=== PATIENT | female | born 1935 | race Caucasian/White ===

== ENCOUNTER → 2017-01-15 | Outpatient (CLI) | payer BC ==
[~2017-01-15] MED LIST: ALBU1AER9 INH; ASPCH81X PO; ATOR10TA82 PO; CHOL2000 PO; FLUT0.15; GLIM1TAB PO; LEVO100T7 PO; LSN/10125 PO; METF-383 PO; VRPSR180 PO; ZINC PO
--- NOTE | 2017-01-15 16:09 | MAMMOGRAPHY REPORT ---
BILATERAL DIGITAL SCREENING MAMMOGRAM WITH CAD: 01/15/2017 CLINICAL HISTORY: Routine screening. Patient has no complaints. TECHNIQUE: Current study was also evaluated with a Computer Aided Detection (CAD) system. Bilatera l CC and MLO views were obtained. COMPARISON: Comparison is made to exams dated: 01/14/2016 mammogram, 01/11/2015 mammogram, 11/15/2013 mammogram, 11/11/2011 mammogram, 11/14/2012 mammogram, and 11/10/2010 mammogram - [facility]. BREAST COMPOSITION: There are scattered areas of fibroglandular density in both breasts. FINDINGS: No suspicious masses, calcifications, or areas of architectural distortion are noted in e ither breast. There has been no significant interval change compared to prior exams. There is a sta ble benign intramammary lymph node within the left superior breast. IMPRESSION: ACR BI-RADS CATEGORY 2: BENIGN There is no mammographic evidence of malignancy. A 1 year screening mammogram is recommended. The p atient will receive written notification of the results. Approximately 10% of breast cancers are not detected with mammography. A negative mammographic repor t should not delay biopsy if a clinically suggestive mass is present. Rachel Clements M.D. /:01/15/2017 15:53:53 Die Hardener: Nayana Car, [facility] letter sent: Normal 1/2 BI-RADS Code: ACR BI-RADS Category 2: Benign
== END | disposition home or self-care (01) ==
LOC: C.MAMM 13:11
PROVIDERS: ATTEND Family Medicine
DX: Z12.31 Encounter for screening mammogram for malignant neoplasm of breast (principal)

== ENCOUNTER → 2018-01-17 | Outpatient (CLI) | payer BC ==
--- NOTE | 2018-01-18 12:45 | MAMMOGRAPHY REPORT ---
BILATERAL DIGITAL SCREENING MAMMOGRAM TOMOSYNTHESIS WITH CAD: 01/17/2018 CLINICAL HISTORY: Routine screening. Patient has no complaints. TECHNIQUE: Breast tomosynthesis in addition to standard 2D mammography was performed. Current study was also evaluated with a Computer Aided Detection (CAD) system. COMPARISON: Comparison is made to exams dated: 01/15/2017 mammogram, 01/14/2016 mammogram, 01/11/2015 m ammogram, 11/15/2013 mammogram, 11/14/2012 mammogram, and 11/11/2011 mammogram - [facility]. BREAST COMPOSITION: There are scattered areas of fibroglandular density in both breasts. FINDINGS: There is a gently lobulated and circumscribed 15 mm mass in the 12:00 posterior left breas t. This most likely represents an intramammary lymph node but appears slightly increased in size on the current exam when comparing to all available prior exams dating back to at least 2008, at which t hailee it measured approximately 12 mm. Although the differences may be due to positioning and technica l parameters, further characterization with targeted ultrasound and possible additional mammographic views are recommended. There are benign coarse calcifications in the left breast and minimal vascular calcification bilatera lly. No other suspicious mass, architectural distortion or cluster of microcalcifications is seen. IMPRESSION: ACR BI-RADS CATEGORY 0: INCOMPLETE EVALUATION: NEED ADDITIONAL IMAGING EVALUATION The 15 mm lymph node in the 12:00 left breast, which is possibly increased comparing to prior mammogr ams, needs additional evaluation. The patient will be called to schedule an appointment. Approximately 10% of breast cancers are not detected with mammography. A negative mammographic report should not delay biopsy if a clinically suggestive mass is present. Jennifer Del Real M.D. ay/:01/17/2018 15:53:46 Immigration Lawyer: Nayana ELIAS(Greg)(Elisa), [facility] letter sent: Addl Imaging 0 BI-RADS Code: ACR BI-RADS Category 0: Incomplete Evaluation: Need Additional Imaging Evaluation
== END | disposition home or self-care (01) ==
LOC: C.MAMM 13:23
PROVIDERS: ATTEND Family Medicine
DX: Z12.31 Encounter for screening mammogram for malignant neoplasm of breast (principal); R59.0 Localized enlarged lymph nodes

== ENCOUNTER → 2018-01-26 | Outpatient (CLI) | payer BC ==
--- NOTE | 2018-01-28 07:50 | MAMMOGRAPHY REPORT ---
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 COMPARISON: Comparison is made to exams dated: 01/17/2018 mammogram, 01/15/2017 mammogram, 01/14/2016 m ammogram, 01/11/2015 mammogram, 11/15/2013 mammogram, and 11/14/2012 mammogram - [facility]. FINDINGS: Targeted ultrasound was performed in the superior left breast from the 11:00 through 2:00 a xes, with particular attention to the 12:00 left breast in the area of lobulated and circumscribed ma mmographic mass which was found to measure 16 x 6 x 7 mm on the current screening mammogram. There i s a morphologically normal lymph node in the left axilla measuring 10 mm, within the cortex of 1 mm. A serpiginous tubular vessel is identified in the 12:00 left breast approximately 6 cm from the nipp le but no obvious mass is identified. Overall there is no hypoechoic mass suggestive of malignancy. After the patient left the department review of prior electronic medical records revealed the patient had a prior hemangioma in the left breast which was surgically excised and this was reportedly ultra sound occult. When comparing back to prior available mammograms, this current lobulated and circumscribed mass was present dating back to at least 2007 but has minimally increased in size. It was found to measure 14 mm in AP dimension on a spot compression view performed 05/09/2008. IMPRESSION: ACR-BI-RADS CATEGORY 3: PROBABLY BENIGN - FOLLOW-UP RECOMMENDED There is a gently lobulated and circumscribed 16mm mass in the 12:00 posterior left breast mammograph ically that has minimally increased in size over the past 10 years based on prior mammograms. It is not identified on ultrasound but was previously reportedly ultrasound occult. This most likely repre sents recurrent and/or residual hemangioma which is a benign mass. Therefore, a short interval follo w-up left diagnostic tomosynthesis mammogram is recommended to ensure stability, given the possible s low interval increase over years. These results and recommendations were discussed with the patient and her daughter at the time of the exam. They tentatively scheduled a follow-up appointment prior to leaving the department. Jennifer Del Real M.D. ay/:01/26/2018 15:57:52 Detective Private Eye: Raegan SCHAFER)Enrique), [facility] letter sent: Follow Up Recommended 3 BI-RADS Code: ACR-BI-RADS Category 3: Probably Benign
== END | disposition home or self-care (01) ==
LOC: C.MAMM 12:52
PROVIDERS: ATTEND Family Medicine
DX: N63.20 Unspecified lump in the left breast, unspecified quadrant (principal)

== ENCOUNTER → 2018-04-20 | Outpatient (CLI) | payer BC ==
[~2018-04-20] MED LIST changes: -ALBU1AER9 INH; -ASPCH81X PO; +ASPI81TA28 PO; -ATOR10TA82 PO; -FLUT0.15; +FLUT0.15 NAE; -GLIM1TAB PO; +GLIM2TAB2 PO; -METF-383 PO; +ONDA4TAB10 SL; +VANC5CAP PO; -ZINC PO; +ZINC1TAB PO; +ZNF/4 PO
== END | disposition home or self-care (01) ==
LOC: C.LABSPEC 10:25
PROVIDERS: ATTEND Urology
DX: N39.0 Urinary tract infection, site not specified (principal)

== ENCOUNTER 2018-10-31 13:58 | Inpatient (IN) ==
[2018-10-31] MEDS ORDERED: ALUMINUM/MAGNESIUM SUSP 18 ML, LIDOCAINE HCL VISCOUS 2% 6 ML, BARCODE IDENTIFIER 1 EA PO ONE (15:15)
[2018-10-31] MEDS ORDERED: FAMOTIDINE 20 MG TAB PO ONE (15:15)
[2018-10-31] MEDS ORDERED: ONDANSETRON INJ 2 MG/ML 2 ML VIAL IV STA (15:15)
[2018-10-31 15:59] LABS: Hematocrit (blood only) 34.3 % (37-47); Mean Corpuscular Hgb Conc 32.1 g/dL (32-36); Mean Corpuscular Volume 80.1 fL (80-100); Mean Platelet Volume 10.2 fL (7.4-10.4); Platelet Count 263 K/uL (130-400); RDW Coefficient of Variation 15.3 % (11.5-14.5); RDW Standard Deviation 44.8 fL (36.4-46.3); Red Blood Count 4.28 M/uL (4.2-5.4); White Blood Count 23.91 K/uL (4.8-10.8)
[2018-10-31 16:11] LABS: Alanine Aminotransferase 15 U/L (12-78); Albumin Level 3.8 gm/dl (3.4-5.0); Aspartate Aminotransferase 19 U/L (15-37); BUN Creatinine Ratio 18.4 (10-20); Blood Urea Nitrogen 39 mg/dl (7-18); Calcium 8.9 mg/dl (8.5-10.1); Carbon Dioxide 26 mmol/L (21-32); Chloride 101 mmol/L (98-107); Creatinine Clr Calc Pharmacy 16.2 ml/min; Est GFR (African American) 23.9; Est GFR (Non-African American) 20.6; Glucose 246 mg/dl (70-99); Potassium 4.4 mmol/L (3.5-5.1); Sodium 133 mmol/L (136-145)
[2018-10-31 16:15] LABS: Albumin Globulin Ratio 1.1 (0.9-2); Alkaline Phosphatase 102 U/L (45-117); Bilirubin,Total 0.5 mg/dl (0.2-1); Globulin 3.4 gm/dl (2.5-4.0); Total Protein 7.2 gm/dl (6.4-8.2); Troponin I < 0.015 ng/ml (0-0.045)
[2018-10-31] MEDS ORDERED: SODIUM CHLORIDE 0.9% 1000ML 1,000 ML IV ONE (16:18)
[2018-10-31 16:30] LABS: Basophils # (auto) 0.04 K/uL (0-0.2); Basophils % (auto) 0.2 %; Eosinophils # (auto) 0.14 K/uL (0-0.5); Eosinophils % (auto) 0.6 %; Immature Granulocytes # (auto) 0.14 K/uL (0.00-0.02); Immature Granulocytes % (auto) 0.6 %; Lymphocytes # (auto) 1.52 K/uL (1.2-3.4); Lymphocytes % (auto) 6.4 %; Monocytes # (auto) 1.58 K/uL (0.11-0.59); Monocytes % (auto) 6.6 %; Neutrophils # (auto) 20.49 K/uL (1.4-6.5); Neutrophils % (auto) 85.6 %
[2018-10-31] MEDS ORDERED: LIDOCAINE HCL VISCOUS SOLN 2% 15 ML UDC ONE (16:31)
[2018-10-31] MEDS ORDERED: ALUMINUM/MAGNESIUM SUSP 30 ML UDC ONE (16:32)
--- NOTE | 2018-10-31 17:30 | CT Scan Report ---
CT SCAN OF THE ABDOMEN AND PELVIS WITHOUT IV CONTRAST CLINICAL HISTORY: Epigastric abdominal pain. Leukocytosis. COMPARISON STUDY: Abdominal CT dated 02/21/2018 TECHNIQUE: CT scan of the abdomen and pelvis is performed from the lung bases to the proximal femora. Images are reviewed in the axial, sagittal, and coronal planes. IV contrast was not administered for this examination as per the referring clinician. Note that the examination was performed in signific antly suboptimal fashion without oral and IV contrast. A dose lowering technique was utilized adherin g to the principles of ALARA. CT DOSE: 444.70 mGy.cm FINDINGS: Lung bases: The heart is normal in size and without pericardial effusion. The coronary arteries and m itral annulus are densely calcified. The lung bases are clear noting bibasilar scarring/atelectasis. Liver: The unenhanced liver is normal in size, contour, and attenuation. There is mild central intrah epatic biliary ductal dilatation. Gallbladder: Surgically absent. Spleen: Normal in size and attenuation. Pancreas: The unenhanced pancreas is atrophic and grossly unremarkable. Adrenal glands: Unremarkable. Kidneys: The unenhanced kidneys are atrophic and without hydronephrosis. There are no renal calculi i dentified. There is no evidence of contour deforming renal mass lesion. Abdominal vasculature: The abdominal aorta is normal in course and caliber noting advanced atheroscle rotic calcification. Bowel: There is moderate colonic diverticulosis without CT evidence of acute diverticulitis. No bowel obstruction is identified. Liquid stool is noted throughout the colon. The appendix is well-visuali zed and normal. Peritoneum: There is no intraperitoneal free air or abdominal ascites. Postoperative change is noted in the ventral abdominal wall. Lymphadenopathy: None. Pelvic viscera: The bladder wall is mildly thickened and there is faint pericystic stranding. The malia carlos is surgically absent. No adnexal lesion is seen. Skeletal structures: The skeletal structures are osteopenic. There is moderate lumbosacral spondylosi s and scoliosis. No lytic or blastic lesions are seen. IMPRESSION: 1. Significantly suboptimal examination without oral and IV contrast. 2. Liquid stool is noted throughout the colon. There is no colonic wall thickening or pericolonic inf lammation. Correlate clinically for evidence of a diarrheal illness. 3. Question cystitis. Correlation with clinical findings and urinalysis will be required. 4. Moderate colonic diverticulosis without CT evidence of acute diverticulitis. 5. Additional findings as above. Electronically signed by: Dion Brady M.D. 10/31/2018 5:28 PM
[2018-10-31] MEDS ORDERED: cefTRIAXone SODIUM 1,000 MG/50 ML BAG IV STA (17:44)
[2018-10-31 18:12] LABS: Appearance Urine Turbid (Clear); Bacteria Urine Automated 4+ (Negative); Bilirubin Urine Negative (Negative); Color Urine Yellow; Epithelial Cell Urine Auto >30 /lpf (0-5); Glucose Urine UA Negative (Negative); Ketones Urine Negative (Negative); Leukocyte Esterase Urine 3+ (Negative); Nitrite Urine Negative (Negative); Protein Urine 1+ (Negative); Specific Gravity Urine 1.015 (1.000-1.030); Urobilinogen Urine Negative (Negative); WBC Urine Automated >30 /hpf (0-5); pH Urine 5.5 (4.5-7.5)
--- NOTE | 2018-10-31 19:42 | History & Physical Report ---
Date of Service October 31, 2018 Assessment & Plan (1) UTI (urinary tract infection): This is a 83-year-old female who has a significant past medical history of T2 DM , HTN, HLD, CKD stage III, hypothyroidism who presents to [facility] secondary to nausea, emesis, loose stool times 1 day. In ED patient was noted to have leucocytosis with wbc 23.91k, A/C CKD stage 3 bun 39/Cr 2.14, glucose 236, NA 133. Her troponin, lipase and LFT were unremarkable. She did have mild epigastric discomfort in ED; therefore given Pepcid Urine dirty with leuks and +4 bacturia, microscopic hematuria CT Abd/Pelvis +cystitis, no evidence of colitis or diverticulitis Received 1g rocephin in ED along with 1L IVF -admit to med/surg telemetry -continue IVF NS at 80cc/hr -check stool for cdiff -await urine culture/blood culture -add probiotic -continue IVF 80cc/hr x 1 L -repeat cbc, bmp in a.m. (2) Acute worsening of stage 3 chronic kidney disease: -baseline Cr 1.2 -Bun/Cr today 39 and 2.14 -likely in setting of pre renal, GI loss -hold lisinopril/hctz -Received 1L IVF IN ED; will continue IVF NS 80cc/hr x 1 additonal liter -repeat bmp in a.m. (3) Generalized weakness: -consult PT/OT (4) T2DM (type 2 diabetes mellitus): -A1C 7.1 on 09/08/18 -Novolog sliding scale per protocol -Nursing did accucheck at 1940 bsg 134 (5) HTN (hypertension): -blood pressure on low side this evening -will hold lisinopril/hctz given CRISPIN, continue verapamil with parameters -monitor (6) Hypothyroidism: -continue levothyroxine (7) DVT prophylaxis: -Heparin SQ 5,000 units Q12hr Disposition: likely discharge to home when able but will consult case management Follow up: PCP Dr. Pina upon discharge Patient was seen in collaboration with Dr. Dennis, please see addendum Starting 10/31/18 patient will be followed by Dr. Farrar History of Present Illness Chief Complaint: Nausea, emesis, loose stool x 1 day. Primary Care Provider: Luis Whalen This is a 83-year-old female who has a significant past medical history of T2 DM , HTN, HLD, CKD stage III, hypothyroidism who presents to [facility] secondary to nausea, emesis, loose stool times 1 day. Patient was in her normal state of health until 11 AM today when she developed nausea, dry heaves, emesis x1 and loose stool x1. "It was coming out both ends." "Why does this always come on so sudden?" Pt has history of UTI in past and follows Dr. Harrington urology who recently started her on flomax. She hasn't had episode in 4- 5 months. Last time she had similar sx she was dx with cdiff after a UTI treatment. She states usually when she gets a UTI she is asymptomatic. She denies f/c/s, dizziness, lightheaded, chest pain, sob, palpitations, hemetemesis , hemoptysis, abdominal pain, dysuria, hematuria, flank pain, increased urg/ freq with urination, melena. Episode of loose stool was x 1. Daughter is at bedside. Allergies Allergy/AdvReac Type Severity Reaction Status Date / Time Bactrim Allergy Intermediate Rash Verified 02/21/18 20:57 sulfamethoxazole Allergy Intermediate Rash Verified 10/31/18 15:56 trimethoprim Allergy Intermediate Rash Verified 10/31/18 15:56 tetanus toxoid, adsorbed Allergy Unknown HIVES Verified 10/31/18 15:56 tetracycline Allergy Unknown hives Verified 10/31/18 15:56 rosuvastatin AdvReac Intermediate Muscle Verified 10/31/18 15:56 stiffness Home Medications Home Medications Medication Instructions Recorded Confirmed Type aspirin [Aspirin Low Dose] 81 mg PO 3XWK 10/31/18 10/31/18 History cholecalciferol (vitamin D3) 2,000 unit PO DAILY 10/31/18 10/31/18 History [Vitamin D3] escitalopram oxalate 10 mg PO DAILY 10/31/18 10/31/18 History fluticasone [Flonase Allergy 2 spray INTRANASAL HS 10/31/18 10/31/18 History Relief] glimepiride 2 mg PO BID 10/31/18 10/31/18 History levothyroxine 100 mcg PO DAILY 10/31/18 10/31/18 History lisinopril-hydrochlorothiazide 1 tab PO DAILY 10/31/18 10/31/18 History tamsulosin [Flomax] 0.4 mg PO HS 10/31/18 10/31/18 History tizanidine 4 mg PO HS 10/31/18 10/31/18 History verapamil 180 mg PO DAILY 10/31/18 10/31/18 History zinc gluconate 12.5 mg PO DAILY 10/31/18 10/31/18 History Past Med/Surg History Family History Mother Breast cancer HTN (hypertension) Father , at 92 No problems noted. Social History Current Living Situation: Alone Other Information That Helps Us Care for You: No other: ambulates with cane Feels Safe at Home: Yes Safety Concerns: Feels Safe At This Time Smoking Status: Never smoker Do You Dip or Chew Tobacco: No Hx Alcohol Use: No Hx Substance Use: No Beliefs That Will Affect Care: Confucianist Confucianist Beliefs: Druze Preferred Language: Citizen Of [place] Communication Ability: Effective Adjunct Phlebotomy Instructor Required: No Review of Systems All systems reviewed & are unremarkable except as noted in HPI & below Physical Exam 2 Vital Signs (Past 24 Hours): Last Vital Signs Temp 36.4 C L 10/31/18 14:07 Pulse 66 10/31/18 18:00 Resp 17 10/31/18 18:00 BP 108/72 10/31/18 18:00 Pulse Ox 90 10/31/18 16:30 Physical Exam: Gen: Petite, elderly F, WD/WN, NAD, sitting up in bed, pleasant , conversing easily Head: Normocephalic, Atraumatic Eyes: Sclera normal, no conjunctival injection, PERRLA, EOMI ENT: Gross hearing intact, normal pharynx, mucous membranes moist Neck: supple, no adenopathy, No JVD, no bruit, Resp: Clear to auscultation b/l, no wheeze, rales, rhonchi. Normal insp/exp effort, no accessory muscle use CV: Regular rate, regular rhythm, soft 1/6 MAXWELL noted LUSB with radiation to L axilla, no rub, gallop, or ectopy Abd: +BS x 4, soft, nontender, mildly distended, no cva tenderness Musculoskeletal: moves extremities active rom x 4, strength intact, good document control clerk strength Extremities: No edema bilaterally Skin: warm, moist, no rash, moderate turgor, cap refill < 2sec Neuro: Alert and oriented x 3, speech normal, good mood/affect, cran nerve 2-12 intact grossly : deferred Results & Data Laboratory Results Short CBC 10/31/18 10/31/18 Range/Units 15:40 15:40 WBC 23.91 H (4.8-10.8) K/uL Hgb 11.0 L (12.0-16.0) g/dL Hct 34.3 L (37-47) % Plt Count 263 (130-400) K/uL Creatinine 2.14 H (0.6-1.2) mg/dl Glucose 246 H (70-99) mg/dl BMP 10/31/18 15:40 Sodium 133 L Potassium 4.4 Chloride 101 Carbon Dioxide 26 BUN 39 H Creatinine 2.14 H Glucose 246 H Calcium 8.9 Cardiac Enzymes 10/31/18 Range/Units 15:40 Troponin I < 0.015 (0-0.045) ng/ml Liver Function 10/31/18 Range/Units 15:40 Total Bilirubin 0.5 (0.2-1) mg/dl AST 19 (15-37) U/L ALT 15 (12-78) U/L Alkaline Phosphatase 102 (45-117) U/L Albumin 3.8 (3.4-5.0) gm/dl Urine 10/31/18 Range/Units 17:50 Urine Color Yellow Urine Appearance Turbid H (Clear) Urine pH 5.5 (4.5-7.5) Ur Specific [place] 1.015 (1.000-1.030) Urine Protein 1+ H (Negative) Urine Glucose (UA) Negative (Negative) Diagnostic Findings CT Abd/pelvis: IMPRESSION: 1. Significantly suboptimal examination without oral and IV contrast. 2. Liquid stool is noted throughout the colon. There is no colonic wall thickening or pericolonic inflammation. Correlate clinically for evidence of a diarrheal illness. 3. Question cystitis. Correlation with clinical findings and urinalysis will be required. 4. Moderate colonic diverticulosis without CT evidence of acute diverticulitis. 5. Additional findings as above. ECG Rate (beats per minute): 74 Rhythm: sinus with SA Findings: + left axis deviation Code Status & VTE Plan Code Status Full Code VTE Prophylaxis Plan VTE Prophylaxis will be ordered: Yes Supervising Physician Co-Signing Physician Notes Agree with above H and P. Briefly 83F with hx of recurrent uti follows with urology and hx of c diff post uti treatment presnts with episode of nausea and one episode of vomiting nad diarrhea. No Badominal pain. Afebrile. No chest pain or sob.Found to have UTI in Er. p/e ge not in distress Cvs s1 and s2 heard no murmurs Rs cta b/l no added sounds Abd benign Compensation And Benefits Manager non focal Ext no erythema Labs: Reviewed. A/P Uti cystitis on ct scan Rocephin follow cx leukocytosis wbc 24 on abx as abobe for uti hx of c diff check for c diff _ (1) UTI (urinary tract infection) Hematuria presence: with hematuria Urinary tract infection type: acute cystitis Qualified Code(s): N30.01 - Acute cystitis with hematuria (2) T2DM (type 2 diabetes mellitus) Chronic kidney disease stage: stage 3 (moderate) Diabetes mellitus complication detail: with chronic kidney disease Diabetes mellitus complication status: with kidney complications Diabetes mellitus dedicated intermodal truck driver insulin use: without dedicated intermodal truck driver use Qualified Code(s): E11.22 - Type 2 diabetes mellitus with diabetic chronic kidney disease; N18.3 - Chronic kidney disease, stage 3 (moderate) (3) Hypothyroidism Hypothyroidism type: unspecified Qualified Code(s): E03.9 - Hypothyroidism, unspecified (4) HTN (hypertension) Hypertension type: essential hypertension Qualified Code(s): I10 - Essential (primary) hypertension
[2018-10-31] MEDS ORDERED: ACETAMINOPHEN 325 MG TAB PO PRN (21:39)
[2018-10-31] MEDS ORDERED: CARBOHYDRATES FOR HYPOGLYCEMIA PO PRN (21:39)
[2018-10-31] MEDS ORDERED: GLUCOSE 40% GEL 15 GM TUBE PO PRN (21:39)
[2018-10-31] MEDS ORDERED: ONDANSETRON INJ 2 MG/ML 2 ML VIAL IV PRN (21:39)
[2018-10-31] MEDS ORDERED: DEXTROSE 50% 50 ML SYRINGE IV PRN (21:39)
[2018-10-31] MEDS ORDERED: GLUCOSE 10 TABS/TUBE PO PRN (21:39)
[2018-10-31] MEDS ORDERED: GLUCAGON FOR INJ 1 MG VIAL SQ PRN (21:39)
[2018-10-31] MEDS ORDERED: SODIUM CHLORIDE 0.9% 1000ML 1,000 ML IV SCH (22:30)
--- NOTE | 2018-10-31 22:30 | Emergency Department Note ---
Entered by Darain Morris acting as a scribe for History of Present Illness General Chief complaint: Flu Like Symptoms Stated complaint: THROWING UP, DIARRHEA,SHAKEY Time Seen by Provider: 10/31/18 14:52 Source: patient and family (daughter) History of Present Illness Provider complaint: flu-like symptoms Onset (ago): day(s) (today around 1100) Location: head (general) Severity: similar to prior episodes Pain Consistency: + other (sudden) Maximum Pain Intensity: 0 Quality: + other (flu-like symptoms) Associated symptoms: + denies other symptoms (leg swelling, diarrhea), + nausea/ vomiting, + weakness and + other (chest discomfort, nasal congestion); no cough The patient is an 83 year old white female w/ PMHx of acute renal failure, diabetes, and C. diff who presents to the ED w/ CC of sudden flu-like symptoms beginning today around 1100. The patient states that she has had episodes of nausea, vomiting, dry heaving, and generalized weakness. She denies experiencing any diarrhea. The patient denies having a productive cough, or swelling in her legs, but admits to nasal congestion. She also reports that she has minimal chest discomfort from dry heaving. The patient's daughter reports that the patient often has has stomach episodes where the patient becomes extremely weak and states that the last time this happened the patient was diagnosed with C. diff. She reports that this is similar to the patient's prior episodes. The patient states that she has had her flu shot and denies being around people who have been sick with similar symptoms. The patient states that the last time she was in the ER her medications were switched and she was prescribed tamsulosin. She denies any recent antibiotic use. She denies any recent travelling and states she was a former smoke over 50 years ago. Home Medications Home Medications Medication Instructions Recorded Confirmed Type aspirin [Aspirin Low Dose] 81 mg PO 3XWK 10/31/18 10/31/18 History cholecalciferol (vitamin D3) 2,000 unit PO DAILY 10/31/18 10/31/18 History [Vitamin D3] escitalopram oxalate 10 mg PO DAILY 10/31/18 10/31/18 History fluticasone [Flonase Allergy 2 spray INTRANASAL HS 10/31/18 10/31/18 History Relief] glimepiride 2 mg PO BID 10/31/18 10/31/18 History levothyroxine 100 mcg PO DAILY 10/31/18 10/31/18 History lisinopril-hydrochlorothiazide 1 tab PO DAILY 10/31/18 10/31/18 History tamsulosin [Flomax] 0.4 mg PO HS 10/31/18 10/31/18 History tizanidine 4 mg PO HS 10/31/18 10/31/18 History verapamil 180 mg PO DAILY 10/31/18 10/31/18 History zinc gluconate 12.5 mg PO DAILY 10/31/18 10/31/18 History Allergies Allergy/AdvReac Type Severity Reaction Status Date / Time Bactrim Allergy Intermediate Rash Verified 02/21/18 20:57 sulfamethoxazole Allergy Intermediate Rash Verified 10/31/18 15:56 trimethoprim Allergy Intermediate Rash Verified 10/31/18 15:56 tetanus toxoid, adsorbed Allergy Unknown HIVES Verified 10/31/18 15:56 tetracycline Allergy Unknown hives Verified 10/31/18 15:56 rosuvastatin AdvReac Intermediate Muscle Verified 10/31/18 15:56 stiffness Past Med/Surg History Family History Mother Breast cancer HTN (hypertension) Father , at 92 No problems noted. Social History Current Living Situation: Alone Other Information That Helps Us Care for You: No other: ambulates with cane Feels Safe at Home: Yes Safety Concerns: Feels Safe At This Time Smoking Status: Never smoker Do You Dip or Chew Tobacco: No Hx Alcohol Use: No Hx Substance Use: No Beliefs That Will Affect Care: Sabianist Sabianist Beliefs: Doroteo Preferred Language: [place]ian Communication Ability: Effective Knot Picker Cloth Required: No Review of Systems See HPI for pertinent positives & negatives. and A total of 10 systems reviewed and were otherwise negative Physical Exam Vital Signs Vital Signs - 24 hr 10/31/18 14:07 10/31/18 14:59 10/31/18 15:01 Temperature 36.4 C L Temperature Source Oral Sepsis Recent Fever Within 48 Hours No Sepsis New/Unexplained Change in Mental Status No Sepsis Action Taken by Nursing No Action Required Pulse Rate 79 69 Pulse Rate [Finger] 71 Respiratory Rate 18 21 18 Respiratory Effort / Characteristics Non-Labored Spontaneous Respiratory Depth Normal Respiratory Pattern Regular Blood Pressure 120/49 L 122/45 L Blood Pressure [Left Arm] 122/45 L Blood Pressure Mean 72 70 Blood Pressure Mean [Left Arm] 70 Blood Pressure Position Sitting Pulse Oximetry 95 97 97 Oxygen Delivery Method Room Air Room Air 10/31/18 15:18 10/31/18 15:44 10/31/18 16:00 Temperature Temperature Source Sepsis Recent Fever Within 48 Hours Sepsis New/Unexplained Change in Mental Status Sepsis Action Taken by Nursing Pulse Rate 77 75 73 Pulse Rate [Finger] Respiratory Rate 17 19 23 Respiratory Effort / Characteristics Respiratory Depth Respiratory Pattern Blood Pressure Blood Pressure [Left Arm] Blood Pressure Mean Blood Pressure Mean [Left Arm] Blood Pressure Position Pulse Oximetry 96 98 Oxygen Delivery Method 10/31/18 16:24 10/31/18 16:30 10/31/18 16:40 Temperature Temperature Source Sepsis Recent Fever Within 48 Hours Sepsis New/Unexplained Change in Mental Status Sepsis Action Taken by Nursing Pulse Rate 78 73 Pulse Rate [Finger] Respiratory Rate 20 17 Respiratory Effort / Characteristics Respiratory Depth Respiratory Pattern Blood Pressure 101/43 L Blood Pressure [Left Arm] 101/43 L Blood Pressure Mean 62 Blood Pressure Mean [Left Arm] 62 Blood Pressure Position Pulse Oximetry 96 90 90 Oxygen Delivery Method Room Air 10/31/18 16:41 10/31/18 16:50 10/31/18 17:00 Temperature Temperature Source Sepsis Recent Fever Within 48 Hours Sepsis New/Unexplained Change in Mental Status Sepsis Action Taken by Nursing Pulse Rate 76 68 69 Pulse Rate [Finger] Respiratory Rate 19 16 18 Respiratory Effort / Characteristics Respiratory Depth Respiratory Pattern Blood Pressure Blood Pressure [Left Arm] Blood Pressure Mean Blood Pressure Mean [Left Arm] Blood Pressure Position Pulse Oximetry 86 L 93 89 L Oxygen Delivery Method 10/31/18 17:22 10/31/18 17:30 10/31/18 17:51 Temperature Temperature Source Sepsis Recent Fever Within 48 Hours Sepsis New/Unexplained Change in Mental Status Sepsis Action Taken by Nursing Pulse Rate 67 66 Pulse Rate [Finger] Respiratory Rate 23 18 13 Respiratory Effort / Characteristics Respiratory Depth Respiratory Pattern Blood Pressure Blood Pressure [Left Arm] Blood Pressure Mean Blood Pressure Mean [Left Arm] Blood Pressure Position Pulse Oximetry Oxygen Delivery Method 10/31/18 18:00 10/31/18 18:10 10/31/18 18:21 Temperature Temperature Source Sepsis Recent Fever Within 48 Hours Sepsis New/Unexplained Change in Mental Status Sepsis Action Taken by Nursing Pulse Rate 66 65 67 Pulse Rate [Finger] 66 Respiratory Rate 19 17 15 Respiratory Effort / Characteristics Respiratory Depth Respiratory Pattern Blood Pressure Blood Pressure [Left Arm] 108/72 Blood Pressure Mean Blood Pressure Mean [Left Arm] 84 Blood Pressure Position Pulse Oximetry Oxygen Delivery Method 10/31/18 18:30 10/31/18 18:40 10/31/18 18:51 Temperature Temperature Source Sepsis Recent Fever Within 48 Hours Sepsis New/Unexplained Change in Mental Status Sepsis Action Taken by Nursing Pulse Rate 66 67 67 Pulse Rate [Finger] Respiratory Rate 18 19 21 Respiratory Effort / Characteristics Respiratory Depth Respiratory Pattern Blood Pressure Blood Pressure [Left Arm] Blood Pressure Mean Blood Pressure Mean [Left Arm] Blood Pressure Position Pulse Oximetry Oxygen Delivery Method 10/31/18 19:00 10/31/18 19:10 10/31/18 19:21 Temperature Temperature Source Sepsis Recent Fever Within 48 Hours Sepsis New/Unexplained Change in Mental Status Sepsis Action Taken by Nursing Pulse Rate 64 68 67 Pulse Rate [Finger] Respiratory Rate 16 18 18 Respiratory Effort / Characteristics Respiratory Depth Respiratory Pattern Blood Pressure Blood Pressure [Left Arm] Blood Pressure Mean Blood Pressure Mean [Left Arm] Blood Pressure Position Pulse Oximetry Oxygen Delivery Method 10/31/18 19:30 10/31/18 19:39 10/31/18 19:40 Temperature Temperature Source Sepsis Recent Fever Within 48 Hours Sepsis New/Unexplained Change in Mental Status Sepsis Action Taken by Nursing Pulse Rate 70 65 65 Pulse Rate [Finger] Respiratory Rate 19 17 16 Respiratory Effort / Characteristics Respiratory Depth Respiratory Pattern Blood Pressure 93/44 L Blood Pressure [Left Arm] Blood Pressure Mean 60 Blood Pressure Mean [Left Arm] Blood Pressure Position Pulse Oximetry 90 97 Oxygen Delivery Method 10/31/18 19:51 10/31/18 20:00 10/31/18 20:10 Temperature Temperature Source Sepsis Recent Fever Within 48 Hours Sepsis New/Unexplained Change in Mental Status Sepsis Action Taken by Nursing Pulse Rate 67 64 64 Pulse Rate [Finger] Respiratory Rate 24 17 13 Respiratory Effort / Characteristics Respiratory Depth Respiratory Pattern Blood Pressure Blood Pressure [Left Arm] Blood Pressure Mean Blood Pressure Mean [Left Arm] Blood Pressure Position Pulse Oximetry 92 94 95 Oxygen Delivery Method 10/31/18 20:20 10/31/18 20:24 10/31/18 20:31 Temperature Temperature Source Sepsis Recent Fever Within 48 Hours Sepsis New/Unexplained Change in Mental Status Sepsis Action Taken by Nursing Pulse Rate 62 64 Pulse Rate [Finger] Respiratory Rate 16 19 Respiratory Effort / Characteristics Non-Labored Spontaneous Respiratory Depth Normal Respiratory Pattern Regular Blood Pressure Blood Pressure [Left Arm] Blood Pressure Mean Blood Pressure Mean [Left Arm] Blood Pressure Position Pulse Oximetry 96 95 Oxygen Delivery Method Room Air 10/31/18 20:40 10/31/18 20:48 10/31/18 20:49 Temperature Temperature Source Sepsis Recent Fever Within 48 Hours Sepsis New/Unexplained Change in Mental Status Sepsis Action Taken by Nursing Pulse Rate 62 64 66 Pulse Rate [Finger] Respiratory Rate 18 21 16 Respiratory Effort / Characteristics Respiratory Depth Respiratory Pattern Blood Pressure 99/45 L Blood Pressure [Left Arm] Blood Pressure Mean 63 Blood Pressure Mean [Left Arm] Blood Pressure Position Pulse Oximetry 97 96 97 Oxygen Delivery Method GENERAL: Well appearing, well nourished, NAD, non-toxic. EYE EXAM: Normal conjunctiva. PERRL, no anisocoria and EOM's grossly intact w/o pain. OROPHARYNX: Dry mucus membranes. NECK: Supple, no nuchal rigidity, no adenopathy, non-tender. No signs of meningismus. LUNGS: Clear to auscultation bilaterally. Normal chest wall mechanics. HEART: NSR, no MRG. ABDOMEN: Abdomen soft, epigastric discomfort, normo-active bowel sounds, no masses, no rebound or guarding. BACK: No CVA TTP. SKIN: No rashes and no bruising. UPPER EXTREMITIES: Upper extremities are grossly normal. LOWER EXTREMITIES: No pitting edema. No calf pain. NEURO EXAM: And O x3, normal speech, moves all 4 extremities on command w/o issue. Course 1506: Past medical records reviewed. The patient was evaluated in room A8, and a complete history and physical examination were performed. 1854: I reviewed the patient's case with Reese Nuñez PA-C. [facility] will evaluate the patient for further management. Consultations Consultation #1: Reese Nuñez PA-C [facility] Time: 18:54 Administered Medications Discontinued Medications Al Hydrox/Mg Hydrox/Simethicone (Maalox) Confirm Administered Dose 30 ml .ROUTE .STK-MED ONE Stop: 10/31/18 16:33 Last Admin: 10/31/18 16:33 Dose: Not Given Al Hydrox/Mg Hydrox/Simethicone 18 ml/ Lidocaine HCl 6 ml/ BARCODE IDENTIFIER 1 ea 0 ml PO ONE ONE Stop: 10/31/18 15:16 Last Admin: 10/31/18 16:33 Dose: 45 ml Famotidine (Pepcid) 20 mg PO NOW ONE Stop: 10/31/18 15:16 Last Admin: 10/31/18 16:30 Dose: 20 mg Sodium Chloride (Nss 1000ml) 1,000 mls @ 999 mls/hr IV .Q1H1M ONE Stop: 10/31/18 17:18 Last Infusion: 10/31/18 17:59 Dose: 0 mls/hr Admin: 10/31/18 16:30 Dose: 999 mls/hr Ceftriaxone Sodium (Rocephin) 1,000 mg in 50 mls @ 100 mls/hr IV NOW STA Stop: 10/31/18 18:13 Last Infusion: 10/31/18 18:27 Dose: 0 mls/hr Admin: 10/31/18 17:57 Dose: 100 mls/hr Lidocaine HCl (Viscous Lidocaine 2%) Confirm Administered Dose 15 ml .ROUTE .STK -MED ONE Stop: 10/31/18 16:32 Last Admin: 10/31/18 16:33 Dose: Not Given Ondansetron HCl (Zofran) 4 mg IV NOW STA Stop: 10/31/18 15:16 Last Admin: 10/31/18 16:30 Dose: 4 mg Medical Decision Making Medical Records Attestation: I reviewed the patient's medical records. Home Medications Current Medication List: was personally reviewed by me Laboratory Data Attestation: I reviewed the patient's lab results. Result diagrams: 10/31/18 15:40 10/31/18 15:40 Lab Results 10/31/18 10/31/18 10/31/18 Range/Units 15:40 15:40 17:50 WBC 23.91 H (4.8-10.8) K/uL RBC 4.28 (4.2-5.4) M/uL Hgb 11.0 L (12.0-16.0) g/dL Hct 34.3 L (37-47) % MCV 80.1 (80-100) fL MCH 25.7 (25-34) pg MCHC 32.1 (32-36) g/dL RDW Std Deviation 44.8 (36.4-46.3) fL RDW Coeff of Hope 15.3 H (11.5-14.5) % Plt Count 263 (130-400) K/uL MPV 10.2 (7.4-10.4) fL Immature Gran % (Auto) 0.6 % Neut % (Auto) 85.6 % Lymph % (Auto) 6.4 % [place] % (Auto) 6.6 % Eos % (Auto) 0.6 % Baso % (Auto) 0.2 % Immature Gran # (Auto) 0.14 H (0.00-0.02) K/uL Neut # (Auto) 20.49 H (1.4-6.5) K/uL Lymph # (Auto) 1.52 (1.2-3.4) K/uL [place] # (Auto) 1.58 H (0.11-0.59) K/uL Eos # (Auto) 0.14 (0-0.5) K/uL Baso # (Auto) 0.04 (0-0.2) K/uL Sodium 133 L (136-145) mmol/L Potassium 4.4 (3.5-5.1) mmol/L Chloride 101 (98-107) mmol/L Carbon Dioxide 26 (21-32) mmol/L Anion Gap 6.0 (3-11) BUN 39 H (7-18) mg/dl Creatinine 2.14 H (0.6-1.2) mg/dl Est Cr Clr Drug Dosing 16.2 ml/min Est GFR ( Amer) 23.9 Est GFR (Non-Af Amer) 20.6 BUN/Creatinine Ratio 18.4 (10-20) Glucose 246 H (70-99) mg/dl POC Glucose (70-99) Calcium 8.9 (8.5-10.1) mg/dl Total Bilirubin 0.5 (0.2-1) mg/dl AST 19 (15-37) U/L ALT 15 (12-78) U/L Alkaline Phosphatase 102 (45-117) U/L Troponin I < 0.015 (0-0.045) ng/ml Total Protein 7.2 (6.4-8.2) gm/dl Albumin 3.8 (3.4-5.0) gm/dl Globulin 3.4 (2.5-4.0) gm/dl Albumin/Globulin Ratio 1.1 (0.9-2) Lipase 148 (73-393) U/L Urine Color Urine Appearance (Clear) Urine pH (4.5-7.5) Ur Specific [place] (1.000-1.030) Urine Protein (Negative) Urine Glucose (UA) (Negative) Urine Ketones (Negative) Urine Blood (Negative) Urine Nitrite (Negative) Urine Bilirubin (Negative) Urine Urobilinogen (Negative) Ur Leukocyte Esterase (Negative) Urine WBC (Auto) (0-5) /hpf Urine RBC (Auto) (0-4) /hpf U Hyaline Cast (Auto) (0-5) /lpf U Epithel Cells (Auto) (0-5) /lpf Urine Bacteria (Auto) (Negative) Urine Yeast POC Ur Test NEG (NEG) 10/31/18 10/31/18 Range/Units 17:50 19:37 WBC (4.8-10.8) K/uL RBC (4.2-5.4) M/uL Hgb (12.0-16.0) g/dL Hct (37-47) % MCV (80-100) fL MCH (25-34) pg MCHC (32-36) g/dL RDW Std Deviation (36.4-46.3) fL RDW Coeff of Hope (11.5-14.5) % Plt Count (130-400) K/uL MPV (7.4-10.4) fL Immature Gran % (Auto) % Neut % (Auto) % Lymph % (Auto) % [place] % (Auto) % Eos % (Auto) % Baso % (Auto) % Immature Gran # (Auto) (0.00-0.02) K/uL Neut # (Auto) (1.4-6.5) K/uL Lymph # (Auto) (1.2-3.4) K/uL [place] # (Auto) (0.11-0.59) K/uL Eos # (Auto) (0-0.5) K/uL Baso # (Auto) (0-0.2) K/uL Sodium (136-145) mmol/L Potassium (3.5-5.1) mmol/L Chloride (98-107) mmol/L Carbon Dioxide (21-32) mmol/L Anion Gap (3-11) BUN (7-18) mg/dl Creatinine (0.6-1.2) mg/dl Est Cr Clr Drug Dosing ml/min Est GFR ( Amer) Est GFR (Non-Af Amer) BUN/Creatinine Ratio (10-20) Glucose (70-99) mg/dl POC Glucose 135 H (70-99) Calcium (8.5-10.1) mg/dl Total Bilirubin (0.2-1) mg/dl AST (15-37) U/L ALT (12-78) U/L Alkaline Phosphatase (45-117) U/L Troponin I (0-0.045) ng/ml Total Protein (6.4-8.2) gm/dl Albumin (3.4-5.0) gm/dl Globulin (2.5-4.0) gm/dl Albumin/Globulin Ratio (0.9-2) Lipase (73-393) U/L Urine Color Yellow Urine Appearance Turbid H (Clear) Urine pH 5.5 (4.5-7.5) Ur Specific [place] 1.015 (1.000-1.030) Urine Protein 1+ H (Negative) Urine Glucose (UA) Negative (Negative) Urine Ketones Negative (Negative) Urine Blood 2+ H (Negative) Urine Nitrite Negative (Negative) Urine Bilirubin Negative (Negative) Urine Urobilinogen Negative (Negative) Ur Leukocyte Esterase 3+ H (Negative) Urine WBC (Auto) >30 H (0-5) /hpf Urine RBC (Auto) 10-30 H (0-4) /hpf U Hyaline Cast (Auto) 1-5 (0-5) /lpf U Epithel Cells (Auto) >30 H (0-5) /lpf Urine Bacteria (Auto) 4+ H (Negative) Urine Yeast Not Reportable POC Ur Test (NEG) Imaging Data Radiologist's Impression: Radiology results as stated below per my review and the radiologist's interpretation: CT SCAN OF THE ABDOMEN AND PELVIS WITHOUT IV CONTRAST CLINICAL HISTORY: Epigastric abdominal pain. Leukocytosis. COMPARISON STUDY: Abdominal CT dated 02/21/2018 TECHNIQUE: CT scan of the abdomen and pelvis is performed from the lung bases to the proximal femora. Images are reviewed in the axial, sagittal, and coronal planes. IV contrast was not administered for this examination as per the referring clinician. Note that the examination was performed in significantly suboptimal fashion without oral and IV contrast. A dose lowering technique was utilized adhering to the principles of ALARA. CT DOSE: 444.70 mGy.cm FINDINGS: Lung bases: The heart is normal in size and without pericardial effusion. The coronary arteries and mitral annulus are densely calcified. The lung bases are clear noting bibasilar scarring/atelectasis. Liver: The unenhanced liver is normal in size, contour, and attenuation. There is mild central intrahepatic biliary ductal dilatation. Gallbladder: Surgically absent. Spleen: Normal in size and attenuation. Pancreas: The unenhanced pancreas is atrophic and grossly unremarkable. Adrenal glands: Unremarkable. Kidneys: The unenhanced kidneys are atrophic and without hydronephrosis. There are no renal calculi identified. There is no evidence of contour deforming renal mass lesion. Abdominal vasculature: The abdominal aorta is normal in course and caliber noting advanced atherosclerotic calcification. Bowel: There is moderate colonic diverticulosis without CT evidence of acute diverticulitis. No bowel obstruction is identified. Liquid stool is noted throughout the colon. The appendix is well-visualized and normal. Peritoneum: There is no intraperitoneal free air or abdominal ascites. Postoperative change is noted in the ventral abdominal wall. Lymphadenopathy: None. Pelvic viscera: The bladder wall is mildly thickened and there is faint pericystic stranding. The uterus is surgically absent. No adnexal lesion is seen. Skeletal structures: The skeletal structures are osteopenic. There is moderate lumbosacral spondylosis and scoliosis. No lytic or blastic lesions are seen. IMPRESSION: 1. Significantly suboptimal examination without oral and IV contrast. 2. Liquid stool is noted throughout the colon. There is no colonic wall thickening or pericolonic inflammation. Correlate clinically for evidence of a diarrheal illness. 3. Question cystitis. Correlation with clinical findings and urinalysis will be required. 4. Moderate colonic diverticulosis without CT evidence of acute diverticulitis. 5. Additional findings as above. Electronically signed by: Dion Brady M.D. 10/31/2018 5:28 PM ECG Data Attestation: I personally reviewed and interpreted this ECG as follows: Indication: other (flu-like symptoms) Rate (beats per minute): 72 Rhythm: normal sinus Findings: + other (normal intervals) and + left axis deviation; no acute ischemic change Blood Pressure Blood Pressure Findings: Low blood pressure Blood Pressure Disposition: further management by hospitalist CELIA Narrative The patient is an 83 year old white female w/ PMHx of acute renal failure, diabetes, and C. diff who presents to the ED w/ CC of flu-like symptoms beginning today around 1100. Differential diagnosis: Includes but is not limited to gastritis, peptic ulcer disease, GERD, gallbladder disease, pancreatitis, small bowel obstruction, acute coronary syndrome, pericarditis, ischemic bowel, irritable bowel disease, irritable bowel syndrome, appendicitis, diverticulitis, malignancy, hernia, urinary tract infection, perforation, trauma, infectious. Patient was seen and evaluated the bedside. The patient was relating that she was having increased loose stools and associated epigastric pain with dry heaves. The patient denies any chest pains or shortness of breath. On exam the patient does have epigastric discomfort. The patient did have blood work completed which showed an AK I. Patient's baseline creatinine has increased and is greater than 2. Patient also did have a white count of close to 24,000. Given this and her symptoms and Noncon CT of the abdomen pelvis was obtained. The patient was still pending urinalysis. Patient CT does show liquid stool throughout the colon but without colonic wall thickening. Given the patient's history he likely does have diarrheal illness. The patient does have questionable cystitis. Urinalysis was obtained which does show a likely infection. Patient was treated with antibiotics. Given the patient's AK I associated UTI and elevated white count I believe the patient would benefit further evaluation and treatment. I did speak with the on-call hospitalist and the patient was admitted to the medicine service. Impression & Plan Cystitis, CRISPIN (acute kidney injury) Discharge Plan Visit Data *Final* Discharge Date/Time: 10/31/18 20:51 Chief Complaint: Flu Like Symptoms Stated Complaint: THROWING UP, DIARRHEA,SHAKEY ED Provider: Eren Ferro Discharge Problem: Cystitis, CRISPIN (acute kidney injury) Patient Disposition: Admitted As Inpatient Discharge Instructions Interventions: ED Discharge Assessment Last Done: 10/31/18 20:51 The scribe's documentation has been prepared under my direction and personally reviewed by me in its entirety. I confirm that the note above accurately reflects all work, treatment, procedures, and medical decision making performed by me.
[2018-10-31] MEDS: INSULIN ASPART 100 UNITS/ML 3 ML PEN SC SCH (22:51)
[2018-10-31 22:58] LABS: INR 1.1 (0.9-1.1)
[2018-10-31] MEDS: FLUTICASONE PROPIONATE NA SPR 16 GM BTL NAE SCH (23:07)
[2018-10-31] MEDS: TIZANIDINE HCL 4 MG TABLET PO SCH (23:07)
[2018-10-31] MEDS: TAMSULOSIN HCL 0.4 MG CAP PO SCH (23:08)
[2018-11-01] MEDS ORDERED: SODIUM CHLORIDE 0.9% 500 ML IV SCH (04:30)
[2018-11-01] MEDS: LEVOTHYROXINE SODIUM 100 MCG TABLET PO SCH (05:37)
[2018-11-01 07:53] LABS: Hematocrit (blood only) 24.5 % (37-47); Hemoglobin 7.7 g/dL (12.0-16.0); Mean Corpuscular Hgb Conc 31.4 g/dL (32-36); Mean Corpuscular Volume 81.4 fL (80-100); Mean Platelet Volume 10.2 fL (7.4-10.4); Platelet Count 189 K/uL (130-400); RDW Coefficient of Variation 15.4 % (11.5-14.5); RDW Standard Deviation 45.7 fL (36.4-46.3); Red Blood Count 3.01 M/uL (4.2-5.4)
[2018-11-01] MEDS: cefTRIAXone SODIUM 1,000 MG/50 ML BAG IV SCH (08:33)
[2018-11-01] MEDS: HEPARIN SOD 5,000 UNIT/0.5 ML VIAL SQ SCH ×2 (08:34→21:24)
[2018-11-01] MEDS: CHOLECALCIFEROL 1,000 UNITS TAB PO SCH (08:34)
[2018-11-01] MEDS: ESCITALOPRAM OXALATE 10 MG TAB PO SCH (08:36)
[2018-11-01] MEDS: SACCHAROMYCES BOULARDII 250 MG CAP PO SCH (08:36)
[2018-11-01] MEDS: INSULIN ASPART 100 UNITS/ML 3 ML PEN SC SCH ×4 (08:39→21:19)
[2018-11-01] MEDS: VERAPAMIL HCL 180 MG TABCR PO SCH (08:45)
[2018-11-01] MEDS ORDERED: ZINC GLUCONATE PO SCH (09:00)
[2018-11-01 09:14] LABS: BUN Creatinine Ratio 20.6 (10-20); Calcium 7.6 mg/dl (8.5-10.1); Creatinine Clr Calc Pharmacy 19.8 ml/min; Est GFR (African American) 27.6; Est GFR (Non-African American) 23.8; Potassium 4.3 mmol/L (3.5-5.1)
[2018-11-01 14:03] LABS: Basophils # (auto) 0.01 K/uL (0-0.2); Basophils % (auto) 0.1 %; Hematocrit (blood only) 24.6 % (37-47); Hemoglobin 7.9 g/dL (12.0-16.0); Immature Granulocytes # (auto) 0.02 K/uL (0.00-0.02); Immature Granulocytes % (auto) 0.3 %; Lymphocytes # (auto) 1.42 K/uL (1.2-3.4); Lymphocytes % (auto) 19.1 %; Mean Corpuscular Hgb Conc 32.1 g/dL (32-36); Mean Corpuscular Volume 81.2 fL (80-100); Mean Platelet Volume 9.5 fL (7.4-10.4); Monocytes # (auto) 0.49 K/uL (0.11-0.59); Monocytes % (auto) 6.6 %; Neutrophils % (auto) 69.9 %; Platelet Count 162 K/uL (130-400); RDW Coefficient of Variation 15.3 % (11.5-14.5); RDW Standard Deviation 45.1 fL (36.4-46.3); Red Blood Count 3.03 M/uL (4.2-5.4); White Blood Count 7.44 K/uL (4.8-10.8)
[2018-11-01 14:27] LABS: RBC Morphology Unremarkable
--- NOTE | 2018-11-01 19:28 | Hospitalist Progress Note ---
Date of Service November 01, 2018 Assessment & Plan (1) UTI (urinary tract infection): This is a 83-year-old female who has a significant past medical history of T2 DM, HTN, HLD, CKD stage III, hypothyroidism who presents to [facility] secondary to nausea, emesis, loose stool times 1 day. UTI admission Leukocytosis with wbc 23.91 and UA positive -WBC have downtrended to 7.4 K with IV fluids and ceftriaxone, however the Hgb also downtrended so perhaps more suggestive of dehydration -Urine Culture returned as Escherichia coli , with [place] Count >100,000 CFU/ ml Sensitivities to Follow -will continue with ceftriaxone for now -will send blood culture to rule out a bacteremia although patient appears clinically improved and stable Positive C.difficile test in stool -no acute diarrhea currently and CT abdomen Moderate colonic diverticulosis without CT evidence of acute diverticulitis -so there is no evidence of C.difficile colitis but at least is a C.difficile carrier, possible C.difficile infection (2) Acute worsening of stage 3 chronic kidney disease: admission with acute kidney injury suggestive of dehydration -improving with IV fluids -continue to hold lisinopril/hctz Anemia admission CBC is 11 follow up Hgb after IV fluids as 7.7 and repeat as 7.9 FOBT negative will send iron studies, LDH, peripheral smear (3) Generalized weakness: -PT/OT evaluations (4) T2DM (type 2 diabetes mellitus): Type 2 diabetes mellitus without use of skilled nursing insulin -A1C 7.1 on 09/08/18 -check Hba1c -Novolog sliding scale per protocol (5) HTN (hypertension): continue verapamil with parameters -will hold lisinopril/hctz given CRISPIN (6) Hypothyroidism: -continue levothyroxine (7) DVT prophylaxis: -Heparin SQ 5,000 units Q12hr Subjective Patient denies acute distress. Denies chest pain or shortness of breath. denies vomiting. denies headache. denies currently of chills. Physical Exam 2 Vital Signs (Past 24 Hours): Last Vital Signs Temp 36.8 C 11/01/18 18:53 Pulse 70 11/01/18 18:53 Resp 16 11/01/18 18:53 BP 131/50 L 11/01/18 18:53 Pulse Ox 94 11/01/18 18:53 Constitutional: WD/WN, vitals as above Eyes: PERRL, conjunctivae normal, anicteric sclerae EOM intact bilaterally ENMT: external ear and nose normal, oropharynx normal Neck: trachea midline, no thyromegaly Respiratory: normal respiratory effort, lungs clear to auscultation Cardiovascular: RRR, no murmur, no edema Gastrointestinal (Abdomen): normal bowel sounds, soft, nontender, no hepatosplenomegaly Musculoskeletal: no cyanosis or clubbing, extremities motor strength 5/5 Head/Neck/Chest: normocephalic and head atraumatic Neurologic: PERRL, EOMI, accommodation nl, no face palsy, no dysarthria CN' s II-XI intact bilaterally Psychiatric: A+Ox3, euthymic affect _ (1) UTI (urinary tract infection) Urinary tract infection type: acute cystitis Hematuria presence: with hematuria Indwelling urinary catheter type: Encounter type: Qualified Code( s): N30.01 - Acute cystitis with hematuria (2) T2DM (type 2 diabetes mellitus) Diabetes mellitus skilled nursing insulin use: without skilled nursing use Diabetes mellitus complication status: with kidney complications Diabetes mellitus complication detail: with chronic kidney disease Diabetic retinopathy severity : Proliferative retinopathy type: Diabetes mellitus macular edema: Laterality: Chronic kidney disease stage: stage 3 (moderate) Qualified Code(s ): E11.22 - Type 2 diabetes mellitus with diabetic chronic kidney disease; N18.3 - Chronic kidney disease, stage 3 (moderate) (3) HTN (hypertension) Hypertension type: essential hypertension Qualified Code(s): I10 - Essential (primary) hypertension (4) Hypothyroidism Hypothyroidism type: unspecified Qualified Code(s): E03.9 - Hypothyroidism, unspecified
[2018-11-01 19:35] LABS: Cdiff Antigen Positive; Cdiff Toxin A+B Negative (Negative)
[2018-11-01 20:47] LABS: Reticulocyte % 1.7 % (0.5-2.0); Reticulocytes # 0.06 10^6/uL (0.02-0.10)
[2018-11-01 21:08] LABS: Ferritin 77.5 ng/ml (8-388)
[2018-11-01] MEDS: SODIUM CHLORIDE 0.9% 1000ML 1,000 ML IV SCH (21:17)
[2018-11-01] MEDS: VANCOMYCIN HCL 125 MG/2.5ML SOLN PO SCH (21:18)
[2018-11-01] MEDS: RASPBERRY SYRUP 5 ML UDP PO SCH (21:19)
[2018-11-01] MEDS: FLUTICASONE PROPIONATE NA SPR 16 GM BTL NAE SCH (21:20)
[2018-11-01] MEDS: TIZANIDINE HCL 4 MG TABLET PO SCH (21:22)
[2018-11-01] MEDS: TAMSULOSIN HCL 0.4 MG CAP PO SCH (21:22)
[2018-11-02] MEDS: RASPBERRY SYRUP 5 ML UDP PO SCH ×4 (04:53→23:55)
[2018-11-02] MEDS: VANCOMYCIN HCL 125 MG/2.5ML SOLN PO SCH ×4 (04:53→23:55)
[2018-11-02] MEDS: LEVOTHYROXINE SODIUM 100 MCG TABLET PO SCH (04:54)
[2018-11-02 06:24] LABS: Estimated Average Glucose 166 mg/dl
[2018-11-02 07:24] LABS: Hematocrit (blood only) 26.7 % (37-47); Hemoglobin 8.4 g/dL (12.0-16.0); Mean Corpuscular Hgb Conc 31.5 g/dL (32-36); Mean Corpuscular Volume 80.4 fL (80-100); Mean Platelet Volume 10.3 fL (7.4-10.4); Platelet Count 181 K/uL (130-400); RDW Coefficient of Variation 15.3 % (11.5-14.5); RDW Standard Deviation 45.2 fL (36.4-46.3); Red Blood Count 3.32 M/uL (4.2-5.4)
[2018-11-02 08:03] LABS: BUN Creatinine Ratio 20.2 (10-20); Creatinine Clr Calc Pharmacy 20.9 ml/min; Est GFR (Non-African American) 25.1; Potassium 4.4 mmol/L (3.5-5.1)
[2018-11-02] MEDS: CHOLECALCIFEROL 1,000 UNITS TAB PO SCH (08:28)
[2018-11-02] MEDS: ESCITALOPRAM OXALATE 10 MG TAB PO SCH (08:28)
[2018-11-02] MEDS: HEPARIN SOD 5,000 UNIT/0.5 ML VIAL SQ SCH ×2 (08:28→20:58)
[2018-11-02] MEDS: SACCHAROMYCES BOULARDII 250 MG CAP PO SCH (08:29)
[2018-11-02] MEDS: VERAPAMIL HCL 180 MG TABCR PO SCH (08:30)
[2018-11-02] MEDS: cefTRIAXone SODIUM 1,000 MG/50 ML BAG IV SCH (08:30)
[2018-11-02] MEDS: ASPIRIN 81 MG ECTAB PO SCH (08:30)
[2018-11-02] MEDS: INSULIN ASPART 100 UNITS/ML 3 ML PEN SC SCH ×4 (08:33→20:58)
[2018-11-02] MEDS: SODIUM CHLORIDE 0.9% 1000ML 1,000 ML IV SCH ×2 (11:17→20:58)
--- NOTE | 2018-11-02 13:03 | Hospitalist Progress Note ---
Date of Service November 02, 2018 Assessment & Plan (1) UTI (urinary tract infection): Patient is an 83 yr female with H/O DM Type II, HTN, HLD, CKD stage III, hypothyroidism who presents with nausea, emesis, loose stool times 1 day. UTI Urine Culture: E.Coli Continue ceftriaxone Blood Culture: Pending Positive C.difficile test in stool --CT ABD:Liquid stool is noted throughout the colon. There is no colonic wall thickening or pericolonic inflammation. Correlate clinically for evidence of a diarrheal illness. Question cystitis. Correlation with clinical findings and urinalysis will be required. Moderate colonic diverticulosis without CT evidence of acute diverticulitis. --Diarrhea resolved --Ideally Needs NAAT test to confirm but given H/O diarrhea, treat for possible C.diff --Continue Vancomycin (2) Acute worsening of stage 3 chronic kidney disease: Likely prerenal and also diuretic/LOPEZ use Cr:2.14>>1.82 Hold HCTZ/Lisinopril Continue IV fluids Anemia of chronic Kidney disease Monitor CBC FOBT negative Iron studies, LDH, peripheral smear done (3) Generalized weakness: PT/OT (4) T2DM (type 2 diabetes mellitus): TDM II without use of long-term insulin A1C: 7.4 Continue Novolog sliding scale per protocol (5) HTN (hypertension): continue verapamil hold lisinopril/hctz for now (6) Hypothyroidism: continue levothyroxine (7) DVT prophylaxis: Heparin SQ Subjective Patient is seen and examined at bedside Doing well today Diarrhea resolved Offers no complaints Denies chest pain, dyspnea, dysuria, abd pain Renal function improving Physical Exam 2 Vital Signs (Past 24 Hours): Last Vital Signs Temp 37.1 C 11/02/18 11:52 Pulse 67 11/02/18 11:52 Resp 18 11/02/18 11:52 BP 131/68 11/02/18 11:52 Pulse Ox 92 11/02/18 11:52 Physical Exam: Physical Exam: Vitals signs as noted above General Appearance:Moderately built and nourished, no apparent distress Head: normocephalic, Atraumatic Eyes: normal inspection, EOMI Neck: supple, Trachea midline Respiratory/Chest: Normal breath sounds, CTA Cardiovascular: S1, S2, No murmur Abdomen/GI:Soft, Non tender, Bowel sounds present Extremities/Musculoskelatal:normal inspection, no edema Neurologic/Psych:AAOX3, grossly no focal neurological deficits Skin: normal color, warm Results & Data Laboratory Results Short CBC 11/01/18 11/02/18 Range/Units 13:49 06:35 WBC 7.44 6.50 (4.8-10.8) K/uL Hgb 7.9 L 8.4 L (12.0-16.0) g/dL Hct 24.6 L 26.7 L (37-47) % Plt Count 162 181 (130-400) K/uL BMP 11/02/18 06:35 Sodium 138 Potassium 4.4 Chloride 107 Carbon Dioxide 25 BUN 37 H Creatinine 1.82 H Glucose 108 H Calcium 8.0 L _ (1) UTI (urinary tract infection) Urinary tract infection type: acute cystitis Hematuria presence: with hematuria Indwelling urinary catheter type: Encounter type: Qualified Code( s): N30.01 - Acute cystitis with hematuria (2) T2DM (type 2 diabetes mellitus) Diabetes mellitus oysterman insulin use: without oysterman use Diabetes mellitus complication status: with kidney complications Diabetes mellitus complication detail: with chronic kidney disease Diabetic retinopathy severity : Proliferative retinopathy type: Diabetes mellitus macular edema: Laterality: Chronic kidney disease stage: stage 3 (moderate) Qualified Code(s ): E11.22 - Type 2 diabetes mellitus with diabetic chronic kidney disease; N18.3 - Chronic kidney disease, stage 3 (moderate) (3) HTN (hypertension) Hypertension type: essential hypertension Qualified Code(s): I10 - Essential (primary) hypertension (4) Hypothyroidism Hypothyroidism type: unspecified Qualified Code(s): E03.9 - Hypothyroidism, unspecified
[2018-11-02] MEDS: FLUTICASONE PROPIONATE NA SPR 16 GM BTL NAE SCH (20:58)
[2018-11-02] MEDS: TAMSULOSIN HCL 0.4 MG CAP PO SCH (20:59)
[2018-11-02] MEDS: TIZANIDINE HCL 4 MG TABLET PO SCH (20:59)
[2018-11-03] MEDS: LEVOTHYROXINE SODIUM 100 MCG TABLET PO SCH (05:55)
[2018-11-03] MEDS: VANCOMYCIN HCL 125 MG/2.5ML SOLN PO SCH ×3 (05:55→18:23)
[2018-11-03] MEDS: RASPBERRY SYRUP 5 ML UDP PO SCH ×3 (05:55→18:23)
[2018-11-03 07:29] LABS: Hematocrit (blood only) 26.6 % (37-47); Hemoglobin 8.4 g/dL (12.0-16.0); Mean Corpuscular Hgb Conc 31.6 g/dL (32-36); Mean Corpuscular Volume 80.9 fL (80-100); Mean Platelet Volume 9.9 fL (7.4-10.4); Platelet Count 169 K/uL (130-400); RDW Coefficient of Variation 15.3 % (11.5-14.5); RDW Standard Deviation 45.3 fL (36.4-46.3); Red Blood Count 3.29 M/uL (4.2-5.4); White Blood Count 5.61 K/uL (4.8-10.8)
[2018-11-03 08:07] LABS: BUN Creatinine Ratio 17.2 (10-20); Calcium 7.9 mg/dl (8.5-10.1); Creatinine Clr Calc Pharmacy 26.1 ml/min; Est GFR (African American) 37.9; Est GFR (Non-African American) 32.7; Magnesium 1.9 mg/dl (1.8-2.4); Potassium 4.2 mmol/L (3.5-5.1)
[2018-11-03] MEDS: VERAPAMIL HCL 180 MG TABCR PO SCH (08:54)
[2018-11-03] MEDS: ESCITALOPRAM OXALATE 10 MG TAB PO SCH (08:54)
[2018-11-03] MEDS: CHOLECALCIFEROL 1,000 UNITS TAB PO SCH (08:54)
[2018-11-03] MEDS: SACCHAROMYCES BOULARDII 250 MG CAP PO SCH (08:55)
[2018-11-03] MEDS: cefTRIAXone SODIUM 1,000 MG/50 ML BAG IV SCH (08:55)
[2018-11-03] MEDS: HEPARIN SOD 5,000 UNIT/0.5 ML VIAL SQ SCH ×2 (08:56→21:09)
[2018-11-03] MEDS: INSULIN ASPART 100 UNITS/ML 3 ML PEN SC SCH ×4 (08:59→20:50)
[2018-11-03] MEDS: SODIUM CHLORIDE 0.9% 1000ML 1,000 ML IV SCH (09:08)
--- NOTE | 2018-11-03 18:57 | Hospitalist Progress Note ---
Date of Service November 03, 2018 Assessment & Plan (1) UTI (urinary tract infection): Patient is an 83 yr female with H/O DM Type II, HTN, HLD, CKD stage III, hypothyroidism who presents with nausea, emesis, loose stool times 1 day. UTI Urine Culture: E.Coli Completed ceftriaxone course Blood Culture: No growth to date Positive C.difficile test in stool --CT ABD:Liquid stool is noted throughout the colon. There is no colonic wall thickening or pericolonic inflammation. Correlate clinically for evidence of a diarrheal illness. Question cystitis. Correlation with clinical findings and urinalysis will be required. Moderate colonic diverticulosis without CT evidence of acute diverticulitis. --Diarrhea Improving --Continue Vancomycin (2) Acute worsening of stage 3 chronic kidney disease: Likely prerenal and also diuretic/LOPEZ use Cr:2.14>>1.82>>1.46 Hold HCTZ/Lisinopril for now Received IV fluids Anemia of chronic Kidney disease Monitor CBC FOBT negative Iron studies, LDH, peripheral smear done (3) Generalized weakness: PT/OT (4) T2DM (type 2 diabetes mellitus): TDM II without use of watermaster insulin A1C: 7.4 Continue Novolog sliding scale per protocol (5) HTN (hypertension): continue verapamil hold lisinopril/hctz for now (6) Hypothyroidism: continue levothyroxine (7) DVT prophylaxis: Heparin SQ Subjective Patient is seen and examined at bedside States having a large loose BM today and feels tired No other complaints Denies chest pain, dyspnea, dysuria, abd pain Renal function improved Physical Exam 2 Vital Signs (Past 24 Hours): Last Vital Signs Temp 36.7 C 11/03/18 15:43 Pulse 72 11/03/18 16:46 Resp 18 11/03/18 15:43 BP 136/81 11/03/18 15:43 Pulse Ox 92 11/03/18 15:43 Physical Exam: Physical Exam: Vitals signs as noted above General Appearance:Moderately built and nourished, no apparent distress Head: normocephalic, Atraumatic Eyes: normal inspection, EOMI Neck: supple, Trachea midline Respiratory/Chest: Normal breath sounds, CTA Cardiovascular: S1, S2, No murmur Abdomen/GI:Soft, Non tender, Bowel sounds present Extremities/Musculoskelatal:normal inspection, no edema Neurologic/Psych:AAOX3, grossly no focal neurological deficits Skin: normal color, warm Results & Data Laboratory Results Short CBC 11/03/18 Range/Units 07:15 WBC 5.61 (4.8-10.8) K/uL Hgb 8.4 L (12.0-16.0) g/dL Hct 26.6 L (37-47) % Plt Count 169 (130-400) K/uL BMP 11/03/18 07:15 Sodium 140 Potassium 4.2 Chloride 109 H Carbon Dioxide 26 BUN 25 H Creatinine 1.46 H D Glucose 114 H Calcium 7.9 L _ (1) UTI (urinary tract infection) Urinary tract infection type: acute cystitis Hematuria presence: with hematuria Indwelling urinary catheter type: Encounter type: Qualified Code( s): N30.01 - Acute cystitis with hematuria (2) T2DM (type 2 diabetes mellitus) Diabetes mellitus watermaster insulin use: without residential use Diabetes mellitus complication status: with kidney complications Diabetes mellitus complication detail: with chronic kidney disease Diabetic retinopathy severity : Proliferative retinopathy type: Diabetes mellitus macular edema: Laterality: Chronic kidney disease stage: stage 3 (moderate) Qualified Code(s ): E11.22 - Type 2 diabetes mellitus with diabetic chronic kidney disease; N18.3 - Chronic kidney disease, stage 3 (moderate) (3) HTN (hypertension) Hypertension type: essential hypertension Qualified Code(s): I10 - Essential (primary) hypertension (4) Hypothyroidism Hypothyroidism type: unspecified Qualified Code(s): E03.9 - Hypothyroidism, unspecified
[2018-11-03] MEDS: FLUTICASONE PROPIONATE NA SPR 16 GM BTL NAE SCH (21:08)
[2018-11-03] MEDS: TAMSULOSIN HCL 0.4 MG CAP PO SCH (21:08)
[2018-11-03] MEDS: TIZANIDINE HCL 4 MG TABLET PO SCH (22:30)
[2018-11-04] MEDS: RASPBERRY SYRUP 5 ML UDP PO SCH ×4 (00:06→17:50)
[2018-11-04] MEDS: VANCOMYCIN HCL 125 MG/2.5ML SOLN PO SCH ×4 (00:06→17:50)
[2018-11-04] MEDS: LEVOTHYROXINE SODIUM 100 MCG TABLET PO SCH (06:03)
[2018-11-04 07:46] LABS: BUN Creatinine Ratio 14.4 (10-20); Calcium 8.3 mg/dl (8.5-10.1); Creatinine Clr Calc Pharmacy 24.8 ml/min; Est GFR (African American) 35.8; Est GFR (Non-African American) 30.9; Potassium 4.1 mmol/L (3.5-5.1)
[2018-11-04] MEDS: INSULIN ASPART 100 UNITS/ML 3 ML PEN SC SCH ×4 (09:15→21:32)
[2018-11-04] MEDS: VERAPAMIL HCL 180 MG TABCR PO SCH (09:16)
[2018-11-04] MEDS: SACCHAROMYCES BOULARDII 250 MG CAP PO SCH (09:16)
[2018-11-04] MEDS: ASPIRIN 81 MG ECTAB PO SCH (09:17)
[2018-11-04] MEDS: ESCITALOPRAM OXALATE 10 MG TAB PO SCH (09:17)
[2018-11-04] MEDS: CHOLECALCIFEROL 1,000 UNITS TAB PO SCH (09:17)
[2018-11-04] MEDS: HEPARIN SOD 5,000 UNIT/0.5 ML VIAL SQ SCH ×2 (09:18→21:32)
--- NOTE | 2018-11-04 17:29 | Hospitalist Progress Note ---
Date of Service November 04, 2018 Assessment & Plan (1) UTI (urinary tract infection): Patient is an 83 yr female with H/O DM Type II, HTN, HLD, CKD stage III, hypothyroidism who presents with nausea, emesis, loose stool times 1 day. UTI Urine Culture: E.Coli Completed ceftriaxone course Blood Culture: No growth to date Positive C.difficile test in stool --CT ABD:Liquid stool is noted throughout the colon. There is no colonic wall thickening or pericolonic inflammation. Correlate clinically for evidence of a diarrheal illness. Question cystitis. Correlation with clinical findings and urinalysis will be required. Moderate colonic diverticulosis without CT evidence of acute diverticulitis. --Still has significant diarrhea --Continue Vancomycin --Monitor renal function, electrolytes (2) Acute worsening of stage 3 chronic kidney disease: Likely prerenal and also diuretic/LOPEZ use Cr:2.14>>1.82>>1.52 Hold HCTZ/Lisinopril for now Received IV fluids Anemia of chronic Kidney disease Monitor CBC FOBT negative Iron studies, LDH, peripheral smear done (3) Generalized weakness: PT/OT (4) T2DM (type 2 diabetes mellitus): TDM II without use of terminal carman insulin A1C: 7.4 Continue Novolog sliding scale per protocol (5) HTN (hypertension): continue verapamil hold lisinopril/hctz for now (6) Hypothyroidism: continue levothyroxine (7) DVT prophylaxis: Heparin SQ Subjective Patient is seen and examined at bedside Reports having significant diarrhea today Tearful during my encounter Feels very tired No other complaints Denies chest pain, dyspnea, dysuria, abd pain Renal function stable Physical Exam 2 Vital Signs (Past 24 Hours): Last Vital Signs Temp 36.7 C 11/04/18 15:32 Pulse 70 11/04/18 16:53 Resp 18 11/04/18 15:32 BP 151/64 H 11/04/18 15:32 Pulse Ox 91 11/04/18 15:32 Physical Exam: Physical Exam: Vitals signs as noted above General Appearance:Moderately built and nourished, no apparent distress Head: normocephalic, Atraumatic Eyes: normal inspection, EOMI Neck: supple, Trachea midline Respiratory/Chest: Normal breath sounds, CTA Cardiovascular: S1, S2, No murmur Abdomen/GI:Soft, Non tender, Bowel sounds present Extremities/Musculoskelatal:normal inspection, no edema Neurologic/Psych:AAOX3, grossly no focal neurological deficits Skin: normal color, warm Results & Data Laboratory Results [facility] 11/04/18 06:53 Sodium 137 Potassium 4.1 Chloride 106 Carbon Dioxide 26 BUN 22 H Creatinine 1.53 H Glucose 119 H Calcium 8.3 L _ (1) UTI (urinary tract infection) Urinary tract infection type: acute cystitis Hematuria presence: with hematuria Indwelling urinary catheter type: Encounter type: Qualified Code( s): N30.01 - Acute cystitis with hematuria (2) T2DM (type 2 diabetes mellitus) Diabetes mellitus terminal carman insulin use: without terminal carman use Diabetes mellitus complication status: with kidney complications Diabetes mellitus complication detail: with chronic kidney disease Diabetic retinopathy severity : Proliferative retinopathy type: Diabetes mellitus macular edema: Laterality: Chronic kidney disease stage: stage 3 (moderate) Qualified Code(s ): E11.22 - Type 2 diabetes mellitus with diabetic chronic kidney disease; N18.3 - Chronic kidney disease, stage 3 (moderate) (3) HTN (hypertension) Hypertension type: essential hypertension Qualified Code(s): I10 - Essential (primary) hypertension (4) Hypothyroidism Hypothyroidism type: unspecified Qualified Code(s): E03.9 - Hypothyroidism, unspecified
[2018-11-04] MEDS: FLUTICASONE PROPIONATE NA SPR 16 GM BTL NAE SCH (21:31)
[2018-11-04] MEDS: TAMSULOSIN HCL 0.4 MG CAP PO SCH (21:32)
[2018-11-04] MEDS: TIZANIDINE HCL 4 MG TABLET PO SCH (22:30)
[2018-11-04 23:14] LABS: BUN Creatinine Ratio 15.1 (10-20); Calcium 8.2 mg/dl (8.5-10.1); Creatinine Clr Calc Pharmacy 30.1 ml/min; Est GFR (African American) 45.3; Est GFR (Non-African American) 39.1; Magnesium 1.7 mg/dl (1.8-2.4); Partial Thromboplastin Ratio 1.1; Partial Thromboplastin Time 27.5 Seconds (21.0-31.0); Potassium 3.8 mmol/L (3.5-5.1)
[2018-11-04] MEDS ORDERED: MAGNESIUM SULFATE / D5W 1 GM/100 ML BAG IV ONE (23:15)
[2018-11-04] MEDS ORDERED: POTASSIUM CHLORIDE 20 MEQ TABCR PO STA (23:15)
[2018-11-05] MEDS: RASPBERRY SYRUP 5 ML UDP PO SCH ×5 (00:03→23:31)
[2018-11-05] MEDS: VANCOMYCIN HCL 125 MG/2.5ML SOLN PO SCH ×5 (00:03→23:31)
[2018-11-05] MEDS: LEVOTHYROXINE SODIUM 100 MCG TABLET PO SCH (06:02)
[2018-11-05 07:51] LABS: BUN Creatinine Ratio 13.9 (10-20); Calcium 8.5 mg/dl (8.5-10.1); Creatinine Clr Calc Pharmacy 30.9 ml/min; Est GFR (African American) 47.1; Est GFR (Non-African American) 40.6; Potassium 4.4 mmol/L (3.5-5.1)
[2018-11-05] MEDS ORDERED: METOPROLOL TARTRATE 1 MG/ML VIAL IV PRN (08:00)
[2018-11-05] MEDS ORDERED: MAGNESIUM SULFATE / D5W 1 GM/100 ML BAG IV ONE (08:30)
[2018-11-05] MEDS: HEPARIN SOD 5,000 UNIT/0.5 ML VIAL SQ SCH (08:48)
[2018-11-05] MEDS: INSULIN ASPART 100 UNITS/ML 3 ML PEN SC SCH ×4 (08:50→20:37)
[2018-11-05] MEDS: CHOLECALCIFEROL 1,000 UNITS TAB PO SCH (08:52)
[2018-11-05] MEDS: VERAPAMIL HCL 180 MG TABCR PO SCH (08:53)
[2018-11-05] MEDS: SACCHAROMYCES BOULARDII 250 MG CAP PO SCH (08:53)
[2018-11-05] MEDS: ESCITALOPRAM OXALATE 10 MG TAB PO SCH (08:53)
--- NOTE | 2018-11-05 10:49 | Cardiology Consultation ---
Date of Consultation November 05, 2018 Assessment & Plan (1) Paroxysmal A-fib: Patient converted spontaneously to sinus rhythm this morning. She is on verapamil as an outpatient at 180 mg daily. I would continue this medication. She is at risk for an embolic event. I would recommend that we discontinue the subcu heparin and start her on IV heparin without a bolus. I have also started her on warfarin with anticipation of long-term outpatient anticoagulation as she is at risk for recurrence of her atrial arrhythmias. (2) UTI (urinary tract infection): (3) Acute worsening of stage 3 chronic kidney disease: (4) CKD (chronic kidney disease) stage 3, GFR 30-59 ml/min: History of Present Illness Attending Physician: Walter Zhu MD History of Present Illness This is a 83-year-old female with no past cardiac history. She does have a history of diabetes, hypertension, treated hypothyroidism and stage III kidney disease. She was admitted with sepsis due to UTI. She has been treated with antibiotics with improvement however, she developed some diarrhea and is C. difficile positive. Last evening she developed atrial fibrillation. This morning she converted to normal sinus rhythm. During the arrhythmia she was asymptomatic. Currently she has no cardiac complaints. Allergies Allergy/AdvReac Type Severity Reaction Status Date / Time Bactrim Allergy Intermediate Rash Verified 02/21/18 20:57 sulfamethoxazole Allergy Intermediate Rash Verified 10/31/18 15:56 trimethoprim Allergy Intermediate Rash Verified 10/31/18 15:56 tetanus toxoid, adsorbed Allergy Unknown HIVES Verified 10/31/18 15:56 tetracycline Allergy Unknown hives Verified 10/31/18 15:56 rosuvastatin AdvReac Intermediate Muscle Verified 10/31/18 15:56 stiffness Home Medications Home Medications Medication Instructions Recorded Confirmed Type aspirin [Aspirin Low Dose] 81 mg PO 3XWK 10/31/18 10/31/18 History cholecalciferol (vitamin D3) 2,000 unit PO DAILY 10/31/18 10/31/18 History [Vitamin D3] escitalopram oxalate 10 mg PO DAILY 10/31/18 10/31/18 History fluticasone [Flonase Allergy 2 spray INTRANASAL HS 10/31/18 10/31/18 History Relief] glimepiride 2 mg PO BID 10/31/18 10/31/18 History levothyroxine 100 mcg PO DAILY 10/31/18 10/31/18 History lisinopril-hydrochlorothiazide 1 tab PO DAILY 10/31/18 10/31/18 History tamsulosin [Flomax] 0.4 mg PO HS 10/31/18 10/31/18 History tizanidine 4 mg PO HS 10/31/18 10/31/18 History verapamil 180 mg PO DAILY 10/31/18 10/31/18 History zinc gluconate 12.5 mg PO DAILY 10/31/18 10/31/18 History Patient History Medical History T2DM (type 2 diabetes mellitus) HTN (hypertension) HLD (hyperlipidemia) Hypothyroidism CKD (chronic kidney disease) stage 3, GFR 30-59 ml/min ARF (acute renal failure) Surgical History History of hysterectomy History of cholecystectomy History of breast biopsy Family History Mother Breast cancer HTN (hypertension) Father , at 92 No problems noted. Social History marital status: / Current Living Situation: Alone Other Information That Helps Us Care for You: No other: ambulates with cane Feels Safe at Home: Yes Safety Concerns: Feels Safe At This Time Smoking Status: Never smoker Do You Dip or Chew Tobacco: No Hx Alcohol Use: No Hx Substance Use: No Beliefs That Will Affect Care: Faith Faith Beliefs: [employer] Communication Ability: Effective Review of Systems Review of Systems: See HPI for pertinent positives. All other 10 point review of systems are negative. Physical Exam 2 Vital Signs (Past 24 Hours): Last Vital Signs Temp 36.8 C 11/05/18 07:00 Pulse 100 H 11/05/18 08:00 Resp 18 11/05/18 07:00 BP 119/72 11/05/18 07:00 Pulse Ox 92 11/05/18 07:00 Physical Exam: General: no acute distress and stated age Head: normocephalic, no masses, lesions, tenderness or abnormalities Eyes: conjunctiva are pink and non-injected, sclera clear Neck: supple, no adenopathy, no bruits, normal jugular venous pulse, no hepatojugular reflux Chest: normal shape and normal respiratory effort Lungs: clear to auscultation and percussion Cardiac Exam: - regular rate & rhythm, no murmurs gallops or rubs - normal S1, normal S2 Pulses: 2(+) throughout Abdomen: abdomen soft, non-tender, no abnormal masses and no hepatosplenomegaly Musculoskeletal: no gait disturbance, no joint inflammation, no deforming arthritis Extremities: no edema and no cyanosis Neuro: grossly normal exam Results & Data Laboratory Results Laboratory Results - last 24 hr 11/04/18 11/04/18 11/04/18 11:45 16:01 20:12 APTT PTT Ratio Sodium Potassium Chloride Carbon Dioxide Anion Gap BUN Creatinine Est Cr Clr Drug Dosing Est GFR ( Amer) Est GFR (Non-Af Amer) BUN/Creatinine Ratio Glucose POC Glucose 107 H 102 H 168 H Calcium Magnesium TSH 11/04/18 11/04/18 11/05/18 22:41 22:41 06:49 APTT 27.5 PTT Ratio 1.1 Sodium 136 137 Potassium 3.8 4.4 D Chloride 103 105 Carbon Dioxide 27 25 Anion Gap 6.0 7.0 BUN 19 H 17 Creatinine 1.26 H 1.22 H Est Cr Clr Drug Dosing 30.1 30.9 Est GFR ( Amer) 45.3 47.1 Est GFR (Non-Af Amer) 39.1 40.6 BUN/Creatinine Ratio 15.1 13.9 Glucose 138 H 108 H POC Glucose Calcium 8.2 L 8.5 Magnesium 1.7 L TSH 3.410 11/05/18 07:20 APTT PTT Ratio Sodium Potassium Chloride Carbon Dioxide Anion Gap BUN Creatinine Est Cr Clr Drug Dosing Est GFR ( Amer) Est GFR (Non-Af Amer) BUN/Creatinine Ratio Glucose POC Glucose 123 H Calcium Magnesium TSH Medications Administered Current Inpatient Medications Acetaminophen (Tylenol) 650 mg PO Q4H PRN PRN Reason: Pain or Fever Stop: 11/30/18 21:38 Last Admin: 11/04/18 11:30 Dose: 650 mg Aspirin (Ecotrin Ectab) 81 mg PO [id number] [facility] Stop: 12/02/18 08:59 Last Admin: 11/04/18 09:17 Dose: 81 mg Dextrose (Dextrose 50%) 25 - 50 ml IV UD PRN; Protocol PRN Reason: Hypoglycemia Protocol Stop: 11/30/18 21:38 Escitalopram Oxalate (Lexapro) 10 mg PO DAILY [facility] Stop: 12/01/18 08:59 Last Admin: 11/05/18 08:53 Dose: 10 mg Fluticasone Propionate (Flonase) 2 sprays KARELY HS [facility] Stop: 11/30/18 21:59 Last Admin: 11/04/18 21:31 Dose: 2 sprays Glucagon (Glucagen) 1 mg SQ UD PRN; Protocol PRN Reason: Hypoglycemia Protocol Stop: 11/30/18 21:38 Glucose (Glucose 40%) 15 - 30 gm PO UD PRN; Protocol PRN Reason: Hypoglycemia Protocol Stop: 11/30/18 21:38 Glucose (Dex4 Glucose) 4 - 8 tabs PO UD PRN; Protocol PRN Reason: Hypoglycemia Protocol Stop: 11/30/18 21:38 Heparin Sodium/Dextrose () 1 ea N/A ONE ONE; Protocol Stop: 11/05/18 10:40 Insulin Aspart (Novolog Flexpen) 0 units SC ACHS [facility] Stop: 11/30/18 22:29 Last Admin: 11/05/18 08:50 Dose: 3 units Levothyroxine Sodium (Synthroid) 100 mcg PO DAILYBB [facility] Stop: 12/01/18 06:29 Last Admin: 11/05/18 06:02 Dose: 100 mcg Metoprolol Tartrate (Lopressor) 5 mg IV Q6H PRN PRN Reason: Tachycardia Stop: 12/05/18 07:59 Miscellaneous (Carbohydrates For Hypoglycemia) 15 - 30 gm PO UD PRN PRN Reason: Hypoglycemia Treatment Stop: 11/30/18 21:38 Ondansetron HCl (Zofran) 4 mg IV Q6H PRN PRN Reason: Nausea Stop: 11/30/18 21:38 Raspberry (Raspberry) 5 ml PO Q6HWA [facility] Stop: 11/16/18 00:00 Last Admin: 11/05/18 06:02 Dose: 5 ml Saccharomyces Boulardii (Florastor) 250 mg PO DAILY [facility] Stop: 12/01/18 08:59 Last Admin: 11/05/18 08:53 Dose: 250 mg Tamsulosin HCl (Flomax) 0.4 mg PO [facility] Stop: 11/30/18 22:29 Last Admin: 11/04/18 21:32 Dose: 0.4 mg Tizanidine HCl (Zanaflex) 4 mg PO HS [facility] Stop: 11/30/18 21:59 Last Admin: 11/04/18 22:30 Dose: 4 mg Vancomycin HCl (Vancomycin Hcl) 125 mg PO Q6HWA [facility] Stop: 11/12/18 00:00 Last Admin: 11/05/18 06:02 Dose: 125 mg Verapamil HCl (Calan Sr) 180 mg PO DAILY [facility] Stop: 12/01/18 08:59 Last Admin: 11/05/18 08:53 Dose: 180 mg Vitamin D (Vitamin D3) 2,000 units PO DAILY [facility] Stop: 12/01/18 08:59 Last Admin: 11/05/18 08:52 Dose: 2,000 units Warfarin Sodium (Coumadin) 7.5 mg PO DAILY@1600 [facility] Stop: 12/05/18 15:59 _ (1) UTI (urinary tract infection) Encounter type: Hematuria presence: with hematuria Indwelling urinary catheter type: Urinary tract infection type: acute cystitis Qualified Code(s) : N30.01 - Acute cystitis with hematuria
[2018-11-05] MEDS: HEPARIN STANDARD DEXTROSE 25,000 UNITS/500 ML IV SCH ×2 (11:32→18:04)
[2018-11-05] MEDS: Heparin IV Standard *NO* Bolus IV SCH ×2 (11:33→11:40)
[2018-11-05 11:48] LABS: INR 1.1 (0.9-1.1); Prothrombin Time 10.9 Seconds (9.0-12.0)
[2018-11-05] MEDS ORDERED: WARFARIN SOD 7.5 MG TAB PO SCH (16:00)
--- NOTE | 2018-11-05 16:28 | Hospitalist Progress Note ---
Date of Service November 05, 2018 Assessment & Plan (1) UTI (urinary tract infection): Patient is an 83 yr female with H/O DM Type II, HTN, HLD, CKD stage III, hypothyroidism who presents with nausea, emesis, loose stool times 1 day. UTI Urine Culture: E.Coli Completed ceftriaxone course Blood Culture: No growth to date Positive C.difficile test in stool --CT ABD:Liquid stool is noted throughout the colon. There is no colonic wall thickening or pericolonic inflammation. Correlate clinically for evidence of a diarrheal illness. Question cystitis. Correlation with clinical findings and urinalysis will be required. Moderate colonic diverticulosis without CT evidence of acute diverticulitis. --Still has significant diarrhea --Continue Vancomycin --Monitor renal function, electrolytes Paroxysmal Atrial Fibrillation New diagnosis Continue Verapamil for rate control Started on Heparin/Coumadin Moitor INR Appreciate Cardiology Input (2) Acute worsening of stage 3 chronic kidney disease: Likely prerenal and also diuretic/LOPEZ use Cr:2.14>>1.82>>1.52>>1.22 Hold HCTZ/Lisinopril for now Received IV fluids Anemia of chronic Kidney disease Monitor CBC FOBT negative Iron studies, LDH, peripheral smear done (3) Generalized weakness: PT/OT (4) T2DM (type 2 diabetes mellitus): TDM II without use of care home insulin A1C: 7.4 Continue Novolog sliding scale per protocol (5) HTN (hypertension): continue verapamil hold lisinopril/hctz for now (6) Hypothyroidism: continue levothyroxine (7) DVT prophylaxis: Heparin SQ Subjective Patient is seen and examined at bedside Was noted to have afib overnight and spontaneously converted this morning Diarrhea better today No new complaints Denies chest pain, dyspnea, dysuria, abd pain, palpitations Renal function stable Physical Exam 2 Vital Signs (Past 24 Hours): Last Vital Signs Temp 36.8 C 11/05/18 15:17 Pulse 71 11/05/18 15:17 Resp 20 11/05/18 15:17 BP 111/54 L 11/05/18 15:17 Pulse Ox 93 11/05/18 15:17 Physical Exam: Physical Exam: Vitals signs as noted above General Appearance:Moderately built and nourished, no apparent distress Head: normocephalic, Atraumatic Eyes: normal inspection, EOMI Neck: supple, Trachea midline Respiratory/Chest: Normal breath sounds, CTA Cardiovascular: S1, S2, No murmur Abdomen/GI:Soft, Non tender, Bowel sounds present Extremities/Musculoskelatal:normal inspection, no edema Neurologic/Psych:AAOX3, grossly no focal neurological deficits Skin: normal color, warm Results & Data Laboratory Results [facility] 11/04/18 11/05/18 22:41 06:49 Sodium 136 137 Potassium 3.8 4.4 D Chloride 103 105 Carbon Dioxide 27 25 BUN 19 H 17 Creatinine 1.26 H 1.22 H Glucose 138 H 108 H Calcium 8.2 L 8.5 _ (1) UTI (urinary tract infection) Urinary tract infection type: acute cystitis Hematuria presence: with hematuria Indwelling urinary catheter type: Encounter type: Qualified Code( s): N30.01 - Acute cystitis with hematuria (2) T2DM (type 2 diabetes mellitus) Diabetes mellitus terminal manager insulin use: without care home use Diabetes mellitus complication status: with kidney complications Diabetes mellitus complication detail: with chronic kidney disease Diabetic retinopathy severity : Proliferative retinopathy type: Diabetes mellitus macular edema: Laterality: Chronic kidney disease stage: stage 3 (moderate) Qualified Code(s ): E11.22 - Type 2 diabetes mellitus with diabetic chronic kidney disease; N18.3 - Chronic kidney disease, stage 3 (moderate) (3) HTN (hypertension) Hypertension type: essential hypertension Qualified Code(s): I10 - Essential (primary) hypertension (4) Hypothyroidism Hypothyroidism type: unspecified Qualified Code(s): E03.9 - Hypothyroidism, unspecified
[2018-11-05 17:49] LABS: Partial Thromboplastin Ratio 1.7; Partial Thromboplastin Time 43.9 Seconds (21.0-31.0)
[2018-11-05] MEDS ORDERED: HEPARIN BOLUS IV STA (18:15)
[2018-11-05] MEDS: FLUTICASONE PROPIONATE NA SPR 16 GM BTL NAE SCH (22:01)
[2018-11-05] MEDS: TAMSULOSIN HCL 0.4 MG CAP PO SCH (22:01)
[2018-11-05] MEDS: TIZANIDINE HCL 4 MG TABLET PO SCH (22:50)
[2018-11-06 00:46] LABS: Partial Thromboplastin Ratio 2.4
[2018-11-06 00:51] LABS: Partial Thromboplastin Time 61.3 Seconds (21.0-31.0)
[2018-11-06] MEDS: VANCOMYCIN HCL 125 MG/2.5ML SOLN PO SCH ×4 (06:04→23:30)
[2018-11-06] MEDS: LEVOTHYROXINE SODIUM 100 MCG TABLET PO SCH (06:04)
[2018-11-06] MEDS: RASPBERRY SYRUP 5 ML UDP PO SCH ×4 (06:04→23:31)
[2018-11-06 06:59] LABS: Hematocrit (blood only) 30.1 % (37-47); Hemoglobin 9.6 g/dL (12.0-16.0); Mean Corpuscular Hgb Conc 31.9 g/dL (32-36); Mean Corpuscular Volume 81.4 fL (80-100); Mean Platelet Volume 9.9 fL (7.4-10.4); Platelet Count 209 K/uL (130-400); RDW Coefficient of Variation 15.7 % (11.5-14.5); RDW Standard Deviation 45.8 fL (36.4-46.3); White Blood Count 7.57 K/uL (4.8-10.8)
[2018-11-06 07:07] LABS: INR 1.2 (0.9-1.1); Prothrombin Time 11.7 Seconds (9.0-12.0)
[2018-11-06 07:30] LABS: BUN Creatinine Ratio 16.4 (10-20); Calcium 8.7 mg/dl (8.5-10.1); Est GFR (African American) 41.7; Magnesium 2.1 mg/dl (1.8-2.4); Potassium 4.1 mmol/L (3.5-5.1)
[2018-11-06 07:32] LABS: Partial Thromboplastin Ratio 2.2
[2018-11-06 07:51] LABS: Partial Thromboplastin Time 56.6 Seconds (21.0-31.0)
[2018-11-06] MEDS ORDERED: METOPROLOL TARTRATE 1 MG/ML VIAL IV PRN (08:03)
[2018-11-06] MEDS: VERAPAMIL HCL 180 MG TABCR PO SCH (09:22)
[2018-11-06] MEDS: ESCITALOPRAM OXALATE 10 MG TAB PO SCH (09:22)
[2018-11-06] MEDS: CHOLECALCIFEROL 1,000 UNITS TAB PO SCH (09:22)
[2018-11-06] MEDS: SACCHAROMYCES BOULARDII 250 MG CAP PO SCH (09:22)
[2018-11-06] MEDS: INSULIN ASPART 100 UNITS/ML 3 ML PEN SC SCH ×4 (09:24→21:16)
[2018-11-06] MEDS: HEPARIN STANDARD DEXTROSE 25,000 UNITS/500 ML IV SCH (09:24)
--- NOTE | 2018-11-06 11:25 | Cardiology Progress Note ---
Date of Service November 06, 2018 Assessment & Plan (1) Paroxysmal A-fib: I would continue the verapamil. Her INR today is 1.2. The heparin can be discontinued when the INR is therapeutic. She will get 5 mg of warfarin today. (2) UTI (urinary tract infection): (3) Acute worsening of stage 3 chronic kidney disease: (4) CKD (chronic kidney disease) stage 3, GFR 30-59 ml/min: Subjective The patient had an uneventful night and has no new cardiac complaints. Telemetry indicates she remains in a sinus rhythm. INR today is 1.2. Physical Exam 2 Vital Signs (Past 24 Hours): Last Vital Signs Temp 36.4 C L 11/06/18 06:59 Pulse 61 11/06/18 06:59 Resp 21 11/06/18 06:59 BP 100/49 L 11/06/18 06:59 Pulse Ox 93 11/06/18 06:59 Physical Exam: General: no acute distress and stated age Head: normocephalic, no masses, lesions, tenderness or abnormalities Eyes: conjunctiva are pink and non-injected, sclera clear Neck: supple, no adenopathy, no bruits, normal jugular venous pulse, no hepatojugular reflux Chest: normal shape and normal respiratory effort Lungs: clear to auscultation and percussion Cardiac Exam: - regular rate & rhythm, no murmurs gallops or rubs - normal S1, normal S2 Pulses: 2(+) throughout Abdomen: abdomen soft, non-tender, no abnormal masses and no hepatosplenomegaly Musculoskeletal: no gait disturbance, no joint inflammation, no deforming arthritis Extremities: no edema and no cyanosis Neuro: grossly normal exam Results & Data Laboratory Results Laboratory Results - last 24 hr 11/05/18 11/05/18 11/05/18 11:03 11:44 16:24 WBC RBC Hgb Hct MCV MCH MCHC RDW Std Deviation RDW Coeff of Hope Plt Count MPV PT 10.9 INR 1.1 APTT PTT Ratio Sodium Potassium Chloride Carbon Dioxide Anion Gap BUN Creatinine Est Cr Clr Drug Dosing Est GFR ( Amer) Est GFR (Non-Af Amer) BUN/Creatinine Ratio Glucose POC Glucose 112 H 120 H Calcium Magnesium 11/05/18 11/05/18 11/06/18 17:21 20:21 00:14 WBC RBC Hgb Hct MCV MCH MCHC RDW Std Deviation RDW Coeff of Hope Plt Count MPV PT INR APTT 43.9 H 61.3 H* PTT Ratio 1.7 2.4 Sodium Potassium Chloride Carbon Dioxide Anion Gap BUN Creatinine Est Cr Clr Drug Dosing Est GFR ( Amer) Est GFR (Non-Af Amer) BUN/Creatinine Ratio Glucose POC Glucose 160 H Calcium Magnesium 11/06/18 11/06/18 11/06/18 06:46 06:46 06:46 WBC 7.57 RBC 3.70 L Hgb 9.6 L Hct 30.1 L MCV 81.4 MCH 25.9 MCHC 31.9 L RDW Std Deviation 45.8 RDW Coeff of Hope 15.7 H Plt Count 209 MPV 9.9 PT 11.7 INR 1.2 H APTT PTT Ratio Sodium 138 Potassium 4.1 Chloride 103 Carbon Dioxide 28 Anion Gap 7.0 BUN 22 H Creatinine 1.35 H Est Cr Clr Drug Dosing 28.0 Est GFR ( Amer) 41.7 Est GFR (Non-Af Amer) 36.0 BUN/Creatinine Ratio 16.4 Glucose 136 H POC Glucose Calcium 8.7 Magnesium 2.1 11/06/18 11/06/18 06:46 07:32 WBC RBC Hgb Hct MCV MCH MCHC RDW Std Deviation RDW Coeff of Hope Plt Count MPV PT INR APTT 56.6 H* PTT Ratio 2.2 Sodium Potassium Chloride Carbon Dioxide Anion Gap BUN Creatinine Est Cr Clr Drug Dosing Est GFR ( Amer) Est GFR (Non-Af Amer) BUN/Creatinine Ratio Glucose POC Glucose 128 H Calcium Magnesium Medications Administered Current Inpatient Medications Acetaminophen (Tylenol) 650 mg PO Q4H PRN PRN Reason: Pain or Fever Stop: 11/30/18 21:38 Last Admin: 11/04/18 11:30 Dose: 650 mg Aspirin (Ecotrin Ectab) 81 mg PO MoWeFr@0900 [facility] Stop: 12/02/18 08:59 Last Admin: 11/04/18 09:17 Dose: 81 mg Dextrose (Dextrose 50%) 25 - 50 ml IV UD PRN; Protocol PRN Reason: Hypoglycemia Protocol Stop: 11/30/18 21:38 Escitalopram Oxalate (Lexapro) 10 mg PO DAILY [facility] Stop: 12/01/18 08:59 Last Admin: 11/06/18 09:22 Dose: 10 mg Fluticasone Propionate (Flonase) 2 sprays KARELY HS [facility] Stop: 11/30/18 21:59 Last Admin: 11/05/18 22:01 Dose: 2 sprays Glucagon (Glucagen) 1 mg SQ UD PRN; Protocol PRN Reason: Hypoglycemia Protocol Stop: 11/30/18 21:38 Glucose (Glucose 40%) 15 - 30 gm PO UD PRN; Protocol PRN Reason: Hypoglycemia Protocol Stop: 11/30/18 21:38 Glucose (Dex4 Glucose) 4 - 8 tabs PO UD PRN; Protocol PRN Reason: Hypoglycemia Protocol Stop: 11/30/18 21:38 Heparin Sodium/Dextrose (Heparin Sodium/Dextrose) 25,000 units in 500 mls @ 22 mls/hr IV .[id number] [facility]; Protocol Stop: 12/05/18 11:02 Last Admin: 11/06/18 09:24 Dose: 1,100 units/hr, 22 mls/hr Heparin Sodium (Porcine) 2,000 (units/ Syringe) 2,000 mls @ 1 mls/min IV ONE STA Stop: 11/07/18 03:34 Last Admin: 11/05/18 19:04 Dose: 1 mls/min Insulin Aspart (Novolog Flexpen) 0 units SC ACHS [facility] Stop: 11/30/18 22:29 Last Admin: 11/06/18 09:24 Dose: 3 units Levothyroxine Sodium (Synthroid) 100 mcg PO DAILYBB [facility] Stop: 12/01/18 06:29 Last Admin: 11/06/18 06:04 Dose: 100 mcg Metoprolol Tartrate (Lopressor) 2.5 mg IV Q6H PRN PRN Reason: Tachycardia Stop: 12/05/18 07:59 Miscellaneous (Carbohydrates For Hypoglycemia) 15 - 30 gm PO UD PRN PRN Reason: Hypoglycemia Treatment Stop: 11/30/18 21:38 Ondansetron HCl (Zofran) 4 mg IV Q6H PRN PRN Reason: Nausea Stop: 11/30/18 21:38 Raspberry (Raspberry) 5 ml PO Q6HWA [facility] Stop: 11/16/18 00:00 Last Admin: 11/06/18 06:04 Dose: 5 ml Saccharomyces Boulardii (Florastor) 250 mg PO DAILY [facility] Stop: 12/01/18 08:59 Last Admin: 11/06/18 09:22 Dose: 250 mg Tamsulosin HCl (Flomax) 0.4 mg PO HS [facility] Stop: 11/30/18 22:29 Last Admin: 11/05/18 22:01 Dose: 0.4 mg Tizanidine HCl (Zanaflex) 4 mg PO HS [facility] Stop: 11/30/18 21:59 Last Admin: 11/05/18 22:50 Dose: 4 mg Vancomycin HCl (Vancomycin Hcl) 125 mg PO Q6HWA [facility] Stop: 11/12/18 00:00 Last Admin: 11/06/18 06:04 Dose: 125 mg Verapamil HCl (Calan Sr) 180 mg PO DAILY [facility] Stop: 12/01/18 08:59 Last Admin: 11/06/18 09:22 Dose: 180 mg Vitamin D (Vitamin D3) 2,000 units PO DAILY [facility] Stop: 12/01/18 08:59 Last Admin: 11/06/18 09:22 Dose: 2,000 units Warfarin Sodium (Coumadin) 5 mg PO DAILY@1600 [facility] Stop: 12/06/18 15:59 _ (1) UTI (urinary tract infection) Urinary tract infection type: acute cystitis Hematuria presence: with hematuria Indwelling urinary catheter type: Encounter type: Qualified Code( s): N30.01 - Acute cystitis with hematuria
--- NOTE | 2018-11-06 14:44 | Hospitalist Progress Note ---
Date of Service November 06, 2018 Assessment & Plan (1) UTI (urinary tract infection): Patient is an 83 yr female with H/O DM Type II, HTN, HLD, CKD stage III, hypothyroidism who presents with nausea, emesis, loose stool times 1 day. UTI Urine Culture: E.Coli Completed ceftriaxone course Blood Culture: No growth to date Positive C.difficile test in stool --CT ABD:Liquid stool is noted throughout the colon. There is no colonic wall thickening or pericolonic inflammation. Correlate clinically for evidence of a diarrheal illness. Question cystitis. Correlation with clinical findings and urinalysis will be required. Moderate colonic diverticulosis without CT evidence of acute diverticulitis. --Still has significant diarrhea --Continue Vancomycin Day #5 --Monitor renal function, electrolytes Paroxysmal Atrial Fibrillation New diagnosis Continue Verapamil for rate control Continue Heparin/Coumadin Moitor INR:1.2 Appreciate Cardiology Input (2) Acute worsening of stage 3 chronic kidney disease: Likely prerenal and also diuretic/LOPEZ use Cr:2.14>>1.82>>1.52>>1.35 Hold HCTZ/Lisinopril for now Received IV fluids Anemia of chronic Kidney disease Monitor CBC FOBT negative Iron studies, LDH, peripheral smear done (3) Generalized weakness: PT/OT (4) T2DM (type 2 diabetes mellitus): TDM II without use of superintendent container terminal insulin A1C: 7.4 Continue Novolog sliding scale per protocol (5) HTN (hypertension): continue verapamil hold lisinopril/hctz for now (6) Hypothyroidism: continue levothyroxine (7) DVT prophylaxis: Heparin ggt Subjective Patient is seen and examined at bedside Doing well today, No complaints On Heparin ggt No bleeding issues Diarrhea improved No new complaints Denies chest pain, dyspnea, dysuria, abd pain, palpitations Physical Exam 2 Vital Signs (Past 24 Hours): Last Vital Signs Temp 36.8 C 11/06/18 11:00 Pulse 69 11/06/18 11:00 Resp 18 11/06/18 11:00 BP 123/58 L 11/06/18 11:00 Pulse Ox 91 11/06/18 11:00 Physical Exam: Physical Exam: Vitals signs as noted above General Appearance:Moderately built and nourished, no apparent distress Head: normocephalic, Atraumatic Eyes: normal inspection, EOMI Neck: supple, Trachea midline Respiratory/Chest: Normal breath sounds, CTA Cardiovascular: S1, S2, No murmur Abdomen/GI:Soft, Non tender, Bowel sounds present Extremities/Musculoskelatal:normal inspection, no edema Neurologic/Psych:AAOX3, grossly no focal neurological deficits Skin: normal color, warm Results & Data Laboratory Results Short CBC 11/06/18 Range/Units 06:46 WBC 7.57 (4.8-10.8) K/uL Hgb 9.6 L (12.0-16.0) g/dL Hct 30.1 L (37-47) % Plt Count 209 (130-400) K/uL BMP 11/06/18 06:46 Sodium 138 Potassium 4.1 Chloride 103 Carbon Dioxide 28 BUN 22 H Creatinine 1.35 H Glucose 136 H Calcium 8.7 _ (1) UTI (urinary tract infection) Urinary tract infection type: acute cystitis Hematuria presence: with hematuria Indwelling urinary catheter type: Encounter type: Qualified Code( s): N30.01 - Acute cystitis with hematuria (2) T2DM (type 2 diabetes mellitus) Diabetes mellitus superintendent container terminal insulin use: without superintendent container terminal use Diabetes mellitus complication status: with kidney complications Diabetes mellitus complication detail: with chronic kidney disease Diabetic retinopathy severity : Proliferative retinopathy type: Diabetes mellitus macular edema: Laterality: Chronic kidney disease stage: stage 3 (moderate) Qualified Code(s ): E11.22 - Type 2 diabetes mellitus with diabetic chronic kidney disease; N18.3 - Chronic kidney disease, stage 3 (moderate) (3) HTN (hypertension) Hypertension type: essential hypertension Qualified Code(s): I10 - Essential (primary) hypertension (4) Hypothyroidism Hypothyroidism type: unspecified Qualified Code(s): E03.9 - Hypothyroidism, unspecified
[2018-11-06] MEDS: WARFARIN SOD 5 MG TAB PO SCH (17:55)
[2018-11-06] MEDS: FLUTICASONE PROPIONATE NA SPR 16 GM BTL NAE SCH (21:27)
[2018-11-06] MEDS: TAMSULOSIN HCL 0.4 MG CAP PO SCH (21:28)
[2018-11-06] MEDS: TIZANIDINE HCL 4 MG TABLET PO SCH (23:30)
[2018-11-07] MEDS: LEVOTHYROXINE SODIUM 100 MCG TABLET PO SCH (06:18)
[2018-11-07] MEDS: RASPBERRY SYRUP 5 ML UDP PO SCH ×4 (06:18→23:15)
[2018-11-07] MEDS: VANCOMYCIN HCL 125 MG/2.5ML SOLN PO SCH ×4 (06:19→23:15)
[2018-11-07] MEDS: HEPARIN STANDARD DEXTROSE 25,000 UNITS/500 ML IV SCH (07:13)
[2018-11-07 07:35] LABS: Hematocrit (blood only) 28.3 % (37-47); Mean Corpuscular Hgb Conc 31.8 g/dL (32-36); Mean Corpuscular Volume 80.6 fL (80-100); Mean Platelet Volume 10.2 fL (7.4-10.4); Platelet Count 214 K/uL (130-400); RDW Coefficient of Variation 15.8 % (11.5-14.5); RDW Standard Deviation 45.8 fL (36.4-46.3); Red Blood Count 3.51 M/uL (4.2-5.4); White Blood Count 6.51 K/uL (4.8-10.8)
[2018-11-07 07:57] LABS: INR 1.4 (0.9-1.1); Partial Thromboplastin Ratio 1.9; Prothrombin Time 13.9 Seconds (9.0-12.0)
[2018-11-07 08:04] LABS: Partial Thromboplastin Time 48.3 Seconds (21.0-31.0)
[2018-11-07 08:07] LABS: Calcium 8.4 mg/dl (8.5-10.1); Est GFR (African American) 41.7; Magnesium 1.9 mg/dl (1.8-2.4); Potassium 4.1 mmol/L (3.5-5.1)
[2018-11-07] MEDS: INSULIN ASPART 100 UNITS/ML 3 ML PEN SC SCH ×4 (08:16→21:44)
[2018-11-07] MEDS: CHOLECALCIFEROL 1,000 UNITS TAB PO SCH (08:18)
[2018-11-07] MEDS: ASPIRIN 81 MG ECTAB PO SCH (08:18)
[2018-11-07] MEDS: ESCITALOPRAM OXALATE 10 MG TAB PO SCH (08:19)
[2018-11-07] MEDS: VERAPAMIL HCL 180 MG TABCR PO SCH (08:19)
[2018-11-07] MEDS: SACCHAROMYCES BOULARDII 250 MG CAP PO SCH (08:19)
--- NOTE | 2018-11-07 11:40 | Cardiology Progress Note ---
Date of Service November 07, 2018 Assessment & Plan (1) Paroxysmal A-fib: The patient's INR is 1.4 today and trending up. I believe we can discontinue her heparin as she has been in sinus rhythm for several days. I would continue with the verapamil. (2) UTI (urinary tract infection): (3) Acute worsening of stage 3 chronic kidney disease: (4) CKD (chronic kidney disease) stage 3, GFR 30-59 ml/min: Subjective The patient had an uneventful night and has no new cardiac complaints. Telemetry indicates she remains in a sinus rhythm. INR today is 1.4. Physical Exam Vital Signs (Past 24 Hours): Last Vital Signs Temp 36.7 C 11/07/18 11:26 Pulse 71 11/07/18 11:26 Resp 16 11/07/18 11:26 BP 162/60 H 11/07/18 11:26 Pulse Ox 94 11/07/18 11:26 Physical Exam: General: no acute distress and stated age Head: normocephalic, no masses, lesions, tenderness or abnormalities Eyes: conjunctiva are pink and non-injected, sclera clear Neck: supple, no adenopathy, no bruits, normal jugular venous pulse, no hepatojugular reflux Chest: normal shape and normal respiratory effort Lungs: clear to auscultation and percussion Cardiac Exam: - regular rate & rhythm, no murmurs gallops or rubs - normal S1, normal S2 Pulses: 2(+) throughout Abdomen: abdomen soft, non-tender, no abnormal masses and no hepatosplenomegaly Musculoskeletal: no gait disturbance, no joint inflammation, no deforming arthritis Extremities: no edema and no cyanosis Neuro: grossly normal exam Results & Data Laboratory Results Laboratory Results - last 24 hr 11/06/18 11/06/18 11/06/18 11:47 16:34 20:20 WBC RBC Hgb Hct MCV MCH MCHC RDW Std Deviation RDW Coeff of Hope Plt Count MPV PT INR APTT PTT Ratio Sodium Potassium Chloride Carbon Dioxide Anion Gap BUN Creatinine Est Cr Clr Drug Dosing Est GFR ( Amer) Est GFR (Non-Af Amer) BUN/Creatinine Ratio Glucose POC Glucose 95 116 H 134 H Calcium Magnesium 11/07/18 11/07/18 11/07/18 07:01 07:01 07:01 WBC 6.51 RBC 3.51 L Hgb 9.0 L Hct 28.3 L MCV 80.6 MCH 25.6 MCHC 31.8 L RDW Std Deviation 45.8 RDW Coeff of Hope 15.8 H Plt Count 214 MPV 10.2 PT 13.9 H INR 1.4 H APTT 48.3 H* PTT Ratio 1.9 Sodium 138 Potassium 4.1 Chloride 103 Carbon Dioxide 27 Anion Gap 8.0 BUN 23 H Creatinine 1.35 H Est Cr Clr Drug Dosing 28.0 Est GFR ( Amer) 41.7 Est GFR (Non-Af Amer) 36.0 BUN/Creatinine Ratio 17.0 Glucose 129 H POC Glucose Calcium 8.4 L Magnesium 1.9 11/07/18 07:28 WBC RBC Hgb Hct MCV MCH MCHC RDW Std Deviation RDW Coeff of Hope Plt Count MPV PT INR APTT PTT Ratio Sodium Potassium Chloride Carbon Dioxide Anion Gap BUN Creatinine Est Cr Clr Drug Dosing Est GFR ( Amer) Est GFR (Non-Af Amer) BUN/Creatinine Ratio Glucose POC Glucose 130 H Calcium Magnesium Medications Administered Current Inpatient Medications Acetaminophen (Tylenol) 650 mg PO Q4H PRN PRN Reason: Pain or Fever Stop: 11/30/18 21:38 Last Admin: 11/04/18 11:30 Dose: 650 mg Aspirin (Ecotrin Ectab) 81 mg PO MoWeFr@0900 [facility] Stop: 12/02/18 08:59 Last Admin: 11/07/18 08:18 Dose: 81 mg Dextrose (Dextrose 50%) 25 - 50 ml IV UD PRN; Protocol PRN Reason: Hypoglycemia Protocol Stop: 11/30/18 21:38 Escitalopram Oxalate (Lexapro) 10 mg PO DAILY [facility] Stop: 12/01/18 08:59 Last Admin: 11/07/18 08:19 Dose: 10 mg Fluticasone Propionate (Flonase) 2 sprays KARELY HS [facility] Stop: 11/30/18 21:59 Last Admin: 11/06/18 21:27 Dose: 2 sprays Glucagon (Glucagen) 1 mg SQ UD PRN; Protocol PRN Reason: Hypoglycemia Protocol Stop: 11/30/18 21:38 Glucose (Glucose 40%) 15 - 30 gm PO UD PRN; Protocol PRN Reason: Hypoglycemia Protocol Stop: 11/30/18 21:38 Glucose (Dex4 Glucose) 4 - 8 tabs PO UD PRN; Protocol PRN Reason: Hypoglycemia Protocol Stop: 11/30/18 21:38 Insulin Aspart (Novolog Flexpen) 0 units SC ACHS [facility] Stop: 11/30/18 22:29 Last Admin: 11/07/18 08:16 Dose: 3 units Levothyroxine Sodium (Synthroid) 100 mcg PO DAILYBB NO Stop: 12/01/18 06:29 Last Admin: 11/07/18 06:18 Dose: 100 mcg Metoprolol Tartrate (Lopressor) 2.5 mg IV Q6H PRN PRN Reason: Tachycardia Stop: 12/05/18 07:59 Miscellaneous (Carbohydrates For Hypoglycemia) 15 - 30 gm PO UD PRN PRN Reason: Hypoglycemia Treatment Stop: 11/30/18 21:38 Ondansetron HCl (Zofran) 4 mg IV Q6H PRN PRN Reason: Nausea Stop: 11/30/18 21:38 Raspberry (Raspberry) 5 ml PO Q6HWA [facility] Stop: 11/16/18 00:00 Last Admin: 11/07/18 06:18 Dose: 5 ml Saccharomyces Boulardii (Florastor) 250 mg PO DAILY [facility] Stop: 12/01/18 08:59 Last Admin: 11/07/18 08:19 Dose: 250 mg Tamsulosin HCl (Flomax) 0.4 mg PO HS [facility] Stop: 11/30/18 22:29 Last Admin: 11/06/18 21:28 Dose: 0.4 mg Tizanidine HCl (Zanaflex) 4 mg PO HS [facility] Stop: 11/30/18 21:59 Last Admin: 11/06/18 23:30 Dose: 4 mg Vancomycin HCl (Vancomycin Hcl) 125 mg PO Q6HWA [facility] Stop: 11/12/18 00:00 Last Admin: 11/07/18 06:19 Dose: 125 mg Verapamil HCl (Calan Sr) 180 mg PO DAILY [facility] Stop: 12/01/18 08:59 Last Admin: 11/07/18 08:19 Dose: 180 mg Vitamin D (Vitamin D3) 2,000 units PO DAILY NO Stop: 12/01/18 08:59 Last Admin: 11/07/18 08:18 Dose: 2,000 units Warfarin Sodium (Coumadin) 5 mg PO DAILY@1600 [facility] Stop: 12/06/18 15:59 Last Admin: 11/06/18 17:55 Dose: 5 mg (1) UTI (urinary tract infection) Urinary tract infection type: acute cystitis Hematuria presence: with hematuria Indwelling urinary catheter type: Encounter type: Qualified Code(s): N30.01 - Acute cystitis with hematuria
[2018-11-07] MEDS: WARFARIN SOD 5 MG TAB PO SCH (16:09)
--- NOTE | 2018-11-07 17:00 | Hospitalist Progress Note ---
Date of Service November 07, 2018 Assessment & Plan (1) UTI (urinary tract infection): Patient is an 83 yr female with H/O DM Type II, HTN, HLD, CKD stage III, hypothyroidism who presents with nausea, emesis, loose stool times 1 day. UTI Urine Culture: E.Coli Completed ceftriaxone course Blood Culture: No growth to date Positive C.difficile test in stool --CT ABD:Liquid stool is noted throughout the colon. There is no colonic wall thickening or pericolonic inflammation. Correlate clinically for evidence of a diarrheal illness. Question cystitis. Correlation with clinical findings and urinalysis will be required. Moderate colonic diverticulosis without CT evidence of acute diverticulitis. --Continue Vancomycin Day #6 --Monitor renal function, electrolytes --Diarrhea much improved Paroxysmal Atrial Fibrillation New diagnosis Continue Verapamil for rate control Heparin ggt discontinued as patient in sinus Continue Coumadin Moitor INR:1.2>>1.4 Appreciate Cardiology Input (2) Acute worsening of stage 3 chronic kidney disease: Likely prerenal and also diuretic/LOPEZ use Cr:2.14>>1.82>>1.52>>1.35 Hold HCTZ/Lisinopril for now Received IV fluids Anemia of chronic Kidney disease Monitor CBC FOBT negative Iron studies, LDH, peripheral smear done (3) Generalized weakness: PT/OT (4) T2DM (type 2 diabetes mellitus): TDM II without use of superintendent container terminal insulin A1C: 7.4 Continue Novolog sliding scale per protocol (5) HTN (hypertension): continue verapamil hold lisinopril/hctz for now (6) Hypothyroidism: continue levothyroxine (7) DVT prophylaxis: Coumadin Subjective Patient is seen and examined at bedside Heparin ggt discontinued today No new complaints Diarrhea continues to improve Denies chest pain, dyspnea, dysuria, abd pain, palpitations In Sinus Physical Exam 2 Vital Signs (Past 24 Hours): Last Vital Signs Temp 36.9 C 11/07/18 15:49 Pulse 71 11/07/18 15:49 Resp 17 11/07/18 15:49 BP 149/68 H 11/07/18 15:49 Pulse Ox 91 11/07/18 15:49 Physical Exam: Physical Exam: Vitals signs as noted above General Appearance:Moderately built and nourished, no apparent distress Head: normocephalic, Atraumatic Eyes: normal inspection, EOMI Neck: supple, Trachea midline Respiratory/Chest: Normal breath sounds, CTA Cardiovascular: S1, S2, No murmur Abdomen/GI:Soft, Non tender, Bowel sounds present Extremities/Musculoskelatal:normal inspection, no edema Neurologic/Psych:AAOX3, grossly no focal neurological deficits Skin: normal color, warm Results & Data Laboratory Results Short CBC 11/07/18 Range/Units 07:01 WBC 6.51 (4.8-10.8) K/uL Hgb 9.0 L (12.0-16.0) g/dL Hct 28.3 L (37-47) % Plt Count 214 (130-400) K/uL BMP 11/07/18 07:01 Sodium 138 Potassium 4.1 Chloride 103 Carbon Dioxide 27 BUN 23 H Creatinine 1.35 H Glucose 129 H Calcium 8.4 L _ (1) UTI (urinary tract infection) Urinary tract infection type: acute cystitis Hematuria presence: with hematuria Indwelling urinary catheter type: Encounter type: Qualified Code( s): N30.01 - Acute cystitis with hematuria (2) T2DM (type 2 diabetes mellitus) Diabetes mellitus senior living insulin use: without superintendent container terminal use Diabetes mellitus complication status: with kidney complications Diabetes mellitus complication detail: with chronic kidney disease Diabetic retinopathy severity : Proliferative retinopathy type: Diabetes mellitus macular edema: Laterality: Chronic kidney disease stage: stage 3 (moderate) Qualified Code(s ): E11.22 - Type 2 diabetes mellitus with diabetic chronic kidney disease; N18.3 - Chronic kidney disease, stage 3 (moderate) (3) HTN (hypertension) Hypertension type: essential hypertension Qualified Code(s): I10 - Essential (primary) hypertension (4) Hypothyroidism Hypothyroidism type: unspecified Qualified Code(s): E03.9 - Hypothyroidism, unspecified
[2018-11-07] MEDS: FLUTICASONE PROPIONATE NA SPR 16 GM BTL NAE SCH (21:46)
[2018-11-07] MEDS: TAMSULOSIN HCL 0.4 MG CAP PO SCH (21:46)
[2018-11-07] MEDS: TIZANIDINE HCL 4 MG TABLET PO SCH (23:14)
[2018-11-08] MEDS: RASPBERRY SYRUP 5 ML UDP PO SCH ×2 (05:12→12:03)
[2018-11-08] MEDS: LEVOTHYROXINE SODIUM 100 MCG TABLET PO SCH (05:12)
[2018-11-08] MEDS: VANCOMYCIN HCL 125 MG/2.5ML SOLN PO SCH ×2 (05:12→12:05)
[2018-11-08 06:36] LABS: BUN Creatinine Ratio 17.7 (10-20); Calcium 8.5 mg/dl (8.5-10.1); Creatinine Clr Calc Pharmacy 24.2 ml/min; Est GFR (African American) 38.9; Est GFR (Non-African American) 33.5; Potassium 4.3 mmol/L (3.5-5.1)
[2018-11-08 06:55] LABS: INR 1.9 (0.9-1.1); Prothrombin Time 18.7 Seconds (9.0-12.0)
[2018-11-08] MEDS: CHOLECALCIFEROL 1,000 UNITS TAB PO SCH (07:24)
[2018-11-08] MEDS: SACCHAROMYCES BOULARDII 250 MG CAP PO SCH (07:24)
[2018-11-08] MEDS: ESCITALOPRAM OXALATE 10 MG TAB PO SCH (07:24)
[2018-11-08] MEDS: VERAPAMIL HCL 180 MG TABCR PO SCH (07:24)
[2018-11-08] MEDS: INSULIN ASPART 100 UNITS/ML 3 ML PEN SC SCH ×2 (08:08→12:03)
--- NOTE | 2018-11-08 12:48 | Hospitalist Progress Note ---
Date of Service November 08, 2018 Assessment & Plan (1) UTI (urinary tract infection): Patient is an 83 yr female with H/O DM Type II, HTN, HLD, CKD stage III, hypothyroidism who presents with nausea, emesis, loose stool times 1 day. UTI Urine Culture: E.Coli Completed ceftriaxone course Blood Culture: No growth to date Positive C.difficile test in stool --CT ABD:Liquid stool is noted throughout the colon. There is no colonic wall thickening or pericolonic inflammation. Correlate clinically for evidence of a diarrheal illness. Question cystitis. Correlation with clinical findings and urinalysis will be required. Moderate colonic diverticulosis without CT evidence of acute diverticulitis. --Continue Vancomycin Day --Monitor renal function, electrolytes --Diarrhea much improved Paroxysmal Atrial Fibrillation New diagnosis Continue Verapamil for rate control Heparin ggt discontinued as patient in sinus Continue Coumadin Moitor INR:1.2>>1.4>>1.9 Appreciate Cardiology Input (2) Acute worsening of stage 3 chronic kidney disease: Likely prerenal and also diuretic/LOPEZ use Cr:2.14>>1.82>>1.52>>1.35 Hold HCTZ/Lisinopril for now Received IV fluids Anemia of chronic Kidney disease Monitor CBC FOBT negative Iron studies, LDH, peripheral smear done (3) Generalized weakness: PT/OT (4) T2DM (type 2 diabetes mellitus): TDM II without use of rail car unloader insulin A1C: 7.4 Continue Novolog sliding scale per protocol (5) HTN (hypertension): continue verapamil hold lisinopril/hctz for now (6) Hypothyroidism: continue levothyroxine (7) DVT prophylaxis: Coumadin Subjective Patient is seen and examined at bedside Doing well today Still has some diarrhea No new complaints Denies chest pain, dyspnea, dysuria, abd pain, palpitations Physical Exam 2 Vital Signs (Past 24 Hours): Last Vital Signs Temp 37.2 C 11/08/18 12:12 Pulse 65 11/08/18 12:12 Resp 18 11/08/18 12:12 BP 142/64 H 11/08/18 12:12 Pulse Ox 93 11/08/18 12:12 Physical Exam: Physical Exam: Vitals signs as noted above General Appearance:Moderately built and nourished, no apparent distress Head: normocephalic, Atraumatic Eyes: normal inspection, EOMI Neck: supple, Trachea midline Respiratory/Chest: Normal breath sounds, CTA Cardiovascular: S1, S2, No murmur Abdomen/GI:Soft, Non tender, Bowel sounds present Extremities/Musculoskelatal:normal inspection, no edema Neurologic/Psych:AAOX3, grossly no focal neurological deficits Skin: normal color, warm Results & Data Laboratory Results [facility] 11/08/18 05:29 Sodium 136 Potassium 4.3 Chloride 103 Carbon Dioxide 27 BUN 25 H Creatinine 1.43 H Glucose 120 H Calcium 8.5 Diagnostic Findings [facility] 11/08/18 05:29 Sodium 136 Potassium 4.3 Chloride 103 Carbon Dioxide 27 BUN 25 H Creatinine 1.43 H Glucose 120 H Calcium 8.5 _ (1) UTI (urinary tract infection) Urinary tract infection type: acute cystitis Hematuria presence: with hematuria Indwelling urinary catheter type: Encounter type: Qualified Code( s): N30.01 - Acute cystitis with hematuria (2) T2DM (type 2 diabetes mellitus) Diabetes mellitus rail car unloader insulin use: without rail car unloader use Diabetes mellitus complication status: with kidney complications Diabetes mellitus complication detail: with chronic kidney disease Diabetic retinopathy severity : Proliferative retinopathy type: Diabetes mellitus macular edema: Laterality: Chronic kidney disease stage: stage 3 (moderate) Qualified Code(s ): E11.22 - Type 2 diabetes mellitus with diabetic chronic kidney disease; N18.3 - Chronic kidney disease, stage 3 (moderate) (3) HTN (hypertension) Hypertension type: essential hypertension Qualified Code(s): I10 - Essential (primary) hypertension (4) Hypothyroidism Hypothyroidism type: unspecified Qualified Code(s): E03.9 - Hypothyroidism, unspecified
--- NOTE | 2018-11-08 13:02 | Discharge Summary ---
Date of Service November 08, 2018 Admission HPI Per Admitting Provider This is a 83-year-old female who has a significant past medical history of T2 DM , HTN, HLD, CKD stage III, hypothyroidism who presents to [facility] secondary to nausea, emesis, loose stool times 1 day. Patient was in her normal state of health until 11 AM today when she developed nausea, dry heaves, emesis x1 and loose stool x1. "It was coming out both ends." "Why does this always come on so sudden?" Pt has history of UTI in past and follows Dr. Harrington urology who recently started her on flomax. She hasn't had episode in 4- 5 months. Last time she had similar sx she was dx with cdiff after a UTI treatment. She states usually when she gets a UTI she is asymptomatic. She denies f/c/s, dizziness, lightheaded, chest pain, sob, palpitations, hemetemesis , hemoptysis, abdominal pain, dysuria, hematuria, flank pain, increased urg/ freq with urination, melena. Episode of loose stool was x 1. Daughter is at bedside. Admission Exam Per Admitting Provider Gen: Petite, elderly F, WD/WN, NAD, sitting up in bed, pleasant, conversing easily Head: Normocephalic, Atraumatic Eyes: Sclera normal, no conjunctival injection, PERRLA, EOMI ENT: Gross hearing intact, normal pharynx, mucous membranes moist Neck: supple, no adenopathy, No JVD, no bruit, Resp: Clear to auscultation b/l, no wheeze, rales, rhonchi. 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 Extremities: No edema bilaterally Skin: warm, moist, no rash, moderate turgor, cap refill < 2sec Neuro: Alert and oriented x 3, speech normal, good mood/affect, cran nerve 2-12 intact grossly : deferred Principal Diagnosis Discharge Information Discharge Diagnosis UTI C.diff colitis Atrial Fibrillation Discharge Goals Decrease discomfort,Improve disease control, Improve function Discharge Activity Limitations Resume your previous activity Discharge Data Allergies Allergy/AdvReac Type Severity Reaction Status Date / Time Bactrim Allergy Intermediate Rash Verified 02/21/18 20:57 sulfamethoxazole Allergy Intermediate Rash Verified 10/31/18 15:56 trimethoprim Allergy Intermediate Rash Verified 10/31/18 15:56 tetanus toxoid, adsorbed Allergy Unknown HIVES Verified 10/31/18 15:56 tetracycline Allergy Unknown hives Verified 10/31/18 15:56 rosuvastatin AdvReac Intermediate Muscle Verified 10/31/18 15:56 stiffness Consultations 10/31/18 18:56 ED Decision to Admit Stat 10/31/18 21:39 Consult Case Management - Discharge Planning Routine 11/04/18 23:29 Consult Cardiology Routine Procedures Performed CT ABD: 1. Significantly suboptimal examination without oral and IV contrast. 2. Liquid stool is noted throughout the colon. There is no colonic wall thickening or pericolonic inflammation. Correlate clinically for evidence of a diarrheal illness. 3. Question cystitis. Correlation with clinical findings and urinalysis will be required. 4. Moderate colonic diverticulosis without CT evidence of acute diverticulitis. 5. Additional findings as above. Ordered Studies 10/31/18 16:18 CT abd pelvis wo con Stat Hospital Course (1) UTI (urinary tract infection): Patient is an 83 yr female with H/O DM Type II, HTN, HLD, CKD stage III, hypothyroidism who presents with nausea, emesis, loose stool times 1 day. UTI Urine Culture: E.Coli Completed ceftriaxone course Blood Culture: No growth to date Positive C.difficile test in stool --CT ABD:Liquid stool is noted throughout the colon. There is no colonic wall thickening or pericolonic inflammation. Correlate clinically for evidence of a diarrheal illness. Question cystitis. Correlation with clinical findings and urinalysis will be required. Moderate colonic diverticulosis without CT evidence of acute diverticulitis. --Continue Vancomycin Day --Monitor renal function, electrolytes --Diarrhea much improved Paroxysmal Atrial Fibrillation New diagnosis Continue Verapamil for rate control Heparin ggt discontinued as patient in sinus Continue Coumadin Moitor INR:1.2>>1.4>>1.9 Appreciate Cardiology Input (2) Acute worsening of stage 3 chronic kidney disease: Likely prerenal and also diuretic/LOPEZ use Cr:2.14>>1.82>>1.52>>1.35 Hold HCTZ/Lisinopril for now Received IV fluids Anemia of chronic Kidney disease Monitor CBC FOBT negative Iron studies, LDH, peripheral smear done (3) Generalized weakness: PT/OT (4) T2DM (type 2 diabetes mellitus): TDM II 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 A1C: 7.4 Continue Novolog sliding scale per protocol (5) HTN (hypertension): continue verapamil hold lisinopril/hctz for now (6) Hypothyroidism: continue levothyroxine (7) DVT prophylaxis: Coumadin Total Time Total Time Spent Total Time Spent (In Minutes): 43 minutes Total Time Includes: Examination of the Patient, Discharge Planning, Medication Reconciliation, Communication With Other Providers and Other Discharge Plan Discharge Items Patient Disposition: Home - Home Health Services Reason For Visit: UTI,CRISPIN Discharge Diagnosis: UTI C.diff colitis Atrial Fibrillation Discharge Goals: Decrease discomfort, Improve disease control and Improve function Activity: Resume your previous activity Exercise/Sports: Gradually increase as tolerated Non-emergency contact: Primary Care Provider and [employer] Call non-emergency contact if: you have any medication questions, your symptoms worsen, your pain is not controlled, your pain is worsening, your pain is unusual for you, your pain is concerning for you and you have a fever Diet: Carb Consistent or DM2 Addtl Provider Instructions: Follow up with your PCP on 11/14/18 at 11:00AM Follow up with your [employer] Officer in 2 weeks Complete the antibiotic course as prescribed Get PT/INR check tomorrow (11/09/18) and follow up with [facility] for further Coumadin dosing Take Coumadin 4mg today (11/08/18). Your PT/INR is 1.9 today (11/08/18) Seek immediate medical attention if your symptoms reoccur or worsen Prescriptions: New vancomycin 125 mg capsule 125 mg PO Q6H 7 Days Qty: 28 RF: 0 warfarin 2 mg tablet 2 mg PO UD Qty: 60 RF: 0 warfarin 1 mg tablet 1 mg PO UD Qty: 90 RF: 0 Continue tizanidine 4 mg tablet 4 mg PO HS RF: 0 verapamil 180 mg tablet extended release 180 mg PO DAILY RF: 0 aspirin [Aspirin Low Dose] 81 mg Tablet,Delayed Release (Dr/Ec) 81 mg PO 3XWK RF: 0 glimepiride 2 mg tablet 2 mg PO BID RF: 0 zinc gluconate 50 mg Tablet 12.5 mg PO DAILY RF: 0 fluticasone [Flonase Allergy Relief] 50 mcg/actuation Brady,Suspension 2 spray INTRANASAL HS RF: 0 escitalopram oxalate 10 mg tablet 10 mg PO DAILY RF: 0 cholecalciferol (vitamin D3) [Vitamin D3] 2,000 unit Capsule 2,000 unit PO DAILY RF: 0 levothyroxine 100 mcg tablet 100 mcg PO DAILY RF: 0 lisinopril-hydrochlorothiazide 10-12.5 mg Tablet 1 tab PO DAILY RF: 0 tamsulosin [Flomax] 0.4 mg Capsule 0.4 mg PO HS RF: 0 Stand-Alone Forms: [facility] Discharge Orders: Discharge Order (Routine); Ordered 11/08/18 Ordered By: Walter Zhu Admission Data Admit Date/Time: 10/31/18 19:35 Attending Provider: Walter Zhu Admit Provider: Luis Brooks Primary Care Provider: Luis Whalen Other Providers: Rome Dhaliwal ; Jc Farrar ; Faheem Velasco Service: Telemetry Other Interventions: Discharge Summary Assessment (RN) Last Done: 11/08/18 13:30 Pending Studies at Discharge: No DC Date/Time DO NOT enter until pt leaves facility: 11/08/18 15:15
[2018-11-08] MEDS ORDERED: WARFARIN SOD 4 MG TAB PO SCH (16:00)
== END 2018-11-08 15:15 | disposition home health service (06) | DRG 372 ==
LOC: ED 13:58 → 2N 19:35 → SUATTDRO 19:35 → 2N 20:51
DX: K57.90 Diverticulosis of intestine, part unspecified, without perforation or abscess without bleeding; D63.1 Anemia in chronic kidney disease; Z80.3 Family history of malignant neoplasm of breast; E86.0 Dehydration; Z82.49 Family history of ischemic heart disease and other diseases of the circulatory system; Z88.1 Allergy status to other antibiotic agents; R53.1 Weakness; Z87.440 Personal history of urinary (tract) infections; E03.9 Hypothyroidism, unspecified; Z79.84 Long term (current) use of oral hypoglycemic drugs; Z88.8 Allergy status to other drugs, medicaments and biological substances; Z51.81 Encounter for therapeutic drug level monitoring; B96.20 Unspecified Escherichia coli [E. coli] as the cause of diseases classified elsewhere; Z79.899 Other long term (current) drug therapy; Z79.82 Long term (current) use of aspirin; I12.9 Hypertensive chronic kidney disease with stage 1 through stage 4 chronic kidney disease, or unspecified chronic kidney disease; N39.0 Urinary tract infection, site not specified; N18.3 Chronic kidney disease, stage 3 (moderate); Z88.7 Allergy status to serum and vaccine; A04.71 Enterocolitis due to Clostridium difficile, recurrent; E11.22 Type 2 diabetes mellitus with diabetic chronic kidney disease; Z88.2 Allergy status to sulfonamides; I48.0 Paroxysmal atrial fibrillation; Z86.19 Personal history of other infectious and parasitic diseases; Z87.891 Personal history of nicotine dependence; N17.9 Acute kidney failure, unspecified

== ENCOUNTER 2020-06-25 18:42 | Inpatient (IN) ==
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
[2020-06-25 19:59] LABS: Basophils # (auto) 0.02 K/uL (0-0.2); Basophils % (auto) 0.1 %; Eosinophils # (auto) 0.01 K/uL (0-0.5); Hemoglobin 10.3 g/dL (12.0-16.0); Immature Granulocytes # (auto) 0.08 K/uL (0.00-0.02); Immature Granulocytes % (auto) 0.4 %; Lymphocytes # (auto) 2.45 K/uL (1.2-3.4); Lymphocytes % (auto) 10.9 %; Mean Corpuscular Hemoglobin 24.8 pg (25-34); Mean Corpuscular Hgb Conc 30.3 g/dL (32-36); Mean Corpuscular Volume 81.9 fL (80-100); Mean Platelet Volume 10.1 fL (7.4-10.4); Monocytes # (auto) 1.13 K/uL (0.11-0.59); Neutrophils # (auto) 18.81 K/uL (1.4-6.5); Neutrophils % (auto) 83.6 %; Platelet Count 230 K/uL (130-400); RDW Standard Deviation 48.4 fL (36.4-46.3); Red Blood Count 4.15 M/uL (4.2-5.4)
[2020-06-25 20:01] LABS: Appearance Urine Turbid (Clear); Bacteria Urine Automated 4+ (Negative); Bilirubin Urine Negative (Negative); Blood Urine 3+ (Negative); Color Urine Yellow; Epithelial Cell Urine Auto >30 /lpf (0-5); Glucose Urine UA Negative (Negative); Ketones Urine Trace (Negative); Leukocyte Esterase Urine 3+ (Negative); Nitrite Urine Negative (Negative); Protein Urine 1+ (Negative); Specific Gravity Urine 1.015 (1.000-1.030); Urobilinogen Urine Negative (Negative); WBC Urine Automated >30 /hpf (0-5)
--- NOTE | 2020-06-25 20:14 | CT Scan Report ---
CT SCAN OF THE BRAIN WITHOUT IV CONTRAST CLINICAL HISTORY: Strokelike symptoms. COMPARISON STUDY: CT of the brain dated 12/25/2019. TECHNIQUE: Unenhanced axial CT scan of the brain is performed from the vertex to the skull base. A do se lowering technique was utilized adhering to the principles of ALARA. CT DOSE: 537.48 mGy.cm FINDINGS: Brain parenchyma: There are age-related involutional changes noting mild to moderate subcortical and periventricular microangiopathic change. There is no hemorrhage, mass effect, or evidence of acute t erritorial ischemia by CT criteria. Cheema-white matter differentiation is preserved. No extra-axial fl uid collection is seen. Ventricles, sulci, cisterns: Prominent secondary to involutional change. Intracranial vasculature: There is atherosclerotic calcification of the cavernous carotid and vertebr al arteries. Calvarium: The skeletal structures are osteopenic. No depressed calvarial fracture is identified. Soft tissues: There is left posterior parieto-occipital scalp contusion. Sinuses and mastoids: The visualized paranasal sinuses are clear. The mastoid air cells are well pneu matized. Orbits: The bony orbits are grossly intact. There are bilateral ocular lens implants IMPRESSION: 1. There is no hemorrhage, mass effect, or evidence of acute territorial ischemia by CT criteria. 2. Left posterior parieto-occipital scalp contusion. ACT 112: Negative or not required by law. Electronically signed by: Dion Brady M.D. 06/25/2020 8:13 PM
--- NOTE | 2020-06-25 20:24 | XRay Report ---
SINGLE VIEW CHEST CLINICAL HISTORY: Generalized weakness. FINDINGS: An AP, portable, upright chest radiograph is compared to study dated 04/03/2019 and correlat ed with chest CT dated 12/25/2019. The examination is degraded by portable technique and patient rotati on. The cardiomediastinal silhouette is unremarkable noting atherosclerotic calcification of the th oracic aorta. There is bibasilar scarring/atelectasis. No airspace consolidation or large pleural eff usion is identified. No pneumothorax is seen. The skeletal structures are osteopenic. The bony thorax is grossly intact. IMPRESSION: No active disease in the chest. ACT 112: Negative or not required by law. Electronically signed by: Dion Brady M.D. 06/25/2020 8:23 PM
[2020-06-25 20:27] LABS: Alanine Aminotransferase 36 U/L (12-78); Albumin Globulin Ratio 0.8 (0.9-2); Albumin Level 3.5 gm/dl (3.4-5.0); Alkaline Phosphatase 78 U/L (45-117); Aspartate Aminotransferase 84 U/L (15-37); Bilirubin,Total 0.6 mg/dl (0.2-1); Blood Urea Nitrogen 31 mg/dl (7-18); Carbon Dioxide 26 mmol/L (21-32); Chloride 101 mmol/L (98-107); Est GFR (African American) 26.5; Est GFR (Non-African American) 22.9; Globulin 4.2 gm/dl (2.5-4.0); Glucose 315 mg/dl (70-99); Potassium 4.7 mmol/L (3.5-5.1); Sodium 136 mmol/L (136-145); Thyroid Stimulating Hormone 0.999 uIu/ml (0.300-4.500); Total Protein 7.7 gm/dl (6.4-8.2)
[2020-06-25] MEDS ORDERED: PIPERACILLIN/TAZOBACTAM 4.5 GM/120 ML BAG IV ONE (20:32)
[2020-06-25] MEDS ORDERED: PIPERACILL/TAZOBAC CONSULT ACTIVE PRN (20:32)
--- NOTE | 2020-06-25 20:38 | XRay Report ---
LUMBAR SPINE 3 VIEWS CLINICAL HISTORY: Fall. Low back pain. FINDINGS: 3 views of the lumbar spine are correlated with abdominal CT dated 12/25/2019. The skeletal structures are osteopenic. There is no radiographic evidence of fracture or malalignment. Vertebral b aaron height and alignment are maintained. Moderate to severe lumbar levoscoliosis is centered at L3. L arge anterior and marginal osteophytes are seen throughout. The transverse and spinous processes are intact. Advanced facet arthropathy is seen in the lower lumbar region. Moderate to advanced disc spac e narrowing is seen throughout the lumbar spine at all lumbar levels with the exception of L5-S1. Pos terior disc osteophyte complexes are seen at all lumbar levels likely contribute to multilevel acquir ed compromise of the central canal. Degenerative endplate sclerosis is seen at L3-L4. The visualized bony pelvis appears intact. There is a nonobstructed abdominal bowel gas pattern. Numerous phlebolith s are observed in the pelvis. Suture material projects over the right upper quadrant. There is advanc ed atherosclerotic calcification of the abdominal aorta. IMPRESSION: 1. There is no radiographic evidence of acute fracture or malalignment involving the lumbosacral spin e. 2. Osteopenia with advanced lumbar sacral spondylosis and scoliosis as above. ACT 112: Negative or not required by law. Electronically signed by: Dion Brady M.D. 06/25/2020 8:37 PM
[2020-06-25 20:40] LABS: Beta-Hydroxybutyrate 6.34 mg/dl (0.2-2.81)
[2020-06-25 21:08] LABS: INR 1.7 (0.9-1.1); Prothrombin Time 17.4 Seconds (9.0-12.0)
[2020-06-25] MEDS ORDERED: NovoLIN-R INSULIN PER UNIT CHARGE IV STA (23:54)
[2020-06-25] MEDS ORDERED: INSULIN GLARGINE SOLOSTAR 100 UNITS/ML 3 ML PEN SC STA (23:55)
[2020-06-26] MEDS ORDERED: VANCOMYCIN HCL 1,000 MG in SODIUM CHLORIDE 0.9% 250 ML IV SCH (00:23)
[2020-06-26] MEDS ORDERED: VANCOMYCIN CONSULT ACTIVE PRN (00:23)
[2020-06-26] MEDS ORDERED: SODIUM CHLORIDE 0.9% 500 ML IV SCH (00:30)
[2020-06-26] MEDS ORDERED: FLUTICASONE PROPIONATE NA SPR 16 GM BTL PRN (01:03)
[2020-06-26] MEDS ORDERED: ONDANSETRON INJ 2 MG/ML 2 ML VIAL IV PRN (01:03)
[2020-06-26] MEDS ORDERED: tiZANidine HCL 4 MG TABLET PO PRN (01:03)
[2020-06-26] MEDS ORDERED: NITROGLYCERIN SL 0.4 MG/TAB TAB SL PRN (01:03)
[2020-06-26] MEDS ORDERED: GLUCOSE 10 TABS/TUBE PO PRN (02:45)
[2020-06-26] MEDS ORDERED: GLUCAGON FOR INJ 1 MG VIAL IM PRN (02:45)
[2020-06-26] MEDS ORDERED: CARBOHYDRATES FOR HYPOGLYCEMIA PO PRN (02:45)
[2020-06-26] MEDS ORDERED: DEXTROSE 50% 50 ML SYRINGE IV PRN (02:45)
[2020-06-26] MEDS ORDERED: VANCOMYCIN HCL 1,000 MG in SODIUM CHLORIDE 0.9% 250 ML IV ONE (02:45)
[2020-06-26] MEDS ORDERED: GLUCOSE 40% GEL 15 GM TUBE PO PRN (02:45)
[2020-06-26] MEDS: SODIUM CHLORIDE 0.9% 1000ML 1,000 ML IV SCH ×3 (02:47→19:20)
--- NOTE | 2020-06-26 03:01 | History and Physical Report ---
DATE OF ADMISSION: 06/25/2020 CHIEF COMPLAINT: Fall at home and found to be having UTI and sepsis and non-ST elevation myocardial infarction. HISTORY OF PRESENT ILLNESS: This is an 85-year-old female with past medical history significant for type 2 diabetes, hypothyroidism, chronic kidney disease stage IV, paroxysmal atrial fibrillation, hypertension, history of subarachnoid bleed, history of MRSA infection, history of depression, statin intolerance, who lives alone, ambulates with a walker, was brought in by daughter because she fell as she slid from the chair. The patient states she lives alone. Daughter lives close by. She gets help 3 times a week. Daughter was visiting her. She was sleeping on the chair when she slid and fell down. At that time, daughter thought she might be on weak on the left side and thought she may be having a stroke and she was brought in here. The patient except for urinary symptoms, she said she was fine and she wanted to go back home, [place] [id number] and her troponin was 1.1 and urine was positive and lactic acid was 3.5. She was slightly tachycardic when she came in, but blood pressure was okay and she was saturating okay on room air. Currently, the patient denies any other complaints. She thought she might have UTI, but she does not know how long she has symptoms. Denies any burning micturitions. Possibly increased urination. Denies any other problems, no chest pain, no shortness of breath, no cough. Appetite is okay. No headache, no blurred visions. Hard of hearing. She always has some runny nose and some slight clearing of throat from the postnasal drip. No difficulty swallowing. No nausea, no abdominal pain. No swelling in the legs. The patient says when she slipped from the chair, there was no loss of consciousness. ALLERGIES: BACTRIM, TETANUS, TETRACYCLINE, LOVASTATIN. PAST MEDICAL HISTORY: As mentioned above. PAST SURGICAL HISTORY: Biopsy of the breast, colonoscopy, dental surgery, injection of the lumbar spine, Pap screen. MEDICATIONS: The patient is on aspirin 81 mg p.o. daily, calcium 500 mg p.o. daily, vitamin D 2000 units p.o. daily, Colace 100 mg p.o. p.m., ferrous sulfate 325 mg p.o. a.m., Flonase 2 sprays intranasally p.r.n., glipizide 5 mg p.o. b.i.d., levothyroxine 100 mcg p.o. daily, lisinopril 10 mg p.o. daily, Crestor 10 mg at bedtime, Flomax 0.4 mg p.o. at bedtime, tizanidine 4 mg p.o. 8 hours p.r.n., verapamil 180 mg p.o. a.m., Coumadin as directed, zinc 50 mg p.o. daily. FAMILY HISTORY: Significant for mother had breast cancer, hypertension; brother has hypertension. SOCIAL HISTORY: Currently lives alone. Daughter lives close by. No smoking, no alcohol, no drug use. REVIEW OF SYSTEMS: As per HPI. Rest of review of systems negative. PHYSICAL EXAMINATION: GENERAL: The patient is old and frail, not in acute distress.hard of hearing. VITAL SIGNS: Temperature 36.6, pulse 100, respiratory rate 16, blood pressure 125/62, oxygen 96% on room air. HEENT: Pupils equal, round, and reactive to light. No pallor, no icterus. Oral mucosa moist. NECK: No JVD, no neck masses. CARDIOVASCULAR: S1, S2 heard. Tachycardia. No murmur, no gallop. RESPIRATORY SYSTEM: Normal AP diameter. No accessory muscle use. No wheezing, no crackles. ABDOMEN: Soft, bowel sounds present, nontender. No distention. CENTRAL NERVOUS SYSTEM: Cranial nerves II-XII grossly intact, no facial droop, speech clear. nonfocal. Power 4/5 to 5/5 in all extremities. EXTREMITIES: No edema, no erythema. LABORATORY DATA: WBC 22, hemoglobin 10.3, hematocrit 34, platelets 230. PT 17.4, INR 1.7. Sodium 136, potassium 4.7, chloride 101, bicarbonate 26, BUN 31, creatinine 1.94, serum glucose 315. Lactate 3.8, calcium 9, total bilirubin 0.6, AST 84, ALT 36, alkaline phosphatase 78. Troponin I of 1.15. TSH 0.99. Urinalysis positive for nitrite, positive for leukocyte esterase and urine bacteria +4. IMAGING DATA: Lumbar spine x-ray, no acute findings. CT of the head, left posterior parieto-occipital scalp contusion. Chest x-ray, no active disease in the chest. EKG: Accelerated junctional rhythm with rate of 99, left axis deviation. ASSESSMENT AND PLAN: This is an 85-year-old female who presents with fall at home, and found to be in sepsis, and non ST elevation myocardial infarction. 1. Sepsis. Meets criteria for sepsis with elevated leukocytosis, tachycardia, elevated lactic acid, and urinary tract infection. We will give IV fluids. Blood pressure is okay currently. Zosyn was given in the ER, which we will continue. We will also add vancomycin. Follow the cultures. Follow the repeat lactic acids. Closely monitor in the tele floor. 2. Non-ST elevation myocardial infarction, troponin I of 1.15. EKG has a junctional rhythm, Demand ischemia possibly secondary to sepsis. The patient does not have chest pain or shortness of breath. We will follow the serial enzymes, echocardiogram. The patient is on Coumadin. INR is 1.7. 3. Fall mostly from above. Ct head shows left parieto-occipital contusion.pt/ot when stable. 4. History of atrial fibrillation, continue verapamil withholding parameters, and continue Coumadin. We will follow the PT/INR. 5. History of hypertension. Continue verapamil, withholding parameters. Hold lisinopril for now. Monitor blood pressure. 6. History of diabetes. Hold glipizide. Blood sugars were running high. We will give 1 dose of IV insulin [address] on Lantus 5 units b.i.d. and insulin sliding scale and follow the blood sugars closely. 7. Hypothyroidism. Continue Synthroid. 8. Hyperlipidemia. Continue statin. 9. Acute kidney injury on chronic kidney disease stage IV. Baseline creatinine around 1.5 to 1.7, currently creatinine of 1.9. Getting fluids. We will follow the labs in the a.m. 10. History of subarachnoid bleed. 11. History of methicillin-resistant Staphylococcus aureus infection. 12. History of a mild episode of depression. 13. Deep venous thrombosis prophylaxis, on Coumadin. INR is 1.7. We will place her on heparin 5000 units b.i.d. until INR is therapeutic. DISPOSITION: Admit to tele floor. PT and OT prior to discharge. Social service to help with discharge planning. LOUANN
[2020-06-26] MEDS: INSULIN GLARGINE SOLOSTAR 100 UNITS/ML 3 ML PEN SC SCH ×2 (03:18→20:37)
[2020-06-26] MEDS: INSULIN ASPART 100 UNITS/ML 3 ML PEN SC SCH ×5 (03:21→20:38)
[2020-06-26] MEDS ORDERED: PIPERACILLIN/TAZOBACTAM 3.375 GM in DEXTROSE 5% 100 ML IV SCH (04:00)
[2020-06-26 05:47] LABS: Basophils # (auto) 0.02 K/uL (0-0.2); Basophils % (auto) 0.1 %; Eosinophils # (auto) 0.01 K/uL (0-0.5); Eosinophils % (auto) 0.1 %; Hematocrit (blood only) 26.8 % (37-47); Hemoglobin 8.8 g/dL (12.0-16.0); Immature Granulocytes # (auto) 0.05 K/uL (0.00-0.02); Immature Granulocytes % (auto) 0.4 %; Lymphocytes # (auto) 2.44 K/uL (1.2-3.4); Lymphocytes % (auto) 17.7 %; Mean Corpuscular Hemoglobin 26.3 pg (25-34); Mean Corpuscular Hgb Conc 32.8 g/dL (32-36); Mean Corpuscular Volume 80.2 fL (80-100); Mean Platelet Volume 9.6 fL (7.4-10.4); Monocytes # (auto) 1.16 K/uL (0.11-0.59); Monocytes % (auto) 8.4 %; Neutrophils % (auto) 73.3 %; Platelet Count 161 K/uL (130-400); RDW Coefficient of Variation 15.8 % (11.5-14.5); RDW Standard Deviation 46.7 fL (36.4-46.3); Red Blood Count 3.34 M/uL (4.2-5.4); White Blood Count 13.78 K/uL (4.8-10.8)
[2020-06-26 06:01] LABS: INR 1.8 (0.9-1.1); Prothrombin Time 18.7 Seconds (9.0-12.0)
[2020-06-26] MEDS: LEVOTHYROXINE SODIUM 100 MCG TABLET PO SCH (06:05)
[2020-06-26 06:23] LABS: BUN Creatinine Ratio 20.2 (10-20); Calcium 8.1 mg/dl (8.5-10.1); Creatinine Clr Calc Pharmacy 21.5 ml/min; Est GFR (African American) 35.9; Magnesium 1.8 mg/dl (1.8-2.4)
[2020-06-26 06:33] LABS: Troponin I 2.21 ng/ml (0-0.045)
[2020-06-26 06:39] LABS: Estimated Average Glucose 166 mg/dl; Hemoglobin A1C 7.4 % (4.5-5.6)
[2020-06-26] MEDS: CALCIUM CARBONATE 1250MG TAB PO SCH (08:02)
[2020-06-26] MEDS: CHOLECALCIFEROL 1,000 UNITS 25 MCG TAB PO SCH (08:02)
[2020-06-26] MEDS: ASPIRIN 81 MG ECTAB PO SCH (08:02)
[2020-06-26] MEDS: FERROUS SULFATE 325 MG TAB PO SCH (08:02)
[2020-06-26] MEDS: HEPARIN SOD 5,000 UNIT/0.5 ML VIAL SQ SCH ×2 (08:03→20:37)
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
[2020-06-26] MEDS ORDERED: lisinopril 10 MG TAB PO SCH (09:00)
--- NOTE | 2020-06-26 09:27 | Hospitalist Progress Note ---
Date of Service June 26, 2020 Assessment & Plan (1) Gram-negative bacteremia: (2) Sepsis: (3) Acute UTI: This is an 85-year-old female who presents with fall at home, and found to be in sepsis, and non ST elevation myocardial infarction. 1. Sepsis. Meets criteria for sepsis with elevated leukocytosis, tachycardia, elevated lactic acid, and urinary tract infection. Give IV fluids. Monitor BP. Zosyn was given in the ER, which we will continue. We will also add vancomycin. Follow the cultures. Follow the repeat lactic acids. Closely monitor in the tele floor. Repeat lactic acid down to 1.0 (initially 3.5 and 3.8) WBC 22K on admission, now down to 14K Blood cultx 10/6 positive for Gram negative bacili x2 Urine cltx positive for E. coli, sensitivities pending Fall mostly from above. CT head shows left parieto-occipital contusion.PT/OT when stable. (4) Elevated troponin: Likely type II event in setting of acute sepsis. She denies recent or recurrent anginal like symptoms. Currently symptom free. Mild nonspecific ST/ T wave abnormality noted on EKG, no acute changes. 2D echo ordered and results pending. Would continue current medications at this time from a cardiac perspective. Cardiology consulted, appreciate their input (5) Paroxysmal A-fib: Atrial fibrillation, continue verapamil withholding parameters, and continue Coumadin. We will follow the PT/INR. History of hypertension. Continue verapamil, withholding parameters. Hold lisinopril for now. Monitor blood pressure. History of diabetes. Hold glipizide. Blood sugars were running high. We will place on Lantus 5 units b.i.d. and insulin sliding scale and follow the blood sugars closely. 7. Hypothyroidism. Continue Synthroid. 8. Hyperlipidemia. Continue statin. 9. Acute kidney injury on chronic kidney disease stage IV. Baseline creatinine around 1.5 to 1.7, currently creatinine of 1.9. Getting fluids. We will follow the labs in the a.m. 10. History of subarachnoid bleed. 11. History of methicillin-resistant Staphylococcus aureus infection. 12. History of a mild episode of depression. 13. Deep venous thrombosis prophylaxis, on Coumadin. INR is 1.7. We will place her on heparin 5000 units b.i.d. until INR is therapeutic. Admission and Anticipated Discharge Date Admission Date: June 25, 2020 Subjective Pt is lying in bed in NAD. She denies any dyspnea or chest pain. She feels warm, she is alert and oriented and answering questions appropriately. Seen by cardiology earlier today. Review of Systems Review of Systems: All systems reviewed & are unremarkable except as noted in HPI & below Constitutional: + fever, + chills and + fatigue Respiratory: no dyspnea Cardiovascular: no chest pain, no palpitations and no edema Gastrointestinal: no abdominal pain, no nausea and no vomiting Physical Exam Physical Exam: GENERAL: The patient is old and frail, not in acute dis tress.hard of hearing. HEENT: Pupils equal, round, and reactive to light. No pallor, no icterus. Oral mucosa moist. NECK: No JVD, no neck masses. CARDIOVASCULAR: S1, S2 heard. Tachycardia. No murmur, no gallop. RESPIRATORY SYSTEM: Normal AP diameter. No accessory muscle use. No wheezing, no crackles. ABDOMEN: Soft, bowel sounds present, nontender. No distention. NEURO: Cranial nerves II-XII grossly intact, no facial droop, speech clear. Moves extremities spontaneously. Power 4/5 to 5/5 in all extremities. EXTREMITIES: No edema, no erythema. SKIN: no rashes or lesions noted. slightly diaphoretic. Results & Data Results & Data ([facility]) Vital Signs (Past 12 Hours) Vital Signs Temp Pulse Pulse Resp BP Pulse Ox 06/26/20 07:06 36.7 C 80 18 119/53 L 92 06/26/20 03:29 36.8 C 94 H 20 111/47 L 92 06/26/20 02:40 96 H 06/26/20 01:17 37.9 C H 101 H 121/60 94 06/26/20 00:32 98 H 20 129/56 L 98 06/25/20 23:09 100 H 16 125/62 96 06/25/20 21:40 128 H 24 150/74 H 93 Laboratory Results 06/26/20 06/26/20 06/26/20 Range/Units 07:26 06:48 05:36 WBC (4.8-10.8) K/uL RBC (4.2-5.4) M/uL Hgb (12.0-16.0) g/dL Hct (37-47) % MCV (80-100) fL MCH (25-34) pg MCHC (32-36) g/dL RDW Std Deviation (36.4-46.3) fL RDW Coeff of Hope (11.5-14.5) % Plt Count (130-400) K/uL MPV (7.4-10.4) fL Immature Gran % (Auto) % Neut % (Auto) % Lymph % (Auto) % [place] % (Auto) % Eos % (Auto) % Baso % (Auto) % Neut # (Auto) (1.4-6.5) K/uL Lymph # (Auto) (1.2-3.4) K/uL [place] # (Auto) (0.11-0.59) K/uL Eos # (Auto) (0-0.5) K/uL Baso # (Auto) (0-0.2) K/uL Immature Gran # (Auto) (0.00-0.02) K/uL PT (9.0-12.0) Seconds INR (0.9-1.1) APTT (21.0-31.0) Seconds PTT Ratio Sodium (136-145) mmol/L Potassium (3.5-5.1) mmol/L Chloride (98-107) mmol/L Carbon Dioxide (21-32) mmol/L Anion Gap (3-11) BUN (7-18) mg/dl Creatinine (0.6-1.2) mg/dl Est Cr Clr Drug Dosing Est GFR ( Amer) Est GFR (Non-Af Amer) BUN/Creatinine Ratio (10-20) Glucose (70-99) mg/dl POC Glucose 190 H (70-99) mg/dl Estimat Average Glucose 166 mg/dl Hemoglobin A1c 7.4 H (4.5-5.6) % Lactate 1.0 (0.4-2.0) mmol/L Calcium (8.5-10.1) mg/dl Magnesium (1.8-2.4) mg/dl Total Bilirubin (0.2-1) mg/dl AST (15-37) U/L ALT (12-78) U/L Alkaline Phosphatase (45-117) U/L Troponin I (0-0.045) ng/ml Total Protein (6.4-8.2) gm/dl Albumin (3.4-5.0) gm/dl Globulin (2.5-4.0) gm/dl Albumin/Globulin Ratio (0.9-2) Beta-Hydroxybutyric Acd (0.2-2.81) mg/dl TSH (0.300-4.500) uIu/ml Urine Color Urine Appearance (Clear) Urine pH (4.5-7.5) Ur Specific [place] (1.000-1.030) Urine Protein (Negative) Urine Glucose (UA) (Negative) Urine Ketones (Negative) Urine Blood (Negative) Urine Nitrite (Negative) Urine Bilirubin (Negative) Urine Urobilinogen (Negative) Ur Leukocyte Esterase (Negative) Urine WBC (Auto) (0-5) /hpf Urine RBC (Auto) (0-4) /hpf U Hyaline Cast (Auto) (0-5) /lpf U Epithel Cells (Auto) (0-5) /lpf Urine Bacteria (Auto) (Negative) 06/26/20 06/26/20 06/26/20 Range/Units 05:36 05:36 05:35 WBC 13.78 H (4.8-10.8) K/uL RBC 3.34 L (4.2-5.4) M/uL Hgb 8.8 L (12.0-16.0) g/dL Hct 26.8 L (37-47) % MCV 80.2 (80-100) fL MCH 26.3 (25-34) pg MCHC 32.8 (32-36) g/dL RDW Std Deviation 46.7 H (36.4-46.3) fL RDW Coeff of Hope 15.8 H (11.5-14.5) % Plt Count 161 (130-400) K/uL MPV 9.6 (7.4-10.4) fL Immature Gran % (Auto) 0.4 % Neut % (Auto) 73.3 % Lymph % (Auto) 17.7 % Arroyo % (Auto) 8.4 % Eos % (Auto) 0.1 % Baso % (Auto) 0.1 % Neut # (Auto) 10.10 H (1.4-6.5) K/uL Lymph # (Auto) 2.44 (1.2-3.4) K/uL [place] # (Auto) 1.16 H (0.11-0.59) K/uL Eos # (Auto) 0.01 (0-0.5) K/uL Baso # (Auto) 0.02 (0-0.2) K/uL Immature Gran # (Auto) 0.05 H (0.00-0.02) K/uL PT 18.7 H (9.0-12.0) Seconds INR 1.8 H (0.9-1.1) APTT (21.0-31.0) Seconds PTT Ratio Sodium 139 (136-145) mmol/L Potassium 4.0 (3.5-5.1) mmol/L Chloride 107 (98-107) mmol/L Carbon Dioxide 27 (21-32) mmol/L Anion Gap 5.0 (3-11) BUN 31 H (7-18) mg/dl Creatinine 1.51 H D (0.6-1.2) mg/dl Est Cr Clr Drug Dosing 21.5 Est GFR ( Amer) 35.9 Est GFR (Non-Af Amer) 31.0 BUN/Creatinine Ratio 20.2 H (10-20) Glucose 196 H (70-99) mg/dl POC Glucose (70-99) mg/dl Estimat Average Glucose mg/dl Hemoglobin A1c (4.5-5.6) % Lactate (0.4-2.0) mmol/L Calcium 8.1 L (8.5-10.1) mg/dl Magnesium 1.8 (1.8-2.4) mg/dl Total Bilirubin (0.2-1) mg/dl AST (15-37) U/L ALT (12-78) U/L Alkaline Phosphatase (45-117) U/L Troponin I 2.210 H* (0-0.045) ng/ml Total Protein (6.4-8.2) gm/dl Albumin (3.4-5.0) gm/dl Globulin (2.5-4.0) gm/dl Albumin/Globulin Ratio (0.9-2) Beta-Hydroxybutyric Acd (0.2-2.81) mg/dl TSH (0.300-4.500) uIu/ml Urine Color Urine Appearance (Clear) Urine pH (4.5-7.5) Ur Specific [place] (1.000-1.030) Urine Protein (Negative) Urine Glucose (UA) (Negative) Urine Ketones (Negative) Urine Blood (Negative) Urine Nitrite (Negative) Urine Bilirubin (Negative) Urine Urobilinogen (Negative) Ur Leukocyte Esterase (Negative) Urine WBC (Auto) (0-5) /hpf Urine RBC (Auto) (0-4) /hpf U Hyaline Cast (Auto) (0-5) /lpf U Epithel Cells (Auto) (0-5) /lpf Urine Bacteria (Auto) (Negative) 06/26/20 06/26/20 06/25/20 Range/Units 03:16 00:29 23:18 WBC (4.8-10.8) K/uL RBC (4.2-5.4) M/uL Hgb (12.0-16.0) g/dL Hct (37-47) % MCV (80-100) fL MCH (25-34) pg MCHC (32-36) g/dL RDW Std Deviation (36.4-46.3) fL RDW Coeff of Hope (11.5-14.5) % Plt Count (130-400) K/uL MPV (7.4-10.4) fL Immature Gran % (Auto) % Neut % (Auto) % Lymph % (Auto) % [place] % (Auto) % Eos % (Auto) % Baso % (Auto) % Neut # (Auto) (1.4-6.5) K/uL Lymph # (Auto) (1.2-3.4) K/uL [place] # (Auto) (0.11-0.59) K/uL Eos # (Auto) (0-0.5) K/uL Baso # (Auto) (0-0.2) K/uL Immature Gran # (Auto) (0.00-0.02) K/uL PT (9.0-12.0) Seconds INR (0.9-1.1) APTT (21.0-31.0) Seconds PTT Ratio Sodium (136-145) mmol/L Potassium (3.5-5.1) mmol/L Chloride (98-107) mmol/L Carbon Dioxide (21-32) mmol/L Anion Gap (3-11) BUN (7-18) mg/dl Creatinine (0.6-1.2) mg/dl Est Cr Clr Drug Dosing Est GFR ( Amer) Est GFR (Non-Af Amer) BUN/Creatinine Ratio (10-20) Glucose (70-99) mg/dl POC Glucose 230 H 316 H* (70-99) mg/dl Estimat Average Glucose mg/dl Hemoglobin A1c (4.5-5.6) % Lactate 3.8 H* (0.4-2.0) mmol/L Calcium (8.5-10.1) mg/dl Magnesium (1.8-2.4) mg/dl Total Bilirubin (0.2-1) mg/dl AST (15-37) U/L ALT (12-78) U/L Alkaline Phosphatase (45-117) U/L Troponin I (0-0.045) ng/ml Total Protein (6.4-8.2) gm/dl Albumin (3.4-5.0) gm/dl Globulin (2.5-4.0) gm/dl Albumin/Globulin Ratio (0.9-2) Beta-Hydroxybutyric Acd (0.2-2.81) mg/dl TSH (0.300-4.500) uIu/ml Urine Color Urine Appearance (Clear) Urine pH (4.5-7.5) Ur Specific [place] (1.000-1.030) Urine Protein (Negative) Urine Glucose (UA) (Negative) Urine Ketones (Negative) Urine Blood (Negative) Urine Nitrite (Negative) Urine Bilirubin (Negative) Urine Urobilinogen (Negative) Ur Leukocyte Esterase (Negative) Urine WBC (Auto) (0-5) /hpf Urine RBC (Auto) (0-4) /hpf U Hyaline Cast (Auto) (0-5) /lpf U Epithel Cells (Auto) (0-5) /lpf Urine Bacteria (Auto) (Negative) 06/25/20 06/25/20 06/25/20 Range/Units 20:48 20:39 19:41 WBC (4.8-10.8) K/uL RBC (4.2-5.4) M/uL Hgb (12.0-16.0) g/dL Hct (37-47) % MCV (80-100) fL MCH (25-34) pg MCHC (32-36) g/dL RDW Std Deviation (36.4-46.3) fL RDW Coeff of Hope (11.5-14.5) % Plt Count (130-400) K/uL MPV (7.4-10.4) fL Immature Gran % (Auto) % Neut % (Auto) % Lymph % (Auto) % [place] % (Auto) % Eos % (Auto) % Baso % (Auto) % Neut # (Auto) (1.4-6.5) K/uL Lymph # (Auto) (1.2-3.4) K/uL [place] # (Auto) (0.11-0.59) K/uL Eos # (Auto) (0-0.5) K/uL Baso # (Auto) (0-0.2) K/uL Immature Gran # (Auto) (0.00-0.02) K/uL PT 17.4 H (9.0-12.0) Seconds INR 1.7 H (0.9-1.1) APTT 27.0 (21.0-31.0) Seconds PTT Ratio 1.0 Sodium 136 (136-145) mmol/L Potassium 4.7 (3.5-5.1) mmol/L Chloride 101 (98-107) mmol/L Carbon Dioxide 26 (21-32) mmol/L Anion Gap 9.0 (3-11) BUN 31 H (7-18) mg/dl Creatinine 1.94 H (0.6-1.2) mg/dl Est Cr Clr Drug Dosing Not Reportable Est GFR ( Amer) 26.5 Est GFR (Non-Af Amer) 22.9 BUN/Creatinine Ratio 16.0 (10-20) Glucose 315 H* (70-99) mg/dl POC Glucose (70-99) mg/dl Estimat Average Glucose mg/dl Hemoglobin A1c (4.5-5.6) % Lactate 3.5 H* (0.4-2.0) mmol/L Calcium 9.0 (8.5-10.1) mg/dl Magnesium (1.8-2.4) mg/dl Total Bilirubin 0.6 (0.2-1) mg/dl AST 84 H (15-37) U/L ALT 36 (12-78) U/L Alkaline Phosphatase 78 (45-117) U/L Troponin I 1.150 H* (0-0.045) ng/ml Total Protein 7.7 (6.4-8.2) gm/dl Albumin 3.5 (3.4-5.0) gm/dl Globulin 4.2 H (2.5-4.0) gm/dl Albumin/Globulin Ratio 0.8 L (0.9-2) Beta-Hydroxybutyric Acd 6.34 H (0.2-2.81) mg/dl TSH 0.999 (0.300-4.500) uIu/ml Urine Color Urine Appearance (Clear) Urine pH (4.5-7.5) Ur Specific [place] (1.000-1.030) Urine Protein (Negative) Urine Glucose (UA) (Negative) Urine Ketones (Negative) Urine Blood (Negative) Urine Nitrite (Negative) Urine Bilirubin (Negative) Urine Urobilinogen (Negative) Ur Leukocyte Esterase (Negative) Urine WBC (Auto) (0-5) /hpf Urine RBC (Auto) (0-4) /hpf U Hyaline Cast (Auto) (0-5) /lpf U Epithel Cells (Auto) (0-5) /lpf Urine Bacteria (Auto) (Negative) 06/25/20 06/25/20 Range/Units 19:41 19:30 WBC 22.50 H (4.8-10.8) K/uL RBC 4.15 L (4.2-5.4) M/uL Hgb 10.3 L (12.0-16.0) g/dL Hct 34.0 L (37-47) % MCV 81.9 (80-100) fL MCH 24.8 L (25-34) pg MCHC 30.3 L (32-36) g/dL RDW Std Deviation 48.4 H (36.4-46.3) fL RDW Coeff of Hope 16.0 H (11.5-14.5) % Plt Count 230 (130-400) K/uL MPV 10.1 (7.4-10.4) fL Immature Gran % (Auto) 0.4 % Neut % (Auto) 83.6 % Lymph % (Auto) 10.9 % [place] % (Auto) 5.0 % Eos % (Auto) 0.0 % Baso % (Auto) 0.1 % Neut # (Auto) 18.81 H (1.4-6.5) K/uL Lymph # (Auto) 2.45 (1.2-3.4) K/uL [place] # (Auto) 1.13 H (0.11-0.59) K/uL Eos # (Auto) 0.01 (0-0.5) K/uL Baso # (Auto) 0.02 (0-0.2) K/uL Immature Gran # (Auto) 0.08 H (0.00-0.02) K/uL PT (9.0-12.0) Seconds INR (0.9-1.1) APTT (21.0-31.0) Seconds PTT Ratio Sodium (136-145) mmol/L Potassium (3.5-5.1) mmol/L Chloride (98-107) mmol/L Carbon Dioxide (21-32) mmol/L Anion Gap (3-11) BUN (7-18) mg/dl Creatinine (0.6-1.2) mg/dl Est Cr Clr Drug Dosing Est GFR ( Amer) Est GFR (Non-Af Amer) BUN/Creatinine Ratio (10-20) Glucose (70-99) mg/dl POC Glucose (70-99) mg/dl Estimat Average Glucose mg/dl Hemoglobin A1c (4.5-5.6) % Lactate (0.4-2.0) mmol/L Calcium (8.5-10.1) mg/dl Magnesium (1.8-2.4) mg/dl Total Bilirubin (0.2-1) mg/dl AST (15-37) U/L ALT (12-78) U/L Alkaline Phosphatase (45-117) U/L Troponin I (0-0.045) ng/ml Total Protein (6.4-8.2) gm/dl Albumin (3.4-5.0) gm/dl Globulin (2.5-4.0) gm/dl Albumin/Globulin Ratio (0.9-2) Beta-Hydroxybutyric Acd (0.2-2.81) mg/dl TSH (0.300-4.500) uIu/ml Urine Color Yellow Urine Appearance Turbid A (Clear) Urine pH 5.0 (4.5-7.5) Ur Specific [place] 1.015 (1.000-1.030) Urine Protein 1+ H (Negative) Urine Glucose (UA) Negative (Negative) Urine Ketones Trace H (Negative) Urine Blood 3+ H (Negative) Urine Nitrite Negative (Negative) Urine Bilirubin Negative (Negative) Urine Urobilinogen Negative (Negative) Ur Leukocyte Esterase 3+ H (Negative) Urine WBC (Auto) >30 H (0-5) /hpf Urine RBC (Auto) 5-10 H (0-4) /hpf U Hyaline Cast (Auto) 1-5 (0-5) /lpf U Epithel Cells (Auto) >30 H (0-5) /lpf Urine Bacteria (Auto) 4+ H (Negative) Medications Administered Current Inpatient Medications Acetaminophen (Acetaminophen 325 Mg Tab) 650 mg PO Q4H PRN PRN Reason: Pain or Fever Stop: 07/26/20 01:02 Aspirin (Aspirin 81 Mg Ectab) 81 mg PO MoWeFr@0900 [facility] Stop: 07/26/20 08:59 Last Admin: 06/26/20 08:02 Dose: 81 mg Documented by: Calcium Carbonate (Calcium Carbonate 1250mg Tab) 1,250 mg PO DAILY [facility] Stop: 07/26/20 08:59 Last Admin: 06/26/20 08:02 Dose: 1,250 mg Documented by: Dextrose (Dextrose 50% 50 Ml Syringe) 25 - 50 ml IV UD PRN; Protocol PRN Reason: Hypoglycemia Protocol Stop: 07/26/20 02:44 Docusate Sodium (Docusate Sodium 100 Mg Cap) 100 mg PO QPM [facility] Stop: 07/26/20 20:59 Ferrous Sulfate (Ferrous Sulfate 325 Mg Tab) 325 mg PO QAM [facility] Stop: 07/26/20 08:59 Last Admin: 06/26/20 08:02 Dose: 325 mg Documented by: Fluticasone Propionate (Fluticasone Propionate Na Spr 16 Gm Btl) 2 sprays NA HS PRN PRN Reason: Nasal Congestion Stop: 07/26/20 01:02 Glucagon (Glucagon For Inj 1 Mg Vial) 1 mg IM UD PRN; Protocol PRN Reason: Hypoglycemia Protocol Stop: 07/26/20 02:44 Glucose (Glucose 40% Gel 15 Gm Tube) 15 - 30 gm PO UD PRN; Protocol PRN Reason: Hypoglycemia Protocol Stop: 07/26/20 02:44 Glucose (Glucose 10 Tabs/Tube) 4 - 8 tabs PO UD PRN; Protocol PRN Reason: Hypoglycemia Protocol Stop: 07/26/20 02:44 Heparin Sodium (Porcine) (Heparin Sod 5,000 Unit/0.5 Ml Vial) 5,000 units SQ Q12 NO Stop: 07/26/20 08:59 Last Admin: 06/26/20 08:03 Dose: 5,000 units Documented by: Sodium Chloride (Nss 1000ml) 1,000 mls @ 125 mls/hr IV .Q8H [facility] Stop: 07/26/20 01:02 Last Admin: 06/26/20 02:47 Dose: 125 mls/hr Documented by: Piperacillin Sod/Tazobactam (Sod 3.375 gm/ Dextrose) 115 mls @ 28.75 mls/hr IV Q8H [facility]; Protocol Stop: 07/06/20 03:59 Insulin Aspart (Insulin Aspart 100 Units/Ml 3 Ml Pen) 0 units SC ACHS [facility] Stop: 07/26/20 02:44 Last Admin: 06/26/20 07:53 Dose: 3 units Documented by: Insulin Glargine (Insulin Glargine Solostar 100 Units/Ml 3 Ml Pen) 5 units SC BID [facility] Stop: 07/26/20 02:44 Last Admin: 06/26/20 03:18 Dose: 5 units Documented by: Levothyroxine Sodium (Levothyroxine Sodium 100 Mcg Tablet) 100 mcg PO DAILYBB [facility] Stop: 07/26/20 06:29 Last Admin: 06/26/20 06:05 Dose: 100 mcg Documented by: Lisinopril (Lisinopril 10 Mg Tab) 10 mg PO DAILY [facility] Stop: 07/26/20 08:59 Miscellaneous (Carbohydrates For Hypoglycemia ) 15 - 30 gm PO UD PRN PRN Reason: Hypoglycemia Treatment Stop: 07/26/20 02:44 Miscellaneous Information (Piperacill/Tazobac Consult Active) 1 ea N/A UD PRN PRN Reason: Consult Stop: 07/25/20 20:31 Last Admin: 06/25/20 21:01 Dose: 1 ea Documented by: Miscellaneous Information (Vancomycin Consult Active) 1 ea N/A UD PRN PRN Reason: Consult Stop: 07/26/20 00:22 Nitroglycerin (Nitroglycerin Sl 0.4 Mg/Tab Tab) 0.4 mg SL UD PRN PRN Reason: Chest Pain Stop: 07/26/20 01:02 Ondansetron HCl (Ondansetron Inj 2 Mg/Ml 2 Ml Vial) 4 mg IV Q6H PRN PRN Reason: Nausea Stop: 07/26/20 01:02 Rosuvastatin Calcium (Rosuvastatin Calcium 10 Mg Tab) 10 mg PO [facility] Stop: 07/26/20 20:59 Tamsulosin HCl (Tamsulosin Hcl 0.4 Mg Cap) 0.4 mg PO [facility] Stop: 07/26/20 20:59 Tizanidine HCl (Tizanidine Hcl 4 Mg Tablet) 4 mg PO Q8H PRN PRN Reason: Muscle Pain Stop: 07/26/20 01:02 Verapamil HCl (Verapamil Hcl 180 Mg Tabcr) 180 mg PO [facility] Stop: 07/26/20 08:59 Vitamin D (Cholecalciferol 1,000 Units 25 Mcg Tab) 2,[facility] [place] [facility] [place]: 07/26/20 08:59 Last Admin: 06/26/20 08:02 Dose: 2,000 units Documented by: Warfarin Sodium (Warfarin Sod 2 Mg Tab) 2 mg PO SuTuWeThFrSa@1600 [facility] Stop: 07/26/20 15:59 Warfarin Sodium (Warfarin Sod 4 Mg Tab) 4 mg PO Mo@1600 [facility] Stop: 07/31/20 15:59 Zinc Sulfate (Zinc Sulfate 220 Mg Capsule) 220 mg PO QDL [facility] Stop: 07/26/20 11:29
--- NOTE | 2020-06-26 10:19 | Pharmacy Report ---
Pharmacy Abx Initial Consult - Date of Service June 26, 2020 - Pharmacy Dosing Scope Date of Consult: 06/26/2020 Consultation requested by: Dr. Brooks Pharmacy is consulted to initiate Vancomycin and Zosyn IV dosing therapy, order appropriate labs and adjust drug dose/frequency. - Subjective The patient is a 85 year old F admitted on 06/25/20 23:51. - Objective Height: 5 ft Weight: 59 kg Vital Signs (Past 12hrs): Vital Signs Temp Pulse Pulse Resp BP Pulse Ox 06/26/20 07:06 36.7 C 80 18 119/53 L 92 06/26/20 03:29 36.8 C 94 H 20 111/47 L 92 06/26/20 02:40 96 H 06/26/20 01:17 37.9 C H 101 H 121/60 94 06/26/20 00:32 98 H 20 129/56 L 98 06/25/20 23:09 100 H 16 125/62 96 Lab Results (24hrs): Laboratory Tests (24 Hours) 06/26/20 06/26/20 06/25/20 05:36 05:36 19:41 WBC 13.78 H Neut # (Auto) 10.10 H Creatinine 1.51 H D 1.94 H Est Cr Clr Drug Dosing 21.5 Not Reportable 06/25/20 19:41 WBC 22.50 H Neut # (Auto) 18.81 H Creatinine Est Cr Clr Drug Dosing Micro Results: 06/26/20 09:33 Aerobic Blood Culture - Pending Blood Anaerobic Blood Culture - Pending 06/26/20 09:41 Aerobic Blood Culture - Pending Blood Anaerobic Blood Culture - Pending 06/25/20 20:39 Aerobic Blood Culture - Pending Blood 06/25/20 20:40 Aerobic Blood Culture - Pending Blood Anaerobic Blood Culture - Pending 06/25/20 19:30 Urine Culture - Pending Urine,Clean Catch - Risk Factors for Resistance * None - Assessment & Plan Assessment 85 year old F admitted secondary to fall and possible stroke * PMHx significant for T2DM, Afib, CKD-Stage IV, and hypothyroidism. * Upon admission, patient was afebrile but had a leukocytosis of 22k which has improved to 14k today. Her lactic acid was initially elevated at 3.8 but has trended down to 1.0 today. Her renal function has slightly improved. She did report increased urination. Urinalysis was nitrite negative, 3+ leukocyte esterase, > 30 WBCs and epithelial cells, and 4+ bacteria. * Urine culture is pending. / bottles from admission blood cultures is growing GNB. Repeat blood cultures ordered today. * Initially, she was started on Vancomycin and Zosyn in the ED and these have been continued. I have increased the Zosyn dose this morning secondary to improvement in renal function. Plan Vancomycin and Zosyn for treatment of UTI Vancomycin IV * Loading dose: 1000 mg (17 mg/kg) * Vancomycin will be dosed per level given current kidney function and history of CKD. * A random vancomycin has been ordered with AM labs on 06/27/2020 which will be approximately 24 hours following loading dose. Piperacillin/tazobactam * 4.5 g bolus administered over 30 minutes, then 3.375 g IV extended infusion every 8 hours for CrCl greater than 20 mL/min Pharmacy will continue to follow and will adjust dose/frequency as necessary. Thank you.
[2020-06-26] MEDS: VERAPAMIL HCL 180 MG TABCR PO SCH (11:06)
[2020-06-26] MEDS: lisinopril 10 MG TAB PO SCH (11:06)
[2020-06-26] MEDS: ACETAMINOPHEN 325 MG TAB PO PRN ×2 (11:06→23:22)
--- NOTE | 2020-06-26 11:51 | Electrocardiogram Report ---
Test Reason : Blood Pressure : / mmHG Vent. Rate : 081 BPM Atrial Rate : 000 BPM P-R Int : 000 ms QRS Dur : 082 ms QT Int : 290 ms P-R-T Axes : 000 -34 004 degrees QTc Int : 336 ms Sinus rhythm Left axis deviation Nonspecific T wave abnormality Abnormal ECG When compared with ECG of 25-JUN-2020 19:28, (unconfirmed) Nonspecific T wave abnormality, worse in Inferior leads Nonspecific T wave abnormality now evident in Anterolateral leads QT has shortened Confirmed by Jericho Hartley ([id number]) on 06/26/2020 11:50:44 AM Referred By: REFERRED SELF Confirmed By:Daniel Hartley
--- NOTE | 2020-06-26 11:57 | Electrocardiogram Report ---
Test Reason : Blood Pressure : / mmHG Vent. Rate : 099 BPM Atrial Rate : 102 BPM P-R Int : 000 ms QRS Dur : 082 ms QT Int : 344 ms P-R-T Axes : 000 -40 024 degrees QTc Int : 441 ms Poor data quality, interpretation may be adversely affected Sinus rhythm Left axis deviation Abnormal ECG Confirmed by Jericho Hartley ([id number]) on 06/26/2020 11:56:30 AM Referred By: REFERRED SELF Confirmed By:Daniel Hartley
[2020-06-26] MEDS: ZINC SULFATE 220 MG CAPSULE PO SCH (12:12)
[2020-06-26] MEDS: PIPERACILLIN/TAZOBACTAM 3.375 GM in DEXTROSE 5% 100 ML IV SCH ×2 (13:01→20:36)
[2020-06-26] MEDS: WARFARIN SOD 2 MG TAB PO SCH (16:42)
[2020-06-26] MEDS: TAMSULOSIN HCL 0.4 MG CAP PO SCH (20:36)
[2020-06-26] MEDS: DOCUSATE SODIUM 100 MG CAP PO SCH (20:36)
[2020-06-26] MEDS: ROSUVASTATIN CALCIUM 10 MG TAB PO SCH (20:36)
[2020-06-27] MEDS: PIPERACILLIN/TAZOBACTAM 3.375 GM in DEXTROSE 5% 100 ML IV SCH ×3 (03:42→20:08)
[2020-06-27] MEDS: SODIUM CHLORIDE 0.9% 1000ML 1,000 ML IV SCH ×4 (03:42→23:19)
[2020-06-27] MEDS: LEVOTHYROXINE SODIUM 100 MCG TABLET PO SCH (05:33)
[2020-06-27 07:49] LABS: Basophils # (auto) 0.02 K/uL (0-0.2); Basophils % (auto) 0.2 %; Eosinophils # (auto) 0.13 K/uL (0-0.5); Eosinophils % (auto) 1.3 %; Hematocrit (blood only) 26.8 % (37-47); Hemoglobin 8.5 g/dL (12.0-16.0); Immature Granulocytes # (auto) 0.03 K/uL (0.00-0.02); Immature Granulocytes % (auto) 0.3 %; Lymphocytes # (auto) 1.97 K/uL (1.2-3.4); Lymphocytes % (auto) 20.2 %; Mean Corpuscular Hemoglobin 25.8 pg (25-34); Mean Corpuscular Hgb Conc 31.7 g/dL (32-36); Mean Corpuscular Volume 81.5 fL (80-100); Mean Platelet Volume 10.3 fL (7.4-10.4); Monocytes # (auto) 0.72 K/uL (0.11-0.59); Monocytes % (auto) 7.4 %; Neutrophils # (auto) 6.86 K/uL (1.4-6.5); Neutrophils % (auto) 70.6 %; Platelet Count 147 K/uL (130-400); RDW Standard Deviation 48.6 fL (36.4-46.3); Red Blood Count 3.29 M/uL (4.2-5.4); White Blood Count 9.73 K/uL (4.8-10.8)
[2020-06-27 08:07] LABS: INR 1.5 (0.9-1.1); Prothrombin Time 15.3 Seconds (9.0-12.0)
[2020-06-27] MEDS: CALCIUM CARBONATE 1250MG TAB PO SCH (08:13)
[2020-06-27] MEDS: INSULIN GLARGINE SOLOSTAR 100 UNITS/ML 3 ML PEN SC SCH ×2 (08:13→20:49)
[2020-06-27] MEDS: INSULIN ASPART 100 UNITS/ML 3 ML PEN SC SCH ×4 (08:13→20:53)
[2020-06-27] MEDS: VERAPAMIL HCL 180 MG TABCR PO SCH (08:14)
[2020-06-27] MEDS: CHOLECALCIFEROL 1,000 UNITS 25 MCG TAB PO SCH (08:14)
[2020-06-27] MEDS: lisinopril 10 MG TAB PO SCH (08:14)
[2020-06-27] MEDS: HEPARIN SOD 5,000 UNIT/0.5 ML VIAL SQ SCH ×2 (08:14→20:49)
[2020-06-27] MEDS: FERROUS SULFATE 325 MG TAB PO SCH (08:14)
[2020-06-27] MEDS: ZINC SULFATE 220 MG CAPSULE PO SCH (08:14)
[2020-06-27 08:22] LABS: BUN Creatinine Ratio 20.6 (10-20); Calcium 8.3 mg/dl (8.5-10.1); Creatinine Clr Calc Pharmacy 20.6 ml/min; Est GFR (Non-African American) 28.4; Phosphorus 2.7 mg/dl (2.5-4.9); Potassium 3.6 mmol/L (3.5-5.1)
--- NOTE | 2020-06-27 08:31 | Hospitalist Progress Note ---
Date of Service June 27, 2020 Assessment & Plan (1) Gram-negative bacteremia: (2) Sepsis: (3) Acute UTI: This is an 85-year-old female who presents with fall at home, and found to be in sepsis, and non ST elevation myocardial infarction. Sepsis. Meets criteria for sepsis with leukocytosis, tachycardia, elevated lactic acid, and urinary tract infection. Give IV fluids. Monitor BP. Zosyn was given in the ER, which we will continue. Patient also received vancomycin. Vancomycin was discontinued after blood cultures positive for gram-negative bacteria. Follow the cultures. Follow the repeat lactic acids. Closely monitor in the tele floor. Repeat lactic acid down to 1.0 (initially 3.5 and 3.8) WBC 22K on admission, now down to 14K Blood cultx 10/6 positive for Gram negative bacili x2 Urine cltx positive for E. coli, sensitivities pending Fall mostly from above. CT head shows left parieto-occipital contusion.PT/OT when stable. (4) Elevated troponin: Likely type II event in setting of acute sepsis. She denies recent or recurrent anginal like symptoms. Currently symptom free. Mild nonspecific ST/ T wave abnormality noted on EKG, no acute changes. 2D echo ordered and results pending. Would continue current medications at this time from a cardiac perspective. Cardiology consulted, appreciate their input (5) Paroxysmal A-fib: Atrial fibrillation, continue verapamil withholding parameters, and continue Coumadin. We will follow the PT/INR. Patient developed A. fib with RVR this afternoon, June 27. At this time she was also retaining urine, bladder scan about 700 cc. She was catheterized, and received small dose of IV metoprolol, and converted back to normal sinus rhythm. INR subtherapeutic, increase warfarin dose, continue heparin subcu while INR subtherapeutic. History of hypertension. Continue verapamil, withholding parameters. Hold lisinopril for now. Monitor blood pressure. CRISPIN on CKD stage IV. Baseline creatinine around 1.5 to 1.7, currently creatinine of 1.9. Getting fluids. Cr normalized to 1.6 on 06/27 History of diabetes. Hold glipizide. Blood sugars were running high on admission. We will place on Lantus 5 units b.i.d. and insulin sliding scale and follow the blood sugars closely. 7. Hypothyroidism. Continue Synthroid. 8. Hyperlipidemia. Continue statin. 10. History of subarachnoid bleed. 11. History of methicillin-resistant Staphylococcus aureus infection. 12. History of a mild episode of depression. DVT prophylaxis, on Coumadin. INR subtherapeutic (1.7 on admission). We will place her on heparin 5000 units b.i.d. until INR is therapeutic. Admission and Anticipated Discharge Date Admission Date: June 25, 2020 Subjective Patient developed A. fib with RVR around 2 PM. Bladder scanned her and patient was retaining about 700 cc of urine, discussed with the nursing staff, and catheter was placed. Patient then converted to normal sinus. She also received 2.5 IV metoprolol. Patient is lying in bed, denies any palpitations, chest pain shortness of breath. Denies any abdominal pain or discomfort. Does not feel urge to urinate even though bladder scan shows about 700 cc of urine. Review of Systems Review of Systems: All systems reviewed & are unremarkable except as noted in HPI & below Constitutional: + fatigue Respiratory: no cough and no dyspnea Cardiovascular: no chest pain, no palpitations and no edema Genitourinary: Urinary retention Physical Exam Physical Exam: GENERAL: Elderly and frail female, not in acute distress HEENT: PERRL, EOMI, No pallor, no icterus. Oral mucosa moist. NECK: No JVD, no neck masses. CARDIOVASCULAR: S1, S2 heard. Tachycardia. irregular. No murmur, no gallop. RESPIRATORY SYSTEM: Normal AP diameter. No accessory muscle use. No wheezing, no crackles. ABDOMEN: Soft, bowel sounds present, nontender. No distention. NEURO: Alert oriented answering questions appropriately, cranial nerves II-XII g rossly intact, no facial droop, speech clear. Moves extremities spontaneously. Power 4/5 to 5/5 in all extremities. EXTREMITIES: No edema, no erythema. SKIN: no rashes or lesions noted Results & Data Results & Data ([facility]) Vital Signs (Past 12 Hours) Vital Signs Temp Pulse Pulse Resp BP Pulse Ox 06/27/20 07:04 37.0 C 93 H 18 117/62 92 06/27/20 04:40 36.6 C 68 20 92/40 L 95 06/27/20 00:46 37.5 C 06/27/20 00:13 106 H 06/27/20 00:05 38.3 C H 06/26/20 23:09 38.9 C H 103 H 24 98/42 L 91 Laboratory Results 06/27/20 06/27/20 06/27/20 Range/Units 07:36 07:36 07:36 WBC 9.73 (4.8-10.8) K/uL RBC 3.29 L (4.2-5.4) M/uL Hgb 8.5 L (12.0-16.0) g/dL Hct 26.8 L (37-47) % MCV 81.5 (80-100) fL MCH 25.8 (25-34) pg MCHC 31.7 L (32-36) g/dL RDW Std Deviation 48.6 H (36.4-46.3) fL RDW Coeff of Hope 16.0 H (11.5-14.5) % Plt Count 147 (130-400) K/uL MPV 10.3 (7.4-10.4) fL Immature Gran % (Auto) 0.3 % Neut % (Auto) 70.6 % Lymph % (Auto) 20.2 % [place] % (Auto) 7.4 % Eos % (Auto) 1.3 % Baso % (Auto) 0.2 % Neut # (Auto) 6.86 H (1.4-6.5) K/uL Lymph # (Auto) 1.97 (1.2-3.4) K/uL [place] # (Auto) 0.72 H (0.11-0.59) K/uL Eos # (Auto) 0.13 (0-0.5) K/uL Baso # (Auto) 0.02 (0-0.2) K/uL Immature Gran # (Auto) 0.03 H (0.00-0.02) K/uL PT 15.3 H (9.0-12.0) Seconds INR 1.5 H (0.9-1.1) Sodium 141 (136-145) mmol/L Potassium 3.6 (3.5-5.1) mmol/L Chloride 112 H (98-107) mmol/L Carbon Dioxide 21 (21-32) mmol/L Anion Gap 8.0 (3-11) BUN 33 H (7-18) mg/dl Creatinine 1.62 H (0.6-1.2) mg/dl Est Cr Clr Drug Dosing 20.6 ml/min Est GFR ( Amer) 33.0 Est GFR (Non-Af Amer) 28.4 BUN/Creatinine Ratio 20.6 H (10-20) Glucose 148 H (70-99) mg/dl POC Glucose (70-99) mg/dl Calcium 8.3 L (8.5-10.1) mg/dl Phosphorus 2.7 (2.5-4.9) mg/dl Magnesium 2.0 (1.8-2.4) mg/dl Troponin I (0-0.045) ng/ml 06/27/20 06/26/20 06/26/20 Range/Units 07:16 20:38 16:43 WBC (4.8-10.8) K/uL RBC (4.2-5.4) M/uL Hgb (12.0-16.0) g/dL Hct (37-47) % MCV (80-100) fL MCH (25-34) pg MCHC (32-36) g/dL RDW Std Deviation (36.4-46.3) fL RDW Coeff of Hope (11.5-14.5) % Plt Count (130-400) K/uL MPV (7.4-10.4) fL Immature Gran % (Auto) % Neut % (Auto) % Lymph % (Auto) % [place] % (Auto) % Eos % (Auto) % Baso % (Auto) % Neut # (Auto) (1.4-6.5) K/uL Lymph # (Auto) (1.2-3.4) K/uL [place] # (Auto) (0.11-0.59) K/uL Eos # (Auto) (0-0.5) K/uL Baso # (Auto) (0-0.2) K/uL Immature Gran # (Auto) (0.00-0.02) K/uL PT (9.0-12.0) Seconds INR (0.9-1.1) Sodium (136-145) mmol/L Potassium (3.5-5.1) mmol/L Chloride (98-107) mmol/L Carbon Dioxide (21-32) mmol/L Anion Gap (3-11) BUN (7-18) mg/dl Creatinine (0.6-1.2) mg/dl Est Cr Clr Drug Dosing ml/min Est GFR ( Amer) Est GFR (Non-Af Amer) BUN/Creatinine Ratio (10-20) Glucose (70-99) mg/dl POC Glucose 123 H 198 H 200 H (70-99) mg/dl Calcium (8.5-10.1) mg/dl Phosphorus (2.5-4.9) mg/dl Magnesium (1.8-2.4) mg/dl Troponin I (0-0.045) ng/ml 06/26/20 06/26/20 Range/Units 11:27 11:21 WBC (4.8-10.8) K/uL RBC (4.2-5.4) M/uL Hgb (12.0-16.0) g/dL Hct (37-47) % MCV (80-100) fL MCH (25-34) pg MCHC (32-36) g/dL RDW Std Deviation (36.4-46.3) fL RDW Coeff of Hope (11.5-14.5) % Plt Count (130-400) K/uL MPV (7.4-10.4) fL Immature Gran % (Auto) % Neut % (Auto) % Lymph % (Auto) % [place] % (Auto) % Eos % (Auto) % Baso % (Auto) % Neut # (Auto) (1.4-6.5) K/uL Lymph # (Auto) (1.2-3.4) K/uL [place] # (Auto) (0.11-0.59) K/uL Eos # (Auto) (0-0.5) K/uL Baso # (Auto) (0-0.2) K/uL Immature Gran # (Auto) (0.00-0.02) K/uL PT (9.0-12.0) Seconds INR (0.9-1.1) Sodium (136-145) mmol/L Potassium (3.5-5.1) mmol/L Chloride (98-107) mmol/L Carbon Dioxide (21-32) mmol/L Anion Gap (3-11) BUN (7-18) mg/dl Creatinine (0.6-1.2) mg/dl Est Cr Clr Drug Dosing ml/min Est GFR ( Amer) Est GFR (Non-Af Amer) BUN/Creatinine Ratio (10-20) Glucose (70-99) mg/dl POC Glucose 168 H (70-99) mg/dl Calcium (8.5-10.1) mg/dl Phosphorus (2.5-4.9) mg/dl Magnesium (1.8-2.4) mg/dl Troponin I 3.750 H* (0-0.045) ng/ml Medications Administered Current Inpatient Medications Acetaminophen (Acetaminophen 325 Mg Tab) 650 mg PO Q4H PRN PRN Reason: Pain or Fever Stop: 07/26/20 01:02 Last Admin: 06/26/20 23:22 Dose: 650 mg Documented by: Aspirin (Aspirin 81 Mg Ectab) 81 mg PO MoWeFr@0900 [facility] Stop: 07/26/20 08:59 Last Admin: 06/26/20 08:02 Dose: 81 mg Documented by: Calcium Carbonate (Calcium Carbonate 1250mg Tab) 1,250 mg PO DAILY [facility] Stop: 07/26/20 08:59 Last Admin: 06/27/20 08:13 Dose: 1,250 mg Documented by: Dextrose (Dextrose 50% 50 Ml Syringe) 25 - 50 ml IV UD PRN; Protocol PRN Reason: Hypoglycemia Protocol Stop: 07/26/20 02:44 Docusate Sodium (Docusate Sodium 100 Mg Cap) 100 mg PO QPM [facility] Stop: 07/26/20 20:59 Last Admin: 06/26/20 20:36 Dose: 100 mg Documented by: Ferrous Sulfate (Ferrous Sulfate 325 Mg Tab) 325 mg PO QAM [facility] Stop: 07/26/20 08:59 Last Admin: 06/27/20 08:14 Dose: 325 mg Documented by: Fluticasone Propionate (Fluticasone Propionate Na Spr 16 Gm Btl) 2 sprays NA HS PRN PRN Reason: Nasal Congestion Stop: 07/26/20 01:02 Glucagon (Glucagon For Inj 1 Mg Vial) 1 mg IM UD PRN; Protocol PRN Reason: Hypoglycemia Protocol Stop: 07/26/20 02:44 Glucose (Glucose 40% Gel 15 Gm Tube) 15 - 30 gm PO UD PRN; Protocol PRN Reason: Hypoglycemia Protocol Stop: 07/26/20 02:44 Glucose (Glucose 10 Tabs/Tube) 4 - 8 tabs PO UD PRN; Protocol PRN Reason: Hypoglycemia Protocol Stop: 07/26/20 02:44 Heparin Sodium (Porcine) (Heparin Sod 5,000 Unit/0.5 Ml Vial) 5,000 units SQ Q12 NO Stop: 07/26/20 08:59 Last Admin: 06/27/20 08:14 Dose: 5,000 units Documented by: Sodium Chloride (Nss 1000ml) 1,000 mls @ 125 mls/hr IV .Q8H [facility] Stop: 07/26/20 01:02 Last Admin: 06/27/20 03:42 Dose: 125 mls/hr Documented by: Piperacillin Sod/Tazobactam (Sod 3.375 gm/ Dextrose) 115 mls @ 28.75 mls/hr IV Q8H [facility]; Protocol Stop: 07/06/20 03:59 Last Infusion: 06/27/20 08:04 Dose: Infused Documented by: Insulin Aspart (Insulin Aspart 100 Units/Ml 3 Ml Pen) 0 units SC ACHS NO Stop: 07/26/20 02:44 Last Admin: 06/27/20 08:13 Dose: 2 units Documented by: Insulin Glargine (Insulin Glargine Solostar 100 Units/Ml 3 Ml Pen) 5 units SC BID NO Stop: 07/26/20 02:44 Last Admin: 06/27/20 08:13 Dose: 5 units Documented by: Levothyroxine Sodium (Levothyroxine Sodium 100 Mcg Tablet) 100 mcg PO DAILYBB [facility] Stop: 07/26/20 06:29 Last Admin: 06/27/20 05:33 Dose: 100 mcg Documented by: Lisinopril (Lisinopril 10 Mg Tab) 10 mg PO DAILY NO Stop: 07/26/20 08:59 Last Admin: 06/27/20 08:14 Dose: 10 mg Documented by: Miscellaneous (Carbohydrates For Hypoglycemia ) 15 - 30 gm PO UD PRN PRN Reason: Hypoglycemia Treatment Stop: 07/26/20 02:44 Miscellaneous Information (Piperacill/Tazobac Consult Active) 1 ea N/A UD PRN PRN Reason: Consult Stop: 07/25/20 20:31 Last Admin: 06/25/20 21:01 Dose: 1 ea Documented by: Nitroglycerin (Nitroglycerin Sl 0.4 Mg/Tab Tab) 0.4 mg SL UD PRN PRN Reason: Chest Pain Stop: 07/26/20 01:02 Ondansetron HCl (Ondansetron Inj 2 Mg/Ml 2 Ml Vial) 4 mg IV Q6H PRN PRN Reason: Nausea Stop: 07/26/20 01:02 Rosuvastatin Calcium (Rosuvastatin Calcium 10 Mg Tab) 10 mg PO [facility] Stop: 07/26/20 20:59 Last Admin: 06/26/20 20:36 Dose: 10 mg Documented by: Tamsulosin HCl (Tamsulosin Hcl 0.4 Mg Cap) 0.4 mg PO [facility] Stop: 07/26/20 20:59 Last Admin: 06/26/20 20:36 Dose: 0.4 mg Documented by: Tizanidine HCl (Tizanidine Hcl 4 Mg Tablet) 4 mg PO Q8H PRN PRN Reason: Muscle Pain Stop: 07/26/20 01:02 Verapamil HCl (Verapamil Hcl 180 Mg Tabcr) [facility] Stop: 07/26/20 08:59 Last Admin: 06/27/20 08:14 Dose: 180 mg Documented by: Vitamin D (Cholecalciferol 1,000 Units 25 Mcg Tab) 2,000 [facility] Stop: 07/26/20 08:59 Last Admin: 06/27/20 08:14 Dose: 2,000 units Documented by: Warfarin Sodium (Warfarin Sod 2 Mg Tab) 2 mg PO SuTuWeThFrSa@1600 [facility] Stop: 07/26/20 15:59 Last Admin: 06/26/20 16:42 Dose: 2 mg Documented by: Warfarin Sodium (Warfarin Sod 4 Mg Tab) 4 mg PO Mo@1600 [facility] Stop: 07/31/20 15:59 Zinc Sulfate (Zinc Sulfate 220 Mg Capsule) 220 mg PO QDL [facility] Stop: 07/26/20 11:29 Last Admin: 06/27/20 08:14 Dose: 220 mg Documented by:
--- NOTE | 2020-06-27 09:23 | Cardiology Progress Note ---
Date of Service June 27, 2020 Assessment & Plan (1) Sepsis: Patient admitted with likely urosepsis, resulting in weakness/confusion +Blood cultures Continue antibiotic therapy per hospitalist. (2) UTI (urinary tract infection): (3) Paroxysmal A-fib: Currently NSR. Continue verapamil and coumadin. (4) Elevated troponin: Likely type II event in setting of acute sepsis. No anginal symptoms. Non ischemic EKG Echo completed and without wall motion abnormalities, normal LVEF 55% Would continue current home medications at this time from a cardiac perspective. Case discussed with Dr. Velasco. Will follow. Admission and Anticipated Discharge Date Admission Date: June 25, 2020 Supervising Physician Co-Signing Physician Notes I discussed the case with Glen Ivan, reviewed the medical record and examined the patient. I agree that her elevated troponin is most likely type II. She has no EKG changes and no symptoms that would suggest ongoing cardiac ischemia. It is most likely the result of renal insufficiency and anemia. Subjective Patient resting in bed comfortably. Denies recent or recurrent chest pain. No SOB. No palpitations or tachypalpitations. No fevers or chills. No orthopnea, PND or edema. Primary concern is frequent BM's since admission, attributing this to antibiotic therapy. Review of Systems Review of Systems: All systems reviewed & are unremarkable except as noted in HPI & below Physical Exam Constitutional: WD/WN, vitals as above + thin; no acute distress Neck: normal visual inspection Respiratory: normal respiratory effort, lungs clear to auscultation Auscultation: no crackles, no rales and no rhonchi Cardiovascular: RRR, no murmur, no edema Vessels: no JVD Gastrointestinal (Abdomen): normal bowel sounds, soft, nontender, no hepatosplenomegaly Musculoskeletal: no cyanosis or clubbing, extremities motor strength 5/5 Neurologic: PERRL, EOMI, accommodation nl, no face palsy, no dysarthria Psychiatric: A+Ox3, euthymic affect Results & Data ([facility]) Vital Signs (Past 12 Hours) Vital Signs Temp Pulse Pulse Resp BP Pulse Ox 06/27/20 07:04 37.0 C 93 H 18 117/62 92 06/27/20 04:40 36.6 C 68 20 92/40 L 95 06/27/20 00:46 37.5 C 06/27/20 00:13 106 H 06/27/20 00:05 38.3 C H 06/26/20 23:09 38.9 C H 103 H 24 98/42 L 91 Laboratory Results 06/27/20 06/27/20 06/27/20 Range/Units 07:36 07:36 07:36 WBC 9.73 (4.8-10.8) K/uL RBC 3.29 L (4.2-5.4) M/uL Hgb 8.5 L (12.0-16.0) g/dL Hct 26.8 L (37-47) % MCV 81.5 (80-100) fL MCH 25.8 (25-34) pg MCHC 31.7 L (32-36) g/dL RDW Std Deviation 48.6 H (36.4-46.3) fL RDW Coeff of Hope 16.0 H (11.5-14.5) % Plt Count 147 (130-400) K/uL MPV 10.3 (7.4-10.4) fL Immature Gran % (Auto) 0.3 % Neut % (Auto) 70.6 % Lymph % (Auto) 20.2 % [place] % (Auto) 7.4 % Eos % (Auto) 1.3 % Baso % (Auto) 0.2 % Neut # (Auto) 6.86 H (1.4-6.5) K/uL Lymph # (Auto) 1.97 (1.2-3.4) K/uL [place] # (Auto) 0.72 H (0.11-0.59) K/uL Eos # (Auto) 0.13 (0-0.5) K/uL Baso # (Auto) 0.02 (0-0.2) K/uL Immature Gran # (Auto) 0.03 H (0.00-0.02) K/uL PT 15.3 H (9.0-12.0) Seconds INR 1.5 H (0.9-1.1) Sodium 141 (136-145) mmol/L Potassium 3.6 (3.5-5.1) mmol/L Chloride 112 H (98-107) mmol/L Carbon Dioxide 21 (21-32) mmol/L Anion Gap 8.0 (3-11) BUN 33 H (7-18) mg/dl Creatinine 1.62 H (0.6-1.2) mg/dl Est Cr Clr Drug Dosing 20.6 ml/min Est GFR ( Amer) 33.0 Est GFR (Non-Af Amer) 28.4 BUN/Creatinine Ratio 20.6 H (10-20) Glucose 148 H (70-99) mg/dl POC Glucose (70-99) mg/dl Calcium 8.3 L (8.5-10.1) mg/dl Phosphorus 2.7 (2.5-4.9) mg/dl Magnesium 2.0 (1.8-2.4) mg/dl Troponin I (0-0.045) ng/ml 06/27/20 06/26/20 06/26/20 Range/Units 07:16 20:38 16:43 WBC (4.8-10.8) K/uL RBC (4.2-5.4) M/uL Hgb (12.0-16.0) g/dL Hct (37-47) % MCV (80-100) fL MCH (25-34) pg MCHC (32-36) g/dL RDW Std Deviation (36.4-46.3) fL RDW Coeff of Hope (11.5-14.5) % Plt Count (130-400) K/uL MPV (7.4-10.4) fL Immature Gran % (Auto) % Neut % (Auto) % Lymph % (Auto) % [place] % (Auto) % Eos % (Auto) % Baso % (Auto) % Neut # (Auto) (1.4-6.5) K/uL Lymph # (Auto) (1.2-3.4) K/uL [place] # (Auto) (0.11-0.59) K/uL Eos # (Auto) (0-0.5) K/uL Baso # (Auto) (0-0.2) K/uL Immature Gran # (Auto) (0.00-0.02) K/uL PT (9.0-12.0) Seconds INR (0.9-1.1) Sodium (136-145) mmol/L Potassium (3.5-5.1) mmol/L Chloride (98-107) mmol/L Carbon Dioxide (21-32) mmol/L Anion Gap (3-11) BUN (7-18) mg/dl Creatinine (0.6-1.2) mg/dl Est Cr Clr Drug Dosing ml/min Est GFR ( Amer) Est GFR (Non-Af Amer) BUN/Creatinine Ratio (10-20) Glucose (70-99) mg/dl POC Glucose 123 H 198 H 200 H (70-99) mg/dl Calcium (8.5-10.1) mg/dl Phosphorus (2.5-4.9) mg/dl Magnesium (1.8-2.4) mg/dl Troponin I (0-0.045) ng/ml 06/26/20 06/26/20 Range/Units 11:27 11:21 WBC (4.8-10.8) K/uL RBC (4.2-5.4) M/uL Hgb (12.0-16.0) g/dL Hct (37-47) % MCV (80-100) fL MCH (25-34) pg MCHC (32-36) g/dL RDW Std Deviation (36.4-46.3) fL RDW Coeff of Hoep (11.5-14.5) % Plt Count (130-400) K/uL MPV (7.4-10.4) fL Immature Gran % (Auto) % Neut % (Auto) % Lymph % (Auto) % [place] % (Auto) % Eos % (Auto) % Baso % (Auto) % Neut # (Auto) (1.4-6.5) K/uL Lymph # (Auto) (1.2-3.4) K/uL [place] # (Auto) (0.11-0.59) K/uL Eos # (Auto) (0-0.5) K/uL Baso # (Auto) (0-0.2) K/uL Immature Gran # (Auto) (0.00-0.02) K/uL PT (9.0-12.0) Seconds INR (0.9-1.1) Sodium (136-145) mmol/L Potassium (3.5-5.1) mmol/L Chloride (98-107) mmol/L Carbon Dioxide (21-32) mmol/L Anion Gap (3-11) BUN (7-18) mg/dl Creatinine (0.6-1.2) mg/dl Est Cr Clr Drug Dosing ml/min Est GFR ( Amer) Est GFR (Non-Af Amer) BUN/Creatinine Ratio (10-20) Glucose (70-99) mg/dl POC Glucose 168 H (70-99) mg/dl Calcium (8.5-10.1) mg/dl Phosphorus (2.5-4.9) mg/dl Magnesium (1.8-2.4) mg/dl Troponin I 3.750 H* (0-0.045) ng/ml Diagnostic Findings Telemetry reviewed: NSR with PAC's. No significant arrhythmias EKG this morning: NSR with PAC's, Prior T wave inversion in inferior/anterior leads now resolved Echo completed this admission, reviewed: Normal LV systolic function. No wall motion abnormalities. LVEF 55 -60% RV is normal in function. Mild MR. Grade I diastolic dysfunction Medications Administered Current Inpatient Medications Acetaminophen (Acetaminophen 325 Mg Tab) 650 mg PO Q4H PRN PRN Reason: Pain or Fever Stop: 07/26/20 01:02 Last Admin: 06/26/20 23:22 Dose: 650 mg Documented by: Aspirin (Aspirin 81 Mg Ectab) 81 mg PO MoWeFr@0900 [facility] Stop: 07/26/20 08:59 Last Admin: 06/26/20 08:02 Dose: 81 mg Documented by: Calcium Carbonate (Calcium Carbonate 1250mg Tab) 1,250 mg PO DAILY [facility] Stop: 07/26/20 08:59 Last Admin: 06/27/20 08:13 Dose: 1,250 mg Documented by: Dextrose (Dextrose 50% 50 Ml Syringe) 25 - 50 ml IV UD PRN; Protocol PRN Reason: Hypoglycemia Protocol Stop: 07/26/20 02:44 Docusate Sodium (Docusate Sodium 100 Mg Cap) 100 mg PO QPM [facility] Stop: 07/26/20 20:59 Last Admin: 06/26/20 20:36 Dose: 100 mg Documented by: Ferrous Sulfate (Ferrous Sulfate 325 Mg Tab) 325 mg PO QAM NO Stop: 07/26/20 08:59 Last Admin: 06/27/20 08:14 Dose: 325 mg Documented by: Fluticasone Propionate (Fluticasone Propionate Na Spr 16 Gm Btl) 2 sprays NA HS PRN PRN Reason: Nasal Congestion Stop: 07/26/20 01:02 Glucagon (Glucagon For Inj 1 Mg Vial) 1 mg IM UD PRN; Protocol PRN Reason: Hypoglycemia Protocol Stop: 07/26/20 02:44 Glucose (Glucose 40% Gel 15 Gm Tube) 15 - 30 gm PO UD PRN; Protocol PRN Reason: Hypoglycemia Protocol Stop: 07/26/20 02:44 Glucose (Glucose 10 Tabs/Tube) 4 - 8 tabs PO UD PRN; Protocol PRN Reason: Hypoglycemia Protocol Stop: 07/26/20 02:44 Heparin Sodium (Porcine) (Heparin Sod 5,000 Unit/0.5 Ml Vial) 5,000 units SQ Q12 NO Stop: 07/26/20 08:59 Last Admin: 06/27/20 08:14 Dose: 5,000 units Documented by: Sodium Chloride (Nss 1000ml) 1,000 mls @ 125 mls/hr IV .Q8H NO Stop: 07/26/20 01:02 Last Admin: 06/27/20 03:42 Dose: 125 mls/hr Documented by: Piperacillin Sod/Tazobactam (Sod 3.375 gm/ Dextrose) 115 mls @ 28.75 mls/hr IV Q8H NO; Protocol Stop: 07/06/20 03:59 Last Infusion: 06/27/20 08:04 Dose: Infused Documented by: Insulin Aspart (Insulin Aspart 100 Units/Ml 3 Ml Pen) 0 units SC ACHS NO Stop: 07/26/20 02:44 Last Admin: 06/27/20 08:13 Dose: 2 units Documented by: Insulin Glargine (Insulin Glargine Solostar 100 Units/Ml 3 Ml Pen) 5 units SC BID NO Stop: 07/26/20 02:44 Last Admin: 06/27/20 08:13 Dose: 5 units Documented by: Levothyroxine Sodium (Levothyroxine Sodium 100 Mcg Tablet) 100 mcg PO DAILYBB NO Stop: 07/26/20 06:29 Last Admin: 06/27/20 05:33 Dose: 100 mcg Documented by: Lisinopril (Lisinopril 10 Mg Tab) 10 mg PO DAILY NO Stop: 07/26/20 08:59 Last Admin: 06/27/20 08:14 Dose: 10 mg Documented by: Miscellaneous (Carbohydrates For Hypoglycemia ) 15 - 30 gm PO UD PRN PRN Reason: Hypoglycemia Treatment Stop: 07/26/20 02:44 Miscellaneous Information (Piperacill/Tazobac Consult Active) 1 ea N/A UD PRN PRN Reason: Consult Stop: 07/25/20 20:31 Last Admin: 06/25/20 21:01 Dose: 1 ea Documented by: Nitroglycerin (Nitroglycerin Sl 0.4 Mg/Tab Tab) 0.4 mg SL UD PRN PRN Reason: Chest Pain Stop: 07/26/20 01:02 Ondansetron HCl (Ondansetron Inj 2 Mg/Ml 2 Ml Vial) 4 mg IV Q6H PRN PRN Reason: Nausea Stop: 07/26/20 01:02 Rosuvastatin Calcium (Rosuvastatin Calcium 10 Mg Tab) 10 mg PO [facility] Stop: 07/26/20 20:59 Last Admin: 06/26/20 20:36 Dose: 10 mg Documented by: Tamsulosin HCl (Tamsulosin Hcl 0.4 Mg Cap) 0.4 mg PO [facility] Stop: 07/26/20 20:59 Last Admin: 06/26/20 20:36 Dose: 0.4 mg Documented by: Tizanidine HCl (Tizanidine Hcl 4 Mg Tablet) 4 mg PO Q8H PRN PRN Reason: Muscle Pain Stop: 07/26/20 01:02 Verapamil HCl (Verapamil Hcl 180 Mg Tabcr) 180 mg PO [facility] Stop: 07/26/20 08:59 Last Admin: 06/27/20 08:14 Dose: 180 mg Documented by: Vitamin D (Cholecalciferol 1,000 Units 25 Mcg Tab) 2,000 units PO [facility] Stop: 07/26/20 08:59 Last Admin: 06/27/20 08:14 Dose: 2,000 units Documented by: Warfarin Sodium (Warfarin Sod 2 Mg Tab) 2 mg PO [id number]@1600 [facility] Stop: 07/26/20 15:59 Last Admin: 06/26/20 16:42 Dose: 2 mg Documented by: Warfarin Sodium (Warfarin Sod 4 Mg Tab) 4 mg PO Mo@1600 [facility] Stop: 07/31/20 15:59 Zinc Sulfate (Zinc Sulfate 220 Mg Capsule) 220 mg PO QDL [facility] Stop: 07/26/20 11:29 Last Admin: 06/27/20 08:14 Dose: 220 mg Documented by: (1) UTI (urinary tract infection) Hematuria presence: with hematuria Urinary tract infection type: acute cystitis Qualified Code(s): N30.01 - Acute cystitis with hematuria
[2020-06-27] MEDS ORDERED: METOPROLOL TARTRATE 1 MG/ML VIAL IV STA (14:12)
[2020-06-27] MEDS: ACETAMINOPHEN 325 MG TAB PO PRN ×2 (14:56→23:33)
[2020-06-27] MEDS ORDERED: WARFARIN SOD 4 MG TAB PO ONE (16:00)
[2020-06-27] MEDS ORDERED: Nursing to Pharmacy Communication SCH ×2 (16:15→20:30)
--- NOTE | 2020-06-27 17:46 | Electrocardiogram Report ---
Test Reason : Blood Pressure : / mmHG Vent. Rate : 076 BPM Atrial Rate : 076 BPM P-R Int : 162 ms QRS Dur : 084 ms QT Int : 418 ms P-R-T Axes : 081 -41 058 degrees QTc Int : 470 ms Sinus rhythm with Premature supraventricular complexes Left axis deviation Poor R wave progression, consider anterior NE vs. lead placement vs. LVH Abnormal ECG When compared with ECG of 26-JUN-2020 06:56, Nonspecific T wave abnormality no longer evident in Inferior leads Nonspecific T wave abnormality, improved in Anterolateral leads QT has lengthened Confirmed by Jericho Hartley ([id number]) on 06/27/2020 5:45:53 PM Referred By: REFERRED SELF Confirmed By:Daniel Hartley
[2020-06-27 19:17] LABS: Cdiff Antigen Positive; Cdiff Toxin A+B Negative Cdiff Toxin (Negative)
[2020-06-27] MEDS: TAMSULOSIN HCL 0.4 MG CAP PO SCH (20:48)
[2020-06-27] MEDS: ROSUVASTATIN CALCIUM 10 MG TAB PO SCH (20:48)
[2020-06-27] MEDS: SACCHAROMYCES BOULARDII 250 MG CAP PO SCH (20:48)
[2020-06-27] MEDS: DOCUSATE SODIUM 100 MG CAP PO SCH (20:49)
[2020-06-28] MEDS: PIPERACILLIN/TAZOBACTAM 3.375 GM in DEXTROSE 5% 100 ML IV SCH ×2 (03:26→11:49)
[2020-06-28] MEDS ORDERED: SODIUM CHLORIDE 0.9% 500 ML IV ONE (05:06)
[2020-06-28 05:54] LABS: Hematocrit (blood only) 22.7 % (37-47); Hemoglobin 6.9 g/dL (12.0-16.0); INR 1.6 (0.9-1.1); Mean Corpuscular Hgb Conc 30.4 g/dL (32-36); Mean Corpuscular Volume 82.2 fL (80-100); Mean Platelet Volume 10.3 fL (7.4-10.4); Platelet Count 138 K/uL (130-400); Prothrombin Time 16.7 Seconds (9.0-12.0); RDW Coefficient of Variation 16.2 % (11.5-14.5); RDW Standard Deviation 48.6 fL (36.4-46.3); Red Blood Count 2.76 M/uL (4.2-5.4); White Blood Count 8.95 K/uL (4.8-10.8)
[2020-06-28] MEDS ORDERED: SODIUM CHLORIDE 0.9% 250 ML IV PRN (05:57)
[2020-06-28 06:02] LABS: BUN Creatinine Ratio 18.9 (10-20); Calcium 7.4 mg/dl (8.5-10.1); Creatinine Clr Calc Pharmacy 22.7 ml/min; Est GFR (African American) 37.1; Magnesium 1.8 mg/dl (1.8-2.4); Potassium 3.4 mmol/L (3.5-5.1)
[2020-06-28] MEDS: LEVOTHYROXINE SODIUM 100 MCG TABLET PO SCH (06:34)
[2020-06-28 06:47] LABS: Basophils # (auto) 0.02 K/uL (0-0.2); Basophils % (auto) 0.2 %; Eosinophils % (auto) 2.2 %; Immature Granulocytes # (auto) 0.03 K/uL (0.00-0.02); Immature Granulocytes % (auto) 0.3 %; Lymphocytes # (auto) 2.32 K/uL (1.2-3.4); Lymphocytes % (auto) 25.9 %; Monocytes # (auto) 0.84 K/uL (0.11-0.59); Monocytes % (auto) 9.4 %; Neutrophils # (auto) 5.54 K/uL (1.4-6.5); RBC Morphology Unremarkable
--- NOTE | 2020-06-28 08:08 | Hospitalist Progress Note ---
Date of Service June 28, 2020 Assessment & Plan (1) Gram-negative bacteremia: (2) Sepsis: (3) Acute UTI: This is an 85-year-old female who presents with fall at home, and found to be in sepsis, and non ST elevation myocardial infarction. Sepsis. Meets criteria for sepsis with leukocytosis, tachycardia, elevated lactic acid, and urinary tract infection. Give IV fluids. Monitor BP. Zosyn was given in the ER, which we will continue. Patient also received vancomycin. Vancomycin was discontinued after blood cultures positive for gram-negative bacteria. Follow the cultures. Follow the repeat lactic acids. Closely monitor in the tele floor. Repeat lactic acid down to 1.0 (initially 3.5 and 3.8) WBC 22K on admission, now down to 9K (normalized) Blood cultx 06/25 positive for E. coli x2 Urine cltx positive for E. coli Abx switched to ceftriaxone on 06/28 Fall mostly from above. CT head shows left parieto-occipital contusion.PT/OT when stable. (4) Elevated troponin: Likely type II IN in setting of acute sepsis. She denies recent or recurrent anginal like symptoms. Currently symptom free. Mild nonspecific ST/ T wave abnormality noted on EKG, no acute changes. 2D echo ordered and results pending. Would continue current medications at this time from a cardiac perspective. Cardiology consulted, appreciate their input (5) Paroxysmal A-fib: Atrial fibrillation, continue verapamil withholding parameters, and continue Coumadin. We will follow the PT/INR. Patient developed A. fib with RVR on June 27 pm. At this time she was also retaining urine, bladder scan about 700 cc. She was catheterized, and received small dose of IV metoprolol, and converted back to normal sinus rhythm. INR subtherapeutic, increase warfarin dose, continue heparin subcu while INR subtherapeutic. Anemia Hgb 6.9 on 10 AM, likely dilutional from IVF no signs of acute bleed pt at this time denies any symptoms, such as chest pain, shortness of breath, dizziness/lightheadedness at this time pt declines blood transfusion and prefers to be monitored only History of hypertension. Continue verapamil, withholding parameters. Hold lisinopril for now. Monitor blood pressure. CRISPIN on CKD stage IV. Baseline creatinine around 1.5 to 1.7, on admission creatinine of 1.9. Received IV fluids. Cr normalized to 1.6 on 06/27 History of diabetes. Hold glipizide. Blood sugars were running high on admission. We will place on Lantus 5 units b.i.d. and insulin sliding scale and follow the blood sugars closely. 7. Hypothyroidism. Continue Synthroid. 8. Hyperlipidemia. Continue statin. 10. History of subarachnoid bleed. 11. History of methicillin-resistant Staphylococcus aureus infection. 12. History of a mild episode of depression. DVT prophylaxis, on Coumadin. INR subtherapeutic (1.7 on admission). We will place her on heparin 5000 units b.i.d. until INR is therapeutic. Admission and Anticipated Discharge Date Admission Date: June 25, 2020 Subjective Hgb 6.9 this AM, blood transfusion ordered by lelia. Consent to be obtained by pt's attending but pt later declined and wanted to be monitored instead. Pt is feeling well. Denies any fever, chills, CP or shortness of breath. No signs of GI bleeding per pt or nursing staff. Worsening anemia likely dilutional in nature. IVF stopped. Subq heparin stopped. Abx switched to ceftriaxone. No more episodes of Afib w/ RVR overnight. Pt currently afebrile. Velásquez catheter placed and urology follow- up discussed. Pt seen by Dr. Harrington in the past but now wishes to follow up with Dr. Del Real. Reese liaison aware, appointment to be scheduled. Review of Systems Review of Systems: All systems reviewed & are unremarkable except as noted in HPI & below Constitutional: + fatigue; no fever and no chills Respiratory: no cough and no dyspnea Cardiovascular: no chest pain, no palpitations and no edema Gastrointestinal: no abdominal pain, no nausea and no vomiting Genitourinary: Urinary retention Physical Exam Physical Exam: GENERAL: Elderly and frail female, not in acute distress HEENT: PERRL, EOMI, No pallor, no icterus. Oral mucosa moist. NECK: No JVD, no neck masses. CARDIOVASCULAR: S1, S2 heard. slightly tachycardic No murmur, no gallop. RESPIRATORY SYSTEM: Normal AP diameter. No accessory muscle use. No wheezing, no crackles. ABDOMEN: Soft, bowel sounds present, nontender. No distention. NEURO: Alert oriented answering questions appropriately, cranial nerves II-XII grossly intact, no facial droop, speech clear. Moves extremities spontaneously. Power 4/5 to 5/5 in all extremities. EXTREMITIES: No edema, no erythema. SKIN: no rashes or lesions noted Results & Data Results & Data ([facility]) Vital Signs (Past 12 Hours) Vital Signs Temp Pulse Pulse Resp BP Pulse Ox 06/28/20 04:12 36.5 C 79 18 95/47 L 94 06/28/20 02:59 90 06/27/20 23:24 38.4 C H 89 18 103/53 L 93 Laboratory Results 06/28/20 06/28/20 06/28/20 Range/Units 07:21 06:22 05:31 WBC (4.8-10.8) K/uL RBC (4.2-5.4) M/uL Hgb (12.0-16.0) g/dL Hct (37-47) % MCV (80-100) fL MCH (25-34) pg MCHC (32-36) g/dL RDW Std Deviation (36.4-46.3) fL RDW Coeff of Hope (11.5-14.5) % Plt Count (130-400) K/uL MPV (7.4-10.4) fL Immature Gran % (Auto) % Neut % (Auto) % Lymph % (Auto) % [place] % (Auto) % Eos % (Auto) % Baso % (Auto) % Neut # (Auto) (1.4-6.5) K/uL Lymph # (Auto) (1.2-3.4) K/uL [place] # (Auto) (0.11-0.59) K/uL Eos # (Auto) (0-0.5) K/uL Baso # (Auto) (0-0.2) K/uL Immature Gran # (Auto) (0.00-0.02) K/uL RBC Morphology PT (9.0-12.0) Seconds INR (0.9-1.1) Sodium (136-145) mmol/L Potassium (3.5-5.1) mmol/L Chloride (98-107) mmol/L Carbon Dioxide (21-32) mmol/L Anion Gap (3-11) BUN (7-18) mg/dl Creatinine (0.6-1.2) mg/dl Est Cr Clr Drug Dosing ml/min Est GFR ( Amer) Est GFR (Non-Af Amer) BUN/Creatinine Ratio (10-20) Glucose (70-99) mg/dl POC Glucose 166 H (70-99) mg/dl Lactate 0.9 (0.4-2.0) mmol/L Calcium (8.5-10.1) mg/dl Phosphorus (2.5-4.9) mg/dl Magnesium (1.8-2.4) mg/dl Stl C. diff Tox B Gene (Neg) Stl C.difficile Tox A&B (Negative) Blood Type A Positive Blood Type Recheck Antibody Screen NEGATIVE Crossmatch See Detail 06/28/20 06/28/20 06/28/20 Range/Units 05:26 05:26 05:26 WBC 8.95 (4.8-10.8) K/uL RBC 2.76 L (4.2-5.4) M/uL Hgb 6.9 L* (12.0-16.0) g/dL Hct 22.7 L (37-47) % MCV 82.2 (80-100) fL MCH 25.0 (25-34) pg MCHC 30.4 L (32-36) g/dL RDW Std Deviation 48.6 H (36.4-46.3) fL RDW Coeff of Hope 16.2 H (11.5-14.5) % Plt Count 138 (130-400) K/uL MPV 10.3 (7.4-10.4) fL Immature Gran % (Auto) 0.3 % Neut % (Auto) 62.0 % Lymph % (Auto) 25.9 % [place] % (Auto) 9.4 % Eos % (Auto) 2.2 % Baso % (Auto) 0.2 % Neut # (Auto) 5.54 (1.4-6.5) K/uL Lymph # (Auto) 2.32 (1.2-3.4) K/uL [place] # (Auto) 0.84 H (0.11-0.59) K/uL Eos # (Auto) 0.20 (0-0.5) K/uL Baso # (Auto) 0.02 (0-0.2) K/uL Immature Gran # (Auto) 0.03 H (0.00-0.02) K/uL RBC Morphology Unremarkable PT 16.7 H (9.0-12.0) Seconds INR 1.6 H (0.9-1.1) Sodium 143 (136-145) mmol/L Potassium 3.4 L (3.5-5.1) mmol/L Chloride 114 H (98-107) mmol/L Carbon Dioxide 24 (21-32) mmol/L Anion Gap 5.0 (3-11) BUN 28 H (7-18) mg/dl Creatinine 1.47 H (0.6-1.2) mg/dl Est Cr Clr Drug Dosing 22.7 ml/min Est GFR ( Amer) 37.1 Est GFR (Non-Af Amer) 32.0 BUN/Creatinine Ratio 18.9 (10-20) Glucose 160 H (70-99) mg/dl POC Glucose (70-99) mg/dl Lactate (0.4-2.0) mmol/L Calcium 7.4 L (8.5-10.1) mg/dl Phosphorus 2.0 L (2.5-4.9) mg/dl Magnesium 1.8 (1.8-2.4) mg/dl Stl C. diff Tox B Gene (Neg) Stl C.difficile Tox A&B (Negative) Blood Type Blood Type Recheck Antibody Screen Crossmatch 06/27/20 06/27/20 06/27/20 Range/Units 20:39 16:20 15:59 WBC (4.8-10.8) K/uL RBC (4.2-5.4) M/uL Hgb (12.0-16.0) g/dL Hct (37-47) % MCV (80-100) fL MCH (25-34) pg MCHC (32-36) g/dL RDW Std Deviation (36.4-46.3) fL RDW Coeff of Hope (11.5-14.5) % Plt Count (130-400) K/uL MPV (7.4-10.4) fL Immature Gran % (Auto) % Neut % (Auto) % Lymph % (Auto) % [place] % (Auto) % Eos % (Auto) % Baso % (Auto) % Neut # (Auto) (1.4-6.5) K/uL Lymph # (Auto) (1.2-3.4) K/uL [place] # (Auto) (0.11-0.59) K/uL Eos # (Auto) (0-0.5) K/uL Baso # (Auto) (0-0.2) K/uL Immature Gran # (Auto) (0.00-0.02) K/uL RBC Morphology PT (9.0-12.0) Seconds INR (0.9-1.1) Sodium (136-145) mmol/L Potassium (3.5-5.1) mmol/L Chloride (98-107) mmol/L Carbon Dioxide (21-32) mmol/L Anion Gap (3-11) BUN (7-18) mg/dl Creatinine (0.6-1.2) mg/dl Est Cr Clr Drug Dosing ml/min Est GFR ( Amer) Est GFR (Non-Af Amer) BUN/Creatinine Ratio (10-20) Glucose (70-99) mg/dl POC Glucose 188 H 248 H (70-99) mg/dl Lactate (0.4-2.0) mmol/L Calcium (8.5-10.1) mg/dl Phosphorus (2.5-4.9) mg/dl Magnesium (1.8-2.4) mg/dl Stl C. diff Tox B Gene Positive Cdiff Gene H (Neg) Stl C.difficile Tox A&B Negative Cdiff Toxin (Negative) Blood Type Blood Type Recheck Antibody Screen Crossmatch 06/27/20 06/27/20 06/27/20 Range/Units 11:40 07:36 07:36 WBC (4.8-10.8) K/uL RBC (4.2-5.4) M/uL Hgb (12.0-16.0) g/dL Hct (37-47) % MCV (80-100) fL MCH (25-34) pg MCHC (32-36) g/dL RDW Std Deviation (36.4-46.3) fL RDW Coeff of Hope (11.5-14.5) % Plt Count (130-400) K/uL MPV (7.4-10.4) fL Immature Gran % (Auto) % Neut % (Auto) % Lymph % (Auto) % [place] % (Auto) % Eos % (Auto) % Baso % (Auto) % Neut # (Auto) (1.4-6.5) K/uL Lymph # (Auto) (1.2-3.4) K/uL [place] # (Auto) (0.11-0.59) K/uL Eos # (Auto) (0-0.5) K/uL Baso # (Auto) (0-0.2) K/uL Immature Gran # (Auto) (0.00-0.02) K/uL RBC Morphology PT (9.0-12.0) Seconds INR (0.9-1.1) Sodium 141 (136-145) mmol/L Potassium 3.6 (3.5-5.1) mmol/L Chloride 112 H (98-107) mmol/L Carbon Dioxide 21 (21-32) mmol/L Anion Gap 8.0 (3-11) BUN 33 H (7-18) mg/dl Creatinine 1.62 H (0.6-1.2) mg/dl Est Cr Clr Drug Dosing 20.6 ml/min Est GFR ( Amer) 33.0 Est GFR (Non-Af Amer) 28.4 BUN/Creatinine Ratio 20.6 H (10-20) Glucose 148 H (70-99) mg/dl POC Glucose 245 H (70-99) mg/dl Lactate (0.4-2.0) mmol/L Calcium 8.3 L (8.5-10.1) mg/dl Phosphorus 2.7 (2.5-4.9) mg/dl Magnesium 2.0 (1.8-2.4) mg/dl Stl C. diff Tox B Gene (Neg) Stl C.difficile Tox A&B (Negative) Blood Type Blood Type Recheck Cancelled Antibody Screen Crossmatch 06/27/20 Range/Units 07:36 WBC (4.8-10.8) K/uL RBC (4.2-5.4) M/uL Hgb (12.0-16.0) g/dL Hct (37-47) % MCV (80-100) fL MCH (25-34) pg MCHC (32-36) g/dL RDW Std Deviation (36.4-46.3) fL RDW Coeff of Hope (11.5-14.5) % Plt Count (130-400) K/uL MPV (7.4-10.4) fL Immature Gran % (Auto) % Neut % (Auto) % Lymph % (Auto) % [place] % (Auto) % Eos % (Auto) % Baso % (Auto) % Neut # (Auto) (1.4-6.5) K/uL Lymph # (Auto) (1.2-3.4) K/uL [place] # (Auto) (0.11-0.59) K/uL Eos # (Auto) (0-0.5) K/uL Baso # (Auto) (0-0.2) K/uL Immature Gran # (Auto) (0.00-0.02) K/uL RBC Morphology PT 15.3 H (9.0-12.0) Seconds INR 1.5 H (0.9-1.1) Sodium (136-145) mmol/L Potassium (3.5-5.1) mmol/L Chloride (98-107) mmol/L Carbon Dioxide (21-32) mmol/L Anion Gap (3-11) BUN (7-18) mg/dl Creatinine (0.6-1.2) mg/dl Est Cr Clr Drug Dosing ml/min Est GFR ( Amer) Est GFR (Non-Af Amer) BUN/Creatinine Ratio (10-20) Glucose (70-99) mg/dl POC Glucose (70-99) mg/dl Lactate (0.4-2.0) mmol/L Calcium (8.5-10.1) mg/dl Phosphorus (2.5-4.9) mg/dl Magnesium (1.8-2.4) mg/dl Stl C. diff Tox B Gene (Neg) Stl C.difficile Tox A&B (Negative) Blood Type Blood Type Recheck Antibody Screen Crossmatch Medications Administered Current Inpatient Medications Acetaminophen (Acetaminophen 325 Mg Tab) 650 mg PO Q4H PRN PRN Reason: Pain or Fever Stop: 07/26/20 01:02 Last Admin: 06/27/20 23:33 Dose: 650 mg Documented by: Aspirin (Aspirin 81 Mg Ectab) 81 mg PO MoWeFr@0900 [facility] Stop: 07/26/20 08:59 Last Admin: 06/26/20 08:02 Dose: 81 mg Documented by: Calcium Carbonate (Calcium Carbonate 1250mg Tab) 1,250 mg PO DAILY NO Stop: 07/26/20 08:59 Last Admin: 06/27/20 08:13 Dose: 1,250 mg Documented by: Dextrose (Dextrose 50% 50 Ml Syringe) 25 - 50 ml IV UD PRN; Protocol PRN Reason: Hypoglycemia Protocol Stop: 07/26/20 02:44 Docusate Sodium (Docusate Sodium 100 Mg Cap) 100 mg PO QPM NO Stop: 07/26/20 20:59 Last Admin: 06/27/20 20:49 Dose: 100 mg Documented by: Ferrous Sulfate (Ferrous Sulfate 325 Mg Tab) 325 mg PO QAM NO Stop: 07/26/20 08:59 Last Admin: 06/27/20 08:14 Dose: 325 mg Documented by: Fluticasone Propionate (Fluticasone Propionate Na Spr 16 Gm Btl) 2 sprays NA HS PRN PRN Reason: Nasal Congestion Stop: 07/26/20 01:02 Glucagon (Glucagon For Inj 1 Mg Vial) 1 mg IM UD PRN; Protocol PRN Reason: Hypoglycemia Protocol Stop: 07/26/20 02:44 Glucose (Glucose 40% Gel 15 Gm Tube) 15 - 30 gm PO UD PRN; Protocol PRN Reason: Hypoglycemia Protocol Stop: 07/26/20 02:44 Glucose (Glucose 10 Tabs/Tube) 4 - 8 tabs PO UD PRN; Protocol PRN Reason: Hypoglycemia Protocol Stop: 07/26/20 02:44 Heparin Sodium (Porcine) (Heparin Sod 5,000 Unit/0.5 Ml Vial) 5,000 units SQ Q12 NO Stop: 07/26/20 08:59 Last Admin: 06/27/20 20:49 Dose: 5,000 units Documented by: Sodium Chloride (Nss 1000ml) 1,000 mls @ 80 mls/hr IV .[id number] [facility] Stop: 07/26/20 01:02 Last Admin: 06/27/20 23:19 Dose: 80 mls/hr Documented by: Piperacillin Sod/Tazobactam (Sod 3.375 gm/ Dextrose) 115 mls @ 28.75 mls/hr IV Q8H NO; Protocol Stop: 07/06/20 03:59 Last Infusion: 06/28/20 07:41 Dose: Infused Documented by: Sodium Chloride (Nss) 250 mls @ 15 mls/hr IV .[id number] PRN PRN Reason: For Transfusion Stop: 06/28/20 15:57 Insulin Aspart (Insulin Aspart 100 Units/Ml 3 Ml Pen) 0 units SC ACHS [facility] Stop: 07/26/20 02:44 Last Admin: 06/27/20 20:53 Dose: 1 units Documented by: Insulin Glargine (Insulin Glargine Solostar 100 Units/Ml 3 Ml Pen) 5 units SC BID NO Stop: 07/26/20 02:44 Last Admin: 06/27/20 20:49 Dose: 5 units Documented by: Levothyroxine Sodium (Levothyroxine Sodium 100 Mcg Tablet) 100 mcg PO DAILYBB [facility] Stop: 07/26/20 06:29 Last Admin: 06/28/20 06:34 Dose: 100 mcg Documented by: Lisinopril (Lisinopril 10 Mg Tab) 10 mg PO DAILY [facility] Stop: 07/26/20 08:59 Last Admin: 06/27/20 08:14 Dose: 10 mg Documented by: Miscellaneous (Carbohydrates For Hypoglycemia ) 15 - 30 gm PO UD PRN PRN Reason: Hypoglycemia Treatment Stop: 07/26/20 02:44 Miscellaneous Information (Piperacill/Tazobac Consult Active) 1 ea N/A UD PRN PRN Reason: Consult Stop: 07/25/20 20:31 Last Admin: 06/25/20 21:01 Dose: 1 ea Documented by: Nitroglycerin (Nitroglycerin Sl 0.4 Mg/Tab Tab) 0.4 mg SL UD PRN PRN Reason: Chest Pain Stop: 07/26/20 01:02 Ondansetron HCl (Ondansetron Inj 2 Mg/Ml 2 Ml Vial) 4 mg IV Q6H PRN PRN Reason: Nausea Stop: 07/26/20 01:02 Rosuvastatin Calcium (Rosuvastatin Calcium 10 Mg Tab) 10 mg PO HS [facility] Stop: 07/26/20 20:59 Last Admin: 06/27/20 20:48 Dose: 10 mg Documented by: Saccharomyces Boulardii (Saccharomyces Boulardii 250 Mg Cap) 250 mg PO DAILY [facility] Stop: 07/27/20 19:29 Last Admin: 06/27/20 20:48 Dose: 250 mg Documented by: Tamsulosin HCl (Tamsulosin Hcl 0.4 Mg Cap) 0.4 mg PO HS [facility] Stop: 07/26/20 20:59 Last Admin: 06/27/20 20:48 Dose: 0.4 mg Documented by: Tizanidine HCl (Tizanidine Hcl 4 Mg Tablet) 4 mg PO Q8H PRN PRN Reason: Muscle Pain Stop: 07/26/20 01:02 Verapamil HCl (Verapamil Hcl 180 Mg Tabcr) 180 mg PO [facility] Stop: 07/26/20 08:59 Last Admin: 06/27/20 08:14 Dose: 180 mg Documented by: Vitamin D (Cholecalciferol 1,000 Units 25 Mcg Tab) 2,000 units PO [facility] Stop: 07/26/20 08:59 Last Admin: 06/27/20 08:14 Dose: 2,000 units Documented by: Warfarin Sodium (Warfarin Sod 2 Mg Tab) 2 mg PO [id number]@1600 [facility] Stop: 07/26/20 15:59 Last Admin: 06/26/20 16:42 Dose: 2 mg Documented by: Warfarin Sodium (Warfarin Sod 4 Mg Tab) 4 mg PO Mo@1600 [facility] Stop: 07/31/20 15:59 Zinc Sulfate (Zinc Sulfate 220 Mg Capsule) 220 mg PO QDL [facility] Stop: 07/26/20 11:29 Last Admin: 06/27/20 08:14 Dose: 220 mg Documented by:
[2020-06-28] MEDS: SACCHAROMYCES BOULARDII 250 MG CAP PO SCH (08:22)
[2020-06-28] MEDS: FERROUS SULFATE 325 MG TAB PO SCH (08:23)
[2020-06-28] MEDS: VERAPAMIL HCL 180 MG TABCR PO SCH (08:23)
[2020-06-28] MEDS: ZINC SULFATE 220 MG CAPSULE PO SCH (08:23)
[2020-06-28] MEDS: CHOLECALCIFEROL 1,000 UNITS 25 MCG TAB PO SCH (08:23)
[2020-06-28] MEDS: CALCIUM CARBONATE 1250MG TAB PO SCH (08:24)
[2020-06-28] MEDS: lisinopril 10 MG TAB PO SCH (08:24)
[2020-06-28] MEDS: ASPIRIN 81 MG ECTAB PO SCH (08:24)
[2020-06-28] MEDS: INSULIN ASPART 100 UNITS/ML 3 ML PEN SC SCH ×4 (08:50→21:28)
[2020-06-28] MEDS: INSULIN GLARGINE SOLOSTAR 100 UNITS/ML 3 ML PEN SC SCH ×2 (08:51→21:27)
[2020-06-28] MEDS ORDERED: POTASSIUM CHLORIDE 20 MEQ TABCR PO STA (09:46)
--- NOTE | 2020-06-28 09:54 | Cardiology Progress Note ---
Date of Service June 28, 2020 Assessment & Plan (1) Sepsis: Patient admitted with likely urosepsis, resulting in weakness/confusion +Blood cultures Continue antibiotic therapy per hospitalist. Would reduce IV fluid administration given +5 L balance since admission and weight gain (2) UTI (urinary tract infection): (3) Paroxysmal A-fib: Currently NSR. Continue verapamil and coumadin. She had episode of PAF yesterday. Converted with IV metoprolol. (4) Elevated troponin: Likely type II event in setting of acute sepsis. No anginal symptoms. Non ischemic EKG Echo completed and without wall motion abnormalities, normal LVEF 55% Would continue current home medications at this time from a cardiac perspective. (5) Anemia: Patient with decline in hbg overnight. no signs of GI bleeding. she is +5 Liters since admission with IV fluids and medication administration. She is also up 5-6 Kg. Worsening anemia may be dilutional. Recommend monitoring I+O's. Low threshold to try low dose IV lasix. She was having issues with urination retention and required cath. Case discussed with Dr. Velasco. Admission and Anticipated Discharge Date Admission Date: June 25, 2020 Supervising Physician Co-Signing Physician Notes I have discussed the case with Ivan, reviewed the medical record and examined the patient. She is very comfortable and does not examine like she is in heart failure despite her anemia. The low hemoglobin could be delusional and I agree with rechecking blood counts later today. The patient will accept blood transfusions but obviously since she is feeling well is reluctant unless it is absolutely necessary. Subjective Patient feeling well this morning. Denies acute complaints CP or SOB. Her Hbg trended down this morning to 6.9. No signs of GI bleeding. Upon review of fluid/IV intake and output she is +5 liters since admission and up approx 6 kg. Worsening anemia may be dilutional in nature. Patient denies orthopnea, PND or edema. However, she has faint rales b/l noted on exam today. Review of Systems Review of Systems: All systems reviewed & are unremarkable except as noted in HPI & below Physical Exam Constitutional: WD/WN, vitals as above + thin; no acute distress Neck: normal visual inspection Respiratory: normal respiratory effort Auscultation: + crackles (faint bibasilar); no rales and no rhonchi Cardiovascular: RRR, no murmur, no edema Vessels: no JVD Gastrointestinal (Abdomen): normal bowel sounds, soft, nontender, no hepatosplenomegaly Musculoskeletal: no cyanosis or clubbing, extremities motor strength 5/5 Neurologic: PERRL, EOMI, accommodation nl, no face palsy, no dysarthria Psychiatric: A+Ox3, euthymic affect Results & Data ([facility]) Vital Signs (Past 12 Hours) Vital Signs Temp Pulse Pulse Resp BP Pulse Ox 06/28/20 08:24 113/53 L 06/28/20 04:12 36.5 C 79 18 95/47 L 94 06/28/20 02:59 90 06/27/20 23:24 38.4 C H 89 18 103/53 L 93 (1) UTI (urinary tract infection) Hematuria presence: with hematuria Urinary tract infection type: acute cystitis Qualified Code(s): N30.01 - Acute cystitis with hematuria
[2020-06-28 14:14] LABS: Hematocrit (blood only) 23.2 % (37-47); Hemoglobin 7.2 g/dL (12.0-16.0)
[2020-06-28] MEDS: cefTRIAXone SODIUM 2,000 MG in DEXTROSE 5% 50 ML IV SCH (15:24)
[2020-06-28] MEDS: WARFARIN SOD 2 MG TAB PO SCH (15:32)
[2020-06-28] MEDS: DOCUSATE SODIUM 100 MG CAP PO SCH (21:28)
[2020-06-28] MEDS: TAMSULOSIN HCL 0.4 MG CAP PO SCH (21:28)
[2020-06-28] MEDS: ROSUVASTATIN CALCIUM 10 MG TAB PO SCH (21:28)
[2020-06-29 00:03] LABS: Hematocrit (blood only) 22.9 % (37-47); Hemoglobin 7.2 g/dL (12.0-16.0)
[2020-06-29 06:06] LABS: Basophils # (auto) 0.01 K/uL (0-0.2); Basophils % (auto) 0.1 %; Eosinophils # (auto) 0.24 K/uL (0-0.5); Eosinophils % (auto) 2.7 %; Hematocrit (blood only) 22.4 % (37-47); Hemoglobin 7.1 g/dL (12.0-16.0); Immature Granulocytes # (auto) 0.03 K/uL (0.00-0.02); Immature Granulocytes % (auto) 0.3 %; Lymphocytes # (auto) 2.09 K/uL (1.2-3.4); Lymphocytes % (auto) 23.5 %; Mean Corpuscular Hemoglobin 25.4 pg (25-34); Mean Corpuscular Hgb Conc 31.7 g/dL (32-36); Mean Platelet Volume 10.1 fL (7.4-10.4); Monocytes # (auto) 0.88 K/uL (0.11-0.59); Monocytes % (auto) 9.9 %; Neutrophils # (auto) 5.65 K/uL (1.4-6.5); Neutrophils % (auto) 63.5 %; Platelet Count 160 K/uL (130-400); RDW Standard Deviation 47.3 fL (36.4-46.3)
[2020-06-29] MEDS: LEVOTHYROXINE SODIUM 100 MCG TABLET PO SCH (06:11)
[2020-06-29 06:19] LABS: INR 1.9 (0.9-1.1); Prothrombin Time 19.7 Seconds (9.0-12.0)
[2020-06-29 06:40] LABS: RBC Morphology Unremarkable
[2020-06-29 06:54] LABS: BUN Creatinine Ratio 16.5 (10-20); Calcium 7.8 mg/dl (8.5-10.1); Creatinine Clr Calc Pharmacy 30.8 ml/min; Est GFR (African American) 52.1; Est GFR (Non-African American) 44.9; Magnesium 1.8 mg/dl (1.8-2.4); Potassium 3.9 mmol/L (3.5-5.1)
[2020-06-29] MEDS: INSULIN GLARGINE SOLOSTAR 100 UNITS/ML 3 ML PEN SC SCH ×2 (08:07→21:14)
[2020-06-29] MEDS: INSULIN ASPART 100 UNITS/ML 3 ML PEN SC SCH ×4 (08:07→21:14)
[2020-06-29] MEDS: lisinopril 10 MG TAB PO SCH (08:16)
[2020-06-29] MEDS: SACCHAROMYCES BOULARDII 250 MG CAP PO SCH (08:16)
[2020-06-29] MEDS: FERROUS SULFATE 325 MG TAB PO SCH (08:17)
[2020-06-29] MEDS: CHOLECALCIFEROL 1,000 UNITS 25 MCG TAB PO SCH (08:17)
[2020-06-29] MEDS: VERAPAMIL HCL 180 MG TABCR PO SCH (08:18)
[2020-06-29] MEDS: CALCIUM CARBONATE 1250MG TAB PO SCH (08:18)
--- NOTE | 2020-06-29 11:37 | Cardiology Progress Note ---
Date of Service June 29, 2020 Assessment & Plan (1) Sepsis: E. coli yielded in blood and urine cultures. Continue antibiotic, Rocephin, for urosepsis. (2) Paroxysmal A-fib: Was in atrial fibrillation with rapid ventricular response earlier this hospital stay. Remains in sinus rhythm at present. On Coumadin, INR 1.9 today 06/29/2020. (3) Anemia: Hgb stable compared to yesterday at 7.1 Continue to monitor. DC sSQ heparing DVT prophylaxis , since INR near 2. (4) Elevated troponin: Type II event, due to demand ischemia. Cotinue ASA, , rosuvastatin. Admission and Anticipated Discharge Date Admission Date: June 25, 2020 Subjective Patient seen in cardiology follow-up. No complaints. Telemetry reveals sinus rhythm at 83 bpm. Physical Exam Physical Exam: Temp Pulse Resp BP Pulse Ox 37.0 C 79 18 120/61 93 06/29/20 08:24 06/29/20 08:24 06/29/20 08:24 06/29/20 08:24 06/29/20 08:24 Constitutional: WD/WN, vitals as above Respiratory: normal respiratory effort, lungs clear to auscultation Cardiovascular: RRR, no murmur, no edema Gastrointestinal (Abdomen): normal bowel sounds, soft, nontender, no hepatosplenomegaly Neurologic: PERRL, EOMI, accommodation nl, no face palsy, no dysarthria Results & Data ([facility]) Vital Signs (Past 12 Hours) Vital Signs Temp Pulse Pulse Resp BP BP Pulse Ox 06/29/20 08:24 37.0 C 79 18 120/61 93 06/29/20 08:00 89 06/29/20 03:21 36.7 C 82 18 122/60 92 Laboratory Results Coagulation 06/29/20 Range/Units 05:52 PT 19.7 H (9.0-12.0) Seconds CBC 06/28/20 06/28/20 06/29/20 Range/Units 13:52 23:53 05:52 WBC 8.90 (4.8-10.8) K/uL RBC 2.80 L (4.2-5.4) M/uL Hgb 7.2 L 7.2 L 7.1 L (12.0-16.0) g/dL Hct 23.2 L 22.9 L 22.4 L (37-47) % Plt Count 160 (130-400) K/uL Neut # (Auto) 5.65 (1.4-6.5) K/uL Lymph # (Auto) 2.09 (1.2-3.4) K/uL [place] # (Auto) 0.88 H (0.11-0.59) K/uL Eos # (Auto) 0.24 (0-0.5) K/uL Baso # (Auto) 0.01 (0-0.2) K/uL Comprehensive Metabolic Panel 06/29/20 Range/Units 05:52 Sodium 141 (136-145) mmol/L Potassium 3.9 (3.5-5.1) mmol/L Chloride 112 H (98-107) mmol/L Carbon Dioxide 22 (21-32) mmol/L BUN 18 (7-18) mg/dl Creatinine 1.11 D (0.6-1.2) mg/dl Glucose 125 H (70-99) mg/dl Calcium 7.8 L (8.5-10.1) mg/dl Intake and Output 06/28/20 06/29/20 06/29/20 22:59 06:59 14:59 Intake Total 70 / 1726.76 Output Total 1150 / 1150 Balance 70 / 576.76 -1150 / 576.76 Intake: IV 70 / 1726.76 Nss 1000ML 1,000 ml @ 80 mls/hr 0 / 952 IV .[id number] NO Rx#:[id number] Rocephin 2,000 mg In D5w 50 ml 70 / 70 @ 140 mls/hr IV Q24H NO Rx#: [id number] Output: Urine Amount (Catheter) 1150 / 1150 Velásquez/Indwelling 1150 / 1150 Other: Weight 65.8 kg Weight Measurement Method Built in [facility]
--- NOTE | 2020-06-29 11:42 | Hospitalist Progress Note ---
Date of Service June 29, 2020 Assessment & Plan (1) Gram-negative bacteremia: (2) Sepsis: (3) Acute UTI: This is an 85-year-old female who presents with fall at home, and found to be septic, with non-ST elevation myocardial infarction. Sepsis. Meets criteria for sepsis with leukocytosis, tachycardia, elevated lactic acid, and urinary tract infection. IV fluids. Zosyn was started in the ER, which was continued. Patient also received vancomycin. Vancomycin was discontinued after blood cultures positive for gram-negative bacteria. Follow the cultures. Follow the repeat lactic acids. Closely monitor in the tele floor. Repeat lactic acid down to 1.0 (initially 3.5 and 3.8) WBC 22K on admission, now down to 9K (normalized) Blood cultx 06/25 positive for E. coli x2 Urine cltx positive for E. coli Abx switched to ceftriaxone on 06/28 Pt afebrile since 06/28 Fall mostly from above. CT head shows left parieto-occipital contusion.PT/OT when stable. (4) Elevated troponin: Likely type II SD in setting of acute sepsis. She denies recent or recurrent anginal like symptoms. Currently symptom free. Mild nonspecific ST/ T wave abnormality noted on EKG, no acute changes. 2D echo obtained and cardiology consulted Continue current cardiac medications (5) Paroxysmal A-fib: Atrial fibrillation, continue verapamil withholding parameters, and continue Coumadin. We will follow the PT/INR. Patient developed A. fib with RVR on June 27 pm. At this time she was also retaining urine, bladder scan about 700 cc. She was catheterized, and received small dose of IV metoprolol, and converted back to normal sinus rhythm. INR subtherapeutic, increase warfarin dose, continue heparin subcu while INR subtherapeutic. Anemia Hgb 6.9 on 06/28 AM, likely dilutional from IVF no signs of acute bleed pt at this time denies any symptoms, such as chest pain, shortness of breath, dizziness/lightheadedness at this time pt declines blood transfusion and prefers to be monitored only History of hypertension. Continue verapamil, withholding parameters. Hold lisinopril for now. Monitor blood pressure. CRISPIN on CKD stage IV. Baseline creatinine around 1.5 to 1.7, on admission creatinine of 1.9. Received IV fluids. Cr normalized to 1.6 on 06/27 History of diabetes. Hold glipizide. Blood sugars were running high on admission. We will place on Lantus 5 units b.i.d. and insulin sliding scale and follow the blood sugars closely. Hypothyroidism. Continue Synthroid. Hyperlipidemia. Continue statin. History of subarachnoid bleed. History of methicillin-resistant Staphylococcus aureus infection. History of a mild episode of depression. DVT prophylaxis, on Coumadin. INR subtherapeutic (1.7 on admission). We will place her on heparin 5000 units b.i.d. until INR is therapeutic. Admission and Anticipated Discharge Date Admission Date: June 25, 2020 Subjective No acute events overnight. Pt is lying in bed, in NAD. Denies any fever, chills, chest pain, shortness of breath, abd. pain, nausea, vomiting. Diarrhea has improved. Last febrile on 06/27 PM. Telemetry reviewed- sinus rhythm hr in 80s. Review of Systems Review of Systems: All systems reviewed & are unremarkable except as noted in HPI & below Constitutional: + fatigue; no fever and no chills Respiratory: no cough and no dyspnea Cardiovascular: no chest pain and no palpitations Gastrointestinal: no abdominal pain, no nausea and no vomiting Physical Exam Physical Exam: GENERAL: Elderly and frail female, not in acute distress HEENT: PERRL, EOMI, No pallor, no icterus. Oral mucosa moist. NECK: No JVD, no neck masses. CARDIOVASCULAR: S1, S2 heard. RRR No murmur, no gallop. RESPIRATORY SYSTEM: Normal AP diameter. No accessory muscle use. No wheezing, no crackles. ABDOMEN: Soft, bowel sounds present, nontender. No distention. : Velásquez catheter placed, drains yellow urine NEURO: Alert oriented answering questions appropriately, cranial nerves II-XII grossly intact, no facial droop, speech clear. Moves extremities spontaneously. Power 4/5 to 5/5 in all extremities. EXTREMITIES: No edema, no erythema. SKIN: no rashes or lesions noted Results & Data Results & Data ([facility]) Vital Signs (Past 12 Hours) Vital Signs Temp Pulse Pulse Resp BP BP Pulse Ox 06/29/20 08:24 37.0 C 79 18 120/61 93 06/29/20 08:00 89 06/29/20 03:21 36.7 C 82 18 122/60 92 Laboratory Results 06/29/20 06/29/20 06/29/20 Range/Units 07:50 05:52 05:52 WBC 8.90 (4.8-10.8) K/uL RBC 2.80 L (4.2-5.4) M/uL Hgb 7.1 L (12.0-16.0) g/dL Hct 22.4 L (37-47) % MCV 80.0 (80-100) fL MCH 25.4 (25-34) pg MCHC 31.7 L (32-36) g/dL RDW Std Deviation 47.3 H (36.4-46.3) fL RDW Coeff of Hope 16.0 H (11.5-14.5) % Plt Count 160 (130-400) K/uL MPV 10.1 (7.4-10.4) fL Immature Gran % (Auto) 0.3 % Neut % (Auto) 63.5 % Lymph % (Auto) 23.5 % Bent % (Auto) 9.9 % Eos % (Auto) 2.7 % Baso % (Auto) 0.1 % Neut # (Auto) 5.65 (1.4-6.5) K/uL Lymph # (Auto) 2.09 (1.2-3.4) K/uL Bent # (Auto) 0.88 H (0.11-0.59) K/uL Eos # (Auto) 0.24 (0-0.5) K/uL Baso # (Auto) 0.01 (0-0.2) K/uL Immature Gran # (Auto) 0.03 H (0.00-0.02) K/uL RBC Morphology Unremarkable PT (9.0-12.0) Seconds INR (0.9-1.1) Sodium 141 (136-145) mmol/L Potassium 3.9 (3.5-5.1) mmol/L Chloride 112 H (98-107) mmol/L Carbon Dioxide 22 (21-32) mmol/L Anion Gap 7.0 (3-11) BUN 18 (7-18) mg/dl Creatinine 1.11 D (0.6-1.2) mg/dl Est Cr Clr Drug Dosing 30.8 ml/min Est GFR ( Amer) 52.1 Est GFR (Non-Af Amer) 44.9 BUN/Creatinine Ratio 16.5 (10-20) Glucose 125 H (70-99) mg/dl POC Glucose 133 H (70-99) mg/dl Calcium 7.8 L (8.5-10.1) mg/dl Magnesium 1.8 (1.8-2.4) mg/dl COVID-19 Eval Order COVID-19 PCR (Negative) 06/29/20 06/28/20 06/28/20 Range/Units 05:52 23:53 20:38 WBC (4.8-10.8) K/uL RBC (4.2-5.4) M/uL Hgb 7.2 L (12.0-16.0) g/dL Hct 22.9 L (37-47) % MCV (80-100) fL MCH (25-34) pg MCHC (32-36) g/dL RDW Std Deviation (36.4-46.3) fL RDW Coeff of Hope (11.5-14.5) % Plt Count (130-400) K/uL MPV (7.4-10.4) fL Immature Gran % (Auto) % Neut % (Auto) % Lymph % (Auto) % Bent % (Auto) % Eos % (Auto) % Baso % (Auto) % Neut # (Auto) (1.4-6.5) K/uL Lymph # (Auto) (1.2-3.4) K/uL Bent # (Auto) (0.11-0.59) K/uL Eos # (Auto) (0-0.5) K/uL Baso # (Auto) (0-0.2) K/uL Immature Gran # (Auto) (0.00-0.02) K/uL RBC Morphology PT 19.7 H (9.0-12.0) Seconds INR 1.9 H (0.9-1.1) Sodium (136-145) mmol/L Potassium (3.5-5.1) mmol/L Chloride (98-107) mmol/L Carbon Dioxide (21-32) mmol/L Anion Gap (3-11) BUN (7-18) mg/dl Creatinine (0.6-1.2) mg/dl Est Cr Clr Drug Dosing ml/min Est GFR ( Amer) Est GFR (Non-Af Amer) BUN/Creatinine Ratio (10-20) Glucose (70-99) mg/dl POC Glucose 181 H (70-99) mg/dl Calcium (8.5-10.1) mg/dl Magnesium (1.8-2.4) mg/dl COVID-19 Eval Order COVID-19 PCR (Negative) 06/28/20 06/28/20 06/28/20 Range/Units 16:24 13:55 13:55 WBC (4.8-10.8) K/uL RBC (4.2-5.4) M/uL Hgb (12.0-16.0) g/dL Hct (37-47) % MCV (80-100) fL MCH (25-34) pg MCHC (32-36) g/dL RDW Std Deviation (36.4-46.3) fL RDW Coeff of Hope (11.5-14.5) % Plt Count (130-400) K/uL MPV (7.4-10.4) fL Immature Gran % (Auto) % Neut % (Auto) % Lymph % (Auto) % Bent % (Auto) % Eos % (Auto) % Baso % (Auto) % Neut # (Auto) (1.4-6.5) K/uL Lymph # (Auto) (1.2-3.4) K/uL Bent # (Auto) (0.11-0.59) K/uL Eos # (Auto) (0-0.5) K/uL Baso # (Auto) (0-0.2) K/uL Immature Gran # (Auto) (0.00-0.02) K/uL RBC Morphology PT (9.0-12.0) Seconds INR (0.9-1.1) Sodium (136-145) mmol/L Potassium (3.5-5.1) mmol/L Chloride (98-107) mmol/L Carbon Dioxide (21-32) mmol/L Anion Gap (3-11) BUN (7-18) mg/dl Creatinine (0.6-1.2) mg/dl Est Cr Clr Drug Dosing ml/min Est GFR ( Amer) Est GFR (Non-Af Amer) BUN/Creatinine Ratio (-20) Glucose (70-99) mg/dl POC Glucose 209 H (70-99) mg/dl Calcium (8.5-10.1) mg/dl Magnesium (1.8-2.4) mg/dl COVID-19 Eval Order Covid19 Done at [facility] COVID-19 PCR NEGATIVE (Negative) 06/28/20 Range/Units 13:52 WBC (4.8-10.8) K/uL RBC (4.2-5.4) M/uL Hgb 7.2 L (12.0-16.0) g/dL Hct 23.2 L (37-47) % MCV (80-100) fL MCH (25-34) pg MCHC (32-36) g/dL RDW Std Deviation (36.4-46.3) fL RDW Coeff of Hope (11.5-14.5) % Plt Count (130-400) K/uL MPV (7.4-10.4) fL Immature Gran % (Auto) % Neut % (Auto) % Lymph % (Auto) % Bent % (Auto) % Eos % (Auto) % Baso % (Auto) % Neut # (Auto) (1.4-6.5) K/uL Lymph # (Auto) (1.2-3.4) K/uL Bent # (Auto) (0.11-0.59) K/uL Eos # (Auto) (0-0.5) K/uL Baso # (Auto) (0-0.2) K/uL Immature Gran # (Auto) (0.00-0.02) K/uL RBC Morphology PT (9.0-12.0) Seconds INR (0.9-1.1) Sodium (136-145) mmol/L Potassium (3.5-5.1) mmol/L Chloride (98-107) mmol/L Carbon Dioxide (21-32) mmol/L Anion Gap (3-11) BUN (7-18) mg/dl Creatinine (0.6-1.2) mg/dl Est Cr Clr Drug Dosing ml/min Est GFR ( Amer) Est GFR (Non-Af Amer) BUN/Creatinine Ratio (10-20) Glucose (70-99) mg/dl POC Glucose (70-99) mg/dl Calcium (8.5-10.1) mg/dl Magnesium (1.8-2.4) mg/dl COVID-19 Eval Order COVID-19 PCR (Negative) Medications Administered Current Inpatient Medications Acetaminophen (Acetaminophen 325 Mg Tab) 650 mg PO Q4H PRN PRN Reason: Pain or Fever Stop: 07/26/20 01:02 Last Admin: 06/27/20 23:33 Dose: 650 mg Documented by: Aspirin (Aspirin 81 Mg Ectab) 81 mg PO MoWeFr@0900 NO Stop: 07/26/20 08:59 Last Admin: 06/28/20 08:24 Dose: 81 mg Documented by: Calcium Carbonate (Calcium Carbonate 1250mg Tab) 1,250 mg PO DAILY NO Stop: 07/26/20 08:59 Last Admin: 06/29/20 08:18 Dose: 1,250 mg Documented by: Dextrose (Dextrose 50% 50 Ml Syringe) 25 - 50 ml IV UD PRN; Protocol PRN Reason: Hypoglycemia Protocol Stop: 07/26/20 02:44 Docusate Sodium (Docusate Sodium 100 Mg Cap) 100 mg PO QPM NO Stop: 07/26/20 20:59 Last Admin: 06/28/20 21:28 Dose: Not Given Documented by: Ferrous Sulfate (Ferrous Sulfate 325 Mg Tab) 325 mg PO QAM NO Stop: 07/26/20 08:59 Last Admin: 06/29/20 08:17 Dose: 325 mg Documented by: Fluticasone Propionate (Fluticasone Propionate Na Spr 16 Gm Btl) 2 sprays NA HS PRN PRN Reason: Nasal Congestion Stop: 07/26/20 01:02 Glucagon (Glucagon For Inj 1 Mg Vial) 1 mg IM UD PRN; Protocol PRN Reason: Hypoglycemia Protocol Stop: 07/26/20 02:44 Glucose (Glucose 40% Gel 15 Gm Tube) 15 - 30 gm PO UD PRN; Protocol PRN Reason: Hypoglycemia Protocol Stop: 07/26/20 02:44 Glucose (Glucose 10 Tabs/Tube) 4 - 8 tabs PO UD PRN; Protocol PRN Reason: Hypoglycemia Protocol Stop: 07/26/20 02:44 Ceftriaxone Sodium 2,000 mg/ (Dextrose) 70 mls @ 140 mls/hr IV Q24H NO Stop: 07/12/20 15:59 Last Infusion: 06/28/20 16:06 Dose: Infused Documented by: Insulin Aspart (Insulin Aspart 100 Units/Ml 3 Ml Pen) 0 units SC ACHS [facility] Stop: 07/26/20 02:44 Last Admin: 06/29/20 08:07 Dose: 5 units Documented by: Insulin Glargine (Insulin Glargine Solostar 100 Units/Ml 3 Ml Pen) 5 units SC BID [facility] Stop: 07/26/20 02:44 Last Admin: 06/29/20 08:07 Dose: 5 units Documented by: Levothyroxine Sodium (Levothyroxine Sodium 100 Mcg Tablet) 100 mcg PO DAILYBB [facility] Stop: 07/26/20 06:29 Last Admin: 06/29/20 06:11 Dose: 100 mcg Documented by: Lisinopril (Lisinopril 10 Mg Tab) 10 mg PO DAILY [facility] Stop: 07/26/20 08:59 Last Admin: 06/29/20 08:16 Dose: 10 mg Documented by: Miscellaneous (Carbohydrates For Hypoglycemia ) 15 - 30 gm PO UD PRN PRN Reason: Hypoglycemia Treatment Stop: 07/26/20 02:44 Nitroglycerin (Nitroglycerin Sl 0.4 Mg/Tab Tab) 0.4 mg SL UD PRN PRN Reason: Chest Pain Stop: 07/26/20 01:02 Ondansetron HCl (Ondansetron Inj 2 Mg/Ml 2 Ml Vial) 4 mg IV Q6H PRN PRN Reason: Nausea Stop: 07/26/20 01:02 Rosuvastatin Calcium (Rosuvastatin Calcium 10 Mg Tab) 10 mg PO HS [facility] Stop: 07/26/20 20:59 Last Admin: 06/28/20 21:28 Dose: 10 mg Documented by: Saccharomyces Boulardii (Saccharomyces Boulardii 250 Mg Cap) 250 mg PO DAILY [facility] Stop: 07/27/20 19:29 Last Admin: 06/29/20 08:16 Dose: 250 mg Documented by: Tamsulosin HCl (Tamsulosin Hcl 0.4 Mg Cap) 0.4 mg PO HS [facility] Stop: 07/26/20 20:59 Last Admin: 06/28/20 21:28 Dose: 0.4 mg Documented by: Tizanidine HCl (Tizanidine Hcl 4 Mg Tablet) 4 mg PO Q8H PRN PRN Reason: Muscle Pain Stop: 07/26/20 01:02 Verapamil HCl (Verapamil Hcl 180 Mg Tabcr) 180 mg PO QAM [facility] Stop: 07/26/20 08:59 Last Admin: 06/29/20 08:18 Dose: 180 mg Documented by: Vitamin D (Cholecalciferol 1,000 Units 25 Mcg Tab) 2,000 units PO QAM [facility] Stop: 07/26/20 08:59 Last Admin: 06/29/20 08:17 Dose: 2,000 units Documented by: Warfarin Sodium (Warfarin Sod 2 Mg Tab) 2 mg PO [id number]@1600 [facility] Stop: 07/26/20 15:59 Last Admin: 06/28/20 15:32 Dose: 2 mg Documented by: Warfarin Sodium (Warfarin Sod 4 Mg Tab) 4 mg PO Mo@1600 [facility] Stop: 07/31/20 15:59 Zinc Sulfate (Zinc Sulfate 220 Mg Capsule) 220 mg PO QDL [facility] Stop: 07/26/20 11:29 Last Admin: 06/28/20 08:23 Dose: 220 mg Documented by:
[2020-06-29] MEDS: ZINC SULFATE 220 MG CAPSULE PO SCH (12:19)
[2020-06-29] MEDS: WARFARIN SOD 2 MG TAB PO SCH (15:43)
[2020-06-29] MEDS: cefTRIAXone SODIUM 2,000 MG in DEXTROSE 5% 50 ML IV SCH (15:43)
[2020-06-29] MEDS: TAMSULOSIN HCL 0.4 MG CAP PO SCH (21:15)
[2020-06-29] MEDS: ROSUVASTATIN CALCIUM 10 MG TAB PO SCH (21:15)
[2020-06-29] MEDS: DOCUSATE SODIUM 100 MG CAP PO SCH (21:16)
[2020-06-30] MEDS: ACETAMINOPHEN 325 MG TAB PO PRN (02:44)
[2020-06-30] MEDS: LEVOTHYROXINE SODIUM 100 MCG TABLET PO SCH (06:29)
[2020-06-30 07:29] LABS: Basophils # (auto) 0.02 K/uL (0-0.2); Basophils % (auto) 0.2 %; Eosinophils # (auto) 0.29 K/uL (0-0.5); Eosinophils % (auto) 3.4 %; Hematocrit (blood only) 22.8 % (37-47); Hemoglobin 7.2 g/dL (12.0-16.0); Immature Granulocytes # (auto) 0.04 K/uL (0.00-0.02); Immature Granulocytes % (auto) 0.5 %; Lymphocytes # (auto) 2.14 K/uL (1.2-3.4); Lymphocytes % (auto) 25.4 %; Mean Corpuscular Hemoglobin 25.4 pg (25-34); Mean Corpuscular Hgb Conc 31.6 g/dL (32-36); Mean Corpuscular Volume 80.6 fL (80-100); Monocytes # (auto) 0.84 K/uL (0.11-0.59); Neutrophils # (auto) 5.11 K/uL (1.4-6.5); Neutrophils % (auto) 60.5 %; Platelet Count 193 K/uL (130-400); RDW Coefficient of Variation 15.9 % (11.5-14.5); RDW Standard Deviation 47.4 fL (36.4-46.3); Red Blood Count 2.83 M/uL (4.2-5.4); White Blood Count 8.44 K/uL (4.8-10.8)
[2020-06-30 07:51] LABS: INR 2.2 (0.9-1.1); Prothrombin Time 21.9 Seconds (9.0-12.0)
[2020-06-30 08:15] LABS: BUN Creatinine Ratio 15.8 (10-20); Calcium 8.6 mg/dl (8.5-10.1); Creatinine Clr Calc Pharmacy 31.7 ml/min; Est GFR (African American) 53.8; Est GFR (Non-African American) 46.4; Potassium 3.8 mmol/L (3.5-5.1)
[2020-06-30 08:17] LABS: RBC Morphology Unremarkable
[2020-06-30] MEDS: INSULIN ASPART 100 UNITS/ML 3 ML PEN SC SCH ×4 (08:22→20:37)
[2020-06-30] MEDS: VERAPAMIL HCL 180 MG TABCR PO SCH (08:24)
[2020-06-30] MEDS: SACCHAROMYCES BOULARDII 250 MG CAP PO SCH (08:24)
[2020-06-30] MEDS: FERROUS SULFATE 325 MG TAB PO SCH (08:24)
[2020-06-30] MEDS: INSULIN GLARGINE SOLOSTAR 100 UNITS/ML 3 ML PEN SC SCH ×2 (08:25→20:37)
[2020-06-30] MEDS: CALCIUM CARBONATE 1250MG TAB PO SCH (08:26)
[2020-06-30] MEDS: CHOLECALCIFEROL 1,000 UNITS 25 MCG TAB PO SCH (08:26)
[2020-06-30] MEDS: lisinopril 10 MG TAB PO SCH (08:27)
[2020-06-30] MEDS: ZINC SULFATE 220 MG CAPSULE PO SCH (11:50)
[2020-06-30] MEDS: cefTRIAXone SODIUM 2,000 MG in DEXTROSE 5% 50 ML IV SCH (15:39)
[2020-06-30] MEDS: WARFARIN SOD 2 MG TAB PO SCH (16:10)
[2020-06-30] MEDS: ROSUVASTATIN CALCIUM 10 MG TAB PO SCH (20:38)
[2020-06-30] MEDS: TAMSULOSIN HCL 0.4 MG CAP PO SCH (20:38)
[2020-06-30] MEDS: DOCUSATE SODIUM 100 MG CAP PO SCH (20:42)
--- NOTE | 2020-06-30 23:24 | Hospitalist Progress Note ---
Date of Service June 30, 2020 Assessment & Plan (1) Gram-negative bacteremia: (2) Sepsis: (3) Acute UTI: This is an 85-year-old female who presents with fall at home, and found to be septic, with non-ST elevation myocardial infarction. Sepsis. Meets criteria for sepsis with leukocytosis, tachycardia, elevated lactic acid, and urinary tract infection. IV fluids. Zosyn was started in the ER, which was continued. Patient also received vancomycin. Vancomycin was discontinued after blood cultures positive for gram-negative bacteria. Follow the cultures. Follow the repeat lactic acids. Closely monitor in the tele floor. Repeat lactic acid down to 1.0 (initially 3.5 and 3.8) WBC 22K on admission, now down to 8.5K (normalized) Blood cultx 06/25 positive for E. coli x2 Urine cltx positive for E. coli Abx switched to ceftriaxone on 06/28 Pt afebrile since 06/28 Fall mostly from above. CT head shows left parieto-occipital contusion.PT/OT when stable. (4) Elevated troponin: Likely type II IA in setting of acute sepsis. She denies recent or recurrent anginal like symptoms. Currently symptom free. Mild nonspecific ST/ T wave abnormality noted on EKG, no acute changes. 2D echo obtained and cardiology consulted Continue current cardiac medications (5) Paroxysmal A-fib: Atrial fibrillation, continue verapamil withholding parameters, and continue Coumadin. We will follow the PT/INR. Patient developed A. fib with RVR on June 27 pm. At this time she was also retaining urine, bladder scan about 700 cc. She was catheterized, and received small dose of IV metoprolol, and converted back to normal sinus rhythm. INR subtherapeutic, increase warfarin dose, continue heparin subcu while INR subtherapeutic. Anemia Hgb 6.9 on 10 AM, likely dilutional from IVF no signs of acute bleed pt at this time denies any symptoms, such as chest pain, shortness of breath, dizziness/lightheadedness at this time pt declines blood transfusion and prefers to be monitored only Current Hgb 7.2 History of hypertension. Continue verapamil, withholding parameters. Hold lisinopril for now. Monitor blood pressure. CRISPIN on CKD stage IV. Baseline creatinine around 1.5 to 1.7, on admission creatinine of 1.9. Received IV fluids. Cr normalized to 1.6 on 06/27 History of diabetes. Hold glipizide. Blood sugars were running high on admission. We will place on Lantus 5 units b.i.d. and insulin sliding scale and follow the blood sugars closely. Hypothyroidism. Continue Synthroid. Hyperlipidemia. Continue statin. History of subarachnoid bleed. History of methicillin-resistant Staphylococcus aureus infection. History of a mild episode of depression. DVT prophylaxis, on Coumadin. INR subtherapeutic (1.7 on admission). We will place her on heparin 5000 units b.i.d. until INR is therapeutic. Admission and Anticipated Discharge Date Admission Date: June 25, 2020 Subjective No acute events overnight. Pt is lying in bed, comfortable. Denies any fever, chills, chest pain, shortness of breath, abd. pain, nausea, vomiting. Diarrhea has improved. Last time febrile on 06/27 PM. Review of Systems Review of Systems: All systems reviewed & are unremarkable except as noted in HPI & below Constitutional: no fever and no chills Respiratory: no cough and no dyspnea Cardiovascular: no chest pain and no palpitations Gastrointestinal: no abdominal pain, no nausea and no vomiting Physical Exam Physical Exam: GENERAL: Elderly and frail female, not in acute distress HEENT: PERRL, EOMI, No pallor, no icterus. Oral mucosa moist. NECK: No JVD, no neck masses. CARDIOVASCULAR: S1, S2 heard. RRR No murmur, no gallop. RESPIRATORY SYSTEM: Normal AP diameter. No accessory muscle use. No wheezing, no crackles. ABDOMEN: Soft, bowel sounds present, nontender. No distention. : Velásquez catheter placed, drains yellow urine NEURO: Alert oriented answering questions appropriately, cranial nerves II-XII grossly intact, no facial droop, speech clear. Moves extremities spontaneously. Power 4/5 to 5/5 in all extremities. EXTREMITIES: No edema, no erythema. SKIN: no rashes or lesions noted Results & Data Results & Data ([facility]) Vital Signs (Past 12 Hours) Vital Signs Temp Pulse Resp BP Pulse Ox 06/30/20 20:33 37.0 C 85 19 120/63 91 06/30/20 15:07 36.8 C 82 21 133/66 92 06/30/20 12:24 36.6 C 81 18 125/62 95 Laboratory Results 06/30/20 06/30/20 06/30/20 Range/Units 20:27 16:08 11:48 WBC (4.8-10.8) K/uL RBC (4.2-5.4) M/uL Hgb (12.0-16.0) g/dL Hct (37-47) % MCV (80-100) fL MCH (25-34) pg MCHC (32-36) g/dL RDW Std Deviation (36.4-46.3) fL RDW Coeff of Hope (11.5-14.5) % Plt Count (130-400) K/uL MPV (7.4-10.4) fL Immature Gran % (Auto) % Neut % (Auto) % Lymph % (Auto) % Garza % (Auto) % Eos % (Auto) % Baso % (Auto) % Neut # (Auto) (1.4-6.5) K/uL Lymph # (Auto) (1.2-3.4) K/uL Garza # (Auto) (0.11-0.59) K/uL Eos # (Auto) (0-0.5) K/uL Baso # (Auto) (0-0.2) K/uL Immature Gran # (Auto) (0.00-0.02) K/uL RBC Morphology PT (9.0-12.0) Seconds INR (0.9-1.1) Sodium (136-145) mmol/L Potassium (3.5-5.1) mmol/L Chloride (98-107) mmol/L Carbon Dioxide (21-32) mmol/L Anion Gap (3-11) BUN (7-18) mg/dl Creatinine (0.6-1.2) mg/dl Est Cr Clr Drug Dosing ml/min Est GFR ( Amer) Est GFR (Non-Af Amer) BUN/Creatinine Ratio (10-20) Glucose (70-99) mg/dl POC Glucose 276 H 211 H 204 H (70-99) mg/dl Calcium (8.5-10.1) mg/dl Crossmatch 06/30/20 06/30/20 06/30/20 Range/Units 07:49 07:02 07:02 WBC 8.44 (4.8-10.8) K/uL RBC 2.83 L (4.2-5.4) M/uL Hgb 7.2 L (12.0-16.0) g/dL Hct 22.8 L (37-47) % MCV 80.6 (80-100) fL MCH 25.4 (25-34) pg MCHC 31.6 L (32-36) g/dL RDW Std Deviation 47.4 H (36.4-46.3) fL RDW Coeff of Hope 15.9 H (11.5-14.5) % Plt Count 193 (130-400) K/uL MPV 10.0 (7.4-10.4) fL Immature Gran % (Auto) 0.5 % Neut % (Auto) 60.5 % Lymph % (Auto) 25.4 % Garza % (Auto) 10.0 % Eos % (Auto) 3.4 % Baso % (Auto) 0.2 % Neut # (Auto) 5.11 (1.4-6.5) K/uL Lymph # (Auto) 2.14 (1.2-3.4) K/uL Garza # (Auto) 0.84 H (0.11-0.59) K/uL Eos # (Auto) 0.29 (0-0.5) K/uL Baso # (Auto) 0.02 (0-0.2) K/uL Immature Gran # (Auto) 0.04 H (0.00-0.02) K/uL RBC Morphology Unremarkable PT (9.0-12.0) Seconds INR (0.9-1.1) Sodium 139 (136-145) mmol/L Potassium 3.8 (3.5-5.1) mmol/L Chloride 108 H (98-107) mmol/L Carbon Dioxide 25 (21-32) mmol/L Anion Gap 6.0 (3-11) BUN 17 (7-18) mg/dl Creatinine 1.08 (0.6-1.2) mg/dl Est Cr Clr Drug Dosing 31.7 ml/min Est GFR ( Amer) 53.8 Est GFR (Non-Af Amer) 46.4 BUN/Creatinine Ratio 15.8 (10-20) Glucose 148 H (70-99) mg/dl POC Glucose 151 H (70-99) mg/dl Calcium 8.6 (8.5-10.1) mg/dl Crossmatch 06/30/20 06/28/20 Range/Units 07:02 06:22 WBC (4.8-10.8) K/uL RBC (4.2-5.4) M/uL Hgb (12.0-16.0) g/dL Hct (37-47) % MCV (80-100) fL MCH (25-34) pg MCHC (32-36) g/dL RDW Std Deviation (36.4-46.3) fL RDW Coeff of Hope (11.5-14.5) % Plt Count (130-400) K/uL MPV (7.4-10.4) fL Immature Gran % (Auto) % Neut % (Auto) % Lymph % (Auto) % Garza % (Auto) % Eos % (Auto) % Baso % (Auto) % Neut # (Auto) (1.4-6.5) K/uL Lymph # (Auto) (1.2-3.4) K/uL Garza # (Auto) (0.11-0.59) K/uL Eos # (Auto) (0-0.5) K/uL Baso # (Auto) (0-0.2) K/uL Immature Gran # (Auto) (0.00-0.02) K/uL RBC Morphology PT 21.9 H (9.0-12.0) Seconds INR 2.2 H (0.9-1.1) Sodium (136-145) mmol/L Potassium (3.5-5.1) mmol/L Chloride (98-107) mmol/L Carbon Dioxide (21-32) mmol/L Anion Gap (3-11) BUN (7-18) mg/dl Creatinine (0.6-1.2) mg/dl Est Cr Clr Drug Dosing ml/min Est GFR ( Amer) Est GFR (Non-Af Amer) BUN/Creatinine Ratio (10-20) Glucose (70-99) mg/dl POC Glucose (70-99) mg/dl Calcium (8.5-10.1) mg/dl Crossmatch See Detail Medications Administered Current Inpatient Medications Acetaminophen (Acetaminophen 325 Mg Tab) 650 mg PO Q4H PRN PRN Reason: Pain or Fever Stop: 07/26/20 01:02 Last Admin: 06/30/20 02:44 Dose: 650 mg Documented by: Aspirin (Aspirin 81 Mg Ectab) 81 mg PO MoWeFr@0900 [facility] Stop: 07/26/20 08:59 Last Admin: 06/28/20 08:24 Dose: 81 mg Documented by: Calcium Carbonate (Calcium Carbonate 1250mg Tab) 1,250 mg PO DAILY NO Stop: 07/26/20 08:59 Last Admin: 06/30/20 08:26 Dose: 1,250 mg Documented by: Dextrose (Dextrose 50% 50 Ml Syringe) 25 - 50 ml IV UD PRN; Protocol PRN Reason: Hypoglycemia Protocol Stop: 07/26/20 02:44 Docusate Sodium (Docusate Sodium 100 Mg Cap) 100 mg PO QPM NO Stop: 07/26/20 20:59 Last Admin: 06/30/20 20:42 Dose: 100 mg Documented by: Ferrous Sulfate (Ferrous Sulfate 325 Mg Tab) 325 mg PO QAM NO Stop: 07/26/20 08:59 Last Admin: 06/30/20 08:24 Dose: 325 mg Documented by: Fluticasone Propionate (Fluticasone Propionate Na Spr 16 Gm Btl) 2 sprays NA HS PRN PRN Reason: Nasal Congestion Stop: 07/26/20 01:02 Glucagon (Glucagon For Inj 1 Mg Vial) 1 mg IM UD PRN; Protocol PRN Reason: Hypoglycemia Protocol Stop: 07/26/20 02:44 Glucose (Glucose 40% Gel 15 Gm Tube) 15 - 30 gm PO UD PRN; Protocol PRN Reason: Hypoglycemia Protocol Stop: 07/26/20 02:44 Glucose (Glucose 10 Tabs/Tube) 4 - 8 tabs PO UD PRN; Protocol PRN Reason: Hypoglycemia Protocol Stop: 07/26/20 02:44 Ceftriaxone Sodium 2,000 mg/ (Dextrose) 70 mls @ 140 mls/hr IV Q24H [facility] Stop: 07/12/20 15:59 Last Infusion: 06/30/20 16:25 Dose: Infused Documented by: Insulin Aspart (Insulin Aspart 100 Units/Ml 3 Ml Pen) 0 units SC ACHS [facility] Stop: 07/26/20 02:44 Last Admin: 06/30/20 20:37 Dose: 4 units Documented by: Insulin Glargine (Insulin Glargine Solostar 100 Units/Ml 3 Ml Pen) 5 units SC BID [facility] Stop: 07/26/20 02:44 Last Admin: 06/30/20 20:37 Dose: 5 units Documented by: Levothyroxine Sodium (Levothyroxine Sodium 100 Mcg Tablet) 100 mcg PO DAILYBB [facility] Stop: 07/26/20 06:29 Last Admin: 06/30/20 06:29 Dose: 100 mcg Documented by: Lisinopril (Lisinopril 10 Mg Tab) 10 mg PO DAILY [facility] Stop: 07/26/20 08:59 Last Admin: 06/30/20 08:27 Dose: 10 mg Documented by: Miscellaneous (Carbohydrates For Hypoglycemia ) 15 - 30 gm PO UD PRN PRN Reason: Hypoglycemia Treatment Stop: 07/26/20 02:44 Nitroglycerin (Nitroglycerin Sl 0.4 Mg/Tab Tab) 0.4 mg SL UD PRN PRN Reason: Chest Pain Stop: 07/26/20 01:02 Ondansetron HCl (Ondansetron Inj 2 Mg/Ml 2 Ml Vial) 4 mg IV Q6H PRN PRN Reason: Nausea Stop: 07/26/20 01:02 Rosuvastatin Calcium (Rosuvastatin Calcium 10 Mg Tab) 10 mg PO [facility] Stop: 07/26/20 20:59 Last Admin: 06/30/20 20:38 Dose: 10 mg Documented by: Saccharomyces Boulardii (Saccharomyces Boulardii 250 Mg Cap) 250 mg PO DAILY [facility] Stop: 07/27/20 19:29 Last Admin: 06/30/20 08:24 Dose: 250 mg Documented by: Tamsulosin HCl (Tamsulosin Hcl 0.4 Mg Cap) 0.4 mg PO HS [facility] Stop: 07/26/20 20:59 Last Admin: 06/30/20 20:38 Dose: 0.4 mg Documented by: Tizanidine HCl (Tizanidine Hcl 4 Mg Tablet) 4 mg PO Q8H PRN PRN Reason: Muscle Pain Stop: 07/26/20 01:02 Verapamil HCl (Verapamil Hcl 180 Mg Tabcr) 180 mg PO QAM [facility] Stop: 07/26/20 08:59 Last Admin: 06/30/20 08:24 Dose: 180 mg Documented by: Vitamin D (Cholecalciferol 1,000 Units 25 Mcg Tab) 2,000 units PO QAM [facility] Stop: 07/26/20 08:59 Last Admin: 06/30/20 08:26 Dose: 2,000 units Documented by: Warfarin Sodium (Warfarin Sod 2 Mg Tab) 2 mg PO SuTuWeThFrSa@1600 [facility] Stop: 07/26/20 15:59 Last Admin: 06/30/20 16:10 Dose: 2 mg Documented by: Warfarin Sodium (Warfarin Sod 4 Mg Tab) 4 mg PO Mo@1600 [facility] Stop: 07/31/20 15:59 Zinc Sulfate (Zinc Sulfate 220 Mg Capsule) 220 mg PO QDL [facility] Stop: 07/26/20 11:29 Last Admin: 06/30/20 11:50 Dose: 220 mg Documented by:
[2020-07-01] MEDS: LEVOTHYROXINE SODIUM 100 MCG TABLET PO SCH (06:24)
[2020-07-01 08:09] LABS: INR 2.4 (0.9-1.1)
[2020-07-01] MEDS: lisinopril 10 MG TAB PO SCH (08:52)
[2020-07-01] MEDS: CHOLECALCIFEROL 1,000 UNITS 25 MCG TAB PO SCH (08:52)
[2020-07-01] MEDS: ASPIRIN 81 MG ECTAB PO SCH (08:53)
[2020-07-01] MEDS: INSULIN GLARGINE SOLOSTAR 100 UNITS/ML 3 ML PEN SC SCH ×2 (08:53→21:27)
[2020-07-01] MEDS: FERROUS SULFATE 325 MG TAB PO SCH (08:53)
[2020-07-01] MEDS: VERAPAMIL HCL 180 MG TABCR PO SCH (08:53)
[2020-07-01] MEDS: SACCHAROMYCES BOULARDII 250 MG CAP PO SCH (08:53)
[2020-07-01] MEDS: CIPROFLOXACIN 500 MG TAB PO SCH ×2 (08:53→21:25)
[2020-07-01] MEDS: CALCIUM CARBONATE 1250MG TAB PO SCH (08:53)
[2020-07-01] MEDS: INSULIN ASPART 100 UNITS/ML 3 ML PEN SC SCH ×4 (08:54→21:27)
[2020-07-01] MEDS: ACETAMINOPHEN 325 MG TAB PO PRN ×2 (11:50→23:24)
[2020-07-01] MEDS: ZINC SULFATE 220 MG CAPSULE PO SCH (12:22)
[2020-07-01] MEDS: WARFARIN SOD 4 MG TAB PO SCH (16:21)
[2020-07-01] MEDS: TAMSULOSIN HCL 0.4 MG CAP PO SCH (21:25)
[2020-07-01] MEDS: ROSUVASTATIN CALCIUM 10 MG TAB PO SCH (21:25)
[2020-07-01] MEDS: DOCUSATE SODIUM 100 MG CAP PO SCH (21:25)
--- NOTE | 2020-07-01 23:17 | Hospitalist Progress Note ---
Date of Service July 01, 2020 Assessment & Plan (1) Gram-negative bacteremia: (2) Sepsis: (3) Acute UTI: This is an 85-year-old female who presents with fall at home, and found to be septic, with non-ST elevation myocardial infarction. Sepsis. Meets criteria for sepsis with leukocytosis, tachycardia, elevated lactic acid, and urinary tract infection. IV fluids. Zosyn was started in the ER, which was continued. Patient also received vancomycin. Vancomycin was discontinued after blood cultures positive for gram-negative bacteria. Follow the cultures. Follow the repeat lactic acids. Closely monitor in the tele floor. Repeat lactic acid down to 1.0 (initially 3.5 and 3.8) WBC 22K on admission, now down to 8.5K (normalized) Blood cultx 06/25 positive for E. coli x2 Urine cltx positive for E. coli Abx switched to ceftriaxone on 06/28 Pt afebrile since 06/28 Switch to PO Ciprofloxacin 07/01 Fall mostly from above. CT head shows left parieto-occipital contusion.PT/OT when stable. (4) Elevated troponin: Likely type II CA in setting of acute sepsis. She denies recent or recurrent anginal like symptoms. Currently symptom free. Mild nonspecific ST/ T wave abnormality noted on EKG, no acute changes. 2D echo obtained and cardiology consulted Continue current cardiac medications (5) Paroxysmal A-fib: Atrial fibrillation, continue verapamil withholding parameters, and continue Coumadin. We will follow the PT/INR. Patient developed A. fib with RVR on June 27 pm. At this time she was also retaining urine, bladder scan about 700 cc. She was catheterized, and received small dose of IV metoprolol, and converted back to normal sinus rhythm. INR subtherapeutic on admission, now therapeutic Anemia Hgb 6.9 on 10 AM, likely dilutional from IVF no signs of acute bleed pt at this time denies any symptoms, such as chest pain, shortness of breath, dizziness/lightheadedness at this time pt declines blood transfusion and prefers to be monitored only Current Hgb 7.2 History of hypertension. Continue verapamil, withholding parameters. Hold lisinopril for now. Monitor blood pressure. CRISPIN on CKD stage IV. Baseline creatinine around 1.5 to 1.7, on admission creatinine of 1.9. Received IV fluids. Cr normalized to 1.6 on 06/27 History of diabetes. Hold glipizide. Blood sugars were running high on admission. We will place on Lantus 5 units b.i.d. and insulin sliding scale and follow the blood sugars closely. Hypothyroidism. Continue Synthroid. Hyperlipidemia. Continue statin. History of subarachnoid bleed. History of methicillin-resistant Staphylococcus aureus infection. History of a mild episode of depression. DVT prophylaxis, on Coumadin. INR therapeutic Admission and Anticipated Discharge Date Admission Date: June 25, 2020 Subjective No acute events overnight. Pt is lying in bed, comfortable. Denies any fever, chills, chest pain, shortness of breath, abd. pain, nausea, vomiting. Diarrhea has improved. Last time febrile on 06/27 PM. Review of Systems Review of Systems: All systems reviewed & are unremarkable except as noted in HPI & below Constitutional: no fever and no chills Respiratory: no cough and no dyspnea Cardiovascular: no chest pain and no palpitations Gastrointestinal: no abdominal pain, no nausea and no vomiting Physical Exam Physical Exam: GENERAL: Elderly and frail female, not in acute distress HEENT: PERRL, EOMI, No pallor, no icterus. Oral mucosa moist. NECK: No JVD, no neck masses. CARDIOVASCULAR: S1, S2 heard. RRR No murmur, no gallop. RESPIRATORY SYSTEM: Normal AP diameter. No accessory muscle use. No wheezing, no crackles. ABDOMEN: Soft, bowel sounds present, nontender. No distention. : Velásquez catheter placed, drains yellow urine NEURO: Alert oriented answering questions appropriately, cranial nerves II-XII grossly intact, no facial droop, speech clear. Moves extremities spontaneously. Power 4/5 to 5/5 in all extremities. EXTREMITIES: No edema, no erythema. SKIN: no rashes or lesions noted Results & Data Results & Data ([facility]) Vital Signs (Past 12 Hours) Vital Signs Temp Pulse Resp BP Pulse Ox 07/01/20 16:02 36.6 C 76 16 103/53 L 96 Medications Administered Current Inpatient Medications Acetaminophen (Acetaminophen 325 Mg Tab) 650 mg PO Q4H PRN PRN Reason: Pain or Fever Stop: 07/26/20 01:02 Last Admin: 07/01/20 11:50 Dose: 650 mg Documented by: Aspirin (Aspirin 81 Mg Ectab) 81 mg PO MoWeFr@0900 [facility] Stop: 07/26/20 08:59 Last Admin: 07/01/20 08:53 Dose: 81 mg Documented by: Calcium Carbonate (Calcium Carbonate 1250mg Tab) 1,250 mg PO DAILY NO Stop: 07/26/20 08:59 Last Admin: 07/01/20 08:53 Dose: 1,250 mg Documented by: Ciprofloxacin (Ciprofloxacin 500 Mg Tab) 500 mg PO BID NO Stop: 07/15/20 08:59 Last Admin: 07/01/20 21:25 Dose: 500 mg Documented by: Dextrose (Dextrose 50% 50 Ml Syringe) 25 - 50 ml IV UD PRN; Protocol PRN Reason: Hypoglycemia Protocol Stop: 07/26/20 02:44 Docusate Sodium (Docusate Sodium 100 Mg Cap) 100 mg PO QPM [facility] Stop: 07/26/20 20:59 Last Admin: 07/01/20 21:25 Dose: Not Given Documented by: Ferrous Sulfate (Ferrous Sulfate 325 Mg Tab) 325 mg PO QAM [facility] Stop: 07/26/20 08:59 Last Admin: 07/01/20 08:53 Dose: 325 mg Documented by: Fluticasone Propionate (Fluticasone Propionate Na Spr 16 Gm Btl) 2 sprays NA HS PRN PRN Reason: Nasal Congestion Stop: 07/26/20 01:02 Glucagon (Glucagon For Inj 1 Mg Vial) 1 mg IM UD PRN; Protocol PRN Reason: Hypoglycemia Protocol Stop: 07/26/20 02:44 Glucose (Glucose 40% Gel 15 Gm Tube) 15 - 30 gm PO UD PRN; Protocol PRN Reason: Hypoglycemia Protocol Stop: 07/26/20 02:44 Glucose (Glucose 10 Tabs/Tube) 4 - 8 tabs PO UD PRN; Protocol PRN Reason: Hypoglycemia Protocol Stop: 07/26/20 02:44 Insulin Aspart (Insulin Aspart 100 Units/Ml 3 Ml Pen) 0 units SC ACHS [facility] Stop: 07/26/20 02:44 Last Admin: 07/01/20 21:27 Dose: 3 units Documented by: Insulin Glargine (Insulin Glargine Solostar 100 Units/Ml 3 Ml Pen) 5 units SC BID [facility] Stop: 07/26/20 02:44 Last Admin: 07/01/20 21:27 Dose: 5 units Documented by: Levothyroxine Sodium (Levothyroxine Sodium 100 Mcg Tablet) 100 mcg PO DAILYBB [facility] Stop: 07/26/20 06:29 Last Admin: 07/01/20 06:24 Dose: 100 mcg Documented by: Lisinopril (Lisinopril 10 Mg Tab) 10 mg PO DAILY [facility] Stop: 07/26/20 08:59 Last Admin: 07/01/20 08:52 Dose: 10 mg Documented by: Miscellaneous (Carbohydrates For Hypoglycemia ) 15 - 30 gm PO UD PRN PRN Reason: Hypoglycemia Treatment Stop: 07/26/20 02:44 Nitroglycerin (Nitroglycerin Sl 0.4 Mg/Tab Tab) 0.4 mg SL UD PRN PRN Reason: Chest Pain Stop: 07/26/20 01:02 Ondansetron HCl (Ondansetron Inj 2 Mg/Ml 2 Ml Vial) 4 mg IV Q6H PRN PRN Reason: Nausea Stop: 07/26/20 01:02 Rosuvastatin Calcium (Rosuvastatin Calcium 10 Mg Tab) 10 mg PO [facility] Stop: 07/26/20 20:59 Last Admin: 07/01/20 21:25 Dose: 10 mg Documented by: Saccharomyces Boulardii (Saccharomyces Boulardii 250 Mg Cap) 250 mg PO DAILY [facility] Stop: 07/27/20 19:29 Last Admin: 07/01/20 08:53 Dose: 250 mg Documented by: Tamsulosin HCl (Tamsulosin Hcl 0.4 Mg Cap) 0.4 mg PO [facility] Stop: 07/26/20 20:59 Last Admin: 07/01/20 21:25 Dose: 0.4 mg Documented by: Tizanidine HCl (Tizanidine Hcl 4 Mg Tablet) 4 mg PO Q8H PRN PRN Reason: Muscle Pain Stop: 07/26/20 01:02 Verapamil HCl (Verapamil Hcl 180 Mg Tabcr) [facility] Stop: 07/26/20 08:59 Last Admin: 07/01/20 08:53 Dose: 180 mg Documented by: Vitamin D (Cholecalciferol 1,000 Units 25 Mcg Tab) 2,000 units PO QAM [facility] Stop: 07/26/20 08:59 Last Admin: 07/01/20 08:52 Dose: 2,000 units Documented by: Warfarin Sodium (Warfarin Sod 2 Mg Tab) 2 mg PO SuTuWeThFrSa@1600 [facility] Stop: 07/26/20 15:59 Last Admin: 06/30/20 16:10 Dose: 2 mg Documented by: Warfarin Sodium (Warfarin Sod 4 Mg Tab) 4 mg PO Mo@1599 [facility] Stop: 07/31/20 15:59 Last Admin: 07/01/20 16:21 Dose: 4 mg Documented by: Zinc Sulfate (Zinc Sulfate 220 Mg Capsule) 220 mg PO QDL [facility] Stop: 07/26/20 11:29 Last Admin: 07/01/20 12:22 Dose: 220 mg Documented by:
[2020-07-02] MEDS ORDERED: NORMOSOL-R 1,000 ML IV ONE (01:35)
[2020-07-02 06:16] LABS: Basophils # (auto) 0.01 K/uL (0-0.2); Basophils % (auto) 0.1 %; Eosinophils # (auto) 0.29 K/uL (0-0.5); Hemoglobin 7.3 g/dL (12.0-16.0); Immature Granulocytes # (auto) 0.13 K/uL (0.00-0.02); Immature Granulocytes % (auto) 1.3 %; Lymphocytes # (auto) 2.12 K/uL (1.2-3.4); Lymphocytes % (auto) 21.9 %; Mean Corpuscular Hgb Conc 31.7 g/dL (32-36); Mean Corpuscular Volume 78.8 fL (80-100); Mean Platelet Volume 9.6 fL (7.4-10.4); Monocytes # (auto) 0.98 K/uL (0.11-0.59); Monocytes % (auto) 10.1 %; Neutrophils # (auto) 6.17 K/uL (1.4-6.5); Neutrophils % (auto) 63.6 %; Platelet Count 249 K/uL (130-400); RDW Coefficient of Variation 15.7 % (11.5-14.5); RDW Standard Deviation 45.6 fL (36.4-46.3); Red Blood Count 2.92 M/uL (4.2-5.4)
[2020-07-02 06:26] LABS: INR 2.6 (0.9-1.1); Prothrombin Time 25.6 Seconds (9.0-12.0)
[2020-07-02] MEDS: LEVOTHYROXINE SODIUM 100 MCG TABLET PO SCH (06:41)
[2020-07-02 06:42] LABS: RBC Morphology Unremarkable; Toxic Granulation Occasional
[2020-07-02 06:43] LABS: BUN Creatinine Ratio 20.3 (10-20); Calcium 8.1 mg/dl (8.5-10.1); Creatinine Clr Calc Pharmacy 30.6 ml/min; Est GFR (African American) 52.1; Est GFR (Non-African American) 44.9; Potassium 4.1 mmol/L (3.5-5.1)
--- NOTE | 2020-07-02 07:46 | Ultrasound Report ---
LEFT LOWER EXTREMITY VENOUS DOPPLER HISTORY: Left leg swelling COMPARISON STUDY: None. FINDINGS: There is normal compressibility, flow, and augmentation within the left lower extremity celestino p venous system. Complex left popliteal cyst measuring 8.2 x 3.9 x 1.4 cm. IMPRESSION: No DVT within the left lower extremity. An 8.2 x 3.9 x 1.4 cm complex popliteal cyst. ACT 112: Negative or not required by law. Electronically signed by: Donato Duval M.D. 07/02/2020 7:44 AM
--- NOTE | 2020-07-02 08:11 | Hospitalist Progress Note ---
Date of Service July 02, 2020 Assessment & Plan (1) Gram-negative bacteremia: (2) Sepsis: (3) Acute UTI: This is an 85-year-old female who presents with fall at home, and found to be septic, with non-ST elevation myocardial infarction. Sepsis. Meets criteria for sepsis with leukocytosis, tachycardia, elevated lactic acid, and urinary tract infection. IV fluids. Zosyn was started in the ER, which was continued. Patient also received vancomycin. Vancomycin was discontinued after blood cultures positive for gram-negative bacteria. Follow the cultures. Follow the repeat lactic acids. Closely monitor in the tele floor. Repeat lactic acid down to 1.0 (initially 3.5 and 3.8) WBC 22K on admission, now down to 8.5K (normalized) Blood cultx 06/25 positive for E. coli x2 Urine cltx positive for E. coli Abx switched to ceftriaxone on 06/28 Pt afebrile since 06/28 Switched to PO Ciprofloxacin 07/01 Pt became febrile again at night after switching to PO Cipro, nursing staff concerned about LLE edema and so doppler was ordered by lelia, Doppler - negative. Pt is on coumadin and now with therapeutic INR however INR was subtherapeutic on admission (she was provided with subc heparin at that time) Velásquez catheter was removed overnight Temp elevated again in the afternoon (07/02) and also pt found to retain again about 700cc of urine, pt was straight cathed Urine cltx, blood cltx - ordered, Renal US ordered to eval for hydronephrosos/ poss. renal abscess, pt switched back to IV ceftriaxone. [employer] consult placed. Fall mostly from above. CT head shows left parieto-occipital contusion.PT/OT when stable. (4) Elevated troponin: Likely type II [place] in setting of acute sepsis. She denies recent or recurrent anginal like symptoms. Currently symptom free. Mild nonspecific ST/ T wave abnormality noted on EKG, no acute changes. 2D echo obtained and cardiology consulted Continue current cardiac medications (5) Paroxysmal A-fib: Atrial fibrillation, continue verapamil withholding parameters, and continue Coumadin. We will follow the PT/INR. Patient developed A. fib with RVR on June 27 pm. At this time she was also retaining urine, bladder scan about 700 cc. She was catheterized, and received small dose of IV metoprolol, and converted back to normal sinus rhythm. INR subtherapeutic on admission, now therapeutic Anemia Hgb 6.9 on 10 AM, likely dilutional from IVF no signs of acute bleed pt at this time denies any symptoms, such as chest pain, shortness of breath, dizziness/lightheadedness at this time pt declines blood transfusion and prefers to be monitored only Current Hgb 7.2 History of hypertension. Continue verapamil, withholding parameters. Hold lisinopril for now. Monitor blood pressure. CRISPIN on CKD stage IV. Baseline creatinine around 1.5 to 1.7, on admission creatinine of 1.9. Received IV fluids. Cr normalized to 1.6 on 06/27 History of diabetes. Hold glipizide. Blood sugars were running high on admission. We will place on Lantus 5 units b.i.d. and insulin sliding scale and follow the blood sugars closely. Hypothyroidism. Continue Synthroid. Hyperlipidemia. Continue statin. History of subarachnoid bleed. History of methicillin-resistant Staphylococcus aureus infection. History of a mild episode of depression. DVT prophylaxis, on Coumadin. INR therapeutic Admission and Anticipated Discharge Date Admission Date: June 25, 2020 Subjective Patient spiked fever again last night. She was otherwise afebrile since June 27June 28. There was left lower extremity edema noted by nursing staff, senior payroll administrator ordered Doppler, which is negative. Patient is on Coumadin currently with therapeutic INR, however history of subtherapeutic INR (pt was provided with subc hepatin at that time). Velásquez catheter was removed overnight. Patient was switched to PO ciprofloxacin yesterday. This PM temp. elevated again. Bladder scan - 700cc urine retention again, pt was straight cathed. Currently she is laying in bed in NAD. She says that temp. in her room was set up high and that's why she spiked fever. She currently denies any complaints, no fever, chills, abd. pain, flank pain, chest pain, shortness of breath. Review of Systems Review of Systems: All systems reviewed & are unremarkable except as noted in HPI & below Constitutional: no fever and no chills Respiratory: no cough and no dyspnea Cardiovascular: no chest pain and no palpitations Gastrointestinal: no abdominal pain, no nausea and no vomiting Genitourinary: no flank pain Urinary retention Physical Exam Physical Exam: GENERAL: Elderly and frail female, not in acute distress HEENT: PERRL, EOMI, No pallor, no icterus. Oral mucosa moist. NECK: No JVD, no neck masses. CARDIOVASCULAR: S1, S2 heard. RRR No murmur, no gallop. RESPIRATORY SYSTEM: Normal AP diameter. No accessory muscle use. No wheezing, no crackles. ABDOMEN: Soft, bowel sounds present, nontender. No distention. : Velásquez catheter placed, drains yellow urine NEURO: Alert oriented answering questions appropriately, cranial nerves II-XII grossly intact, no facial droop, speech clear. Moves extremities spontaneously. Power 4/5 to 5/5 in all extremities. EXTREMITIES: No edema, no erythema. SKIN: no rashes or lesions noted Results & Data Results & Data ([facility]) Vital Signs (Past 12 Hours) Vital Signs Temp Pulse Resp BP Pulse Ox 07/02/20 07:07 36.7 C 75 16 109/65 94 07/02/20 02:20 36.5 C 07/02/20 00:30 37.4 C 07/01/20 23:14 38.5 C H 07/01/20 23:11 38 C H 87 18 131/61 90
[2020-07-02] MEDS: FERROUS SULFATE 325 MG TAB PO SCH (09:48)
[2020-07-02] MEDS: lisinopril 10 MG TAB PO SCH (09:48)
[2020-07-02] MEDS: CALCIUM CARBONATE 1250MG TAB PO SCH (09:48)
[2020-07-02] MEDS: SACCHAROMYCES BOULARDII 250 MG CAP PO SCH (09:48)
[2020-07-02] MEDS: CHOLECALCIFEROL 1,000 UNITS 25 MCG TAB PO SCH (09:48)
[2020-07-02] MEDS: CIPROFLOXACIN 500 MG TAB PO SCH (09:49)
[2020-07-02] MEDS: VERAPAMIL HCL 180 MG TABCR PO SCH (09:52)
[2020-07-02] MEDS: INSULIN GLARGINE SOLOSTAR 100 UNITS/ML 3 ML PEN SC SCH ×2 (09:55→21:49)
[2020-07-02] MEDS: INSULIN ASPART 100 UNITS/ML 3 ML PEN SC SCH ×4 (09:56→21:48)
[2020-07-02] MEDS: ZINC SULFATE 220 MG CAPSULE PO SCH (13:18)
[2020-07-02] MEDS: ACETAMINOPHEN 325 MG TAB PO PRN (17:35)
[2020-07-02] MEDS: WARFARIN SOD 2 MG TAB PO SCH (17:35)
[2020-07-02] MEDS: cefTRIAXone SODIUM 2,000 MG in DEXTROSE 5% 50 ML IV SCH (18:19)
--- NOTE | 2020-07-02 20:17 | Ultrasound Report ---
RENAL ULTRASOUND CLINICAL HISTORY: r/o hydronephrosis, poss. renal abscess COMPARISON STUDY: CT of the abdomen and pelvis December 25, 2019. TECHNIQUE: Sonography of the kidneys and the urinary bladder was performed. FINDINGS: Right kidney measures 8.4 x 5.8 x 5 cm and the left kidney measures 8.4 x 5.7 x 5 cm. There is moderate bilateral renal cortical thinning. There is no hydronephrosis. No renal abscess is ident ified. A few left renal cysts measure up to 2.7 cm. There is a possible 6 mm left renal calculus. The re is trace right perinephric fluid. Mild bladder wall irregularity is noted. Neither ureteral jet wa s identified. IMPRESSION: 1. No hydronephrosis. No renal abscess identified. 2. Several left renal cysts. 3. Moderate bilateral renal cortical thinning. 4. Possible 6 mm left renal calculus. ACT 112: Negative or not required by law. Electronically signed by: Chad Mustafa M.D. 07/02/2020 8:16 PM
[2020-07-02] MEDS: DOCUSATE SODIUM 100 MG CAP PO SCH (21:41)
[2020-07-02] MEDS: TAMSULOSIN HCL 0.4 MG CAP PO SCH (21:43)
[2020-07-02] MEDS: ROSUVASTATIN CALCIUM 10 MG TAB PO SCH (21:43)
[2020-07-03] MEDS: ACETAMINOPHEN 325 MG TAB PO PRN ×2 (03:22→15:47)
[2020-07-03] MEDS: LEVOTHYROXINE SODIUM 100 MCG TABLET PO SCH (05:42)
[2020-07-03 07:44] LABS: INR 2.4 (0.9-1.1); Prothrombin Time 24.2 Seconds (9.0-12.0)
[2020-07-03] MEDS: cefTRIAXone SODIUM 2,000 MG in DEXTROSE 5% 50 ML IV SCH (08:59)
[2020-07-03] MEDS: SACCHAROMYCES BOULARDII 250 MG CAP PO SCH (09:00)
[2020-07-03] MEDS: FERROUS SULFATE 325 MG TAB PO SCH (09:00)
[2020-07-03] MEDS: CALCIUM CARBONATE 1250MG TAB PO SCH (09:00)
[2020-07-03] MEDS: ASPIRIN 81 MG ECTAB PO SCH (09:01)
[2020-07-03] MEDS: CHOLECALCIFEROL 1,000 UNITS 25 MCG TAB PO SCH (09:01)
[2020-07-03] MEDS: lisinopril 10 MG TAB PO SCH ×2 (09:01→09:33)
[2020-07-03] MEDS: VERAPAMIL HCL 180 MG TABCR PO SCH ×2 (09:02→09:33)
[2020-07-03] MEDS: INSULIN ASPART 100 UNITS/ML 3 ML PEN SC SCH ×4 (09:03→22:13)
[2020-07-03] MEDS: INSULIN GLARGINE SOLOSTAR 100 UNITS/ML 3 ML PEN SC SCH ×2 (09:03→22:23)
--- NOTE | 2020-07-03 11:21 | Hospitalist Progress Note ---
Date of Service July 03, 2020 Assessment & Plan (1) Gram-negative bacteremia: Secondary to UTI WBC 22K on admission, now down to 8.5K (normalized) Blood cultx 06/25 positive for E. coli x2 Urine cltx positive for E. coli Abx switched to ceftriaxone on 06/28 Pt afebrile since 06/28 Switched to PO Ciprofloxacin 07/01 And the patient is switched back to intravenous ceftriaxone as of 07/02/2020 Repeat blood cultures on of this month have been negative Repeat urine culture is pending [employer] ID has been consulted-awaiting input and recommendation (2) Sepsis: (3) Acute UTI: This is an 85-year-old female who presents with fall at home, and found to be septic, with non-ST elevation myocardial infarction. Sepsis. Meets criteria for sepsis with leukocytosis, tachycardia, elevated lactic acid, and urinary tract infection. IV fluids. Zosyn was started in the ER, which was continued. Patient also received vancomycin. Vancomycin was discontinued after blood cultures positive for gram-negative bacteria. Intravenous Zosyn was changed to intravenous ceftriaxone and subsequent antibiotic as above Temp elevated again in the afternoon (07/02) and also pt found to retain again about 700cc of urine, pt was straight cathed Urine cltx, blood cltx - ordered, Renal US ordered to eval for hydronephrosos/ poss. renal abscess, pt switched back to IV ceftriaxone. [facility] consult placed. Ultrasound did not show any hydronephrosis/abscess but he did show several left renal cyst and moderate bilateral renal cortical thinning 6 mm left renal calculus Fall mostly from above. CT head shows left parieto-occipital contusion.PT/OT when stable. (4) Elevated troponin: Likely type II [place] in setting of acute sepsis. She denies recent or recurrent anginal like symptoms. Currently symptom free. Mild nonspecific ST/ T wave abnormality noted on EKG, no acute changes. 2D echo obtained and cardiology consulted; mild concentric LV hypertrophy with EF of 55 to 60%, RV systolic function is normal, LA is mildly dilated, RA is normal, there is mild mitral regurgitation and grade 1 diastolic dysfunction Continue current cardiac medications (5) Paroxysmal A-fib: Atrial fibrillation, continue verapamil withholding parameters, and continue Coumadin. We will follow the PT/INR. Patient developed A. fib with RVR on October 8 pm. At this time she was also retaining urine, bladder scan about 700 cc. She was catheterized, and received small dose of IV metoprolol, and converted back to normal sinus rhythm. INR subtherapeutic on admission, INR is therapeutic now and is 2.4 as of07/03/2020 Anemia Hgb 6.9 on 10/9 AM, likely dilutional from IVF no signs of acute bleed pt at this time denies any symptoms, such as chest pain, shortness of breath, dizziness/lightheadedness at this time pt declines blood transfusion and prefers to be monitored only Current Hgb 7.2 Will check hemoglobin again today and if it is below 7 will give blood transfusion Hypertension Continue verapamil, withholding parameters. Hold lisinopril for now. Monitor blood pressure. CRISPIN on CKD stage IV. Baseline creatinine around 1.5 to 1.7, on admission creatinine of 1.9. Received IV fluids. Cr normalized to 1.6 on 06/27 History of diabetes. Hold glipizide. Blood sugars were running high on admission. We will place on Lantus 5 units b.i.d. and insulin sliding scale and follow the blood sugars closely. Hypothyroidism. Continue Synthroid. Hyperlipidemia. Continue statin. History of subarachnoid bleed. History of methicillin-resistant Staphylococcus aureus infection. History of a mild episode of depression. DVT prophylaxis, on Coumadin. INR therapeutic Admission and Anticipated Discharge Date Admission Date: June 25, 2020 Subjective 07/03/2020 The patient was seen and examined in medical floor She complains to have swelling of the left foot with some pain in the left ankle Denies any more fever and/or chills Still has urinary symptoms especially incontinence at times Review of Systems Review of Systems: All systems reviewed and are unremarkable except as noted below Genitourinary: + urinary hesitancy and + urinary incontinence; no dysuria Musculoskeletal: Minimal pain and swelling involving the left foot and left ankle Physical Exam Physical Exam: Lying in bed comfortably Constitutional: well developed and well nourished; no acute distress and not ill appearing Eyes: PERRL, conjunctivae normal, anicteric sclerae ENMT: external ear and nose normal, oropharynx normal Neck: trachea midline, no thyromegaly Respiratory: normal respiratory effort; no respiratory distress Auscultation: lungs clear to auscultation bilaterally Cardiovascular: Rate/Rhythm: regular rate and regular rhythm Heart Sounds: no murmur Gastrointestinal (Abdomen): Inspection/Auscultation: abdomen normal to inspection; + abnormal bowel sounds Percussion/Palpation: abdomen soft; abdomen nontender Musculoskeletal: Left ankle is swollen, foot is swollen, no acute arthritis suggestive of an infection/inflammation. Pain is secondary to osteoarthritis Neurologic: moves all extremities; no focal motor deficits Psychiatric: A+Ox3, euthymic affect Lymphatic: no cervical or axillary lymphadenopathy Results & Data Results & Data ([facility]) Vital Signs (Past 12 Hours) Vital Signs Temp Pulse Pulse Resp BP Pulse Ox 07/03/20 09:09 75 130/55 L 07/03/20 07:48 36.4 C L 73 16 100/49 L 95 07/03/20 04:12 36.9 C 07/03/20 03:23 37.3 C 07/02/20 23:19 36.4 C L 72 16 113/58 L 95 Medications Administered Current Inpatient Medications Acetaminophen (Acetaminophen 325 Mg Tab) 650 mg PO Q4H PRN PRN Reason: Pain or Fever Stop: 07/26/20 01:02 Last Admin: 07/03/20 03:22 Dose: 650 mg Documented by: Aspirin (Aspirin 81 Mg Ectab) 81 mg PO MoWeFr@0900 NO Stop: 07/26/20 08:59 Last Admin: 07/03/20 09:01 Dose: 81 mg Documented by: Calcium Carbonate (Calcium Carbonate 1250mg Tab) 1,250 mg PO DAILY NO Stop: 07/26/20 08:59 Last Admin: 07/03/20 09:00 Dose: 1,250 mg Documented by: Ciprofloxacin (Ciprofloxacin 500 Mg Tab) 500 mg PO BID NO Stop: 07/15/20 08:59 Last Admin: 07/02/20 09:49 Dose: 500 mg Documented by: Dextrose (Dextrose 50% 50 Ml Syringe) 25 - 50 ml IV UD PRN; Protocol PRN Reason: Hypoglycemia Protocol Stop: 07/26/20 02:44 Docusate Sodium (Docusate Sodium 100 Mg Cap) 100 mg PO QPM NO Stop: 07/26/20 20:59 Last Admin: 07/02/20 21:41 Dose: Not Given Documented by: Ferrous Sulfate (Ferrous Sulfate 325 Mg Tab) 325 mg PO QAM NO Stop: 07/26/20 08:59 Last Admin: 07/03/20 09:00 Dose: 325 mg Documented by: Fluticasone Propionate (Fluticasone Propionate Na Spr 16 Gm Btl) 2 sprays NA HS PRN PRN Reason: Nasal Congestion Stop: 07/26/20 01:02 Glucagon (Glucagon For Inj 1 Mg Vial) 1 mg IM UD PRN; Protocol PRN Reason: Hypoglycemia Protocol Stop: 07/26/20 02:44 Glucose (Glucose 40% Gel 15 Gm Tube) 15 - 30 gm PO UD PRN; Protocol PRN Reason: Hypoglycemia Protocol Stop: 07/26/20 02:44 Glucose (Glucose 10 Tabs/Tube) 4 - 8 tabs PO UD PRN; Protocol PRN Reason: Hypoglycemia Protocol Stop: 07/26/20 02:44 Ceftriaxone Sodium 2,000 mg/ (Dextrose) 70 mls @ 100 mls/hr IV DAILY [facility]; Protocol Stop: 07/16/20 17:59 Last Infusion: 07/03/20 09:44 Dose: Infused Documented by: Insulin Aspart (Insulin Aspart 100 Units/Ml 3 Ml Pen) 0 units SC ACHS NO Stop: 07/26/20 02:44 Last Admin: 07/03/20 09:03 Dose: 6 units Documented by: Insulin Glargine (Insulin Glargine Solostar 100 Units/Ml 3 Ml Pen) 5 units SC BID [facility] Stop: 07/26/20 02:44 Last Admin: 07/03/20 09:03 Dose: 5 units Documented by: Levothyroxine Sodium (Levothyroxine Sodium 100 Mcg Tablet) 100 mcg PO DAILYBB [facility] Stop: 07/26/20 06:29 Last Admin: 07/03/20 05:42 Dose: 100 mcg Documented by: Lisinopril (Lisinopril 10 Mg Tab) 10 mg PO DAILY [facility] Stop: 07/26/20 08:59 Last Admin: 07/03/20 09:33 Dose: 10 mg Documented by: Miscellaneous (Carbohydrates For Hypoglycemia ) 15 - 30 gm PO UD PRN PRN Reason: Hypoglycemia Treatment Stop: 07/26/20 02:44 Nitroglycerin (Nitroglycerin Sl 0.4 Mg/Tab Tab) 0.4 mg SL UD PRN PRN Reason: Chest Pain Stop: 07/26/20 01:02 Ondansetron HCl (Ondansetron Inj 2 Mg/Ml 2 Ml Vial) 4 mg IV Q6H PRN PRN Reason: Nausea Stop: 07/26/20 01:02 Rosuvastatin Calcium (Rosuvastatin Calcium 10 Mg Tab) 10 mg PO [facility] Stop: 07/26/20 20:59 Last Admin: 07/02/20 21:43 Dose: 10 mg Documented by: Saccharomyces Boulardii (Saccharomyces Boulardii 250 Mg Cap) 250 mg PO DAILY [facility] Stop: 07/27/20 19:29 Last Admin: 07/03/20 09:00 Dose: 250 mg Documented by: Tamsulosin HCl (Tamsulosin Hcl 0.4 Mg Cap) 0.4 mg PO [facility] Stop: 07/26/20 20:59 Last Admin: 07/02/20 21:43 Dose: 0.4 mg Documented by: Tizanidine HCl (Tizanidine Hcl 4 Mg Tablet) 4 mg PO Q8H PRN PRN Reason: Muscle Pain Stop: 07/26/20 01:02 Verapamil HCl (Verapamil Hcl 180 Mg Tabcr) 180 mg PO [facility] Stop: 07/26/20 08:59 Last Admin: 07/03/20 09:33 Dose: 180 mg Documented by: Vitamin D (Cholecalciferol 1,000 Units 25 Mcg Tab) 2,000 units PO QAM [facility] Stop: 07/26/20 08:59 Last Admin: 07/03/20 09:01 Dose: 2,000 units Documented by: Warfarin Sodium (Warfarin Sod 2 Mg Tab) 2 mg PO SuTuWeThFrSa@1600 [facility] Stop: 07/26/20 15:59 Last Admin: 07/02/20 17:35 Dose: 2 mg Documented by: Warfarin Sodium (Warfarin Sod 4 Mg Tab) 4 mg PO Mo@1600 [facility] Stop: 07/31/20 15:59 Last Admin: 07/01/20 16:21 Dose: 4 mg Documented by: Zinc Sulfate (Zinc Sulfate 220 Mg Capsule) 220 mg PO QDL [facility] Stop: 07/26/20 11:29 Last Admin: 07/02/20 13:18 Dose: 220 mg Documented by:
[2020-07-03 12:44] LABS: Hematocrit (blood only) 27.4 % (37-47); Hemoglobin 8.4 g/dL (12.0-16.0); Mean Corpuscular Hemoglobin 24.8 pg (25-34); Mean Corpuscular Hgb Conc 30.7 g/dL (32-36); Mean Corpuscular Volume 80.8 fL (80-100); Mean Platelet Volume 9.9 fL (7.4-10.4); Platelet Count 378 K/uL (130-400); RDW Coefficient of Variation 15.9 % (11.5-14.5); RDW Standard Deviation 47.2 fL (36.4-46.3); Red Blood Count 3.39 M/uL (4.2-5.4); White Blood Count 9.86 K/uL (4.8-10.8)
[2020-07-03] MEDS: ZINC SULFATE 220 MG CAPSULE PO SCH (13:04)
[2020-07-03 13:13] LABS: Basophils # (auto) 0.01 K/uL (0-0.2); Basophils % (auto) 0.1 %; Eosinophils # (auto) 0.45 K/uL (0-0.5); Eosinophils % (auto) 4.6 %; Immature Granulocytes # (auto) 0.14 K/uL (0.00-0.02); Immature Granulocytes % (auto) 1.4 %; Lymphocytes # (auto) 1.73 K/uL (1.2-3.4); Lymphocytes % (auto) 17.5 %; Monocytes # (auto) 0.66 K/uL (0.11-0.59); Monocytes % (auto) 6.7 %; Neutrophils # (auto) 6.87 K/uL (1.4-6.5); Neutrophils % (auto) 69.7 %
[2020-07-03] MEDS: WARFARIN SOD 2 MG TAB PO SCH (15:48)
[2020-07-03] MEDS: DOCUSATE SODIUM 100 MG CAP PO SCH (20:35)
[2020-07-03] MEDS: TAMSULOSIN HCL 0.4 MG CAP PO SCH (20:36)
[2020-07-03] MEDS: ROSUVASTATIN CALCIUM 10 MG TAB PO SCH (20:36)
[2020-07-03] MEDS ORDERED: INSULIN ASPART 100 UNITS/ML 3 ML PEN SC STA (22:08)
[2020-07-03] MEDS ORDERED: INSULIN GLARGINE SOLOSTAR 100 UNITS/ML 3 ML PEN SC STA (22:08)
[2020-07-03] MEDS: AMOXICILLIN 500 MG CAP PO SCH (22:12)
[2020-07-04] MEDS: LEVOTHYROXINE SODIUM 100 MCG TABLET PO SCH (05:39)
[2020-07-04 06:38] LABS: Creatinine Clr Calc Pharmacy 28.1 ml/min; Est GFR (African American) 46.9; Est GFR (Non-African American) 40.5
[2020-07-04] MEDS ORDERED: INSULIN GLARGINE SOLOSTAR 100 UNITS/ML 3 ML PEN SC SCH (09:00)
[2020-07-04] MEDS: AMOXICILLIN 500 MG CAP PO SCH ×3 (09:03→21:22)
[2020-07-04] MEDS: CALCIUM CARBONATE 1250MG TAB PO SCH (09:04)
[2020-07-04] MEDS: FERROUS SULFATE 325 MG TAB PO SCH (09:04)
[2020-07-04] MEDS: SACCHAROMYCES BOULARDII 250 MG CAP PO SCH (09:05)
[2020-07-04] MEDS: CHOLECALCIFEROL 1,000 UNITS 25 MCG TAB PO SCH (09:06)
[2020-07-04] MEDS: INSULIN ASPART 100 UNITS/ML 3 ML PEN SC SCH ×4 (09:07→21:23)
[2020-07-04] MEDS: INSULIN GLARGINE SOLOSTAR 100 UNITS/ML 3 ML PEN SC SCH ×2 (09:07→21:23)
[2020-07-04] MEDS ORDERED: LOPERAMIDE HCL 2 MG CAP PO PRN (12:00)
[2020-07-04] MEDS: ZINC SULFATE 220 MG CAPSULE PO SCH (13:01)
[2020-07-04] MEDS: ACETAMINOPHEN 325 MG TAB PO PRN ×3 (13:18→23:52)
[2020-07-04] MEDS: WARFARIN SOD 2 MG TAB PO SCH (15:37)
[2020-07-04] MEDS: TAMSULOSIN HCL 0.4 MG CAP PO SCH (21:22)
[2020-07-04] MEDS: ROSUVASTATIN CALCIUM 10 MG TAB PO SCH (21:22)
[2020-07-04] MEDS: DOCUSATE SODIUM 100 MG CAP PO SCH (21:23)
[2020-07-05 00:50] LABS: Basophils # (auto) 0.02 K/uL (0-0.2); Basophils % (auto) 0.2 %; Eosinophils # (auto) 0.18 K/uL (0-0.5); Eosinophils % (auto) 2.1 %; Hematocrit (blood only) 24.3 % (37-47); Hemoglobin 7.8 g/dL (12.0-16.0); Immature Granulocytes # (auto) 0.16 K/uL (0.00-0.02); Immature Granulocytes % (auto) 1.9 %; Lymphocytes # (auto) 0.86 K/uL (1.2-3.4); Lymphocytes % (auto) 10.3 %; Mean Corpuscular Hemoglobin 24.8 pg (25-34); Mean Corpuscular Hgb Conc 32.1 g/dL (32-36); Mean Corpuscular Volume 77.4 fL (80-100); Mean Platelet Volume 9.4 fL (7.4-10.4); Monocytes # (auto) 0.68 K/uL (0.11-0.59); Monocytes % (auto) 8.1 %; Neutrophils # (auto) 6.48 K/uL (1.4-6.5); Neutrophils % (auto) 77.4 %; Platelet Count 288 K/uL (130-400); RDW Coefficient of Variation 15.6 % (11.5-14.5); RDW Standard Deviation 44.4 fL (36.4-46.3); Red Blood Count 3.14 M/uL (4.2-5.4); White Blood Count 8.38 K/uL (4.8-10.8)
[2020-07-05 00:55] LABS: Base Excess ABG 2.1 mEq/L (-9-1.8); HCO3 ABG 25 mmol/L (19-24); Oxygen Saturation ABG 90.4 % (90-95); PCO2 ABG 31 mmHg (35-46); PO2 ABG 60 mmHg (80-95)
[2020-07-05 01:03] LABS: INR 2.5 (0.9-1.1); Prothrombin Time 25.2 Seconds (9.0-12.0)
[2020-07-05 01:05] LABS: Allen Test POS (Pos)
[2020-07-05 01:07] LABS: pH ABG 7.52 (7.35-7.45)
[2020-07-05 01:13] LABS: Albumin Level 2.2 gm/dl (3.4-5.0); BUN Creatinine Ratio 18.7 (10-20); Calcium 8.5 mg/dl (8.5-10.1); Creatinine Clr Calc Pharmacy 26.2 ml/min; Est GFR (Non-African American) 37.1; Potassium 4.5 mmol/L (3.5-5.1)
[2020-07-05 01:14] LABS: RBC Morphology Unremarkable
[2020-07-05 01:18] LABS: Albumin Globulin Ratio 0.6 (0.9-2); Bilirubin,Total 0.3 mg/dl (0.2-1); Globulin 3.5 gm/dl (2.5-4.0); Total Protein 5.7 gm/dl (6.4-8.2); Troponin I 0.03 ng/ml (0-0.045)
[2020-07-05] MEDS: SODIUM CHLORIDE 0.9% 1000ML 1,000 ML IV SCH ×3 (01:24→22:52)
[2020-07-05 06:27] LABS: Basophils # (auto) 0.03 K/uL (0-0.2); Basophils % (auto) 0.5 %; Eosinophils % (auto) 1.6 %; Hematocrit (blood only) 22.9 % (37-47); Hemoglobin 7.1 g/dL (12.0-16.0); Immature Granulocytes % (auto) 3.1 %; Lymphocytes # (auto) 0.84 K/uL (1.2-3.4); Lymphocytes % (auto) 13.1 %; Mean Corpuscular Hemoglobin 24.7 pg (25-34); Mean Corpuscular Volume 79.5 fL (80-100); Mean Platelet Volume 9.4 fL (7.4-10.4); Monocytes # (auto) 0.64 K/uL (0.11-0.59); Neutrophils # (auto) 4.61 K/uL (1.4-6.5); Neutrophils % (auto) 71.7 %; Platelet Count 283 K/uL (130-400); RDW Coefficient of Variation 15.8 % (11.5-14.5); RDW Standard Deviation 46.5 fL (36.4-46.3); Red Blood Count 2.88 M/uL (4.2-5.4); White Blood Count 6.42 K/uL (4.8-10.8)
[2020-07-05] MEDS: LEVOTHYROXINE SODIUM 100 MCG TABLET PO SCH (06:31)
[2020-07-05 06:53] LABS: Microcytosis Present
[2020-07-05 07:03] LABS: Creatinine Clr Calc Pharmacy 25.6 ml/min; Est GFR (African American) 41.8; Est GFR (Non-African American) 36.1
--- NOTE | 2020-07-05 07:26 | XRay Report ---
XR chest 1V portable HISTORY: 85 years-old Female hypoxia? Acute hypoxia COMPARISON: Chest radiograph 06/25/2020 TECHNIQUE: Portable AP view of the chest FINDINGS: Cardiomediastinal and hilar silhouettes are unchanged. Trace pleural effusions with mild linear subse gmental bibasilar densities. No pneumothorax, overt pulmonary edema or lobar airspace consolidation. Calcified plaque the thoracic aortic arch. Degenerative changes of the shoulders and spine. IMPRESSION: Trace pleural effusions with mild linear subsegmental bibasilar atelectasis. ACT 112: Negative or not required by law. The above report was generated using voice recognition software. It may contain grammatical, syntax o r spelling errors. Electronically signed by: Bill Hou M.D. 07/05/2020 7:24 AM
[2020-07-05] MEDS: VERAPAMIL HCL 180 MG TABCR PO SCH (08:49)
[2020-07-05] MEDS: lisinopril 10 MG TAB PO SCH (08:49)
[2020-07-05] MEDS: INSULIN ASPART 100 UNITS/ML 3 ML PEN SC SCH ×4 (08:50→21:14)
[2020-07-05] MEDS: INSULIN GLARGINE SOLOSTAR 100 UNITS/ML 3 ML PEN SC SCH ×2 (08:50→21:14)
[2020-07-05] MEDS: MICONAZOLE NITRATE POWDER 43 GM EXT PRN (08:52)
[2020-07-05] MEDS: SACCHAROMYCES BOULARDII 250 MG CAP PO SCH (08:56)
[2020-07-05] MEDS: FERROUS SULFATE 325 MG TAB PO SCH (08:56)
[2020-07-05] MEDS: CALCIUM CARBONATE 1250MG TAB PO SCH (08:57)
[2020-07-05] MEDS: ASPIRIN 81 MG ECTAB PO SCH (08:57)
[2020-07-05] MEDS: CHOLECALCIFEROL 1,000 UNITS 25 MCG TAB PO SCH (08:58)
[2020-07-05] MEDS: AMOXICILLIN 500 MG CAP PO SCH (08:58)
[2020-07-05] MEDS: CIPROFLOXACIN / D5W 200 MG/100 ML BAG IV SCH (13:35)
[2020-07-05] MEDS: ZINC SULFATE 220 MG CAPSULE PO SCH (13:35)
[2020-07-05] MEDS ORDERED: SODIUM CHLORIDE 0.9% 250 ML IV PRN (15:13)
[2020-07-05] MEDS ORDERED: FUROSEMIDE 40 MG in SYRINGE 0 ML IV ONE (15:30)
[2020-07-05] MEDS: WARFARIN SOD 2 MG TAB PO SCH (16:20)
--- NOTE | 2020-07-05 18:04 | Hospitalist Progress Note ---
Date of Service This is a late entry for 07/04/2020 July 05, 2020 Assessment & Plan (1) Gram-negative bacteremia: Secondary to UTI WBC 22K on admission, now down to 8.5K (normalized) Blood cultx 06/25 positive for E. coli x2 Urine cltx positive for E. coli Abx switched to ceftriaxone on 06/28 Pt afebrile since 06/28 Switched to PO Ciprofloxacin 07/01 And the patient is switched back to intravenous ceftriaxone as of 07/02/2020 Repeat blood cultures on of this month have been negative Repeat urine culture is pending [facility]-awaiting input and recommendation Has had fever last night Will not be transferred out of hospital today (2) Sepsis: (3) Acute UTI: This is an 85-year-old female who presents with fall at home, and found to be septic, with non-ST elevation myocardial infarction. Sepsis. Meets criteria for sepsis with leukocytosis, tachycardia, elevated lactic acid, and urinary tract infection. IV fluids. Zosyn was started in the ER, which was continued. Patient also received vancomycin. Vancomycin was discontinued after blood cultures positive for gram-negative bacteria. Intravenous Zosyn was changed to intravenous ceftriaxone and subsequent antibiotic as above Temp elevated again in the afternoon (07/02) and also pt found to retain again about 700cc of urine, pt was straight cathed Urine cltx, blood cltx - ordered, Renal US ordered to eval for hydronephrosos/ poss. renal abscess, pt switched back to IV ceftriaxone. [employer] consult placed. Ultrasound did not show any hydronephrosis/abscess but he did show several left renal cyst and moderate bilateral renal cortical thinning 6 mm left renal calculus Denies any significant symptoms Fall mostly from above. CT head shows left parieto-occipital contusion.PT/OT when stable. (4) Elevated troponin: Likely type II [place] in setting of acute sepsis. She denies recent or recurrent anginal like symptoms. Currently symptom free. Mild nonspecific ST/ T wave abnormality noted on EKG, no acute changes. 2D echo obtained and cardiology consulted; mild concentric LV hypertrophy with EF of 55 to 60%, RV systolic function is normal, LA is mildly dilated, RA is normal, there is mild mitral regurgitation and grade 1 diastolic dysfunction Continue current cardiac medications (5) Paroxysmal A-fib: Atrial fibrillation, continue verapamil withholding parameters, and continue Coumadin. We will follow the PT/INR. Patient developed A. fib with RVR on June 27 pm. At this time she was also retaining urine, bladder scan about 700 cc. She was catheterized, and received small dose of IV metoprolol, and converted back to normal sinus rhythm. INR subtherapeutic on admission, INR is therapeutic now and is 2.4 as of07/03/2020 Heart rate is controlled Anemia Hgb 6.9 on 10 AM, likely dilutional from IVF no signs of acute bleed pt at this time denies any symptoms, such as chest pain, shortness of breath, dizziness/lightheadedness at this time pt declines blood transfusion and prefers to be monitored only Current Hgb 7.2 Will check hemoglobin again today and if it is below 7 will give blood transfusion Hypertension Continue verapamil, withholding parameters. Hold lisinopril for now. Monitor blood pressure. CRISPIN on CKD stage IV. Baseline creatinine around 1.5 to 1.7, on admission creatinine of 1.9. Received IV fluids. Cr normalized to 1.6 on 06/27 History of diabetes. Hold glipizide. Blood sugars were running high on admission. We will place on Lantus 5 units b.i.d. and insulin sliding scale and follow the blood sugars closely. Hypothyroidism. Continue Synthroid. Hyperlipidemia. Continue statin. History of subarachnoid bleed. History of methicillin-resistant Staphylococcus aureus infection. History of a mild episode of depression. DVT prophylaxis, on Coumadin. INR therapeutic Discussed with daughter in detail Admission and Anticipated Discharge Date Admission Date: June 25, 2020 Subjective 07/03/2020 The patient was seen and examined in medical floor She complains to have swelling of the left foot with some pain in the left ankle Denies any more fever and/or chills Still has urinary symptoms especially incontinence at times 07/04/2020 The patient was seen and examined in medical floor She was noted to have fever last night of 38.2 C She will not be transferred to [facility] today Review of Systems Review of Systems: All systems reviewed and are unremarkable except as noted below Genitourinary: + urinary hesitancy and + urinary incontinence; no dysuria Musculoskeletal: Minimal pain and swelling involving the left foot and left ankle Physical Exam Physical Exam: Lying in bed comfortably Constitutional: well developed and well nourished; no acute distress and not ill appearing Eyes: PERRL, conjunctivae normal, anicteric sclerae ENMT: external ear and nose normal, oropharynx normal Neck: trachea midline, no thyromegaly Respiratory: normal respiratory effort; no respiratory distress Auscultation: lungs clear to auscultation bilaterally Cardiovascular: Rate/Rhythm: regular rate and regular rhythm Heart Sounds: no murmur Gastrointestinal (Abdomen): Inspection/Auscultation: abdomen normal to inspection; + abnormal bowel sounds Percussion/Palpation: abdomen soft; abdomen nontender Neurologic: moves all extremities; no focal motor deficits Psychiatric: A+Ox3, euthymic affect Lymphatic: no cervical or axillary lymphadenopathy Results & Data Results & Data ([facility]) Vital Signs (Past 12 Hours) Vital Signs Temp Pulse Pulse Resp BP BP Pulse Ox 07/05/20 17:32 37.4 C 90 18 106/53 L 90 07/05/20 17:13 37.3 C 86 18 114/54 L 91 07/05/20 15:02 36.8 C 104 H 18 120/57 L 91 07/05/20 07:50 37.3 C 84 18 116/67 98
--- NOTE | 2020-07-05 18:14 | Hospitalist Progress Note ---
Date of Service July 05, 2020 Assessment & Plan (1) Gram-negative bacteremia: Secondary to UTI WBC 22K on admission, now down to 8.5K (normalized) Blood cultx 06/25 positive for E. coli x2 Urine cltx positive for E. coli Abx switched to ceftriaxone on 06/28 Pt afebrile since 06/28 Switched to PO Ciprofloxacin 07/01 And the patient is switched back to intravenous ceftriaxone as of 07/02/2020 Repeat blood cultures on of this month have been negative [facility]awaiting input and recommendation Continues to have fever at night without any more urinary symptoms Refugio generally weak and lethargic Will restart intravenous ciprofloxacin and will get blood cultures if recurrent fever (2) Sepsis: (3) Acute UTI: This is an 85-year-old female who presents with fall at home, and found to be septic, with non-ST elevation myocardial infarction. Sepsis. Meets criteria for sepsis with leukocytosis, tachycardia, elevated lactic acid, and urinary tract infection. IV fluids. Zosyn was started in the ER, which was continued. Patient also received vancomycin. Vancomycin was discontinued after blood cultures positive for gram-negative bacteria. Intravenous Zosyn was changed to intravenous ceftriaxone and subsequent antibiotic as above Temp elevated again in the afternoon (07/02) and also pt found to retain again about 700cc of urine, pt was straight cathed Urine cltx, blood cltx - ordered, Renal US ordered to eval for hydronephrosos/ poss. renal abscess, pt switched back to IV ceftriaxone. X-IOdaleer MURPHY consult placed. Ultrasound did not show any hydronephrosis/abscess but he did show several left renal cyst and moderate bilateral renal cortical thinning 6 mm left renal calculus Denies any significant symptoms Velásquez has been discontinued Urine is growing fungi blood culture remains stable-will not start any antifungal as of yet Fall mostly from above. CT head shows left parieto-occipital contusion.PT/OT when stable. (4) Elevated troponin: Likely type II [place] in setting of acute sepsis. She denies recent or recurrent anginal like symptoms. Currently symptom free. Mild nonspecific ST/ T wave abnormality noted on EKG, no acute changes. 2D echo obtained and cardiology consulted; mild concentric LV hypertrophy with EF of 55 to 60%, RV systolic function is normal, LA is mildly dilated, RA is normal, there is mild mitral regurgitation and grade 1 diastolic dysfunction Continue current cardiac medications (5) Paroxysmal A-fib: Atrial fibrillation, continue verapamil withholding parameters, and continue Coumadin. We will follow the PT/INR. Patient developed A. fib with RVR on June 27 pm. At this time she was also retaining urine, bladder scan about 700 cc. She was catheterized, and received small dose of IV metoprolol, and converted back to normal sinus rhythm. INR subtherapeutic on admission, INR is therapeutic now and is 2.4 as of07/03/2020 Heart rate is controlled Anemia Hgb 6.9 on 06/28 AM, likely dilutional from IVF no signs of acute bleed pt at this time denies any symptoms, such as chest pain, shortness of breath, dizziness/lightheadedness at this time pt declines blood transfusion and prefers to be monitored only Current Hgb 7.2 Will check hemoglobin again today and if it is below 7 will give blood transfusion When remains around 6.9-7.4 We will give 2 units of blood transfusion Chest x-ray last night did not show any congestion Hypertension Continue verapamil, withholding parameters. Hold lisinopril for now. Monitor blood pressure. CRISPIN on CKD stage IV. Baseline creatinine around 1.5 to 1.7, on admission creatinine of 1.9. Received IV fluids. Cr normalized to 1.6 on 06/27 History of diabetes. Hold glipizide. Blood sugars were running high on admission. We will place on Lantus 5 units b.i.d. and insulin sliding scale and follow the blood sugars closely. Hypothyroidism. Continue Synthroid. Hyperlipidemia. Continue statin. History of subarachnoid bleed. History of methicillin-resistant Staphylococcus aureus infection. History of a mild episode of depression. DVT prophylaxis, on Coumadin. INR therapeutic Discussed with daughter in detail Admission and Anticipated Discharge Date Admission Date: June 25, 2020 Subjective 07/03/2020 The patient was seen and examined in medical floor She complains to have swelling of the left foot with some pain in the left ankle Denies any more fever and/or chills Still has urinary symptoms especially incontinence at times 07/04/2020 The patient was seen and examined in medical floor She was noted to have fever last night of 38.2 C She will not be transferred to [facility] today 07/05/2020 The patient was seen and examined in medical floor She has been feeling extremely weak and lethargic Denies any significant pain No fever and/or chills throughout this morning Review of Systems Review of Systems: All systems reviewed and are unremarkable except as noted below Genitourinary: + urinary hesitancy and + urinary incontinence; no dysuria Musculoskeletal: Minimal pain and swelling involving the left foot and left ankle Neurologic: + generalized weakness Physical Exam Physical Exam: Lying in bed comfortably but looks very ill and fatigue Constitutional: well developed, well nourished and + ill appearing; no acute distress Eyes: PERRL, conjunctivae normal, anicteric sclerae ENMT: external ear and nose normal, oropharynx normal Neck: trachea midline, no thyromegaly Respiratory: normal respiratory effort; no respiratory distress Aus cultation: lungs clear to auscultation bilaterally Cardiovascular: Rate/Rhythm: regular rate and regular rhythm Heart Sounds: no murmur Gastrointestinal (Abdomen): Inspection/Auscultation: abdomen normal to inspection; + abnormal bowel sounds Percussion/Palpation: abdomen soft; abdomen nontender Musculoskeletal: No acute arthritis in any joint Neurologic: moves all extremities; no focal motor deficits Generalized weakness without any focal sensory and motor deficit Psychiatric: A+Ox3, euthymic affect Lymphatic: no cervical or axillary lymphadenopathy Results & Data Results & Data ([facility]) Vital Signs (Past 12 Hours) Vital Signs Temp Pulse Pulse Resp BP BP Pulse Ox 07/05/20 17:32 37.4 C 90 18 106/53 L 90 07/05/20 17:13 37.3 C 86 18 114/54 L 91 07/05/20 15:02 36.8 C 104 H 18 120/57 L 91 07/05/20 07:50 37.3 C 84 18 116/67 98 Laboratory Results Short CBC 07/05/20 07/05/20 Range/Units 00:36 06:10 WBC 8.38 6.42 (4.8-10.8) K/uL Hgb 7.8 L 7.1 L (12.0-16.0) g/dL Hct 24.3 L 22.9 L (37-47) % Plt Count 288 283 (130-400) K/uL BMP 07/05/20 07/05/20 00:36 06:10 Sodium 132 L Potassium 4.5 Chloride 99 Carbon Dioxide 26 BUN 24 H Creatinine 1.30 H 1.33 H Glucose 159 H Calcium 8.5 Cardiac Enzymes 07/05/20 Range/Units 00:36 Troponin I 0.030 (0-0.045) ng/ml Liver Function 07/05/20 Range/Units 00:36 Total Bilirubin 0.3 (0.2-1) mg/dl AST 50 H (15-37) U/L ALT 72 (12-78) U/L Alkaline Phosphatase 98 (45-117) U/L Albumin 2.2 L (3.4-5.0) gm/dl Medications Administered Current Inpatient Medications Acetaminophen (Acetaminophen 325 Mg Tab) 650 mg PO Q4H PRN PRN Reason: Pain or Fever Stop: 07/26/20 01:02 Last Admin: 07/04/20 23:52 Dose: 650 mg Documented by: Aspirin (Aspirin 81 Mg Ectab) 81 mg PO MoWeFr@0900 NO Stop: 07/26/20 08:59 Last Admin: 07/05/20 08:57 Dose: 81 mg Documented by: Calcium Carbonate (Calcium Carbonate 1250mg Tab) 1,250 mg PO DAILY NO Stop: 07/26/20 08:59 Last Admin: 07/05/20 08:57 Dose: 1,250 mg Documented by: Ciprofloxacin (Ciprofloxacin 500 Mg Tab) 500 mg PO BID NO Stop: 07/15/20 08:59 Last Admin: 07/02/20 09:49 Dose: 500 mg Documented by: Dextrose (Dextrose 50% 50 Ml Syringe) 25 - 50 ml IV UD PRN; Protocol PRN Reason: Hypoglycemia Protocol Stop: 07/26/20 02:44 Docusate Sodium (Docusate Sodium 100 Mg Cap) 100 mg PO QPM NO Stop: 07/26/20 20:59 Last Admin: 07/04/20 21:23 Dose: 100 mg Documented by: Ferrous Sulfate (Ferrous Sulfate 325 Mg Tab) 325 mg PO QAM NO Stop: 07/26/20 08:59 Last Admin: 07/05/20 08:56 Dose: 325 mg Documented by: Fluticasone Propionate (Fluticasone Propionate Na Spr 16 Gm Btl) 2 sprays NA HS PRN PRN Reason: Nasal Congestion Stop: 07/26/20 01:02 Glucagon (Glucagon For Inj 1 Mg Vial) 1 mg IM UD PRN; Protocol PRN Reason: Hypoglycemia Protocol Stop: 07/26/20 02:44 Glucose (Glucose 40% Gel 15 Gm Tube) 15 - 30 gm PO UD PRN; Protocol PRN Reason: Hypoglycemia Protocol Stop: 07/26/20 02:44 Glucose (Glucose 10 Tabs/Tube) 4 - 8 tabs PO UD PRN; Protocol PRN Reason: Hypoglycemia Protocol Stop: 07/26/20 02:44 Sodium Chloride (Nss 1000ml) 1,000 mls @ 100 mls/hr IV .Q10H NO Stop: 08/04/20 00:29 Last Admin: 07/05/20 11:29 Dose: 100 mls/hr Documented by: Ciprofloxacin Lactate (Cipro / D5w) 200 mg in 100 mls @ 100 mls/hr IV Q12H NO; Protocol Stop: 07/15/20 12:59 Last Infusion: 07/05/20 14:50 Dose: Infused Documented by: Sodium Chloride (Nss) 250 mls @ 15 mls/hr IV .[id number] PRN PRN Reason: For Transfusion Stop: 07/06/20 01:14 Insulin Aspart (Insulin Aspart 100 Units/Ml 3 Ml Pen) 0 units SC ACHS NO Stop: 07/26/20 02:44 Last Admin: 07/05/20 13:35 Dose: 5 units Documented by: Insulin Glargine (Insulin Glargine Solostar 100 Units/Ml 3 Ml Pen) 8 units SC BID NO Stop: 08/03/20 08:59 Last Admin: 07/05/20 08:50 Dose: 8 units Documented by: Levothyroxine Sodium (Levothyroxine Sodium 100 Mcg Tablet) 100 mcg PO DAILYBB [facility] Stop: 07/26/20 06:29 Last Admin: 07/05/20 06:31 Dose: 100 mcg Documented by: Lisinopril (Lisinopril 10 Mg Tab) 10 mg PO DAILY NO Stop: 07/26/20 08:59 Last Admin: 07/05/20 08:49 Dose: 10 mg Documented by: Loperamide HCl (Loperamide Hcl 2 Mg Cap) 2 mg PO Q2H PRN PRN Reason: Loose stool Stop: 08/03/20 11:59 Miconazole Nitrate (Miconazole Nitrate Powder 43 Gm) 1 appln EXT PRN PRN PRN Reason: Affected Skin Folds Stop: 08/04/20 07:14 Last Admin: 07/05/20 08:52 Dose: 1 appln Documented by: Miscellaneous (Carbohydrates For Hypoglycemia ) 15 - 30 gm PO UD PRN PRN Reason: Hypoglycemia Treatment Stop: 07/26/20 02:44 Nitroglycerin (Nitroglycerin Sl 0.4 Mg/Tab Tab) 0.4 mg SL UD PRN PRN Reason: Chest Pain Stop: 07/26/20 01:02 Ondansetron HCl (Ondansetron Inj 2 Mg/Ml 2 Ml Vial) 4 mg IV Q6H PRN PRN Reason: Nausea Stop: 07/26/20 01:02 Rosuvastatin Calcium (Rosuvastatin Calcium 10 Mg Tab) 10 mg PO [facility] Stop: 07/26/20 20:59 Last Admin: 07/04/20 21:22 Dose: 10 mg Documented by: Saccharomyces Boulardii (Saccharomyces Boulardii 250 Mg Cap) 250 mg PO DAILY [facility] Stop: 07/27/20 19:29 Last Admin: 07/05/20 08:56 Dose: 250 mg Documented by: Tamsulosin HCl (Tamsulosin Hcl 0.4 Mg Cap) 0.4 mg PO [facility] Stop: 07/26/20 20:59 Last Admin: 07/04/20 21:22 Dose: 0.4 mg Documented by: Tizanidine HCl (Tizanidine Hcl 4 Mg Tablet) 4 mg PO Q8H PRN PRN Reason: Muscle Pain Stop: 07/26/20 01:02 Verapamil HCl (Verapamil Hcl 180 Mg Tabcr) 180 mg PO [facility] Stop: 07/26/20 08:59 Last Admin: 07/05/20 08:49 Dose: 180 mg Documented by: Vitamin D (Cholecalciferol 1,000 Units 25 Mcg Tab) [facility] Stop: 07/26/20 08:59 Last Admin: 07/05/20 08:58 Dose: 2,000 units Documented by: Warfarin Sodium (Warfarin Sod 2 Mg Tab) 2 mg PO SuTuWeThFrSa@1600 [facility] Stop: 07/26/20 15:59 Last Admin: 07/05/20 16:20 Dose: 2 mg Documented by: Warfarin Sodium (Warfarin Sod 4 Mg Tab) 4 mg PO Mo@1600 [facility] Stop: 07/31/20 15:59 Last Admin: 07/01/20 16:21 Dose: 4 mg Documented by: Zinc Sulfate (Zinc Sulfate 220 Mg Capsule) 220 mg PO QDL NO Stop: 07/26/20 11:29 Last Admin: 07/05/20 13:35 Dose: 220 mg Documented by:
[2020-07-05] MEDS: ACETAMINOPHEN 325 MG TAB PO PRN (19:56)
[2020-07-05] MEDS ORDERED: AMOXICILLIN 500 MG CAP PO SCH (21:00)
[2020-07-05] MEDS: TAMSULOSIN HCL 0.4 MG CAP PO SCH (21:08)
[2020-07-05] MEDS: DOCUSATE SODIUM 100 MG CAP PO SCH (21:08)
[2020-07-05] MEDS: ROSUVASTATIN CALCIUM 10 MG TAB PO SCH (21:08)
[2020-07-05] MEDS ORDERED: SODIUM CHLORIDE 0.9% 500 ML IV SCH (21:45)
[2020-07-05 23:27] LABS: Blood Urine Negative (Negative)
[2020-07-06] MEDS: CIPROFLOXACIN / D5W 200 MG/100 ML BAG IV SCH ×2 (01:21→12:55)
[2020-07-06] MEDS: LEVOTHYROXINE SODIUM 100 MCG TABLET PO SCH (05:22)
[2020-07-06] MEDS: MICONAZOLE NITRATE POWDER 43 GM EXT PRN (08:10)
[2020-07-06] MEDS: CALCIUM CARBONATE 1250MG TAB PO SCH (08:12)
[2020-07-06] MEDS: CHOLECALCIFEROL 1,000 UNITS 25 MCG TAB PO SCH (08:12)
[2020-07-06] MEDS: FERROUS SULFATE 325 MG TAB PO SCH (08:12)
[2020-07-06] MEDS: VERAPAMIL HCL 180 MG TABCR PO SCH (08:13)
[2020-07-06] MEDS: SACCHAROMYCES BOULARDII 250 MG CAP PO SCH (08:13)
[2020-07-06] MEDS: lisinopril 10 MG TAB PO SCH (08:13)
[2020-07-06 08:54] LABS: Basophils # (auto) 0.01 K/uL (0-0.2); Basophils % (auto) 0.1 %; Eosinophils # (auto) 0.11 K/uL (0-0.5); Eosinophils % (auto) 1.6 %; Hematocrit (blood only) 27.2 % (37-47); Hemoglobin 8.5 g/dL (12.0-16.0); Immature Granulocytes # (auto) 0.13 K/uL (0.00-0.02); Immature Granulocytes % (auto) 1.9 %; Lymphocytes # (auto) 1.65 K/uL (1.2-3.4); Lymphocytes % (auto) 24.6 %; Mean Corpuscular Hemoglobin 25.2 pg (25-34); Mean Corpuscular Hgb Conc 31.3 g/dL (32-36); Mean Corpuscular Volume 80.7 fL (80-100); Mean Platelet Volume 9.4 fL (7.4-10.4); Monocytes # (auto) 0.68 K/uL (0.11-0.59); Monocytes % (auto) 10.1 %; Neutrophils # (auto) 4.14 K/uL (1.4-6.5); Neutrophils % (auto) 61.7 %; Platelet Count 235 K/uL (130-400); RDW Coefficient of Variation 16.2 % (11.5-14.5); Red Blood Count 3.37 M/uL (4.2-5.4); White Blood Count 6.72 K/uL (4.8-10.8)
[2020-07-06] MEDS: INSULIN GLARGINE SOLOSTAR 100 UNITS/ML 3 ML PEN SC SCH ×2 (09:12→21:06)
[2020-07-06] MEDS: INSULIN ASPART 100 UNITS/ML 3 ML PEN SC SCH ×4 (09:13→21:07)
[2020-07-06 09:28] LABS: Calcium 8.5 mg/dl (8.5-10.1); Creatinine Clr Calc Pharmacy 28.8 ml/min; Est GFR (African American) 48.4; Est GFR (Non-African American) 41.7; Magnesium 1.9 mg/dl (1.8-2.4); Potassium 3.9 mmol/L (3.5-5.1)
[2020-07-06 09:29] LABS: Phosphorus 3.2 mg/dl (2.5-4.9)
[2020-07-06] MEDS: SODIUM CHLORIDE 0.9% 1000ML 1,000 ML IV SCH ×3 (11:31→21:05)
[2020-07-06] MEDS: ZINC SULFATE 220 MG CAPSULE PO SCH (12:57)
--- NOTE | 2020-07-06 15:50 | Hospitalist Progress Note ---
Date of Service July 06, 2020 Assessment & Plan (1) Gram-negative bacteremia: Secondary to UTI WBC 22K on admission, now down to 8.5K (normalized) Blood cultx 06/25 positive for E. coli x2 Urine cltx positive for E. coli Abx switched to ceftriaxone on 06/28 Pt afebrile since 06/28 Switched to PO Ciprofloxacin 07/01 And the patient is switched back to intravenous ceftriaxone as of 07/02/2020 Repeat blood cultures on of this month have been negative Repeat urine culture is pending Reese ARRINGTON has been consulted-awaiting input and recommendation Continues to have fever at night without any more urinary symptoms Refugio generally weak and lethargic Will restart intravenous ciprofloxacin and will get blood cultures if recurrent fever No more fever and the patient has been feeling a lot better We will continue intravenous antibiotic for now (2) Sepsis: (3) Acute UTI: This is an 85-year-old female who presents with fall at home, and found to be septic, with non-ST elevation myocardial infarction. Sepsis. Meets criteria for sepsis with leukocytosis, tachycardia, elevated lactic acid, and urinary tract infection. IV fluids. Zosyn was started in the ER, which was continued. Patient also received vancomycin. Vancomycin was discontinued after blood cultures positive for gram-negative bacteria. Intravenous Zosyn was changed to intravenous ceftriaxone and subsequent antibiotic as above Temp elevated again in the afternoon (07/02) and also pt found to retain again about 700cc of urine, pt was straight cathed Urine cltx, blood cltx - ordered, Renal US ordered to eval for hydronephrosos/ poss. renal abscess, pt switched back to IV ceftriaxone. Reese ARRINGTON consult placed. Ultrasound did not show any hydronephrosis/abscess but he did show several left renal cyst and moderate bilateral renal cortical thinning 6 mm left renal c alculus Denies any significant symptoms Velásquez has been discontinued Urine is growing fungi blood culture remains stable-will not start any antifungal as of yet She has been requiring catheter and will need outpatient urology appointment Fall mostly from above. CT head shows left parieto-occipital contusion.PT/OT when stable. (4) Elevated troponin: Likely type II [place] in setting of acute sepsis. She denies recent or recurrent anginal like symptoms. Currently symptom free. Mild nonspecific ST/ T wave abnormality noted on EKG, no acute changes. 2D echo obtained and cardiology consulted; mild concentric LV hypertrophy with EF of 55 to 60%, RV systolic function is normal, LA is mildly dilated, RA is normal, there is mild mitral regurgitation and grade 1 diastolic dysfunction Continue current cardiac medications (5) Paroxysmal A-fib: Atrial fibrillation, continue verapamil withholding parameters, and continue Coumadin. We will follow the PT/INR. Patient developed A. fib with RVR on June 27 pm. At this time she was also retaining urine, bladder scan about 700 cc. She was catheterized, and received small dose of IV metoprolol, and converted back to normal sinus rhythm. INR subtherapeutic on admission, INR is therapeutic now and is 2.4 as of07/03/2020 Heart rate is controlled Anemia Hgb 6.9 on 06/28 AM, likely dilutional from IVF no signs of acute bleed pt at this time denies any symptoms, such as chest pain, shortness of breath, dizziness/lightheadedness at this time pt declines blood transfusion and prefers to be monitored only Current Hgb 7.2 Will check hemoglobin again today and if it is below 7 will give blood transfusion When remains around 6.9-7.4 We will give 2 units of blood transfusion Chest x-ray last night did not show any congestion She received 2 units of PRBC and has been feeling a lot better since transfusion Hypertension Continue verapamil, withholding parameters. Hold lisinopril for now. Monitor blood pressure. CRISPIN on CKD stage IV. Baseline creatinine around 1.5 to 1.7, on admission creatinine of 1.9. Received IV fluids. Cr normalized to 1.6 on 06/27 History of diabetes. Hold glipizide. Blood sugars were running high on admiss ion. We will place on Lantus 5 units b.i.d. and insulin sliding scale and follow the blood sugars closely. Hypothyroidism. Continue Synthroid. Hyperlipidemia. Continue statin. History of subarachnoid bleed. History of methicillin-resistant Staphylococcus aureus infection. History of a mild episode of depression. DVT prophylaxis, on Coumadin. INR therapeutic Discussed with daughter in detail Admission and Anticipated Discharge Date Admission Date: June 25, 2020 Subjective 07/03/2020 The patient was seen and examined in medical floor She complains to have swelling of the left foot with some pain in the left ankle Denies any more fever and/or chills Still has urinary symptoms especially incontinence at times 07/04/2020 The patient was seen and examined in medical floor She was noted to have fever last night of 38.2 C She will not be transferred to [facility] today 07/05/2020 The patient was seen and examined in medical floor She has been feeling extremely weak and lethargic Denies any significant pain No fever and/or chills throughout this morning 07/06/2020 The patient was seen and examined in medical floor She has been much better today She is smiling and denies any symptoms Her weakness is much improved following blood transfusion Review of Systems Review of Systems: All systems reviewed and are unremarkable except as noted below Genitourinary: + urinary hesitancy and + urinary incontinence; no dysuria Musculoskeletal: Minimal pain and swelling involving the left foot and left ankle Neurologic: + generalized weakness (Much improved) Physical Exam Physical Exam: Lying in bed comfortably but looks very ill and fatigue Constitutional: well developed, well nourished and + ill appearing; no acute distress Eyes: PERRL, conjunctivae normal, anicteric sclerae ENMT: external ear and nose normal, oropharynx normal Neck: trachea midline, no thyromegaly Respiratory: normal respiratory effort; no respiratory distress Auscultation: lungs clear to auscultation bilaterally Cardiovascular: Rate/Rhythm: regular rate and regular rhythm Heart Sounds: no murmur Gastrointestinal (Abdomen): Inspection/Auscultation: abdomen normal to inspection; + abnormal bowel sounds Percussion/Palpation: abdomen soft; abdomen nontender Neurologic: moves all extremities; no focal motor deficits Psychiatric: A+Ox3, euthymic affect Lymphatic: no cervical or axillary lymphadenopathy Results & Data Results & Data ([facility]) Vital Signs (Past 12 Hours) Vital Signs Temp Pulse Resp BP Pulse Ox 07/06/20 15:11 37.0 C 81 18 106/55 L 94 07/06/20 07:00 36.9 C 74 20 103/64 95 Laboratory Results Short CBC 07/06/20 Range/Units 08:33 WBC 6.72 (4.8-10.8) K/uL Hgb 8.5 L (12.0-16.0) g/dL Hct 27.2 L (37-47) % Plt Count 235 (130-400) K/uL BMP 07/06/20 08:33 Sodium 136 Potassium 3.9 Chloride 102 Carbon Dioxide 28 BUN 26 H Creatinine 1.18 Glucose 136 H Calcium 8.5 Medications Administered Current Inpatient Medications Acetaminophen (Acetaminophen 325 Mg Tab) 650 mg PO Q4H PRN PRN Reason: Pain or Fever Stop: 07/26/20 01:02 Last Admin: 07/05/20 19:56 Dose: 650 mg Documented by: Aspirin (Aspirin 81 Mg Ectab) 81 mg PO MoWeFr@0900 NO Stop: 07/26/20 08:59 Last Admin: 07/05/20 08:57 Dose: 81 mg Documented by: Calcium Carbonate (Calcium Carbonate 1250mg Tab) 1,250 mg PO DAILY NO Stop: 07/26/20 08:59 Last Admin: 07/06/20 08:12 Dose: 1,250 mg Documented by: Ciprofloxacin (Ciprofloxacin 500 Mg Tab) 500 mg PO BID NO Stop: 07/15/20 08:59 Last Admin: 07/02/20 09:49 Dose: 500 mg Documented by: Dextrose (Dextrose 50% 50 Ml Syringe) 25 - 50 ml IV UD PRN; Protocol PRN Reason: Hypoglycemia Protocol Stop: 07/26/20 02:44 Docusate Sodium (Docusate Sodium 100 Mg Cap) 100 mg PO QPM NO Stop: 07/26/20 20:59 Last Admin: 07/05/20 21:08 Dose: 100 mg Documented by: Ferrous Sulfate (Ferrous Sulfate 325 Mg Tab) 325 mg PO QAM NO Stop: 07/26/20 08:59 Last Admin: 07/06/20 08:12 Dose: 325 mg Documented by: Fluticasone Propionate (Fluticasone Propionate Na Spr 16 Gm Btl) 2 sprays NA HS PRN PRN Reason: Nasal Congestion Stop: 07/26/20 01:02 Glucagon (Glucagon For Inj 1 Mg Vial) 1 mg IM UD PRN; Protocol PRN Reason: Hypoglycemia Protocol Stop: 07/26/20 02:44 Glucose (Glucose 40% Gel 15 Gm Tube) 15 - 30 gm PO UD PRN; Protocol PRN Reason: Hypoglycemia Protocol Stop: 07/26/20 02:44 Glucose (Glucose 10 Tabs/Tube) 4 - 8 tabs PO UD PRN; Protocol PRN Reason: Hypoglycemia Protocol Stop: 07/26/20 02:44 Sodium Chloride (Nss 1000ml) 1,000 mls @ 100 mls/hr IV .Q10H NO Stop: 08/04/20 00:29 Last Admin: 07/06/20 11:31 Dose: 100 mls/hr Documented by: Ciprofloxacin Lactate (Cipro / D5w) 200 mg in 100 mls @ 100 mls/hr IV Q12H [facility]; Protocol Stop: 07/15/20 12:59 Last Infusion: 07/06/20 13:55 Dose: Infused Documented by: Insulin Aspart (Insulin Aspart 100 Units/Ml 3 Ml Pen) 0 units SC ACHS [facility] Stop: 07/26/20 02:44 Last Admin: 07/06/20 12:58 Dose: 9 units Documented by: Insulin Glargine (Insulin Glargine Solostar 100 Units/Ml 3 Ml Pen) 8 units SC BID [facility] Stop: 08/03/20 08:59 Last Admin: 07/06/20 09:12 Dose: 8 units Documented by: Levothyroxine Sodium (Levothyroxine Sodium 100 Mcg Tablet) 100 mcg PO DAILYBB [facility] Stop: 07/26/20 06:29 Last Admin: 07/06/20 05:22 Dose: 100 mcg Documented by: Lisinopril (Lisinopril 10 Mg Tab) 10 mg PO DAILY [facility] Stop: 07/26/20 08:59 Last Admin: 07/06/20 08:13 Dose: 10 mg Documented by: Loperamide HCl (Loperamide Hcl 2 Mg Cap) 2 mg PO Q2H PRN PRN Reason: Loose stool Stop: 08/03/20 11:59 Miconazole Nitrate (Miconazole Nitrate Powder 43 Gm) 1 appln EXT PRN PRN PRN Reason: Affected Skin Folds Stop: 08/04/20 07:14 Last Admin: 07/06/20 08:10 Dose: 1 appln Documented by: Miscellaneous (Carbohydrates For Hypoglycemia ) 15 - 30 gm PO UD PRN PRN Reason: Hypoglycemia Treatment Stop: 07/26/20 02:44 Nitroglycerin (Nitroglycerin Sl 0.4 Mg/Tab Tab) 0.4 mg SL UD PRN PRN Reason: Chest Pain Stop: 07/26/20 01:02 Ondansetron HCl (Ondansetron Inj 2 Mg/Ml 2 Ml Vial) 4 mg IV Q6H PRN PRN Reason: Nausea Stop: 07/26/20 01:02 Rosuvastatin Calcium (Rosuvastatin Calcium 10 Mg Tab) 10 mg PO HS [facility] Stop: 07/26/20 20:59 Last Admin: 07/05/20 21:08 Dose: 10 mg Documented by: Saccharomyces Boulardii (Saccharomyces Boulardii 250 Mg Cap) 250 mg PO DAILY [facility] Stop: 07/27/20 19:29 Last Admin: 07/06/20 08:13 Dose: 250 mg Documented by: Tamsulosin HCl (Tamsulosin Hcl 0.4 Mg Cap) 0.4 mg PO [facility] Stop: 07/26/20 20:59 Last Admin: 07/05/20 21:08 Dose: 0.4 mg Documented by: Tizanidine HCl (Tizanidine Hcl 4 Mg Tablet) 4 mg PO Q8H PRN PRN Reason: Muscle Pain Stop: 07/26/20 01:02 Verapamil HCl (Verapamil Hcl 180 Mg Tabcr) 180 [facility] Stop: 07/26/20 08:59 Last Admin: 07/06/20 08:13 Dose: 180 mg Documented by: Vitamin D (Cholecalciferol 1,000 Units 25 Mcg Tab) 2,000 units PO [facility] Stop: 07/26/20 08:59 Last Admin: 07/06/20 08:12 Dose: 2,000 units Documented by: Warfarin Sodium (Warfarin Sod 2 Mg Tab) 2 mg PO SuTuWeThFrSa@1600 [facility] Stop: 07/26/20 15:59 Last Admin: 07/05/20 16:20 Dose: 2 mg Documented by: Warfarin Sodium (Warfarin Sod 4 Mg Tab) 4 mg PO Mo@1600 [facility] Stop: 07/31/20 15:59 Last Admin: 07/01/20 16:21 Dose: 4 mg Documented by: Zinc Sulfate (Zinc Sulfate 220 Mg Capsule) 220 mg PO QDL [facility] Stop: 07/26/20 11:29 Last Admin: 07/06/20 12:57 Dose: 220 mg Documented by:
[2020-07-06] MEDS: WARFARIN SOD 2 MG TAB PO SCH (16:24)
[2020-07-06] MEDS: DOCUSATE SODIUM 100 MG CAP PO SCH (21:03)
[2020-07-06] MEDS: TAMSULOSIN HCL 0.4 MG CAP PO SCH (21:03)
[2020-07-06] MEDS: ROSUVASTATIN CALCIUM 10 MG TAB PO SCH (21:03)
[2020-07-06] MEDS: ACETAMINOPHEN 325 MG TAB PO PRN (22:51)
[2020-07-07] MEDS: CIPROFLOXACIN / D5W 200 MG/100 ML BAG IV SCH ×3 (00:50→23:44)
[2020-07-07] MEDS: LEVOTHYROXINE SODIUM 100 MCG TABLET PO SCH (05:26)
[2020-07-07] MEDS: SODIUM CHLORIDE 0.9% 1000ML 1,000 ML IV SCH ×2 (08:49→19:11)
[2020-07-07] MEDS: CALCIUM CARBONATE 1250MG TAB PO SCH (08:50)
[2020-07-07] MEDS: VERAPAMIL HCL 180 MG TABCR PO SCH (08:50)
[2020-07-07] MEDS: SACCHAROMYCES BOULARDII 250 MG CAP PO SCH (08:50)
[2020-07-07] MEDS: lisinopril 10 MG TAB PO SCH (08:50)
[2020-07-07] MEDS: FERROUS SULFATE 325 MG TAB PO SCH (08:50)
[2020-07-07] MEDS: INSULIN ASPART 100 UNITS/ML 3 ML PEN SC SCH ×4 (08:52→20:59)
[2020-07-07] MEDS: INSULIN GLARGINE SOLOSTAR 100 UNITS/ML 3 ML PEN SC SCH ×2 (08:52→20:58)
[2020-07-07] MEDS: CHOLECALCIFEROL 1,000 UNITS 25 MCG TAB PO SCH (08:56)
[2020-07-07] MEDS: ZINC SULFATE 220 MG CAPSULE PO SCH (12:29)
--- NOTE | 2020-07-07 13:09 | Hospitalist Progress Note ---
Date of Service July 07, 2020 Assessment & Plan (1) Gram-negative bacteremia: Secondary to UTI WBC 22K on admission, now down to 8.5K (normalized) Blood cultx 06/25 positive for E. coli x2 Urine cltx positive for E. coli Abx switched to ceftriaxone on 06/28 Pt afebrile since 06/28 Switched to PO Ciprofloxacin 07/01 And the patient is switched back to intravenous ceftriaxone as of 07/02/2020 Repeat blood cultures on of this month have been negative Repeat urine culture is pending Reese ARRINGTON has been consulted-awaiting input and recommendation Continues to have fever at night without any more urinary symptoms Refugio generally weak and lethargic Will restart intravenous ciprofloxacin and will get blood cultures if recurrent fever No more fever and the patient has been feeling a lot better We will continue intravenous antibiotic for now (2) Sepsis: (3) Acute UTI: This is an 85-year-old female who presents with fall at home, and found to be septic, with non-ST elevation myocardial infarction. Sepsis. Meets criteria for sepsis with leukocytosis, tachycardia, elevated lactic acid, and urinary tract infection. IV fluids. Zosyn was started in the ER, which was continued. Patient also received vancomycin. Vancomycin was discontinued after blood cultures positive for gram-negative bacteria. Intravenous Zosyn was changed to intravenous ceftriaxone and subsequent antibiotic as above Temp elevated again in the afternoon (07/02) and also pt found to retain again about 700cc of urine, pt was straight cathed Urine cltx, blood cltx - ordered, Renal US ordered to eval for hydronephrosos/ poss. renal abscess, pt switched back to IV ceftriaxone. Reese ARRINGTON consult placed. Ultrasound did not show any hydronephrosis/abscess but he did show several left renal cyst and moderate bilateral renal cortical thinning 6 mm left renal c alculus Denies any significant symptoms Velásquez has been discontinued Urine is growing fungi blood culture remains stable-will not start any antifungal as of yet She has been requiring catheter and will need outpatient urology appointment Clinically a lot better with some diarrhea, C. difficile has been negative We will continue Imodium as needed Fall mostly from above. CT head shows left parieto-occipital contusion.PT/OT when stable. (4) Elevated troponin: Likely type II VT in setting of acute sepsis. She denies recent or recurrent anginal like symptoms. Currently symptom free. Mild nonspecific ST/ T wave abnormality noted on EKG, no acute changes. 2D echo obtained and cardiology consulted; mild concentric LV hypertrophy with EF of 55 to 60%, RV systolic function is normal, LA is mildly dilated, RA is normal, there is mild mitral regurgitation and grade 1 diastolic dysfunction Continue current cardiac medications (5) Paroxysmal A-fib: Atrial fibrillation, continue verapamil withholding parameters, and continue Coumadin. We will follow the PT/INR. Patient developed A. fib with RVR on June 27 pm. At this time she was also retaining urine, bladder scan about 700 cc. She was catheterized, and received small dose of IV metoprolol, and converted back to normal sinus rhythm. INR subtherapeutic on admission, INR is therapeutic now and is 2.4 as of07/03/2020 Heart rate is controlled Anemia Hgb 6.9 on 109 AM, likely dilutional from IVF no signs of acute bleed pt at this time denies any symptoms, such as chest pain, shortness of breath, dizziness/lightheadedness at this time pt declines blood transfusion and prefers to be monitored only Current Hgb 7.2 Will check hemoglobin again today and if it is below 7 will give blood transfusion When remains around 6.9-7.4 We will give 2 units of blood transfusion Chest x-ray last night did not show any congestion She received 2 units of PRBC and has been feeling a lot better since transfusion Has been feeling a lot better following blood transfusion Hypertension Continue verapamil, withholding parameters. Hold lisinopril for now. Monitor blood pressure. CRISPIN on CKD stage IV. Baseline creatinine around 1.5 to 1.7, on admission creatinine of 1.9. Received IV fluids. Cr normalized to 1.6 on 06/27 We will check PRP tomorrow History of diabetes. Hold glipizide. Blood sugars were running high on admission. We will place on Lantus 5 units b.i.d. and insulin sliding scale and follow the blood sugars closely. Hypothyroidism. Continue Synthroid. Hyperlipidemia. Continue statin. History of subarachnoid bleed. History of methicillin-resistant Staphylococcus aureus infection. History of a mild episode of depression. DVT prophylaxis, on Coumadin. INR therapeutic Discussed with daughter in detail Likely to be back to [facility] tomorrow Admission and Anticipated Discharge Date Admission Date: June 25, 2020 Subjective 07/03/2020 The patient was seen and examined in medical floor She complains to have swelling of the left foot with some pain in the left ankle Denies any more fever and/or chills Still has urinary symptoms especially incontinence at times 07/04/2020 The patient was seen and examined in medical floor She was noted to have fever last night of 38.2 C She will not be transferred to [facility] today 07/05/2020 The patient was seen and examined in medical floor She has been feeling extremely weak and lethargic Denies any significant pain No fever and/or chills throughout this morning 07/06/2020 The patient was seen and examined in medical floor She has been much better today She is smiling and denies any symptoms Her weakness is much improved following blood transfusion 07/07/2020 The patient was seen and examined in medical floor She is out of bed on a chair and denies any symptoms except incontinence of stool No more fever and chills for the last 48 hours Review of Systems Review of Systems: All systems reviewed and are unremarkable except as noted below Genitourinary: + urinary hesitancy and + urinary incontinence; no dysuria Musculoskeletal: Minimal pain and swelling involving the left foot and left ankle Neurologic: + generalized weakness (Much improved) Physical Exam Physical Exam: Lying in bed comfortably but looks very ill and fatigue Constitutional: well developed, well nourished and + ill appearing; no acute distress Eyes: PERRL, conjunctivae normal, anicteric sclerae ENMT: external ear and nose normal, oropharynx normal Neck: trachea midline, no thyromegaly Respiratory: normal respiratory effort; no respiratory distress Auscultation: lungs clear to auscultation bilaterally Cardiovascular: Rate/Rhythm: regular rate and regular rhythm Heart Sounds: no murmur Gastrointestinal (Abdomen): Inspection/Auscultation: abdomen normal to inspection; + abnormal bowel sounds Percussion/Palpation: abdomen soft; abdomen nontender Musculoskeletal: No acute arthritis in any joint Neurologic: moves all extremities; no focal motor deficits Psychiatric: A+Ox3, euthymic affect Lymphatic: no cervical or axillary lymphadenopathy Results & Data Results & Data ([facility]) Vital Signs (Past 12 Hours) Vital Signs Temp Pulse Resp BP Pulse Ox 07/07/20 08:03 36.5 C 73 16 115/63 91 Medications Administered Current Inpatient Medications Acetaminophen (Acetaminophen 325 Mg Tab) 650 mg PO Q4H PRN PRN Reason: Pain or Fever Stop: 07/26/20 01:02 Last Admin: 07/06/20 22:51 Dose: 650 mg Documented by: Aspirin (Aspirin 81 Mg Ectab) 81 mg PO MoWeFr@0900 NO Stop: 07/26/20 08:59 Last Admin: 07/05/20 08:57 Dose: 81 mg Documented by: Calcium Carbonate (Calcium Carbonate 1250mg Tab) 1,250 mg PO DAILY NO Stop: 07/26/20 08:59 Last Admin: 07/07/20 08:50 Dose: 1,250 mg Documented by: Ciprofloxacin (Ciprofloxacin 500 Mg Tab) 500 mg PO BID NO Stop: 07/15/20 08:59 Last Admin: 07/02/20 09:49 Dose: 500 mg Documented by: Dextrose (Dextrose 50% 50 Ml Syringe) 25 - 50 ml IV UD PRN; Protocol PRN Reason: Hypoglycemia Protocol Stop: 07/26/20 02:44 Docusate Sodium (Docusate Sodium 100 Mg Cap) 100 mg PO QPM [facility] Stop: 07/26/20 20:59 Last Admin: 07/06/20 21:03 Dose: 100 mg Documented by: Ferrous Sulfate (Ferrous Sulfate 325 Mg Tab) 325 mg PO QAM NO Stop: 07/26/20 08:59 Last Admin: 07/07/20 08:50 Dose: 325 mg Documented by: Fluticasone Propionate (Fluticasone Propionate Na Spr 16 Gm Btl) 2 sprays NA HS PRN PRN Reason: Nasal Congestion Stop: 07/26/20 01:02 Glucagon (Glucagon For Inj 1 Mg Vial) 1 mg IM UD PRN; Protocol PRN Reason: Hypoglycemia Protocol Stop: 07/26/20 02:44 Glucose (Glucose 40% Gel 15 Gm Tube) 15 - 30 gm PO UD PRN; Protocol PRN Reason: Hypoglycemia Protocol Stop: 07/26/20 02:44 Glucose (Glucose 10 Tabs/Tube) 4 - 8 tabs PO UD PRN; Protocol PRN Reason: Hypoglycemia Protocol Stop: 07/26/20 02:44 Sodium Chloride (Nss 1000ml) 1,000 mls @ 100 mls/hr IV .Q10H NO Stop: 08/04/20 00:29 Last Admin: 07/07/20 08:49 Dose: 100 mls/hr Documented by: Ciprofloxacin Lactate (Cipro / D5w) 200 mg in 100 mls @ 100 mls/hr IV Q12H [facility]; Protocol Stop: 07/15/20 12:59 Last Admin: 07/07/20 12:28 Dose: 100 mls/hr Documented by: Insulin Aspart (Insulin Aspart 100 Units/Ml 3 Ml Pen) 0 units SC ACHS [facility] Stop: 07/26/20 02:44 Last Admin: 07/07/20 12:29 Dose: 11 units Documented by: Insulin Glargine (Insulin Glargine Solostar 100 Units/Ml 3 Ml Pen) 8 units SC BID [facility] Stop: 08/03/20 08:59 Last Admin: 07/07/20 08:52 Dose: 8 units Documented by: Levothyroxine Sodium (Levothyroxine Sodium 100 Mcg Tablet) 100 mcg PO DAILYBB [facility] Stop: 07/26/20 06:29 Last Admin: 07/07/20 05:26 Dose: 100 mcg Documented by: Lisinopril (Lisinopril 10 Mg Tab) 10 mg PO DAILY [facility] Stop: 07/26/20 08:59 Last Admin: 07/07/20 08:50 Dose: 10 mg Documented by: Loperamide HCl (Loperamide Hcl 2 Mg Cap) 2 mg PO Q2H PRN PRN Reason: Loose stool Stop: 08/03/20 11:59 Miconazole Nitrate (Miconazole Nitrate Powder 43 Gm) 1 appln EXT PRN PRN PRN Reason: Affected Skin Folds Stop: 08/04/20 07:14 Last Admin: 07/06/20 08:10 Dose: 1 appln Documented by: Miscellaneous (Carbohydrates For Hypoglycemia ) 15 - 30 gm PO UD PRN PRN Reason: Hypoglycemia Treatment Stop: 07/26/20 02:44 Nitroglycerin (Nitroglycerin Sl 0.4 Mg/Tab Tab) 0.4 mg SL UD PRN PRN Reason: Chest Pain Stop: 07/26/20 01:02 Ondansetron HCl (Ondansetron Inj 2 Mg/Ml 2 Ml Vial) 4 mg IV Q6H PRN PRN Reason: Nausea Stop: 07/26/20 01:02 Rosuvastatin Calcium (Rosuvastatin Calcium 10 Mg Tab) 10 mg PO HS [facility] Stop: 07/26/20 20:59 Last Admin: 07/06/20 21:03 Dose: 10 mg Documented by: Saccharomyces Boulardii (Saccharomyces Boulardii 250 Mg Cap) 250 mg PO DAILY [facility] Stop: 07/27/20 19:29 Last Admin: 07/07/20 08:50 Dose: 250 mg Documented by: Tamsulosin HCl (Tamsulosin Hcl 0.4 Mg Cap) 0.4 mg PO HS [facility] Stop: 07/26/20 20:59 Last Admin: 07/06/20 21:03 Dose: 0.4 mg Documented by: Tizanidine HCl (Tizanidine Hcl 4 Mg Tablet) 4 mg PO Q8H PRN PRN Reason: Muscle Pain Stop: 07/26/20 01:02 Verapamil HCl (Verapamil Hcl 180 Mg Tabcr) 180 mg PO [facility] Stop: 07/26/20 08:59 Last Admin: 07/07/20 08:50 Dose: 180 mg Documented by: Vitamin D (Cholecalciferol 1,000 Units 25 Mcg Tab) 2,[facility] Stop: 07/26/20 08:59 Last Admin: 07/07/20 08:56 Dose: 2,000 units Documented by: Warfarin Sodium (Warfarin Sod 2 Mg Tab) 2 mg PO SuTuWeThFrSa@1600 [facility] Stop: 07/26/20 15:59 Last Admin: 07/06/20 16:24 Dose: 2 mg Documented by: Warfarin Sodium (Warfarin Sod 4 Mg Tab) 4 mg PO Mo@1600 [facility] Stop: 07/31/20 15:59 Last Admin: 07/01/20 16:21 Dose: 4 mg Documented by: Zinc Sulfate (Zinc Sulfate 220 Mg Capsule) 220 mg PO QDL [facility] Stop: 07/26/20 11:29 Last Admin: 07/07/20 12:29 Dose: 220 mg Documented by:
[2020-07-07] MEDS: WARFARIN SOD 2 MG TAB PO SCH (15:59)
[2020-07-07] MEDS: ROSUVASTATIN CALCIUM 10 MG TAB PO SCH (20:53)
[2020-07-07] MEDS: TAMSULOSIN HCL 0.4 MG CAP PO SCH (20:54)
[2020-07-07] MEDS: DOCUSATE SODIUM 100 MG CAP PO SCH (21:05)
[2020-07-08 05:24] LABS: Basophils # (auto) 0.01 K/uL (0-0.2); Basophils % (auto) 0.1 %; Eosinophils # (auto) 0.16 K/uL (0-0.5); Eosinophils % (auto) 2.2 %; Hematocrit (blood only) 24.6 % (37-47); Hemoglobin 7.7 g/dL (12.0-16.0); Immature Granulocytes # (auto) 0.08 K/uL (0.00-0.02); Immature Granulocytes % (auto) 1.1 %; Lymphocytes # (auto) 2.33 K/uL (1.2-3.4); Lymphocytes % (auto) 32.6 %; Mean Corpuscular Hemoglobin 25.2 pg (25-34); Mean Corpuscular Hgb Conc 31.3 g/dL (32-36); Mean Corpuscular Volume 80.7 fL (80-100); Mean Platelet Volume 9.5 fL (7.4-10.4); Monocytes # (auto) 0.64 K/uL (0.11-0.59); Neutrophils # (auto) 3.92 K/uL (1.4-6.5); Platelet Count 205 K/uL (130-400); RDW Coefficient of Variation 16.4 % (11.5-14.5); Red Blood Count 3.05 M/uL (4.2-5.4); White Blood Count 7.14 K/uL (4.8-10.8)
[2020-07-08 05:48] LABS: Polychromasia 1+
[2020-07-08 05:53] LABS: Calcium 8.1 mg/dl (8.5-10.1); Est GFR (African American) 65.3; Est GFR (Non-African American) 56.4
[2020-07-08] MEDS: SODIUM CHLORIDE 0.9% 1000ML 1,000 ML IV SCH (06:26)
[2020-07-08] MEDS: LEVOTHYROXINE SODIUM 100 MCG TABLET PO SCH (06:30)
[2020-07-08] MEDS: SACCHAROMYCES BOULARDII 250 MG CAP PO SCH (07:41)
[2020-07-08] MEDS: CALCIUM CARBONATE 1250MG TAB PO SCH (07:41)
[2020-07-08] MEDS: CHOLECALCIFEROL 1,000 UNITS 25 MCG TAB PO SCH (07:41)
[2020-07-08] MEDS: ASPIRIN 81 MG ECTAB PO SCH (07:42)
[2020-07-08] MEDS: lisinopril 10 MG TAB PO SCH (07:42)
[2020-07-08] MEDS: VERAPAMIL HCL 180 MG TABCR PO SCH (07:42)
[2020-07-08] MEDS: FERROUS SULFATE 325 MG TAB PO SCH (07:43)
[2020-07-08] MEDS: INSULIN ASPART 100 UNITS/ML 3 ML PEN SC SCH ×4 (09:00→21:13)
[2020-07-08] MEDS: INSULIN GLARGINE SOLOSTAR 100 UNITS/ML 3 ML PEN SC SCH ×2 (09:00→21:14)
[2020-07-08] MEDS: ZINC SULFATE 220 MG CAPSULE PO SCH (11:38)
[2020-07-08] MEDS: CIPROFLOXACIN / D5W 200 MG/100 ML BAG IV SCH (12:22)
--- NOTE | 2020-07-08 12:50 | Hospitalist Progress Note ---
Date of Service July 08, 2020 Assessment & Plan (1) Gram-negative bacteremia: Secondary to UTI WBC 22K on admission, now down to 8.5K (normalized) Blood cultx 06/25 positive for E. coli x2 Urine cltx positive for E. coli Abx switched to ceftriaxone on 06/28 Pt afebrile since 06/28 Switched to PO Ciprofloxacin 07/01 And the patient is switched back to intravenous ceftriaxone as of 07/02/2020 Repeat blood cultures on of this month have been negative Repeat urine culture is pending Reese ARRINGTON has been consulted-awaiting input and recommendation Continues to have fever at night without any more urinary symptoms Refugio generally weak and lethargic Will restart intravenous ciprofloxacin and will get blood cultures if recurrent fever No more fever and the patient has been feeling a lot better She has been feeling a lot better and no more fever for the last 72 hours Will continue the antibiotic for 3 more days (2) Sepsis: (3) Acute UTI: This is an 85-year-old female who presents with fall at home, and found to be septic, with non-ST elevation myocardial infarction. Sepsis. Meets criteria for sepsis with leukocytosis, tachycardia, elevated lactic acid, and urinary tract infection. IV fluids. Zosyn was started in the ER, which was continued. Patient also received vancomycin. Vancomycin was discontinued after blood cultures positive for gram-negative bacteria. Intravenous Zosyn was changed to intravenous ceftriaxone and subsequent antibiotic as above Temp elevated again in the afternoon (07/02) and also pt found to retain again about 700cc of urine, pt was straight cathed Urine cltx, blood cltx - ordered, Renal US ordered to eval for hydronephrosos/ poss. renal abscess, pt switched back to IV ceftriaxone. Reese ARRINGTON consult placed. Ultrasound did not show any hydronephrosis/abscess but he did show several left renal cyst and moderate bilateral renal cortical thinning 6 mm left renal calculus Denies any significant symptoms Velásquez has been discontinued Urine is growing fungi blood culture remains stable-will not start any antifungal as of yet She has been requiring catheter and will need outpatient urology appointment Clinically a lot better with some diarrhea, C. difficile has been negative We will continue Imodium as needed Failed trial to discontinue catheter Will have an urology appointment as an outpatient within 7 to 10 days to take care of the catheter Fall mostly from above. CT head shows left parieto-occipital contusion.PT/OT when stable. (4) Elevated troponin: Likely type II PR in setting of acute sepsis. She denies recent or recurrent anginal like symptoms. Currently symptom free. Mild nonspecific ST/ T wave abnormality noted on EKG, no acute changes. 2D echo obtained and cardiology consulted; mild concentric LV hypertrophy with EF of 55 to 60%, RV systolic function is normal, LA is mildly dilated, RA is normal, there is mild mitral regurgitation and grade 1 diastolic dysfunction Continue current cardiac medications (5) Paroxysmal A-fib: Atrial fibrillation, continue verapamil withholding parameters, and continue Coumadin. We will follow the PT/INR. Patient developed A. fib with RVR on June 27 pm. At this time she was also retaining urine, bladder scan about 700 cc. She was catheterized, and received small dose of IV metoprolol, and converted back to normal sinus rhythm. INR subtherapeutic on admission, INR is therapeutic now and is 2.4 as of07/03/2020 Heart rate is controlled Anemia Hgb 6.9 on 10 AM, likely dilutional from IVF no signs of acute bleed pt at this time denies any symptoms, such as chest pain, shortness of breath, dizziness/lightheadedness at this time pt declines blood transfusion and prefers to be monitored only Current Hgb 7.2 Will check hemoglobin again today and if it is below 7 will give blood transfusion When remains around 6.9-7.4 We will give 2 units of blood transfusion Chest x-ray last night did not show any congestion She received 2 units of PRBC and has been feeling a lot better since transfusion Has been feeling a lot better following blood transfusion Hemoglobin is a little down today at 7.7 likely due to receiving intravenous fluid for the last more than 24 hours No evidence of bleeding and the patient does not require to stay in the hospital to monitor hemoglobin Hypertension Continue verapamil, withholding parameters. Hold lisinopril for now. Monitor blood pressure. CRISPIN on CKD stage IV. Baseline creatinine around 1.5 to 1.7, on admission creatinine of 1.9. Received IV fluids. Cr normalized to 1.6 on 06/27 We will check PRP tomorrow-electrolytes and creatinine are normal History of diabetes. Hold glipizide. Blood sugars were running high on admission. We will place on Lantus 5 units b.i.d. and insulin sliding scale and follow the blood sugars closely. Hypothyroidism. Continue Synthroid. Hyperlipidemia. Continue statin. History of subarachnoid bleed. History of methicillin-resistant Staphylococcus aureus infection. History of a mild episode of depression. DVT prophylaxis, on Coumadin. INR therapeutic Discussed with daughter in detail Likely to be back to [facility] tomorrow-discussed with the daughter in detail The patient will be transferred to [facility] this afternoon Admission and Anticipated Discharge Date Admission Date: June 25, 2020 Subjective 07/03/2020 The patient was seen and examined in medical floor She complains to have swelling of the left foot with some pain in the left ankle Denies any more fever and/or chills Still has urinary symptoms especially incontinence at times 07/04/2020 The patient was seen and examined in medical floor She was noted to have fever last night of 38.2 C She will not be transferred to [facility] today 07/05/2020 The patient was seen and examined in medical floor She has been feeling extremely weak and lethargic Denies any significant pain No fever and/or chills throughout this morning 07/06/2020 The patient was seen and examined in medical floor She has been much better today She is smiling and denies any symptoms Her weakness is much improved following blood transfusion 07/07/2020 The patient was seen and examined in medical floor She is out of bed on a chair and denies any symptoms except incontinence of stool No more fever and chills for the last 48 hours 07/08/2020 The patient was seen and examined in medical floor She has been feeling a lot better today Denies any significant symptoms Review of Systems Review of Systems: All systems reviewed and are unremarkable except as noted below Genitourinary: no dysuria, no urinary hesitancy and no urinary incontinence Musculoskeletal: Minimal pain and swelling involving the left foot and left ankle-resolved Neurologic: + generalized weakness (Much improved) Physical Exam Physical Exam: Lying in bed comfortably but looks very ill and fatigue Constitutional: well developed, well nourished and + ill appearing; no acute distress Eyes: PERRL, conjunctivae normal, anicteric sclerae ENMT: external ear and nose normal, oropharynx normal Neck: trachea midline, no thyromegaly Respiratory: normal respiratory effort; no respiratory distress Auscultation: lungs clear to auscultation bilaterally Cardiovascular: Rate/Rhythm: regular rate and regular rhythm Heart Sounds: no murmur Gastrointestinal (Abdomen): Inspection/Auscultation: abdomen normal to inspection; + abnormal bowel sounds Percussion/Palpation: abdomen soft; abdomen nontender Musculoskeletal: No acute arthritis involving any joint Neurologic: moves all extremities; no focal motor deficits Psychiatric: A+Ox3, euthymic affect Lymphatic: no cervical or axillary lymphadenopathy Results & Data Results & Data ([facility]) Vital Signs (Past 12 Hours) Vital Signs Temp Pulse Resp BP Pulse Ox 07/08/20 07:21 36.6 C 73 16 123/58 L 93 Laboratory Results Short CBC 07/08/20 Range/Units 05:07 WBC 7.14 (4.8-10.8) K/uL Hgb 7.7 L (12.0-16.0) g/dL Hct 24.6 L (37-47) % Plt Count 205 (130-400) K/uL BMP 07/08/20 05:07 Sodium 138 Potassium 4.0 Chloride 108 H Carbon Dioxide 22 BUN 29 H Creatinine 0.92 Glucose 170 H Calcium 8.1 L Medications Administered Current Inpatient Medications Acetaminophen (Acetaminophen 325 Mg Tab) 650 mg PO Q4H PRN PRN Reason: Pain or Fever Stop: 07/26/20 01:02 Last Admin: 07/06/20 22:51 Dose: 650 mg Documented by: Aspirin (Aspirin 81 Mg Ectab) 81 mg PO MoWeFr@0900 NO Stop: 07/26/20 08:59 Last Admin: 07/08/20 07:42 Dose: 81 mg Documented by: Calcium Carbonate (Calcium Carbonate 1250mg Tab) 1,250 mg PO DAILY NO Stop: 07/26/20 08:59 Last Admin: 07/08/20 07:41 Dose: 1,250 mg Documented by: Ciprofloxacin (Ciprofloxacin 500 Mg Tab) 500 mg PO BID NO Stop: 07/15/20 08:59 Last Admin: 07/02/20 09:49 Dose: 500 mg Documented by: Dextrose (Dextrose 50% 50 Ml Syringe) 25 - 50 ml IV UD PRN; Protocol PRN Reason: Hypoglycemia Protocol Stop: 07/26/20 02:44 Docusate Sodium (Docusate Sodium 100 Mg Cap) 100 mg PO QPM [facility] Stop: 07/26/20 20:59 Last Admin: 07/07/20 21:05 Dose: 100 mg Documented by: Ferrous Sulfate (Ferrous Sulfate 325 Mg Tab) 325 mg PO QAM NO Stop: 07/26/20 08:59 Last Admin: 07/08/20 07:43 Dose: 325 mg Documented by: Fluticasone Propionate (Fluticasone Propionate Na Spr 16 Gm Btl) 2 sprays NA HS PRN PRN Reason: Nasal Congestion Stop: 07/26/20 01:02 Glucagon (Glucagon For Inj 1 Mg Vial) 1 mg IM UD PRN; Protocol PRN Reason: Hypoglycemia Protocol Stop: 07/26/20 02:44 Glucose (Glucose 40% Gel 15 Gm Tube) 15 - 30 gm PO UD PRN; Protocol PRN Reason: Hypoglycemia Protocol Stop: 07/26/20 02:44 Glucose (Glucose 10 Tabs/Tube) 4 - 8 tabs PO UD PRN; Protocol PRN Reason: Hypoglycemia Protocol Stop: 07/26/20 02:44 Ciprofloxacin Lactate (Cipro / D5w) 200 mg in 100 mls @ 100 mls/hr IV Q12H NO; Protocol Stop: 07/15/20 12:59 Last Admin: 07/08/20 12:22 Dose: 100 mls/hr Documented by: Insulin Aspart (Insulin Aspart 100 Units/Ml 3 Ml Pen) 0 units SC ACHS [facility] Stop: 07/26/20 02:44 Last Admin: 07/08/20 12:27 Dose: 6 units Documented by: Insulin Glargine (Insulin Glargine Solostar 100 Units/Ml 3 Ml Pen) 8 units SC BID [facility] Stop: 08/03/20 08:59 Last Admin: 07/08/20 09:00 Dose: 8 units Documented by: Levothyroxine Sodium (Levothyroxine Sodium 100 Mcg Tablet) 100 mcg PO DAILYBB [facility] Stop: 07/26/20 06:29 Last Admin: 07/08/20 06:30 Dose: 100 mcg Documented by: Lisinopril (Lisinopril 10 Mg Tab) 10 mg PO DAILY [facility] Stop: 07/26/20 08:59 Last Admin: 07/08/20 07:42 Dose: 10 mg Documented by: Loperamide HCl (Loperamide Hcl 2 Mg Cap) 2 mg PO Q2H PRN PRN Reason: Loose stool Stop: 08/03/20 11:59 Miconazole Nitrate (Miconazole Nitrate Powder 43 Gm) 1 appln EXT PRN PRN PRN Reason: Affected Skin Folds Stop: 08/04/20 07:14 Last Admin: 07/06/20 08:10 Dose: 1 appln Documented by: Miscellaneous (Carbohydrates For Hypoglycemia ) 15 - 30 gm PO UD PRN PRN Reason: Hypoglycemia Treatment Stop: 07/26/20 02:44 Nitroglycerin (Nitroglycerin Sl 0.4 Mg/Tab Tab) 0.4 mg SL UD PRN PRN Reason: Chest Pain Stop: 07/26/20 01:02 Ondansetron HCl (Ondansetron Inj 2 Mg/Ml 2 Ml Vial) 4 mg IV Q6H PRN PRN Reason: Nausea Stop: 07/26/20 01:02 Rosuvastatin Calcium (Rosuvastatin Calcium 10 Mg Tab) 10 mg PO [facility] Stop: 07/26/20 20:59 Last Admin: 07/07/20 20:53 Dose: 10 mg Documented by: Saccharomyces Boulardii (Saccharomyces Boulardii 250 Mg Cap) 250 mg PO DAILY [facility] Stop: 07/27/20 19:29 Last Admin: 07/08/20 07:41 Dose: 250 mg Documented by: Tamsulosin HCl (Tamsulosin Hcl 0.4 Mg Cap) 0.4 mg PO [facility] Stop: 07/26/20 20:59 Last Admin: 07/07/20 20:54 Dose: 0.4 mg Documented by: Tizanidine HCl (Tizanidine Hcl 4 Mg Tablet) 4 mg PO Q8H PRN PRN Reason: Muscle Pain Stop: 07/26/20 01:02 Verapamil HCl (Verapamil Hcl 180 Mg Tabcr) 180 mg PO [facility] Stop: 07/26/20 08:59 Last Admin: 07/08/20 07:42 Dose: 180 mg Documented by: Vitamin D (Cholecalciferol 1,000 Units 25 Mcg Tab) 2,000 units PO QAM [facility] Stop: 07/26/20 08:59 Last Admin: 07/08/20 07:41 Dose: 2,000 units Documented by: Warfarin Sodium (Warfarin Sod 2 Mg Tab) 2 mg PO SuTuWeThFrSa@1600 [facility] Stop: 07/26/20 15:59 Last Admin: 07/07/20 15:59 Dose: 2 mg Documented by: Warfarin Sodium (Warfarin Sod 4 Mg Tab) 4 mg PO Mo@1600 [facility] Stop: 07/31/20 15:59 Last Admin: 07/01/20 16:21 Dose: 4 mg Documented by: Zinc Sulfate (Zinc Sulfate 220 Mg Capsule) 220 mg PO QDL NO Stop: 07/26/20 11:29 Last Admin: 07/08/20 11:38 Dose: 220 mg Documented by:
[2020-07-08] MEDS: WARFARIN SOD 4 MG TAB PO SCH (16:17)
[2020-07-08] MEDS: ROSUVASTATIN CALCIUM 10 MG TAB PO SCH (21:09)
[2020-07-08] MEDS: DOCUSATE SODIUM 100 MG CAP PO SCH (21:09)
[2020-07-08] MEDS: TAMSULOSIN HCL 0.4 MG CAP PO SCH (21:09)
[2020-07-09] MEDS: CIPROFLOXACIN / D5W 200 MG/100 ML BAG IV SCH ×2 (01:19→12:11)
[2020-07-09] MEDS: LEVOTHYROXINE SODIUM 100 MCG TABLET PO SCH (05:35)
[2020-07-09] MEDS: FERROUS SULFATE 325 MG TAB PO SCH ×2 (07:47→07:50)
[2020-07-09] MEDS: VERAPAMIL HCL 180 MG TABCR PO SCH (07:47)
[2020-07-09] MEDS: lisinopril 10 MG TAB PO SCH (07:47)
[2020-07-09] MEDS: CALCIUM CARBONATE 1250MG TAB PO SCH (07:48)
[2020-07-09] MEDS: CHOLECALCIFEROL 1,000 UNITS 25 MCG TAB PO SCH (07:48)
[2020-07-09] MEDS: SACCHAROMYCES BOULARDII 250 MG CAP PO SCH (07:48)
[2020-07-09 08:38] LABS: Basophils # (auto) 0.02 K/uL (0-0.2); Basophils % (auto) 0.2 %; Eosinophils # (auto) 0.17 K/uL (0-0.5); Hematocrit (blood only) 30.4 % (37-47); Hemoglobin 9.5 g/dL (12.0-16.0); Immature Granulocytes # (auto) 0.12 K/uL (0.00-0.02); Immature Granulocytes % (auto) 1.4 %; Lymphocytes # (auto) 2.88 K/uL (1.2-3.4); Lymphocytes % (auto) 33.8 %; Mean Corpuscular Hemoglobin 25.6 pg (25-34); Mean Corpuscular Hgb Conc 31.3 g/dL (32-36); Mean Corpuscular Volume 81.9 fL (80-100); Mean Platelet Volume 9.4 fL (7.4-10.4); Monocytes # (auto) 0.64 K/uL (0.11-0.59); Monocytes % (auto) 7.5 %; Neutrophils # (auto) 4.68 K/uL (1.4-6.5); Neutrophils % (auto) 55.1 %; Platelet Count 288 K/uL (130-400); RDW Coefficient of Variation 16.6 % (11.5-14.5); RDW Standard Deviation 49.7 fL (36.4-46.3); Red Blood Count 3.71 M/uL (4.2-5.4); White Blood Count 8.51 K/uL (4.8-10.8)
[2020-07-09] MEDS: INSULIN ASPART 100 UNITS/ML 3 ML PEN SC SCH ×2 (09:00→13:24)
[2020-07-09] MEDS: INSULIN GLARGINE SOLOSTAR 100 UNITS/ML 3 ML PEN SC SCH (09:01)
[2020-07-09 09:04] LABS: Creatinine Clr Calc Pharmacy 32.4 ml/min; Est GFR (African American) 55.7; Est GFR (Non-African American) 48.1
[2020-07-09] MEDS: ZINC SULFATE 220 MG CAPSULE PO SCH (11:09)
--- NOTE | 2020-07-09 13:15 | Hospitalist Progress Note ---
Date of Service July 09, 2020 Assessment & Plan (1) Gram-negative bacteremia: Secondary to UTI WBC 22K on admission, now down to 8.5K (normalized) Blood cultx 06/25 positive for E. coli x2 Urine cltx positive for E. coli Abx switched to ceftriaxone on 06/28 Pt afebrile since 06/28 Switched to PO Ciprofloxacin 07/01 And the patient is switched back to intravenous ceftriaxone as of 07/02/2020 Repeat blood cultures on of this month have been negative Repeat urine culture is pending Reese ARRINGTON has been consulted-awaiting input and recommendation Continues to have fever at night without any more urinary symptoms Refugio generally weak and lethargic Will restart intravenous ciprofloxacin and will get blood cultures if recurrent fever No more fever and the patient has been feeling a lot better She has been feeling a lot better and no more fever for the last 72 hours Has had a total of 14 days of antibiotic and she has significant fever on of this month Continue 2 more days of oral Cipro. (2) Sepsis: (3) Acute UTI: This is an 85-year-old female who presents with fall at home, and found to be septic, with non-ST elevation myocardial infarction. Sepsis. Meets criteria for sepsis with leukocytosis, tachycardia, elevated lactic acid, and urinary tract infection. IV fluids. Zosyn was started in the ER, which was continued. Patient also received vancomycin. Vancomycin was discontinued after blood cultures positive for gram-negative bacteria. Intravenous Zosyn was changed to intravenous ceftriaxone and subsequent antibiotic as above Temp elevated again in the afternoon (07/02) and also pt found to retain again about 700cc of urine, pt was straight cathed Urine cltx, blood cltx - ordered, Renal US ordered to eval for hydronephrosos/ poss. renal abscess, pt switched back to IV ceftriaxone. Reese ARRINGTON consult placed. Ultrasound did not show any hydronephrosis/abscess but he did show several left renal cyst and moderate bilateral renal cortical thinning 6 mm left renal calculus Denies any significant symptoms Velásquez has been discontinued Urine is growing fungi blood culture remains stable-will not start any antifungal as of yet She has been requiring catheter and will need outpatient urology appointment Clinically a lot better with some diarrhea, C. difficile has been negative We will continue Imodium as needed Failed trial to discontinue catheter Will have an urology appointment as an outpatient within 7 to 10 days to take care of the catheter Fall mostly from above. CT head shows left parieto-occipital contusion.PT/OT when stable. (4) Elevated troponin: Likely type II MS in setting of acute sepsis. She denies recent or recurrent anginal like symptoms. Currently symptom free. Mild nonspecific ST/ T wave abnormality noted on EKG, no acute changes. 2D echo obtained and cardiology consulted; mild concentric LV hypertrophy with EF of 55 to 60%, RV systolic function is normal, LA is mildly dilated, RA is normal, there is mild mitral regurgitation and grade 1 diastolic dysfunction Continue current cardiac medications (5) Paroxysmal A-fib: Atrial fibrillation, continue verapamil withholding parameters, and continue Coumadin. We will follow the PT/INR. Patient developed A. fib with RVR on June 27 pm. At this time she was also retaining urine, bladder scan about 700 cc. She was catheterized, and received small dose of IV metoprolol, and converted back to normal sinus rhythm. INR subtherapeutic on admission, INR is therapeutic now and is 2.4 as of07/03/2020 Heart rate is controlled Anemia Hgb 6.9 on 10 AM, likely dilutional from IVF no signs of acute bleed pt at this time denies any symptoms, such as chest pain, shortness of breath, dizziness/lightheadedness at this time pt declines blood transfusion and prefers to be monitored only Current Hgb 7.2 Will check hemoglobin again today and if it is below 7 will give blood transfusion When remains around 6.9-7.4 We will give 2 units of blood transfusion Chest x-ray last night did not show any congestion She received 2 units of PRBC and has been feeling a lot better since transfusion Has been feeling a lot better following blood transfusion Hemoglobin is a little down today at 7.7 likely due to receiving intravenous fluid for the last more than 24 hours No evidence of bleeding and the patient does not require to stay in the hospital to monitor hemoglobin 0.5 as of today Hypertension Continue verapamil, withholding parameters. Hold lisinopril for now. Monitor bl ood pressure. CRISPIN on CKD stage IV. Baseline creatinine around 1.5 to 1.7, on admission creatinine of 1.9. Received IV fluids. Cr normalized to 1.6 on 06/27 We will check PRP tomorrow-electrolytes and creatinine are normal History of diabetes. Hold glipizide. Blood sugars were running high on admission. We will place on Lantus 5 units b.i.d. and insulin sliding scale and follow the blood sugars closely. Hypothyroidism. Continue Synthroid. Hyperlipidemia. Continue statin. History of subarachnoid bleed. History of methicillin-resistant Staphylococcus aureus infection. History of a mild episode of depression. DVT prophylaxis, on Coumadin. INR therapeutic Discussed with daughter in detail Likely to [facility]-discussed with the daughter in detail Discussed with the daughter and she will be transferred to [facility] this afternoon Admission and Anticipated Discharge Date Admission Date: June 25, 2020 Subjective 07/03/2020 The patient was seen and examined in medical floor She complains to have swelling of the left foot with some pain in the left ankle Denies any more fever and/or chills Still has urinary symptoms especially incontinence at times 07/04/2020 The patient was seen and examined in medical floor She was noted to have fever last night of 38.2 C She will not be transferred to [facility] today 07/05/2020 The patient was seen and examined in medical floor She has been feeling extremely weak and lethargic Denies any significant pain No fever and/or chills throughout this morning 07/06/2020 The patient was seen and examined in medical floor She has been much better today She is smiling and denies any symptoms Her weakness is much improved following blood transfusion 07/07/2020 The patient was seen and examined in medical floor She is out of bed on a chair and denies any symptoms except incontinence of stool No more fever and chills for the last 48 hours 07/08/2020 The patient was seen and examined in medical floor She has been feeling a lot better today Denies any significant symptoms 07/09/2020 The patient was seen and examined in medical floor She has been the best as of today and denies any significant symptoms She has had physical therapy and recommended that she can get back to [facility] today Her only issue was with Velásquez catheter Review of Systems Review of Systems: All systems reviewed and are unremarkable except as noted below Genitourinary: Urinary retention Musculoskeletal: Minimal pain and swelling involving the left foot and left ankle-resolved Neurologic: + generalized weakness (Much improved) Physical Exam Physical Exam: Lying in bed comfortably but looks very ill and fatigue Constitutional: well developed, well nourished and + ill appearing; no acute distress Eyes: PERRL, conjunctivae normal, anicteric sclerae ENMT: external ear and nose normal, oropharynx normal Neck: trachea midline, no thyromegaly Respiratory: normal respiratory effort; no respiratory distress Auscultation: lungs clear to auscultation bilaterally Cardiovascular: Rate/Rhythm: regular rate and regular rhythm Heart Sounds: no murmur Gastrointestinal (Abdomen): Inspection/Auscultation: abdomen normal to inspection; + abnormal bowel sounds Percussion/Palpation: abdomen soft; abdomen nontender Musculoskeletal: No acute arthritis involving any joint Neurologic: moves all extremities; no focal motor deficits Psychiatric: A+Ox3, euthymic affect Lymphatic: no cervical or axillary lymphadenopathy Results & Data Results & Data ([facility]) Vital Signs (Past 12 Hours) Vital Signs Temp Pulse Resp BP Pulse Ox 07/09/20 12:18 36.8 C 76 18 136/63 96 07/09/20 07:47 36.8 C 76 18 136/63 96 Laboratory Results Short CBC 07/09/20 Range/Units 08:21 WBC 8.51 (4.8-10.8) K/uL Hgb 9.5 L (12.0-16.0) g/dL Hct 30.4 L (37-47) % Plt Count 288 (130-400) K/uL BMP 07/09/20 08:21 Creatinine 1.05 Medications Administered Current Inpatient Medications Acetaminophen (Acetaminophen 325 Mg Tab) 650 mg PO Q4H PRN PRN Reason: Pain or Fever Stop: 07/26/20 01:02 Last Admin: 07/06/20 22:51 Dose: 650 mg Documented by: Aspirin (Aspirin 81 Mg Ectab) 81 mg PO MoWeFr@0900 [facility] Stop: 07/26/20 08:59 Last Admin: 07/08/20 07:42 Dose: 81 mg Documented by: Calcium Carbonate (Calcium Carbonate 1250mg Tab) 1,250 mg PO DAILY [facility] Stop: 07/26/20 08:59 Last Admin: 07/09/20 07:48 Dose: 1,250 mg Documented by: Ciprofloxacin (Ciprofloxacin 500 Mg Tab) 500 mg PO BID [facility] Stop: 07/15/20 08:59 Last Admin: 07/02/20 09:49 Dose: 500 mg Documented by: Dextrose (Dextrose 50% 50 Ml Syringe) 25 - 50 ml IV UD PRN; Protocol PRN Reason: Hypoglycemia Protocol Stop: 07/26/20 02:44 Docusate Sodium (Docusate Sodium 100 Mg Cap) 100 mg PO QPM [facility] Stop: 07/26/20 20:59 Last Admin: 07/08/20 21:09 Dose: Not Given Documented by: Ferrous Sulfate (Ferrous Sulfate 325 Mg Tab) 325 mg PO QAM [facility] Stop: 07/26/20 08:59 Last Admin: 07/09/20 07:50 Dose: 325 mg Documented by: Fluticasone Propionate (Fluticasone Propionate Na Spr 16 Gm Btl) 2 sprays NA HS PRN PRN Reason: Nasal Congestion Stop: 07/26/20 01:02 Glucagon (Glucagon For Inj 1 Mg Vial) 1 mg IM UD PRN; Protocol PRN Reason: Hypoglycemia Protocol Stop: 07/26/20 02:44 Glucose (Glucose 40% Gel 15 Gm Tube) 15 - 30 gm PO UD PRN; Protocol PRN Reason: Hypoglycemia Protocol Stop: 07/26/20 02:44 Glucose (Glucose 10 Tabs/Tube) 4 - 8 tabs PO UD PRN; Protocol PRN Reason: Hypoglycemia Protocol Stop: 07/26/20 02:44 Ciprofloxacin Lactate (Cipro / D5w) 200 mg in 100 mls @ 100 mls/hr IV Q12H [facility]; Protocol Stop: 07/15/20 12:59 Last Admin: 07/09/20 12:11 Dose: 100 mls/hr Documented by: Insulin Aspart (Insulin Aspart 100 Units/Ml 3 Ml Pen) 0 units SC ACHS [facility] Stop: 07/26/20 02:44 Last Admin: 07/09/20 09:00 Dose: 10 units Documented by: Insulin Glargine (Insulin Glargine Solostar 100 Units/Ml 3 Ml Pen) 8 units SC BID [facility] Stop: 08/03/20 08:59 Last Admin: 07/09/20 09:01 Dose: 8 units Documented by: Levothyroxine Sodium (Levothyroxine Sodium 100 Mcg Tablet) 100 mcg PO DAILYBB [facility] Stop: 07/26/20 06:29 Last Admin: 07/09/20 05:35 Dose: 100 mcg Documented by: Lisinopril (Lisinopril 10 Mg Tab) 10 mg PO DAILY [facility] Stop: 07/26/20 08:59 Last Admin: 07/09/20 07:47 Dose: 10 mg Documented by: Loperamide HCl (Loperamide Hcl 2 Mg Cap) 2 mg PO Q2H PRN PRN Reason: Loose stool Stop: 08/03/20 11:59 Miconazole Nitrate (Miconazole Nitrate Powder 43 Gm) 1 appln EXT PRN PRN PRN Reason: Affected Skin Folds Stop: 08/04/20 07:14 Last Admin: 07/06/20 08:10 Dose: 1 appln Documented by: Miscellaneous (Carbohydrates For Hypoglycemia ) 15 - 30 gm PO UD PRN PRN Reason: Hypoglycemia Treatment Stop: 07/26/20 02:44 Nitroglycerin (Nitroglycerin Sl 0.4 Mg/Tab Tab) 0.4 mg SL UD PRN PRN Reason: Chest Pain Stop: 07/26/20 01:02 Ondansetron HCl (Ondansetron Inj 2 Mg/Ml 2 Ml Vial) 4 mg IV Q6H PRN PRN Reason: Nausea Stop: 07/26/20 01:02 Rosuvastatin Calcium (Rosuvastatin Calcium 10 Mg Tab) [address] [facility] Stop: 07/26/20 20:59 Last Admin: 07/08/20 21:09 Dose: 10 mg Documented by: Saccharomyces Boulardii (Saccharomyces Boulardii 250 Mg Cap) 250 mg PO DAILY [facility] Stop: 07/27/20 19:29 Last Admin: 07/09/20 07:48 Dose: 250 mg Documented by: Tamsulosin HCl (Tamsulosin Hcl 0.4 Mg Cap) 0.4 mg PO HS [facility] Stop: 07/26/20 20:59 Last Admin: 07/08/20 21:09 Dose: 0.4 mg Documented by: Tizanidine HCl (Tizanidine Hcl 4 Mg Tablet) 4 mg PO Q8H PRN PRN Reason: Muscle Pain Stop: 07/26/20 01:02 Verapamil HCl (Verapamil Hcl 180 Mg Tabcr) [facility] [place] Stop: 07/26/20 08:59 Last Admin: 07/09/20 07:47 Dose: 180 mg Documented by: Vitamin D (Cholecalciferol 1,000 Units 25 Mcg Tab) 2,000 units PO QAM NO Stop: 07/26/20 08:59 Last Admin: 07/09/20 07:48 Dose: 2,000 units Documented by: Warfarin Sodium (Warfarin Sod 2 Mg Tab) 2 mg PO SuTuWeThFrSa@1600 [facility] Stop: 07/26/20 15:59 Last Admin: 07/07/20 15:59 Dose: 2 mg Documented by: Warfarin Sodium (Warfarin Sod 4 Mg Tab) 4 mg PO Mo@1600 [facility] Stop: 07/31/20 15:59 Last Admin: 07/08/20 16:17 Dose: 4 mg Documented by: Zinc Sulfate (Zinc Sulfate 220 Mg Capsule) 220 mg PO QDL [facility] Stop: 07/26/20 11:29 Last Admin: 07/09/20 11:09 Dose: 220 mg Documented by:
[2020-07-09] MEDS: WARFARIN SOD 2 MG TAB PO SCH (15:39)
--- NOTE | 2020-07-09 18:45 | Discharge Summary ---
Date of Service July 09, 2020 Admission HPI Per Admitting Provider DICTATED BY: Luis Brooks MD DATE OF ADMISSION: 06/25/2020 CHIEF COMPLAINT: Fall at home and found to be having UTI and sepsis and non-ST elevation myocardial infarction. HISTORY OF PRESENT ILLNESS: This is an 85-year-old female with past medical history significant for type 2 diabetes, hypothyroidism, chronic kidney disease stage IV, paroxysmal atrial fibrillation, hypertension, history of subarachnoid bleed, history of MRSA infection, history of depression, statin intolerance, who lives alone, ambulates with a walker, was brought in by daughter because she fell as she slid from the chair. The patient states she lives alone. Daughter lives close by. She gets help 3 times a week. Daughter was visiting her. She was sleeping on the chair when she slid and fell down. At that time, daughter thought she might be on weak on the left side and thought she may be having a stroke and she was brought in here. The patient except for urinary symptoms, she said she was fine and she wanted to go back home, but [place] [id number] and her troponin was 1.1 and urine was positive and lactic acid was 3.5. She was slightly tachycardic when she came in, but blood pressure was okay and she was saturating okay on room air. Currently, the patient denies any other complaints. She thought she might have UTI, but she does not know how long she has symptoms. Denies any burning micturitions. Possibly increased urination. Denies any other problems, no chest pain, no shortness of breath, no cough. Appetite is okay. No headache, no blurred visions. Hard of hearing. She always has some runny nose and some slight clearing of throat from the postnasal drip. No difficulty swallowing. No nausea, no abdominal pain. No swelling in the legs. The patient says when she slipped from the chair, there was no loss of consciousness. Admission Exam Per Admitting Provider GENERAL: The patient is old and frail, not in acute distress.hard of hearing. VITAL SIGNS: Temperature 36.6, pulse 100, respiratory rate 16, blood pressure 125/62, oxygen 96% on room air. HEENT: Pupils equal, round, and reactive to light. No pallor, no icterus. Oral mucosa moist. NECK: No JVD, no neck masses. CARDIOVASCULAR: S1, S2 heard. Tachycardia. No murmur, no gallop. RESPIRATORY SYSTEM: Normal AP diameter. No accessory muscle use. No wheezing, no crackles. ABDOMEN: Soft, bowel sounds present, nontender. No distention. CENTRAL NERVOUS SYSTEM: Cranial nerves II-XII grossly intact, no facial droop, speech clear. nonfocal. Power 4/5 to 5/5 in all extremities. EXTREMITIES: No edema, no erythema. Principal Diagnosis Gram-negative bacteremia secondary to UTI, paroxysmal atrial fibrillation, chronic anemia, hypertension, hypothyroidism Discharge Exam Constitutional well developed, well nourished and + ill appearing; no acute distress Eyes PERRL, conjunctivae normal, anicteric sclerae ENMT external ear and nose normal, oropharynx normal Neck trachea midline, no thyromegaly Respiratory normal respiratory effort; no respiratory distress Auscultation: lungs clear to auscultation bilaterally Cardiovascular Rate/Rhythm: regular rate and regular rhythm Heart Sounds: no murmur Gastrointestinal (Abdomen) Inspection/Auscultation: abdomen normal to inspection; + abnormal bowel sounds Percussion/Palpation: abdomen soft; abdomen nontender Neurologic moves all extremities; no focal motor deficits Psychiatric A+Ox3, euthymic affect Lymphatic no cervical or axillary lymphadenopathy Discharge Data Allergies Allergy/AdvReac Type Severity Reaction Status Date / Time Bactrim Allergy Intermediate Rash Verified 02/21/18 20:57 sulfamethoxazole Allergy Intermediate Rash Verified 12/25/19 19:47 trimethoprim Allergy Intermediate Rash Verified 12/25/19 19:47 tetanus toxoid, adsorbed Allergy Unknown HIVES Verified 12/25/19 19:47 tetracycline Allergy Unknown hives Verified 12/25/19 19:47 rosuvastatin AdvReac Intermediate Muscle Verified 12/25/19 19:47 stiffness Crestor TABS Allergy Unknown Uncoded 12/25/19 19:47 Consultations 06/25/20 20:38 ED Decision to Admit Stat 06/26/20 01:03 Consult Case Management - Discharge Planning Routine 06/26/20 08:00 Consult Cardiology Routine 07/02/20 17:50 Consult Infectious Diseases Routine Ordered Studies 06/25/20 19:10 CT head/brain wo con Stat 07/02/20 01:34 US venous doppler LE LT Urgent 07/02/20 17:49 US renal/blad retro comp Routine Hospital Course (1) Gram-negative bacteremia: Secondary to UTI WBC 22K on admission, now down to 8.5K (normalized) Blood cultx 06/25 positive for E. coli x2 Urine cltx positive for E. coli Abx switched to ceftriaxone on 06/28 Pt afebrile since 06/28 Switched to PO Ciprofloxacin 07/01 And the patient is switched back to intravenous ceftriaxone as of 07/02/2020 Repeat blood cultures on of this month have been negative Repeat urine culture is pending Reese ARRINGTON has been consulted-awaiting input and recommendation Continues to have fever at night without any more urinary symptoms Refugio generally weak and lethargic Will restart intravenous ciprofloxacin and will get blood cultures if recurrent fever No more fever and the patient has been feeling a lot better She has been feeling a lot better and no more fever for the last 72 hours Has had a total of 14 days of antibiotic and she has significant fever on of this month Continue 2 more days of oral Cipro. (2) Sepsis: (3) Acute UTI: This is an 85-year-old female who presents with fall at home, and found to be septic, with non-ST elevation myocardial infarction. Sepsis. Meets criteria for sepsis with leukocytosis, tachycardia, elevated lactic acid, and urinary tract infection. IV fluids. Zosyn was started in the ER, which was continued. Patient also received vancomycin. Vancomycin was discontinued after blood cultures positive for gram-negative bacteria. Intravenous Zosyn was changed to intravenous ceftriaxone and subsequent antibi otic as above Temp elevated again in the afternoon (07/02) and also pt found to retain again about 700cc of urine, pt was straight cathed Urine cltx, blood cltx - ordered, Renal US ordered to eval for hydronephrosos/ poss. renal abscess, pt switched back to IV ceftriaxone. Reese ARRINGTON consult placed. Ultrasound did not show any hydronephrosis/abscess but he did show several left renal cyst and moderate bilateral renal cortical thinning 6 mm left renal calculus Denies any significant symptoms Velásquez has been discontinued Urine is growing fungi blood culture remains stable-will not start any ant ifungal as of yet She has been requiring catheter and will need outpatient urology appointment Clinically a lot better with some diarrhea, C. difficile has been negative We will continue Imodium as needed Failed trial to discontinue catheter Will have an urology appointment as an outpatient within 7 to 10 days to take care of the catheter Fall mostly from above. CT head shows left parieto-occipital contusion.PT/OT when stable. (4) Elevated troponin: Likely type II NM in setting of acute sepsis. She denies recent or recurrent anginal like symptoms. Currently symptom free. Mild nonspecific ST/ T wave abnormality noted on EKG, no acute changes. 2D echo obtained and cardiology consulted; mild concentric LV hypertrophy with EF of 55 to 60%, RV systolic function is normal, LA is mildly dilated, RA is normal, there is mild mitral regurgitation and grade 1 diastolic dysfunction Continue current cardiac medications (5) Paroxysmal A-fib: Atrial fibrillation, continue verapamil withholding parameters, and continue Coumadin. We will follow the PT/INR. Patient developed A. fib with RVR on June 27 pm. At this time she was also retaining urine, bladder scan about 700 cc. She was catheterized, and received small dose of IV metoprolol, and converted back to normal sinus rhythm. INR subtherapeutic on admission, INR is therapeutic now and is 2.4 as of07/03/2020 Heart rate is controlled Anemia Hgb 6.9 on 06/28 AM, likely dilutional from IVF no signs of acute bleed pt at this time denies any symptoms, such as chest pain, shortness of breath, dizziness/lightheadedness at this time pt declines blood transfusion and prefers to be monitored only Current Hgb 7.2 Will check hemoglobin again today and if it is below 7 will give blood transfusion When remains around 6.9-7.4 We will give 2 units of blood transfusion Chest x-ray last night did not show any congestion She received 2 units of PRBC and has been feeling a lot better since transfusion Has been feeling a lot better following blood transfusion Hemoglobin is a little down today at 7.7 likely due to receiving intravenous fluid for the last more than 24 hours No evidence of bleeding and the patient does not require to stay in the hospital to monitor hemoglobin 0.5 as of today Hypertension Continue verapamil, withholding parameters. Hold lisinopril for now. Monitor blood pressure. CRISPIN on CKD stage IV. Baseline creatinine around 1.5 to 1.7, on admission creatinine of 1.9. Received IV fluids. Cr normalized to 1.6 on 06/27 We will check PRP tomorrow-electrolytes and creatinine are normal History of diabetes. Hold glipizide. Blood sugars were running high on admission. We will place on Lantus 5 units b.i.d. and insulin sliding scale and follow the blood sugars closely. Hypothyroidism. Continue Synthroid. Hyperlipidemia. Continue statin. History of subarachnoid bleed. History of methicillin-resistant Staphylococcus aureus infection. History of a mild episode of depression. DVT prophylaxis, on Coumadin. INR therapeutic Discussed with daughter in detail Likely to be back to [facility] tomorrow-discussed with the daughter in detail Discussed with the daughter and she will be transferred to [facility] this afternoon Total Time Total Time Spent Total Time Spent (In Minutes): 35 minutes Total Time Includes: Examination of the Patient, Discharge Planning, Medication Reconciliation and Communication With Other Providers Discharge Plan Discharge Items Patient Disposition: Transfer Residential Fac Reason For Visit: FALL Discharge Diagnosis: Gram-negative bacteremia secondary to UTI, paroxysmal atrial fibrillation, chronic anemia, hypertension, hypothyroidism Condition on Discharge: Good Activity: Resume your previous activity Non-emergency contact: Primary Care Provider Call non-emergency contact if: you have any medication questions and your symptoms worsen Follow-up/Referrals: Luis Whalen, DO [Primary Care Provider] - (Please make an appointment with your primary care physician within 7 days ) Diet: Carb Consistent or DM2 Addtl Attending Provider Instructions: Please take precaution to avoid falls Try to drink more fluid Dr. Del Real"s office will call with an appointment Pending Studies at Discharge: No Stand-Alone Forms: My [facility] Skilled Items Patient informed of condition?: Yes DNR: No Discharge Level of Care: Skilled Communicable Disease: No Discharge Prognosis: Stable Lines: None Urinary Catheter: Yes Medications and DC Order Prescriptions: New loperamide 2 mg Capsule 2 mg PO Q2H PRN (Reason: diarrhea) 7 Days Qty: 30 RF: 0 lisinopril 10 mg Tablet 10 mg PO DAILY 30 Days Qty: 30 RF: 0 Lactinex 1 million cell tablet,chewable 1 tab PO TID Qty: 30 RF: 0 ciprofloxacin HCl [Cipro] 250 mg tablet 250 mg PO BID Qty: 6 RF: 0 Continued tamsulosin [Flomax] 0.4 mg capsule 0.4 mg PO HS Qty: 90 RF: 3 tizanidine 4 mg tablet 4 mg PO Q8H PRN (Reason: Muscle Pain) RF: 0 verapamil 180 mg tablet extended release 180 mg PO QAM RF: 0 aspirin [Aspirin Low Dose] 81 mg Tablet,Delayed Release (Dr/Ec) 81 mg PO 3XWK RF: 0 zinc gluconate 50 mg Tablet 0 mg PO QAM RF: 0 fluticasone propionate [Flonase Allergy Relief] 50 mcg/actuation [place],Suspension 2 spray INTRANASAL HS PRN (Reason: Nasal Congestion) RF: 0 cholecalciferol (vitamin D3) [Vitamin D3] 2,000 unit Capsule 2,000 unit PO QAM RF: 0 levothyroxine 100 mcg tablet 100 mcg PO QAM RF: 0 ferrous sulfate 325 mg (65 mg iron) tablet 325 mg PO QAM RF: 0 docusate sodium [Col-Rite] 100 mg capsule 100 mg PO QPM RF: 0 glipizide 5 mg tablet 5 mg PO BID RF: 0 rosuvastatin 10 mg tablet 10 mg PO HS RF: 0 warfarin 2 mg tablet See Rx Instructions .ROUTE .COMPLEX RF: 0 calcium carbonate [Calcium 500] 500 mg calcium (1,250 mg) Tablet 500 mg PO DAILY RF: 0 Discharge Orders: Discharge Order (Routine); Ordered 07/09/20 Ordered By: Rubén Benavidez/Other Patient Handouts: Managing Type 2 Diabetes Admission Data Admit Date/Time: 06/25/20 23:51 Attending Provider: Rubén Nice Admit Provider: Luis Brooks Primary Care Provider: Luis Whalen Other Providers: Rubén Nice ; [facility] ; [facility] ; Luis Brooks ; Raul Slater ; Emre Clark ; Amol Watters ; James Kelley ; Faheem Velasco ; Herman Ellington ; Nighat Love ; Haven Murdock ; Naman Ramon ; Faisal Freire ; Racheal Lagunas ; Cameron Hall I. ; Jose Enrique De León II ; Vanessa Araujo ; Herman Bonilla ; Christiano Kasper Other Interventions: Discharge Summary Assessment (RN) Last Done: 07/09/20 12:18
== END 2020-07-09 16:05 | DRG 871 ==
LOC: ED 18:42 → SUATTDRO 23:51 → 2S 23:51 → 1E 06-28 10:51 → 2S 06-28 17:56 → 3W 07-01 10:38

== ENCOUNTER 2020-08-02 14:39 | Inpatient (IN) ==
[2020-08-02] MEDS ORDERED: ACETAMINOPHEN 1,000 MG/100 ML VIAL IV STA (15:06)
[2020-08-02] MEDS ORDERED: SODIUM CHLORIDE 0.9% 1000ML 1,000 ML IV SCH (15:15)
--- NOTE | 2020-08-02 15:23 | Emergency Department Note ---
History of Present Illness General Chief complaint: Confusion Time Seen by Provider: 08/02/20 15:07 Limitations: altered mental status History of Present Illness Provider complaint: Weakness Onset (ago): hour(s) 6 Associated symptoms: + confusion, + fever/chills and + weakness; no chest pain, no cough, no headaches, no nausea/vomiting, no rash, no shortness of breath and no syncope 85-year-old female presents emergency department with fever, weakness, and confusion. Patient was recently seen in the emergency department and discharged with diagnosis of UTI. Patient's family stated she was too weak to stay at home. Family is not at bedside to answer any questions at this time. Home Medications Home Medications Medication Instructions Recorded Confirmed Type aspirin [Aspirin Low Dose] 81 mg PO MOWEFR 10/31/18 08/02/20 History cholecalciferol (vitamin D3) 2,000 unit PO QAM 10/31/18 08/02/20 History [Vitamin D3] fluticasone propionate [Flonase 2 spray INTRANASAL HS PRN 10/31/18 08/02/20 History Allergy Relief] levothyroxine 100 mcg PO QAM 10/31/18 08/02/20 History verapamil 180 mg PO QAM 10/31/18 08/02/20 History warfarin 2 mg PO HS 04/03/19 08/02/20 History tamsulosin 0.4 mg capsule 0.4 mg PO HS #90 cap 07/11/19 08/02/20 Rx calcium carbonate [Calcium 500] 500 mg PO DAILY 12/25/19 08/02/20 History docusate sodium [Col-Rite] 100 mg PO HS 06/25/20 08/02/20 History ferrous sulfate 325 mg PO QAM 06/25/20 08/02/20 History glipizide 10 mg PO BID 06/25/20 08/02/20 History rosuvastatin 10 mg PO HS 06/25/20 08/02/20 History ciprofloxacin HCl [Cipro] 250 mg PO Q12H 08/02/20 08/02/20 History lisinopril 10 mg PO QAM 08/02/20 08/02/20 History Allergies Allergy/AdvReac Type Severity Reaction Status Date / Time Bactrim Allergy Intermediate Rash Verified 02/21/18 20:57 sulfamethoxazole Allergy Intermediate Rash Verified 08/02/20 07:57 trimethoprim Allergy Intermediate Rash Verified 08/02/20 07:57 tetanus toxoid, adsorbed Allergy Unknown HIVES Verified 08/02/20 07:57 tetracycline Allergy Unknown hives Verified 08/02/20 07:57 rosuvastatin AdvReac Intermediate Muscle Verified 08/02/20 07:57 stiffness Past Med/Surg History Medical History CKD (chronic kidney disease) stage 3, GFR 30-59 ml/min Gram-negative bacteremia HLD (hyperlipidemia) HTN (hypertension) Hypothyroidism Paroxysmal A-fib T2DM (type 2 diabetes mellitus) Surgical History History of breast biopsy History of cholecystectomy History of hysterectomy Family History Mother Breast cancer Hypertension Father , at 92 No problems noted. 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 How many Children do You have: 1 Other Information That Helps Us Care for You: No other: ambulates with cane Feels Safe at Home: Yes Safety Concerns: Feels Safe At This Time Assistive Devices: Glasses and Walker Assistive Devices Comment: GLASSES NOT PRESENT ON ADMISSION Review of Systems Unobtainable due to cognitive status Physical Exam Vital Signs Vital Signs - 24 hr 08/02/20 14:29 08/02/20 14:45 08/02/20 14:50 Temperature 37.9 C H Temperature Source Oral Pulse Rate 111 H 112 H 109 H Pulse Rate from SpO2 Sensor 111 H 113 H Respiratory Rate 20 24 25 H Respiratory Effort / Characteristics Spontaneous Blood Pressure 126/53 L 126/53 L Blood Pressure Mean 77 87 Pulse Oximetry 92 90 91 Oxygen Delivery Method Room Air Sepsis Recent Fever Within 48 Hours Yes Sepsis New/Unexplained Change in Mental Status Yes Sepsis Action Taken by Nursing No Action Required 08/02/20 15:00 08/02/20 15:30 08/02/20 16:00 Temperature Temperature Source Pulse Rate 112 H 113 H 110 H Pulse Rate from SpO2 Sensor 110 H 111 H Respiratory Rate 21 25 H 23 Respiratory Effort / Characteristics Blood Pressure Blood Pressure Mean Pulse Oximetry 92 93 Oxygen Delivery Method Sepsis Recent Fever Within 48 Hours Sepsis New/Unexplained Change in Mental Status Sepsis Action Taken by Nursing 08/02/20 16:26 08/02/20 16:30 08/02/20 17:00 Temperature Temperature Source Pulse Rate 104 H 106 H 107 H Pulse Rate from SpO2 Sensor Respiratory Rate 23 25 H 21 Respiratory Effort / Characteristics Blood Pressure 117/51 L 105/45 L Blood Pressure Mean 66 78 Pulse Oximetry Oxygen Delivery Method Sepsis Recent Fever Within 48 Hours Sepsis New/Unexplained Change in Mental Status Sepsis Action Taken by Nursing 08/02/20 17:01 Temperature Temperature Source Pulse Rate 109 H Pulse Rate from SpO2 Sensor Respiratory Rate 20 Respiratory Effort / Characteristics Blood Pressure 90/64 L Blood Pressure Mean 67 Pulse Oximetry Oxygen Delivery Method Sepsis Recent Fever Within 48 Hours Sepsis New/Unexplained Change in Mental Status Sepsis Action Taken by Nursing Physical Exam HENT: Exam performed. -Head: Normocephalic and atraumatic. -Right Ear: External ear normal. No mastoid tenderness. -Left Ear: External ear normal. No mastoid tenderness. -Mouth/Throat: The oropharynx is clear and moist. No trismus in the jaw. No dental abscesses or uvula swelling. No oropharyngeal exudate or tonsillar abscesses. EYES: Conjunctivae and EOM are normal. Pupils are equal, round, and reactive to light. Right eye exhibits no discharge. Left eye exhibits no discharge. No scleral icterus. NECK: Normal range of motion. Neck supple. No JVD present. No spinous process tenderness present. No carotid bruit present. No rigidity. No tracheal deviation and normal range of motion present. No Brudzinski's sign and no Kernig's sign noted. CV: Tachycardic rate, regular rhythm, normal heart sounds and intact distal pulses. There is no peripheral edema. Palpable radial pulses bue. PULM/CHEST: Effort normal and breath sounds normal. No respiratory distress. No stridor. She has no wheezes. She has no rales. -Chest Wall: She exhibits no tenderness. ABD: The abdomen is soft. Bowel sounds are normal. She has no distension. No mass is present. There is no tenderness. There is no rebound, no guarding, no Garcia's sign and no tenderness at McBurney's point. Rovsig negative MUSC/SKEL: Normal range of motion. There is no peripheral edema, tenderness or deformity. LYMPH: No cervical adenopathy. NEURO: Motor and sensation grossly intact. SKIN: Skin is warm and dry. She is not diaphoretic. Course Course 1507: The patient was evaluated in room C6. A complete history and physical exam was performed. Cardiac monitoring: An order was placed for continuous cardiac monitoring. The monitor shows a rate of 110 with sinus tachycardia rhythm EMR reviewed. Patient was seen in the emergency department earlier today and discharged approximately 6 hours ago. At that time the patient's vital signs were stable, she is not tachycardic or febrile. Patient did have a white count of 12.26 and creatinine of 1.75. Patient's creatinine at baseline appears to be between 0.9 and 1.1 according previous lab results. Urinalysis was consistent with UTI. Patient received IV Rocephin in the emergency department earlier today and then was discharged with instructions to keep taking Cipro. 1647: Vital signs stable. Lactic acid 2.2. IV fluid resuscitation began in the emergency department. CT of the head negative. Patient will be admitted to the [facility] service discussed with Chelle booker who stated to admit to Dr. Barron Administered Medications Discontinued Medications Acetaminophen (Acetaminophen 1000 Mg/100 Ml Iv) Confirm Administered Dose 1,000 mg IV .STK-MED ONE Stop: 08/02/20 18:19 Last Admin: 08/02/20 18:22 Dose: Not Given Documented by: [id number] Acetaminophen (Ofirmev) 1,000 mg in 100 mls @ 400 mls/hr IV NOW STA Stop: 08/02/20 15:20 Last Infusion: 08/02/20 18:41 Dose: 0 mls/hr Documented by: [id number] Admin: 08/02/20 18:16 Dose: 400 mls/hr Documented by: [id number] Sodium Chloride (Nss 1000ml) 1,000 mls @ 125 mls/hr IV .Q8H NO Stop: 09/01/20 15:14 Last Admin: 08/02/20 16:37 Dose: 125 mls/hr Documented by: [id number] Medical Decision Making Laboratory Data Result diagrams: 08/02/20 18:47 08/02/20 18:47 Lab Results 08/02/20 Range/Units 16:00 Lactate 2.2 H* (0.4-2.0) mmol/L Imaging Data Radiologist's Impression: [facility], [id number] CT Scan Report Patient: MARCO ANTONIO BRUNNER Date: 08/02/20#: [id number]: [address]Acct ID:[id number]: [facility] Zip: [place], [place] [address]Sas: 85Location: EDSex: FRoom/Bed:Att Phy:Diagnosis: CONFUSIONPri Phy: Luis Whalen, DOService Date: 08/02/20Fam Phy:Interpreting Phy: Tod HouAdmit Phy: Ordering Phy: Doug Lee MD cc: ~ CT head/brain wo con CLINICAL HISTORY: 85 years-old Female with weakness. Acute weakness TECHNIQUE: Multiple axial CT images of the head were obtained without contrast. A dose lowering technique was utilized adhering to the principles of ALARA. CT DOSE: 537.48 mGy.cm COMPARISON: Head CT 06/25/2020 FINDINGS: No acute intracranial hemorrhage, midline shift, intracranial mass, hydrocephalus, territorial ischemia or abnormal extra-axial collection. Age- related involutional changes. Mild patchy white matter hypodensities suggestive of chronic microvascular ischemic disease. Cerebral vascular calcifications. The calvarium is intact. The paranasal sinuses, mastoid air cells, and middle ear cavities are clear. IMPRESSION: No acute intracranial abnormality. ACT 112: Negative or not required by law. The above report was generated using voice recognition software. It may contain grammatical, syntax or spelling errors. Electronically signed by: Bill Hou M.D. 08/02/2020 4:20 PM Dictated: 08/02/201617Transcribed: 08/02/201617 [facility] Narrative 1507: The patient was evaluated in room C6. A complete history and physical exam was performed. Cardiac monitoring: An order was placed for continuous cardiac monitoring. The monitor shows a rate of 110 with sinus tachycardia rhythm EMR reviewed. Patient was seen in the emergency department earlier today and discharged approximately 6 hours ago. At that time the patient's vital signs were stable, she is not tachycardic or febrile. Patient did have a white count of 12.26 and creatinine of 1.75. Patient's creatinine at baseline appears to be between 0.9 and 1.1 according previous lab results. Urinalysis was consistent with UTI. Patient received IV Rocephin in the emergency department earlier today and then was discharged with instructions to keep taking Cipro. 1647: Vital signs stable. Lactic acid 2.2. IV fluid resuscitation began in the emergency department. CT of the head negative. Patient will be admitted to the [facility] service discussed with Chelle booker who stated to admit to Dr. Barron Impression & Plan Sepsis, Acute UTI Discharge Plan Visit Data Chief Complaint: Confusion ED Provider: Doug Lee Discharge Problem: Sepsis, Acute UTI Patient Disposition: Admitted As Inpatient Discharge Instructions Interventions: ED Discharge Assessment Last Done: 08/02/20 18:37 Discharge Problem: Sepsis Qualifiers: Sepsis type: sepsis due to unspecified organism Sepsis acute organ dysfunction status: without acute organ dysfunction Qualified Code(s): A41.9 - Sepsis, uns pecified organism
--- NOTE | 2020-08-02 16:21 | CT Scan Report ---
CT head/brain wo con CLINICAL HISTORY: 85 years-old Female with weakness. Acute weakness TECHNIQUE: Multiple axial CT images of the head were obtained without contrast. A dose lowering tech nique was utilized adhering to the principles of ALARA. CT DOSE: 537.48 mGy.cm COMPARISON: Head CT 06/25/2020 FINDINGS: No acute intracranial hemorrhage, midline shift, intracranial mass, hydrocephalus, territorial ischem ia or abnormal extra-axial collection. Age-related involutional changes. Mild patchy white matter hyp odensities suggestive of chronic microvascular ischemic disease. Cerebral vascular calcifications. The calvarium is intact. The paranasal sinuses, mastoid air cells, and middle ear cavities are clear . IMPRESSION: No acute intracranial abnormality. ACT 112: Negative or not required by law. The above report was generated using voice recognition software. It may contain grammatical, syntax o r spelling errors. Electronically signed by: Bill Hou M.D. 08/02/2020 4:20 PM
[2020-08-02 17:32] LABS: INR 2.4 (0.9-1.1); Partial Thromboplastin Time 29.1 Seconds (21.0-31.0); Prothrombin Time 24.5 Seconds (9.0-12.0)
[2020-08-02] MEDS ORDERED: ACETAMINOPHEN 1000 MG/100 ML IV IV ONE (18:18)
--- NOTE | 2020-08-02 18:37 | History & Physical Report ---
Date of Service August 02, 2020 Assessment & Plan (1) Sepsis: (2) Acute UTI: -Admit to [facility] with telemetry -Patient presenting from home with reports of urinary frequency, generalized weakness, chills and rigors -History of E. coli UTI and bacteremia about 1 month ago -Was seen in the ED earlier today however discharged home. Upon arriving home, developed generalized weakness, chills, rigors. -WBC 14 K, tachycardic, lactic acid 2.2; BP stable -HR improving after IVF -Continue to trend lactate -Received IV ceftriaxone at this morning in the ED, will continue with -Follow urine and blood cultures -CT ABD/pelvis to evaluate for pyelonephritis and/or stone (3) Acute kidney injury superimposed on chronic kidney disease: (4) CKD (chronic kidney disease) stage 3, GFR 30-59 ml/min: -Baseline creatinine 1.0, up to 1.8 today -Likely prerenal in nature secondary to sepsis -IVF, hold lisinopril (5) Paroxysmal A-fib: -Rate controlled on verapamil, will continue -Anticoagulated on Coumadin, INR 2.4 (6) T2DM (type 2 diabetes mellitus): -Hgb A1c 7.4 06/2020 -Hold oral agents and utilize NovoLog per protocol while hospitalized (7) HTN (hypertension): -BP controlled, holding lisinopril as above (8) DVT prophylaxis: -Anticoagulated on Coumadin, INR 2.4 History of Present Illness Chief Complaint: Weakness, urinary frequency Primary Care Provider: Luis Whalen DO 85-year-old female with PMH DM type II, CKD stage III, hypothyroidism, paroxysmal atrial fibrillation anticoagulated on Coumadin, HTN, and other problems listed below who presents the ED for evaluation of generalized weakness and urinary frequency. Patient recently admitted to [facility] 06/26 through 07/09 for E. coli UTI and bacteremia. Patient was discharged to rehab facility for therapy and returned home about 4 days ago. Last week, patient reports she developed urinary frequency. She was seen by PCP and prescribed Cipro which she started taking on 07/31. Patient was seen in the ED this morning for ongoing urinary frequency. Patient received a dose of IV ceftriaxone and was discharged home. Upon arriving home, patient reports she developed chills and rigors however no fever. She had ongoing urinary frequency and some bladder pressure. She was also very weak. Patient came back to the ED for reevaluation. Patient denies chest pain shortness of breath. No lightheadedness, dizziness, diaphoresis, syncopal events. She denies abdominal pain, nausea, vomiting, diarrhea. Upon arrival to the ED, patient had low-grade temp of 37.9 and mild tachycardia, lactic acid 2.2. Labs from ED visit this morning showed WBC 12 K, creatinine 1.7 (up from baseline of 1.0). Patient was given Tylenol and IVF. Allergies Allergy/AdvReac Type Severity Reaction Status Date / Time Bactrim Allergy Intermediate Rash Verified 02/21/18 20:57 sulfamethoxazole Allergy Intermediate Rash Verified 08/02/20 07:57 trimethoprim Allergy Intermediate Rash Verified 08/02/20 07:57 tetanus toxoid, adsorbed Allergy Unknown HIVES Verified 08/02/20 07:57 tetracycline Allergy Unknown hives Verified 08/02/20 07:57 rosuvastatin AdvReac Intermediate Muscle Verified 08/02/20 07:57 stiffness Home Medications Home Medications Medication Instructions Recorded Confirmed Type aspirin [Aspirin Low Dose] 81 mg PO MOWEFR 10/31/18 08/02/20 History cholecalciferol (vitamin D3) 2,000 unit PO QAM 10/31/18 08/02/20 History [Vitamin D3] fluticasone propionate [Flonase 2 spray INTRANASAL HS PRN 10/31/18 08/02/20 History Allergy Relief] levothyroxine 100 mcg PO QAM 10/31/18 08/02/20 History verapamil 180 mg PO QAM 10/31/18 08/02/20 History warfarin 2 mg PO HS 04/03/19 08/02/20 History tamsulosin 0.4 mg capsule 0.4 mg PO HS #90 cap 07/11/19 08/02/20 Rx calcium carbonate [Calcium 500] 500 mg PO DAILY 12/25/19 08/02/20 History docusate sodium [Col-Rite] 100 mg PO HS 06/25/20 08/02/20 History ferrous sulfate 325 mg PO QAM 06/25/20 08/02/20 History glipizide 10 mg PO BID 06/25/20 08/02/20 History rosuvastatin 10 mg PO HS 06/25/20 08/02/20 History ciprofloxacin HCl [Cipro] 250 mg PO Q12H 08/02/20 08/02/20 History lisinopril 10 mg PO QAM 08/02/20 08/02/20 History Past Med/Surg History Medical History CKD (chronic kidney disease) stage 3, GFR 30-59 ml/min Gram-negative bacteremia HLD (hyperlipidemia) HTN (hypertension) Hypothyroidism Paroxysmal A-fib T2DM (type 2 diabetes mellitus) Surgical History History of breast biopsy History of cholecystectomy History of hysterectomy Family History Mother Breast cancer Hypertension Father , at 92 No problems noted. 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 Beliefs That Will Affect Care: Spiritism Spiritism Beliefs: Doroteo marital status: / Current Living Situation: Alone Current Living Situation Comment: "HELPER" 3X/WEEK How many Children do You have: 1 Other Information That Helps Us Care for You: No other: ambulates with cane Feels Safe at Home: Yes Safety Concerns: Feels Safe At This Time Assistive Devices: Glasses and Walker Assistive Devices Comment: GLASSES NOT PRESENT ON ADMISSION Review of Systems Review of Systems: ROS per HPI, all other systems reviewed and negative Physical Exam Constitutional: WD/WN, vitals as above Eyes: PERRL, conjunctivae normal, anicteric sclerae ENMT: external ear and nose normal, oropharynx normal Respiratory: normal respiratory effort, lungs clear to auscultation Cardiovascular: Rate/Rhythm: regular rate and regular rhythm Vessels: normal peripheral pulses Extremities: no edema Gastrointestinal (Abdomen): normal bowel sounds, soft, nontender, no hepatosplenomegaly Musculoskeletal: no cyanosis or clubbing, extremities motor strength 5/5 Skin: no rashes, warm and dry Neurologic: PERRL, EOMI, accommodation nl, no face palsy, no dysarthria slow to respond at times Psychiatric: A+Ox3, euthymic affect Results & Data Results & Data ([facility]) Vital Signs (Past 12 Hours) Vital Signs Temp Pulse Resp BP Pulse Ox 08/02/20 18:00 98 H 18 104/41 L 08/02/20 17:30 102 H 25 H 105/45 L 08/02/20 17:01 109 H 20 90/64 L 08/02/20 17:00 107 H 21 08/02/20 16:30 106 H 25 H 105/45 L 08/02/20 16:26 104 H 23 117/51 L 08/02/20 16:00 110 H 23 08/02/20 15:30 113 H 25 H 93 08/02/20 15:00 112 H 21 92 08/02/20 14:50 109 H 25 H 91 08/02/20 14:45 112 H 24 126/53 L 90 08/02/20 14:29 37.9 C H 111 H 20 126/53 L [address] IMPRESSION: No acute intracranial abnormality. Code Status & VTE Plan Code Status Patient is a full code as per my discussion with her. VTE Prophylaxis Plan VTE Prophylaxis will be ordered: No Supervising Physician Co-Signing Physician Notes ATTENDING ADDENDUM : pt seen and examined at bedside , care -co ordinated with Chelle LÓPEZ 85 yo F admitted with fever /chill , elevated white count , hypotension -meets criteria for sepsis , source of infection -UTI UA grossly positive , prior hx of recurrent UTI physical exam focused : GEN : no sign of distress , very pleasant HEENT : NAD Lungs: CTA Heart : regular s1/s2 abdomen ; soft , non tender , no CVA tenderness Neuro; no focal deficit A/P : severe sepsis : met criteria ; fever /hypotension . elevated lactic acid level , IV fluid resuscitation broad spectrum ABx follow urine culture and blood culture ID consult -pt was evaluated by Reese ARRINGTON in last admission in [facility] for UTI FULL CODE please refer to further documentation by Chelle LÓPEZ for discussion of other chronic issues Franca Hitchcock MD (1) T2DM (type 2 diabetes mellitus) Chronic kidney disease stage: stage 3 (moderate) Diabetes mellitus complication detail: with chronic kidney disease Diabetes mellitus complication status: with kidney complications Diabetes mellitus care home insulin use: without care home use Qualified Code(s): E11.22 - Type 2 diabetes mellitus with diabetic chronic kidney disease; N18.3 - Chronic kidney disease, stage 3 (moderate) (2) HTN (hypertension) Hypertension type: essential hypertension Qualified Code(s): I10 - Essential (primary) hypertension
[2020-08-02 19:05] LABS: Basophils # (auto) 0.01 K/uL (0-0.2); Basophils % (auto) 0.1 %; Eosinophils # (auto) 0.11 K/uL (0-0.5); Eosinophils % (auto) 0.8 %; Hematocrit (blood only) 25.2 % (37-47); Immature Granulocytes # (auto) 0.04 K/uL (0.00-0.02); Immature Granulocytes % (auto) 0.3 %; Lymphocytes # (auto) 1.53 K/uL (1.2-3.4); Lymphocytes % (auto) 10.7 %; Mean Corpuscular Hemoglobin 25.2 pg (25-34); Mean Corpuscular Hgb Conc 31.7 g/dL (32-36); Mean Corpuscular Volume 79.2 fL (80-100); Mean Platelet Volume 9.6 fL (7.4-10.4); Monocytes # (auto) 0.79 K/uL (0.11-0.59); Monocytes % (auto) 5.5 %; Neutrophils # (auto) 11.84 K/uL (1.4-6.5); Neutrophils % (auto) 82.6 %; Platelet Count 223 K/uL (130-400); RDW Coefficient of Variation 16.4 % (11.5-14.5); RDW Standard Deviation 47.7 fL (36.4-46.3); Red Blood Count 3.18 M/uL (4.2-5.4); White Blood Count 14.32 K/uL (4.8-10.8)
[2020-08-02 19:23] LABS: Albumin Level 2.6 gm/dl (3.4-5.0); BUN Creatinine Ratio 20.3 (10-20); Calcium 8.2 mg/dl (8.5-10.1); Creatinine Clr Calc Pharmacy 18.1 ml/min; Est GFR (African American) 28.1; Est GFR (Non-African American) 24.2; Magnesium 1.7 mg/dl (1.8-2.4); Potassium 4.7 mmol/L (3.5-5.1)
[2020-08-02 19:30] LABS: Albumin Globulin Ratio 0.8 (0.9-2); Bilirubin,Total 0.3 mg/dl (0.2-1); Globulin 3.1 gm/dl (2.5-4.0); Total Protein 5.7 gm/dl (6.4-8.2)
[2020-08-02] MEDS ORDERED: MAGNESIUM SULFATE / D5W 1 GM/100 ML BAG IV STA (20:24)
--- NOTE | 2020-08-02 20:37 | CT Scan Report ---
CT OF THE ABDOMEN AND PELVIS WITHOUT CONTRAST CLINICAL HISTORY: ARF, sepsis, UTI COMPARISON STUDY: CT of the abdomen and pelvis December 25, 2019. Renal ultrasound July 02, 2020. TECHNIQUE: Axial images of the abdomen and pelvis were obtained without IV contrast. Images were revi ewed in the axial, sagittal, and coronal planes. Automated exposure control was utilized for the ghazal dy. A dose lowering technique was utilized adhering to the principles of ALARA. FINDINGS: Subpleural opacities within the lung bases reflect atelectasis. No pneumatosis, free air or portal venous gas is present. Unenhanced images of the liver, adrenal glands and pancreas are unrema rkable. Mild biliary ductal dilatation is unchanged and likely related to cholecystectomy. There is n o peripancreatic infiltration. Mild splenomegaly is unchanged. Punctate right renal calculus is noted . There are no ureteral calculi. There is no hydronephrosis or hydroureter. A few water attenuation l eft renal lesions are suboptimally assessed on this unenhanced exam but favor cysts. There are few co rtical calcifications. There is no evidence for a bowel obstruction. The appendix is normal. There is extensive sigmoid diverticulosis. There is mild adjacent infiltration however this is probably relat ed to the bladder. Bladder wall thickening is noted with moderate adjacent infiltration. Levoscoliosi s of the lumbar spine is noted. No acute fracture or suspicious lesion is identified within visualize d skeletal structures. There is no lymphadenopathy. IMPRESSION: 1. Moderate bladder wall thickening with adjacent infiltration consistent with cystitis. No hydroneph rosis. No ureteral calculi. Punctate right renal calculus. 2. Extensive sigmoid diverticulosis. Mild adjacent infiltration is likely related to cystitis however mild superimposed acute diverticulitis cannot be excluded. No free air. No abscess. 3. No bowel obstruction. 4. Stable mild splenomegaly. ACT 112: Negative or not required by law. Electronically signed by: Chad Mustafa M.D. 08/02/2020 8:36 PM
[2020-08-02] MEDS ORDERED: GLUCAGON FOR INJ 1 MG VIAL SQ PRN (21:13)
[2020-08-02] MEDS ORDERED: DEXTROSE 50% 50 ML SYRINGE IV PRN (21:13)
[2020-08-02] MEDS ORDERED: GLUCOSE 10 TABS/TUBE PO PRN (21:13)
[2020-08-02] MEDS ORDERED: GLUCOSE 40% GEL 15 GM TUBE PO PRN (21:13)
[2020-08-02] MEDS ORDERED: PIPERACILL/TAZOBAC CONSULT ACTIVE PRN (21:13)
[2020-08-02] MEDS ORDERED: ACETAMINOPHEN 325 MG TAB PO PRN (21:13)
[2020-08-02] MEDS ORDERED: CARBOHYDRATES FOR HYPOGLYCEMIA PO PRN (21:13)
[2020-08-02] MEDS ORDERED: TAMSULOSIN HCL 0.4 MG CAP PO SCH (22:00)
[2020-08-02] MEDS ORDERED: PIPERACILLIN/TAZOBACTAM 3.375 GM in DEXTROSE 5% 100 ML IV ONE (22:00)
--- NOTE | 2020-08-02 22:24 | Communication Note ---
Date of Service: August 02, 2020 Attending note : repeat Lactic acid level normalized pt remains hypotensive , no symptoms of dizzy spell or lightheadedness cont IV fluid Hold Flomax , diltiazem monitor in tele Franca Hitchcock MD
[2020-08-02] MEDS: SODIUM CHLORIDE 0.9% 1000ML 1,000 ML IV SCH (22:34)
[2020-08-02] MEDS: INSULIN ASPART 100 UNITS/ML 3 ML PEN SC SCH (22:37)
[2020-08-02] MEDS: ROSUVASTATIN CALCIUM 10 MG TAB PO SCH (22:38)
[2020-08-02] MEDS: WARFARIN SOD 2 MG TAB PO SCH (22:39)
[2020-08-02] MEDS: DOCUSATE SODIUM 100 MG CAP PO SCH (22:40)
[2020-08-02] MEDS ORDERED: MAGNESIUM SULFATE / D5W 1 GM/100 ML BAG IV ONE (22:56)
[2020-08-03] MEDS: PIPERACILLIN/TAZOBACTAM 3.375 GM in DEXTROSE 5% 100 ML IV SCH ×3 (04:05→19:44)
[2020-08-03] MEDS: SODIUM CHLORIDE 0.9% 1000ML 1,000 ML IV SCH ×3 (04:06→20:50)
[2020-08-03] MEDS: LEVOTHYROXINE SODIUM 100 MCG TABLET PO SCH (06:26)
[2020-08-03 07:58] LABS: Hemoglobin 8.2 g/dL (12.0-16.0); Mean Corpuscular Hemoglobin 25.1 pg (25-34); Mean Corpuscular Hgb Conc 31.5 g/dL (32-36); Mean Corpuscular Volume 79.5 fL (80-100); Mean Platelet Volume 10.1 fL (7.4-10.4); Platelet Count 210 K/uL (130-400); RDW Coefficient of Variation 16.5 % (11.5-14.5); RDW Standard Deviation 48.4 fL (36.4-46.3); Red Blood Count 3.27 M/uL (4.2-5.4); White Blood Count 13.44 K/uL (4.8-10.8)
[2020-08-03 08:11] LABS: INR 2.3 (0.9-1.1); Prothrombin Time 23.3 Seconds (9.0-12.0)
[2020-08-03] MEDS: FERROUS SULFATE 325 MG TAB PO SCH (08:18)
[2020-08-03] MEDS: INSULIN ASPART 100 UNITS/ML 3 ML PEN SC SCH ×4 (08:18→20:52)
[2020-08-03 08:25] LABS: BUN Creatinine Ratio 22.7 (10-20); Calcium 7.7 mg/dl (8.5-10.1); Creatinine Clr Calc Pharmacy 19.8 ml/min; Est GFR (African American) 32.7; Est GFR (Non-African American) 28.2; Magnesium 2.6 mg/dl (1.8-2.4); Potassium 4.3 mmol/L (3.5-5.1)
--- NOTE | 2020-08-03 11:00 | Hospitalist Progress Note ---
Date of Service August 03, 2020 Assessment & Plan (1) Sepsis: Met sepsis criteria on admission with the increase in white count, tachypnea, tachycardia and elevated lactic acid Secondary to UTI as below (2) Acute UTI: -Patient presenting from home with reports of urinary frequency, generalized weakness, chills and rigors -History of E. coli UTI and bacteremia about 1 month ago -Was seen in the ED earlier today however discharged home. Upon arriving home, developed generalized weakness, chills, rigors. -Received intravenous fluid and lactate monitored -Has been on IV Rocephin -Follow urine and blood cultures-pending -CT ABD/pelvis to evaluate for pyelonephritis and/or stone-negative for any stone and/or acute diverticulitis. Acute cystitis and is consistent with UTI -Clinically much improved (3) Acute kidney injury superimposed on chronic kidney disease: (4) CKD (chronic kidney disease) stage 3, GFR 30-59 ml/min: -Baseline creatinine 1.0, up to 1.8 today -Likely prerenal in nature secondary to sepsis -IVF, hold lisinopril -Creatinine has been improving, 1.63 on 08/03/2020 (5) Paroxysmal A-fib: -Rate controlled on verapamil, will continue -Anticoagulated on Coumadin, INR 2.4 (6) T2DM (type 2 diabetes mellitus): -Hgb A1c 7.4 06/2020 -Hold oral agents and utilize NovoLog per protocol while hospitalized (7) HTN (hypertension): -BP controlled, holding lisinopril as above (8) DVT prophylaxis: -Anticoagulated on Coumadin, INR 2.4 Admission and Anticipated Discharge Date Admission Date: August 02, 2020 Subjective 08/03/2020 The patient was seen and examined in medical telemetry unit She has been feeling a lot better since this morning Denies any hypogastric discomfort and no more symptoms on voiding No fever and/or chills Review of Systems Review of Systems: All systems reviewed and are unremarkable except as noted below Gastrointestinal: no abdominal pain, no bloating, no nausea and no vomiting Genitourinary: no dysuria Neurologic: + generalized weakness Physical Exam Physical Exam: Lying in bed comfortably Constitutional: + thin; no acute distress Eyes: PERRL, conjunctivae normal, anicteric sclerae ENMT: external ear and nose normal, oropharynx normal Neck: trachea midline, no thyromegaly Respiratory: no respiratory distress Auscultation: lungs clear to auscultation bilaterally Cardiovascular: Rate/Rhythm: regular rate and regular rhythm Heart Sounds: no murmur Extremities: no edema Gastrointestinal (Abdomen): Inspection/Auscultation: normal bowel sounds; abdomen not distended Percussion/Palpation: + abdomen tender (Minimal hypogastric tenderness) and abdomen soft Musculoskeletal: No acute arthritis in any joint Neurologic: Alert, awake and oriented x3. No focal sensory and motor deficit appreciated Psychiatric: A+Ox3, euthymic affect Lymphatic: no cervical or axillary lymphadenopathy Results & Data Results & Data ([facility]) Vital Signs (Past 12 Hours) Vital Signs Temp Pulse Pulse Resp BP Pulse Ox 08/03/20 07:47 88 08/03/20 07:20 36.9 C 89 16 92/53 L 94 08/03/20 04:00 37.1 C 88 18 142/73 H 96 08/02/20 23:28 36.4 C L 77 18 103/58 L 98 Laboratory Results Short CBC 08/02/20 08/03/20 Range/Units 18:47 07:00 WBC 14.32 H 13.44 H (4.8-10.8) K/uL Hgb 8.0 L 8.2 L (12.0-16.0) g/dL Hct 25.2 L 26.0 L (37-47) % Plt Count 223 210 (130-400) K/uL BMP 08/02/20 08/03/20 18:47 07:00 Sodium 136 135 L Potassium 4.7 4.3 Chloride 105 106 Carbon Dioxide 26 24 BUN 38 H 37 H Creatinine 1.85 H 1.63 H Glucose 202 H 169 H Calcium 8.2 L 7.7 L Liver Function 08/02/20 Range/Units 18:47 Total Bilirubin 0.3 (0.2-1) mg/dl AST 19 (15-37) U/L ALT 15 (12-78) U/L Alkaline Phosphatase 55 (45-117) U/L Albumin 2.6 L (3.4-5.0) gm/dl Medications Administered Current Inpatient Medications Acetaminophen (Acetaminophen 325 Mg Tab) 650 mg PO Q4H PRN PRN Reason: Pain or Fever Stop: 09/01/20 21:12 Aspirin (Aspirin 81 Mg Ectab) 81 mg PO MoWeFr@0900 [facility] Stop: 09/04/20 08:59 Dextrose (Dextrose 50% 50 Ml Syringe) 25 - 50 ml IV UD PRN; Protocol PRN Reason: Hypoglycemia Protocol Stop: 09/01/20 21:12 Docusate Sodium (Docusate Sodium 100 Mg Cap) 100 mg PO HS [facility] Stop: 09/01/20 21:59 Last Admin: 08/02/20 22:40 Dose: 100 mg Documented by: Ferrous Sulfate (Ferrous Sulfate 325 Mg Tab) 325 mg PO QAM NO Stop: 09/02/20 08:59 Last Admin: 08/03/20 08:18 Dose: 325 mg Documented by: Glucagon (Glucagon For Inj 1 Mg Vial) 1 mg SQ UD PRN; Protocol PRN Reason: Hypoglycemia Protocol Stop: 09/01/20 21:12 Glucose (Glucose 10 Tabs/Tube) 4 - 8 tabs PO UD PRN; Protocol PRN Reason: Hypoglycemia Protocol Stop: 09/01/20 21:12 Glucose (Glucose 40% Gel 15 Gm Tube) 15 - 30 gm PO UD PRN; Protocol PRN Reason: Hypoglycemia Protocol Stop: 09/01/20 21:12 Sodium Chloride (Nss 1000ml) 1,000 mls @ 125 mls/hr IV .Q8H [facility] Stop: 09/01/20 21:12 Last Admin: 08/03/20 04:06 Dose: 125 mls/hr Documented by: Piperacillin Sod/Tazobactam (Sod 3.375 gm/ Dextrose) 115 mls @ 28.75 mls/hr IV Q8H [facility]; Protocol Stop: 08/13/20 03:59 Last Infusion: 08/03/20 08:17 Dose: Infused Documented by: Insulin Aspart (Insulin Aspart 100 Units/Ml 3 Ml Pen) 0 units SC ACHS [facility] Stop: 09/01/20 21:59 Last Admin: 08/03/20 08:18 Dose: 3 units Documented by: Levothyroxine Sodium (Levothyroxine Sodium 100 Mcg Tablet) 100 mcg PO DAILYBB [facility] Stop: 09/02/20 06:29 Last Admin: 08/03/20 06:26 Dose: 100 mcg Documented by: Miscellaneous (Carbohydrates For Hypoglycemia ) 15 - 30 gm PO UD PRN PRN Reason: Hypoglycemia Protocol Stop: 09/01/20 21:12 Miscellaneous Information (Piperacill/Tazobac Consult Active) 1 ea N/A UD PRN PRN Reason: Consult Stop: 09/01/20 21:12 Rosuvastatin Calcium (Rosuvastatin Calcium 10 Mg Tab) 10 mg PO [facility] Stop: 09/01/20 21:59 Last Admin: 08/02/20 22:38 Dose: 10 mg Documented by: Tamsulosin HCl (Tamsulosin Hcl 0.4 Mg Cap) 0.4 mg PO HS [facility] Stop: 09/01/20 21:59 Verapamil HCl (Verapamil Hcl 180 Mg Tabcr) [facility] Stop: 09/02/20 08:59 Warfarin Sodium (Warfarin Sod 2 Mg Tab) 2 mg PO HS [facility] Stop: 09/01/20 21:59 Last Admin: 08/02/20 22:39 Dose: 2 mg Documented by: (1) T2DM (type 2 diabetes mellitus) Diabetes mellitus emt intermediate insulin use: without intermediate use Diabetes mellitus complication status: with kidney complications Diabetes mellitus complication detail: with chronic kidney disease Chronic kidney disease stage: stage 3 (moderate) Qualified Code(s): E11.22 - Type 2 diabetes mellitus with diabetic chronic kidney disease; N18.3 - Chronic kidney disease, stage 3 (moderate) (2) HTN (hypertension) Hypertension type: essential hypertension Qualified Code(s): I10 - Essential (primary) hypertension
[2020-08-03] MEDS: ROSUVASTATIN CALCIUM 10 MG TAB PO SCH (20:49)
[2020-08-03] MEDS: WARFARIN SOD 2 MG TAB PO SCH (20:50)
[2020-08-03] MEDS: DOCUSATE SODIUM 100 MG CAP PO SCH (20:50)
[2020-08-04] MEDS ORDERED: dilTIAZem HCl 5 MG/ML 5 ML VIAL IV STA ×2 (02:47→03:51)
[2020-08-04] MEDS ORDERED: METOPROLOL TARTRATE 1 MG/ML VIAL IV PRN (02:49)
[2020-08-04] MEDS: PIPERACILLIN/TAZOBACTAM 3.375 GM in DEXTROSE 5% 100 ML IV SCH ×2 (03:26→17:21)
[2020-08-04] MEDS ORDERED: dilTIAZem HCL 125 MG in DEXTROSE 5% 100 ML IV SCH (04:00)
[2020-08-04] MEDS ORDERED: STAT IV Infusion **Titration per Protocol STA (04:43)
[2020-08-04] MEDS: SODIUM CHLORIDE 0.9% 1000ML 1,000 ML IV SCH (04:58)
[2020-08-04] MEDS ORDERED: SODIUM CHLORIDE 0.9% 500 ML IV SCH (05:00)
[2020-08-04] MEDS ORDERED: DIGOXIN 125 MCG in SYRINGE 9.5 ML IV STA (05:31)
[2020-08-04] MEDS: LEVOTHYROXINE SODIUM 100 MCG TABLET PO SCH (06:08)
[2020-08-04 06:16] LABS: Basophils # (auto) 0.01 K/uL (0-0.2); Basophils % (auto) 0.1 %; Eosinophils # (auto) 0.13 K/uL (0-0.5); Eosinophils % (auto) 1.5 %; Hematocrit (blood only) 26.5 % (37-47); Hemoglobin 8.4 g/dL (12.0-16.0); Immature Granulocytes # (auto) 0.02 K/uL (0.00-0.02); Immature Granulocytes % (auto) 0.2 %; Lymphocytes # (auto) 1.62 K/uL (1.2-3.4); Lymphocytes % (auto) 18.9 %; Mean Corpuscular Hemoglobin 25.1 pg (25-34); Mean Corpuscular Hgb Conc 31.7 g/dL (32-36); Mean Corpuscular Volume 79.3 fL (80-100); Mean Platelet Volume 9.9 fL (7.4-10.4); Monocytes # (auto) 0.48 K/uL (0.11-0.59); Monocytes % (auto) 5.6 %; Neutrophils % (auto) 73.7 %; Platelet Count 174 K/uL (130-400); RDW Coefficient of Variation 16.7 % (11.5-14.5); RDW Standard Deviation 49.1 fL (36.4-46.3); Red Blood Count 3.34 M/uL (4.2-5.4); White Blood Count 8.56 K/uL (4.8-10.8)
--- NOTE | 2020-08-04 06:20 | Electrocardiogram Report ---
Test Reason : Blood Pressure : / mmHG Vent. Rate : 108 BPM Atrial Rate : 108 BPM P-R Int : 152 ms QRS Dur : 086 ms QT Int : 336 ms P-R-T Axes : 085 -59 043 degrees QTc Int : 450 ms Sinus tachycardia Pulmonary disease pattern Left anterior fascicular block Abnormal ECG When compared with ECG of 27-JUN-2020 13:58, Sinus rhythm has replaced Atrial fibrillation ST no longer depressed in Lateral leads T wave inversion no longer evident in Lateral leads Confirmed by Ramon Ibarra ([id number]) on 08/04/2020 6:19:58 AM Referred By: REFERRED SELF Confirmed By:Ramon Ibarra
[2020-08-04] MEDS ORDERED: dilTIAZem HCl 5 MG/ML 5 ML VIAL IV ONE (06:37)
[2020-08-04 06:42] LABS: BUN Creatinine Ratio 19.6 (10-20); Calcium 6.9 mg/dl (8.5-10.1); Creatinine Clr Calc Pharmacy 19.4 ml/min; Est GFR (African American) 30.5; Est GFR (Non-African American) 26.3; Potassium 3.8 mmol/L (3.5-5.1)
--- NOTE | 2020-08-04 06:50 | Electrocardiogram Report ---
Test Reason : Blood Pressure : / mmHG Vent. Rate : 140 BPM Atrial Rate : 141 BPM P-R Int : 000 ms QRS Dur : 090 ms QT Int : 300 ms P-R-T Axes : 000 -56 070 degrees QTc Int : 458 ms Atrial fibrillation with rapid ventricular response Left axis deviation Possible Anterior infarct , age undetermined Abnormal ECG When compared with ECG of 02-AUG-2020 16:29, (unconfirmed) Atrial fibrillation has replaced Sinus rhythm Confirmed by Ramon Ibarra ([id number]) on 08/04/2020 6:50:25 AM Referred By: REFERRED SELF Confirmed By:Ramon Ibarra
[2020-08-04] MEDS: FERROUS SULFATE 325 MG TAB PO SCH (08:16)
[2020-08-04] MEDS: INSULIN ASPART 100 UNITS/ML 3 ML PEN SC SCH ×4 (08:16→20:25)
--- NOTE | 2020-08-04 08:59 | XRay Report ---
XR chest 1V portable HISTORY: Shortness of breath. congestion COMPARISON: Chest 07/05/2020. FINDINGS: The heart is normal in size. Trace bilateral pleural effusions and bibasilar linear densiti es persist. The upper lung zones remain clear. No evidence for pulmonary edema. No pneumothorax. IMPRESSION: No significant change in the trace bilateral pleural effusions and bibasilar linear densities. This m ay represent atelectasis or pneumonia. ACT 112: Negative or not required by law. Electronically signed by: Donato Duval M.D. 08/04/2020 8:58 AM
[2020-08-04] MEDS: VERAPAMIL HCL 180 MG TABCR PO SCH (10:21)
--- NOTE | 2020-08-04 10:37 | Cardiology Consultation ---
Date of Consultation August 04, 2020 Assessment & Plan (1) Paroxysmal A-fib: (2) Sepsis: (3) CRISPIN (acute kidney injury): (4) Volume depletion: 85-year-old female developing paroxysmal atrial fibrillation rapid ventricular response overnight in the setting of volume depletion and sepsis. Recommend continued IV and oral hydration. Antibiotics per internal medicine. Restart verapamil 180 mg daily. Wean Cardizem infusion as needed. Her INR is therapeutic. Continue dose Coumadin daily. Consider course of IV amiodarone if patient remains in atrial fibrillation despite adequate volume resuscitation. Thank you for allow me to participate in the care of your patient. I will continue to follow during hospitalization. History of Present Illness Reason for Consultation: Paroxysmal atrial fibrillation with rapid ventricular response Requesting Physician: Dr. Nice Attending Physician: Rubén Nice MD History of Present Illness 85-year-old female presented to the emergency department complaining of weakness, and urinary frequency. CT confirms presence of cystitis and possible diverticulitis. History of paroxysmal atrial fibrillation, however, developed paroxysmal atrial fibrillation overnight. She denies any palpitations, lightheadedness, dizziness, shortness of breath, or chest discomfort at rest. Ventricular rates as high as 150 bpm recorded. Currently her rate has improved with intravenous Cardizem infusion to approximately 90-100 bpm. It appears verapamil has been on hold for the past 36 hours. INR is therapeutic. Patient currently resting comfortably. Denies urinary or abdominal symptoms. No orthopnea, PND, or lower extremity edema. No focal weakness, visual changes, slurred speech, or paresthesias. Denies fever, chills, hematuria, or dysuria. Offers no other concerns/complaints at this time. Allergies Allergy/AdvReac Type Severity Reaction Status Date / Time Bactrim Allergy Intermediate Rash Verified 02/21/18 20:57 sulfamethoxazole Allergy Intermediate Rash Verified 08/02/20 07:57 trimethoprim Allergy Intermediate Rash Verified 08/02/20 07:57 tetanus toxoid, adsorbed Allergy Unknown HIVES Verified 08/02/20 07:57 tetracycline Allergy Unknown hives Verified 08/02/20 07:57 rosuvastatin AdvReac Intermediate Muscle Verified 08/02/20 07:57 stiffness Home Medications Home Medications Medication Instructions Recorded Confirmed Type aspirin [Aspirin Low Dose] 81 mg PO MOWEFR 10/31/18 08/02/20 History cholecalciferol (vitamin D3) 2,000 unit PO QAM 10/31/18 08/02/20 History [Vitamin D3] fluticasone propionate [Flonase 2 spray INTRANASAL HS PRN 10/31/18 08/02/20 History Allergy Relief] levothyroxine 100 mcg PO QAM 10/31/18 08/02/20 History verapamil 180 mg PO QAM 10/31/18 08/02/20 History warfarin 2 mg PO HS 04/03/19 08/02/20 History tamsulosin 0.4 mg capsule 0.4 mg PO HS #90 cap 07/11/19 08/02/20 Rx calcium carbonate [Calcium 500] 500 mg PO DAILY 12/25/19 08/02/20 History docusate sodium [Col-Rite] 100 mg PO HS 06/25/20 08/02/20 History ferrous sulfate 325 mg PO QAM 06/25/20 08/02/20 History glipizide 10 mg PO BID 06/25/20 08/02/20 History rosuvastatin 10 mg PO HS 06/25/20 08/02/20 History ciprofloxacin HCl [Cipro] 250 mg PO Q12H 08/02/20 08/02/20 History lisinopril 10 mg PO QAM 08/02/20 08/02/20 History Patient History Medical History CKD (chronic kidney disease) stage 3, GFR 30-59 ml/min Gram-negative bacteremia HLD (hyperlipidemia) HTN (hypertension) Hypothyroidism Paroxysmal A-fib T2DM (type 2 diabetes mellitus) Surgical History History of breast biopsy History of cholecystectomy History of hysterectomy Family History Mother Breast cancer Hypertension Father , at 92 No problems noted. Social History Smoking Status: Former smoker Second Hand Exposure: No; Do You Dip or Chew Tobacco: No; Tobacco Cessation Education Requested by Patient: No Hx Alcohol Use: No Hx Substance Use: No Preferred Language: Paraguayan Communication Ability: Effective Financial Services Professional Required: No Beliefs That Will Affect Care: Pentecostalism Pentecostalism Beliefs: Jewish marital status: / Current Living Situation: Alone Current Living Situation Comment: "HELPER" 3X/WEEK How many Children do You have: 1 Other Information That Helps Us Care for You: No other: ambulates with cane Feels Safe at Home: Yes Safety Concerns: Feels Safe At This Time Assistive Devices: Walker Assistive Devices Comment: GLASSES NOT PRESENT ON ADMISSION Review of Systems Review of Systems: All systems reviewed & are unremarkable except as noted in HPI & below Physical Exam Constitutional: well nourished; no acute distress Respiratory: normal respiratory effort; no respiratory distress and no labored breathing Auscultation: no crackles, no rales, no rhonchi and no wheezes Cardiovascular: Rate/Rhythm: + tachycardic and + irregularly irregular Heart Sounds: normal S1 and normal S2 Vessels: radial pulses present; no JVD Extremities: no edema Gastrointestinal (Abdomen): Inspection/Auscultation: abdomen normal to inspection and normal bowel sounds; abdomen not distended Percu ssion/Palpation: abdomen soft; abdomen nontender, no guarding and abdomen not rigid Skin: no rashes, warm and dry Neurologic: CN's II-XI intact bilaterally and moves all extremities Motor/Sensory: no tremor Psychiatric: A+Ox3, euthymic affect Results & Data ([facility]) Vital Signs (Past 12 Hours) Vital Signs Temp Pulse Pulse Resp BP BP Pulse Ox 08/04/20 07:41 37.2 C 138 H 18 102/58 L 95 08/04/20 05:51 93/58 L 08/04/20 05:50 155 H 109/69 08/04/20 05:42 157 H 08/04/20 04:46 37.7 C H 157 H 18 95/60 L 90 08/04/20 04:22 37.7 C H 155 H 18 95/55 L 90 08/04/20 00:50 107 H 08/03/20 23:30 37 C 88 18 111/68 91 (1) Sepsis Sepsis acute organ dysfunction status: without acute organ dysfunction Sepsis type: sepsis due to unspecified organism Qualified Code(s): A41.9 - Sepsis, unspecified organism
--- NOTE | 2020-08-04 15:31 | Hospitalist Progress Note ---
Date of Service August 04, 2020 Assessment & Plan (1) Sepsis: Met sepsis criteria on admission with the increase in white count, tachypnea, tachycardia and elevated lactic acid Secondary to UTI as below (2) Acute UTI: -Patient presenting from home with reports of urinary frequency, generalized weakness, chills and rigors -History of E. coli UTI and bacteremia about 1 month ago -Was seen in the ED earlier today however discharged home. Upon arriving home, developed generalized weakness, chills, rigors. -Received intravenous fluid and lactate monitored -Has been on IV Rocephin -Follow urine and blood cultures-yeast -CT ABD/pelvis to evaluate for pyelonephritis and/or stone-negative for any stone and/or acute diverticulitis. Acute cystitis and is consistent with UTI -Clinically much improved Urine culture is growing yeast-we will see how she does and then may need to put her on Diflucan (3) Acute kidney injury superimposed on chronic kidney disease: (4) CKD (chronic kidney disease) stage 3, GFR 30-59 ml/min: -Baseline creatinine 1.0, up to 1.8 today -Likely prerenal in nature secondary to sepsis -IVF, hold lisinopril -Creatinine has been improving, 1.63 on 08/03/2020 (5) Paroxysmal A-fib: -Rate controlled on verapamil, will continue -Anticoagulated on Coumadin, INR 2.4 (6) T2DM (type 2 diabetes mellitus): -Hgb A1c 7.4 06/2020 -Hold oral agents and utilize NovoLog per protocol while hospitalized (7) HTN (hypertension): -BP controlled, holding lisinopril as above (8) DVT prophylaxis: -Anticoagulated on Coumadin, INR 2.4 (9) Atrial fibrillation with RVR: History of PAF and went into A. fib with RVR since yesterday Her Cardizem was on hold on admission due to sepsis Appreciate cardiology input and recommendation Will taper down IV Cardizem and start her verapamil Heart rate seems to be improving Admission and Anticipated Discharge Date Admission Date: August 02, 2020 Subjective 08/03/2020 The patient was seen and examined in medical telemetry unit She has been feeling a lot better since this morning Denies any hypogastric discomfort and no more symptoms on voiding No fever and/or chills 08/04/2020 The patient was seen and examined in telemetry unit She was transferred to telemetry unit as she was having A. fib with RVR and required intravenous Cardizem drip She has been feeling a lot better and complains some hypogastric tenderness Review of Systems Review of Systems: All systems reviewed and are unremarkable except as noted below Neurologic: + generalized weakness Physical Exam Physical Exam: Lying in bed comfortably Constitutional: + thin; no acute distress Eyes: PERRL, conjunctivae normal, anicteric sclerae ENMT: external ear and nose normal, oropharynx normal Neck: trachea midline, no thyromegaly Respiratory: no respiratory distress Auscultation: lungs clear to auscultation bilaterally Cardiovascular: Rate/Rhythm: regular rate and regular rhythm Heart Sounds: no murmur Extremities: no edema Gastrointestinal (Abdomen): Inspection/Auscultation: normal bowel sounds; abdomen not distended Percussion/Palpation: + abdomen tender (Minimal hypogastric tenderness) and abdomen soft Musculoskeletal: Denies any acute pain involving any joint Neurologic: Alert, awake and oriented x3. Very weak Psychiatric: A+Ox3, euthymic affect Lymphatic: no cervical or axillary lymphadenopathy Results & Data Results & Data ([facility]) Vital Signs (Past 12 Hours) Vital Signs Temp Pulse Pulse Resp BP BP Pulse Ox 08/04/20 15:12 36.9 C 94 H 16 98/57 L 95 08/04/20 11:33 36.9 C 88 18 102/64 95 08/04/20 07:41 37.2 C 138 H 18 102/58 L 95 08/04/20 05:51 93/58 L 08/04/20 05:50 155 H 109/69 08/04/20 05:42 157 H 08/04/20 04:46 37.7 C H 157 H 18 95/60 L 90 08/04/20 04:22 37.7 C H 155 H 18 95/55 L 90 Laboratory Results Short CBC 08/04/20 Range/Units 05:25 WBC 8.56 (4.8-10.8) K/uL Hgb 8.4 L (12.0-16.0) g/dL Hct 26.5 L (37-47) % Plt Count 174 (130-400) K/uL BMP 08/04/20 05:25 Sodium 136 Potassium 3.8 Chloride 109 H Carbon Dioxide 22 BUN 34 H Creatinine 1.73 H Glucose 153 H Calcium 6.9 L Medications Administered Current Inpatient Medications Acetaminophen (Acetaminophen 325 Mg Tab) 650 mg PO Q4H PRN PRN Reason: Pain or Fever Stop: 09/01/20 21:12 Last Admin: 08/03/20 13:21 Dose: 650 mg Documented by: Aspirin (Aspirin 81 Mg Ectab) 81 mg PO MoWeFr@0900 [facility] Stop: 09/04/20 08:59 Dextrose (Dextrose 50% 50 Ml Syringe) 25 - 50 ml IV UD PRN; Protocol PRN Reason: Hypoglycemia Protocol Stop: 09/01/20 21:12 Docusate Sodium (Docusate Sodium 100 Mg Cap) 100 mg PO HS [facility] Stop: 09/01/20 21:59 Last Admin: 08/03/20 20:50 Dose: Not Given Documented by: Ferrous Sulfate (Ferrous Sulfate 325 Mg Tab) 325 mg PO QAM [facility] Stop: 09/02/20 08:59 Last Admin: 08/04/20 08:16 Dose: 325 mg Documented by: Glucagon (Glucagon For Inj 1 Mg Vial) 1 mg SQ UD PRN; Protocol PRN Reason: Hypoglycemia Protocol Stop: 09/01/20 21:12 Glucose (Glucose 10 Tabs/Tube) 4 - 8 tabs PO UD PRN; Protocol PRN Reason: Hypoglycemia Protocol Stop: 09/01/20 21:12 Glucose (Glucose 40% Gel 15 Gm Tube) 15 - 30 gm PO UD PRN; Protocol PRN Reason: Hypoglycemia Protocol Stop: 09/01/20 21:12 Diltiazem HCl 125 mg/ Dextrose 125 mls @ 0 mls/hr IV .Q0M NO; Protocol Stop: 09/03/20 03:59 Last Titration: 08/04/20 12:40 Dose: 0 mg/hr, 0 mls/hr Documented by: Sodium Chloride (Nss 1000ml) 1,000 mls @ 50 mls/hr IV .Q20H [facility] Stop: 09/03/20 04:42 Last Admin: 08/04/20 04:58 Dose: 50 mls/hr Documented by: Piperacillin Sod/Tazobactam (Sod 3.375 gm/ Dextrose) 115 mls @ 28.75 mls/hr IV Q12H [facility]; Protocol Stop: 08/13/20 03:59 Insulin Aspart (Insulin Aspart 100 Units/Ml 3 Ml Pen) 0 units SC ACHS [facility] Stop: 09/01/20 21:59 Last Admin: 08/04/20 12:18 Dose: 4 units Documented by: Levothyroxine Sodium (Levothyroxine Sodium 100 Mcg Tablet) 100 mcg PO DAILYBB [facility] Stop: 09/02/20 06:29 Last Admin: 08/04/20 06:08 Dose: 100 mcg Documented by: Loperamide HCl (Loperamide Hcl 2 Mg Cap) 2 mg PO Q2H PRN PRN Reason: Diarrhea Stop: 09/03/20 10:28 Miscellaneous (Carbohydrates For Hypoglycemia ) 15 - 30 gm PO UD PRN PRN Reason: Hypoglycemia Protocol Stop: 09/01/20 21:12 Miscellaneous Information (Piperacill/Tazobac Consult Active) 1 ea N/A UD PRN PRN Reason: Consult Stop: 09/01/20 21:12 Rosuvastatin Calcium (Rosuvastatin Calcium 10 Mg Tab) 10 mg PO [facility] Stop: 09/01/20 21:59 Last Admin: 08/03/20 20:49 Dose: 10 mg Documented by: Tamsulosin HCl (Tamsulosin Hcl 0.4 Mg Cap) 0.4 mg PO [facility] Stop: 09/01/20 21:59 Verapamil HCl (Verapamil Hcl 180 Mg Tabcr) [facility] [place] Stop: 09/02/20 08:59 Last Admin: 08/04/20 10:21 Dose: 180 mg Documented by: Warfarin Sodium (Warfarin Sod 2 Mg Tab) 2 mg PO [facility] Stop: 09/01/20 21:59 Last Admin: 08/03/20 20:50 Dose: 2 mg Documented by: (1) T2DM (type 2 diabetes mellitus) Chronic kidney disease stage: stage 3 (moderate) Diabetes mellitus complication detail: with chronic kidney disease Diabetes mellitus complication status: with kidney complications Diabetes mellitus fpc insulin use: without fpc use Qualified Code(s): E11.22 - Type 2 diabetes mellitus with diabetic chronic kidney disease; N18.3 - Chronic kidney disease, stage 3 (moderate) (2) HTN (hypertension) Hypertension type: essential hypertension Qualified Code(s): I10 - Essential (primary) hypertension
[2020-08-04] MEDS: DOCUSATE SODIUM 100 MG CAP PO SCH (20:24)
[2020-08-04] MEDS: WARFARIN SOD 2 MG TAB PO SCH (20:24)
[2020-08-04] MEDS: ROSUVASTATIN CALCIUM 10 MG TAB PO SCH (20:25)
[2020-08-05] MEDS: SODIUM CHLORIDE 0.9% 1000ML 1,000 ML IV SCH ×2 (04:10→19:55)
[2020-08-05] MEDS: PIPERACILLIN/TAZOBACTAM 3.375 GM in DEXTROSE 5% 100 ML IV SCH ×3 (04:10→20:37)
[2020-08-05] MEDS: LEVOTHYROXINE SODIUM 100 MCG TABLET PO SCH (06:01)
[2020-08-05 06:55] LABS: Basophils # (auto) 0.01 K/uL (0-0.2); Basophils % (auto) 0.2 %; Eosinophils # (auto) 0.26 K/uL (0-0.5); Eosinophils % (auto) 4.2 %; Hemoglobin 7.7 g/dL (12.0-16.0); Immature Granulocytes # (auto) 0.02 K/uL (0.00-0.02); Immature Granulocytes % (auto) 0.3 %; Lymphocytes # (auto) 1.65 K/uL (1.2-3.4); Lymphocytes % (auto) 26.4 %; Mean Corpuscular Hemoglobin 25.5 pg (25-34); Mean Corpuscular Hgb Conc 32.1 g/dL (32-36); Mean Corpuscular Volume 79.5 fL (80-100); Mean Platelet Volume 9.7 fL (7.4-10.4); Monocytes # (auto) 0.45 K/uL (0.11-0.59); Monocytes % (auto) 7.2 %; Neutrophils # (auto) 3.86 K/uL (1.4-6.5); Neutrophils % (auto) 61.7 %; Platelet Count 162 K/uL (130-400); RDW Coefficient of Variation 16.8 % (11.5-14.5); RDW Standard Deviation 48.9 fL (36.4-46.3); Red Blood Count 3.02 M/uL (4.2-5.4); White Blood Count 6.25 K/uL (4.8-10.8)
[2020-08-05 07:25] LABS: BUN Creatinine Ratio 17.2 (10-20); Calcium 7.4 mg/dl (8.5-10.1); Est GFR (African American) 35.6; Est GFR (Non-African American) 30.7; Magnesium 2.1 mg/dl (1.8-2.4)
[2020-08-05 07:37] LABS: Anisocytosis Present
[2020-08-05] MEDS: LOPERAMIDE HCL 2 MG CAP PO PRN ×2 (07:54→09:37)
[2020-08-05] MEDS: FERROUS SULFATE 325 MG TAB PO SCH (07:54)
[2020-08-05] MEDS: ASPIRIN 81 MG ECTAB PO SCH (07:55)
[2020-08-05] MEDS: VERAPAMIL HCL 180 MG TABCR PO SCH (07:55)
[2020-08-05] MEDS: INSULIN ASPART 100 UNITS/ML 3 ML PEN SC SCH ×4 (07:56→20:45)
--- NOTE | 2020-08-05 11:45 | Hospitalist Progress Note ---
Date of Service August 05, 2020 Assessment & Plan (1) Sepsis: Met sepsis criteria on admission with the increase in white count, tachypnea, tachycardia and elevated lactic acid Secondary to UTI as below Urine culture grew yeast not Valeria albicans and blood cultures were negative (2) Acute UTI: -Patient presenting from home with reports of urinary frequency, generalized weakness, chills and rigors -History of E. coli UTI and bacteremia about 1 month ago -Was seen in the ED earlier today however discharged home. Upon arriving home, developed generalized weakness, chills, rigors. -Received intravenous fluid and lactate monitored -Has been on IV Rocephin -Follow urine and blood cultures-yeast -CT ABD/pelvis to evaluate for pyelonephritis and/or stone-negative for any stone and/or acute diverticulitis. Acute cystitis and is consistent with UTI Urine culture is growing yeast-we will see how she does and then may need to put her on Diflucan She denies any dysuria and/or frequency and does not have any hypogastric tenderness and/or pain She is not immunosuppressed and does not have a urinary catheter We will change antibiotic to oral Keflex and will not give any Diflucan to treat yeast (3) Acute kidney injury superimposed on chronic kidney disease: (4) CKD (chronic kidney disease) stage 3, GFR 30-59 ml/min: -Baseline creatinine 1.0, up to 1.8 today -Likely prerenal in nature secondary to sepsis -IVF, hold lisinopril -Creatinine has been improving, 1.63 on 08/03/2020 -Creatinine is even better today (5) Paroxysmal A-fib: -Rate controlled on verapamil, will continue -Anticoagulated on Coumadin, INR 2.4 (6) T2DM (type 2 diabetes mellitus): -Hgb A1c 7.4 06/2020 -Hold oral agents and utilize NovoLog per protocol while hospitalized (7) HTN (hypertension): -BP controlled, holding lisinopril as above (8) DVT prophylaxis: -Anticoagulated on Coumadin, INR 2.4 (9) Atrial fibrillation with RVR: History of PAF and went into A. fib with RVR since yesterday Her Cardizem was on hold on admission due to sepsis Appreciate cardiology input and recommendation Will taper down IV Cardizem and start her verapamil Heart rate seems to be improving Cardizem was weaned off and she will continue with her verapamil PT and OT evaluation We will discharge tomorrow Admission and Anticipated Discharge Date Admission Date: August 02, 2020 Subjective 08/03/2020 The patient was seen and examined in medical telemetry unit She has been feeling a lot better since this morning Denies any hypogastric discomfort and no more symptoms on voiding No fever and/or chills 08/04/2020 The patient was seen and examined in telemetry unit She was transferred to telemetry unit as she was having A. fib with RVR and required intravenous Cardizem drip She has been feeling a lot better and complains some hypogastric tenderness 08/05/2020 The patient was seen and examined in telemetry unit She has been complaining of diarrhea with some lower abdominal pain likely secondary to use of antibiotic Stool has been negative for C. difficile and her symptoms are much better as of today Denies any chest pain, palpitation or shortness of breath Review of Systems Review of Systems: All systems reviewed and are unremarkable except as noted below Gastrointestinal: + diarrhea/loose stools Neurologic: + generalized weakness Physical Exam Physical Exam: Lying in bed comfortably Constitutional: + thin; no acute distress Eyes: PERRL, conjunctivae normal, anicteric sclerae ENMT: external ear and nose normal, oropharynx normal Neck: trachea midline, no thyromegaly Respiratory: no respiratory distress Auscultation: lungs clear to auscultation bilaterally Cardiovascular: Rate/Rhythm: regular rate and regular rhythm Heart Sounds: no murmur Extremities: no edema Gastrointestinal (Abdomen): Inspection/Auscultation: normal bowel sounds; abdomen not distended Percussion/Palpation: abdomen soft; abdomen nontender (Minimal hypogastric tenderness) Musculoskeletal: No acute arthritis in any joint Neurologic: Generally weak but no acute focal neuro deficit Psychiatric: A+Ox3, euthymic affect Lymphatic: no cervical or axillary lymphadenopathy Results & Data Results & Data ([facility]) Vital Signs (Past 12 Hours) Vital Signs Temp Pulse Resp BP BP Pulse Ox 08/05/20 08:00 36.4 C L 86 16 124/51 L 97 08/05/20 03:25 36.8 C 79 18 119/50 L 96 Laboratory Results Short CBC 08/05/20 Range/Units 06:29 WBC 6.25 (4.8-10.8) K/uL Hgb 7.7 L (12.0-16.0) g/dL Hct 24.0 L (37-47) % Plt Count 162 (130-400) K/uL BMP 08/05/20 06:29 Sodium 139 Potassium 4.0 Chloride 111 H Carbon Dioxide 23 BUN 26 H Creatinine 1.52 H Glucose 118 H Calcium 7.4 L Medications Administered Current Inpatient Medications Acetaminophen (Acetaminophen 325 Mg Tab) 650 mg PO Q4H PRN PRN Reason: Pain or Fever Stop: 09/01/20 21:12 Last Admin: 08/03/20 13:21 Dose: 650 mg Documented by: Aspirin (Aspirin 81 Mg Ectab) 81 mg PO MoWeFr@0900 [facility] Stop: 09/04/20 08:59 Last Admin: 08/05/20 07:55 Dose: 81 mg Documented by: Dextrose (Dextrose 50% 50 Ml Syringe) 25 - 50 ml IV UD PRN; Protocol PRN Reason: Hypoglycemia Protocol Stop: 09/01/20 21:12 Docusate Sodium (Docusate Sodium 100 Mg Cap) 100 mg PO HS [facility] Stop: 09/01/20 21:59 Last Admin: 08/04/20 20:24 Dose: Not Given Documented by: Ferrous Sulfate (Ferrous Sulfate 325 Mg Tab) 325 mg PO QAM [facility] Stop: 09/02/20 08:59 Last Admin: 08/05/20 07:54 Dose: 325 mg Documented by: Glucagon (Glucagon For Inj 1 Mg Vial) 1 mg SQ UD PRN; Protocol PRN Reason: Hypoglycemia Protocol Stop: 09/01/20 21:12 Glucose (Glucose 10 Tabs/Tube) 4 - 8 tabs PO UD PRN; Protocol PRN Reason: Hypoglycemia Protocol Stop: 09/01/20 21:12 Glucose (Glucose 40% Gel 15 Gm Tube) 15 - 30 gm PO UD PRN; Protocol PRN Reason: Hypoglycemia Protocol Stop: 09/01/20 21:12 Diltiazem HCl 125 mg/ Dextrose 125 mls @ 0 mls/hr IV .Q0M NO; Protocol Stop: 09/03/20 03:59 Last Titration: 08/04/20 12:40 Dose: 0 mg/hr, 0 mls/hr Documented by: Sodium Chloride (Nss 1000ml) 1,000 mls @ 50 mls/hr IV .Q20H [facility] Stop: 09/03/20 04:42 Last Admin: 08/05/20 04:10 Dose: 50 mls/hr Documented by: Piperacillin Sod/Tazobactam (Sod 3.375 gm/ Dextrose) 115 mls @ 28.75 mls/hr IV Q8H [facility]; Protocol Stop: 08/14/20 15:59 Insulin Aspart (Insulin Aspart 100 Units/Ml 3 Ml Pen) 0 units SC ACHS [facility] Stop: 09/01/20 21:59 Last Admin: 08/05/20 07:56 Dose: 3 units Documented by: Levothyroxine Sodium (Levothyroxine Sodium 100 Mcg Tablet) 100 mcg PO DAILYBB [facility] Stop: 09/02/20 06:29 Last Admin: 08/05/20 06:01 Dose: 100 mcg Documented by: Loperamide HCl (Loperamide Hcl 2 Mg Cap) 2 mg PO Q2H PRN PRN Reason: Diarrhea Stop: 09/03/20 10:28 Last Admin: 08/05/20 09:37 Dose: 2 mg Documented by: Miscellaneous (Carbohydrates For Hypoglycemia ) 15 - 30 gm PO UD PRN PRN Reason: Hypoglycemia Protocol Stop: 09/01/20 21:12 Miscellaneous Information (Piperacill/Tazobac Consult Active) 1 ea N/A UD PRN PRN Reason: Consult Stop: 09/01/20 21:12 Rosuvastatin Calcium (Rosuvastatin Calcium 10 Mg Tab) 10 mg PO [facility] Stop: 09/01/20 21:59 Last Admin: 08/04/20 20:25 Dose: 10 mg Documented by: Tamsulosin HCl (Tamsulosin Hcl 0.4 Mg Cap) 0.4 mg PO [facility] Stop: 09/01/20 21:59 Verapamil HCl (Verapamil Hcl 180 Mg Tabcr) 180 mg PO QAM [facility] Stop: 09/02/20 08:59 Last Admin: 08/05/20 07:55 Dose: 180 mg Documented by: Warfarin Sodium (Warfarin Sod 2 Mg Tab) 2 mg PO [facility] Stop: 09/01/20 21:59 Last Admin: 08/04/20 20:24 Dose: 2 mg Documented by: (1) T2DM (type 2 diabetes mellitus) Diabetes mellitus fpc insulin use: without fpc use Diabetes mellitus complication status: with kidney complications Diabetes mellitus complication detail: with chronic kidney disease Chronic kidney disease stage: stage 3 (moderate) Qualified Code(s): E11.22 - Type 2 diabetes mellitus with diabetic chronic kidney disease; N18.3 - Chronic kidney disease, stage 3 (moderate) (2) HTN (hypertension) Hypertension type: essential hypertension Qualified Code(s): I10 - Essential (primary) hypertension
[2020-08-05] MEDS ORDERED: PIPERACILLIN/TAZOBACTAM 3.375 GM in DEXTROSE 5% 100 ML IV SCH (12:00)
[2020-08-05 12:18] LABS: INR 2.8 (0.9-1.1); Prothrombin Time 28.3 Seconds (9.0-12.0)
[2020-08-05] MEDS ORDERED: PIPERACILL/TAZOBAC CONSULT ACTIVE PRN (12:42)
[2020-08-05] MEDS ORDERED: cephALEXin 250 MG CAP PO SCH (14:00)
--- NOTE | 2020-08-05 14:48 | Cardiology Progress Note ---
Date of Service August 05, 2020 Assessment & Plan (1) Atrial fibrillation with RVR: EKG on 08/03/2020 reveals atrial fibrillation with rapid ventricular response of 140 bpm. Most recent telemetry findings reveal heart rates in the 80s, is difficult to distinguish if she remains in atrial fibrillation or perhaps sinus rhythm with frequent premature atrial contractions. Twelve-lead EKG has been requested for clarification. Diltiazem has been weaned. She is back on grams daily. Has longstanding anemia, hemoglobin typically in the 8 g/dL range, currently 7.7, relatively unchanged compared to previous hospital stay in June 2020. Continue current dose of Coumadin with caution. (2) Sepsis: Urine culture has yielded noncandidal albicans yeast. ID Consultation pending. (3) Acute kidney injury superimposed on chronic kidney disease: Creatinine 1.5 today down from 1.73. Stroke prophylaxis, the patient remains on Coumadin. Are 2.8 today. Admission and Anticipated Discharge Date Admission Date: August 02, 2020 Subjective Patient seen in cardiology follow-up. She states that she is feeling better in terms of dysuria. Denies any subjective palpitations. Review of Systems Review of Systems: All systems reviewed & are unremarkable except as noted in HPI & below Physical Exam Physical Exam: Temp Pulse Resp BP Pulse Ox 36.8 C 82 18 124/68 99 08/05/20 12:00 08/05/20 12:00 08/05/20 12:00 08/05/20 12:00 08/05/20 12:00 Constitutional: WD/WN, vitals as above Respiratory: normal respiratory effort, lungs clear to auscultation Cardiovascular: Rate/Rhythm: + irregularly irregular Heart Sounds: no murmur Extremities: no edema Gastrointestinal (Abdomen): normal bowel sounds, soft, nontender, no hepatosplenomegaly Neurologic: PERRL, EOMI, accommodation nl, no face palsy, no dysarthria Results & Data ([facility]) Vital Signs (Past 12 Hours) Vital Signs Temp Pulse Resp BP BP Pulse Ox 08/05/20 12:00 36.8 C 82 18 124/68 99 08/05/20 08:00 36.4 C L 86 16 124/51 L 97 08/05/20 03:25 36.8 C 79 18 119/50 L 96 (1) Sepsis Sepsis acute organ dysfunction status: without acute organ dysfunction Sepsis type: sepsis due to unspecified organism Qualified Code(s): A41.9 - Sepsis, unspecified organism
[2020-08-05] MEDS: WARFARIN SOD 2 MG TAB PO SCH (20:39)
[2020-08-05] MEDS: DOCUSATE SODIUM 100 MG CAP PO SCH (20:39)
[2020-08-05] MEDS: ROSUVASTATIN CALCIUM 10 MG TAB PO SCH (20:40)
[2020-08-06] MEDS: PIPERACILLIN/TAZOBACTAM 3.375 GM in DEXTROSE 5% 100 ML IV SCH ×2 (04:45→13:12)
[2020-08-06] MEDS: LEVOTHYROXINE SODIUM 100 MCG TABLET PO SCH (05:26)
[2020-08-06 07:56] LABS: Basophils # (auto) 0.01 K/uL (0-0.2); Basophils % (auto) 0.2 %; Eosinophils % (auto) 5.3 %; Hematocrit (blood only) 24.4 % (37-47); Hemoglobin 7.6 g/dL (12.0-16.0); Immature Granulocytes # (auto) 0.01 K/uL (0.00-0.02); Immature Granulocytes % (auto) 0.2 %; Lymphocytes # (auto) 1.26 K/uL (1.2-3.4); Lymphocytes % (auto) 22.2 %; Mean Corpuscular Hemoglobin 24.8 pg (25-34); Mean Corpuscular Hgb Conc 31.1 g/dL (32-36); Mean Corpuscular Volume 79.7 fL (80-100); Mean Platelet Volume 10.1 fL (7.4-10.4); Monocytes % (auto) 7.1 %; Neutrophils # (auto) 3.69 K/uL (1.4-6.5); Platelet Count 184 K/uL (130-400); RDW Coefficient of Variation 16.7 % (11.5-14.5); RDW Standard Deviation 48.9 fL (36.4-46.3); Red Blood Count 3.06 M/uL (4.2-5.4); White Blood Count 5.67 K/uL (4.8-10.8)
[2020-08-06 08:20] LABS: Polychromasia 1+; Spherocytes 1+
[2020-08-06 08:25] LABS: BUN Creatinine Ratio 17.9 (10-20); Creatinine Clr Calc Pharmacy 26.2 ml/min; Est GFR (African American) 44.7; Est GFR (Non-African American) 38.5; Magnesium 1.9 mg/dl (1.8-2.4)
[2020-08-06] MEDS: FERROUS SULFATE 325 MG TAB PO SCH (08:29)
[2020-08-06] MEDS: VERAPAMIL HCL 180 MG TABCR PO SCH (08:29)
[2020-08-06] MEDS: INSULIN ASPART 100 UNITS/ML 3 ML PEN SC SCH ×4 (08:30→20:34)
--- NOTE | 2020-08-06 15:59 | Cardiology Progress Note ---
Date of Service August 06, 2020 Assessment & Plan (1) Atrial fibrillation with RVR: Follow-up EKG performed yesterday 08/06/2020 reveals sinus rhythm with first- degree AV block. Telemetry at present, 08/06/2020 reveals sinus rhythm at 76 bpm. Continue verapamil 180 mg by mouth daily. Continue Coumadin. Infectious disease input noted and appreciated. No treatment necessary for yeast in the urine culture. Patient currently on Zosyn due to concerns of diverticulitis, plans to potentially transition to ciprofloxacin and Flagyl. We will need to consider Flagyl with caution, due to potential interaction with verapamil. Check CBC, CMP, INR in am. Admission and Anticipated Discharge Date Admission Date: August 02, 2020 Subjective Patient resting comfortably. Physical Exam Physical Exam: Temp Pulse Resp BP Pulse Ox 36.8 C 80 18 132/67 95 08/06/20 15:34 08/06/20 15:34 08/06/20 15:34 08/06/20 15:34 08/06/20 15:34 Resting comfortably, further examination not performed. Results & Data ([facility]) Vital Signs (Past 12 Hours) Vital Signs Temp Pulse Resp BP BP Pulse Ox 08/06/20 14:25 36.6 C 101 H 18 127/63 98 08/06/20 08:03 36.5 C 84 16 108/70 96 08/06/20 03:53 36.6 C 76 18 125/60 95
--- NOTE | 2020-08-06 16:42 | Electrocardiogram Report ---
Test Reason : Blood Pressure : / mmHG Vent. Rate : 079 BPM Atrial Rate : 085 BPM P-R Int : 000 ms QRS Dur : 088 ms QT Int : 382 ms P-R-T Axes : 000 -43 -11 degrees QTc Int : 438 ms Atrial fibrillation Left axis deviation Abnormal ECG When compared with ECG of 03-AUG-2020 11:29, Borderline criteria for Anterior infarct are no longer Present T wave inversion now evident in Inferior leads Confirmed by Mich Rico ([id number]) on 08/06/2020 4:42:16 PM Referred By: REFERRED SELF Confirmed By:Mich Rico
--- NOTE | 2020-08-06 16:57 | Hospitalist Progress Note ---
Date of Service August 06, 2020 Assessment & Plan (1) Sepsis: Met sepsis criteria on admission with the increase in white count, tachypnea, tachycardia and elevated lactic acid Secondary to UTI as below Urine culture grew yeast not Valeria albicans and blood cultures were negative Possible mild sigmoid diverticulitis Has been receiving Zosyn intravenously We will change to oral Cipro and Flagyl to continue for a total of 10 days We will use a smaller doses of Flagyl to avoid interaction with verapamil Oral antibiotic may be changed to Augmentin if there is any issue (2) Acute UTI: -Patient presenting from home with reports of urinary frequency, generalized weakness, chills and rigors -History of E. coli UTI and bacteremia about 1 month ago -Was seen in the ED earlier today however discharged home. Upon arriving home, developed generalized weakness, chills, rigors. -Received intravenous fluid and lactate monitored -Has been on IV Rocephin -Follow urine and blood cultures-yeast -CT ABD/pelvis to evaluate for pyelonephritis and/or stone-negative for any stone and/or acute diverticulitis. Acute cystitis and is consistent with UTI Urine culture is growing yeast-we will see how she does and then may need to put her on Diflucan She denies any dysuria and/or frequency and does not have any hypogastric tenderness and/or pain She is not immunosuppressed and does not have a urinary catheter We will change antibiotic to oral Keflex and will not give any Diflucan to treat yeast Appreciate ID input and recommendation (3) Acute kidney injury superimposed on chronic kidney disease: (4) CKD (chronic kidney disease) stage 3, GFR 30-59 ml/min: -Baseline creatinine 1.0, up to 1.8 today -Likely prerenal in nature secondary to sepsis -IVF, hold lisinopril -Creatinine has been improving, 1.63 on 08/03/2020 -Creatinine is even better today with creatinine 1.26 as of 08/06/2020 (5) Paroxysmal A-fib: -Rate controlled on verapamil, will continue -Anticoagulated on Coumadin, INR 2.4 -Rate is controlled with verapamil (6) T2DM (type 2 diabetes mellitus): -Hgb A1c 7.4 06/2020 -Hold oral agents and utilize NovoLog per protocol while hospitalized (7) HTN (hypertension): -BP controlled, holding lisinopril as above (8) DVT prophylaxis: -Anticoagulated on Coumadin, INR 2.4 (9) Atrial fibrillation with RVR: History of PAF and went into A. fib with RVR since yesterday Her Cardizem was on hold on admission due to sepsis Appreciate cardiology input and recommendation Will taper down IV Cardizem and start her verapamil Heart rate seems to be improving Cardizem was weaned off and she will continue with her verapamil PT and OT evaluation Likely discharge tomorrow Admission and Anticipated Discharge Date Admission Date: August 02, 2020 Subjective 08/03/2020 The patient was seen and examined in medical telemetry unit She has been feeling a lot better since this morning Denies any hypogastric discomfort and no more symptoms on voiding No fever and/or chills 08/04/2020 The patient was seen and examined in telemetry unit She was transferred to telemetry unit as she was having A. fib with RVR and required intravenous Cardizem drip She has been feeling a lot better and complains some hypogastric tenderness 08/05/2020 The patient was seen and examined in telemetry unit She has been complaining of diarrhea with some lower abdominal pain likely secondary to use of antibiotic Stool has been negative for C. difficile and her symptoms are much better as of today Denies any chest pain, palpitation or shortness of breath 08/06/2020 The patient was seen and examined in telemetry unit She has had urinary frequency without dysuria last night but none since this morning Her diarrhea seems to be improving No chest pain, palpitation or shortness of breath Review of Systems Review of Systems: All systems reviewed and are unremarkable except as noted below Gastrointestinal: + diarrhea/loose stools Neurologic: + generalized weakness Physical Exam Physical Exam: Lying in bed comfortably Constitutional: + thin; no acute distress Eyes: PERRL, conjunctivae normal, anicteric sclerae ENMT: external ear and nose normal, oropharynx normal Neck: trachea midline, no thyromegaly Respiratory: no respiratory distress Auscultation: lungs clear to auscultation bilaterally Cardiovascular: Rate/Rhythm: regular rate and regular rhythm Heart Sounds: no murmur Extremities: no edema Gastrointestinal (Abdomen): Inspection/Auscultation: normal bowel sounds; abdomen not distended Percussion/Palpation: abdomen soft; abdomen nontender (Minimal hypogastric tenderness) and no guarding Musculoskeletal: No acute arthritis in any joint Neurologic: Alert, awake and oriented x3. No focal sensory and motor deficit appreciated Psychiatric: A+Ox3, euthymic affect Lymphatic: no cervical or axillary lymphadenopathy Results & Data Results & Data ([facility]) Vital Signs (Past 12 Hours) Vital Signs Temp Pulse Resp BP Pulse Ox 08/06/20 15:34 36.8 C 80 18 132/67 95 08/06/20 14:25 36.6 C 101 H 18 127/63 98 08/06/20 08:03 36.5 C 84 16 108/70 96 Laboratory Results Short CBC 08/06/20 Range/Units 07:27 WBC 5.67 (4.8-10.8) K/uL Hgb 7.6 L (12.0-16.0) g/dL Hct 24.4 L (37-47) % Plt Count 184 (130-400) K/uL BMP 08/06/20 07:27 Sodium 138 Potassium 4.0 Chloride 109 H Carbon Dioxide 23 BUN 23 H Creatinine 1.26 H Glucose 119 H Calcium 8.0 L Medications Administered Current Inpatient Medications Acetaminophen (Acetaminophen 325 Mg Tab) 650 mg PO Q4H PRN PRN Reason: Pain or Fever Stop: 09/01/20 21:12 Last Admin: 08/03/20 13:21 Dose: 650 mg Documented by: Aspirin (Aspirin 81 Mg Ectab) 81 mg PO MoWeFr@0900 [facility] Stop: 09/04/20 08:59 Last Admin: 08/05/20 07:55 Dose: 81 mg Documented by: Dextrose (Dextrose 50% 50 Ml Syringe) 25 - 50 ml IV UD PRN; Protocol PRN Reason: Hypoglycemia Protocol Stop: 09/01/20 21:12 Docusate Sodium (Docusate Sodium 100 Mg Cap) 100 mg PO HS [facility] Stop: 09/01/20 21:59 Last Admin: 08/05/20 20:39 Dose: Not Given Documented by: Ferrous Sulfate (Ferrous Sulfate 325 Mg Tab) 325 mg PO QAM [facility] Stop: 09/02/20 08:59 Last Admin: 08/06/20 08:29 Dose: 325 mg Documented by: Glucagon (Glucagon For Inj 1 Mg Vial) 1 mg SQ UD PRN; Protocol PRN Reason: Hypoglycemia Protocol Stop: 09/01/20 21:12 Glucose (Glucose 10 Tabs/Tube) 4 - 8 tabs PO UD PRN; Protocol PRN Reason: Hypoglycemia Protocol Stop: 09/01/20 21:12 Glucose (Glucose 40% Gel 15 Gm Tube) 15 - 30 gm PO UD PRN; Protocol PRN Reason: Hypoglycemia Protocol Stop: 09/01/20 21:12 Piperacillin Sod/Tazobactam (Sod 3.375 gm/ Dextrose) 115 mls @ 28.75 mls/hr IV Q8H NO; Protocol Stop: 08/15/20 12:44 Last Admin: 08/06/20 13:12 Dose: 28.8 mls/hr Documented by: Insulin Aspart (Insulin Aspart 100 Units/Ml 3 Ml Pen) 0 units SC ACHS NO Stop: 09/01/20 21:59 Last Admin: 08/06/20 13:11 Dose: 2 units Documented by: Levothyroxine Sodium (Levothyroxine Sodium 100 Mcg Tablet) 100 mcg PO DAILYBB [facility] Stop: 09/02/20 06:29 Last Admin: 08/06/20 05:26 Dose: 100 mcg Documented by: Loperamide HCl (Loperamide Hcl 2 Mg Cap) 2 mg PO Q2H PRN PRN Reason: Diarrhea Stop: 09/03/20 10:28 Last Admin: 08/05/20 09:37 Dose: 2 mg Documented by: Miscellaneous (Carbohydrates For Hypoglycemia ) 15 - 30 gm PO UD PRN PRN Reason: Hypoglycemia Protocol Stop: 09/01/20 21:12 Miscellaneous Information (Piperacill/Tazobac Consult Active) 1 ea N/A UD PRN PRN Reason: Consult Stop: 09/04/20 12:41 Rosuvastatin Calcium (Rosuvastatin Calcium 10 Mg Tab) 10 mg PO HS [facility] Stop: 09/01/20 21:59 Last Admin: 08/05/20 20:40 Dose: 10 mg Documented by: Tamsulosin HCl (Tamsulosin Hcl 0.4 Mg Cap) 0.4 mg PO HS [facility] Stop: 09/01/20 21:59 Verapamil HCl (Verapamil Hcl 180 Mg Tabcr) 180 mg PO QAM [facility] Stop: 09/02/20 08:59 Last Admin: 08/06/20 08:29 Dose: 180 mg Documented by: Warfarin Sodium (Warfarin Sod 2 Mg Tab) 2 mg PO HS [facility] Stop: 09/01/20 21:59 Last Admin: 08/05/20 20:39 Dose: 2 mg Documented by: (1) T2DM (type 2 diabetes mellitus) Diabetes mellitus correction insulin use: without termite control representative use Diabetes mellitus complication status: with kidney complications Diabetes mellitus complication detail: with chronic kidney disease Chronic kidney disease stage: stage 3 (moderate) Qualified Code(s): E11.22 - Type 2 diabetes mellitus with diabetic chronic kidney disease; N18.3 - Chronic kidney disease, stage 3 (moderate) (2) HTN (hypertension) Hypertension type: essential hypertension Qualified Code(s): I10 - Essential (primary) hypertension
[2020-08-06] MEDS: AMOXICILLIN/CLAVULANATE 500 MG TAB PO SCH (18:30)
[2020-08-06] MEDS: WARFARIN SOD 2 MG TAB PO SCH (20:30)
[2020-08-06] MEDS: DOCUSATE SODIUM 100 MG CAP PO SCH (20:31)
[2020-08-06] MEDS: ROSUVASTATIN CALCIUM 10 MG TAB PO SCH (20:31)
[2020-08-06] MEDS ORDERED: METOPROLOL TARTRATE 1 MG/ML VIAL IV STA (23:48)
[2020-08-07] MEDS: LEVOTHYROXINE SODIUM 100 MCG TABLET PO SCH (06:30)
[2020-08-07] MEDS: ASPIRIN 81 MG ECTAB PO SCH (07:59)
[2020-08-07] MEDS: VERAPAMIL HCL 180 MG TABCR PO SCH (07:59)
[2020-08-07] MEDS: FERROUS SULFATE 325 MG TAB PO SCH (08:00)
[2020-08-07] MEDS: INSULIN ASPART 100 UNITS/ML 3 ML PEN SC SCH ×4 (08:00→20:55)
[2020-08-07] MEDS: AMOXICILLIN/CLAVULANATE 500 MG TAB PO SCH ×2 (08:00→17:23)
[2020-08-07 08:37] LABS: Hematocrit (blood only) 26.4 % (37-47); Hemoglobin 8.4 g/dL (12.0-16.0); Mean Corpuscular Hgb Conc 31.8 g/dL (32-36); Mean Corpuscular Volume 78.6 fL (80-100); Mean Platelet Volume 9.7 fL (7.4-10.4); Platelet Count 185 K/uL (130-400); RDW Coefficient of Variation 16.5 % (11.5-14.5); RDW Standard Deviation 47.3 fL (36.4-46.3); Red Blood Count 3.36 M/uL (4.2-5.4); White Blood Count 5.87 K/uL (4.8-10.8)
[2020-08-07 08:57] LABS: INR 4.5 (0.9-1.1); Prothrombin Time 43.5 Seconds (9.0-12.0)
[2020-08-07 09:02] LABS: Albumin Globulin Ratio 0.7 (0.9-2); Albumin Level 2.4 gm/dl (3.4-5.0); BUN Creatinine Ratio 12.9 (10-20); Bilirubin,Total 0.2 mg/dl (0.2-1); Calcium 8.2 mg/dl (8.5-10.1); Est GFR (African American) 41.8; Est GFR (Non-African American) 36.1; Globulin 3.3 gm/dl (2.5-4.0); Potassium 3.9 mmol/L (3.5-5.1); Total Protein 5.7 gm/dl (6.4-8.2)
--- NOTE | 2020-08-07 13:12 | Cardiology Progress Note ---
Date of Service August 07, 2020 Assessment & Plan (1) Atrial fibrillation with RVR: Continue current dose of verapamil. INR is 4.5, Coumadin held today. Patient is now on Augmentin, IV Zosyn has been discontinued. Continue antibiotics as per the primary team. I think discharge is still reasonable as long as her INR is followed up as an outpatient with anticoagulation clinic. Would consider holding her Coumadin for additional 2 days given antibiotic administration. (2) Sepsis: Admission and Anticipated Discharge Date Admission Date: August 02, 2020 Subjective Patient seen in follow-up of paroxysmal atrial fibrillation. No cardiac complaints. Last evening, she had recurrent atrial fibrillation/flutter observed on telemetry from 2317 until 12:09 AM with subsequent spontaneous conversion to sinus rhythm. She remains in sinus rhythm on telemetry today. Physical Exam Physical Exam: Temp Pulse Resp BP Pulse Ox 36.9 C 76 18 133/65 93 08/07/20 12:21 08/07/20 12:21 08/07/20 12:21 08/07/20 12:21 08/07/20 12:21 Respiratory: normal respiratory effort, lungs clear to auscultation Cardiovascular: RRR, no murmur, no edema Gastrointestinal (Abdomen): normal bowel sounds, soft, nontender, no hepatosplenomegaly Neurologic: PERRL, EOMI, accommodation nl, no face palsy, no dysarthria Results & Data ([facility]) Vital Signs (Past 12 Hours) Vital Signs Temp Pulse Pulse Resp BP BP Pulse Ox 08/07/20 12:21 36.9 C 76 18 133/65 93 08/07/20 07:24 36.4 C L 78 17 128/65 94 08/07/20 03:34 37.4 C 81 18 119/56 L 92 08/07/20 02:00 83 08/07/20 01:58 135 H 08/07/20 01:52 88 (1) Sepsis Sepsis acute organ dysfunction status: without acute organ dysfunction Sepsis type: sepsis due to unspecified organism Qualified Code(s): A41.9 - Sepsis, unspecified organism
--- NOTE | 2020-08-07 14:40 | Hospitalist Progress Note ---
Date of Service August 07, 2020 Assessment & Plan (1) Sepsis: Resuscitated, thought secondary to UTI which came out clear with a small amt of yeast. She denies any further dysuria, urinary urgency or incontinence or other UTI issues at this time (and has been on several days of abx at this point). She was found to have acute dvierticulitis on imaging despite not having any abdominal pain. She improved with IVF and Zosyn and blood cultures were negative. She continues on Augmentin today and reported some diarrhea this morning. Will cont Augmentin to complete a total 7 days of abx. She is on Day 01/24 currently. (2) Acute UTI: Although urine culture was negative, she reported symptoms. She completed 5 days of Zosyn which should cover any new infection. Appears to be resolved. Per ID recommendations, we are not treating the yeast in her urine culture. (3) Acute kidney injury superimposed on chronic kidney disease: Persistent with elevated creat from baseline. Today labs reflect creat inine 1.33 with a baseline of 0.9. Cont holding lisinopril. Cont to monitor in am. (4) Paroxysmal A-fib: -Rate controlled on verapamil, will continue -Anticoagulated on Coumadin, INR supratherapeutic at 4.5 today with no overt bleeding. This is likely 2/2 recent antibiotics. Coumadin on hold. With the recent abx change to Augmentin would like to ensure the INR doesn't trend any higher in am and she doesn't continue to have any GI side effects. INR check in am. (5) T2DM (type 2 diabetes mellitus): -Hgb A1c 7.4 06/2020 -Hold oral agents and utilize NovoLog per protocol while hospitalized She is at inpatient goal. (6) HTN (hypertension): -BP controlled, holding lisinopril as above (7) Anemia: around her baseline levels. No overt bleeding. Some improvement of H/H on check today. Cont workup and treatment as outpatient. (8) DVT prophylaxis: Anticoagulated on Coumadin, INR 4.5 Full Code Dispo-to home with Home Health likely tomorrow. Awaiting improvement on labwork in am and ensure continued clinical improvement overall. Myra Duvall DO [facility] Hospitalist Admission and Anticipated Discharge Date Admission Date: August 02, 2020 Subjective cc: UTI symptoms, admitted with sepsis, currently undergoing treatment for acute diverticulitis Pt feels well Was wondering if she could be dc home She denies CP, SOB, abdominal pain, UTI symptoms at this time. She is tolerating oral food INR supratherapeutic 4.5, no over bleeding Creat still elevated from baseline Patient states that she had UTI symptoms upon coming in but never had abdominal pain, denied flank pain Review of Systems Review of Systems: All systems reviewed & are unremarkable except as noted in Subjective Physical Exam Physical Exam: CONSTITUTIONAL: WNWD, vitals as above, generally well- appearing EYES: normal conjunctivae, no scleral icterus ENT: external ear and nose normal, MMM RESPIRATORY: clear to auscultation bilaterally, no crackles, rales or wheezes, normal respiratory effort CARDIOVASCULAR: S1 and 2 heard without murmurs, gallops or rubs, no JVD, no peripheral edema GASTROINTESTINAL: soft, nontender, nondistended, no guarding. MUSCULOSKELETAL: moves all extremities equally, head is normocephalic and atraumatic SKIN: warm and dry NEUROLOGIC: CN 2-12 grossly intact, normal cognition, normal speech, no gross focal deficits. PSYCHIATRIC: alert cooperative and oriented Results & Data Results & Data ([facility]) Vital Signs (Past 12 Hours) Vital Signs Temp Pulse Resp BP BP Pulse Ox 08/07/20 12:21 36.9 C 76 18 133/65 93 08/07/20 07:24 36.4 C L 78 17 128/65 94 08/07/20 03:34 37.4 C 81 18 119/56 L 92 Laboratory Results Short CBC 08/07/20 Range/Units 08:28 WBC 5.87 (4.8-10.8) K/uL Hgb 8.4 L (12.0-16.0) g/dL Hct 26.4 L (37-47) % Plt Count 185 (130-400) K/uL BMP 08/07/20 08:28 Sodium 136 Potassium 3.9 Chloride 106 Carbon Dioxide 23 BUN 17 Creatinine 1.33 H Glucose 158 H Calcium 8.2 L Liver Function 08/07/20 Range/Units 08:28 Total Bilirubin 0.2 (0.2-1) mg/dl AST 48 H (15-37) U/L ALT 57 (12-78) U/L Alkaline Phosphatase 56 (45-117) U/L Albumin 2.4 L (3.4-5.0) gm/dl Medications Administered Current Inpatient Medications Acetaminophen (Acetaminophen 325 Mg Tab) 650 mg PO Q4H PRN PRN Reason: Pain or Fever Stop: 09/01/20 21:12 Last Admin: 08/03/20 13:21 Dose: 650 mg Documented by: Amoxicillin/Clavulanate Potassium (Amoxicillin/Clavulanate 500 Mg Tab) 1 tab PO BIDM [facility] Stop: 08/16/20 16:59 Last Admin: 08/07/20 08:00 Dose: 1 tab Documented by: Aspirin (Aspirin 81 Mg Ectab) 81 mg PO MoWeFr@0900 [facility] Stop: 09/04/20 08:59 Last Admin: 08/07/20 07:59 Dose: 81 mg Documented by: Dextrose (Dextrose 50% 50 Ml Syringe) 25 - 50 ml IV UD PRN; Protocol PRN Reason: Hypoglycemia Protocol Stop: 09/01/20 21:12 Docusate Sodium (Docusate Sodium 100 Mg Cap) 100 mg PO HS [facility] Stop: 09/01/20 21:59 Last Admin: 08/06/20 20:31 Dose: Not Given Documented by: Ferrous Sulfate (Ferrous Sulfate 325 Mg Tab) 325 mg PO QAM [facility] Stop: 09/02/20 08:59 Last Admin: 08/07/20 08:00 Dose: 325 mg Documented by: Glucagon (Glucagon For Inj 1 Mg Vial) 1 mg SQ UD PRN; Protocol PRN Reason: Hypoglycemia Protocol Stop: 09/01/20 21:12 Glucose (Glucose 10 Tabs/Tube) 4 - 8 tabs PO UD PRN; Protocol PRN Reason: Hypoglycemia Protocol Stop: 09/01/20 21:12 Glucose (Glucose 40% Gel 15 Gm Tube) 15 - 30 gm PO UD PRN; Protocol PRN Reason: Hypoglycemia Protocol Stop: 09/01/20 21:12 Insulin Aspart (Insulin Aspart 100 Units/Ml 3 Ml Pen) 0 units SC ACHS [facility] Stop: 09/01/20 21:59 Last Admin: 08/07/20 12:13 Dose: 3 units Documented by: Levothyroxine Sodium (Levothyroxine Sodium 100 Mcg Tablet) 100 mcg PO DAILYBB [facility] Stop: 09/02/20 06:29 Last Admin: 08/07/20 06:30 Dose: 100 mcg Documented by: Loperamide HCl (Loperamide Hcl 2 Mg Cap) 2 mg PO Q2H PRN PRN Reason: Diarrhea Stop: 09/03/20 10:28 Last Admin: 08/05/20 09:37 Dose: 2 mg Documented by: Miscellaneous (Carbohydrates For Hypoglycemia ) 15 - 30 gm PO UD PRN PRN Reason: Hypoglycemia Protocol Stop: 09/01/20 21:12 Rosuvastatin Calcium (Rosuvastatin Calcium 10 Mg Tab) 10 mg PO [facility] Stop: 09/01/20 21:59 Last Admin: 08/06/20 20:31 Dose: 10 mg Documented by: Tamsulosin HCl (Tamsulosin Hcl 0.4 Mg Cap) 0.4 mg PO [facility] Stop: 09/01/20 21:59 Verapamil HCl (Verapamil Hcl 180 Mg Tabcr) 180 mg PO [facility] Stop: 09/02/20 08:59 Last Admin: 08/07/20 07:59 Dose: 180 mg Documented by: Warfarin Sodium (Warfarin Sod 2 Mg Tab) 2 mg PO [facility] Stop: 09/01/20 21:59 Last Admin: 08/06/20 20:30 Dose: 2 mg Documented by: (1) T2DM (type 2 diabetes mellitus) Diabetes mellitus care home insulin use: without care home use Diabetes mellitus complication status: with kidney complications Diabetes mellitus complication detail: with chronic kidney disease Chronic kidney disease stage: stage 3 (moderate) Qualified Code(s): E11.22 - Type 2 diabetes mellitus with diabetic chronic kidney disease; N18.3 - Chronic kidney disease, stage 3 (moderate) (2) HTN (hypertension) Hypertension type: essential hypertension Qualified Code(s): I10 - Essential (primary) hypertension
[2020-08-07] MEDS: ROSUVASTATIN CALCIUM 10 MG TAB PO SCH (20:47)
[2020-08-07] MEDS: DOCUSATE SODIUM 100 MG CAP PO SCH (20:48)
[2020-08-08] MEDS: LEVOTHYROXINE SODIUM 100 MCG TABLET PO SCH (05:33)
[2020-08-08] MEDS: VERAPAMIL HCL 180 MG TABCR PO SCH (07:38)
[2020-08-08] MEDS: AMOXICILLIN/CLAVULANATE 500 MG TAB PO SCH (07:38)
[2020-08-08] MEDS: FERROUS SULFATE 325 MG TAB PO SCH (07:38)
[2020-08-08] MEDS: INSULIN ASPART 100 UNITS/ML 3 ML PEN SC SCH ×2 (08:18→11:59)
[2020-08-08 08:53] LABS: INR 4.4 (0.9-1.1); Prothrombin Time 42.4 Seconds (9.0-12.0)
[2020-08-08 09:07] LABS: BUN Creatinine Ratio 13.9 (10-20); Calcium 8.7 mg/dl (8.5-10.1); Est GFR (African American) 48.4; Est GFR (Non-African American) 41.7; Potassium 4.2 mmol/L (3.5-5.1)
--- NOTE | 2020-08-08 12:04 | Discharge Summary ---
Date of Service August 08, 2020 Admission HPI Per Admitting Provider 85-year-old female with PMH DM type II, CKD stage III, hypothyroidism, paroxysmal atrial fibrillation anticoagulated on Coumadin, HTN, and other problems listed below who presents the ED for evaluation of generalized weakness and urinary frequency. Patient recently admitted to [facility] 06/26 through 07/09 for E. coli UTI and bacteremia. Patient was discharged to rehab facility for therapy and returned home about 4 days ago. Last week, patient reports she developed urinary frequency. She was seen by PCP and prescribed Cipro which she started taking on 07/31. Patient was seen in the ED this morning for ongoing u rinary frequency. Patient received a dose of IV ceftriaxone and was discharged home. Upon arriving home, patient reports she developed chills and rigors however no fever. She had ongoing urinary frequency and some bladder pressure. She was also very weak. Patient came back to the ED for reevaluation. Patient denies chest pain shortness of breath. No lightheadedness, dizziness, diaphoresis, syncopal events. She denies abdominal pain, nausea, vomiting, diarrhea. Upon arrival to the ED, patient had low-grade temp of 37.9 and mild tachycardia, lactic acid 2.2. Labs from ED visit this morning showed WBC 12 K, creatinine 1.7 (up from baseline of 1.0). Patient was given Tylenol and IVF. Admission Exam Per Admitting Provider Constitutional: WD/WN, vitals as above Eyes: PERRL, conjunctivae normal, anicteric sclerae ENMT: external ear and nose normal, oropharynx normal Respiratory: normal respiratory effort, lungs clear to auscultation Cardiovascular: Rate/Rhythm: regular rate and regular rhythm Vessels: normal peripheral pulses Extremities: no edema Gastrointestinal (Abdomen): normal bowel sounds, soft, nontender, no hepatosplenomegaly Musculoskeletal: no cyanosis or clubbing, extremities motor strength 5/5 Skin: no rashes, warm and dry Neurologic: PERRL, EOMI, accommodation nl, no face palsy, no dysarthria slow to respond at times Psychiatric: A+Ox3, euthymic affect Principal Diagnosis Sepsis Acute UTI Acute diverticulitis Acute kidney injury superimposed on chronic kidney disease Paroxysmal atrial fibrillation Chronic anemia Supratherapeutic INR Discharge Exam CONSTITUTIONAL: WNWD, generally well-appearing EYES: normal conjunctivae, no scleral icterus ENT: external ear and nose normal, MMM RESPIRATORY: clear to auscultation bilaterally, no crackles, rales or wheezes, normal respiratory effort CARDIOVASCULAR: S1 and 2 heard without murmurs, gallops or rubs, no JVD, no peripheral edema GASTROINTESTINAL: soft, nontender, nondistended, no guarding. MUSCULOSKELETAL: moves all extremities equally, head is normocephalic and atraumatic SKIN: warm and dry NEUROLOGIC: CN 2-12 grossly intact, normal cognition, normal speech, no gross focal deficits. PSYCHIATRIC: alert cooperative and oriented Discharge Data Allergies Allergy/AdvReac Type Severity Reaction Status Date / Time Bactrim Allergy Intermediate Rash Verified 02/21/18 20:57 sulfamethoxazole Allergy Intermediate Rash Verified 08/02/20 07:57 trimethoprim Allergy Intermediate Rash Verified 08/02/20 07:57 tetanus toxoid, adsorbed Allergy Unknown HIVES Verified 08/02/20 07:57 tetracycline Allergy Unknown hives Verified 08/02/20 07:57 rosuvastatin AdvReac Intermediate Muscle Verified 08/02/20 07:57 stiffness Consultations 08/02/20 16:47 ED Decision to Admit Stat 08/04/20 08:00 Consult Cardiology Routine 08/05/20 08:00 Consult Infectious Diseases Routine 08/06/20 09:41 Consult Infectious Diseases Routine Ordered Studies [facility], [phone] XRay Report Patient: MARCO ANTONIO BRUNNER Date: 08/02/20MR#: [id number]: [address]ct ID:[id number]: Date: [address] [place] [address] Zip: [place], [place] [address]Qny: 85Location: 2SSex: FRoom/Bed: [address] Phy: Rubén Nice MDDiagnosis: UTI SEPSISPri Phy: Luis Whalen, DOService Date: 08/04/20Fam Phy:Interpreting Phy: Donato Duval MDAdmit Phy: Marifer Hitchcock MD Ordering Phy: Luis Brooks MD cc: ~ XR chest 1V portable HISTORY: Shortness of breath. congestion COMPARISON: Chest 07/05/2020. FINDINGS: The heart is normal in size. Trace bilateral pleural effusions and bibasilar linear densities persist. The upper lung zones remain clear. No evidence for pulmonary edema. No pneumothorax. IMPRESSION: No significant change in the trace bilateral pleural effusions and bibasilar linear densities. This may represent atelectasis or pneumonia. ACT 112: Negative or not required by law. Electronically signed by: Donato Duval M.D. 08/04/2020 8:58 AM Dictated: 08/04/20 0857Transcribed: 08/04/20 0857 [facility], [phone] CT Scan Report Patient: MARCO ANTONIO BRUNNER Date: 08/02/20#: [id number]: [address] ID:[id number]: Date: [address] [place] [address] Zip: [place], [place] [address]Jil: 85Location: EDSex: FRoom/Bed:Att Phy:Diagnosis: CONFUSIONPri Phy: Luis Whalen, DOService Date: 08/02/20Fa Phy:Interpreting Phy: Chad Mustafa MDAdmit Phy: Ordering Phy: Chelle Chau cc: ~ CT OF THE ABDOMEN AND PELVIS WITHOUT CONTRAST CLINICAL HISTORY: ARF, sepsis, UTI COMPARISON STUDY: CT of the abdomen and pelvis December 25, 2019. Renal ultrasound July 02, 2020. TECHNIQUE: Axial images of the abdomen and pelvis were obtained without IV contrast. Images were reviewed in the axial, sagittal, and coronal planes. Automated exposure control was utilized for the study. A dose lowering technique was utilized adhering to the principles of ALARA. FINDINGS: Subpleural opacities within the lung bases reflect atelectasis. No pneumatosis, free air or portal venous gas is present. Unenhanced images of the liver, adrenal glands and pancreas are unremarkable. Mild biliary ductal dilatation is unchanged and likely related to cholecystectomy. There is no peripancreatic infiltration. Mild splenomegaly is unchanged. Punctate right renal calculus is noted. There are no ureteral calculi. There is no hydronephrosis or hydroureter. A few water attenuation left renal lesions are suboptimally assessed on this unenhanced exam but favor cysts. There are few cortical calcifications. There is no evidence for a bowel obstruction. The appendix is normal. There is extensive sigmoid diverticulosis. There is mild adjacent infiltration however this is probably related to the bladder. Bladder wall thickening is noted with moderate adjacent infiltration. Levoscoliosis of the lumbar spine is noted. No acute fracture or suspicious lesion is identified within visualized skeletal structures. There is no lymphadenopathy. IMPRESSION: 1. Moderate bladder wall thickening with adjacent infiltration consistent with cystitis. No hydronephrosis. No ureteral calculi. Punctate right renal calculus. 2. Extensive sigmoid diverticulosis. Mild adjacent infiltration is likely related to cystitis however mild superimposed acute diverticulitis cannot be excluded. No free air. No abscess. 3. No bowel obstruction. 4. Stable mild splenomegaly. ACT 112: Negative or not required by law. Electronically signed by: Chad Mustafa M.D. 08/02/2020 8:36 PM Dictated: 08/02/202026Transcribed: 08/02/202026 [facility], [phone] CT Scan Report Patient: MARCO ANTONIO BRUNNER Date: 08/02/20#: [id number]: [address]ct ID:[id number]: Date: 1935[facility] Zip: [place], [place] [address]Hbl: 85Location: EDSex: FRoom/Bed:Att Phy:Diagnosis: CONFUSIONPri Phy: Luis Whalen, DOService Date: 08/02/20Fa Phy:Interpreting Phy: Tod HouAdmit Phy: Ordering Phy: Doug Lee MD cc: ~ CT head/brain wo con CLINICAL HISTORY: 85 years-old Female with weakness. Acute weakness TECHNIQUE: Multiple axial CT images of the head were obtained without contrast. A dose lowering technique was utilized adhering to the principles of ALARA. CT DOSE: 537.48 mGy.cm COMPARISON: Head CT 06/25/2020 FINDINGS: No acute intracranial hemorrhage, midline shift, intracranial mass, hydrocephalus, territorial ischemia or abnormal extra-axial collection. Age- related involutional changes. Mild patchy white matter hypodensities suggestive of chronic microvascular ischemic disease. Cerebral vascular calcifications. The calvarium is intact. The paranasal sinuses, mastoid air cells, and middle ear cavities are clear. IMPRESSION: No acute intracranial abnormality. ACT 112: Negative or not required by law. The above report was generated using voice recognition software. It may contain grammatical, syntax or spelling errors. Electronically signed by: Bill Hou M.D. 08/02/2020 4:20 PM Dictated: 08/02/201617Transcribed: 08/02/201617 Hospital Course (1) Sepsis: (2) Acute UTI: (3) Acute kidney injury superimposed on chronic kidney disease: (4) Anemia: Patient is an 85-year-old female who presented with increased urinary frequency and urgency as well as chills. She had recently been hospitalized for sepsis secondary to UTI 1 month ago. A urinalysis was performed via straight catheterization revealing no evidence of bacteria but there was presence of yeast.. She was placed on broad-spectrum antibiotics and resuscitated from a sepsis standpoint overnight. Additional imaging included a CT of the abdomen and pelvis revealing extensive sigmoid diverticulosis with possible mild superimposed acute diverticulitis that cannot be excluded. No evidence of free air or abscess or bowel obstruction was seen. There was moderate bladder wall thickening seen with adjacent infiltration consistent with cystitis with no evidence of Hydronephrosis or ureteral calculi and there was evidence of a punctate right renal calculus. Lab work also revealed acute renal failure which improved with IV hydration. A couple of days into the hospitalization she developed paroxysmal atrial fibrillation with rapid ventricular response. Cont inued IV and oral hydration was recommended in the setting of volume depletion and sepsis. Antibiotics were continued and a diltiazem infusion was started. This was transitioned the following day to verapamil 180 mg p.o. daily. Her INR was therapeutic on Coumadin as paroxysmal atrial fibrillation is a chronic issue for her. Cardiology was consulted and made these recommendations and followed h er throughout the remainder of the hospitalization. Of note because of her antibiotic interaction with Coumadin she developed a supratherapeutic INR closer to discharge with the INR consistently 4.5-4.6 the last 2 days of hospitalization. It was recommended that she continue to hold her Coumadin additional 2 days and follow closely with the Coumadin clinic as outpatient. An additional alternative could be that her home health nurse could draw an INR and send it to her primary care doctor for further titration. At time of discharge she was hemodynamically stable and afebrile and tolerating p.o. All initial symptoms resolved and per infectious disease consultation recommendations no further treatment was given for the yeast in the urine. The patient will continue to take scheduled bathroom breaks and have her urine checked immediately upon noticing any urinary tract infection symptoms in the future. She was examined by physical and Occupational Therapy and deemed safe to return home with the support of her daughter. Home health was ordered for continued physical and occupational therapy support. She was discharged in stable condition with close primary care follow-up recommended. Retrospectively, it is more likely that she had acute cystitis and did not have acute diverticulitis as she never developed abdominal pain or other clinical symptoms consistent with diverticulitis. Continued work-up and treatment of chronic anemia as recommended by outpatient primary care doctor. Total Time Total Time Spent Total Time Spent (In Minutes): 60 Total Time Includes: Examination of the Patient, Discharge Planning, Medication Reconciliation, Communication With Other Providers and Other (discussed discharge instructions with daughter by phone, coordinated with CM nurse) Discharge Plan Discharge Items Patient Disposition: Home - Home Health Services Reason For Visit: UTI SEPSIS Discharge Diagnosis: Sepsis 2/2 acute cystitis vs acute diverticulitis Acute kidney injury superimposed on chronic kidney disease Paroxysmal atrial fibrillation Chronic anemia Supratherapeutic INR Condition on Discharge: Good Activity: Resume your previous activity Non-emergency contact: Primary Care Provider Call non-emergency contact if: you have any medication questions, your symptoms worsen, your pain is not controlled, your pain is unusual for you, your pain is concerning for you and you have a fever Follow-up/Referrals: Luis Whalen DO [Primary Care Provider] - (08/14/2020 11:00 AM Provider Luis Whalen DO Department [facility] ) Diet: Carb Consistent or DM2 Addtl Attending Provider Instructions: Please take all medications as instructed on discharge list below. It is recommended that you follow-up with your primary care doctor at the time of the above. At this visit it will be important to ensure your INR is within goal, your vital signs are within normal limits, your renal function has improved completely to baseline, you have no further symptoms of a urinary tract infection and you are overall feeling better since you were discharged back home. You will have home health nursing sent to your house for the next couple of weeks to work on physical and Occupational Therapy and optimizing your physical strength during this time. This may need to be extended and you and your doctor can decide this at the follow-up visit. As we discussed please continue to hold taking your Coumadin today, 08/08, and tomorrow, 08/09. You may resume taking your typical dose of Coumadin after that starting 08/10 with close follow-up with the Coumadin clinic for a INR check no later than Wednesday, 08/12. If you see any signs of bleeding please stop your Coumadin and contact your doctor right away or seek immediate medical attention as appropriate. It was a pleasure taking care of you! Please call if you have any questions or problems. You can reach a [facility] hospitalist on duty at [facility] 24 hours a day by calling [phone]. Take care of yourself. Myra Duvall DO [facility] Hospitalist Pending Studies at Discharge: No Stand-Alone Forms: My [facility] Medications and DC Order Prescriptions: Continued tamsulosin [Flomax] 0.4 mg capsule 0.4 mg PO HS Qty: 90 RF: 3 verapamil 180 mg tablet extended release 180 mg PO QAM RF: 0 aspirin [Aspirin Low Dose] 81 mg Tablet,Delayed Release (Dr/Ec) 81 mg PO MOWEFR RF: 0 fluticasone propionate [Flonase Allergy Relief] 50 mcg/actuation [place],Suspension 2 spray INTRANASAL HS PRN (Reason: Nasal Congestion) RF: 0 cholecalciferol (vitamin D3) [Vitamin D3] 2,000 unit Capsule 2,000 unit PO QAM RF: 0 levothyroxine 100 mcg tablet 100 mcg PO QAM RF: 0 ferrous sulfate 325 mg (65 mg iron) tablet 325 mg PO QAM RF: 0 docusate sodium [Col-Rite] 100 mg capsule 100 mg PO HS RF: 0 glipizide 5 mg tablet 10 mg PO BID RF: 0 rosuvastatin 10 mg tablet 10 mg PO HS RF: 0 warfarin 2 mg tablet 2 mg PO HS RF: 0 calcium carbonate [Calcium 500] 500 mg calcium (1,250 mg) Tablet 500 mg PO DAILY RF: 0 lisinopril 10 mg tablet 10 mg PO QAM RF: 0 Discontinued ciprofloxacin HCl [Cipro] 250 mg tablet 250 mg PO Q12H RF: 0 Discharge Orders: Discharge Order (Routine); Ordered 08/08/20 Ordered By: Myra Duvall Admission Data Admit Date/Time: 08/02/20 17:06 Attending Provider: Myra Duvall Admit Provider: Franca Hitchcock Primary Care Provider: Luis Whalen Other Providers: Faisal Freire ; Racheal Lagunas ; Cameron Hall I. ; Jose Enrique De León II ; Vanessa Araujo ; Herman Bonilla ; Franca Hitchcock ; Raul Slater ; Emre Clark ; Amol Watters ; James Kelley ; KristaFaheem nieves ; Herman Ellington ; Nighat Love ; Haven Murdock ; Naman Ramon ; [facility]
== END 2020-08-08 14:00 | disposition home health service (06) | DRG 872 ==
LOC: ED 14:39 → 2N 17:06 → SUATTDRO 17:06 → 2N 18:37 → 2S 08-04 04:41 → 2N 08-06 20:50

== ENCOUNTER 2020-08-28 19:43 | Inpatient (IN) ==
--- NOTE | 2020-08-28 19:47 | Emergency Department Note ---
Impression & Plan Fall, Closed hip fracture, Supratherapeutic INR ED Provider Note NAME: MARCO ANTONIO BRUNNER AGE: 85 SEX: F : 1935 ARRIVES VIA: Ambulance INFORMANT: Patient, ED PROVIDER(S): Eren Ferro MD Chief Complaint: Fall, hip pain HPI: Patient does present after fall approximate 1 hour ago. The patient was using a walker slipped and fell to her left side. Patient could not get up and mask called an ambulance. The patient did receive 50 fentanyl in route. Patient's pain is improved. The patient denies any headache, neck pain, nausea, vomiting, numbness, tingling, or weakness. Patient denies symptoms of Covid i.e. chest pain, shortness of breath, cough, fever, loss of taste or smell. The patient has seen Dr. Hall with orthopedics in the past for history of arthritis. The patient does take Coumadin and last took it this morning. The patient last ate some soup and bread around noon time and had some water about an hour ago. ROS: See HPI for pertinent positives and negatives. A total of 10 systems were reviewed and otherwise negative. Past medical history: See below Surgical history: See below Social history: See below Physical Exam: GENERAL: Wearing a mask. NAD, non-toxic. EYE EXAM: Normal conjunctiva. PERRL, no anisocoria and EOM's grossly intact w/o pain. NECK: Supple, no nuchal rigidity, no adenopathy, non-tender. No signs of meningismus. LUNGS: Clear to auscultation. Normal chest wall mechanics. HEART: NSR, no MRG. ABDOMEN: Abdomen soft, non-tender, normo-active bowel sounds, no masses, no rebound or guarding. BACK: No CVA TTP. SKIN: No rashes and no bruising. UPPER EXTREMITIES: Upper extremities are grossly normal. LOWER EXTREMITIES: Pain over the lateral aspect of the left hip, patient's leg is slightly flexed and externally rotated, neurovascular intact distally com partments are soft. No pain over the right hip, thigh, knee, high, ankle or foot. NEURO EXAM: A&O x3, cranial nerves II-XII grossly intact, normal speech, decreased range of motion bilateral lower extremity secondary to pain. Differential diagnoses: Fracture, dislocation, contusion, intra-abdominal, pneumothorax, intrathoracic, intracranial, neurologic, compartment syndrome, rhabdomyolysis, as well as other pathologies. Course: Patient was seen and evaluated the bedside. Full history physical exam was performed. EKG: None Imaging Studies: Radiology results as stated below per my review in the radiologist's interpretation: CT OF THE CERVICAL SPINE WITHOUT CONTRAST CLINICAL HISTORY: s/p fall, coumadin COMPARISON STUDY: Cervical spine CT December 25, 2019. TECHNIQUE: Helical axial images of the cervical spine were obtained without IV contrast. Sagittal and coronal reconstructions were viewed. Automated exposure control was utilized for the study. A dose lowering technique was utilized adhering to the principles of ALARA. FINDINGS: Alignment of the cervical spine is anatomic. Vertebral body heights are maintained. No acute cervical spine fracture or subluxation is present. Note is made of an incompletely healed fracture of C2 which was shown on CT of December 25, 2019. The mildly distracted fracture at the base of the odontoid has not healed. Alignment is unchanged. The portion of the fracture which extended through the lateral masses has nearly completely healed. There is no prevertebral edema. Facet joints are intact. Moderate to severe multilevel degenerative changes within the cervical spine are noted. IMPRESSION: 1. No acute cervical spine fracture or subluxation. 2. Incompletely healed minimally distracted fracture of the odontoid which was shown on CT of December 25, 2019. This suggest a nonunion. No change in alignment. ACT 112: Negative or not required by law. Electronically signed by: Chad Mustafa M.D. 08/28/2020 8:55 PM Dictated: 08/28/202047Transcribed: 08/28/202047 CT OF THE HEAD WITHOUT CONTRAST CLINICAL HISTORY: s/p fall, coumadin COMPARISON STUDY: Head CT August 02, 2020. TECHNIQUE: Helical axial images of the head were obtained without IV contrast. Automated exposure control was utilized for the study. A dose lowering technique was utilized adhering to the principles of ALARA. FINDINGS: No acute intracranial hemorrhage, midline shift or mass effect is present. The ventricular system is unremarkable. White matter hypodensities are unchanged and suggest small vessel disease. The basal cisterns are patent. No extra-axial collections are present. There are no findings to suggest acute dural sinus thrombosis or acute territorial infarct. No significant calvarial abnormalities are present. Visualized portions of the sinuses and mastoid air cells are clear. IMPRESSION: 1. No acute intracranial findings. 2. No calvarial fracture. ACT 112: Negative or not required by law. Electronically signed by: Chad Mustafa M.D. 08/28/2020 8:48 PM Dictated: 08/28/202045Transcribed: 08/28/202045 XR hip LT 2V w pelvis CLINICAL HISTORY: Pain following fall. COMPARISON: CT of the abdomen and pelvis August 02, 2020. FINDINGS: There is a probable acute nondisplaced intertrochanteric fracture of the left femur. Fracture is slightly distracted. No additional fractures are identified on this examination. The sacroiliac joints and symphysis pubis are intact. IMPRESSION: Probable acute nondisplaced intertrochanteric fracture of the left femur. A CT of the left hip is recommended for confirmation. ACT 112: Negative or not required by law. Electronically signed by: Chad Mustafa M.D. 08/28/2020 8:17 PM Dictated: 08/28/202012Transcribed: 08/28/202012 CT hip LT wo con CLINICAL HISTORY: possible fracture COMPARISON STUDY: Pelvis and left hip radiographs performed earlier today. TECHNIQUE: Images of the left hip were obtained without IV contrast. Sagittal and coronal reconstructions were viewed. Automated exposure control was utilized for the study. A dose lowering technique was utilized adhering to the principles of ALARA. FINDINGS: Incidental note is made of bladder wall thickening with possible adjacent infiltration. There is an acute comminuted mildly displaced i ntertrochanteric fracture of the left femur. A small amount of adjacent suspected hemorrhage is present. No additional fractures are noted. There are no suspicious osseous lesions. No left inguinal lymphadenopathy is present. There is no soft tissue gas. No fluid collection is identified. IMPRESSION: 1. Acute comminuted mildly displaced intertrochanteric fracture of the left femur. 2. Bladder wall thickening which can be correlated with urinalysis to exclude cystitis. ACT 112: Negative or not required by law. Electronically signed by: Chad Mustafa M.D. 08/28/2020 9:06 PM Dictated: 08/28/202102Transcribed: 08/28/202103 1 view chest x-ray Impression: No obvious pneumothorax, pleural effusion or consolidation. Cardiac monitoring: An order was placed for continuous cardiac monitoring. The monitor shows a rate of 91 with sinus rhythm. MDM: Patient did present status post fall. The patient was initially hypotensive so IV fluids were ordered along with blood work in the event of a possible pelvic fracture. Patient CT of the head and cervical spine are negative. The patient did have a screening chest x-ray completed as the patient did have some intermittent hypoxia. Rapid Covid was obtained which was negative. Patient CTs of the head and neck were negative. The patient's x-ray did show concern for intertrochanteric fracture. The patient did have a CT of the hip performed. Given the fracture I did speak with the on-call hospitalist Dr. Brooks and the p atge was admitted to [facility]. The patient was discussed with the on-call orthopedist Dr. Sherwood who is covering for [facility]. Patient was given IV vitamin K given the patient supratherapeutic INR and likely need for surgery. The patient's anemia is chronic and stable. Do not believe the patient requires transfusion at this time. The patient did have improvement of blood pressure with IV fluids. Patient's kidney function is more or less at baseline. Past Med/Surg History Medical History Acute UTI CKD (chronic kidney disease) stage 3, GFR 30-59 ml/min Gram-negative bacteremia HLD (hyperlipidemia) HTN (hypertension) Hypothyroidism Paroxysmal A-fib Sepsis T2DM (type 2 diabetes mellitus) UTI (urinary tract infection) Surgical History History of breast biopsy History of cholecystectomy History of hysterectomy Family History Mother Breast cancer Hypertension Father , at 92 No problems noted. Social History Smoking Status: Former smoker Second Hand Exposure: No; Hx Alcohol Use: No Hx Substance Use: No Preferred Language: Palauan Communication Ability: Effective Photograph Mounter Required: No Beliefs That Will Affect Care: Adventism Adventism Beliefs: Doroteo marital status: / Current Living Situation: Alone Current Living Situation Comment: "[facility]PER" 3X/WEEK How many Children do You have: 1 other: ambulates with cane Feels Safe at Home: Yes Assistive Devices: Walker Allergies Allergies Allergy/AdvReac Type Severity Reaction Status Date / Time sulfamethoxazole Allergy Intermediate Rash Verified 08/28/20 22:11 trimethoprim Allergy Intermediate Rash Verified 08/28/20 22:11 tetanus toxoid, adsorbed Allergy Unknown HIVES Verified 08/28/20 22:11 tetracycline Allergy Unknown hives Verified 08/28/20 22:11 rosuvastatin AdvReac Intermediate Muscle Verified 08/28/20 22:11 stiffness Home Meds Home Medications Medication Instructions Recorded Confirmed aspirin [Aspirin Low Dose] 81 mg PO MOWEFR 10/31/18 08/28/20 cholecalciferol (vitamin D3) 2,000 unit PO QAM 10/31/18 08/28/20 [Vitamin D3] fluticasone propionate [Flonase 2 spray INTRANASAL HS PRN 10/31/18 08/28/20 Allergy Relief] levothyroxine 100 mcg PO DAILYBB 10/31/18 08/28/20 verapamil 180 mg PO QAM 10/31/18 08/28/20 warfarin 2 mg PO HS 04/03/19 08/28/20 calcium carbonate [Calcium 500] 500 mg PO DAILY 12/25/19 08/28/20 docusate sodium [Col-Rite] 100 mg PO HS 06/25/20 08/28/20 ferrous sulfate 325 mg PO QAM 06/25/20 08/28/20 glipizide 10 mg PO BIDM 06/25/20 08/28/20 rosuvastatin 10 mg PO HS 06/25/20 08/28/20 lisinopril 10 mg PO QAM 08/02/20 08/28/20 Previous Rx's Medication Instructions Recorded tamsulosin 0.4 mg capsule 0.4 mg PO HS #90 cap 07/11/19 Results & Data (ED) Vital Signs Vital Signs - 24 hr 08/28/20 19:55 08/28/20 20:06 08/28/20 20:30 Temperature 37.0 C Temperature Source Oral Pulse Rate 83 82 Pulse Rate from SpO2 Sensor 82 Pulse Rhythm Regular Respiratory Rate 16 19 Respiratory Effort / Characteristics Non-Labored Spontaneous Respiratory Depth Normal Blood Pressure 87/30 L 95/41 L Blood Pressure [Right Arm] 99/36 L Blood Pressure Mean 49 63 Blood Pressure Mean [Right Arm] 57 Pulse Oximetry 89 L 94 86 L Oxygen Delivery Method Room Air Nasal Cannula Room Air Oxygen Flow Rate 2 Sepsis Recent Fever Within 48 Hours No Sepsis New/Unexplained Change in Mental Status No Sepsis Action Taken by Nursing No Action Required 08/28/20 20:55 08/28/20 20:58 08/28/20 21:00 Temperature Temperature Source Pulse Rate 81 79 Pulse Rate from SpO2 Sensor 81 84 Pulse Rhythm Respiratory Rate 21 16 Respiratory Effort / Characteristics Respiratory Depth Blood Pressure 106/48 L Blood Pressure [Right Arm] Blood Pressure Mean 74 Blood Pressure Mean [Right Arm] Pulse Oximetry 98 87 L 98 Oxygen Delivery Method Nasal Cannula Room Air Oxygen Flow Rate 3 Sepsis Recent Fever Within 48 Hours Sepsis New/Unexplained Change in Mental Status Sepsis Action Taken by Nursing 08/28/20 21:01 08/28/20 21:10 08/28/20 21:20 Temperature Temperature Source Pulse Rate 78 80 80 Pulse Rate from SpO2 Sensor 78 79 80 Pulse Rhythm Respiratory Rate 17 18 18 Respiratory Effort / Characteristics Respiratory Depth Blood Pressure Blood Pressure [Right Arm] Blood Pressure Mean Blood Pressure Mean [Right Arm] Pulse Oximetry 98 100 100 Oxygen Delivery Method Oxygen Flow Rate Sepsis Recent Fever Within 48 Hours Sepsis New/Unexplained Change in Mental Status Sepsis Action Taken by Nursing 08/28/20 21:30 08/28/20 21:31 08/28/20 21:40 Temperature Temperature Source Pulse Rate 80 87 80 Pulse Rate from SpO2 Sensor 81 87 81 Pulse Rhythm Respiratory Rate 16 23 17 Respiratory Effort / Characteristics Respiratory Depth Blood Pressure 129/55 L Blood Pressure [Right Arm] Blood Pressure Mean 87 Blood Pressure Mean [Right Arm] Pulse Oximetry 96 94 95 Oxygen Delivery Method Oxygen Flow Rate Sepsis Recent Fever Within 48 Hours Sepsis New/Unexplained Change in Mental Status Sepsis Action Taken by Nursing 08/28/20 21:50 08/28/20 22:00 08/28/20 22:01 Temperature Temperature Source Pulse Rate 86 85 88 Pulse Rate from SpO2 Sensor 85 87 87 Pulse Rhythm Respiratory Rate 17 21 22 Respiratory Effort / Characteristics Respiratory Depth Blood Pressure 133/44 L Blood Pressure [Right Arm] Blood Pressure Mean 76 Blood Pressure Mean [Right Arm] Pulse Oximetry 97 97 97 Oxygen Delivery Method Oxygen Flow Rate Sepsis Recent Fever Within 48 Hours Sepsis New/Unexplained Change in Mental Status Sepsis Action Taken by Nursing 08/28/20 22:02 08/28/20 22:10 Temperature Temperature Source Pulse Rate 88 86 Pulse Rate from SpO2 Sensor 89 85 Pulse Rhythm Respiratory Rate 23 18 Respiratory Effort / Characteristics Respiratory Depth Blood Pressure Blood Pressure [Right Arm] Blood Pressure Mean Blood Pressure Mean [Right Arm] Pulse Oximetry 97 92 Oxygen Delivery Method Room Air Oxygen Flow Rate Sepsis Recent Fever Within 48 Hours Sepsis New/Unexplained Change in Mental Status Sepsis Action Taken by [facility] Medications Current Medication List: was personally reviewed by me Laboratory Data Attestation: I reviewed the patient's lab results. Result diagrams: 08/28/20 20:00 08/28/20 20:00 Lab Results 08/28/20 08/28/20 08/28/20 Range/Units 20:00 20:00 20:00 WBC 8.84 (4.8-10.8) K/uL RBC 3.32 L (4.2-5.4) M/uL Hgb 8.3 L (12.0-16.0) g/dL Hct 26.3 L (37-47) % MCV 79.2 L (80-100) fL MCH 25.0 (25-34) pg MCHC 31.6 L (32-36) g/dL RDW Std Deviation 52.4 H (36.4-46.3) fL RDW Coeff of Hope 18.1 H (11.5-14.5) % Plt Count 183 (130-400) K/uL MPV 10.1 (7.4-10.4) fL Immature Gran % (Auto) 0.3 % Neut % (Auto) 68.4 % Lymph % (Auto) 20.5 % [place] % (Auto) 9.8 % Eos % (Auto) 0.9 % Baso % (Auto) 0.1 % Neut # (Auto) 6.04 (1.4-6.5) K/uL Lymph # (Auto) 1.81 (1.2-3.4) K/uL [place] # (Auto) 0.87 H (0.11-0.59) K/uL Eos # (Auto) 0.08 (0-0.5) K/uL Baso # (Auto) 0.01 (0-0.2) K/uL Immature Gran # (Auto) 0.03 H (0.00-0.02) K/uL PT 46.1 H (9.0-12.0) Seconds INR 4.8 H (0.9-1.1) APTT 34.8 H (21.0-31.0) Seconds PTT Ratio 1.2 Sodium 135 L (136-145) mmol/L Potassium 4.5 (3.5-5.1) mmol/L Chloride 104 (98-107) mmol/L Carbon Dioxide 23 (21-32) mmol/L Anion Gap 8.0 (3-11) BUN 33 H (7-18) mg/dl Creatinine 1.44 H (0.6-1.2) mg/dl Est Cr Clr Drug Dosing 22.9 ml/min Est GFR ( Amer) 38.0 Est GFR (Non-Af Amer) 32.8 BUN/Creatinine Ratio 22.6 H (10-20) Glucose 118 H (70-99) mg/dl Calcium 9.3 (8.5-10.1) mg/dl SARS-CoV-2 Ag (Rapid) (Negative) Blood Type Antibody Screen 08/28/20 08/28/20 Range/Units 20:13 21:41 WBC (4.8-10.8) K/uL RBC (4.2-5.4) M/uL Hgb (12.0-16.0) g/dL Hct (37-47) % MCV (80-100) fL MCH (25-34) pg MCHC (32-36) g/dL RDW Std Deviation (36.4-46.3) fL RDW Coeff of Hope (11.5-14.5) % Plt Count (130-400) K/uL MPV (7.4-10.4) fL Immature Gran % (Auto) % Neut % (Auto) % Lymph % (Auto) % [place] % (Auto) % Eos % (Auto) % Baso % (Auto) % Neut # (Auto) (1.4-6.5) K/uL Lymph # (Auto) (1.2-3.4) K/uL [place] # (Auto) (0.11-0.59) K/uL Eos # (Auto) (0-0.5) K/uL Baso # (Auto) (0-0.2) K/uL Immature Gran # (Auto) (0.00-0.02) K/uL PT (9.0-12.0) Seconds INR (0.9-1.1) APTT (21.0-31.0) Seconds PTT Ratio Sodium (136-145) mmol/L Potassium (3.5-5.1) mmol/L Chloride (98-107) mmol/L Carbon Dioxide (21-32) mmol/L Anion Gap (3-11) BUN (7-18) mg/dl Creatinine (0.6-1.2) mg/dl Est Cr Clr Drug Dosing ml/min Est GFR ( Amer) Est GFR (Non-Af Amer) BUN/Creatinine Ratio (10-20) Glucose (70-99) mg/dl Calcium (8.5-10.1) mg/dl SARS-CoV-2 Ag (Rapid) Negative (Negative) Blood Type A Positive Antibody Screen NEGATIVE Administered Medications Discontinued Medications Sodium Chloride (Nss 1000ml) 500 mls @ 999 mls/hr IV .Q31M ONE Stop: 08/28/20 21:44 Last Infusion: 08/28/20 22:17 Dose: 0 mls/hr Documented by: [id number] Admin: 08/28/20 21:15 Dose: 999 mls/hr Documented by: [id number] Phytonadione 10 mg/ Sodium (Chloride) 51 mls @ 102 mls/hr IV ONE ONE Stop: 08/28/20 21:45 Last Infusion: 08/28/20 22:50 Dose: 0 mls/hr Documented by: [id number] Admin: 08/28/20 22:17 Dose: 102 mls/hr Documented by: [id number] Discharge Plan Visit Data Chief Complaint: Fall Stated Complaint: FALL, HIP PAIN ED Provider: Eren Ferro Discharge Problem: Fall, Closed hip fracture, Supratherapeutic INR Discharge Instructions Interventions: ED Discharge Assessment Last Done: 08/28/20 22:55 Discharge Problem: Fall Qualifiers: Encounter type: initial encounter Qualified Code(s): W19.XXXA - Unspecified fall, initial encounter Closed hip fracture Qualifiers: Encounter type: initial encounter Laterality: left Qualified Code(s): S72.002A - Fracture of unspecified part of neck of left femur, initial encounter for closed fracture
[2020-08-28] MEDS ORDERED: MoRPHine SULFATE 2 MG/ML CARP IV PRN ×2 (20:08→23:25)
[2020-08-28 20:16] LABS: Basophils # (auto) 0.01 K/uL (0-0.2); Basophils % (auto) 0.1 %; Eosinophils # (auto) 0.08 K/uL (0-0.5); Eosinophils % (auto) 0.9 %; Hematocrit (blood only) 26.3 % (37-47); Hemoglobin 8.3 g/dL (12.0-16.0); Immature Granulocytes # (auto) 0.03 K/uL (0.00-0.02); Immature Granulocytes % (auto) 0.3 %; Lymphocytes # (auto) 1.81 K/uL (1.2-3.4); Lymphocytes % (auto) 20.5 %; Mean Corpuscular Hgb Conc 31.6 g/dL (32-36); Mean Corpuscular Volume 79.2 fL (80-100); Mean Platelet Volume 10.1 fL (7.4-10.4); Monocytes # (auto) 0.87 K/uL (0.11-0.59); Monocytes % (auto) 9.8 %; Neutrophils # (auto) 6.04 K/uL (1.4-6.5); Neutrophils % (auto) 68.4 %; Platelet Count 183 K/uL (130-400); RDW Coefficient of Variation 18.1 % (11.5-14.5); RDW Standard Deviation 52.4 fL (36.4-46.3); Red Blood Count 3.32 M/uL (4.2-5.4); White Blood Count 8.84 K/uL (4.8-10.8)
--- NOTE | 2020-08-28 20:18 | XRay Report ---
XR hip LT 2V w pelvis CLINICAL HISTORY: Pain following fall. COMPARISON: CT of the abdomen and pelvis August 02, 2020. FINDINGS: There is a probable acute nondisplaced intertrochanteric fracture of the left femur. Fract ure is slightly distracted. No additional fractures are identified on this examination. The sacroilia c joints and symphysis pubis are intact. IMPRESSION: Probable acute nondisplaced intertrochanteric fracture of the left femur. A CT of the lef t hip is recommended for confirmation. ACT 112: Negative or not required by law. Electronically signed by: Chad Mustafa M.D. 08/28/2020 8:17 PM
[2020-08-28 20:26] LABS: BUN Creatinine Ratio 22.6 (10-20); Calcium 9.3 mg/dl (8.5-10.1); Creatinine Clr Calc Pharmacy 22.9 ml/min; Est GFR (Non-African American) 32.8; Potassium 4.5 mmol/L (3.5-5.1)
--- NOTE | 2020-08-28 20:49 | CT Scan Report ---
CT OF THE HEAD WITHOUT CONTRAST CLINICAL HISTORY: s/p fall, coumadin COMPARISON STUDY: Head CT August 02, 2020. TECHNIQUE: Helical axial images of the head were obtained without IV contrast. Automated exposure con trol was utilized for the study. A dose lowering technique was utilized adhering to the principles o f ALARA. FINDINGS: No acute intracranial hemorrhage, midline shift or mass effect is present. The ventricular system is unremarkable. White matter hypodensities are unchanged and suggest small vessel disease. Th e basal cisterns are patent. No extra-axial collections are present. There are no findings to suggest acute dural sinus thrombosis or acute territorial infarct. No significant calvarial abnormalities ar e present. Visualized portions of the sinuses and mastoid air cells are clear. IMPRESSION: 1. No acute intracranial findings. 2. No calvarial fracture. ACT 112: Negative or not required by law. Electronically signed by: Chad Mustafa M.D. 08/28/2020 8:48 PM
[2020-08-28 20:51] LABS: INR 4.8 (0.9-1.1); Partial Thromboplastin Ratio 1.2; Partial Thromboplastin Time 34.8 Seconds (21.0-31.0); Prothrombin Time 46.1 Seconds (9.0-12.0)
--- NOTE | 2020-08-28 20:56 | CT Scan Report ---
CT OF THE CERVICAL SPINE WITHOUT CONTRAST CLINICAL HISTORY: s/p fall, coumadin COMPARISON STUDY: Cervical spine CT December 25, 2019. TECHNIQUE: Helical axial images of the cervical spine were obtained without IV contrast. Sagittal a nd coronal reconstructions were viewed. Automated exposure control was utilized for the study. A do se lowering technique was utilized adhering to the principles of ALARA. FINDINGS: Alignment of the cervical spine is anatomic. Vertebral body heights are maintained. No acut e cervical spine fracture or subluxation is present. Note is made of an incompletely healed fracture of C2 which was shown on CT of December 25, 2019. The mildly distracted fracture at the base of the odont oid has not healed. Alignment is unchanged. The portion of the fracture which extended through the la teral masses has nearly completely healed. There is no prevertebral edema. Facet joints are intact. Moderate to severe multilevel degenerative changes within the cervical spine are noted. IMPRESSION: 1. No acute cervical spine fracture or subluxation. 2. Incompletely healed minimally distracted fracture of the odontoid which was shown on CT of December. This suggest a nonunion. No change in alignment. ACT 112: Negative or not required by law. Electronically signed by: Chad Mustafa M.D. 08/28/2020 8:55 PM
--- NOTE | 2020-08-28 21:08 | CT Scan Report ---
CT hip LT wo con CLINICAL HISTORY: possible fracture COMPARISON STUDY: Pelvis and left hip radiographs performed earlier today. TECHNIQUE: Images of the left hip were obtained without IV contrast. Sagittal and coronal reconstruct ions were viewed. Automated exposure control was utilized for the study. A dose lowering technique w as utilized adhering to the principles of ALARA. FINDINGS: Incidental note is made of bladder wall thickening with possible adjacent infiltration. The re is an acute comminuted mildly displaced intertrochanteric fracture of the left femur. A small amou nt of adjacent suspected hemorrhage is present. No additional fractures are noted. There are no suspi cious osseous lesions. No left inguinal lymphadenopathy is present. There is no soft tissue gas. No f luid collection is identified. IMPRESSION: 1. Acute comminuted mildly displaced intertrochanteric fracture of the left femur. 2. Bladder wall thickening which can be correlated with urinalysis to exclude cystitis. ACT 112: Negative or not required by law. Electronically signed by: Chad Mustafa M.D. 08/28/2020 9:06 PM
[2020-08-28] MEDS ORDERED: SODIUM CHLORIDE 0.9% 1000ML 500 ML IV ONE (21:14)
[2020-08-28] MEDS ORDERED: PHYTONADIONE 10 MG in SODIUM CHLORIDE 0.9% 50 ML IV ONE (21:16)
[2020-08-28] MEDS ORDERED: ONDANSETRON INJ 2 MG/ML 2 ML VIAL IV PRN (23:25)
[2020-08-28] MEDS ORDERED: FLUTICASONE PROPIONATE NA SPR 16 GM BTL PRN (23:25)
[2020-08-28] MEDS ORDERED: NITROGLYCERIN SL 0.4 MG/TAB TAB SL PRN (23:25)
--- NOTE | 2020-08-28 23:43 | History and Physical Report ---
DATE OF ADMISSION: 08/28/2020 CHIEF COMPLAINT: Status post fall and left hip fracture. HISTORY OF PRESENT ILLNESS: This is an 85-year-old female with past medical history significant for type 2 diabetes, hypothyroidism, chronic kidney disease stage IV, paroxysmal atrial fibrillation, hypertension, history of traumatic subdural hematoma, history of MRSA infection, history of depression, statin intolerance, who lives alone at home and ambulates with a walker. Daughter lives close by. Today in the evening when she was trying to walk with her walker, she fell on the left side and she could not get up and had pain. Did not hit her head, no loss of consciousness. Daughter came to check on her and she was found on the floor and she was brought in here and found to have left hip fracture. En route, she received fentanyl and currently she was 88% on room air, requiring oxygen, currently stable and comfortable and hemodynamically stable. Denies any headache, no blurred visions, no sore throat. Has cough, but she attributes it to postnasal drip. No loss of sense of smell or taste. She did not eat today because her appetite was not that great today. No dysphagia, no chest pain, no shortness of breath, no nausea, no abdominal pain. She moved her normal bowel movement yesterday. Normal bladder movements.Hx of recurrent uti and urosepsis. ALLERGIES: TETANUS TOXOID, TETRACYCLINE, BACTRIM. PAST MEDICAL HISTORY: As mentioned above. PAST SURGICAL HISTORY: Biopsy of the breast, colonoscopy, dental surgery, lumbosacral spine injection. MEDICATIONS: The patient is on aspirin 81 mg p.o. on Wednesday, Wednesday and Wednesday; calcium carbonate 500 mg p.o. daily, vitamin D 2000 units p.o. a.m., Colace 100 mg at p.o. at bedtime, ferrous sulfate 325 mg p.o. a.m., Flonase 2 sprays intranasal bedtime p.r.n., glipizide 10 mg p.o. b.i.d., levothyroxine 100 mcg p.o. daily, lisinopril 10 mg p.o. a.m., lovastatin 10 mg at bedtime, Flomax 0.4 mg at bedtime, verapamil 180 mg p.o. a.m., warfarin 2 mg p.o. at bedtime. FAMILY HISTORY: Significant for mother had breast cancer, hypertension; brother has hypertension. SOCIAL HISTORY: , lives alone. No smoking, no alcohol, no drug use. REVIEW OF SYSTEMS: As per HPI. Rest of the review of systems negative. PHYSICAL EXAMINATION: GENERAL: The patient is old and frail, not in acute distress. VITAL SIGNS: Temperature 37, pulse 86, respiratory rate 18, blood pressure 133/44, oxygen 92% on room air. HEENT: Pupils equal, round, and reactive to light. Oral mucosa dry. NECK: No neck masses seen. CARDIOVASCULAR: S1, S2 heard. Regular rate and rhythm. No murmur, no gallop. RESPIRATORY SYSTEM: Normal AP diameter. No accessory muscle use. No wheezing, no crackles. ABDOMEN: Soft, bowel sounds present. Nontender. No distention. CENTRAL NERVOUS SYSTEM: Alert and oriented. Speech clear. No facial droop. Moves extremities. EXTREMITIES: Left lower extremity is shortened and externally rotated. No edema or erythema seen. LABORATORY DATA: WBC 8.8, hemoglobin 8.3, hematocrit 26.3, platelets 183. PT 46.1, INR 4.8, APTT 34.8. Sodium 135, potassium 4.5, chloride 104, bicarbonate 23, BUN 33, creatinine 1.44, serum glucose 118, calcium 9.3. IMAGING DATA: Chest x-ray, no acute findings seen. Hip CT on the left side, acute comminuted, mildly displaced intertrochanteric fracture of the left femur. Bladder wall thickening which can be correlated with urinalysis to exclude cystitis. Left hip x-ray, probable acute nondisplaced intertrochanteric fracture of the left femur. CT of the head, no acute intracranial findings. Cervical spine CT, no acute cervical spine fracture or subluxation. Incompletely healed minimally distracted fracture of the odontoid which was found on CT of 12/25/2019, it suggests nonunion, no change in alignment. ASSESSMENT AND PLAN: This 85-year-old female presents with a fall and left hip fracture. 1. Mechanical fall, acute comminuted left femur fracture. Pain controlled with IV morphine p.r.n., n.p.o., IV fluids. The patient's labs and chest x-ray are okay. We will follow the EKG. The patient ambulates with help of walker at home. If EKG ok the patient should be at acceptable risk to proceed with surgery. Consult orthopedics in the a.m. 2. History of urosepsis in the past. The daughter is worried that she had some fever yesterday, but it got resolved. Currently hemodynamically stable. We will follow the urinalysis. 3. History of atrial fibrillation. We will continue verapamil. Her INR is 4.8. Holding Coumadin. Received IV vitamin K in the ER for possible procedure in the a.m. We will the follow PT/INR. Restart Coumadin when able. 4. History of hypertension. Continue verapamil, withholding parameters. We are holding lisinopril for possible surgery in the a.m. We will monitor the blood pressure. 5. History of diabetes. Will Hold glipizide. We will place on insulin sliding scale. Follow the blood sugar and follow HbA1c levels. 6. History of hypothyroidism. Continue Synthroid. 7. History of hyperlipidemia. Continue statin. 8. History of chronic kidney disease stage IV. Baseline creatinine around 1.1-1.2, currently with creatinine of 1.4. on fluids. We will follow the labs in a.m. 9. Hypoxia. After fenatanyl. Oxygen. Will follow. 10. Hx of anemia. AOCD. hb stable at 8.3. Will follow labs. 11. History of traumatic subdural hematoma. CT head is okay. 12. History of methicillin-resistant Staphylococcus aureus. 13. History of mild episode of depression. 14. Deep venous thrombosis prophylaxis. INR is 4.8 today. Getting vitamin K. Cannot place on sequential compression devices because of the hip fracture. Restart anticoagulation as per ortho. 15. Disposition: Admit to [facility] as the patient was hypoxic in the ER PT and OT prior to discharge. Social service to help with discharge planning. LOUANN
[2020-08-28] MEDS ORDERED: DEXTROSE 50% 50 ML SYRINGE IV PRN (23:45)
[2020-08-28] MEDS ORDERED: CARBOHYDRATES FOR HYPOGLYCEMIA PO PRN (23:45)
[2020-08-28] MEDS ORDERED: GLUCOSE 10 TABS/TUBE PO PRN (23:45)
[2020-08-28] MEDS ORDERED: GLUCOSE 40% GEL 15 GM TUBE PO PRN (23:45)
[2020-08-28] MEDS ORDERED: GLUCAGON FOR INJ 1 MG VIAL SQ PRN (23:45)
[2020-08-29] MEDS: SODIUM CHLORIDE 0.9% 1000ML 1,000 ML IV SCH ×2 (00:06→17:49)
[2020-08-29 00:36] LABS: Appearance Urine Turbid (Clear); Bacteria Urine Automated 4+ (Negative); Bilirubin Urine Negative (Negative); Blood Urine 2+ (Negative); Cast Urine Automated 0 /lpf (0-5); Color Urine Yellow; Glucose Urine UA Negative (Negative); Ketones Urine Negative (Negative); Leukocyte Esterase Urine 3+ (Negative); Nitrite Urine Negative (Negative); Protein Urine 2+ (Negative); Specific Gravity Urine 1.016 (1.000-1.030); Urobilinogen Urine Negative (Negative); WBC Urine Automated >30 /hpf (0-5)
[2020-08-29 05:54] LABS: Basophils # (auto) 0.01 K/uL (0-0.2); Basophils % (auto) 0.1 %; Eosinophils # (auto) 0.15 K/uL (0-0.5); Eosinophils % (auto) 1.8 %; Hematocrit (blood only) 23.2 % (37-47); Hemoglobin 7.3 g/dL (12.0-16.0); Immature Granulocytes # (auto) 0.02 K/uL (0.00-0.02); Immature Granulocytes % (auto) 0.2 %; Lymphocytes # (auto) 2.16 K/uL (1.2-3.4); Lymphocytes % (auto) 26.1 %; Mean Corpuscular Hemoglobin 25.2 pg (25-34); Mean Corpuscular Hgb Conc 31.5 g/dL (32-36); Mean Platelet Volume 10.1 fL (7.4-10.4); Monocytes # (auto) 0.73 K/uL (0.11-0.59); Monocytes % (auto) 8.8 %; Platelet Count 153 K/uL (130-400); RDW Coefficient of Variation 18.1 % (11.5-14.5); White Blood Count 8.27 K/uL (4.8-10.8)
[2020-08-29] MEDS: LEVOTHYROXINE SODIUM 100 MCG TABLET PO SCH (06:02)
[2020-08-29 06:04] LABS: INR 1.7 (0.9-1.1); Prothrombin Time 17.4 Seconds (9.0-12.0)
[2020-08-29 06:19] LABS: BUN Creatinine Ratio 23.7 (10-20); Calcium 8.3 mg/dl (8.5-10.1); Creatinine Clr Calc Pharmacy 26.3 ml/min; Est GFR (Non-African American) 39.7; Potassium 4.3 mmol/L (3.5-5.1)
[2020-08-29] MEDS ORDERED: Nursing to Pharmacy Communication SCH (06:30)
[2020-08-29 06:33] LABS: Ovalocytes 1+
[2020-08-29] MEDS ORDERED: CEFEPIME CONSULT ACTIVE PRN (07:11)
[2020-08-29 07:16] LABS: Estimated Average Glucose 183 mg/dl
[2020-08-29] MEDS ORDERED: INSULIN ASPART 100 UNITS/ML 3 ML PEN SC SCH (07:30)
[2020-08-29] MEDS ORDERED: CEFEPIME 2,000 MG in SYRINGE 0 ML IV ONE (08:00)
--- NOTE | 2020-08-29 08:00 | XRay Report ---
XR chest 1V portable HISTORY: Preop. COMPARISON: Chest 08/04/2020. FINDINGS: No pneumothorax. No pleural effusions. Bibasilar linear densities persist and favor atelect asis are scarring. The upper lung zones remain clear. The heart is normal in size. There are low lung volumes. IMPRESSION: No significant change compared to the prior study. No acute process. Bibasilar linear densities persi st and favor atelectasis/scarring. ACT 112: Negative or not required by law. Electronically signed by: Donato Duval M.D. 08/29/2020 7:59 AM
[2020-08-29] MEDS ORDERED: SODIUM CHLORIDE 0.9% 250 ML IV PRN (08:17)
[2020-08-29] MEDS: VERAPAMIL HCL 180 MG TABCR PO SCH (10:47)
[2020-08-29] MEDS: CALCIUM CARBONATE 1250MG TAB PO SCH (10:47)
[2020-08-29] MEDS: FERROUS SULFATE 325 MG TAB PO SCH (10:47)
[2020-08-29] MEDS: CHOLECALCIFEROL 1,000 UNITS 25 MCG TAB PO SCH (10:48)
[2020-08-29] MEDS: INSULIN ASPART 100 UNITS/ML 3 ML PEN SC SCH ×3 (12:18→20:55)
[2020-08-29 12:32] LABS: INR 1.5 (0.9-1.1); Prothrombin Time 15.4 Seconds (9.0-12.0)
[2020-08-29] MEDS ORDERED: EPINEPHrine INJ 1 MG/ML AMP ONE (13:54)
[2020-08-29] MEDS ORDERED: BUPIVACAINE 0.5 % 5 MG/1 ML MPF 30ML VIAL ONE (13:54)
[2020-08-29] MEDS ORDERED: LIDOCAINE HCL 2% 2 ML VIAL/AMP(20MG/ML) INFIL ONE (14:06)
[2020-08-29] MEDS ORDERED: PROPOFOL IV EMULSION 10 MG/ML 20 ML VIAL IV ONE (14:06)
[2020-08-29] MEDS ORDERED: BUPIVACAINE/EPINEPHRINE 0.5% MPF 1:200,000 30 ML VIAL ONE (14:06)
[2020-08-29] MEDS ORDERED: GLYCOPYRROLATE 0.2 MG/ML VIAL ONE (14:06)
[2020-08-29] MEDS ORDERED: DEXAMETHASONE SOD INJ 4 MG/ML VIAL ONE (14:06)
[2020-08-29] MEDS ORDERED: ONDANSETRON INJ 2 MG/ML 2 ML VIAL ONE (14:06)
[2020-08-29] MEDS ORDERED: fentaNYL citrate 100 MCG/2 ML VIAL ONE (14:06)
[2020-08-29] MEDS ORDERED: NEOSTIGMINE METHYLSULFATE 5 MG/5 ML SYR ONE (14:06)
--- NOTE | 2020-08-29 14:32 | Orthopedic Consultation ---
Date of Consultation August 29, 2020 Assessment & Plan (1) Closed hip fracture: Patient is been admitted and medically optimized. Working to take her to the operating do an IM nailing of the left intertrochanteric hip fracture. She is currently getting some blood. Her INR has been reversed. All risks and benefits explained to the patient and informed consent obtained. Present on Admission?: Yes History of Present Illness Reason for Consultation: Left hip fracture Attending Physician: Rubén Nice MD History of Present Illness 85-year-old female with multiple medical comorbidities who sustained a fall yesterday. The left knee gave out and she fell and injured her left hip. She had acute onset of pain. She was brought to emergency room where x-rays revealed a left intertrochanteric hip fracture. She has been admitted by the medicine service and medically optimized. Allergies Allergy/AdvReac Type Severity Reaction Status Date / Time sulfamethoxazole Allergy Intermediate Rash Verified 08/28/20 22:11 trimethoprim Allergy Intermediate Rash Verified 08/28/20 22:11 tetanus toxoid, adsorbed Allergy Unknown HIVES Verified 08/28/20 22:11 tetracycline Allergy Unknown hives Verified 08/28/20 22:11 rosuvastatin AdvReac Intermediate Muscle Verified 08/28/20 22:11 stiffness Home Medications Medication Instructions Recorded Confirmed Type aspirin [Aspirin Low Dose] 81 mg PO MOWEFR 10/31/18 08/28/20 History cholecalciferol (vitamin D3) 2,000 unit PO QAM 10/31/18 08/28/20 History [Vitamin D3] fluticasone propionate [Flonase 2 spray INTRANASAL HS PRN 10/31/18 08/28/20 History Allergy Relief] levothyroxine 100 mcg PO DAILYBB 10/31/18 08/28/20 History verapamil 180 mg PO QAM 10/31/18 08/28/20 History warfarin 2 mg PO HS 04/03/19 08/28/20 History tamsulosin 0.4 mg capsule 0.4 mg PO HS #90 cap 07/11/19 08/28/20 Rx calcium carbonate [Calcium 500] 500 mg PO DAILY 12/25/19 08/28/20 History docusate sodium [Col-Rite] 100 mg PO HS 06/25/20 08/28/20 History ferrous sulfate 325 mg PO QAM 06/25/20 08/28/20 History glipizide 10 mg PO BIDM 06/25/20 08/28/20 History rosuvastatin 10 mg PO HS 06/25/20 08/28/20 History lisinopril 10 mg PO QAM 08/02/20 08/28/20 History Patient History Medical History Acute UTI CKD (chronic kidney disease) stage 3, GFR 30-59 ml/min Gram-negative bacteremia HLD (hyperlipidemia) HTN (hypertension) Hypothyroidism Paroxysmal A-fib Sepsis T2DM (type 2 diabetes mellitus) UTI (urinary tract infection) Surgical History History of breast biopsy History of cholecystectomy History of hysterectomy Family History Mother Breast cancer Hypertension Father , at 92 No problems noted. Social History Smoking Status: Former smoker Second Hand Exposure: No; Do You Dip or Chew Tobacco: No; Tobacco Cessation Education Requested by Patient: No Hx Alcohol Use: No Hx Substance Use: No Preferred Language: Belizean Communication Ability: Effective Change House Attendant Required: No Beliefs That Will Affect Care: None marital status: / Current Living Situation: Alone Current Living Situation Comment: "HELPER" 3X/WEEK How many Children do You have: 1 Other Information That Helps Us Care for You: No other: ambulates with cane Feels Safe at Home: Yes Safety Concerns: Feels Safe At This Time Assistive Devices: Glasses Review of Systems Review of Systems: All systems reviewed & are unremarkable except as noted in HPI & below Physical Exam Physical Exam: Physical examination reveals a pleasant elderly frail female. She is lying in bed looks reasonably comfortable. General musculoskeletal exam reveals no particular pain in her upper extremities or right lower extremity. Examination left lower extremity feels leg to be just slightly externally rotated. There is no significant bruising or swelling. Skin is intact. She has pain with any type of hip motion. She is neurologically intact. Results & Data ([facility]) Vital Signs (Past 12 Hours) Vital Signs Temp Pulse Pulse Resp BP BP BP 08/29/20 14:21 36.8 C 88 18 112/63 08/29/20 14:19 36.8 C 88 18 112/63 08/29/20 13:48 37.0 C 87 18 125/80 08/29/20 13:18 36.8 C 72 18 114/77 08/29/20 13:03 36.9 C 83 18 118/59 L 08/29/20 12:47 36.8 C 86 18 126/54 L 08/29/20 11:30 36.8 C 79 18 108/59 L 08/29/20 08:13 36.6 C 69 18 90/51 L 08/29/20 07:33 76 08/29/20 03:29 37.5 C 85 18 107/60 Pulse Ox 08/29/20 14:21 92 08/29/20 14:19 91 08/29/20 13:48 98 08/29/20 13:18 98 08/29/20 13:03 98 08/29/20 12:47 90 08/29/20 11:30 99 08/29/20 08:13 100 08/29/20 07:33 08/29/20 03:29 96 Diagnostic Findings X-rays reveal a slightly displaced intertrochanteric hip fracture. PG Care Time/CCT Total # of Minutes Spent Total Time Spent with Patient: Total time spent is greater than 50% in coordination of care (as documented) at patient's floor/unit and/or counseling patient: Coding Level of Care Code 77910 Initial Inpt Care Lvl 3 Diagnoses Closed hip fracture S72.002A Encounter type: initial encounter Laterality: left (1) Closed hip fracture Encounter type: initial encounter Laterality: left Qualified Code(s): S72.002A - Fracture of unspecified part of neck of left femur, initial encounter for closed fracture
--- NOTE | 2020-08-29 14:35 | Anesthesiology Consultation ---
Date of Service August 29, 2020 Assessment & Plan (1) Encounter for pre-operative examination: Chart Review Chart Review: Acceptable Risk for Surgery History Surgery Operation Date: 08/29/20 07:00 Proposed Procedures p Left Long Troch Nail - Erme Hall MD Height/Weight Height: 5 ft Weight: 58.6 kg Allergies Allergy/AdvReac Type Severity Reaction Status Date / Time sulfamethoxazole Allergy Intermediate Rash Verified 08/28/20 22:11 trimethoprim Allergy Intermediate Rash Verified 08/28/20 22:11 tetanus toxoid, adsorbed Allergy Unknown HIVES Verified 08/28/20 22:11 tetracycline Allergy Unknown hives Verified 08/28/20 22:11 rosuvastatin AdvReac Intermediate Muscle Verified 08/28/20 22:11 stiffness Medications Home Medications Medication Instructions Recorded Confirmed Last Taken aspirin [Aspirin Low Dose] 81 mg PO MOWEFR 10/31/18 08/28/20 08/28/20 cholecalciferol (vitamin D3) 2,000 unit PO QAM 10/31/18 08/28/20 08/28/20 [Vitamin D3] fluticasone propionate [Flonase 2 spray INTRANASAL HS PRN 10/31/18 08/28/20 08/28/20 Allergy Relief] levothyroxine 100 mcg PO DAILYBB 10/31/18 08/28/20 08/28/20 verapamil 180 mg PO QAM 10/31/18 08/28/20 08/28/20 warfarin 2 mg PO HS 04/03/19 08/28/20 08/27/20 tamsulosin 0.4 mg capsule 0.4 mg PO HS #90 cap 07/11/19 08/28/20 08/27/20 calcium carbonate [Calcium 500] 500 mg PO DAILY 12/25/19 08/28/20 08/28/20 docusate sodium [Col-Rite] 100 mg PO HS 06/25/20 08/28/20 08/27/20 ferrous sulfate 325 mg PO QAM 06/25/20 08/28/20 08/28/20 glipizide 10 mg PO BIDM 06/25/20 08/28/20 08/28/20 rosuvastatin 10 mg PO HS 06/25/20 08/28/20 08/27/20 lisinopril 10 mg PO QAM 08/02/20 08/28/20 08/28/20 Active Medications Generic Name Dose Route Start Last Admin Trade Name Eddie PRN Reason Stop Dose Admin Calcium Carbonate 1,250 mg 08/29/20 09:00 08/29/20 10:47 Calcium Carbonate 1250mg Tab PO 09/28/20 08:59 Not Given DAILY NO Ferrous Sulfate 325 mg 08/29/20 09:00 08/29/20 10:47 Ferrous Sulfate 325 Mg Tab PO 09/28/20 08:59 Not Given QAM NO Sodium Chloride 1,000 mls @ 75 mls/hr 08/28/20 23:25 08/29/20 12:48 Nss 1000ml IV 09/27/20 23:24 0 mls/hr .[id number] NO Infusion Insulin Aspart 0 units 08/29/20 12:00 08/29/20 12:18 Insulin Aspart 100 Units/Ml 3 Ml Pen SC 09/28/20 11:59 Not Given Q6 NO Levothyroxine Sodium 100 mcg 08/29/20 06:30 08/29/20 06:02 Levothyroxine Sodium 100 Mcg Tablet PO 09/28/20 06:29 100 mcg DAILYBB NO Administration Verapamil HCl 180 mg 08/29/20 09:00 08/29/20 10:47 Verapamil Hcl 180 Mg Tabcr PO 09/28/20 08:59 Not Given QAM NO Vitamin D 2,000 units 08/29/20 09:00 08/29/20 10:48 Cholecalciferol 1,000 Units 25 Mcg Tab PO 09/28/20 08:59 Not Given QAM NO NPO Date Last Intake of Fluids: 08/28/20 Time Last Intake of Fluids: 23:15 Date Last Intake of Solids: 08/28/20 Time Last Intake of Solids: 23:15 Past Medical History Medical History (Updated 08/29/20 @ 14:35 by Alex Corbett MD) Acute UTI Anemia CKD (chronic kidney disease) stage 3, GFR 30-59 ml/min Gram-negative bacteremia HLD (hyperlipidemia) HTN (hypertension) Hypothyroidism Paroxysmal A-fib Sepsis T2DM (type 2 diabetes mellitus) UTI (urinary tract infection) Past Family History Family History Mother Breast cancer Hypertension Father , at 92 No problems noted. Past Surgical History Surgical History History of breast biopsy History of cholecystectomy History of hysterectomy Social History Smoking Status: Former smoker Do You Dip or Chew Tobacco: No Hx Alcohol Use: No Hx Substance Use: No substance use type: does not use Physical Exam Vital Signs Last Vital Signs Temp 36.8 C 08/29/20 14:21 Pulse 88 08/29/20 14:21 Resp 18 08/29/20 14:21 BP 112/63 08/29/20 14:21 Pulse Ox 92 08/29/20 14:21 Testing Laboratory Results 08/29/20 05:24 08/29/20 05:24 PT 15.4 Seconds (9.0-12.0) H 08/29/20 11:54 INR 1.5 (0.9-1.1) H 08/29/20 11:54 APTT 34.8 Seconds (21.0-31.0) H 08/28/20 20:00 Hemoglobin A1c 8.0 % (4.5-5.6) H 08/29/20 05:24 Urine Color Yellow 08/28/20 22:11 Urine Appearance Turbid (Clear) A 08/28/20 22:11 Urine pH 5.0 (4.5-7.5) 08/28/20 22:11 Ur Specific Runge 1.016 (1.000-1.030) 08/28/20 22:11 Urine Protein 2+ (Negative) H 08/28/20 22:11 Urine Glucose (UA) Negative (Negative) 08/28/20 22:11 Urine Ketones Negative (Negative) 08/28/20 22:11 Urine Nitrite Negative (Negative) 08/28/20 22:11 Ur Leukocyte Esterase 3+ (Negative) H 08/28/20 22:11 Urine WBC (Auto) >30 /hpf (0-5) H 08/28/20 22:11 Urine RBC (Auto) 5-10 /hpf (0-4) H 08/28/20 22:11 U Hyaline Cast (Auto) 0 /lpf (0-5) 08/28/20 22:11 U Epithel Cells (Auto) 10-20 /lpf (0-5) H 08/28/20 22:11 Urine Bacteria (Auto) 4+ (Negative) H 08/28/20 22:11 Blood Type A Positive 08/28/20 20:13 Antibody Screen NEGATIVE 08/28/20 20:13 08/29/20 08/29/20 08/29/20 11:23 07:45 06:06 POC Glucose 87 95 122 H Electrocardiogram Date: 08/05/20 Findings: + AFIB @ (79) Echocardiogram Date: 06/26/20 LV Function: normal Valvular Disease: + no significant valvular disease
[2020-08-29] MEDS ORDERED: ATROPINE SULFATE 0.1 MG/ML 10ML SYR IV PRN (14:44)
[2020-08-29] MEDS ORDERED: ONDANSETRON INJ 2 MG/ML 2 ML VIAL IV PRN (14:44)
[2020-08-29] MEDS ORDERED: HYDROmorphone INJ 1 MG/ML SYRINGE IV PRN (14:44)
[2020-08-29] MEDS ORDERED: ceFAZolin 1000MG 1,000 MG/7.5 ML SYR IV ONE (15:32)
--- NOTE | 2020-08-29 15:49 | Fluoroscopy Report ---
FL hip LT 2-3V CLINICAL HISTORY: Left hip fracture. Internal fixation. COMPARISON STUDY: Left hip CT 08/28/2020. FLUOROSCOPY TIME: 50 seconds. FINDINGS: 4 fluoroscopic spot images of the left femur demonstrate an intramedullary lilian and interloc abdulaziz femoral neck pin traversing the intertrochanteric fracture. The hardware appears intact. Alignme nt appears near anatomic. IMPRESSION: Fluoroscopy provided for internal fixation of the left femoral intertrochanteric fracture . ACT 112: Negative or not required by law. Electronically signed by: Donato Duval M.D. 08/29/2020 3:47 PM
--- NOTE | 2020-08-29 15:51 | Post Operative Brief Note ---
PG Immediate Post Op with CF Date of Surgery August 29, 2020 Pre & Post Diagnosis Operation Date: 08/29/20 07:00 Pre-Op Diagnosis: Intertrochanteric fracture, left femur Post-Op Diagnosis: Intertrochanteric fracture, left femur I identified the patient and participated in the time-out.: Yes Procedure Operation Date: 08/29/20 07:00 Actual Procedures p Left Long Troch Nail(Left) - Emre Hall MD Surgeon Emre Hall MD [employer] Jim, PAC Estimated Blood Loss 50 Findings Consistent with Post-Op Diagnosis Fluids 400 cc Specimens Specimen Description: None per surgeon Anesthesia Type General Complications none Disposition Accompanied Patient To Recovery: No Disposition: Recovery Room
--- NOTE | 2020-08-29 16:01 | Hospitalist Progress Note ---
Date of Service August 29, 2020 Assessment & Plan (1) Closed left hip fracture: Intertrochanteric fracture of the left hip following mechanical fall Will have surgery this afternoon No contraindication for proposed surgery Appreciate orthopedic input (2) Status post fall: (3) Anemia: Acute blood loss anemia Has baseline hemoglobin around 8 which dropped to 7.3 Type and crossmatch 2 units We will give 1 unit of blood transfusion today and monitor CBC (4) Paroxysmal A-fib: Heart rate is controlled INR is little supratherapeutic Received vitamin K in the emergency INR this afternoon was 1.5 (5) T2DM (type 2 diabetes mellitus): Will hold any oral medications SSI (6) HTN (hypertension): Blood pressure is controlled (7) Hypothyroidism: Continue supplement (8) CKD (chronic kidney disease) stage 3, GFR 30-59 ml/min: Has been getting cautious amount of intravenous fluid Creatinine remains at baseline We will monitor DVT prophylaxis Other than Coumadin We will restart as soon as recommended by orthopedic surgeon CODE STATUS Full Admission and Anticipated Discharge Date Admission Date: August 28, 2020 Subjective 08/29/2020 The patient was seen and examined in medical telemetry unit She complains of some pain in left hip otherwise remains asymptomatic He admits to have mechanical fall Review of Systems Review of Systems: All systems reviewed and are unremarkable except as noted below Musculoskeletal: Pain in left hip with any movement of the right lower extremity and pelvis Physical Exam Physical Exam: Lying in bed comfortably Constitutional: average body habitus; not ill appearing Eyes: PERRL, conjunctivae normal, anicteric sclerae ENMT: external ear and nose normal, oropharynx normal Neck: trachea midline, no thyromegaly Respiratory: no respiratory distress Auscultation: lungs clear to auscultation bilaterally Cardiovascular: Rate/Rhythm: + irregularly irregular Heart Sounds: + murmur (2/6 ejection systolic murmur over aortic area) Gastrointestinal (Abdomen): Inspection/Auscultation: normal bowel sounds; abdomen not distended Percussion/Palpation: abdomen soft; abdomen nontender Musculoskeletal: Hip: + limited ROM of hip (Left hip with excruciating pain) Neurologic: Alert, awake and oriented x3 Psychiatric: A+Ox3, euthymic affect Results & Data Results & Data ([facility]) Vital Signs (Past 12 Hours) Vital Signs Temp Pulse Pulse Resp BP BP BP 08/29/20 14:21 36.8 C 88 18 112/63 08/29/20 14:19 36.8 C 88 18 112/63 08/29/20 13:48 37.0 C 87 18 125/80 08/29/20 13:18 36.8 C 72 18 114/77 08/29/20 13:03 36.9 C 83 18 118/59 L 08/29/20 12:47 36.8 C 86 18 126/54 L 08/29/20 11:30 36.8 C 79 18 108/59 L 08/29/20 08:13 36.6 C 69 18 90/51 L 08/29/20 07:33 76 Pulse Ox 08/29/20 14:21 92 08/29/20 14:19 91 08/29/20 13:48 98 08/29/20 13:18 98 08/29/20 13:03 98 08/29/20 12:47 90 08/29/20 11:30 99 08/29/20 08:13 100 08/29/20 07:33 Laboratory Results Short CBC 08/28/20 08/29/20 Range/Units 20:00 05:24 WBC 8.84 8.27 (4.8-10.8) K/uL Hgb 8.3 L 7.3 L (12.0-16.0) g/dL Hct 26.3 L 23.2 L (37-47) % Plt Count 183 153 (130-400) K/uL BMP 08/28/20 08/29/20 20:00 05:24 Sodium 135 L 139 Potassium 4.5 4.3 Chloride 104 109 H Carbon Dioxide 23 23 BUN 33 H 29 H Creatinine 1.44 H 1.23 H Glucose 118 H 122 H Calcium 9.3 8.3 L Urine 08/28/20 Range/Units 22:11 Urine Color Yellow Urine Appearance Turbid A (Clear) Urine pH 5.0 (4.5-7.5) Ur Specific [place] 1.016 (1.000-1.030) Urine Protein 2+ H (Negative) Urine Glucose (UA) Negative (Negative) Medications Administered Current Inpatient Medications Acetaminophen (Acetaminophen 325 Mg Tab) 650 mg PO Q4H PRN PRN Reason: pain/fever Stop: 09/27/20 23:24 Aspirin (Aspirin 81 Mg Ectab) 81 mg PO [id number] [facility] Stop: 09/29/20 08:59 Atropine Sulfate (Atropine Sulfate 0.1 Mg/Ml 10ml Syr) 0.5 mg IV Q1M PRN PRN Reason: PACU Use-HR<40 &/or Bradycardi Stop: 08/29/20 22:44 Calcium Carbonate (Calcium Carbonate 1250mg Tab) 1,250 mg PO DAILY [facility] Stop: 09/28/20 08:59 Last Admin: 08/29/20 10:47 Dose: Not Given Documented by: Dextrose (Dextrose 50% 50 Ml Syringe) 25 - 50 ml IV UD PRN; Protocol PRN Reason: Hypoglycemia Protocol Stop: 09/27/20 23:44 Docusate Sodium (Docusate Sodium 100 Mg Cap) 100 mg PO HS [facility] Stop: 09/28/20 20:59 Ferrous Sulfate (Ferrous Sulfate 325 Mg Tab) 325 mg PO QAM [facility] Stop: 09/28/20 08:59 Last Admin: 08/29/20 10:47 Dose: Not Given Documented by: Fluticasone Propionate (Fluticasone Propionate Na Spr 16 Gm Btl) 2 sprays NA HS PRN PRN Reason: Nasal Congestion Stop: 09/27/20 23:24 Glucagon (Glucagon For Inj 1 Mg Vial) 1 mg SQ UD PRN; Protocol PRN Reason: Hypoglycemia Protocol Stop: 09/27/20 23:44 Glucose (Glucose 40% Gel 15 Gm Tube) 15 - 30 gm PO UD PRN; Protocol PRN Reason: Hypoglycemia Protocol Stop: 09/27/20 23:44 Glucose (Glucose 10 Tabs/Tube) 4 - 8 tabs PO UD PRN; Protocol PRN Reason: Hypoglycemia Protocol Stop: 09/27/20 23:44 Hydromorphone HCl (Hydromorphone Inj 1 Mg/Ml Syringe) 0.25 mg IV Q5M PRN PRN Reason: PACU Use Only-Pain Stop: 08/29/20 22:44 Sodium Chloride (Nss 1000ml) 1,000 mls @ 75 mls/hr IV .[id number] [facility] Stop: 09/27/20 23:24 Last Infusion: 08/29/20 12:48 Dose: 0 mls/hr Documented by: Cefepime HCl 1,000 mg/ Syringe 11.3 mls @ 5.5 mls/min IV Q24H [facility] Stop: 09/09/20 07:59 Sodium Chloride (Nss) 250 mls @ 15 mls/hr IV .[id number] PRN PRN Reason: For Transfusion Stop: 08/29/20 18:18 Insulin Aspart (Insulin Aspart 100 Units/Ml 3 Ml Pen) 0 units SC Q6 [facility] Stop: 09/28/20 11:59 Last Admin: 08/29/20 12:18 Dose: Not Given Documented by: Levothyroxine Sodium (Levothyroxine Sodium 100 Mcg Tablet) 100 mcg PO DAILYBB [facility] Stop: 09/28/20 06:29 Last Admin: 08/29/20 06:02 Dose: 100 mcg Documented by: Miscellaneous (Carbohydrates For Hypoglycemia ) 15 - 30 gm PO UD PRN PRN Reason: Hypoglycemia Treatment Stop: 09/27/20 23:44 Miscellaneous Information (Cefepime Consult Active) 1 ea N/A UD PRN PRN Reason: Consult Stop: 09/28/20 07:10 Morphine Sulfate (Morphine Sulfate 2 Mg/Ml Carp) 2 mg IV Q3H PRN PRN Reason: Pain Stop: 09/11/20 23:24 Nitroglycerin (Nitroglycerin Sl 0.4 Mg/Tab Tab) 0.4 mg SL UD PRN PRN Reason: Chest Pain Stop: 09/27/20 23:24 Ondansetron HCl (Ondansetron Inj 2 Mg/Ml 2 Ml Vial) 4 mg IV Q6H PRN PRN Reason: Nausea Stop: 09/27/20 23:24 Ondansetron HCl (Ondansetron Inj 2 Mg/Ml 2 Ml Vial) 4 mg IV ONCE PRN PRN Reason: PACU Use Only-Nausea/Vomiting Stop: 08/29/20 22:45 Polyethylene Glycol (Polyethylene (Miralax) 17 Gm Pack) 17 gm PO DAILY PRN PRN Reason: Constipation Stop: 09/27/20 23:24 Rosuvastatin Calcium (Rosuvastatin Calcium 10 Mg Tab) 10 mg PO HS [facility] Stop: 09/28/20 20:59 Tamsulosin HCl (Tamsulosin Hcl 0.4 Mg Cap) 0.4 mg PO HS [facility] Stop: 09/28/20 20:59 Verapamil HCl (Verapamil Hcl 180 Mg Tabcr) 180 mg PO QAM [facility] Stop: 09/28/20 08:59 Last Admin: 08/29/20 10:47 Dose: Not Given Documented by: Vitamin D (Cholecalciferol 1,000 Units 25 Mcg Tab) 2,000 units PO [place] Stop: 09/28/20 08:59 Last Admin: 08/29/20 10:48 Dose: Not Given Documented by: (1) T2DM (type 2 diabetes mellitus) 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
--- NOTE | 2020-08-29 16:42 | Anesthesiology Progress Note ---
Date of Service August 29, 2020 Anesthesia Post Procedure Vital Signs Vital Signs: Temp Pulse Pulse Pulse Resp BP BP 08/29/20 16:35 37.1 C 87 14 123/58 L 08/29/20 16:25 91 H 13 111/48 L 08/29/20 16:15 87 18 122/51 L 08/29/20 16:05 92 H 20 136/57 L 08/29/20 15:56 38.1 C H 87 16 122/54 L 08/29/20 14:21 36.8 C 88 18 112/63 08/29/20 14:19 36.8 C 88 18 112/63 08/29/20 13:48 37.0 C 87 18 125/80 08/29/20 13:18 36.8 C 72 18 114/77 08/29/20 13:03 36.9 C 83 18 118/59 L 08/29/20 12:47 36.8 C 86 18 126/54 L 08/29/20 11:30 36.8 C 79 18 08/29/20 08:13 36.6 C 69 18 08/29/20 07:33 76 08/29/20 03:29 37.5 C 85 18 08/28/20 23:31 37.6 C H 87 16 08/28/20 23:28 87 08/28/20 22:58 119/60 08/28/20 22:50 91 H 20 08/28/20 22:40 88 19 08/28/20 22:31 84 19 08/28/20 22:30 86 19 123/45 L 08/28/20 22:29 08/28/20 22:20 86 20 08/28/20 22:10 86 18 08/28/20 22:02 88 23 08/28/20 22:01 88 22 133/44 L 08/28/20 22:00 85 21 08/28/20 21:50 86 17 08/28/20 21:40 80 17 08/28/20 21:31 87 23 08/28/20 21:30 80 16 129/55 L 08/28/20 21:20 80 18 08/28/20 21:10 80 18 08/28/20 21:01 78 17 08/28/20 21:00 79 16 106/48 L 08/28/20 20:58 08/28/20 20:55 81 21 08/28/20 20:30 82 19 95/41 L 08/28/20 20:06 08/28/20 19:55 37.0 C 83 16 87/30 L BP Pulse Ox 08/29/20 16:35 93 08/29/20 16:25 94 08/29/20 16:15 97 08/29/20 16:05 94 08/29/20 15:56 96 08/29/20 14:21 92 08/29/20 14:19 91 08/29/20 13:48 98 08/29/20 13:18 98 08/29/20 13:03 98 08/29/20 12:47 90 08/29/20 11:30 108/59 L 99 08/29/20 08:13 90/51 L 100 08/29/20 07:33 08/29/20 03:29 107/60 96 08/28/20 23:31 108/56 L 97 08/28/20 23:28 08/28/20 22:58 08/28/20 22:50 97 08/28/20 22:40 97 08/28/20 22:31 96 08/28/20 22:30 97 08/28/20 22:29 86 L 08/28/20 22:20 87 L 08/28/20 22:10 92 08/28/20 22:02 97 08/28/20 22:01 97 08/28/20 22:00 97 08/28/20 21:50 97 08/28/20 21:40 95 08/28/20 21:31 94 08/28/20 21:30 96 08/28/20 21:20 100 08/28/20 21:10 100 08/28/20 21:01 98 08/28/20 21:00 98 08/28/20 20:58 87 L 08/28/20 20:55 98 08/28/20 20:30 86 L 08/28/20 20:06 99/36 L 94 08/28/20 19:55 89 L Pain Intensity Left Leg: Pain Intensity: 4 Transfer of Care Handoff Completed per policy Notes Mental Status: alert / awake / arousable and participated in evaluation Patient Amnestic to Procedure: Yes Nausea / Vomiting: adequately controlled Pain: adequately controlled Airway Patency, RR, SpO2: stable & adequate BP & HR: stable & adequate Hydration State: stable & adequate Anesthetic Complications: no major complications apparent and Pt Satisfied with anesthetic care
[2020-08-29] MEDS ORDERED: NALOXONE HCL 0.4 MG/1 ML VIAL/CARP IV PRN (17:10)
[2020-08-29] MEDS ORDERED: WARFARIN SOD 5 MG TAB PO ONE (17:30)
[2020-08-29] MEDS: TAMSULOSIN HCL 0.4 MG CAP PO SCH (20:55)
[2020-08-29] MEDS: ROSUVASTATIN CALCIUM 10 MG TAB PO SCH (20:55)
[2020-08-29] MEDS: DOCUSATE SODIUM 100 MG CAP PO SCH (20:55)
[2020-08-30] MEDS: LEVOTHYROXINE SODIUM 100 MCG TABLET PO SCH (05:48)
[2020-08-30] MEDS: SODIUM CHLORIDE 0.9% 1000ML 1,000 ML IV SCH ×3 (05:48→21:50)
[2020-08-30] MEDS ORDERED: Nursing to Pharmacy Communication SCH (06:00)
[2020-08-30 06:22] LABS: Basophils # (auto) 0.01 K/uL (0-0.2); Basophils % (auto) 0.1 %; Hematocrit (blood only) 22.5 % (37-47); Hemoglobin 7.2 g/dL (12.0-16.0); Immature Granulocytes # (auto) 0.04 K/uL (0.00-0.02); Immature Granulocytes % (auto) 0.5 %; Lymphocytes # (auto) 1.23 K/uL (1.2-3.4); Lymphocytes % (auto) 16.2 %; Mean Corpuscular Hemoglobin 25.3 pg (25-34); Mean Corpuscular Volume 78.9 fL (80-100); Mean Platelet Volume 10.4 fL (7.4-10.4); Monocytes % (auto) 9.2 %; Neutrophils # (auto) 5.62 K/uL (1.4-6.5); Platelet Count 146 K/uL (130-400); RDW Coefficient of Variation 17.4 % (11.5-14.5); RDW Standard Deviation 50.7 fL (36.4-46.3); Red Blood Count 2.85 M/uL (4.2-5.4)
[2020-08-30 06:32] LABS: INR 1.5 (0.9-1.1); Prothrombin Time 15.2 Seconds (9.0-12.0)
[2020-08-30 07:02] LABS: Ovalocytes 1+; Polychromasia 1+
[2020-08-30 07:04] LABS: BUN Creatinine Ratio 25.1 (10-20); Calcium 7.9 mg/dl (8.5-10.1); Creatinine Clr Calc Pharmacy 29.6 ml/min; Est GFR (African American) 52.1; Est GFR (Non-African American) 44.9; Potassium 4.5 mmol/L (3.5-5.1)
--- NOTE | 2020-08-30 07:55 | Operative Report ---
Post Operative Report Pre & Post Diagnosis Operation Date: 08/29/20 07:00 Pre-Op Diagnosis: Intertrochanteric fracture, left femur Post-Op Diagnosis: Intertrochanteric fracture, left femur I identified the patient and participated in the time-out.: Yes Procedure Operation Date: 08/29/20 07:00 Actual Procedures p Left Long Troch Nail(Left) - Emre Hall MD Surgeon Emre Hall MD Marketing Project Specialist Jim, MIGUEL ANGEL Estimated Blood Loss 50 Findings Consistent with Post-Op Diagnosis Fluids 400 cc. Specimens None. Complications none Disposition Accompanied Patient To Recovery: No Disposition: Recovery Room Indications Patient is an 85-year-old frail female who sustained a fall 1 day per previously. She was using a walker and fell and injured her left hip. She had acute onset of hip pain. She felt like her knee just gave out on her. She is brought to emergency room where x-rays of the left intertrochanteric hip fracture. The patient was made by the medicine service, medically optimized, indicated for surgical treatment. Description of Procedure Operative implants consisted of: 1. Synthes left 10 mm x 360 mm long trochanteric nail. 2. 90 mm helical blade. 3. 5 mm x 44 mm distal interlocking screw. The patient was taken to the operating identified and placed on the operating table supine position but all contact areas were properly padded. IV antibiotics tried by anesthesia team. General anesthetic was implemented by the anesthesia team. The patient then placed on the fracture table. The left leg was placed in boot traction the right leg was placed in a well leg myrick. I then applied some longitudinal traction to the left leg and internally rotated the foot so the kneecap pointed to the ceiling. X-ray was brought in. The fracture is anatomically aligned. The left hip was then prepped with and scrubbed with a Hibiclens and then prepped with ChloraPrep and draped in usual sterile fashion. A curvilinear incision was made just proximal tip of the greater trochanter in the left hip. Sharp dissection Through subcutaneous tissue down the level gluteal fascia the gluteal fascia was incised longitudinally in line with skin incision. A guidewire was then placed just lateral to the tip of the trochanter and in line with the IM canal both the AP and lateral planes. This is a passed down the IM canal under fluoroscopic guidance. Position was verified. A 17 mm reamer was then reamed over the guidewire. The guidewire was removed and a ball-tipped guidewire was placed. I then measured for nail length of 360 mm nail was selected. I then reamed over the guidewire beginning with a size 9 and progressing up to 11-1/2. We did start to get chatter at 11 and half so we elected to place a 10 mm nail. A a left 360 mm x 10 mm long trochanteric nail was then placed over the guidewire and the guidewire was removed. We tapped this in position. A lateral aiming arm was attached and a stab incision was made. The lateral aiming arm was advanced the lateral aspect the femur. Guidewires placed in the central aspect of the femoral head and neck in both the AP and lateral planes. Measuring was performed for the helical blade and a 90 helical blade was selected. The guidewire was then overreamed with a cortical drill followed by the triple reamer. A 90 mm helical blade was placed. Was tapped in position. I then tightened the set screw. The lateral aiming arm was removed. Some final x-rays were obtained proximally. The hardware is appropriately positioned. Attention drawn toward distal interlocking. Using the perfect white earth technique a distal interlocking screw was placed in the dynamic hole. Perfect circles were obtained. Stab incision was made. I then advanced the drill through the distal aspect of the dynamic hole and a 5 mm x 44 mm interlocking screw was placed. Some final x-rays were obtained. Attention drawn toward closing. Wounds were irrigated with copious knots of normal saline. I did inject locally with 30 cc of half percent Marcaine with epinephrine. The gluteal fascia then closed with #1 Vicryl suture in a running fashion for subcutaneous tissues of all wounds were then closed with 2 Dexon suture in a buried interrupted fashion skin was closed skin maribel. Leg was then cleaned dried a sterile dressing composed Xeroform, 4 x 4's, ABD pad, foam tape was applied. Patient then taken off the fracture table in the placed on the transport bed. She is brought out of general incision transferred to the recovery room in stable condition. Patient tolerated procedure well and there were no complications. Arnoldo Fernandez, my physician energy assistant, was present for the entire procedure. His assistance was required and essential to proper patient positioning, prepping and draping, surgical exposure, perform the technical details the operation, placement of the implant, closure of the wound, and placement of the sterile bandage. I attest to the content of the Intraoperative Record and any orders documented therein. Any exceptions are noted below.
[2020-08-30] MEDS: CALCIUM CARBONATE 1250MG TAB PO SCH (08:10)
[2020-08-30] MEDS: FERROUS SULFATE 325 MG TAB PO SCH (08:10)
[2020-08-30] MEDS: CHOLECALCIFEROL 1,000 UNITS 25 MCG TAB PO SCH (08:11)
[2020-08-30] MEDS: VERAPAMIL HCL 180 MG TABCR PO SCH (08:11)
[2020-08-30] MEDS: CEFEPIME 1,000 MG in SYRINGE 0 ML IV SCH (08:13)
[2020-08-30] MEDS: INSULIN ASPART 100 UNITS/ML 3 ML PEN SC SCH ×4 (08:15→20:59)
[2020-08-30] MEDS: ASPIRIN 81 MG ECTAB PO SCH (08:16)
--- NOTE | 2020-08-30 08:19 | Progress Notes ---
DATE: 08/30/2020 SUBJECTIVE: An 85-year-old white female postop day 1 from IM nailing of a left intertrochanteric fracture. She is doing well this morning. Really reports minimal pain. She has not been out of bed yet. No chest pain or shortness of breath. Not feeling dizzy or lightheaded. OBJECTIVE: VITAL SIGNS: Temperature 36.4. Vital signs stable. GENERAL: Shows a pleasant elderly female. She is sitting up in bed and looks quite comfortable this morning. EXTREMITIES: Examination of the left hip and leg reveals the dressing to be clean, dry and intact. Thigh is soft and supple. Leg is well aligned. She can dorsiflex and plantarflex her foot appropriately. She is neurologically intact. LABORATORY DATA: Hemoglobin 7.2. Hematocrit 22.5. Electrolytes are stable. ASSESSMENT: An 85-year-old white female postoperative day 1 from IM nailing of left intertrochanteric fracture, doing pretty well. She is anemic, but has chronic anemia and currently asymptomatic. She did get some blood yesterday. Her pain is controlled. She is neurologically intact. PLAN: 1. DVT prophylaxis including thigh-high TEDs, SCDs, and can resume her Coumadin. We gave her 5 mg last night. Any heparin should be wait until at least 24 hours after surgery and prefer just a low-dose heparin if necessary medically. 2. PT/OT. She can weightbear as tolerated in left lower extremity. 3. Pain control, doing well with current pain regimen. 4. Medical management as per the medicine service. 5. Disposition: She will be okay for discharge any time medically stable. I need to see her back in 2-3 weeks out from surgery date. She can weightbear as tolerated. Any orthopedic questions can be directed to me at [phone].
[2020-08-30] MEDS ORDERED: SODIUM CHLORIDE 0.9% 250 ML IV PRN (08:39)
[2020-08-30] MEDS: ACETAMINOPHEN 325 MG TAB PO PRN ×2 (12:51→16:53)
--- NOTE | 2020-08-30 14:21 | Hospitalist Progress Note ---
Date of Service August 30, 2020 Assessment & Plan (1) Closed left hip fracture: Intertrochanteric fracture of the left hip following mechanical fall Will have surgery this afternoon No contraindication for proposed surgery Appreciate orthopedic input We will continue and OT and will need possible placement on discharge Orthopedics will see her in about 2 to 3 weeks (2) Status post fall: (3) Anemia: Acute blood loss anemia Has baseline hemoglobin around 8 which dropped to 7.3 Type and crossmatch 2 units We will give 1 unit of blood transfusion today and monitor CBC Hemoglobin dropped below 8 this morning She will be given second unit of blood transfusion (4) Paroxysmal A-fib: Heart rate is controlled INR is little supratherapeutic Received vitamin K in the emergency INR this afternoon was 1.5 Received 5 mg Coumadin last night We will continue with her usual dose of Coumadin from this afternoon Will start low-dose heparin without bolus from this afternoon (5) T2DM (type 2 diabetes mellitus): Will hold any oral medications SSI (6) HTN (hypertension): Blood pressure is controlled (7) Hypothyroidism: Continue supplement (8) CKD (chronic kidney disease) stage 3, GFR 30-59 ml/min: Has been getting cautious amount of intravenous fluid Creatinine remains at baseline We will monitor DVT prophylaxis Restart Coumadin We will start a small dose of heparin without bolus until INR is therapeutic CODE STATUS Full Admission and Anticipated Discharge Date Admission Date: August 28, 2020 Subjective 08/29/2020 The patient was seen and examined in medical telemetry unit She complains of some pain in left hip otherwise remains asymptomatic He admits to have mechanical fall 08/30/2020 The patient was seen and examined in medical telemetry unit She is a status post left hip surgery She complains of some pain in the left hip and the left foot Denies any other significant symptoms Review of Systems Review of Systems: All systems reviewed and are unremarkable except as noted below Musculoskeletal: Pain in left hip with any movement of the right lower extremity and pelvis Physical Exam Physical Exam: Lying in bed comfortably Constitutional: average body habitus; not ill appearing Eyes: PERRL, conjunctivae normal, anicteric sclerae ENMT: external ear and nose normal, oropharynx normal Neck: trachea midline, no thyromegaly Respiratory: no respiratory distress Auscultation: lungs clear to auscultation bilaterally Cardiovascular: Rate/Rhythm: + irregularly irregular Heart Sounds: + murmur (2/6 ejection systolic murmur over aortic area) Gastrointestinal (Abdomen): Inspection/Auscultation: normal bowel sounds; abdomen not distended Percussion/Palpation: abdomen soft; abdomen nontender Musculoskeletal: Hip: + limited ROM of hip (Left hip with excruciating pain) Minimal tenderness on dorsum of left foot but no obvious bruising. Ankle and foot movement was not painful Psychiatric: A+Ox3, euthymic affect Results & Data Results & Data ([facility]) Vital Signs (Past 12 Hours) Vital Signs Temp Pulse Pulse Pulse Resp BP BP 08/30/20 13:57 08/30/20 12:18 36.5 C 80 16 115/57 L 08/30/20 12:05 36.7 C 79 20 115/57 L 08/30/20 11:18 36.3 C L 82 16 118/56 L 08/30/20 11:12 36.4 C L 80 20 114/56 L 08/30/20 10:18 36.4 C L 80 114/56 L 08/30/20 09:50 36.4 C L 76 16 107/50 L 08/30/20 09:35 36.3 C L 76 16 115/56 L 08/30/20 09:33 36.3 C L 77 119/58 L 08/30/20 09:20 36.3 C L 76 16 115/57 L 08/30/20 09:17 36.3 C L 76 16 115/57 L 08/30/20 07:50 35.8 C L 79 20 95/48 L 08/30/20 07:20 72 08/30/20 03:26 36.4 C L 76 18 115/57 L Pulse Ox Pulse Ox 08/30/20 13:57 94 08/30/20 12:18 95 08/30/20 12:05 97 08/30/20 11:18 95 08/30/20 11:12 95 08/30/20 10:18 95 08/30/20 09:50 95 08/30/20 09:35 95 08/30/20 09:33 95 08/30/20 09:20 95 08/30/20 09:17 95 08/30/20 07:50 97 08/30/20 07:20 08/30/20 03:26 99 Laboratory Results Current Inpatient Medications Acetaminophen (Acetaminophen 325 Mg Tab) 650 mg PO Q4H PRN PRN Reason: pain/fever Stop: 09/27/20 23:24 Last Admin: 08/30/20 12:51 Dose: 650 mg Documented by: Aspirin (Aspirin 81 Mg Ectab) 81 mg PO MoWeFr@0900 [facility] Stop: 09/29/20 08:59 Last Admin: 08/30/20 08:16 Dose: 81 mg Documented by: Calcium Carbonate (Calcium Carbonate 1250mg Tab) 1,250 mg PO DAILY [facility] Stop: 09/28/20 08:59 Last Admin: 08/30/20 08:10 Dose: 1,250 mg Documented by: Dextrose (Dextrose 50% 50 Ml Syringe) 25 - 50 ml IV UD PRN; Protocol PRN Reason: Hypoglycemia Protocol Stop: 09/27/20 23:44 Docusate Sodium (Docusate Sodium 100 Mg Cap) 100 mg PO HS [facility] Stop: 09/28/20 20:59 Last Admin: 08/29/20 20:55 Dose: 100 mg Documented by: Ferrous Sulfate (Ferrous Sulfate 325 Mg Tab) 325 mg PO QAM [facility] Stop: 09/28/20 08:59 Last Admin: 08/30/20 08:10 Dose: 325 mg Documented by: Fluticasone Propionate (Fluticasone Propionate Na Spr 16 Gm Btl) 2 sprays NA HS PRN PRN Reason: Nasal Congestion Stop: 09/27/20 23:24 Glucagon (Glucagon For Inj 1 Mg Vial) 1 mg SQ UD PRN; Protocol PRN Reason: Hypoglycemia Protocol Stop: 09/27/20 23:44 Glucose (Glucose 40% Gel 15 Gm Tube) 15 - 30 gm PO UD PRN; Protocol PRN Reason: Hypoglycemia Protocol Stop: 09/27/20 23:44 Glucose (Glucose 10 Tabs/Tube) 4 - 8 tabs PO UD PRN; Protocol PRN Reason: Hypoglycemia Protocol Stop: 09/27/20 23:44 Sodium Chloride (Nss 1000ml) 1,000 mls @ 75 mls/hr IV .[id number] [facility] Stop: 09/27/20 23:24 Last Infusion: 08/30/20 14:05 Dose: 75 mls/hr Documented by: Cefepime HCl 1,000 mg/ Syringe 11.3 mls @ 5.5 mls/min IV Q24H [facility] Stop: 09/09/20 07:59 Last Admin: 08/30/20 08:13 Dose: 5.5 mls/min Documented by: Sodium Chloride (Nss) 250 mls @ 15 mls/hr IV .[id number] PRN PRN Reason: For Transfusion Stop: 08/30/20 18:39 Insulin Aspart (Insulin Aspart 100 Units/Ml 3 Ml Pen) 0 units SC ACHS [facility] Stop: 09/28/20 20:59 Last Admin: 08/30/20 12:37 Dose: 5 units Documented by: Levothyroxine Sodium (Levothyroxine Sodium 100 Mcg Tablet) 100 mcg PO DAILYBB [facility] Stop: 09/28/20 06:29 Last Admin: 08/30/20 05:48 Dose: 100 mcg Documented by: Miscellaneous (Carbohydrates For Hypoglycemia ) 15 - 30 gm PO UD PRN PRN Reason: Hypoglycemia Treatment Stop: 09/27/20 23:44 Miscellaneous Information (Cefepime Consult Active) 1 ea N/A UD PRN PRN Reason: Consult Stop: 09/28/20 07:10 Morphine Sulfate (Morphine Sulfate 2 Mg/Ml Carp) 2 mg IV Q3H PRN PRN Reason: Pain Stop: 09/11/20 23:24 Naloxone HCl (Naloxone Hcl 0.4 Mg/1 Ml Vial/Carp) 0.1 mg IV UD PRN PRN Reason: Opioid Overdose Stop: 09/28/20 17:09 Nitroglycerin (Nitroglycerin Sl 0.4 Mg/Tab Tab) 0.4 mg SL UD PRN PRN Reason: Chest Pain Stop: 09/27/20 23:24 Ondansetron HCl (Ondansetron Inj 2 Mg/Ml 2 Ml Vial) 4 mg IV Q6H PRN PRN Reason: Nausea Stop: 09/27/20 23:24 Polyethylene Glycol (Polyethylene (Miralax) 17 Gm Pack) 17 gm PO DAILY PRN PRN Reason: Constipation Stop: 09/27/20 23:24 Rosuvastatin Calcium (Rosuvastatin Calcium 10 Mg Tab) 10 mg PO HS [facility] Stop: 09/28/20 20:59 Last Admin: 08/29/20 20:55 Dose: 10 mg Documented by: Tamsulosin HCl (Tamsulosin Hcl 0.4 Mg Cap) 0.4 mg PO HS [facility] Stop: 09/28/20 20:59 Last Admin: 08/29/20 20:55 Dose: 0.4 mg Documented by: Verapamil HCl (Verapamil Hcl 180 Mg Tabcr) [facility] Stop: 09/28/20 08:59 Last Admin: 08/30/20 08:11 Dose: 180 mg Documented by: Vitamin D (Cholecalciferol 1,000 Units 25 Mcg Tab) 2,000 units PO QAM [facility] Stop: 09/28/20 08:59 Last Admin: 08/30/20 08:11 Dose: 2,000 units Documented by: Medications Administered Current Inpatient Medications Acetaminophen (Acetaminophen 325 Mg Tab) 650 mg PO Q4H PRN PRN Reason: pain/fever Stop: 09/27/20 23:24 Last Admin: 08/30/20 12:51 Dose: 650 mg Documented by: Aspirin (Aspirin 81 Mg Ectab) 81 mg PO MoWeFr@0900 [facility] Stop: 09/29/20 08:59 Last Admin: 08/30/20 08:16 Dose: 81 mg Documented by: Calcium Carbonate (Calcium Carbonate 1250mg Tab) 1,250 mg PO DAILY [facility] Stop: 09/28/20 08:59 Last Admin: 08/30/20 08:10 Dose: 1,250 mg Documented by: Dextrose (Dextrose 50% 50 Ml Syringe) 25 - 50 ml IV UD PRN; Protocol PRN Reason: Hypoglycemia Protocol Stop: 09/27/20 23:44 Docusate Sodium (Docusate Sodium 100 Mg Cap) 100 mg PO HS [facility] Stop: 09/28/20 20:59 Last Admin: 08/29/20 20:55 Dose: 100 mg Documented by: Ferrous Sulfate (Ferrous Sulfate 325 Mg Tab) [facility] Stop: 09/28/20 08:59 Last Admin: 08/30/20 08:10 Dose: 325 mg Documented by: Fluticasone Propionate (Fluticasone Propionate Na Spr 16 Gm Btl) 2 sprays NA HS PRN PRN Reason: Nasal Congestion Stop: 09/27/20 23:24 Glucagon (Glucagon For Inj 1 Mg Vial) 1 mg SQ UD PRN; Protocol PRN Reason: Hypoglycemia Protocol Stop: 09/27/20 23:44 Glucose (Glucose 40% Gel 15 Gm Tube) 15 - 30 gm PO UD PRN; Protocol PRN Reason: Hypoglycemia Protocol Stop: 09/27/20 23:44 Glucose (Glucose 10 Tabs/Tube) 4 - 8 tabs PO UD PRN; Protocol PRN Reason: Hypoglycemia Protocol Stop: 09/27/20 23:44 Sodium Chloride (Nss 1000ml) 1,000 mls @ 75 mls/hr IV .[id number] [facility] Stop: 09/27/20 23:24 Last Infusion: 08/30/20 14:05 Dose: 75 mls/hr Documented by: Cefepime HCl 1,000 mg/ Syringe 11.3 mls @ 5.5 mls/min IV Q24H [facility] Stop: 09/09/20 07:59 Last Admin: 08/30/20 08:13 Dose: 5.5 mls/min Documented by: Sodium Chloride (Nss) 250 mls @ 15 mls/hr IV .[id number] PRN PRN Reason: For Transfusion Stop: 08/30/20 18:39 Insulin Aspart (Insulin Aspart 100 Units/Ml 3 Ml Pen) 0 units SC ACHS [facility] Stop: 09/28/20 20:59 Last Admin: 08/30/20 12:37 Dose: 5 units Documented by: Levothyroxine Sodium (Levothyroxine Sodium 100 Mcg Tablet) 100 mcg PO DAILYBB [facility] Stop: 09/28/20 06:29 Last Admin: 08/30/20 05:48 Dose: 100 mcg Documented by: Miscellaneous (Carbohydrates For Hypoglycemia ) 15 - 30 gm PO UD PRN PRN Reason: Hypoglycemia Treatment Stop: 09/27/20 23:44 Miscellaneous Information (Cefepime Consult Active) 1 ea N/A UD PRN PRN Reason: Consult Stop: 09/28/20 07:10 Morphine Sulfate (Morphine Sulfate 2 Mg/Ml Carp) 2 mg IV Q3H PRN PRN Reason: Pain Stop: 09/11/20 23:24 Naloxone HCl (Naloxone Hcl 0.4 Mg/1 Ml Vial/Carp) 0.1 mg IV UD PRN PRN Reason: Opioid Overdose Stop: 09/28/20 17:09 Nitroglycerin (Nitroglycerin Sl 0.4 Mg/Tab Tab) 0.4 mg SL UD PRN PRN Reason: Chest Pain Stop: 09/27/20 23:24 Ondansetron HCl (Ondansetron Inj 2 Mg/Ml 2 Ml Vial) 4 mg IV Q6H PRN PRN Reason: Nausea Stop: 09/27/20 23:24 Polyethylene Glycol (Polyethylene (Miralax) 17 Gm Pack) 17 gm PO DAILY PRN PRN Reason: Constipation Stop: 09/27/20 23:24 Rosuvastatin Calcium (Rosuvastatin Calcium 10 Mg Tab) 10 mg PO [facility] Stop: 09/28/20 20:59 Last Admin: 08/29/20 20:55 Dose: 10 mg Documented by: Tamsulosin HCl (Tamsulosin Hcl 0.4 Mg Cap) 0.4 mg PO [facility] Stop: 09/28/20 20:59 Last Admin: 08/29/20 20:55 Dose: 0.4 mg Documented by: Verapamil HCl (Verapamil Hcl 180 Mg Tabcr) 180 mg PO [facility] Stop: 09/28/20 08:59 Last Admin: 08/30/20 08:11 Dose: 180 mg Documented by: Vitamin D (Cholecalciferol 1,000 Units 25 Mcg Tab) 2,000 units PO [facility] Stop: 09/28/20 08:59 Last Admin: 08/30/20 08:11 Dose: 2,000 units Documented by: (1) T2DM (type 2 diabetes mellitus) Diabetes mellitus correction insulin use: without correction use Diabetes mellitus complication status: with kidney complications Diabetes mellitus complication detail: with chronic kidney disease Chronic kidney disease stage: stage 3 (moderate) Qualified Code(s): E11.22 - Type 2 diabetes mellitus with diabetic chronic kidney disease; N18.3 - Chronic kidney disease, stage 3 (moderate) (2) HTN (hypertension) Hypertension type: essential hypertension Qualified Code(s): I10 - Essential (primary) hypertension (3) Hypothyroidism Hypothyroidism type: unspecified Qualified Code(s): E03.9 - Hypothyroidism, unspecified
[2020-08-30] MEDS ORDERED: HEPARIN SODIUM/DEXTROSE 25,000 UNITS/500 ML BAG IV SCH (14:30)
[2020-08-30] MEDS ORDERED: Heparin IV Adult Wt-Based Low-Dose *NO* Bolus Protocol IV SCH (14:45)
[2020-08-30] MEDS: WARFARIN SOD 2 MG TAB PO SCH (17:10)
[2020-08-30] MEDS: DICLOFENAC SOD 1% GEL 100 GM TUBE EXT PRN (20:17)
[2020-08-30] MEDS: ROSUVASTATIN CALCIUM 10 MG TAB PO SCH (20:17)
[2020-08-30] MEDS: DOCUSATE SODIUM 100 MG CAP PO SCH (20:18)
[2020-08-30] MEDS: TAMSULOSIN HCL 0.4 MG CAP PO SCH (20:18)
[2020-08-30] MEDS: INSULIN GLARGINE SOLOSTAR 100 UNITS/ML 3 ML PEN SC SCH (21:01)
[2020-08-30 21:11] LABS: Partial Thromboplastin Ratio 1.4; Partial Thromboplastin Time 38.6 Seconds (21.0-31.0)
[2020-08-31 04:07] LABS: Basophils # (auto) 0.02 K/uL (0-0.2); Basophils % (auto) 0.2 %; Eosinophils # (auto) 0.17 K/uL (0-0.5); Hemoglobin 8.6 g/dL (12.0-16.0); Immature Granulocytes # (auto) 0.05 K/uL (0.00-0.02); Immature Granulocytes % (auto) 0.6 %; Lymphocytes # (auto) 1.38 K/uL (1.2-3.4); Lymphocytes % (auto) 16.1 %; Mean Corpuscular Hemoglobin 26.1 pg (25-34); Mean Corpuscular Hgb Conc 33.1 g/dL (32-36); Mean Platelet Volume 10.9 fL (7.4-10.4); Monocytes # (auto) 0.74 K/uL (0.11-0.59); Monocytes % (auto) 8.6 %; Neutrophils # (auto) 6.22 K/uL (1.4-6.5); Neutrophils % (auto) 72.5 %; Platelet Count 159 K/uL (130-400); RDW Coefficient of Variation 17.2 % (11.5-14.5); RDW Standard Deviation 50.3 fL (36.4-46.3); Red Blood Count 3.29 M/uL (4.2-5.4); White Blood Count 8.58 K/uL (4.8-10.8)
[2020-08-31 04:16] LABS: INR 2.1 (0.9-1.1)
[2020-08-31 04:17] LABS: Partial Thromboplastin Ratio 1.4; Partial Thromboplastin Time 39.9 Seconds (21.0-31.0)
[2020-08-31 04:25] LABS: BUN Creatinine Ratio 30.5 (10-20); Calcium 7.6 mg/dl (8.5-10.1); Creatinine Clr Calc Pharmacy 27.9 ml/min; Est GFR (African American) 48.4; Est GFR (Non-African American) 41.7; Potassium 4.3 mmol/L (3.5-5.1)
[2020-08-31] MEDS: LEVOTHYROXINE SODIUM 100 MCG TABLET PO SCH (05:50)
[2020-08-31] MEDS: FERROUS SULFATE 325 MG TAB PO SCH (08:36)
[2020-08-31] MEDS: CEFEPIME 1,000 MG in SYRINGE 0 ML IV SCH (08:36)
[2020-08-31] MEDS: CHOLECALCIFEROL 1,000 UNITS 25 MCG TAB PO SCH (08:37)
[2020-08-31] MEDS: CALCIUM CARBONATE 1250MG TAB PO SCH (08:37)
[2020-08-31] MEDS: VERAPAMIL HCL 180 MG TABCR PO SCH (08:37)
[2020-08-31] MEDS: INSULIN GLARGINE SOLOSTAR 100 UNITS/ML 3 ML PEN SC SCH ×2 (08:38→20:38)
[2020-08-31] MEDS: INSULIN ASPART 100 UNITS/ML 3 ML PEN SC SCH ×4 (08:39→20:38)
[2020-08-31] MEDS: ACETAMINOPHEN 325 MG TAB PO PRN ×2 (08:43→15:49)
[2020-08-31] MEDS: predniSONE 10 MG TABLET PO SCH (08:43)
[2020-08-31] MEDS: SODIUM CHLORIDE 0.9% 1000ML 1,000 ML IV SCH ×2 (08:44→21:35)
[2020-08-31] MEDS: DICLOFENAC SOD 1% GEL 100 GM TUBE EXT PRN ×2 (08:44→23:52)
--- NOTE | 2020-08-31 08:56 | Progress Notes ---
DATE: 08/31/2020 SUBJECTIVE: An 85-year-old white female postop day 2 from IM nailing of the left intertrochanteric fracture. She is doing okay. Major complaint today is foot and ankle pain. No particular injury. She does have a history of gout. Hip pain is manageable. No fever, no other complaints. OBJECTIVE: VITAL SIGNS: Temperature 37.6. Vital signs stable. GENERAL: Shows a pleasant, frail elderly female, lying in bed. She looks reasonably comfortable. EXTREMITIES: Examination of the left lower extremity reveals the leg to be well aligned. Dressing is clean, dry and intact. Thigh is soft and supple. She does have some swelling of her left ankle. No visible deformity. She does have quite a bit of tenderness just to palpate and move her foot. LABORATORY DATA: Hemoglobin 8.6. Hematocrit 26.0. Electrolytes are stable. INR is up to 2.1. ASSESSMENT: An 85-year-old white female postoperative day 2 from intramedullary nailing of left intertrochanteric fracture. She is doing reasonably well. She may have developed some gout in her left foot and ankle. Her INR is therapeutic. We have to be careful not to overshoot this. PLAN: 1. DVT prophylaxis including thigh-high TEDs, SCDs, and Coumadin. She can be back on her regular dose of Coumadin. 2. PT/OT. She can weightbear as tolerated. 3. Left ankle pain. I am going to try her on a little bit of prednisone and see if that helps. 4. Medical management as per the medicine service. 5. Disposition: She is hoping to go to [facility] for rehab. Apparently, they do not have any beds over the weekend. Will likely stay here this weekend and hopefully a bed available early next week.
--- NOTE | 2020-08-31 13:59 | Hospitalist Progress Note ---
Date of Service August 31, 2020 Assessment & Plan (1) Closed left hip fracture: Intertrochanteric fracture of the left hip following mechanical fall Will have surgery this afternoon No contraindication for proposed surgery Appreciate orthopedic input We will continue and OT and will need possible placement on discharge Orthopedics will see her in about 2 to 3 weeks Complains some pain in the left hip-medications given and will continue PT and OT (2) Status post fall: (3) Anemia: Acute blood loss anemia Has baseline hemoglobin around 8 which dropped to 7.3 Type and crossmatch 2 units We will give 1 unit of blood transfusion today and monitor CBC Hemoglobin dropped below 8 this morning She will be given second unit of blood transfusion Hemoglobin went up to 8.6 as of 08/31/2020 (4) Paroxysmal A-fib: Heart rate is controlled INR is little supratherapeutic Received vitamin K in the emergency INR this afternoon was 1.5 Received 5 mg Coumadin last night We will continue with her usual dose of Coumadin from this afternoon Will start low-dose heparin without bolus from this afternoon Heart rate remains stable and INR is therapeutic (5) T2DM (type 2 diabetes mellitus): Will hold any oral medications SSI (6) HTN (hypertension): Blood pressure is controlled (7) Hypothyroidism: Continue supplement (8) CKD (chronic kidney disease) stage 3, GFR 30-59 ml/min: Has been getting cautious amount of intravenous fluid Creatinine remains at baseline We will monitor DVT prophylaxis Restart Coumadin We will start a small dose of heparin without bolus until INR is therapeutic CODE STATUS Full Likely to be discharged on Wednesday or Wednesday following approval to go to a skilled care facility Admission and Anticipated Discharge Date Admission Date: August 28, 2020 Subjective 08/29/2020 The patient was seen and examined in medical telemetry unit She complains of some pain in left hip otherwise remains asymptomatic He admits to have mechanical fall 08/30/2020 The patient was seen and examined in medical telemetry unit She is a status post left hip surgery She complains of some pain in the left hip and the left foot Denies any other significant symptoms 08/31/2020 The patient was seen and examined in medical telemetry unit She complains of pain in the left hip and left foot Denies any other symptoms Review of Systems Review of Systems: All systems reviewed and are unremarkable except as noted b elow Musculoskeletal: Pain in left hip with any movement of the right lower extremity and pelvis Physical Exam Physical Exam: Lying in bed comfortably Constitutional: average body habitus; not ill appearing Eyes: PERRL, conjunctivae normal, anicteric sclerae ENMT: external ear and nose normal, oropharynx normal Neck: trachea midline, no thyromegaly Respiratory: no respiratory distress Auscultation: lungs clear to auscultation bilaterally Cardiovascular: Rate/Rhythm: + irregularly irregular Heart Sounds: + murmur (2/6 ejection systolic murmur over aortic area) Gastrointestinal (Abdomen): Inspection/Auscultation: normal bowel sounds; abdomen not distended Percussion/Palpation: abdomen soft; abdomen nontender Musculoskeletal: Hip: + limited ROM of hip (Left hip with excruciating pain) Psychiatric: A+Ox3, euthymic affect Lymphatic: no cervical or axillary lymphadenopathy Results & Data Results & Data ([facility]) Vital Signs (Past 12 Hours) Vital Signs Temp Pulse Pulse Resp BP Pulse Ox 08/31/20 12:04 36.6 C 78 18 124/55 L 94 08/31/20 08:54 37.6 C H 08/31/20 07:30 89 08/31/20 06:50 37.6 C H 88 18 161/61 H 92 08/31/20 03:24 36.4 C L 76 18 129/64 94 Laboratory Results Short CBC 08/31/20 Range/Units 03:44 WBC 8.58 (4.8-10.8) K/uL Hgb 8.6 L (12.0-16.0) g/dL Hct 26.0 L (37-47) % Plt Count 159 (130-400) K/uL [facility] 08/31/20 03:44 Sodium 136 Potassium 4.3 Chloride 107 Carbon Dioxide 25 BUN 36 H Creatinine 1.18 Glucose 227 H Calcium 7.6 L Medications Administered Current Inpatient Medications Acetaminophen (Acetaminophen 325 Mg Tab) 650 mg PO Q4H PRN PRN Reason: pain/fever Stop: 09/27/20 23:24 Last Admin: 08/31/20 08:43 Dose: 650 mg Documented by: Aspirin (Aspirin 81 Mg Ectab) 81 mg PO MoWeFr@0900 [facility] Stop: 09/29/20 08:59 Last Admin: 08/30/20 08:16 Dose: 81 mg Documented by: Calcium Carbonate (Calcium Carbonate 1250mg Tab) 1,250 mg PO DAILY [facility] Stop: 09/28/20 08:59 Last Admin: 08/31/20 08:37 Dose: 1,250 mg Documented by: Dextrose (Dextrose 50% 50 Ml Syringe) 25 - 50 ml IV UD PRN; Protocol PRN Reason: Hypoglycemia Protocol Stop: 09/27/20 23:44 Diclofenac Sodium (Diclofenac Sod 1% Gel 100 Gm Tube) 4 gm EXT BID PRN PRN Reason: Pain Stop: 09/29/20 18:57 Last Admin: 08/31/20 08:44 Dose: 4 gm Documented by: Docusate Sodium (Docusate Sodium 100 Mg Cap) 100 mg PO HS [facility] Stop: 09/28/20 20:59 Last Admin: 08/30/20 20:18 Dose: 100 mg Documented by: Ferrous Sulfate (Ferrous Sulfate 325 Mg Tab) 325 mg PO QAM [facility] Stop: 09/28/20 08:59 Last Admin: 08/31/20 08:36 Dose: 325 mg Documented by: Fluticasone Propionate (Fluticasone Propionate Na Spr 16 Gm Btl) 2 sprays NA HS PRN PRN Reason: Nasal Congestion Stop: 09/27/20 23:24 Glucagon (Glucagon For Inj 1 Mg Vial) 1 mg SQ UD PRN; Protocol PRN Reason: Hypoglycemia Protocol Stop: 09/27/20 23:44 Glucose (Glucose 40% Gel 15 Gm Tube) 15 - 30 gm PO UD PRN; Protocol PRN Reason: Hypoglycemia Protocol Stop: 09/27/20 23:44 Glucose (Glucose 10 Tabs/Tube) 4 - 8 tabs PO UD PRN; Protocol PRN Reason: Hypoglycemia Protocol Stop: 09/27/20 23:44 Sodium Chloride (Nss 1000ml) 1,000 mls @ 75 mls/hr IV .[id number] [facility] Stop: 09/27/20 23:24 Last Admin: 08/31/20 08:44 Dose: 75 mls/hr Documented by: Ceftriaxone Sodium 1,000 mg/ (Dextrose) 50 mls @ 100 mls/hr IV Q24H [facility] Stop: 09/09/20 21:59 Insulin Aspart (Insulin Aspart 100 Units/Ml 3 Ml Pen) 0 units SC ACHS [facility] Stop: 09/28/20 20:59 Last Admin: 08/31/20 12:19 Dose: 4 units Documented by: Insulin Glargine (Insulin Glargine Solostar 100 Units/Ml 3 Ml Pen) 6 units SC BID [facility] Stop: 09/29/20 20:59 Last Admin: 08/31/20 08:38 Dose: 6 units Documented by: Levothyroxine Sodium (Levothyroxine Sodium 100 Mcg Tablet) 100 mcg PO DAILYBB [facility] Stop: 09/28/20 06:29 Last Admin: 08/31/20 05:50 Dose: 100 mcg Documented by: Miscellaneous (Carbohydrates For Hypoglycemia ) 15 - 30 gm PO UD PRN PRN Reason: Hypoglycemia Treatment Stop: 09/27/20 23:44 Morphine Sulfate (Morphine Sulfate 2 Mg/Ml Carp) 2 mg IV Q3H PRN PRN Reason: Pain Stop: 09/11/20 23:24 Naloxone HCl (Naloxone Hcl 0.4 Mg/1 Ml Vial/Carp) 0.1 mg IV UD PRN PRN Reason: Opioid Overdose Stop: 09/28/20 17:09 Nitroglycerin (Nitroglycerin Sl 0.4 Mg/Tab Tab) 0.4 mg SL UD PRN PRN Reason: Chest Pain Stop: 09/27/20 23:24 Ondansetron HCl (Ondansetron Inj 2 Mg/Ml 2 Ml Vial) 4 mg IV Q6H PRN PRN Reason: Nausea Stop: 09/27/20 23:24 Polyethylene Glycol (Polyethylene (Miralax) 17 Gm Pack) 17 gm PO DAILY PRN PRN Reason: Constipation Stop: 09/27/20 23:24 Prednisone (Prednisone 10 Mg Tablet) 10 mg PO DAILY@0800 [facility] Stop: 09/04/20 08:01 Last Admin: 08/31/20 08:43 Dose: 10 mg Documented by: Rosuvastatin Calcium (Rosuvastatin Calcium 10 Mg Tab) 10 mg PO [facility] Stop: 09/28/20 20:59 Last Admin: 08/30/20 20:17 Dose: 10 mg Documented by: Tamsulosin HCl (Tamsulosin Hcl 0.4 Mg Cap) 0.4 mg PO [facility] Stop: 09/28/20 20:59 Last Admin: 08/30/20 20:18 Dose: 0.4 mg Documented by: Verapamil HCl (Verapamil Hcl 180 Mg Tabcr) [facility] Stop: 09/28/20 08:59 Last Admin: 08/31/20 08:37 Dose: 180 mg Documented by: Vitamin D (Cholecalciferol 1,000 Units 25 Mcg Tab) 2,000 units PO QAM [facility] Stop: 09/28/20 08:59 Last Admin: 08/31/20 08:37 Dose: 2,000 units Documented by: Warfarin Sodium (Warfarin Sod 2 Mg Tab) 2 mg PO DAILY@1600 [facility] Stop: 09/29/20 15:59 Last Admin: 08/30/20 17:10 Dose: 2 mg Documented by: (1) T2DM (type 2 diabetes mellitus) Diabetes mellitus long term care phlebotomist insulin use: without long term care phlebotomist use Diabetes mellitus complication status: with kidney complications Diabetes mellitus complication detail: with chronic kidney disease Chronic kidney disease stage: stage 3 (moderate) Qualified Code(s): E11.22 - Type 2 diabetes mellitus with diabetic chronic kidney disease; N18.3 - Chronic kidney disease, stage 3 (moderate) (2) HTN (hypertension) Hypertension type: essential hypertension Qualified Code(s): I10 - Essential (primary) hypertension (3) Hypothyroidism Hypothyroidism type: unspecified Qualified Code(s): E03.9 - Hypothyroidism, unspecified
[2020-08-31] MEDS: WARFARIN SOD 2 MG TAB PO SCH (15:21)
[2020-08-31] MEDS: ROSUVASTATIN CALCIUM 10 MG TAB PO SCH (20:36)
[2020-08-31] MEDS: TAMSULOSIN HCL 0.4 MG CAP PO SCH (20:36)
[2020-08-31] MEDS: DOCUSATE SODIUM 100 MG CAP PO SCH (20:37)
[2020-08-31] MEDS: cefTRIAXone SODIUM 1,000 MG in DEXTROSE 5% 50 ML IV SCH (21:36)
[2020-09-01] MEDS: ACETAMINOPHEN 325 MG TAB PO PRN ×2 (01:06→08:19)
[2020-09-01 06:18] LABS: Basophils # (auto) 0.01 K/uL (0-0.2); Basophils % (auto) 0.1 %; Eosinophils # (auto) 0.28 K/uL (0-0.5); Eosinophils % (auto) 1.9 %; Hemoglobin 8.1 g/dL (12.0-16.0); Immature Granulocytes # (auto) 0.04 K/uL (0.00-0.02); Immature Granulocytes % (auto) 0.3 %; Lymphocytes # (auto) 1.12 K/uL (1.2-3.4); Lymphocytes % (auto) 7.4 %; Mean Corpuscular Hemoglobin 25.6 pg (25-34); Mean Corpuscular Hgb Conc 32.4 g/dL (32-36); Mean Corpuscular Volume 78.9 fL (80-100); Mean Platelet Volume 10.5 fL (7.4-10.4); Monocytes # (auto) 0.72 K/uL (0.11-0.59); Monocytes % (auto) 4.8 %; Neutrophils # (auto) 12.95 K/uL (1.4-6.5); Neutrophils % (auto) 85.5 %; Platelet Count 188 K/uL (130-400); RDW Coefficient of Variation 17.3 % (11.5-14.5); RDW Standard Deviation 50.5 fL (36.4-46.3); Red Blood Count 3.17 M/uL (4.2-5.4); White Blood Count 15.12 K/uL (4.8-10.8)
[2020-09-01 06:33] LABS: Prothrombin Time 30.3 Seconds (9.0-12.0)
[2020-09-01] MEDS: LEVOTHYROXINE SODIUM 100 MCG TABLET PO SCH (06:34)
[2020-09-01 06:52] LABS: Calcium 7.8 mg/dl (8.5-10.1); Creatinine Clr Calc Pharmacy 28.4 ml/min; Est GFR (African American) 49.9; Magnesium 1.7 mg/dl (1.8-2.4); Potassium 4.1 mmol/L (3.5-5.1)
[2020-09-01] MEDS: CHOLECALCIFEROL 1,000 UNITS 25 MCG TAB PO SCH (07:51)
[2020-09-01] MEDS: CALCIUM CARBONATE 1250MG TAB PO SCH (07:52)
[2020-09-01] MEDS: VERAPAMIL HCL 180 MG TABCR PO SCH (07:52)
[2020-09-01] MEDS: FERROUS SULFATE 325 MG TAB PO SCH (07:52)
[2020-09-01] MEDS: predniSONE 10 MG TABLET PO SCH (07:52)
[2020-09-01] MEDS: INSULIN GLARGINE SOLOSTAR 100 UNITS/ML 3 ML PEN SC SCH ×2 (07:54→20:29)
[2020-09-01] MEDS: INSULIN ASPART 100 UNITS/ML 3 ML PEN SC SCH ×4 (07:54→20:28)
--- NOTE | 2020-09-01 09:31 | Progress Notes ---
DATE: 09/01/2020 SUBJECTIVE: An 85-year-old white female postop day 3 from IM nailing of a left intertrochanteric fracture. She is having quite a bit of foot pain, which seems to be a little better this morning. She does seem slightly confused this morning. Having said that, she recognized me, but just seems a little bit off. No new complaints. Her pain seems to be improving. OBJECTIVE: VITAL SIGNS: Temperature 36.9. Vital signs stable. GENERAL: Shows a pleasant elderly female. She is eating breakfast. She seems slightly confused. EXTREMITIES: Examination of the left leg reveals the leg to be well aligned. Dressing is clean, dry and intact. No obvious drainage. Her foot still has some mild swelling, but seems to be somewhat improved. She can dorsiflex and plantarflex her foot. LABORATORY DATA: Hemoglobin 8.1. Hematocrit 25.0. White cell count elevated at 15.12. INR is 3.0. Electrolytes are stable. ASSESSMENT: An 85-year-old white female postoperative day 3 from intramedullary nailing of left intertrochanteric fracture. She is doing pretty well. A little bit confused this morning. White cell count is elevated, but likely related to the prednisone that we gave her yesterday. Her foot pain seems to be somewhat improved. PLAN: 1. DVT prophylaxis including thigh-high TEDs, SCDs, and she is back on her Coumadin. We need to be careful not to overdose this as she is quite thin and I do not want her to bleed into her leg. 2. PT/OT. She can weightbear as tolerated in the left lower extremity. 3. Pain control. I try and limit all pain meds to avoid confusion. Try to stick to Tylenol as much as possible and limit to that. Maybe some additional tramadol as needed. 4. Medical management as per the medicine service. 5. Disposition: She is okay orthopedically for discharge any time. I need to see her back in 2-3 weeks out from surgery date. Of note, her hemoglobin is low, but this is about where she lives now, so I would hold off any blood transfusions unless she becomes symptomatic.
--- NOTE | 2020-09-01 10:13 | Hospitalist Progress Note ---
Date of Service September 01, 2020 Assessment & Plan (1) Closed left hip fracture: Intertrochanteric fracture of the left hip following mechanical fall Will have surgery this afternoon No contraindication for proposed surgery Appreciate orthopedic input We will continue and OT and will need possible placement on discharge Orthopedics will see her in about 2 to 3 weeks Complains some pain in the left hip-medications given and will continue PT and OT (2) UTI (urinary tract infection): Noted to have UTI secondary to Enterobacter cloacae She was started on intravenous cefepime and that has been changed to IV ceftriaxone Her white count seems to be elevated this morning at 15,000 We will monitor CBC-we will need to add and/or change antibiotic if CBC continues to rise or the patient develops any fever and/or chills (3) Status post fall: (4) Anemia: Acute blood loss anemia Has baseline hemoglobin around 8 which dropped to 7.3 Type and crossmatch 2 units We will give 1 unit of blood transfusion today and monitor CBC Hemoglobin dropped below 8 this morning She will be given second unit of blood transfusion Hemoglobin went up to 8.6 as of 08/31/2020 (5) Paroxysmal A-fib: Heart rate is controlled INR is little supratherapeutic Received vitamin K in the emergency INR this afternoon was 1.5 Received 5 mg Coumadin last night We will continue with her usual dose of Coumadin from this afternoon Will start low-dose heparin without bolus from this afternoon Heart rate remains stable and INR is therapeutic (6) T2DM (type 2 diabetes mellitus): Will hold any oral medications SSI (7) HTN (hypertension): Blood pressure is controlled (8) Hypothyroidism: Continue supplement (9) CKD (chronic kidney disease) stage 3, GFR 30-59 ml/min: Has been getting cautious amount of intravenous fluid Creatinine remains at baseline We will monitor-creatinine has been normalized DVT prophylaxis Restart Coumadin We will start a small dose of heparin without bolus until INR is therapeutic CODE STATUS Full Likely to be discharged on Wednesday or Wednesday following approval to go to a skilled care facility Admission and Anticipated Discharge Date Admission Date: August 28, 2020 Subjective 08/29/2020 The patient was seen and examined in medical telemetry unit She complains of some pain in left hip otherwise remains asymptomatic He admits to have mechanical fall 08/30/2020 The patient was seen and examined in medical telemetry unit She is a status post left hip surgery She complains of some pain in the left hip and the left foot Denies any other significant symptoms 08/31/2020 The patient was seen and examined in medical telemetry unit She complains of pain in the left hip and left foot Denies any other symptoms 09/01/2020 The patient was seen and examined in medical telemetry unit She has had episode of confusion last evening with some chills but did not have any documented high temperature She has been feeling generally weak this morning but much better compared with yesterday Denies any fever and/or chills, any abdominal pain, nausea and or vomiting Review of Systems Review of Systems: All systems reviewed and are unremarkable except as noted below Musculoskeletal: Pain in left hip with any movement of the right lower extremity and pelvis Physical Exam Physical Exam: Lying in bed comfortably Constitutional: average body habitus; not ill appearing Eyes: PERRL, conjunctivae normal, anicteric sclerae ENMT: external ear and nose normal, oropharynx normal Neck: trachea midline, no thyromegaly Respiratory: no respiratory distress Auscultation: lungs clear to auscultation bilaterally Cardiovascular: Rate/Rhythm: + irregularly irregular Heart Sounds: + murmur (2/6 ejection systolic murmur over aortic area) Gastrointestinal (Abdomen): Inspection/Auscultation: normal bowel sounds; abdomen not distended Percussion/Palpation: abdomen soft; abdomen nontender No hypogastric and/or tenderness in renal angles Musculoskeletal: Hip: + limited ROM of hip (Left hip with excruciating pain) Psychiatric: A+Ox3, euthymic affect Lymphatic: no cervical or axillary lymphadenopathy Results & Data Results & Data ([facility]) Vital Signs (Past 12 Hours) Vital Signs Temp Pulse Pulse Resp BP Pulse Ox 09/01/20 08:17 36.6 C 94 H 18 100/53 L 89 L 09/01/20 04:18 36.9 C 70 16 108/50 L 97 09/01/20 02:02 116 H 09/01/20 01:09 37.5 C 167/74 H 09/01/20 00:39 75 08/31/20 22:55 36.5 C 73 18 108/54 L 92 Laboratory Results Short CBC 09/01/20 Range/Units 05:47 WBC 15.12 H (4.8-10.8) K/uL Hgb 8.1 L (12.0-16.0) g/dL Hct 25.0 L (37-47) % Plt Count 188 (130-400) K/uL [facility] 09/01/20 05:47 Sodium 137 Potassium 4.1 Chloride 110 H Carbon Dioxide 22 BUN 35 H Creatinine 1.15 Glucose 153 H Calcium 7.8 L Medications Administered Current Inpatient Medications Acetaminophen (Acetaminophen 325 Mg Tab) 650 mg PO Q4H PRN PRN Reason: pain/fever Stop: 09/27/20 23:24 Last Admin: 09/01/20 08:19 Dose: 650 mg Documented by: Aspirin (Aspirin 81 Mg Ectab) 81 mg PO MoWeFr@0900 [facility] Stop: 09/29/20 08:59 Last Admin: 08/30/20 08:16 Dose: 81 mg Documented by: Calcium Carbonate (Calcium Carbonate 1250mg Tab) 1,250 mg PO DAILY [facility] Stop: 09/28/20 08:59 Last Admin: 09/01/20 07:52 Dose: 1,250 mg Documented by: Dextrose (Dextrose 50% 50 Ml Syringe) 25 - 50 ml IV UD PRN; Protocol PRN Reason: Hypoglycemia Protocol Stop: 09/27/20 23:44 Diclofenac Sodium (Diclofenac Sod 1% Gel 100 Gm Tube) 4 gm EXT BID PRN PRN Reason: Pain Stop: 09/29/20 18:57 Last Admin: 08/31/20 23:52 Dose: 4 gm Documented by: Docusate Sodium (Docusate Sodium 100 Mg Cap) 100 mg PO HS [facility] Stop: 09/28/20 20:59 Last Admin: 08/31/20 20:37 Dose: 100 mg Documented by: Ferrous Sulfate (Ferrous Sulfate 325 Mg Tab) 325 mg PO QAM [facility] Stop: 09/28/20 08:59 Last Admin: 09/01/20 07:52 Dose: 325 mg Documented by: Fluticasone Propionate (Fluticasone Propionate Na Spr 16 Gm Btl) 2 sprays NA HS PRN PRN Reason: Nasal Congestion Stop: 09/27/20 23:24 Glucagon (Glucagon For Inj 1 Mg Vial) 1 mg SQ UD PRN; Protocol PRN Reason: Hypoglycemia Protocol Stop: 09/27/20 23:44 Glucose (Glucose 40% Gel 15 Gm Tube) 15 - 30 gm PO UD PRN; Protocol PRN Reason: Hypoglycemia Protocol Stop: 09/27/20 23:44 Glucose (Glucose 10 Tabs/Tube) 4 - 8 tabs PO UD PRN; Protocol PRN Reason: Hypoglycemia Protocol Stop: 09/27/20 23:44 Sodium Chloride (Nss 1000ml) 1,000 mls @ 75 mls/hr IV .[id number] [facility] Stop: 09/27/20 23:24 Last Admin: 08/31/20 21:35 Dose: 75 mls/hr Documented by: Ceftriaxone Sodium 1,000 mg/ (Dextrose) 50 mls @ 100 mls/hr IV Q24H [facility] Stop: 09/09/20 21:59 Last Infusion: 08/31/20 22:11 Dose: Infused Documented by: Insulin Aspart (Insulin Aspart 100 Units/Ml 3 Ml Pen) 0 units SC ACHS [facility] Stop: 09/28/20 20:59 Last Admin: 09/01/20 07:54 Dose: 6 units Documented by: Insulin Glargine (Insulin Glargine Solostar 100 Units/Ml 3 Ml Pen) 6 units SC BID [facility] Stop: 09/29/20 20:59 Last Admin: 09/01/20 07:54 Dose: 6 units Documented by: Levothyroxine Sodium (Levothyroxine Sodium 100 Mcg Tablet) 100 mcg PO DAILYBB [facility] Stop: 09/28/20 06:29 Last Admin: 09/01/20 06:34 Dose: 100 mcg Documented by: Miscellaneous (Carbohydrates For Hypoglycemia ) 15 - 30 gm PO UD PRN PRN Reason: Hypoglycemia Treatment Stop: 09/27/20 23:44 Morphine Sulfate (Morphine Sulfate 2 Mg/Ml Carp) 2 mg IV Q3H PRN PRN Reason: Pain Stop: 09/11/20 23:24 Naloxone HCl (Naloxone Hcl 0.4 Mg/1 Ml Vial/Carp) 0.1 mg IV UD PRN PRN Reason: Opioid Overdose Stop: 09/28/20 17:09 Nitroglycerin (Nitroglycerin Sl 0.4 Mg/Tab Tab) 0.4 mg SL UD PRN PRN Reason: Chest Pain Stop: 09/27/20 23:24 Ondansetron HCl (Ondansetron Inj 2 Mg/Ml 2 Ml Vial) 4 mg IV Q6H PRN PRN Reason: Nausea Stop: 09/27/20 23:24 Polyethylene Glycol (Polyethylene (Miralax) 17 Gm Pack) 17 gm PO DAILY PRN PRN Reason: Constipation Stop: 09/27/20 23:24 Prednisone (Prednisone 10 Mg Tablet) 10 mg PO DAILY@0800 [facility] Stop: 09/04/20 08:01 Last Admin: 09/01/20 07:52 Dose: 10 mg Documented by: Rosuvastatin Calcium (Rosuvastatin Calcium 10 Mg Tab) 10 mg PO [facility] Stop: 09/28/20 20:59 Last Admin: 08/31/20 20:36 Dose: 10 mg Documented by: Tamsulosin HCl (Tamsulosin Hcl 0.4 Mg Cap) 0.4 mg PO [facility] Stop: 09/28/20 20:59 Last Admin: 08/31/20 20:36 Dose: 0.4 mg Documented by: Verapamil HCl (Verapamil Hcl 180 Mg Tabcr) 180 mg PO [facility] Stop: 09/28/20 08:59 Last Admin: 09/01/20 07:52 Dose: 180 mg Documented by: Vitamin D (Cholecalciferol 1,000 Units 25 Mcg Tab) 2,000 units PO [facility] Stop: 09/28/20 08:59 Last Admin: 09/01/20 07:51 Dose: 2,000 units Documented by: Warfarin Sodium (Warfarin Sod 2 Mg Tab) 2 mg PO DAILY@1600 [facility] Stop: 09/29/20 15:59 Last Admin: 08/31/20 15:21 Dose: 2 mg Documented by: (1) T2DM (type 2 diabetes mellitus) 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
[2020-09-01] MEDS: SODIUM CHLORIDE 0.9% 1000ML 1,000 ML IV SCH (11:09)
[2020-09-01] MEDS: DICLOFENAC SOD 1% GEL 100 GM TUBE EXT PRN (12:08)
[2020-09-01] MEDS: WARFARIN SOD 2 MG TAB PO SCH (15:19)
[2020-09-01] MEDS: ROSUVASTATIN CALCIUM 10 MG TAB PO SCH (20:26)
[2020-09-01] MEDS: DOCUSATE SODIUM 100 MG CAP PO SCH (20:26)
[2020-09-01] MEDS: TAMSULOSIN HCL 0.4 MG CAP PO SCH (20:27)
[2020-09-01] MEDS ORDERED: METOPROLOL TARTRATE 1 MG/ML VIAL IV STA (20:39)
[2020-09-01] MEDS: cefTRIAXone SODIUM 1,000 MG in DEXTROSE 5% 50 ML IV SCH (21:02)
[2020-09-01] MEDS ORDERED: SODIUM CHLORIDE 0.9% 500 ML IV SCH (23:15)
[2020-09-02] MEDS: SODIUM CHLORIDE 0.9% 1000ML 1,000 ML IV SCH ×2 (00:32→17:32)
[2020-09-02] MEDS: POLYETHYLENE (MIRALAX) 17 GM PACK PO PRN (05:31)
[2020-09-02] MEDS: LEVOTHYROXINE SODIUM 100 MCG TABLET PO SCH (05:31)
[2020-09-02 06:50] LABS: Basophils # (auto) 0.02 K/uL (0-0.2); Basophils % (auto) 0.2 %; Eosinophils # (auto) 0.71 K/uL (0-0.5); Eosinophils % (auto) 6.4 %; Hematocrit (blood only) 23.7 % (37-47); Hemoglobin 7.5 g/dL (12.0-16.0); Immature Granulocytes # (auto) 0.05 K/uL (0.00-0.02); Immature Granulocytes % (auto) 0.4 %; Lymphocytes # (auto) 1.86 K/uL (1.2-3.4); Lymphocytes % (auto) 16.7 %; Mean Corpuscular Hemoglobin 25.1 pg (25-34); Mean Corpuscular Hgb Conc 31.6 g/dL (32-36); Mean Corpuscular Volume 79.3 fL (80-100); Monocytes # (auto) 0.48 K/uL (0.11-0.59); Monocytes % (auto) 4.3 %; Neutrophils # (auto) 8.04 K/uL (1.4-6.5); Platelet Count 198 K/uL (130-400); RDW Coefficient of Variation 18.1 % (11.5-14.5); RDW Standard Deviation 52.1 fL (36.4-46.3); Red Blood Count 2.99 M/uL (4.2-5.4); White Blood Count 11.16 K/uL (4.8-10.8)
[2020-09-02 07:10] LABS: INR 3.7 (0.9-1.1); Prothrombin Time 36.7 Seconds (9.0-12.0)
[2020-09-02 07:13] LABS: Anisocytosis Present
[2020-09-02 07:15] LABS: BUN Creatinine Ratio 28.4 (10-20); Calcium 7.8 mg/dl (8.5-10.1); Creatinine Clr Calc Pharmacy 32.6 ml/min; Est GFR (African American) 56.3; Est GFR (Non-African American) 48.6; Potassium 4.1 mmol/L (3.5-5.1)
[2020-09-02] MEDS ORDERED: SODIUM CHLORIDE 0.9% 250 ML IV PRN (08:02)
--- NOTE | 2020-09-02 08:08 | Progress Notes ---
DATE: 09/02/2020 SUBJECTIVE: An 85-year-old white female postop day 4 from IM nailing of left intertrochanteric fracture. She is doing a bit better this morning. Foot pain seems to be resolved. She is less confused. No new complaints. Just not real optimistic. OBJECTIVE: VITAL SIGNS: Temperature 37.0. Vital signs stable. GENERAL: Shows a pleasant elderly female. She is lying in bed, looks pretty comfortable. She is awake, alert and oriented. EXTREMITIES: Examination of the left leg reveals the leg to be well aligned. Dressings are clean, dry and intact. Thigh is soft and supple. She is neurologically intact. She can dorsiflex and plantarflex her foot appropriately. LABORATORY DATA: Hemoglobin 7.5. Hematocrit 23.7. White cell count 11.16. INR is 3.7. Electrolytes are stable. ASSESSMENT: An 85-year-old white female postop day 4 from IM nailing of the left intertrochanteric fracture. She seems to be doing better today. She is less confused. Foot pain is improved. Her INR is supratherapeutic and will need to be careful with that. PLAN: 1. DVT prophylaxis including thigh-high TEDs, SCDs, and Coumadin. She needs her Coumadin dose decreased. Excessive elevated INR. will increase her risk of bleeding. 2. PT/OT. She can weightbear as tolerated, left lower extremity. 3. Pain control, doing okay with current pain regimen. 4. Foot pain. Foot pain seems to be resolved. I think this is highly likely an episode of gout, which resolved with the prednisone. 5. Disposition: She is orthopedically okay for discharge any time. I need to see her back in 2-3 weeks from surgery date. Any orthopedic questions can be directed at [phone].
[2020-09-02] MEDS: CHOLECALCIFEROL 1,000 UNITS 25 MCG TAB PO SCH (08:20)
[2020-09-02] MEDS: FERROUS SULFATE 325 MG TAB PO SCH (08:21)
[2020-09-02] MEDS: CALCIUM CARBONATE 1250MG TAB PO SCH (08:21)
[2020-09-02] MEDS: INSULIN GLARGINE SOLOSTAR 100 UNITS/ML 3 ML PEN SC SCH ×2 (08:21→20:35)
[2020-09-02] MEDS: ASPIRIN 81 MG ECTAB PO SCH (08:22)
[2020-09-02] MEDS: VERAPAMIL HCL 180 MG TABCR PO SCH (08:22)
[2020-09-02] MEDS: INSULIN ASPART 100 UNITS/ML 3 ML PEN SC SCH ×4 (08:26→20:34)
--- NOTE | 2020-09-02 12:50 | Hospitalist Progress Note ---
Date of Service September 02, 2020 Assessment & Plan (1) Closed left hip fracture: Intertrochanteric fracture of the left hip following mechanical fall Will have surgery this afternoon No contraindication for proposed surgery Appreciate orthopedic input We will continue and OT and will need possible placement on discharge Orthopedics will see her in about 2 to 3 weeks Complains some pain in the left hip-medications given and will continue PT and OT Remains stable (2) UTI (urinary tract infection): Noted to have UTI secondary to Enterobacter cloacae She was started on intravenous cefepime and that has been changed to IV ceftriaxone Her white count seems to be elevated this morning at 15,000 We will monitor CBC-we will need to add and/or change antibiotic if CBC continues to rise or the patient develops any fever and/or chills (3) Status post fall: (4) Anemia: Acute blood loss anemia Has baseline hemoglobin around 8 which dropped to 7.3 Type and crossmatch 2 units We will give 1 unit of blood transfusion today and monitor CBC Hemoglobin dropped below 8 this morning She will be given second unit of blood transfusion Hemoglobin went up to 8.6 as of 08/31/2020 Hemoglobin dropped to 7.5 as of 09/02/2020 She will get another unit of blood transfusion today (5) Paroxysmal A-fib: Heart rate is controlled INR is little supratherapeutic Received vitamin K in the emergency INR this afternoon was 1.5 Received 5 mg Coumadin last night We will continue with her usual dose of Coumadin from this afternoon Will start low-dose heparin without bolus from this afternoon Heart rate remains stable and INR is therapeutic (6) T2DM (type 2 diabetes mellitus): Will hold any oral medications SSI (7) HTN (hypertension): Blood pressure is controlled (8) Hypothyroidism: Continue supplement (9) CKD (chronic kidney disease) stage 3, GFR 30-59 ml/min: Has been getting cautious amount of intravenous fluid Creatinine remains at baseline We will monitor-creatinine has been normalized DVT prophylaxis Restart Coumadin We will start a small dose of heparin without bolus until INR is therapeutic INR is elevated at 3.7 We will hold Coumadin for today and decrease the dose from tomorrow CODE STATUS Full Likely to be discharged on Wednesday or Wednesday following approval to go to a skilled care facility Admission and Anticipated Discharge Date Admission Date: August 28, 2020 Subjective 08/29/2020 The patient was seen and examined in medical telemetry unit She complains of some pain in left hip otherwise remains asymptomatic He admits to have mechanical fall 08/30/2020 The patient was seen and examined in medical telemetry unit She is a status post left hip surgery She complains of some pain in the left hip and the left foot Denies any other significant symptoms 08/31/2020 The patient was seen and examined in medical telemetry unit She complains of pain in the left hip and left foot Denies any other symptoms 09/01/2020 The patient was seen and examined in medical telemetry unit She has had episode of confusion last evening with some chills but did not have any documented high temperature She has been feeling generally weak this morning but much better compared with yesterday Denies any fever and/or chills, any abdominal pain, nausea and or vomiting 09/02/2020 The patient was seen and examined in medical telemetry unit She has been feeling much better but remains generally weak and lethargic Denies any significant pain Review of Systems Review of Systems: All systems reviewed and are unremarkable except as noted below Musculoskeletal: Pain in left hip with any movement of the right lower extremity and pelvis Physical Exam Physical Exam: Lying in bed comfortably Constitutional: average body habitus; not ill appearing Eyes: PERRL, conjunctivae normal, anicteric sclerae ENMT: external ear and nose normal, oropharynx normal Neck: trachea midline, no thyromegaly Respiratory: no respiratory distress Auscultation: lungs clear to auscultation bilaterally Cardiovascular: Rate/Rhythm: + irregularly irregular Heart Sounds: + murmur (2/6 ejection systolic murmur over aortic area) Gastrointestinal (Abdomen): Inspection/Auscultation: normal bowel sounds; abdomen not distended Percussion/Palpation: abdomen soft; abdomen nontender Musculoskeletal: Hip: + limited ROM of hip (Left hip with excruciating pain) Neurologic: Alert, awake and oriented x3 Psychiatric: A+Ox3, euthymic affect Lymphatic: no cervical or axillary lymphadenopathy Results & Data Results & Data ([facility]) Vital Signs (Past 12 Hours) Vital Signs Temp Pulse Pulse Pulse Resp BP BP 09/02/20 11:50 37.0 C 90 18 139/59 L 09/02/20 11:20 36.8 C 86 18 144/62 H 09/02/20 11:00 36.8 C 86 18 144/62 H 09/02/20 10:50 36.8 C 90 18 133/57 L 09/02/20 10:35 36.9 C 97 H 18 136/63 09/02/20 10:17 36.9 C 106 H 18 128/62 09/02/20 07:30 37.0 C 85 16 122/58 L 09/02/20 03:58 37.3 C 90 16 115/50 L Pulse Ox 09/02/20 11:50 95 09/02/20 11:20 95 09/02/20 11:00 95 09/02/20 10:50 95 09/02/20 10:35 95 09/02/20 10:17 09/02/20 07:30 91 09/02/20 03:58 92 Laboratory Results Short CBC 09/02/20 Range/Units 06:34 WBC 11.16 H (4.8-10.8) K/uL Hgb 7.5 L (12.0-16.0) g/dL Hct 23.7 L (37-47) % Plt Count 198 (130-400) K/uL BMP 09/02/20 06:34 Sodium 139 Potassium 4.1 Chloride 111 H Carbon Dioxide 21 BUN 30 H Creatinine 1.04 Glucose 137 H Calcium 7.8 L Medications Administered Current Inpatient Medications Acetaminophen (Acetaminophen 325 Mg Tab) 650 mg PO Q4H PRN PRN Reason: pain/fever Stop: 09/27/20 23:24 Last Admin: 09/01/20 08:19 Dose: 650 mg Documented by: Aspirin (Aspirin 81 Mg Ectab) 81 mg PO MoWeFr@0900 [facility] Stop: 09/29/20 08:59 Last Admin: 09/02/20 08:22 Dose: 81 mg Documented by: Calcium Carbonate (Calcium Carbonate 1250mg Tab) 1,250 mg PO DAILY [facility] Stop: 09/28/20 08:59 Last Admin: 09/02/20 08:21 Dose: 1,250 mg Documented by: Dextrose (Dextrose 50% 50 Ml Syringe) 25 - 50 ml IV UD PRN; Protocol PRN Reason: Hypoglycemia Protocol Stop: 09/27/20 23:44 Diclofenac Sodium (Diclofenac Sod 1% Gel 100 Gm Tube) 4 gm EXT BID PRN PRN Reason: Pain Stop: 09/29/20 18:57 Last Admin: 12/13/20 12:08 Dose: 4 gm Documented by: Docusate Sodium (Docusate Sodium 100 Mg Cap) 100 mg PO HS NO Stop: 09/28/20 20:59 Last Admin: 09/01/20 20:26 Dose: 100 mg Documented by: Ferrous Sulfate (Ferrous Sulfate 325 Mg Tab) 325 mg PO QAM ON Stop: 09/28/20 08:59 Last Admin: 09/02/20 08:21 Dose: 325 mg Documented by: Fluticasone Propionate (Fluticasone Propionate Na Spr 16 Gm Btl) 2 sprays NA HS PRN PRN Reason: Nasal Congestion Stop: 09/27/20 23:24 Glucagon (Glucagon For Inj 1 Mg Vial) 1 mg SQ UD PRN; Protocol PRN Reason: Hypoglycemia Protocol Stop: 09/27/20 23:44 Glucose (Glucose 40% Gel 15 Gm Tube) 15 - 30 gm PO UD PRN; Protocol PRN Reason: Hypoglycemia Protocol Stop: 09/27/20 23:44 Glucose (Glucose 10 Tabs/Tube) 4 - 8 tabs PO UD PRN; Protocol PRN Reason: Hypoglycemia Protocol Stop: 09/27/20 23:44 Sodium Chloride (Nss 1000ml) 1,000 mls @ 75 mls/hr IV .[id number] NO Stop: 09/27/20 23:24 Last Infusion: 09/02/20 10:21 Dose: 0 mls/hr Documented by: Ceftriaxone Sodium 1,000 mg/ (Dextrose) 50 mls @ 100 mls/hr IV Q24H NO Stop: 09/09/20 21:59 Last Infusion: 09/01/20 21:41 Dose: Infused Documented by: Sodium Chloride (Nss) 250 mls @ 15 mls/hr IV .[id number] PRN PRN Reason: For Transfusion Stop: 09/02/20 18:03 Insulin Aspart (Insulin Aspart 100 Units/Ml 3 Ml Pen) 0 units SC ACHS NO Stop: 09/28/20 20:59 Last Admin: 09/02/20 08:26 Dose: 5 units Documented by: Insulin Glargine (Insulin Glargine Solostar 100 Units/Ml 3 Ml Pen) 6 units SC BID NO Stop: 09/29/20 20:59 Last Admin: 09/02/20 08:21 Dose: 6 units Documented by: Levothyroxine Sodium (Levothyroxine Sodium 100 Mcg Tablet) 100 mcg PO DAILYBB [facility] Stop: 09/28/20 06:29 Last Admin: 09/02/20 05:31 Dose: 100 mcg Documented by: Miscellaneous (Carbohydrates For Hypoglycemia ) 15 - 30 gm PO UD PRN PRN Reason: Hypoglycemia Treatment Stop: 09/27/20 23:44 Morphine Sulfate (Morphine Sulfate 2 Mg/Ml Carp) 2 mg IV Q3H PRN PRN Reason: Pain Stop: 09/11/20 23:24 Naloxone HCl (Naloxone Hcl 0.4 Mg/1 Ml Vial/Carp) 0.1 mg IV UD PRN PRN Reason: Opioid Overdose Stop: 09/28/20 17:09 Nitroglycerin (Nitroglycerin Sl 0.4 Mg/Tab Tab) 0.4 mg SL UD PRN PRN Reason: Chest Pain Stop: 09/27/20 23:24 Ondansetron HCl (Ondansetron Inj 2 Mg/Ml 2 Ml Vial) 4 mg IV Q6H PRN PRN Reason: Nausea Stop: 09/27/20 23:24 Polyethylene Glycol (Polyethylene (Miralax) 17 Gm Pack) 17 gm PO DAILY PRN PRN Reason: Constipation Stop: 09/27/20 23:24 Last Admin: 09/02/20 05:31 Dose: 17 gm Documented by: Prednisone (Prednisone 10 Mg Tablet) 10 mg PO DAILY@0800 [facility] Stop: 09/04/20 08:01 Last Admin: 09/01/20 07:52 Dose: 10 mg Documented by: Rosuvastatin Calcium (Rosuvastatin Calcium 10 Mg Tab) 10 mg PO [facility] Stop: 09/28/20 20:59 Last Admin: 09/01/20 20:26 Dose: 10 mg Documented by: Tamsulosin HCl (Tamsulosin Hcl 0.4 Mg Cap) 0.4 mg PO [facility] Stop: 09/28/20 20:59 Last Admin: 09/01/20 20:27 Dose: 0.4 mg Documented by: Verapamil HCl (Verapamil Hcl 180 Mg Tabcr) 180 mg PO [facility] Stop: 09/28/20 08:59 Last Admin: 09/02/20 08:22 Dose: 180 mg Documented by: Vitamin D (Cholecalciferol 1,000 Units 25 Mcg Tab) [facility] Stop: 09/28/20 08:59 Last Admin: 09/02/20 08:20 Dose: 2,000 units Documented by: Warfarin Sodium (Warfarin Sod 2 Mg Tab) 2 mg PO DAILY@1600 NO Stop: 09/29/20 15:59 Last Admin: 09/01/20 15:19 Dose: 2 mg Documented by: (1) T2DM (type 2 diabetes mellitus) Chronic kidney disease stage: stage 3 (moderate) Diabetes mellitus complication detail: with chronic kidney disease Diabetes mellitus complication status: with kidney complications 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
[2020-09-02] MEDS: predniSONE 10 MG TABLET PO SCH ×2 (15:08→15:16)
[2020-09-02] MEDS: ACETAMINOPHEN 325 MG TAB PO PRN (18:59)
[2020-09-02] MEDS: TAMSULOSIN HCL 0.4 MG CAP PO SCH (20:33)
[2020-09-02] MEDS: ROSUVASTATIN CALCIUM 10 MG TAB PO SCH (20:33)
[2020-09-02] MEDS: DOCUSATE SODIUM 100 MG CAP PO SCH (20:33)
[2020-09-02] MEDS: cefTRIAXone SODIUM 1,000 MG in DEXTROSE 5% 50 ML IV SCH (21:23)
[2020-09-03] MEDS: ACETAMINOPHEN 325 MG TAB PO PRN (00:13)
[2020-09-03] MEDS: SODIUM CHLORIDE 0.9% 1000ML 1,000 ML IV SCH ×2 (05:05→18:17)
[2020-09-03] MEDS: LEVOTHYROXINE SODIUM 100 MCG TABLET PO SCH (05:05)
[2020-09-03 07:08] LABS: INR 3.8 (0.9-1.1); Prothrombin Time 37.3 Seconds (9.0-12.0)
[2020-09-03] MEDS: FERROUS SULFATE 325 MG TAB PO SCH (08:17)
[2020-09-03] MEDS: VERAPAMIL HCL 180 MG TABCR PO SCH (08:17)
--- NOTE | 2020-09-03 08:17 | Progress Notes ---
DATE: 09/03/2020 SUBJECTIVE: An 85-year-old white female now 5 days out from IM nailing of a left intertrochanteric fracture. She is doing better this morning. Seems to have a better attitude and improved demeanor. More optimistic. Pain is improved. Denies any chest pain or shortness of breath. OBJECTIVE: VITAL SIGNS: Temperature 36.4. Vital signs stable. GENERAL: Shows a pleasant elderly female. I had to awake her this morning. EXTREMITIES: Examination of the left leg reveals the dressing to be clean, dry and intact. Thigh is soft and supple. No significant drainage. She can dorsiflex and plantarflex her foot appropriately. LABORATORY DATA: No new labs today. ASSESSMENT: An 85-year-old white female postoperative day 5 from intramedullary nailing of a left intertrochanteric fracture, doing pretty well. Her pain seems to be improved today. Foot pain seems to be resolved. Her white count has been a little bit elevated, likely related to stress and maybe the steroids that we have given her. There are no focal signs of infection. PLAN: 1. DVT prophylaxis including thigh-high TEDs, SCDs, and she is back on her Coumadin. We need to be careful not to overdose this. 2. PT/OT. She can weightbear as tolerated in the left lower extremity. 3. Pain control, doing okay with current pain regimen. 4. Disposition: She is orthopedically okay for discharge any time. I need to see her back in 2-3 weeks out from her surgery date. Any orthopedic questions can be directed to me at [phone].
[2020-09-03] MEDS: CALCIUM CARBONATE 1250MG TAB PO SCH (08:18)
[2020-09-03] MEDS: predniSONE 10 MG TABLET PO SCH (08:18)
[2020-09-03] MEDS: CHOLECALCIFEROL 1,000 UNITS 25 MCG TAB PO SCH (08:18)
[2020-09-03] MEDS: INSULIN GLARGINE SOLOSTAR 100 UNITS/ML 3 ML PEN SC SCH ×2 (08:18→20:36)
[2020-09-03] MEDS: INSULIN ASPART 100 UNITS/ML 3 ML PEN SC SCH ×4 (08:21→20:36)
[2020-09-03 08:26] LABS: Basophils # (auto) 0.01 K/uL (0-0.2); Basophils % (auto) 0.1 %; Eosinophils # (auto) 0.23 K/uL (0-0.5); Eosinophils % (auto) 2.1 %; Hematocrit (blood only) 24.4 % (37-47); Hemoglobin 7.8 g/dL (12.0-16.0); Immature Granulocytes # (auto) 0.07 K/uL (0.00-0.02); Immature Granulocytes % (auto) 0.6 %; Lymphocytes # (auto) 1.84 K/uL (1.2-3.4); Lymphocytes % (auto) 16.9 %; Mean Corpuscular Hemoglobin 26.4 pg (25-34); Mean Corpuscular Volume 82.4 fL (80-100); Mean Platelet Volume 10.3 fL (7.4-10.4); Monocytes # (auto) 0.68 K/uL (0.11-0.59); Monocytes % (auto) 6.3 %; Neutrophils # (auto) 8.04 K/uL (1.4-6.5); Platelet Count 195 K/uL (130-400); RDW Standard Deviation 54.1 fL (36.4-46.3); Red Blood Count 2.96 M/uL (4.2-5.4); White Blood Count 10.87 K/uL (4.8-10.8)
[2020-09-03 08:42] LABS: BUN Creatinine Ratio 30.1 (10-20); Calcium 7.7 mg/dl (8.5-10.1); Creatinine Clr Calc Pharmacy 36.4 ml/min; Est GFR (African American) 63.7; Est GFR (Non-African American) 54.9; Potassium 4.3 mmol/L (3.5-5.1)
[2020-09-03 08:59] LABS: Polychromasia 1+
[2020-09-03] MEDS ORDERED: WARFARIN SOD 0.5 MG TAB PO SCH (16:00)
--- NOTE | 2020-09-03 16:42 | Hospitalist Progress Note ---
Date of Service September 03, 2020 Assessment & Plan (1) Closed left hip fracture: Intertrochanteric fracture of the left hip following mechanical fall Will have surgery this afternoon No contraindication for proposed surgery Appreciate orthopedic input We will continue and OT and will need possible placement on discharge Orthopedics will see her in about 2 to 3 weeks Complains some pain in the left hip-medications given and will continue PT and OT Remains stable-likely to be transferred to rehab tomorrow (2) UTI (urinary tract infection): Noted to have UTI secondary to Enterobacter cloacae She was started on intravenous cefepime and that has been changed to IV ceftriaxone Her white count seems to be elevated this morning at 15,000 We will monitor CBC-we will need to add and/or change antibiotic if CBC continues to rise or the patient develops any fever and/or chills White count is coming down and no fever and/or chills-we will continue current antibiotic (3) Status post fall: (4) Anemia: Acute blood loss anemia Has baseline hemoglobin around 8 which dropped to 7.3 Type and crossmatch 2 units We will give 1 unit of blood transfusion today and monitor CBC Hemoglobin dropped below 8 this morning She will be given second unit of blood transfusion Hemoglobin went up to 8.6 as of 08/31/2020 Hemoglobin dropped to 7.5 as of 09/02/2020 She will get another unit of blood transfusion today Hemoglobin went up to 7.8-will not give any more blood transfusion until it drops below this level (5) Paroxysmal A-fib: Heart rate is controlled INR is little supratherapeutic Received vitamin K in the emergency INR this afternoon was 1.5 Received 5 mg Coumadin last night We will continue with her usual dose of Coumadin from this afternoon Will start low-dose heparin without bolus from this afternoon Heart rate remains stable and INR is therapeutic (6) T2DM (type 2 diabetes mellitus): Will hold any oral medications SSI (7) HTN (hypertension): Blood pressure is controlled (8) Hypothyroidism: Continue supplement (9) CKD (chronic kidney disease) stage 3, GFR 30-59 ml/min: Has been getting cautious amount of intravenous fluid Creatinine remains at baseline We will monitor-creatinine has been normalized DVT prophylaxis Restart Coumadin We will start a small dose of heparin without bolus until INR is therapeutic INR is elevated at 3.7 We will hold Coumadin for today and decrease the dose from tomorrow Coumadin has been on hold CODE STATUS Full Likely to be discharged on Wednesday or Wednesday following approval to go to a skilled care facility Admission and Anticipated Discharge Date Admission Date: August 28, 2020 Subjective 08/29/2020 The patient was seen and examined in medical telemetry unit She complains of some pain in left hip otherwise remains asymptomatic He admits to have mechanical fall 08/30/2020 The patient was seen and examined in medical telemetry unit She is a status post left hip surgery She complains of some pain in the left hip and the left foot Denies any other significant symptoms 08/31/2020 The patient was seen and examined in medical telemetry unit She complains of pain in the left hip and left foot Denies any other symptoms 09/01/2020 The patient was seen and examined in medical telemetry unit She has had episode of confusion last evening with some chills but did not have any documented high temperature She has been feeling generally weak this morning but much better compared with yesterday Denies any fever and/or chills, any abdominal pain, nausea and or vomiting 09/02/2020 The patient was seen and examined in medical telemetry unit She has been feeling much better but remains generally weak and lethargic Denies any significant pain 09/03/2020 The patient was seen and examined in medical telemetry unit She has been feeling a lot better today following blood transfusion Complains of minimal pain in the left hip Review of Systems Review of Systems: All systems reviewed and are unremarkable except as noted below Musculoskeletal: Pain in left hip with any movement of the right lower extremity and pelvis Physical Exam Physical Exam: Lying in bed comfortably Constitutional: average body habitus; not ill appearing Eyes: PERRL, conjunctivae normal, anicteric sclerae ENMT: external ear and nose normal, oropharynx normal Neck: trachea midline, no thyromegaly Respiratory: no respiratory distress Auscultation: lungs clear to auscultation bilaterally Cardiovascular: Rate/Rhythm: + irregularly irregular Heart Sounds: + murmur (2/6 ejection systolic murmur over aortic area) Gastrointestinal (Abdomen): Inspection/Auscultation: normal bowel sounds; abdomen not distended Percussion/Palpation: abdomen soft; abdomen nontender Musculoskeletal: Hip: + limited ROM of hip (Left hip with excruciating pain) Neurologic: Alert, awake and oriented x3. Generally weak but no focal sensory and or motor deficit appreciated Psychiatric: A+Ox3, euthymic affect Lymphatic: no cervical or axillary lymphadenopathy Results & Data Results & [facility] ([facility]) Vital Signs (Past 12 Hours) Vital Signs Temp Pulse Pulse Resp BP Pulse Ox 09/03/20 15:33 36.9 C 86 18 146/64 H 96 09/03/20 15:21 80 09/03/20 12:00 36.4 C L 81 16 145/56 H 94 09/03/20 07:37 36.4 C L 71 18 120/58 L 93 09/03/20 07:25 70 Laboratory Results Short CBC 09/03/20 Range/Units 06:06 WBC 10.87 H (4.8-10.8) K/uL Hgb 7.8 L (12.0-16.0) g/dL Hct 24.4 L (37-47) % Plt Count 195 (130-400) K/uL BMP 09/03/20 06:06 Sodium 140 Potassium 4.3 Chloride 111 H Carbon Dioxide 23 BUN 28 H Creatinine 0.94 Glucose 167 H Calcium 7.7 L Medications Administered Current Inpatient Medications Acetaminophen (Acetaminophen 325 Mg Tab) 650 mg PO Q4H PRN PRN Reason: pain/fever Stop: 09/27/20 23:24 Last Admin: 09/03/20 00:13 Dose: 650 mg Documented by: Aspirin (Aspirin 81 Mg Ectab) 81 mg PO MoWeFr@0900 [facility] Stop: 09/29/20 08:59 Last Admin: 09/02/20 08:22 Dose: 81 mg Documented by: Calcium Carbonate (Calcium Carbonate 1250mg Tab) 1,250 mg PO DAILY [facility] Stop: 09/28/20 08:59 Last Admin: 09/03/20 08:18 Dose: 1,250 mg Documented by: Dextrose (Dextrose 50% 50 Ml Syringe) 25 - 50 ml IV UD PRN; Protocol PRN Reason: Hypoglycemia Protocol Stop: 09/27/20 23:44 Diclofenac Sodium (Diclofenac Sod 1% Gel 100 Gm Tube) 4 gm EXT BID PRN PRN Reason: Pain Stop: 09/29/20 18:57 Last Admin: 09/01/20 12:08 Dose: 4 gm Documented by: Docusate Sodium (Docusate Sodium 100 Mg Cap) 100 mg PO HS [facility] Stop: 09/28/20 20:59 Last Admin: 09/02/20 20:33 Dose: 100 mg Documented by: Ferrous Sulfate (Ferrous Sulfate 325 Mg Tab) 325 mg PO QAM [facility] Stop: 09/28/20 08:59 Last Admin: 09/03/20 08:17 Dose: 325 mg Documented by: Fluticasone Propionate (Fluticasone Propionate Na Spr 16 Gm Btl) 2 sprays NA HS PRN PRN Reason: Nasal Congestion Stop: 09/27/20 23:24 Glucagon (Glucagon For Inj 1 Mg Vial) 1 mg SQ UD PRN; Protocol PRN Reason: Hypoglycemia Protocol Stop: 09/27/20 23:44 Glucose (Glucose 40% Gel 15 Gm Tube) 15 - 30 gm PO UD PRN; Protocol PRN Reason: Hypoglycemia Protocol Stop: 09/27/20 23:44 Glucose (Glucose 10 Tabs/Tube) 4 - 8 tabs PO UD PRN; Protocol PRN Reason: Hypoglycemia Protocol Stop: 09/27/20 23:44 Sodium Chloride (Nss 1000ml) 1,000 mls @ 75 mls/hr IV .[id number] [facility] Stop: 09/27/20 23:24 Last Admin: 09/03/20 05:05 Dose: 75 mls/hr Documented by: Ceftriaxone Sodium 1,000 mg/ (Dextrose) 50 mls @ 100 mls/hr IV Q24H [facility] Stop: 09/09/20 21:59 Last Infusion: 09/02/20 21:51 Dose: Infused Documented by: Insulin Aspart (Insulin Aspart 100 Units/Ml 3 Ml Pen) 0 units SC ACHS [facility] Stop: 09/28/20 20:59 Last Admin: 09/03/20 13:31 Dose: 10 units Documented by: Insulin Glargine (Insulin Glargine Solostar 100 Units/Ml 3 Ml Pen) 6 units SC BID [facility] Stop: 09/29/20 20:59 Last Admin: 09/03/20 08:18 Dose: 6 units Documented by: Levothyroxine Sodium (Levothyroxine Sodium 100 Mcg Tablet) 100 mcg PO DAILYBB [facility] Stop: 09/28/20 06:29 Last Admin: 09/03/20 05:05 Dose: 100 mcg Documented by: Miscellaneous (Carbohydrates For Hypoglycemia ) 15 - 30 gm PO UD PRN PRN Reason: Hypoglycemia Treatment Stop: 09/27/20 23:44 Morphine Sulfate (Morphine Sulfate 2 Mg/Ml Carp) 2 mg IV Q3H PRN PRN Reason: Pain Stop: 09/11/20 23:24 Naloxone HCl (Naloxone Hcl 0.4 Mg/1 Ml Vial/Carp) 0.1 mg IV UD PRN PRN Reason: Opioid Overdose Stop: 09/28/20 17:09 Nitroglycerin (Nitroglycerin Sl 0.4 Mg/Tab Tab) 0.4 mg SL UD PRN PRN Reason: Chest Pain Stop: 09/27/20 23:24 Ondansetron HCl (Ondansetron Inj 2 Mg/Ml 2 Ml Vial) 4 mg IV Q6H PRN PRN Reason: Nausea Stop: 09/27/20 23:24 Polyethylene Glycol (Polyethylene (Miralax) 17 Gm Pack) 17 gm PO DAILY PRN PRN Reason: Constipation Stop: 09/27/20 23:24 Last Admin: 09/02/20 05:31 Dose: 17 gm Documented by: Prednisone (Prednisone 10 Mg Tablet) 10 mg PO DAILY@0800 [facility] Stop: 09/04/20 08:01 Last Admin: 09/03/20 08:18 Dose: 10 mg Documented by: Rosuvastatin Calcium (Rosuvastatin Calcium 10 Mg Tab) 10 mg PO [facility] Stop: 09/28/20 20:59 Last Admin: 09/02/20 20:33 Dose: 10 mg Documented by: Tamsulosin HCl (Tamsulosin Hcl 0.4 Mg Cap) 0.4 mg PO [facility] Stop: 09/28/20 20:59 Last Admin: 09/02/20 20:33 Dose: 0.4 mg Documented by: Verapamil HCl (Verapamil Hcl 180 Mg Tabcr) 180 mg PO [facility] Stop: 09/28/20 08:59 Last Admin: 09/03/20 08:17 Dose: 180 mg Documented by: Vitamin D (Cholecalciferol 1,000 Units 25 Mcg Tab) 2,000 units PO [facility] Stop: 09/28/20 08:59 Last Admin: 09/03/20 08:18 Dose: 2,000 units Documented by: Warfarin Sodium (Warfarin Sod 0.5 Mg Tab) 1.5 mg PO DAILY@1600 [facility] Stop: 10/03/20 15:59 (1) T2DM (type 2 diabetes mellitus) 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
[2020-09-03] MEDS: DOCUSATE SODIUM 100 MG CAP PO SCH (20:36)
[2020-09-03] MEDS: POLYETHYLENE (MIRALAX) 17 GM PACK PO PRN (20:36)
[2020-09-03] MEDS: ROSUVASTATIN CALCIUM 10 MG TAB PO SCH (20:36)
[2020-09-03] MEDS: TAMSULOSIN HCL 0.4 MG CAP PO SCH (20:36)
[2020-09-03] MEDS: cefTRIAXone SODIUM 1,000 MG in DEXTROSE 5% 50 ML IV SCH (20:37)
[2020-09-04] MEDS: ACETAMINOPHEN 325 MG TAB PO PRN ×2 (00:01→09:21)
[2020-09-04] MEDS: SODIUM CHLORIDE 0.9% 1000ML 1,000 ML IV SCH ×3 (05:36→20:08)
[2020-09-04] MEDS: LEVOTHYROXINE SODIUM 100 MCG TABLET PO SCH (05:39)
[2020-09-04 06:39] LABS: Basophils # (auto) 0.01 K/uL (0-0.2); Basophils % (auto) 0.1 %; Eosinophils # (auto) 0.43 K/uL (0-0.5); Eosinophils % (auto) 4.7 %; Hematocrit (blood only) 23.4 % (37-47); Hemoglobin 7.3 g/dL (12.0-16.0); Immature Granulocytes # (auto) 0.15 K/uL (0.00-0.02); Immature Granulocytes % (auto) 1.6 %; Lymphocytes # (auto) 2.22 K/uL (1.2-3.4); Lymphocytes % (auto) 24.1 %; Mean Corpuscular Hemoglobin 25.9 pg (25-34); Mean Corpuscular Hgb Conc 31.2 g/dL (32-36); Mean Platelet Volume 9.7 fL (7.4-10.4); Monocytes # (auto) 0.72 K/uL (0.11-0.59); Monocytes % (auto) 7.8 %; Neutrophils # (auto) 5.69 K/uL (1.4-6.5); Neutrophils % (auto) 61.7 %; Platelet Count 220 K/uL (130-400); RDW Coefficient of Variation 18.1 % (11.5-14.5); RDW Standard Deviation 54.2 fL (36.4-46.3); Red Blood Count 2.82 M/uL (4.2-5.4); White Blood Count 9.22 K/uL (4.8-10.8)
[2020-09-04 06:56] LABS: INR 3.6 (0.9-1.1); Prothrombin Time 35.1 Seconds (9.0-12.0)
[2020-09-04 07:03] LABS: Anisocytosis Present; Polychromasia 1+
[2020-09-04 07:17] LABS: Calcium 7.8 mg/dl (8.5-10.1); Creatinine Clr Calc Pharmacy 37.6 ml/min; Est GFR (African American) 65.3; Est GFR (Non-African American) 56.4; Potassium 4.1 mmol/L (3.5-5.1)
[2020-09-04] MEDS ORDERED: FUROSEMIDE 20 MG in SYRINGE 0 ML IV SCH (08:00)
[2020-09-04] MEDS ORDERED: SODIUM CHLORIDE 0.9% 250 ML IV PRN (08:03)
[2020-09-04] MEDS: ASPIRIN 81 MG ECTAB PO SCH (08:08)
[2020-09-04] MEDS: FERROUS SULFATE 325 MG TAB PO SCH (08:09)
[2020-09-04] MEDS: INSULIN GLARGINE SOLOSTAR 100 UNITS/ML 3 ML PEN SC SCH ×2 (08:09→20:34)
[2020-09-04] MEDS: CHOLECALCIFEROL 1,000 UNITS 25 MCG TAB PO SCH (08:09)
[2020-09-04] MEDS: predniSONE 10 MG TABLET PO SCH (08:09)
[2020-09-04] MEDS: CALCIUM CARBONATE 1250MG TAB PO SCH (08:10)
[2020-09-04] MEDS: VERAPAMIL HCL 180 MG TABCR PO SCH (08:11)
[2020-09-04] MEDS: INSULIN ASPART 100 UNITS/ML 3 ML PEN SC SCH ×4 (08:13→20:35)
--- NOTE | 2020-09-04 14:14 | Hospitalist Progress Note ---
Date of Service September 04, 2020 Assessment & Plan (1) Closed left hip fracture: Intertrochanteric fracture of the left hip following mechanical fall Will have surgery this afternoon No contraindication for proposed surgery Appreciate orthopedic input We will continue and OT and will need possible placement on discharge Orthopedics will see her in about 2 to 3 weeks Complains some pain in the left hip-medications given and will continue PT and OT Remains stable-likely to be transferred to rehab tomorrow (2) UTI (urinary tract infection): Noted to have UTI secondary to Enterobacter cloacae She was started on intravenous cefepime and that has been changed to IV ceftriaxone Her white count seems to be elevated this morning at 15,000 We will monitor CBC-we will need to add and/or change antibiotic if CBC continues to rise or the patient develops any fever and/or chills White count is coming down and no fever and/or chills-we will continue current antibiotic (3) Status post fall: (4) Anemia: Acute blood loss anemia Has baseline hemoglobin around 8 which dropped to 7.3 Type and crossmatch 2 units We will give 1 unit of blood transfusion today and monitor CBC Hemoglobin dropped below 8 this morning She will be given second unit of blood transfusion Hemoglobin went up to 8.6 as of 08/31/2020 Hemoglobin dropped to 7.5 as of 09/02/2020 She will get another unit of blood transfusion today Hemoglobin went up to 7.8-will not give any more blood transfusion until it drops below this level Hemoglobin dropped to 7.3 on 09/04/2020 She will be given another unit of packed red cell blood before discharge (5) Paroxysmal A-fib: Heart rate is controlled INR is little supratherapeutic Received vitamin K in the emergency INR this afternoon was 1.5 Received 5 mg Coumadin last night We will continue with her usual dose of Coumadin from this afternoon Will start low-dose heparin without bolus from this afternoon Heart rate remains stable and INR is minimally high Coumadin is on hold (6) T2DM (type 2 diabetes mellitus): Will hold any oral medications SSI (7) HTN (hypertension): Blood pressure is controlled (8) Hypothyroidism: Continue supplement (9) CKD (chronic kidney disease) stage 3, GFR 30-59 ml/min: Has been getting cautious amount of intravenous fluid Creatinine remains at baseline We will monitor-creatinine has been normalized DVT prophylaxis Restart Coumadin We will start a small dose of heparin without bolus until INR is therapeutic INR is elevated at 3.6 on 09/04/2020 Coumadin is on hold Will restart when INR is therapeutic CODE STATUS Full Likely to be discharged on Wednesday or Wednesday following approval to go to a skilled care facility Like to be transferred tomorrow Admission and Anticipated Discharge Date Admission Date: August 28, 2020 Subjective 08/29/2020 The patient was seen and examined in medical telemetry unit She complains of some pain in left hip otherwise remains asymptomatic He admits to have mechanical fall 08/30/2020 The patient was seen and examined in medical telemetry unit She is a status post left hip surgery She complains of some pain in the left hip and the left foot Denies any other significant symptoms 08/31/2020 The patient was seen and examined in medical telemetry unit She complains of pain in the left hip and left foot Denies any other symptoms 09/01/2020 The patient was seen and examined in medical telemetry unit She has had episode of confusion last evening with some chills but did not have any documented high temperature She has been feeling generally weak this morning but much better compared with yesterday Denies any fever and/or chills, any abdominal pain, nausea and or vomiting 09/02/2020 The patient was seen and examined in medical telemetry unit She has been feeling much better but remains generally weak and lethargic Denies any significant pain 09/03/2020 The patient was seen and examined in medical telemetry unit She has been feeling a lot better today following blood transfusion Complains of minimal pain in the left hip 09/04/2020 The patient was seen and examined in medical telemetry unit She denies any symptoms but hemoglobin noted to be 7.3 this morning She denies any pain and/or shortness of breath Review of Systems Review of Systems: All systems reviewed and are unremarkable except as noted below Musculoskeletal: Pain in left hip with any movement of the right lower extremity and pelvis Physical Exam Physical Exam: Lying in bed comfortably Constitutional: average body habitus; not ill appearing Eyes: PERRL, conjunctivae normal, anicteric sclerae ENMT: external ear and nose normal, oropharynx normal Neck: trachea midline, no thyromegaly Respiratory: no respiratory distress Auscultation: lungs clear to auscultation bilaterally Cardiovascular: Rate/Rhythm: + irregularly irregular Heart Sounds: + murmur (2/6 ejection systolic murmur over aortic area) Gastrointestinal (Abdomen): Inspection/Auscultation: normal bowel sounds; abdomen not distended Percussion/Palpation: abdomen soft; abdomen nontender Musculoskeletal: Hip: + limited ROM of hip (Left hip movement is slightly restricted and painful) Neurologic: Alert, awake and oriented x3. Generally weak Psychiatric: A+Ox3, euthymic affect Lymphatic: no cervical or axillary lymphadenopathy Results & Data Results & Data ([facility]) Vital Signs (Past 12 Hours) Vital Signs Temp Pulse Pulse Pulse Resp BP BP 09/04/20 14:02 36.8 C 79 18 123/75 09/04/20 13:42 36.4 C L 84 18 173/80 H 09/04/20 13:27 36.4 C L 79 18 145/64 H 09/04/20 13:07 36.7 C 81 18 143/70 H 09/04/20 11:53 36.8 C 84 18 09/04/20 07:49 36.5 C 76 20 09/04/20 07:18 73 09/04/20 04:02 87 09/04/20 03:00 36.4 C L 74 20 161/77 H BP Pulse Ox 09/04/20 14:02 92 09/04/20 13:42 95 09/04/20 13:27 09/04/20 13:07 09/04/20 11:53 177/74 H 92 09/04/20 07:49 173/71 H 94 09/04/20 07:18 09/04/20 04:02 09/04/20 03:00 92 Laboratory Results Short CBC 09/04/20 Range/Units 05:56 WBC 9.22 (4.8-10.8) K/uL Hgb 7.3 L (12.0-16.0) g/dL Hct 23.4 L (37-47) % Plt Count 220 (130-400) K/uL BMP 09/04/20 05:56 Sodium 140 Potassium 4.1 Chloride 110 H Carbon Dioxide 26 BUN 27 H Creatinine 0.92 Glucose 156 H Calcium 7.8 L Medications Administered Current Inpatient Medications Acetaminophen (Acetaminophen 325 Mg Tab) 650 mg PO Q4H PRN PRN Reason: pain/fever Stop: 09/27/20 23:24 Last Admin: 09/04/20 09:21 Dose: 650 mg Documented by: Aspirin (Aspirin 81 Mg Ectab) 81 mg PO MoWeFr@0900 [facility] Stop: 09/29/20 08:59 Last Admin: 09/04/20 08:08 Dose: 81 mg Documented by: Calcium Carbonate (Calcium Carbonate 1250mg Tab) 1,250 mg PO DAILY [facility] Stop: 09/28/20 08:59 Last Admin: 09/04/20 08:10 Dose: 1,250 mg Documented by: Dextrose (Dextrose 50% 50 Ml Syringe) 25 - 50 ml IV UD PRN; Protocol PRN Reason: Hypoglycemia Protocol Stop: 09/27/20 23:44 Diclofenac Sodium (Diclofenac Sod 1% Gel 100 Gm Tube) 4 gm EXT BID PRN PRN Reason: Pain Stop: 09/29/20 18:57 Last Admin: 09/01/20 12:08 Dose: 4 gm Documented by: Docusate Sodium (Docusate Sodium 100 Mg Cap) 100 mg PO HS [facility] Stop: 09/28/20 20:59 Last Admin: 09/03/20 20:36 Dose: 100 mg Documented by: Ferrous Sulfate (Ferrous Sulfate 325 Mg Tab) 325 mg PO QAM [facility] Stop: 09/28/20 08:59 Last Admin: 09/04/20 08:09 Dose: 325 mg Documented by: Fluticasone Propionate (Fluticasone Propionate Na Spr 16 Gm Btl) 2 sprays NA HS PRN PRN Reason: Nasal Congestion Stop: 09/27/20 23:24 Glucagon (Glucagon For Inj 1 Mg Vial) 1 mg SQ UD PRN; Protocol PRN Reason: Hypoglycemia Protocol Stop: 09/27/20 23:44 Glucose (Glucose 40% Gel 15 Gm Tube) 15 - 30 gm PO UD PRN; Protocol PRN Reason: Hypoglycemia Protocol Stop: 09/27/20 23:44 Glucose (Glucose 10 Tabs/Tube) 4 - 8 tabs PO UD PRN; Protocol PRN Reason: Hypoglycemia Protocol Stop: 09/27/20 23:44 Sodium Chloride (Nss 1000ml) 1,000 mls @ 75 mls/hr IV .[id number] [facility] Stop: 09/27/20 23:24 Last Infusion: 09/04/20 13:13 Dose: 0 mls/hr Documented by: Ceftriaxone Sodium 1,000 mg/ (Dextrose) 50 mls @ 100 mls/hr IV Q24H [facility] Stop: 09/09/20 21:59 Last Infusion: 09/03/20 21:10 Dose: Infused Documented by: Sodium Chloride (Nss) 250 mls @ 15 mls/hr IV .[id number] PRN PRN Reason: For Transfusion Stop: 09/04/20 18:04 Insulin Aspart (Insulin Aspart 100 Units/Ml 3 Ml Pen) 0 units SC ACHS [facility] Stop: 09/28/20 20:59 Last Admin: 09/04/20 13:20 Dose: 7 units Documented by: Insulin Glargine (Insulin Glargine Solostar 100 Units/Ml 3 Ml Pen) 6 units SC BID [facility] Stop: 09/29/20 20:59 Last Admin: 09/04/20 08:09 Dose: 6 units Documented by: Levothyroxine Sodium (Levothyroxine Sodium 100 Mcg Tablet) 100 mcg PO DAILYBB [facility] Stop: 09/28/20 06:29 Last Admin: 09/04/20 05:39 Dose: 100 mcg Documented by: Miscellaneous (Carbohydrates For Hypoglycemia ) 15 - 30 gm PO UD PRN PRN Reason: Hypoglycemia Treatment Stop: 09/27/20 23:44 Morphine Sulfate (Morphine Sulfate 2 Mg/Ml Carp) 2 mg IV Q3H PRN PRN Reason: Pain Stop: 09/11/20 23:24 Naloxone HCl (Naloxone Hcl 0.4 Mg/1 Ml Vial/Carp) 0.1 mg IV UD PRN PRN Reason: Opioid Overdose Stop: 09/28/20 17:09 Nitroglycerin (Nitroglycerin Sl 0.4 Mg/Tab Tab) 0.4 mg SL UD PRN PRN Reason: Chest Pain Stop: 09/27/20 23:24 Ondansetron HCl (Ondansetron Inj 2 Mg/Ml 2 Ml Vial) 4 mg IV Q6H PRN PRN Reason: Nausea Stop: 09/27/20 23:24 Polyethylene Glycol (Polyethylene (Miralax) 17 Gm Pack) 17 gm PO DAILY PRN PRN Reason: Constipation Stop: 09/27/20 23:24 Last Admin: 09/03/20 20:36 Dose: 17 gm Documented by: Rosuvastatin Calcium (Rosuvastatin Calcium 10 Mg Tab) 10 mg PO HS [facility] Stop: 09/28/20 20:59 Last Admin: 09/03/20 20:36 Dose: 10 mg Documented by: Tamsulosin HCl (Tamsulosin Hcl 0.4 Mg Cap) 0.4 mg PO HS [facility] Stop: 09/28/20 20:59 Last Admin: 09/03/20 20:36 Dose: 0.4 mg Documented by: Verapamil HCl ([facility]apamil Hcl 180 Mg Tabcr) [facility] Stop: 09/28/20 08:59 Last Admin: 09/04/20 08:11 Dose: 180 mg Documented by: Vitamin D (Cholecalciferol 1,000 Units 25 Mcg Tab) 2,000 [facility] Stop: 09/28/20 08:59 Last Admin: 09/04/20 08:09 Dose: 2,000 units Documented by: Warfarin Sodium (Warfarin Sod 0.5 Mg Tab) 1.5 mg PO DAILY@1600 [facility] Stop: 10/03/20 15:59 (1) T2DM (type 2 diabetes mellitus) Diabetes mellitus meterman insulin use: without meterman use Diabetes mellitus complication status: with kidney complications Diabetes mellitus complication detail: with chronic kidney disease Chronic kidney disease stage: stage 3 (moderate) Qualified Code(s): E11.22 - Type 2 diabetes mellitus with diabetic chronic kidney disease; N18.3 - Chronic kidney disease, stage 3 (moderate) (2) HTN (hypertension) Hypertension type: essential hypertension Qualified Code(s): I10 - Essential (primary) hypertension (3) Hypothyroidism Hypothyroidism type: unspecified Qualified Code(s): E03.9 - Hypothyroidism, unspecified
[2020-09-04] MEDS: TAMSULOSIN HCL 0.4 MG CAP PO SCH (20:34)
[2020-09-04] MEDS: ROSUVASTATIN CALCIUM 10 MG TAB PO SCH (20:34)
[2020-09-04] MEDS: DOCUSATE SODIUM 100 MG CAP PO SCH (20:34)
[2020-09-04] MEDS: cephALEXin 500 MG CAP PO SCH (20:34)
[2020-09-05] MEDS: ACETAMINOPHEN 325 MG TAB PO PRN ×2 (03:18→10:08)
[2020-09-05] MEDS: LEVOTHYROXINE SODIUM 100 MCG TABLET PO SCH (06:06)
[2020-09-05] MEDS: CALCIUM CARBONATE 1250MG TAB PO SCH (07:25)
[2020-09-05] MEDS: CHOLECALCIFEROL 1,000 UNITS 25 MCG TAB PO SCH (07:25)
[2020-09-05] MEDS: FERROUS SULFATE 325 MG TAB PO SCH (07:26)
[2020-09-05] MEDS: VERAPAMIL HCL 180 MG TABCR PO SCH (07:26)
[2020-09-05] MEDS: cephALEXin 500 MG CAP PO SCH (07:26)
[2020-09-05 08:31] LABS: Basophils # (auto) 0.01 K/uL (0-0.2); Basophils % (auto) 0.1 %; Eosinophils # (auto) 0.39 K/uL (0-0.5); Eosinophils % (auto) 4.2 %; Hemoglobin 9.3 g/dL (12.0-16.0); Immature Granulocytes # (auto) 0.16 K/uL (0.00-0.02); Immature Granulocytes % (auto) 1.7 %; Lymphocytes # (auto) 2.29 K/uL (1.2-3.4); Lymphocytes % (auto) 24.6 %; Mean Corpuscular Hgb Conc 32.1 g/dL (32-36); Mean Corpuscular Volume 84.1 fL (80-100); Mean Platelet Volume 9.7 fL (7.4-10.4); Monocytes # (auto) 0.73 K/uL (0.11-0.59); Monocytes % (auto) 7.8 %; Neutrophils # (auto) 5.74 K/uL (1.4-6.5); Neutrophils % (auto) 61.6 %; Platelet Count 240 K/uL (130-400); RDW Coefficient of Variation 17.9 % (11.5-14.5); RDW Standard Deviation 53.9 fL (36.4-46.3); Red Blood Count 3.45 M/uL (4.2-5.4); White Blood Count 9.32 K/uL (4.8-10.8)
[2020-09-05 08:43] LABS: INR 2.7 (0.9-1.1)
[2020-09-05] MEDS: INSULIN ASPART 100 UNITS/ML 3 ML PEN SC SCH ×2 (08:47→12:23)
[2020-09-05] MEDS: INSULIN GLARGINE SOLOSTAR 100 UNITS/ML 3 ML PEN SC SCH (08:48)
[2020-09-05 09:07] LABS: BUN Creatinine Ratio 28.5 (10-20); Calcium 8.2 mg/dl (8.5-10.1); Creatinine Clr Calc Pharmacy 35.2 ml/min; Est GFR (African American) 62.1; Est GFR (Non-African American) 53.6; Potassium 3.9 mmol/L (3.5-5.1)
[2020-09-05] MEDS: SODIUM CHLORIDE 0.9% 1000ML 1,000 ML IV SCH (10:11)
--- NOTE | 2020-09-05 12:56 | Hospitalist Progress Note ---
Date of Service September 05, 2020 Assessment & Plan (1) Closed left hip fracture: Intertrochanteric fracture of the left hip Secondary to mechanical fall S/P left long Troch Nail on 08/29/[address]James Hall Appreciate orthopedic input Continue PT/OT, Wound Care Falls precautions Needs follow up with Orthopedics in 2 to 3 weeks upon discharge Plan to discharge to Rehab facility today (2) UTI (urinary tract infection): Urine Cx:Enterobacter cloacae--Pansensitive Received IV cefepime>>IV ceftriaxone Transitioned to Keflex to complete the course (3) Status post fall: (4) Anemia: Acute blood loss anemia Baseline Hb ~ 8 S/P PRBCs Hb:9.3 today (5) Paroxysmal A-fib: Heart rate is controlled INR supratherapeutic>> now therapeutic S/P Vit K INR 2.7 Continue Coumadin Monitor INR (6) T2DM (type 2 diabetes mellitus): Hold oral medications Continue SSI (7) HTN (hypertension): Stable continue current medications (8) Hypothyroidism: Continue Levothyroxine (9) CKD (chronic kidney disease) stage 3, GFR 30-59 ml/min: Cr at baseline Monitor renal function DVT Px: On Coumadin CODE STATUS Full Disposition SNF Admission and Anticipated Discharge Date Admission Date: August 28, 2020 Subjective Patient is seen and examined at bedside States having leg pain at surgical site Eager to get discharged Updated patient's daughter over the phone Denies chest pain, shortness of breath, dizziness, nausea, abdominal pain Offers no other complaints Sitting in chair this morning Review of Systems Review of Systems: All systems reviewed & are unremarkable except as noted in HPI & below Physical Exam Physical Exam: Physical Exam: Vitals signs as noted above General Appearance:Moderately built and nourished, no apparent distress Head: normocephalic, Atraumatic Eyes: normal inspection, EOMI Neck: supple, Trachea midline Respiratory/Chest: Normal breath sounds, CTA Cardiovascular: Irregularly irregular, +murmur Abdomen/GI:Soft, Non tender, Bowel sounds present Extremities/Musculoskelatal:normal inspection, no edema, Left Hip surgical site in dressing Neurologic/Psych:AAOX3, grossly no focal neurological deficits Skin: normal color, warm Results & Data Results & Data ([facility]) Vital Signs (Past 12 Hours) Vital Signs Temp Pulse Pulse Resp BP Pulse Ox 09/05/20 11:43 36.5 C 76 18 135/66 94 09/05/20 07:48 36.5 C 70 16 152/64 H 92 09/05/20 03:50 36.3 C L 77 19 165/77 H 94 Laboratory Results Short CBC 09/05/20 Range/Units 07:43 WBC 9.32 (4.8-10.8) K/uL Hgb 9.3 L (12.0-16.0) g/dL Hct 29.0 L (37-47) % Plt Count 240 (130-400) K/uL BMP 09/05/20 07:43 Sodium 139 Potassium 3.9 Chloride 107 Carbon Dioxide 27 BUN 27 H Creatinine 0.96 Glucose 153 H Calcium 8.2 L (1) T2DM (type 2 diabetes mellitus) Diabetes mellitus fdc insulin use: without fdc use Diabetes mellitus complication status: with kidney complications Diabetes mellitus complication detail: with chronic kidney disease Chronic kidney disease stage: stage 3 (moderate) Qualified Code(s): E11.22 - Type 2 diabetes mellitus with diabetic chronic kidney disease; N18.3 - Chronic kidney disease, stage 3 (moderate) (2) HTN (hypertension) Hypertension type: essential hypertension Qualified Code(s): I10 - Essential (primary) hypertension (3) Hypothyroidism Hypothyroidism type: unspecified Qualified Code(s): E03.9 - Hypothyroidism, unspecified
--- NOTE | 2020-09-05 13:26 | Discharge Summary ---
Date of Service September 05, 2020 Admission HPI Per Admitting Provider CHIEF COMPLAINT: Status post fall and left hip fracture. HISTORY OF PRESENT ILLNESS: This is an 85-year-old female with past medical history significant for type 2 diabetes, hypothyroidism, chronic kidney disease stage IV, paroxysmal atrial fibrillation, hypertension, history of traumatic subdural hematoma, history of MRSA infection, history of depression, statin intolerance, who lives alone at home and ambulates with a walker. Daughter lives close by. Today in the evening when she was trying to walk with her walker, she fell on the left side and she could not get up and had pain. Did not hit her head, no loss of consciousness. Daughter came to check on her and she was found on the floor and she was brought in here and found to have left hip fracture. En route, she received fentanyl and currently she was 88% on room air, requiring oxygen, currently stable and comfortable and hemodynamically stable. Denies any headache, no blurred visions, no sore throat. Has cough, but she attributes it to postnasal drip. No loss of sense of smell or taste. She did not eat today because her appetite was not that great today. No dysphagia, no chest pain, no shortness of breath, no nausea, no abdominal pain. She moved her normal bowel movement yesterday. Normal bladder movements.Hx of recurrent uti and urosepsis. Admission Exam Per Admitting Provider PHYSICAL EXAMINATION: GENERAL: The patient is old and frail, not in acute distress. VITAL SIGNS: Temperature 37, pulse 86, respiratory rate 18, blood pressure 133/44, oxygen 92% on room air. HEENT: Pupils equal, round, and reactive to light. Oral mucosa dry. NECK: No neck masses seen. CARDIOVASCULAR: S1, S2 heard. Regular rate and rhythm. No murmur, no gallop. RESPIRATORY SYSTEM: Normal AP diameter. No accessory muscle use. No wheezing, no crackles. ABDOMEN: Soft, bowel sounds present. Nontender. No distention. CENTRAL NERVOUS SYSTEM: Alert and oriented. Speech clear. No facial droop. Moves extremities. EXTREMITIES: Left lower extremity is shortened and externally rotated. No edema or erythema seen. Principal Diagnosis IM Nailing of Left Hip Fracture Urinary tract infection Acute blood loss anemia Supratherapeutic INR Discharge Data Allergies Allergy/AdvReac Type Severity Reaction Status Date / Time sulfamethoxazole Allergy Intermediate Rash Verified 08/28/20 22:11 trimethoprim Allergy Intermediate Rash Verified 08/28/20 22:11 tetanus toxoid, adsorbed Allergy Unknown HIVES Verified 08/28/20 22:11 tetracycline Allergy Unknown hives Verified 08/28/20 22:11 rosuvastatin AdvReac Intermediate Muscle Verified 08/28/20 22:11 stiffness Consultations 08/28/20 21:16 ED Decision to Admit Stat 08/28/20 23:25 Consult Case Management - Discharge Planning Routine 08/29/20 17:10 Consult Case Management - Discharge Planning Routine Procedures Performed Operation Date: 08/29/20 07:00 Actual Procedures p Left Long Troch Nail(Left) - Emre Hall MD Hip CT: Acute comminuted mildly displaced intertrochanteric fracture of the left femur. Bladder wall thickening which can be correlated with urinalysis to exclude cystitis. Neck CT: 1. No acute cervical spine fracture or subluxation. 2. Incompletely healed minimally distracted fracture of the odontoid which was shown on CT of December 25, 2019. This suggest a nonunion. No change in alignment. Ordered Studies 08/28/20 19:57 CT cervical spine wo con Stat CT head/brain wo con Stat 08/28/20 20:41 CT hip LT wo con Stat 08/29/20 15:00 FL fluoroscopy <1hr Routine FL hip LT 2-3V Routine Hospital Course (1) Closed left hip fracture: Intertrochanteric fracture of the left hip Secondary to mechanical fall S/P left long Troch Nail on 08/29/[address]James Hall Appreciate orthopedic input Continue PT/OT, Wound Care Falls precautions Needs follow up with Orthopedics in 2 to 3 weeks upon discharge Plan to discharge to Rehab facility today (2) UTI (urinary tract infection): Urine Cx:Enterobacter cloacae--Pansensitive Received IV cefepime>>IV ceftriaxone Transitioned to Keflex to complete the course (3) Status post fall: (4) Anemia: Acute blood loss anemia Baseline Hb ~ 8 S/P PRBCs Hb:9.3 today (5) Paroxysmal A-fib: Heart rate is controlled INR supratherapeutic>> now therapeutic S/P Vit K INR 2.7 Continue Coumadin Monitor INR (6) T2DM (type 2 diabetes mellitus): Hold oral medications Continue SSI (7) HTN (hypertension): Stable continue current medications (8) Hypothyroidism: Continue Levothyroxine (9) CKD (chronic kidney disease) stage 3, GFR 30-59 ml/min: Cr at baseline Monitor renal function DVT Px: On Coumadin CODE STATUS Full Disposition SNF Total Time Total Time Spent Total Time Spent (In Minutes): 45 minutes Total Time Includes: Examination of the Patient, Discharge Planning, Medication Reconciliation, Communication With Other Providers and Other Discharge Plan Discharge Items Patient Disposition: Transfer [facility] Fac Reason For Visit: FALL Discharge Diagnosis: IM Nailing of Left Hip Fracture Urinary tract infection Acute blood loss anemia Supratherapeutic INR Condition on Discharge: Fair Activity: Per Instructions section Exercise/Sports: Gradually increase as tolerated Weightbearing: Full weightbearing Non-emergency contact: Primary Care Provider and Surgeon Call non-emergency contact if: you have any medication questions, your symptoms worsen, your pain is not controlled, your pain is worsening, your pain is unusual for you, your pain is concerning for you, you have a fever, your wound has increased redness, your wound has increased drainage and your wound pain has increased Follow-up/Referrals: Emre Hall MD [Physician] - (Orthopedic follow-up 2-3 weeks from surgery date.) Luis Whalen DO [Primary Care Provider] - Diet: Carb Consistent or DM2 Addtl Attending Provider Instructions: Follow-up with your primary care physician Dr. Whalen in 1 week on discharge from rehab facility Follow-up with your orthopedic surgeon Dr. Emre Hall in 2-3 weeks as advised (Please Call [phone]) for appointment Get Blood Test (PT/INR) on 09/06/20 and follow-up with your physician at rehab facility for Coumadin dosing and management of PT/INR Your PT/INR is 2.7 today. 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 Orthopedic follow-up 2-3 weeks from surgery date. Pending Studies at Discharge: No Stand-Alone Forms: My [employer] Skilled Items Patient informed of condition?: Yes DNR: No Discharge Level of Care: Skilled Communicable Disease: No Discharge Prognosis: Improving Lines: None Urinary Catheter: No Medications and DC Order Prescriptions: New polyethylene glycol 3350 [Miralax] 17 gram Powder In Packet 17 g PO DAILY PRN (Reason: constipation) Qty: 30 RF: 0 cephalexin 500 mg Capsule 500 mg PO BID Qty: 6 RF: 0 diclofenac sodium [Voltaren] 1 % Gel 4 g EXT BID PRN (Reason: pain) Qty: 1 RF: 0 Continued tamsulosin [Flomax] 0.4 mg capsule 0.4 mg PO HS Qty: 90 RF: 3 verapamil 180 mg tablet extended release 180 mg PO QAM RF: 0 aspirin [Aspirin Low Dose] 81 mg Tablet,Delayed Release (Dr/Ec) 81 mg PO MOWEFR RF: 0 fluticasone propionate [Flonase Allergy Relief] 50 mcg/actuation Eckley,Perez spension 2 spray INTRANASAL HS PRN (Reason: Nasal Congestion) RF: 0 cholecalciferol (vitamin D3) [Vitamin D3] 2,000 unit Capsule 2,000 unit PO QAM RF: 0 levothyroxine 100 mcg tablet 100 mcg PO DAILYBB RF: 0 ferrous sulfate 325 mg (65 mg iron) tablet 325 mg PO QAM RF: 0 docusate sodium [Col-Rite] 100 mg capsule 100 mg PO HS RF: 0 glipizide 5 mg tablet 10 mg PO BIDM RF: 0 rosuvastatin 10 mg tablet 10 mg PO HS RF: 0 warfarin 2 mg tablet 2 mg PO HS RF: 0 calcium carbonate [Calcium 500] 500 mg calcium (1,250 mg) Tablet 500 mg PO DAILY RF: 0 lisinopril 10 mg tablet 10 mg PO QAM RF: 0 Discharge Orders: Discharge Order (Routine); Ordered 09/05/20 Ordered By: Walter Zhu Admission Data Admit Date/Time: 08/28/20 22:18 Attending Provider: Walter Zhu Admit Provider: Luis Brooks Primary Care Provider: Luis Whalen Other Providers: Luis Brooks ; Kendall Smith [facility] Other Interventions: Discharge Summary Assessment (RN) Last Done: 09/05/20 13:38
== END 2020-09-05 13:45 | DRG 481 ==
LOC: ED 19:43 → SUATTDRO 22:18 → 2N 22:18

== ENCOUNTER 2022-04-06 14:17 | Inpatient (IN) ==
[2022-04-06] MEDS ORDERED: SODIUM CHLORIDE 0.9% 1000ML 1,000 ML IV STA (15:22)
[2022-04-06 15:51] LABS: Basophils # (auto) 0.02 K/uL (0-0.2); Basophils % (auto) 0.4 %; Eosinophils # (auto) 0.12 K/uL (0-0.50); Eosinophils % (auto) 2.1 %; Hematocrit (blood only) 23.9 % (34.1-44.9); Hemoglobin 7.3 g/dl (12.0-16.0); Immature Granulocytes # (auto) 0.04 K/uL (0.00-0.02); Immature Granulocytes % (auto) 0.7 %; Lymphocytes # (auto) 1.26 K/uL (1.2-3.4); Lymphocytes % (auto) 22.2 %; Mean Corpuscular Hemoglobin 26.4 pg (25.0-34.0); Mean Corpuscular Hgb Conc 30.5 g/dL (32.0-36.0); Mean Corpuscular Volume 86.6 fL (80.0-100.0); Mean Platelet Volume 9.8 fL (9.4-12.3); Monocytes # (auto) 0.57 K/uL (0.24-0.82); Monocytes % (auto) 10.1 %; Neutrophils # (auto) 3.66 K/uL (1.4-6.5); Neutrophils % (auto) 64.5 %; Platelet Count 193 K/uL (130-400); RDW Coefficient of Variation 19.1 % (11.5-14.5); RDW Standard Deviation 57.9 fL (36.4-46.3); Red Blood Count 2.76 M/uL (3.93-5.22); White Blood Count 5.67 K/ul (4.8-10.8)
[2022-04-06 16:09] LABS: Alanine Aminotransferase 20 U/L (7-52); Albumin Globulin Ratio 1.3 (0.9-2); Albumin Level 3.3 gm/dl (3.4-5.0); Alkaline Phosphatase 62 U/L (34-104); Anion Gap 6 (3-11); Aspartate Aminotransferase 27 U/L (13-39); BUN Creatinine Ratio 25.2 (10-20); Bilirubin,Total 0.8 mg/dl (0.2-1.0); Blood Urea Nitrogen 40 mg/dl (6-23); Calcium 8.2 mg/dl (8.5-10.1); Carbon Dioxide 25 mmol/L (21-32); Chloride 106 mmol/L (98-107); Est GFR (African American) 33.3 ml/min; Est GFR (Non-African American) 28.7 ml/min; Globulin 2.5 gm/dl (2.5-4.0); Glucose 174 mg/dl (70-99(Fasting)); INR 2.5 (0.9-1.1); Partial Thromboplastin Ratio 1.1; Partial Thromboplastin Time 30.2 Seconds (21.0-31.0); Potassium 4.6 mmol/L (3.5-5.1); Prothrombin Time 25.1 Seconds (9.0-12.0); Sodium 137 mmol/L (136-145); Total Protein 5.8 gm/dl (6.0-8.3)
[2022-04-06 16:16] LABS: Troponin I High Sensitivity 4.5 pg/ml (0-14)
[2022-04-06] MEDS ORDERED: SODIUM CHLORIDE 0.9% 250 ML IV PRN ×2 (16:21→20:36)
[2022-04-06 16:24] LABS: RBC Morphology Unremarkable
--- NOTE | 2022-04-06 18:50 | History & Physical Report ---
Date of Service April 06, 2022 Assessment & Plan (1) Acute on chronic anemia: Plan: Admit to [facility] Patient presenting from [facility] for evaluation of anemia History of chronic anemia on iron replacement and Procrit injections. Baseline hemoglobin ~ 9.0. Today, Hgb 7.3, down from 8.1 on 04/03 Was seen in ED on 04/03 for supratherapeutic INR and received vitamin K 2.5 mg PO No signs of bleeding at this time Patient follows closely with anemia clinic as an outpatient Transfuse 1 unit PRBC, hold additional transfusion pending a.m. labs (2) Paroxysmal A-fib: Plan: Rhythm controlled on amiodarone, rate controlled on metoprolol On Coumadin, INR 2.5 --recent management as above; likely resume Coumadin tomorrow (3) Recurrent UTI: Plan: On chronic Macrobid therapy Recently treated for yeast UTI with fluconazole (which likely contributed to supratherapeutic INR) (4) CKD (chronic kidney disease) stage 3, GFR 30-59 ml/min: Plan: Baseline creatinine mid 1s Creatinine 1.5 today Monitor renal functions (5) T2DM (type 2 diabetes mellitus): Plan: Hgb A1c 5.9 10/2021 Hold oral agents and utilize NovoLog per protocol while hospitalized (6) Hypothyroidism: Plan: Continue levothyroxine (7) DVT prophylaxis: Plan: SCDs when INR < 2.0 History of Present Illness Chief Complaint: Referred for low blood count Primary Care Provider: [facility] [place] 87-year-old female with PMH DM type II, CKD stage III, chronic anemia on iron replacement and Procrit injections, hypothyroidism, HLD, paroxysmal atrial fibrillation on amiodarone and Coumadin, HTN, and other problems listed below who presents to the ED from [facility] for evaluation of anemia. Patient seen in the ED on 04/03 after outpatient INR was found to be 7.9. Patient denies any signs of bleeding. Patient received p.o. vitamin K in the ED on 04/03 and was instructed to hold Coumadin. Repeat labs today showed Hgb 7.1, INR 2.5. Patient's baseline hemoglobin is ~ 9.0. Due to acute drop, patient was referred back to the ED for further evaluation. Patient continues to deny signs of bleeding. Denies bright red bleeding per rectum or dark tarry stools. Stools are somewhat dark at baseline due to iron supplementation. Patient denies abdominal pain, nausea, vomiting. No chest pain or shortness of breath. Denies lightheadedness, dizziness, diaphoresis, syncopal events. Has chronic fatigue and weakness which is unchanged from baseline. Was treated for a yeast UTI a couple of weeks ago with fluconazole. Denies any current urinary symptoms. No fevers or chills. In the ED, labs show Hgb 7.3. Patient is hemodynamically stable. She has been typed and crossed for blood transfusion. Allergies Allergy/AdvReac Type Severity Reaction Status Date / Time sulfamethoxazole Allergy Intermediate Rash Verified 04/06/22 17:17 tetanus toxoid, adsorbed Allergy Intermediate HIVES Verified 04/06/22 17:17 tetracycline Allergy Intermediate hives Verified 04/06/22 17:17 trimethoprim Allergy Intermediate Rash Verified 04/06/22 17:17 rosuvastatin AdvReac Intermediate Muscle Verified 04/06/22 17:17 stiffness Home Medications Medication Instructions Recorded Confirmed Type aspirin 81 mg tablet,delayed 81 mg PO 3XWK 10/31/18 04/06/22 History release (Orquidea Low Dose Aspirin) fluticasone propionate 50 2 spray intranasal HS PRN Nasal 10/31/18 04/06/22 History mcg/actuation nasal Congestion spray,suspension (Flonase Allergy Relief) levothyroxine 100 mcg tablet 100 mcg PO DAILYBB 10/31/18 04/06/22 History warfarin 2 mg tablet See Rx Instructions .Route .COMPLEX 04/03/19 04/06/22 History tamsulosin 0.4 mg capsule (Flomax) 0.4 mg PO HS #90 caps 07/11/19 04/06/22 Rx docusate sodium 100 mg capsule 100 mg PO HS 06/25/20 04/06/22 History (Col-Rite) glipizide 5 mg tablet 10 mg PO QAM 06/25/20 04/06/22 History rosuvastatin 10 mg tablet 10 mg PO HS 06/25/20 04/06/22 History polyethylene glycol 3350 17 gram 17 g PO DAILY PRN constipation #30 09/05/20 04/06/22 Rx oral powder packet (Miralax) ea cholecalciferol (vitamin D3) 25 50 mcg PO DAILY 11/09/20 04/06/22 History mcg (1,000 unit) tablet (Vitamin D3) sitagliptin 25 mg tablet (Januvia) 25 mg PO DAILY 11/09/20 04/06/22 History vit C 250 mg-vit E 90 mg-zinc 40 1 tab PO BID 11/09/20 04/06/22 History mg-copper 1 cd-dooyxu-auaiti capsule (PreserVision AREDS-2) warfarin 1 mg tablet See Rx Instructions .Route .COMPLEX 11/09/20 04/06/22 History metoprolol tartrate 25 mg tablet 12.5 mg PO BID #60 tabs 11/18/20 04/06/22 Rx estradiol 1 g vaginal QPM 12/13/20 04/06/22 History Saccharomyces boulardii 250 mg 250 mg PO DAILY 03/15/22 04/06/22 History capsule acetaminophen 500 mg tablet 500 mg PO Q8H PRN FEVER 03/15/22 04/06/22 History (Tylenol Extra Strength) >100.5/MODERATE PAIN amiodarone 200 mg tablet 200 mg PO QAM 03/15/22 04/06/22 History amoxicillin 500 mg capsule 2,000 mg PO DIRECTED PRN PRIOR 03/15/22 04/06/22 History TO DENTAL APPT. betamethasone valerate 0.12 % 1 applic topical HS 03/15/22 04/06/22 History topical foam diclofenac sodium 1 % topical gel 2 g topical Q12H PRN Pain 03/15/22 04/06/22 History docusate sodium 100 mg capsule 100 mg PO Q24H PRN DAY 2 IF NO BM. 03/15/22 04/06/22 History (Colace) ferrous sulfate 325 mg (65 mg 325 mg PO DAILY 03/15/22 04/06/22 History iron) tablet guaifenesin 600 mg tablet, 600 mg PO Q12H PRN Congestion 03/15/22 04/06/22 History extended release 12 hr hydroxyzine HCl 10 mg tablet 10 mg PO Q6H PRN Anxiety 03/15/22 04/06/22 History ketoconazole 2 % shampoo 1 ea topical 3XWK 03/15/22 04/06/22 History loperamide 2 mg capsule 2 mg PO Q8H PRN Diarrhea 03/15/22 04/06/22 History melatonin 3 mg tablet 3 mg PO HS 03/15/22 04/06/22 History nitrofurantoin 100 mg PO HS 03/15/22 04/06/22 History monohydrate/macrocrystals 100 mg capsule (Macrobid) Past Med/Surg History Medical History CKD (chronic kidney disease) stage 3, GFR 30-59 ml/min Closed left hip fracture s/p repair Gram-negative bacteremia HLD (hyperlipidemia) HTN (hypertension) Hypothyroidism Left knee DJD Paroxysmal A-fib Recurrent UTI Sepsis T2DM (type 2 diabetes mellitus) Surgical History History of breast biopsy History of cholecystectomy History of hysterectomy Family History Mother Breast cancer Hypertension Father , at 92 No problems noted. Social History Smoking Status: Never smoker Second Hand Exposure: No; Hx Alcohol Use: No Hx Substance Use: No Preferred Language: Slovak Communication Ability: Effective Terminal Manager Required: No Beliefs That Will Affect Care: None marital status: / Current Living Situation: Assisted Current Living Situation Comment: [facility] How many Children do You have: 1 other: ambulates with cane Feels Safe at Home: Yes Assistive Devices: None Review of Systems Review of Systems: ROS per HPI, all other systems reviewed and negative Physical Exam Constitutional: WD/WN, vitals as above Eyes: PERRL, conjunctivae normal, anicteric sclerae ENMT: external ear and nose normal, oropharynx normal Respiratory: normal respiratory effort, lungs clear to auscultation Cardiovascular: Rate/Rhythm: regular rate and regular rhythm Vessels: no rmal peripheral pulses Extremities: no edema Gastrointestinal (Abdomen): normal bowel sounds, soft, nontender, no hepatosplenomegaly Musculoskeletal: no cyanosis or clubbing, extremities motor strength 5/5 Skin: no rashes, warm and dry Neurologic: PERRL, EOMI, accommodation nl, no face palsy, no dysarthria Psychiatric: A+Ox3, euthymic affect Results & Data Results & Data ([facility]) Vital Signs (Past 12 Hours) Vital Signs Temp Pulse Pulse Resp BP BP Pulse Ox 04/06/22 16:00 04/06/22 16:00 70 18 102/47 L 95 04/06/22 15:00 04/06/22 14:26 36.6 C 68 18 99/46 L 97 O2 Del Method 04/06/22 16:00 Room Air 04/06/22 16:00 Room Air 04/06/22 15:00 Room Air 04/06/22 14:26 Room Air Laboratory Results Short CBC 04/06/22 Range/Units 15:41 WBC 5.67 (4.8-10.8) K/ul Hgb 7.3 L (12.0-16.0) g/dl Hct 23.9 L (34.1-44.9) % Plt Count 193 (130-400) K/uL BMP 04/06/22 15:41 Sodium 137 Potassium 4.6 Chloride 106 Carbon Dioxide 25 BUN 40 H Creatinine 1.59 H Glucose 174 H Calcium 8.2 L Liver Function 04/06/22 Range/Units 15:41 Total Bilirubin 0.8 (0.2-1.0) mg/dl AST 27 (13-39) U/L ALT 20 (7-52) U/L Alkaline Phosphatase 62 (34-104) U/L Albumin 3.3 L (3.4-5.0) gm/dl Code Status & VTE Plan Code Status Patient is a full code as per my discussion with her. VTE Prophylaxis Plan VTE Prophylaxis will be ordered: No Supervising Physician Co-Signing Physician Notes Patient was seen and examined independently at bedside. Chart reviewed. Case discussed with Chelle LÓPEZ and agree with the documentation above in regards to HPI, physical exam, assessment and plan. In summary, this is a 87 year old female with h/o PAF on coumadin, CKD 3/4 who was sent to the ED for low hemoglobin. Patient was recently in ED 04/03 for supratherapeutic INR 9.3 without bleeding, given vit K and discharged from ED. She had repeat labs today which showed drop in Hb and sent to ED. She denies any bleeding whatsoever. Denies any chest pain, or shortness of breath. Gets procrit [id number] for her CKD. Follows with anemia clinic and on oral iron. Recent iron panel reviewed. Labs show Hb 7.3 down from 8.1 on 7/15, INR 2.5.On exam, afebrile, hemodynamically stable, AAO, chest clear, heart sounds normal, abd benign, no edema. Agree with 1 U PRBC transfusion, recheck H&H in am and transfuse further as needed. Doubt ongoing bleeding but agree with FOBT- if positive consult GI. She would benefit from iv iron as her iron saturation <20% and on procrit but defer to her anemia clinic or sheet rock taper helper. Rest as per the note above. 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
[2022-04-06] MEDS ORDERED: GLUCAGON FOR INJ 1 MG VIAL SQ PRN (20:36)
[2022-04-06] MEDS ORDERED: POLYETHYLENE (MIRALAX) 17 GM PACK PO PRN (20:36)
[2022-04-06] MEDS ORDERED: GLUCOSE 40% GEL 15 GM TUBE PO PRN (20:36)
[2022-04-06] MEDS ORDERED: GLUCOSE 10 TAB/TUBE PO PRN (20:36)
[2022-04-06] MEDS ORDERED: ACETAMINOPHEN 325 MG TAB PO PRN (20:36)
[2022-04-06] MEDS ORDERED: DEXTROSE 50% 50 ML SYRINGE IV PRN (20:36)
[2022-04-06] MEDS ORDERED: CARBOHYDRATES FOR HYPOGLYCEMIA PO PRN (20:36)
[2022-04-06] MEDS ORDERED: NITROFURANTOIN MONOHYDRATE 100 MG CAP PO SCH (21:00)
--- NOTE | 2022-04-06 21:06 | Emergency Department Note ---
Impression & Plan Symptomatic anemia ED Provider Note INFORMANT: Patient ED PROVIDER(S): Rome Cain MD CHIEF COMPLAINT: Abnormal labs PLAN: Disposition: Admitted Condition: Good Outpatient prescription management: none Referral: None MEDICAL DECISION MAKING: Patient presented with complaints of abnormal lab, low hemoglobin. Blood work was obtained and she was found to have a significantly low hemoglobin. This has worsened since prior. She has dropped down from 8 now to 7. Patient's INR is still mildly elevated despite being on hold. It was 2.5. ECG not show any acute findings. I did consent her for packed red blood cell transfusion. Patient and family were in agreement. I did order 2 units of packed red blood cells. [facility] The case was discussed and diagnostics were reviewed. Patient was evaluated in the ER for further management. Triage Nursing notes reviewed and agree them. Vital Signs: reviewed and remarkable for no significant abnormalities Differential diagnosis: Infection, dehydration, metabolic abnormality, hypo/hyperglycemia, electrolyte disturbance, anemia, hypoxia, cardiac sources, intracerebral event, toxicologic, neurologic, as well as other pathologies. Diagnostics interpreted by me: ECG: Twelve-lead ECG reveals an atrial fibrillation at [address] elevation or depression. Left axis deviation and incomplete right bundle branch block present. Cardiac Monitoring: Cardiac monitoring ordered by me: The patient was placed on continuous cardiac monitoring and observed. It revealed fibrillation at 69 bpm. Imaging studies: Deferred HPI: The patient is a 87year old female who presents to the Emergency Room with complaints of abnormal labs. Patient was in the emergency department and found to have an elevated INR last week. Her Coumadin was on hold. She had repeat laboratory testing done today and was found to have a worsening hemoglobin. The patient has a history of anemia. She has had a transfusion about 1.5 years ago. She is seen by hematology. She also receives Procrit shots and iron supplementation. The patient also notes the following associated symptoms, generalized weakness and fatigue. Current pain is rated as 0/10. Patient was referred to the ER for further evaluation. Pt denies LOC, headache, fevers, chills, diaphoresis, visual changes, neck pain, chest pain, breathing difficulties, nausea, vomiting, abdominal pain, back pain, melena, hematochezia, urinary symptoms, numbness, lymphadenopathy, rash, or other complaints. ROS: See above HPI for pertinent positives & negatives. A total of 10 systems reviewed and were otherwise negative. PAST MEDICAL HISTORY:See Below , anemia, paroxysmal A. fib PAST SURGICAL HISTORY:See Below, FAMILY HISTORY:See Below SOCIAL HISTORY:See Below, retired HOME MEDICATIONS:See Below ALLERGIES:See Below VITALS:See Below PHYSICAL EXAMINATION: GENERAL: Awake, alert, tired-appearing, in no distress HENT: Normocephalic, atraumatic. Oropharynx unremarkable. EYES: Pale conjunctiva. Sclera non-icteric. NECK: Inspection normal. Non-tender. Supple. No nuchal rigidity. FROM. No juliette s. RESPIRATORY: Clear to auscultation. No wheezes. No rales. Normal respiratory effort. CARDIAC: Normal rate. Irregular rhythm. No murmurs. No rubs. Extremities warm and well perfused. Pulses equal. No JVD. GI: Soft, non-distended. No tenderness to palpation. No rebound or guarding. No masses. RECTAL: Deferred. MUSCULOSKELETAL: Atraumatic. Chest examination reveals no tenderness. The back is symmetrical on inspection without obvious abnormality. There is no CVA tenderness to palpation. No joint edema. LOWER EXTREMITIES: Calves are equal size bilaterally and non-tender. No edema. No discoloration. NEURO: Normal sensorium. No sensory or motor deficits noted. SKIN: No rash or jaundice noted. Rome Cain MD Past Med/Surg History Medical History CKD (chronic kidney disease) stage 3, GFR 30-59 ml/min Closed left hip fracture s/p repair Gram-negative bacteremia HLD (hyperlipidemia) HTN (hypertension) Hypothyroidism Left knee DJD Paroxysmal A-fib Recurrent UTI Sepsis T2DM (type 2 diabetes mellitus) Surgical History History of breast biopsy History of cholecystectomy History of hysterectomy Family History Mother Breast cancer Hypertension Father , at 92 No problems noted. Social History Smoking Status: Never smoker Second Hand Exposure: No; Hx Alcohol Use: No Hx Substance Use: No Preferred Language: Slovenian Communication Ability: Effective Box Office Clerk Required: No Beliefs That Will Affect Care: None marital status: / Current Living Situation: Personal Care Facility Current Living Situation Comment: Sarah How many Children do You have: 1 other: ambulates with cane Feels Safe at Home: Yes Safety Concerns: Feels Safe At This Time Assistive Devices: Wheelchair Allergies Allergies Allergy/AdvReac Type Severity Reaction Status Date / Time sulfamethoxazole Allergy Intermediate Rash Verified 04/06/22 17:17 tetanus toxoid, adsorbed Allergy Intermediate HIVES Verified 04/06/22 17:17 tetracycline Allergy Intermediate hives Verified 04/06/22 17:17 trimethoprim Allergy Intermediate Rash Verified 04/06/22 17:17 rosuvastatin AdvReac Intermediate Muscle Verified 04/06/22 17:17 stiffness Home Meds Home Medications Medication Instructions Recorded Confirmed aspirin 81 mg tablet,delayed 81 mg PO 3XWK 10/31/18 04/06/22 release (Orquidea Low Dose Aspirin) fluticasone propionate 50 2 spray intranasal HS PRN Nasal 10/31/18 04/06/22 mcg/actuation nasal Congestion spray,suspension (Flonase Allergy Relief) levothyroxine 100 mcg tablet 100 mcg PO DAILYBB 10/31/18 04/06/22 warfarin 2 mg tablet See Rx Instructions .Route .COMPLEX 04/03/19 04/06/22 docusate sodium 100 mg capsule 100 mg PO HS 06/25/20 04/06/22 (Col-Rite) glipizide 5 mg tablet 10 mg PO QAM 06/25/20 04/06/22 rosuvastatin 10 mg tablet 10 mg PO HS 06/25/20 04/06/22 cholecalciferol (vitamin D3) 25 50 mcg PO DAILY 11/09/20 04/06/22 mcg (1,000 unit) tablet (Vitamin D3) sitagliptin 25 mg tablet (Januvia) 25 mg PO DAILY 11/09/20 04/06/22 vit C 250 mg-vit E 90 mg-zinc 40 1 tab PO BID 11/09/20 04/06/22 mg-copper 1 [id number] capsule (PreserVision AREDS-2) warfarin 1 mg tablet See Rx Instructions .Route .COMPLEX 11/09/20 04/06/22 estradiol 1 g vaginal QPM 12/13/20 04/06/22 Saccharomyces boulardii 250 mg 250 mg PO DAILY 03/15/22 04/06/22 capsule acetaminophen 500 mg tablet 500 mg PO Q8H PRN FEVER 03/15/22 04/06/22 (Tylenol Extra Strength) >100.5/MODERATE PAIN amiodarone 200 mg tablet 200 mg PO QAM 03/15/22 04/06/22 amoxicillin 500 mg capsule 2,000 mg PO DIRECTED PRN PRIOR 03/15/22 04/06/22 TO DENTAL APPT. betamethasone valerate 0.12 % 1 applic topical HS 03/15/22 04/06/22 topical foam diclofenac sodium 1 % topical gel 2 g topical Q12H PRN Pain 03/15/22 04/06/22 docusate sodium 100 mg capsule 100 mg PO Q24H PRN DAY 2 IF NO BM. 03/15/22 04/06/22 (Colace) ferrous sulfate 325 mg (65 mg 325 mg PO DAILY 03/15/22 04/06/22 iron) tablet guaifenesin 600 mg tablet, 600 mg PO Q12H PRN Congestion 03/15/22 04/06/22 extended release 12 hr hydroxyzine HCl 10 mg tablet 10 mg PO Q6H PRN Anxiety 03/15/22 04/06/22 ketoconazole 2 % shampoo 1 ea topical 3XWK 03/15/22 04/06/22 loperamide 2 mg capsule 2 mg PO Q8H PRN Diarrhea 03/15/22 04/06/22 melatonin 3 mg tablet 3 mg PO HS 03/15/22 04/06/22 nitrofurantoin 100 mg PO HS 03/15/22 04/06/22 monohydrate/macrocrystals 100 mg capsule (Macrobid) Previous Rx's Medication Instructions Recorded tamsulosin 0.4 mg capsule (Flomax) 0.4 mg PO HS #90 caps 07/11/19 polyethylene glycol 3350 17 gram 17 g PO DAILY PRN constipation #30 09/05/20 oral powder packet (Miralax) ea metoprolol tartrate 25 mg tablet 12.5 mg PO BID #60 tabs 11/18/20 Results & Data (ED) Vital Signs Vital Signs - 24 hr 04/06/22 14:26 04/06/22 15:00 04/06/22 16:00 Temperature 36.6 C Temperature Source Temporal Artery Scan Pulse Rate 68 Pulse Rate [Right Finger] 70 Pulse Rhythm [Right Finger] Regular Pulse Strength [Right Finger] Normal Respiratory Rate 18 18 Respiratory Effort / Characteristics Non-Labored Spontaneous Non-Labored Respiratory Depth Normal Normal Respiratory Pattern Regular Regular Blood Pressure 99/46 L Blood Pressure [Right Arm] 102/47 L Blood Pressure Mean 63 Blood Pressure Mean [Right Arm] 65 Blood Pressure Position Sitting Blood Pressure Position [Right Arm] Lying Pulse Oximetry 97 95 Oxygen Delivery Method Room Air Room Air Room Air Sepsis Recent Fever Within 48 Hours No Sepsis New/Unexplained Change in Mental Status N/A Sepsis Action Taken by Nursing No Action Required 04/06/22 16:00 Temperature Temperature Source Pulse Rate Pulse Rate [Right Finger] Pulse Rhythm [Right Finger] Pulse Strength [Right Finger] Respiratory Rate Respiratory Effort / Characteristics Respiratory Depth Respiratory Pattern Blood Pressure Blood Pressure [Right Arm] Blood Pressure Mean Blood Pressure Mean [Right Arm] Blood Pressure Position Blood Pressure Position [Right Arm] Pulse Oximetry Oxygen Delivery Method Room Air Sepsis Recent Fever Within 48 Hours Sepsis New/Unexplained Change in Mental Status Sepsis Action Taken by Nursing Laboratory Data Result diagrams: 04/06/22 15:41 04/06/22 15:41 Lab Results 04/06/22 04/06/22 04/06/22 Range/Units 15:41 15:41 15:41 WBC 5.67 (4.8-10.8) K/ul RBC 2.76 L (3.93-5.22) M/uL Hgb 7.3 L (12.0-16.0) g/dl Hct 23.9 L (34.1-44.9) % MCV 86.6 (80.0-100.0) fL MCH 26.4 (25.0-34.0) pg MCHC 30.5 L (32.0-36.0) g/dL RDW Std Deviation 57.9 H (36.4-46.3) fL RDW Coeff of Hope 19.1 H (11.5-14.5) % Plt Count 193 (130-400) K/uL MPV 9.8 (9.4-12.3) fL Immature Gran % (Auto) 0.7 % Neut % (Auto) 64.5 % Lymph % (Auto) 22.2 % Hendricks % (Auto) 10.1 % Eos % (Auto) 2.1 % Baso % (Auto) 0.4 % Neut # (Auto) 3.66 (1.4-6.5) K/uL Lymph # (Auto) 1.26 (1.2-3.4) K/uL Hendricks # (Auto) 0.57 (0.24-0.82) K/uL Eos # (Auto) 0.12 (0-0.50) K/uL Baso # (Auto) 0.02 (0-0.2) K/uL Immature Gran # (Auto) 0.04 H (0.00-0.02) K/uL RBC Morphology Unremarkable PT 25.1 H (9.0-12.0) Seconds INR 2.5 H (0.9-1.1) APTT 30.2 (21.0-31.0) Seconds PTT Ratio 1.1 Sodium (136-145) mmol/L Potassium (3.5-5.1) mmol/L Chloride (98-107) mmol/L Carbon Dioxide (21-32) mmol/L Anion Gap (3-11) BUN (6-23) mg/dl Creatinine (0.6-1.2) mg/dl Est Cr Clr Drug Dosing Est GFR ( Amer) ml/min Est GFR (Non-Af Amer) ml/min BUN/Creatinine Ratio (10-20) Glucose (70-99(Fasting)) mg/dl Calcium (8.5-10.1) mg/dl Total Bilirubin (0.2-1.0) mg/dl AST (13-39) U/L ALT (7-52) U/L Alkaline Phosphatase (34-104) U/L Troponin I High Sens (0-14) pg/ml Total Protein (6.0-8.3) gm/dl Albumin (3.4-5.0) gm/dl Globulin (2.5-4.0) gm/dl Albumin/Globulin Ratio (0.9-2) SARS-CoV-2, RNA, NAAT (NEGATIVE) Blood Type A Positive Antibody Screen POSITIVE A Crossmatch See Detail 04/06/22 04/06/22 Range/Units 15:41 16:40 WBC (4.8-10.8) K/ul RBC (3.93-5.22) M/uL Hgb (12.0-16.0) g/dl Hct (34.1-44.9) % MCV (80.0-100.0) fL MCH (25.0-34.0) pg MCHC (32.0-36.0) g/dL RDW Std Deviation (36.4-46.3) fL RDW Coeff of Hope (11.5-14.5) % Plt Count (130-400) K/uL MPV (9.4-12.3) fL Immature Gran % (Auto) % Neut % (Auto) % Lymph % (Auto) % Hendricks % (Auto) % Eos % (Auto) % Baso % (Auto) % Neut # (Auto) (1.4-6.5) K/uL Lymph # (Auto) (1.2-3.4) K/uL Hendricks # (Auto) (0.24-0.82) K/uL Eos # (Auto) (0-0.50) K/uL Baso # (Auto) (0-0.2) K/uL Immature Gran # (Auto) (0.00-0.02) K/uL RBC Morphology PT (9.0-12.0) Seconds INR (0.9-1.1) APTT (21.0-31.0) Seconds PTT Ratio Sodium 137 (136-145) mmol/L Potassium 4.6 (3.5-5.1) mmol/L Chloride 106 (98-107) mmol/L Carbon Dioxide 25 (21-32) mmol/L Anion Gap 6 (3-11) BUN 40 H (6-23) mg/dl Creatinine 1.59 H (0.6-1.2) mg/dl Est Cr Clr Drug Dosing Not Reportable Est GFR ( Amer) 33.3 ml/min Est GFR (Non-Af Amer) 28.7 ml/min BUN/Creatinine Ratio 25.2 H (10-20) Glucose 174 H (70-99(Fasting)) mg/dl Calcium 8.2 L (8.5-10.1) mg/dl Total Bilirubin 0.8 (0.2-1.0) mg/dl AST 27 (13-39) U/L ALT 20 (7-52) U/L Alkaline Phosphatase 62 (34-104) U/L Troponin I High Sens 4.5 (0-14) pg/ml Total Protein 5.8 L (6.0-8.3) gm/dl Albumin 3.3 L (3.4-5.0) gm/dl Globulin 2.5 (2.5-4.0) gm/dl Albumin/Globulin Ratio 1.3 (0.9-2) SARS-CoV-2, RNA, NAAT NEGATIVE (NEGATIVE) Blood Type Antibody Screen Crossmatch Administered Medications Sodium Chloride (Nss 1000ml) 1,000 mls @ 75 mls/hr IV .[id number] STA Stop: 04/07/22 04:41 Last Admin: 04/06/22 16:12 Dose: 125 mls/hr Documented By: AP Discharge Plan Visit Data Chief Complaint: Abnormal Labs/Diagnostic Testing Stated Complaint: LOW HEMOGLOBEN READING ED Provider: Rome Cain Discharge Problem: Symptomatic anemia Patient Disposition: Admitted As Inpatient Discharge Instructions Interventions: ED Discharge Assessment Last Done: 04/06/22 20:09
[2022-04-06] MEDS: INSULIN ASPART PER UNIT SC SCH (21:23)
[2022-04-06] MEDS: METOPROLOL TARTRATE 25 MG TAB PO SCH (21:26)
[2022-04-06] MEDS: TAMSULOSIN HCL 0.4 MG CAP PO SCH (21:26)
[2022-04-06] MEDS: MELATONIN 3 MG TAB PO SCH (22:10)
[2022-04-06] MEDS: ROSUVASTATIN CALCIUM 10 MG TAB PO SCH (22:10)
[2022-04-07] MEDS: LEVOTHYROXINE SODIUM 100 MCG TABLET PO SCH (04:33)
[2022-04-07] MEDS: AMIODARONE 200 MG TAB PO SCH (07:40)
[2022-04-07] MEDS: FERROUS SULFATE 325 MG TAB PO SCH (07:41)
[2022-04-07] MEDS: METOPROLOL TARTRATE 25 MG TAB PO SCH ×2 (07:41→20:29)
[2022-04-07 08:56] LABS: Hemoglobin 7.3 g/dl (12.0-16.0); Mean Corpuscular Hemoglobin 26.5 pg (25.0-34.0); Mean Corpuscular Hgb Conc 30.4 g/dL (32.0-36.0); Mean Corpuscular Volume 87.3 fL (80.0-100.0); Mean Platelet Volume 9.7 fL (9.4-12.3); Platelet Count 222 K/uL (130-400); RDW Coefficient of Variation 19.3 % (11.5-14.5); RDW Standard Deviation 58.4 fL (36.4-46.3); Red Blood Count 2.75 M/uL (3.93-5.22); White Blood Count 6.77 K/ul (4.8-10.8)
[2022-04-07 09:06] LABS: INR 2.3 (0.9-1.1); Prothrombin Time 23.4 Seconds (9.0-12.0)
[2022-04-07 09:12] LABS: Estimated Average Glucose 126 mg/dl
[2022-04-07 09:21] LABS: BUN Creatinine Ratio 25.9 (10-20); Calcium 8.3 mg/dl (8.5-10.1); Creatinine Clr Calc Pharmacy 22.1 ml/min; Est GFR (African American) 39.1 ml/min; Est GFR (Non-African American) 33.8 ml/min; Potassium 4.5 mmol/L (3.5-5.1)
[2022-04-07] MEDS: INSULIN ASPART PER UNIT SC SCH ×4 (09:24→21:22)
--- NOTE | 2022-04-07 17:04 | Electrocardiogram Report ---
Test Reason : Blood Pressure : / mmHG Vent. Rate : 068 BPM Atrial Rate : 267 BPM P-R Int : 200 ms QRS Dur : 106 ms QT Int : 446 ms P-R-T Axes : 074 -45 040 degrees QTc Int : 474 ms Sinus rhythm Left axis deviation Incomplete right bundle branch block Abnormal ECG When compared with ECG of 15-MAR-2022 00:31, Current undetermined rhythm precludes rhythm comparison, needs review Confirmed by Mich Rico ([id number]) on 04/07/2022 5:03:34 PM Referred By: ED Confirmed By:Mich Rico
--- NOTE | 2022-04-07 20:02 | Hospitalist Progress Note ---
Date of Service April 07, 2022 Assessment & Plan (1) Acute on chronic anemia: Plan: Patient presenting from [facility] for evaluation of anemia History of chronic anemia on iron replacement and Procrit injections. Baseline hemoglobin ~ 9.0. Today, Hgb 7.3, down from 8.1 on 04/03 Was seen in ED on 04/03 for supratherapeutic INR and received vitamin K 2.5 mg PO No signs of bleeding at this time It is very possible that her supratherapeutic INR caused some oozing from somewhere and this is now stabilized. She is not reporting any symptoms of anemia but is bedbound. Patient follows closely with anemia clinic as an outpatient Transfuse 1 unit PRBC, hold additional transfusion pending a.m. labs Initial transfusion has to come from [facility] and should be delivered tonight (04/07) (2) Paroxysmal A-fib: Plan: Sinus rhythm on admission, cont holding warfarin for now until H/H stable. Cont amio and metoprolol--monitor for interaction with amio and antibiotics that the patient also takes chronically. (3) Recurrent UTI: Plan: On chronic Macrobid therapy, however, renal function is really too low for this. Hold Macrobid now and reassess with PCP on other options for this if renal function doesn't improve. Recently treated for yeast UTI with fluconazole (which likely contributed to supratherapeutic INR) (4) CKD (chronic kidney disease) stage 3, GFR 30-59 ml/min: Plan: Chronic, stable and around her baseline. Continue renally dosing medicines and avoiding nephrotoxic substances. (5) T2DM (type 2 diabetes mellitus): Plan: Hgb A1c 5.9 10/2021 Hold oral agents and utilize NovoLog for carb coverage and correction factor while hospitalized (6) Hypothyroidism: Plan: Continue levothyroxine (7) DVT prophylaxis: Plan: Therapeutic INR/SCDs Full Code [facility] once H/H has stabilized. DO Reese Garner Hospitalist Admission and Anticipated Discharge Date Admission Date: April 06, 2022 Results & Data Results & Data ([facility]) Vital Signs (Past 12 Hours) Vital Signs Temp Pulse Resp BP Pulse Ox O2 Del Method 04/07/22 16:06 37.0 C 63 16 103/52 L 94 Room Air 04/07/22 08:39 36.6 C 72 16 102/58 L 95 Room Air Laboratory Results Short CBC 04/07/22 Range/Units 08:35 WBC 6.77 (4.8-10.8) K/ul Hgb 7.3 L (12.0-16.0) g/dl Hct 24.0 L (34.1-44.9) % Plt Count 222 (130-400) K/uL BMP 04/07/22 08:35 Sodium 140 Potassium 4.5 Chloride 108 H Carbon Dioxide 26 BUN 36 H Creatinine 1.39 H Glucose 124 H Calcium 8.3 L Medications Administered Current Inpatient Medications Acetaminophen (Acetaminophen 325 Mg Tab) 650 mg PO Q4H PRN PRN Reason: pain/fever Stop: 05/06/22 20:35 Amiodarone HCl (Amiodarone 200 Mg Tab) 200 mg PO QAM [facility] Stop: 05/07/22 08:59 Last Admin: 04/07/22 07:40 Dose: 200 mg Aspirin (Aspirin 81 Mg Ectab) 81 mg PO MoWeFr@0900 [facility] Stop: 05/08/22 08:59 Dextrose (Dextrose 50% 50 Ml Syringe) 25 - 50 ml IV UD PRN; Protocol PRN Reason: Hypoglycemia Protocol Stop: 05/06/22 20:35 Ferrous Sulfate (Ferrous Sulfate 325 Mg Tab) 325 mg PO DAILY NO Stop: 05/07/22 08:59 Last Admin: 04/07/22 07:41 Dose: 325 mg Glucagon (Glucagon For Inj 1 Mg Vial) 1 mg SQ UD PRN; Protocol PRN Reason: Hypoglycemia Protocol Stop: 05/06/22 20:35 Glucose (Glucose 40% Gel 15 Gm Tube) 15 - 30 gm PO UD PRN; Protocol PRN Reason: Hypoglycemia Protocol Stop: 05/06/22 20:35 Glucose (Glucose 10 Tab/Tube) 4 - 8 tab PO UD PRN; Protocol PRN Reason: Hypoglycemia Treatment Stop: 05/06/22 20:35 Insulin Aspart (Insulin Aspart Per Unit) 0 units SC ACHS NO Stop: 05/06/22 20:59 Last Admin: 04/07/22 17:57 Dose: 1 units Levothyroxine Sodium (Levothyroxine Sodium 100 Mcg Tablet) 100 mcg PO DAILYBB [facility] Stop: 05/07/22 06:29 Last Admin: 04/07/22 04:33 Dose: 100 mcg Melatonin (Melatonin 3 Mg Tab) 3 mg PO HS [facility] Stop: 05/06/22 20:59 Last Admin: 04/06/22 22:10 Dose: 3 mg Metoprolol Tartrate (Metoprolol Tartrate 25 Mg Tab) 12.5 mg PO BID [facility] Stop: 05/06/22 20:59 Last Admin: 04/07/22 07:41 Dose: 12.5 mg Miscellaneous (Estradiol 0.01% Cream-Order Awaiting Action) 1 each N/A QS [facility] Stop: 05/07/22 00:00 Last Admin: 04/07/22 16:12 Dose: Not Given Miscellaneous (Carbohydrates For Hypoglycemia ) 15 - 30 gm PO UD PRN PRN Reason: Hypoglycemia Protocol Stop: 05/06/22 20:35 Nitrofurantoin Macrocrystals (Nitrofurantoin Monohydrate 100 Mg Cap) 100 mg PO HS [facility] Stop: 05/06/22 20:59 Last Admin: 04/06/22 23:44 Dose: 100 mg Polyethylene Glycol (Polyethylene (Miralax) 17 Gm Pack) 17 gm PO DAILY PRN PRN Reason: constipation Stop: 05/06/22 20:35 Rosuvastatin Calcium (Rosuvastatin Calcium 10 Mg Tab) 10 mg PO [facility] Stop: 05/06/22 21:29 Last Admin: 04/06/22 22:10 Dose: 10 mg Tamsulosin HCl (Tamsulosin Hcl 0.4 Mg Cap) 0.4 mg PO HS [facility] Stop: 05/06/22 20:59 Last Admin: 04/06/22 21:26 Dose: 0.4 mg (1) CKD (chronic kidney disease) stage 3, GFR 30-59 ml/min Chronic kidney disease stage 3 subtype: stage 3a (GFR 45-59) Qualified Code(s): N18.31 - Chronic kidney disease, stage 3a (2) T2DM (type 2 diabetes mellitus) Diabetes mellitus mcfp insulin use: without buttermaker use Diabetes mellitus complication status: with kidney complications Diabetes mellitus complication detail: with chronic kidney disease Chronic kidney disease stage: stage 3 (moderate) Qualified Code(s): E11.22 - Type 2 diabetes mellitus with diabetic chronic kidney disease; N18.3 - Chronic kidney disease, stage 3 (moderate) (3) Hypothyroidism Hypothyroidism type: unspecified Qualified Code(s): E03.9 - Hypothyroidism, unspecified
[2022-04-07] MEDS: ROSUVASTATIN CALCIUM 10 MG TAB PO SCH (20:26)
[2022-04-07] MEDS: TAMSULOSIN HCL 0.4 MG CAP PO SCH (20:26)
[2022-04-07] MEDS: MELATONIN 3 MG TAB PO SCH (22:17)
[2022-04-08] MEDS: LEVOTHYROXINE SODIUM 100 MCG TABLET PO SCH (06:41)
[2022-04-08 08:24] LABS: Hemoglobin 7.1 g/dl (12.0-16.0); Mean Corpuscular Hemoglobin 26.8 pg (25.0-34.0); Mean Corpuscular Hgb Conc 30.9 g/dL (32.0-36.0); Mean Corpuscular Volume 86.8 fL (80.0-100.0); Mean Platelet Volume 9.7 fL (9.4-12.3); Platelet Count 197 K/uL (130-400); RDW Coefficient of Variation 19.6 % (11.5-14.5); RDW Standard Deviation 58.5 fL (36.4-46.3); Red Blood Count 2.65 M/uL (3.93-5.22); White Blood Count 6.55 K/ul (4.8-10.8)
[2022-04-08 08:32] LABS: Prothrombin Time 20.3 Seconds (9.0-12.0)
[2022-04-08] MEDS: METOPROLOL TARTRATE 25 MG TAB PO SCH ×2 (08:44→20:41)
[2022-04-08] MEDS: AMIODARONE 200 MG TAB PO SCH (08:44)
[2022-04-08] MEDS: FERROUS SULFATE 325 MG TAB PO SCH (08:44)
[2022-04-08] MEDS: INSULIN ASPART PER UNIT SC SCH ×4 (08:49→20:40)
[2022-04-08] MEDS ORDERED: ASPIRIN 81 MG ECTAB PO SCH (09:00)
[2022-04-08 09:02] LABS: BUN Creatinine Ratio 24.6 (10-20); Calcium 8.2 mg/dl (8.5-10.1); Creatinine Clr Calc Pharmacy 21.7 ml/min; Est GFR (African American) 38.1 ml/min; Est GFR (Non-African American) 32.9 ml/min; Potassium 4.5 mmol/L (3.5-5.1)
--- NOTE | 2022-04-08 17:24 | Hospitalist Progress Note ---
Date of Service April 08, 2022 Assessment & Plan (1) Acute on chronic anemia: Plan: Patient presenting from [facility] for evaluation of anemia History of chronic anemia on iron replacement and Procrit injections. Baseline hemoglobin ~ 9.0. On admission, Hgb 7.3, down from 8.1 on 04/03 Was seen in ED on 04/03 for supratherapeutic INR and received vitamin K 2.5 mg PO No signs of bleeding at this time Likely in the setting of CKD - will need nephrology follow up and evaluation for IV iron vs EPO vs periodic transfusions She is not reporting any symptoms of anemia but is bedbound. Patient follows closely with anemia clinic as an outpatient - FOBT positive on admission - will repeat sample - will need GI and renal follow up as outpatient Transfuse 1 unit PRBC Initial transfusion has to come from [facility] and should be delivered tonight (04/08/2022 around 8pm) (2) Paroxysmal A-fib: Plan: Sinus rhythm on admission - will restart warfarin tonight - daily INR (3) Recurrent UTI: Plan: On chronic Macrobid therapy, however, renal function is really too low for this. Hold Macrobid now and reassess with PCP on other options for this if renal function doesn't improve. Recently treated for yeast UTI with fluconazole (which likely contributed to supratherapeutic INR) (4) CKD (chronic kidney disease) stage 3, GFR 30-59 ml/min: Plan: Chronic, stable and around her baseline. Continue renally dosing medicines and avoiding nephrotoxic substances. - will need nephrology follow up on discharge (5) T2DM (type 2 diabetes mellitus): Plan: Hgb A1c 5.9 10/2021 Hold oral agents and utilize NovoLog for carb coverage and correction factor while hospitalized (6) Hypothyroidism: Plan: Continue levothyroxine (7) DVT prophylaxis: Plan: Therapeutic INR/SCDs Full Code Dispo-back to [facility] once H/H has stabilized. Haroldo Monroe MD Hospital Medicine Admission and Anticipated Discharge Date Admission Date: April 06, 2022 Subjective 87-year-old female with PMH DM type II, CKD stage III, chronic anemia on iron replacement and Procrit injections, hypothyroidism, HLD, paroxysmal atrial fibrillation on amiodarone and Coumadin, HTN, and other problems listed below who presents to the ED from [facility] for evaluation of anemia. Patient was found to have hgb 7.3 on admission, which remained basically stable. Plan is to transfuse 1 unit PRBC, which is taking a long time due to increased antibodies and need for PRBCs to be acquired from elsewhere. She remained clinically stable without any hemodynamic instability, signs of active bleeding, or dramatic drop in hgb. She reports no symptoms this morning. She was sitting up in bed and eating. She denied chest pain, shortness of breath, light headedness, n/v, blurry vision, palpatations. Review of Systems Review of Systems: All systems reviewed & are unremarkable except as noted in Subjective Physical Exam Constitutional: WD/WN, vitals as above Eyes: PERRL, conjunctivae normal, anicteric sclerae ENMT: external ear and nose normal, oropharynx normal Respiratory: normal respiratory effort, lungs clear to auscultation Cardiovascular: Rate/Rhythm: regular rate and regular rhythm Vessels: normal peripheral pulses Extremities: no edema Gastrointestinal (Abdomen): normal bowel sounds, soft, nontender, no hepatosplenomegaly Musculoskeletal: no cyanosis or clubbing, extremities motor strength 5/5 Skin: no rashes, warm and dry Neurologic: PERRL, EOMI, accommodation nl, no face palsy, no dysarthria Psychiatric: A+Ox3, euthymic affect Results & Data Results & Data ([facility]) Vital Signs (Past 12 Hours) Vital Signs Temp Pulse Resp BP Pulse Ox O2 Del Method 04/08/22 15:42 36.6 C 72 16 117/62 97 Room Air 04/08/22 07:46 36.7 C 68 16 107/65 96 Room Air Laboratory Results Short CBC 04/08/22 Range/Units 08:07 WBC 6.55 (4.8-10.8) K/ul Hgb 7.1 L (12.0-16.0) g/dl Hct 23.0 L (34.1-44.9) % Plt Count 197 (130-400) K/uL BMP 04/08/22 08:07 Sodium 138 Potassium 4.5 Chloride 108 H Carbon Dioxide 25 BUN 35 H Creatinine 1.42 H Glucose 122 H Calcium 8.2 L Medications Administered Current Inpatient Medications Acetaminophen (Acetaminophen 325 Mg Tab) 650 mg PO Q4H PRN PRN Reason: pain/fever Stop: 05/06/22 20:35 Amiodarone HCl (Amiodarone 200 Mg Tab) 200 mg PO QAM [facility] Stop: 05/07/22 08:59 Last Admin: 04/08/22 08:44 Dose: 200 mg Aspirin (Aspirin 81 Mg Ectab) 81 mg PO MoWeFr@0900 NO Stop: 05/08/22 08:59 Last Admin: 04/08/22 08:44 Dose: 81 mg Dextrose (Dextrose 50% 50 Ml Syringe) 25 - 50 ml IV UD PRN; Protocol PRN Reason: Hypoglycemia Protocol Stop: 05/06/22 20:35 Ferrous Sulfate (Ferrous Sulfate 325 Mg Tab) 325 mg PO DAILY NO Stop: 05/07/22 08:59 Last Admin: 04/08/22 08:44 Dose: 325 mg Glucagon (Glucagon For Inj 1 Mg Vial) 1 mg SQ UD PRN; Protocol PRN Reason: Hypoglycemia Protocol Stop: 05/06/22 20:35 Glucose (Glucose 40% Gel 15 Gm Tube) 15 - 30 gm PO UD PRN; Protocol PRN Reason: Hypoglycemia Protocol Stop: 05/06/22 20:35 Glucose (Glucose 10 Tab/Tube) 4 - 8 tab PO UD PRN; Protocol PRN Reason: Hypoglycemia Treatment Stop: 05/06/22 20:35 Insulin Aspart (Insulin Aspart Per Unit) 0 units SC ACHS [facility] Stop: 05/06/22 20:59 Last Admin: 04/08/22 12:52 Dose: 1 units Levothyroxine Sodium (Levothyroxine Sodium 100 Mcg Tablet) 100 mcg PO DAILYBB NO Stop: 05/07/22 06:29 Last Admin: 04/08/22 06:41 Dose: 100 mcg Melatonin (Melatonin 3 Mg Tab) 3 mg PO HS NO Stop: 05/06/22 20:59 Last Admin: 04/07/22 22:17 Dose: 3 mg Metoprolol Tartrate (Metoprolol Tartrate 25 Mg Tab) 12.5 mg PO BID NO Stop: 05/06/22 20:59 Last Admin: 04/08/22 08:44 Dose: 12.5 mg Miscellaneous (Estradiol 0.01% Cream-Order Awaiting Action) 1 each N/A QS NO Stop: 05/07/22 00:00 Last Admin: 04/08/22 15:27 Dose: Not Given Miscellaneous (Carbohydrates For Hypoglycemia ) 15 - 30 gm PO UD PRN PRN Reason: Hypoglycemia Protocol Stop: 05/06/22 20:35 Nitrofurantoin Macrocrystals (Nitrofurantoin Monohydrate 100 Mg Cap) 100 mg PO HS [facility] Stop: 05/06/22 20:59 Last Admin: 04/06/22 23:44 Dose: 100 mg Polyethylene Glycol (Polyethylene (Miralax) 17 Gm Pack) 17 gm PO DAILY PRN PRN Reason: constipation Stop: 05/06/22 20:35 Rosuvastatin Calcium (Rosuvastatin Calcium 10 Mg Tab) 10 mg PO HS [facility] Stop: 05/06/22 21:29 Last Admin: 04/07/22 20:26 Dose: 10 mg Tamsulosin HCl (Tamsulosin Hcl 0.4 Mg Cap) 0.4 mg PO HS [facility] Stop: 05/06/22 20:59 Last Admin: 04/07/22 20:26 Dose: 0.4 mg (1) CKD (chronic kidney disease) stage 3, GFR 30-59 ml/min Chronic kidney disease stage 3 subtype: stage 3a (GFR 45-59) Qualified Code(s): N18.31 - Chronic kidney disease, stage 3a (2) T2DM (type 2 diabetes mellitus) Diabetes mellitus alf insulin use: without alf use Diabetes mellitus complication status: with kidney complications Diabetes mellitus complication detail: with chronic kidney disease Chronic kidney disease stage: stage 3 (moderate) Qualified Code(s): E11.22 - Type 2 diabetes mellitus with diabetic chronic kidney disease; N18.3 - Chronic kidney disease, stage 3 (moderate) (3) Hypothyroidism Hypothyroidism type: unspecified Qualified Code(s): E03.9 - Hypothyroidism, unspecified
[2022-04-08] MEDS: ROSUVASTATIN CALCIUM 10 MG TAB PO SCH (20:41)
[2022-04-08] MEDS: MELATONIN 3 MG TAB PO SCH (20:44)
[2022-04-08] MEDS: TAMSULOSIN HCL 0.4 MG CAP PO SCH (20:54)
[2022-04-09] MEDS: LEVOTHYROXINE SODIUM 100 MCG TABLET PO SCH (06:21)
[2022-04-09 09:44] LABS: Basophils # (auto) 0.03 K/uL (0-0.2); Basophils % (auto) 0.5 %; Eosinophils # (auto) 0.14 K/uL (0-0.50); Eosinophils % (auto) 2.1 %; Hematocrit (blood only) 27.8 % (34.1-44.9); Hemoglobin 8.8 g/dl (12.0-16.0); Immature Granulocytes # (auto) 0.05 K/uL (0.00-0.02); Immature Granulocytes % (auto) 0.8 %; Lymphocytes # (auto) 1.59 K/uL (1.2-3.4); Lymphocytes % (auto) 24.1 %; Mean Corpuscular Hemoglobin 27.2 pg (25.0-34.0); Mean Corpuscular Hgb Conc 31.7 g/dL (32.0-36.0); Mean Corpuscular Volume 85.8 fL (80.0-100.0); Mean Platelet Volume 9.8 fL (9.4-12.3); Monocytes # (auto) 0.53 K/uL (0.24-0.82); Neutrophils # (auto) 4.27 K/uL (1.4-6.5); Neutrophils % (auto) 64.5 %; Platelet Count 188 K/uL (130-400); RDW Coefficient of Variation 18.4 % (11.5-14.5); Red Blood Count 3.24 M/uL (3.93-5.22); White Blood Count 6.61 K/ul (4.8-10.8)
[2022-04-09 09:50] LABS: INR 1.8 (0.9-1.1); Prothrombin Time 18.2 Seconds (9.0-12.0)
[2022-04-09] MEDS: INSULIN ASPART PER UNIT SC SCH ×2 (10:13→12:42)
[2022-04-09] MEDS: METOPROLOL TARTRATE 25 MG TAB PO SCH (10:15)
[2022-04-09] MEDS: FERROUS SULFATE 325 MG TAB PO SCH (10:16)
[2022-04-09] MEDS: AMIODARONE 200 MG TAB PO SCH (10:16)
[2022-04-09 10:27] LABS: Albumin Globulin Ratio 1.4 (0.9-2); Albumin Level 3.2 gm/dl (3.4-5.0); BUN Creatinine Ratio 25.3 (10-20); Calcium 7.9 mg/dl (8.5-10.1); Creatinine Clr Calc Pharmacy 19.5 ml/min; Est GFR (African American) 33.5 ml/min; Est GFR (Non-African American) 28.9 ml/min; Globulin 2.3 gm/dl (2.5-4.0); Phosphorus 2.9 mg/dl (2.5-4.9); Potassium 4.5 mmol/L (3.5-5.1); Total Protein 5.5 gm/dl (6.0-8.3)
--- NOTE | 2022-04-09 11:58 | Hospitalist Progress Note ---
Date of Service April 09, 2022 Assessment & Plan (1) Acute on chronic anemia: Plan: Patient presenting from [facility] for evaluation of anemia History of chronic anemia on iron replacement and Procrit injections. Baseline hemoglobin ~ 9.0. On admission, Hgb 7.3, down from 8.1 on 04/03 Was seen in ED on 04/03 for supratherapeutic INR and received vitamin K 2.5 mg PO No signs of bleeding at this time Likely in the setting of CKD - will need nephrology follow up and evaluation for IV iron vs EPO vs periodic transfusions She is not reporting any symptoms of anemia but is bedbound. Patient follows closely with anemia clinic as an outpatient - FOBT positive on admission - will repeat sample - will need GI and renal follow up as outpatient s/p 1 unit PRBC - hgb improved 7.1-->8 without other signs or symptoms of bleeding - she is ok for discharge, to follow up with Renal, GI, PCP (2) Paroxysmal A-fib: Plan: Sinus rhythm on admission - continue warfarin - daily INR (3) Recurrent UTI: Plan: On chronic Macrobid therapy, however, renal function is really too low for this. Hold Macrobid now and reassess with PCP on other options for this if renal function doesn't improve. Recently treated for yeast UTI with fluconazole (which likely contributed to supratherapeutic INR) (4) CKD (chronic kidney disease) stage 3, GFR 30-59 ml/min: Plan: Chronic, stable and around her baseline. Continue renally dosing medicines and avoiding nephrotoxic substances. - will need nephrology follow up on discharge (5) T2DM (type 2 diabetes mellitus): Plan: Hgb A1c 5.9 10/2021 Hold oral agents and utilize NovoLog for carb coverage and correction factor while hospitalized (6) Hypothyroidism: Plan: Continue levothyroxine (7) DVT prophylaxis: Plan: Therapeutic INR/SCDs Full Code Dispo-back to [facility] SNF once H/H has stabilized. Haroldo Monroe MD Hospital Medicine Admission and Anticipated Discharge Date Admission Date: April 06, 2022 Subjective 87-year-old female with PMH DM type II, CKD stage III, chronic anemia on iron replacement and Procrit injections, hypothyroidism, HLD, paroxysmal atrial fibrillation on amiodarone and Coumadin, HTN, and other problems listed below who presents to the ED from [facility] for evaluation of anemia. Patient was found to have hgb 7.3 on admission, which remained basically stable. Plan is to transfuse 1 unit PRBC, which is taking a long time due to increased antibodies and need for PRBCs to be acquired from elsewhere. She remained clinically stable without any hemodynamic instability, signs of active bleeding, or dramatic drop in hgb. She reports no symptoms this morning. She was sitting up in bed and eating. She denied chest pain, shortness of breath, light headedness, n/v, blurry vision, palpatations. Review of Systems Review of Systems: All systems reviewed & are unremarkable except as noted in Subjective Physical Exam Constitutional: WD/WN, vitals as above Eyes: PERRL, conjunctivae normal, anicteric sclerae ENMT: external ear and nose normal, oropharynx normal Respiratory: normal respiratory effort, lungs clear to auscultation Cardiovascular: Rate/Rhythm: regular rate and regular rhythm Vessels: normal peripheral pulses Extremities: no edema Gastrointestinal (Abdomen): normal bowel sounds, soft, nontender, no hepatosplenomegaly Musculoskeletal: no cyanosis or clubbing, extremities motor strength 5/5 Skin: no rashes, warm and dry Neurologic: PERRL, EOMI, accommodation nl, no face palsy, no dysarthria Psychiatric: A+Ox3, euthymic affect Results & Data Results & Data ([facility]) Vital Signs (Past 12 Hours) Vital Signs Temp Pulse Pulse Resp BP BP Pulse Ox 04/09/22 10:14 68 105/58 L 04/09/22 08:49 61 111/61 04/09/22 06:57 36.6 C 71 16 114/58 L 95 04/09/22 02:26 37.1 C 69 18 118/67 96 04/09/22 02:25 37.1 C 69 18 118/67 95 04/09/22 01:25 37.1 C 65 18 119/58 L 93 04/09/22 00:25 36.9 C 68 18 114/64 93 O2 Del Method 04/09/22 10:14 04/09/22 08:49 04/09/22 06:57 Room Air 04/09/22 02:26 04/09/22 02:25 04/09/22 01:25 04/09/22 00:25 Laboratory Results Short CBC 04/09/22 Range/Units 09:21 WBC 6.61 (4.8-10.8) K/ul Hgb 8.8 L (12.0-16.0) g/dl Hct 27.8 L (34.1-44.9) % Plt Count 188 (130-400) K/uL BMP 04/09/22 09:21 Sodium 139 Potassium 4.5 Chloride 109 H Carbon Dioxide 26 BUN 40 H Creatinine 1.58 H Glucose 172 H Calcium 7.9 L Liver Function 04/09/22 Range/Units 09:21 Total Bilirubin 1.0 (0.2-1.0) mg/dl AST 32 (13-39) U/L ALT 22 (7-52) U/L Alkaline Phosphatase 55 (34-104) U/L Albumin 3.2 L (3.4-5.0) gm/dl Medications Administered Current Inpatient Medications Acetaminophen (Acetaminophen 325 Mg Tab) 650 mg PO Q4H PRN PRN Reason: pain/fever Stop: 05/06/22 20:35 Amiodarone HCl (Amiodarone 200 Mg Tab) 200 mg PO QAM NO Stop: 05/07/22 08:59 Last Admin: 04/09/22 10:16 Dose: Not Given Aspirin (Aspirin 81 Mg Ectab) 81 mg PO MoWeFr@0900 [facility] Stop: 05/08/22 08:59 Last Admin: 04/08/22 08:44 Dose: 81 mg Dextrose (Dextrose 50% 50 Ml Syringe) 25 - 50 ml IV UD PRN; Protocol PRN Reason: Hypoglycemia Protocol Stop: 05/06/22 20:35 Ferrous Sulfate (Ferrous Sulfate 325 Mg Tab) 325 mg PO DAILY [facility] Stop: 05/07/22 08:59 Last Admin: 04/09/22 10:16 Dose: 325 mg Glucagon (Glucagon For Inj 1 Mg Vial) 1 mg SQ UD PRN; Protocol PRN Reason: Hypoglycemia Protocol Stop: 05/06/22 20:35 Glucose (Glucose 40% Gel 15 Gm Tube) 15 - 30 gm PO UD PRN; Protocol PRN Reason: Hypoglycemia Protocol Stop: 05/06/22 20:35 Glucose (Glucose 10 Tab/Tube) 4 - 8 tab PO UD PRN; Protocol PRN Reason: Hypoglycemia Treatment Stop: 05/06/22 20:35 Insulin Aspart (Insulin Aspart Per Unit) 0 units SC ACHS [facility] Stop: 05/06/22 20:59 Last Admin: 04/09/22 10:13 Dose: Not Given Levothyroxine Sodium (Levothyroxine Sodium 100 Mcg Tablet) 100 mcg PO DAILYBB [facility] Stop: 05/07/22 06:29 Last Admin: 04/09/22 06:21 Dose: 100 mcg Melatonin (Melatonin 3 Mg Tab) 3 mg PO [facility] Stop: 05/06/22 20:59 Last Admin: 04/08/22 20:44 Dose: 3 mg Metoprolol Tartrate (Metoprolol Tartrate 25 Mg Tab) 12.5 mg PO BID [facility] Stop: 05/06/22 20:59 Last Admin: 04/09/22 10:15 Dose: Not Given Miscellaneous (Estradiol 0.01% Cream-Order Awaiting Action) 1 each N/A QS [facility] Stop: 05/07/22 00:00 Last Admin: 04/09/22 10:29 Dose: Not Given Miscellaneous (Carbohydrates For Hypoglycemia ) 15 - 30 gm PO UD PRN PRN Reason: Hypoglycemia Protocol Stop: 05/06/22 20:35 Nitrofurantoin Macrocrystals (Nitrofurantoin Monohydrate 100 Mg Cap) 100 mg PO [facility] Stop: 05/06/22 20:59 Last Admin: 04/06/22 23:44 Dose: 100 mg Polyethylene Glycol (Polyethylene (Miralax) 17 Gm Pack) 17 gm PO DAILY PRN PRN Reason: constipation Stop: 05/06/22 20:35 Rosuvastatin Calcium (Rosuvastatin Calcium 10 Mg Tab) 10 mg PO [facility] Stop: 05/06/22 21:29 Last Admin: 04/08/22 20:41 Dose: 10 mg Tamsulosin HCl (Tamsulosin Hcl 0.4 Mg Cap) 0.4 mg PO [facility] Stop: 05/06/22 20:59 Last Admin: 04/08/22 20:54 Dose: 0.4 mg (1) CKD (chronic kidney disease) stage 3, GFR 30-59 ml/min Chronic kidney disease stage 3 subtype: stage 3a (GFR 45-59) Qualified Code(s): N18.31 - Chronic kidney disease, stage 3a (2) T2DM (type 2 diabetes mellitus) Diabetes mellitus [facility] insulin use: 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
--- NOTE | 2022-04-09 17:33 | Discharge Summary ---
Date of Service April 09, 2022 Admission HPI Per Admitting Provider 87-year-old female with PMH DM type II, CKD stage III, chronic anemia on iron replacement and Procrit injections, hypothyroidism, HLD, paroxysmal atrial fibrillation on amiodarone and Coumadin, HTN, and other problems listed below who presents to the ED from [facility] for evaluation of anemia. Patient seen in the ED on 04/03 after outpatient INR was found to be 7.9. Patient denies any signs of bleeding. Patient received p.o. vitamin K in the ED on 04/03 and was instructed to hold Coumadin. Repeat labs today showed Hgb 7.1, INR 2.5. Patient's baseline hemoglobin is ~ 9.0. Due to acute drop, patient was referred back to the ED for further evaluation. Patient continues to deny signs of bleeding. Denies bright red bleeding per rectum or dark tarry stools. Stools are somewhat dark at baseline due to iron supplementation. Patient denies abdominal pain, nausea, vomiting. No chest pain or shortness of breath. Denies lightheadedness, dizziness, diaphoresis, syncopal events. Has chronic fatigue and weakness which is unchanged from baseline. Was treated for a yeast UTI a couple of weeks ago with fluconazole. Denies any current urinary symptoms. No fevers or chills. In the ED, labs show Hgb 7.3. Patient is hemodynamically stable. She has been typed and crossed for blood transfusion. Admission Exam Per Admitting Provider Constitutional: WD/WN, vitals as above Eyes: PERRL, conjunctivae normal, anicteric sclerae ENMT:L external ear and nose normal, oropharynx normal Respiratory: normal respiratory effort, lungs clear to auscultation Cardiovascular: Rate/Rhythm: regular rate and regular rhythm Vessels: normal peripheral pulses Extremities: no edema Gastrointestinal (Abdomen): normal bowel sounds, soft, nontender, no hepatosplenomegaly Musculoskeletal: no cyanosis or clubbing, extremities motor strength 5/5 Skin: no rashes, warm and dry Neurologic: PERRL, EOMI, accommodation nl, no face palsy, no dysarthria Psychiatric: A+Ox3, euthymic affect Principal Diagnosis acute on chronic anemia due to chronic kidney diease Discharge Exam Constitutional WD/WN, vitals as above Eyes PERRL, conjunctivae normal, anicteric sclerae ENMT external ear and nose normal, oropharynx normal Respiratory normal respiratory effort, lungs clear to auscultation Cardiovascular Rate/Rhythm: regular rate and regular rhythm Vessels: normal peripheral pulses Extremities: no edema Gastrointestinal (Abdomen) normal bowel sounds, soft, nontender, no hepatosplenomegaly Musculoskeletal no cyanosis or clubbing, extremities motor strength 5/5 Skin no rashes, warm and dry Neurologic PERRL, EOMI, accommodation nl, no face palsy, no dysarthria Psychiatric A+Ox3, euthymic affect Discharge Data Allergies Allergy/AdvReac Type Severity Reaction Status Date / Time sulfamethoxazole Allergy Intermediate Rash Verified 04/06/22 17:17 tetanus toxoid, adsorbed Allergy Intermediate HIVES Verified 04/06/22 17:17 tetracycline Allergy Intermediate hives Verified 04/06/22 17:17 trimethoprim Allergy Intermediate Rash Verified 04/06/22 17:17 rosuvastatin AdvReac Intermediate Muscle Verified 04/06/22 17:17 stiffness Consultations 04/06/22 17:16 ED Decision to Admit Stat Hospital Course (1) Acute on chronic anemia: Patient presenting from [facility] for evaluation of anemia History of chronic anemia on iron replacement and Procrit injections. Baseline hemoglobin ~ 9.0. On admission, Hgb 7.3, down from 8.1 on 04/03 Was seen in ED on 04/03 for supratherapeutic INR and received vitamin K 2.5 mg PO No signs of bleeding at this time Likely in the setting of CKD - will need nephrology follow up and evaluation for IV iron vs EPO vs periodic transfusions She is not reporting any symptoms of anemia but is bedbound. Patient follows closely with anemia clinic as an outpatient - FOBT positive on admission - will repeat sample - will need GI and renal follow up as outpatient s/p 1 unit PRBC - hgb improved 7.1-->8 without other signs or symptoms of bleeding - she is ok for discharge, to follow up with Renal, GI, PCP (2) Paroxysmal A-fib: Sinus rhythm on admission - continue warfarin - daily INRwhile inpatient (3) Recurrent UTI: On chronic Macrobid therapy, however, renal function is really too low for this. Hold Macrobid now and reassess with PCP on other options for this if renal function doesn't improve. Recently treated for yeast UTI with fluconazole (which likely contributed to supratherapeutic INR) (4) CKD (chronic kidney disease) stage 3, GFR 30-59 ml/min: Chronic, stable and around her baseline. Continue renally dosing medicines and avoiding nephrotoxic substances. - will need nephrology follow up on discharge (5) T2DM (type 2 diabetes mellitus): Hgb A1c 5.9 10/2021 Hold oral agents and utilize NovoLog for carb coverage and correction factor while hospitalized (6) Hypothyroidism: (7) DVT prophylaxis: Total Time Total Time Spent Total Time Spent (In Minutes): 25 minutes Total Time Includes: Examination of the Patient, Discharge Planning and Medication Reconciliation Discharge Plan Discharge Items Patient Disposition: Personal Long Term Reason For Visit: ANEMIA Discharge Diagnosis: Anemia Activity: Resume your previous activity Non-emergency contact: Primary Care Provider, Special Librarian and Nephro logist Call non-emergency contact if: you have any medication questions and your symptoms worsen Follow-up/Referrals: Kendall Smith [place] [Primary Care Provider] - Diet: Carb Consistent or DM2 and Heart Healthy Addtl Attending Provider Instructions: You were admitted for anemia with hgb to 7.3. This is likely in the setting of your chronic kidney disease. You received 1 unit of blood with improvement of your hemoglobin to 7.1-->8. You felt well while you were here. You should follow up with your primary care doctor for repeat blood work and follow up with a silver chaser for your chronic kidney disease and with a GI doctor to discuss options like colonoscopy. Pending Studies at Discharge: No Stand-Alone Forms: My [employer], Smoking Cessation Skilled Items Lines: None Urinary Catheter: No Medications and DC Order Prescriptions: Continued tamsulosin [Flomax] 0.4 mg capsule 0.4 mg PO HS Qty: 90 3RF aspirin [Orquidea Low Dose Aspirin] 81 mg Tablet,Delayed Release (Dr/Ec) 81 mg PO 3XWK Rx Instructions: TAKE THIS MEDICATION EVERY WEDNESDAY,WEDNESDAY AND WEDNESDAY fluticasone propionate [Flonase Allergy Relief] 50 mcg/actuation [place],Suspension 2 spray INTRANASAL HS PRN (Reason: Nasal Congestion) levothyroxine 100 mcg tablet 100 mcg PO DAILYBB Rx Instructions: TAKE THIS MEDICATION AT LEAST 30 MINUTES BEFORE BREAKFAST OR ANY OTHER MEDICATIONS docusate sodium [Col-Rite] 100 mg capsule 100 mg PO HS glipizide 5 mg tablet 10 mg PO QAM rosuvastatin 10 mg tablet 10 mg PO HS warfarin 2 mg tablet See Rx Instructions .ROUTE .COMPLEX Rx Instructions: ON HOLD UNTIL 04/06/22. 2 mg orally ; TAKES WED, WED, WED, & WED. @ HS polyethylene glycol 3350 [Miralax] 17 gram Powder In Packet 17 g PO DAILY PRN (Reason: constipation) Qty: 30 0RF warfarin 1 mg Tablet See Rx Instructions .ROUTE .COMPLEX Rx Instructions: ON HOLD UNTIL 04/06/22. 1 mg orally; TAKES WEDNESDAY, WEDNESDAY, & THURSDAYS @ HS cholecalciferol (vitamin D3) [Vitamin D3] 25 mcg (1,000 unit) Tablet 50 mcg PO DAILY Januvia 25 mg tablet 25 mg PO DAILY PreserVision AREDS-2 250-90-40-1 mg Capsule 1 tab PO BID metoprolol tartrate 25 mg Tablet 12.5 mg PO BID Qty: 60 0RF estradiol 0.01 % (0.1 mg/gram) cream 1 g VAGINAL QPM amoxicillin 500 mg Capsule 2,000 mg PO DIRECTED PRN (Reason: PRIOR TO DENTAL APPT.) ketoconazole 2 % Shampoo 1 ea TOPICAL 3XWK Rx Instructions: USES WED, WED, & WED. loperamide 2 mg Capsule 2 mg PO Q8H PRN (Reason: Diarrhea) melatonin 3 mg Tablet 3 mg PO HS acetaminophen [Tylenol Extra Strength] 500 mg Tablet 500 mg PO Q8H PRN (Reason: FEVER >100.5/MODERATE PAIN) ferrous sulfate 325 mg (65 mg iron) Tablet 325 mg PO DAILY docusate sodium [Colace] 100 mg Capsule 100 mg PO Q24H PRN (Reason: DAY 2 IF NO BM.) betamethasone valerate 0.12 % foam 1 applic TOPICAL HS Rx Instructions: APPLY TO SCALP hydroxyzine HCl 10 mg Tablet 10 mg PO Q6H PRN (Reason: Anxiety) Saccharomyces boulardii 250 mg Capsule 250 mg PO DAILY diclofenac sodium 1 % Gel 2 g TOPICAL Q12H PRN (Reason: Pain) guaifenesin 600 mg Tablet Extended Release 12hr 600 mg PO Q12H PRN (Reason: Congestion) amiodarone 200 mg tablet 200 mg PO QAM Discontinued nitrofurantoin monohyd/m-cryst [Macrobid] 100 mg Capsule 100 mg PO HS Discharge Orders: Discharge Order (Routine); Ordered 04/09/22 Ordered By: Haroldo Benavidez/Other Patient Handouts: Anemia Admission Data Admit Date/Time: 04/06/22 17:35 Attending Provider: Haroldo Monroe Admit Provider: Juliano Herrera Primary Care Provider: Kendall Smith [place] Other Providers: Juliano Herrera Other Interventions: Discharge Summary Assessment (RN) Last Done: 04/09/22 12:48
== END 2022-04-09 14:21 | disposition home or self-care (01) | DRG 684 ==
LOC: ED 14:17 → SUATTDRO 17:35 → 3W 17:35

== ENCOUNTER 2022-08-24 16:22 | Inpatient (IN) ==
[2022-08-24] MEDS ORDERED: SODIUM CHLORIDE 0.9% 1000ML 1,000 ML IV STA (16:55)
[2022-08-24 17:12] LABS: Hematocrit (blood only) 29.7 % (34.1-44.9); Hemoglobin 9.2 g/dl (12.0-16.0); Mean Corpuscular Hemoglobin 27.1 pg (25.0-34.0); Mean Corpuscular Volume 87.4 fL (80.0-100.0); Mean Platelet Volume 10.4 fL (9.4-12.3); Nucleated RBC # (auto) 0.02 K/uL (0-0); Nucleated RBC % (auto) 0.3 %; Platelet Count 162 K/uL (130-400); RDW Coefficient of Variation 15.9 % (11.5-14.5); White Blood Count 7.38 K/ul (4.8-10.8)
[2022-08-24 17:25] LABS: INR 2.2 (0.9-1.1); Partial Thromboplastin Time 27.8 Seconds (21.0-31.0); Prothrombin Time 22.7 Seconds (9.0-12.0)
--- NOTE | 2022-08-24 17:28 | XRay Report ---
XR chest 1V portable HISTORY: Fever. Weakness. COMPARISON: Chest 03/15/2022. FINDINGS: No pneumothorax. There are low lung volumes. Bibasilar linear densities persist. These favo r subsegmental atelectasis or scarring. The upper lung zones are clear. No evidence for pulmonary tiara ma. The heart remains enlarged. A transvenous an aortic knob calcifications persist. IMPRESSION: No significant change compared to the prior study. No acute process. ACT 112: Negative or not required by law. Electronically signed by: Donato Duval M.D. 08/24/2022 5:27 PM
[2022-08-24 17:29] LABS: Basophils # (auto) 0.02 K/uL (0-0.2); Basophils % (auto) 0.3 %; Eosinophils # (auto) 0.01 K/uL (0-0.50); Eosinophils % (auto) 0.1 %; Immature Granulocytes # (auto) 0.05 K/uL (0.00-0.02); Immature Granulocytes % (auto) 0.7 %; Lymphocytes % (auto) 4.1 %; Monocytes # (auto) 0.29 K/uL (0.24-0.82); Monocytes % (auto) 3.9 %; Neutrophils # (auto) 6.71 K/uL (1.4-6.5); Neutrophils % (auto) 90.9 %
--- NOTE | 2022-08-24 17:32 | Emergency Department Note ---
Impression & Plan Confusion, Sepsis, Diverticulitis, Acute UTI, Weakness ED Provider Note Provider: Lc Huerta MD DATE OF SERVICE: 08/24/2022 CHIEF COMPLAINT: Fever, vomiting, weakness HISTORY OF PRESENT ILLNESS: Patient is a 87-year-old female history of paroxysmal atrial fibrillation, type 2 diabetes, hypertension, hypothyroidism, CKD presenting here today via ambulance from [facility]. Patient evidently was okay and then went to the dentist today. And back to [facility] from there and then developed a high fever reportedly of 102 and had rigors and then vomited. They also report that she had some slurred speech and was confused and was bit slumped over on the toilet but did not fall. She was noted to have a low oxygen level and blood pressure according to the report from the facility. Patient here is more awake and alert. Daughter later arrives and states she is looking much better and is now making sense and not slurring her speech. Patient denies any significant pain. Patient states he is at the dentist but does not relate any significant dental pain. Denies any falls. Noted to have a little oxygen requirement here as well as having some slightly low blood pressu re. Patient's daughter reports this happened similarly about a month ago after a dentist visit but quickly improved and did not come to the hospital. Patient does take prophylactic antibiotics given a prior hip surgery and did this earlier today. History of recurrent UTIs reported. REVIEW OF SYSTEMS: A total of 10 review of systems was obtained and negative except as stated above in the HPI. PAST MEDICAL HISTORY: As noted above MEDICATIONS: Reviewed home medication list from the facility SOCIAL HISTORY: Lives at [facility] PHYSICAL EXAM: GENERAL: alert and oriented in no acute distress on stretcher Head: normocephalic and atraumatic EYES: No injection, discharge or icterus. PERRL NECK: Trachea midline. Supple. ENT: Mucous membranes pink and moist. No obvious significant dental swelling. LUNGS: Airway patent. No retractions. Breath sounds clear with good air entry bilaterally. HEART: Regular rate and rhythm. No chest wall tenderness ABDOMEN: Soft and non-tender, without guarding or rebound. SKIN: Acyanotic, warm, dry, without rashes EXTREMITIES: Without swelling, tenderness or deformity NEUROLOGICAL: No focal deficits. No aphasia. No facial droop or slurred speech. Normal strength and tone in the extremities. Sensation to gross touch normal. EK bpm normal sinus rhythm with incomplete right bundle branch block. Left axis. No acute ST segment elevation or depression with a QTC of 469. CONTINUOUS CARDIAC MONITORING: was ordered and showed a heart rate of 70s-80s bpm in normal sinus rhythm Patient's laboratory studies and imaging reviewed. Differential includes Infection, dehydration, metabolic abnormality, hypo/hyperglycemia, electrolyte disturbance, anemia, hypoxia, cardiac sources, intracerebral event, toxicologic, neurologic, as well as other pathologies. IMPRESSION/MEDICAL DECISION MAKING: Patient without significant focal deficit upon arrival here. History of anticoagulation. Patient blood pressure somewhat tenuous here initially. On a bit of oxygen which is new. X-ray obtained as well as blood work and cultures. COVID and flu test sent. CT head and swelling of the pelvis obtained given frequent urinary infections in the vomiting as well as the anticoagulation use although no trauma is reported. Blood without leukocytosis and stable to slightly improved anemia. INR therapeutic and lower suspicion for VTE. No significant electrolyte abnormality. No evidence of transaminitis or pancreatitis. Stable CKD. Procal citonin significantly elevated. Will empirically cover with Zosyn. Chest x-ray without acute process noted by radiology report. CT head without acute abnormality. CT abdomen pelvis per radiology report questions or colitis or diverticulitis as well as some nonspecific cystitis. Again difficulty with a straight cath to obtain urine we will continue to try. Urine does return with concerns for infection for bedpan collection. Believe some component of sepsis. Blood pressure improved with some IV fluids. Discussed with daughter and patient at bedside and will bring into the hospital. DIAGNOSIS: Diverticulitis, hypoxia, sepsis, Weakness, acute UTI DISPOSITION: Hospitalist will evaluate Patient was agreeable with this plan. Past Med/Surg History Medical History (Updated 08/25/22 @ 00:19 by Lc Huerta M.D.) Acute on chronic anemia CKD (chronic kidney disease) stage 4, GFR 15-29 ml/min Closed left hip fracture s/p repair Gram-negative bacteremia History of COVID-19 History of MRSA infection History of traumatic subdural hematoma HLD (hyperlipidemia) HTN (hypertension) Hypothyroidism Left knee DJD Paroxysmal A-fib Recurrent UTI Sepsis Symptomatic anemia T2DM (type 2 diabetes mellitus) Surgical History History of breast biopsy History of cholecystectomy History of hysterectomy Family History Mother Breast cancer Hypertension Father , at 92 No problems noted. Social History Smoking Status: Never smoker Second Hand Exposure: No; Hx Alcohol Use: No Hx Substance Use: No Preferred Language: Hebrew Communication Ability: Effective Rope Rider Required: No Beliefs That Will Affect Care: None marital status: / Current Living Situation: Personal Care Facility Current Living Situation Comment: [facility] How many Children do You have: 1 Other Information That Helps Us Care for You: No other: ambulates with cane Feels Safe at Home: Yes Safety Concerns: Feels Safe At This Time Assistive Devices: Wheelchair Allergies Allergies Allergy/AdvReac Type Severity Reaction Status Date / Time sulfamethoxazole Allergy Intermediate Rash Verified 04/06/22 17:17 tetanus toxoid, adsorbed Allergy Intermediate HIVES Verified 04/06/22 17:17 tetracycline Allergy Intermediate hives Verified 04/06/22 17:17 trimethoprim Allergy Intermediate Rash Verified 04/06/22 17:17 rosuvastatin AdvReac Intermediate Muscle Verified 04/06/22 17:17 stiffness Home Meds Home Medications Medication Instructions Recorded Confirmed aspirin 81 mg tablet,delayed 81 mg PO 3XWK 10/31/18 08/24/22 release (Orquidea Low Dose Aspirin) fluticasone propionate 50 2 spray intranasal HS PRN Nasal 10/31/18 08/24/22 mcg/actuation nasal Congestion spray,suspension (Flonase Allergy Relief) levothyroxine 100 mcg tablet 100 mcg PO DAILYBB 10/31/18 08/24/22 docusate sodium 100 mg capsule 100 mg PO HS PRN Constipation 06/25/20 08/24/22 (Col-Rite) glipizide 5 mg tablet 10 mg PO QAM 06/25/20 08/24/22 rosuvastatin 10 mg tablet 10 mg PO HS 06/25/20 08/24/22 cholecalciferol (vitamin D3) 25 50 mcg PO DAILY 11/09/20 08/24/22 mcg (1,000 unit) tablet (Vitamin D3) sitagliptin phosphate 25 mg tablet 25 mg PO DAILY 11/09/20 08/24/22 (Januvia) vit C 250 mg-vit E 90 mg-zinc 40 1 tab PO BID 11/09/20 08/24/22 mg-copper 1 [id number] capsule (PreserVision AREDS-2) warfarin 1 mg tablet 1 mg PO 4XWK 11/09/20 08/24/22 estradiol 0.01% (0.1 mg/gram) 1 g vaginal QPM 12/13/20 08/24/22 vaginal cream Saccharomyces boulardii 250 mg 250 mg PO DAILY 03/15/22 08/24/22 capsule acetaminophen 500 mg tablet 500 mg PO Q8H PRN FEVER 03/15/22 08/24/22 (Tylenol Extra Strength) >100.5/MODERATE PAIN amiodarone 200 mg tablet 200 mg PO QAM 03/15/22 08/24/22 amoxicillin 500 mg capsule 2,000 mg PO DIRECTED PRN PRIOR 03/15/22 08/24/22 TO DENTAL APPT. betamethasone valerate 0.12 % 1 applic topical HS 03/15/22 08/24/22 topical foam diclofenac sodium 1 % topical gel 2 g topical Q12H PRN Pain 03/15/22 08/24/22 ferrous sulfate 325 mg (65 mg 325 mg PO DAILY 03/15/22 08/24/22 iron) tablet guaifenesin 600 mg tablet, 600 mg PO Q12H PRN Congestion 03/15/22 08/24/22 extended release 12 hr hydroxyzine HCl 10 mg tablet 10 mg PO Q6H PRN Anxiety 03/15/22 08/24/22 ketoconazole 2 % shampoo 1 ea topical 3XWK 03/15/22 08/24/22 loperamide 2 mg capsule 2 mg PO Q8H PRN Diarrhea 03/15/22 08/24/22 melatonin 3 mg tablet 3 mg PO HS 03/15/22 08/24/22 nitrofurantoin 100 mg PO HS 08/24/22 08/24/22 monohydrate/macrocrystals 100 mg capsule warfarin 1 mg tablet 1.5 mg PO 3XWK 08/24/22 08/24/22 Previous Rx's Medication Instructions Recorded tamsulosin 0.4 mg capsule (Flomax) 0.4 mg PO HS #90 caps 07/11/19 polyethylene glycol 3350 17 gram 17 g PO DAILY PRN constipation #30 09/05/20 oral powder packet (Miralax) ea metoprolol tartrate 25 mg tablet 12.5 mg PO BID #60 tabs 11/18/20 Results & Data (ED) Vital Signs Vital Signs - 24 hr 08/24/22 16:56 08/24/22 16:34 08/24/22 16:40 Temperature 37.0 C Temperature Source Oral Pulse Rate 86 87 86 Pulse Rate [Apical] Pulse Rate from SpO2 Sensor 87 86 Pulse Rhythm Regular Pulse Strength Normal Respiratory Rate 20 23 22 Respiratory Effort / Characteristics Non-Labored Spontaneous Respiratory Depth Normal Blood Pressure 96/41 L Blood Pressure [Right Arm] Blood Pressure Mean 59 Blood Pressure Mean [Right Arm] Blood Pressure Position Lying Pulse Oximetry 93 90 88 L Oxygen Delivery Method Nasal Cannula Oxygen Flow Rate 2 Sepsis Recent Fever Within 48 Hours Yes Sepsis New/Unexplained Change in Mental Status N/A Sepsis Action Taken by Nursing No Action Required 08/24/22 16:50 08/24/22 16:53 08/24/22 16:53 Temperature Temperature Source Pulse Rate 82 85 Pulse Rate [Apical] Pulse Rate from SpO2 Sensor 82 85 Pulse Rhythm Pulse Strength Respiratory Rate 15 26 H Respiratory Effort / Characteristics Respiratory Depth Blood Pressure 73/40 L Blood Pressure [Right Arm] Blood Pressure Mean 51 Blood Pressure Mean [Right Arm] Blood Pressure Position Pulse Oximetry 95 96 Oxygen Delivery Method Oxygen Flow Rate Sepsis Recent Fever Within 48 Hours Sepsis New/Unexplained Change in Mental Status Sepsis Action Taken by Nursing 08/24/22 16:57 08/24/22 16:57 08/24/22 17:00 Temperature Temperature Source Pulse Rate 83 Pulse Rate [Apical] Pulse Rate from SpO2 Sensor 81 Pulse Rhythm Pulse Strength Respiratory Rate 19 Respiratory Effort / Characteristics Respiratory Depth Blood Pressure 85/39 L 80/37 L Blood Pressure [Right Arm] Blood Pressure Mean 54 51 Blood Pressure Mean [Right Arm] Blood Pressure Position Pulse Oximetry 91 Oxygen Delivery Method Oxygen Flow Rate Sepsis Recent Fever Within 48 Hours Sepsis New/Unexplained Change in Mental Status Sepsis Action Taken by Nursing 08/24/22 17:00 08/24/22 17:09 08/24/22 17:09 Temperature Temperature Source Pulse Rate 83 84 Pulse Rate [Apical] Pulse Rate from SpO2 Sensor 82 84 Pulse Rhythm Pulse Strength Respiratory Rate 23 19 Respiratory Effort / Characteristics Respiratory Depth Blood Pressure 88/40 L Blood Pressure [Right Arm] Blood Pressure Mean 56 Blood Pressure Mean [Right Arm] Blood Pressure Position Pulse Oximetry 93 92 Oxygen Delivery Method Oxygen Flow Rate Sepsis Recent Fever Within 48 Hours Sepsis New/Unexplained Change in Mental Status Sepsis Action Taken by Nursing 08/24/22 17:10 08/24/22 17:16 08/24/22 17:16 Temperature Temperature Source Pulse Rate 86 80 Pulse Rate [Apical] Pulse Rate from SpO2 Sensor 85 80 Pulse Rhythm Pulse Strength Respiratory Rate 17 18 Respiratory Effort / Characteristics Respiratory Depth Blood Pressure 87/39 L Blood Pressure [Right Arm] Blood Pressure Mean 55 Blood Pressure Mean [Right Arm] Blood Pressure Position Pulse Oximetry 93 96 Oxygen Delivery Method Oxygen Flow Rate Sepsis Recent Fever Within 48 Hours Sepsis New/Unexplained Change in Mental Status Sepsis Action Taken by Nursing 08/24/22 17:18 08/24/22 17:18 08/24/22 17:20 Temperature Temperature Source Pulse Rate 80 77 Pulse Rate [Apical] Pulse Rate from SpO2 Sensor 80 77 Pulse Rhythm Pulse Strength Respiratory Rate 15 19 Respiratory Effort / Characteristics Respiratory Depth Blood Pressure 83/40 L Blood Pressure [Right Arm] Blood Pressure Mean 54 Blood Pressure Mean [Right Arm] Blood Pressure Position Pulse Oximetry 96 95 Oxygen Delivery Method Oxygen Flow Rate Sepsis Recent Fever Within 48 Hours Sepsis New/Unexplained Change in Mental Status Sepsis Action Taken by Nursing 08/24/22 17:25 08/24/22 17:25 08/24/22 17:47 Temperature Temperature Source Pulse Rate 77 Pulse Rate [Apical] 81 Pulse Rate from SpO2 Sensor 76 Pulse Rhythm Pulse Strength Respiratory Rate 17 16 Respiratory Effort / Characteristics Non-Labored Respiratory Depth Normal Blood Pressure 87/36 L Blood Pressure [Right Arm] 109/44 L Blood Pressure Mean 53 Blood Pressure Mean [Right Arm] 65 Blood Pressure Position Pulse Oximetry 93 98 Oxygen Delivery Method Nasal Cannula Oxygen Flow Rate 2 Sepsis Recent Fever Within 48 Hours Sepsis New/Unexplained Change in Mental Status Sepsis Action Taken by Nursing 08/24/22 17:46 08/24/22 17:46 08/24/22 17:58 Temperature Temperature Source Pulse Rate Pulse Rate [Apical] Pulse Rate from SpO2 Sensor 80 Pulse Rhythm Pulse Strength Respiratory Rate Respiratory Effort / Characteristics Respiratory Depth Blood Pressure 109/44 L 112/45 L Blood Pressure [Right Arm] Blood Pressure Mean 65 67 Blood Pressure Mean [Right Arm] Blood Pressure Position Pulse Oximetry 98 Oxygen Delivery Method Oxygen Flow Rate Sepsis Recent Fever Within 48 Hours Sepsis New/Unexplained Change in Mental Status Sepsis Action Taken by Nursing 08/24/22 17:58 08/24/22 18:00 08/24/22 18:00 Temperature Temperature Source Pulse Rate 80 81 Pulse Rate [Apical] Pulse Rate from SpO2 Sensor 80 80 Pulse Rhythm Pulse Strength Respiratory Rate 15 15 Respiratory Effort / Characteristics Respiratory Depth Blood Pressure 111/45 L Blood Pressure [Right Arm] Blood Pressure Mean 67 Blood Pressure Mean [Right Arm] Blood Pressure Position Pulse Oximetry 94 93 Oxygen Delivery Method Nasal Cannula Nasal Cannula Oxygen Flow Rate 2 2 Sepsis Recent Fever Within 48 Hours Sepsis New/Unexplained Change in Mental Status Sepsis Action Taken by Nursing 08/24/22 18:15 08/24/22 18:15 08/24/22 18:30 Temperature Temperature Source Pulse Rate 81 Pulse Rate [Apical] Pulse Rate from SpO2 Sensor 84 Pulse Rhythm Pulse Strength Respiratory Rate 12 Respiratory Effort / Characteristics Respiratory Depth Blood Pressure 107/46 L 94/44 L Blood Pressure [Right Arm] Blood Pressure Mean 66 60 Blood Pressure Mean [Right Arm] Blood Pressure Position Pulse Oximetry 93 Oxygen Delivery Method Nasal Cannula Oxygen Flow Rate 2 Sepsis Recent Fever Within 48 Hours Sepsis New/Unexplained Change in Mental Status Sepsis Action Taken by Nursing 08/24/22 18:30 08/24/22 18:45 08/24/22 18:45 Temperature Temperature Source Pulse Rate 82 79 Pulse Rate [Apical] Pulse Rate from SpO2 Sensor 85 80 Pulse Rhythm Pulse Strength Respiratory Rate 23 15 Respiratory Effort / Characteristics Respiratory Depth Blood Pressure 95/40 L Blood Pressure [Right Arm] Blood Pressure Mean 58 Blood Pressure Mean [Right Arm] Blood Pressure Position Pulse Oximetry 89 L 93 Oxygen Delivery Method Oxygen Flow Rate Sepsis Recent Fever Within 48 Hours Sepsis New/Unexplained Change in Mental Status Sepsis Action Taken by Nursing 08/24/22 19:00 08/24/22 19:00 08/24/22 19:15 Temperature Temperature Source Pulse Rate 80 Pulse Rate [Apical] Pulse Rate from SpO2 Sensor 81 Pulse Rhythm Pulse Strength Respiratory Rate 20 Respiratory Effort / Characteristics Respiratory Depth Blood Pressure 96/41 L 102/45 L Blood Pressure [Right Arm] Blood Pressure Mean 59 64 Blood Pressure Mean [Right Arm] Blood Pressure Position Pulse Oximetry 96 Oxygen Delivery Method Nasal Cannula Oxygen Flow Rate 2 Sepsis Recent Fever Within 48 Hours Sepsis New/Unexplained Change in Mental Status Sepsis Action Taken by Nursing 08/24/22 19:15 08/24/22 19:30 08/24/22 19:30 Temperature Temperature Source Pulse Rate 81 Pulse Rate [Apical] Pulse Rate from SpO2 Sensor 81 73 Pulse Rhythm Pulse Strength Respiratory Rate 20 Respiratory Effort / Characteristics Respiratory Depth Blood Pressure 97/46 L Blood Pressure [Right Arm] Blood Pressure Mean 63 Blood Pressure Mean [Right Arm] Blood Pressure Position Pulse Oximetry 97 98 Oxygen Delivery Method Nasal Cannula Nasal Cannula Oxygen Flow Rate 2 2 Sepsis Recent Fever Within 48 Hours Sepsis New/Unexplained Change in Mental Status Sepsis Action Taken by Nursing Laboratory Data Result diagrams: 08/24/22 16:38 08/24/22 16:38 Lab Results 08/24/22 08/24/22 08/24/22 Range/Units 16:38 16:38 16:38 WBC 7.38 (4.8-10.8) K/ul RBC 3.40 L (3.93-5.22) M/uL Hgb 9.2 L (12.0-16.0) g/dl Hct 29.7 L (34.1-44.9) % MCV 87.4 (80.0-100.0) fL MCH 27.1 (25.0-34.0) pg MCHC 31.0 L (32.0-36.0) g/dL RDW Std Deviation 50.0 H (36.4-46.3) fL RDW Coeff of Hope 15.9 H (11.5-14.5) % Plt Count 162 (130-400) K/uL MPV 10.4 (9.4-12.3) fL Immature Gran % (Auto) 0.7 % Neut % (Auto) 90.9 % Lymph % (Auto) 4.1 % [place] % (Auto) 3.9 % Eos % (Auto) 0.1 % Baso % (Auto) 0.3 % Neut # (Auto) 6.71 H (1.4-6.5) K/uL Lymph # (Auto) 0.30 L (1.2-3.4) K/uL [place] # (Auto) 0.29 (0.24-0.82) K/uL Eos # (Auto) 0.01 (0-0.50) K/uL Baso # (Auto) 0.02 (0-0.2) K/uL Immature Gran # (Auto) 0.05 H (0.00-0.02) K/uL Absolute Nucleated RBC 0.02 H (0-0) K/uL Nucleated RBC % (auto) 0.3 % PT 22.7 H (9.0-12.0) Seconds INR 2.2 H (0.9-1.1) APTT 27.8 (21.0-31.0) Seconds PTT Ratio 1.0 Sodium 142 (136-145) mmol/L Potassium 4.1 (3.5-5.1) mmol/L Chloride 109 H (98-107) mmol/L Carbon Dioxide 24 (21-32) mmol/L Anion Gap 9 (3-11) BUN 22 (6-23) mg/dl Creatinine 1.37 H (0.6-1.2) mg/dl Est Cr Clr Drug Dosing 23.3 ml/min Est GFR ( Amer) 39.8 ml/min Est GFR (Non-Af Amer) 34.4 ml/min BUN/Creatinine Ratio 16.1 (10-20) Glucose 160 H (70-99(Fasting)) mg/dl Lactate (0.4-2.0) mmol/L Calcium 8.0 L (8.5-10.1) mg/dl Total Bilirubin 0.6 (0.2-1.0) mg/dl AST 20 (13-39) U/L ALT 13 (7-52) U/L Alkaline Phosphatase 58 (34-104) U/L Troponin I High Sens 12.0 (0-14) pg/ml Total Protein 5.1 L (6.0-8.3) gm/dl Albumin 3.0 L (3.4-5.0) gm/dl Globulin 2.1 L (2.5-4.0) gm/dl Albumin/Globulin Ratio 1.4 (0.9-2) Lipase 50 (11-82) U/L Procalcitonin (0-0.5) ng/ml Urine Color Urine Appearance (Clear) Urine pH (4.5-7.5) Ur Specific [place] (1.000-1.030) Urine Protein (Negative) Urine Glucose (UA) (Negative) Urine Ketones (Negative) Urine Blood (Negative) Urine Nitrite (Negative) Urine Bilirubin (Negative) Urine Urobilinogen (Negative) Ur Leukocyte Esterase (Negative) Urine WBC (Auto) (0-5) /hpf Urine RBC (Auto) (0-4) /hpf U Hyaline Cast (Auto) (0-5) /lpf U Epithel Cells (Auto) (0-5) /lpf Urine Bacteria (Auto) (Negative) Urine Yeast SARS-CoV-2 (PCR) (Negative) Influenza Type A (PCR) (Neg) Influenza Type B (PCR) (Neg) RSV (RT-PCR) (Neg) 08/24/22 08/24/22 08/24/22 Range/Units 16:38 17:02 18:20 WBC (4.8-10.8) K/ul RBC (3.93-5.22) M/uL Hgb (12.0-16.0) g/dl Hct (34.1-44.9) % MCV (80.0-100.0) fL MCH (25.0-34.0) pg MCHC (32.0-36.0) g/dL RDW Std Deviation (36.4-46.3) fL RDW Coeff of Hope (11.5-14.5) % Plt Count (130-400) K/uL MPV (9.4-12.3) fL Immature Gran % (Auto) % Neut % (Auto) % Lymph % (Auto) % [place] % (Auto) % Eos % (Auto) % Baso % (Auto) % Neut # (Auto) (1.4-6.5) K/uL Lymph # (Auto) (1.2-3.4) K/uL [place] # (Auto) (0.24-0.82) K/uL Eos # (Auto) (0-0.50) K/uL Baso # (Auto) (0-0.2) K/uL Immature Gran # (Auto) (0.00-0.02) K/uL Absolute Nucleated RBC (0-0) K/uL Nucleated RBC % (auto) % PT (9.0-12.0) Seconds INR (0.9-1.1) APTT (21.0-31.0) Seconds PTT Ratio Sodium (136-145) mmol/L Potassium (3.5-5.1) mmol/L Chloride (98-107) mmol/L Carbon Dioxide (21-32) mmol/L Anion Gap (3-11) BUN (6-23) mg/dl Creatinine (0.6-1.2) mg/dl Est Cr Clr Drug Dosing ml/min Est GFR ( Amer) ml/min Est GFR (Non-Af Amer) ml/min BUN/Creatinine Ratio (10-20) Glucose (70-99(Fasting)) mg/dl Lactate 1.6 (0.4-2.0) mmol/L Calcium (8.5-10.1) mg/dl Total Bilirubin (0.2-1.0) mg/dl AST (13-39) U/L ALT (7-52) U/L Alkaline Phosphatase (34-104) U/L Troponin I High Sens (0-14) pg/ml Total Protein (6.0-8.3) gm/dl Albumin (3.4-5.0) gm/dl Globulin (2.5-4.0) gm/dl Albumin/Globulin Ratio (0.9-2) Lipase (11-82) U/L Procalcitonin 5.74 H (0-0.5) ng/ml Urine Color Urine Appearance (Clear) Urine pH (4.5-7.5) Ur Specific [place] (1.000-1.030) Urine Protein (Negative) Urine Glucose (UA) (Negative) Urine Ketones (Negative) Urine Blood (Negative) Urine Nitrite (Negative) Urine Bilirubin (Negative) Urine Urobilinogen (Negative) Ur Leukocyte Esterase (Negative) Urine WBC (Auto) (0-5) /hpf Urine RBC (Auto) (0-4) /hpf U Hyaline Cast (Auto) (0-5) /lpf U Epithel Cells (Auto) (0-5) /lpf Urine Bacteria (Auto) (Negative) Urine Yeast SARS-CoV-2 (PCR) NEGATIVE (Negative) Influenza Type A (PCR) Negative (Neg) Influenza Type B (PCR) Negative (Neg) RSV (RT-PCR) Negative (Neg) 08/24/22 Range/Units 18:20 WBC (4.8-10.8) K/ul RBC (3.93-5.22) M/uL Hgb (12.0-16.0) g/dl Hct (34.1-44.9) % MCV (80.0-100.0) fL MCH (25.0-34.0) pg MCHC (32.0-36.0) g/dL RDW Std Deviation (36.4-46.3) fL RDW Coeff of Hope (11.5-14.5) % Plt Count (130-400) K/uL MPV (9.4-12.3) fL Immature Gran % (Auto) % Neut % (Auto) % Lymph % (Auto) % [place] % (Auto) % Eos % (Auto) % Baso % (Auto) % Neut # (Auto) (1.4-6.5) K/uL Lymph # (Auto) (1.2-3.4) K/uL [place] # (Auto) (0.24-0.82) K/uL Eos # (Auto) (0-0.50) K/uL Baso # (Auto) (0-0.2) K/uL Immature Gran # (Auto) (0.00-0.02) K/uL Absolute Nucleated RBC (0-0) K/uL Nucleated RBC % (auto) % PT (9.0-12.0) Seconds INR (0.9-1.1) APTT (21.0-31.0) Seconds PTT Ratio Sodium (136-145) mmol/L Potassium (3.5-5.1) mmol/L Chloride (98-107) mmol/L Carbon Dioxide (21-32) mmol/L Anion Gap (3-11) BUN (6-23) mg/dl Creatinine (0.6-1.2) mg/dl Est Cr Clr Drug Dosing ml/min Est GFR ( Amer) ml/min Est GFR (Non-Af Amer) ml/min BUN/Creatinine Ratio (10-20) Glucose (70-99(Fasting)) mg/dl Lactate (0.4-2.0) mmol/L Calcium (8.5-10.1) mg/dl Total Bilirubin (0.2-1.0) mg/dl AST (13-39) U/L ALT (7-52) U/L Alkaline Phosphatase (34-104) U/L Troponin I High Sens (0-14) pg/ml Total Protein (6.0-8.3) gm/dl Albumin (3.4-5.0) gm/dl Globulin (2.5-4.0) gm/dl Albumin/Globulin Ratio (0.9-2) Lipase (11-82) U/L Procalcitonin (0-0.5) ng/ml Urine Color Yellow Urine Appearance Turbid A (Clear) Urine pH 5.5 (4.5-7.5) Ur Specific [place] 1.015 (1.000-1.030) Urine Protein 2+ H (Negative) Urine Glucose (UA) Negative (Negative) Urine Ketones Negative (Negative) Urine Blood 2+ H (Negative) Urine Nitrite Positive A (Negative) Urine Bilirubin Negative (Negative) Urine Urobilinogen Negative (Negative) Ur Leukocyte Esterase 3+ H (Negative) Urine WBC (Auto) >30 H (0-5) /hpf Urine RBC (Auto) 10-30 H (0-4) /hpf U Hyaline Cast (Auto) 1-5 (0-5) /lpf U Epithel Cells (Auto) >30 H (0-5) /lpf Urine Bacteria (Auto) 4+ H (Negative) Urine Yeast Not Reportable SARS-CoV-2 (PCR) (Negative) Influenza Type A (PCR) (Neg) Influenza Type B (PCR) (Neg) RSV (RT-PCR) (Neg) Administered Medications Discontinued Medications Sodium Chloride (Nss 1000ml) 1,000 mls @ 999 mls/hr IV .Q1H1M STA Stop: 08/24/22 17:55 Last Infusion: 08/24/22 19:44 Dose: 0 mls/hr Documented By: [id number] Admin: 08/24/22 17:19 Dose: 999 mls/hr Documented By: [email or web address] Piperacillin Sod/Tazobactam Sod (Zosyn) 4.5 gm in 120 mls @ 240 mls/hr IV NOW ONE Stop: 08/24/22 18:26 Last Infusion: 08/24/22 18:59 Dose: 0 mls/hr Documented By: [id number] Admin: 08/24/22 18:31 Dose: 240 mls/hr Documented By: [id number] Lactated Ringer's (Lr) 500 mls @ 999 mls/hr IV .Q31M ONE Stop: 08/24/22 18:41 Last Infusion: 08/24/22 19:44 Dose: 0 mls/hr Documented By: [id number] Admin: 08/24/22 18:29 Dose: 999 mls/hr Documented By: [id number] Imaging Data Radiologist's Impression: Abdomen/Pelvis CT 08/24/22 16:[address] WITHOUT CONTRAST CT DOSE: 750.65 mGycm HISTORY: Weakness. Nausea. Vomiting. Fever. TECHNIQUE: Multiaxial CT images of the abdomen and pelvis were performed without contrast. A dose lowering technique was utilized adhering to the principles of ALARA. COMPARISON STUDY: Abdomen and pelvis CT 12/13/2020. FINDINGS: Stable 4 mm subpleural nodule within the right middle lobe on image 1. Stable 4 mm nodule within the left lower lobe on image 10. There are bibasilar densities which favor atelectasis. This is similar to the prior study. No pneumoperitoneum. No pneumatosis. Postoperative changes again noted within the proximal left femur. Levoscoliosis and degenerative changes again noted within the lumbar spine. No acute fractures identified. Mitral annulus and coronary artery calcifications. Cholecystectomy. The spleen remains mildly enlarged. No hepatic masses. The adrenal glands unremarkable. Stable scattered small hypodense cystic lesions within the pancreas. 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 No renal or ureteral stones. No hydronephrosis. Stable bilateral renal hypo and h yperdense lesions. These are incompletely characterized on this study but statistically represent cysts. Tiny fat-containing umbilical hernia again noted. Subcentimeter retroperitoneal lymph nodes remain stable. Calcified plaque within the normal caliber abdominal aorta. There is pelvic floor collapse. The uterus is surgically absent. Bladder wall thickening with adjacent fat stranding persists. Mild circumferential thickening within the sigmoid colon is again noted. There is mild pericolonic fat stranding also present. The descending colon thickening has improved. No evidence for bowel obstruction. Normal appendix. Multiple colonic diverticula. IMPRESSION: 1. Mild circumferential thickening within the majority of the sigmoid colon with mild pericolonic fat stranding. This is similar to the prior study and could represent a colitis versus an acute diverticulitis. Of note, the descending colon thickening on the prior study has resolved. 2. Persistent bladder wall thickening with adjacent fat stranding. This is consistent with a nonspecific cystitis. 4. No evidence for bowel obstruction. 5. Normal appendix. 6. Stable splenomegaly. ACT 112: Negative or not required by law. Electronically signed by: Donato Duval M.D. 08/24/2022 6:08 PM Chest X-Ray 08/24/22 16:55 XR chest 1V portable HISTORY: Fever. Weakness. COMPARISON: Chest 03/15/2022. FINDINGS: No pneumothorax. There are low lung volumes. Bibasilar linear densities persist. These favor subsegmental atelectasis or scarring. The upper lung zones are clear. No evidence for pulmonary edema. The heart remains enlarged. A transvenous an aortic knob calcifications persist. IMPRESSION: No significant change compared to the prior study. No acute process. ACT 112: Negative or not required by law. Electronically signed by: Donato Duval M.D. 08/24/2022 5:[address] 08/24/22 16:[address] DOSE: 638.56 mGycm HISTORY: Weakness. TECHNIQUE: Multiaxial CT images of the head were performed without the use of intravenous contrast. Automated exposure control was utilized for this study. A dose lowering technique was utilized adhering to the principles of ALARA. Comparison: Head CT 08/28/2020. Findings: The paranasal sinuses and mastoid air cells are clear. The calvarium and skull base are intact. There is no mass, hematoma, midline shift, acute infarct. White matter hypodensity is nonspecific but suggestive of microvascular ischemic change. The ventricles and sulci demonstrate mild age-related involutional changes. Impression: No acute intracranial abnormality. ACT 112: Negative or not required by law. Electronically signed by: Donato Duval M.D. 08/24/2022 5:50 PM Discharge Plan Visit Data Chief Complaint: Fever Stated Complaint: fever, low BP ED Provider: Lc Huerta Discharge Problem: Confusion, Sepsis, Diverticulitis, Acute UTI, Weakness Patient Disposition: Admitted As Inpatient Discharge Instructions Interventions: ED Discharge Assessment Last Done: 08/24/22 22:27
[2022-08-24 17:34] LABS: Albumin Globulin Ratio 1.4 (0.9-2); BUN Creatinine Ratio 16.1 (10-20); Bilirubin,Total 0.6 mg/dl (0.2-1.0); Creatinine Clr Calc Pharmacy 23.3 ml/min; Est GFR (African American) 39.8 ml/min; Est GFR (Non-African American) 34.4 ml/min; Globulin 2.1 gm/dl (2.5-4.0); Potassium 4.1 mmol/L (3.5-5.1); Total Protein 5.1 gm/dl (6.0-8.3)
--- NOTE | 2022-08-24 17:52 | CT Scan Report ---
HEAD CT NONCONTRAST CT DOSE: 638.56 mGycm HISTORY: Weakness. TECHNIQUE: Multiaxial CT images of the head were performed without the use of intravenous contrast. A utomated exposure control was utilized for this study. A dose lowering technique was utilized adheri ng to the principles of ALARA. Comparison: Head CT 08/28/2020. Findings: The paranasal sinuses and mastoid air cells are clear. The calvarium and skull base are int act. There is no mass, hematoma, midline shift, acute infarct. White matter hypodensity is nonspecifi c but suggestive of microvascular ischemic change. The ventricles and sulci demonstrate mild age-rela dylon involutional changes. Impression: No acute intracranial abnormality. ACT 112: Negative or not required by law. Electronically signed by: Donato Duval M.D. 08/24/2022 5:50 PM
[2022-08-24] MEDS ORDERED: PIPERACILLIN/TAZOBACTAM 4.5 GM/120 ML BAG IV ONE (17:57)
--- NOTE | 2022-08-24 18:09 | CT Scan Report ---
ABDOMEN AND PELVIS CT WITHOUT CONTRAST CT DOSE: 750.65 mGycm HISTORY: Weakness. Nausea. Vomiting. Fever. TECHNIQUE: Multiaxial CT images of the abdomen and pelvis were performed without contrast. A dose lo wering technique was utilized adhering to the principles of ALARA. COMPARISON STUDY: Abdomen and pelvis CT 12/13/2020. FINDINGS: Stable 4 mm subpleural nodule within the right middle lobe on image 1. Stable 4 mm nodule w ithin the left lower lobe on image 10. There are bibasilar densities which favor atelectasis. This is similar to the prior study. No pneumoperitoneum. No pneumatosis. Postoperative changes again noted w ithin the proximal left femur. Levoscoliosis and degenerative changes again noted within the lumbar s pine. No acute fractures identified. Mitral annulus and coronary artery calcifications. Cholecystecto my. The spleen remains mildly enlarged. No hepatic masses. The adrenal glands unremarkable. Stable sc attered small hypodense cystic lesions within the pancreas. 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 No renal or ureteral stones. No hy dronephrosis. Stable bilateral renal hypo and hyperdense lesions. These are incompletely characterize d on this study but statistically represent cysts. Tiny fat-containing umbilical hernia again noted. Subcentimeter retroperitoneal lymph nodes remain stable. Calcified plaque within the normal caliber a bdominal aorta. There is pelvic floor collapse. The uterus is surgically absent. Bladder wall thicken ing with adjacent fat stranding persists. Mild circumferential thickening within the sigmoid colon is again noted. There is mild pericolonic fat stranding also present. The descending colon thickening h as improved. No evidence for bowel obstruction. Normal appendix. Multiple colonic diverticula. IMPRESSION: 1. Mild circumferential thickening within the majority of the sigmoid colon with mild pericolonic fat stranding. This is similar to the prior study and could represent a colitis versus an acute divertic ulitis. Of note, the descending colon thickening on the prior study has resolved. 2. Persistent bladder wall thickening with adjacent fat stranding. This is consistent with a nonspeci fic cystitis. 4. No evidence for bowel obstruction. 5. Normal appendix. 6. Stable splenomegaly. ACT 112: Negative or not required by law. Electronically signed by: Donato Duval M.D. 08/24/2022 6:08 PM
[2022-08-24] MEDS ORDERED: LACTATED RINGER'S 500 ML IV ONE (18:11)
--- NOTE | 2022-08-24 18:50 | History & Physical Report ---
Date of Service August 24, 2022 Assessment & Plan (1) Confusion: Plan: Seems to be relatively transient as improving even on arrival in the ED and continues to improve though not quite at baseline. May be reaction to the anesthetic used by dentist vs. early urosepsis. - Admit to PCU - Broad-spectrum antibiotics while cultures pending - will continue Zosyn stated in the ED - UA concerning for possible UTI vs. contamination - await culture, continue daily nitrofurantoin - CT in ED with question of diverticulitis vs. colitis. Family reports similar findings on prior admission. Pt currently asymptomatic - no abd pain, no further vomiting or diarrhea. Will trial diet. If recurrent GI symptoms, may consider GI consult but family would like to hold off for now - Repeat procal in the AM - Fall and aspiration precautions - PT/OT evals (2) UTI (urinary tract infection): Plan: See plan for #1 (3) Adverse reaction to anesthetic agent during dental procedure: (4) Hypotension: Plan: Improved s/p IVF in the ED. Will hold additional IVF for now and encourage oral intake as tolerated (5) Paroxysmal A-fib: Plan: Contine beta-maegan, amiodarone (6) Chronic anticoagulation: Plan: Continue warfarin per outpatient clinic directions, monitor INR (7) T2DM (type 2 diabetes mellitus): Plan: Holding oral meds - A1c in AM - Insulin sliding scale - BSG ACHS - Diabetic diet (8) HTN (hypertension): Plan: Initial hypotension - cautiously resume beta-maegan tomorrow if BP adequate (9) HLD (hyperlipidemia): Plan: Hx Statin intolerance (10) Hypothyroidism: Plan: - Continue levothyroxine - TSH in April elevated at 11.3 but free T4 normal. Repeat in AM (11) CKD (chronic kidney disease) stage 4, GFR 15-29 ml/min: Plan Continue other home medications as appropriate. Pt seen and reviewed with collaborating physician, Dr. Duvall. Plan of care discussed and as outlined above. Code Status: Full code DVT Prophylaxis: on chronic warfarin, SCDs Benjamin Hills PA-C History of Present Illness Chief Complaint: Confusion, vomiting, fever Primary Care Provider: Sarah Argueta [facility] This is an 87 y/o female with a PMH of PAF on chronic AC, DM2, CKD4, anemia of chronic disease, hypercholesterolemia w/ hx statin intolerance, hypothyroidism, HTN, prior hip fracture, and hx traumatic SDH who presented to the ED from the dentist today after she became acutely confused during dental work. History from the patient is somewhat limited so additional history obtained from the family at bedside and from review of her chart. Pt was at the dentist to have two crowns done today, received a small amount of articaine, and after they removed the tooth decay, she apparently vomiting x1, developed acute confusion, had two episodes of diarrhea and was febrile so EMS was called. In the ED, her mental status has improved although not quite back to her baseline. She was hypotensive initially on presentation but this has improved with IVF. Yesterday, pt reportedly didn't feel well although she was unable to localize anything specific, appetite was decreased. Since being in the ED, she has had no further vomiting or diarrhea. In fact, she is hungry and asking to eat. She denies abdominal pain or bloating. She has a history of recurrent UTIs for which she is on suppressive daily nitrofurantoin and follows with urology. Per daughter, pt has a history of urosepsis for which she has been admitted previously. Of note, she had a similar reaction the last time she went to the dentist for similar work. She does take prophylactic amoxcillin before dental procedures due to prior hip surgery. She [facility] at [facility]. Allergies Allergy/AdvReac Type Severity Reaction Status Date / Time sulfamethoxazole Allergy Intermediate Rash Verified 04/06/22 17:17 tetanus toxoid, adsorbed Allergy Intermediate HIVES Verified 04/06/22 17:17 tetracycline Allergy Intermediate hives Verified 04/06/22 17:17 trimethoprim Allergy Intermediate Rash Verified 04/06/22 17:17 rosuvastatin AdvReac Intermediate Muscle Verified 04/06/22 17:17 stiffness Home Medications Medication Instructions Recorded Confirmed Type aspirin 81 mg tablet,delayed 81 mg PO 3XWK 10/31/18 08/24/22 History release (Orquidea Low Dose Aspirin) fluticasone propionate 50 2 spray intranasal HS PRN Nasal 10/31/18 08/24/22 History mcg/actuation nasal Congestion spray,suspension (Flonase Allergy Relief) levothyroxine 100 mcg tablet 100 mcg PO DAILYBB 10/31/18 08/24/22 History tamsulosin 0.4 mg capsule (Flomax) 0.4 mg PO HS #90 caps 07/11/19 08/24/22 Rx docusate sodium 100 mg capsule 100 mg PO HS PRN Constipation 06/25/20 08/24/22 History (Col-Rite) glipizide 5 mg tablet 10 mg PO QAM 06/25/20 08/24/22 History rosuvastatin 10 mg tablet 10 mg PO HS 06/25/20 08/24/22 History polyethylene glycol 3350 17 gram 17 g PO DAILY PRN constipation #30 09/05/20 08/24/22 Rx oral powder packet (Miralax) ea cholecalciferol (vitamin D3) 25 50 mcg PO DAILY 11/09/20 08/24/22 History mcg (1,000 unit) tablet (Vitamin D3) sitagliptin phosphate 25 mg tablet 25 mg PO DAILY 11/09/20 08/24/22 History (Januvia) vit C 250 mg-vit E 90 mg-zinc 40 1 tab PO BID 11/09/20 08/24/22 History mg-copper 1 [id number] capsule (PreserVision AREDS-2) warfarin 1 mg tablet 1 mg PO 4XWK 11/09/20 08/24/22 History metoprolol tartrate 25 mg tablet 12.5 mg PO BID #60 tabs 11/18/20 08/24/22 Rx estradiol 0.01% (0.1 mg/gram) 1 g vaginal QPM 12/13/20 08/24/22 History vaginal cream Saccharomyces boulardii 250 mg 250 mg PO DAILY 03/15/22 08/24/22 History capsule acetaminophen 500 mg tablet 500 mg PO Q8H PRN FEVER 03/15/22 08/24/22 History (Tylenol Extra Strength) >100.5/MODERATE PAIN amiodarone 200 mg tablet 200 mg PO QAM 03/15/22 08/24/22 History amoxicillin 500 mg capsule 2,000 mg PO DIRECTED PRN PRIOR 03/15/22 08/24/22 History TO DENTAL APPT. betamethasone valerate 0.12 % 1 applic topical HS 03/15/22 08/24/22 History topical foam diclofenac sodium 1 % topical gel 2 g topical Q12H PRN Pain 03/15/22 08/24/22 History ferrous sulfate 325 mg (65 mg 325 mg PO DAILY 03/15/22 08/24/22 History iron) tablet guaifenesin 600 mg tablet, 600 mg PO Q12H PRN Congestion 03/15/22 08/24/22 History extended release 12 hr hydroxyzine HCl 10 mg tablet 10 mg PO Q6H PRN Anxiety 03/15/22 08/24/22 History ketoconazole 2 % shampoo 1 ea topical 3XWK 03/15/22 08/24/22 History loperamide 2 mg capsule 2 mg PO Q8H PRN Diarrhea 03/15/22 08/24/22 History melatonin 3 mg tablet 3 mg PO HS 03/15/22 08/24/22 History nitrofurantoin 100 mg PO HS 08/24/22 08/24/22 History monohydrate/macrocrystals 100 mg capsule warfarin 1 mg tablet 1.5 mg PO 3XWK 08/24/22 08/24/22 History Past Med/Surg History Medical History (Updated 08/24/22 @ 21:55 by Myra Duvall, ) Acute on chronic anemia CKD (chronic kidney disease) stage 4, GFR 15-29 ml/min Closed left hip fracture s/p repair Gram-negative bacteremia History of COVID-19 History of MRSA infection History of traumatic subdural hematoma HLD (hyperlipidemia) HTN (hypertension) Hypothyroidism Left knee DJD Paroxysmal A-fib Recurrent UTI Sepsis Symptomatic anemia T2DM (type 2 diabetes mellitus) Surgical History History of breast biopsy History of cholecystectomy History of hysterectomy Family History Mother Breast cancer Hypertension Father , at 92 No problems noted. Social History Smoking Status: Never smoker Second Hand Exposure: No; Hx Alcohol Use: No Hx Substance Use: No Preferred Language: Iranian Communication Ability: Effective Modular Set Crew Member Required: No Beliefs That Will Affect Care: None marital status: / Current Living Situation: Personal Care Facility Current Living Situation Comment: Sarah How many Children do You have: 1 other: ambulates with cane Feels Safe at Home: Yes Assistive Devices: Wheelchair Review of Systems Review of Systems: All systems reviewed & are unremarkable except as noted in HPI & below Limited due to residual confusion, poor memory Physical Exam Constitutional: + frail appearing; no acute distress Eyes: + anicteric sclerae ENMT: Mouth: no mouth trauma (no bleeding or purulent drainage) Neck: trachea midline Respiratory: no respiratory distress and no labored breathing Auscultation: lungs clear to auscultation bilaterally; no rales, no rhonchi and no wheezes Cardiovascular: Rate/Rhythm: regular rate and regular rhythm Vessels: brachial pulses present and radial pulses present Extremities: no pedal edema Gastrointestinal (Abdomen): Inspection/Auscultation: normal bowel sounds; abdomen not distended Percussion/Palpation: abdomen soft; abdomen nontender Musculoskeletal: Head/Neck/Chest: normal palpation of chest wall Extremities: no cyanosis Skin: dressing on top of scalp C/D/I from recent Moh's surgery Neurologic: moves all extremities and + confused (mildly confused, able to carry on conversation relatively well); no focal motor deficits Psychiatric: Orientation: alert, oriented to person and oriented to place Results & Data Results & Data ([facility]) Vital Signs (Past 12 Hours) Vital Signs Temp Pulse Pulse Resp BP BP Pulse Ox 08/24/22 17:47 81 16 109/44 L 98 08/24/22 17:25 77 17 93 08/24/22 17:25 87/36 L 08/24/22 17:20 77 19 95 08/24/22 17:18 80 15 96 08/24/22 17:18 83/40 L 08/24/22 17:16 80 18 96 08/24/22 17:16 87/39 L 08/24/22 17:10 86 17 93 08/24/22 17:09 84 19 92 08/24/22 17:09 88/40 L 08/24/22 17:00 83 23 93 08/24/22 17:00 80/37 L 08/24/22 16:57 83 19 91 08/24/22 16:57 85/39 L 08/24/22 16:53 85 26 H 96 08/24/22 16:53 73/40 L 08/24/22 16:50 82 15 95 08/24/22 16:40 86 22 88 L 08/24/22 16:34 87 23 90 08/24/22 16:56 37.0 C 86 20 96/41 L 93 O2 Del Method O2 Flow Rate 08/24/22 17:47 Nasal Cannula 2 08/24/22 17:25 08/24/22 17:25 08/24/22 17:20 08/24/22 17:18 08/24/22 17:18 08/24/22 17:16 08/24/22 17:16 08/24/22 17:10 08/24/22 17:09 08/24/22 17:09 08/24/22 17:00 08/24/22 17:00 08/24/22 16:57 08/24/22 16:57 08/24/22 16:53 08/24/22 16:53 08/24/22 16:50 08/24/22 16:40 08/24/22 16:34 08/24/22 16:56 Nasal Cannula 2 Laboratory Results Laboratory Results - last 24 hr 08/24/22 08/24/22 08/24/22 16:38 16:38 16:38 WBC 7.38 RBC 3.40 L Hgb 9.2 L Hct 29.7 L MCV 87.4 MCH 27.1 MCHC 31.0 L RDW Std Deviation 50.0 H RDW Coeff of Hope 15.9 H Plt Count 162 MPV 10.4 Immature Gran % (Auto) 0.7 Neut % (Auto) 90.9 Lymph % (Auto) 4.1 [place] % (Auto) 3.9 Eos % (Auto) 0.1 Baso % (Auto) 0.3 Neut # (Auto) 6.71 H Lymph # (Auto) 0.30 L [place] # (Auto) 0.29 Eos # (Auto) 0.01 Baso # (Auto) 0.02 Immature Gran # (Auto) 0.05 H Absolute Nucleated RBC 0.02 H Nucleated RBC % (auto) 0.3 PT 22.7 H INR 2.2 H APTT 27.8 PTT Ratio 1.0 Sodium 142 Potassium 4.1 Chloride 109 H Carbon Dioxide 24 Anion Gap 9 BUN 22 Creatinine 1.37 H Est Cr Clr Drug Dosing 23.3 Est GFR ( Amer) 39.8 Est GFR (Non-Af Amer) 34.4 BUN/Creatinine Ratio 16.1 Glucose 160 H Lactate Calcium 8.0 L Total Bilirubin 0.6 AST 20 ALT 13 Alkaline Phosphatase 58 Troponin I High Sens 12.0 Total Protein 5.1 L Albumin 3.0 L Globulin 2.1 L Albumin/Globulin Ratio 1.4 Lipase 50 Procalcitonin Urine Color Urine Appearance Urine pH Ur Specific [place] Urine Protein Urine Glucose (UA) Urine Ketones Urine Blood Urine Nitrite Urine Bilirubin Urine Urobilinogen Ur Leukocyte Esterase SARS-CoV-2 (PCR) Influenza Type A (PCR) Influenza Type B (PCR) RSV (RT-PCR) 08/24/22 08/24/22 08/24/22 16:38 17:02 18:20 WBC RBC Hgb Hct MCV MCH MCHC RDW Std Deviation RDW Coeff of Hope Plt Count MPV Immature Gran % (Auto) Neut % (Auto) Lymph % (Auto) [place] % (Auto) Eos % (Auto) Baso % (Auto) Neut # (Auto) Lymph # (Auto) [place] # (Auto) Eos # (Auto) Baso # (Auto) Immature Gran # (Auto) Absolute Nucleated RBC Nucleated RBC % (auto) PT INR APTT PTT Ratio Sodium Potassium Chloride Carbon Dioxide Anion Gap BUN Creatinine Est Cr Clr Drug Dosing Est GFR ( Amer) Est GFR (Non-Af Amer) BUN/Creatinine Ratio Glucose Lactate 1.6 Calcium Total Bilirubin AST ALT Alkaline Phosphatase Troponin I High Sens Total Protein Albumin Globulin Albumin/Globulin Ratio Lipase Procalcitonin 5.74 H Urine Color Urine Appearance Urine pH Ur Specific [place] Urine Protein Urine Glucose (UA) Urine Ketones Urine Blood Urine Nitrite Urine Bilirubin Urine Urobilinogen Ur Leukocyte Esterase SARS-CoV-2 (PCR) Pending Influenza Type A (PCR) Pending Influenza Type B (PCR) Pending RSV (RT-PCR) Pending 08/24/22 18:20 WBC RBC Hgb Hct MCV MCH MCHC RDW Std Deviation RDW Coeff of Hope Plt Count MPV Immature Gran % (Auto) Neut % (Auto) Lymph % (Auto) [place] % (Auto) Eos % (Auto) Baso % (Auto) Neut # (Auto) Lymph # (Auto) [place] # (Auto) Eos # (Auto) Baso # (Auto) Immature Gran # (Auto) Absolute Nucleated RBC Nucleated RBC % (auto) PT INR APTT PTT Ratio Sodium Potassium Chloride Carbon Dioxide Anion Gap BUN Creatinine Est Cr Clr Drug Dosing Est GFR ( Amer) Est GFR (Non-Af Amer) BUN/Creatinine Ratio Glucose Lactate Calcium Total Bilirubin AST ALT Alkaline Phosphatase Troponin I High Sens Total Protein Albumin Globulin Albumin/Globulin Ratio Lipase Procalcitonin Urine Color Pending Urine Appearance Pending Urine pH Pending Ur Specific [place] Pending Urine Protein Pending Urine Glucose (UA) Pending Urine Ketones Pending Urine Blood Pending Urine Nitrite Pending Urine Bilirubin Pending Urine Urobilinogen Pending Ur Leukocyte Esterase Pending SARS-CoV-2 (PCR) Influenza Type A (PCR) Influenza Type B (PCR) RSV (RT-PCR) Diagnostic Findings CT Abd/Pel 08/24/22 - IMPRESSION: 1. Mild circumferential thickening within the majority of the sigmoid colon with mild pericolonic fat stranding. This is similar to the prior study and could represent a colitis versus an acute diverticulitis. Of note, the descending colon thickening on the prior study has resolved. 2. Persistent bladder wall thickening with adjacent fat stranding. This is consistent with a nonspecific cystitis. 4. No evidence for bowel obstruction. 5. Normal appendix. 6. Stable splenomegaly. Chest X-ray 08/24/22 - IMPRESSION: No significant change compared to the prior [facility]. No acute process. CT head 08/24/22 - Impression: No acute intracranial abnormality. Medications Administered Discontinued Medications Sodium Chloride (Nss 1000ml) 1,000 mls @ 999 mls/hr IV .Q1H1M STA Stop: 08/24/22 17:55 Last Admin: 08/24/22 17:19 Dose: 999 mls/hr Documented By: NMS Piperacillin Sod/Tazobactam Sod (Zosyn) 4.5 gm in 120 mls @ 240 mls/hr IV NOW ONE Stop: 08/24/22 18:26 Last Admin: 08/24/22 18:31 Dose: 240 mls/hr Documented By: [id number] Lactated Ringer's (Lr) 500 mls @ 999 mls/hr IV .Q31M ONE Stop: 08/24/22 18:41 Last Admin: 08/24/22 18:29 Dose: 999 mls/hr Documented By: [id number] Supervising Physician Co-Signing Physician Notes I have seen and examined the patient and have discussed the case with the provider above. I agree with the assessment and plan as stated with the following exceptions. 87 yo F presents with symptoms consistent with a posable allergic reaction to local anesthetic given at the dentist office, similar to a time before. She had a transient facial rash, hypotension requiring IVF in the ER, new oxygen requirement, and vomited once. She also appears to have a UTI which is a recurrent issue for her although the sample is contaminated. Evolving sepsis cannot be ruled out at this time but appears to be less likely. It may be more likely that she had a reaction to anesthesia in the setting of bacteriuria or a developing UTI. Confusion is consistent with acute metabolic encephalopathy. She is anticoagulated on Coumadin for PAF and head CT is clear. Workup revealed CT a/p with possible colitis, similar to last year. She was seen by GI at that time and colonoscopy was recommended. When patient stated that if colon cancer were present, she would not want surgery or chemo, colonoscopy was not recommended. Currently she has no abdominal discomfort and is hungry. Would not pursue additional workup of this given no clinical symptoms to suggest this recently. Cont Zosyn as above. Lungs are clear to auscultation throughout and she is not febrile and vitals are stable. She is speaking clearly with only slight confusion and remembers the day for the most part. No gross neurologic deficits are present. CV exam reveals reg rate and rhythm without murmur. Abdomen is soft, NTND. Moves all extremities equally. Overall agree with plan to continue empiric antibiotics. No further IVF resuscitation required at this time. Cont to eat and drink as tolerated. Consider seeing an substation electrician supervisor as outpatient to discuss these reactions and if possible allergy testing would be helpful. DO Jadiel (1) T2DM (type 2 diabetes mellitus) Chronic kidney disease stage: stage 3 (moderate) Diabetes mellitus complication detail: with chronic kidney disease Diabetes mellitus complication status: with kidney complications Diabetes mellitus termite helper insulin use: without termite helper use Qualified Code(s): E11.22 - Type 2 diabetes mellitus with diabetic chronic kidney disease; N18.3 - Chronic kidney disease, stage 3 (moderate) (2) HLD (hyperlipidemia) Hyperlipidemia type: unspecified Qualified Code(s): E78.5 - Hyperlipidemia, unspecified (3) Hypothyroidism Hypothyroidism type: unspecified Qualified Code(s): E03.9 - Hypothyroidism, unspecified (4) HTN (hypertension) Hypertension type: essential hypertension Qualified Code(s): I10 - Essential (primary) hypertension
[2022-08-24 19:13] LABS: Appearance Urine Turbid (Clear); Bacteria Urine Automated 4+ (Negative); Bilirubin Urine Negative (Negative); Blood Urine 2+ (Negative); Color Urine Yellow; Epithelial Cell Urine Auto >30 /lpf (0-5); Glucose Urine UA Negative (Negative); Ketones Urine Negative (Negative); Leukocyte Esterase Urine 3+ (Negative); Nitrite Urine Positive (Negative); Protein Urine 2+ (Negative); Specific Gravity Urine 1.015 (1.000-1.030); Urobilinogen Urine Negative (Negative); WBC Urine Automated >30 /hpf (0-5); pH Urine 5.5 (4.5-7.5)
[2022-08-24 19:42] LABS: Influenza A virus by PCR Negative (Neg); Influenza B virus by PCR Negative (Neg); RSV by PCR Negative (Neg); SARS CoV2 RNA(COVID-19) Ceph NEGATIVE (Negative)
[2022-08-24] MEDS ORDERED: ACETAMINOPHEN 325 MG TAB PO PRN (23:16)
[2022-08-24] MEDS ORDERED: GLUCOSE 40% GEL 15 GM TUBE PO PRN (23:16)
[2022-08-24] MEDS ORDERED: FLUTICASONE PROPIONATE NA SPR 16 GM BTL PRN (23:16)
[2022-08-24] MEDS ORDERED: GLUCOSE 10 TAB/TUBE PO PRN (23:16)
[2022-08-24] MEDS ORDERED: DEXTROSE 50% 50 ML SYRINGE IV PRN (23:16)
[2022-08-24] MEDS ORDERED: CARBOHYDRATES FOR HYPOGLYCEMIA PO PRN (23:16)
[2022-08-24] MEDS ORDERED: WARFARIN SOD 0.5 MG TAB PO SCH (23:16)
[2022-08-24] MEDS ORDERED: POLYETHYLENE (MIRALAX) 17 GM PACK PO PRN (23:16)
[2022-08-24] MEDS ORDERED: GLUCAGON FOR INJ 1 MG VIAL SQ PRN (23:16)
[2022-08-24] MEDS ORDERED: DOCUSATE SODIUM 100 MG CAP PO PRN (23:16)
[2022-08-25] MEDS: INSULIN ASPART PER UNIT SC SCH ×5 (00:16→20:52)
[2022-08-25] MEDS: METOPROLOL TARTRATE 25 MG TAB PO SCH ×4 (00:17→20:58)
[2022-08-25] MEDS: TAMSULOSIN HCL 0.4 MG CAP PO SCH ×2 (00:17→00:25)
[2022-08-25] MEDS: MELATONIN 3 MG TAB PO SCH ×2 (00:17→20:45)
[2022-08-25] MEDS: ROSUVASTATIN CALCIUM 10 MG TAB PO SCH ×2 (00:18→20:45)
[2022-08-25] MEDS: PIPERACILLIN/TAZOBACTAM 3.375 GM in DEXTROSE 5% 100 ML IV SCH ×3 (04:31→20:01)
[2022-08-25] MEDS: LEVOTHYROXINE SODIUM 100 MCG TABLET PO SCH (05:48)
[2022-08-25 08:28] LABS: Basophils # (auto) 0.02 K/uL (0-0.2); Basophils % (auto) 0.4 %; Eosinophils # (auto) 0.04 K/uL (0-0.50); Eosinophils % (auto) 0.8 %; Hematocrit (blood only) 29.1 % (34.1-44.9); Immature Granulocytes # (auto) 0.02 K/uL (0.00-0.02); Immature Granulocytes % (auto) 0.4 %; Lymphocytes # (auto) 0.62 K/uL (1.2-3.4); Lymphocytes % (auto) 11.9 %; Mean Corpuscular Hemoglobin 27.3 pg (25.0-34.0); Mean Corpuscular Hgb Conc 30.9 g/dL (32.0-36.0); Mean Corpuscular Volume 88.2 fL (80.0-100.0); Mean Platelet Volume 10.5 fL (9.4-12.3); Monocytes % (auto) 5.8 %; Neutrophils # (auto) 4.19 K/uL (1.4-6.5); Neutrophils % (auto) 80.7 %; Platelet Count 143 K/uL (130-400); RDW Coefficient of Variation 16.3 % (11.5-14.5); RDW Standard Deviation 51.6 fL (36.4-46.3); White Blood Count 5.19 K/ul (4.8-10.8)
[2022-08-25 08:39] LABS: INR 2.3 (0.9-1.1); Prothrombin Time 23.9 Seconds (9.0-12.0)
[2022-08-25] MEDS: CHOLECALCIFEROL 1,000 UNITS 25 MCG TAB PO SCH (08:47)
[2022-08-25] MEDS: FERROUS SULFATE 325 MG TAB PO SCH (08:48)
[2022-08-25] MEDS: AMIODARONE 200 MG TAB PO SCH (08:48)
[2022-08-25 08:59] LABS: BUN Creatinine Ratio 17.4 (10-20); Calcium 7.8 mg/dl (8.5-10.1); Creatinine Clr Calc Pharmacy 21.6 ml/min; Potassium 4.3 mmol/L (3.5-5.1)
[2022-08-25] MEDS: SODIUM CHLORIDE 0.9% 1000ML 1,000 ML IV SCH (09:08)
[2022-08-25 11:02] LABS: Estimated Average Glucose 166 mg/dl; Hemoglobin A1C 7.4 % (4.5-5.6)
--- NOTE | 2022-08-25 15:57 | Hospitalist Progress Note ---
Date of Service August 25, 2022 Assessment & Plan (1) Confusion: Plan: Acute Metabolic Encephalopathy Likely due to UTI, anesthetic during dental procedure --CT Head:No acute intracranial abnormality. Mental status back to baseline UTI CT suggestive of cystitis Urine culture growing gram-negative bacilli Blood culture pending Continue Zosyn for now Diarrhea CT suggestive of mild circumferential thickening within the majority of the s igmoid colon with mild pericolonic fat stranding suggestive of possible colitis versus acute diverticulitis Continue Zosyn for now Currently patient denies any abdominal pain Stool studies pending Consider surgical evaluation. Continue IV fluids (2) UTI (urinary tract infection): Plan: as above (3) Adverse reaction to anesthetic agent during dental procedure: (4) Hypotension: Plan: Continue IV fluids (5) Paroxysmal A-fib: Plan: Continue metoprolol, amiodarone INR therapeutic Continue Coumadin (6) Chronic anticoagulation: Plan: Monitor INR (7) T2DM (type 2 diabetes mellitus): Plan: Holding oral meds -Hb A1c 7.4 -Insulin sliding scale -BSG ACHS (8) HTN (hypertension): Plan: On Metoprolol with holding parameter (9) HLD (hyperlipidemia): Plan: Hx Statin intolerance (10) Hypothyroidism: Plan: Normal TSH - Continue levothyroxine (11) CKD (chronic kidney disease) stage 4, GFR 15-29 ml/min: Plan: Cr at baseline Monitor renal function Plan DVT Px: Coumadin Code Status: Full code Admission and Anticipated Discharge Date Admission Date: August 24, 2022 Subjective Patient is seen and examined bedside Patient is oriented and mental status is at baseline Complains of minimal dysuria Denies any chest pain, dyspnea, dizziness, nausea, abdominal pain Eager to get discharged Urine culture growing gram-negative bacilli Review of Systems Review of Systems: All systems reviewed & are unremarkable except as noted in Subjective Physical Exam Physical Exam: Physical Exam: Vitals signs as noted above General Appearance:Frail, Elderly, no apparent distress Head: normocephalic, Atraumatic Eyes: normal inspection, EOMI Neck: supple, Trachea midline Respiratory/Chest: Normal breath sounds, CTA Cardiovascular: S1, S2, +murmur Abdomen/GI:Soft, Non tender, Bowel sounds present Extremities/Musculoskeletal:normal inspection, no edema Neurologic/Psych:AAOX3, grossly no focal neurological deficits Skin: normal color, warm Results & Data Results & Data (MN) Vital Signs (Past 12 Hours) Vital Signs Temp Pulse Pulse Resp BP Pulse Ox Pulse Ox 08/25/22 15:16 36.6 C 70 16 98/42 L 96 08/25/22 13:10 96 08/25/22 11:50 36.9 C 73 15 95/59 L 96 08/25/22 08:51 99/41 L 08/25/22 07:39 70 08/25/22 07:39 08/25/22 07:25 36.7 C 71 17 94/40 L 97 Pulse Ox Pulse Ox O2 Del Method O2 Flow Rate O2 Flow Rate O2 Flow Rate O2 Flow Rate 08/25/22 15:16 Room Air 08/25/22 13:10 96 93 0 0 0 08/25/22 11:50 Room Air 08/25/22 08:51 08/25/22 07:39 08/25/22 07:39 Room Air 08/25/22 07:25 Nasal Cannula 1 Laboratory Results Short CBC 08/24/22 08/25/22 Range/Units 16:38 07:58 WBC 7.38 5.19 (4.8-10.8) K/ul Hgb 9.2 L 9.0 L (12.0-16.0) g/dl Hct 29.7 L 29.1 L (34.1-44.9) % Plt Count 162 143 (130-400) K/uL BMP 08/24/22 08/25/22 16:38 07:58 Sodium 142 141 Potassium 4.1 4.3 Chloride 109 H 108 H Carbon Dioxide 24 28 BUN 22 26 H Creatinine 1.37 H 1.49 H Glucose 160 H 148 H Calcium 8.0 L 7.8 L Liver Function 08/24/22 Range/Units 16:38 Total Bilirubin 0.6 (0.2-1.0) mg/dl AST 20 (13-39) U/L ALT 13 (7-52) U/L Alkaline Phosphatase 58 (34-104) U/L Albumin 3.0 L (3.4-5.0) gm/dl Urine 08/24/22 Range/Units 18:20 Urine Color Yellow Urine Appearance Turbid A (Clear) Urine pH 5.5 (4.5-7.5) Ur Specific [place] 1.015 (1.000-1.030) Urine Protein 2+ H (Negative) Urine Glucose (UA) Negative (Negative) (1) T2DM (type 2 diabetes mellitus) Diabetes mellitus terminal manager insulin use: without skilled nursing use Diabetes mellitus complication status: with kidney complications Diabetes mellitus complication detail: with chronic kidney disease Chronic kidney disease stage: stage 3 (moderate) Qualified Code(s): E11.22 - Type 2 diabetes mellitus with diabetic chronic kidney disease; N18.3 - Chronic kidney disease, stage 3 (moderate) (2) HTN (hypertension) Hypertension type: essential hypertension Qualified Code(s): I10 - Essential (primary) hypertension (3) HLD (hyperlipidemia) Hyperlipidemia type: unspecified Qualified Code(s): E78.5 - Hyperlipidemia, unspecified (4) Hypothyroidism Hypothyroidism type: unspecified Qualified Code(s): E03.9 - Hypothyroidism, unspecified
[2022-08-25] MEDS ORDERED: WARFARIN SOD 1 MG TAB PO SCH (16:00)
--- NOTE | 2022-08-25 16:32 | Electrocardiogram Report ---
Test Reason : Blood Pressure : / mmHG Vent. Rate : 086 BPM Atrial Rate : 086 BPM P-R Int : 172 ms QRS Dur : 098 ms QT Int : 392 ms P-R-T Axes : 071 -52 018 degrees QTc Int : 469 ms Normal sinus rhythm Left axis deviation Incomplete right bundle branch block Abnormal ECG When compared with ECG of 06-APR-2022 15:29, No significant change was found Confirmed by Mich Rico ([id number]) on 08/25/2022 4:31:56 PM Referred By: REFERRED SELF Confirmed By:Mich Rico
[2022-08-26] MEDS: SODIUM CHLORIDE 0.9% 1000ML 1,000 ML IV SCH (01:38)
[2022-08-26] MEDS: PIPERACILLIN/TAZOBACTAM 3.375 GM in DEXTROSE 5% 100 ML IV SCH (04:45)
[2022-08-26] MEDS: LEVOTHYROXINE SODIUM 100 MCG TABLET PO SCH (05:49)
[2022-08-26 07:06] LABS: Hematocrit (blood only) 28.4 % (34.1-44.9); Hemoglobin 8.8 g/dl (12.0-16.0); Mean Corpuscular Hemoglobin 26.7 pg (25.0-34.0); Mean Corpuscular Volume 86.3 fL (80.0-100.0); Mean Platelet Volume 10.7 fL (9.4-12.3); Platelet Count 146 K/uL (130-400); RDW Coefficient of Variation 16.3 % (11.5-14.5); Red Blood Count 3.29 M/uL (3.93-5.22); White Blood Count 4.81 K/ul (4.8-10.8)
[2022-08-26] MEDS: INSULIN ASPART PER UNIT SC SCH ×2 (07:38→12:38)
[2022-08-26 07:41] LABS: Calcium 7.9 mg/dl (8.5-10.1); Creatinine Clr Calc Pharmacy 24.3 ml/min; Est GFR (African American) 41.6 ml/min; Est GFR (Non-African American) 35.9 ml/min; Magnesium 1.7 mg/dl (1.7-2.4); Potassium 3.9 mmol/L (3.5-5.1)
[2022-08-26 07:51] LABS: INR 2.1 (0.9-1.1); Prothrombin Time 21.5 Seconds (9.0-12.0)
[2022-08-26] MEDS ORDERED: cefTRIAXone SODIUM 1,000 MG in DEXTROSE 5% AD-VAN 50 ML IV SCH (08:00)
[2022-08-26] MEDS: METOPROLOL TARTRATE 25 MG TAB PO SCH (08:01)
[2022-08-26] MEDS: FERROUS SULFATE 325 MG TAB PO SCH (08:01)
[2022-08-26] MEDS: AMIODARONE 200 MG TAB PO SCH (08:01)
[2022-08-26] MEDS: CHOLECALCIFEROL 1,000 UNITS 25 MCG TAB PO SCH (08:01)
[2022-08-26] MEDS ORDERED: ASPIRIN 81 MG ECTAB PO SCH (09:00)
--- NOTE | 2022-08-26 11:36 | Discharge Summary ---
Date of Service August 26, 2022 Admission HPI Per Admitting Provider This is an 87 y/o female with a PMH of PAF on chronic AC, DM2, CKD4, anemia of chronic disease, hypercholesterolemia w/ hx statin intolerance, hypothyroidism, HTN, prior hip fracture, and hx traumatic SDH who presented to the ED from the dentist today after she became acutely confused during dental work. History from the patient is somewhat limited so additional history obtained from the family at bedside and from review of her chart. Pt was at the dentist to have two crowns done today, received a small amount of articaine, and after they removed the tooth decay, she apparently vomiting x1, developed acute confusion, had two episodes of diarrhea and was febrile so EMS was called. In the ED, her mental status has improved although not quite back to her baseline. She was hypotensive initially on presentation but this has improved with IVF. Yesterday, pt reportedly didn't feel well although she was unable to localize anything specific, appetite was decreased. Since being in the ED, she has had no further vomiting or diarrhea. In fact, she is hungry and asking to eat. She denies abdominal pain or bloating. She has a history of recurrent UTIs for which she is on suppressive daily nitrofurantoin and follows with urology. Per daughter, pt has a history of urosepsis for which she has been admitted previously. Of note, she had a similar reaction the last time she went to the dentist for similar work. She does take prophylactic amoxcillin before dental procedures due to prior hip surgery. She lives at [facility]. Admission Exam Per Admitting Provider Constitutional: + frail appearing; no acute distress Eyes: + anicteric sclerae ENMT: Mouth: no mouth trauma (no bleeding or purulent drainage) Neck: trachea midline Respiratory: no respiratory distress and no labored breathing Auscultation: lungs clear to auscultation bilaterally; no rales, no rhonchi and no wheezes Cardiovascular: Rate/Rhythm: regular rate and regular rhythm Vessels: brachial pulses present and radial pulses present Extremities: no pedal edema Gastrointestinal (Abdomen): Inspection/Auscultation: normal bowel sounds; abdomen not distended Percussion/Palpation: abdomen soft; abdomen nontender Musculoskeletal: Head/Neck/Chest: normal palpation of chest wall Extremities: no cyanosis Skin: dressing on top of scalp C/D/I from recent Moh's surgery Neurologic: moves all extremities and + confused (mildly confused, able to carry on conversation relatively well); no focal motor deficits Psychiatric: Orientation: alert, oriented to person and oriented to place Principal Diagnosis urinary tract infection Discharge Exam Constitutional: + frail appearing; no acute distress Eyes: anicteric sclerae ENMT: Mouth: no mouth trauma (no bleeding or purulent drainage) Neck: trachea midline Respiratory: no respiratory distress and no labored breathing Auscultation: lungs clear to auscultation bilaterally; no rales, no rhonchi and no wheezes Cardiovascular: Rate/Rhythm: regular rate and regular rhythm Vessels: brachial pulses present and radial pulses present Extremities: no pedal edema Gastrointestinal (Abdomen): Inspection/Auscultation: normal bowel sounds; abdomen not distended Percussion/Palpation: abdomen soft; abdomen nontender Musculoskeletal: Head/Neck/Chest: normal palpation of chest wall Extremities: no cyanosis Skin: dressing on top of scalp C/D/I from recent [facility] surgery Neurologic: moves all extremities, awake and alert; no focal motor deficits Psychiatric: Orientation: alert, oriented to person and oriented to place. weepy about urinary incontinence but otherwise doing well Discharge Data Allergies Allergy/AdvReac Type Severity Reaction Status Date / Time sulfamethoxazole Allergy Intermediate Rash Verified 04/06/22 17:17 tetanus toxoid, adsorbed Allergy Intermediate HIVES Verified 04/06/22 17:17 tetracycline Allergy Intermediate hives Verified 04/06/22 17:17 trimethoprim Allergy Intermediate Rash Verified 04/06/22 17:17 rosuvastatin AdvReac Intermediate Muscle Verified 04/06/22 17:17 stiffness Consultations 08/24/22 18:37 ED Decision to Admit Stat Ordered Studies 08/24/22 16:55 CT abd pelvis wo con Stat CT head/brain wo con Stat Hospital Course (1) Confusion: Acute Metabolic Encephalopathy Likely due to UTI, anesthetic during dental procedure --CT Head:No acute intracranial abnormality. Mental status back to baseline UTI CT suggestive of cystitis Urine culture growing E coli - not pansensitive but sensitive to Ceftriaxone - discharge are cefdinir for 7 day course Blood culture NGTD after >[address] suggestive of mild circumferential thickening within the majority of the sigmoid colon with mild pericolonic fat stranding suggestive of possible colitis versus acute diverticulitis - seems chronic as she is prescribed loperamide as outpatient Currently patient denies any abdominal pain Stool studies pending (2) UTI (urinary tract infection): as above (3) Adverse reaction to anesthetic agent during dental procedure: (4) Hypotension: Continue IV fluids (5) Paroxysmal A-fib: Continue metoprolol, amiodarone INR therapeutic Continue Coumadin (6) Chronic anticoagulation: Monitor INR (7) T2DM (type 2 diabetes mellitus): Holding oral meds -Hb A1c 7.4 -Insulin sliding scale -BSG ACHS (8) HTN (hypertension): On Metoprolol with holding parameter (9) HLD (hyperlipidemia): Hx Statin intolerance (10) Hypothyroidism: Normal TSH - Continue levothyroxine (11) CKD (chronic kidney disease) stage 4, GFR 15-29 ml/min: Cr at baseline Monitor renal function Plan DVT Px: Coumadin Code Status: Full code Total Time Total Time Spent Total Time Spent (In Minutes): 25 Total Time Includes: Examination of the Patient, Discharge Planning and Medication Reconciliation Discharge Plan Discharge Items Patient Disposition: [facility] Reason For Visit: UTI, CONFUSION Discharge Diagnosis: UTI Activity: Resume your previous activity Non-emergency contact: Primary Care Provider and Urologist Call non-emergency contact if: you have any medication questions and your symptoms worsen Follow-up/Referrals: Luis Whalen DO [Physician] - Kendlal Smith [facility] [Primary Care Provider] - Diet: Carb Consistent or DM2 and Heart Healthy Addtl Attending Provider Instructions: You were admitted for an episode of confusion. Found to have a urinary tract infection and started on antibiotics with improvement. You were seen by physical therapy and found you were at your baseline physical status and can return to your personal fdc without any changes to activity levels. You will continue antibiotics with cefdinir until 08/31/2022. Please follow up with your primary care doctor within 1 week of discharge. Pending Studies at Discharge: Yes Studies:: final blood culture results Stand-Alone Forms: My Pocits, Smoking Cessation Skilled Items Patient informed of condition?: Yes DNR: No Discharge Level of Care: Other Communicable Disease: No Discharge Prognosis: Stable Lines: None Urinary Catheter: No Medications and DC Order Prescriptions: New cefdinir 300 mg capsule 300 mg PO BID Qty: 12 0RF Continued tamsulosin [Flomax] 0.4 mg capsule 0.4 mg PO HS Qty: 90 3RF aspirin [Orquidea Low Dose Aspirin] 81 mg Tablet,Delayed Release (Dr/Ec) 81 mg PO 3XWK Rx Instructions: TAKE THIS MEDICATION EVERY WEDNESDAY,WEDNESDAY AND WEDNESDAY fluticasone propionate [Flonase Allergy Relief] 50 mcg/actuation [place],Suspension 2 spray INTRANASAL HS PRN (Reason: Nasal Congestion) levothyroxine 100 mcg tablet 100 mcg PO DAILYBB Rx Instructions: TAKE THIS MEDICATION AT LEAST 30 MINUTES BEFORE BREAKFAST OR ANY OTHER MEDICATIONS docusate sodium [Col-Rite] 100 mg capsule 100 mg PO HS PRN (Reason: Constipation) glipizide 5 mg tablet 10 mg PO QAM rosuvastatin 10 mg tablet 10 mg PO HS polyethylene glycol 3350 [Miralax] 17 gram Powder In Packet 17 g PO DAILY PRN (Reason: constipation) Qty: 30 0RF warfarin 1 mg Tablet 1 mg PO 4XWK Rx Instructions: /// cholecalciferol (vitamin D3) [Vitamin D3] 25 mcg (1,000 unit) Tablet 50 mcg PO DAILY Januvia 25 mg tablet 25 mg PO DAILY PreserVision AREDS-2 250-90-40-1 mg Capsule 1 tab PO BID metoprolol tartrate 25 mg Tablet 12.5 mg PO BID Qty: 60 0RF estradiol 0.01 % (0.1 mg/gram) cream 1 g VAGINAL QPM amoxicillin 500 mg Capsule 2,000 mg PO DIRECTED PRN (Reason: PRIOR TO DENTAL APPT.) ketoconazole 2 % Shampoo 1 ea TOPICAL 3XWK Rx Instructions: USES WED, WED, & WED. loperamide 2 mg Capsule 2 mg PO Q8H PRN (Reason: Diarrhea) melatonin 3 mg Tablet 3 mg PO HS acetaminophen [Tylenol Extra Strength] 500 mg Tablet 500 mg PO Q8H PRN (Reason: FEVER >100.5/MODERATE PAIN) ferrous sulfate 325 mg (65 mg iron) Tablet 325 mg PO DAILY betamethasone valerate 0.12 % foam 1 applic TOPICAL HS Rx Instructions: APPLY TO SCALP hydroxyzine HCl 10 mg Tablet 10 mg PO Q6H PRN (Reason: Anxiety) Saccharomyces boulardii 250 mg Capsule 250 mg PO DAILY diclofenac sodium 1 % Gel 2 g TOPICAL Q12H PRN (Reason: Pain) guaifenesin 600 mg Tablet Extended Release 12hr 600 mg PO Q12H PRN (Reason: Congestion) amiodarone 200 mg tablet 200 mg PO QAM warfarin 1 mg tablet 1.5 mg PO 3XWK Rx Instructions: M/W/F nitrofurantoin monohyd/m-cryst 100 mg capsule 100 mg PO HS Discharge Orders: Discharge Order (Routine); Ordered 08/26/22 Ordered By: Haroldo Monroe Admission Data Admit Date/Time: 08/24/22 19:35 Attending Provider: Haroldo Monroe Admit Provider: Myra Duvall Primary Care Provider: Kendall Smith [place] Other Providers: Myra Duvall
[2022-08-26 11:38] LABS: Adenovirus F 40/41 PCR Not Detected (NotDetected); Astrovirus PCR Not Detected (NotDetected); Campylobacter PCR Not Detected (NotDetected); Cryptosporidium PCR Not Detected (NotDetected); Cyclospora cayetanensis PCR Not Detected (NotDetected); Entamoeba histolytica PCR Not Detected (NotDetected); Enteroaggregative E.coli(EAEC) Not Detected (NotDetected); Enteropathogenic E.coli (EPEC) Not Detected (NotDetected); Enterotoxigenic E.coli (ETEC) Not Detected (NotDetected); Giardia lamblia PCR Not Detected (NotDetected); Norovirus GI/GII PCR Not Detected (NotDetected); Plesiomonas shigelloides PCR Not Detected (NotDetected); Rotavirus A PCR Not Detected (NotDetected); Salmonella PCR Not Detected (NotDetected); Sapovirus PCR Not Detected (NotDetected); Shiga-like Toxin E.coli (STEC) Not Detected (NotDetected); Shigella/Enteroinvasive E.coli Not Detected (NotDetected); Vibrio cholerae PCR Not Detected (NotDetected); Vibrio species PCR Not Detected (NotDetected); Yersinia enterocolitica PCR Not Detected (NotDetected)
[2022-08-26] MEDS ORDERED: CEFEPIME 1,000 MG in SYRINGE 0 ML IV SCH (14:00)
[2022-08-26 14:36] LABS: Cdiff Antigen Positive; Cdiff Toxin A+B Negative Cdiff Toxin (Negative)
== END 2022-08-26 16:21 | disposition home or self-care (01) | DRG 689 ==
LOC: ED 16:22 → SUATTDRO 19:35 → 2E 19:35

== ENCOUNTER 2022-10-08 08:58 | Inpatient (IN) ==
--- NOTE | 2022-10-08 09:30 | Emergency Department Note ---
Impression & Plan Hematuria ADMIT ED Provider Note HPI: The patient is an 87-year-old female who presents to the emergency department with a chief complaint of vaginal bleeding. Patient states this developed overnight. She does have a history of paroxysmal atrial fibrillation and is c urrently on Coumadin. On arrival here to the ED the patient is very frail appearing but she is alert, she is hemodynamically stable, she denies any focal complaint of pain. ROS: - Per HPI *Outpatient medications and allergy history reviewed. *Pertinent external medical records reviewed. PE: General: Alert, frail appearing HEENT: Normocephalic, trachea midline Eyes: Extraocular eye movement is intact, no scleral erythema Pulmonary: Clear to auscultation bilaterally, no wheezing Cardio: Regular rate and rhythm GI: Abdomen is soft, nontender : No suprapubic tenderness MSK: No evidence of trauma or malformation of the extremities, no edema Skin: No evidence of rash Neuro: Alert, no focal deficits Psychiatric: Cooperative Pelvic exam: Verbal consent obtained from the patient and family at the bedside Exam performed with female RN present at the bedside External genitalia normal without lesions Internal exam is absent any lesions there is a moderate amount of pooled blood within the vaginal vault, nonvisualization of the cervix fish pitcher: - An order was placed for continuous cardiac monitoring - Patient was noted to be in sinus rhythm with a rate of 85 EKG: (As interpreted by myself): Rate: 106 Rhythm: Sinus tachycardia Intervals: Within normal limits ST changes: No ST elevation Time: 0907 Interventions provided in ED: -IV fluid bolus, vitamin K Medical Decision Making: Patient presented to the emergency department with "vaginal bleeding". On pelvic exam and is unclear if the patient is having active vaginal bleeding, she does have some blood pooling within the vaginal vault although she has a history of a hysterectomy. IV was established, lab work obtained, patient's hemoglobin is stable at 9.5 which is near baseline for anemia history. INR is therapeutic at 2.9. CT imaging of the abdomen pelvis without contrast was obtained that shows some heterogenous material within the bladder concerning for possible blood products/clots. Velásquez catheter was then placed and patient does have gross hematuria, multiple blood clots were irrigated and the patient has approximately 200 cc of gross hematuria within the Velásquez catheter bag. I discussed the above findings with on-call urology, Jennifer (midlevel provider with Dr. Schmidt), and they are in agreement for consultation for further management and possible cystoscopy if determined appropriate. Patient's urine shows blood and leukocyte Estrace but is nitrite negative. She will be covered with IV ceftriaxone over concern for possible hemorrhagic cystitis. She was also given a dose of vitamin K given active bleeding with therapeutic INR. I discussed all the above with the patient and her daughter and son-in-law at the bedside. They are in agreement for admission. Case was then discussed with the on-call midlevel provider for the [facility] service and the patient was placed for admission in stable condition. Disposition discussion held by myself with: Patient, patient's daughter, patient's son-in-law at the bedside Diagnosis: 1. Gross hematuria 2. Therapeutic INR 3. Anemia, chronic Disposition: Admission Herman Perez DO Emergency Medicine Past Med/Surg History Medical History Acute on chronic anemia CKD (chronic kidney disease) stage 4, GFR 15-29 ml/min Closed left hip fracture s/p repair Gram-negative bacteremia History of COVID-19 History of MRSA infection History of traumatic subdural hematoma HLD (hyperlipidemia) HTN (hypertension) Hypothyroidism Left knee DJD Paroxysmal A-fib Recurrent UTI Sepsis Symptomatic anemia T2DM (type 2 diabetes mellitus) Surgical History History of breast biopsy History of cholecystectomy History of hysterectomy Family History Mother Breast cancer Hypertension Father , at 92 No problems noted. 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 How many Children do You have: 1 other: ambulates with cane Feels Safe at Home: Yes Assistive Devices: Wheelchair Allergies Allergies Allergy/AdvReac Type Severity Reaction Status Date / Time sulfamethoxazole Allergy Intermediate Rash Verified 04/06/22 17:17 tetanus toxoid, adsorbed Allergy Intermediate HIVES Verified 04/06/22 17:17 tetracycline Allergy Intermediate hives Verified 04/06/22 17:17 trimethoprim Allergy Intermediate Rash Verified 04/06/22 17:17 rosuvastatin AdvReac Intermediate Muscle Verified 04/06/22 17:17 stiffness amoxicillin Allergy Intermediate Uncoded 10/08/22 09:12 Home Meds Home Medications Medication Instructions Recorded Confirmed aspirin 81 mg tablet,delayed 81 mg PO 3XWK 10/31/18 10/08/22 release (Orquidea Low Dose Aspirin) fluticasone propionate 50 2 spray intranasal HS PRN Nasal 10/31/18 10/08/22 mcg/actuation nasal Congestion spray,suspension (Flonase Allergy Relief) levothyroxine 100 mcg tablet 100 mcg PO DAILYBB 10/31/18 10/08/22 docusate sodium 100 mg capsule 100 mg PO HS PRN Constipation 06/25/20 10/08/22 (Col-Rite) glipizide 5 mg tablet 10 mg PO QAM 06/25/20 10/08/22 rosuvastatin 10 mg tablet 10 mg PO HS 06/25/20 10/08/22 cholecalciferol (vitamin D3) 25 50 mcg PO DAILY 11/09/20 10/08/22 mcg (1,000 unit) tablet (Vitamin D3) sitagliptin phosphate 25 mg tablet 25 mg PO DAILY 11/09/20 10/08/22 (Januvia) vit C 250 mg-vit E 90 mg-zinc 40 1 tab PO BID 11/09/20 10/08/22 mg-copper 1 [id number] capsule (PreserVision AREDS-2) warfarin 1 mg tablet 1 mg PO 4XWK 11/09/20 10/08/22 estradiol 0.01% (0.1 mg/gram) 1 g vaginal QPM 12/13/20 10/08/22 vaginal cream Saccharomyces boulardii 250 mg 250 mg PO DAILY 03/15/22 10/08/22 capsule acetaminophen 500 mg tablet 500 mg PO Q8H PRN FEVER 03/15/22 10/08/22 (Tylenol Extra Strength) >100.5/MODERATE PAIN amiodarone 200 mg tablet 200 mg PO QAM 03/15/22 10/08/22 amoxicillin 500 mg capsule 2,000 mg PO DIRECTED PRN PRIOR 03/15/22 10/08/22 TO DENTAL APPT. betamethasone valerate 0.12 % 1 applic topical HS 03/15/22 10/08/22 topical foam diclofenac sodium 1 % topical gel 2 g topical Q12H PRN Pain 03/15/22 10/08/22 ferrous sulfate 325 mg (65 mg 325 mg PO DAILY 03/15/22 10/08/22 iron) tablet guaifenesin 600 mg tablet, 600 mg PO Q12H PRN Congestion 03/15/22 10/08/22 extended release 12 hr hydroxyzine HCl 10 mg tablet 10 mg PO Q6H PRN Anxiety 03/15/22 10/08/22 ketoconazole 2 % shampoo 1 ea topical 3XWK 03/15/22 10/08/22 loperamide 2 mg capsule 2 mg PO Q8H PRN Diarrhea 03/15/22 10/08/22 melatonin 3 mg tablet 3 mg PO HS 03/15/22 10/08/22 nitrofurantoin 100 mg PO HS 08/24/22 10/08/22 monohydrate/macrocrystals 100 mg capsule warfarin 1 mg tablet 1.5 mg PO 3XWK 08/24/22 10/08/22 Previous Rx's Medication Instructions Recorded tamsulosin 0.4 mg capsule (Flomax) 0.4 mg PO HS #90 caps 07/11/19 polyethylene glycol 3350 17 gram 17 g PO DAILY PRN constipation #30 09/05/20 oral powder packet (Miralax) ea metoprolol tartrate 25 mg tablet 12.5 mg PO BID #60 tabs 11/18/20 Results & Data (ED) Vital Signs Vital Signs - 24 hr 10/08/22 09:14 10/08/22 09:14 10/08/22 09:20 Temperature 36.8 C Temperature Source Oral Pulse Rate 91 H 90 102 H Pulse Rate [Right Finger] Respiratory Rate 18 26 H 22 Respiratory Effort / Characteristics Non-Labored Spontaneous Respiratory Depth Normal Respiratory Pattern Regular Blood Pressure 113/50 L Blood Pressure [Right Arm] Blood Pressure Mean 71 Blood Pressure Mean [Right Arm] Blood Pressure Position Lying Pulse Oximetry 96 Oxygen Delivery Method Room Air Room Air Room Air Sepsis Recent Fever Within 48 Hours No Sepsis New/Unexplained Change in Mental Status No Sepsis Action Taken by Nursing No Action Required 10/08/22 09:30 10/08/22 09:40 10/08/22 09:50 Temperature Temperature Source Pulse Rate 91 H 102 H 103 H Pulse Rate [Right Finger] Respiratory Rate 24 21 21 Respiratory Effort / Characteristics Respiratory Depth Respiratory Pattern Blood Pressure Blood Pressure [Right Arm] Blood Pressure Mean Blood Pressure Mean [Right Arm] Blood Pressure Position Pulse Oximetry Oxygen Delivery Method Room Air Room Air Room Air Sepsis Recent Fever Within 48 Hours Sepsis New/Unexplained Change in Mental Status Sepsis Action Taken by Nursing 10/08/22 10:00 10/08/22 10:10 10/08/22 10:18 Temperature Temperature Source Pulse Rate 103 H 92 H Pulse Rate [Right Finger] Respiratory Rate 22 23 Respiratory Effort / Characteristics Respiratory Depth Respiratory Pattern Blood Pressure 105/53 L Blood Pressure [Right Arm] Blood Pressure Mean 70 Blood Pressure Mean [Right Arm] Blood Pressure Position Pulse Oximetry Oxygen Delivery Method Room Air Room Air Room Air Sepsis Recent Fever Within 48 Hours Sepsis New/Unexplained Change in Mental Status Sepsis Action Taken by Nursing 10/08/22 10:18 10/08/22 10:20 10/08/22 11:25 Temperature Temperature Source Pulse Rate 93 H 93 H Pulse Rate [Right Finger] 88 Respiratory Rate 19 16 24 Respiratory Effort / Characteristics Non-Labored Respiratory Depth Normal Respiratory Pattern Blood Pressure Blood Pressure [Right Arm] 98/41 L Blood Pressure Mean Blood Pressure Mean [Right Arm] 60 Blood Pressure Position Pulse Oximetry 92 Oxygen Delivery Method Room Air Room Air Room Air Sepsis Recent Fever Within 48 Hours Sepsis New/Unexplained Change in Mental Status Sepsis Action Taken by Nursing Laboratory Data 10/08/22 09:10 10/08/22 09:10 Lab Results 10/08/22 10/08/22 10/08/22 Range/Units 09:10 09:10 09:10 WBC 12.32 H (4.8-10.8) K/ul RBC 3.63 L (3.93-5.22) M/uL Hgb 9.5 L (12.0-16.0) g/dl Hct 30.9 L (34.1-44.9) % MCV 85.1 (80.0-100.0) fL MCH 26.2 (25.0-34.0) pg MCHC 30.7 L (32.0-36.0) g/dL RDW Std Deviation 48.7 H (36.4-46.3) fL RDW Coeff of Hope 15.9 H (11.5-14.5) % Plt Count 180 (130-400) K/uL MPV 11.0 (9.4-12.3) fL Immature Gran % (Auto) 0.5 % Neut % (Auto) 82.8 % Lymph % (Auto) 9.7 % [place] % (Auto) 6.2 % Eos % (Auto) 0.5 % Baso % (Auto) 0.3 % Neut # (Auto) 10.20 H (1.4-6.5) K/uL Lymph # (Auto) 1.20 (1.2-3.4) K/uL [place] # (Auto) 0.76 (0.24-0.82) K/uL Eos # (Auto) 0.06 (0-0.50) K/uL Baso # (Auto) 0.04 (0-0.2) K/uL Immature Gran # (Auto) 0.06 H (0.00-0.02) K/uL PT 29.3 H (9.0-12.0) Seconds INR 2.9 H (0.9-1.1) Sodium 136 (136-145) mmol/L Potassium 5.0 (3.5-5.1) mmol/L Chloride 104 (98-107) mmol/L Carbon Dioxide 25 (21-32) mmol/L Anion Gap 7 (3-11) BUN 31 H (6-23) mg/dl Creatinine 1.57 H (0.6-1.2) mg/dl Est Cr Clr Drug Dosing 18.7 ml/min Est GFR ( Amer) 33.8 ml/min Est GFR (Non-Af Amer) 29.1 ml/min BUN/Creatinine Ratio 19.7 (10-20) Glucose 236 H (70-99(Fasting)) mg/dl Calcium 8.4 L (8.5-10.1) mg/dl Total Bilirubin 0.6 (0.2-1.0) mg/dl AST 22 (13-39) U/L ALT 22 (7-52) U/L Alkaline Phosphatase 68 (34-104) U/L Total Protein 5.9 L (6.0-8.3) gm/dl Albumin 3.4 (3.4-5.0) gm/dl Globulin 2.5 (2.5-4.0) gm/dl Albumin/Globulin Ratio 1.4 (0.9-2) Lipase 60 (11-82) U/L Urine Color Urine Appearance (Clear) Urine pH (4.5-7.5) Ur Specific [place] (1.000-1.030) Urine Protein (Negative) Urine Glucose (UA) (Negative) Urine Ketones (Negative) Urine Blood (Negative) Urine Nitrite (Negative) Urine Bilirubin (Negative) Urine Urobilinogen (Negative) Ur Leukocyte Esterase (Negative) Urine RBC (0-4) /hpf Urine WBC (0-5) /hpf Ur Epithelial Cells (0-5) /lpf Urine Bacteria (Negative) SARS-CoV-2, RNA, NAAT (NEGATIVE) 10/08/22 10/08/22 Range/Units 11:40 13:40 WBC (4.8-10.8) K/ul RBC (3.93-5.22) M/uL Hgb (12.0-16.0) g/dl Hct (34.1-44.9) % MCV (80.0-100.0) fL MCH (25.0-34.0) pg MCHC (32.0-36.0) g/dL RDW Std Deviation (36.4-46.3) fL RDW Coeff of Hope (11.5-14.5) % Plt Count (130-400) K/uL MPV (9.4-12.3) fL Immature Gran % (Auto) % Neut % (Auto) % Lymph % (Auto) % [place] % (Auto) % Eos % (Auto) % Baso % (Auto) % Neut # (Auto) (1.4-6.5) K/uL Lymph # (Auto) (1.2-3.4) K/uL [place] # (Auto) (0.24-0.82) K/uL Eos # (Auto) (0-0.50) K/uL Baso # (Auto) (0-0.2) K/uL Immature Gran # (Auto) (0.00-0.02) K/uL PT (9.0-12.0) Seconds INR (0.9-1.1) Sodium (136-145) mmol/L Potassium (3.5-5.1) mmol/L Chloride (98-107) mmol/L Carbon Dioxide (21-32) mmol/L Anion Gap (3-11) BUN (6-23) mg/dl Creatinine (0.6-1.2) mg/dl Est Cr Clr Drug Dosing ml/min Est GFR ( Amer) ml/min Est GFR (Non-Af Amer) ml/min BUN/Creatinine Ratio (10-20) Glucose (70-99(Fasting)) mg/dl Calcium (8.5-10.1) mg/dl Total Bilirubin (0.2-1.0) mg/dl AST (13-39) U/L ALT (7-52) U/L Alkaline Phosphatase (34-104) U/L Total Protein (6.0-8.3) gm/dl Albumin (3.4-5.0) gm/dl Globulin (2.5-4.0) gm/dl Albumin/Globulin Ratio (0.9-2) Lipase (11-82) U/L Urine Color Red Urine Appearance Cloudy A (Clear) Urine pH 7.0 (4.5-7.5) Ur Specific [place] 1.025 (1.000-1.030) Urine Protein 3+ H (Negative) Urine Glucose (UA) Negative (Negative) Urine Ketones Negative (Negative) Urine Blood 3+ H (Negative) Urine Nitrite Negative (Negative) Urine Bilirubin Negative (Negative) Urine Urobilinogen Negative (Negative) Ur Leukocyte Esterase Trace H (Negative) Urine RBC >30 H (0-4) /hpf Urine WBC >30 H (0-5) /hpf Ur Epithelial Cells 0-5 (0-5) /lpf Urine Bacteria 1+ H (Negative) SARS-CoV-2, RNA, NAAT NEGATIVE (NEGATIVE) Administered Medications Discontinued Medications Sodium Chloride (Nss 1000ml) 500 mls @ 999 mls/hr IV .Q31M ONE Stop: 10/08/22 10:50 Last Infusion: 10/08/22 11:06 Dose: 0 mls/hr Documented By: Admin: 10/08/22 10:35 Dose: 999 mls/hr Documented By: SHRUTI Phytonadione 5 mg/ Dextrose 50.5 mls @ 101 mls/hr IV ONE ONE Stop: 10/08/22 13:23 Last Admin: 10/08/22 13:25 Dose: 101 mls/hr Documented By: ANTIONETTE Imaging Data Radiologist's Impression: Abdomen/Pelvis CT 10/08/22 10:[address] WITHOUT CONTRAST CT DOSE: 538.17 mGy.cm HISTORY: Vaginal bleeding, eval for any mass in the abdomen TECHNIQUE: Multiaxial CT images of the abdomen and pelvis were performed without contrast. A dose lowering technique was utilized adhering to the principles of ALARA. COMPARISON STUDY: Abdomen and pelvis CT 08/24/2022. FINDINGS: Stable 4 mm nodule within the right middle lobe and a stable 4 mm nodule within the left lower lobe. Bibasilar linear densities consistent with subsegmental atelectasis. No pneumoperitoneum. No pneumatosis. Postoperative changes again noted within the partial left femur. No acute fractures identified. The unenhanced liver is unremarkable. The spleen remains mildly enlarged. Prior cholecystectomy. Scattered small cystic foci within the pancreas remain unchanged. There are few punctate stones within the right kidney. No ureteral stones. Mild fullness within the bilateral renal collecting systems without dionicio hydronephrosis. No retroperitoneal lymphadenopathy or hematoma. Moderate bladder wall thickening with adjacent edema/fat stranding is again noted. This is similar to the prior study. However, there is been interval development of a moderate amount of hyperdense material layering within the bladder consistent with blood clots. Prior hysterectomy. Colonic diverticulosis. Interval improvement in the sigmoid colon thickening and pericolonic fat stranding. No dilated loops of bowel to suggest an obstruction. Normal appendix.. Bilateral renal hypo and hyperdense lesions remain stable. IMPRESSION: 1. Interval improvement in the bowel wall thickening of the sigmoid colon consistent with a resolving colitis/diverticulitis. 2. Persistent moderate bladder wall thickening with adjacent fat stranding/edema. However, there as been interval development of a moderate amount of blood clot within the bladder lumen raising the possibility of a hemorrhagic cystitis. Therefore, please correlate clinically for hematuria rather than vaginal bleeding. 3. Stable splenomegaly. 4. Additional findings as described above. ACT 112: Negative or not required by law. Electronically signed by: Donato Duval M.D. 10/08/2022 11:20 AM Discharge Plan Visit Data Chief Complaint: Vaginal Bleeding ED Provider: Herman Perez Discharge Problem: Hematuria Forms Stand Alone Forms: Astley Clarke Prescriptions Prescriptions: No Action tamsulosin [Flomax] 0.4 mg capsule 0.4 mg PO HS Qty: 90 3RF aspirin [Orquidea Low Dose Aspirin] 81 mg Tablet,Delayed Release (Dr/Ec) 81 mg PO 3XWK Rx Instructions: TAKE THIS MEDICATION EVERY WEDNESDAY,WEDNESDAY AND WEDNESDAY fluticasone propionate [Flonase Allergy Relief] 50 mcg/actuation [place],Suspension 2 spray INTRANASAL HS PRN (Reason: Nasal Congestion) levothyroxine 100 mcg tablet 100 mcg PO DAILYBB Rx Instructions: TAKE THIS MEDICATION AT LEAST 30 MINUTES BEFORE BREAKFAST OR ANY OTHER MEDICATIONS docusate sodium [Col-Rite] 100 mg capsule 100 mg PO HS PRN (Reason: Constipation) glipizide 5 mg tablet 10 mg PO QAM rosuvastatin 10 mg tablet 10 mg PO HS polyethylene glycol 3350 [Miralax] 17 gram Powder In Packet 17 g PO DAILY PRN (Reason: constipation) Qty: 30 0RF warfarin 1 mg Tablet 1 mg PO 4XWK Rx Instructions: /// cholecalciferol (vitamin D3) [Vitamin D3] 25 mcg (1,000 unit) Tablet 50 mcg PO DAILY Januvia 25 mg tablet 25 mg PO DAILY PreserVision AREDS-2 250-90-40-1 mg Capsule 1 tab PO BID metoprolol tartrate 25 mg Tablet 12.5 mg PO BID Qty: 60 0RF estradiol 0.01 % (0.1 mg/gram) cream 1 g VAGINAL QPM amoxicillin 500 mg Capsule 2,000 mg PO DIRECTED PRN (Reason: PRIOR TO DENTAL APPT.) ketoconazole 2 % Shampoo 1 ea TOPICAL 3XWK Rx Instructions: USES WED, WED, & WED. loperamide 2 mg Capsule 2 mg PO Q8H PRN (Reason: Diarrhea) melatonin 3 mg Tablet 3 mg PO HS acetaminophen [Tylenol Extra Strength] 500 mg Tablet 500 mg PO Q8H PRN (Reason: FEVER >100.5/MODERATE PAIN) ferrous sulfate 325 mg (65 mg iron) Tablet 325 mg PO DAILY betamethasone valerate 0.12 % foam 1 applic TOPICAL HS Rx Instructions: APPLY TO SCALP hydroxyzine HCl 10 mg Tablet 10 mg PO Q6H PRN (Reason: Anxiety) Saccharomyces boulardii 250 mg Capsule 250 mg PO DAILY diclofenac sodium 1 % Gel 2 g TOPICAL Q12H PRN (Reason: Pain) guaifenesin 600 mg Tablet Extended Release 12hr 600 mg PO Q12H PRN (Reason: Congestion) amiodarone 200 mg tablet 200 mg PO QAM warfarin 1 mg tablet 1.5 mg PO 3XWK Rx Instructions: M/W/F nitrofurantoin monohyd/m-cryst 100 mg capsule 100 mg PO HS Referrals Referrals: Kendall Smith [place] [Primary Care Provider] - : Hematuria Qualifiers: Hematuria type: gross Qualified Code(s): R31.0 - Gross hematuria
[2022-10-08 09:44] LABS: Basophils # (auto) 0.04 K/uL (0-0.2); Basophils % (auto) 0.3 %; Eosinophils # (auto) 0.06 K/uL (0-0.50); Eosinophils % (auto) 0.5 %; Hematocrit (blood only) 30.9 % (34.1-44.9); Hemoglobin 9.5 g/dl (12.0-16.0); Immature Granulocytes # (auto) 0.06 K/uL (0.00-0.02); Immature Granulocytes % (auto) 0.5 %; Lymphocytes % (auto) 9.7 %; Mean Corpuscular Hemoglobin 26.2 pg (25.0-34.0); Mean Corpuscular Hgb Conc 30.7 g/dL (32.0-36.0); Mean Corpuscular Volume 85.1 fL (80.0-100.0); Monocytes # (auto) 0.76 K/uL (0.24-0.82); Monocytes % (auto) 6.2 %; Neutrophils % (auto) 82.8 %; Platelet Count 180 K/uL (130-400); RDW Coefficient of Variation 15.9 % (11.5-14.5); RDW Standard Deviation 48.7 fL (36.4-46.3); Red Blood Count 3.63 M/uL (3.93-5.22); White Blood Count 12.32 K/ul (4.8-10.8)
[2022-10-08 09:53] LABS: Albumin Globulin Ratio 1.4 (0.9-2); Albumin Level 3.4 gm/dl (3.4-5.0); BUN Creatinine Ratio 19.7 (10-20); Bilirubin,Total 0.6 mg/dl (0.2-1.0); Calcium 8.4 mg/dl (8.5-10.1); Creatinine Clr Calc Pharmacy 18.7 ml/min; Est GFR (African American) 33.8 ml/min; Est GFR (Non-African American) 29.1 ml/min; Globulin 2.5 gm/dl (2.5-4.0); Total Protein 5.9 gm/dl (6.0-8.3)
[2022-10-08 10:12] LABS: INR 2.9 (0.9-1.1); Prothrombin Time 29.3 Seconds (9.0-12.0)
[2022-10-08] MEDS ORDERED: SODIUM CHLORIDE 0.9% 1000ML 500 ML IV ONE ×2 (10:20→14:46)
--- NOTE | 2022-10-08 11:22 | CT Scan Report ---
ABDOMEN AND PELVIS CT WITHOUT CONTRAST CT DOSE: 538.17 mGy.cm HISTORY: Vaginal bleeding, eval for any mass in the abdomen TECHNIQUE: Multiaxial CT images of the abdomen and pelvis were performed without contrast. A dose lo wering technique was utilized adhering to the principles of ALARA. COMPARISON STUDY: Abdomen and pelvis CT 08/24/2022. FINDINGS: Stable 4 mm nodule within the right middle lobe and a stable 4 mm nodule within the left lo wer lobe. Bibasilar linear densities consistent with subsegmental atelectasis. No pneumoperitoneum. N o pneumatosis. Postoperative changes again noted within the partial left femur. No acute fractures id entified. The unenhanced liver is unremarkable. The spleen remains mildly enlarged. Prior cholecystec fred. Scattered small cystic foci within the pancreas remain unchanged. There are few punctate stones within the right kidney. No ureteral stones. Mild fullness within the bilateral renal collecting sys tems without dionicio hydronephrosis. No retroperitoneal lymphadenopathy or hematoma. Moderate bladder w all thickening with adjacent edema/fat stranding is again noted. This is similar to the prior study. However, there is been interval development of a moderate amount of hyperdense material layering with in the bladder consistent with blood clots. Prior hysterectomy. Colonic diverticulosis. Interval impr ovement in the sigmoid colon thickening and pericolonic fat stranding. No dilated loops of bowel to s uggest an obstruction. Normal appendix.. Bilateral renal hypo and hyperdense lesions remain stable. IMPRESSION: 1. Interval improvement in the bowel wall thickening of the sigmoid colon consistent with a resolving colitis/diverticulitis. 2. Persistent moderate bladder wall thickening with adjacent fat stranding/edema. However, there as b een interval development of a moderate amount of blood clot within the bladder lumen raising the poss ibility of a hemorrhagic cystitis. Therefore, please correlate clinically for hematuria rather than v aginal bleeding. 3. Stable splenomegaly. 4. Additional findings as described above. ACT 112: Negative or not required by law. Electronically signed by: Donato Duval M.D. 10/08/2022 11:20 AM
[2022-10-08 12:28] LABS: Appearance Urine Cloudy (Clear); Bilirubin Urine Negative (Negative); Blood Urine 3+ (Negative); Color Urine Red; Glucose Urine UA Negative (Negative); Ketones Urine Negative (Negative); Leukocyte Esterase Urine Trace (Negative); Nitrite Urine Negative (Negative); Protein Urine 3+ (Negative); Specific Gravity Urine 1.025 (1.000-1.030); Urobilinogen Urine Negative (Negative)
[2022-10-08 12:39] LABS: RBC Urine >30 /hpf (0-4); WBC Urine >30 /hpf (0-5)
[2022-10-08 12:40] LABS: Bacteria Urine 1+ (Negative); Epithelial Cell Urine 0-5 /lpf (0-5)
[2022-10-08] MEDS ORDERED: PHYTONADIONE 5 MG in DEXTROSE 5% 50 ML IV ONE (12:54)
[2022-10-08] MEDS ORDERED: cefTRIAXone SODIUM 1,000 MG in DEXTROSE 5% AD-VAN 50 ML IV STA (12:56)
--- NOTE | 2022-10-08 13:43 | Urology Consultation ---
Date of Consultation October 08, 2022 Assessment & Plan (1) Gross hematuria: 87-year-old female with history of recurrent urinary tract infections presented to the emergency department today with complaint of vaginal bleeding. She is s/p hysterectomy. CT A/P notable for moderate bladder wall thickening with adjacent stranding and moderate amount of clot within the bladder. Patient has been admitted to the hospital medicine service. She is afebrile, hemodynamically stable. Labs reviewed - creatinine 1.57, WBC 12.32, hemoglobin 9.5. Continue to trend H&H. Urinalysis suspicious for UTI with leukocytes, >30 RBC, >30 WBC, 1+ bacteria. Urine culture is pending - continue broad-spectrum antibiotics and narrow per sensitivity data when available. Moderate amount of clot was irrigated by nursing staff in ED. Personally irrigated a small amount of clots during my exam. No acute intervention at this time. Maintain Velásquez catheter. May need to upsize catheter. Okay to hand irrigate prn suprapubic discomfort, clot retention. Keep NPO for now. Patient may need cystoscopy and clot evacuation depending on clinical course. Continue supportive care, antibiotics, and management per medicine service. will follow. Please contact our service with any questions or acute changes in status. History of Present Illness Reason for Consultation: Gross hematuria Requesting Physician: Dr. Perez History of Present Illness This is an 87-year-old female with past medical history of paroxysmal A. fib on chronic anticoagulation with Coumadin, type 2 diabetes, CKD stage IV, hypertension, hyperlipidemia, hypothyroidism, and anemia who presented to the emergency department on 10/08/21 with chief complaint of vaginal bleeding which started overnight. On presentation she was afebrile. Lab work independently reviewed. Creatinine 1.57, WBC 12.32, hemoglobin 9.5, hematocrit 30.9, INR 2.9. Urinalysis showed 3+ protein, 3+ blood, trace leukocyte esterase, >30 RBC, >30 WBC, 1+ bacteria. Urine culture is pending. CT of the abdomen and pelvis independently reviewed and notable for moderate bladder wall thickening with adjacent edema/fat stranding and moderate amount of clot within the bladder. Prior hysterectomy noted. A Velásquez catheter was placed and manual irrigation employed. Per nursing, moderate amount of clot irrigated from bladder. ED course included IV fluids, Ceftriaxone and Phytonadione. Urology consulted for evaluation of gross hematuria. She is known to our service for history of lower urinary tract symptoms, incomplete emptying, and recurrent urinary tract infections. Patient seen and examined in the emergency department. She was resting in litter upon my arrival, no acute distress. She arouses easily to her name. She denies flank, abdominal, or suprapubic pain. She reports bleeding began yesterday evening. She denies dysuria or bothersome urinary symptoms prior to onset of hematuria. No fever or chills. No nausea or vomiting. Never smoker. No family history of malignancy. Allergies Allergy/AdvReac Type Severity Reaction Status Date / Time sulfamethoxazole Allergy Intermediate Rash Verified 04/06/22 17:17 tetanus toxoid, adsorbed Allergy Intermediate HIVES Verified 04/06/22 17:17 tetracycline Allergy Intermediate hives Verified 04/06/22 17:17 trimethoprim Allergy Intermediate Rash Verified 04/06/22 17:17 rosuvastatin AdvReac Intermediate Muscle Verified 04/06/22 17:17 stiffness amoxicillin Allergy Intermediate Uncoded 10/08/22 09:12 Home Medications Medication Instructions Recorded Confirmed Type aspirin 81 mg tablet,delayed 81 mg PO 3XWK 10/31/18 10/08/22 History release (Orquidea Low Dose Aspirin) fluticasone propionate 50 2 spray intranasal HS PRN Nasal 10/31/18 10/08/22 History mcg/actuation nasal Congestion spray,suspension (Flonase Allergy Relief) levothyroxine 100 mcg tablet 100 mcg PO DAILYBB 10/31/18 10/08/22 History tamsulosin 0.4 mg capsule (Flomax) 0.4 mg PO HS #90 caps 07/11/19 10/08/22 Rx docusate sodium 100 mg capsule 100 mg PO HS PRN Constipation 06/25/20 10/08/22 History (Col-Rite) glipizide 5 mg tablet 10 mg PO QAM 06/25/20 10/08/22 History rosuvastatin 10 mg tablet 10 mg PO HS 06/25/20 10/08/22 History polyethylene glycol 3350 17 gram 17 g PO DAILY PRN constipation #30 09/05/20 10/08/22 Rx oral powder packet (Miralax) ea cholecalciferol (vitamin D3) 25 50 mcg PO DAILY 11/09/20 10/08/22 History mcg (1,000 unit) tablet (Vitamin D3) sitagliptin phosphate 25 mg tablet 25 mg PO DAILY 11/09/20 10/08/22 History (Januvia) vit C 250 mg-vit E 90 mg-zinc 40 1 tab PO BID 11/09/20 10/08/22 History mg-copper 1 [id number] capsule (PreserVision AREDS-2) warfarin 1 mg tablet 1 mg PO 4XWK 11/09/20 10/08/22 History metoprolol tartrate 25 mg tablet 12.5 mg PO BID #60 tabs 11/18/20 10/08/22 Rx estradiol 0.01% (0.1 mg/gram) 1 g vaginal QPM 12/13/20 10/08/22 History vaginal cream Saccharomyces boulardii 250 mg 250 mg PO DAILY 03/15/22 10/08/22 History capsule acetaminophen 500 mg tablet 500 mg PO Q8H PRN FEVER 03/15/22 10/08/22 History (Tylenol Extra Strength) >100.5/MODERATE PAIN amiodarone 200 mg tablet 200 mg PO QAM 03/15/22 10/08/22 History amoxicillin 500 mg capsule 2,000 mg PO DIRECTED PRN PRIOR 03/15/22 10/08/22 History TO DENTAL APPT. betamethasone valerate 0.12 % 1 applic topical HS 03/15/22 10/08/22 History topical foam diclofenac sodium 1 % topical gel 2 g topical Q12H PRN Pain 03/15/22 10/08/22 History ferrous sulfate 325 mg (65 mg 325 mg PO DAILY 03/15/22 10/08/22 History iron) tablet guaifenesin 600 mg tablet, 600 mg PO Q12H PRN Congestion 03/15/22 10/08/22 History extended release 12 hr hydroxyzine HCl 10 mg tablet 10 mg PO Q6H PRN Anxiety 03/15/22 10/08/22 History ketoconazole 2 % shampoo 1 ea topical 3XWK 03/15/22 10/08/22 History loperamide 2 mg capsule 2 mg PO Q8H PRN Diarrhea 03/15/22 10/08/22 History melatonin 3 mg tablet 3 mg PO HS 03/15/22 10/08/22 History nitrofurantoin 100 mg PO HS 08/24/22 10/08/22 History monohydrate/macrocrystals 100 mg capsule warfarin 1 mg tablet 1.5 mg PO 3XWK 08/24/22 10/08/22 History Patient History Medical History Acute on chronic anemia CKD (chronic kidney disease) stage 4, GFR 15-29 ml/min Closed left hip fracture s/p repair Gram-negative bacteremia History of COVID-19 History of MRSA infection History of traumatic subdural hematoma HLD (hyperlipidemia) HTN (hypertension) Hypothyroidism Left knee DJD Paroxysmal A-fib Recurrent UTI Sepsis Symptomatic anemia T2DM (type 2 diabetes mellitus) Surgical History History of breast biopsy History of cholecystectomy History of hysterectomy Family History Mother Breast cancer Hypertension Father , at 92 No problems noted. Social History Smoking Status: Never smoker Second Hand Exposure: No; Hx Alcohol Use: No Hx Substance Use: No Preferred Language: Setswana Communication Ability: Effective Gold Tooler Required: No Beliefs That Will Affect Care: None marital status: / Current Living Situation: Personal Care Facility Current Living Situation Comment: [facility] How many Children do You have: 1 other: ambulates with cane Feels Safe at Home: Yes Assistive Devices: Wheelchair Review of Systems Review of Systems: All systems reviewed & are unremarkable except as noted in HPI & below Physical Exam Constitutional: + frail appearing; no acute distress Eyes: no scleral abnormality Neck: trachea midline Respiratory: normal respiratory effort; no respiratory distress and no labored breathing Cardiovascular: Extremities: no pedal edema Gastrointestinal (Abdomen): Inspection/Auscultation: abdomen normal to inspection; abdomen not distended Percussion/Palpation: + abdomen tender (mildly tender to palpation at left lower quadrant) and abdomen soft Musculoskeletal: Head/Neck/Chest: normocephalic Neurologic: moves all extremities and awake Psychiatric: Orientation: alert and oriented x 3 Genitourinary: Velásquez intact and draining stevenson red urine. Manually irrigated bladder with about 90 mL, small amount of clot returned initially. Results & Data ([facility]) Vital Signs (Past 12 Hours) Vital Signs Temp Pulse Pulse Resp BP BP Pulse Ox 10/08/22 11:25 88 24 98/41 L 92 10/08/22 10:20 93 H 16 10/08/22 10:18 93 H 19 10/08/22 10:18 105/53 L 10/08/22 10:10 92 H 23 10/08/22 10:00 103 H 22 10/08/22 09:50 103 H 21 10/08/22 09:40 102 H 21 10/08/22 09:30 91 H 24 10/08/22 09:20 102 H 10/08/22 09:14 90 26 H 10/08/22 09:14 36.8 C 91 H 18 113/50 L 96 O2 Del Method 10/08/22 11:25 Room Air 10/08/22 10:20 Room Air 10/08/22 10:18 Room Air 10/08/22 10:18 Room Air 10/08/22 10:10 Room Air 10/08/22 10:00 Room Air 10/08/22 09:50 Room Air 10/08/22 09:40 Room Air 10/08/22 09:30 Room Air 10/08/22 09:20 Room Air 10/08/22 09:14 Room Air 10/08/22 09:14 Room Air PG Care Time/CCT Total # of Minutes Spent Total Time Spent with Patient: Total time spent is greater than 50% in coordination of care (as documented) at patient's floor/unit and/or counseling patient: Coding Level of Care Code INP/OBS CONSULT LVL 4, 60 MIN Diagnoses Gross hematuria R31.0 Time Spent (min) 60
--- NOTE | 2022-10-08 14:28 | History & Physical Report ---
Date of Service October 08, 2022 Assessment & Plan (1) Gross hematuria: (2) Paroxysmal A-fib: (3) Chronic anticoagulation: (4) T2DM (type 2 diabetes mellitus): (5) Anemia of renal disease: (6) CKD (chronic kidney disease) stage 4, GFR 15-29 ml/min: Plan This is an 87-year-old female Who has significant past medical history of PAF anticoagulated on warfarin, T2DM, CKD stage IV, hypothyroidism, anemia of renal disease, history of traumatic subdural hematoma who presents to ER secondary to what was thought to be vaginal bleeding since 3 this morning. Pt found to have gross hematuria. Galdamez cath placed. Hemodynamically stable, though SBP high 90s. CT a/p: Persistent moderate bladder wall thickening with adjacent fat stranding/edema. However, there as been interval development of a moderate amount of blood clot within the bladder lumen raising the possibility of a hemorrhagic cystitis. Gross Hematuria SIRS - wbc 12, HR > 90 Possible UTI admit to PCU continue galdamez catheter management with intermittent manual irrigation per urology treat with IV Rocephin until urine culture returns urine and blood culture pending consult urology - spoke to YARED Jennifer keep NPO, likely to need cystoscopy q2h vital signs repeat h/h now and H/H and PT/INR at 20:00 reverse INR repeat h/h 7.7, will tranfuse 1 unit PRBC now pt follows Dr. Harrington at [facility] fo recurrent UTIs, tx with flomax and estrogren for incomplete bladder emptying ( has failed Myrbetriq and vesicare) hold prophylactic macrobid per Daughter, Pt BP does tend to run on lower side (high 90s) Currently I do not feel pt is toxic appearing, although she does appear weak, feel tachycardia likely in setting of blood loss PAF on prison warfarin continue amiodarone and metoprolol hold warfarin for now, received 5mg Vit K in ED Anemia of renal disease receives epo as OP, occasional transfusion per OP notes hgb appears at baseline 8-9s was 11 at end of August will trend CKD-4 baseline cr 1.4-1.5 monitor closely avoid nephrotoxic agents T2DM controlled, a1c 7.4 in Aug 2022 hold Januvia and glipizide accuchecks q6h while NPO Lantus/novolog per protocol DVT ppx: SCDS Dispo: PCU, keep NPO in event procedure warranted, urology evaluated patient, will keep close eye on H/H and vital signs FULL CODE PCP: Paty Whalen Pt was seen and examined in collaboration with Dr. Duvall, please see addendum A total of 90 minutes were spent with greater than 50% of that time face to face with the patient, personally reviewing all current laboratories, imaging studies, past medication reconciliation, outpatient chart review, and discussion with specialists to collaborate care for the patient with attending. Please see attending documentation for corrections and/or additions. Blood consent was obtained from the patient as delegated by Dr. Duvall. Risks and benefits were explained. All questions were answered, and the patient was offered the opportunity to discuss with attending physician and declined. Spoke to daughter Janeth in detail regarding mothers current hospitalization. She agrees with above. Her and her were planning to go on a cruise tomorrow, but have decided to stay in town. History of Present Illness Chief Complaint: Bleeding from urinary tract since 3 AM Primary Care Provider: [facility] This is an 87-year-old female Who has significant past medical history of PAF anticoagulated on warfarin, T2DM, CKD stage IV, hypothyroidism, anemia of renal disease, history of traumatic subdural hematoma who presents to ER secondary to what was thought to be vaginal bleeding since 3 this morning. She currently resides at [facility]. She was recently hospitalized 08/24-08/26 secondary to a E. coli UTI was treated with antibiotics appropriately. Since that discharge she states she has been feeling well up until this morning when she noticed significant bleeding coming from her vagina. She denies any dionicio abdominal pain when this occurred. She further denied any recent lightheadedness, dizziness, fever, chills, sweats, nausea, vomiting, diarrhea, melena or hematochezia. She does admit to having history of hysterectomy. She does have history of frequent UTIs in the past and follows with urology. Her appetite has otherwise been normal. She has been taking her medications as prescribed. In ED patient's blood pressure was on the lower side 90s over 40s but otherwise was hemodynamically stable. She was found to have a significant amount of bleeding coming from what was felt to be her urinary tract. A Galdamez catheter was placed and gross hematuria was noted. CT abdomen pelvis was performed which showed persistent moderate bladder wall thickening with adjacent fat stranding and edema. There has been interval development of moderate amount of blood clot within the bladder lumen raising possibility of hemorrhagic cystitis. Also noted was interval improvement in Bowel thickening of the sigmoid colon consistent with a resolving colitis.Case was discussed with ER provider along with urology YARED. It is recommended patient be admitted to hospital due to concern for possible hemorrhagic cystitis, infection, incomplete emptying of bladder or possible underlying malignancy.Her hemoglobin was 9.5 which appears to be her baseline, INR elevated 2.9 and BUN and creatinine 31 and 1.57. She did have mild leukocytosis as well as a urinalysis consistent with possible underlying infection. Allergies Allergy/AdvReac Type Severity Reaction Status Date / Time sulfamethoxazole Allergy Intermediate Rash Verified 04/06/22 17:17 tetanus toxoid, adsorbed Allergy Intermediate HIVES Verified 04/06/22 17:17 tetracycline Allergy Intermediate hives Verified 04/06/22 17:17 trimethoprim Allergy Intermediate Rash Verified 04/06/22 17:17 rosuvastatin AdvReac Intermediate Muscle Verified 04/06/22 17:17 stiffness amoxicillin Allergy Intermediate Uncoded 10/08/22 09:12 Home Medications Medication Instructions Recorded Confirmed Type aspirin 81 mg tablet,delayed 81 mg PO 3XWK 10/31/18 10/08/22 History release (Orquidea Low Dose Aspirin) fluticasone propionate 50 2 spray intranasal HS PRN Nasal 10/31/18 10/08/22 History mcg/actuation nasal Congestion spray,suspension (Flonase Allergy Relief) levothyroxine 100 mcg tablet 100 mcg PO DAILYBB 10/31/18 10/08/22 History tamsulosin 0.4 mg capsule (Flomax) 0.4 mg PO HS #90 caps 07/11/19 10/08/22 Rx docusate sodium 100 mg capsule 100 mg PO HS PRN Constipation 06/25/20 10/08/22 History (Col-Rite) glipizide 5 mg tablet 10 mg PO QAM 06/25/20 10/08/22 History rosuvastatin 10 mg tablet 10 mg PO HS 06/25/20 10/08/22 History polyethylene glycol 3350 17 gram 17 g PO DAILY PRN constipation #30 09/05/20 10/08/22 Rx oral powder packet (Miralax) ea cholecalciferol (vitamin D3) 25 50 mcg PO DAILY 11/09/20 10/08/22 History mcg (1,000 unit) tablet (Vitamin D3) sitagliptin phosphate 25 mg tablet 25 mg PO DAILY 11/09/20 10/08/22 History (Januvia) vit C 250 mg-vit E 90 mg-zinc 40 1 tab PO BID 11/09/20 10/08/22 History mg-copper 1 [id number] capsule (PreserVision AREDS-2) warfarin 1 mg tablet 1 mg PO 4XWK 11/09/20 10/08/22 History metoprolol tartrate 25 mg tablet 12.5 mg PO BID #60 tabs 11/18/20 10/08/22 Rx estradiol 0.01% (0.1 mg/gram) 1 g vaginal QPM 12/13/20 10/08/22 History vaginal cream Saccharomyces boulardii 250 mg 250 mg PO DAILY 03/15/22 10/08/22 History capsule acetaminophen 500 mg tablet 500 mg PO Q8H PRN FEVER 03/15/22 10/08/22 History (Tylenol Extra Strength) >100.5/MODERATE PAIN amiodarone 200 mg tablet 200 mg PO QAM 03/15/22 10/08/22 History amoxicillin 500 mg capsule 2,000 mg PO DIRECTED PRN PRIOR 03/15/22 10/08/22 History TO DENTAL APPT. betamethasone valerate 0.12 % 1 applic topical HS 03/15/22 10/08/22 History topical foam diclofenac sodium 1 % topical gel 2 g topical Q12H PRN Pain 03/15/22 10/08/22 History ferrous sulfate 325 mg (65 mg 325 mg PO DAILY 03/15/22 10/08/22 History iron) tablet guaifenesin 600 mg tablet, 600 mg PO Q12H PRN Congestion 03/15/22 10/08/22 History extended release 12 hr hydroxyzine HCl 10 mg tablet 10 mg PO Q6H PRN Anxiety 03/15/22 10/08/22 History ketoconazole 2 % shampoo 1 ea topical 3XWK 03/15/22 10/08/22 History loperamide 2 mg capsule 2 mg PO Q8H PRN Diarrhea 03/15/22 10/08/22 History melatonin 3 mg tablet 3 mg PO HS 03/15/22 10/08/22 History nitrofurantoin 100 mg PO HS 08/24/22 10/08/22 History monohydrate/macrocrystals 100 mg capsule warfarin 1 mg tablet 1.5 mg PO 3XWK 08/24/22 10/08/22 History Past Med/Surg History Medical History Acute on chronic anemia CKD (chronic kidney disease) stage 4, GFR 15-29 ml/min Closed left hip fracture s/p repair Gram-negative bacteremia History of COVID-19 History of MRSA infection History of traumatic subdural hematoma HLD (hyperlipidemia) HTN (hypertension) Hypothyroidism Left knee DJD Paroxysmal A-fib Recurrent UTI Sepsis Symptomatic anemia T2DM (type 2 diabetes mellitus) Surgical History History of breast biopsy History of cholecystectomy History of hysterectomy Family History Mother Breast cancer Hypertension Father , at 92 No problems noted. Social History Smoking Status: Never smoker Second Hand Exposure: No; Hx Alcohol Use: No Hx Substance Use: No Preferred Language: Kuwaiti Communication Ability: Effective Outreach Representative Required: No Beliefs That Will Affect Care: None marital status: / Current Living Situation: Personal Care Facility Current Living Situation Comment: [facility] How many Children do You have: 1 other: ambulates with cane Feels Safe at Home: Yes Assistive Devices: Wheelchair Review of Systems Review of Systems: All systems reviewed & are unremarkable except as noted in HPI & below Physical Exam Physical Exam: Constitutional: Elderly, Fraile, F vitals as above, NAD, sitting up in bed, appears weak but is able to answer all questions Head: Normocephalic, Atraumatic, b/l temporal wasting Eyes: PERRL, conjunctivae normal, anicteric sclerae ENMT: external ear and nose normal, oropharynx normal , dry membranes Neck: trachea midline, no thyromegaly normal visual inspection Respiratory: normal respiratory effort, lungs clear to auscultation, no wheeze, rales, rhonchi. Normal insp/exp effort, no accessory muscle use Cardiovascular: RRR, no murmur, no edema Vessels: no JVD or carotid bruit Chest: normal inspection of chest Abdomen: normal bowel sounds, soft, mild tenderness to palp in suprapubic region, no rebound or guarding, no hepatosplenomegaly Musculoskeletal: no cyanosis or clubbing, arom x 4 Skin: no rashes, warm and dry mild turgor Neurologic: PERRL, EOMI, accommodation nl, no face palsy, no dysarthria CN's II-XI intact bilaterally and moves all extremities Psychiatric: A+Ox3, euthymic affect Lymphatic: no cervical or axillary lymphadenopathy : + galdamez with gross hematuria Results & Data Results & Data ([facility]) Vital Signs (Past 12 Hours) Vital Signs Temp Pulse Pulse Resp BP BP Pulse Ox 10/08/22 11:25 88 24 98/41 L 92 10/08/22 10:20 93 H 16 10/08/22 10:18 93 H 19 10/08/22 10:18 105/53 L 10/08/22 10:10 92 H 23 10/08/22 10:00 103 H 22 10/08/22 09:50 103 H 21 10/08/22 09:40 102 H 21 10/08/22 09:30 91 H 24 10/08/22 09:20 102 H 22 10/08/22 09:14 90 26 H 10/08/22 09:14 36.8 C 91 H 18 113/50 L 96 O2 Del Method 10/08/22 11:25 Room Air 10/08/22 10:20 Room Air 10/08/22 10:18 Room Air 10/08/22 10:18 Room Air 10/08/22 10:10 Room Air 10/08/22 10:00 Room Air 10/08/22 09:50 Room Air 10/08/22 09:40 Room Air 10/08/22 09:30 Room Air 10/08/22 09:20 Room Air 10/08/22 09:14 Room Air 10/08/22 09:14 Room Air Laboratory Results Short CBC 10/08/22 10/08/22 10/08/22 Range/Units 09:10 15:06 17:40 WBC 12.32 H (4.8-10.8) K/ul Hgb 9.5 L 7.7 L 8.3 L (12.0-16.0) g/dl Hct 30.9 L 24.1 L 26.3 L (34.1-44.9) % Plt Count 180 (130-400) K/uL BMP 10/08/22 09:10 Sodium 136 Potassium 5.0 Chloride 104 Carbon Dioxide 25 BUN 31 H Creatinine 1.57 H Glucose 236 H Calcium 8.4 L Liver Function 10/08/22 Range/Units 09:10 Total Bilirubin 0.6 (0.2-1.0) mg/dl AST 22 (13-39) U/L ALT 22 (7-52) U/L Alkaline Phosphatase 68 (34-104) U/L Albumin 3.4 (3.4-5.0) gm/dl Urine 10/08/22 Range/Units 11:40 Urine Color Red Urine Appearance Cloudy A (Clear) Urine pH 7.0 (4.5-7.5) Ur Specific [place] 1.025 (1.000-1.030) Urine Protein 3+ H (Negative) Urine Glucose (UA) Negative (Negative) Diagnostic Findings Abdomen/Pelvis CT 10/08/22 10:[address] WITHOUT CONTRAST CT DOSE: 538.17 mGy.cm HISTORY: Vaginal bleeding, eval for any mass in the abdomen TECHNIQUE: Multiaxial CT images of the abdomen and pelvis were performed without contrast. A dose lowering technique was utilized adhering to the principles of ALARA. COMPARISON STUDY: Abdomen and pelvis CT 08/24/2022. FINDINGS: Stable 4 mm nodule within the right middle lobe and a stable 4 mm nodule within the left lower lobe. Bibasilar linear densities consistent with subsegmental atelectasis. No pneumoperitoneum. No pneumatosis. Postoperative changes again noted within the partial left femur. No acute fractures identified. The unenhanced liver is unremarkable. The spleen remains mildly enlarged. Prior cholecystectomy. Scattered small cystic foci within the pancreas remain unchanged. There are few punctate stones within the right kidney. No ureteral stones. Mild fullness within the bilateral renal collecting systems without dionicio hydronephrosis. No retroperitoneal lymphadenopathy or hematoma. Moderate bladder wall thickening with adjacent edema/fat stranding is again noted. This is similar to the prior study. However, there is been interval development of a moderate amount of hyperdense material layering within the bladder consistent with blood clots. Prior hysterectomy. Colonic diverticulosis. Interval improvement in the sigmoid colon thickening and pericolonic fat stranding. No dilated loops of bowel to suggest an obstruction. Normal appendix.. Bilateral renal hypo and hyperdense lesions remain stable. IMPRESSION: 1. Interval improvement in the bowel wall thickening of the sigmoid colon consistent with a resolving colitis/diverticulitis. 2. Persistent moderate bladder wall thickening with adjacent fat stranding/edema. However, there as been interval development of a moderate amount of blood clot within the bladder lumen raising the possibility of a hemorrhagic cystitis. Therefore, please correlate clinically for hematuria rather than vaginal bleeding. 3. Stable splenomegaly. 4. Additional findings as described above. ACT 112: Negative or not required by law. Electronically signed by: Donato Duval M.D. 10/08/2022 11:20 AM Medications Administered Medication List Discontinued Medications Sodium Chloride (Nss 1000ml) 500 mls @ 999 mls/hr IV .Q31M ONE Stop: 10/08/22 10:50 Last Infusion: 10/08/22 11:06 Dose: 0 mls/hr Documented By: Admin: 10/08/22 10:35 Dose: 999 mls/hr Documented By: SHRUTI Phytonadione 5 mg/ Dextrose 50.5 mls @ 101 mls/hr IV ONE ONE Stop: 10/08/22 13:23 Last Admin: 10/08/22 13:25 Dose: 101 mls/hr Documented By: ANTIONETTE ECG Rate (beats per minute): 106 Rhythm: sinus tachycardia Findings: + RBBB Additional Comments: EKG personally reviewed by me, qtc 472ms COVID-19 Results Results COVID-19 Adm Lab Results: RBC 3.63 M/uL (3.93-5.22) L 10/08/22 WBC 12.32 K/ul (4.8-10.8) H 10/08/22 Hgb 8.3 g/dl (12.0-16.0) L 10/08/22 Hct 26.3 % (34.1-44.9) L 10/08/22 Plt Count 180 K/uL (130-400) 10/08/22 Neutrophils (%) (Auto) 82.8 % 10/08/22 Lymphocytes (%) (Auto) 9.7 % 10/08/22 Monocytes # (Auto) 0.76 K/uL (0.24-0.82) 10/08/22 Eosinophils # (Auto) 0.06 K/uL (0-0.50) 10/08/22 Immature Granulocyte % (Auto) 0.5 % 10/08/22 Neutrophils # (Auto) 10.20 K/uL (1.4-6.5) H 10/08/22 Lymphocytes # (Auto) 1.20 K/uL (1.2-3.4) 10/08/22 Monocytes # (Auto) 0.76 K/uL (0.24-0.82) 10/08/22 Eosinophils # (Auto) 0.06 K/uL (0-0.50) 10/08/22 Basophils # (Auto) 0.04 K/uL (0-0.2) 10/08/22 Immature Granulocyte # (Auto) 0.06 K/uL (0.00-0.02) H 10/08 Na 136 mmol/L (136-145) 10/08/22 K 5.0 mmol/L (3.5-5.1) 10/08/22 Cl 104 mmol/L (98-107) 10/08/22 CO2 25 mmol/L (21-32) 10/08/22 Anion Gap 7 (3-11) 10/08/22 BUN 31 mg/dl (6-23) H 10/08/22 Creatinine 1.57 mg/dl (0.6-1.2) H 10/08/22 BUN/Creatinine Ratio 19.7 (10-20) 10/08/22 Glucose Level 236 mg/dl (70-99(Fasting)) H 10/08/22 Ca 8.4 mg/dl (8.5-10.1) L 10/08/22 Total Bilirubin 0.6 mg/dl (0.2-1.0) 10/08/22 AST/SGOT 22 U/L (13-39) 10/08/22 ALT/SGPT 22 U/L (7-52) 10/08/22 Alkaline Phosphatase 68 U/L (34-104) 10/08/22 Total Protein 5.9 gm/dl (6.0-8.3) L 10/08/22 Albumin 3.4 gm/dl (3.4-5.0) 10/08/22 Globulin 2.5 gm/dl (2.5-4.0) 10/08/22 Albumin/Globulin Ratio 1.4 (0.9-2) 10/08/22 INR 1.8 (0.9-1.1) H 10/08/22 SARS-CoV-2, RNA, NAAT NEGATIVE (NEGATIVE) 10/08/22 Code Status & VTE Plan Code Status FULL CODE VTE Prophylaxis Plan VTE Prophylaxis will be ordered: Yes Supervising Physician Co-Signing Physician Notes Radha is an 87-year-old female with a history of recurrent UTIs in the past presenting today with gross hematuria. A Galdamez catheter was placed. CT abdomen pelvis was notable for moderate bladder wall thickening with adjacent stranding and a moderate amount of clot within the bladder. Urinalysis is suspicious for UTI with urine culture pending. Broad-spectrum antibiotics were started in the ER and urology was consulted. They irrigated a small amount of clots during their exam today. N.p.o. status recommended pending possible need for cystoscopy and clot evacuation depending on clinical course. The patient is otherwise feeling well and denies any prodromal symptoms including no chest pain, shortness of breath, fevers, chills. She does have a falling H&H but denies any significant lightheadedness. She does appear generally weak. She denies any bleeding or bruising other than that from her bladder. She is on warfarin for paroxysmal atrial fibrillation and has an INR of 1.8 down from 2.9 on admission after vitamin K was given. She is in sinus rhythm today. On physical exam she is thin and elderly in no acute distress. She is oriented. Abdomen is soft nontender nondistended. There is no flank pain. Cardiopulmonary exam is within normal limits. She examines as euvolemic. Skin is warm and dry. Work-up includes a CBC with a white count of 12, H&H down from her baseline and is currently 9.5/31. Chemistry is normal aside from evidence of CKD with her creatinine at baseline. And she is hyperglycemic with a glucose of 236. Overall this is a 87-year-old female with acute gross hematuria in setting of possible infection. Galdamez in place and irrigation as needed per urology's orders. Urology planning for cystoscopy at some point. INR reversed in setting of long-term warfarin use for paroxysmal atrial fibrillation. She is currently in sinus rhythm making stroke risk lower. It is unclear the cause of gross hematuria however UTI is considered. She continues on broad-spectrum antibiotics pending culture results and clinical improvement. Monitoring H&H for acute blood loss anemia that is ongoing. Notably blood has been ordered from [facility] but will be here tomorrow on a shuttle given her history of antibodies. She is continuing n.p.o. status at this time in case of the need for urgent cystoscopy overnight. Appreciate urology recommendations. 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
[2022-10-08 15:37] LABS: Hematocrit (blood only) 24.1 % (34.1-44.9); Hemoglobin 7.7 g/dl (12.0-16.0)
[2022-10-08] MEDS ORDERED: SODIUM CHLORIDE 0.9% 250 ML IV PRN ×2 (15:55→16:35)
[2022-10-08] MEDS ORDERED: ACETAMINOPHEN 1,000 MG/100 ML VIAL IV PRN (17:26)
[2022-10-08] MEDS ORDERED: GLUCOSE 10 TAB/TUBE PO PRN (17:26)
[2022-10-08] MEDS ORDERED: GLUCAGON FOR INJ 1 MG VIAL SQ PRN (17:26)
[2022-10-08] MEDS ORDERED: ONDANSETRON INJ 2 MG/ML 2 ML VIAL IV PRN (17:26)
[2022-10-08] MEDS ORDERED: CARBOHYDRATES FOR HYPOGLYCEMIA PO PRN (17:26)
[2022-10-08] MEDS ORDERED: DEXTROSE 50% 50 ML SYRINGE IV PRN (17:26)
[2022-10-08] MEDS ORDERED: LACTATED RINGER'S 1,000 ML IV SCH (17:26)
[2022-10-08] MEDS ORDERED: GLUCOSE 40% GEL 15 GM TUBE PO PRN (17:26)
[2022-10-08 18:03] LABS: Hematocrit (blood only) 26.3 % (34.1-44.9); Hemoglobin 8.3 g/dl (12.0-16.0)
[2022-10-08 18:13] LABS: INR 1.8 (0.9-1.1); Prothrombin Time 18.2 Seconds (9.0-12.0)
[2022-10-08] MEDS: INSULIN ASPART PER UNIT SC SCH ×2 (19:01→21:21)
[2022-10-08] MEDS: LACTATED RINGER'S 1,000 ML IV SCH (19:01)
[2022-10-08] MEDS: LANTUS PER UNIT CHARGE SQ SCH (21:22)
[2022-10-08] MEDS: ROSUVASTATIN CALCIUM 10 MG TAB PO SCH (21:37)
[2022-10-08] MEDS: METOPROLOL TARTRATE 25 MG TAB PO SCH (21:37)
[2022-10-08] MEDS: TAMSULOSIN HCL 0.4 MG CAP PO SCH (21:37)
[2022-10-08] MEDS: CEROVITE ADV FORMULA TAB PO SCH (21:37)
[2022-10-09] MEDS: LACTATED RINGER'S 1,000 ML IV SCH ×2 (03:45→15:19)
[2022-10-09] MEDS: LEVOTHYROXINE SODIUM 100 MCG TABLET PO SCH (06:05)
[2022-10-09 06:55] LABS: Basophils # (auto) 0.05 K/uL (0-0.2); Basophils % (auto) 0.5 %; Eosinophils # (auto) 0.29 K/uL (0-0.50); Eosinophils % (auto) 2.7 %; Hematocrit (blood only) 27.1 % (34.1-44.9); Hemoglobin 8.8 g/dl (12.0-16.0); Immature Granulocytes # (auto) 0.05 K/uL (0.00-0.02); Immature Granulocytes % (auto) 0.5 %; Lymphocytes # (auto) 1.77 K/uL (1.2-3.4); Lymphocytes % (auto) 16.5 %; Mean Corpuscular Hemoglobin 27.5 pg (25.0-34.0); Mean Corpuscular Hgb Conc 32.5 g/dL (32.0-36.0); Mean Corpuscular Volume 84.7 fL (80.0-100.0); Monocytes % (auto) 7.4 %; Neutrophils # (auto) 7.78 K/uL (1.4-6.5); Neutrophils % (auto) 72.4 %; Platelet Count 138 K/uL (130-400); RDW Coefficient of Variation 15.2 % (11.5-14.5); White Blood Count 10.74 K/ul (4.8-10.8)
[2022-10-09 07:18] LABS: INR 1.4 (0.9-1.1); Prothrombin Time 14.8 Seconds (9.0-12.0)
[2022-10-09 07:33] LABS: Calcium 7.6 mg/dl (8.5-10.1); Magnesium 1.8 mg/dl (1.7-2.4); Potassium 4.3 mmol/L (3.5-5.1)
[2022-10-09 07:39] LABS: BUN Creatinine Ratio 19.1 (10-20); Est GFR (Non-African American) 25.9 ml/min
--- NOTE | 2022-10-09 08:33 | Urology Progress Note ---
Date of Service October 09, 2022 Assessment & Plan (1) Gross hematuria: Plan: Follow-up of gross hematuria. Patient is afebrile, hemodynamically stable. Lab work reviewedcreatinine 1.73, WBC 10.78, hemoglobin 8.8 (received 1 unit PRBC). Urine and blood cultures are pending. On IV ceftriaxonefollow cultures. Continue broad-spectrum antibiotics and narrow per sensitivity data when available. Anticoagulation on hold. Velásquez was draining dark maroon urine on initial assessment. No manual irrigation done overnight. I irrigated catheter at bedside with moderate amount of small clots evacuated. She had a [address] Asked nursing to upsize the catheter to 22 F and I would return to irrigate again. Irrigated again with only small amount of clots returned. Urine cleared to a translucent stevenson red after irrigation. Will reassess later today. Patient reassessed this afternoon with Dr. Del Real. Velásquez draining appropriately with stevenson red urine. No acute intervention planned. Patient can have diet. Maintain Velásquez catheter. Okay for nursing to hand irrigate prn clot retention or suprapubic pain. Gu will continue to follow. Admission and Anticipated Discharge Date Admission Date: October 08, 2022 Supervising Physician Co-Signing Physician Notes Hemoglobin stable Urine draining appropriately now CT reviewedhas some clot in the dependent portion of the bladder, however I think the majority is likely been irrigated out After upgrading the catheter I think we should allow her to drain appropriately, I may repeat manual irrigation tomorrow morning but we will avoid any surgical intervention Okay to have a diet Subjective Patient seen and examined at bedside this morning. No acute issues overnight. Denies flank, abdominal, or suprapubic pain. No fever or chills. No nausea or vomiting. Velásquez is intact and draining dark maroon urine. Review of Systems Constitutional: as per Subjective / HPI Gastrointestinal: as per Subjective / HPI Genitourinary: as per Subjective / HPI Physical Exam Constitutional: + frail appearing; no acute distress Respiratory: normal respiratory effort; no respiratory distress and no labored breathing Cardiovascular: Extremities: no pedal edema Gastrointestinal (Abdomen): Inspection/Auscultation: abdomen normal to inspection; abdomen not distended Percussion/Palpation: + abdomen tender (mildly tender to palpation across lower abdomen) and abdomen soft Musculoskeletal: Head/Neck/Chest: normocephalic Neurologic: moves all extremities and awake Psychiatric: Orientation: alert and oriented x 3 Genitourinary: Velásquez intact and draining dark maroon urine. Results & Data ([facility]) Vital Signs (Past 12 Hours) Vital Signs Temp Pulse Pulse Resp BP BP Pulse Ox 10/09/22 07:51 36.7 C 76 16 130/60 96 10/09/22 03:38 37.1 C 72 20 94/47 L 96 10/09/22 02:59 37.0 C 74 18 95/46 L 96 10/09/22 01:59 36.9 C 74 21 101/50 L 93 10/09/22 00:59 37.1 C 72 17 81/41 L 95 10/09/22 00:29 37.1 C 74 21 94/43 L 10/09/22 00:14 36.7 C 77 21 91/44 L 10/08/22 23:57 36.4 C L 75 22 84/43 L 93 10/08/22 23:09 36.8 C 77 18 92/46 L 93 O2 Del Method 10/09/22 07:51 Room Air 10/09/22 03:38 10/09/22 02:59 10/09/22 01:59 10/09/22 00:59 10/09/22 00:29 10/09/22 00:14 10/08/22 23:57 10/08/22 23:09 Room Air PG Care Time/CCT Total # of Minutes Spent Total Time Spent with Patient: Total time spent is greater than 50% in coordination of care (as documented) at patient's floor/unit and/or counseling patient: Coding Level of Care Code 50872 SUB INP/OBS CARE 3/50MIN Diagnoses Gross hematuria R31.0
[2022-10-09] MEDS: INSULIN ASPART PER UNIT SC SCH ×4 (09:14→21:22)
[2022-10-09] MEDS: LANTUS PER UNIT CHARGE SQ SCH ×2 (09:22→22:16)
[2022-10-09] MEDS: METOPROLOL TARTRATE 25 MG TAB PO SCH ×2 (09:26→21:21)
[2022-10-09] MEDS: AMIODARONE 200 MG TAB PO SCH (09:26)
[2022-10-09] MEDS: CEROVITE ADV FORMULA TAB PO SCH ×2 (09:26→21:21)
--- NOTE | 2022-10-09 10:51 | Electrocardiogram Report ---
Test Reason : Blood Pressure : / mmHG Vent. Rate : 106 BPM Atrial Rate : 106 BPM P-R Int : 184 ms QRS Dur : 096 ms QT Int : 356 ms P-R-T Axes : 005 -60 027 degrees QTc Int : 472 ms Sinus tachycardia Left axis deviation Incomplete right bundle branch block Abnormal ECG When compared with ECG of 24-AUG-2022 16:47, No significant change was found Confirmed by Ramsey Mascorro ([id number]) on 10/09/2022 10:50:54 AM Referred By: REFERRED SELF Confirmed By:Ramsey Mascorro
--- NOTE | 2022-10-09 11:00 | Hospitalist Progress Note ---
Date of Service October 09, 2022 Assessment & Plan (1) Gross hematuria: (2) Paroxysmal A-fib: (3) Chronic anticoagulation: (4) T2DM (type 2 diabetes mellitus): (5) Anemia of renal disease: (6) CKD (chronic kidney disease) stage 4, GFR 15-29 ml/min: Plan 87-year-old female Who has significant past medical history of PAF anticoagulated on warfarin, T2DM, CKD stage IV, hypothyroidism, anemia of renal disease, history of traumatic subdural hematoma who presents to ER secondary to what was thought to be vaginal bleeding that started on day of presentation. Pt found to have gross hematuria. Hemodynamically stable, though SBP high 90s. CT a/p: Persistent moderate bladder wall thickening with adjacent fat stranding/edema. However, there as been interval development of a moderate amount of blood clot within the bladder lumen raising the possibility of a hemorrhagic cystitis. Gross Hematuria Possible UTI Met SIRS on presentation with Wbc 12, HR > 90 Hb was 9.5 on admission. Got 1 pRBC. Hb is 8.8 today INR was 2.9 on presentation. Got Vit K. INR is 1.4 today Continue galdamez with irrigation Urology on board. May need cystoscopy. Discussed with Jennifer with Urology. They plan to monitor for now. Will resume diet and monitor Continue to monitor Hb. Patient has chronic anemia Continue IV Rocephin until urine culture results Urine and blood culture in lab She follows Dr. Harrington at [place] fo recurrent UTIs, tx with flomax and estrogren for incomplete bladder emptying ( has failed Myrbetriq and vesicare) Continue to hold prophylactic macrobid According to admitting Provider, Daughter reported Pt's BP does tend to run on lower side (high 90s) PAF on nursing home warfarin Continue amiodarone and metoprolol Continue to hold warfarin for now in view of acute blood loss anemia from hematuria Anemia of renal disease Receives epo as OP, occasional transfusion per OP notes Monitor Hb in view of acute blood loss anemia on top of her chronic anemia CKD-4 baseline cr 1.4-1.5 monitor closely avoid nephrotoxic agents T2DM Controlled Hemoglobin a1c 7.4 in Aug 2022 Continue to hold Januvia and glipizide Accuchecks AC Lantus/novolog per protocol DVT ppx: SCDS Dispo: PCU FULL CODE PCP: Paty Whalen Admission and Anticipated Discharge Date Admission Date: October 08, 2022 Subjective Patient seen and examined Reports hematuria Denied abd pain, flank pain, nausea, vomiting Denied dysuria, freq, urgency prior to admission Denied cough, chest pain, shortness of breath Denied dizziness, palpitation Physical Exam Constitutional: + well hydrated; no acute distress Elderly woman Eyes: PERRL, conjunctivae normal, anicteric sclerae ENMT: external ear and nose normal, oropharynx normal Respiratory: normal respiratory effort, lungs clear to auscultation Cardiovascular: Rate/Rhythm: regular rate and regular rhythm S1 S2 Gastrointestinal (Abdomen): normal bowel sounds, soft, nontender, no hepatosplenomegaly Musculoskeletal: No pedal edema Skin: Dressing over right taoism area (patient reports site of recent MOHS) Neurologic: PERRL, EOMI, accommodation nl, no face palsy, no dysarthria Psychiatric: A+Ox3, euthymic affect Genitourinary: Galdamez in situ with bloody urine No CVA tenderness Results & Data Results & Data ([facility]) Vital Signs (Past 12 Hours) Vital Signs Temp Pulse Pulse Resp BP BP Pulse Ox 10/09/22 07:51 36.7 C 76 16 130/60 96 10/09/22 03:38 37.1 C 72 20 94/47 L 96 10/09/22 02:59 37.0 C 74 18 95/46 L 96 10/09/22 01:59 36.9 C 74 21 101/50 L 93 10/09/22 00:59 37.1 C 72 17 81/41 L 95 10/09/22 00:29 37.1 C 74 21 94/43 L 10/09/22 00:14 36.7 C 77 21 91/44 L 10/08/22 23:57 36.4 C L 75 22 84/43 L 93 10/08/22 23:09 36.8 C 77 18 92/46 L 93 O2 Del Method 10/09/22 07:51 Room Air 10/09/22 03:38 10/09/22 02:59 10/09/22 01:59 10/09/22 00:59 10/09/22 00:29 10/09/22 00:14 10/08/22 23:57 10/08/22 23:09 Room Air Laboratory Results Abnormal lab results 0110/08/22 10/08/22 Range/Units 15:06 17:40 17:40 RBC (3.93-5.22) M/uL Hgb 7.7 L 8.3 L (12.0-16.0) g/dl Hct 24.1 L 26.3 L (34.1-44.9) % RDW Std Deviation (36.4-46.3) fL RDW Coeff of Hope (11.5-14.5) % Neut # (Auto) (1.4-6.5) K/uL Immature Gran # (Auto) (0.00-0.02) K/uL PT (9.0-12.0) Seconds INR (0.9-1.1) Chloride (98-107) mmol/L BUN (6-23) mg/dl Creatinine (0.6-1.2) mg/dl POC Glucose (70-99) mg/dl Calcium (8.5-10.1) mg/dl Crossmatch See Detail 10/08/22 10/08/22 10/09/22 Range/Units 17:40 21:10 04:22 RBC (3.93-5.22) M/uL Hgb (12.0-16.0) g/dl Hct (34.1-44.9) % RDW Std Deviation (36.4-46.3) fL RDW Coeff of Hope (11.5-14.5) % Neut # (Auto) (1.4-6.5) K/uL Immature Gran # (Auto) (0.00-0.02) K/uL PT 18.2 H (9.0-12.0) Seconds INR 1.8 H (0.9-1.1) Chloride (98-107) mmol/L BUN (6-23) mg/dl Creatinine (0.6-1.2) mg/dl POC Glucose 193 H 112 H (70-99) mg/dl Calcium (8.5-10.1) mg/dl Crossmatch 10/09/22 10/09/22 10/09/22 Range/Units 06:44 06:44 06:44 RBC 3.20 L (3.93-5.22) M/uL Hgb 8.8 L (12.0-16.0) g/dl Hct 27.1 L (34.1-44.9) % RDW Std Deviation 47.0 H (36.4-46.3) fL RDW Coeff of Hope 15.2 H (11.5-14.5) % Neut # (Auto) 7.78 H (1.4-6.5) K/uL Immature Gran # (Auto) 0.05 H (0.00-0.02) K/uL PT 14.8 H (9.0-12.0) Seconds INR 1.4 H (0.9-1.1) Chloride 110 H (98-107) mmol/L BUN 33 H (6-23) mg/dl Creatinine 1.73 H (0.6-1.2) mg/dl POC Glucose (70-99) mg/dl Calcium 7.6 L (8.5-10.1) mg/dl Crossmatch (1) T2DM (type 2 diabetes mellitus) Chronic kidney disease stage: stage 3 (moderate) Diabetes mellitus complication detail: with chronic kidney disease Diabetes mellitus complication status: with kidney complications Diabetes mellitus salvage determiner insulin use: without nursing home use Qualified Code(s): E11.22 - Type 2 diabetes mellitus with diabetic chronic kidney disease; N18.3 - Chronic kidney disease, stage 3 (moderate)
[2022-10-09] MEDS: cefTRIAXone SODIUM 1,000 MG in DEXTROSE 5% AD-VAN 50 ML IV SCH (14:21)
[2022-10-09 16:16] LABS: Hematocrit (blood only) 25.6 % (34.1-44.9); Hemoglobin 8.2 g/dl (12.0-16.0)
[2022-10-09] MEDS: TAMSULOSIN HCL 0.4 MG CAP PO SCH (21:21)
[2022-10-09] MEDS: ROSUVASTATIN CALCIUM 10 MG TAB PO SCH (21:21)
[2022-10-10] MEDS: LEVOTHYROXINE SODIUM 100 MCG TABLET PO SCH (06:07)
[2022-10-10 06:38] LABS: Basophils # (auto) 0.04 K/uL (0-0.2); Basophils % (auto) 0.5 %; Eosinophils # (auto) 0.32 K/uL (0-0.50); Eosinophils % (auto) 4.2 %; Hematocrit (blood only) 25.6 % (34.1-44.9); Hemoglobin 8.2 g/dl (12.0-16.0); Immature Granulocytes # (auto) 0.03 K/uL (0.00-0.02); Immature Granulocytes % (auto) 0.4 %; Lymphocytes # (auto) 1.27 K/uL (1.2-3.4); Lymphocytes % (auto) 16.9 %; Mean Corpuscular Hemoglobin 26.9 pg (25.0-34.0); Mean Corpuscular Volume 83.9 fL (80.0-100.0); Mean Platelet Volume 10.2 fL (9.4-12.3); Monocytes # (auto) 0.49 K/uL (0.24-0.82); Monocytes % (auto) 6.5 %; Neutrophils # (auto) 5.38 K/uL (1.4-6.5); Neutrophils % (auto) 71.5 %; Platelet Count 134 K/uL (130-400); RDW Coefficient of Variation 15.7 % (11.5-14.5); RDW Standard Deviation 48.3 fL (36.4-46.3); Red Blood Count 3.05 M/uL (3.93-5.22); White Blood Count 7.53 K/ul (4.8-10.8)
[2022-10-10 07:00] LABS: INR 1.3 (0.9-1.1); Prothrombin Time 13.5 Seconds (9.0-12.0)
[2022-10-10 07:13] LABS: Calcium 7.8 mg/dl (8.5-10.1); Potassium 4.3 mmol/L (3.5-5.1)
[2022-10-10 07:18] LABS: BUN Creatinine Ratio 19.3 (10-20); Creatinine Clr Calc Pharmacy 17.7 ml/min; Est GFR (African American) 31.6 ml/min; Est GFR (Non-African American) 27.2 ml/min
[2022-10-10] MEDS: METOPROLOL TARTRATE 25 MG TAB PO SCH ×2 (09:03→20:46)
[2022-10-10] MEDS: CEROVITE ADV FORMULA TAB PO SCH ×2 (09:03→20:45)
[2022-10-10] MEDS: INSULIN ASPART PER UNIT SC SCH ×4 (09:04→20:54)
[2022-10-10] MEDS: AMIODARONE 200 MG TAB PO SCH (09:04)
[2022-10-10] MEDS: LANTUS PER UNIT CHARGE SQ SCH ×2 (09:06→20:53)
--- NOTE | 2022-10-10 09:48 | Urology Progress Note ---
Date of Service October 10, 2022 Assessment & Plan (1) Gross hematuria: (2) Acute UTI: Plan Responding well to antibiotics and time off of anticoagulation Anticipate her urine will continue to clear over the next 24 to 48 hours It is likely very reasonable to offer a voiding trial prior to discharge home Cultures do not seem to be appropriately identifying a single pathogen We will have to pick empiric antibiotics for home to continue coverage She will have to resume anticoagulation after her urine has remained clear for a few days From a standpoint I think she is probably within 24 to 48 hours of sufficient stability for discharge home Admission and Anticipated Discharge Date Admission Date: October 08, 2022 Subjective Progressed well overnight Did not require any manual irrigation of her catheter and her urine is clearing Still with blood but certainly better than it was yesterday Hemoglobin stable Good urine output Feeling well today, seems to be appropriately interactive Physical Exam Physical Exam: Urine relatively translucent but still red, cranberry juice like coloration Results & Data ([facility]) Vital Signs (Past 12 Hours) Vital Signs Temp Pulse Pulse Resp BP Pulse Ox O2 Del Method 10/10/22 07:41 71 10/10/22 07:23 36.6 C 72 16 118/60 95 Room Air 10/10/22 04:38 36.8 C 10/10/22 03:05 37.3 C 74 17 102/48 L 93 Room Air 10/09/22 22:04 94 H 10/09/22 22:42 37.1 C 72 17 102/50 L 94 Room Air PG Care Time/CCT Total # of Minutes Spent Total Time Spent with Patient: Total time spent is greater than 50% in coordination of care (as documented) at patient's floor/unit and/or counseling patient: Coding Level of Care Code 80478 SUB INP/OBS CARE 2/35MIN Diagnoses Gross hematuria R31.0 Acute UTI N39.0
--- NOTE | 2022-10-10 14:06 | Hospitalist Progress Note ---
Date of Service October 10, 2022 Assessment & Plan (1) Gross hematuria: (2) Paroxysmal A-fib: (3) Chronic anticoagulation: (4) T2DM (type 2 diabetes mellitus): (5) Anemia of renal disease: (6) CKD (chronic kidney disease) stage 4, GFR 15-29 ml/min: Plan 87-year-old female Who has significant past medical history of PAF anticoagulated on warfarin, T2DM, CKD stage IV, hypothyroidism, anemia of renal disease, history of traumatic subdural hematoma who presents to ER secondary to what was thought to be vaginal bleeding that started on day of presentation. Pt found to have gross hematuria. Hemodynamically stable, though SBP high 90s. CT a/p: Persistent moderate bladder wall thickening with adjacent fat stranding/edema. However, there as been interval development of a moderate amount of blood clot within the bladder lumen raising the possibility of a hemorrhagic cystitis. Gross Hematuria Possible UTI Met SIRS on presentation with Wbc 12, HR > 90 Hb was 9.5 on admission. Got 1 pRBC. Hb has been stable in 8s over the past day INR was 2.9 on presentation. Got Vit K. INR is 1.3 today Urologist recs noted Continue to monitor urine for clearance Plan to do voiding trial tomorrow Continue to monitor Hb. Patient has chronic anemia Continue IV Rocephin She follows Dr. Harrington at [place] fo recurrent UTIs, tx with flomax and estrogren for incomplete bladder emptying ( has failed Myrbetriq and vesicare) Continue to hold prophylactic macrobid According to admitting Provider, Daughter reported Pt's BP does tend to run on lower side (high 90s) PAF on retirement warfarin Continue amiodarone and metoprolol Continue to hold warfarin for now in view of acute blood loss anemia from hematuria Anemia of renal disease Receives epo as OP, occasional transfusion per OP notes Monitor Hb in view of acute blood loss anemia on top of her chronic anemia CKD-4 baseline cr 1.4-1.5 Cr is 1.66 today Monitor Avoid nephrotoxic agents T2DM Controlled Hemoglobin a1c 7.4 in Aug 2022 Continue to hold Januvia and glipizide Accuchecks AC Lantus/novolog per protocol DVT ppx: SCDS Dispo: PCU FULL CODE PCP: Paty Whalen Admission and Anticipated Discharge Date Admission Date: October 08, 2022 Subjective Patient seen and examined Denied any new complaints Still having hematuria Denied abd pain, flank pain, nausea, vomiting Denied cough, chest pain, shortness of breath Denied dizziness, palpitation Physical Exam Constitutional: + well hydrated; no acute distress Eyes: PERRL, conjunctivae normal, anicteric sclerae ENMT: external ear and nose normal, oropharynx normal Respiratory: normal respiratory effort, lungs clear to auscultation Cardiovascular: Rate/Rhythm: regular rate and regular rhythm S1 S2 Gastrointestinal (Abdomen): normal bowel sounds, soft, nontender, no hepatosplenomegaly Musculoskeletal: No pedal edema Neurologic: PERRL, EOMI, accommodation nl, no face palsy, no dysarthria Psychiatric: A+Ox3, euthymic affect Genitourinary: Velásquez in situ Results & Data Results & Data ([facility]) Vital Signs (Past 12 Hours) Vital Signs Temp Pulse Pulse Resp BP Pulse Ox O2 Del Method 10/10/22 11:18 36.8 C 70 18 101/53 L 94 Room Air 10/10/22 07:41 71 10/10/22 07:23 36.6 C 72 16 118/60 95 Room Air 10/10/22 04:38 36.8 C 10/10/22 03:05 37.3 C 74 17 102/48 L 93 Room Air Laboratory Results Abnormal lab results 10/09/22 10/09/22 10/10/22 Range/Units 15:57 16:20 06:17 RBC 3.05 L (3.93-5.22) M/uL Hgb 8.2 L 8.2 L (12.0-16.0) g/dl Hct 25.6 L 25.6 L (34.1-44.9) % RDW Std Deviation 48.3 H (36.4-46.3) fL RDW Coeff of Hope 15.7 H (11.5-14.5) % Immature Gran # (Auto) 0.03 H (0.00-0.02) K/uL PT (9.0-12.0) Seconds INR (0.9-1.1) Chloride (98-107) mmol/L BUN (6-23) mg/dl Creatinine (0.6-1.2) mg/dl POC Glucose 108 H (70-99) mg/dl Calcium (8.5-10.1) mg/dl 10/10/22 10/10/22 10/10/22 Range/Units 06:17 06:17 11:16 RBC (3.93-5.22) M/uL Hgb (12.0-16.0) g/dl Hct (34.1-44.9) % RDW Std Deviation (36.4-46.3) fL RDW Coeff of Hope (11.5-14.5) % Immature Gran # (Auto) (0.00-0.02) K/uL PT 13.5 H (9.0-12.0) Seconds INR 1.3 H (0.9-1.1) Chloride 109 H (98-107) mmol/L BUN 32 H (6-23) mg/dl Creatinine 1.66 H (0.6-1.2) mg/dl POC Glucose 114 H (70-99) mg/dl Calcium 7.8 L (8.5-10.1) mg/dl (1) T2DM (type 2 diabetes mellitus) Diabetes mellitus teacher's aide insulin use: without teacher's aide use Diabetes mellitus complication status: with kidney complications Diabetes mellitus complication detail: with chronic kidney disease Chronic kidney disease stage: stage 3 (moderate) Qualified Code(s): E11.22 - Type 2 diabetes mellitus with diabetic chronic kidney disease; N18.3 - Chronic kidney disease, stage 3 (moderate)
[2022-10-10] MEDS: cefTRIAXone SODIUM 1,000 MG in DEXTROSE 5% AD-VAN 50 ML IV SCH (14:19)
[2022-10-10] MEDS: ROSUVASTATIN CALCIUM 10 MG TAB PO SCH (20:45)
[2022-10-10] MEDS: TAMSULOSIN HCL 0.4 MG CAP PO SCH (20:46)
[2022-10-11] MEDS: LEVOTHYROXINE SODIUM 100 MCG TABLET PO SCH (05:54)
[2022-10-11 06:23] LABS: Hematocrit (blood only) 25.7 % (34.1-44.9); Hemoglobin 8.2 g/dl (12.0-16.0); Mean Corpuscular Hgb Conc 31.9 g/dL (32.0-36.0); Mean Corpuscular Volume 84.5 fL (80.0-100.0); Mean Platelet Volume 10.5 fL (9.4-12.3); Platelet Count 151 K/uL (130-400); RDW Coefficient of Variation 15.2 % (11.5-14.5); RDW Standard Deviation 46.5 fL (36.4-46.3); Red Blood Count 3.04 M/uL (3.93-5.22); White Blood Count 6.81 K/ul (4.8-10.8)
[2022-10-11 07:07] LABS: Calcium 7.9 mg/dl (8.5-10.1); Potassium 4.4 mmol/L (3.5-5.1)
[2022-10-11 07:13] LABS: BUN Creatinine Ratio 26.1 (10-20); Creatinine Clr Calc Pharmacy 26.4 ml/min; Est GFR (African American) 51.3 ml/min; Est GFR (Non-African American) 44.3 ml/min
--- NOTE | 2022-10-11 08:45 | Urology Progress Note ---
Date of Service October 11, 2022 Assessment & Plan (1) Acute UTI: (2) Gross hematuria: Plan UTI with hematuria in the setting of anticoagulation Continue Velásquez catheter for now Likely voiding trial tomorrow if she is clear I would like her to be clear for 48 hours before resuming anticoagulation, however, she certainly can go home before restarting any anticoagulation Admission and Anticipated Discharge Date Admission Date: October 08, 2022 Subjective Continues to improve No major issues overnight Hemodynamically stable Good urine output Urine continues to progressively clear Physical Exam Physical Exam: Relatively clear urine in the tubing with some blood clots in the bag Results & Data ([facility]) Vital Signs (Past 12 Hours) Vital Signs Pulse Pulse Resp BP Pulse Ox O2 Del Method 10/11/22 08:15 71 19 118/53 L 91 Room Air 10/11/22 02:56 72 16 124/53 L 93 Room Air 10/10/22 22:26 63 PG Care Time/CCT Total # of Minutes Spent Total Time Spent with Patient: Total time spent is greater than 50% in coordination of care (as documented) at patient's floor/unit and/or counseling patient: Coding Level of Care Code 28222 SUB INP/OBS CARE 2/35MIN Diagnoses Acute UTI N39.0 Gross hematuria R31.0
[2022-10-11] MEDS: INSULIN ASPART PER UNIT SC SCH ×4 (08:55→20:21)
[2022-10-11] MEDS: CEROVITE ADV FORMULA TAB PO SCH ×2 (08:56→20:08)
[2022-10-11] MEDS: AMIODARONE 200 MG TAB PO SCH (08:56)
[2022-10-11] MEDS: LANTUS PER UNIT CHARGE SQ SCH ×2 (08:56→20:22)
[2022-10-11] MEDS: METOPROLOL TARTRATE 25 MG TAB PO SCH ×2 (08:58→20:08)
--- NOTE | 2022-10-11 11:41 | Hospitalist Progress Note ---
Date of Service October 11, 2022 Assessment & Plan (1) Gross hematuria: (2) Paroxysmal A-fib: (3) Chronic anticoagulation: (4) T2DM (type 2 diabetes mellitus): (5) Anemia of renal disease: (6) CKD (chronic kidney disease) stage 4, GFR 15-29 ml/min: Plan 87-year-old female Who has significant past medical history of PAF anticoagulated on warfarin, T2DM, CKD stage IV, hypothyroidism, anemia of renal disease, history of traumatic subdural hematoma who presents to ER secondary to what was thought to be vaginal bleeding that started on day of presentation. Pt found to have gross hematuria. Hemodynamically stable, though SBP high 90s. CT a/p: Persistent moderate bladder wall thickening with adjacent fat stranding/edema. However, there as been interval development of a moderate amount of blood clot within the bladder lumen raising the possibility of a hemorrhagic cystitis. Gross Hematuria Possible UTI Met SIRS on presentation with Wbc 12, HR > 90 Hb was 9.5 on admission. Got 1 pRBC. Hb has been stable in 8s over the past day INR was 2.9 on presentation. Got Vit K for reversal Urologist recs noted Continue to monitor urine for clearance Continue galdamez for today per urologist Continue to monitor Hb. Patient has chronic anemia Continue IV Rocephin Urine culture noted 5000cfu/ml yeast. Likely contaminated sample She follows Dr. Harrington at [place] fo recurrent UTIs, tx with flomax and estrogen for incomplete bladder emptying ( has failed Myrbetriq and vesicare) Continue to hold prophylactic macrobid According to admitting Provider, Daughter reported Pt's BP does tend to run on lower side (high 90s) PAF on [facility] warfarin Continue amiodarone and metoprolol Continue to hold warfarin for now in view of acute blood loss anemia from hematuria Plan to resume anticoagulation 48h after hematuria completely clears Anemia of renal disease Receives epo as OP, occasional transfusion per OP notes Monitor Hb in view of acute blood loss anemia on top of her chronic anemia CKD-4 baseline cr 1.4-1.5 Cr is 1.11 today Monitor Avoid nephrotoxic agents T2DM Controlled Hemoglobin a1c 7.4 in Aug 2022 Continue to hold Januvia and glipizide Accuchecks AC Lantus/novolog per protocol DVT ppx: SCDS Dispo: PCU FULL CODE PCP: Paty Whalen Admission and Anticipated Discharge Date Admission Date: October 08, 2022 Subjective Patient seen and examined Denied any new complaints Hematuria clearing Denied abd pain, flank pain, nausea, vomiting Denied cough, chest pain, shortness of breath Denied dizziness, palpitation Physical Exam Constitutional: + well hydrated; no acute distress Eyes: PERRL, conjunctivae normal, anicteric sclerae ENMT: external ear and nose normal, oropharynx normal Respiratory: normal respiratory effort, lungs clear to auscultation Cardiovascular: Rate/Rhythm: regular rate and regular rhythm S1 S2 Gastrointestinal (Abdomen): normal bowel sounds, soft, nontender, no hepatosplenomegaly Musculoskeletal: No pedal edema Neurologic: PERRL, EOMI, accommodation nl, no face palsy, no dysarthria Psychiatric: A+Ox3, euthymic affect Results & Data Results & Data ([facility]) Vital Signs (Past 12 Hours) Vital Signs Pulse Pulse Resp BP Pulse Ox O2 Del Method 10/11/22 11:30 70 23 127/60 97 Room Air 10/11/22 08:18 67 10/11/22 08:15 71 19 118/53 L 91 Room Air 10/11/22 02:56 72 16 124/53 L 93 Room Air Laboratory Results Abnormal lab results 10/10/22 10/11/22 10/11/22 Range/Units 20:31 06:03 06:03 RBC 3.04 L (3.93-5.22) M/uL Hgb 8.2 L (12.0-16.0) g/dl Hct 25.7 L (34.1-44.9) % MCHC 31.9 L (32.0-36.0) g/dL RDW Std Deviation 46.5 H (36.4-46.3) fL RDW Coeff of Hope 15.2 H (11.5-14.5) % BUN 29 H (6-23) mg/dl BUN/Creatinine Ratio 26.1 H (10-20) Glucose 114 H (70-99(Fasting)) mg/dl POC Glucose 185 H (70-99) mg/dl Calcium 7.9 L (8.5-10.1) mg/dl 10/11/22 10/11/22 Range/Units 07:10 11:07 RBC (3.93-5.22) M/uL Hgb (12.0-16.0) g/dl Hct (34.1-44.9) % MCHC (32.0-36.0) g/dL RDW Std Deviation (36.4-46.3) fL RDW Coeff of Hope (11.5-14.5) % BUN (6-23) mg/dl BUN/Creatinine Ratio (10-20) Glucose (70-99(Fasting)) mg/dl POC Glucose 112 H 137 H (70-99) mg/dl Calcium (8.5-10.1) mg/dl (1) T2DM (type 2 diabetes mellitus) Diabetes mellitus [facility] insulin use: without [facility] use Diabetes mellitus complication status: with kidney complications Diabetes mellitus complication detail: with chronic kidney disease Chronic kidney disease stage: stage 3 (moderate) Qualified Code(s): E11.22 - Type 2 diabetes mellitus with diabetic chronic kidney disease; N18.3 - Chronic kidney disease, stage 3 (moderate)
[2022-10-11] MEDS: cefTRIAXone SODIUM 1,000 MG in DEXTROSE 5% AD-VAN 50 ML IV SCH (14:00)
[2022-10-11] MEDS: TAMSULOSIN HCL 0.4 MG CAP PO SCH (20:08)
[2022-10-11] MEDS: ROSUVASTATIN CALCIUM 10 MG TAB PO SCH (20:09)
[2022-10-11] MEDS ORDERED: MELATONIN 3 MG TAB PO SCH (21:00)
[2022-10-12] MEDS: LEVOTHYROXINE SODIUM 100 MCG TABLET PO SCH (06:32)
[2022-10-12 08:14] LABS: Hematocrit (blood only) 26.6 % (34.1-44.9); Hemoglobin 8.6 g/dl (12.0-16.0); Mean Corpuscular Hgb Conc 32.3 g/dL (32.0-36.0); Mean Corpuscular Volume 83.4 fL (80.0-100.0); Mean Platelet Volume 10.8 fL (9.4-12.3); Platelet Count 190 K/uL (130-400); RDW Coefficient of Variation 15.3 % (11.5-14.5); Red Blood Count 3.19 M/uL (3.93-5.22); White Blood Count 7.35 K/ul (4.8-10.8)
[2022-10-12 08:33] LABS: INR 1.2 (0.9-1.1); Prothrombin Time 13.1 Seconds (9.0-12.0)
[2022-10-12] MEDS: CEROVITE ADV FORMULA TAB PO SCH (09:00)
[2022-10-12] MEDS: METOPROLOL TARTRATE 25 MG TAB PO SCH (09:00)
[2022-10-12] MEDS: INSULIN ASPART PER UNIT SC SCH ×2 (09:11→12:04)
[2022-10-12 09:18] LABS: Calcium 8.2 mg/dl (8.5-10.1); Creatinine Clr Calc Pharmacy 22.2 ml/min; Est GFR (African American) 41.6 ml/min; Est GFR (Non-African American) 35.9 ml/min; Potassium 4.1 mmol/L (3.5-5.1)
[2022-10-12] MEDS: LANTUS PER UNIT CHARGE SQ SCH (09:30)
[2022-10-12] MEDS: AMIODARONE 200 MG TAB PO SCH (09:30)
--- NOTE | 2022-10-12 10:58 | Urology Progress Note ---
Date of Service October 12, 2022 Assessment & Plan (1) Acute UTI: (2) Gross hematuria: Plan UTI with hematuria in the setting of anticoagulation Afebrile and hemodynamically stable. Labs reviewed-WBC 7.35, hemoglobin 8.6, creatinine 1.32. Urine culture final with yeast, blood cultures preliminary no growth. Continues on IV ceftriaxone. Velásquez catheter currently draining cloudy yellow urine. Can likely have voiding trial today or tomorrow given urine remains clear. Ideally urine would remain clear for 48 hours before resuming anticoagulation. Patient follows with Dr. Harrington of [facility] urology. Urology to follow peripherally. Please contact us with any further questions, c oncerns, or changes in patient status. Admission and Anticipated Discharge Date Admission Date: October 08, 2022 Subjective Pt examined at bedside this AM. No acute distress. Denies any significant pain or discomfort. Velásquez catheter draining cloudy yellow urine with sediment noted in tubing. Review of Systems Constitutional: as per Subjective / HPI Genitourinary: as per Subjective / HPI Physical Exam Constitutional: no acute distress Respiratory: no respiratory distress and no labored breathing Neurologic: awake Psychiatric: Orientation: alert and oriented x 3 Genitourinary: Velásquez catheter intact Results & Data ([facility]) Vital Signs (Past 12 Hours) Vital Signs Temp Pulse Pulse Resp BP Pulse Ox O2 Del Method 10/12/22 07:30 65 10/12/22 07:47 36.8 C 71 17 112/56 L 97 Room Air 10/12/22 03:17 36.8 C 65 19 107/50 L 95 Room Air PG Care Time/CCT Total # of Minutes Spent Total Time Spent with Patient: Total time spent is greater than 50% in coordination of care (as documented) at patient's floor/unit and/or counseling patient: Coding Level of Care Code 91815 SUB INP/OBS CARE 2/35MIN Diagnoses Acute UTI N39.0 Gross hematuria R31.0
--- NOTE | 2022-10-12 11:26 | Discharge Summary ---
Discharge Summary Date of Service October 12, 2022 Notes For Next Care Provider Patient to follow up her urologist Medication Changes From Visit Discharged on cefdinir for another 3 days to complete treatment. Can resume home nitrofurantoin afterwards. Do not resume warfarin until 10/14/22 so far hematuria did not recur Admission HPI Per Admitting Provider This is an 87-year-old female Who has significant past medical history of PAF anticoagulated on warfarin, T2DM, CKD stage IV, hypothyroidism, anemia of renal disease, history of traumatic subdural hematoma who presents to ER secondary to what was thought to be vaginal bleeding since 3 this morning. She currently resides at [facility]. She was recently hospitalized 08/24-08/26 secondary to a E. coli UTI was treated with antibiotics appropriately. Since that discharge she states she has been feeling well up until this morning when she noticed significant bleeding coming from her vagina. She denies any dionicio abdominal pain when this occurred. She further denied any recent lightheadedness, dizziness, fever, chills, sweats, nausea, vomiting, diarrhea, melena or hematochezia. She does admit to having history of hysterectomy. She does have history of frequent UTIs in the past and follows with urology. Her appetite has otherwise been normal. She has been taking her medications as prescribed. In ED patient's blood pressure was on the lower side 90s over 40s but otherwise was hemodynamically stable. She was found to have a significant amount of bleeding coming from what was felt to be her urinary tract. A Galdamez catheter was placed and gross hematuria was noted. CT abdomen pelvis was performed which showed persistent moderate bladder wall thickening with adjacent fat stranding and edema. There has been interval development of moderate amount of blood clot within the bladder lumen raising possibility of hemorrhagic cystitis. Also noted was interval improvement in Bowel thickening of the sigmoid colon consistent with a resolving colitis.Case was discussed with ER provider along with urology [facility]. It is recommended patient be admitted to hospital due to concern for possible hemorrhagic cystitis, infection, incomplete emptying of bladder or possible underlying malignancy.Her hemoglobin was 9.5 which appears to be her baseline, INR elevated 2.9 and BUN and creatinine 31 and 1.57. She did have mild leukocytosis as well as a urinalysis consistent with possible underlying infection. Admission Exam Per Admitting Provider Constitutional: Elderly, Fraile, F vitals as above, NAD, sitting up in bed, appears weak but is able to answer all questions Head: Normocephalic, Atraumatic, b/l temporal wasting Eyes: PERRL, conjunctivae normal, anicteric sclerae ENMT: external ear and nose normal, oropharynx normal , dry membranes Neck: trachea midline, no thyromegaly normal visual inspection Respiratory: normal respiratory effort, lungs clear to auscultation, no wheeze, rales, rhonchi. Normal insp/exp effort, no accessory muscle use Cardiovascular: RRR, no murmur, no edema Vessels: no JVD or carotid bruit Chest: normal inspection of chest Abdomen: normal bowel sounds, soft, mild tenderness to palp in suprapubic region, no rebound or guarding, no hepatosplenomegaly Musculoskeletal: no cyanosis or clubbing, arom x 4 Skin: no rashes, warm and dry mild turgor Neurologic: PERRL, EOMI, accommodation nl, no face palsy, no dysarthria CN's II-XI intact bilaterally and moves all extremities Psychiatric: A+Ox3, euthymic affect Lymphatic: no cervical or axillary lymphadenopathy : + galdamez with gross hematuria Principal Dx & Hospital Course #1 = Principal Diagnosis (1) Gross hematuria: (2) Paroxysmal A-fib: (3) Chronic anticoagulation: (4) T2DM (type 2 diabetes mellitus): (5) Anemia of renal disease: (6) CKD (chronic kidney disease) stage 4, GFR 15-29 ml/min: Plan 87-year-old female Who has significant past medical history of PAF anticoagulated on warfarin, T2DM, CKD stage IV, hypothyroidism, anemia of renal disease, history of traumatic subdural hematoma who presents to ER secondary to what was thought to be vaginal bleeding that started on day of presentation. Pt found to have gross hematuria. Hemodynamically stable, though SBP high 90s. CT Abdomen and pelvis: Persistent moderate bladder wall thickening with adjacent fat stranding/edema. However, there as been interval development of a moderate amount of blood clot within the bladder lumen raising the possibility of a hemorrhagic cystitis. Gross Hematuria Possible UTI Met SIRS on presentation with Wbc 12, HR > 90 Hb was 9.5 on admission. INR was 2.9 on presentation. Got Vit K for reversal Urologist evaluated and recommended conservative management Urinalysis noted >30 WBC, trace leuk esterase, +1bacteria Urine culture noted 5000cfu/ml yeast. Likely contaminated sample Patient was treated with IV ceftriaxone inpatient Her warfarin was held Got 1 pRBC. Hb has been stable in 8s over the past day Hematuria resolved Antibiotics changed to cefdinir to complete treatment. Can resume her chronic prophylactic macrobid afterwards She follows Dr. Harrington at [facility] fo recurrent UTIs, tx with flomax and estrogen for incomplete bladder emptying ( has failed Myrbetriq and vesicare) PAF on supervisor intermediates warfarin Continue amiodarone and metoprolol warfarin still on hold Plan to resume anticoagulation 48h after hematuria completely clears. Can resume on 10/14/22 so far hematuria do no recur Anemia of renal disease Receives epo as OP, occasional transfusion per OP notes CKD-4 Baseline cr 1.4-1.5 Cr is 1.32 today T2DM Controlled Hemoglobin a1c 7.4 in Aug 2022 Continue home antidiabetic regimen Discharge Exam Constitutional + well hydrated; no acute distress Eyes PERRL, conjunctivae normal, anicteric sclerae ENMT external ear and nose normal, oropharynx normal Respiratory normal respiratory effort, lungs clear to auscultation Cardiovascular Rate/Rhythm: regular rate and regular rhythm S1 S2 Gastrointestinal (Abdomen) normal bowel sounds, soft, nontender, no hepatosplenomegaly Musculoskeletal No pedal edema Neurologic PERRL, EOMI, accommodation nl, no face palsy, no dysarthria Psychiatric A+Ox3, euthymic affect Updated Medication List Medication Instructions Recorded Confirmed Type aspirin 81 mg tablet,delayed 81 mg PO 3XWK 10/31/18 10/08/22 History release (Orquidea Low Dose Aspirin) fluticasone propionate 50 2 spray intranasal HS PRN Nasal 10/31/18 10/08/22 History mcg/actuation nasal Congestion spray,suspension (Flonase Allergy Relief) levothyroxine 100 mcg tablet 100 mcg PO DAILYBB 10/31/18 10/08/22 History tamsulosin 0.4 mg capsule (Flomax) 0.4 mg PO HS #90 caps 07/11/19 10/08/22 Rx docusate sodium 100 mg capsule 100 mg PO HS PRN Constipation 06/25/20 10/08/22 History (Col-Rite) glipizide 5 mg tablet 10 mg PO QAM 06/25/20 10/08/22 History rosuvastatin 10 mg tablet 10 mg PO HS 06/25/20 10/08/22 History polyethylene glycol 3350 17 gram 17 g PO DAILY PRN constipation #30 09/05/20 10/08/22 Rx oral powder packet (Miralax) ea cholecalciferol (vitamin D3) 25 50 mcg PO DAILY 11/09/20 10/08/22 History mcg (1,000 unit) tablet (Vitamin D3) sitagliptin phosphate 25 mg tablet 25 mg PO DAILY 11/09/20 10/08/22 History (Januvia) vit C 250 mg-vit E 90 mg-zinc 40 1 tab PO BID 11/09/20 10/08/22 History mg-copper 1 ov-vedbni-hcfudw capsule (PreserVision AREDS-2) warfarin 1 mg tablet 1 mg PO 4XWK 11/09/20 10/08/22 History metoprolol tartrate 25 mg tablet 12.5 mg PO BID #60 tabs 11/18/20 10/08/22 Rx estradiol 0.01% (0.1 mg/gram) 1 g vaginal QPM 12/13/20 10/08/22 History vaginal cream Saccharomyces boulardii 250 mg 250 mg PO DAILY 03/15/22 10/08/22 History capsule acetaminophen 500 mg tablet 500 mg PO Q8H PRN FEVER 03/15/22 10/08/22 History (Tylenol Extra Strength) >100.5/MODERATE PAIN amiodarone 200 mg tablet 200 mg PO QAM 03/15/22 10/08/22 History amoxicillin 500 mg capsule 2,000 mg PO DIRECTED PRN PRIOR 03/15/22 10/08/22 History TO DENTAL APPT. betamethasone valerate 0.12 % 1 applic topical HS 03/15/22 10/08/22 History topical foam diclofenac sodium 1 % topical gel 2 g topical Q12H PRN Pain 03/15/22 10/08/22 History ferrous sulfate 325 mg (65 mg 325 mg PO DAILY 03/15/22 10/08/22 History iron) tablet guaifenesin 600 mg tablet, 600 mg PO Q12H PRN Congestion 03/15/22 10/08/22 History extended release 12 hr hydroxyzine HCl 10 mg tablet 10 mg PO Q6H PRN Anxiety 03/15/22 10/08/22 History ketoconazole 2 % shampoo 1 ea topical 3XWK 03/15/22 10/08/22 History loperamide 2 mg capsule 2 mg PO Q8H PRN Diarrhea 03/15/22 10/08/22 History melatonin 3 mg tablet 3 mg PO HS 03/15/22 10/08/22 History nitrofurantoin 100 mg PO HS 08/24/22 10/08/22 History monohydrate/macrocrystals 100 mg capsule warfarin 1 mg tablet 1.5 mg PO 3XWK 08/24/22 10/08/22 History cefdinir 300 mg capsule 300 mg PO BID 3 days #6 caps 10/12/22 Rx Hospital Stay Data Consultations 10/08/22 12:52 Consult Urology Routine 10/08/22 13:14 ED Decision to Admit Stat Diagnostic Imagining Performed 10/08/22 10:30 CT abd pelvis wo con Stat Pending Results Patient Have Any Pending Studies at Discharge: No Discharge Instructions Given to Patient (Per Discharging Provider) Mrs Cardenas. You were brought to the hospital for bloody urine. You were treated for urinary tract infection and your warfarin was put on hold. You received one unit of blood Please take oral antibiotics (cefdinir) for next 3 days to complete treatment. You can resume your nitrofurantoin afterwards. DO NOT RESUME WARFARIN UNTIL Wednesday10/14/22 so far your urine remains clear. Please continue to follow up with your Urologist and Primary Doctor. It was a pleasure taking care of you Total Time Total Time Spent Total Time Spent (In Minutes): 50 Total Time Includes: Examination of the Patient, Discharge Planning and Medication Reconciliation
== END 2022-10-12 15:34 | disposition home or self-care (01) | DRG 690 ==
LOC: ED 08:58 → SUATTDRO 13:51 → 2E 13:51
DX: Z79.890 Hormone replacement therapy; I48.0 Paroxysmal atrial fibrillation; Z79.2 Long term (current) use of antibiotics; Z88.0 Allergy status to penicillin; Z79.899 Other long term (current) drug therapy; Z79.82 Long term (current) use of aspirin; E03.9 Hypothyroidism, unspecified; Z87.440 Personal history of urinary (tract) infections; D63.1 Anemia in chronic kidney disease; E11.22 Type 2 diabetes mellitus with diabetic chronic kidney disease; R65.10 Systemic inflammatory response syndrome (SIRS) of non-infectious origin without acute organ dysfunction; R33.9 Retention of urine, unspecified; Z88.7 Allergy status to serum and vaccine; N30.91 Cystitis, unspecified with hematuria; E78.5 Hyperlipidemia, unspecified; N18.4 Chronic kidney disease, stage 4 (severe); Z79.01 Long term (current) use of anticoagulants; Z79.84 Long term (current) use of oral hypoglycemic drugs; Z88.2 Allergy status to sulfonamides; Z87.820 Personal history of traumatic brain injury; I12.9 Hypertensive chronic kidney disease with stage 1 through stage 4 chronic kidney disease, or unspecified chronic kidney disease; Z88.1 Allergy status to other antibiotic agents; Z88.8 Allergy status to other drugs, medicaments and biological substances; E11.65 Type 2 diabetes mellitus with hyperglycemia

== ENCOUNTER 2022-10-27 22:58 | Inpatient (IN) ==
[2022-10-28 00:19] LABS: Alanine Aminotransferase 46 U/L (7-52); Albumin Globulin Ratio 1.2 (0.9-2); Albumin Level 3.5 gm/dl (3.4-5.0); Alkaline Phosphatase 71 U/L (34-104); Anion Gap 6 (3-11); Aspartate Aminotransferase 38 U/L (13-39); BUN Creatinine Ratio 22.1 (10-20); Bilirubin,Total 0.4 mg/dl (0.2-1.0); Blood Urea Nitrogen 33 mg/dl (6-23); Carbon Dioxide 27 mmol/L (21-32); Chloride 104 mmol/L (98-107); Globulin 2.9 gm/dl (2.5-4.0); Glucose 194 mg/dl (70-99(Fasting)); Lipase 89 U/L (11-82); Potassium 5.1 mmol/L (3.5-5.1); Sodium 137 mmol/L (136-145); Total Protein 6.4 gm/dl (6.0-8.3)
[2022-10-28 00:33] LABS: Basophils # (auto) 0.05 K/uL (0-0.2); Basophils % (auto) 0.6 %; Eosinophils # (auto) 0.18 K/uL (0-0.50); Hematocrit (blood only) 30.7 % (37.0-47.0); Hemoglobin 9.7 g/dl (12.0-16.0); Immature Granulocytes # (auto) 0.07 K/uL (0.01-0.20); Immature Granulocytes % (auto) 0.8 %; Lymphocytes # (auto) 1.97 K/uL (1.2-3.4); Lymphocytes % (auto) 21.7 %; Mean Corpuscular Hemoglobin 27.4 pg (25.0-34.0); Mean Corpuscular Hgb Conc 31.6 g/dL (32.0-36.0); Mean Corpuscular Volume 86.7 fL (80.0-100.0); Mean Platelet Volume 10.6 fL (9.4-12.4); Monocytes # (auto) 0.73 K/uL (0.11-0.59); Neutrophils # (auto) 6.08 K/uL (1.40-6.50); Neutrophils % (auto) 66.9 %; Platelet Count 220 K/uL (130-400); RDW Coefficient of Variation 16.3 % (11.5-14.5); RDW Standard Deviation 50.7 fL (36.4-46.3); Red Blood Count 3.54 M/uL (4.20-5.40); White Blood Count 9.08 K/ul (4.8-10.8)
--- NOTE | 2022-10-28 01:19 | Emergency Department Note ---
Impression & Plan Hematuria, Dysuria Admit to the [facility] ED Provider Note NAME: MARCO ANTONIO BRUNNER AGE: 87 SEX: F ARRIVES VIA: Walk-In INFORMANT: Patient and her family ED PROVIDER(S): Eladia Read DO CHIEF COMPLAINT: Dysuria and hematuria PLAN: Disposition: Admit to the [facility] Condition: Fair MEDICAL DECISION MAKING: This is an 87-year-old female patient brought to the emergency department by her family tonight with dysuria and hematuria. It took some time and effort from multiple nurses to get the Velásquez catheter placed. Urinalysis was positive for significant blood but no obvious signs of infection. Other laboratory studies revealed no evidence of leukocytosis. Hemoglobin was stable. Creatinine was at its baseline. INR was 2.6 Nursing staff performed continuous bladder irrigation for some time and were able to retrieve multiple blood clots but the bleeding persisted. The case was discussed with the [facility] and they will evaluate for further inpatient care. Triage Nursing notes reviewed and agree with them. Additional history obtained from the patient's daughter who is at the bedside External medical records reviewed including urological notes as well as previous admissions to the hospital Vital Signs: reviewed and unremarkable Differential diagnosis: UTI, CRISPIN, anemia, supratherapeutic INR Diagnostics interpreted by me: Laboratory studies: See below HPI: 87/F arrives for evaluation of dysuria and hematuria. Patient has a history of hematuria and UTI for which she was hospitalized recently. She was seen today in follow-up with urology for hematuria and taken off her Coumadin and aspirin. Tonight, the patient complained of significant dysuria and family was concerned for worsening symptoms and infection. PAST MEDICAL HISTORY:See Below PAST SURGICAL HISTORY:See Below FAMILY HISTORY:See Below SOCIAL HISTORY:See Below HOME MEDICATIONS:See list ALLERGIES:See list VITALS:See Below PHYSICAL EXAMINATION: HEENT: Head - normocephalic and atraumatic. Pupils are equal, round, and reactive to light. Extraocular eye muscles are intact, and sclera are anicteric. Nose - moist nasal mucosa without discharge. Mouth - moist buccal mucosa. Oropharynx is nonerythematous and there is no tonsillar exudate or edema noted. Neck: Supple; no cervical lymphadenopathy Heart: Regular rate and rhythm. There is a normal S1 and S2 with no murmurs, clicks, or gallops appreciated. Lungs: Clear to auscultation bilaterally with no wheezes, rales, or rhonchi. Abdomen: Soft, completely nontender, nondistended, with good bowel sounds. There are no palpable pulsatile masses or hepatosplenomegaly. There is no gu arding, rigidity, or rebound noted. Extremities: No evidence of cyanosis, clubbing, or edema. There are easily palpable peripheral pulses. Skin: warm and dry with good turgor and no rashes. ED COURSE: Times/Reassessments: 2315: Patient was evaluated in room A-12. A complete history and physical was performed. Previous electronic medical records were reviewed. External medical records were reviewed. An IV lock was initiated and labs were drawn as above. Nursing staff were able to finally place a Velásquez catheter for continuous bladder irrigation. There was significant hematuria with blood clots. I reviewed the results of the laboratory studies with the patient and her family. [facility] for [facility]. Eladia Read, Past Med/Surg History Medical History Acute on chronic anemia CKD (chronic kidney disease) stage 4, GFR 15-29 ml/min Closed left hip fracture s/p repair Gram-negative bacteremia History of COVID-19 History of MRSA infection History of traumatic subdural hematoma HLD (hyperlipidemia) HTN (hypertension) Hypothyroidism Left knee DJD Paroxysmal A-fib Recurrent UTI Sepsis Symptomatic anemia T2DM (type 2 diabetes mellitus) Surgical History History of breast biopsy History of cholecystectomy History of hysterectomy Family History Mother Breast cancer Hypertension Father , at 92 No problems noted. Social History Smoking Status: Former smoker Second Hand Exposure: No; Hx Alcohol Use: Yes Alcohol type: wine Hx Substance Use: No Preferred Language: Yemeni Communication Ability: Effective Driver Sales Required: No Beliefs That Will Affect Care: None marital status: / Current Living Situation: Personal Care Facility Current Living Situation Comment: [facility] How many Children do You have: 1 other: ambulates with cane Feels Safe at Home: Yes Assistive Devices: Wheelchair Allergies Allergies Allergy/AdvReac Type Severity Reaction Status Date / Time amoxicillin Allergy Intermediate Unknown Verified 10/28/22 06:13 sulfamethoxazole Allergy Intermediate Rash Verified 10/27/22 23:23 tetanus toxoid, adsorbed Allergy Intermediate HIVES Verified 10/27/22 23:23 tetracycline Allergy Intermediate hives Verified 10/27/22 23:23 trimethoprim Allergy Intermediate Rash Verified 10/27/22 23:23 rosuvastatin AdvReac Intermediate Muscle Verified 10/27/22 23:23 stiffness Home Meds Home Medications Medication Instructions Recorded Confirmed aspirin 81 mg tablet,delayed 81 mg PO 3XWK 10/31/18 10/27/22 release (Orquidea Low Dose Aspirin) fluticasone propionate 50 2 spray intranasal HS PRN Nasal 10/31/18 10/27/22 mcg/actuation nasal Congestion spray,suspension (Flonase Allergy Relief) levothyroxine 100 mcg tablet 100 mcg PO DAILYBB 10/31/18 10/27/22 docusate sodium 100 mg capsule 100 mg PO HS 06/25/20 10/27/22 (Col-Rite) glipizide 5 mg tablet 10 mg PO QAM 06/25/20 10/27/22 rosuvastatin 10 mg tablet 10 mg PO HS 06/25/20 10/27/22 cholecalciferol (vitamin D3) 25 50 mcg PO DAILY 11/09/20 10/27/22 mcg (1,000 unit) tablet (Vitamin D3) sitagliptin phosphate 25 mg tablet 25 mg PO DAILY 11/09/20 10/27/22 (Januvia) vit C 250 mg-vit E 90 mg-zinc 40 1 tab PO BID 11/09/20 10/27/22 mg-copper 1 ag-rfifwd-yruzsi capsule (PreserVision AREDS-2) warfarin 1 mg tablet 1 mg PO 4XWK 11/09/20 10/27/22 estradiol 0.01% (0.1 mg/gram) 1 g vaginal QPM 12/13/20 10/27/22 vaginal cream Saccharomyces boulardii 250 mg 250 mg PO DAILY 03/15/22 10/27/22 capsule acetaminophen 500 mg tablet 1,000 mg PO Q8H PRN FEVER 03/15/22 10/27/22 (Tylenol Extra Strength) >100.5/MODERATE PAIN amiodarone 200 mg tablet 200 mg PO QAM 03/15/22 10/27/22 betamethasone valerate 0.12 % 1 applic topical HS 03/15/22 10/27/22 topical foam diclofenac sodium 1 % topical gel 2 g topical Q12H PRN Pain 03/15/22 10/27/22 ferrous sulfate 325 mg (65 mg 325 mg PO DAILY 03/15/22 10/27/22 iron) tablet guaifenesin 600 mg tablet, 600 mg PO Q12H PRN Congestion 03/15/22 10/27/22 extended release 12 hr hydroxyzine HCl 10 mg tablet 10 mg PO Q6H PRN Anxiety 03/15/22 10/27/22 ketoconazole 2 % shampoo 1 ea topical 3XWK 03/15/22 10/27/22 loperamide 2 mg capsule 2 mg PO Q8H PRN Diarrhea 03/15/22 10/27/22 melatonin 3 mg tablet 3 mg PO HS 03/15/22 10/27/22 nitrofurantoin 100 mg PO HS 08/24/22 10/27/22 monohydrate/macrocrystals 100 mg capsule warfarin 1 mg tablet 1.5 mg PO 3XWK 08/24/22 10/27/22 azithromycin 500 mg tablet 500 mg PO DIRECTED PRN PRIOR TO 10/27/22 10/27/22 DENTAL APPT. cyanocobalamin (vitamin B-12) 1,000 mcg sublingual DAILY 10/27/22 10/27/22 1,000 mcg sublingual tablet docusate sodium 100 mg capsule 100 mg PO Q24H PRN NO BM FOR 2 10/27/22 10/27/22 (Colace) DAYS. menthol 0.44 %-zinc oxide 20.6 % 1 applic topical QPM PRN COCCYX 10/27/22 10/27/22 topical ointment (Calmoseptine) AREA SCAB mupirocin 2 % topical ointment 1 applic topical DAILY PRN Skin 10/27/22 10/27/22 Irritation Previous Rx's Medication Instructions Recorded tamsulosin 0.4 mg capsule (Flomax) 0.4 mg PO HS #90 caps 07/11/19 polyethylene glycol 3350 17 gram 17 g PO DAILY PRN constipation #30 09/05/20 oral powder packet (Miralax) ea metoprolol tartrate 25 mg tablet 12.5 mg PO BID #60 tabs 11/18/20 Results & Data (ED) Vital Signs Vital Signs - 24 hr 10/27/22 23:03 10/27/22 23:30 10/28/22 00:00 Temperature 37.3 C Temperature Source Temporal Artery Scan Pulse Rate 80 80 77 Pulse Rate [Apical] Pulse Rate from SpO2 Sensor 80 77 Respiratory Rate 18 22 20 Respiratory Effort / Characteristics Non-Labored Spontaneous Respiratory Depth Normal Blood Pressure 124/66 147/61 H 106/52 L Blood Pressure [Right Arm] Blood Pressure Mean 85 89 70 Blood Pressure Mean [Right Arm] Blood Pressure Position Sitting Pulse Oximetry 96 97 94 Oxygen Delivery Method Room Air Sepsis Recent Fever Within 48 Hours No Sepsis New/Unexplained Change in Mental Status N/A Sepsis Action Taken by Nursing No Action Required 10/28/22 00:30 10/28/22 01:00 10/28/22 01:30 Temperature Temperature Source Pulse Rate 78 76 77 Pulse Rate [Apical] Pulse Rate from SpO2 Sensor 78 76 77 Respiratory Rate 22 20 20 Respiratory Effort / Characteristics Respiratory Depth Blood Pressure 146/63 H 92/58 L 116/63 Blood Pressure [Right Arm] Blood Pressure Mean 90 69 80 Blood Pressure Mean [Right Arm] Blood Pressure Position Pulse Oximetry 96 94 95 Oxygen Delivery Method Sepsis Recent Fever Within 48 Hours Sepsis New/Unexplained Change in Mental Status Sepsis Action Taken by Nursing 10/28/22 02:14 10/28/22 02:30 10/28/22 03:00 Temperature Temperature Source Pulse Rate 78 72 74 Pulse Rate [Apical] Pulse Rate from SpO2 Sensor 78 Respiratory Rate 18 21 14 Respiratory Effort / Characteristics Respiratory Depth Blood Pressure 113/44 L 106/64 105/55 L Blood Pressure [Right Arm] Blood Pressure Mean 67 78 71 Blood Pressure Mean [Right Arm] Blood Pressure Position Pulse Oximetry 95 96 94 Oxygen Delivery Method Room Air Room Air Sepsis Recent Fever Within 48 Hours Sepsis New/Unexplained Change in Mental Status Sepsis Action Taken by Nursing 10/28/22 03:27 Temperature Temperature Source Pulse Rate Pulse Rate [Apical] 75 Pulse Rate from SpO2 Sensor Respiratory Rate 16 Respiratory Effort / Characteristics Respiratory Depth Blood Pressure Blood Pressure [Right Arm] 105/55 L Blood Pressure Mean Blood Pressure Mean [Right Arm] 71 Blood Pressure Position Pulse Oximetry 96 Oxygen Delivery Method Sepsis Recent Fever Within 48 Hours Sepsis New/Unexplained Change in Mental Status Sepsis Action Taken by Nursing Laboratory Data 10/27/22 23:25 10/27/22 23:25 Lab Results 10/27/22 10/27/22 10/27/22 Range/Units 23:25 23:25 23:25 WBC 9.08 (4.8-10.8) K/ul RBC 3.54 L (4.20-5.40) M/uL Hgb 9.7 L (12.0-16.0) g/dl Hct 30.7 L (37.0-47.0) % MCV 86.7 (80.0-100.0) fL MCH 27.4 (25.0-34.0) pg MCHC 31.6 L (32.0-36.0) g/dL RDW Std Deviation 50.7 H (36.4-46.3) fL RDW Coeff of Hope 16.3 H (11.5-14.5) % Plt Count 220 (130-400) K/uL MPV 10.6 (9.4-12.4) fL Immature Gran % (Auto) 0.8 % Neut % (Auto) 66.9 % Lymph % (Auto) 21.7 % Martin % (Auto) 8.0 % Eos % (Auto) 2.0 % Baso % (Auto) 0.6 % Neut # (Auto) 6.08 (1.40-6.50) K/uL Lymph # (Auto) 1.97 (1.2-3.4) K/uL Martin # (Auto) 0.73 H (0.11-0.59) K/uL Eos # (Auto) 0.18 (0-0.50) K/uL Baso # (Auto) 0.05 (0-0.2) K/uL Immature Gran # (Auto) 0.07 (0.01-0.20) K/uL PT 26.0 H (9.0-12.0) Seconds INR 2.6 H (0.9-1.1) Sodium 137 (136-145) mmol/L Potassium 5.1 (3.5-5.1) mmol/L Chloride 104 (98-107) mmol/L Carbon Dioxide 27 (21-32) mmol/L Anion Gap 6 (3-11) BUN 33 H (6-23) mg/dl Creatinine 1.49 H (0.6-1.2) mg/dl Est Cr Clr Drug Dosing Not Reportable Est GFR ( Amer) 36.0 ml/min Est GFR (Non-Af Amer) 31.0 ml/min BUN/Creatinine Ratio 22.1 H (10-20) Glucose 194 H (70-99(Fasting)) mg/dl Calcium 9.0 (8.5-10.1) mg/dl Total Bilirubin 0.4 (0.2-1.0) mg/dl AST 38 (13-39) U/L ALT 46 (7-52) U/L Alkaline Phosphatase 71 (34-104) U/L Total Protein 6.4 (6.0-8.3) gm/dl Albumin 3.5 (3.4-5.0) gm/dl Globulin 2.9 (2.5-4.0) gm/dl Albumin/Globulin Ratio 1.2 (0.9-2) Lipase 89 H (11-82) U/L Urine Color Urine Appearance (Clear) Urine pH (4.5-7.5) Ur Specific [place] (1.000-1.030) Urine Protein (Negative) Urine Glucose (UA) (Negative) Urine Ketones (Negative) Urine Blood (Negative) Urine Nitrite (Negative) Urine Bilirubin (Negative) Urine Urobilinogen (Negative) Ur Leukocyte Esterase (Negative) Urine RBC (0-4) /hpf Urine WBC (0-5) /hpf Ur Epithelial Cells (0-5) /lpf Urine Bacteria (Negative) SARS-CoV-2, RNA, NAAT (NEGATIVE) 10/28/22 10/28/22 Range/Units 01:20 03:18 WBC (4.8-10.8) K/ul RBC (4.20-5.40) M/uL Hgb (12.0-16.0) g/dl Hct (37.0-47.0) % MCV (80.0-100.0) fL MCH (25.0-34.0) pg MCHC (32.0-36.0) g/dL RDW Std Deviation (36.4-46.3) fL RDW Coeff of Hope (11.5-14.5) % Plt Count (130-400) K/uL MPV (9.4-12.4) fL Immature Gran % (Auto) % Neut % (Auto) % Lymph % (Auto) % Martin % (Auto) % Eos % (Auto) % Baso % (Auto) % Neut # (Auto) (1.40-6.50) K/uL Lymph # (Auto) (1.2-3.4) K/uL Martin # (Auto) (0.11-0.59) K/uL Eos # (Auto) (0-0.50) K/uL Baso # (Auto) (0-0.2) K/uL Immature Gran # (Auto) (0.01-0.20) K/uL PT (9.0-12.0) Seconds INR (0.9-1.1) Sodium (136-145) mmol/L Potassium (3.5-5.1) mmol/L Chloride (98-107) mmol/L Carbon Dioxide (21-32) mmol/L Anion Gap (3-11) BUN (6-23) mg/dl Creatinine (0.6-1.2) mg/dl Est Cr Clr Drug Dosing Est GFR ( Amer) ml/min Est GFR (Non-Af Amer) ml/min BUN/Creatinine Ratio (10-20) Glucose (70-99(Fasting)) mg/dl Calcium (8.5-10.1) mg/dl Total Bilirubin (0.2-1.0) mg/dl AST (13-39) U/L ALT (7-52) U/L Alkaline Phosphatase (34-104) U/L Total Protein (6.0-8.3) gm/dl Albumin (3.4-5.0) gm/dl Globulin (2.5-4.0) gm/dl Albumin/Globulin Ratio (0.9-2) Lipase (11-82) U/L Urine Color Red Urine Appearance Turbid A (Clear) Urine pH 7.0 (4.5-7.5) Ur Specific [place] >= 1.030 (1.000-1.030) Urine Protein 3+ H (Negative) Urine Glucose (UA) Negative (Negative) Urine Ketones Negative (Negative) Urine Blood 3+ H (Negative) Urine Nitrite Negative (Negative) Urine Bilirubin Negative (Negative) Urine Urobilinogen Negative (Negative) Ur Leukocyte Esterase Negative (Negative) Urine RBC >30 H (0-4) /hpf Urine WBC >30 H (0-5) /hpf Ur Epithelial Cells 10-20 H (0-5) /lpf Urine Bacteria Negative (Negative) SARS-CoV-2, RNA, NAAT NEGATIVE (NEGATIVE) Discharge Plan Visit Data Chief Complaint: Hematuria Stated Complaint: BLOOD IN URINE, PAINFUL URINATION ED Provider: Eladia Read Discharge Problem: Hematuria, Dysuria Patient Disposition: Admitted As Inpatient Discharge Instructions Interventions: ED Discharge Assessment Last Done: 10/28/22 06:00
[2022-10-28 01:36] LABS: Appearance Urine Turbid (Clear); Bilirubin Urine Negative (Negative); Blood Urine 3+ (Negative); Color Urine Red; Glucose Urine UA Negative (Negative); Ketones Urine Negative (Negative); Leukocyte Esterase Urine Negative (Negative); Nitrite Urine Negative (Negative); Protein Urine 3+ (Negative); Specific Gravity Urine >= 1.030 (1.000-1.030); Urobilinogen Urine Negative (Negative)
[2022-10-28 01:38] LABS: Bacteria Urine Negative (Negative); RBC Urine >30 /hpf (0-4); WBC Urine >30 /hpf (0-5)
[2022-10-28 03:25] LABS: INR 2.6 (0.9-1.1)
[2022-10-28] MEDS ORDERED: ACETAMINOPHEN 325 MG TAB PO PRN (05:59)
[2022-10-28] MEDS ORDERED: NITROGLYCERIN SL 0.4 MG/TAB TAB SL PRN (05:59)
[2022-10-28] MEDS ORDERED: hydrOXYzine HCl 10 MG TAB PO PRN (05:59)
[2022-10-28] MEDS ORDERED: GLUCOSE 40% GEL 15 GM TUBE PO PRN (05:59)
[2022-10-28] MEDS ORDERED: CARBOHYDRATES FOR HYPOGLYCEMIA PO PRN (05:59)
[2022-10-28] MEDS ORDERED: FLUTICASONE PROPIONATE NA SPR 16 GM BTL PRN (05:59)
[2022-10-28] MEDS ORDERED: DEXTROSE 50% 50 ML SYRINGE IV PRN (05:59)
[2022-10-28] MEDS ORDERED: GLUCAGON FOR INJ 1 MG VIAL SQ PRN (05:59)
[2022-10-28] MEDS ORDERED: guaiFENesin 600 MG TABCR PO PRN (05:59)
[2022-10-28] MEDS ORDERED: GLUCOSE 10 TAB/TUBE PO PRN (05:59)
[2022-10-28] MEDS ORDERED: DOCUSATE SODIUM 100 MG CAP PO PRN (05:59)
[2022-10-28] MEDS ORDERED: POLYETHYLENE (MIRALAX) 17 GM PACK PO PRN (05:59)
--- NOTE | 2022-10-28 06:20 | Urology Consultation ---
Date of Consultation October 28, 2022 Assessment & Plan (1) Gross hematuria: The patient has been admitted on the hospitalist service. Recommend proceeding as follows: Hold all anticoagulation and antiplatelet medications Continue continuous bladder irrigation. This will be monitored and can be slowed down/discontinued as patient's urine clears and remains patent. The patient has been maintained on antibiotics in form of Macrobid. Urine culture has been sent and results of this should be followed with antibiotics tailored appropriately Recommend keeping the patient n.p.o. for the present time until it is certain that her Velásquez catheter remains patent and she will not be in need of any cysto scopic intervention Additional recommendations be forthcoming based on her clinical course as it unfolds History of Present Illness Reason for Consultation: Hematuria Attending Physician: Edi Thomas MD History of Present Illness This is an 87-year-old female who presented to the emergency department secondary to gross hematuria. The patient notes that she has a history of hematuria and urinary tract infection and she was hospitalized for this recently. She said that she has been having gross hematuria for several days. She was hospitalized in September of this year. At that time her urine culture grew yeast. She was treated with antibiotics in the form of ceftriaxone. The patient does follow as an outpatient with [facility] urology (Dr. Harrington) and she was apparently taken off her anticoagulation earlier today due to hematuria. She does report some dysuria and suprapubic discomfort. She denies any fevers, shakes, or chills. Since arrival to the emergency department patient had labs and imaging which) reviewed. CBC revealed white blood cell count and platelet count were normal. Hemoglobin and hematocrit were 9.7 and 30.7. This did not represent a precipitous drop in her H&H. Her INR is noted to be 2.6. Chemistry profile showed sodium and potassium both normal. BUN and creatinine were 33 and 1.4. This level of creatinine was near the patient's baseline. Urinalysis showed 3+ blood. It was negative for nitrites and leukocyte Estrace but did have greater than 30 white blood cells per high-power field. It was negative for bacteria. A COVID test was negative. During patient's most recent admission it is noteworthy mention that she did have a CT scan of the abdomen pelvis that showed findings concerning for hemorrhagic cystitis. She also did not have any ureteral stones. There was some fullness noted in the renal collecting systems without dionicio hydronephrosis. I discussed with the nurses in the emergency department and the patient's Velásquez catheter is clotted off multiple times. At the time of my arrival the patient was having suprapubic discomfort and her Velásquez catheter had clotted again. With the assistance of the nurses we vigorously irrigated the patient's Velásquez catheter and evacuated several clots. Once these clots were evacuated the continuous bladder irrigation was hooked up and appeared to be running appropriately and the Velásquez catheter appeared patent. At the time of my interview the patient was resting comfortably in bed and she was in no distress. Allergies Allergy/AdvReac Type Severity Reaction Status Date / Time amoxicillin Allergy Intermediate Unknown Verified 10/28/22 06:13 sulfamethoxazole Allergy Intermediate Rash Verified 10/27/22 23:23 tetanus toxoid, adsorbed Allergy Intermediate HIVES Verified 10/27/22 23:23 tetracycline Allergy Intermediate hives Verified 10/27/22 23:23 trimethoprim Allergy Intermediate Rash Verified 10/27/22 23:23 rosuvastatin AdvReac Intermediate Muscle Verified 10/27/22 23:23 stiffness Home Medications Medication Instructions Recorded Confirmed Type aspirin 81 mg tablet,delayed 81 mg PO 3XWK 10/31/18 10/27/22 History release (Orquidea Low Dose Aspirin) fluticasone propionate 50 2 spray intranasal HS PRN Nasal 10/31/18 10/27/22 History mcg/actuation nasal Congestion spray,suspension (Flonase Allergy Relief) levothyroxine 100 mcg tablet 100 mcg PO DAILYBB 10/31/18 10/27/22 History tamsulosin 0.4 mg capsule (Flomax) 0.4 mg PO HS #90 caps 07/11/19 10/27/22 Rx docusate sodium 100 mg capsule 100 mg PO HS 06/25/20 10/27/22 History (Col-Rite) glipizide 5 mg tablet 10 mg PO QAM 06/25/20 10/27/22 History rosuvastatin 10 mg tablet 10 mg PO HS 06/25/20 10/27/22 History polyethylene glycol 3350 17 gram 17 g PO DAILY PRN constipation #30 09/05/20 10/27/22 Rx oral powder packet (Miralax) ea cholecalciferol (vitamin D3) 25 50 mcg PO DAILY 11/09/20 10/27/22 History mcg (1,000 unit) tablet (Vitamin D3) sitagliptin phosphate 25 mg tablet 25 mg PO DAILY 11/09/20 10/27/22 History (Januvia) vit C 250 mg-vit E 90 mg-zinc 40 1 tab PO BID 11/09/20 10/27/22 History mg-copper 1 [id number] capsule (PreserVision AREDS-2) warfarin 1 mg tablet 1 mg PO 4XWK 11/09/20 10/27/22 History metoprolol tartrate 25 mg tablet 12.5 mg PO BID #60 tabs 11/18/20 10/27/22 Rx estradiol 0.01% (0.1 mg/gram) 1 g vaginal QPM 12/13/20 10/27/22 History vaginal cream Saccharomyces boulardii 250 mg 250 mg PO DAILY 03/15/22 10/27/22 History capsule acetaminophen 500 mg tablet 1,000 mg PO Q8H PRN FEVER 03/15/22 10/27/22 History (Tylenol Extra Strength) >100.5/MODERATE PAIN amiodarone 200 mg tablet 200 mg PO QAM 03/15/22 10/27/22 History betamethasone valerate 0.12 % 1 applic topical HS 03/15/22 10/27/22 History topical foam diclofenac sodium 1 % topical gel 2 g topical Q12H PRN Pain 03/15/22 10/27/22 History ferrous sulfate 325 mg (65 mg 325 mg PO DAILY 03/15/22 10/27/22 History iron) tablet guaifenesin 600 mg tablet, 600 mg PO Q12H PRN Congestion 03/15/22 10/27/22 History extended release 12 hr hydroxyzine HCl 10 mg tablet 10 mg PO Q6H PRN Anxiety 03/15/22 10/27/22 History ketoconazole 2 % shampoo 1 ea topical 3XWK 03/15/22 10/27/22 History loperamide 2 mg capsule 2 mg PO Q8H PRN Diarrhea 03/15/22 10/27/22 History melatonin 3 mg tablet 3 mg PO HS 03/15/22 10/27/22 History nitrofurantoin 100 mg PO HS 08/24/22 10/27/22 History monohydrate/macrocrystals 100 mg capsule warfarin 1 mg tablet 1.5 mg PO 3XWK 08/24/22 10/27/22 History azithromycin 500 mg tablet 500 mg PO DIRECTED PRN PRIOR TO 10/27/22 10/27/22 History DENTAL APPT. cyanocobalamin (vitamin B-12) 1,000 mcg sublingual DAILY 10/27/22 10/27/22 History 1,000 mcg sublingual tablet docusate sodium 100 mg capsule 100 mg PO Q24H PRN NO BM FOR 2 10/27/22 10/27/22 History (Colace) DAYS. menthol 0.44 %-zinc oxide 20.6 % 1 applic topical QPM PRN COCCYX 10/27/22 10/27/22 History topical ointment (Calmoseptine) AREA SCAB mupirocin 2 % topical ointment 1 applic topical DAILY PRN Skin 10/27/22 10/27/22 History Irritation Patient History Medical History Acute on chronic anemia CKD (chronic kidney disease) stage 4, GFR 15-29 ml/min Closed left hip fracture s/p repair Gram-negative bacteremia History of COVID-19 History of MRSA infection History of traumatic subdural hematoma HLD (hyperlipidemia) HTN (hypertension) Hypothyroidism Left knee DJD Paroxysmal A-fib Recurrent UTI Sepsis Symptomatic anemia T2DM (type 2 diabetes mellitus) Surgical History History of breast biopsy History of cholecystectomy History of hysterectomy Family History Mother Breast cancer Hypertension Father , at 92 No problems noted. Social History Smoking Status: Former smoker Second Hand Exposure: No; Hx Alcohol Use: Yes Alcohol type: wine Hx Substance Use: No Preferred Language: Mauritanian Communication Ability: Effective [employer] Required: No Beliefs That Will Affect Care: None marital status: / Current Living Situation: Personal Care Facility Current Living Situation Comment: [facility] How many Children do You have: 1 other: ambulates with cane Feels Safe at Home: Yes Assistive Devices: Wheelchair Review of Systems Constitutional: no fever and no chills Eyes: no diplopia Ear, Nose, Mouth, Throat: no ear pain Respiratory: no cough and no dyspnea Cardiovascular: no chest pain Gastrointestinal: + abdominal pain (Suprapubic discomfort); no nausea and no vomiting Genitourinary: as per Subjective / HPI Musculoskeletal: no back pain Integumentary: no rash Neurologic: no localized weakness Physical Exam Constitutional: WD/WN, vitals as above Eyes: no conjunctival abnormality ENMT: Ears: no hearing impairment Mouth: no oropharynx abnormality Neck: trachea midline Respiratory: normal respiratory effort; no respiratory distress and no labored breathing Cardiovascular: Rate/Rhythm: regular rate Gastrointestinal (Abdomen): Soft and nondistended. Minor suprapubic discomfort with palpation Musculoskeletal: No calf tenderness Skin: no rashes Neurologic: moves all extremities Psychiatric: A+Ox3, euthymic affect Genitourinary: Velásquez catheter in place (is a three-way) continuous bladder irrigation is currently running draining bloody/Jamie-Aid colored urine Results & Data ([facility]) Vital Signs (Past 12 Hours) Vital Signs Temp Pulse Pulse Resp BP BP Pulse Ox 10/28/22 05:00 73 12 124/56 L 94 10/28/22 03:27 75 16 105/55 L 96 10/28/22 03:00 74 14 105/55 L 94 10/28/22 02:30 72 21 106/64 96 10/28/22 02:14 78 18 113/44 L 95 10/28/22 01:30 77 20 116/63 95 10/28/22 01:00 76 20 92/58 L 94 10/28/22 00:30 78 22 146/63 H 96 10/28/22 00:00 77 20 106/52 L 94 10/27/22 23:30 80 22 147/61 H 97 10/27/22 23:03 37.3 C 80 18 124/66 96 O2 Del Method 10/28/22 05:00 Room Air 10/28/22 03:27 10/28/22 03:00 Room Air 10/28/22 02:30 Room Air 10/28/22 02:14 10/28/22 01:30 10/28/22 01:00 10/28/22 00:30 10/28/22 00:00 10/27/22 23:30 10/27/22 23:03 Room Air PG Care Time/CCT Total # of Minutes Spent Total Time Spent with Patient: Total time spent is greater than 50% in coordination of care (as documented) at patient's floor/unit and/or counseling patient: Coding Level of Care Code INP/OBS CONSULT LVL 5, 80 MIN Diagnoses Gross hematuria R31.0
[2022-10-28 07:02] LABS: Basophils # (auto) 0.02 K/uL (0-0.2); Basophils % (auto) 0.3 %; Eosinophils # (auto) 0.15 K/uL (0-0.50); Eosinophils % (auto) 2.2 %; Hematocrit (blood only) 25.5 % (37.0-47.0); Hemoglobin 8.1 g/dl (12.0-16.0); Immature Granulocytes # (auto) 0.04 K/uL (0.01-0.20); Immature Granulocytes % (auto) 0.6 %; Lymphocytes # (auto) 1.85 K/uL (1.2-3.4); Lymphocytes % (auto) 27.7 %; Mean Corpuscular Hemoglobin 27.3 pg (25.0-34.0); Mean Corpuscular Hgb Conc 31.8 g/dL (32.0-36.0); Mean Corpuscular Volume 85.9 fL (80.0-100.0); Mean Platelet Volume 10.2 fL (9.4-12.4); Monocytes # (auto) 0.72 K/uL (0.11-0.59); Monocytes % (auto) 10.8 %; Neutrophils # (auto) 3.89 K/uL (1.40-6.50); Neutrophils % (auto) 58.4 %; Platelet Count 187 K/uL (130-400); RDW Coefficient of Variation 16.2 % (11.5-14.5); RDW Standard Deviation 50.1 fL (36.4-46.3); Red Blood Count 2.97 M/uL (4.20-5.40); White Blood Count 6.67 K/ul (4.8-10.8)
[2022-10-28 07:12] LABS: Anion Gap 4 (3-11); BUN Creatinine Ratio 22.7 (10-20); Blood Urea Nitrogen 32 mg/dl (6-23); Calcium 8.9 mg/dl (8.5-10.1); Carbon Dioxide 27 mmol/L (21-32); Chloride 107 mmol/L (98-107); Est GFR (African American) 38.5 ml/min; Est GFR (Non-African American) 33.2 ml/min; Glucose 174 mg/dl (70-99(Fasting)); Potassium 4.5 mmol/L (3.5-5.1); Sodium 138 mmol/L (136-145)
[2022-10-28] MEDS: INSULIN ASPART PER UNIT SC SCH ×4 (07:45→21:15)
[2022-10-28] MEDS: SODIUM CHLORIDE 0.9% 1000ML 1,000 ML IV SCH ×2 (07:51→15:00)
[2022-10-28] MEDS: CEROVITE ADV FORMULA TAB PO SCH ×2 (08:11→21:27)
[2022-10-28] MEDS: FERROUS SULFATE 325 MG TAB PO SCH (08:12)
[2022-10-28] MEDS: METOPROLOL TARTRATE 25 MG TAB PO SCH ×2 (08:12→21:26)
[2022-10-28] MEDS: CHOLECALCIFEROL 1,000 UNITS 25 MCG TAB PO SCH (08:12)
[2022-10-28] MEDS: CYANOCOBALAMIN (B-12) 500 MCG TABLET PO SCH (08:12)
[2022-10-28] MEDS: AMIODARONE 200 MG TAB PO SCH (08:13)
[2022-10-28] MEDS: SACCHAROMYCES BOULARDII 250 MG CAP PO SCH (08:13)
[2022-10-28] MEDS: LEVOTHYROXINE SODIUM 100 MCG TABLET PO SCH (08:13)
--- NOTE | 2022-10-28 08:18 | History and Physical Report ---
DATE OF ADMISSION: 10/28/2022. CHIEF COMPLAINT: Gross hematuria. HISTORY OF PRESENT ILLNESS: An 87-year-old female with past medical history significant for type 2 diabetes, hypothyroidism, hyperlipidemia, paroxysmal atrial fibrillation, hypertension, chronic kidney disease stage IV, anemia due to chronic kidney disease, history of MRSA infection, history of depression, history of traumatic subdural hematoma, history of COVID, history of ambulatory dysfunction, currently on wheelchair because of arthritis in the knee, but she says she can transfer herself to the wheelchair, beth comes from [facility]. The patient recently, end of September, was here with hematuria and UTI. At that time INR was 2.9 on presentation, she was given vitamin K and also she was treated with Rocephin and received 1 unit of PRBCs. Hematuria resolved and she was discharged and also she was placed on chronic prophylactic Macrobid. [facility] and advised her to hold Coumadin for 2 weeks and also to hold aspirin indefinitely and they plan to follow up in 3-4 months to consider cystoscopy at that time. Today patient was brought in because of dysuria and hematuria. It looks like she had clots and some difficulty to lace catheter in the ER, . Currently she is on continuous bladder irrigation and is still having hematuria. The patient was drowsy, but able to arouse her and sometimes is confused, but able to give her history. Denies any chest pain, no shortness of breath, no nausea, no abdominal pain, no fevers, no difficulty swallowing. Appetite is not that great and no headache, no earache, no runny nose, no sore throat, no cough, no abdominal pain. Resting comfortably and hemodynamically stable. ALLERGIES: SULFA ANTIBIOTICS, TETANUS TOXOID, TETRACYCLINE, ROSUVASTATIN AND AMOXICILLIN. PAST MEDICAL HISTORY: As mentioned above. PAST SURGICAL HISTORY: Cystoscopies, biopsy of breast, colonoscopy, dental surgery, injection of lumbosacral spine, laparoscopic hysterectomy, laparoscopic cholecystectomy. MEDICATIONS: The patient is on Tylenol 1000 mg p.o. q. 8 hours p.r.n., amiodarone 200 mg p.o. a.m., aspirin currently on hold, azithromycin p.r.n. dental appointment, vitamin D 50 mcg p.o. daily, vitamin B12 1000 mcg sublingual daily, diclofenac sodium 2 g topical b.i.d. p.r.n., Colace 100 mg p.o. at bedtime, estradiol 1 gram vaginal q.p.m., ferrous sulfate 325 mg p.o. daily, Flonase 2 sprays intranasal at bedtime p.r.n., glipizide 10 mg p.o. a.m., guaifenesin 600 mg p.o. b.i.d. p.r.n., hydroxyzine 10 mg p.o. q. 6 hours p.r.n., Januvia 25 mg p.o. daily, ketoconazole topical 3 times a week, levothyroxine 100 mcg p.o. daily, loperamide 2 mg p.o. q. 8 hours p.r.n., melatonin 3 mg p.o. at bedtime, metoprolol tartrate 12.5 mg p.o. b.i.d., nitrofurantoin 100 mg p.o. at bedtime, MiraLax 17 g p.o. daily p.r.n., PreserVision AREDS 1 tablet p.o. b.i.d., rosuvastatin 10 mg p.o. at bedtime, saccharomyces 250 mg p.o. daily, Flomax 0.2 mg p.o. at bedtime, Coumadin, warfarin 1 mg p.o. 4 times a week and 1.5 mg 3 times a week. REVIEW OF SYSTEMS: As per HPI. Rest of review of systems is negative. PHYSICAL EXAMINATION: GENERAL: The patient is old and frail, not in acute distress. VITAL SIGNS: Temperature 37.3, pulse 75, respiratory rate 16, blood pressure 105/55, oxygen 96% on room air. HEENT: Pupils equal, round and reactive to light. Oral mucosa moist. NECK: No JVD, no neck masses. CARDIOVASCULAR: S1 and S2 heard. Regular rate and rhythm. No murmur, no gallop. RESPIRATORY SYSTEM: Normal AP diameter. No accessory muscle use. No wheezing, no crackles. ABDOMEN: Soft, bowel sounds present, nontender, no distention. CENTRAL NERVOUS SYSTEM: Alert and awake with simple commands. Speech is clear. Moves extremities. EXTREMITIES: No edema, no erythema. LABORATORY DATA: WBC 9, hemoglobin 9.7, hematocrit 30.7, platelets 220, PT 26, INR 2.6. Sodium 137, potassium 5.1, chloride 104, bicarbonate 27, BUN 33, creatinine 1.4, serum glucose 194, calcium 9, total bilirubin 0.4, AST 38, ALT 46, alkaline phosphatase 71, lipase 89. Urinalysis, +3 blood, +2 protein. SARS-CoV-2 rapid test negative. ASSESSMENT AND PLAN: An 87-year-old female who presents with gross hematuria. 1. Gross hematuria, recurrent. She was here with similar issue at end of September. She is on Coumadin for atrial fibrillation. INR is 2.6. We will give IV vitamin K to reverse it. In the ER, she is on continuous bladder irrigation which we will continue. We will keep her n.p.o. Consult Urology. We will follow H and H. Hemoglobin is stable at 9.7. Patient is somewhat confused. The patient not agrreeing to blood consent at this time, can be readdressed in the morning and if the patient is still confused then we can talk to the family in the morning. The patient says she had 1 unit of PRBC 3 weeks ago and she does not need it now. Closely monitor in the [employer] tele. 2. History of atrial fibrillation, rate controlled with amiodarone and metoprolol. Holding Coumadin for above. Also saw urologist, Dr. Harrington in the [place] on 10/27/2022 and advised for holding Coumadin for 2 weeks and holding aspirin indefinitely. Restart Coumadin as per Urology. 3. Diabetes. Hold her p.o. medication, placed on insulin sliding scale. Follow the blood sugars. 4. Chronic kidney disease stage IV. Currently creatinine of 1.4, seems at baseline. 5. Anemia of chronic kidney disease. We will follow the labs. Currently the patient has hematuria. 6. Ambulatory dysfunction, wheelchair bound because of arthritis. 7. Hypothyroidism, on Synthroid. 8. Hyperlipidemia, on statin. 9. Deep venous thrombosis prophylaxis: Sequential compression devices for now. DISPOSITION: Closely monitor in the [employer] tele. PT/OT. Social service to help with discharge planning. Level 1 full code. Job ID: [id number] MTDD
--- NOTE | 2022-10-28 08:26 | Urology Progress Note ---
Date of Service October 28, 2022 Assessment & Plan (1) Gross hematuria: Plan 87yo/F on chronic anticoagulation admitted with gross hematuria. - Afebrile and hemodynamically stable - Labs reviewed -WBC 6.67, Hemoglobin 8.1, Creatinine 1.41. Continue to monitor. - Urine culture pending. Continues on Macrobid. - Follow culture and tailor as data becomes available. - 3-way Galdamez catheter intact, draining light pink urine with CBI on moderate rate. - Maintain Galdamez catheter, can titrate CBI as needed. - Will obtain renal ultrasound this morning. - Keep n.p.o. for now. Additional recommendations pending imaging. - Anticoagulation on hold. - Urology will follow. - Patient reassessed at 1200. - Renal ultrasound shows decompressed bladder with galdamez, moderate sized blood clot noted in bladder lumen, no hydronephrosis. - Three-way Galdamez catheter intact, draining pink-tinged urine with CBI on slowmoderate rate. - No acute intervention warranted at this time. - Maintain Galdamez catheter, can titrate CBI as needed. Okay to hand irrigate as needed for clots, retention, suprapubic pain. - Continue supportive care and antibiotic therapy. - Urology will follow. Admission and Anticipated Discharge Date Admission Date: October 28, 2022 Supervising Physician Co-Signing Physician Notes Discussed patient with YARED. Agree with plan. Manage conservatively, if unable to wean off CBI would recommend hand irrigation first, then OR if unable to remove remaining clot burden seen on RIGOBERTO. Subjective Pt examined at bedside in the ED. Awake, resting in bed on arrival. No acute distress. 3-way Galdamez catheter intact, draining light pink urine with CBI on moderate rate. Denies any pain or discomfort. No fevers. Has been NPO. Review of Systems Constitutional: as per Subjective / HPI Genitourinary: as per Subjective / HPI Physical Exam Constitutional: no acute distress Respiratory: no respiratory distress and no labored breathing Gastrointestinal (Abdomen): Percussion/Palpation: abdomen soft; abdomen nontender Psychiatric: Orientation: alert, oriented x 3 and cooperative Genitourinary: Galdamez catheter intact, draining light pink urine with CBI on moderate rate Results & Data ([facility]) Vital Signs (Past 12 Hours) Vital Signs Temp Pulse Pulse Resp BP BP Pulse Ox 10/28/22 07:03 10/28/22 07:00 74 18 150/63 H 94 10/28/22 06:00 70 14 150/63 H 95 10/28/22 05:00 73 12 124/56 L 94 10/28/22 03:27 75 16 105/55 L 96 10/28/22 03:00 74 14 105/55 L 94 10/28/22 02:30 72 21 106/64 96 10/28/22 02:14 78 18 113/44 L 95 10/28/22 01:30 77 20 116/63 95 10/28/22 01:00 76 20 92/58 L 94 10/28/22 00:30 78 22 146/63 H 96 10/28/22 00:00 77 20 106/52 L 94 10/27/22 23:30 80 22 147/61 H 97 10/27/22 23:03 37.3 C 80 18 124/66 96 O2 Del Method O2 Del Method 10/28/22 07:03 Room Air 10/28/22 07:00 Room Air 10/28/22 06:00 Room Air 10/28/22 05:00 Room Air 10/28/22 03:27 10/28/22 03:00 Room Air 10/28/22 02:30 Room Air 10/28/22 02:14 10/28/22 01:30 10/28/22 01:00 10/28/22 00:30 10/28/22 00:00 10/27/22 23:30 10/27/22 23:03 Room Air PG Care Time/CCT Total # of Minutes Spent Total Time Spent with Patient: Total time spent is greater than 50% in coordination of care (as documented) at patient's floor/unit and/or counseling patient: Coding Level of Care Code None Diagnoses Gross hematuria R31.0
[2022-10-28] MEDS ORDERED: PHYTONADIONE 10 MG in DEXTROSE 5% 50 ML IV ONE (10:00)
--- NOTE | 2022-10-28 11:18 | Ultrasound Report ---
RENAL ULTRASOUND HISTORY: Acute hematuria gross hematuria COMPARISON: CT 10/08/2022 FINDINGS: Right kidney: 9.2 x 4.9 x 4.7 No hydronephrosis. Diffuse cortical thinning with increased echogenicit y of the renal parenchyma. No shadowing renal calculi identified. Left kidney: 8.9 x 5.2 x 4.7 No hydronephrosis. Cysts of the left kidney measure up to 1.8 x 1.6 x 1. 7 cm. Diffuse cortical thinning with increased echogenicity of the renal parenchyma. No shadowing bina al calculi identified. Bladder: Decompressed urinary bladder with Velásquez catheter in place. Echogenic structure without color flow within the urinary bladder lumen measures 4.8 x 2.5 x 4.4 cm. IMPRESSION: 1. No shadowing renal calculi or hydronephrosis identified by ultrasound. 2. Evidence of chronic medical renal disease. 3. Decompressed urinary bladder with Velásquez catheter. Moderate sized blood clot noted within the urina ry bladder lumen. ACT 112: Negative or not required by law. Electronically signed by: Tod Hou M.D. 10/28/2022 11:16 AM
[2022-10-28 13:17] LABS: Hematocrit (blood only) 25.9 % (37.0-47.0); Hemoglobin 8.1 g/dl (12.0-16.0)
[2022-10-28] MEDS: ESTRACE~ORDER AWAITING ACTION SCH ×2 (14:22→23:34)
--- NOTE | 2022-10-28 18:08 | Communication Note ---
Date of Service: October 28, 2022 Pt was seen and examined for hematuria. Lying in bed with no acute distress. Her Velásquez cath continue to drain light pink color urine. She said that she feels ok but hungry. Denies any chest pain, palpitation, dizziness and SOB. Renal u/s showed no shadowing renal calculi or hydronephrosis. Decompressed urinary bladder with Velásquez catheter. Moderate sized blood clot noted within the urinary bladder lumen. Hgb on admission 9.7, then dropped to 8.1. INR 2.6. Received IV Vit K today. Continue monitor H/H and if Hgb drops below 7.5, will transfuse PRBC. Urology on board recommended to maintain Velásquez catheter, can titrate CBI as needed. Continue supportive care and antibiotic therapy. Continue to hold anticoagulation. Consent for blood transfusion signed. Case discussed with urology and agreed to resume diet. Will make NPO after midnight. Continue monitor closely. MD William
[2022-10-28] MEDS ORDERED: Nursing to Pharmacy Communication SCH (19:15)
[2022-10-28 21:05] LABS: Hematocrit (blood only) 24.7 % (37.0-47.0); Hemoglobin 7.6 g/dl (12.0-16.0)
[2022-10-28] MEDS: ROSUVASTATIN CALCIUM 10 MG TAB PO SCH (21:26)
[2022-10-28] MEDS: MELATONIN 3 MG TAB PO SCH (21:26)
[2022-10-28] MEDS: DOCUSATE SODIUM 100 MG CAP PO SCH (21:26)
[2022-10-28] MEDS: NITROFURANTOIN MONOHYDRATE 100 MG CAP PO SCH (21:27)
[2022-10-28] MEDS: BETAMETHASONE VAL 0.1% CR 15 GM EXT SCH (21:28)
[2022-10-28] MEDS: TAMSULOSIN HCL 0.4 MG CAP PO SCH (22:30)
[2022-10-28] MEDS ORDERED: SODIUM CHLORIDE 0.9% 250 ML IV PRN (23:14)
[2022-10-29 00:18] LABS: Hematocrit (blood only) 24.5 % (37.0-47.0); Hemoglobin 7.6 g/dl (12.0-16.0)
[2022-10-29] MEDS: PHENAZOPYRIDINE HCL 100 MG TAB PO PRN (00:53)
[2022-10-29] MEDS: SODIUM CHLORIDE 0.9% 1000ML 1,000 ML IV SCH ×2 (01:33→13:20)
[2022-10-29] MEDS: LEVOTHYROXINE SODIUM 100 MCG TABLET PO SCH (06:06)
[2022-10-29] MEDS: ESTRACE~ORDER AWAITING ACTION SCH ×2 (07:56→14:37)
[2022-10-29] MEDS: INSULIN ASPART PER UNIT SC SCH ×4 (08:03→21:50)
[2022-10-29 08:58] LABS: Hematocrit (blood only) 24.1 % (37.0-47.0); Hemoglobin 7.3 g/dl (12.0-16.0); Mean Corpuscular Hemoglobin 26.7 pg (25.0-34.0); Mean Corpuscular Hgb Conc 30.3 g/dL (32.0-36.0); Mean Corpuscular Volume 88.3 fL (80.0-100.0); Mean Platelet Volume 10.3 fL (9.4-12.4); Platelet Count 158 K/uL (130-400); RDW Coefficient of Variation 16.6 % (11.5-14.5); Red Blood Count 2.73 M/uL (4.20-5.40); White Blood Count 6.08 K/ul (4.8-10.8)
[2022-10-29] MEDS ORDERED: SODIUM CHLORIDE 0.9% 250 ML IV PRN (09:05)
[2022-10-29 09:20] LABS: INR 1.3 (0.9-1.1); Prothrombin Time 13.8 Seconds (9.0-12.0)
[2022-10-29 09:29] LABS: BUN Creatinine Ratio 20.9 (10-20); Creatinine Clr Calc Pharmacy 26.7 ml/min; Est GFR (African American) 49.2 ml/min; Est GFR (Non-African American) 42.4 ml/min
[2022-10-29] MEDS: METOPROLOL TARTRATE 25 MG TAB PO SCH ×3 (09:38→21:57)
--- NOTE | 2022-10-29 09:52 | Urology Progress Note ---
Date of Service October 29, 2022 Assessment & Plan (1) Gross hematuria: Plan 87yo/F on chronic anticoagulation admitted with gross hematuria. She remains afebrile and hemodynamically stable. Labs today show no leukocytosis and normal renal function. Hemoglobin 7.3 this morning. Continue to monitor. Urine culture final with more than 3 types of organisms. Continues on Nitrofurantoin. Velásquez catheter irrigated overnight by nursing with return of several clots. Catheter is currently intact and draining clear yellow urine with CBI on slow. No acute intervention warranted at this time. Maintain Velásquez catheter, can titrate CBI as needed. Ok to hand irrigate as needed for clots/retention/suprapubic pain. Continue supportive care and antibiotic therapy. Anticoagulation on hold. Urology will follow. Admission and Anticipated Discharge Date Admission Date: October 28, 2022 Supervising Physician Co-Signing Physician Notes I have discussed Ms. Cardenas's case with MARIBEL Oconnor and agree with the above documentation. Currently catheter is draining well. Okay to gradually wean CBI and as needed for clots. No plan for urologic intervention under anesthesia at this time. She will need outpatient office visit to discuss gross hematuria work-up. We will follow along for now. Subjective Patient examined at bedside this AM. Awake, resting in bed on arrival. No acute distress. Velásquez catheter was flushed overnight by nursing with removal of several clots. Catheter currently draining clear yellow urine with CBI on slow. She denies any pain or discomfort. No fevers or chills. No nausea or vomiting. Has been NPO. Review of Systems Constitutional: as per Subjective / HPI Gastrointestinal: as per Subjective / HPI Genitourinary: as per Subjective / HPI Physical Exam Constitutional: no acute distress Respiratory: no respiratory distress and no labored breathing Gastrointestinal (Abdomen): Percussion/Palpation: abdomen soft; abdomen nontender Psychiatric: Orientation: alert and oriented x 3 Genitourinary: Velásquez catheter intact draining clear yellow urine with CBI on slow Results & Data ([facility]) Vital Signs (Past 12 Hours) Vital Signs Temp Pulse Pulse Resp BP Pulse Ox O2 Del Method 10/29/22 09:01 Room Air 10/29/22 08:06 36.9 C 68 18 98/57 L 93 Room Air 10/29/22 02:39 36.6 C 69 18 117/57 L 94 Room Air 10/29/22 01:56 79 10/28/22 22:58 36.6 C 77 18 109/44 L 93 Room Air PG Care Time/CCT Total # of Minutes Spent Total Time Spent with Patient: Total time spent is greater than 50% in coordination of care (as documented) at patient's floor/unit and/or counseling patient: Coding Level of Care Code 90876 SUB INP/OBS CARE 2/35MIN Diagnoses Gross hematuria R31.0
[2022-10-29] MEDS: CYANOCOBALAMIN (B-12) 500 MCG TABLET PO SCH (09:53)
[2022-10-29] MEDS: AMIODARONE 200 MG TAB PO SCH (09:54)
[2022-10-29] MEDS: SACCHAROMYCES BOULARDII 250 MG CAP PO SCH (09:54)
[2022-10-29] MEDS: FERROUS SULFATE 325 MG TAB PO SCH (09:54)
[2022-10-29] MEDS: CHOLECALCIFEROL 1,000 UNITS 25 MCG TAB PO SCH (09:55)
[2022-10-29] MEDS: CEROVITE ADV FORMULA TAB PO SCH ×2 (09:55→21:53)
--- NOTE | 2022-10-29 12:35 | Hospitalist Progress Note ---
Date of Service October 29, 2022 Assessment & Plan (1) Gross hematuria: (2) Anemia due to acute blood loss: Plan: Anemia of chronic kidney disease Present on admission with hematuria in the setting of anticoagulant Hgb 9.7 and INR 2.6 on admission Received IV vitamin K yesterday Hgb 7.3 today Type and crossed done and consent signed. She is getting 1 unit PRBC currently Continue monitor H/H Urine cx grew multiple organisms- Continue Nitrofurantoin HS Urology on board Continue supportive care therapy. No acute intervention warranted at this time. Maintain Velásquez catheter, can titrate CBI as needed as per urology Continue to hold anticoagulation History of atrial fibrillation Rate controlled with amiodarone and metoprolol. Continue to hold coumadin due to hematuria Diabetes type 2 Most recent hab1c 7.4 on 08/25 Continue insulin sliding scale Continue monitor Chronic kidney disease stage IV. Creatinine 1.1 today Stable Ambulatory dysfunction wheelchair bound because of arthritis. PT/OT eval Hypothyroidism Continue Synthroid. Hyperlipidemia Continue statin DVT px on SCD Code status Full code Admission and Anticipated Discharge Date Admission Date: October 28, 2022 Subjective Pt was seen and examined for follow up of hematuria Lying in bed with no acute distress She is getting ready to get 1 unit prbc this morning She said that she feels ok Denies any chest pain, palpitation, dizziness and SOB Review of Systems Review of Systems: All systems reviewed & are unremarkable except as noted in Subjective Physical Exam Physical Exam: General- No acute distress Head- atraumatic Eyes- PERRL, EOMI, ENT- oropharynx clear Neck- supple, no JVD Lungs- clear to auscultation Heart- regular rhythm; no murmur Abdomen- normal bowel sounds, soft, nontender Extremities- no calf tenderness Neuro- alert, oriented x 3; PERRL, EOMI; no facial palsy; no dysarthria Skin- warm & dry Results & Data Results & Data ([facility]) Vital Signs (Past 12 Hours) Vital Signs Temp Pulse Pulse Pulse Resp BP BP 10/29/22 11:35 36.5 C 69 16 113/53 L 10/29/22 11:12 36.5 C 72 16 113/48 L 10/29/22 11:08 65 10/29/22 10:07 36.4 C L 72 122/53 L 10/29/22 10:26 36.5 C 72 16 10/29/22 10:04 36.4 C L 71 16 115/64 10/29/22 09:48 35.8 C L 72 16 122/55 L 10/29/22 09:01 10/29/22 08:06 36.9 C 68 18 10/29/22 02:39 36.6 C 69 18 10/29/22 01:56 79 BP Pulse Ox O2 Del Method 10/29/22 11:35 94 Room Air 10/29/22 11:12 94 Room Air 10/29/22 11:08 10/29/22 10:07 97 10/29/22 10:26 122/53 L 97 Room Air 10/29/22 10:04 95 10/29/22 09:48 95 10/29/22 09:01 Room Air 10/29/22 08:06 98/57 L 93 Room Air 10/29/22 02:39 117/57 L 94 Room Air 10/29/22 01:56
[2022-10-29 20:02] LABS: Hematocrit (blood only) 26.9 % (37.0-47.0); Hemoglobin 8.5 g/dl (12.0-16.0)
[2022-10-29] MEDS: BETAMETHASONE VAL 0.1% CR 15 GM EXT SCH (21:50)
[2022-10-29] MEDS: DOCUSATE SODIUM 100 MG CAP PO SCH (21:50)
[2022-10-29] MEDS: MELATONIN 3 MG TAB PO SCH (21:50)
[2022-10-29] MEDS: NITROFURANTOIN MONOHYDRATE 100 MG CAP PO SCH (21:53)
[2022-10-29] MEDS: TAMSULOSIN HCL 0.4 MG CAP PO SCH (21:54)
[2022-10-29] MEDS: ROSUVASTATIN CALCIUM 10 MG TAB PO SCH (21:54)
[2022-10-30] MEDS: ESTRACE~ORDER AWAITING ACTION SCH ×3 (00:11→16:29)
[2022-10-30] MEDS: SODIUM CHLORIDE 0.9% 1000ML 1,000 ML IV SCH ×2 (02:08→14:36)
[2022-10-30] MEDS: LEVOTHYROXINE SODIUM 100 MCG TABLET PO SCH (06:28)
[2022-10-30] MEDS: PHENAZOPYRIDINE HCL 100 MG TAB PO PRN ×2 (06:28→13:06)
[2022-10-30] MEDS: INSULIN ASPART PER UNIT SC SCH ×4 (08:33→21:00)
[2022-10-30] MEDS: METOPROLOL TARTRATE 25 MG TAB PO SCH ×2 (08:34→21:14)
[2022-10-30] MEDS: SACCHAROMYCES BOULARDII 250 MG CAP PO SCH (08:35)
[2022-10-30] MEDS: AMIODARONE 200 MG TAB PO SCH (08:35)
[2022-10-30] MEDS: CEROVITE ADV FORMULA TAB PO SCH ×2 (08:35→21:05)
[2022-10-30] MEDS: FERROUS SULFATE 325 MG TAB PO SCH (08:36)
[2022-10-30] MEDS: CHOLECALCIFEROL 1,000 UNITS 25 MCG TAB PO SCH (08:36)
[2022-10-30] MEDS: CYANOCOBALAMIN (B-12) 500 MCG TABLET PO SCH (08:36)
--- NOTE | 2022-10-30 08:43 | Urology Progress Note ---
Date of Service October 30, 2022 Assessment & Plan (1) Gross hematuria: Plan 87yo/F on chronic anticoagulation admitted with gross hematuria. She remains afebrile and hemodynamically stable. Labs today show no leukocytosis, normal renal function, hemoglobin 8.7. Received 1unit PRBC yesterday. Urine culture final with more than 3 types of organisms. Continues on Nitrofurantoin. Catheter is currently draining well with CBI on slow-moderate rate. Urine is clear yellow to light pink/red. No acute intervention planned for today. Maintain Velásquez catheter. Can titrate CBI as needed or hand irrigate prn clots/retention/suprapubic pain. Ideally would try to wean CBI if able. Continue supportive care and antibiotic therapy. Anticoagulation on hold. Will make NPO at midnight and reassess in the AM. If she continues to have bleeding, will consider OR for cystoscopy. Discussed with hospital team. Urology will follow. Admission and Anticipated Discharge Date Admission Date: October 28, 2022 Subjective Patient examined at bedside this AM. Awake, resting in bed on arrival. No acute distress. Per nursing, patient noted bladder pain and leakage around catheter earlier this morning. She was given pain medication which helped. Urine was noted to go from clear yellow to light pink/red. CBI increased to moderate rate per nursing. Velásquez catheter currently intact, draining clear yellow urine to light pink with CBI on moderate. Patient denies any pain or discomfort at present. No fevers. No nausea or vomiting. Received 1 unit PRBC yesterday. Review of Systems Constitutional: as per Subjective / HPI Gastrointestinal: as per Subjective / HPI Genitourinary: as per Subjective / HPI Physical Exam Constitutional: no acute distress Respiratory: no respiratory distress and no labored breathing Gastrointestinal (Abdomen): Percussion/Palpation: abdomen soft; abdomen nontender Psychiatric: Orientation: alert and oriented x 3 Genitourinary: Velásquez catheter intact with CBI Results & Data ([facility]) Vital Signs (Past 12 Hours) Vital Signs Temp Pulse Pulse Pulse Resp BP Pulse Ox 10/30/22 07:27 36.4 C L 70 12 114/53 L 94 10/30/22 02:57 36.6 C 65 16 156/65 H 98 10/29/22 22:02 72 10/29/22 22:43 02/09/23 22:42 36.8 C 67 16 116/55 L 94 10/29/22 21:56 72 123/57 L O2 Del Method O2 Del Method 10/30/22 07:27 Room Air 10/30/22 02:57 Room Air 10/29/22 22:02 10/29/22 22:43 Room Air 10/29/22 22:42 Room Air 10/29/22 21:56 PG Care Time/CCT Total # of Minutes Spent Total Time Spent with Patient: Total time spent is greater than 50% in coordination of care (as documented) at patient's floor/unit and/or counseling patient: Coding Level of Care Code 85773 SUB INP/OBS CARE 2/35MIN Diagnoses Gross hematuria R31.0
[2022-10-30 08:48] LABS: BUN Creatinine Ratio 21.3 (10-20); Calcium 7.9 mg/dl (8.5-10.1); Creatinine Clr Calc Pharmacy 28.5 ml/min; Est GFR (African American) 53.1 ml/min; Est GFR (Non-African American) 45.8 ml/min; Potassium 4.2 mmol/L (3.5-5.1)
[2022-10-30 08:53] LABS: Hematocrit (blood only) 27.4 % (37.0-47.0); Hemoglobin 8.7 g/dl (12.0-16.0); Mean Corpuscular Hemoglobin 27.6 pg (25.0-34.0); Mean Corpuscular Hgb Conc 31.8 g/dL (32.0-36.0); Mean Platelet Volume 10.6 fL (9.4-12.4); Platelet Count 142 K/uL (130-400); RDW Coefficient of Variation 16.1 % (11.5-14.5); RDW Standard Deviation 50.9 fL (36.4-46.3); Red Blood Count 3.15 M/uL (4.20-5.40); White Blood Count 6.28 K/ul (4.8-10.8)
--- NOTE | 2022-10-30 16:02 | Hospitalist Progress Note ---
Date of Service October 30, 2022 Assessment & Plan (1) Gross hematuria: (2) Anemia due to acute blood loss: Plan: Anemia of chronic kidney disease Present on admission with hematuria in the setting of anticoagulant Hgb 9.7 and INR 2.6 on admission Received IV vitamin K yesterday Hgb 8.7 today S/P 1 unit PRBC on 10/30 Type and crossed done and consent signed. She is getting 1 unit PRBC currently Continue monitor H/H Urine cx grew multiple organisms- Continue Nitrofurantoin HS Urology on board Continue supportive care therapy. No acute intervention warranted at this time. Maintain Velásquez catheter, can titrate CBI as needed as per urology Continue to hold anticoagulation If she continues to have bleeding/hematuria, will consider OR for cystoscopy. Will make NPO after midnight History of atrial fibrillation Rate controlled with amiodarone and metoprolol. Continue to hold coumadin due to hematuria Diabetes type 2 Most recent hab1c 7.4 on 08/25 Continue insulin sliding scale Continue monitor Chronic kidney disease stage IV. Creatinine 1.08 today Stable Ambulatory dysfunction Wheelchair bound because of arthritis. Continue PT/OT eval Hypothyroidism Continue Synthroid. Hyperlipidemia Continue statin DVT px on SCD Code status Full code Admission and Anticipated Discharge Date Admission Date: October 28, 2022 Subjective Pt was seen and examined for follow up of hematuria Lying in bed with no acute distress She said that she feels ok She received 1 unit PRBC yesterday Denies any chest pain, palpitation, dizziness and SOB Review of Systems Review of Systems: All systems reviewed & are unremarkable except as noted in Subjective Physical Exam Physical Exam: General- No acute distress Head- atraumatic Eyes- PERRL, EOMI, ENT- oropharynx clear Neck- supple, no JVD Lungs- clear to auscultation Heart- regular rhythm; no murmur Abdomen- normal bowel sounds, soft, nontender Extremities- no calf tenderness Neuro- alert, oriented x 3; PERRL, EOMI; no facial palsy; no dysarthria Skin- warm & dry Results & Data Results & Data ([facility]) Vital Signs (Past 12 Hours) Vital Signs Temp Pulse Pulse Resp BP Pulse Ox O2 Del Method 10/30/22 15:21 68 10/30/22 12:00 36.9 C 95 H 18 126/63 95 Room Air 10/30/22 07:30 66 10/30/22 07:30 Room Air 10/30/22 07:27 36.4 C L 70 12 114/53 L 94 Room Air
[2022-10-30] MEDS: BETAMETHASONE VAL 0.1% CR 15 GM EXT SCH (21:04)
[2022-10-30] MEDS: DOCUSATE SODIUM 100 MG CAP PO SCH (21:04)
[2022-10-30] MEDS: MELATONIN 3 MG TAB PO SCH (21:05)
[2022-10-30] MEDS: NITROFURANTOIN MONOHYDRATE 100 MG CAP PO SCH (21:06)
[2022-10-30] MEDS: TAMSULOSIN HCL 0.4 MG CAP PO SCH (21:06)
[2022-10-30] MEDS: ROSUVASTATIN CALCIUM 10 MG TAB PO SCH (21:06)
[2022-10-31] MEDS: ESTRACE~ORDER AWAITING ACTION SCH ×4 (00:21→23:47)
[2022-10-31] MEDS: SODIUM CHLORIDE 0.9% 1000ML 1,000 ML IV SCH (03:51)
[2022-10-31] MEDS: LEVOTHYROXINE SODIUM 100 MCG TABLET PO SCH (05:48)
[2022-10-31] MEDS: PHENAZOPYRIDINE HCL 100 MG TAB PO PRN (05:52)
[2022-10-31 06:17] LABS: Hematocrit (blood only) 26.1 % (37.0-47.0); Hemoglobin 8.3 g/dl (12.0-16.0); Mean Corpuscular Hemoglobin 27.8 pg (25.0-34.0); Mean Corpuscular Hgb Conc 31.8 g/dL (32.0-36.0); Mean Corpuscular Volume 87.3 fL (80.0-100.0); Mean Platelet Volume 10.6 fL (9.4-12.4); Platelet Count 136 K/uL (130-400); RDW Coefficient of Variation 15.9 % (11.5-14.5); RDW Standard Deviation 49.9 fL (36.4-46.3); Red Blood Count 2.99 M/uL (4.20-5.40); White Blood Count 6.29 K/ul (4.8-10.8)
--- NOTE | 2022-10-31 08:56 | Urology Progress Note ---
Date of Service October 31, 2022 Assessment & Plan (1) Hematuria: (2) Dysuria: Plan Hematuria Anticoagulation held On nitrofurantoin prophylaxis only Cultures not growing any acute bacteria Creatinine 1.0 Urine completely clear today I favor removal of the catheter and discharge home if she remains stable and is voiding adequately Outpatient follow-up for cystoscopy Pending findings of cystoscopy will we will have to determine risks, benefits of continuing anticoagulation Admission and Anticipated Discharge Date Admission Date: October 28, 2022 Subjective No issues overnight Feeling very well this morning Urine completely clear Physical Exam Physical Exam: Clear urine, CBI clamped Results & Data ([facility]) Vital Signs (Past 12 Hours) Vital Signs Temp Pulse Pulse Resp BP Pulse Ox O2 Del Method 10/31/22 07:02 36.6 C 69 18 134/61 91 Room Air 10/31/22 02:30 36.7 C 65 17 135/64 95 Room Air 10/30/22 22:53 73 10/31/22 00:31 Room Air 10/30/22 22:00 10/30/22 22:09 36.7 C 68 16 135/61 95 Room Air 10/30/22 21:10 37.2 C 73 16 134/61 91 Room Air O2 Del Method 10/31/22 07:02 10/31/22 02:30 10/30/22 22:53 10/31/22 00:31 10/30/22 22:00 Room Air 10/30/22 22:09 10/30/22 21:10 PG Care Time/CCT Total # of Minutes Spent Total Time Spent with Patient: Total time spent is greater than 50% in coordination of care (as documented) at patient's floor/unit and/or counseling patient: Coding Level of Care Code 09250 SUB INP/OBS CARE 2/35MIN Diagnoses Hematuria R31.0 Hematuria type: gross Dysuria R30.0 (1) Hematuria Hematuria type: gross Qualified Code(s): R31.0 - Gross hematuria
[2022-10-31] MEDS: INSULIN ASPART PER UNIT SC SCH ×4 (09:00→20:17)
[2022-10-31] MEDS: CEROVITE ADV FORMULA TAB PO SCH ×2 (09:35→20:09)
[2022-10-31] MEDS: METOPROLOL TARTRATE 25 MG TAB PO SCH ×2 (09:35→20:08)
[2022-10-31] MEDS: FERROUS SULFATE 325 MG TAB PO SCH (09:35)
[2022-10-31] MEDS: CYANOCOBALAMIN (B-12) 500 MCG TABLET PO SCH (09:35)
[2022-10-31] MEDS: AMIODARONE 200 MG TAB PO SCH (09:35)
[2022-10-31] MEDS: CHOLECALCIFEROL 1,000 UNITS 25 MCG TAB PO SCH (09:35)
[2022-10-31] MEDS: SACCHAROMYCES BOULARDII 250 MG CAP PO SCH (09:36)
--- NOTE | 2022-10-31 14:44 | Hospitalist Progress Note ---
Date of Service October 31, 2022 Assessment & Plan (1) Gross hematuria: (2) Anemia due to acute blood loss: Plan: Anemia of chronic kidney disease Present on admission with hematuria in the setting of anticoagulant Hgb 9.7 and INR 2.6 on admission Received IV vitamin K yesterday Hgb 8.3 today S/P 1 unit PRBC on 10/30 Type and crossed done and consent signed. She is getting 1 unit PRBC currently Continue monitor H/H Urine cx grew multiple organisms- Continue Nitrofurantoin HS Urology on board Continue supportive care therapy. No acute intervention warranted at this time. Maintain Galdamez catheter, can titrate CBI as needed as per urology Urine clear and galdamez catheter removed Continue to hold anticoagulation for now will decide to resume anticoagulant after outpatient cystoscopy to determine risks, benefits of continuing anticoagulation Continue monitor History of atrial fibrillation Rate controlled with amiodarone and metoprolol. Continue to hold coumadin due to hematuria Diabetes type 2 Most recent hab1c 7.4 on 08/25 Continue insulin sliding scale Continue monitor Chronic kidney disease stage IV. Creatinine 1.08 Stable Ambulatory dysfunction Wheelchair bound because of arthritis. Continue PT/OT eval Hypothyroidism Continue Synthroid. Hyperlipidemia Continue statin DVT px on SCD due to hematuria Code status Full code Disposition [facility] will be able to accept her on Wednesday as per case management Admission and Anticipated Discharge Date Admission Date: October 28, 2022 Subjective Pt was seen and examined for follow up of hematuria Lying in bed with no acute distress She said that she feels ok Her urine clear and Galdamez catheter removed During the encounter daughter came to visit. I provided update to daughter and answered all her questions Denies any chest pain, palpitation, dizziness and SOB Review of Systems Review of Systems: All systems reviewed & are unremarkable except as noted in Subjective Physical Exam Physical Exam: General- No acute distress Head- atraumatic Eyes- PERRL, EOMI, ENT- oropharynx clear Neck- supple, no JVD Lungs- clear to auscultation Heart- regular rhythm; no murmur Abdomen- normal bowel sounds, soft, nontender Extremities- no calf tenderness Neuro- alert, oriented x 3; PERRL, EOMI; no facial palsy; no dysarthria Skin- warm & dry Results & Data Results & Data ([facility]) Vital Signs (Past 12 Hours) Vital Signs Temp Pulse Pulse Pulse Resp BP Pulse Ox 10/31/22 11:16 36.4 C L 69 18 114/52 L 95 10/31/22 07:10 69 10/31/22 07:10 10/31/22 07:35 36.6 C 67 18 130/64 93 10/31/22 07:02 36.6 C 69 18 134/61 91 O2 Del Method 10/31/22 11:16 Room Air 10/31/22 07:10 10/31/22 07:10 Room Air 10/31/22 07:35 Room Air 10/31/22 07:02 Room Air
[2022-10-31] MEDS: DOCUSATE SODIUM 100 MG CAP PO SCH (20:08)
[2022-10-31] MEDS: MELATONIN 3 MG TAB PO SCH (20:08)
[2022-10-31] MEDS: ROSUVASTATIN CALCIUM 10 MG TAB PO SCH (20:09)
[2022-10-31] MEDS: NITROFURANTOIN MONOHYDRATE 100 MG CAP PO SCH (20:09)
[2022-10-31] MEDS: TAMSULOSIN HCL 0.4 MG CAP PO SCH (20:09)
[2022-10-31] MEDS: BETAMETHASONE VAL 0.1% CR 15 GM EXT SCH (20:11)
[2022-11-01 05:42] LABS: Hematocrit (blood only) 26.2 % (37.0-47.0); Hemoglobin 8.4 g/dl (12.0-16.0); Mean Corpuscular Hemoglobin 27.5 pg (25.0-34.0); Mean Corpuscular Hgb Conc 32.1 g/dL (32.0-36.0); Mean Corpuscular Volume 85.9 fL (80.0-100.0); Mean Platelet Volume 10.3 fL (9.4-12.4); Platelet Count 143 K/uL (130-400); RDW Coefficient of Variation 15.9 % (11.5-14.5); RDW Standard Deviation 49.2 fL (36.4-46.3); Red Blood Count 3.05 M/uL (4.20-5.40); White Blood Count 5.99 K/ul (4.8-10.8)
[2022-11-01] MEDS: LEVOTHYROXINE SODIUM 100 MCG TABLET PO SCH (06:27)
[2022-11-01] MEDS: SACCHAROMYCES BOULARDII 250 MG CAP PO SCH (08:17)
[2022-11-01] MEDS: METOPROLOL TARTRATE 25 MG TAB PO SCH ×2 (08:17→21:33)
[2022-11-01] MEDS: AMIODARONE 200 MG TAB PO SCH (08:17)
[2022-11-01] MEDS: CEROVITE ADV FORMULA TAB PO SCH ×2 (08:17→21:26)
[2022-11-01] MEDS: CYANOCOBALAMIN (B-12) 500 MCG TABLET PO SCH (08:17)
[2022-11-01] MEDS: FERROUS SULFATE 325 MG TAB PO SCH (08:17)
[2022-11-01] MEDS: CHOLECALCIFEROL 1,000 UNITS 25 MCG TAB PO SCH (08:17)
[2022-11-01] MEDS: INSULIN ASPART PER UNIT SC SCH ×4 (08:25→21:25)
--- NOTE | 2022-11-01 08:57 | Urology Progress Note ---
Date of Service November 01, 2022 Assessment & Plan (1) Hematuria: Plan Velásquez removed yesterday Voiding adequately [facility] on Admission and Anticipated Discharge Date Admission Date: October 28, 2022 Subjective Reports that she feels very well Reports her urine has been clear Her only complaint has been incontinencethis is mostly due to the limited mobility and difficult ambulation I have discussed with her that I would like to see her in the office on and try to perform a cystoscopy to better evaluate the cause of her bleeding She previously has been under the care of Dr. Harrington but is interested in scheduling this appointment with me Physical Exam Constitutional: well developed and well nourished Respiratory: no respiratory distress Cardiovascular: Extremities: no pedal edema Gastrointestinal (Abdomen): Inspection/Auscultation: abdomen normal to inspection Results & Data ([facility]) Vital Signs (Past 12 Hours) Vital Signs Temp Pulse Pulse Resp BP Pulse Ox O2 Del Method 11/01/22 07:23 36.6 C 69 16 116/49 L 93 Room Air 11/01/22 02:44 36.8 C 66 15 133/70 90 Room Air 10/31/22 22:08 72 10/31/22 22:15 36.7 C 67 16 148/65 H 93 Room Air PG Care Time/CCT Total # of Minutes Spent Total Time Spent with Patient: Total time spent is greater than 50% in coordination of care (as documented) at patient's floor/unit and/or counseling patient: Coding Level of Care Code 49144 SUB INP/OBS CARE 1/25MIN Diagnoses Hematuria R31.0 Hematuria type: gross (1) Hematuria Hematuria type: gross Qualified Code(s): R31.0 - Gross hematuria
[2022-11-01] MEDS: ESTRACE~ORDER AWAITING ACTION SCH ×3 (09:11→23:47)
--- NOTE | 2022-11-01 14:18 | Hospitalist Progress Note ---
Date of Service November 01, 2022 Assessment & Plan (1) Gross hematuria: (2) Anemia due to acute blood loss: Plan: Anemia of chronic kidney disease Present on admission with hematuria in the setting of anticoagulant Hgb 9.7 and INR 2.6 on admission Received IV vitamin K yesterday Hgb 8.4 today S/P 1 unit PRBC on 10/30 Type and crossed done and consent signed. She is getting 1 unit PRBC currently Continue monitor H/H Urine cx grew multiple organisms- Continue Nitrofurantoin HS Urology on board Continue supportive care therapy. No acute intervention warranted at this time. Maintain Galdamez catheter, can titrate CBI as needed as per urology Urine clear and galdamez catheter removed Continue to hold anticoagulation for now Follow up with urology office on and try to perform a cystoscopy to better evaluate the cause of her bleeding will decide to resume anticoagulant after outpatient cystoscopy to determine risks, benefits of continuing anticoagulation Continue monitor History of atrial fibrillation Rate controlled with amiodarone and metoprolol. Continue to hold coumadin due to hematuria Diabetes type 2 Most recent hab1c 7.4 on 08/25 Continue insulin sliding scale Continue monitor Chronic kidney disease stage IV. Creatinine 1.08 Stable Ambulatory dysfunction Wheelchair bound because of arthritis. Continue PT/OT eval Hypothyroidism Continue Synthroid. Hyperlipidemia Continue statin DVT px on SCD due to hematuria Code status Full code Disposition [facility] will be able to accept her on Wednesday as per case management Admission and Anticipated Discharge Date Admission Date: October 28, 2022 Subjective Pt was seen and examined for follow up of hematuria Lying in bed with no acute distress She said that she feels ok Denies any chest pain, palpitation, dizziness and SOB Review of Systems Review of Systems: All systems reviewed & are unremarkable except as noted in Subjective Physical Exam Physical Exam: General- No acute distress Head- atraumatic Eyes- PERRL, EOMI, ENT- oropharynx clear Neck- supple, no JVD Lungs- clear to auscultation Heart- regular rhythm; no murmur Abdomen- normal bowel sounds, soft, nontender Extremities- no calf tenderness Neuro- alert, oriented x 3; PERRL, EOMI; no facial palsy; no dysarthria Skin- warm & dry Results & Data Results & Data ([facility]) Vital Signs (Past 12 Hours) Vital Signs Temp Pulse Pulse Resp BP Pulse Ox O2 Del Method 11/01/22 11:39 36.8 C 64 16 135/70 94 Room Air 11/01/22 08:00 69 11/01/22 07:23 36.6 C 69 16 116/49 L 93 Room Air 11/01/22 02:44 36.8 C 66 15 133/70 90 Room Air
[2022-11-01] MEDS: DOCUSATE SODIUM 100 MG CAP PO SCH (21:24)
[2022-11-01] MEDS: BETAMETHASONE VAL 0.1% CR 15 GM EXT SCH (21:24)
[2022-11-01] MEDS: MELATONIN 3 MG TAB PO SCH (21:26)
[2022-11-01] MEDS: PHENAZOPYRIDINE HCL 100 MG TAB PO PRN (21:28)
[2022-11-01] MEDS: ROSUVASTATIN CALCIUM 10 MG TAB PO SCH (21:28)
[2022-11-01] MEDS: TAMSULOSIN HCL 0.4 MG CAP PO SCH (21:29)
[2022-11-01] MEDS: NITROFURANTOIN MONOHYDRATE 100 MG CAP PO SCH (21:29)
[2022-11-02] MEDS: LEVOTHYROXINE SODIUM 100 MCG TABLET PO SCH (06:17)
[2022-11-02] MEDS: ESTRACE~ORDER AWAITING ACTION SCH (08:20)
[2022-11-02] MEDS: CYANOCOBALAMIN (B-12) 500 MCG TABLET PO SCH (08:21)
[2022-11-02] MEDS: AMIODARONE 200 MG TAB PO SCH (08:21)
[2022-11-02] MEDS: CHOLECALCIFEROL 1,000 UNITS 25 MCG TAB PO SCH (08:21)
[2022-11-02] MEDS: FERROUS SULFATE 325 MG TAB PO SCH (08:22)
[2022-11-02] MEDS: CEROVITE ADV FORMULA TAB PO SCH (08:22)
[2022-11-02] MEDS: SACCHAROMYCES BOULARDII 250 MG CAP PO SCH (08:22)
[2022-11-02] MEDS: METOPROLOL TARTRATE 25 MG TAB PO SCH (08:22)
[2022-11-02] MEDS: INSULIN ASPART PER UNIT SC SCH ×3 (08:53→16:57)
[2022-11-02 09:47] LABS: Hematocrit (blood only) 26.1 % (37.0-47.0); Hemoglobin 8.3 g/dl (12.0-16.0); Mean Corpuscular Hemoglobin 27.2 pg (25.0-34.0); Mean Corpuscular Hgb Conc 31.8 g/dL (32.0-36.0); Mean Corpuscular Volume 85.6 fL (80.0-100.0); Mean Platelet Volume 10.8 fL (9.4-12.4); Platelet Count 159 K/uL (130-400); RDW Coefficient of Variation 15.6 % (11.5-14.5); RDW Standard Deviation 48.4 fL (36.4-46.3); Red Blood Count 3.05 M/uL (4.20-5.40); White Blood Count 7.38 K/ul (4.8-10.8)
--- NOTE | 2022-11-02 15:18 | Discharge Summary ---
Date of Service November 02, 2022 Admission HPI Per Admitting Provider CHIEF COMPLAINT: Gross hematuria. HISTORY OF PRESENT ILLNESS: An 87-year-old female with past medical history significant for type 2 diabetes, hypothyroidism, hyperlipidemia, paroxysmal atrial fibrillation, hypertension, chronic kidney disease stage IV, anemia due to chronic kidney disease, history of MRSA infection, history of depression, history of traumatic subdural hematoma, history of COVID, history of ambulatory dysfunction, currently on wheelchair because of arthritis in the knee, but she says she can transfer herself to the wheelchair, beth comes from [facility]. The patient recently, end september, was here with hematuria and UTI. At that time INR was 2.9 on presentation, she was given vitamin K and also she was treated with Rocephin and received 1 unit of PRBCs. Hematuria resolved and she was discharged and also she was placed on chronic prophylactic Macrobid. [facility] and advised her to hold Coumadin for 2 weeks and also to hold aspirin indefinitely and they plan to follow up in 3-4 months to consider cystoscopy at that time. Today patient was brought in because of dysuria and hematuria. It looks like she had clots and some difficulty to lace catheter in the ER, . Currently she is on continuous bladder irrigation and is still having hematuria. The patient was drowsy, but able to arouse her and sometimes is confused, but able to give her history. Denies any chest pain, no shortness of breath, no nausea, no abdominal pain, no fevers, no difficulty swallowing. Appetite is not that great and no headache, no earache, no runny nose, no sore throat, no cough, no abdominal pain. Resting comfortably and hemodynamically stable. Admission Exam Per Admitting Provider GENERAL: The patient is old and frail, not in acute distress. VITAL SIGNS: Temperature 37.3, pulse 75, respiratory rate 16, blood pressure 105/55, oxygen 96% on room air. HEENT: Pupils equal, round and reactive to light. Oral mucosa moist. NECK: No JVD, no neck masses. CARDIOVASCULAR: S1 and S2 heard. Regular rate and rhythm. No murmur, no ga llop. RESPIRATORY SYSTEM: Normal AP diameter. No accessory muscle use. No wheezing, no crackles. ABDOMEN: Soft, bowel sounds present, nontender, no distention. CENTRAL NERVOUS SYSTEM: Alert and awake with simple commands. Speech is clear. Moves extremities. EXTREMITIES: No edema, no erythema. Principal Diagnosis Gross hematuria Anemia due to acute blood loss Anemia of chronic kidney disease History of atrial fibrillation Diabetes type 2 Chronic kidney disease stage IV. Ambulatory dysfunction Hypothyroidism Hyperlipidemia Discharge Exam General- No acute distress Head- atraumatic Eyes- PERRL, EOMI, ENT- oropharynx clear Neck- supple, no JVD Lungs- clear to auscultation Heart- regular rhythm; no murmur Abdomen- normal bowel sounds, soft, nontender Extremities- no calf tenderness Neuro- alert, oriented x 3; PERRL, EOMI; no facial palsy; no dysarthria Skin- warm & dry Discharge Data Allergies Allergy/AdvReac Type Severity Reaction Status Date / Time amoxicillin Allergy Intermediate Unknown Verified 10/28/22 06:13 sulfamethoxazole Allergy Intermediate Rash Verified 10/27/22 23:23 tetanus toxoid, adsorbed Allergy Intermediate HIVES Verified 10/27/22 23:23 tetracycline Allergy Intermediate hives Verified 10/27/22 23:23 trimethoprim Allergy Intermediate Rash Verified 10/27/22 23:23 rosuvastatin AdvReac Intermediate Muscle Verified 10/27/22 23:23 stiffness Consultations 10/28/22 03:35 ED Decision to Admit Stat 10/28/22 08:00 Consult Urology Routine Ordered Studies 10/28/22 09:19 US renal/blad retro comp Urgent Laboratory Results WBC 7.38 K/ul (4.8-10.8) 11/02/22 09:14 RBC 3.05 M/uL (4.20-5.40) L 11/02/22 09:14 Hgb 8.3 g/dl (12.0-16.0) L 11/02/22 09:14 Hct 26.1 % (37.0-47.0) L 11/02/22 09:14 MCV 85.6 fL (80.0-100.0) 11/02/22 09:14 MCH 27.2 pg (25.0-34.0) 11/02/22 09:14 MCHC 31.8 g/dL (32.0-36.0) L 11/02/22 09:14 RDW Std Deviation 48.4 fL (36.4-46.3) H 02/13/23 09:14 RDW Coeff of Hope 15.6 % (11.5-14.5) H 11/02/22 09:14 Plt Count 159 K/uL (130-400) 11/02/22 09:14 MPV 10.8 fL (9.4-12.4) 11/02/22 09:14 Immature Gran % (Auto) 0.6 % 10/28/22 06:40 Neut % (Auto) 58.4 % 10/28/22 06:40 Lymph % (Auto) 27.7 % 10/28/22 06:40 Ashley % (Auto) 10.8 % 10/28/22 06:40 Eos % (Auto) 2.2 % 10/28/22 06:40 Baso % (Auto) 0.3 % 10/28/22 06:40 Neut # (Auto) 3.89 K/uL (1.40-6.50) 10/28/22 06:40 Lymph # (Auto) 1.85 K/uL (1.2-3.4) 10/28/22 06:40 Ashley # (Auto) 0.72 K/uL (0.11-0.59) H 10/28/22 06:40 Eos # (Auto) 0.15 K/uL (0-0.50) 10/28/22 06:40 Baso # (Auto) 0.02 K/uL (0-0.2) 10/28/22 06:40 Immature Gran # (Auto) 0.04 K/uL (0.01-0.20) 10/28/22 06:40 PT 13.8 Seconds (9.0-12.0) H 10/29/22 08:25 INR 1.3 (0.9-1.1) H 10/29/22 08:25 Sodium 139 mmol/L (136-145) 10/30/22 08:08 Potassium 4.2 mmol/L (3.5-5.1) 10/30/22 08:08 Chloride 111 mmol/L (98-107) H 10/30/22 08:08 Carbon Dioxide 23 mmol/L (21-32) 10/30/22 08:08 Anion Gap 5 (3-11) 10/30/22 08:08 BUN 23 mg/dl (6-23) 10/30/22 08:08 Creatinine 1.08 mg/dl (0.6-1.2) 10/30/22 08:08 Est Cr Clr Drug Dosing 28.5 ml/min 10/30/22 08:08 Est GFR ( Amer) 53.1 ml/min 10/30/22 08:08 Est GFR (Non-Af Amer) 45.8 ml/min 10/30/22 08:08 BUN/Creatinine Ratio 21.3 (10-20) H 10/30/22 08:08 Glucose 148 mg/dl (70-99(Fasting)) H 10/30/22 08:08 POC Glucose 206 mg/dl (70-99) H 11/02/22 11:15 Calcium 7.9 mg/dl (8.5-10.1) L 10/30/22 08:08 Magnesium 2.0 mg/dl (1.7-2.4) 10/28/22 06:40 Total Bilirubin 0.4 mg/dl (0.2-1.0) 10/27/22 23:25 AST 38 U/L (13-39) 10/27/22 23:25 ALT 46 U/L (7-52) 10/27/22 23:25 Alkaline Phosphatase 71 U/L (34-104) 10/27/22 23:25 Total Protein 6.4 gm/dl (6.0-8.3) 10/27/22 23:25 Albumin 3.5 gm/dl (3.4-5.0) 10/27/22 23:25 Globulin 2.9 gm/dl (2.5-4.0) 10/27/22 23:25 Albumin/Globulin Ratio 1.2 (0.9-2) 10/27/22 23:25 Lipase 89 U/L (11-82) H 10/27/22 23:25 Urine Color Red 10/28/22 01:20 Urine Appearance Turbid (Clear) A 10/28/22 01:20 Urine pH 7.0 (4.5-7.5) 10/28/22 01:20 Ur Specific Morrison >= 1.030 (1.000-1.030) 10/28/22 01:20 Urine Protein 3+ (Negative) H 10/28/22 01:20 Urine Glucose (UA) Negative (Negative) 10/28/22 01:20 Urine Ketones Negative (Negative) 10/28/22 01:20 Urine Blood 3+ (Negative) H 10/28/22 01:20 Urine Nitrite Negative (Negative) 10/28/22 01:20 Urine Bilirubin Negative (Negative) 10/28/22 01:20 Urine Urobilinogen Negative (Negative) 10/28/22 01:20 Ur Leukocyte Esterase Negative (Negative) 10/28/22 01:20 Urine RBC >30 /hpf (0-4) H 10/28/22 01:20 Urine WBC >30 /hpf (0-5) H 10/28/22 01:20 Ur Epithelial Cells 10-20 /lpf (0-5) H 10/28/22 01:20 Urine Bacteria Negative (Negative) 10/28/22 01:20 SARS-CoV-2, RNA, NAAT NEGATIVE (NEGATIVE) 10/28/22 03:18 Blood Type A Positive 10/28/22 23:52 Antibody Screen NEGATIVE 10/28/22 23:52 Crossmatch See Detail 10/28/22 23:52 Impressions Renal Ultrasound 10/28/22 09:19 RENAL ULTRASOUND HISTORY: Acute hematuria gross hematuria COMPARISON: CT 10/08/2022 FINDINGS: Right kidney: 9.2 x 4.9 x 4.7 No hydronephrosis. Diffuse cortical thinning with increased echogenicity of the renal parenchyma. No shadowing renal calculi identified. Left kidney: 8.9 x 5.2 x 4.7 No hydronephrosis. Cysts of the left kidney measure up to 1.8 x 1.6 x 1.7 cm. Diffuse cortical thinning with increased echogenicity of the renal parenchyma. No shadowing renal calculi identified. Bladder: Decompressed urinary bladder with Velásquez catheter in place. Echogenic structure without color flow within the urinary bladder lumen measures 4.8 x 2.5 x 4.4 cm. IMPRESSION: 1. No shadowing renal calculi or hydronephrosis identified by ultrasound. 2. Evidence of chronic medical renal disease. 3. Decompressed urinary bladder with Velásquez catheter. Moderate sized blood clot noted within the urinary bladder lumen. ACT 112: Negative or not required by law. Electronically signed by: Tod Hou M.D. 10/28/2022 11:16 AM Hospital Course (1) Gross hematuria: (2) Anemia due to acute blood loss: Anemia of chronic kidney disease Present on admission with hematuria in the setting of anticoagulant Hgb 9.7 and INR 2.6 on admission Received IV vitamin K yesterday Hgb 8.4 today S/P 1 unit PRBC on 10/30 Type and crossed done and consent signed. She is getting 1 unit PRBC currently Continue monitor H/H Urine cx grew multiple organisms- Continue Nitrofurantoin HS Urology on board Continue supportive care therapy. No acute intervention warranted at this time. Maintain Velásquez catheter, can titrate CBI as needed as per urology Urine clear and Velásquez catheter removed Continue to hold anticoagulation for now Follow up with urology office on and try to perform a cystoscopy to better evaluate the cause of her bleeding will decide to resume anticoagulant after outpatient cystoscopy to determine risks, benefits of continuing anticoagulation Check CBC within 1 week to monitor hemoglobin Continue monitor History of atrial fibrillation Rate controlled with amiodarone and metoprolol. Continue to hold coumadin due to hematuria will decide to resume anticoagulant after outpatient cystoscopy to determine risks, benefits of continuing anticoagulation Diabetes type 2 Most recent hab1c 7.4 on 08/25 Continue insulin sliding scale Continue monitor Chronic kidney disease stage IV. Creatinine 1.08 Stable Ambulatory dysfunction Wheelchair bound because of arthritis. Continue PT/OT eval Hypothyroidism Continue Synthroid. Hyperlipidemia Continue statin DVT px on SCD due to hematuria Code status Full code Disposition Will discharge to [facility] today Total Time Total Time Spent Total Time Spent (In Minutes): 35 minutes Discharge Plan Discharge Items Patient Disposition: Personal Long Term Reason For Visit: HEMATURIA Discharge Diagnosis: Gross hematuria Anemia due to acute blood loss Anemia of chronic kidney disease History of atrial fibrillation Diabetes type 2 Chronic kidney disease stage IV. Ambulatory dysfunction Hypothyroidism Hyperlipidemia Activity: Resume your previous activity Non-emergency contact: Primary Care Provider and Urologist Call non-emergency contact if: you have any medication questions Follow-up/Referrals: Kendall Smith at [facility] [Primary Care Provider] - Diet: Heart Healthy Addtl Attending Provider Instructions: Follow up with your primary care provider at [facility] Follow up with urology outpatient on Continue physical and occupational therapy Continue to hold Coumadin for now will decide to resume anticoagulant after outpatient cystoscopy to determine risks, benefits of continuing anticoagulation Check CBC within 1 week to monitor your hemoglobin Fall precaution Seek medical attention if your symptoms reoccurs Pending Studies at Discharge: No Stand-Alone Forms: My [facility] [employer], Smoking Cessation Skilled Items Patient informed of condition?: Yes DNR: No Discharge Level of Care: Other Communicable Disease: No Discharge Prognosis: Stable Lines: None Urinary Catheter: No Medications and DC Order Prescriptions: New acetaminophen 325 mg Tablet 650 mg PO Q8H PRN (Reason: pain or fever) Qty: 30 0RF Continued tamsulosin [Flomax] 0.4 mg capsule 0.4 mg PO HS Qty: 90 3RF fluticasone propionate [Flonase Allergy Relief] 50 mcg/actuation [place],Suspension 2 spray INTRANASAL HS PRN (Reason: Nasal Congestion) levothyroxine 100 mcg tablet 100 mcg PO DAILYBB Rx Instructions: TAKE THIS MEDICATION AT LEAST 30 MINUTES BEFORE BREAKFAST OR ANY OTHER MEDICATIONS docusate sodium [Col-Rite] 100 mg capsule 100 mg PO HS glipizide 5 mg tablet 10 mg PO QAM rosuvastatin 10 mg tablet 10 mg PO HS polyethylene glycol 3350 [Miralax] 17 gram Powder In Packet 17 g PO DAILY PRN (Reason: constipation) Qty: 30 0RF warfarin 1 mg Tablet 1 mg PO 4XWK Rx Instructions: /// cholecalciferol (vitamin D3) [Vitamin D3] 25 mcg (1,000 unit) Tablet 50 mcg PO DAILY Januvia 25 mg tablet 25 mg PO DAILY PreserVision AREDS-2 250-90-40-1 mg Capsule 1 tab PO BID metoprolol tartrate 25 mg Tablet 12.5 mg PO BID Qty: 60 0RF estradiol 0.01 % (0.1 mg/gram) cream 1 g VAGINAL QPM ketoconazole 2 % Shampoo 1 ea TOPICAL 3XWK Rx Instructions: USES MON, WED, & FRI. loperamide 2 mg Capsule 2 mg PO Q8H PRN (Reason: Diarrhea) melatonin 3 mg Tablet 3 mg PO HS acetaminophen [Tylenol Extra Strength] 500 mg Tablet 1,000 mg PO Q8H MDD 3-4 GRAMS/24 HOURS PRN (Reason: FEVER >100.5/MODERATE PAIN) ferrous sulfate 325 mg (65 mg iron) Tablet 325 mg PO DAILY betamethasone valerate 0.12 % foam 1 applic TOPICAL HS Rx Instructions: APPLY TO SCALP hydroxyzine HCl 10 mg Tablet 10 mg PO Q6H PRN (Reason: Anxiety) Saccharomyces boulardii 250 mg Capsule 250 mg PO DAILY guaifenesin 600 mg Tablet Extended Release 12hr 600 mg PO Q12H PRN (Reason: Congestion) amiodarone 200 mg tablet 200 mg PO QAM warfarin 1 mg tablet 1.5 mg PO 3XWK Rx Instructions: M/W/F nitrofurantoin monohyd/m-cryst 100 mg capsule 100 mg PO HS docusate sodium [Colace] 100 mg Capsule 100 mg PO Q24H PRN (Reason: NO BM FOR 2 DAYS.) cyanocobalamin (vitamin B-12) [Vitamin B-12] 1,000 mcg Tablet, Sublingual 1,000 mcg SUBLINGUAL DAILY mupirocin 2 % Ointment 1 applic TOPICAL DAILY PRN (Reason: Skin Irritation) Rx Instructions: APPLY TO AFFECTED AREA menthol-zinc oxide [Calmoseptine] 0.44-20.6 % Ointment 1 applic TOPICAL QPM PRN (Reason: COCCYX AREA SCAB) azithromycin 500 mg Tablet 500 mg PO DIRECTED PRN (Reason: PRIOR TO DENTAL APPT.) Discontinued aspirin [Orquidea Low Dose Aspirin] 81 mg Tablet,Delayed Release (Dr/Ec) 81 mg PO 3XWK Rx Instructions: TAKE THIS MEDICATION EVERY WEDNESDAY,WEDNESDAY AND WEDNESDAY diclofenac sodium 1 % Gel 2 g TOPICAL Q12H PRN (Reason: Pain) Admission Data Admit Date/Time: 10/28/22 04:03 Attending Provider: Edi Thomas Admit Provider: Luis Brooks Primary Care Provider: Kendall Smith [facility] Other Providers: Luis Brooks ; Ramon Giraldo ; Raul Jaramillo ; Jericho Del Real ; Chelle Hartman ; Jorge Schmidt ; Jennifer Rouse ; Liseth Parks ; Charlie Vallejo ; Tia Day ; Cynthia Guan ; James Robbins ; Reagan Pantoja ; Kendall Smith [facility]
== END 2022-11-02 17:54 | disposition home or self-care (01) | DRG 813 ==
LOC: ED 22:58 → EDINP 10-28 04:03 → 2E 10-28 06:00

== ENCOUNTER 2023-11-11 11:23 | Inpatient (IN) ==
--- NOTE | 2023-11-11 12:02 | Emergency Department Note ---
Impression & Plan Pulmonary edema, Hypoxia, Anemia ED Provider Note NAME: MARCO ANTONIO BRUNNER AGE: 88 SEX: F : 1935 ARRIVES VIA: Ambulance INFORMANT: Patient, EMS ED PROVIDER(S): Mich Luis DO CHIEF COMPLAINT: Difficulty breathing HPI: The patient is an 88-year-old female who has a history of breathing problems as well as underlying dementia who presented to the emergency department for an evaluation of difficulty breathing. The patient offers no complaints but states that she was sent to the emergency department by the [place] [facility] staff. The patient reportedly had an oxygen saturation of 70% prior to arrival. She was placed on 2 L nasal cannula and appears to be significantly improved. ROS: See above HPI for pertinent positives & negatives. A total of 10 systems reviewed and were otherwise negative. PAST MEDICAL HISTORY: See Below PAST SURGICAL HISTORY: See Below FAMILY HISTORY: See Below SOCIAL HISTORY: See Below HOME MEDICATIONS: See Below ALLERGIES: See Below VITALS: See Below PHYSICAL EXAMINATION: GENERAL: The patient is awake and alert. She does not appear to be uncomfortable. EYES: The conjunctivae are clear. The pupils are round and reactive. EARS, NOSE, MOUTH AND THROAT: The nose is without any evidence of any deformity. Mucous membranes are moist. Tongue is midline. NECK: The neck is nontender and supple. RESPIRATORY: Diminished breath sounds are noted throughout. There were rales in all lung gonzales. CARDIOVASCULAR: Regular rate and rhythm noted there no murmurs rubs or gallops normal S1 normal S2. GASTROINTESTINAL: The abdomen is soft. Abdomen is nontender. MUSCULOSKELETAL/EXTREMITIES: There is no evidence of gross deformity full range of motion is noted in the hips and shoulders. SKIN: There is no obvious evidence of any rash. There are no petechiae, pallor or cyanosis noted. NEUROLOGIC: Patient is awake and oriented to person place but not time or situation. Strength was symmetric but diminished MEDICAL DECISION MAKING: The patient is an 88-year-old female who presented to the emergency department for an evaluation of difficulty breathing. The patient was noticing difficulty breathing and was sent to the emergency department for oxygen saturation it was noted in the 70s. I discussed the patient's laboratory and radiographic studies with her. Given her findings she was treated with IV Lasix and I discussed her condition with the on-call [facility] hospitalist group. They have agreed to evaluate the patient in the emergency department for further management and disposition. Triage Nursing notes reviewed. Prior medical records reviewed Vital Signs: reviewed and remarkable for no significant abnormalities Differential diagnosis: Reactive airway disease, pneumonia, pneumothorax, COPD, CHF, infections, cardiac ischemia, pulmonary embolism, musculoskeletal, gastrointestinal, as well as other pathologies. ER treatment provided: See below Diagnostics interpreted by me: ECG: EKG was obtained in the emergency department. My interpretation is normal sinus rhythm at 86 bpm. There is no ectopy. There is no acute ST segment abnormalities noted. This was compared to a tracing from October 08, 2022. No changes were noted. Cardiac Monitoring: An order was placed for continuous cardiac monitoring. The monitor shows a rate of 78 bpm with sinus rhythm. Laboratory studies: As stated above and show below. Imaging studies: See below. Radiographic imaging was reviewed by myself Consultation(s): I discussed this case with Monica who is on-call for the [facility] hospitalist group. Past Med/Surg History Medical History Gross hematuria CKD (chronic kidney disease) stage 4, GFR 15-29 ml/min History of MRSA infection History of COVID-19 History of traumatic subdural hematoma Symptomatic anemia Recurrent UTI Acute on chronic anemia Candiduria Cystitis Admitted to intensive care unit Sepsis Left knee DJD Closed left hip fracture s/p repair UTI (urinary tract infection) Atrial fibrillation with RVR Volume depletion CRISPIN (acute kidney injury) Sepsis Gram-negative bacteremia Paroxysmal A-fib DVT prophylaxis T2DM (type 2 diabetes mellitus) HTN (hypertension) HLD (hyperlipidemia) Hypothyroidism Surgical History History of hysterectomy History of cholecystectomy History of breast biopsy Family History Mother Breast cancer Hypertension Father , at 92 No problems noted. Social History Smoking Status: Never smoker Second Hand Exposure: No; Do You Dip or Chew Tobacco: No; Hx Alcohol Use: Yes Alcohol type: wine Hx Substance Use: No Preferred Language: Belarusian Communication Ability: Effective Flat Machine Cutter Required: No Beliefs That Will Affect Care: Nondenominational Nondenominational Beliefs: Mu-Ism marital status: / Current Living Situation: [facility] Current Living Situation Comment: [facility] How many Children do You have: 1 other: ambulates with cane Feels Safe at Home: Yes Assistive Devices: Wheelchair Allergies Allergies Allergy/AdvReac Type Severity Reaction Status Date / Time amoxicillin Allergy Intermediate Unknown Verified 08/18/23 14:25 sulfamethoxazole Allergy Intermediate Rash Verified 08/18/23 14:25 tetanus toxoid, adsorbed Allergy Intermediate HIVES Verified 08/18/23 14:25 tetracycline Allergy Intermediate hives Verified 08/18/23 14:25 trimethoprim Allergy Intermediate Rash Verified 08/18/23 14:25 rosuvastatin AdvReac Intermediate Muscle Verified 08/18/23 14:25 stiffness Home Meds Home Medications Medication Instructions Recorded Confirmed docusate sodium 100 mg capsule 100 mg PO HS 06/25/20 11/11/23 (Col-Rite) glipizide 5 mg tablet 10 mg PO QAM 06/25/20 11/11/23 cholecalciferol (vitamin D3) 25 50 mcg PO QAM 11/09/20 11/11/23 mcg (1,000 unit) tablet (Vitamin D3) vit C 250 mg-vit E 90 mg-zinc 40 1 tab PO BID 11/09/20 11/11/23 mg-copper 1 pg-tnhzdf-sawzwn capsule (PreserVision AREDS-2) Saccharomyces boulardii 250 mg 250 mg PO DAILY 03/15/22 11/11/23 capsule acetaminophen 500 mg tablet 1,000 mg PO Q8H PRN FEVER 03/15/22 11/11/23 (Tylenol Extra Strength) >100.5/MODERATE PAIN amiodarone 200 mg tablet 200 mg PO QAM 03/15/22 11/11/23 ferrous sulfate 325 mg (65 mg 325 mg PO QAM 03/15/22 11/11/23 iron) tablet ketoconazole 2 % shampoo 1 ea topical 3XWK 03/15/22 11/11/23 cyanocobalamin (vitamin B-12) 1,000 mcg sublingual DAILY 10/27/22 11/11/23 1,000 mcg sublingual tablet mupirocin 2 % topical ointment 1 applic topical HS 10/27/22 11/11/23 diclofenac sodium 1 % topical gel 1 ea topical Q12 PRN joint pain 02/08/23 11/11/23 warfarin 1 mg tablet 1.5 mg PO .ON HOLD 02/08/23 11/11/23 warfarin 1 mg tablet 2 mg PO .ON HOLD 02/08/23 11/11/23 aspirin 81 mg chewable tablet 81 mg PO 3XWK 11/11/23 11/11/23 (Aspirin Childrens) levothyroxine 112 mcg tablet 112 mcg PO DAILYBB 11/11/23 11/11/23 loperamide 2 mg tablet 2 mg PO Q8 PRN Diarrhea 11/11/23 11/11/23 loratadine 10 mg tablet 10 mg PO Q OTHER DAY 11/11/23 11/11/23 melatonin 3 mg capsule 3 mg PO HS 11/11/23 11/11/23 menthol 0.44 %-zinc oxide 20.6 % 1 applic topical QS 11/11/23 11/11/23 topical ointment (Calmoseptine) metoprolol tartrate 25 mg tablet 12.5 mg PO BID 11/11/23 11/11/23 metronidazole 0.75 % topical cream 1 applic topical BID 11/11/23 11/11/23 omeprazole 20 mg capsule,delayed 20 mg PO QAM 11/11/23 11/11/23 release peg 400-propylene glycol (PF) 0.4 1 drp OPB .Q 2HRS WHILE AWAKE 11/11/23 11/11/23 %-0.3 % eye drops in a dropperette (Systane (PF)) psyllium 1 ea PO DAILY 11/11/23 11/11/23 rosuvastatin 10 mg tablet 10 mg PO HS 11/11/23 11/11/23 sertraline 25 mg tablet 25 mg PO QAM 11/11/23 11/11/23 tobramycin-dexamethasone 0.3 %-0.1 1 applic OPB HS 11/11/23 11/11/23 % eye ointment (TobraDex) Previous Rx's Medication Instructions Recorded vibegron 75 mg tablet (Gemtesa) 75 mg PO DAILY #90 tabs 09/28/23 Results & Data (ED) Vital Signs Vital Signs - 24 hr 11/11/23 11:32 11/11/23 11:32 11/11/23 11:35 Pulse Rate 77 Pulse Rate from SpO2 Sensor Respiratory Rate 22 Respiratory Effort / Characteristics Non-Labored Respiratory Pattern Regular Blood Pressure 124/86 Blood Pressure Mean 98 Pulse Oximetry 86 L 94 Oxygen Delivery Method Nasal Cannula Room Air Nasal Cannula Nasal Cannula Oxygen Flow Rate 2 2 Sepsis Recent Fever Within 48 Hours No Sepsis New/Unexplained Change in Mental Status No Sepsis Action Taken by Nursing No Action Required Oxygen Flow Rate - Titration 2 Pulse Oximetry Post Tiitration 94 11/11/23 11:38 11/11/23 11:40 11/11/23 11:40 Pulse Rate 83 59 L 79 Pulse Rate from SpO2 Sensor 83 79 Respiratory Rate 21 22 Respiratory Effort / Characteristics Respiratory Pattern Blood Pressure Blood Pressure Mean Pulse Oximetry 95 95 Oxygen Delivery Method Oxygen Flow Rate Sepsis Recent Fever Within 48 Hours Sepsis New/Unexplained Change in Mental Status Sepsis Action Taken by Nursing Oxygen Flow Rate - Titration Pulse Oximetry Post Tiitration 11/11/23 11:43 11/11/23 11:50 11/11/23 12:00 Pulse Rate 83 80 77 Pulse Rate from SpO2 Sensor 80 77 Respiratory Rate 19 22 Respiratory Effort / Characteristics Respiratory Pattern Blood Pressure Blood Pressure Mean Pulse Oximetry 95 94 Oxygen Delivery Method Oxygen Flow Rate Sepsis Recent Fever Within 48 Hours Sepsis New/Unexplained Change in Mental Status Sepsis Action Taken by Nursing Oxygen Flow Rate - Titration Pulse Oximetry Post Tiitration 11/11/23 12:10 11/11/23 12:20 11/11/23 12:30 Pulse Rate 81 75 79 Pulse Rate from SpO2 Sensor 79 76 80 Respiratory Rate 23 23 30 H Respiratory Effort / Characteristics Respiratory Pattern Blood Pressure Blood Pressure Mean Pulse Oximetry 91 92 93 Oxygen Delivery Method Oxygen Flow Rate Sepsis Recent Fever Within 48 Hours Sepsis New/Unexplained Change in Mental Status Sepsis Action Taken by Nursing Oxygen Flow Rate - Titration Pulse Oximetry Post Tiitration 11/11/23 12:40 11/11/23 12:50 11/11/23 13:00 Pulse Rate 77 77 74 Pulse Rate from SpO2 Sensor 75 75 73 Respiratory Rate 23 19 19 Respiratory Effort / Characteristics Respiratory Pattern Blood Pressure Blood Pressure Mean Pulse Oximetry 93 93 94 Oxygen Delivery Method Oxygen Flow Rate Sepsis Recent Fever Within 48 Hours Sepsis New/Unexplained Change in Mental Status Sepsis Action Taken by Nursing Oxygen Flow Rate - Titration Pulse Oximetry Post Tiitration 11/11/23 13:10 11/11/23 13:20 11/11/23 13:30 Pulse Rate 74 74 77 Pulse Rate from SpO2 Sensor 75 73 77 Respiratory Rate 25 H 19 22 Respiratory Effort / Characteristics Respiratory Pattern Blood Pressure Blood Pressure Mean Pulse Oximetry 94 95 94 Oxygen Delivery Method Oxygen Flow Rate Sepsis Recent Fever Within 48 Hours Sepsis New/Unexplained Change in Mental Status Sepsis Action Taken by Nursing Oxygen Flow Rate - Titration Pulse Oximetry Post Tiitration 11/11/23 13:36 11/11/23 13:36 11/11/23 13:40 Pulse Rate 77 79 Pulse Rate from SpO2 Sensor 76 78 Respiratory Rate 20 19 Respiratory Effort / Characteristics Respiratory Pattern Blood Pressure 130/68 Blood Pressure Mean 93 Pulse Oximetry 95 94 Oxygen Delivery Method Oxygen Flow Rate Sepsis Recent Fever Within 48 Hours Sepsis New/Unexplained Change in Mental Status Sepsis Action Taken by Nursing Oxygen Flow Rate - Titration Pulse Oximetry Post Tiitration 11/11/23 13:50 11/11/23 14:00 11/11/23 14:00 Pulse Rate 75 82 Pulse Rate from SpO2 Sensor 75 81 Respiratory Rate 19 20 Respiratory Effort / Characteristics Respiratory Pattern Blood Pressure 130/77 Blood Pressure Mean 100 Pulse Oximetry 94 94 Oxygen Delivery Method Oxygen Flow Rate Sepsis Recent Fever Within 48 Hours Sepsis New/Unexplained Change in Mental Status Sepsis Action Taken by Nursing Oxygen Flow Rate - Titration Pulse Oximetry Post Tiitration 11/11/23 14:10 11/11/23 14:20 11/11/23 14:30 Pulse Rate 75 79 79 Pulse Rate from SpO2 Sensor 77 79 78 Respiratory Rate 24 20 21 Respiratory Effort / Characteristics Respiratory Pattern Blood Pressure Blood Pressure Mean Pulse Oximetry 93 91 92 Oxygen Delivery Method Oxygen Flow Rate Sepsis Recent Fever Within 48 Hours Sepsis New/Unexplained Change in Mental Status Sepsis Action Taken by Nursing Oxygen Flow Rate - Titration Pulse Oximetry Post Tiitration 11/11/23 14:40 Pulse Rate 83 Pulse Rate from SpO2 Sensor 79 Respiratory Rate 22 Respiratory Effort / Characteristics Respiratory Pattern Blood Pressure Blood Pressure Mean Pulse Oximetry 93 Oxygen Delivery Method Oxygen Flow Rate Sepsis Recent Fever Within 48 Hours Sepsis New/Unexplained Change in Mental Status Sepsis Action Taken by Nursing Oxygen Flow Rate - Titration Pulse Oximetry Post Tiitration Home Medications Current Medication List: was personally reviewed by me Laboratory Data Attestation: I reviewed the patient's lab results. 11/11/23 12:10 11/11/23 12:10 Lab Results 11/11/23 11/11/23 Range/Units 12:10 12:15 WBC 6.35 (4.8-10.8) K/ul RBC 3.37 L (4.20-5.40) M/uL Hgb 8.5 L (12.0-16.0) g/dl Hct 29.0 L (37.0-47.0) % MCV 86.1 (80.0-100.0) fL MCH 25.2 (25.0-34.0) pg MCHC 29.3 L (32.0-36.0) g/dL RDW Std Deviation 58.4 H (36.4-46.3) fL RDW Coeff of Hope 19.0 H (11.5-14.5) % Plt Count 113 L (130-400) K/uL MPV 10.5 (9.4-12.4) fL Immature Gran % (Auto) 0.5 % Neut % (Auto) 68.1 % Lymph % (Auto) 22.2 % [place] % (Auto) 8.2 % Eos % (Auto) 0.5 % Baso % (Auto) 0.5 % Neut # (Auto) 4.33 (1.40-6.50) K/uL Lymph # (Auto) 1.41 (1.20-3.40) K/uL [place] # (Auto) 0.52 (0.11-0.59) K/uL Eos # (Auto) 0.03 (0.00-0.50) K/uL Baso # (Auto) 0.03 (0.00-0.20) K/uL Immature Gran # (Auto) 0.03 (0.01-0.20) K/uL Absolute Nucleated RBC 0.02 (0.00-0.12) K/uL Nucleated RBC % (auto) 0.3 % PT 57.0 H (9.0-12.0) Seconds INR 5.8 H* (0.9-1.1) APTT 44 H (21-31) Seconds PTT Ratio 1.6 VBG pH 7.39 (7.36-7.41) VBG pCO2 42 (38-50) mmHg VBG pO2 56 mmHg VBG HCO3 25 mmol/L VBG O2 Saturation 85.9 % VBG Base Excess 0.3 mEq/L Sodium 142 (136-145) mmol/L Potassium 4.0 (3.5-5.1) mmol/L Chloride 109 H (98-107) mmol/L Carbon Dioxide 26 (21-32) mmol/L Anion Gap 7 (3-11) BUN 29 H (6-23) mg/dl Creatinine 1.12 (0.6-1.2) mg/dl Est Cr Clr Drug Dosing 29.4 ml/min Est GFR ( Amer) 50.4 ml/min Est GFR (Non-Af Amer) 43.5 ml/min BUN/Creatinine Ratio 25.9 H (10-20) Glucose 120 H (70-99(Fasting)) mg/dl Calcium 8.3 L (8.6-10.3) mg/dl Magnesium 1.9 (1.7-2.4) mg/dl Total Bilirubin 1.2 H (0.2-1.0) mg/dl AST 39 (13-39) U/L ALT 19 (7-52) U/L Alkaline Phosphatase 92 (34-104) U/L Troponin I High Sens 11.1 (0-14) pg/ml B-Natriuretic Peptide 670 H (0-100) pg/ml Total Protein 5.3 L (6.0-8.3) gm/dl Albumin 3.1 L (3.4-5.0) gm/dl Globulin 2.2 L (2.5-4.0) gm/dl Albumin/Globulin Ratio 1.4 (0.9-2) Adenovirus (PCR) Not Detected (NotDetected) B. pertussis DNA (PCR) Not Detected (NotDetected) B.parapertussis DNA PCR Not Detected (NotDetected) C. pneumoniae DNA (PCR) Not Detected (NotDetected) Coronavirus OC43 (PCR) Not Detected (NotDetected) Coronavirus HKU1 (PCR) Not Detected (NotDetected) Coronavirus 229E (PCR) Not Detected (NotDetected) SARS-CoV-2 (PCR) Not Detected (NotDetected) Coronavirus NL63 (PCR) Not Detected (NotDetected) Human Metapneumovir PCR Not Detected (NotDetected) Influenza Type A (PCR) Not Detected (NotDetected) Influenza Type B (PCR) Not Detected (NotDetected) M. pneumoniae (PCR) Not Detected (NotDetected) Parainfluenza 1 (PCR) Not Detected (NotDetected) Parainfluenza 2 (PCR) Not Detected (NotDetected) Parainfluenza 3 (PCR) Not Detected (NotDetected) Parainfluenza 4 (PCR) Not Detected (NotDetected) RSV (PCR) Not Detected (NotDetected) Entero/Rhino (PCR) Not Detected (NotDetected) Administered Medications Discontinued Medications Furosemide (Furosemide 40 Mg/4 Ml Vial) 40 mg IV ONE ONE Stop: 11/11/23 14:13 Last Admin: 11/11/23 14:37 Dose: 40 mg Documented By: BARRETT Ceftriaxone Sodium 1,000 mg/ (Dextrose) 50 mls @ 100 mls/hr IV NOW ONE; Protocol Stop: 11/11/23 16:29 Last Admin: 11/11/23 17:06 Dose: 100 mls/hr Documented By: HENRRY Imaging Data Attestation: I personally reviewed and interpreted this imaging study as follows: My Impression: 1 view chest x-ray was obtained in the emergency department. My interpretation is pulmonary edema. Final report below. Radiologist's Impression: Chest X-Ray 11/11/23 11:51 XR chest 1V portable CLINICAL HISTORY: Dyspnea. COMPARISON STUDY: Chest radiograph August 24, 2022. Chest CT December 25, 2019. FINDINGS: Low lung volumes are unchanged. Pulmonary vascular congestion is noted with suspected mild interstitial pulmonary edema. There is no pneumothorax. No definite pleural effusion. There are suspected bibasilar opacities. Cardiomediastinal silhouette is stable. IMPRESSION: 1. Pulmonary vascular congestion with suspected mild pulmonary edema. 2. Bibasilar opacities which favor atelectasis although an infectious process could appear similar. ACT 112: Negative or not required by law. Electronically signed by: Chad Mustafa M.D. 11/11/2023 12:46 PM Discharge Plan Visit Data Chief Complaint: Shortness of Breath/Dyspnea Stated Complaint: HYPOXIA ED Provider: Mich Luis Discharge Problem: Pulmonary edema, Hypoxia, Anemia Patient Disposition: Admitted As Inpatient Discharge Instructions Interventions: ED Discharge Assessment Last Done: 11/11/23 16:01 Discharge Problem: Pulmonary edema Qualifiers: Chronicity: acute Qualified Code(s): J81.0 - Acute pulmonary edema Anemia Qualifiers: Anemia type: unspecified type Qualified Code(s): D64.9 - Anemia, unspecified
[2023-11-11 12:43] LABS: Basophils # (auto) 0.03 K/uL (0.00-0.20); Basophils % (auto) 0.5 %; Eosinophils # (auto) 0.03 K/uL (0.00-0.50); Eosinophils % (auto) 0.5 %; Hemoglobin 8.5 g/dl (12.0-16.0); Immature Granulocytes # (auto) 0.03 K/uL (0.01-0.20); Immature Granulocytes % (auto) 0.5 %; Lymphocytes # (auto) 1.41 K/uL (1.20-3.40); Lymphocytes % (auto) 22.2 %; Mean Corpuscular Hemoglobin 25.2 pg (25.0-34.0); Mean Corpuscular Hgb Conc 29.3 g/dL (32.0-36.0); Mean Corpuscular Volume 86.1 fL (80.0-100.0); Mean Platelet Volume 10.5 fL (9.4-12.4); Monocytes # (auto) 0.52 K/uL (0.11-0.59); Monocytes % (auto) 8.2 %; Neutrophils # (auto) 4.33 K/uL (1.40-6.50); Neutrophils % (auto) 68.1 %; Nucleated RBC # (auto) 0.02 K/uL (0.00-0.12); Nucleated RBC % (auto) 0.3 %; Platelet Count 113 K/uL (130-400); RDW Standard Deviation 58.4 fL (36.4-46.3); Red Blood Count 3.37 M/uL (4.20-5.40); White Blood Count 6.35 K/ul (4.8-10.8)
[2023-11-11 12:48] LABS: Base Excess VBG 0.3 mEq/L; HCO3 VBG 25 mmol/L; Oxygen Saturation VBG 85.9 %; PCO2 VBG 42 mmHg (38-50); PO2 VBG 56 mmHg; pH VBG 7.39 (7.36-7.41)
--- NOTE | 2023-11-11 12:48 | XRay Report ---
XR chest 1V portable CLINICAL HISTORY: Dyspnea. COMPARISON STUDY: Chest radiograph August 24, 2022. Chest CT December 25, 2019. FINDINGS: Low lung volumes are unchanged. Pulmonary vascular congestion is noted with suspected mild interstitial pulmonary edema. There is no pneumothorax. No definite pleural effusion. There are suspe cted bibasilar opacities. Cardiomediastinal silhouette is stable. IMPRESSION: 1. Pulmonary vascular congestion with suspected mild pulmonary edema. 2. Bibasilar opacities which favor atelectasis although an infectious process could appear similar. ACT 112: Negative or not required by law. Electronically signed by: Chad Mustafa M.D. 11/11/2023 12:46 PM
[2023-11-11 13:00] LABS: Albumin Globulin Ratio 1.4 (0.9-2); Albumin Level 3.1 gm/dl (3.4-5.0); BUN Creatinine Ratio 25.9 (10-20); Bilirubin,Total 1.2 mg/dl (0.2-1.0); Calcium 8.3 mg/dl (8.6-10.3); Creatinine Clr Calc Pharmacy 29.4 ml/min; Est GFR (African American) 50.4 ml/min; Est GFR (Non-African American) 43.5 ml/min; Globulin 2.2 gm/dl (2.5-4.0); Magnesium 1.9 mg/dl (1.7-2.4); Total Protein 5.3 gm/dl (6.0-8.3)
--- NOTE | 2023-11-11 13:03 | Electrocardiogram Report ---
Test Reason : Blood Pressure : / mmHG Vent. Rate : 086 BPM Atrial Rate : 086 BPM P-R Int : 150 ms QRS Dur : 098 ms QT Int : 364 ms P-R-T Axes : -03 -49 055 degrees QTc Int : 435 ms Normal sinus rhythm Left axis deviation Abnormal ECG When compared with ECG of 08-OCT-2022 09:07, Incomplete right bundle branch block is no longer Present Confirmed by Jericho Hartley ([id number]) on 11/11/2023 1:03:20 PM Referred By: Confirmed By:Daniel Hartley
[2023-11-11 13:05] LABS: Troponin I High Sensitivity 11.1 pg/ml (0-14)
[2023-11-11 13:08] LABS: Partial Thromboplastin Ratio 1.6; Partial Thromboplastin Time 44 Seconds (21-31)
[2023-11-11 13:41] LABS: Adenovirus PCR Not Detected (NotDetected); Bordetella parapertussis PCR Not Detected (NotDetected); Bordetella pertussis PCR Not Detected (NotDetected); Chlamydia pneumoniae PCR Not Detected (NotDetected); Coronavirus 229E PCR Not Detected (NotDetected); Coronavirus CoV-2 (COVID19)PCR Not Detected (NotDetected); Coronavirus HKU1 PCR Not Detected (NotDetected); Coronavirus NL63 PCR Not Detected (NotDetected); Coronavirus OC43PCR Not Detected (NotDetected); Human Metapneumovirus PCR Not Detected (NotDetected); Influenza A PCR Not Detected (NotDetected); Influenza B PCR Not Detected (NotDetected); Mycoplasma pneumoniae PCR Not Detected (NotDetected); Parainfluenza Virus 1 PCR Not Detected (NotDetected); Parainfluenza Virus 2 PCR Not Detected (NotDetected); Parainfluenza Virus 3 PCR Not Detected (NotDetected); Parainfluenza Virus 4 PCR Not Detected (NotDetected); Respiratory Syncytial VirusPCR Not Detected (NotDetected); Rhinovirus/Enterovirus PCR Not Detected (NotDetected)
[2023-11-11 14:14] LABS: INR 5.8 (0.9-1.1)
--- NOTE | 2023-11-11 14:26 | History & Physical Report ---
Date of Service November 11, 2023 Assessment & Plan (1) Acute on chronic heart failure with preserved ejection fraction (HFpEF): (2) Supratherapeutic INR: (3) Atrial fibrillation, controlled: (4) HTN (hypertension): (5) HLD (hyperlipidemia): (6) CKD (chronic kidney disease): (7) T2DM (type 2 diabetes mellitus): (8) Hypothyroidism: Plan: Acute on chronic HFpEF Atrial Fibrillation Supratherapeutic INR HTN HLD - Admit to tele - Last echo reviewed in outpatient showing EF of 60-65% from 2 years ago, repeat here - Trop negative - BNP of 670 on admission, was given lasix 40 mg IV in ER, she has crackles on bilateral lungs, but MM are clinically dry and she has no edema currently - daughter mentions that she had some earlier today. Pt is lying flat, no obvious shortness of breath. Lasix naive at baseline, hold further diuresis - CXR shows pulmonary vascular congestion, bibasilar opacities - Afebrile, no WBC - Continue antihypertensive medications - INR 5.8, hold Coumadin, trend daily - no obvious sources of bleeding currently, plt ok. - Consider cardiology consult -RVP is negative - Rate controlled on amiodarone, cont baby aspirin, metoprolol tartrate 12.5 mg BID, statin therapy Acute Encephalopathy -Daughter at bedside reports the patient has increased issues with word finding, mentation whenever she has infection such as UTI -Worse within the past 1 to 2 days - Obtain blood cultures x 2 -Will place on IV ceftriaxone prophylactically, can DC if UA is negative or titrate for PO antibiotics Hx of UTI - Will obtain UA and UCx with recurrent uti frequency, appears previously grew out e. coli - Start Ceftriaxone as above DM type II -Last A1c 6.6 on 09/06/2023 -ISS with Accu-Cheks ACHS - HH/DM diet allowed CKD -Stable, stg 3, creatinine is down 1.2, appears to be baseline 1.5-1.6 Hypothyroidism -Chronic, stable, cont levothyroxine DVT ppx: teds, scds Lines: 2 PIV CODE: DNR/DNI FEN/GI: HH/DM diet Dispo: From home, likely to remain in the hospital x 1-2 days A total of 80 minutes were spent with greater than 50% of that time face to face with the patient, personally reviewing all current laboratories, imaging studies, past medication reconciliation, outpatient chart review, and discussion with specialists to collaborate care for the patient with attending. Please see attending documentation for corrections and/or additions. History of Present Illness Chief Complaint: Shortness of breath Primary Care Provider: Sarah Argueta at [place] This is an 87 yo F with PMHx of type 2 diabetes, hypothyroidism, hyperlipidemia, paroxysmal atrial fibrillation, hypertension, chronic kidney disease stage IV, anemia due to chronic kidney disease, history of MRSA infection, history of depression, history of traumatic subdural hematoma, history of COVID, history of ambulatory dysfunction from [facility] who presents to the hospital with acute onset of shortness of breath where she was reportedly having O2 sats in the 70s. She has been placed on supplemental O2 here 2 L and sats at 94% now. Patient notes that she has had issues with coughing up sputum, states that she has had intermittent nausea, occurring more than once per day. She denies any previous issues with aspiration. Daughter at bedside supports the history due to her slightly altered mental status, daughter notes that they had speech therapy scheduled to see her at [facility] however has not occurred yet. Whenever she has previous UTIs she has some mental fog with difficulty word finding, slowed speech. She reports that her mouth is significantly dry, and is requesting a drink. She tolerates thin liquids without any difficulty at bedside. There is concern on CXR for pulmonary vascular congestion and elevated BNP suggestive of CHF exacerbation, she was administered Lasix in the ER. Also noted that patient's INR is 5.8 on admission. Velásquez catheter has been requested to be inserted, has history of difficult insertion in the past, nursing has not yet obtained UA or urine culture. Obtain blood culture and start prophylactic ceftriaxone IV. Allergies Allergy/AdvReac Type Severity Reaction Status Date / Time amoxicillin Allergy Intermediate Unknown Verified 08/18/23 14:25 sulfamethoxazole Allergy Intermediate Rash Verified 08/18/23 14:25 tetanus toxoid, adsorbed Allergy Intermediate HIVES Verified 08/18/23 14:25 tetracycline Allergy Intermediate hives Verified 08/18/23 14:25 trimethoprim Allergy Intermediate Rash Verified 08/18/23 14:25 rosuvastatin AdvReac Intermediate Muscle Verified 08/18/23 14:25 stiffness Home Medications Medication Instructions Recorded Confirmed Type docusate sodium 100 mg capsule 100 mg PO HS 06/25/20 11/11/23 History (Col-Rite) glipizide 5 mg tablet 10 mg PO QAM 06/25/20 11/11/23 History cholecalciferol (vitamin D3) 25 50 mcg PO QAM 11/09/20 11/11/23 History mcg (1,000 unit) tablet (Vitamin D3) vit C 250 mg-vit E 90 mg-zinc 40 1 tab PO BID 11/09/20 11/11/23 History mg-copper 1 [id number] capsule (PreserVision AREDS-2) Saccharomyces boulardii 250 mg 250 mg PO DAILY 03/15/22 11/11/23 History capsule acetaminophen 500 mg tablet 1,000 mg PO Q8H PRN FEVER 03/15/22 11/11/23 History (Tylenol Extra Strength) >100.5/MODERATE PAIN amiodarone 200 mg tablet 200 mg PO QAM 03/15/22 11/11/23 History ferrous sulfate 325 mg (65 mg 325 mg PO QAM 03/15/22 11/11/23 History iron) tablet ketoconazole 2 % shampoo 1 ea topical 3XWK 03/15/22 11/11/23 History cyanocobalamin (vitamin B-12) 1,000 mcg sublingual DAILY 10/27/22 11/11/23 History 1,000 mcg sublingual tablet mupirocin 2 % topical ointment 1 applic topical HS 10/27/22 11/11/23 History diclofenac sodium 1 % topical gel 1 ea topical Q12 PRN joint pain 02/08/23 11/11/23 History warfarin 1 mg tablet 1.5 mg PO .ON HOLD 02/08/23 11/11/23 History warfarin 1 mg tablet 2 mg PO .ON HOLD 02/08/23 11/11/23 History vibegron 75 mg tablet (Gemtesa) 75 mg PO DAILY #90 tabs 09/28/23 11/11/23 Rx aspirin 81 mg chewable tablet 81 mg PO 3XWK 11/11/23 11/11/23 History (Aspirin Childrens) levothyroxine 112 mcg tablet 112 mcg PO DAILYBB 11/11/23 11/11/23 History loperamide 2 mg tablet 2 mg PO Q8 PRN Diarrhea 11/11/23 11/11/23 History loratadine 10 mg tablet 10 mg PO Q OTHER DAY 11/11/23 11/11/23 History melatonin 3 mg capsule 3 mg PO HS 11/11/23 11/11/23 History menthol 0.44 %-zinc oxide 20.6 % 1 applic topical QS 11/11/23 11/11/23 History topical ointment (Calmoseptine) metoprolol tartrate 25 mg tablet 12.5 mg PO BID 11/11/23 11/11/23 History metronidazole 0.75 % topical cream 1 applic topical BID 11/11/23 11/11/23 History omeprazole 20 mg capsule,delayed 20 mg PO QAM 11/11/23 11/11/23 History release peg 400-propylene glycol (PF) 0.4 1 drp OPB .Q 2HRS WHILE AWAKE 11/11/23 11/11/23 History %-0.3 % eye drops in a dropperette (Systane (PF)) psyllium 1 ea PO DAILY 11/11/23 11/11/23 History rosuvastatin 10 mg tablet 10 mg PO HS 11/11/23 11/11/23 History sertraline 25 mg tablet 25 mg PO QAM 11/11/23 11/11/23 History tobramycin-dexamethasone 0.3 %-0.1 1 applic OPB HS 11/11/23 11/11/23 History % eye ointment (TobraDex) Past Med/Surg History Medical History Gross hematuria CKD (chronic kidney disease) stage 4, GFR 15-29 ml/min History of MRSA infection History of COVID-19 History of traumatic subdural hematoma Symptomatic anemia Recurrent UTI Acute on chronic anemia Candiduria Cystitis Admitted to intensive care unit Sepsis Left knee DJD Closed left hip fracture s/p repair UTI (urinary tract infection) Atrial fibrillation with RVR Volume depletion CRISPIN (acute kidney injury) Sepsis Gram-negative bacteremia Paroxysmal A-fib DVT prophylaxis T2DM (type 2 diabetes mellitus) HTN (hypertension) HLD (hyperlipidemia) Hypothyroidism Surgical History History of hysterectomy History of cholecystectomy History of breast biopsy Family History Mother Breast cancer Hypertension Father , at 92 No problems noted. Social History Smoking Status: Never smoker Second Hand Exposure: No; Do You Dip or Chew Tobacco: No; Hx Alcohol Use: Yes Alcohol type: wine Hx Substance Use: No Preferred Language: Nepalese Communication Ability: Effective Alley Worker Required: No Beliefs That Will Affect Care: Mandaen Mandaen Beliefs: Buddhist marital status: / Current Living Situation: Senior Care Current Living Situation Comment: [facility] How many Children do You have: 1 other: ambulates with cane Feels Safe at Home: Yes Assistive Devices: Wheelchair Review of Systems Review of Systems: Constitutional: No fever, sweats or chills Eyes: No diplopia, no worsening or blurred vision ENT: normal hearing, no trouble swallowing, + dry mouth Respiratory: No cough, sputum, dyspnea at rest or on exertion Cardiovascular: No chest pain, tightness or palpitations Abdomen: No pain, + nausea, + occasional phlegm vomiting, no diarrhea or constipation, no hematemesis Musculoskeletal: + Reports chronic knee joint pain, calf pain, swelling Neurologic: + Generalized weakness, numbness/tingling, or balance problems, primarily wheelchair-bound Psychiatric: No anxiety or depression Skin: No rash or itch Physical Exam Physical Exam: General: awake, alert, no apparent distress, thin elderly white female, BMI of 24.8 Head: Normocephalic, atraumatic ENT: PERRL, EOMI, no pharyngeal exudate, mucous membranes appear very dry Chest: + Crackles heard throughout, on 2L via NC with O2 sats 94%, no wheeze or Rales Cardiac: Regular rate and rhythm, + systolic murmur, no JVD, normal peripheral pulses, good capillary refill, no edema in peripheral extremities Abdominal: NABS x 4 quadrants, soft, nondistended, nontender to palpation, no rebound or guarding : Velásquez catheter inserted, not yet any urine in Velásquez bag Extremities: Normal inspection, no peripheral edema or erythema, calfs nontender to palpation Psych: Normal mood and affect Neuro: AAO x 3, strength intact bilaterally and rated 4/5, no motor deficits, speech is slow but clear, no peripheral sensory deficits Results & Data Results & Data Vital Signs (Past 12 Hours) Vital Signs Pulse Resp BP Pulse Ox O2 Del Method O2 Flow Rate 11/11/23 11:43 83 11/11/23 11:40 59 L 11/11/23 11:35 77 22 124/86 94 Nasal Cannula 2 11/11/23 11:32 86 L Room Air, Nasal Cannula 11/11/23 11:32 Nasal Cannula 2 Laboratory Results 11/11/23 11/11/23 12:15 12:10 WBC 6.35 RBC 3.37 L Hgb 8.5 L Hct 29.0 L MCV 86.1 MCH 25.2 MCHC 29.3 L RDW Std Deviation 58.4 H RDW Coeff of Hope 19.0 H Plt Count 113 L MPV 10.5 Immature Gran % (Auto) 0.5 Neut % (Auto) 68.1 Lymph % (Auto) 22.2 Churchill % (Auto) 8.2 Eos % (Auto) 0.5 Baso % (Auto) 0.5 Neut # (Auto) 4.33 Lymph # (Auto) 1.41 Churchill # (Auto) 0.52 Eos # (Auto) 0.03 Baso # (Auto) 0.03 Immature Gran # (Auto) 0.03 Absolute Nucleated RBC 0.02 Nucleated RBC % (auto) 0.3 PT 57.0 H INR 5.8 H* APTT 44 H PTT Ratio 1.6 VBG pH 7.39 VBG pCO2 42 VBG pO2 56 VBG HCO3 25 VBG O2 Saturation 85.9 VBG Base Excess 0.3 Sodium 142 Potassium 4.0 Chloride 109 H Carbon Dioxide 26 Anion Gap 7 BUN 29 H Creatinine 1.12 Est Cr Clr Drug Dosing 29.4 Est GFR ( Amer) 50.4 Est GFR (Non-Af Amer) 43.5 BUN/Creatinine Ratio 25.9 H Glucose 120 H Calcium 8.3 L Magnesium 1.9 Total Bilirubin 1.2 H AST 39 ALT 19 Alkaline Phosphatase 92 Troponin I High Sens 11.1 B-Natriuretic Peptide 670 H Total Protein 5.3 L Albumin 3.1 L Globulin 2.2 L Albumin/Globulin Ratio 1.4 Adenovirus (PCR) Not Detected B. pertussis DNA (PCR) Not Detected B.parapertussis DNA PCR Not Detected C. pneumoniae DNA (PCR) Not Detected Coronavirus OC43 (PCR) Not Detected Coronavirus HKU1 (PCR) Not Detected Coronavirus 229E (PCR) Not Detected SARS-CoV-2 (PCR) Not Detected Coronavirus NL63 (PCR) Not Detected Human Metapneumovir PCR Not Detected Influenza Type A (PCR) Not Detected Influenza Type B (PCR) Not Detected M. pneumoniae (PCR) Not Detected Parainfluenza 1 (PCR) Not Detected Parainfluenza 2 (PCR) Not Detected Parainfluenza 3 (PCR) Not Detected Parainfluenza 4 (PCR) Not Detected RSV (PCR) Not Detected Entero/Rhino (PCR) Not Detected Diagnostic Findings Chest X-Ray 11/11/23 11:51 XR chest 1V portable CLINICAL HISTORY: Dyspnea. COMPARISON STUDY: Chest radiograph August 24, 2022. Chest CT December 25, 2019. FINDINGS: Low lung volumes are unchanged. Pulmonary vascular congestion is noted with suspected mild interstitial pulmonary edema. There is no pneumothorax. No definite pleural effusion. There are suspected bibasilar opacities. Cardiomediastinal silhouette is stable. IMPRESSION: 1. Pulmonary vascular congestion with suspected mild pulmonary edema. 2. Bibasilar opacities which favor atelectasis although an infectious process could appear similar. ACT 112: Negative or not required by law. Electronically signed by: Chad Mustafa M.D. 11/11/2023 12:46 PM ECG Additional Comments: NSR, left axis deviation -No signs of ST wave inversions, changes or acute ischemia Code Status & VTE Plan Code Status DNR/DNI-discussed with the patient and her daughter at bedside Supervising Physician Co-Signing Physician Notes I have seen and discussed the case with the collaborating LUIS EDUARDO. I agree with the above H&P. I have reviewed and confirmed the patients medical history, the findings on physical examination, and the patients diagnosis and treatment plan with Priscilla HOFF and agree with the information documented. In short, Ms. Cardenas is an 88 year old woman with past history of a fib, HTN, HFpEF, recurrent uti on suppressive therapy admitted for concerns of encephalopathy and acute on chronic HFpEF and acute hypoxic respiratory failure. Patient reports BLE edema over course of last week, and daughter notes that confusion started in last 24 hours and c/w prior infections. Labs notable for normal WBC, stable anemia, plt 113, INR 5.8, BNP 670. s/p IV lasix 40. CXR with vascular congestion, edema. GENERAL APPEARANCE: AxOx3, generally well-appearing, however, frail woman, no acute distress. pleasant and conversation [near baseline on exam] HEENT: NC, AT. dry mucous membranes NECK: Supple without lymphadenopathy. No stiffness or restricted ROM. HEART: MAXWELL+ RRR, no edema LUNGS: +crackles ABDOMEN: Soft, nontender, nondistended with good bowel sounds heard. BACK: No CVAT, no obvious deformity. EXTREMITIES: Without cyanosis, clubbing or edema. NEUROLOGICAL: Grossly nonfocal. Alert and oriented, moving all 4 extremities. CN not formally tested but appear grossly intact. Skin: Warm and dry without any rash. #Acute hypoxic respiratory failure #Acute on chronic heart failure with preserved EF #Severe mitral calcification #PHTN -ECHO 2020 with G1DD, EF 60-65%, severe mitral calcification/regurg -NSR on EKG/exam, no changes in diet, infection as possible cause of exacerbation -s/p IV lasix 40 -Appeared dry on exam, will diuersis prn base upon clinical response -BMP in am -daily weights, I/Os -Infectious work up #Toxic metabolic encephalopathy #Recurrent UTI not septic -Hold fosfomycin, start CTX follow cultures Rest of plan as above I have reviewed the advanced practitioner's documentation, and I agree with, and take responsibility for the plan of care I spent a total of 45 minutes coordinating, documenting, and providing care for this patient excluding time spent in the performance of separately billed services. All of the aforementioned completed outside of collaborating with the assigned advanced practitioner for a full treatment plan. Please see their addendum for further details. (4) HTN (hypertension) Hypertension type: essential hypertension Qualified Code(s): I10 - Essential (primary) hypertension (5) HLD (hyperlipidemia) Hyperlipidemia type: unspecified Qualified Code(s): E78.5 - Hyperlipidemia, unspecified (7) T2DM (type 2 diabetes mellitus) Chronic kidney disease stage: stage 3 (moderate) Diabetes mellitus complication detail: with chronic kidney disease Diabetes mellitus complication status: with kidney complications Diabetes mellitus ferry terminal supervisor insulin use: without mcc use Qualified Code(s): E11.22 - Type 2 diabetes mellitus with diabetic chronic kidney disease; N18.3 - Chronic kidney disease, stage 3 (moderate) (8) Hypothyroidism Hypothyroidism type: unspecified Qualified Code(s): E03.9 - Hypothyroidism, unspecified
[2023-11-11] MEDS: FUROSEMIDE 40 MG/4 ML VIAL IV ONE (14:37)
[2023-11-11] MEDS ORDERED: ONDANSETRON INJ 2 MG/ML 2 ML VIAL IV PRN (17:03)
[2023-11-11] MEDS ORDERED: GLUCAGON FOR INJ 1 MG VIAL SQ PRN (17:03)
[2023-11-11] MEDS ORDERED: GLUCOSE 10 TAB/TUBE PO PRN (17:03)
[2023-11-11] MEDS ORDERED: GLUCOSE 40% GEL 15 GM TUBE PO PRN (17:03)
[2023-11-11] MEDS ORDERED: DEXTROSE 50% 50 ML SYRINGE IV PRN (17:03)
[2023-11-11] MEDS: cefTRIAXone SODIUM 1,000 MG in DEXTROSE 5 % MINI-B 50 ML IV ONE (17:06)
[2023-11-11] MEDS ORDERED: DICLOFENAC SOD 1% GEL 100 GM TUBE EXT PRN (17:21)
[2023-11-11] MEDS: INSULIN ASPART PER UNIT CHARGE SC SCH (17:42)
[2023-11-11] MEDS ORDERED: ARTIFICIAL TEARS OP PRN (17:57)
[2023-11-11] MEDS: MELATONIN 3 MG TAB PO SCH (20:12)
[2023-11-11] MEDS: METOPROLOL TARTRATE 25 MG TAB PO SCH (20:13)
[2023-11-11] MEDS: DOCUSATE SODIUM 100 MG CAP PO SCH (20:13)
[2023-11-11] MEDS: CEROVITE ADV FORMULA TAB PO SCH (20:14)
[2023-11-11] MEDS: ROSUVASTATIN CALCIUM 10 MG TAB PO SCH (20:14)
[2023-11-11] MEDS: TOBRAMYCIN/DEXAMETHASONE OPH OINT 3.5 GM TUBE OPB SCH (20:15)
[2023-11-11] MEDS: MUPIROCIN 2% OINT 22 GM TUBE TOP SCH (20:16)
[2023-11-11 21:20] LABS: Appearance Urine Cloudy (Clear); Bilirubin Urine Negative (Negative); Blood Urine 3+ (Negative); Color Urine Yellow; Glucose Urine UA Negative (Negative); Ketones Urine Negative (Negative); Leukocyte Esterase Urine Trace (Negative); Nitrite Urine Negative (Negative); Protein Urine 1+ (Negative); RBC Urine Automated 0-4 /hpf (0-4); Specific Gravity Urine 1.013 (1.000-1.030); Urobilinogen Urine Negative (Negative); pH Urine 5.5 (4.5-7.5)
[2023-11-11 21:44] LABS: Epithelial Cell Urine Auto 0-5 /lpf (0-5)
[2023-11-11 21:45] LABS: Bacteria Urine Automated 2+ (Negative)
[2023-11-12 06:24] LABS: Hematocrit (blood only) 28.5 % (37.0-47.0); Hemoglobin 8.4 g/dl (12.0-16.0); Mean Corpuscular Hemoglobin 25.5 pg (25.0-34.0); Mean Corpuscular Hgb Conc 29.5 g/dL (32.0-36.0); Mean Corpuscular Volume 86.6 fL (80.0-100.0); Mean Platelet Volume 11.2 fL (9.4-12.4); Platelet Count 109 K/uL (130-400); RDW Coefficient of Variation 19.1 % (11.5-14.5); RDW Standard Deviation 58.6 fL (36.4-46.3); Red Blood Count 3.29 M/uL (4.20-5.40); White Blood Count 6.55 K/ul (4.8-10.8)
[2023-11-12] MEDS: LEVOTHYROXINE SODIUM 112 MCG TABLET PO SCH (06:28)
[2023-11-12 06:42] LABS: Prothrombin Time 61.1 Seconds (9.0-12.0)
[2023-11-12 06:43] LABS: BUN Creatinine Ratio 22.2 (10-20); Calcium 8.1 mg/dl (8.6-10.3); Creatinine Clr Calc Pharmacy 24.4 ml/min; Est GFR (African American) 40.2 ml/min; Est GFR (Non-African American) 34.7 ml/min; Potassium 3.5 mmol/L (3.5-5.1)
[2023-11-12 06:45] LABS: INR 6.3 (0.9-1.1)
[2023-11-12 07:20] LABS: Estimated Average Glucose 128 mg/dl; Hemoglobin A1C 6.1 % (4.5-5.6)
[2023-11-12] MEDS: PHYTONADIONE 5 MG TAB PO STA (07:47)
--- NOTE | 2023-11-12 08:35 | Cardiology Consultation ---
Date of Consultation November 12, 2023 Assessment & Plan (1) Acute on chronic heart failure with preserved ejection fraction (HFpEF): (2) History of recurrent UTIs: (3) Paroxysmal A-fib: (4) Altered mental status: Plan Patient admitted for hypoxia with pulm edema on chest xray, and altered mental status which she has experienced frequently in the past with recurrent UTI's. Urinalysis with findings consistent with UTI. Started on antibiotics. Urine culture pending WBC normal. Blood cultures pending Pulm congestion/hypoxia on arrival consistent with acute on chronic HFpEF. Treated with one dose IV lasix in ER Mild rise in creatinine this morning. She appears hypovolemic on exam this morning. Will hold additional diuretic therapy for now. Echo in 2020 with preserved EF, mild MR. Repeat echo results pending to reassess LVEF, valvular disease Monitor I+O's. Supplement potassium to maintain 4.0-5.0 and magnesium > 2.0. Monitor renal function in AM History of PAF, currently in NSR. Continue amiodarone and metoprolol. Stable QT/QTc on EKG Normal LFT's. TSH in Aug 2023 within normal limits. INR supratherapeutic on admission at 5.8, increasing to 6.3 this morning. Received Vit K 2.5 mg this morning. Hold coumadin. DVT proph - INR elevated. Coumadin on hold. Case discussed with Dr. Clark I spent a total of 60 minutes on the date of service in preparation, delivery, and documentation of the care provided to this patient, excluding any time spent in the performance of separately billed services. Nighat Love PA-C Department of Cardiology, [facility] This chart was completed in part utilizing Speech Voice Recognition Software. Gr ammatical errors, random word insertions, pronoun errors, and incomplete sentences are an occasional consequence of this system due to software limitations, ambient noise, and hardware issues. Any formal questions or concerns about the content, text, or information contained within the body of this dictation should be directly addressed to the provider for clarification. Supervising Physician Co-Signing Physician Notes Attending attestation: Case reviewed with the advanced practitioner. I have personally performed a history and physical examination on the patient. I have reviewed the advanced practitioner's documentation on the date of service referenced in note, and I agree with, and take responsibility for the plan of care. Repeat echocardiogram repeated and will be reviewed. Emre Clark, History of Present Illness Reason for Consultation: Acute on chronic HFpEF Requesting Physician: Dr. Gilbert Attending Physician: Dr. Clark History of Present Illness Patient is a 88 year old female known to [facility], Dr. Velasco/Dr. Watters. History includes: 1. PAF controlled on amiodarone and on chronic anticoagulation with warfarin 2. Hypertension 3. DM 4. recurrent UTI/urosepsis 5. Dyslipidemia 6. chronic anemia Patient brought to [facility] yesterday due to concerns for worsening confusion, SOB/hypoxia at [facility]. On arrival, EKG demonstrated NSR without acute ST changes. Chest xray with mild pulm vascular congestion and elevated BNP consistent with mild CHF exacerbation. She was treated with one dose of IV Lasix in the ER. Hypoxia and SOB improved with Lasix and supplemental O2. INR was elevated at 5.8. She has a long history of UTI with sepsis. Urine culture pending. Blood cultures pending. Respiratory panel was negative. This morning, creatinine increased from 1.1 to 1.3. BUN at 30. Potassium slightly low and supplemented. INR increasing to 6.3 and received 2.5 mg of Vit K. At time of consult patient resting in bed. Appears weak, cachectic. She thinks she is going home today. Full Review of systems is not available/reliable. No family at bedside. She is slow to respond to questions. She reports feeling fine. No labored breathing. Still has supplemental O2 in place. No edema. No cough. No chest pain Allergies Allergy/AdvReac Type Severity Reaction Status Date / Time amoxicillin Allergy Intermediate Unknown Verified 08/18/23 14:25 sulfamethoxazole Allergy Intermediate Rash Verified 08/18/23 14:25 tetanus toxoid, adsorbed Allergy Intermediate HIVES Verified 08/18/23 14:25 tetracycline Allergy Intermediate hives Verified 08/18/23 14:25 trimethoprim Allergy Intermediate Rash Verified 08/18/23 14:25 rosuvastatin AdvReac Intermediate Muscle Verified 08/18/23 14:25 stiffness Home Medications Medication Instructions Recorded Confirmed Type docusate sodium 100 mg capsule 100 mg PO HS 06/25/20 11/11/23 History (Col-Rite) glipizide 5 mg tablet 10 mg PO QAM 06/25/20 11/11/23 History cholecalciferol (vitamin D3) 25 50 mcg PO QAM 11/09/20 11/11/23 History mcg (1,000 unit) tablet (Vitamin D3) vit C 250 mg-vit E 90 mg-zinc 40 1 tab PO BID 11/09/20 11/11/23 History mg-copper 1 or-[id number] capsule (PreserVision AREDS-2) Saccharomyces boulardii 250 mg 250 mg PO DAILY 03/15/22 11/11/23 History capsule acetaminophen 500 mg tablet 1,000 mg PO Q8H PRN FEVER 03/15/22 11/11/23 History (Tylenol Extra Strength) >100.5/MODERATE PAIN amiodarone 200 mg tablet 200 mg PO QAM 03/15/22 11/11/23 History ferrous sulfate 325 mg (65 mg 325 mg PO QAM 03/15/22 11/11/23 History iron) tablet ketoconazole 2 % shampoo 1 ea topical 3XWK 03/15/22 11/11/23 History cyanocobalamin (vitamin B-12) 1,000 mcg sublingual DAILY 10/27/22 11/11/23 History 1,000 mcg sublingual tablet mupirocin 2 % topical ointment 1 applic topical HS 10/27/22 11/11/23 History diclofenac sodium 1 % topical gel 1 ea topical Q12 PRN joint pain 02/08/23 11/11/23 History warfarin 1 mg tablet 1.5 mg PO .ON HOLD 02/08/23 11/11/23 History warfarin 1 mg tablet 2 mg PO .ON HOLD 02/08/23 11/11/23 History vibegron 75 mg tablet (Gemtesa) 75 mg PO DAILY #90 tabs 09/28/23 11/11/23 Rx aspirin 81 mg chewable tablet 81 mg PO 3XWK 11/11/23 11/11/23 History (Aspirin Childrens) levothyroxine 112 mcg tablet 112 mcg PO DAILYBB 11/11/23 11/11/23 History loperamide 2 mg tablet 2 mg PO Q8 PRN Diarrhea 11/11/23 11/11/23 History loratadine 10 mg tablet 10 mg PO Q OTHER DAY 11/11/23 11/11/23 History melatonin 3 mg capsule 3 mg PO HS 11/11/23 11/11/23 History menthol 0.44 %-zinc oxide 20.6 % 1 applic topical QS 11/11/23 11/11/23 History topical ointment (Calmoseptine) metoprolol tartrate 25 mg tablet 12.5 mg PO BID 11/11/23 11/11/23 History metronidazole 0.75 % topical cream 1 applic topical BID 11/11/23 11/11/23 History omeprazole 20 mg capsule,delayed 20 mg PO QAM 11/11/23 11/11/23 History release peg 400-propylene glycol (PF) 0.4 1 drp OPB .Q 2HRS WHILE AWAKE 11/11/23 11/11/23 History %-0.3 % eye drops in a dropperette (Systane (PF)) psyllium 1 ea PO DAILY 11/11/23 11/11/23 History rosuvastatin 10 mg tablet 10 mg PO HS 11/11/23 11/11/23 History sertraline 25 mg tablet 25 mg PO QAM 11/11/23 11/11/23 History tobramycin-dexamethasone 0.3 %-0.1 1 applic OPB HS 11/11/23 11/11/23 History % eye ointment (TobraDex) Patient History Medical History Gross hematuria CKD (chronic kidney disease) stage 4, GFR 15-29 ml/min History of MRSA infection History of COVID-19 History of traumatic subdural hematoma Symptomatic anemia Recurrent UTI Acute on chronic anemia Candiduria Cystitis Admitted to intensive care unit Sepsis Left knee DJD Closed left hip fracture s/p repair UTI (urinary tract infection) Atrial fibrillation with RVR Volume depletion CRISPIN (acute kidney injury) Sepsis Gram-negative bacteremia Paroxysmal A-fib DVT prophylaxis T2DM (type 2 diabetes mellitus) HTN (hypertension) HLD (hyperlipidemia) Hypothyroidism Surgical History History of hysterectomy History of cholecystectomy History of breast biopsy Family History Mother Breast cancer Hypertension Father , at 92 No problems noted. Social History Smoking Status: Never smoker Second Hand Exposure: No; Do You Dip or Chew Tobacco: No; Hx Alcohol Use: Yes Alcohol type: wine Hx Substance Use: No Preferred Language: Polish Communication Ability: Effective Safe Expert Required: No Beliefs That Will Affect Care: Hinduism Hinduism Beliefs: Doroteo marital status: / Current Living Situation: Halfway Current Living Situation Comment: [facility] How many Children do You have: 1 other: ambulates with cane Feels Safe at Home: Yes Safety Concerns: Feels Safe At This Time Assistive Devices: Wheelchair Review of Systems Review of Systems: All systems reviewed & are unremarkable except as noted in HPI & below Physical Exam Constitutional: WD/WN, vitals as above + cachectic; no acute distress Respiratory: no labored breathing Auscultation: + diminished lung sounds and + wheezes Cardiovascular: Rate/Rhythm: regular rate and regular rhythm Heart Sounds: normal S1, normal S2 and + murmur (II/) Vessels: + JVD Extremities: no edema Gastrointestinal (Abdomen): normal bowel sounds, soft, nontender, no hepatosplenomegaly Skin: no rashes, warm and dry Results & Data Vital Signs (Past 12 Hours) Vital Signs Temp Pulse Pulse Resp BP Pulse Ox O2 Del Method 11/12/23 08:28 36.6 C 77 20 130/63 95 Nasal Cannula 11/12/23 02:39 36.6 C 78 18 116/55 L 93 Nasal Cannula 11/12/23 02:07 83 11/11/23 23:24 36.7 C 78 18 130/58 L 94 Nasal Cannula O2 Flow Rate 11/12/23 08:28 2 11/12/23 02:39 11/12/23 02:07 11/11/23 23:24 Laboratory Results Cardiac Enzymes 11/11/23 Range/Units 12:10 AST 39 (13-39) U/L Troponin I High Sens 11.1 (0-14) pg/ml B-Natriuretic Peptide 670 H (0-100) pg/ml Coagulation 11/11/23 11/12/23 Range/Units 12:10 05:27 PT 57.0 H 61.1 H (9.0-12.0) Seconds APTT 44 H (21-31) Seconds B-Natriuretic Peptide 670 H (0-100) pg/ml CBC 11/11/23 11/12/23 Range/Units 12:10 05:27 WBC 6.35 6.55 (4.8-10.8) K/ul RBC 3.37 L 3.29 L (4.20-5.40) M/uL Hgb 8.5 L 8.4 L (12.0-16.0) g/dl Hct 29.0 L 28.5 L (37.0-47.0) % Plt Count 113 L 109 L (130-400) K/uL Neut # (Auto) 4.33 (1.40-6.50) K/uL Lymph # (Auto) 1.41 (1.20-3.40) K/uL Collin # (Auto) 0.52 (0.11-0.59) K/uL Eos # (Auto) 0.03 (0.00-0.50) K/uL Baso # (Auto) 0.03 (0.00-0.20) K/uL Comprehensive Metabolic Panel 11/11/23 11/12/23 Range/Units 12:10 05:27 Sodium 142 143 (136-145) mmol/L Potassium 4.0 3.5 (3.5-5.1) mmol/L Chloride 109 H 108 H (98-107) mmol/L Carbon Dioxide 26 26 (21-32) mmol/L BUN 29 H 30 H (6-23) mg/dl Creatinine 1.12 1.35 H (0.6-1.2) mg/dl Glucose 120 H 61 L (70-99(Fasting)) mg/dl Calcium 8.3 L 8.1 L (8.6-10.3) mg/dl AST 39 (13-39) U/L ALT 19 (7-52) U/L Alkaline Phosphatase 92 (34-104) U/L Total Protein 5.3 L (6.0-8.3) gm/dl Albumin 3.1 L (3.4-5.0) gm/dl Intake and Output 11/11/23 11/12/23 11/12/23 22:59 06:59 14:59 Intake Total 50 / 270 220 / 270 Output Total 250 / 250 Balance 50 / 20 -30 / Intake: IV 50 / 50 cefTRIAXone SODIUM 1,000 mg In 50 / 50 Dextrose 5 % Mini-B 50 ml @ 100 mls/hr IV NOW ONE Rx#:[id number] Oral 220 / 220 Output: Urine 100 / 100 Urine Amount (Catheter) 150 / 150 Velásquez/Indwelling 150 / 150 Other: # Unmeasured Voids 2 Weight 57.833 kg Weight Measurement Method Built in [facility] Diagnostic Findings Telemetry reviewed: NSR in the 70's. no arrhythmias EKG reviewed from 11/11/23: NSR at 86 bmp L[address] No acute ST/T wave abnormalities QT/QTc 364/435 ms Chest xray reviewed on admission: IMPRESSION: 1. Pulmonary vascular congestion with suspected mild pulmonary edema. 2. Bibasilar opacities which favor atelectasis although an infectious process could appear similar. Echocardiogram pending Echo in Oct 2020 at [facility] reviewed: Normal wall motion LVEF 60-65% Grade I diastolic dysfunction Severe MAC with mild MR Mild pulm hypertension Pulm artery systolic pressure estimated to be 43 mmHg Medications Administered Current Inpatient Medications Acetaminophen (Acetaminophen 325 Mg Tab) 650 mg PO Q4H PRN PRN Reason: Moderate Pain (Scale 4, 5, 6) Stop: 12/11/23 17:02 Amiodarone HCl (Amiodarone 200 Mg Tab) 200 mg PO QAM [facility] Stop: 12/12/23 08:59 Artificial Tears (Artificial Tears) 1 drops OP Q2HWA PRN PRN Reason: Dryness Stop: 12/11/23 17:56 Aspirin (Aspirin 81 Mg Ectab) 81 mg PO MoWeFr@0900 [facility] Stop: 12/12/23 08:59 Cyanocobalamin (Cyanocobalamin (B-12) 500 Mcg Tablet) 1,000 mcg PO DAILY [facility] Stop: 12/12/23 08:59 Dextrose (Dextrose 50% 50 Ml Syringe) 25 - 50 ml IV UD PRN; Protocol PRN Reason: Hypoglycemia Protocol Stop: 12/11/23 17:02 Diclofenac Sodium (Diclofenac Sod 1% Gel 100 Gm Tube) 4 gm EXT Q12H PRN; Pr otocol PRN Reason: joint pain Stop: 12/11/23 17:20 Docusate Sodium (Docusate Sodium 100 Mg Cap) 100 mg PO HS [facility] Stop: 12/11/23 20:59 Last Admin: 11/11/23 20:13 Dose: 100 mg Ferrous Sulfate (Ferrous Sulfate 325 Mg Tab) 325 mg PO QAM [facility] Stop: 12/12/23 08:59 Furosemide (Furosemide 40 Mg/4 Ml Vial) 40 mg IV QAM [facility] Stop: 12/12/23 08:59 Glucagon (Glucagon For Inj 1 Mg Vial) 1 mg SQ UD PRN; Protocol PRN Reason: Hypoglycemia Protocol Stop: 12/11/23 17:02 Glucose (Glucose 10 Tab/Tube) 4 - 8 tab PO UD PRN; Protocol PRN Reason: Hypoglycemia Treatment Stop: 12/11/23 17:02 Glucose (Glucose 40% Gel 15 Gm Tube) 15 - 30 gm PO UD PRN; Protocol PRN Reason: Hypoglycemia Protocol Stop: 12/11/23 17:02 Ceftriaxone Sodium 1,000 mg/ (Dextrose) 50 mls @ 100 mls/hr IV Q24H [facility]; Protocol Stop: 11/17/23 15:59 Insulin Aspart (Insulin Aspart Per Unit Charge) 0 units SC ACHS [facility] Stop: 12/11/23 17:02 Last Admin: 11/11/23 20:12 Dose: Not Given Levothyroxine Sodium (Levothyroxine Sodium 112 Mcg Tablet) 112 mcg PO DAILYBB [facility] Stop: 12/12/23 06:29 Last Admin: 11/12/23 06:28 Dose: 112 mcg Melatonin (Melatonin 3 Mg Tab) 3 mg PO [facility] Stop: 12/11/23 20:59 Last Admin: 11/11/23 20:12 Dose: 3 mg Metoprolol Tartrate (Metoprolol Tartrate 25 Mg Tab) 12.5 mg PO BID [facility] Stop: 12/11/23 20:59 Last Admin: 11/11/23 20:13 Dose: 12.5 mg Miscellaneous (Carbohydrates For Hypoglycemia ) 15 - 30 gm PO UD PRN PRN Reason: Hypoglycemia Protocol Stop: 12/11/23 17:02 Miscellaneous (*Metronidazole Cream*Order Awaiting Action) 1 each N/A QS [facility] Stop: 12/12/23 00:00 Last Admin: 11/12/23 07:48 Dose: Not Given Multivitamins/Minerals (Cerovite Adv Formula Tab) 1 tab PO BID [facility] Stop: 12/11/23 20:59 Last Admin: 11/11/23 20:14 Dose: 1 tab Mupirocin (Mupirocin 2% Oint 22 Gm Tube) 1 appln TOP HS [facility] Stop: 12/11/23 20:59 Last Admin: 11/11/23 20:16 Dose: 1 appln Ondansetron HCl (Ondansetron Inj 2 Mg/Ml 2 Ml Vial) 4 mg IV Q4H PRN PRN Reason: Nausea And Vomiting Stop: 12/11/23 17:02 Pantoprazole Sodium (Pantoprazole 40 Mg Tab) 40 mg PO QAM [facility] Stop: 12/12/23 08:59 Psyllium Hydrophilic Mucilloid (Psyllium Or Guar Gum Fiber Powder Packet) 1 pkt PO DAILY NO Stop: 12/12/23 08:59 Rosuvastatin Calcium (Rosuvastatin Calcium 10 Mg Tab) 10 mg PO HS NO Stop: 12/11/23 20:59 Last Admin: 11/11/23 20:14 Dose: 10 mg Saccharomyces Boulardii (Saccharomyces Boulardii 250 Mg Cap) 250 mg PO DAILY NO Stop: 12/12/23 08:59 Sertraline HCl (Sertraline Hcl 50 Mg Tablet) 25 mg PO QAM [facility] Stop: 12/12/23 08:59 Tobramycin/Dexamethasone (Tobramycin/Dexamethasone Oph Oint 3.5 Gm Tube) 1 appln OPB [facility] Stop: 12/11/23 20:59 Last Admin: 11/11/23 20:15 Dose: 1 appln Vibegron (Vibegron 75 Mg Tab) 75 mg PO DAILY [facility] Stop: 12/12/23 08:59 Vitamin D (Cholecalciferol 25 Mcg (1000 Units) Tab) 50 mcg PO QAM [facility] Stop: 12/12/23 08:59 Medications docusate sodium 100 mg capsule (Col-Rite) 100 mg PO HS 06/25/20 [History Confirmed 11/11/23] glipizide 5 mg tablet 10 mg PO QA 06/25/20 [History Confirmed 11/11/23] cholecalciferol (vitamin D3) 25 mcg (1,000 unit) tablet (Vitamin D3) 50 mcg PO QAM 11/09/20 [History Confirmed 11/11/23] vit C 250 mg-vit E 90 mg-zinc 40 mg-copper 1 [id number] capsule (PreserVision AREDS-2) 1 tab PO BID 11/09/20 [History Confirmed 11/11/23] Saccharomyces boulardii 250 mg capsule 250 mg PO DAILY 03/15/22 [History Confirmed 11/11/23] acetaminophen 500 mg tablet (Tylenol Extra Strength) 1,000 mg PO Q8H PRN FEVER >100.5/MODERATE PAIN 03/15/22 [History Confirmed 11/11/23] amiodarone 200 mg tablet 200 mg PO QAM 03/15/22 [History Confirmed 11/11/23] ferrous sulfate 325 mg (65 mg iron) tablet 325 mg PO QAM 03/15/22 [History Confirmed 11/11/23] ketoconazole 2 % shampoo 1 ea topical 3XWK 03/15/22 [History Confirmed 11/11/23] cyanocobalamin (vitamin B-12) 1,000 mcg sublingual tablet 1,000 mcg sublingual DAILY 10/27/22 [History Confirmed 11/11/23] mupirocin 2 % topical ointment 1 applic topical HS 10/27/22 [History Confirmed 11/11/23] diclofenac sodium 1 % topical gel 1 ea topical Q12 PRN joint pain 02/08/23 [History Confirmed 11/11/23] warfarin 1 mg tablet 1.5 mg PO .ON HOLD 02/08/23 [History Confirmed 11/11/23] warfarin 1 mg tablet 2 mg PO .ON HOLD 02/08/23 [History Confirmed 11/11/23] vibegron 75 mg tablet (Gemtesa) 75 mg PO DAILY #90 tabs 09/28/23 [Rx Confirmed 11/11/23] aspirin 81 mg chewable tablet (Aspirin Childrens) 81 mg PO 3XWK 11/11/23 [History Confirmed 11/11/23] levothyroxine 112 mcg tablet 112 mcg PO DAILYBB 11/11/23 [History Confirmed 11/11/23] loperamide 2 mg tablet 2 mg PO Q8 PRN Diarrhea 11/11/23 [History Confirmed 11/11/23] loratadine 10 mg tablet 10 mg PO Q OTHER DAY 11/11/23 [History Confirmed 11/11/23] melatonin 3 mg capsule 3 mg PO HS 11/11/23 [History Confirmed 11/11/23] menthol 0.44 %-zinc oxide 20.6 % topical ointment (Calmoseptine) 1 applic topical QS 11/11/23 [History Confirmed 11/11/23] metoprolol tartrate 25 mg tablet 12.5 mg PO BID 11/11/23 [History Confirmed 11/11/23] metronidazole 0.75 % topical cream 1 applic topical BID 11/11/23 [History Confirmed 11/11/23] omeprazole 20 mg capsule,delayed release 20 mg PO QAM 11/11/23 [History Confirmed 11/11/23] peg 400-propylene glycol (PF) 0.4 %-0.3 % eye drops in a dropperette (Systane (PF)) 1 drp OPB .Q 2HRS WHILE AWAKE 11/11/23 [History Confirmed 11/11/23] psyllium 1 ea PO DAILY 11/11/23 [History Confirmed 11/11/23] rosuvastatin 10 mg tablet 10 mg PO HS 11/11/23 [History Confirmed 11/11/23] sertraline 25 mg tablet 25 mg PO QAM 11/11/23 [History Confirmed 11/11/23] tobramycin-dexamethasone 0.3 %-0.1 % eye ointment (TobraDex) 1 applic OPB HS 11/11/23 [History Confirmed 11/11/23] (4) Altered mental status Altered mental status type: unspecified Qualified Code(s): R41.82 - Altered mental status, unspecified
[2023-11-12] MEDS: CARBOHYDRATES FOR HYPOGLYCEMIA PO PRN (08:49)
[2023-11-12] MEDS: CHOLECALCIFEROL 25 MCG (1000 UNITS) TAB PO SCH (09:17)
[2023-11-12] MEDS: SERTRALINE HCL 50 MG TABLET PO SCH (09:17)
[2023-11-12] MEDS: FERROUS SULFATE 325 MG TAB PO SCH (09:17)
[2023-11-12] MEDS: AMIODARONE 200 MG TAB PO SCH (09:17)
[2023-11-12] MEDS: POTASSIUM CHLORIDE CRTAB 20 MEQ TABCR PO STA (09:17)
[2023-11-12] MEDS: ASPIRIN 81 MG ECTAB PO SCH (09:17)
[2023-11-12] MEDS: PANTOprazole 40 MG TAB PO SCH (09:18)
[2023-11-12] MEDS: SACCHAROMYCES BOULARDII 250 MG CAP PO SCH (09:18)
[2023-11-12] MEDS: VIBEGRON 75 MG TAB PO SCH (09:18)
[2023-11-12] MEDS: PSYLLIUM or GUAR GUM FIBER POWDER PACKET PO SCH (09:18)
[2023-11-12] MEDS: FUROSEMIDE 40 MG/4 ML VIAL IV SCH (09:19)
[2023-11-12] MEDS: CYANOCOBALAMIN (B-12) 500 MCG TABLET PO SCH (09:19)
--- OUTSIDE RECORDS SUMMARY | 2023-11-12 10:35 | External Medical Summary | Summary of Care ---
Author Name Unknown Organization [facility] Address [address] [place] [address] Phone [phone] Care Team Providers Care Clarifier Operator Helper Name Role Phone Moy Hassan DO Primary Care Provider [phone] Reason for Visit * Reason Onset Date Comments Medication Refill 11/10/2023 Encounter Details Date Type Department Care Team (Late st Contact Info) Description 11/10/2023 Refill Family Practice [facility] [address] [place] [address] Moy Hassan DO [address] [facility] [place] [address] Recurrent UTI Allergies Active Allergy Reactions Criticality Noted Date Comments Amoxicillin 10/21/2022 Sulfamethoxazole-Trimethop rim Rash 10/24/2016 Sulfamethoxazole 11/28/2020 Tetanus Toxoid Other (Please comment) Medium 02/17/2001 Large local reaction SHANIQUE MCMAHON 02/17/2001 11:46 am pt has large reddened area , warm to touch on right Deltoid where she was given tetanus injection 1 week ago. Seen by Dr. Otero , felt it was areaction to tetanus, but gave a couple days of Tequin Tetracycline Rash Medium 06/28/2000 Trimethoprim 11/28/2020 documented as of this encounter (statuses as of 11/10/2023) Medications Medication Sig Dispensed Refills Start Date End Date Status GLUCOMETER DIABETES CARE KITIndications:DM type 2, goal A1c below 7 as directed 1 0 12/22/19 03 Active LANCETS MISCIndications:DM type 2, goal A1c below 7 as directed 50 5 12/22/19 03 Active ONE TOUCH ULTRA DEVIIndications:DM type 2, goal A1c below 7 tests tid 1 0 01/21/20 07 Active ONETOUCH ULTRA SYSTEM W/DEVICE KITIndications:DM type 2, goal A1c below 7 tid 1 0 10/31/19 09 Active ONETOUCH LANCETS MISC Use one lancet 3 times daily. DX:E11.9 300 Each 3 02/09/20 17 Active Glucose Blood (ONETOUCH ULTRA BLUE) STRP Use one strip 3 times daily. 300 Strip 3 12/12/19 20 Active Ferrous Sulfate 325 (65 Fe) MG Oral Tablet (FEOSOL)Indications:Ane ladan, unspecified type Take 1 Tab by mouth daily with breakfast. 30 Tab 0 07/31/20 20 Active Diclofenac Sodium 1 % External Gel (Voltaren) APPLY TO JOINT TOPICALLY EVERY 12 HOURS NEEDED FOR PAIN -- DOSE IN GRAMS MAY NEED CLARIFIED 100 g 4 12/18/19 22 Active Docusate Sodium 100 MG Oral Capsule (Colace) Take by mouth 1 Capsule before bedtime. 30 Capsule 5 12/27/19 22 Active Acetaminophen 500 MG Oral Tablet (Tylenol) Take by mouth 2 Tablets every 8 hours as needed for Fever >38C(100.5F) or Pain, Moderate. 100 Tablet 5 12/27/19 22 Active Fluticasone Propionate 50 MCG/ACT Nasal Suspension (Flonase)Indications:Ch ronic rhinitis 2 SPRAYS IN EACH NOSTRIL AT BEDTIME NEEDED FOR CONGESTION 48 g 1 03/14/20 22 Active Anti-Diarrheal 2 MG Oral Tablet (Loperamide) ONE TAB BY MOUTH DAILY BUT HOLD IF CONSTIPATION. 30 Tablet 4 03/27/20 22 Active Additional Information Patient taking differently: 2 mg Oral TID PRN, Diarrhea, Reported on 08/05/2023 Calmoseptine 0.44-20.6 % External Ointment (Menthol-Zinc Oxide) Apply topically to affected area every evening. Apply to scab 20 g 3 10/05/19 23 Active Vitamin D 50 MCG (1999 UT) Oral Capsule Take 2,000 Units by mouth in the morning. 90 Capsule 3 02/02/20 Active Sertraline HCl 25 MG Oral Tablet (Zoloft)Indications:CATA (generalized anxiety disorder) Take 1 Tablet by mouth in the morning. 30 Tablet 11 02/04/20 Active Warfarin Sodium 3 MG Oral Tablet (Coumadin) TAKE 1/2 TAB (1.5MG) BY MOUTH Daily 5 days per week. Current regimen; 2mg MF, 1.5mg all other days 60 Tablet 1 02/06/20 Active Levothyroxine Sodium 112 MCG Oral Tablet (Levoxyl) Take 1 Tablet by mouth in the morning. (at least 30 min prior to breakfast or other meds). 90 Tablet 3 02/06/20 Active Aspirin 81 MG Oral Tablet Chewable (Aspirin Low Dose) 1 TAB BY MOUTH EVERY MORNING THREE TIMES WEEKLY ON MON,WED,WED *HEART HEALTH* 12 Tablet 5 03/23/20 Active Metamucil Smooth Texture 58.6 % Oral Powder (Psyllium)Indications:L oose stools Take 1 Scoop by mouth in the morning and 1 Scoop at noon and 1 Scoop before bedtime. One scoop in 8 ounces of water, up to three times a day.. 660 g 3 05/17/20 Active Additional Information Patient taking differently:1 Scoop OralDaily(AM), (No instructions reported), Reported on 08/05/2023 B-12-SL 1000 MCG Sublingual Tablet Sublingual (Cyanocobalamin) Place 1,000 mcg under the tongue in the morning. 90 Tablet 3 06/07/20 Active Metoprolol Tartrate 25 MG Oral Tablet (Lopressor) TAKE 1/2 TAB (12.5MG) BY MOUTH TWICE DAILY 30 Tablet 10 07/18/20 Active Melatonin 3 MG Oral CapsuleIndications:Inso mnia, unspecified type Take 1 Capsule by mouth at bedtime. 30 Capsule 11 07/19/20 Active GenTeal Tears Night-Time Ophthalmic Ointment Instill into both eyes at bedtime. 0 Active Glucerna Oral Liquid Take by mouth daily. 0 Active Ketoconazole 2 % External Shampoo (Nizoral) Apply topically to affected area once a day on Wednesday, Wednesday, and Wednesday only. 0 Active metroNIDAZOLE 0.75 % External Cream (Metrocream) Apply topically to affected area 2 times a day. 0 Active Systane 0.4-0.3 % Ophthalmic Solution (Artificial Tears) Instill into both eyes 3 times a day as needed for Dry eyes. 0 Active Warfarin Sodium 1 MG Oral Tablet (Coumadin)Indications:P aroxysmal atrial fibrillation (HCC) Take up to one and one-half tablets by mouth daily as directed by anticoagulation clinic (THREE TIMES A WEEK ON WED, , ) 20 Tablet 1 08/24/20 23 Active Warfarin Sodium 2 MG Oral Tablet (Coumadin)Indications:P aroxysmal atrial fibrillation (HCC) Take as directed by anticoagulation clinic (1 TAB BY MOUTH FOUR TIMES A WEEK ON MON, WED, WED, SAT) 16 Tablet 4 08/24/20 23 Active PreserVision AREDS 2 Oral Capsule Take 1 Capsule by mouth in the morning and 1 Capsule before bedtime. 60 Capsule 3 09/06/20 23 Active Omeprazole 20 MG Oral Capsule Delayed Release (PriLOSEC)Indications:G astroesophageal reflux disease without esophagitis Take 1 Capsule by mouth in the morning. 1 hour before the first meal of the day. 30 Capsule 5 09/06/20 23 Active Amiodarone HCl 200 MG Oral Tablet (Cordarone) Take 1 Tablet by mouth in the morning. 30 Tablet 11 09/28/19 24 Active Rosuvastatin Calcium 10 MG Oral TabletIndications:Pure hypercholesterolemia 1 TAB BY MOUTH AT BEDTIME FOR HYPERLIPIDEMIA 90 Tablet 3 10/12/19 24 Active Azithromycin 500 MG Oral Tablet (Zithromax) Take 1 pill before dental appointments. 3 Tablet 0 10/20/19 24 Active glipiZIDE ER 5 MG Oral Tablet Extended Release 24 Hour TAKE 2 TABLETS BY MOUTH IN THE MORNING. - PER PREVIOUS ORDER: TAKE 30-MINUTES BEFORE MEAL 180 Tablet 1 10/28/19 24 Active Loratadine 10 MG Oral Tablet (Claritin)Indications:N on-seasonal allergic rhinitis, unspecified trigger Take 1 Tablet by mouth every other day. 15 Tablet 3 10/29/19 24 Active Probiotic 250 MG Oral CapsuleIndications:Recu rrent UTI Take 250 mg by mouth in the morning. 30 Capsule 11 11/10/19 24 Active Probiotic 250 MG Oral CapsuleIndications:Recu rrent UTI Take 250 mg by mouth daily. 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 09/30/2021 Squamous cell carcinoma in situ 08/04/2021 Overview: Left frontal scalp Abnormality of gait 09/26/2020 Warfarin anticoagulation 09/06/2020 Anemia 07/11/2020 H/O traumatic subdural hematoma 01/12/2020 Type 2 diabetes mellitus wit h stage 4 chronic kidney disease, without long-term current use of insulin 08/28/2019 Overview: Per CKD protocol Hypertensive kidney disease with chronic kidney disease stage IV 08/28/2019 Overview: Per CKD protocol 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 04/06/2019 Paroxysmal atrial fibrillation 11/08/2018 Statin intolerance 11/26/2017 Pure hypercholesterolemia 08/20/2017 Acquired hypothyroidism 03/11/2016 Essential hypertension with goal blood pressure less than 140/90 03/11/2016 Type 2 diabetes mellitus wit h hemoglobin A1c goal of less than 8.0% 05/22/2015 Overview: ICD-10 update of inactive term History of MRSA infection 10/05/2014 ADVANCE DIRECTIVE INFORMATION 04/16/2005 Overview: Yes, Patient instructed to provide copy of advance directive for provider to review and to be scanned into Electronic Medical Record Actinic keratosis 04/16/2005 documented as of this encounter (statuses as of 11/10/2023) Resolved Problems Problem Noted Date Diagnosed Date Resolved Date Type 2 diabetes mellitus wit h stage 3 chronic kidney disease, without long-term current use of insulin 10/15/2020 10/21/2022 Persistent atrial fibrillation 03/08/2020 07/11/2020 Subarachnoid bleed 01/12/2020 0 Hypertensive kidney disease with CKD stage III 06/03/2018 08/31/2019 Overview: Per CKD protocol Type 2 diabetes mellitus wit h stage 3 chronic kidney disease, without long-term current use of insulin 11/26/2017 08/31/2019 Overview: Per CKD protocol Kidney disease, chronic, sta ge III (GFR 30-59 ml/min) 09/30/2015 12/31/2017 Overview: Per CKD protocol #1 HTN, goal below 140/90 07/26/201503/11 Closed tibia fracture 01/23/20152017 Hypothyroidism 12/21/2012 03/11/2016 HTN, goal below 140/80 05/09/201207/26 Overview: Per HTN Protocol #27. Vitamin D deficiency 12/06/2009 011 HTN, GOAL BELOW 130/80 10/16/200905/12 Overview: Per HTN Taxonomy. Type 2 diabetes mellitus wit h hemoglobin A1c goal of less than 7.0% 07/18/2009 05/22/2015 Overview: Per Diabetes Taxonomy. ICD-10 update of inactive term Other osteoporosis without c urrent pathological fracture 06/25/2008 07/26/2015 Overview: ICD-10 update of inactive term Type 2 diabetes mellitus wit h hemoglobin A1c goal of less than 7.0% 11/01/2002 07/18/2009 Overview: Per Diabetes Taxonomy. ICD-10 update of inactive term HTN, goal below 140/90 10/16 Overview: Per HTN Taxonomy. documented as of this encounter (statuses as of 11/10/2023) Immunizations Name Administration Dates Next Due COVID-19 mRNA, LNP-s, No Pre serve, 2-Dose Series (Pfizer) 10/19/2020,09/28/2020 Pneumococcal Conjugate Vacc, 13 Valent (Prevnar) 07/26/2015 Pneumococcal Polysaccharide PPV23 (Pneumovax) 03/26/2017 RSV Vac., Bivalent, Perfusio n F, Pf,0.5 Ml (Abrysvo) 09/06/2023 Season Influenza, Quad, PF, Adjuvanted, 65+ Yrs, IM (FLUAD) 05/22/2020 Seasonal Influenza, PF, 6 M & above, IM , (FluLaval or Fluzone) 07/05/2017 Seasonal Influenza, Quadriva lent, No Preserve, IM 06/19/2016,07/26/2015 Seasonal Influenza, Split, I IV3, With Preserve, Inj 05/22/2014,06/22/2013,06/23/2012,05/22,07/15/2010,06/25/2009,06/26/20 08,06/20/2007,07/06/2006 06/18/2012 Seasonal Influenza, Trivalen t, Adjuvanted, 65+ yrs 07/04/2021,06/30/2019,06/03/2018 Seasonal Influenza, Trivalen t, High Dose, No Preserve, IM 06/18/2021 TD - Tetanus/Diptheria (ADULT) 02/10/2001 Varicella Zoster Vaccine (Adult) 07/30/2008 documented as of this encounter Social History Tobacco Use Types Packs/Day Years Used Date Smoking Tobacco: Never Smokeless Tobacco: Never Alcohol Use Standard Drinks/Week Comments Yes 0 (1 standard drink = 0.6 oz pur e alcohol) very rare PHQ-2 Answer Date Recorded PHQ Adult Total Score 1 10/21/2022 Hunger Vital Sign Answer Date Recorded Within the past 12 months, y ou worried that your food would run out before you got the money to buy more. Never true 10/21/19 23 Within the past 12 months, t he food you bought just didn't last and you didn't have money to get more. Never true 10/21/2022 Sex and Gender Information Value Date Recorded Sex Assigned at Female 01/18/2019 2:52 PM EDT Gender Identity Female 01/18/2019 2:52 PM EDT Sexual Orientation Straight 01/18/2019 2: 52 PM EDT Job Start Date Occupation Industry Not on file Not on file Not on file documented as of this encounter Miscellaneous Notes * Telephone Encounter - Moy Hassan DO - 11/10/2023 3:43 PM ESTSigned Prescriptions: Disp Refills Probiotic 250 MG Oral Capsule 30 Cap*11 Sig: Take 250 mg by mouth in the morning. Authorizing Provider: MOY HASSAN * Telephone Encounter - Lupe Guzmán, coding assistant - 11/10/2023 1:43 PM EST Did you pend patient's preferred pharmacy and medication before forwarding?yes Pharmacy: [facility] [address] Pending Prescriptions: Disp Refills Probiotic 250 MG Oral Capsule 30 Cap*11 Sig: Take 250 mg by mouth in the morning. Last Visit: 09/06/2023 (in office), 10/29/2020 (telemedicine) Next Visit: 01/05/2024 If no future appointments scheduled, and last appointment is greater than a year ago, please schedule patient for a follow-up appointment Last date the medication was ordered: 11/29/2020 Is this request for a controlled substance?No Urine Drug Screen:No results found. However, due to the size of the patient record, not all encounters were searched. Please check Results Review for a complete set of results. Patient Phone Numbers Labs: Lab Results Component Value Date/Time CREAT 1.1 (H) 09/10/2023 05:45 AM CREAT 1.56 (A) 04/03/2022 12:00 AM CREAT 1.3 (H) 07/26/2020 11:54 AM POTASSIUM 4.6 09/10/2023 05:45 AM POTASSIUM 4.4 04/03/2022 12:00 AM POTASSIUM 4.5 07/26/2020 11:54 AM POTASSIUM 4.1 11/09/1996 09:20 AM TSH 3.68 09/06/2023 01:48 PM TSH 0.86 07/26/2020 11:54 AM TSH 3.16 12/25/1996 09:53 AM LDLCALC 20 05/15/2022 02:26 PM LDLCALC 54 03/28/2020 11:41 AM LDLDIRECT 91 09/08/2018 04:31 PM LDLDIRECT 97 04/07/2010 08:49 AM ALT 35 09/10/2023 05:45 AM ALT 14 07/26/2020 11:54 AM HGBA1C 6.6 (H) 09/06/2023 01:48 PM HGBA1C 7.4 (A) 06/26/2020 12:00 AM HGBA1C 7.7 (H) 03/28/2020 11:41 AM HGBA1C 5.7 11/09/1996 09:20 AM documented in this encounter Plan of Treatment Upcoming Encounters Date Type Department Care Team (Latest Contact Info) Description 11/10/2023 4:45 PM EST Anticoagulation Pharmacy Call Center [phone] [place] [id number] [facility] [address] [place] [address] Paroxysmal atrial fibrillation (HCC)*; H/O traumatic subdural hematoma 11/17/2023 8:00 AM EST Laboratory Lab [facility] [address] [place] [address] [place], [facility] [address] [place] [address] 11/18/2023 2:00 PM EST Immunization/Injection Hematology/Oncolo gy Treatment, [place] [address] [place] [phone] Nurse, Med [address] [place] [address] 11/24/2023 4:45 PM EST Anticoagulation Pharmacy Call Center [address] [facility] [place] [address] [facility] [address] [facility] [place] [address] 12/01/2023 8:00 AM EDT Laboratory Lab [facility] [address] [place] [address] [facility], [facility] [address] [place] [address] 12/02/2023 1:45 PM EDT Immunization/Injection Hematology/Oncolo gy Treatment, [address] [phone] Nurse, Med 4 [address] [facility] [place] [address] 12/06/2023 1:00 PM EDT Office Visit Ophthalmology, [facility] [address] [place] [address] Wu Varma, DO [address] [place] [address] 12/15/2023 8:00 AM EDT Laboratory Lab [facility] [address] [place] [address] [facility], [address] [address] 12/16/2023 1:45 PM EDT Immunization/Injection Hematology/Oncolo gy Treatment, [address] [phone] Nurse, Med 4 [address] [facility] [place] [address] 12/29/2023 8:00 AM EDT Laboratory Lab [facility]bot[facility] [address] [place] [address] [facility], [facility] Mobile [place] [address] [place] [address] 12/30/2023 1:45 PM EDT Immunization/Injection Hematology/Oncolo gy Treatment, [address] [phone] Nurse, Med 4 [address] [facility] [place] [address] 01/05/2024 3:40 PM EDT Office Visit Family Practice [facility] [place] [address] [facility] [place] [address] Moy Hassan, [address] [facility] [place] [address] 03/16/2024 10:45 AM EDT Office Visit Hematology/Oncolo gy [facility] [place] [address] [facility] [place] [phone] Juventino Sarah MD [address] [facility] [place] [address] Health Maintenance Due Date Last Done Comments Zoster Vaccines (2 of 3) 09/24/2008 07/30/2008 Nephrology Referral 10/05/2014 10/05/2013 Albumin/Creatinine Ratio 04/06/2020 019, 06/08/2018, 07/01/2017, Additional history exists Diabetic Foot Exam 03/20/2021 03/20/2020, 0 03/20/2019, 02/28/2018, Additional history exists COVID-19 Vaccine ( season) 2023 10/19/2020, 09/28/2020 Influenza Vaccine (FLU shot) (#1) 2023 07/04/2021, 06/18/2021, 05/22/2020, Additional history exists Depression Screening 10/21/2023 10/21/2022 PTH 02/04/2024 02/03/2023, 07/0 05/2020, 06/03/2018, Additional history exists Phosphate 02/04/2024 02/03/2023, 070 05/2020, 08/11/2019, Additional history exists Diabetic Eye Exam 02/23/2024 02/22/2023, , 02/11/2021, Additional history exists HbA1c 03/07/2024 09/06/2023, 01/18, 10/21/2022, Additional history exists TSH 09/06/2024 09/06/2023, 01/18, 05/15/2022, Additional history exists Hgb 11/04/2024 11/04/2023, 09/22, 10/06/2023, Additional history exists Pneumococcal Vaccine: 65+ Years Completed 03/26/2017, 07/26/2015, 09/20/2000, Additional history exists GARDASIL-HPV IMMUNIZATION SERIES Aged Out No longer eligible based on patient's age to complete this topic Hepatitis B Aged Out No longer eligi ble based on patient's age to complete this topic MENINGOCOCCAL (MENACTRA/MENVEO) Aged Out No longer eligible based on patient's age to complete this topic documented as of this encounter Medical Devices Not on filedocumented as of this encounter Visit Diagnoses Diagnosis Paroxysmal atrial fibrillation (HCC)- Primary Atrial fibrillation H/O traumatic subdural hematoma Personal history of other diseases of circulatory system Recurrent UTI Urinary tract infection, site not specified documented in this encounter Advance Directives Documents on File Type Date Recorded Patient Party Host/Hostess Expl anation Power of Nca Certified Concierge 11/28/2003 Care Teams Clarifier Operator Helper Relationship Specialty Start Date End Date Moy Hassan DO [address] [place] [address] PCP - General Family Medicine 11/09/18 documented as of this encounter
--- OUTSIDE RECORDS SUMMARY | 2023-11-12 10:35 | External Medical Summary | Summary of Care ---
Author Name Unknown Organization [facility] Address [address] [place] [address] Phone [phone] Care Team Providers Care Fueler Name Role Phone Koby Luis Dionne PEDRO Primary Care Provider [phone] Reason for Visit * Reason Comments Dosage Adjustment Via Phone (anticoag Cl inic) Encounter Details Date Type Department Care Team (Latest Contact Info) Description 11/10/2023 4:45 PM EST Anticoagulation Pharmacy Call Center [address] [place] [address] Ccp, [facility] 58 60 [place] [address] Paroxysmal atrial fibrillation (HCC)*; H/O traumatic subdural hematoma Allergies Active Allergy Reactions Criticality Noted Date Comments Amoxicillin 10/21/2022 Sulfamethoxazole-Trimethop rim Rash 10/24/2016 Sulfamethoxazole 11/28/2020 Tetanus Toxoid Other (Please comment) Medium 02/17/2001 Large local reaction ISKRISTASHANIQUE H 02/17/2001 11:46 am pt has large reddened [...] Sulfate 325 (65 Fe) MG Oral Tablet (FEOSOL)Indications:Anem ia, unspecified type Take 1 Tab by mouth daily with breakfast. 30 Tab 0 07/31/20 20 Active Probiotic 250 MG Oral CapsuleIndications:Recur rent UTI Take 250 mg by mouth daily. 30 Cap 11 11/30/19 21 Active Diclofenac Sodium 1 % External Gel [...] Active Fluticasone Propionate 50 MCG/ACT Nasal Suspension (Flonase)Indications:Chr onic rhinitis 2 SPRAYS IN EACH NOSTRIL AT [...] Apply to scab 20 g 3 10/05/19 Active Vitamin D 50 MCG (2000 UT) Oral Capsule Take 2,000 Units by [...] MOUTH EVERY MORNING THREE TIMES WEEKLY ON MON,WED,FRI *HEART HEALTH* 12 Tablet 5 03/23/20 Active Metamucil Smooth Texture 58.6 % Oral Powder (Psyllium)Indications:Lo ose stools Take 1 Scoop by mouth in [...] 10 07/18/20 Active Melatonin 3 MG Oral CapsuleIndications:Insom vimal, unspecified type Take 1 Capsule by mouth [...] Active Warfarin Sodium 1 MG Oral Tablet (Coumadin)Indications:Pa roxysmal atrial fibrillation (HCC) Take up to one and one-half tablets by mouth daily as directed by anticoagulation clinic (THREE TIMES A WEEK ON WED, , ) 20 Tablet 1 08/24/20 23 Active Warfarin Sodium 2 MG Oral Tablet (Coumadin)Indications:Pa roxysmal atrial fibrillation (HCC) Take as directed by anticoagulation clinic (1 TAB BY MOUTH FOUR TIMES A WEEK ON WED, WED, WED, SAT) 16 Tablet 4 08/24/20 23 Active PreserVision AREDS 2 Oral Capsule Take 1 Capsule by mouth in the morning and 1 Capsule before bedtime. 60 Capsule 3 09/06/20 23 Active Omeprazole 20 MG Oral Capsule Delayed Release (PriLOSEC)Indications:Ga stroesophageal reflux disease without esophagitis Take 1 Capsule [...] 24 Active Loratadine 10 MG Oral Tablet (Claritin)Indications:No n-seasonal allergic rhinitis, unspecified trigger Take 1 Tablet by mouth every other day. 15 Tablet 3 10/29/19 24 Active documented as of this encounter (statuses as [...] on file documented as of this encounter Progress Notes * Alaina Rodriguez, [facility] - 11/10/2023 9:04 AM EST Images from the original note were not included. Medication Therapy Disease Management - Anticoagulation Patient: Radha Cardenas | : 1935 Fpc/SNF Patient Anticoagulation Encounter Patient is a resident at: [facility] -- Fax sent to number listed above detailing plan of care below. Please notify clinic with any unusual brusing or bleeding, N/V/D, medication or diet changes or anymissed or extra doses of Coumadin. Subjective Patient-Reported Symptoms: Objective Current Warfarin Dose As of 11/10/2023 Warfarin maintenance plan: 2 mg (1 mg x 2) every Wed, Wed; 1.5 mg (1 mg x 1.5) all other days INR Result As of 11/10/2023 INR goal: 2.0-3.0 INR used for dosin.3 (11/10/2023) Assessment & Plan Warfarin Plan As of 11/10/2023 Full warfarin instructions: 11/10: Hold; 11/11: Hold; Otherwise 2 mg every Wed, Wed; 1.5 mg all otherdays Next INR check: 11/24/2023 Repeat PT/INR in 2 week(s) Weekly dose: not changed Additional Dosing Information: Description Amiodarone decreased 12/10/2020 Alaina Rodriguez [facility] Clinical Pharmacist 11/10/2023, 9:05 AM documented in this encounter Plan of Treatment Upcoming Encounters Date Type Department Care Team (Late st Contact Info) Description 11/17/2023 8:00 AM EST Laboratory [facility] [place] [facility] [address] [address] 11/18/2023 2:00 PM EST Immunization/Injecti on Hematology/Oncology Treatment, [place] [address] [place] [address] [facility] [address] 12/01/2023 8:00 AM EDT Laboratory [facility] [place] [facility] [address] [place] [address] 12/02/2023 1:45 PM EDT Immunization/Injecti on Hematology/Oncology Treatment, [place] [address] [place] [phone] Nurse, Med 4 200 [facility] [place] [address] 12/06/2023 1:00 PM EDT Office Visit Ophthalmology, [facility] 132 [place] [address] Wu Varma, DO [address] [place] [address] 12/15/2023 8:00 AM EDT Laboratory Lab [place] [facility] [address] [place] [address] [place] [address] [place] [address] 12/16/2023 1:45 PM EDT Immunization/Injecti on Hematology/Oncology Treatment, [address] [phone] Nurse, Med 4 200 [facility] [place] [address] 12/29/2023 8:00 AM EDT Laboratory [facility] [place] [facility] [place] [address] [place] [address] [facility] [address] [place] [address] 12/30/2023 1:45 PM EDT Immunization/Injecti on Hematology/Oncology Treatment, [place] [address] [place] [phone] Nurse, Med 4 200 [facility] [place] [address] 01/05/2024 3:40 PM EDT Office Visit Family Practice [facility] 200 [facility] [place], [place] [address] Luis Whalen, 200 [facility] [place], [place] [address] 03/16/2024 10:45 AM EDT Office Visit Hematology/Oncology [facility] 200 [facility] [place] [phone] Juventino Sarah MD 200 [facility] [place], [place] [address] Health Maintenance Due Date Last Done Comments [...] 06/03/2018, Additional history exists Phosphate 02/04/2024 02/03/2023, 07/0 05/2020, 08/11/2019, Additional history exists Diabetic Eye [...] history of other diseases of circulatory system documented in this encounter Advance Directives Documents on File Type Date Recorded Patient Director Of Rotc Expl anation Power of Undergraduate Internship 11/28/2003 Care Teams Fueler Relationship Specialty Start Date End Date Luis Whalen DO [address] [place] [address] PCP - General Family Medicine 11/09/18 documented as of this encounter"
--- OUTSIDE RECORDS SUMMARY | 2023-11-12 10:35 | External Medical Summary | Summary of Care ---
Author Name Unknown Organization [facility] Address [address] [place] [address] Phone [phone] Care Team Providers Care Entry Level Financial Analyst Name Role Phone Luis Whalen DO Primary Care Provider [phone] Encounter Details Date Type Department Care Team (Late st Contact Info) Description 11/10/2023 Orders Only [facility] [place] [facility] [address] [place], [place] [id number] Luis Whalen DO [address] [place] [address] Atrial fibrillation, unspecified type (HCC)* Allergies Active Allergy Reactions Criticality Noted Date [...] IN GRAMS MAY NEED CLARIFIED 100 g 12/18/19 22 Active Docusate Sodium 100 MG Oral Capsule (Colace) Take by mouth 1 Capsule before bedtime. 30 Capsule 12/27/19 22 Active Acetaminophen 500 MG Oral [...] evening. Apply to scab 20 g 3 01/16/20 23 Active Vitamin D 50 MCG (2000 UT) [...] MOUTH EVERY MORNING THREE TIMES WEEKLY ON WED,WED,WED *HEART HEALTH* 12 Tablet 5 03/23/20 Active [...] TIMES A WEEK ON WED, WED, WED, WED) 16 Tablet 4 08/24/20 23 Active PreserVision [...] on file documented as of this encounter Plan of Treatment Upcoming Encounters Date Type Department Care Team (Late st Contact Info) Description 11/10/2023 4:45 PM EST Anticoagulation Pharmacy Call Center [address] [place] [address] [facility] 58 60 [facility] [place] [address] 11/17/2023 8:00 AM EST Laboratory [facility] [place] [facility] [address] [place] [address] [place] [facility] [address] [place] [address] 11/18/2023 2:00 PM EST Immunization/Injection Hematology/Oncology Treatment, [place] [address] [place] [phone] Nurse, Med 4 [address] [place] [address] 12/01/2023 8:00 AM EDT Laboratory Lab [place] [facility] [address] [place] [address] [place] [facility] [address] [place] [address] 12/02/2023 1:45 PM EDT Immunization/Injection Hematology/Oncology Treatment, [address] [phone] Nurse, Med 4 [address] [place] [address] 12/06/2023 1:00 PM EDT Office Visit Ophthalmology, [facility] 132 [place] [address] Wu Varma T, DO [address] [place] [address] 12/15/2023 8:00 AM EDT Laboratory Lab [place] [facility] [address] [place] [address] [place] [facility] [address] [place] [address] 12/16/2023 1:45 PM EDT Immunization/Injection Hematology/Oncology Treatment, [address] [phone] Nurse, Med 4 [address] [place] [address] 12/29/2023 8:00 AM EDT Laboratory Lab [place] [facility] [address] [place] [address] [place], [facility] [place] [address] [place] [address] 12/30/2023 1:45 PM EDT Immunization/Injection Hematology/Oncology Treatment, [place] [address] [place] [phone] Nurse, Med 4 200 [facility] [place] [address] 01/05/2024 3:40 PM EDT Office Visit Family Practice [facility] 200 [facility] [place] [address] Luis Whalen, DO 200 [facility] [place] [address] 03/16/2024 10:45 AM EDT Office Visit Hematology/Oncology [facility] 200 [facility] [place] [phone] Juventino Sarah MD 200 [place] [address] Scheduled Orders Name Type Priority Associated Diagnoses Orde r Schedule PT INR Lab Routine Atrial fibrillation, unspecified type (HCC) Expected: 11/10/2023, Expires: 11/10/2024 Health Maintenance Due Date Last Done Comments [...] as of this encounter Visit Diagnoses Diagnosis Atrial fibrillation, unspecified type (HCC)- Primary documented in this encounter Advance Directives Documents on File Type Date Recorded 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
--- OUTSIDE RECORDS SUMMARY | 2023-11-12 10:35 | External Medical Summary ---
Author Name Unknown Address Unknown Organization K0G:[facility] [place] [address] [place] [address] Laboratory Report Ordering Provider Test Date Status MOYMO 11/10/2023 06:25:00 Final Warfarin Therapy
INR: 2 .0-3.0 conventional anticoagulation
INR: 2.5- 3.5 high intensity anticoagulation Observation Date Value Abnormality Reference (Units ) Status PT 11/10/2023 06:25:00 41.7 Above high normal 11 .6-15.2 (seconds) Final INR 11/10/2023 06:25:00 4.3 Above high normal 0. 8-1.2 Final Performing Location [facility] [place] [address] [place] [address]
--- OUTSIDE RECORDS SUMMARY | 2023-11-12 10:35 | External Medical Summary | Summary of Care ---
Author Name Unknown Organization [facility] Address [address] [place] [facility] [place] [address] Phone [phone] Care Team Providers Care Building Construction Contractor Name Role Phone Luis Whalen DO Primary Care Provider [phone] Reason for Visit * Reason Onset Date Comments Precert Future 11/04/2023 Aranesp Encounter Details Date Type Department Care Team (Late st Contact Info) Description 11/04/2023 Telephone Hematology/Oncology [facility] [place] [address] [place] [phone] Juventino Sarah MD [address] [facility] [address] Precert Future (Aranes) Allergies Active Allergy Reactions Criticality Noted Date Comments Amoxicillin 10/21/2022 Sulfamethoxazole-Trimethop rim Rash 10/24/2016 Sulfamethoxazole 11/28/2020 Tetanus Toxoid Other (Please comment) Medium 02/17/2001 Large local reaction ISANTONIASHANIQUE Garza H 02/17/2001 11:46 am pt has large reddened area , warm to touch on right Deltoid where she was given tetanus injection 1 week ago[address] Seen by Dr. Otero , felt it was areaction to tetanus, but gave a couple days of Tequin Tetracycline Rash Medium 06/28/2000 Trimethoprim 11/28/2020 documented as of this encounter (statuses as of 11/09/2023) Medications Medication Sig Dispensed Refills Start Date [...] as of this encounter (statuses as of 11/09/2023) Active Problems Problem Noted Date Diagnosed Date [...] as of this encounter (statuses as of 11/09/2023) Resolved Problems Problem Noted Date Diagnosed Date [...] as of this encounter (statuses as of 11/09/2023) Immunizations Name Administration Dates Next Due COVID-19 mRNA, LNP-s, No Pre serve, 2-Dose Series (Pfizer) 10/19/2020,09/28/2020 Pneumococcal Conjugate Vacc, 13 Valent (Prevnar) 07/26/2015 Pneumococcal Conjugate Vacci ne, 7 Valent 02/10/2001 Pneumococcal Polysaccharide PPV23 (Pneumovax) 03/26/2017,08/23/1991 RSV Vac., Bivalent, Perfusio n F, Pf,0.5 Ml (Abrysvo) 09/06/2023 Season Influenza, Quad, PF, Adjuvanted, 65+ Yrs, IM (FLUAD) 05/22/2020 Seasonal Influenza, PF, 6 M & above, IM , (FluLaval or Fluzone) 07/05/2017 Seasonal Influenza, Quadriva lent, No Preserve, IM 06/19/2016,07/26/2015 Seasonal Influenza, Split, I IV3, With Preserve, Inj 05/22/2014,06/22/2013,06/23/2012,05/22,07/15/2010,06/25/2009,06/26/20 08,06/20/2007,07/06/2006,07/07/2005,1 ,07/12/2003,07/12/2002,08/1706/18/2012 Seasonal Influenza, Trivalen t, Adjuvanted, 65+ yrs [...] as of this encounter Miscellaneous Notes * Addendum Note - Robert Dyer, RN - 11/09/2023 1:27 PM ESTAddended by: ROBERT DYER on: 11/09/2023 01:27 PM Modules accepted: Orders * Telephone Encounter - Robert Dyer RN - 11/09/2023 1:25 PM EST Referral entered for aranesp. Procrit plan discontinued. Scheduling: please change all future injection appt notes to state "aranesp". Thanks! * Telephone Encounter - Donato High RN - 11/04/2023 3:11 PM EST Received Aranesp orders. [place] plan built and routed for signature. Will await auth. Pt to continue with Procrit until auth is obtained per Dr. Sarah. documented in this encounter Plan of Treatment Upcoming Encounters Date Type Department Care Team (Late st Contact Info) Description 11/10/2023 4:45 PM EST Anticoagulation Pharmacy Call Center [address] [place] [address] [facility] 58 [address] [place] [address] 11/17/2023 8:00 AM EST Laboratory Lab [place] [facility] [address] [place] [address] [facility] [address] [place] [address] 11/18/2023 2:00 PM EST Immunization/Injection Hematology/Oncology Treatment, [place] [address] [place] [phone] Nurse, Med 4 [address] [facility] [address] 12/01/2023 8:00 AM EDT Laboratory Lab [place] [facility] [address] [place] [address] [facility] [address] [place] [address] 12/02/2023 1:45 PM EDT Immunization/Injection Hematology/Oncology Treatment, [address] [phone] Nurse, Med 4 [address] [place] [address] 12/06/2023 1:00 PM EDT Office Visit Ophthalmology, [facility] 132 [facility] [place] [address] Wu Varma, DO 16 [place] [address] 12/15/2023 8:00 AM EDT Laboratory Lab [place] [facility] [place] [address] [place] [address] [facility] [place] [address] [address] 12/16/2023 1:45 PM EDT Immunization/Injection Hematology/Oncology Treatment, [address] [phone] Nurse, Med 4 [address] [place] [address] 12/29/2023 8:00 AM EDT Laboratory Lab [place] [facility] [place] [address] [place] [address] [facility] [place] [address] [address] 12/30/2023 1:45 PM EDT Immunization/Injection Hematology/Oncology Treatment, [address] [phone] Nurse, Med 4 [address] [place] [address] 01/05/2024 3:40 PM EDT Office Visit Family Practice [facility] [place] 200 [facility] [place], [place] [address] Luis Whalen DO 200 [facility] [address] 03/16/2024 10:45 AM EDT Office Visit Hematology/Oncology [facility] [place] 200 [facility] [place] [phone] Juventino Sarah MD 200 [facility] [address] [place], [place] [address] Health Maintenance Due Date Last Done Comments [...] Not on filedocumented as of this encounter Advance Directives Documents on File Type Date Recorded Patient Vending Service Technician Expl anation Power of Family Practice Medical Doctor 11/28/2003 Care Teams Building Construction Contractor Relationship Specialty Start Date End Date Luis Whalen DO [address] [place] [address] PCP - General Family Medicine 11/09/18 documented as of this encounter
--- OUTSIDE RECORDS SUMMARY | 2023-11-12 10:35 | External Medical Summary | Summary of Care ---
Author Name Unknown Organization [facility] Address [address] [facility] [place] [address] Phone [phone] Care Team Providers Care Hard Metals Engraver Hand Name Role Phone Luis Whalen DO Primary Care Provider [phone] Reason for Visit * Reason Onset Date Comments Precert Future 11/04/2023 Aranesp Encounter Details Date Type Department Care Team (Late st Contact Info) Description 11/04/2023 Telephone Hematology/Oncology [facility] [place] [address] [place] [phone] Juventino Sarah MD [address] [facility] [address] Precert Future (Aranes) Allergies Active Allergy Reactions [...] encounter Miscellaneous Notes * Telephone Encounter - Erica Negron LPN - 11/09/2023 1:42 PM EST All appointment notes changed from procrit to aranesp * Addendum Note - Denice Dyer RN - 11/09/2023 1:27 PM ESTAddended by: DENICE DYER on: 11/09/2023 01:27 PM Modules accepted: Orders * Telephone Encounter - Denice Dyer RN - 11/09/2023 1:25 PM EST Referral entered for aranesp. Procrit plan discontinued. Scheduling: please change all future injection appt notes to state "aranesp". Thanks! * Telephone Encounter - Donato High RN - 11/04/2023 3:11 PM EST Received Aranesp orders. [place] plan built and routed for signature. Will await auth. Pt to continue with Procrit until auth is obtained per Dr. Sarah. documented in this encounter Plan of Treatment Upcoming Encounters Date Type Department Care Team (Late st Contact Info) Description 11/10/2023 4:45 PM EST Anticoagulation Pharmacy Call Center [address] [place] [address] [facility] 58 [address] [place] [address] 11/17/2023 8:00 AM EST Laboratory Lab [place] [facility] [address] [place] [address] [place], [place] [address] [place] [address] 11/18/2023 2:00 PM EST Immunization/Injection Hematology/Oncology Treatment, [place] 200 [facility] [place] [facility] [place] [phone] Nurse, Med 4 [address] [place], [place] [address] 12/01/2023 8:00 AM EDT Laboratory Lab [place] [facility] [address] [place] [address] [facility] [place] [address] [place] [address] 12/02/2023 1:45 PM EDT Immunization/Injection Hematology/Oncology Treatment, [place] 200 [place] [phone] Nurse, Med 4 [address] [place] [address] 12/06/2023 1:00 PM EDT Office Visit Ophthalmology, [facility] 132 [facility] [place] [address] Wu Varma, DO 16 [place] [address] 12/15/2023 8:00 AM EDT Laboratory Lab [place] [address] [address] [facility] [place] [address] [address] 12/16/2023 1:45 PM EDT Immunization/Injection Hematology/Oncology Treatment, [address] [place] [phone] Nurse, Med 4 [address] [place], [place] [address] 12/29/2023 8:00 AM EDT Laboratory Lab [place] [facility] [address] [place] [address] [facility] [place] [facility] [address] [place] [address] 12/30/2023 1:45 PM EDT Immunization/Injection Hematology/Oncology Treatment, [place] [address] [facility] [place] [phone] Nurse, Med 4 200 [facility] [place], [place] [address] 01/05/2024 3:40 PM EDT Office Visit Family Practice [facility] [place] 200 [facility] [place], [place] [address] Luis Whalen, 200 [facility] [place] [address] 03/16/2024 10:45 AM EDT Office Visit Hematology/Oncology [facility] [place] 200 [facility] [place], [place] [phone] Juventino Sarah MD 200 [facility] [place], [place] [address] Health Maintenance Due Date Last Done Comments [...] Documents on File Type Date Recorded Patient Management Instructor Expl anation Power of Contract Programmer 11/28/2003 Care Teams Hard Metals Engraver Hand Relationship Specialty Start Date End Date Luis Whalen DO [address] [place] [address] PCP - General Family Medicine 11/09/18 documented as of this encounter
--- OUTSIDE RECORDS SUMMARY | 2023-11-12 10:36 | External Medical Summary | Summary of Care ---
Author Name Unknown Organization [facility] Address [address] [place] [address] Phone [phone] Care Team Providers Care Bearingizer Name Role Phone FernandoLuis bai Primary Care Provider [phone] Encounter Details Date Type Department Care Team (Late st Contact Info) Description 11/04/2023 Orders Only Hematology/Oncology [facility] Cl[place]ilde [place] [address] [place] [address] Juventino Sarah MD [address] [place] [address] Allergies Active Allergy Reactions Criticality Noted Date [...] as of this encounter (statuses as of 11/04/2023) Medications Medication Sig Dispensed Refills Start Date [...] 10/05/19 23 Active Vitamin D 50 MCG (2000 [...] TIMES A WEEK ON MON, WED, WED, WED) 16 Tablet 4 08/24/20 [...] as of this encounter (statuses as of 11/04/2023) Active Problems Problem Noted Date Diagnosed Date [...] as of this encounter (statuses as of 11/04/2023) Resolved Problems Problem Noted Date Diagnosed Date [...] as of this encounter (statuses as of 11/04/2023) Immunizations Name Administration Dates Next Due COVID-19 [...] EST Anticoagulation Pharmacy Call Center WB [phone] [facility] [place] [address] [facility] 58 60 [facility] [place] [address] 11/17/2023 8:00 AM EST Laboratory Lab Mobile Phlebotomy [facility] [address] [place] [address] [facility], [facility] [place] [address] [place] [address] 11/18/2023 2:00 PM EST Immunization/Injection Hematology/Oncology Treatment, [place] [address] [place] [address] Nurse, Med 4 [address] [place] [address] 12/01/2023 8:00 AM EDT Laboratory Lab Mobile Phlebotomy [facility] [address] [place] [address] [facility], [facility] [place] [address] [place] [address] 12/02/2023 1:45 PM EDT Immunization/Injection Hematology/Oncology Treatment, [address] [place] [address] Nurse, Med 4 [address] [place] [address] 12/06/2023 1:00 PM EDT Office Visit Ophthalmology, [facility] 132 [facility] [place] [address] Wu Varma T, DO [address] [place] [address] 12/15/2023 8:00 AM EDT Laboratory Lab Mobile Phlebotomy [facility] [address] [place] [address] [facility] Mobile [place] [address] [place] [address] 12/16/2023 1:45 PM EDT Immunization/Injection Hematology/Oncology Treatment, [address] [place] [address] Nurse, Med 4 [address] [place] [address] 12/29/2023 8:00 AM EDT Laboratory Lab Mobile Phlebotomy [facility] [address] [place] [address] Village, [facility] [place] [address] [place] [address] 12/30/2023 1:45 PM EDT Immunization/Injection Hematology/Oncology Treatment, [place] 200 [facility] [place] [address] Nurse, Med 4 200 [facility] [place] [address] 01/05/2024 3:40 PM EDT Office Visit Family Practice [facility] 200 [facility] [place] [address] Luis Whalen, DO 200 [facility] [place] [address] 03/16/2024 10:45 AM EDT Office Visit Hematology/Oncology [facility] 200 [facility] [place] [address] Juventino Sarah MD 200 [facility] [place] [address] Health Maintenance Due Date Last Done Comments Hepatitis B (1 of 3 - Risk 3-dose series) 1994 Zoster Vaccines (2 of 3) 09/24/2008 07/30/2008 Nephrology Referral 10/05/2014 10/05/2013 Albumin/Creatinine Ratio 04/06/202004/06/2 019, 06/08/2018, 07/01/2017, Additional history exists Diabetic Foot Exam 03/20/2021 03/20/2020, 0 03/20/2019, 02/28/2018, Additional history exists COVID-19 Vaccine ( season) 2023 10/19/2020, 09/28/2020 Influenza Vaccine (FLU shot) (#1) 2023 07/04/2021, 06/18/2021, 05/22/2020, Additional history exists Depression Screening 10/21/2023 10/21/2022 PTH 02/04/2024 02/03/2023, 0 05/2020, 06/03/2018, Additional history exists Phosphate 02/04/2024 02/03/2023, 0 05/2020, 08/11/2019, Additional history exists Diabetic Eye [...] Documents on File Type Date Recorded 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
--- OUTSIDE RECORDS SUMMARY | 2023-11-12 10:36 | External Medical Summary ---
Author Name Unknown Address Unknown Organization K0G:[facility] [address] [place] [address] Laboratory Report Ordering Provider Test Date Status MO WINTER 11/04/2023 06:15:00 Final Observation Date Value Abnormality Reference (Units ) Status WBC, Total 11/04/2023 06:15:00 5.10 4.00-10.8 0 (K/uL) Final RBC 11/04/2023 06:15:00 3.18 3.85-5.15 (M/uL) Final Hemoglobin 11/04/2023 06:15:00 8.2 Below low normal 12 .0-15.3 (g/dL) Final HCT 11/04/2023 06:15:00 27.9 Below low normal 36. 0-45.2 (%) Final MCV 11/04/2023 06:15:00 87.7 81.5-97.5 (fL) Final MCH 11/04/2023 06:15:00 25.8 27.0-34.0 (pg) Final MCHC 11/04/2023 06:15:00 29.4 32.0-36.0 (g/dL) Final RDW 11/04/2023 06:15:00 18.0 11.5-15.5 (%) Final Platelets 11/04/2023 06:15:00 119 Below low normal 140 -400 (K/uL) Final MPV 11/04/2023 06:15:00 10.5 6.6-11.1 ( fL) Final Performing Location [facility] [address] [place] [address]
--- OUTSIDE RECORDS SUMMARY | 2023-11-12 10:36 | External Medical Summary | Summary of Care ---
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) Procedures WA INJ RETACRIT NON-ESRD USE WA EPOETIN JJ, NON-ESRD Juventino Sarah MD [address] [place] [address] Anc Hem/Onc Lia M[place] DEPT CLOSED - 08/03/[address] [place] [address] [phone] Referral ID Status Reason Start Date Expiration Date V isits Requested Visits Authorized [id number] Authorized 09/30/2021 09/19/2099 99 99 Encounter Details Date Type Department Care Team (Latest Contact Info) Description 11/04/2023 1:45 PM EST Immunization/ Injection Hematology/Oncology Treatment, [place] [address] [place] [address] Nurse, Med [address] [place] [address] [address] 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 90 Capsule 3 02/02/20 23 Active Sertraline HCl 25 MG Oral Tablet (Zoloft)Indications:CATA (generalized anxiety disorder) Take 1 Tablet by mouth in the morning. 30 Tablet 11 02/04/20 23 Active Warfarin Sodium 3 MG Oral Tablet (Coumadin) TAKE 1/2 TAB (1.5MG) BY MOUTH Daily 5 days per week. Current regimen; 2mg MF, 1.5mg all other days 60 Tablet 1 02/06/20 23 Active Levothyroxine Sodium 112 MCG Oral Tablet (Levoxyl) Take 1 Tablet by mouth in the morning. (at least 30 min prior to breakfast or other meds). 90 Tablet 3 02/06/20 23 Active Aspirin 81 MG Oral Tablet Chewable (Aspirin Low Dose) 1 TAB BY MOUTH EVERY MORNING THREE TIMES WEEKLY ON MON,WED,FRI *HEART HEALTH* 12 Tablet 5 03/23/20 23 Active Metamucil Smooth Texture 58.6 % Oral Powder (Psyllium)Indications:Lo ose stools Take 1 Scoop by mouth in the morning and 1 Scoop at noon and 1 Scoop before bedtime. One scoop in 8 ounces of water, up to three times a day.. 660 g 3 05/17/20 23 Active Additional Information Patient taking differently:1 Scoop OralDaily(AM), (No instructions reported), Reported on 08/05/2023 B-12-SL 1000 MCG Sublingual Tablet Sublingual (Cyanocobalamin) Place 1,000 mcg under the tongue in the morning. 90 Tablet 3 06/07/20 23 Active Metoprolol Tartrate 25 MG Oral Tablet (Lopressor) TAKE 1/2 TAB (12.5MG) BY MOUTH TWICE DAILY 30 Tablet 10 07/18/20 23 Active Melatonin 3 MG Oral CapsuleIndications:Insom vimal, unspecified type Take 1 Capsule by mouth at bedtime. 30 Capsule 11 07/19/20 23 Active GenTeal Tears Night-Time Ophthalmic Ointment Instill [...] on file documented as of this encounter Nursing Notes * Ariana Long LPN - 11/04/2023 2:05 PM EST Pt arrived for procrit injection. Hgb 8.2. Administered in RAFAEL. Pt tolerated well. BP WNL. To return in 2 weeks. Pt saw MD-see notes. Discharged in stable condition. documented in this encounter Plan of Treatment Upcoming Encounters Date Type Department Care Team (Late st Contact Info) Description 11/10/2023 4:45 PM EST Anticoagulation Pharmacy Call Center 58[address] [place] [address] [facility], [facility] 58 [address] [place] [address] 11/17/2023 8:00 AM EST Laboratory Lab Mobile Phlebotomy [facility] [address] [place] [address] [facility] Mobile [facility] [place] [address] [place] [address] 11/18/2023 2:00 PM EST Immunization/Injection Hematology/Oncology Treatment, [place] [address] [place] [address] Nurse, Med [address] [place] [address] 12/01/2023 8:00 AM EDT Laboratory Lab Mobile Phlebotomy [facility] [address] [place] [address] [facility] Mobile [place] [address] [place] [address] 12/02/2023 1:45 PM EDT Immunization/Injection Hematology/Oncology Treatment, [place] 200 [facility] [place] [address] Nurse, Med 4 [address] [place] [address] 12/06/2023 1:00 PM EDT Office Visit Ophthalmology, [facility] 132 [facility] [place] [address] Wu Varma, DO 16 [place] [address] 12/15/2023 8:00 AM EDT Laboratory Lab Mobile Phlebotomy [facility] [address] [place] [address] [facility], [facility] [address] [place] [address] 12/16/2023 1:45 PM EDT Immunization/Injection [facility]ematology[facility]Oncology Treatment, [place] 200 [facility] [address] Nurse, Med 4 [address] [place] [address] 12/29/2023 8:00 AM EDT Laboratory Lab Mobile Phlebotomy [facility] [address] [place] [address] [facility], [facility] [address] [place] [address] 12/30/2023 1:45 PM EDT Immunization/Injection Hematology/Oncology Treatment, [place] 200 [facility] [place] [address] Nurse, Med [address] [place] [address] 01/05/2024 3:40 PM EDT Office Visit Family Practice [facility] [place] [address] [place] [address] Luis Whalen, DO [address] [place] [address] 03/16/2024 10:45 AM EDT Office Visit Hematology/Oncology [place]ia M[place] [address] [place] [address] Juventino Sarah MD [address] [place], [place] [address] Health Maintenance Due Date Last Done Comments [...] as of this encounter Visit Diagnoses Diagnosis 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)- Primary documented in this encounter Administered Medications Inactive Administered Medications - up to 3 most recent administrations Medication Order MAR Action [place] [address] UNIT/ML inj 20,000 Units 20,000 Units, Subcutaneous, ONCE, On Sarah 11/04/23 at 1400, For 1 dose, Total dose 60,000 units Given 11/04/2023 1:39 PM EST 20,000 [place] [address] UNIT/ML inj 40,000 Units 40,000 Units, Subcutaneous, ONCE, On Sarah 11/04/23 at 1400, For 1 dose, Total dose 60,000 units Given 11/04/2023 1:38 PM EST 40,000 Units Arm Left Upper documented in this encounter Advance Directives Documents on File Type Date Recorded 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
--- OUTSIDE RECORDS SUMMARY | 2023-11-12 10:36 | External Medical Summary ---
Author Name Unknown Address Unknown Organization [facility] [address] [place] [address] Laboratory Report Ordering Provider Test Date Status MO WINTER 11/04/2023 06:15:00 Final Observation Date Value Abnormality Reference (Units ) Status SYNC LEUKOCYTES IN BLOOD BY AUTOMATED COUNT 11/04/2023 06:15:00 5.10 4.00-10.80 (K/uL) Final Segs 11/04/2023 06:15:00 46.6 40.0-75.0 (%) Final Lymphs % 11/04/2023 06:15:00 42.0 18.0-42.0 (%) Final Monos 11/04/2023 06:15:00 8.4 1.0-11.0 (%) Final Eosinophils 11/04/2023 06:15:00 2.4 0.0-6.0 (%) Final Basos 11/04/2023 06:15:00 0.6 0.0-2.0 (%) Final Absolute Segs 11/04/2023 06:15:00 2.38 1.80-7.70 (K/uL) Final Lymphs, absolute 11/04/2023 06:15:00 2.14 1.00-4.80 (K/ul) Final Monos, Abs 11/04/2023 06:15:00 0.43 0.00-1.10 (K/uL) Final Eos, Abs 11/04/2023 06:15:00 0.12 0.00-0.70 (K/uL) Final Basos, Abs 11/04/2023 06:15:00 0.03 0.00-0.20 (K/uL) Final Performing Location [facility] [address] [place] [address]
--- OUTSIDE RECORDS SUMMARY | 2023-11-12 10:36 | External Medical Summary | Summary of Care ---
Author Name Unknown Organization [facility] Address [address] [place] [address] Phone [phone] Care Team Providers Care Direct Care Provider Name Role Phone Moy Hassan DO Primary Care Provider [phone] Reason for Visit * Reason Comments eRx-Medication Refill Encounter Details Date Type Department Care Team (Late st Contact Info) Description 10/28/2023 Refill Family Practice [facility] 200 [facility] [place] [address] Moy Hassan DO 200 [facility] [place] [address] Non-seasonal allergic rhinitis, unspecified trigger Allergies Active Allergy Reactions Criticality Noted Date [...] as of this encounter (statuses as of 10/29/2023) Medications Medication Sig Dispensed Refills Start Date End Date Status GLUCOMETER DIABETES CARE KITIndications:DM type 2, goal A1c below 7 as directed 1 0 003 Active LANCETS MISCIndications:DM type 2, goal A1c below 7 as directed 50 5 003 Active ONE TOUCH ULTRA DEVIIndications:DM type 2, goal A1c below 7 tests tid 1 0 007 Active ONETOUCH ULTRA SYSTEM W/DEVICE KITIndications:DM type 2, goal A1c below 7 tid 1 0 009 Active ONETOUCH LANCETS MISC Use one lancet 3 times daily. DX:E11.9 300 Each 3 017 Active Glucose Blood (ONETOUCH ULTRA BLUE) STRP Use one strip 3 times daily. 300 Strip 3 020 Active Ferrous Sulfate 325 (65 Fe) MG Oral Tablet (FEOSOL)Indications:Ane ladan, unspecified type Take 1 Tab by mouth daily with breakfast. 30 Tab 0 Active Probiotic 250 MG Oral CapsuleIndications:Recu rrent UTI Take 250 mg by mouth daily. 30 Cap 11 021 Active Diclofenac Sodium 1 % External Gel (Voltaren) APPLY TO JOINT TOPICALLY EVERY 12 HOURS NEEDED FOR PAIN -- DOSE IN GRAMS MAY NEED CLARIFIED 100 g 4 Active Docusate Sodium 100 MG Oral Capsule (Colace) Take by mouth 1 Capsule before bedtime. 30 Capsule 5 022 Active Acetaminophen 500 MG Oral Tablet (Tylenol) Take by mouth 2 Tablets every 8 hours as needed for Fever >38C(100.5F) or Pain, Moderate. 100 Tablet 5 022 Active Fluticasone Propionate 50 MCG/ACT Nasal Suspension (Flonase)Indications:Ch ronic rhinitis 2 SPRAYS IN EACH NOSTRIL AT BEDTIME NEEDED FOR CONGESTION 48 g 1 022 Active Anti-Diarrheal 2 MG Oral Tablet (Loperamide) ONE TAB BY MOUTH DAILY BUT HOLD IF CONSTIPATION. 30 Tablet 4 022 Active Additional Information Patient taking differently: 2 mg Oral TID PRN, Diarrhea, Reported on 08/05/2023 Calmoseptine 0.44-20.6 % External Ointment (Menthol-Zinc Oxide) Apply topically to affected area every evening. Apply to scab 20 g 3 023 Active Vitamin D 50 MCG (2000 UT) Oral Capsule Take 2,000 Units by mouth in the morning. 90 Capsule 3 023 Active Sertraline HCl 25 MG Oral Tablet (Zoloft)Indications:CATA (generalized anxiety disorder) Take 1 Tablet by mouth in the morning. 30 Tablet 11 023 Active Warfarin Sodium 3 MG Oral Tablet (Coumadin) TAKE 1/2 TAB (1.5MG) BY MOUTH Daily 5 days per week. Current regimen; 2mg MF, 1.5mg all other days 60 Tablet 1 023 Active Levothyroxine Sodium 112 MCG Oral Tablet (Levoxyl) Take 1 Tablet by mouth in the morning. (at least 30 min prior to breakfast or other meds). 90 Tablet 3 023 Active Aspirin 81 MG Oral Tablet Chewable (Aspirin Low Dose) 1 TAB BY MOUTH EVERY MORNING THREE TIMES WEEKLY ON MON,WED,FRI *HEART HEALTH* 12 Tablet 5 023 Active Metamucil Smooth Texture 58.6 % Oral Powder (Psyllium)Indications:L oose stools Take 1 Scoop by mouth in the morning and 1 Scoop at noon and 1 Scoop before bedtime. One scoop in 8 ounces of water, up to three times a day.. 660 g 3 023 Active Additional Information Patient taking differently:1 Scoop OralDaily(AM), (No instructions reported), Reported on 08/05/2023 B-12-SL 1000 MCG Sublingual Tablet Sublingual (Cyanocobalamin) Place 1,000 mcg under the tongue in the morning. 90 Tablet 3 023 Active Metoprolol Tartrate 25 MG Oral Tablet (Lopressor) TAKE 1/2 TAB (12.5MG) BY MOUTH TWICE DAILY 30 Tablet 10 023 Active Melatonin 3 MG Oral CapsuleIndications:Inso mnia, unspecified type Take 1 Capsule by mouth at bedtime. 30 Capsule 11 023 Active GenTeal Tears Night-Time Ophthalmic Ointment Instill [...] ON WED, , ) 20 Tablet 1 023 Active Warfarin Sodium 2 MG Oral Tablet (Coumadin)Indications:P aroxysmal atrial fibrillation (HCC) Take as directed by anticoagulation clinic (1 TAB BY MOUTH FOUR TIMES A WEEK ON WED, WED, WED, WED) 16 Tablet 4 023 Active PreserVision AREDS 2 Oral Capsule Take 1 Capsule by mouth in the morning and 1 Capsule before bedtime. 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 1 hour before the first meal of the day. 30 Capsule 5 023 Active Amiodarone HCl 200 MG Oral Tablet (Cordarone) Take 1 Tablet by mouth in the morning. 30 Tablet 11 024 Active Rosuvastatin Calcium 10 MG Oral TabletIndications:Pure hypercholesterolemia 1 TAB BY MOUTH AT BEDTIME FOR HYPERLIPIDEMIA 90 Tablet 3 024 Active Azithromycin 500 MG Oral Tablet (Zithromax) Take 1 pill before dental appointments. 3 Tablet 0 024 Active glipiZIDE ER 5 MG Oral Tablet Extended Release 24 Hour TAKE 2 TABLETS BY MOUTH IN THE MORNING. - PER PREVIOUS ORDER: TAKE 30-MINUTES BEFORE MEAL 180 Tablet 1 024 Active Loratadine 10 MG Oral Tablet (Claritin)Indications:N on-seasonal allergic rhinitis, unspecified trigger Take 1 Tablet by mouth every other day. 15 Tablet 3 024 Active Loratadine 10 MG Oral Tablet (Claritin)Indications:N on-seasonal allergic rhinitis, unspecified trigger Take 1 Tablet by mouth in the morning. 30 Tablet 5 023 2023 Discontinued documented as of this encounter (statuses as of 10/29/2023) Active Problems Problem Noted Date Diagnosed Date [...] as of this encounter (statuses as of 10/29/2023) Resolved Problems Problem Noted Date Diagnosed Date [...] as of this encounter (statuses as of 10/29/2023) Immunizations Name Administration Dates Next Due COVID-19 mRNA, LNP-s, No Pre serve, 2-Dose Series ([employer]) 10/19/2020,09/28/2020 Pneumococcal Conjugate Vacc, 13 Valent (Prevnar) [...] 2:52 PM EDT Sexual Orientation Straight 01/18/2019 2 :52 PM EDT Job Start Date Occupation Industry Not on file Not on file Not on file documented as of this encounter Miscellaneous Notes * Telephone Encounter - Keith Tang [facility] - 10/29/2023 2:53 PM EST Contacted [facility]. Informed nurse of Loratadine dose change to every other day. Nurse is agreeable and understanding. Thanks, Keith Tang, PharmD Clinical Pharmacist [facility] [phone] 10/29/2023, 2:55 PM * Telephone Encounter - Moy Hassan DO - 10/29/2023 12:26 PM ESTSigned Prescriptions: Disp Refills Loratadine 10 MG Oral Tablet (Claritin) 15 Tab*3 Sig: Take 1 Tablet by mouth every other day. Authorizing Provider: MOY HASSAN * Telephone Encounter - Keith Tang [facility] - 10/29/2023 10:12 AM EST Pending Prescriptions: Disp Refills Loratadine 10 MG Oral Tablet (Claritin) 15 Tab*3 Sig: Take 1 Tablet by mouth every other day. * Telephone Encounter - Keith Tang [facility] - 10/29/2023 10:09 AM EST Patient is requesting a refill on loratadine 10mg. Patient is currently taking 1 tablet daily. Serum creatinine: 1.1 mg/dL (H) 09/10/23 0545 Estimated creatinine clearance: 27.3 mL/min (A) Per clinical pharm, CrCL <30ml/min, recommended dose is 10mg every OTHER day. Pending Prescriptions: Disp Refills Loratadine 10 MG Oral Tablet (Claritin) [*15 Tab*3 Sig: Take 1 Tablet by mouth every other day. Please approve if appropriate and agreeable. Thanks, Keith Tang, PharmD Clinical Pharmacist [facility]pharmacy) [phone] 10/29/2023, 10:11 AM documented in this encounter Plan of Treatment Upcoming Encounters Date Type Department Care Team (Late st Contact Info) Description 11/04/2023 1:15 PM EST Office Visit Hematology/Oncology [facility] 200 [facility] [place] [address] Juventino Sarah MD 200 [facility] [place] [address] 11/04/2023 1:45 PM EST Immunization/Injection Hematology/Oncology Treatment, [place] [address] [facility] [place] [address] Nurse, Med [address] [facility] [place] [address] 11/10/2023 4:45 PM EST Anticoagulation Pharmacy Call Center WB [address]60 [facility] [place] [address] [facility] 58 60 [facility] [place] [address] 12/06/2023 1:00 PM EDT Office Visit Ophthalmology, [facility] 132 [facility] [place] [address] Wu Varma T, DO [address] [place], [place] [address] [address] 01/05/2024 3:40 PM EDT Office Visit Family Practice [place] [address] [place] [address] Moy Hassan DO [address] [facility] [place] [address] Health Maintenance Due Date Last Done Comments [...] 09/06/2023, 01/18, 05/15/2022, Additional history exists Hgb 10/20/2024 10/20/2023, 09/20, 09/29/2023, Additional history exists Pneumococcal Vaccine: 65+ Years Completed 03/26/2017, 07/26/2015, 09/20/2000, Additional history exists GARDASIL-HPV IMMUNIZATION SERIES Aged Out No longer eligible based on patient's age to complete this topic MENINGOCOCCAL (MENACTRA/MENVEO) Aged Out No longer eligible based on patient's age to complete this topic documented as of this encounter Medical Devices Not on filedocumented as of this encounter Visit Diagnoses Diagnosis Non-seasonal allergic rhinitis, unspecified trigger documented in this encounter Advance Directives Documents on File Type Date Recorded 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
--- OUTSIDE RECORDS SUMMARY | 2023-11-12 10:36 | External Medical Summary | Summary of Care ---
Author Name Unknown Organization [facility] Address [address] [place] [address] Phone [phone] Care Team Providers Care Fish Housekeeper Name Role Phone Moy Hassan DO Primary Care Provider [phone] Reason for Visit * Reason Comments eRx-Medication Refill Encounter Details Date Type Department Care Team (Late st Contact Info) Description 10/28/2023 Refill Family Practice [facility] [address] [facility] [place] [address] Moy Hassan DO [address] [facility] [place] [address] Non-seasonal allergic rhinitis, unspecified trigger Allergies Active [...] mRNA, LNP-s, No Pre serve, 2-Dose Series (Ewire[employer]) 10/19/2020,09/28/2020 Pneumococcal Conjugate Vacc, 13 Valent (Prevnar) [...] HASSAN * Telephone Encounter - Keith Tang [facility] - 10/29/2023 10:12 AM EST Pending Prescriptions: Disp Refills Loratadine 10 MG Oral Tablet (Claritin) 15 Tab*3 Sig: Take 1 Tablet by mouth every other day. * Telephone Encounter - Keith Tang [facility] - 10/29/2023 10:09 AM EST Patient is [...] PharmD Clinical Pharmacist [facility] [employer]) [phone] 10/29/2023, 10:11 AM documented in this encounter Plan of Treatment Upcoming Encounters Date Type Department Care Team (Late st Contact Info) Description 11/04/2023 1:15 PM EST Office Visit Hematology/Oncology [facility] [address] [place] [address] Juventino Sarah MD [address] [place] [address] 11/04/2023 1:45 PM EST Immunization/Injection Hematology/Oncology Treatment, [place] [address] [facility] [place] [address] Nurse, Med 4 [address] [place] [address] 11/10/2023 4:45 PM EST Anticoagulation Pharmacy Call Center [phone] [place] [address] Ccps, [facility] [address] [facility] [address] 12/06/2023 1:00 PM EDT Office Visit Ophthalmology, [facility] [address] [facility] [place] [address] Wu Varma, DO [address] [place] [address] 01/05/2024 3:40 PM EDT Office Visit Family Practice [facility] [address] [place] [address] Moy Hassan, DO [address] [facility] [place] [address] Health Maintenance Due Date Last Done Comments [...] Documents on File Type Date Recorded Patient Applications Administrator Expl anation Power of Air Valve Repairer 11/28/2003 Care Teams Fish Housekeeper Relationship Specialty Start Date End Date Moy Hassan DO [address] [place] [address] PCP - General Family Medicine 11/09/18 documented as of this encounter
--- OUTSIDE RECORDS SUMMARY | 2023-11-12 10:36 | External Medical Summary | Summary of Care ---
Author Name Unknown Organization [facility] Address [address] [place] [address] Phone [phone] Care Team Providers Care Foreign Exchange Position Clerk Name Role Phone Luis Whalen DO Primary Care Provider [phone] Reason for Visit * Reason Onset Date Comments Med Request 10/28/2023 Encounter Details Date Type Department Care Team (Late st Contact Info) Description 10/28/2023 Telephone Family Practice [facility] [place] [address] [facility] [place] [address] Luis Whalen DO [address] [facility] [place] [address] Med Request Allergies Active Allergy Reactions Criticality Noted Date [...] as of this encounter (statuses as of 10/28/2023) Medications Medication Sig Dispensed Refills Start Date [...] 07/31/20 20 Active Probiotic 250 MG Oral CapsuleIndications:Recu rrent [...] evening. Apply to scab 20 g 3 16/20 23 Active Vitamin D 50 MCG (2000 UT) Oral Capsule Take 2,000 Units by mouth in the morning. 90 Capsule 02/02/20 Active Sertraline HCl 25 MG Oral Tablet (Zoloft)Indications:CATA (generalized anxiety disorder) Take 1 Tablet by mouth in the morning. 30 Tablet 02/04/20 Active Warfarin Sodium 3 MG Oral Tablet (Coumadin) TAKE 1/2 TAB (1.5MG) BY MOUTH Daily 5 days per week. Current regimen; 2mg MF, 1.5mg all other days 60 Tablet 1 02/06/20 Active Levothyroxine Sodium 112 MCG Oral Tablet (Levoxyl) Take 1 Tablet by mouth in the morning. (at least 30 min prior to breakfast or other meds). 90 Tablet 02/06/20 Active Aspirin 81 MG Oral Tablet Chewable (Aspirin Low Dose) 1 TAB BY MOUTH EVERY MORNING THREE TIMES WEEKLY ON MON,WED,FRI *HEART HEALTH* 12 Tablet 03/23/20 Active Loratadine 10 MG Oral Tablet (Claritin)Indications:N on-seasonal allergic rhinitis, unspecified trigger Take 1 Tablet by mouth in the morning. 30 Tablet 5 05/17/20 Active Metamucil Smooth Texture 58.6 % Oral Powder (Psyllium)Indications:L oose stools Take 1 Scoop by mouth in the morning and 1 Scoop at noon and 1 Scoop before bedtime. One scoop in 8 ounces of water, up to three times a day.. 660 g 05/17/20 Active Additional Information Patient taking differently:1 Scoop OralDaily(AM), (No instructions reported), Reported on 08/05/2023 B-12-SL 1000 MCG Sublingual Tablet Sublingual (Cyanocobalamin) Place 1,000 mcg under the tongue in the morning. 90 Tablet 3 06/07/20 Active Metoprolol Tartrate 25 MG Oral Tablet (Lopressor) TAKE 1/2 TAB (12.5MG) BY MOUTH TWICE DAILY 30 Tablet 07/18/20 Active Melatonin 3 MG Oral CapsuleIndications:Inso [...] MEAL 180 Tablet 1 10/28/19 24 Active glipiZIDE ER 5 MG Oral Tablet Extended Release 24 Hour TAKE 2 TABLETS BY MOUTH IN THE MORNING. - PER PREVIOUS ORDER: TAKE 30-MINUTES BEFORE MEAL 180 Tablet 1 04/05/20 23 024 Discontin ued(Refil l) documented as of this encounter (statuses as of 10/28/2023) Active Problems Problem Noted Date Diagnosed Date [...] as of this encounter (statuses as of 10/28/2023) Resolved Problems Problem Noted Date Diagnosed Date [...] as of this encounter (statuses as of 10/28/2023) Immunizations Name Administration Dates Next Due COVID-19 mRNA, LNP-s, No Pre serve, 2-Dose Series (TitanFile) 10/19/2020,09/28/2020 Pneumococcal Conjugate Vacc, 13 Valent (Prevnar) [...] encounter Miscellaneous Notes * Telephone Encounter - Uzma Aceves LPN - 10/28/2023 1:37 PM EST Pending Prescriptions: Disp Refills glipiZIDE ER 5 MG Oral Tablet Extended Re*180 Ta*1 Sig: TAKE 2 TABLETS BY MOUTH IN THE MORNING. - PER PREVIOUS ORDER: TAKE 30-MINUTES BEFORE MEAL Last Visit: 09/06/2023 (in office), 10/29/2020 (telemedicine) Next Visit: 01/05/2024 Last date the medication was ordered: 04/05/2023 Patient Active Problem List Diagnosis Code ADVANCE DIRECTIVE INFORMATION Actinic keratosis L57.0 History of MRSA infection Z86.14 Type 2 diabetes mellitus with hemoglobin A1c goal of less than 8.0% ([facility]) E11.9 Acquired hypothyroidism E03.9 Essential hypertension with goal blood pressure less than 140/90 I10 Pure hypercholesterolemia E78.00 Statin intolerance Z78.9 Paroxysmal atrial fibrillation (HCC) I48.0 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, without long-term current use of insulin ([facility]) E11.22, N18.4 Hypertensive kidney disease with chronic kidney disease stage IV ([facility]) I12.9, N18.4 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 Anemia D64.9 Warfarin anticoagulation Z79.01 Abnormality of gait R26.9 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 ([facility]) N18.4, D63.1 History of 2019 novel coronavirus disease (COVID-19) Z86.16 Protein-calorie malnutrition (HCC) E46 Recurrent UTI N39.0 Labs: Lab Results Component Value Date/Time CREATININE - [facility] 1.1 (H) 09/10/2023 05:45 AM CREATININE - [facility] 1.3 (H) 07/26/2020 11:54 AM CREATININE, RANDOM URINE - [facility] 104 04/06/2019 02:20 PM CREATININE-OUTSIDE LAB 1.56 (A) 04/03/2022 12:00 AM Lab Results Component Value Date/Time POTASSIUM 4.1 11/09/1996 09:20 AM POTASSIUM - [facility] 4.6 09/10/2023 05:45 AM POTASSIUM - [facility] 4.5 07/26/2020 11:54 AM POTASSIUM-OUTSIDE LAB 4.4 04/03/2022 12:00 AM Lab Results Component Value Date/Time TSH - [facility] 3.68 09/06/2023 01:48 PM TSH - [facility] 0.86 07/26/2020 11:54 AM Lab Results Component Value Date/Time LDL (DIRECT MEASURE)-OUTSIDE LAB 101 03/21/2014 12:00 AM LDL CHOLESTEROL (CALCULATED) - [facility] 20 05/15/2022 02:26 PM LDL CHOLESTEROL (CALCULATED) - [facility] 54 03/28/2020 11:41 AM LDL CHOLESTEROL (CALCULATED) - [facility] UNINTERPRETABLE RESULT 09/08/2018 04:31 PM LDL CHOLESTEROL (DIRECT MEASURE) - [facility] 91 09/08/2018 04:31 PM LDL CHOLESTEROL (DIRECT MEASURE) - [facility] NOT APPLICABLE 08/19/2017 08:43 AM LDL CHOLESTEROL (DIRECT MEASURE) - [facility] 97 04/07/2010 08:49 AM LDL CHOLESTEROL (DIRECT MEASURE) - [facility] 91 03/20/2009 09:14 AM Lab Results Component Value Date/Time ALT - [facility] 35 09/10/2023 05:45 AM ALT - [facility] 14 07/26/2020 11:54 AM Hemoglobin AIC Results: Lab Results Component Value Date/Time HEMOGLOBIN A1C 5.7 11/09/1996 09:20 AM HEMOGLOBIN A1C - [facility] 6.6 (H) 09/06/2023 01:48 PM HEMOGLOBIN A1C - [facility] 7.6 (H) 02/03/2023 12:47 PM HEMOGLOBIN A1C - [facility] 6.9 (H) 10/21/2022 06:10 AM HEMOGLOBIN A1C - [facility] 7.7 (H) 03/28/2020 11:41 AM HEMOGLOBIN A1C - [facility] 6.8 (H) 08/11/2019 12:55 PM HEMOGLOBIN A1C - [facility] 6.8 (H) 04/06/2019 02:12 PM documented in this encounter Plan of Treatment Upcoming Encounters Date Type Department Care Team (Late st Contact Info) Description 11/04/2023 1:15 PM EST Office Visit Hematology/Oncology [facility] [place] [address] [place] [address] Juventino Sarah MD [address] [place] [address] 11/04/2023 1:45 PM EST Immunization/Injection Hematology/Oncology Treatment, [place] [address] [place] [address] Nurse, Med 4 [address] [place] [address] 11/10/2023 4:45 PM EST Anticoagulation Pharmacy Call Center [phone] [place] [address] [address], 

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
--- OUTSIDE RECORDS SUMMARY | 2023-11-12 10:36 | External Medical Summary | Summary of Care ---
Author Name Unknown Organization [facility] Address [address] [place] [address] Phone [phone] Care Team Providers Care Cartography Professor Name Role Phone Luis Whalen DO Primary Care Provider [phone] Encounter Details Date Type Department Care Team (Late st Contact Info) Description 11/04/2023 Orders Only Lab Mobile Phlebotomy [facility] [address] [place], [place] [id number] Luis Whalen DO [address] [place] [address] Kidney disease, chronic, stage IV (GFR 15-29 ml/min) ([facility])* Allergies Active Allergy Reactions Criticality Noted Date [...] every evening. Apply to scab 20 g 10/05/19 Active Vitamin D 50 MCG (2000 [...] the tongue in the morning. 90 Tablet 06/07/20 Active Metoprolol Tartrate 25 MG Oral [...] 11/04/2023 1:15 PM EST Office Visit Hematology/Oncology [place] [facility] [place] [address] [place] [address] Juventino Sarah MD [address] [place] [address] 11/04/2023 1:45 PM EST Immunization/Injection Hematology/Oncology Treatment, [place] [address] [place] [address] Nurse, Med 4 200 [facility] [place] [address] 11/10/2023 4:45 PM EST Anticoagulation Pharmacy Call Center [place] [address] [place] [address] Ccps, [facility] [place] [address] 60 [facility] [place] [address] 12/06/2023 1:00 PM EDT Office Visit Ophthalmology, [facility] 132 [facility] [place] [address] Wu Varma, DO 16 [place] [address] 01/05/2024 3:40 PM EDT Office Visit Family Practice [facility] [place] 200 [facility] [place] [address] Luis Whalen, DO 200 [facility] [place] [address] Scheduled Orders Name Type Priority Associated Diagnoses Orde r Schedule CBC WITH WBC DIFFERENTIAL Lab Routine Kidney disease, chronic, stage IV (GFR 15-29 ml/min) (HCC) Expected: 11/04/2023, Expires: 11/04/2024 Health Maintenance Due Date Last Done Comments [...] as of this encounter Visit Diagnoses Diagnosis Kidney disease, chronic, stage IV (GFR 15-29 ml/min) (HCC)- Primary Chronic kidney disease, Stage IV (severe) documented in this encounter Advance Directives Documents on File Type Date Recorded 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
--- OUTSIDE RECORDS SUMMARY | 2023-11-12 10:36 | External Medical Summary | Summary of Care ---
Author Name Unknown Organization [facility] Address [address] [place] [address] Phone [phone] Care Team Providers Care State Highway Police Officer Name Role Phone Lius Whalen DO Primary Care Provider [phone] Reason for Visit * Reason Onset Date Comments Precert Future 11/04/2023 Aranesp Encounter Details Date Type Department Care Team (Late st Contact Info) Description 11/04/2023 Telephone Hematology/Oncology [facility] [place] [address] [place] [address] Juventino Sarah MD [address] [place] [address] Precert Future (Aranesp) Allergies Active Allergy Reactions Criticality Noted Date Comments Amoxicillin 10/21/2022 Sulfamethoxazole-Trimethop rim Rash 10/24/2016 Sulfamethoxazole 11/28/2020 Tetanus Toxoid Other (Please comment) Medium 02/17/2001 Large local reaction ISKRISTA SHANIQUE H 02/17/2001 11:46 am pt has large [...] encounter Miscellaneous Notes * Telephone Encounter - Donato High RN - 11/04/2023 3:11 PM EST Received Aranesp orders. Hendrum plan built and routed for signature. Will await auth. Pt to continue with Procrit until auth is obtained per Dr. Sarah. documented in this encounter Plan of Treatment Upcoming Encounters Date Type Department Care Team (Late st Contact Info) Description 11/10/2023 4:45 PM EST Anticoagulation Pharmacy Call Center [address] [place] [address] Ccps, [facility] 58 60 [facility] [place] [address] 11/17/2023 8:00 AM EST Laboratory Lab Mobile Ph[facility]bot[facility] [address], [place] [id number] [facility] [address] [place], [place] [id number] 11/18/2023 2:00 PM EST Immunization/Injection Hematology/Oncology Treatment, [place] [address] [place] [address] Nurse, Med 4 [address] [place] [address] 12/01/2023 8:00 AM EDT Laboratory Lab Mobile Phlebotomy [facility] [address], [place] [phone] [facility] [address] [place] [address] 12/02/2023 1:45 PM EDT Immunization/Injection Hematology/Oncology Treatment, [place] [address] [place] [address] Nurse, Med 4 [address] [place] [address] 12/06/2023 1:00 PM EDT [facility] 132 [facility] [place] [address] Wu Varma T, DO [address] [place], [place] [phone] 12/15/2023 8:00 AM EDT Laboratory Lab Mobile Phlebotomy [facility] [address] [place] [address] [facility] [address] [place] [address] 12/16/2023 1:45 PM EDT Immunization/Injection Hematology/Oncology Treatment, [place] [address] [place] [address] Nurse, Med 4 [address] [place] [address] 12/29/2023 8:00 AM EDT Laboratory Lab Mobile Phlebotomy [facility] [address] [place] [address] [facility] [address] [place] [address] 12/30/2023 1:45 PM EDT Immunization/Injection Hematology/Oncology Treatment, [address] [place] [address] Nurse, Med 4 [address] [place] [address] 01/05/2024 3:40 PM EDT Office Visit Family Practice [facility] [place] [address] [place] [address] Luis Whalen DO 200 [facility] [place] [address] 03/16/2024 10:45 AM EDT Office Visit Hematology/Oncology [facility] [place] [address] [place] [address] Juventino Sarah MD 200 [facility] [place] [address] Health Maintenance Due Date Last Done Comments [...] Documents on File Type Date Recorded 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
--- OUTSIDE RECORDS SUMMARY | 2023-11-12 10:37 | External Medical Summary ---
Author Name Unknown Address Unknown Organization K0G:[facility] [address] [place] [address] Laboratory Report Ordering Provider Test Date Status VITA LI 10/20/2023 06:10:00 Final Observation Date Value Abnormality Reference (Units ) Status WBC, Total 10/20/2023 06:10:00 5.13 4.00-10.8 0 (K/uL) Final RBC 10/20/2023 06:10:00 3.07 3.85-5.15 (M/uL) Final Hemoglobin 10/20/2023 06:10:00 8.1 Below low normal 12 .0-15.3 (g/dL) Final HCT 10/20/2023 06:10:00 27.1 Below low normal 36. 0-45.2 (%) Final MCV 10/20/2023 06:10:00 88.3 81.5-97.5 (fL) Final MCH 10/20/2023 06:10:00 26.4 27.0-34.0 (pg) Final MCHC 10/20/2023 06:10:00 29.9 32.0-36.0 (g/dL) Final RDW 10/20/2023 06:10:00 18.3 11.5-15.5 (%) Final Platelets 10/20/2023 06:10:00 119 Below low normal 140 -400 (K/uL) Final MPV 10/20/2023 06:10:00 10.8 6.6-11.1 ( fL) Final Performing Location [facility] [place] [address] [place] [address]
--- OUTSIDE RECORDS SUMMARY | 2023-11-12 10:37 | External Medical Summary | Summary of Care ---
Author Name Unknown Organization [facility] Address [address] [place] [address] Phone [phone] Care Team Providers Care Underwriting Operations Manager Name Role Phone GayeLuis brody Dionne PEDRO Primary Care Provider [phone] Reason for Visit * Reason Comments Follow Up Encounter Details Date Type Department Care Team (Late st Contact Info) Description 10/18/2023 8:50 AM EST Office Visit Ophthalmology, [facility] [address] [place] [address] Wu Varma, 16 [place] [address] Senile ectropion of both lower eyelids* Allergies Active Allergy Reactions Criticality Noted Date Comments Amoxicillin 10/21/2022 Sulfamethoxazole-Trimethop rim Rash 10/24/2016 Sulfamethoxazole 11/28/2020 Tetanus Toxoid Other (Please comment) Medium 02/17/2001 Large local reaction ISSHANIQUE VELASCO H 02/17/2001 11:46 am pt has large reddened area , warm to touch on right Deltoid where she was given tetanus injection 1 week ago. Seen by Dr. Otero , felt it was areaction to tetanus, but gave a couple days of Tequin Tetracycline Rash Medium 06/28/2000 Trimethoprim 11/28/2020 documented as of this encounter (statuses as of 10/18/2023) Medications Medication Sig Dispensed Refills Start Date [...] MF, 1.5mg all other days 60 Tablet 02/06/20 Active Levothyroxine Sodium 112 MCG Oral Tablet (Levoxyl) Take 1 Tablet by mouth in the morning. (at least 30 min prior to breakfast or other meds). 90 Tablet 02/06/20 Active Aspirin 81 MG Oral Tablet Chewable (Aspirin Low Dose) 1 TAB BY MOUTH EVERY MORNING THREE TIMES WEEKLY ON MON,WED,FRI *HEART HEALTH* 12 Tablet 03/23/20 Active glipiZIDE ER 5 MG Oral Tablet Extended Release 24 Hour TAKE 2 TABLETS BY MOUTH IN THE MORNING. - PER PREVIOUS ORDER: TAKE 30-MINUTES BEFORE MEAL 180 Tablet 04/05/20 Active Loratadine 10 MG Oral Tablet (Claritin)Indications:No n-seasonal allergic rhinitis, unspecified trigger Take 1 Tablet by mouth in the morning. 30 Tablet 05/17/20 Active Metamucil Smooth Texture 58.6 % [...] the morning. 90 Tablet 3 06/07/20 Active Azithromycin 500 MG Oral Tablet (Zithromax) Take 1 pill before dental appointments. 3 Tablet 0 09/25/20 23 Active Metoprolol Tartrate 25 MG Oral [...] HYPERLIPIDEMIA 90 Tablet 3 10/12/19 24 Active Hospital, Clinic, or Other Facility Administered Medication Ordered Dose Route Frequency Start Date End Date Status Tobramycin-dexAMETHasone (Tobradex) ophthalmic ointmentIndications:Senile ectropion of both lower eyelids OU ONCE 10/18/2023 10/18/2023 Ended documented as of this encounter (statuses as of 10/18/2023) Active Problems Problem Noted Date Diagnosed Date [...] as of this encounter (statuses as of 10/18/2023) Resolved Problems Problem Noted Date Diagnosed Date [...] as of this encounter (statuses as of 10/18/2023) Immunizations Name Administration Dates Next Due COVID-19 [...] as of this encounter Progress Notes * Wu Varma DO - 10/18/2023 8:46 AM EST Radha Cardenas is a 88 year old female who returns for followup of ectropions right eye worse than left eye. Patient with a several month history of a red lower right eyelid treated with Maxitrol. A reported area of scabbing noted initial presentation that has taken a prolonged time to heal but it is slowly but surely healed. Recent left eye similar redness improved on its own. Not interested in surgical intervention. Steroid ointment used with resolution but recurrence off the ointment. Ophthalmology Past History: cataract extraction both eyes Ophthalmology Family History: none Ophthalmology ROS: Positive for red right eye recent left eye involved as well and no recent significant change in vision,no eye pain, redness, discharge,no diplopia Current Ophthalmic Medications: Tears drops and gel EXAM: Base Eye Exam Visual Acuity (Snellen - Linear) Right Left Dist sc 20/25 -1 20/25 -1 Tonometry (Tonopen, 8:59 AM) Right Left Pressure 8 7 Pupils Shape React Right Irregular Minimal Left Round Minimal Slit Lamp and Fundus Exam Slit Lamp Exam Right Left Lids/Lashes slight recurring ectropion Normal Conjunctiva/Sclera White and quiet White and quiet Cornea Clear Clear Anterior Chamber Deep and quiet Deep and quiet Iris Round and reactive Round and reactive Lens Posterior chamber intraocular lens Posterior chamber intraocular lens IMPRESSION: 1. Ectropion RLL > LLL resolved with steroid ointment IOP fine PLAN: 1. steroid ointment at bedtime for 2 weeks then QOD at bedtime 2.6 week return 3. Discussed possibility of doing the surgical procedure in the office of a lateral tarsal strip toimprove the eyelid position. Patient reluctant to undergo any type of surgical correction. 4. Sooner p.r.n. Wu Varma DO documented in this encounter Nursing Notes * Nisha Huang TECH - 10/18/2023 8:44 AM EST Radha Cardenas is a 88 year old female who presents for Follow up. Last Visit: Visit date not found (in office), Visit date not found (telemedicine) She currently states no change in vision. Are you diabetic? Yes. Do you check your sugar daily? YES. Did not measure this morning. Last Hemoglobin A1C: Lab Results Component Value Date/Time HGBA1C 6.6 (H) 09/06/2023 01:48 PM HGBA1C 7.6 (H) 02/03/2023 12:47 PM HGBA1C 6.9 (H) 10/21/2022 06:10 AM HGBA1C 7.4 (A) 06/26/2020 12:00 AM HGBA1C 7.7 (H) 03/28/2020 11:41 AM HGBA1C 6.8 (H) 08/11/2019 12:55 PM HGBA1C 6.8 (H) 04/06/2019 02:12 PM HGBA1C 5.7 11/09/1996 09:20 AM Current Ophthalmic Medications: None [facility], IOP, current eyeglass Rx, and pupil check and dilation if needed can be found in ophth exam. documented in this encounter Plan of Treatment Upcoming Encounters Date Type Department Care Team (Late st Contact Info) Description 10/20/2023 4:45 PM EST Anticoagulation Pharmacy Call Center WB [address]60 [facility] [place] [address] [facility] 58 60 [facility] [place] [address] 10/21/2023 3:30 PM EST Immunization/Injection Hematology/Oncology Treatment, [place] [address] [place] [address] Nurse, Med [address] [place] [address] 11/04/2023 1:15 PM EST Office Visit Hematology/Oncology [facility] [place] [address] [place] [address] [address] Juventino Sarah MD [address] [place] [address] 11/04/2023 1:45 PM EST Immunization/Injection Hematology/Oncology Treatment, [place] [address] [place] [address] Nurse, Med 4 [address] [place] [address] 12/06/2023 1:00 PM EDT Office Visit Ophthalmology, [facility] 132 [facility] [place] [address] Wu Varma, DO [address] [place] [address] 01/05/2024 3:40 PM EDT Office Visit Family Practice [facility] [address] [place] [address] Luis Whalen, DO [address] [place] [address] Health Maintenance Due Date Last Done Comments [...] 09/06/2023, 01/18, 05/15/2022, Additional history exists Hgb 10/06/2024 10/06/2023, 09/20, 09/22/2023, Additional history exists Pneumococcal Vaccine: 65+ Years Completed 03/26/2017, 07/26/2015, 09/20/2000, Additional history exists GARDASIL-HPV IMMUNIZATION SERIES Aged Out No longer eligible based on patient's age to complete this topic MENINGOCOCCAL (MENACTRA/MENVEO) Aged Out No longer eligible based on patient's age to complete this topic documented as of this encounter Medical Devices Not on filedocumented as of this encounter Visit Diagnoses Diagnosis Senile ectropion of both lower eyelids- Primary documented in this encounter Administered Medications Inactive Administered Medications - up to 3 most recent administrations Medication Order MAR Action Action Date Dose Rate Site Tobramycin-dexAMETHasone (Tobradex) ophthalmic ointment Both eyes, ONCE, On 10/18/23 at 0945, For 1 dose Given 10/18/2023 9:14 AM EST documented in this encounter Advance Directives Documents on File Type Date Recorded Patient Inspector Line Expl anation Power of Engineer Of System Development 11/28/2003 Care Teams Underwriting Operations Manager Relationship Specialty Start Date End Date Luis Whalen DO [address] [place] [address] PCP - General Family Medicine 11/09/18 documented as of this encounter
--- OUTSIDE RECORDS SUMMARY | 2023-11-12 10:37 | External Medical Summary | Summary of Care ---
Author Name Unknown Organization [facility] Address [address] [place] [address] Phone [phone] Care Team Providers Care Ssds Mk 2 Advanced Operator Name Role Phone Koby Luis Dionne PEDRO Primary Care Provider [phone] Reason for Visit * Reason Comments Dosage Adjustment Via Phone (anticoag Cl inic) Encounter Details Date Type Department Care Team (Latest Contact Info) Description 10/20/2023 4:45 PM EST Anticoagulation Pharmacy Call Center [address] [place] [address] Ccps, [facility] 58 60 [place] [address] Paroxysmal atrial fibrillation (HCC)*; H/O traumatic subdural hematoma Allergies Active Allergy Reactions Criticality Noted Date Comments Amoxicillin 10/21/2022 Sulfamethoxazole-Trimethop rim Rash 10/24/2016 Sulfamethoxazole 11/28/2020 Tetanus Toxoid Other (Please comment) Medium 02/17/2001 Large local reaction ISANTONIAR SHANIQUE H 02/17/2001 11:46 am pt has large reddened area , warm to touch on right Deltoid where she was given tetanus injection 1 week ago. Seen by Dr. Otero , felt it was areaction to tetanus, but gave a couple days of Tequin Tetracycline Rash Medium 06/28/2000 Trimethoprim 11/28/2020 documented as of this encounter (statuses as of 10/20/2023) Medications Medication Sig Dispensed Refills Start Date [...] HYPERLIPIDEMIA 90 Tablet 3 10/12/19 24 Active documented as of this encounter (statuses as of 10/20/2023) Active Problems Problem Noted Date Diagnosed Date [...] as of this encounter (statuses as of 10/20/2023) Resolved Problems Problem Noted Date Diagnosed Date [...] as of this encounter (statuses as of 10/20/2023) Immunizations Name Administration Dates Next Due COVID-19 [...] this encounter Progress Notes * Alaina Rodriguez, [facility] - 10/20/2023 9:09 AM EST Medication Therapy Disease Management - Anticoagulation Patient: Radha Cardenas | : 1935 Long Term/SNF Patient Anticoagulation Encounter Patient is a resident at: [facility] [place] -- Fax sent to number listed above detailing plan of care below. Please notify clinic with any unusual brusing or bleeding, N/V/D, medication or diet changes or anymissed or extra doses of Coumadin. Subjective Patient-Reported Symptoms: Objective Current Warfarin Dose As of 10/20/2023 Warfarin maintenance plan: 2 mg (1 mg x 2) every Wed, Fri; 1.5 mg (1 mg x 1.5) all other days INR Result As of 10/20/2023 INR goal: 2.0-3.0 INR used for dosin.5 (10/20/2023) Assessment & Plan Warfarin Plan As of 10/20/2023 Full warfarin instructions: 2 mg every Wed, Fri; 1.5 mg all other days No change documented: Alaina Rodriguez RPh Next INR check: 11/10/2023 Repeat PT/INR in 3 week(s) Weekly dose: not changed Additional Dosing Information: Description Amiodarone decreased 12/10/2020 Alaina Rodriguez RPh Clinical Pharmacist 10/20/2023, 9:09 AM documented in this encounter Plan of Treatment Upcoming Encounters Date Type Department Care Team (Late st Contact Info) Description 10/21/2023 3:30 PM EST Immunization/Inje ction Hematology/[address], [address] [address] Nurse, Med 4 [address] [place] [address] 11/04/2023 1:15 PM EST Office Visit Hematology/Oncology [facility] [address] [place] [address] Juventino Sarah MD [address] [place] [address] 11/04/2023 1:45 PM EST Immunization/Inje ction Hematology/Oncology Treatment, [address] [address] Nurse, Med [address] [place], [place] [address] 12/06/2023 1:00 PM EDT Office Visit Ophthalmology, [facility] [address] [place] [address] Wu Varma, DO 16 [facility] [place] [address] 01/05/2024 3:40 PM EDT Office Visit Family Practice [facility] [place] [address] [place] [address] Luis Whalen, DO [address] [place], [place] [address] Health Maintenance Due Date Last Done Comments [...] File Type Date Recorded Patient Director Of Vocational Training Expl anation Power of Gold Stamper 11/28/2003 Care Teams Ssds Mk 2 Advanced Operator Relationship Specialty Start Date End Date Luis Whalen DO 200 [facility] [place], [place] [address] PCP - General Family Medicine 11/09/18 documented as of this encounter"
--- OUTSIDE RECORDS SUMMARY | 2023-11-12 10:37 | External Medical Summary ---
Author Name Unknown Address Unknown Organization K0G:[facility] [place] [address] [place] [address] Laboratory Report Ordering Provider Test Date Status VITA LI 10/20/2023 06:10:00 Final Standing order for pt/inr. < br/>Please draw pt/inr every 1 to 4 weeks as requested
Results to [facility]

Warfarin Therapy
INR: 2.0-3.0 conventional anticoagulation
INR: 2.5-3.5 high intensity anticoagulation Observation Date Value Abnormality Reference (Units ) Status PT 10/20/2023 06:10:00 27.4 Above high normal 11 .6-15.2 (seconds) Final INR 10/20/2023 06:10:00 2.5 Above high normal 0. 8-1.2 Final Performing Location [facility] [place] [facility] [address] [place] [address]
--- OUTSIDE RECORDS SUMMARY | 2023-11-12 10:37 | External Medical Summary | Summary of Care ---
Author Name Unknown Organization [facility] Address [address] [place] [address] Phone [phone] Care Team Providers Care Tire Center Manager Name Role Phone GayeLuis brody Dionne PEDRO Primary Care Provider [phone] Reason for Visit * Reason Comments Follow Up Encounter Details Date Type Department Care Team (Late st Contact Info) Description 10/18/2023 8:50 AM EST Office Visit Op[facility], [facility] [address] [place] [address] Wu Varma, 16 [place] [address] Senile ectropion of both lower [...] EST Anticoagulation Pharmacy Call Center WB [address] [facility] [place] [address] [facility] 58 60 [facility] [place] [address] 10/21/2023 3:30 PM EST Immunization/Injection Hematology/Oncology Treatment, [place] [address] [place] [address] Nurse, Med [address] [place] [address] 11/04/2023 1:15 PM EST Office Visit Hematology/Oncology [facility] [place] [address] [place] [address] Juventino Sarah MD [address] [place] [address] 11/04/2023 1:45 PM EST Immunization/Injection Hematology/Oncology Treatment, [place] [address] [place] [address] Nurse, Med 4 200 [facility] [place] [address] 12/06/2023 1:00 PM EDT Office Visit Ophthalmology, [facility] 132 [facility] [place] [address] Wu Varma, DO 16 [place] [address] 01/05/2024 3:40 PM EDT Office Visit Family Practice [facility] [address] [place] [address] Luis Whalen, DO 200 [facility] [place] [address] Health Maintenance Due Date Last Done Comments [...] Documents on File Type Date Recorded Patient Lobby Concierge Expl anation Power of Auto Bumper Mechanic 11/28/2003 Care Teams Tire Center Manager Relationship Specialty Start Date End Date Luis Whalen DO [address] [place] [address] PCP - General Family Medicine 11/09/18 documented as of this encounter
--- OUTSIDE RECORDS SUMMARY | 2023-11-12 10:37 | External Medical Summary | Summary of Care ---
Author Name Unknown Organization [facility] Address [address] [place] [address] Phone [phone] Care Team Providers Care Director River Restoration Name Role Phone Moy Hassan DO Primary Care Provider [phone] Reason for Visit * Reason Onset Date Comments Medication Refill 10/19/2023 Encounter Details Date Type Department Care Team (Late st Contact Info) Description 10/19/2023 Refill Family Practice [facility] [place] [address] [place] [address] Moy Hassan DO 200 [facility] [place] [address] Allergies Active Allergy Reactions Criticality Noted Date [...] 04/05/20 Active Loratadine 10 MG Oral Tablet (Claritin)Indications:N [...] appointments. 3 Tablet 0 10/20/19 24 Active Azithromycin 500 MG Oral Tablet (Zithromax) Take 1 pill before dental appointments. 3 Tablet 0 06/14/20 23 024 Discontin ued(Refil l) documented as [...] Telephone Encounter - Moy Hassan DO - 10/20/2023 12:32 PM ESTSigned Prescriptions: Disp Refills Azithromycin 500 MG Oral Tablet (Zithromax)3 Tabl*0 Sig: Take 1 pill before dental appointments. Authorizing Provider: MOY HASSAN * Telephone Encounter - AlecJazmine CPhT - 10/19/2023 3:43 PM EST Did you pend patient's preferred pharmacy and medication before forwarding?yes Pharmacy: [facility] OF [address] Pending Prescriptions: Disp Refills Azithromycin 500 MG Oral Tablet (Zithroma*3 Tabl*0 Sig: Take 1 pill before dental appointments. Last Visit: 09/06/2023 (in office), 10/29/2020 (telemedicine) Next Visit: 01/05/2024 If no future appointments scheduled, and last appointment is greater than a year ago, please schedule patient for a follow-up appointment Last date the medication was ordered: 06/14/2023 Is this request for a controlled substance?No [...] PM EST Anticoagulation Pharmacy Call Center [address] [place] [address] [facility] [address] [place] [address] Paroxysmal atrial fibrillation (HCC)*; H/O traumatic subdural hematoma 10/21/2023 3:30 PM EST Immunization/Injection Hematology/Oncolo gy [address], [address] [address] Nurse, Med 4 200 [facility] [place] [address] 11/04/2023 1:15 PM EST Office Visit Hematology/Oncolo gy [facility] 200 [facility] [place] [address] Juventino Sarah MD 200 [facility] [place] [address] 11/04/2023 1:45 PM EST Immunization/Injection Hematology[facility], [place] [facility] [address] Nurse, Med 4 200 [facility] [place] [address] 11/10/2023 4:45 PM EST Anticoagulation Pharmacy Call Center WB [address] [place] [place] [address] Ccps, [facility] 58 60 [facility] [place] [address] 12/06/2023 1:00 PM EDT Office Visit Ophthalmology, [facility] 132 [facility] [place] [address] Wu Varma, DO [address] [place] [address] 01/05/2024 3:40 PM EDT Office Visit Family Practice [facility] [address] [place] [address] Moy Hassan, DO 200 [facility] [place], [place] [address] Health Maintenance Due Date Last Done Comments Hepatitis B (1 of 3 - Risk 3-dose series) 1994 Zoster Vaccines (2 of 3) 09/24/2008 07/30/2008 Nephrology Referral 10/05/2014 10/05/2013 Albumin/Creatinine Ratio 04/06/2020 019, 06/08/2018, 07/01/2017, Additional history exists Diabetic Foot Exam 03/20/2021 03/20/2020, 0 03/20/2019, 02/28/2018, Additional history exists COVID-19 Vaccine (3 season) 2023 10/19/2020, 09/28/2020 Influenza Vaccine (FLU [...] Documents on File Type Date Recorded Patient Passenger Service Agent Expl anation Power of Chemical Milling Processor 11/28/2003 Care Teams Director River Restoration Relationship Specialty Start Date End Date Moy Hassan DO 200 [facility] [place] [address] PCP - General Family Medicine 11/09/18 documented as of this encounter
--- OUTSIDE RECORDS SUMMARY | 2023-11-12 10:37 | External Medical Summary | Summary of Care ---
Author Name Unknown Organization [facility] Address [address] [place] [place] [address] Phone [phone] Care Team Providers Care Sheep And Wheat Farmer Name Role Phone FernandoLuis bai Primary Care Provider [phone] Reason for Visit * Reason Comments Medication Administration Procrit. 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) Procedures ME INJ RETACRIT NON-ESRD USE ME EPOETIN JJ, NON-ESRD Juventino Sarah MD [address] [facility] [address] [place] [address] Anc Hem/Onc Lia Mabry DEPT CLOSED - 08/03/[address] [place] [phone] Referral ID Status Reason Start Date Expiration Date V isits Requested Visits Authorized [id number] Authorized 09/30/2021 09/19/2099 99 99 Encounter Details Date Type Department Care Team (Latest Contact Info) Description 10/21/2023 3:30 PM EST Immunization/ Injection Hematology/Oncology Treatment, [place] [address] [place] [address] Nurse, Med [address] [place] [address] Anemia due to stage 4 chronic kidney [...] as of this encounter (statuses as of 10/21/2023) Medications Medication Sig Dispensed Refills Start Date [...] 1 Capsule before bedtime. 30 Capsule 5 04/08/20 22 Active Acetaminophen 500 MG Oral Tablet (Tylenol) Take by mouth 2 Tablets every 8 hours as needed for Fever >38C(100.5F) or Pain, Moderate. 100 Tablet 12/27/19 Active Fluticasone Propionate 50 MCG/ACT Nasal Suspension (Flonase)Indications:Chr onic rhinitis 2 SPRAYS IN EACH NOSTRIL AT BEDTIME NEEDED FOR CONGESTION 48 g 1 03/14/20 Active Anti-Diarrheal 2 MG Oral Tablet (Loperamide) ONE TAB BY MOUTH DAILY BUT HOLD IF CONSTIPATION. 30 Tablet 4 03/27/20 22 Active Additional Information Patient taking differently: 2 mg Oral TID PRN, Diarrhea, Reported on 08/05/2023 Calmoseptine 0.44-20.6 % External Ointment (Menthol-Zinc Oxide) Apply topically to affected area every evening. Apply to scab 20 g 10/05/19 23 Active Vitamin D 50 MCG (2000 UT) Oral Capsule Take 2,000 Units by mouth in the morning. 90 Capsule 02/02/20 23 Active Sertraline HCl 25 MG Oral Tablet (Zoloft)Indications:CATA (generalized anxiety disorder) Take 1 Tablet by mouth in the morning. 30 Tablet 02/04/20 23 Active Warfarin Sodium 3 MG Oral Tablet (Coumadin) TAKE 1/2 TAB (1.5MG) BY MOUTH Daily 5 days per week. Current regimen; 2mg MF, 1.5mg all other days 60 Tablet 02/06/20 23 Active Levothyroxine Sodium 112 MCG Oral Tablet (Levoxyl) Take 1 Tablet by mouth in the morning. (at least 30 min prior to breakfast or other meds). 90 Tablet 02/06/20 23 Active Aspirin 81 MG Oral Tablet Chewable (Aspirin Low Dose) 1 TAB BY MOUTH EVERY MORNING THREE TIMES WEEKLY ON MON,WED,FRI *HEART HEALTH* 12 Tablet 03/23/20 23 Active glipiZIDE ER 5 MG Oral Tablet Extended Release 24 Hour TAKE 2 TABLETS BY MOUTH IN THE MORNING. - PER PREVIOUS ORDER: TAKE 30-MINUTES BEFORE MEAL 180 Tablet 04/05/20 23 Active Loratadine 10 MG Oral Tablet (Claritin)Indications:No n-seasonal allergic rhinitis, unspecified trigger Take 1 Tablet by mouth in the morning. 30 Tablet 05/17/20 23 Active Metamucil Smooth Texture 58.6 % [...] appointments. 3 Tablet 0 10/20/19 24 Active documented as of this encounter (statuses as of 10/21/2023) Active Problems Problem Noted Date Diagnosed Date [...] as of this encounter (statuses as of 10/21/2023) Resolved Problems Problem Noted Date Diagnosed Date [...] as of this encounter (statuses as of 10/21/2023) Immunizations Name Administration Dates Next Due COVID-19 [...] Sign Reading Time Taken Comments Blood Pressure 119/61 10/21/2023 3:39 PM EST Pulse 69 10/21/2023 3:39 PM EST Temperature - - Respiratory Rate - - Oxygen Saturation - - Inhaled Oxygen Concentration - - Weight - - Height - - Body Mass Index - - documented in this encounter Nursing Notes * Aurelia El RN - 10/21/2023 3:51 PM EST Chair 7. Patient arrived for procrit. Patient tolerated procedure well. Discharged in stable condition. documented in this encounter Plan of Treatment Upcoming Encounters Date Type Department Care Team (Late st Contact Info) Description 11/04/2023 1:15 PM EST Office Visit Hematology/Oncology [facility] 200 [facility] [place] [address] Juventino Sarah MD 200 [facility] [place] [address] 11/04/2023 1:45 PM EST Immunization/Injection Hematology/[facility]cology Treatment, [place] [facility] [address] Nurse, Med 4 200 [facility] [place] [address] 11/10/2023 4:45 PM EST Anticoagulation Pharmacy Call Center WB [address] [place] [address] [facility] 58 60 [facility] [place] [address] 12/06/2023 1:00 PM EDT Office Visit Ophthalmology, [facility] [address] [facility] [place] [address] Wu Varma, DO 16 [facility] [place] [address] 01/05/2024 3:40 PM EDT Office Visit Family Practice [facility] 200 [facility] [place] [address] Luis Whalen, DO 200 [facility] [place] [address] Health Maintenance Due Date Last Done Comments [...] Action [place] [address] UNIT/ML inj 20,000 Units 20,000 Units, Subcutaneous, ONCE, On Sarah 10/21/23 at 1615, For 1 dose, Total dose 60,000 units Given 10/21/2023 3:46 PM EST 20,000 [place] [address] UNIT/ML inj 40,000 Units 40,000 Units, Subcutaneous, ONCE, On Sarah 10/21/23 at 1615, For 1 dose, Total dose 60,000 units Given 10/21/2023 3:46 PM EST 40,000 Units Arm Left Upper documented in this encounter Advance Directives Documents on File Type Date Recorded Patient Marketing Copywriter Expl anation Power of Centrifuge Separator Operator 11/28/2003 Care Teams Sheep And Wheat Farmer Relationship Specialty Start Date End Date Luis Whalen DO [facility] [place] [address] PCP - General Family Medicine 11/09/18 documented as of this encounter
--- OUTSIDE RECORDS SUMMARY | 2023-11-12 10:37 | External Medical Summary ---
Author Name Unknown Address Unknown Organization [facility] [address] [place] [address] Laboratory Report Ordering Provider Test Date Status VITA LI 10/20/2023 06:10:00 Final Observation Date Value Abnormality Reference (Units ) Status SYNC LEUKOCYTES IN BLOOD BY AUTOMATED COUNT 10/20/2023 06:10:00 5.13 4.00-10.80 (K/uL) Final Segs 10/20/2023 06:10:00 52.2 40.0-75.0 (%) Final Lymphs % 10/20/2023 06:10:00 35.3 18.0-42.0 (%) Final Monos 10/20/2023 06:10:00 10.3 1.0-11.0 (%) Final Eosinophils 10/20/2023 06:10:00 1.8 0.0-6.0 (%) Final Basos 10/20/2023 06:10:00 0.4 0.0-2.0 (%) Final Absolute Segs 10/20/2023 06:10:00 2.68 1.80-7.70 (K/uL) Final Lymphs, absolute 10/20/2023 06:10:00 1.81 1.00-4.80 (K/ul) Final Monos, Abs 10/20/2023 06:10:00 0.53 0.00-1.10 (K/uL) Final Eos, Abs 10/20/2023 06:10:00 0.09 0.00-0.70 (K/uL) Final Basos, Abs 10/20/2023 06:10:00 0.02 0.00-0.20 (K/uL) Final Performing Location [facility] [address] [place] [address]
--- OUTSIDE RECORDS SUMMARY | 2023-11-12 10:37 | External Medical Summary | Summary of Care ---
Author Name Unknown Organization [facility] Address [address] [place] [address] Phone [phone] Care Team Providers Care Tenon Machine Operator Name Role Phone Luis Whalen Primary Care Provider [phone] Reason for Visit * Reason Onset Date Comments Medication Refill 10/08/2023 Encounter Details Date Type Department Care Team (Late st Contact Info) Description 10/08/2023 Refill Cardiology, [facility] [address] [facility] [place] [address] Kirti Bang MD [facility] [place] [address] Pure hypercholesterolemia Allergies Active Allergy Reactions Criticality Noted Date [...] as of this encounter (statuses as of 10/12/2023) Medications Medication Sig Dispensed Refills Start Date [...] g 10/05/19 Active Vitamin D 50 MCG (1999 UT) [...] in the morning. 90 Tablet 06/07/20 Active Azithromycin 500 MG Oral Tablet (Zithromax) Take 1 pill before dental appointments. 3 Tablet 0 06/14/20 Active Metoprolol Tartrate 25 MG Oral Tablet (Lopressor) TAKE 1/2 TAB (12.5MG) BY MOUTH TWICE DAILY 30 Tablet 10 07/18/20 23 Active Melatonin 3 MG Oral CapsuleIndications:Inso mnia, [...] HYPERLIPIDEMIA 90 Tablet 3 10/12/19 24 Active Rosuvastatin Calcium 10 MG Oral TabletIndications:Pure hypercholesterolemia 1 TAB BY MOUTH AT BEDTIME FOR HYPERLIPIDEMIA 90 Tablet 3 09/24/19 23 024 Discontin ued(Refil l) documented as of this encounter (statuses as of 10/12/2023) Active Problems Problem Noted Date Diagnosed Date [...] as of this encounter (statuses as of 10/12/2023) Resolved Problems Problem Noted Date Diagnosed Date [...] as of this encounter (statuses as of 10/12/2023) Immunizations Name Administration Dates Next Due COVID-19 mRNA, LNP-s, No Pre serve, 2-Dose Series (OptiWi-fi) 10/19/2020,09/28/2020 Pneumococcal Conjugate Vacc, 13 Valent (Prevnar) [...] encounter Miscellaneous Notes * Telephone Encounter - Kirti Bang MD - 10/12/2023 4:20 PM ESTSigned Prescriptions: Disp Refills Rosuvastatin Calcium 10 MG Oral Tablet 90 Tab*3 Si TAB BY MOUTH AT BEDTIME FOR HYPERLIPIDEMIAAuthorizing Provider: KIRTI BANG * Telephone Encounter - Kirti Bang MD - 10/12/2023 4:05 PM ESTSigned Prescriptions: Disp Refills Rosuvastatin Calcium 10 MG Oral Tablet 90 Tab*3 Si TAB BY MOUTH AT BEDTIME FOR HYPERLIPIDEMIA Authorizing Provider: KIRTI BANG * Telephone Encounter - Comfort Costa [facility] - 10/11/2023 3:50 PM ESTPending Prescriptions: Disp Refills Rosuvastatin Calcium 10 MG Oral Tablet 90 Tab*3 Si TAB BY MOUTH AT BEDTIME FOR HYPERLIPIDEMIA * Telephone Encounter - Comfort Costa [facility] - 10/11/2023 3:50 PM EST [facility] is not delegated to approve refills for medications from this specialty. Please approve if appropriate. Thanks, Comfort Costa, LiliaD Clinical Pharmacist [facility] ([facility]) ([facility] [phone] 10/11/2023 3:50 PM * Telephone Encounter - Francoise Felder CPhT - 10/11/2023 3:42 PM EST Pt requesting HIGH PRIORITY due to out of med Did you pend patient's preferred pharmacy and medication before forwarding?yes Pharmacy: [facility] OF [address] Pending Prescriptions: Disp Refills Rosuvastatin Calcium 10 MG Oral Tablet 90 Tab*3 Si TAB BY MOUTH AT BEDTIME FOR HYPERLIPIDEMIA Last Visit: 08/05/2023 (in office), 09/30/2020 (telemedicine) Next Visit: Visit date not found If no future appointments scheduled, and last appointment is greater than a year ago, please schedule patient for a follow-up appointment Last date the medication was ordered: 09/24/22 Is this request for a controlled substance?No [...] 11:41 AM HGBA1C 5.7 11/09/1996 09:20 AM * Telephone Encounter - Liseth Lubin [facility] - 10/11/2023 9:06 AM ESTPending Prescriptions: Disp Refills Rosuvastatin Calcium 10 MG Oral Tablet 90 Tab*3 Si TAB BY MOUTH AT BEDTIME FOR HYPERLIPIDEMIA * Telephone Encounter - Lizette Chacon [facility] - 10/08/2023 3:52 PM EST Pending Prescriptions: Disp Refills Rosuvastatin Calcium 10 MG Oral Tablet 90 Tab*3 Si TAB BY MOUTH AT BEDTIME FOR HYPERLIPIDEMIA * Telephone Encounter - Lizette Chacon [facility] - 10/08/2023 3:50 PM EST Managed by cardio - routing to appropriate pool. Thank you, Lizette Chacon, PharmD Clinical Pharmacist [facility] ([facility]) (formerly [facility]) 01/19/24 3:50 PM [phone] * Telephone Encounter - Farhad Lamar, butter production supervisor - 10/08/2023 3:24 PM EST Pt has been out of medication since yesterday. Did you pend patient's preferred pharmacy and medication before forwarding?yes Pharmacy: [facility] OF [address] Pending Prescriptions: Disp Refills Rosuvastatin Calcium 10 MG Oral Tablet 90 Tab*3 Si TAB BY MOUTH AT BEDTIME FOR HYPERLIPIDEMIA Last Visit: 09/06/2023 (in office), 10/29/2020 (telemedicine) Next Visit: 01/05/2024 If no future appointments scheduled, and last appointment is greater than a year ago, please schedule patient for a follow-up appointment Last date the medication was ordered: 09/24/2022 Is this request for a controlled substance?No [...] 10/18/2023 8:50 AM EST Office Visit Ophthalmology, [facility] 132 [facility] [place] [address] Wu Varma, DO 16 [place] [address] 10/20/2023 4:45 PM EST Anticoagulation Pharmacy Call Center [address] [facility] [place] [address] [facility] 58 60 [place] [address] 10/21/2023 3:30 PM EST Immunization/Injection Hematology/Oncology Treatment, [place] [facility] [address] Nurse, Med 4 [address] [place] [address] 11/04/2023 1:15 PM EST Office Visit Hematology/Oncology [facility] [place] [address] [place] [address] Juventino Sarah MD 200 [facility] [place] [address] 11/04/2023 1:45 PM EST Immunization/Injection Hematology/Oncology Treatment, [place] [facility] [address] Nurse, Med 4 [address] [place] [address] 01/05/2024 3:40 PM EDT Office Visit Family Practice Lia [facility] [place] 200 [facility] [place] [address] Luis Whalen DO 200 [facility] [place] [address] Health Maintenance Due Date Last Done Comments [...] as of this encounter Visit Diagnoses Diagnosis Pure hypercholesterolemia documented in this encounter Advance Directives Documents on File Type Date Recorded Patient Fast Food Fry Cook Expl anation Power of Certified Court Interpreter 11/28/2003 Care Teams Tenon Machine Operator Relationship Specialty Start Date End Date Luis Whalen DO [address] [place] [address] PCP - General Family Medicine 11/09/18 documented as of this encounter
--- OUTSIDE RECORDS SUMMARY | 2023-11-12 10:38 | External Medical Summary | Summary of Care ---
Author Name Unknown Organization [facility] Address [address] [place] [address] Phone [phone] Care Team Providers Care Ply Splicer Name Role Phone Luis Whalen Primary Care Provider [phone] Reason for Visit * Reason Onset Date Comments Test Results Lab 10/07/2023 Hgb Encounter Details Date Type Department Care Team (Late st Contact Info) Description 10/07/2023 Telephone Hematology/Oncology Treatment, [place] [address] [place] [address] Juventino Sarah MD [address] [place] [address] Test Results Lab (Hgb) Allergies Active Allergy Reactions Criticality Noted Date [...] as of this encounter (statuses as of 10/08/2023) Medications Medication Sig Dispensed Refills Start Date [...] Oral TID PRN, Diarrhea, Reported on 08/05/2023 Rosuvastatin Calcium 10 MG Oral TabletIndications:Pure hypercholesterolemia 1 TAB BY MOUTH AT BEDTIME FOR HYPERLIPIDEMIA 90 Tablet 3 09/24/19 23 Active Calmoseptine 0.44-20.6 % External Ointment (Menthol-Zinc Oxide) [...] tongue in the morning. 90 Tablet 3 09/18/20 23 Active Azithromycin 500 MG Oral Tablet (Zithromax) Take 1 pill before dental appointments. 3 Tablet 0 06/14/20 23 Active Metoprolol Tartrate 25 MG Oral [...] morning. 30 Tablet 11 09/28/19 24 Active documented as of this encounter (statuses as of 10/08/2023) Active Problems Problem Noted Date Diagnosed Date [...] as of this encounter (statuses as of 10/08/2023) Resolved Problems Problem Noted Date Diagnosed Date [...] as of this encounter (statuses as of 10/08/2023) Immunizations Name Administration Dates Next Due COVID-19 [...] encounter Miscellaneous Notes * Telephone Encounter - Denice Dyer RN - 10/08/2023 1:51 PM EST [place] adjusted. * Telephone Encounter - Juventino Sarah MD - 10/08/2023 1:49 PM EST [place] [address] units every other week and see how she does. * Telephone Encounter - Donato High RN - 10/07/2023 3:[address] Sarah- Pt is receiving Procrit injections 40,000 units every other week. Hgb has slowly been declining since, largest drop from 10.0>8.8 in August. documented in this encounter Plan of Treatment Upcoming Encounters Date Type Department Care Team (Late st Contact Info) Description 10/18/2023 8:50 AM EST Office Visit Ophthalmology, [facility] 132 [facility] [place] [address] Wu Varma, DO [address] [place] [address] 10/20/2023 4:45 PM EST Anticoagulation Pharmacy Call Center WB [address] [place] [address] [facility] 58 60 [facility] [address] 10/21/2023 3:30 PM EST Immunization/Injection Hematology/Oncology Treatment, [place] [address] [place] [address] Nurse, Med 4 [address] [place] [address] 11/04/2023 1:15 PM EST Office Visit Hematology/Oncology [facility] Clotilde [place] [address] [place] [address] Juventino Sarah MD 200 [facility] [place] [address] 11/04/2023 1:45 PM EST Immunization/Injection Hematology/Oncology Treatment, [place] [address] [facility] [address] [place], [place] [address] Nurse, Med 4 200 [facility] [place] [address] 01/05/2024 3:40 PM EDT Office Visit Family Practice [facility] 200 [facility] [place] [address] Luis Whalen DO 200 [facility] [place] [address] Health Maintenance Due Date Last Done Comments [...] Documents on File Type Date Recorded Patient Quality Rn Expl anation Power of Foreign Broadcast Specialist 11/28/2003 Care Teams Ply Splicer Relationship Specialty Start Date End Date Luis Whalen DO [address] [place] [address] PCP - General Family Medicine 11/09/18 documented as of this encounter
--- OUTSIDE RECORDS SUMMARY | 2023-11-12 10:38 | External Medical Summary | Summary of Care ---
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) Procedures [place] INJ RETACRIT NON-ESRD USE [place] EPOETIN JJ, NON-ESRD Juventino Sarah MD [address] [place] [address] Anc Hem/Onc Lia Mab[place] DEPT CLOSED - 08/03/[address] [place] [phone] Referral ID Status Reason Start Date Expiration Date V isits Requested Visits Authorized [id number] Authorized 09/30/2021 09/19/2099 99 99 Encounter Details Date Type Department Care Team (Latest Contact Info) Description 10/07/2023 4:00 PM EST Immunization/ Injection Hematology/Oncology Treatment, [place] [address] [place] [address] Clotilde Chair 8 Hem Onc [place] [address] [place] [phone] Anemia due to stage 4 chronic kidney [...] as of this encounter (statuses as of 10/07/2023) Medications Medication Sig Dispensed Refills Start Date [...] Capsule before bedtime. 30 Capsule 5 12/27/19 Active Acetaminophen 500 MG Oral Tablet (Tylenol) Take by mouth 2 Tablets every 8 hours as needed for Fever >38C(100.5F) or Pain, Moderate. 100 Tablet 5 12/27/19 Active Fluticasone Propionate 50 MCG/ACT Nasal Suspension (Flonase)Indications:Chr onic rhinitis 2 SPRAYS IN EACH NOSTRIL AT BEDTIME NEEDED FOR CONGESTION 48 g 1 03/14/20 Active Anti-Diarrheal 2 MG Oral Tablet (Loperamide) ONE TAB BY MOUTH DAILY BUT HOLD IF CONSTIPATION. 30 Tablet 4 03/27/20 Active Additional Information Patient taking differently: 2 mg Oral TID PRN, Diarrhea, Reported on 08/05/2023 Rosuvastatin Calcium 10 MG Oral TabletIndications:Pure hypercholesterolemia 1 TAB BY MOUTH AT BEDTIME FOR HYPERLIPIDEMIA 90 Tablet 3 09/24/19 Active Calmoseptine 0.44-20.6 % External Ointment (Menthol-Zinc [...] BEFORE MEAL 180 Tablet 1 04/05/20 23 Active Loratadine 10 MG Oral [...] anticoagulation clinic (THREE TIMES A WEEK ON SUN, , TH) 20 Tablet 1 08/24/20 Active Warfarin Sodium 2 MG Oral Tablet (Coumadin)Indications:Pa roxysmal atrial fibrillation (HCC) Take as directed by anticoagulation clinic (1 TAB BY MOUTH FOUR TIMES A WEEK ON MON, WED, FRI, SAT) 16 Tablet 4 08/24/20 23 Active [...] as of this encounter (statuses as of 10/07/2023) Active Problems Problem Noted Date Diagnosed Date [...] as of this encounter (statuses as of 10/07/2023) Resolved Problems Problem Noted Date Diagnosed Date [...] as of this encounter (statuses as of 10/07/2023) Immunizations Name Administration Dates Next Due COVID-19 [...] Sign Reading Time Taken Comments Blood Pressure 114/55 10/07/2023 4:05 PM EST Pulse 74 10/07/2023 4:05 PM EST Temperature 36.4 C (97.5 F) 10/07/2023 4:05 PM ES T Respiratory Rate 18 10/07/2023 4:05 PM EST Oxygen Saturation 93% 10/07/2023 4:05 PM EST Inhaled Oxygen Concentration - - Weight - - Height - - Body Mass Index - - documented in this encounter Nursing Notes * Donato High, RN - 10/07/2023 4:06 PM EST Chair 5. Labs reviewed, Hgb goal >11, current Hgb 8.3. Procrit 40,000u given in RAFAEL per orders. BP 114/55. Pt transported from infusion center in stable condition. documented in this encounter Plan of Treatment Upcoming Encounters Date Type Department Care Team (Late st Contact Info) Description 10/18/2023 8:50 AM EST Office Visit Ophthalmology, [facility] [address] [facility] [place] [address] Wu Varma, DO [address] [place] [address] [place] [address] 10/20/2023 4:45 PM EST Anticoagulation Pharmacy Call Center [phone] [place] [address] [facility] 58 60 [facility] [place] [address] 10/21/2023 3:30 PM EST Immunization/Injection Hematology/Oncology Treatment, [place] 200 [facility], [place] [address] Nurse, Med 4 200 [facility] [place] [address] 11/04/2023 1:15 PM EST Office Visit Hematology/Oncology [facility] 200 [facility] [place] [address] Juventino Sarah MD 200 [facility] [place] [address] 11/04/2023 1:45 PM EST Immunization/Injection [facility]ematology[facility]cology Treatment, [place] [facility] [address] Nurse, Med 4 200 [facility] [place] [address] 01/05/2024 3:40 PM EDT Office Visit Family Practice [facility] 200 [facility] [place] [address] Luis Whalen DO 200 [facility] [place], [place] [address] Health Maintenance Due Date Last Done Comments [...] Action [place] [address] UNIT/ML inj 40,000 Units 40,000 Units, Subcutaneous, ONCE, On Sarah 10/07/23 at 1630, For 1 dose Given 10/07/2023 4:02 PM EST 40,000 Units Arm Left Upper documented in this encounter Advance Directives Documents on File Type Date Recorded Patient Certified Nutritionist Expl anation Power of Wellness Nurse 11/28/2003 Care Teams Forestry Hunter Relationship Specialty Start Date End Date Luis Whalen DO [address] [place] [address] PCP - General Family Medicine 11/09/18 documented as of this encounter
--- OUTSIDE RECORDS SUMMARY | 2023-11-12 10:38 | External Medical Summary | Summary of Care ---
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) Procedures [place] INJ RETACRIT NON-ESRD USE [place] EPOETIN JJ, NON-ESRD Juventino Sarah MD [address] [place] [address] Anc Hem/Onc Lia Mab[place] DEPT CLOSED - 08/03/[address] [place] [address] [phone] Referral ID Status Reason Start Date Expiration Date V isits Requested Visits Authorized [id number] Authorized 09/30/2021 09/19/2099 99 99 Encounter Details Date Type Department Care Team (Latest Contact Info) Description 10/07/2023 4:00 PM EST Immunization/ Injection Hematology/Oncology Treatment, [place] [address] [place] [address] Clotilde Chair 8 Hem Onc Jak[place] [address] [place] [address] Anemia due to stage 4 chronic kidney [...] 10/18/2023 8:50 AM EST Office Visit Ophthalmology, [facility] 132 [facility] [place] [address] Wu Varma, DO [address] [place] [address] [place] [address] 10/20/2023 4:45 PM EST Anticoagulation Pharmacy Call Center [phone] [place] [address] [facility] 58 60 [facility] [place] [address] 10/21/2023 3:30 PM EST Immunization/Injection Hematology/Oncology Treatment, [place] 200 [facility], [place] [address] Nurse, Med 4 200 [facility] [place] [address] 11/04/2023 1:15 PM EST Office Visit Hematology/Oncology [facility] 200 [facility] [place] [address] Juventino Sarah MD 200 [facility] [place] [address] 11/04/2023 1:45 PM EST Immunization/Injection Hematology/Oncology Treatment, [place] [facility] [address] Nurse, Med 4 200 [facility] [place] [address] 01/05/2024 3:40 PM EDT Office Visit Family Practice [facility] 200 [facility] [place] [address] Luis Whalen DO 200 [facility] [place], [place] [address] Health Maintenance Due Date Last Done Comments [...] Action [place] [address] UNIT/ML inj 40,000 Units 40,000 Units, Subcutaneous, ONCE, On Sarah 10/07/23 at 1630, For 1 dose Given 10/07/2023 4:02 PM EST 40,000 Units Arm Left Upper documented in this encounter Advance Directives Documents on File Type Date Recorded 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
--- OUTSIDE RECORDS SUMMARY | 2023-11-12 10:38 | External Medical Summary | Summary of Care ---
Author Name Unknown Organization [facility] Address [address] [place] [address] Phone [phone] Care Team Providers Care Pharmacy Sales Representative Name Role Phone Luis Whalen Primary Care Provider [phone] Reason for Visit * Reason Onset Date Comments Test Results Lab 10/07/2023 Hgb Encounter Details Date Type Department Care Team (Late st Contact Info) Description 10/07/2023 Telephone Hematology/Oncology Treatment, [place] [address] [place] [address] Juventino Sarah MD [address] [place] [address] Test Results Lab (Hgb) Allergies Active Allergy [...] Dyer RN - 10/08/2023 1:51 PM EST [place] adjusted. * Telephone Encounter - Juventino Sarah MD - 10/08/2023 1:49 PM EST [place] [address] units every other week and see how [...] 10/18/2023 8:50 AM EST Office Visit Ophthalmology, [facility] 132 [facility] [place] [address] Wu Varma, DO [address] [place] [address] 10/20/2023 4:45 PM EST Anticoagulation Pharmacy Call Center WB [phone] [place] [address] [facility] 58 60 [facility] [address] 10/21/2023 3:30 PM EST Immunization/Injection Hematology/Oncology Treatment, [place] [address] [place] [address] Nurse, Med 4 [address] [place] [address] 11/04/2023 1:15 PM EST Office Visit Hematology/Oncology [facility] Clotilde [place] [address] [place] [address] Juventino Sarah MD 200 [place] [address] 11/04/2023 1:45 PM EST Immunization/Injection Hematology/Oncology Treatment, [place] [address] [facility] [address] [place], [place] [address] Nurse, Med 4 200 [facility] [place] [address] 01/05/2024 3:40 PM EDT Office Visit Family Practice 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
--- OUTSIDE RECORDS SUMMARY | 2023-11-12 10:38 | External Medical Summary ---
Author Name Unknown Address Unknown Organization [id number] [address] [place] [address] Laboratory Report Ordering Provider Test Date Status JORGE WINTERACE 10/06/2023 06:12:00 Final Warfarin Therapy
INR: 2 .0-3.0 conventional anticoagulation
INR: 2.5- 3.5 high intensity anticoagulation Observation Date Value Abnormality Reference (Units ) Status PT 10/06/2023 06:12:00 28.5 Above high normal 11 .6-15.2 (seconds) Final INR 10/06/2023 06:12:00 2.6 Above high normal 0. 8-1.2 Final Performing Location [facility] [address] [place] [address]
--- OUTSIDE RECORDS SUMMARY | 2023-11-12 10:38 | External Medical Summary | Continuity of Care Document ---
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 Active sulfamethoxazole ? Active trimethoprim ? Active tetanus toxoid swollen and hives Active Assessment and Plan Extracted from: Title:Office Visit Note Author:MD Kamlesh, Emmanuel Kendrick Date:10/07/23 1.Erosive Pustular Dermato sis Removed gently with peroxide and saline today. Recommended continued mupirocin to the scalp nightly 2.History of squamous cell carcinoma of skin Warning signs of skin cancer were reviewed. Sun protection reviewed. Follow-up in4 months, sooner for any changing or growing lesions or acute concerns. I also recommended monthly self skin exams 3. Inflamed seborrheic keratoses x4. Lesions treated with liquid nitrogen. Patient aware of possibility of infection, hypo or hyperpigmentation or scarring and did elect to proceed. They should inform me of any problems or recurrences post treatment. Care sheet given. Medications amiodarone 200 mg oral tablet Start: 06/27/21 8:31:00 EDT Start Date: 06/27/21 Status: Ordered aspirin Start: 06/27/21 8:31:00 EDT Start Date: 06/27/21 Status: Ordered azithromycin 500 mg oral tablet Start: 10/07/23 14:20:00 EST, 1 tab, PO, As indicated, Disp# 3 tab, Refills: 3, one hour before dental and other procedures as directed Start Date: 10/07/23 Status: Ordered Calcium 500+D Start: 04/21/16 9:30:00, See Instructions, 1 tab po daily Start Date: 04/21/16 Status: Ordered cholecalciferol 25 mcg (1000 intl units) oral tablet Start: 03/10/22 9:22:00 EDT, 1 tab, PO, Daily Start Date: 03/10/22 Status: Ordered Colace Start: 06/27/21 8:31:00 EDT Start Date: 06/27/21 Status: Ordered Coumadin 1 mg oral tablet Start: 12/07/18 11:05:00 EDT, 2 tab, Daily, 1mg Wednesday, Wednesday, Wednesday. 2mg other days- Start Date: 12/07/18 Status: Ordered diclofenac 1% topical gel Start: 06/27/21 8:32:00 EDT Start Date: 06/27/21 Status: Ordered Estrace Vaginal 0.1 mg/g vaginal cream Start: 06/27/21 8:32:00 EDT Start Date: 06/27/21 Status: Ordered ferrous sulfate Start: 10/02/21 14:23:00 EST, 325 mg =, PO, Daily Start Date: 10/02/21 Status: Ordered Flonase 50 mcg/inh nasal spray Start: 04/21/16 9:30:00, 2 spray, each nostril, Daily Start Date: 04/21/16 Status: Ordered Gemtesa 75 mg oral tablet Start: 10/07/23 14:23:00 EST Start Date: 10/07/23 Status: Ordered glipiZIDE 5 mg oral tablet Start: 06/27/21 8:32:00 EDT Start Date: 06/27/21 Status: Ordered ICaps AREDS Start: 06/27/21 8:35:00 EDT Start Date: 06/27/21 Status: Ordered ketoconazole 2% topical shampoo Start: 01/07/22 15:21:00 EDT, 1 appl, topical, Daily, Disp# 120 mL, Refills: 3, please shampoo Mon Wed, Pharmacy: [facility] Start Date: 01/07/22 Status: Ordered levothyroxine 112 mcg (0.112 mg) oral tablet Start: 10/07/23 14:24:00 EST, 1 tab, PO, Daily Start Date: 10/07/23 Status: Ordered loperamide Start: 06/27/21 8:34:00 EDT Start Date: 06/27/21 Status: Ordered loratadine 10 mg oral capsule Start: 06/09/23 15:06:00 EDT Start Date: 06/09/23 Status: Ordered Melatonin Start: 10/02/21 14:23:00 EST, 3 mg =, PO, qhs Start Date: 10/02/21 Status: Ordered menthol-zinc oxide 0.44%-20.6% topical ointment Start: 06/09/23 14:45:00 EDT Start Date: 06/09/23 Status: Ordered Metoprolol Tartrate 25 mg oral tablet Start: 06/27/21 8:34:00 EDT Start Date: 06/27/21 Status: Ordered MetroCream 0.75% topical cream Start: 03/18/23 8:35:00 EDT, 1 appl, topical, bid, Disp# 45 g, Refills: 2, to face., Pharmacy: [facility] Start Date: 03/18/23 Status: Ordered MiraLax Start: 10/02/21 14:22:00 EST, PO, Daily Start Date: 10/02/21 Status: Ordered One Touch Finepoint (25G) Lancets Start: 04/21/16 9:35:00, See Instructions, Disp# 1 box Start Date: 04/21/16 Status: Ordered One Touch Ultra Blue Test Strips Start: 04/21/16 9:34:00, See Instructions, Disp# 1 box, tid Start Date: 04/21/16 Status: Ordered Probiotic Formula Start: 06/27/21 8:35:00 EDT Start Date: 06/27/21 Status: Ordered rosuvastatin 10 mg oral tablet Start: 03/10/22 9:27:00 EDT Start Date: 03/10/22 Status: Ordered sertraline 25 mg oral tablet Start: 03/18/23 8:37:00 EDT Start Date: 03/18/23 Status: Ordered Systane Balance ophthalmic solution Start: 10/07/23 14:25:00 EST Start Date: 10/07/23 Status: Ordered tamsulosin 0.4 mg oral capsule Start: 12/25/19 21:45:00 EDT, 1 cap, PO, Daily Start Date: 12/25/19 Status: Ordered Tobradex 0.3%-0.1% ophthalmic ointment Start: 10/07/23 14:21:00 EST Start Date: 10/07/23 Status: Ordered triamcinolone 0.1% topical lotion Start: 06/27/21 9:04:00 EDT, 1 appl, topical, bid, Disp# 60 mL, Refills: 3, apply to scalp, [facility]: [facility] Start Date: 06/27/21 Status: Ordered Tylenol 500 mg oral tablet Start: 12/29/19 11:04:00 EDT, 2 tab, PO, q8h Start Date: 12/29/19 Status: Ordered Ultram 50 mg oral tablet Start: 12/30/19 11:00:00 EDT, 0.5 tab, PO, q6h, PRN: pain - moderate Start Date: 12/30/19 Status: Ordered unknown medication Start: 03/10/22 9:25:00 EDT, guaifenesin er Start Date: 03/10/22 Status: Ordered Vitamin B12 Start: 03/18/23 8:38:00 EDT Start Date: 03/18/23 Status: Ordered Mental Status 10/07/23 Barriers to Learning one year None evide nt Mandatory Health Literacy Documentation Yes Health Literacy Communication Barriers N ever Primary Language Tanzanian Problem List Condition Confirmation Course Effective Dates Status Health St atus Informant Arthritis Confirmed Active Afib Confirmed Active Changing skin lesion Confirmed Active MRSA (methicillin resistant staph aureus) culture positive 1 Confirmed 06/03/22 Active Erosive Pustular Dermatosis Confirmed Active Dens fracture Confirmed Active History of squamous cell carcinoma of skin Confirmed Active Inflamed seborrheic keratosis Confirmed Active 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 03/30/16 Active Actinic keratoses Confirmed Active Neoplasm of uncertain behavior of skin Confirmed Active Rosacea Confirmed Active Seborrhea Confirmed Active Skin lesion Confirmed Active 14+ STAPHYLOCOCCUS AUREUS (RESISTANT TO OXACILLIN) (*MRSA*) from WOUND SCALP SWAB drawn 06/03/2022 13:12 16/08/16 Wound Culture [place] Swab 4+MRSA Diagnosis Diagnosis Type Effective Dates Health Status Clinical Service Informant Erosive Pustular Dermatosis Discharge Diagnosis 10/07/23 History of squamous cell carcinoma of skin Discharge Diagnosis 10/07/23 Procedures Procedure Date Related Diagnosis Body Site Status Shave biopsy and cauterization of skin 06/09/23 Completed Shave biopsy and cauterization of skin 06/09/23 Completed Shave biopsy and cauterizati on of skin 1 10/06/22 Completed Mohs micrographic surgery 07/01/22 Completed Shave biopsy and cauterization of skin 06/03/22 Completed Mohs' micrographic surgery 10/28/21 Completed Shave biopsy and cauterization of skin 10/02/21 Completed Shave biopsy and cauterizati on of skin 2 06/27/21 Completed Shave biopsy and cauterizati on of skin 3 08/15/18 Completed Shave biopsy and cauterizati on of skin 4 02/10/17 Completed Cholecystectomy 5 Complet ed Colonoscopy Completed Hip replacement Completed Hysterectomy 6 Completed Laser 7 Completed Surgery 8 Completed 1right lateral upper forehead 2left frontal scalp 3left ear 4right forehead superior, right forehead inferior 5not sure when 6not sure of date 7right eye 8surgery on rt leg not sure when. Social History Social History Type Response Smoking Status Never smoked cigaret linda Sex Female Dermatology Outpatient Note * MD Kamlesh, Jennifer Kendrick: PERFORM Event Display: Dermatology Outpt Note Authored Date: [id number] Chief Complaint pt would like face and head checked- no concerns History of Present Illness Patient follows up with her daughter today. She just wants face neck ears and scalp looked at. She most recently had Mohs surgery on her right nose in August 2023 SKin ca hx: keratoacanthoma features on the left frontal scalp from June 2021 and a squamous cell in situ on the right high from September 2021 she has had multiple actinic keratoses in the past as well as biopsies in the past consistent with erosive pustular dermatosis of the scalp from 2015. She has numerous crusts on her scalp. In fall 2021 she had a well differentiated squamous cell on the left scalp anterior and vertical with atypia on the right posterior scalp could be evolving into a squamous cell in situ-we are monitoring this 1. The left anterior scalp was treated with Mohs. She also had MRSA superinfection of her pustular dermatosis and completed a course of topical mupirocin as they felt it was just superficial under the crusts. She had a superficially invasive well differentiated squamous cell on the right lateral upper forehead September 2022. This was scheduled for Mohs but treated with ED and C at the time. [1] Physical Exam Patient accompanied by her daughter is in good moodconversantin her wheelchair. Exam of face scalp neckearshands completed today. She has some irritated seborrheic keratosis she wants me to remove on the bilateral neck x 4. No evidence of recurrent skin cancer. No neck supraclavicular posterior occipital lymphadenopathy. She does have some mild erosive pustular dermatosisbut this is much better than previous. Assessment/Plan 1.Erosive Pustular Dermatosis Removed gently with peroxide and saline today. Recommended continued mupirocin to the scalp nightly 2.History of squamous cell carcinoma of skin Warning signs of skin cancer were reviewed. Sun protection reviewed. Follow-up in4 months, sooner for any changing or growing lesions or acute concerns. I also recommended monthly self skin exams 3. Inflamed seborrheic keratoses x4. Lesions treated with liquid nitrogen. Patient aware ofpossibility of infection, hypo or hyperpigmentation or scarring and did elect to proceed. They should inform me of any problems or recurrences post treatment. Care sheet given. Problem List/Past Medical History Ongoing Actinic keratoses Afib Arthritis Changing skin lesion Dens fracture Erosive Pustular Dermatosis History of squamous cell carcinoma of skin Inflamed seborrheic keratosis MRSA (methicillin resistant staph aureus) culture positive MRSA carrier Neoplasm of uncertain behavior of skin Rosacea Seborrhea Skin lesion Procedure/Surgical History Shave biopsy and cauterization of skin (06/09/2023)Shave biopsy and cauterization of skin (06/09/2023)Shave biopsy and cauterization of skin (10/06/2022)Mohs micrographic surgery (07/01/2022)Shave biopsy and cauterization of skin (06/03/2022)Mohs' micrographic surgery (10/28/2021) Shave biopsy and cauterization of skin (10/02/2021)Shave biopsy and cauterization of skin (06/27/2021)Shave biopsy and cauterization of skin (08/15/2018)Shave biopsy and cauterization of skin (02/10/2017)LaserColonoscopySurgeryCholecystectomyHysterectomy Hip replacement Medications acetaminophen(Tylenol 500 mg oral tablet), 1000 mg= 2 tab, PO, q8h amiodarone(amiodarone 200 mg oral tablet) aspirin azithromycin(azithromycin 500 mg oral tablet), 500 mg= 1 tab, PO, As indicated bifidobacterium-lactobacillus(Probiotic Formula) calcium-vitamin D(Calcium 500+D), See Instructions cholecalciferol(cholecalciferol 25 mcg (1000 intl units) oral tablet), 25 mcg= 1 tab, PO, Daily cyanocobalamin(Vitamin B12) dexamethasone-tobramycin ophthalmic(Tobradex 0.3%-0.1% ophthalmic ointment) diabetic supplies(One Touch Ultra Blue Test Strips), See Instructions diabetic supplies(One Touch Finepoint (25G) Lancets), See Instructions diclofenac topical(diclofenac 1% topical gel) docusate(Colace) estradiol topical(Estrace Vaginal 0.1 mg/g vaginal cream) ferrous sulfate, 325 mg, PO, Daily fluticasone nasal(Flonase 50 mcg/inh nasal spray), 2 spray, each nostril, Daily glipiZIDE(glipiZIDE 5 mg oral tablet) ketoconazole topical(ketoconazole 2% topical shampoo), 1 appl, topical, Daily, 3 refills levothyroxine(levothyroxine 112 mcg (0.112 mg) oral tablet), 112 mcg= 1 tab, PO, Daily loperamide loratadine(loratadine 10 mg oral capsule) melatonin(Melatonin), 3 mg, PO, qhs menthol-zinc oxide topical(menthol-zinc oxide 0.44%-20.6% topical ointment) metoprolol(Metoprolol Tartrate 25 mg oral tablet) metroNIDAZOLE topical(MetroCream 0.75% topical cream), 1 appl, topical, bid, 2 refills multivitamin with minerals(ICaps AREDS) ocular lubricant(Systane Balance ophthalmic solution) polyethylene glycol 3350(MiraLax), PO, Daily rosuvastatin(rosuvastatin 10 mg oral tablet) sertraline(sertraline 25 mg oral tablet) tamSULOsin(tamsulosin 0.4 mg oral capsule), 0.4 mg= 1 cap, PO, Daily traMADol(Ultram 50 mg oral tablet), 25 mg= 0.5 tab, PO, q6h, PRN triamcinolone topical(triamcinolone 0.1% topical lotion), 1 appl, topical, bid, 3 refills unknown medication vibegron(Gemtesa 75 mg oral tablet) warfarin(Coumadin 1 mg oral tablet), 2 mg= 2 tab, Daily Allergies amoxicillin (Moderate)unknown Bactrim? sulfamethoxazole? tetanus toxoidswollen and hives tetracyclineswollen , hives trimethoprim? Social History Smoking Status Never smoked cigarettes Recommendations Health Maintenance Pending(in the next year) OverDue Adult Influenza Vaccine due03/19/23and every 1year Due Adult COVID-19 Vaccination due10/07/23Unknown Frequency Adult Social Determinants of Health Screening due10/07/23Unknown Frequency Body Mass Index due10/07/23Unknown Frequency Medicare Annual Wellness Visit due10/07/23and every 1year Pneumococcal Vaccine Older Adults due10/07/23One-time only Shingles Vaccine due10/07/23One-time only Satisfied(in the past 1 year) There are no satisfied recommendations within the defined date range [1]Office Visit Note; MD Kamlesh, Jennifer Kendrick 06/09/2023 15:10 EDT Electronic Signature on File Electronically Reviewed/Signed by: Jennifer Whitlock MD Author Signature Dt/Tm:10/07/2023 02:54 PM Department of Dermatology [facility] Patient Care team information Care Team Personnel Name: LUIS EDUARDO Quiroz Ashley Position: Physician Clerical Aide - Neurosurgery Member Role: Lifetime Relationship Address: Address: [address] [place] [address] [place] [address] [place] Name: DO Whalen Shane D Position: Referring DIRECT Member Role: Primary Care Provider Address: Address: [address] [place] [address] [place] Care Team Related Persons Name: JESSE HOFFMANN Name: JOSE JUAN HOFFMANN Name: JOSE JUAN HOFFMANN Address: home No Address Provided
--- OUTSIDE RECORDS SUMMARY | 2023-11-12 10:38 | External Medical Summary | Summary of Care ---
Author Name Unknown Organization [facility] Address [address] [place] [address] Phone [phone] Care Team Providers Care Extender Name Role Phone Koby Luis Dionne PEDRO Primary Care Provider [phone] Reason for Visit * Reason Comments Dosage Adjustment Via Phone (anticoag Cl inic) Encounter Details Date Type Department Care Team (Latest Contact Info) Description 10/06/2023 4:45 PM EST Anticoagulation Pharmacy Call Center [phone] [place] [address] [facility], [facility] [address] [place] [address] Paroxysmal atrial fibrillation (HCC)*; H/O traumatic subdural [...] as of this encounter (statuses as of 10/06/2023) Medications Medication Sig Dispensed Refills Start Date [...] MOUTH AT BEDTIME FOR HYPERLIPIDEMIA 90 Tablet 09/24/19 Active Calmoseptine 0.44-20.6 % External Ointment [...] morning. 90 Tablet 3 06/07/20 23 Active Azithromycin 500 MG Oral Tablet [...] as of this encounter (statuses as of 10/06/2023) Active Problems Problem Noted Date Diagnosed Date [...] as of this encounter (statuses as of 10/06/2023) Resolved Problems Problem Noted Date Diagnosed Date [...] as of this encounter (statuses as of 10/06/2023) Immunizations Name Administration Dates Next Due COVID-19 [...] this encounter Progress Notes * Alaina Rodriguez, [facility] - 10/06/2023 9:38 AM EST Medication Therapy Disease Management - Anticoagulation Patient: Radha Cardenas | : 1935 [facility] Patient Anticoagulation Encounter Patient is a resident at: [facility] -- Fax sent to number listed above detailing plan of care below. Please notify clinic with any unusual brusing or bleeding, N/V/D, medication or diet changes or anymissed or extra doses of Coumadin. Subjective Patient-Reported Symptoms: Objective Current Warfarin Dose As of 10/06/2023 Warfarin maintenance plan: 2 mg (1 mg x 2) every Wed, Fri; 1.5 mg (1 mg x 1.5) all other days INR Result As of 10/06/2023 INR goal: 2.0-3.0 INR used for dosin.6 (10/06/2023) Assessment & Plan Warfarin Plan As of 10/06/2023 Full warfarin instructions: 2 mg every Wed, Fri; 1.5 mg all other days No change documented: Alaina Rodriguez RPh Next INR check: 10/20/2023 Repeat PT/INR in 2 week(s) Weekly dose: not changed Additional Dosing Information: Description Amiodarone decreased 12/10/2020 Alaina Rodriguez RPh Clinical Pharmacist 10/06/2023, 9:39 AM documented in this encounter Plan of Treatment Upcoming Encounters Date Type Department Care Team (Late st Contact Info) Description 10/07/2023 4:00 PM EST Immunization/Inje ction Hematology/Oncology Treatment, [address] [address] Park, Chair [address] Hem Onc [address] [place] [address] 10/18/2023 8:50 AM EST Office Visit Ophthalmology, [facility] [address] [facility] [place] [address] Wu Varma, DO [address] [place], [place] [address] [address] 10/21/2023 3:30 PM EST Immunization/Inje ction Hematology/Oncology Treatment, [address] [address] Nurse, Med 4 [address] [place] [address] 11/04/2023 1:15 PM EST Office Visit Hematology/Oncology [facility] [address] [facility] [place], [place] [address] Juventino Sarah MD [address] [facility] [place], [place] [address] 11/04/2023 1:45 PM EST Immunization/Inje ction Hematology/Oncology Treatment, [place] [address] [facility], [place] [address] Nurse, Med 4 [address] [facility] [place], [place] [address] 01/05/2024 3:40 PM EDT Office Visit Family Practice [facility] [address] [facility] [place], [place] [address] Luis Whalen DO [address] [place] [address] Health Maintenance Due Date Last Done Comments Hepatitis B (1 of 3 - Risk 3-dose series) 1994 Zoster Vaccines (2 of 3) 09/24/2008 07/30/2008 Nephrology Referral 10/05/2014 10/05/2013 Albumin/Creatinine Ratio 04/06/2020 07/2 019, 06/08/2018, 07/01/2017, Additional history exists Diabetic [...] Documents on File Type Date Recorded Patient Train Engineer Expl anation Power of Ticket Dispatcher 11/28/2003 Care Teams Extender Relationship Specialty Start Date End Date Luis Whalen DO [address] [place] [address] PCP - General Family Medicine 11/09/18 documented as of this encounter"
--- OUTSIDE RECORDS SUMMARY | 2023-11-12 10:38 | External Medical Summary | Summary of Care ---
Author Name Unknown Organization [facility] Address [address] [place] [address] Phone [phone] Care Team Providers Care Heel Former Name Role Phone Luis Whalen DO Primary Care Provider [phone] Encounter Details Date Type Department Care Team (Late st Contact Info) Description 10/06/2023 Orders Only Lab Mobile Phlebotomy [facility] [address] [place], [place] [id number] Luis Whalen DO [address] [place] [address] Atrial fibrillation, unspecified type (HCC)* [...] Care Team (Late st Contact Info) Description 10/06/2023 4:45 PM EST Anticoagulation Pharmacy Call Center [phone] [place] [address] [facility] [address] [facility] [place] [address] 10/07/2023 4:00 PM EST Immunization/Injection Hematology/Oncology Treatment, [place] [address] [facility], [place] [address] Park, Chair 8 Hem Onc [place] [address] [place] [address] 10/18/2023 8:50 AM EST Office Visit Ophthalmology, [facility] [address] [facility] [place] [address] Wu Varma, DO [address] [place] [address] 10/21/2023 3:30 PM EST Immunization/Injection Hematology/Oncology Treatment, [place] [address] [facility], [place] [address] Nurse, Med [address] [place] [address] 11/04/2023 1:15 PM EST Office Visit Hematology/Oncology [facility] [place] [address] [place] [address] Juventino Sarah MD 200 [facility] [place] [address] 11/04/2023 1:45 PM EST Immunization/Injection [facility]ematology[facility]cology Treatment, [place] [facility] [address] Nurse, Med [address] [place] [address] 01/05/2024 3:40 PM EDT Office Visit Family Practice [facility] [place] [address] [place] [address] Luis Whalen, DO [address] [facility] [place] [address] Scheduled Orders Name Type Priority Associated Diagnoses Orde r Schedule PT INR Lab Routine Atrial fibrillation, unspecified type (HCC) Expected: 10/06/2023, Expires: 10/06/2024 Health Maintenance Due Date Last Done Comments [...] 09/06/2023, 01/18, 05/15/2022, Additional history exists Hgb 09/29/2024 09/29/2023, 01/0 11/2023, 09/09/2023, Additional history exists Pneumococcal Vaccine: 65+ Years [...] Documents on File Type Date Recorded Patient Corrections Counselor Expl anation Power of Welding Technician 11/28/2003 Care Teams Heel Former Relationship Specialty Start Date End Date Luis Whalen DO [address] [place] [address] PCP - General Family Medicine 11/09/18 documented as of this encounter
--- OUTSIDE RECORDS SUMMARY | 2023-11-12 10:38 | External Medical Summary | Summary of Care ---
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) Procedures MT INJ RETACRIT NON-ESRD USE MT EPOETIN JJ, NON-ESRD Juventino aSrah MD [address] [place] [address] Anc Hem/Onc Lia Mabry DEPT CLOSED - 08/03/[address] [place] [phone] Referral ID Status Reason Start Date Expiration Date V isits Requested Visits Authorized [id number] Authorized 09/30/2021 09/19/2099 99 99 Encounter Details Date Type Department Care Team (Latest Contact Info) Description 10/07/2023 4:00 PM EST Immunization/ Injection Hematology/Oncology Treatment, [place] [address] [place] [address] Clotilde Chair 8 Hem Onc [place] [address] [place] [address] [address] Anemia due to stage 4 chronic kidney [...] 10/18/2023 8:50 AM EST Office Visit Ophthalmology, [facility] 132 [facility] [place] [address] Wu Varma, DO [address] [place] [address] [place] [address] 10/20/2023 4:45 PM EST Anticoagulation Pharmacy Call Center WB 58-[address] Public [place] [address] [facility] [address] [facility] [place] [address] 10/21/2023 3:30 PM EST Immunization/Injection Hematology/Oncology Treatment, [place] 200 [facility], [place] [address] Nurse, Med 4 200 [facility] [place] [address] 11/04/2023 1:15 PM EST Office Visit Hematology/Oncology [facility] 200 [facility] [place] [address] Juventino Sarah MD 200 [facility] [place] [address] 11/04/2023 1:45 PM EST Immunization/Injection Hematology/Oncology Treatment, [place] 200 [facility] [address] Nurse, Med 4 200 [facility] [place] [address] 01/05/2024 3:40 PM EDT Office Visit Family Practice [facility] 200 [facility] [place] [address] Luis Whalen DO 200 [facility] [place], [place] [address] Health Maintenance Due Date Last Done Comments [...] Action [place] [address] UNIT/ML inj 40,000 Units 40,000 Units, Subcutaneous, ONCE, On Sarah 10/07/23 at 1630, For 1 dose Given 10/07/2023 4:02 PM EST 40,000 Units Arm Left Upper documented in this encounter Advance Directives Documents on File Type Date Recorded Patient Music Library Assistant Expl anation Power of Avionics Supervisor 11/28/2003 Care Teams Riding Teacher Relationship Specialty Start Date End Date Luis Whalen DO [address] [place] [address] PCP - General Family Medicine 11/09/18 documented as of this encounter
--- OUTSIDE RECORDS SUMMARY | 2023-11-12 10:38 | External Medical Summary ---
Author Name Unknown Address Unknown Organization [id number]:LABOR[facility]ORY [facility] ROSS [address] [place] [address] Laboratory Report Ordering Provider Test Date Status VITA LI 10/06/2023 06:12:00 Final Observation Date Value Abnormality Reference (Units ) Status WBC, Total 10/06/2023 06:12:00 5.35 4.00-10.8 0 (K/uL) Final RBC 10/06/2023 06:12:00 3.28 3.85-5.15 (M/uL) Final Hemoglobin 10/06/2023 06:12:00 8.3 Below low normal 12 .0-15.3 (g/dL) Final HCT 10/06/2023 06:12:00 28.4 Below low normal 36. 0-45.2 (%) Final MCV 10/06/2023 06:12:00 86.6 81.5-97.5 (fL) Final MCH 10/06/2023 06:12:00 25.3 27.0-34.0 (pg) Final MCHC 10/06/2023 06:12:00 29.2 32.0-36.0 (g/dL) Final RDW 10/06/2023 06:12:00 18.5 11.5-15.5 (%) Final Platelets 10/06/2023 06:12:00 121 Below low normal 140 -400 (K/uL) Final MPV 10/06/2023 06:12:00 10.5 6.6-11.1 ( fL) Final Performing Location [facility]ORY [facility] ROSS 57-[address] 0 - [address] [place] [address]
--- OUTSIDE RECORDS SUMMARY | 2023-11-12 10:38 | External Medical Summary ---
Author Name Unknown Address Unknown Organization [id number] [address] [place] [address] Laboratory Report Ordering Provider Test Date Status VITA LI 10/06/2023 06:12:00 Final Observation Date Value Abnormality Reference (Units ) Status Nucleated erythrocytes/100 leukocytes [Ratio] in Blood by Automated count 10/06/2023 06:12:00 Final Performing Location [facility] 57[facility] 0 - [address] [place] [address]
--- OUTSIDE RECORDS SUMMARY | 2023-11-12 10:39 | External Medical Summary | Summary of Care ---
Author Name Unknown Organization [facility] Address [address] [place] [address] Phone [phone] Care Team Providers Care Raw Mill Operator Name Role Phone GayeLuis brody Dionne PEDRO Primary Care Provider [phone] Encounter Details Date Type Department Care Team (Late st Contact Info) Description 09/30/2023 Telephone [facility] 16 [place], [place] [phone] Wu Varma DO 16 [place] [address] Allergies Active Allergy Reactions Criticality Noted Date [...] as of this encounter (statuses as of 09/30/2023) Medications Medication Sig Dispensed Refills Start Date [...] as of this encounter (statuses as of 09/30/2023) Active Problems Problem Noted Date Diagnosed Date [...] as of this encounter (statuses as of 09/30/2023) Resolved Problems Problem Noted Date Diagnosed Date [...] as of this encounter (statuses as of 09/30/2023) Immunizations Name Administration Dates Next Due COVID-19 [...] encounter Miscellaneous Notes * Telephone Encounter - Eve Velasquez OSA - 09/30/2023 12:31 PM EST Return in about 2 weeks (around 10/14/2023) for [place] . Patient can't do the 2 week but can do the week of 10/18 [place] documented in this encounter Plan of Treatment Upcoming Encounters Date Type Department Care Team (Late st Contact Info) Description 10/06/2023 4:45 PM EST Anticoagulation Pharmacy Call Center WB 58-60 [facility] [place] [address] Ccps, [facility] 58 60 [facility] [place] [address] 10/07/2023 4:00 PM EST Immunization/Injection Hematology/Oncology Treatment, [place] 200 [facility] [place] [address] Clotilde, Chair 8 Hem Onc [facility] [address] [place] [address] [address] 10/18/2023 8:50 AM EST Office Visit Ophthalmology, [facility] 132 [facility] [place] [address] Wu Varma, DO [address] [place] [address] 10/21/2023 3:30 PM EST Immunization/Injection Hematology/Oncology Treatment, [place] 200 [facility] [place] [address] Nurse, Med [address] [place] [address] 11/04/2023 1:15 PM EST Office Visit Hematology/Oncology [facility] [place] [address] [place] [address] [address] Juventino Sarah MD [facility] [place] [address] 11/04/2023 1:45 PM EST Immunization/Injection Hematology/Oncology Treatment, [place] 200 [facility] [place] [address] Nurse, Med [address] [place] [address] 01/05/2024 3:40 PM EDT Office Visit Family Practice [facility] [place] [address] [place] [address] [address] Luis Whalen, DO [address] [place] [address] Health Maintenance Due Date Last Done Comments [...] Documents on File Type Date Recorded Patient Tank Pumper Panelboard Expl anation Power of Mica Splitter 11/28/2003 Care Teams Raw Mill Operator Relationship Specialty Start Date End Date Luis Whalen DO 200 [facility] [place] [address] PCP - General Family Medicine 11/09/18 documented as of this encounter
--- OUTSIDE RECORDS SUMMARY | 2023-11-12 10:39 | External Medical Summary ---
Author Name Unknown Address Unknown Organization K0G:[facility]ATORY [facility] ROSS 57[address] - [address] [place] [address] Laboratory Report Ordering Provider Test Date Status VITA LI 09/29/2023 06:20:00 Final Observation Date Value Abnormality Reference (Units ) Status WBC, Total 09/29/2023 06:20:00 6.10 4.00-10.8 0 (K/uL) Final RBC 09/29/2023 06:20:00 3.25 3.85-5.15 (M/uL) Final Hemoglobin 09/29/2023 06:20:00 8.4 Below low normal 12 .0-15.3 (g/dL) Final HCT 09/29/2023 06:20:00 28.1 Below low normal 36. 0-45.2 (%) Final MCV 09/29/2023 06:20:00 86.5 81.5-97.5 (fL) Final MCH 09/29/2023 06:20:00 25.8 27.0-34.0 (pg) Final MCHC 09/29/2023 06:20:00 29.9 32.0-36.0 (g/dL) Final RDW 09/29/2023 06:20:00 18.6 11.5-15.5 (%) Final Platelets 09/29/2023 06:20:00 142 140-400 (K /uL) Final MPV 09/29/2023 06:20:00 10.9 6.6-11.1 ( fL) Final Performing Location [facility]ORY [facility] ROSS [address] - [address] [place] [address]
--- OUTSIDE RECORDS SUMMARY | 2023-11-12 10:39 | External Medical Summary | Summary of Care ---
Author Name Unknown Organization [facility] Address [address] [place] [address] Phone [phone] Care Team Providers Care Performance Instructor Name Role Phone GayeLuis brody Dionne PEDRO Primary Care Provider [phone] Reason for Visit * Reason Comments New Consultation Encounter Details Date Type Department Care Team (Late st Contact Info) Description 09/30/2023 12:30 PM EST Office Visit [facility] 16 [place] [address] Wu Varma DO 16 [place], [place] [phone] Senile ectropion of both lower eyelids* Allergies [...] morning. 30 Tablet 11 09/28/19 24 Active Hospital, Clinic, or Other Facility Administered Medication Ordered Dose Route Frequency Start Date End Date Status Tobramycin-dexAMETHasone (Tobradex) ophthalmic ointmentIndications:Senile ectropion of both lower eyelids RT EYE ONCE 09/30/2023 10/01/2023 Active documented as of this encounter (statuses [...] of this encounter Progress Notes * Wu Varma, - 09/30/2023 12:13 PM EST Radha Cardenas is a 88 year old female who presents for evaluation of ectropion right eye worse than left eye. Patient with a several month history of a red lower right eyelid treated with Maxitrol. A reported area of scabbing noted initial presentation that has taken a prolonged time to heal butit is slowly but surely healed. Recent left eye similar redness improved on its own. Ophthalmology Past History: cataract extraction both eyes Ophthalmology Family History: none Ophthalmology ROS: Positive for red right eye recent left eye involved as well and no recent significant change in vision,no eye pain, redness, discharge,no diplopia Current Ophthalmic Medications: Tears drops and gel EXAM: Base Eye Exam Visual Acuity (Snellen - Linear) Right Left Dist sc 20/30-2 20/30-2 Tonometry (Tonopen, 12:15 PM) Right Left Pressure 14 20 Pupils Shape React Right Irregular Brisk Left Brisk Visual Matson (Counting fingers) Right Left Full Full Extraocular Movement Right Left Full Full Slit Lamp and Fundus Exam Slit Lamp Exam Right Left Lids/Lashes Marked ectropion lower lid with keratinization several concretions noted Mild ectropionseveral concretions Conjunctiva/Sclera White and quiet White and quiet Cornea Clear Clear Anterior Chamber Deep and quiet Deep and quiet Iris Round and reactive Round and reactive Lens Posterior chamber intraocular lens Posterior chamber intraocular lens IMPRESSION: 1. 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 Aggressive steroid ointment to the right lower lid 4 times daily in an attempt to reverse the keratinization may actually decrease the ectropion may use the ointment in the left eye at bedtime as well 2. Two week returned Hector acevedo 3. Discussed possibility of doing the surgical procedure in the office of a lateral tarsal strip toimprove the eyelid position. Patient reluctant to undergo any type of surgical correction. 4. Sooner p.r.n. Wu Varma DO documented in this encounter Nursing Notes * Joy Vergara RN - 09/30/2023 12:06 PM EST Radha Cardenas is a 88 year old female who presents for ectropion OD > OS. Last Visit: Visit date not found (in office), Visit date not found (telemedicine) She currently c/o burning and itching OD. Are you diabetic? Yes. Do you check your sugar daily? YES. Fasting BS this mornin mg/dl. LastHemoglobin A1C: Lab Results Component Value Date/Time HGBA1C 6.6 (H) 09/06/2023 01:48 PM HGBA1C 7.6 (H) 02/03/2023 12:47 PM HGBA1C 6.9 (H) 10/21/2022 06:10 AM HGBA1C 7.4 (A) 06/26/2020 12:00 AM HGBA1C 7.7 (H) 03/28/2020 11:41 AM HGBA1C 6.8 (H) 08/11/2019 12:55 PM HGBA1C 6.8 (H) 04/06/2019 02:12 PM HGBA1C 5.7 11/09/1996 09:20 AM Current Ophthalmic Medications: Warm compresses daily Genteal ointment HS Systane TID OU VA, IOP, current eyeglass Rx, and pupil check and dilation if needed can be found in ophth exam. documented in this encounter Plan of Treatment Upcoming Encounters Date Type Department Care Team (Latest Contact Info) Description 10/06/2023 4:45 PM EST Anticoagulation Pharmacy Call Center 58-60 [facility] [place] [address] [facility] [address] [facility] [place] [address] 10/07/2023 4:00 PM EST Immunization/Injection Hematology/Oncology Treatment, [address] [place] [address] Clotilde, Chair 8 Hem Onc [place] [address] [place] [address] 10/21/2023 3:30 PM EST Immunization/Injection Hematology/Oncology Treatment, [address] [place] [address] Nurse, Med 4 [address] [place], [place] [address] 11/04/2023 1:15 PM EST Office Visit Hematology/Oncology [facility] [address] [place] [address] Juventino Sarah MD 200 [facility] [place] [address] 11/04/2023 1:45 PM EST Immunization/Injection [facility]ematology[facility]Oncology Treatment, [place] [facility] [address] Nurse, Med 4 [address] [place] [address] 01/05/2024 3:40 PM EDT Office Visit Family Practice [facility] 200 [place] [address] Luis Whalen, 200 [facility] [place] [address] Health Maintenance Due Date Last Done Comments [...] 06/03/2018, Additional history exists Phosphate 02/04/2024 02/03/2023, 05/2020, 08/11/2019, Additional history exists Diabetic Eye Exam 02/23/2024 02/22/2023, , 02/11/2021, Additional history exists HbA1c 03/07/2024 09/06/2023, 01/18, 10/21/2022, Additional history exists TSH 09/06/2024 09/06/2023, 01/18, 05/15/2022, Additional history exists Hgb 09/29/2024 09/29/2023, 11/2023, 09/09/2023, Additional history exists Pneumococcal Vaccine: [...] lower eyelids- Primary documented in this encounter Advance Directives Documents on File Type Date Recorded Patient Peanut Separator Expl anation Power of Mill Attendant 11/28/2003 Care Teams Performance Instructor Relationship Specialty Start Date End Date Luis Whalen DO [address] [place] [address] PCP - General Family Medicine 11/09/18 documented as of this encounter
--- OUTSIDE RECORDS SUMMARY | 2023-11-12 10:39 | External Medical Summary ---
Author Name Unknown Address Unknown Organization K0G:LABOR[facility]ORY [facility] ROSS [address] [place] [address] Laboratory Report Ordering Provider Test Date Status MOYMO 09/29/2023 06:20:00 Final Warfarin Therapy
INR: 2 .0-3.0 conventional anticoagulation
INR: 2.5- 3.5 high intensity anticoagulation Observation Date Value Abnormality Reference (Units ) Status PT 09/29/2023 06:20:00 27.9 Above high normal 11 .6-15.2 (seconds) Final INR 09/29/2023 06:20:00 2.6 Above high normal 0. 8-1.2 Final Performing Location [facility] ROSS 57-1 0 - [address] [place] [address]
--- OUTSIDE RECORDS SUMMARY | 2023-11-12 10:39 | External Medical Summary | Summary of Care ---
Author Name Unknown Organization [facility] Address [address] [place] [address] Phone [phone] Care Team Providers Care Kennel Assistant Name Role Phone GayeLuis brody Dionne PEDRO Primary Care Provider [phone] Reason for Visit * Reason Comments New Consultation Encounter Details Date Type Department Care Team (Late st Contact Info) Description 09/30/2023 12:30 PM EST Office Visit [facility] 16 [place] [address] Wu Varma DO 16 [place], [place] [phone] Senile ectropion of both lower eyelids* Allergies [...] both lower eyelids RT EYE ONCE 09/30/2023 09/30/2023 Ended documented as of this encounter (statuses [...] Progress Notes * Wu Varma DO - 09/30/2023 12:13 PM EST Radha Cardenas [...] EST Anticoagulation Pharmacy Call Center WB 58-60 [facility] [place] [address] Ccps, [facility] 58 60 [facility] [place] [address] 10/07/2023 4:00 PM EST Immunization/Injection Hematology/Oncology Treatment, [place] [address] [place] [address] Clotilde, Chair 8 Hem Onc [place] [address] [place] [address] 10/21/2023 3:30 PM EST Immunization/Injection Hematology/Oncology Treatment, [place] 200 [place] [address] Nurse, Med 4 200 [facility] [place] [address] 11/04/2023 1:15 PM EST Office Visit Hematology/Oncology [facility] 200 [facility] [place], [place] [address] Juventino Sarah MD 200 [facility] [place], [place] [address] 11/04/2023 1:45 PM EST Immunization/Injection Hematology/Oncology Treatment, [place] 200 [place] [address] Nurse, Med 4 200 [facility] [place] [place] [address] 01/05/2024 3:40 PM EDT Office Visit Family Practice [facility] 200 [facility] [place], [place] [address] Luis Whalen, 200 [facility], [place] [address] Health Maintenance Due Date Last Done Comments [...] Dose Rate Site Tobramycin-dexAMETHasone (Tobradex) ophthalmic ointment Right eye, ONCE, On Sarah 09/30/23 at 1315, For 1 dose Given 09/30/2023 12:59 PM EST Eye Right documented in this encounter Advance Directives Documents on File Type Date Recorded Patient Cell Lead Expl anation Power of Union Steward 11/28/2003 Care Teams Kennel Assistant Relationship Specialty Start Date End Date Luis Whalen DO [address] [place] [address] PCP - General Family Medicine 11/09/18 documented as of this encounter
--- OUTSIDE RECORDS SUMMARY | 2023-11-12 10:39 | External Medical Summary | Summary of Care ---
Author Name Unknown Organization [facility] Address [address] [place] [address] Phone [phone] Care Team Providers Care Barrel Centerer Name Role Phone Koby Luis Dionne PEDRO Primary Care Provider [phone] Reason for Visit * Reason Comments Dosage Adjustment Via Phone (anticoag Cl inic) Encounter Details Date Type Department Care Team (Latest Contact Info) Description 09/29/2023 4:45 PM EST Anticoagulation Pharmacy Call Center 58-[address] [place] [address] Ccps, [facility] 58 60 [place] [address] Paroxysmal atrial fibrillation (HCC)*; H/O traumatic subdural [...] as of this encounter (statuses as of 09/29/2023) Medications Medication Sig Dispensed Refills Start Date [...] as of this encounter (statuses as of 09/29/2023) Active Problems Problem Noted Date Diagnosed Date [...] as of this encounter (statuses as of 09/29/2023) Resolved Problems Problem Noted Date Diagnosed Date [...] as of this encounter (statuses as of 09/29/2023) Immunizations Name Administration Dates Next Due COVID-19 [...] this encounter Progress Notes * Alaina Rodriguez, [facility] - 09/29/2023 9:38 AM EST Medication Therapy Disease Management - Anticoagulation Patient: Radha Cardenas | : 1935 Care Home/SNF Patient Anticoagulation Encounter Patient is a resident at: [facility] [place] -- Fax sent to number listed above detailing plan of care below. Please notify clinic with any unusual brusing or bleeding, N/V/D, medication or diet changes or anymissed or extra doses of Coumadin. Subjective Patient-Reported Symptoms: Objective Current Warfarin Dose As of 09/29/2023 Warfarin maintenance plan: 2 mg (1 mg x 2) every Wed, Fri; 1.5 mg (1 mg x 1.5) all other days INR Result As of 09/29/2023 INR goal: 2.0-3.0 INR used for dosin.6 (09/29/2023) Assessment & Plan Warfarin Plan As of 09/29/2023 Full warfarin instructions: 2 mg every Wed, Fri; 1.5 mg all other days No change documented: Alaina Rodriguez RPh Next INR check: 10/06/2023 Repeat PT/INR in 1 week(s) Weekly dose: not changed Additional Dosing Information: Description Amiodarone decreased 12/10/2020 Alaina Rodriguez RPh Clinical Pharmacist 09/29/2023, 9:38 AM documented in this encounter Plan of Treatment Upcoming Encounters Date Type Department Care Team (Late st Contact Info) Description 09/30/2023 12:30 PM EST Office Visit [address] [address] Wu Varma, [address] [place] [address] 10/07/2023 4:00 PM EST Immunization/Inje ction Hematology/Oncology Treatment, [address] [address] Clotilde, Chair 8 Hem Onc [address] [place] [address] 10/21/2023 3:30 PM EST Immunization/Inje ction Hematology/Oncology Treatment, [address] [address] Nurse, Med [address] [place] [address] [place] [address] 11/04/2023 1:15 PM EST Office Visit Hematology/Oncology [facility] 200 [facility] [place], [place] [address] Juventino Sarah MD 200 [facility] [place], [place] [address] 11/04/2023 1:45 PM EST Immunization/Inje ction Hematology/Oncology Treatment, [place] 200 [facility], [place] [address] Nurse, Med 4 200 [facility] [place] [address] 01/05/2024 3:40 PM EDT Office Visit Family Practice [facility] 200 [facility] [place], [place] [address] Luis Whalen, 200 [facility] [place], [place] [address] Health Maintenance Due Date Last Done Comments Hepatitis B (1 of 3 - Risk 3-dose series) 1994 Zoster Vaccines (2 of 3) 09/24/2008 07/30/2008 Nephrology Referral 10/05/2014 10/05/2013 Albumin/Creatinine Ratio 04/06/202004/06/ 019, 06/08/2018, 07/01/2017, Additional history exists Diabetic [...] Documents on File Type Date Recorded Patient Ceramic Sprayer Expl anation Power of Platform Material Handler Manager 11/28/2003 Care Teams Barrel Centerer Relationship Specialty Start Date End Date Luis Whalen DO 200 [place] [address] PCP - General Family Medicine 11/09/18 documented as of this encounter"
--- OUTSIDE RECORDS SUMMARY | 2023-11-12 10:39 | External Medical Summary | Summary of Care ---
Author Name Unknown Organization [facility] Address [address] [place] [address] Phone [phone] Care Team Providers Care Bisque Placer Name Role Phone Koby Lius Dionne PEDRO Primary Care Provider [phone] Reason for Visit * Reason Comments Dosage Adjustment Via Phone (anticoag Cl inic) Encounter Details Date Type Department Care Team (Latest Contact Info) Description 09/29/2023 4:45 PM EST Anticoagulation Pharmacy Call Center [address] [place] [address] Ccps, [facility] 58 60 [facility] [place] [address] Paroxysmal atrial fibrillation (HCC)*; H/O traumatic subdural [...] this encounter Progress Notes * Alaina Rodriguez, formerly [facility] - 09/29/2023 9:38 AM EST Medication Therapy Disease Management - Anticoagulation Patient: Radha Cardenas | : 1935 Fdc/SNF Patient Anticoagulation Encounter Patient is a resident at: [facility] -- [place] -- Fax sent to [...] Description 09/30/2023 12:30 PM EST Office Visit [address] [address] Wu Varma, 16 [place] [address] 10/06/2023 4:45 PM EST Anticoagulation Pharmacy Call Center WB [address] [facility] [place] [address] Ccps, [facility] 58 60 [facility] [place] [address] 10/07/2023 4:00 PM EST Immunization/Injection [facility]ematology[facility], [place] [facility] [address] Clotilde, Chair 8 Hem Onc Scene 200 [place] [address] 10/21/2023 3:30 PM EST Immunization/Injection Hematology/Oncology Treatment, [place] 200 [place] [address] Nurse, Med 4 200 [facility] [place], [place] [address] 11/04/2023 1:15 PM EST Office Visit Hematology/Oncology [facility] 200 [facility] [place] [address] Juventino Sarah MD 200 [place] [address] 11/04/2023 1:45 PM EST Immunization/Injection Hematology/Oncology Treatment, [place] 200 [facility], [place] [address] Nurse, Med 4 200 [facility] [place], [place] [address] 01/05/2024 3:40 PM EDT Office Visit Family Practice [facility] 200 [facility] [place], [place] [address] Luis Whalen, 200 [place] [address] Health Maintenance Due Date Last Done Comments [...] Documents on File Type Date Recorded Patient General Office Associate Expl anation Power of Applied Researcher 11/28/2003 Care Teams Bisque Placer Relationship Specialty Start Date End Date Luis Whalen DO [address] [place] [address] PCP - General Family Medicine 11/09/18 documented as of this encounter"
--- OUTSIDE RECORDS SUMMARY | 2023-11-12 10:39 | External Medical Summary ---
Author Name Unknown Address Unknown Organization [facility] [address] [place] [address] Laboratory Report Ordering Provider Test Date Status VITA LI 09/29/2023 06:20:00 Final Observation Date Value Abnormality Reference (Units ) Status SYNC LEUKOCYTES IN BLOOD BY AUTOMATED COUNT 09/29/2023 06:20:00 6.10 4.00-10.80 (K/uL) Final Segs 09/29/2023 06:20:00 52.3 40.0-75.0 (%) Final Lymphs % 09/29/2023 06:20:00 36.1 18.0-42.0 (%) Final Monos 09/29/2023 06:20:00 9.5 1.0-11.0 (%) Final Eosinophils 09/29/2023 06:20:00 1.8 0.0-6.0 (%) Final Basos 09/29/2023 06:20:00 0.3 0.0-2.0 (%) Final Absolute Segs 09/29/2023 06:20:00 3.19 1.80-7.70 (K/uL) Final Lymphs, absolute 09/29/2023 06:20:00 2.20 1.00-4.80 (K/ul) Final Monos, Abs 09/29/2023 06:20:00 0.58 0.00-1.10 (K/uL) Final Eos, Abs 09/29/2023 06:20:00 0.11 0.00-0.70 (K/uL) Final Basos, Abs 09/29/2023 06:20:00 0.02 0.00-0.20 (K/uL) Final Performing Location [facility] [address] [place] [address]
--- OUTSIDE RECORDS SUMMARY | 2023-11-12 10:39 | External Medical Summary | Summary of Care ---
Author Name Unknown Organization [facility] Address [address] [place] [address] Phone [phone] Care Team Providers Care Accounts Administrator Name Role Phone Moy Hassan DO Primary Care Provider [phone] Reason for Visit * Reason Onset Date Comments Medication Refill 09/28/2023 Encounter Details Date Type Department Care Team (Late st Contact Info) Description 09/28/2023 Refill Family Practice [facility] [place] [address] [place] [address] Moy Hassan DO 200 [facility] [place] [address] Allergies Active Allergy Reactions Criticality Noted Date [...] as of this encounter (statuses as of 09/28/2023) Medications Medication Sig Dispensed Refills Start Date [...] morning. 30 Tablet 11 09/28/19 24 Active Amiodarone HCl 200 MG Oral Tablet (Cordarone) Take 1 Tablet by mouth in the morning. 30 Tablet 4 05/04/20 23 024 Discontin ued(Refil l) documented as of this encounter (statuses as of 09/28/2023) Active Problems Problem Noted Date Diagnosed Date [...] as of this encounter (statuses as of 09/28/2023) Resolved Problems Problem Noted Date Diagnosed Date [...] as of this encounter (statuses as of 09/28/2023) Immunizations Name Administration Dates Next Due COVID-19 [...] Telephone Encounter - Moy Hassan DO - 09/28/2023 3:54 PM ESTSigned Prescriptions: Disp Refills Amiodarone HCl 200 MG Oral Tablet (Cordaro*30 Tab*11 Sig: Take 1 Tablet by mouth in the morning. Authorizing Provider: MOY HASSAN * Telephone Encounter - Maricel Palacio chief operating engineer - 09/28/2023 2:20 PM EST [facility] asking high priority stating they are completely out of medication. Did you pend patient's preferred pharmacy and medication before forwarding?yes Pharmacy: [facility] [address] Pending Prescriptions: Disp Refills Amiodarone HCl 200 MG Oral Tablet (Cordar*30 Tab*4 Sig: Take 1 Tablet by mouth in the morning. Last Visit: 09/06/2023 (in office), 10/29/2020 (telemedicine) Next Visit: 01/05/2024 If no future appointments scheduled, and last appointment is greater than a year ago, please schedule patient for a follow-up appointment Last date the medication was ordered: 05/04/2023 Is this request for a controlled substance?No [...] Care Team (Late st Contact Info) Description 09/29/2023 4:45 PM EST Anticoagulation Pharmacy Call Center [address] [place] [address] [facility], [facility] 58 60 [place] [address] 09/30/2023 12:30 PM EST Office Visit [address] [address] Wu Varma, 16 [place] [address] 10/07/2023 4:00 PM EST Immunization/Injection Hematology/Oncology Treatment, [address] [address] Clotilde, Chair 8 Hem Onc [place] [address] [place] [address] 10/21/2023 3:30 PM EST Immunization/Injection Hematology/Oncology Treatment, [address] [address] Nurse, Med [address] [place] [address] [place] [address] 11/04/2023 1:15 PM EST Office Visit Hematology/Oncology [facility] [address] [place] [address] Juventino Sarah MD 200 [facility] [place] [address] 11/04/2023 1:45 PM EST Immunization/Injection [facility]ematology[facility]cology Treatment, [place] [facility] [address] Nurse, Med 4 [address] [place] [address] 01/05/2024 3:40 PM EDT Office Visit Family Practice [facility] 200 [facility] [place] [address] Moy Hassan, 200 [facility] [place] [address] Health Maintenance Due Date Last Done Comments [...] 06/03/2018, Additional history exists Phosphate 02/04/2024 02/03/2023, 0705/2020, 08/11/2019, Additional history exists Diabetic Eye Exam 02/23/2024 02/22/2023, , 02/11/2021, Additional history exists HbA1c 03/07/2024 09/06/2023, 01/18, 10/21/2022, Additional history exists TSH 09/06/2024 09/06/2023, 01/18, 05/15/2022, Additional history exists Hgb 09/22/2024 09/22/2023, 08/21, 09/08/2023, Additional history exists Pneumococcal Vaccine: 65+ Years [...] Documents on File Type Date Recorded Patient Painter Chassis Expl anation Power of Industrial Engineering 11/28/2003 Care Teams Accounts Administrator Relationship Specialty Start Date End Date Moy Hassan DO [address] [place] [address] PCP - General Family Medicine 11/09/18 documented as of this encounter
--- OUTSIDE RECORDS SUMMARY | 2023-11-12 10:39 | External Medical Summary | Summary of Care ---
Author Name Unknown Organization [facility] Address [address] [place] [address] Phone [phone] Care Team Providers Care Arcade Attendant Name Role Phone Luis Whalen DO Primary Care Provider [phone] Encounter Details Date Type Department Care Team (Late st Contact Info) Description 09/29/2023 Orders Only Lab Mobile Phlebotomy [facility] [address] [place], [place] [id number] Luis Whalen DO [address] [place] [address] Atrial fibrillation, unspecified type (HCC)* [...] Call Center WB [address] [place] [address] [facility] 58 60 [facility] [place] [address] 09/30/2023 12:30 PM EST Office Visit [address] [place] [address] Wu Varma, 16 [place] [address] 10/07/2023 4:00 PM EST Immunization/Injection Hematology/Oncology Treatment, [place] 200 [facility] [place] [address] Park, Chair 8 Hem Onc [place] [address] [place] [address] 10/21/2023 3:30 PM EST Immunization/Injection Hematology/Oncology Treatment, [place] 200 [facility] [place] [address] Nurse, Med 4 200 [place] [address] 11/04/2023 1:15 PM EST Office Visit Hematology/Oncology [facility] [place] [address] [facility] [address] [place] [address] Juventino Sarah MD 200 [facility] [place], [place] [address] 11/04/2023 1:45 PM EST Immunization/Injection Hematology/Oncology Treatment, [address], [place] [address] Nurse, Med 4 200 [facility] [place], [place] [address] 01/05/2024 3:40 PM EDT Office Visit Family Practice [facility] [place] [address] [facility] [address] [place], [place] [address] Luis Whalen DO 200 [facility] [place], [place] [address] Scheduled Orders Name Type Priority Associated Diagnoses Orde r Schedule PT INR Lab Routine Atrial fibrillation, unspecified type (HCC) Expected: 09/29/2023, Expires: 09/29/2024 Health Maintenance Due Date Last Done Comments [...] Documents on File Type Date Recorded Patient Carpentry Supervisor Expl anation Power of Gamma Operator 11/28/2003 Care Teams Arcade Attendant Relationship Specialty Start Date End Date Luis Whalen DO [address] [place] [address] PCP - General Family Medicine 11/09/18 documented as of this encounter
--- OUTSIDE RECORDS SUMMARY | 2023-11-12 10:40 | External Medical Summary ---
Author Name Unknown Address Unknown Organization [facility] [address] [place] [address] Laboratory Report Ordering Provider Test Date Status VITA LI 09/22/2023 06:10:00 Final Warfarin Therapy
INR: 2 .0-3.0 conventional anticoagulation
INR: 2.5- 3.5 high intensity anticoagulation Observation Date Value Abnormality Reference (Units ) Status PT 09/22/2023 06:10:00 33.5 Above high normal 11 .6-15.2 (seconds) Final INR 09/22/2023 06:10:00 3.3 Above high normal 0. 8-1.2 Final Performing Location [facility]ORY [facility] [address] [place] [address]
--- OUTSIDE RECORDS SUMMARY | 2023-11-12 10:40 | External Medical Summary ---
Author Name Unknown Address Unknown Organization [facility] [address] [place] [address] Laboratory Report Ordering Provider Test Date Status VITA LI 09/22/2023 06:10:00 Final Observation Date Value Abnormality Reference (Units ) Status WBC, Total 09/22/2023 06:10:00 6.24 4.00-10.8 0 (K/uL) Final RBC 09/22/2023 06:10:00 3.29 3.85-5.15 (M/uL) Final Hemoglobin 09/22/2023 06:10:00 8.5 Below low normal 12 .0-15.3 (g/dL) Final HCT 09/22/2023 06:10:00 28.3 Below low normal 36. 0-45.2 (%) Final MCV 09/22/2023 06:10:00 86.0 81.5-97.5 (fL) Final MCH 09/22/2023 06:10:00 25.8 27.0-34.0 (pg) Final MCHC 09/22/2023 06:10:00 30.0 32.0-36.0 (g/dL) Final RDW 09/22/2023 06:10:00 17.8 11.5-15.5 (%) Final Platelets 09/22/2023 06:10:00 104 Below low normal 140 -400 (K/uL) Final MPV 09/22/2023 06:10:00 10.4 6.6-11.1 ( fL) Final Performing Location LABORATORY [facility] [address] [place] [address]
--- OUTSIDE RECORDS SUMMARY | 2023-11-12 10:40 | External Medical Summary | Summary of Care ---
Author Name Unknown Organization [facility] Address [address] [place] [address] Phone [phone] Care Team Providers Care Railroad Car Letterer Name Role Phone Koby Luis Dionne PEDRO Primary Care Provider [phone] Reason for Visit * Reason Comments Dosage Adjustment Via Phone (anticoag Cl inic) Encounter Details Date Type Department Care Team (Latest Contact Info) Description 09/22/2023 4:45 PM EST Anticoagulation Pharmacy Call Center [address] [place] [address] Ccp, [facility] 58 60 [place] [address] Paroxysmal atrial fibrillation (HCC)*; H/O traumatic subdural [...] as of this encounter (statuses as of 09/22/2023) Medications Medication Sig Dispensed Refills Start Date [...] *HEART HEALTH* 12 Tablet 5 03/23/20 Active glipiZIDE ER 5 MG Oral Tablet Extended Release 24 Hour TAKE 2 TABLETS BY MOUTH IN THE MORNING. - PER PREVIOUS ORDER: TAKE 30-MINUTES BEFORE MEAL 180 Tablet 1 04/05/20 Active Amiodarone HCl 200 MG Oral Tablet (Cordarone) Take 1 Tablet by mouth in the morning. 30 Tablet 4 05/04/20 Active Loratadine 10 MG Oral Tablet (Claritin)Indications:No [...] WED, , ) 20 Tablet 1 08/24/20 Active Warfarin Sodium 2 MG Oral Tablet (Coumadin)Indications:Pa roxysmal atrial fibrillation (HCC) Take as directed by anticoagulation clinic (1 TAB BY MOUTH FOUR TIMES A WEEK ON WED, WED, WED, SAT) 16 Tablet 4 08/24/20 Active PreserVision AREDS 2 Oral Capsule Take 1 Capsule by mouth in the morning and 1 Capsule before bedtime. 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 1 hour before the first meal of the day. 30 Capsule 5 09/06/20 Active documented as of this encounter (statuses as of 09/22/2023) Active Problems Problem Noted Date Diagnosed Date [...] as of this encounter (statuses as of 09/22/2023) Resolved Problems Problem Noted Date Diagnosed Date [...] as of this encounter (statuses as of 09/22/2023) Immunizations Name Administration Dates Next Due COVID-19 [...] this encounter Progress Notes * Alaina Rodriguez, [facility] - 09/22/2023 10:40 AM EST Images from the original note were not included. Medication Therapy Disease Management - Anticoagulation Patient: Radha Cardenas | : 1935 Senior Living/SNF Patient Anticoagulation Encounter Patient is a resident at: [facility] [place] -- Fax sent to number listed above detailing plan of care below. Please notify clinic with any unusual brusing or bleeding, N/V/D, medication or diet changes or anymissed or extra doses of Coumadin. Subjective Patient-Reported Symptoms: Objective Current Warfarin Dose As of 09/22/2023 Warfarin maintenance plan: 2 mg (1 mg x 2) every Mon, Wed, Fri; 1.5 mg (1 mg x 1.5) all other days INR Result As of 09/22/2023 INR goal: 2.0-3.0 INR used for dosin.3 (09/22/2023) Assessment & Plan Warfarin Plan As of 09/22/2023 Full warfarin instructions: 09/22: Hold; Otherwise 2 mg every Wed, Fri; 1.5 mg all other days Next INR check: 09/29/2023 Repeat PT/INR in 1 week(s) Weekly dose: decreased Additional Dosing Information: Description Amiodarone decreased 12/10/2020 Alaina Rodriguez [facility] Clinical Pharmacist 09/22/2023, 10:41 AM documented in this encounter Plan of Treatment Upcoming Encounters Date Type Department Care Team (Late st Contact Info) Description 09/23/2023 3:30 PM EST Immunization/Inje ction Hematology/Oncology Treatment, [address] [address] Nurse, Med 4 [address] [place] [address] 09/30/2023 12:30 PM EST Office Visit [facility] 16 [place] [address] Wu Varma DO 16 [place] [address] 10/07/2023 3:30 PM EST Immunization/Inje ction Hematology/Oncology Treatment, [address] [address] Nurse, Med 4 [address] [place] [address] 10/21/2023 3:30 PM EST Immunization/Inje ction Hematology/Oncology Treatment, [place] 200 [facility], [place] [address] Nurse, Med 4 200 [address] [place], [place] [address] 11/04/2023 1:15 PM EST Office Visit Hematology/Oncology [facility] 200 [facility] [place], [place] [address] Juventino Sarah MD 200 [facility] [place], [place] [address] 11/04/2023 1:45 PM EST Immunization/Inje ction Hematology/Oncology Treatment, [place] 200 [facility], [place] [address] Nurse, Med 4 [address] [place], [place] [address] 01/05/2024 3:40 PM EDT Office Visit Family Practice [facility] 200 [facility] [place], [place] [address] Luis Whalen DO 200 [facility] [place] [address] Health Maintenance Due Date Last Done Comments Hepatitis B (1 of 3 - Risk 3-dose series) 1994 Zoster Vaccines (2 of 3) 09/24/2008 07/30/2008 Nephrology Referral 10/05/2014 10/05/2013 Albumin/Creatinine Ratio 04/06/2020 07/ 019, 06/08/2018, 07/01/2017, Additional history exists Diabetic [...] Documents on File Type Date Recorded Patient Decision Support Manager Expl anation Power of Steel Division Supervisor 11/28/2003 Care Teams Railroad Car Letterer Relationship Specialty Start Date End Date Luis Whalen DO 200 [facility] [place] [address] PCP - General Family Medicine 11/09/18 documented as of this encounter"
--- OUTSIDE RECORDS SUMMARY | 2023-11-12 10:40 | External Medical Summary | Summary of Care ---
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 Procedures NV INJ RETACRIT NON-ESRD USE NV EPOETIN JJ, NON-ESRD Juventino Sarah MD [address] [place] [address] Anc Hem/Onc Lia Mabry DEPT CLOSED - 08/03/[address] [place] [address] Referral ID Status Reason Start Date Expiration Date V isits Requested Visits Authorized [id number] Authorized 09/30/2021 09/19/2099 99 99 Encounter Details Date Type Department Care Team (Latest Contact Info) Description 09/23/2023 3:30 PM EST Immunization/ Injection Hematology/Oncology Treatment, [place] [address] [place] [address] Nurse, Med [address] [place] [address] 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 - PER PREVIOUS ORDER: TAKE 30-MINUTES BEFORE MEAL 180 Tablet 1 04/05/20 23 Active Amiodarone HCl 200 MG Oral [...] WED, FRI, SAT) 16 Tablet 4 08/24/20 Active PreserVision [...] as of this encounter (statuses as of 09/23/2023) Active Problems Problem Noted Date Diagnosed Date [...] as of this encounter (statuses as of 09/23/2023) Resolved Problems Problem Noted Date Diagnosed Date [...] as of this encounter (statuses as of 09/23/2023) Immunizations Name Administration Dates Next Due COVID-19 [...] Sign Reading Time Taken Comments Blood Pressure 123/59 09/23/2023 3:44 PM EST Pulse 80 09/23/2023 3:44 PM EST Temperature - - Respiratory Rate - - Oxygen Saturation - - Inhaled Oxygen Concentration - - Weight - - Height - - Body Mass Index - - documented in this encounter Nursing Notes * Ariana Long LPN - 09/23/2023 3:54 PM EST Pt arrived for Procrit injection. Hgb 8.5. BP WNL. Administered in RAFAEL. Pt tolerated well. To return in 2 weeks. Discharged in stable condition. documented in this encounter Plan of Treatment Upcoming Encounters Date Type Department Care Team (Late st Contact Info) Description 09/29/2023 4:45 PM EST Anticoagulation Pharmacy Call Center [address] [place] [address] [facility] 58 60 [place] [address] 09/30/2023 12:30 PM EST Office Visit [facility] [address] [address] Wu Varma, 16 [place] [address] 10/07/2023 4:00 PM EST Immunization/Injection Hematology/Oncology Treatment, [place] [address] [place] [address] Clotilde Chair 8 Hem Onc [place] [address] [place] [address] 10/21/2023 3:30 PM EST Immunization/Injection Hematology/Oncology Treatment, [place] 200 [place] [address] Nurse, Med 4 200 [facility] [place] [place] [address] 11/04/2023 1:15 PM EST Office Visit Hematology/Oncology [facility] 200 [facility] [place] [address] Juventino Sarah MD 200 [facility] [place] [address] 11/04/2023 1:45 PM EST Immunization/Injection Hematology/Oncology Treatment, [place] 200 [place] [address] Nurse, Med 4 200 [facility] [place] [address] 01/05/2024 3:40 PM EDT Office Visit Family Practice [facility] 200 [facility] [place], [place] [address] Luis Whalen, 200 [place] [address] Health Maintenance Due Date Last Done Comments [...] stage 4 chronic kidney disease treated with erythropoietin- Primary documented in this encounter Administered Medications Inactive Administered Medications - up to 3 most recent administrations Medication Order MAR Action Action [place] [address] UNIT/ML inj 40,000 Units 40,000 Units, Subcutaneous, ONCE, On Sarah 09/23/23 at 1615, For 1 dose Given 09/23/2023 3:49 PM EST 40,000 Units Arm Left Upper documented in this encounter Advance Directives Documents on File Type Date Recorded 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
--- OUTSIDE RECORDS SUMMARY | 2023-11-12 10:40 | External Medical Summary ---
Author Name Unknown Address Unknown Organization [facility] [place] [address] [place] [address] Laboratory Report Ordering Provider Test Date Status VITA LI 09/22/2023 06:10:00 Final Observation Date Value Abnormality Reference (Units ) Status SYNC LEUKOCYTES IN BLOOD BY AUTOMATED COUNT 09/22/2023 06:10:00 6.24 4.00-10.80 (K/uL) Final Segs 09/22/2023 06:10:00 53.9 40.0-75.0 (%) Final Lymphs % 09/22/2023 06:10:00 35.7 18.0-42.0 (%) Final Monos 09/22/2023 06:10:00 8.8 1.0-11.0 (%) Final Eosinophils 09/22/2023 06:10:00 1.3 0.0-6.0 (%) Final Basos 09/22/2023 06:10:00 0.3 0.0-2.0 (%) Final Absolute Segs 09/22/2023 06:10:00 3.36 1.80-7.70 (K/uL) Final Lymphs, absolute 09/22/2023 06:10:00 2.23 1.00-4.80 (K/ul) Final Monos, Abs 09/22/2023 06:10:00 0.55 0.00-1.10 (K/uL) Final Eos, Abs 09/22/2023 06:10:00 0.08 0.00-0.70 (K/uL) Final Basos, Abs 09/22/2023 06:10:00 0.02 0.00-0.20 (K/uL) Final Performing Location LABORATORY [facility] ROSS [address] [place] [address]
--- OUTSIDE RECORDS SUMMARY | 2023-11-12 10:40 | External Medical Summary | Summary of Care ---
Author Name Unknown Organization [facility] Address [address] [place] [address] Phone [phone] Care Team Providers Care Form Setter Steel Pan Forms Name Role Phone Luis Whalen Primary Care Provider [phone] [phone] Encounter Details Date Type Department Care Team (Late st Contact Info) Description 09/22/2023 Orders Only Lab Mobile [place]bot[place] [facility] [address], [place] [id number] Alaina Rodriguez, [facility] [address] [place] [address] Atrial fibrillation (HCC)* Allergies Active Allergy Reactions Criticality Noted [...] >38C(100.5F) or Pain, Moderate. 100 Tablet 12/27/19 22 Active Fluticasone Propionate 50 MCG/ACT Nasal Suspension (Flonase)Indications:Chr onic rhinitis 2 SPRAYS IN EACH NOSTRIL AT BEDTIME NEEDED FOR CONGESTION 48 g 1 03/14/20 22 Active Anti-Diarrheal 2 MG Oral Tablet (Loperamide) ONE TAB BY MOUTH DAILY BUT HOLD IF CONSTIPATION. 30 Tablet 03/27/20 22 Active Additional Information Patient taking [...] WED, WED, WED) 16 Tablet 4 08/24/20 Active PreserVision AREDS [...] mRNA, LNP-s, No Pre serve, 2-Dose Series ([employer]) 10/19/2020,09/28/2020 Pneumococcal Conjugate Vacc, 13 Valent (Prevnar) [...] Care Team (Late st Contact Info) Description 09/22/2023 4:45 PM EST Anticoagulation Pharmacy Call Center WB [phone] [place] [address] [facility] 58 60 [facility] [place] [address] 09/23/2023 3:30 PM EST Immunization/Injection Hematology/Oncology Treatment, [place] 200 [facility], [place] [address] Nurse, Med 4 [address] [place] [address] 09/30/2023 12:30 PM EST Office Visit [facility] [address] [place] [address] Wu Varma, [address] [place] [address] 10/07/2023 3:30 PM EST Immunization/Injection [facility] [place] [facility] [address] Nurse, Med 4 [address] [place] [address] 10/21/2023 3:30 PM EST Immunization/Injection Hematology/Oncology Treatment, [place] 200 Jake Marcus [place] [address] Nurse, Med 4 [address] [place] [address] 11/04/2023 1:15 PM EST Office Visit Hematology/Oncology [facility] [place] [address] [place], [place] [address] Juventino Sarah MD [address] [place], [place] [address] 11/04/2023 1:45 PM EST Immunization/Injection Hematology/Oncology Treatment, [place] 200 [facility] [place] [address] Nurse, Med 4 [address] [place], [place] [address] 01/05/2024 3:40 PM EDT Office Visit Family Practice [facility] [place] [address] [place], [place] [address] Luis Whalen, DO [address] [place] [address] Scheduled Orders Name Type Priority Associated Diagnoses Orde r Schedule PT INR Lab Routine Atrial fibrillation (HCC) Expected: 09/22/2023, Expires: 09/22/2024 Health Maintenance Due Date Last Done Comments [...] 09/06/2023, 01/18, 05/15/2022, Additional history exists Hgb 09/09/2024 09/09/2023, 08/21, 09/06/2023, Additional history exists Pneumococcal Vaccine: 65+ Years Completed 03/26/2017, 07/26/2015, 09/20/2000, Additional history exists GARDASIL-HPV IMMUNIZATION SERIES Aged Out No longer eligible based on patient's age to complete this topic MENINGOCOCCAL (MENACTRA/MENVEO) Aged Out No longer eligible based on patient's age to complete this topic documented as of this encounter Medical Devices Not on filedocumented as of this encounter Visit Diagnoses Diagnosis Atrial fibrillation (HCC)- Primary Atrial fibrillation documented in this encounter Advance Directives Documents on File Type Date Recorded Patient Manager Nursing Expl anation Power of Cloth Covered Helmet Puller 11/28/2003 Care Teams Form Setter Steel Pan Forms Relationship Specialty Start Date End Date Luis Whalen DO 200 [facility] [place] [address] PCP - General Family Medicine 11/09/18 documented as of this encounter
--- OUTSIDE RECORDS SUMMARY | 2023-11-12 10:41 | External Medical Summary ---
Author Name Unknown Address Unknown Organization [id number]:[facility] [place] [address] [place] [address] Laboratory Report Ordering Provider Test Date Status MO WINTER 09/10/2023 05:45:00 Final Observation Date Value Abnormality Reference (Units ) Status Vitamin B12 09/10/2023 05:45:00 1387 Above high normal 232-1245 (pg/mL) Final Performing Location [facility] - [address] [place] [address]
--- OUTSIDE RECORDS SUMMARY | 2023-11-12 10:41 | External Medical Summary | Summary of Care ---
Author Name Unknown Organization [facility] Address [address] [place] [address] Phone [phone] Care Team Providers Care Police Lieutenant Precinct Name Role Phone Luis Whalen DO Primary Care Provider [phone] Reason for Visit * Reason Comments Re-Check Encounter Details Date Type Department Care Team (Latest Contact Info) Description 09/06/2023 12:40 PM EST Office Visit Family Practice [facility] 200 [facility] [place] [address] Luis Whalen DO 200 [facility] [place] [address] Type 2 diabetes mellitus with hemoglobin A1c goal of less than 8.0% ([facility])*; Acquired hypothyroidism; Gastroesophageal reflux disease without esophagitis; Need for vaccination; 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 1 hour before the first meal of the day. 30 Capsule 5 09/06/20 23 Active PreserVision AREDS 2 Oral Capsule Take by mouth 1 Capsule in the morning AND 1 Capsule before bedtime. 60 Capsule 3 12/26/19 22 023 Discontin ued(Refil l) Abrysvo 120 MCG/0.5ML Intramuscular Solution Reconstituted (RSV Pre-Fusion F A&B Vac Rcmb) Inject 0.5 mL into a large muscle once for 1 dose. 1 Each 0 09/06/20 23 023 documented as of this encounter (statuses as of 09/15/2023) Active Problems Problem Noted Date Diagnosed Date [...] as of this encounter (statuses as of 09/15/2023) Resolved Problems Problem Noted Date Diagnosed Date [...] as of this encounter (statuses as of 09/15/2023) Immunizations Name Administration Dates Next Due COVID-19 [...] Sign Reading Time Taken Comments Blood Pressure 116/60 09/06/2023 12:50 PM EST Pulse 69 09/06/2023 12:50 PM EST Temperature 35.2 C (95.3 F) 09/06/2023 12:[address] Respiratory Rate 16 09/06/2023 12:50 PM EST Oxygen Saturation 94% 09/06/2023 12:50 PM EST Inhaled Oxygen Concentration - - Weight 56.3 kg (124 lb 3.2 oz) 09/06/2023 12:50 PM EST Height 152.4 cm (5') 09/06/2023 12:50 PM EST Body Mass Index 24.26 09/06/2023 12:50 PM EST documented in this encounter Progress Notes * Luis Whalen, DO - 09/06/2023 12:58 PM EST Subjective: Radha Cardenas is a 88 year old female. Chief Complaint Patient presents with Re-Check HPI: Threw up twice after breakfast. [place] phlegmy more regularly. Always after breakfast. Wakes up and has some gunk in the night too. We discussed possible GERD. Can fall asleep on the drop of a hat after breakfast. Not doing a lot. Sleeping better and not getting up as much. Will check thyroid today. Weight up by a pound from last visit. BG still goes up at times. Sometimes up to the 200s. RSV shot discussed. Will get today. Flu shot done. COVID shot done in the Fall. BP good today. Working on more salt. 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, without long-term current use of insulin (HCC) E11.22, N18.4 Hypertensive kidney disease with chronic kidney disease stage IV (HCC) I12.9, N18.4 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 Anemia D64.9 Warfarin anticoagulation Z79.01 Abnormality of gait R26.9 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 DX:E11.9 300 Each 3 Glucose Blood (AirtimeUCH ULTRA BLUE) STRP Use one strip 3 [...] as needed for Diarrhea.) 30 Tablet 4 Rosuvastatin Calcium 10 MG Oral Tablet 1 TAB BY MOUTH AT BEDTIME FOR HYPERLIPIDEMIA 90 Tablet 3 Calmoseptine 0.44-20.6 % External Ointment (Menthol-Zinc Oxide) Apply topically to affected area every evening. Apply to scab 20 g 3 Vitamin D 50 MCG (1999 UT) Oral [...] ON WED,WED,WED *HEART HEALTH* 12 Tablet 5 glipiZIDE ER 5 MG Oral Tablet Extended Release 24 Hour TAKE 2 TABLETS BY MOUTH IN THE MORNING. - PER PREVIOUS ORDER: TAKE 30-MINUTES BEFORE MEAL 180 Tablet 1 Amiodarone HCl 200 MG Oral Tablet (Cordarone) Take 1 Tablet by mouth in the morning. 30 Tablet 4 Loratadine 10 MG Oral Tablet (Claritin) Take 1 Tablet by mouth in the morning. 30 Tablet 5 Metamucil Smooth Texture 58.6 % [...] tongue in the morning. 90 Tablet 3 Azithromycin 500 MG Oral Tablet (Zithromax) Take 1 pill before dental appointments. 3 Tablet 0 Metoprolol Tartrate 25 MG Oral Tablet (Lopressor) [...] clinic (THREE TIMES A WEEK ON SUN, TU, TH) 20 Tablet 1 Warfarin Sodium 2 MG Oral Tablet (Coumadin) Take as directed by anticoagulation clinic (1 TAB BY MOUTH FOUR TIMES A WEEK ON MON, WED, WED, SAT) 16 Tablet 4 PreserVision AREDS 2 Oral Capsule Take 1 Capsule by mouth in the morning and 1 Capsule before bedtime. 60 Capsule 3 No current facility-administered medications for this visit. Review of patient's allergies indicates: Allergen Reactions [...] Rash Amoxicillin Bactrim [Sulfamethoxazole-Trimethoprim] Rash Sulfamethoxazole Trimethoprim OBJECTIVE: BP 116/60 | Pulse 69 | Temp 35.2 C (95.3 F) (Tympanic) | Resp 16 | Ht 1.524 m (5') | Wt 56.3 kg(124 lb 3.2 oz) | SpO2 94% | BMI 24.26 kg/m | BSA 1.54 m Estimated body mass index is 24.26 kg/m as calculated from the following: Height as of this encounter: 1.524 m (5'). Weight as of this encounter: 56.3 kg (124 lb 3.2 oz). BP Readings from Last 3 Encounters: 09/06/23 116/60 08/26/23 120/66 08/13/23 108/63 Wt Readings from Last 3 Encounters: 09/06/23 56.3 kg (124 lb 3.2 oz) 07/01/23 57.8 kg (127 lb 6.4 oz) 05/17/23 55.8 kg (123 lb) ROS: Negative except for above PHYSICAL EXAM: General: alert, healthy, and no distress Head: Normocephalic, No masses, lesions, tenderness or abnormalities Heart: regular rate & rhythm, no murmur, and no gallops Lungs: chest symmetric with normal AP diameter, no chest deformities noted, no chest wall tenderness, lungs clear to auscultation Abdomen: abdomen soft, non-tender, normal bowel sounds, and no masses or organomegaly ASSESSMENT/Plan Type 2 diabetes mellitus with hemoglobin A1c goal of less than 8.0% ([facility]) (Primary) - HEMOGLOBIN A1C; Future; Expected date: 09/06/2023 - ALBUMIN / CREATININE RATIO, URINE; Future; Expected date: 09/06/2023 - HEMOGLOBIN A1C Acquired hypothyroidism - TSH WITH FREE T4 IF INDICATED; Future; Expected date: 09/06/2023 - TSH WITH FREE T4 IF INDICATED Gastroesophageal reflux disease without esophagitis - Omeprazole 20 MG Oral Capsule Delayed Release (PriLOSEC); Take 1 Capsule by mouth in the morning.1 hour before the first meal of the day. 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 I spent a total of 30 minutes on the date of service in preparation, delivery, and documentation ofthe care provided to this patient, excluding any time spent on the performance of any procedure or separately billable services. Will add in PPI to help with what sounds like GERD. The above was discussed and understanding was expressed. Luis Whalen DO documented in this encounter Nursing Notes * Denice Gutierrez LPN - 09/06/2023 12:45 PM EST Radha Hopkinsmmerer presents for 6 month recheck. Medications & HM reviewed. Some questions about her blood sugars Wondering about RSV vaccine. Having nausea in the mornings. documented in this encounter Plan of Treatment Upcoming Encounters Date Type Department Care Team (Late st Contact Info) Description 09/15/2023 4:45 PM EST Anticoagulation Pharmacy Call Center WB [address] [facility] [place] [address] Ccps, [facility] 58 60 [facility] [place] [address] 09/23/2023 3:30 PM EST Immunization/Injection Hematology/Oncology Treatment, [place] 200 [facility] [place] [address] Nurse, Med 4 [address] [place] [address] 09/30/2023 12:30 PM EST Office Visit [facility] [address] [address] Wu Varma, 16 [place] [address] 10/07/2023 3:30 PM EST Immunization/Injection Hematology/[address], [address] [address] Nurse, Med 4 [address] [place] [address] 10/21/2023 3:30 PM EST Immunization/Injection Hematology/Oncology Treatment, [place] [address] [place] [address] Nurse, Med 4 [address] [place] [address] 11/04/2023 1:15 PM EST Office Visit Hematology/Oncology [facility] [place] [address] [place] [address] Juventino Sarah MD [address] [place] [address] 11/04/2023 1:45 PM EST Immunization/Injection Hematology/Oncology Treatment, [place] 200 [facility] [place] [address] Nurse, Med 4 [address] [place] [address] 01/05/2024 3:40 PM EDT Office Visit Family Practice Lia Mabry [place] 200 [facility] [place] [address] Luis Whalen DO 200 [facility] [place] [address] Scheduled Orders Name Type Priority Associated Diagnoses Orde r Schedule ALBUMIN / CREATININE RATIO, URINE Lab Routine Type 2 diabetes mellitus with hemoglobin A1c goal of less than 8.0% (HCC) Expected: 09/06/2023 (Approximate), Expires: 09/05/2024 Health Maintenance Due Date Last Done Comments [...] Not on filedocumented as of this encounter Procedures Procedure Name Priority Date/Time Associated Diagnosis Comments DIFFERENTIAL, AUTOMATED STAT 09/06/2023 1:48 PM EST 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 TSH WITH FREE T4 IF INDICATED Routine 09/06/2023 1:48 PM EST Acquired hypothyroidism HEMOGLOBIN A1C Routine 09/06/2023 1:48 PM EST Type 2 diabetes mellitus with hemoglobin A1c goal of less than 8.0% (HCC) CBC STAT 09/06/2023 1:48 PM EST 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 CBC STAT 09/06/2023 1:48 PM EST 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 documented in this encounter Results * DIFFERENTIAL, AUTOMATED (09/06/2023 1:48 PM EST) WBC 4.73 4.00 - 10.80 K/uL 09/06/2023 1:55 PM EST [facility] 56-02 Neutrophils % 61.5 40.0 - 75.0 % 09/06/2023 1:55 PM EST [facility] 56-02 Lymphocytes % 28.8 18.0 - 42.0 % 09/06/2023 1:55 PM EST [facility] 56-02 Monocytes % 7.2 1.0 - 11.0 % 09/06/2023 1:55 PM EST [facility] 56-02 Eosinophils % 1.9 0.0 - 6.0 % 09/06/2023 1:55 PM EST [facility] 56- Basophils % 0.6 0.0 - 2.0 % 09/06/2023 1:55 PM EST [facility] 56- Absolute Neutrophils 2.91 1.80 - 7.70 K/uL 09/06/2023 1:55 PM EST [facility] 56- Absolute Lymphocytes 1.36 1.00 - 4.80 K/ul 09/06/2023 1:55 PM EST [facility] 56- Absolute Monocytes 0.34 0.00 - 1.10 K/uL 09/06/2023 1:55 PM EST [facility] 56- Absolute Eosinophils 0.09 0.00 - 0.70 K/uL 09/06/2023 1:55 PM [facility] 56- Absolute Basophils 0.03 0.00 - 0.20 K/uL 09/06/2023 1:55 PM [facility] 56 Blood Venous blood specimen / Unknown Venipuncture / Unknown 09/06/2023 1:48 PM EST 09/06/2023 1:48 PM EST Alaina Rodriguez [facility] LAB BLOOD ORDERABLES [facility] [address] [place] [address] * (ABNORMAL) CBC (09/06/2023 1:48 PM EST) WBC 4.73 4.00 - 10.80 K/uL 09/06/2023 1:55 PM EST [facility] 56- RBC 3.90 3.85 - 5.15 M/uL 09/06/2023 1:55 PM [facility] 56- HGB 10.0(L) 12.0 - 15.3 g/dL 09/06/2023 1:55 PM [facility] 56- HCT 33.9(L) 36.0 - 45.2 % 09/06/2023 1:55 PM [facility] 56- MCV 86.9 81.5 - 97.5 fL 09/06/2023 1:55 PM [facility] 56- MCH 25.6 27.0 - 34.0 pg 09/06/2023 1:55 PM EST [facility] [place] 56- MCHC 29.5 32.0 - 36.0 g/dL 09/06/2023 1:55 PM EST [facility] 56- RDW 17.6 11.5 - 15.5 % 09/06/2023 1:55 PM EST [facility] 56- PLT 136(L) 140 - 400 K/uL 09/06/2023 1:55 PM EST [facility] 56- MPV 10.5 6.6 - 11.1 fL 09/06/2023 1:55 PM EST [facility] [place] 56- Blood Venous blood specimen / Unknown Venipuncture / Unknown 09/06/2023 1:48 PM EST 09/06/2023 1:48 PM EST Alaina Rodriguez [facility] LAB BLOOD ORDERABLES [facility] 56- [address] [place] [address] * TSH WITH FREE T4 IF INDICATED (09/06/2023 1:48 PM EST) TSH 3.68 0.27 - 4.20 uIU/mL 09/07/2023 12:37 AM EST [facility] [place] Venous blood specimen / Unknown Venipuncture / Unknown 09/06/2023 1:48 PM EST 09/06/2023 1:48 PM EST Luis Whalen DO LAB BLOOD ORDERABLE S [facility] [address] [place] [address] * (ABNORMAL) HEMOGLOBIN A1C (09/06/2023 1:48 PM EST) Hemoglobin A1C 6.6(H) 4.0 - 5.6 % 09/07/2023 12:36 AM EST [facility] Comment:The use of HbA1c to monitor glycemic status is based on normal hemoglobin and HbA composition. This test should not be used in patients with abnormal hemoglobin that affects the half life of the red blood cell or the in vivo glycation rates. Estimated Average Glucose 143(H) <126 mg/dL 09/07/2023 12:36 AM EST [facility] Blood Venous blood specimen / Unknown Venipuncture / Unknown 09/06/2023 1:48 PM EST 09/06/2023 1:48 PM EST Luis Whalen DO LAB BLOOD ORDERABLE S [facility] [address] [place] [address] documented in this encounter Visit Diagnoses Diagnosis Type 2 diabetes mellitus with hemoglobin A1c goal of less than 8.0% ([facility])- Primary Acquired hypothyroidism Unspecified hypothyroidism Gastroesophageal reflux disease without esophagitis Esophageal reflux Need for vaccination Need for prophylactic vaccination and inoculation against unspecified single disease 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
--- OUTSIDE RECORDS SUMMARY | 2023-11-12 10:41 | External Medical Summary ---
Author Name Unknown Address Unknown Organization [id number]:LABORATORY [facility] [address] [place] [address] Laboratory Report Ordering Provider Test Date Status MO WINTER 09/10/2023 05:45:00 Final Observation Date Value Abnormality Reference (Units ) Status BUN 09/10/2023 05:45:00 22 Above high normal 6-20 (mg/dL) Final Creatinine 09/10/2023 05:45:00 1.1 Above high normal 0.5-1.0 (mg/dL) Final Glomerular filtration rate/1.73 sq M.predicted [Volume Rate/Area] in Serum, Plasma or Blood by Creatinine-based formula (CKD-EPI) 09/10/2023 05:45:00 47 Below low normal >=60 (mL/min) Final eGFR is calculated based on the CKD-EPI 2020 equation SODIUM 09/10/2023 05:45:00 141 135-146 (m mol/L) Final Potassium 09/10/2023 05:45:00 4.6 3.5-5.1 (m mol/L) Final Cl 09/10/2023 05:45:00 107 98-107 (mm ol/L) Final CO2 09/10/2023 05:45:00 26 22-32 (mmo l/L) Final Anion gap 09/10/2023 05:45:00 8 7-15 (mmol /L) Final Glucose 09/10/2023 05:45:00 120 70-120 (mg /dL) Final Albumin 09/10/2023 05:45:00 3.5 Below low normal 3.8 -5.0 (g/dL) Final AST (Aspartate aminotransferase) 09/10/2023 05:45:00 61 Above high normal 10-35 (U/L) Final Result may be falsely elevat ed due to hemolysis. Alk Phos 09/10/2023 05:45:00 96 35-130 (U/ L) Final Bilirubin, Total 09/10/2023 05:45:00 0.7 <=1 .2 (mg/dL) Final Calcium 09/10/2023 05:45:00 8.9 8.4-10.2 ( mg/dL) Final Protein 09/10/2023 05:45:00 5.4 Below low normal 6.0 -8.3 (g/dL) Final ALT (Alanine aminotransferase) 09/10/2023 05:45:00 35 10-35 (U/L) Ruben alvarado Performing Location LABORATORY [place] [address] [facility] [address]
--- OUTSIDE RECORDS SUMMARY | 2023-11-12 10:41 | External Medical Summary | Summary of Care ---
Author Name Unknown Organization [facility] Address [address] [place] [address] Phone [phone] Care Team Providers Care Facility Operations Manager Name Role Phone Koby Luis Dionne PEDRO Primary Care Provider [phone] Reason for Visit * Reason Comments Dosage Adjustment Via Phone (anticoag Cl inic) Encounter Details Date Type Department Care Team (Latest Contact Info) Description 09/15/2023 4:45 PM EST Anticoagulation Pharmacy Call Center [phone] [place] [address] Ccp, [facility] 58 [address] [place] [address] Paroxysmal atrial fibrillation (HCC)*; H/O traumatic subdural [...] encounter Progress Notes * Alaina Rodriguez, [facility]ly [facility] - 09/15/2023 10:50 AM EST Images from the original note were not included. Medication Therapy Disease Management - Anticoagulation Patient: Radha Cardenas | : 1935 [facility] Patient Anticoagulation Encounter Patient is a resident at: [facility] -- Fax sent to number listed above detailing plan of care below. Please notify clinic with any unusual brusing or bleeding, N/V/D, medication or diet changes or anymissed or extra doses of Coumadin. Subjective Patient-Reported Symptoms: Objective Current Warfarin Dose As of 09/15/2023 Warfarin maintenance plan: 2 mg (1 mg x 2) every Mon, Wed, Fri; 1.5 mg (1 mg x 1.5) all other days INR Result As of 09/15/2023 INR goal: 2.0-3.0 INR used for dosin.5 (09/15/2023) Assessment & Plan Warfarin Plan As of 09/15/2023 Full warfarin instructions: 09/15: Hold; Otherwise 2 mg every Mon, Wed, Fri; 1.5 mg all other days Next INR check: 09/22/2023 Repeat PT/INR in 1 week(s) Weekly dose: decreased Additional Dosing Information: Description Amiodarone decreased 12/10/2020 Alaina Rodriguez [facility] Clinical Pharmacist 09/15/2023, 10:50 AM documented in this encounter Plan of Treatment Upcoming Encounters Date Type Department Care Team (Late st Contact Info) Description 09/23/2023 3:30 PM EST Immunization/Inje ction Hematology/Oncology Treatment, [address] [address] Nurse, Med 4 [address] [place] [address] 09/30/2023 12:30 PM EST Office Visit [facility] [address] [place] [address] Wu Varma DO 16 [place] [address] 10/07/2023 3:30 PM EST Immunization/Inje ction Hematology/Oncology Treatment, [address] [address] Nurse, Med 4 [address] [place] [address] 10/21/2023 3:30 PM EST Immunization/Inje ction Hematology/Oncology Treatment, [place] 200 [facility], [place] [address] Nurse, Med 4 200 [facility] [place] [address] 11/04/2023 1:15 PM EST Office Visit Hematology/Oncology [facility] 200 [facility] [place], [place] [address] Juventino Sarah MD 200 [facility] [place], [place] [address] 11/04/2023 1:45 PM EST Immunization/Inje ction Hematology/Oncology Treatment, [place] 200 [facility], [place] [address] Nurse, Med 4 200 [facility] [place], [place] [address] 01/05/2024 3:40 PM EDT Office Visit Family Practice [facility] 200 [facility] [place], [place] [address] Luis Whalen, 200 [facility] [place], [place] [address] Health Maintenance Due Date Last Done Comments [...] Documents on File Type Date Recorded 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
--- OUTSIDE RECORDS SUMMARY | 2023-11-12 10:41 | External Medical Summary ---
Author Name Unknown Address Unknown Organization [id number]:LABORATORY [facility] - [address] [place] [address] Laboratory Report Ordering Provider Test Date Status MO WINTER 09/10/2023 05:45:00 Final Observation Date Value Abnormality Reference (Units ) Status Folic Acid 09/10/2023 05:45:00 9.3 >4.5 (ng/ mL) Final Performing Location LABORATORY [facility] - [address] [place] [address]
--- OUTSIDE RECORDS SUMMARY | 2023-11-12 10:41 | External Medical Summary ---
Author Name Unknown Address Unknown Organization [id number]:LABORATORY [facility] 57[address] - [address] [place] [address] Laboratory Report Ordering Provider Test Date Status VITA LI 09/08/2023 06:00:00 Final Warfarin Therapy
INR: 2 .0-3.0 conventional anticoagulation
INR: 2.5- 3.5 high intensity anticoagulation Observation Date Value Abnormality Reference (Units ) Status PT 09/08/2023 06:00:00 43.1 Above high normal 11 .6-15.2 (seconds) Final INR 09/08/2023 06:00:00 4.5 Above high normal 0. 8-1.2 Final Performing Location LABORATORY [facility] [address] 0 - [address] [place] [address]
--- OUTSIDE RECORDS SUMMARY | 2023-11-12 10:41 | External Medical Summary ---
Author Name Unknown Address Unknown Organization [id number] - [address] [place] [address] Laboratory Report Ordering Provider Test Date Status MO WINTER 09/09/2023 05:57:00 Final Observation Date Value Abnormality Reference (Units ) Status WBC, Total 09/09/2023 05:57:00 6.12 4.00-10.8 0 (K/uL) Final RBC 09/09/2023 05:57:00 3.37 3.85-5.15 (M/uL) Final Hemoglobin 09/09/2023 05:57:00 8.6 Below low normal 12 .0-15.3 (g/dL) Final HCT 09/09/2023 05:57:00 29.4 Below low normal 36. 0-45.2 (%) Final MCV 09/09/2023 05:57:00 87.2 81.5-97.5 (fL) Final MCH 09/09/2023 05:57:00 25.5 27.0-34.0 (pg) Final MCHC 09/09/2023 05:57:00 29.3 32.0-36.0 (g/dL) Final RDW 09/09/2023 05:57:00 17.1 11.5-15.5 (%) Final Platelets 09/09/2023 05:57:00 136 Below low normal 140 -400 (K/uL) Final MPV 09/09/2023 05:57:00 10.5 6.6-11.1 ( fL) Final Performing Location LABORATORY [facility] [address] 0 - [address] [place] [address]
--- OUTSIDE RECORDS SUMMARY | 2023-11-12 10:41 | External Medical Summary ---
Author Name Unknown Address Unknown Organization [id number]:LABORATORY [place] [address] - [address] [place] [address] Laboratory Report Ordering Provider Test Date Status VITA LI 09/08/2023 06:00:00 Final Observation Date Value Abnormality Reference (Units ) Status SYNC LEUKOCYTES IN BLOOD BY AUTOMATED COUNT 09/08/2023 06:00:00 5.56 4.00-10.80 (K/uL) Final Segs 09/08/2023 06:00:00 41.8 40.0-75.0 (%) Final Lymphs % 09/08/2023 06:00:00 45.0 Above high normal 18.0-42.0 (%) Final Monos 09/08/2023 06:00:00 10.1 1.0-11.0 (%) Final Eosinophils 09/08/2023 06:00:00 2.7 0.0-6.0 (%) Final Basos 09/08/2023 06:00:00 0.4 0.0-2.0 (%) Final Absolute Segs 09/08/2023 06:00:00 2.33 1.80-7.70 (K/uL) Final Lymphs, absolute 09/08/2023 06:00:00 2.50 1.00-4.80 (K/ul) Final Monos, Abs 09/08/2023 06:00:00 0.56 0.00-1.10 (K/uL) Final Eos, Abs 09/08/2023 06:00:00 0.15 0.00-0.70 (K/uL) Final Basos, Abs 09/08/2023 06:00:00 0.02 0.00-0.20 (K/uL) Final Performing Location [facility] [address] 0 - [address] [place] [address]
--- OUTSIDE RECORDS SUMMARY | 2023-11-12 10:41 | External Medical Summary ---
Author Name Unknown Address Unknown Organization [id number]:LABORATORY [place] [address] - [address] [place] [address] Laboratory Report Ordering Provider Test Date Status MO WINTER 09/09/2023 05:57:00 Final Observation Date Value Abnormality Reference (Units ) Status SYNC LEUKOCYTES IN BLOOD BY AUTOMATED COUNT 09/09/2023 05:57:00 6.12 4.00-10.80 (K/uL) Final Segs 09/09/2023 05:57:00 51.3 40.0-75.0 (%) Final Lymphs % 09/09/2023 05:57:00 38.4 18.0-42.0 (%) Final Monos 09/09/2023 05:57:00 7.8 1.0-11.0 (%) Final Eosinophils 09/09/2023 05:57:00 2.0 0.0-6.0 (%) Final Basos 09/09/2023 05:57:00 0.5 0.0-2.0 (%) Final Absolute Segs 09/09/2023 05:57:00 3.14 1.80-7.70 (K/uL) Final Lymphs, absolute 09/09/2023 05:57:00 2.35 1.00-4.80 (K/ul) Final Monos, Abs 09/09/2023 05:57:00 0.48 0.00-1.10 (K/uL) Final Eos, Abs 09/09/2023 05:57:00 0.12 0.00-0.70 (K/uL) Final Basos, Abs 09/09/2023 05:57:00 0.03 0.00-0.20 (K/uL) Final Performing Location LABORATORY [facility] [address] - [address] [place] [address]
--- OUTSIDE RECORDS SUMMARY | 2023-11-12 10:41 | External Medical Summary ---
Author Name Unknown Address Unknown Organization [id number]:[facility]ORY [facility] [place] [address] [place] [address] Laboratory Report Ordering Provider Test Date Status MOYMO 09/10/2023 05:45:00 Final Observation Date Value Abnormality Reference (Units ) Status Ferritin 09/10/2023 05:45:00 223 Above high normal 13 -150 (ng/mL) Final Postmenopausal women have hi gher ferritin levels than pre-menopausal women. The above reference interval is based on pre-menopausal women. Performing Location LABORATORY [facility] [place] [address] [place] [address]
--- OUTSIDE RECORDS SUMMARY | 2023-11-12 10:41 | External Medical Summary | Summary of Care ---
Author Name Unknown Organization [facility] Address [address] [place] [address] Phone [phone] Care Team Providers Care Pot Press Operator Name Role Phone Luis Whalen Primary Care Provider [phone] Encounter Details Date Type Department Care Team (Late st Contact Info) Description 09/08/2023 Orders Only Lab Mobile Phlebot[facility] [address] [place], [place] [id number] Alaina Rodriguez, [facility] [address] [place] [address] Atrial fibrillation, unspecified type (HCC)*; Anticoagulation management encounter Allergies Active Allergy Reactions Criticality Noted Date [...] as of this encounter (statuses as of 09/08/2023) Medications Medication Sig Dispensed Refills Start Date [...] as of this encounter (statuses as of 09/08/2023) Active Problems Problem Noted Date Diagnosed Date [...] as of this encounter (statuses as of 09/08/2023) Resolved Problems Problem Noted Date Diagnosed Date [...] as of this encounter (statuses as of 09/08/2023) Immunizations Name Administration Dates Next Due COVID-19 [...] Department Care Team (Latest Contact Info) Description 09/08/2023 8:00 AM EST Laboratory Lab Mobile Phlebotomy [facility] [address] [place] [address] [facility] Mobile [place] [address] [place] [address] 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 [facility] [address] 09/09/2023 3:30 PM EST Immunization/Injection Hematology/Oncolo gy [facility] [place] [address] [facility] [place] [address] Nurse, Med [address] [place] [address] [place] [address] 09/30/2023 12:30 PM EST Office Visit [facility] 16 [place] [address] Wu Varma, DO 16 [place] [address] 11/04/2023 1:15 PM EST Office Visit Hematology/Oncolo gy [facility] 200 [facility] [place] [address] Juventino Sarah MD 200 [place] [address] 01/05/2024 3:40 PM EDT Office Visit Family Practice [facility] [place] 200 [facility] [place] [address] Luis Whalen, DO 200 [facility] [place] [address] Scheduled Orders Name Type Priority Associated Diagnoses Orde r Schedule PT INR Lab Routine Atrial fibrillation, unspecified type (HCC) Anticoagulation management encounter Expected: 09/08/2023, Expires: 09/08/2024 Health Maintenance Due Date Last Done Comments [...] 03/07/2024 09/06/2023, 01/18, 10/21/2022, Additional history exists Hgb 09/06/2024 09/06/2023, 12/0 03/2023, 08/25/2023, Additional history exists TSH 09/06/2024 09/06/2023, 01/18, 05/15/2022, Additional history exists Pneumococcal Vaccine: 65+ Years [...] 4 chronic kidney disease treated with erythropoietin Atrial fibrillation, unspecified type (HCC) Anticoagulation management encounter Encounter for therapeutic drug monitoring Atrial fibrillation, unspecified type (HCC)- Primary Anticoagulation management encounter Encounter for therapeutic drug monitoring documented in this encounter Advance Directives Documents on File Type Date Recorded Patient Frame Stylist Expl anation Power of Director Of Religious Activities 11/28/2003 Care Teams Pot Press Operator Relationship Specialty Start Date End Date Luis Whalen DO [address] [place] [address] PCP - General Family Medicine 11/09/18 documented as of this encounter
--- OUTSIDE RECORDS SUMMARY | 2023-11-12 10:41 | External Medical Summary ---
Author Name Unknown Address Unknown Organization K0G:LABORATORY [facility] [address] - [address] [place] [address] Laboratory Report Ordering Provider Test Date Status VITA LI 09/15/2023 06:00:00 Final Warfarin Therapy
INR: 2 .0-3.0 conventional anticoagulation
INR: 2.5- 3.5 high intensity anticoagulation Observation Date Value Abnormality Reference (Units ) Status PT 09/15/2023 06:00:00 35.7 Above high normal 11 .6-15.2 (seconds) Final INR 09/15/2023 06:00:00 3.5 Above high normal 0. 8-1.2 Final Performing Location LABORATORY [facility] [address] 0 - [address] [place] [address]
--- OUTSIDE RECORDS SUMMARY | 2023-11-12 10:41 | External Medical Summary ---
Author Name Unknown Address Unknown Organization K0G:LABORATORY [facility] [address] - [address] [place] [address] Laboratory Report Ordering Provider Test Date Status VITA LI 09/08/2023 06:00:00 Final Observation Date Value Abnormality Reference (Units ) Status WBC, Total 09/08/2023 06:00:00 5.56 4.00-10.8 0 (K/uL) Final RBC 09/08/2023 06:00:00 3.42 3.85-5.15 (M/uL) Final Hemoglobin 09/08/2023 06:00:00 8.8 Below low normal 12 .0-15.3 (g/dL) Final HCT 09/08/2023 06:00:00 29.5 Below low normal 36. 0-45.2 (%) Final MCV 09/08/2023 06:00:00 86.3 81.5-97.5 (fL) Final MCH 09/08/2023 06:00:00 25.7 27.0-34.0 (pg) Final MCHC 09/08/2023 06:00:00 29.8 32.0-36.0 (g/dL) Final RDW 09/08/2023 06:00:00 17.0 11.5-15.5 (%) Final Platelets 09/08/2023 06:00:00 129 Below low normal 140 -400 (K/uL) Final MPV 09/08/2023 06:00:00 10.7 6.6-11.1 ( fL) Final Performing Location LAB[facility]ATORY [facility] [address] 0 - [address] [place] [address]
--- OUTSIDE RECORDS SUMMARY | 2023-11-12 10:41 | External Medical Summary | Summary of Care ---
Author Name Unknown Organization [facility] Address [address] [place] [address] Phone [phone] Care Team Providers Care Radiology Transporter Name Role Phone Luis Whalen Primary Care Provider [phone] Encounter Details Date Type Department Care Team (Late st Contact Info) Description 09/15/2023 Orders Only Lab Mobile Phlebotomy [facility] [address] [place], [place] [id number] Alaina Rodriguez, [facility] [address] [place] [address] Atrial fibrillation (HCC)* Allergies Active Allergy Reactions [...] mRNA, LNP-s, No Pre serve, 2-Dose Series (amBX) 10/19/2020,09/28/2020 Pneumococcal Conjugate Vacc, 13 Valent (Prevnar) [...] Team (Late st Contact Info) Description 09/15/2023 8:00 AM EST Laboratory Lab Mobile Phlebotomy [facility] [address] [place] [facility] [place] [address] [facility], [facility] Mobile [place] [address] [place] [address] 09/15/2023 4:45 PM EST Anticoagulation Pharmacy Call Center [address] [place] [address] [facility] 58 60 [facility] [place] [address] 09/23/2023 3:30 PM EST Immunization/Injection Hematology/Oncology Treatment, [place] [address] [place] [address] Nurse, Med 4 [address] [place] [address] 09/30/2023 12:30 PM EST Office Visit [facility] 16 [place] [address] Wu Varma, 16 [place] [address] 10/07/2023 3:30 PM EST Immunization/Injection Hematology/Oncology Treatment, [place] 200 [facility] [address] Nurse, Med 4 [address] [place] [address] 10/21/2023 3:30 PM EST Immunization/Injection Hematology/Oncology Treatment, [place] 200 [facility] [address] Nurse, Med 4 [address] [place] [address] 11/04/2023 1:15 PM EST Office Visit Hematology/Oncology [facility] [place] [address] [place] [address] Juventino Sarah MD [address] [place], [place] [address] 11/04/2023 1:45 PM EST Immunization/Injection Hematology/Oncology Treatment, [place] 200 [facility], [place] [address] Nurse, Med 4 [address] [place] [address] 01/05/2024 3:40 PM EDT Office Visit Family Practice Lia M[facility] [place] 200 [facility] [place], [place] [address] Luis Whalen DO 200 [facility] [place], [place] [address] Scheduled Orders Name Type Priority Associated Diagnoses Orde r Schedule PT INR Lab Routine Atrial fibrillation (HCC) Expected: 09/15/2023, Expires: 09/15/2024 Health Maintenance Due Date Last Done Comments [...] this encounter Visit Diagnoses Diagnosis Atrial fibrillation (HCC) Atrial fibrillation Atrial fibrillation (HCC)- Primary Atrial fibrillation documented in this encounter Advance Directives Documents on File Type Date Recorded Patient Hammer Shop Supervisor Expl anation Power of Type Copy Examiner 11/28/2003 Care Teams Radiology Transporter Relationship Specialty Start Date End Date Luis Whalen DO [facility] [place] [address] PCP - General Family Medicine 11/09/18 documented as of this encounter
--- OUTSIDE RECORDS SUMMARY | 2023-11-12 10:41 | External Medical Summary | Summary of Care ---
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 Procedures AL INJ RETACRIT NON-ESRD USE AL EPOETIN JJ, NON-ESRD Juventino Sarah MD [address] [place] [address] Anc Hem/Onc Lia M[facility]ry DEPT CLOSED - 08/03/[address] [place] [phone] Referral ID Status Reason Start Date Expiration Date V isits Requested Visits Authorized [id number] Authorized 09/30/2021 09/19/2099 99 99 Encounter Details Date Type Department Care Team (Latest Contact Info) Description 09/09/2023 3:30 PM EST Immunization/ Injection Hematology/Oncology Treatment, [place] [address] [place] [address] Nurse, Med [address] [place] [address] Anemia due to stage 4 chronic kidney [...] as of this encounter (statuses as of 09/09/2023) Medications Medication Sig Dispensed Refills Start Date [...] as of this encounter (statuses as of 09/09/2023) Active Problems Problem Noted Date Diagnosed Date [...] as of this encounter (statuses as of 09/09/2023) Resolved Problems Problem Noted Date Diagnosed Date [...] as of this encounter (statuses as of 09/09/2023) Immunizations Name Administration Dates Next Due COVID-19 [...] Sign Reading Time Taken Comments Blood Pressure 107/70 09/09/2023 3:45 PM EST Pulse 58 09/09/2023 3:45 PM EST Temperature - - Respiratory Rate - - Oxygen Saturation - - Inhaled Oxygen Concentration - - Weight - - Height - - Body Mass Index - - documented in this encounter Nursing Notes * Ariana Long LPN - 09/09/2023 4:01 PM EST Pt arrived for Procrit injection. Hgb 8.6. Administered in MIGUEL ANGEL. Pt tolerated well. To return in 2 weeks. Discharged in stable condition. documented in this encounter Plan of Treatment Upcoming Encounters Date Type Department Care Team (Late st Contact Info) Description 09/15/2023 4:45 PM EST Anticoagulation Pharmacy Call Center [address] [place] [address] [facility] 58 [address] [place] [address] 09/23/2023 3:30 PM EST Immunization/Injection Hematology/Oncology Treatment, [place] [address] [place] [address] Nurse, Med [address] [place] [address] 09/30/2023 12:30 PM EST Office Visit [facility] 16 [place] [address] Wu Varma, 16 [place] [address] 10/07/2023 3:30 PM EST Immunization/Injection Hematology/Oncology Treatment, [place] 200 [facility], [place] [address] Nurse, Med 4 [address] [place] [address] 10/21/2023 3:30 PM EST Immunization/Injection Hematology/Oncology Treatment, [place] 200 [facility] [address] Nurse, Med 4 200 [facility] [place] [address] 11/04/2023 1:15 PM EST Office Visit Hematology/Oncology [facility] 200 [facility] [place] [address] Juventino Sarah MD 200 [facility] [place] [address] 11/04/2023 1:45 PM EST Immunization/Injection Hematology/Oncology Treatment, [place] 200 [facility], [place] [address] Nurse, Med 4 200 [facility] [place], [place] [address] 01/05/2024 3:40 PM EDT Office Visit Family Practice [facility] 200 [facility] [place], [place] [address] Luis Whalen, DO 200 [facility] [place], [place] [address] Health Maintenance Due Date Last Done Comments [...] Action [place] [address] UNIT/ML inj 40,000 Units 40,000 Units, Subcutaneous, ONCE, On Sarah 09/09/23 at 1630, For 1 dose Given 09/09/2023 3:48 PM EST 40,000 Units Arm Left Upper documented in this encounter Advance Directives Documents on File Type Date Recorded Patient Waiter/Waitress Take Out Expl anation Power of Executive Community Planning 11/28/2003 Care Teams Attendance Clerk Relationship Specialty Start Date End Date Luis Whalen DO [address] [place] [address] PCP - General Family Medicine 11/09/18 documented as of this encounter
--- OUTSIDE RECORDS SUMMARY | 2023-11-12 10:41 | External Medical Summary | Continuity of Care Document ---
Author Name Unknown Organization [facility] [address] [facility] [address] [id number] Care Team Providers Care Dairy Nutritionist Name Role Phone Luis Whalen Primary Care Physician [phone] [id number] Date(s): 09/06/23 - 09/06/23 [facility] [address] [facility] [address] [id number] Discharge Disposition: Home or Self Care Attending Physician: MD Patti, Judy Allergies, Adverse Reactions, Alerts Substance Reaction Severity Status tetracycline swollen , hives Active amoxicillin unknown Moderate Active trimethoprim ? Active tetanus toxoid swollen and hives Active Bactrim ? Active sulfamethoxazole ? Active Medications amiodarone 200 mg oral tablet Start: 06/27/21 8:31:00 EDT Start Date: 06/27/21 Status: Ordered amoxicillin 500 mg oral capsule Start: 03/10/22 9:20:00 EDT, 4 cap, PO, As indicated, Disp# 12 cap, Refills: 3, one hour before dental and other procedures as directed Start Date: 03/10/22 Status: Ordered aspirin Start: 06/27/21 8:31:00 EDT Start Date: 06/27/21 Status: Ordered Bactroban 2% topical ointment Start: 06/05/22 15:42:00 EDT, 1 appl, topical, tid, Disp# 22 g, Refills: 1, BID to open areas of scalp for 10 days. Wash area gently daily. Hold steroid for those 10 days., Pharmacy: [facility] Start Date: 06/05/22 Status: Ordered Calcium 500+D Start: 04/21/16 9:30:00, See Instructions, 1 tab po daily Start Date: 04/21/16 Status: Ordered cephalexin 500 mg oral capsule Start: 03/18/23 8:34:00 EDT, 1 cap, PO, tid, Disp# 40 cap, Refills: 0, with food., Pharmacy: [facility] Start Date: 03/18/23 Status: Ordered cholecalciferol 25 mcg (1000 intl [...] nostril, Daily Start Date: 04/21/16 Status: Ordered glipiZIDE 5 mg oral tablet Start: 06/27/21 8:32:00 EDT Start Date: 06/27/21 Status: Ordered hydrOXYzine hydrochloride 10 mg oral tablet Start: 03/10/22 9:26:00 EDT Start Date: 03/10/22 Status: Ordered ICaps AREDS Start: 06/27/21 8:35:00 EDT Start Date: 06/27/21 Status: Ordered ketoconazole 2% topical shampoo Start: 01/07/22 15:21:00 EDT, 1 appl, topical, Daily, Disp# 120 mL, Refills: 3, please shampoo Wed, Pharmacy: [facility] Start Date: 01/07/22 Status: Ordered Levoxyl 100 mcg (0.1 mg) oral tablet Start: 04/21/16 9:30:00, 1 tab, PO, Daily Start Date: 04/21/16 Status: Ordered loperamide Start: 06/27/21 8:34:00 EDT [...] 45 g, Refills: 2, to face., Pharmacy: [facility] Start Date: 03/18/23 Status: Ordered MiraLax Start: 10/02/21 14:22:00 EST, PO, Daily Start Date: 10/02/21 Status: Ordered mupirocin 2% topical ointment Start: 08/30/23 11:57:00 EST, 1 appl, topical, bid, Disp# 22 g, Refills: 1, To central scalp BID, Pharmacy: [facility] Start Date: 08/30/23 Status: Ordered One Touch Finepoint (25G) Lancets [...] 8:37:00 EDT Start Date: 03/18/23 Status: Ordered tamsulosin 0.4 mg oral capsule Start: 12/25/19 21:45:00 EDT, 1 cap, PO, Daily Start Date: 12/25/19 Status: Ordered triamcinolone 0.1% topical lotion Start: 06/27/21 9:04:00 EDT, 1 appl, topical, bid, Disp# 60 mL, Refills: 3, apply to scalp, Pharmacy: [facility] Start Date: 06/27/21 Status: Ordered Tylenol 500 [...] 8:38:00 EDT Start Date: 03/18/23 Status: Ordered Problem List Condition Confirmation Course Effective Dates [...] SWAB drawn 06/03/2022 13:12 16/08/16 Wound Culture [place] Swab 4+MRSA Procedures Procedure Date Related Diagnosis Body Site [...] Status Never smoked cigaret linda Sex Female Patient Care team information Care Team Personnel Name: LUIS EDUARDO Quiroz Ashley Position: Physician Cloth Washer Operator - Neurosurgery Member Role: Lifetime Relationship Address: Address: [address] [place] [address] [address] [place] [address] Name: DO Whalen Shane D Position: Referring DIRECT Member Role: Primary Care Provider Address: Address: [address] [place] [address] Care Team Related Persons Name: JESSE HOFFMANN Name: JOSE JUAN HOFFMANN Address: home No Address Provided Name: JOSE JUAN HOFFMANN
--- OUTSIDE RECORDS SUMMARY | 2023-11-12 10:41 | External Medical Summary | Summary of Care ---
Author Name Unknown Organization [facility] Address [address] [place] [address] Phone [phone] Care Team Providers Care Casing Tester Name Role Phone Koby Luis Dionne PEDRO Primary Care Provider [phone] Reason for Visit * Reason Comments Dosage Adjustment Via Phone (anticoag Cl inic) Encounter Details Date Type Department Care Team (Latest Contact Info) Description 09/08/2023 4:45 PM EST Anticoagulation Pharmacy Call Center [phone] [place] [address] Ccps, [facility] [address] [place] [address] Paroxysmal atrial fibrillation (HCC)*; H/O traumatic subdural [...] this encounter Progress Notes * Alaina Rodriguez, [facility] - 09/08/2023 10:24 AM EST Images from the original note were not included. Medication Therapy Disease Management - Anticoagulation Patient: Radha Cardenas | : 1935 [facility] Patient Anticoagulation Encounter Patient is a resident at: [facility] -- [facility] -- Fax sent to number listed above detailing plan of care below. Please notify clinic with any unusual brusing or bleeding, N/V/D, medication or diet changes or anymissed or extra doses of Coumadin. Subjective Patient-Reported Symptoms: Noticed drop in Hgb, continue to monitor. Hold Coumadin if less than 8.0 Patient Findings Comments: Hemoglobin Results: Lab Results Component Value Date/Time HGB - [facility] 8.8 (L) 09/08/2023 06:00 AM HGB - [facility] 10.0 (L) 09/06/2023 01:48 PM HGB - [facility] 9.9 (L) 08/26/2023 08:19 AM HGB - [facility] 10.0 (L) 07/26/2020 11:54 AM HGB - [facility] 9.4 (L) 07/15/2020 12:40 PM HGB - [facility] 8.8 (L) 07/12/2020 07:45 AM Objective Current Warfarin Dose As of 09/08/2023 Warfarin maintenance plan: 1.5 mg (1 mg x 1.5) every Sun, Tue, Sarah; 2 mg (1 mg x 2) all other days INR Result As of 09/08/2023 INR goal: 2.0-3.0 INR used for dosin.5 (09/08/2023) Assessment & Plan Warfarin Plan As of 09/08/2023 Full warfarin instructions: 09/08: Hold; 09/09: Hold; Otherwise 1.5 mg every Sun, Tue, Sarah; 2 mg all other days Next INR check: 09/15/2023 Repeat PT/INR in 1 week(s) Weekly dose: not changed Additional Dosing Information: Description Amiodarone decreased 12/10/2020 Alaina Rodriguez RPh Clinical Pharmacist 09/08/2023, 10:25 AM documented in this encounter Plan of Treatment Upcoming Encounters Date Type Department Care Team (Late st Contact Info) Description 09/09/2023 3:30 PM EST Immunization/Inje ction Hematology/Oncology Treatment, [place] [address] [place] [address] Nurse, Med 4 200 [facility] [place] [address] 09/30/2023 12:30 PM EST Office Visit [facility] [address] [place] [address] Wu Varma, DO [address] [place] [address] 11/04/2023 1:15 PM EST Office Visit Hematology/Oncology [facility] [place] [address] [facility] [place] [address] Juventino Sarah MD [address] [facility] [place] [address] 01/05/2024 3:40 PM EDT Office Visit Family Practice [facility] [place] [address] [facility] [place] [address] Luis Whalen, DO [address] [facility] [place] [address] Health Maintenance Due Date Last Done Comments [...] Depression Screening 10/21/2023 10/21/2022 PTH 02/04/2024 02/03/2023, 05/2020, 06/03/2018, Additional history exists Phosphate 02/04/2024 02/03/2023, 05/2020, 08/11/2019, Additional history exists Diabetic Eye Exam 02/23/2024 02/22/2023, , 02/11/2021, Additional history exists HbA1c 03/07/2024 09/06/2023, 01/18, 10/21/2022, Additional history exists TSH 09/06/2024 09/06/2023, 01/18, 05/15/2022, Additional history exists Hgb 09/08/2024 09/08/2023, 08/20, 08/26/2023, Additional history exists Pneumococcal Vaccine: 65+ Years [...] Documents on File Type Date Recorded Patient Harness Brusher Expl anation Power of Warehouse Team Member 11/28/2003 Care Teams Casing Tester Relationship Specialty Start Date End Date Luis Whalen DO [address] [place] [address] [place] [address] PCP - General Family Medicine 11/09/18 documented as of this encounter"
--- OUTSIDE RECORDS SUMMARY | 2023-11-12 10:42 | External Medical Summary ---
Author Name Unknown Address Unknown Organization [id number]:[facility] [address] [facility] [address] Laboratory Report Ordering Provider Test Date Status MO WINTER 09/06/2023 13:48:09 Final Observation Date Value Abnormality Reference (Units ) Status HbA1C 09/06/2023 13:48:09 6.6 Above high normal 4. 0-5.6 (%) Final The use of HbA1c to monitor glycemic status is based on normal hemoglobin and HbA composition. This test should not be used in patients with abnormal hemoglobin that affects the half life of the red blood cell or the in vivo glycation rates. Glucose, estimated average 09/06/2023 13:48:09 143 Above high normal <126 (mg/dL) Ruben alvarado Performing Location [facility] [address] [facility] [address] [facility] [address]
--- OUTSIDE RECORDS SUMMARY | 2023-11-12 10:42 | External Medical Summary ---
Author Name Unknown Address Unknown Organization [id number]:[facility] [address] [place] [address] Laboratory Report Ordering Provider Test Date Status MO WINTER 09/06/2023 13:48:09 Final Observation Date Value Abnormality Reference (Units ) Status TSH 09/06/2023 13:48:09 3.68 0.27-4.20 (uIU/mL) Final Performing Location LABORATORY C - [address] [place] [address]
--- OUTSIDE RECORDS SUMMARY | 2023-11-12 10:42 | External Medical Summary | Summary of Care ---
Author Name Unknown Organization [facility] Address [address] [place] [address] Phone [phone] Care Team Providers Care Solar Sales Advisor Name Role Phone Moy Hassan DO Primary Care Provider [phone] Reason for Visit * Reason Onset Date Comments Medication Problem 08/26/2023 Encounter Details Date Type Department Care Team (Late st Contact Info) Description 08/26/2023 Telephone Family Practice [facility] [place] [address] [facility] [place] [address] Moy Hassan DO 200 [facility] [place] [address] Medication Problem Allergies Active Allergy Reactions Criticality Noted Date [...] as of this encounter (statuses as of 08/30/2023) Medications Medication Sig Dispensed Refills Start Date [...] MAY NEED CLARIFIED 100 g 4 Active PreserVision AREDS 2 Oral Capsule Take by mouth 1 Capsule in the morning AND 1 Capsule before bedtime. 60 Capsule 3 Active Docusate Sodium 100 MG Oral Capsule [...] AT BEDTIME FOR HYPERLIPIDEMIA 90 Tablet 3 023 Active Calmoseptine 0.44-20.6 % External Ointment (Menthol-Zinc Oxide) Apply topically to affected area every evening. Apply to scab 20 g Active Vitamin D 50 MCG (2000 UT) Oral Capsule Take 2,000 Units by mouth in the morning. 90 Capsule 023 Active Sertraline HCl 25 MG Oral Tablet (Zoloft)Indications:CATA (generalized anxiety disorder) Take 1 Tablet by mouth in the morning. 30 Tablet 023 Active Warfarin Sodium 3 MG Oral Tablet (Coumadin) TAKE 1/2 TAB (1.5MG) BY MOUTH Daily 5 days per week. Current regimen; 2mg MF, 1.5mg all other days 60 Tablet 1 023 Active Additional Information Patient not taking.Reported on 08/05/2023 Levothyroxine Sodium 112 MCG Oral Tablet (Levoxyl) Take 1 Tablet by mouth in the morning. (at least 30 min prior to breakfast or other meds). 90 Tablet 023 Active Aspirin 81 MG Oral Tablet Chewable (Aspirin Low Dose) 1 TAB BY MOUTH EVERY MORNING THREE TIMES WEEKLY ON MON,WED,FRI *HEART HEALTH* 12 Tablet 023 Active glipiZIDE ER 5 MG Oral Tablet Extended Release 24 Hour TAKE 2 TABLETS BY MOUTH IN THE MORNING. - PER PREVIOUS ORDER: TAKE 30-MINUTES BEFORE MEAL 180 Tablet 1 023 Active Amiodarone HCl 200 MG Oral Tablet (Cordarone) Take 1 Tablet by mouth in the morning. 30 Tablet 4 023 Active Loratadine 10 MG Oral Tablet (Claritin)Indications:N on-seasonal allergic rhinitis, unspecified trigger Take 1 Tablet by mouth in the morning. 30 Tablet 5 023 Active Metamucil Smooth Texture 58.6 % Oral Powder (Psyllium)Indications:L oose stools Take 1 Scoop by mouth in the morning and 1 Scoop at noon and 1 Scoop before bedtime. One scoop in 8 ounces of water, up to three times a day.. 660 g 023 Active Additional Information Patient taking differently:1 Scoop OralDaily(AM), (No instructions reported), Reported on 08/05/2023 B-12-SL 1000 MCG Sublingual Tablet Sublingual (Cyanocobalamin) Place 1,000 mcg under the tongue in the morning. 90 Tablet 3 023 Active Azithromycin 500 MG Oral Tablet (Zithromax) Take 1 pill before dental appointments. 3 Tablet 0 023 Active Metoprolol Tartrate 25 MG Oral [...] WED, WED, WED, SAT) 16 Tablet 4 023 Active Mupirocin 2 % External Ointment (Bactroban) Apply topically to affected area daily. Apply to scalp everyday for wound care protocol 22 g 3 023 2022 Discontinued documented as of this encounter (statuses as of 08/30/2023) Active Problems Problem Noted Date Diagnosed Date [...] as of this encounter (statuses as of 08/30/2023) Resolved Problems Problem Noted Date Diagnosed Date [...] as of this encounter (statuses as of 08/30/2023) Immunizations Name Administration Dates Next Due COVID-19 mRNA, LNP-s, No Pre serve, 2-Dose Series (Pfizer) 10/19/2020,09/28/2020 Pneumococcal Conjugate Vacc, 13 Valent (Prevnar) 07/26/2015 Pneumococcal Conjugate Vacci ne, 7 Valent 02/10/2001 Pneumococcal Polysaccharide PPV23 (Pneumovax) 03/26/2017,08/23/1991 SEASONAL INFLUENZA, PF, 6 M & Above, IM , (FLULAVAL or FLUZONE) 07/05/2017 Season Influenza, Quad, PF, Adjuvanted, 65+ Yrs, IM (FLUAD) 05/22/2020 Seasonal Influenza, Quadriva lent, No Preserve, IM [...] encounter Miscellaneous Notes * Addendum Note - Moy Hassan DO - 08/30/2023 1:18 PM ESTAddended by: MOY HASSAN on: 08/30/2023 01:18 PM Modules accepted: Orders * Telephone Encounter - Moy Hassan DO - 08/30/2023 1:17 PM EST I'll bring D/C order to you to fax * Telephone Encounter - Sonja Felton LPN - 08/26/2023 1:28 PM EST Okay to d/c? * Telephone Encounter - Francoise Felder CPhT - 08/26/2023 12:13 PM EST Shania calling stating she will like med for Mupirocin 2 % External Ointment (Bactroban) D/C for Pt. Shania stated if any question please give her a call back at [phone]. Denise also stated she needs D/C order to be fax at [phone]. Thank you, Francoise Felder CPhT Geotechnical Engineer II [facility] Pharm[facility] Services ([facility]PS) (Formerly Telepharmacy) 08/26/2023,12:15 PM documented in this encounter Plan of Treatment Upcoming Encounters Date Type Department Care Team (Late st Contact Info) Description 09/06/2023 12:40 PM EST Office Visit Family Practice [facility] [place] [address] [place] [address] Moy Hassan DO [address] [facility] [place] [address] 09/08/2023 8:00 AM EST Laboratory Lab [facility] [address] [place] [address] [facility], [facility] [address] [place] [address] 09/08/2023 4:45 PM EST Anticoagulation Pharmacy Call Center [phone] [facility] [place] [address] Ccps, [facility] [address] [facility] [place] [address] 09/09/2023 3:30 PM EST Immunization/Injection Hematology/Oncology Treatment, [place] [address] [facility] [address] [place] [address] Nurse, Med 4 [address] [place] [address] 09/21/2023 4:00 PM EST Office Visit Family Practice [facility] [place] [address] [facility] [place] [address] Moy Hassan, DO [address] [facility] [place] [address] 09/30/2023 12:30 PM EST Office Visit [facility] [address] [place] [address] Wu Varma, 16 [place] [address] 11/04/2023 1:15 PM EST Office Visit Hematology/Oncology [facility] [address] [facility] [place] [address] Juventino Sarah MD [address] [facility] [place] [address] Health Maintenance Due Date Last Done Comments [...] 2023 07/04/2021, 06/18/2021, 05/22/2020, Additional history exists HbA1c 08/06/2023 02/03/2023, 02/0 09/2022, 05/15/2022, Additional history exists Depression Screening 10/21/2023 10/21/2022 PTH 02/04/2024 02/03/2023, 07/0 05/2020, 06/03/2018, Additional history exists Phosphate 02/04/2024 02/03/2023, 07/0 05/2020, 08/11/2019, Additional history exists TSH 02/04/2024 02/03/2023, 08/2 02/2022, 12/11/2020, Additional history exists Diabetic Eye Exam 02/23/2024 02/22/2023, , 02/11/2021, Additional history exists Hgb 08/26/2024 08/26/2023, 12/0 02/2023, 08/11/2023, Additional history exists Pneumococcal Vaccine: 65+ Years [...] Documents on File Type Date Recorded 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
--- OUTSIDE RECORDS SUMMARY | 2023-11-12 10:42 | External Medical Summary | Summary of Care ---
Author Name Unknown Organization [facility] Address [address] [place] [address] Phone [phone] Care Team Providers Care Bacteriologist Pharmaceutical Name Role Phone Moy Hassan DO Primary Care Provider [phone] Reason for Visit * Reason Onset Date Comments Medication Problem 08/26/2023 Encounter Details Date Type Department Care Team (Late st Contact Info) Description 08/26/2023 Telephone Family Practice [facility] [place] [address] [facility] [place] [address] Moy Hassan DO 200 [facility] [place] [address] Medication Problem Allergies Active Allergy Reactions Criticality [...] Miscellaneous Notes * Telephone Encounter - Denice Gutierrez LPN - 08/30/2023 1:23 PM EST Order faxed, confirmation received. * Addendum Note - Moy Hassan DO [...] please give her a call back at [phone]. Denise also stated she needs D/C order to be fax at [phone]. Thank you, Francoise Felder CPhT Janitorial Cleaner II [facility] Pharmacy Services ([facility]PS) (Formerly Telepharmacy) 08/26/2023,12:15 PM documented in this encounter Plan of Treatment Upcoming Encounters Date Type Department Care Team (Late st Contact Info) Description 09/06/2023 12:40 PM EST Office Visit Family Practice [facility] [place] [address] [place] [address] Moy Hassan DO [address] [facility] [place] [address] 09/08/2023 8:00 AM EST Laboratory Lab [facility] Phlebotomy [facility] [address] [place] [address] Village, [facility] [address] [place], [place] [address] 09/08/2023 4:45 PM EST Anticoagulation Pharmacy Call Center [address] [facility] [place] [address] C[facility]ps, [facility] [address] [facility] [address] 09/09/2023 3:30 PM EST Immunization/Injection [facility]ematology[facility] [place] [facility] [address] [facility], Med 4 200 [facility] [place] [address] 09/21/2023 4:00 PM EST Office Visit Family Practice [facility] 200 [facility] [place] [address] Moy Hassan, DO [address] [facility] [place] [address] 09/30/2023 12:30 PM EST Office Visit [address] [address] Wu Varma, DO [address] [place] [address] 11/04/2023 1:15 PM EST Office Visit Hematology/Oncology [facility] 200 [facility] [place] [address] Juventino Sarah MD 200 [facility] [place] [address] Health Maintenance Due Date Last Done Comments [...] Documents on File Type Date Recorded 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
--- OUTSIDE RECORDS SUMMARY | 2023-11-12 10:42 | External Medical Summary ---
Author Name Unknown Address Unknown Organization K09:[facility] [place] [address] Laboratory Report Ordering Provider Test Date Status VITA LI 09/06/2023 13:48:09 Final Observation Date Value Abnormality Reference (Units ) Status WBC, Total 09/06/2023 13:48:09 4.73 4.00-10.8 0 (K/uL) Final RBC 09/06/2023 13:48:09 3.90 3.85-5.15 (M/uL) Final Hemoglobin 09/06/2023 13:48:09 10.0 Below low normal 12 .0-15.3 (g/dL) Final HCT 09/06/2023 13:48:09 33.9 Below low normal 36. 0-45.2 (%) Final MCV 09/06/2023 13:48:09 86.9 81.5-97.5 (fL) Final MCH 09/06/2023 13:48:09 25.6 27.0-34.0 (pg) Final MCHC 09/06/2023 13:48:09 29.5 32.0-36.0 (g/dL) Final RDW 09/06/2023 13:48:09 17.6 11.5-15.5 (%) Final Platelets 09/06/2023 13:48:09 136 Below low normal 140 -400 (K/uL) Final MPV 09/06/2023 13:48:09 10.5 6.6-11.1 ( fL) Final Performing Location [facility] [place] [address]
--- OUTSIDE RECORDS SUMMARY | 2023-11-12 10:42 | External Medical Summary | Summary of Care ---
Author Name Unknown Organization [facility] Address [address] [place] [address] Phone [phone] Care Team Providers Care Project Lead Name Role Phone Luis Whalen DO Primary Care Provider [phone] Encounter Details Date Type Department Care Team (Late st Contact Info) Description 08/25/2023 Telephone Family Practice [facility] [place] [address] [place] [address] Luis Whalen DO [address] [place] [address] Allergies Active Allergy Reactions Criticality Noted Date [...] as of this encounter (statuses as of 09/07/2023) Medications Medication Sig Dispensed Refills Start Date End Date Status GLUCOMETER DIABETES CARE KITIndications:DM type 2, goal A1c below 7 as directed 1 0 04/03/20 03 Active LANCETS MISCIndications:DM type 2, goal [...] SAT) 16 Tablet 4 08/24/20 23 Active documented as of this encounter (statuses as of 09/07/2023) Active Problems Problem Noted Date Diagnosed Date [...] as of this encounter (statuses as of 09/07/2023) Resolved Problems Problem Noted Date Diagnosed Date [...] as of this encounter (statuses as of 09/07/2023) Immunizations Name Administration Dates Next Due COVID-19 mRNA, LNP-s, No Pre serve, 2-Dose Series (Pfizer) 10/19/2020,09/28/2020 Pneumococcal Conjugate Vacc, 13 Valent (Prevnar) 07/26/2015 Pneumococcal Polysaccharide PPV23 (Pneumovax) 03/26/2017 Season Influenza, Quad, PF, Adjuvanted, 65+ Yrs, [...] encounter Miscellaneous Notes * Telephone Encounter - Luis Whalen DO - 09/07/2023 6:29 PM EST Yestan, can leave be * Telephone Encounter - Anneliese Figueroa LPN - 09/07/2023 3:04 PM EST Was this addressed during yesterday's office visit? * Telephone Encounter - Harmony Yu RN - 08/25/2023 2:05 PM EST Left message for [facility] staff to call back. Please address below message. * Telephone Encounter - Luis Whalen DO - 08/25/2023 12:42 PM EST Please call: I heard that her BG yesterday was over 400. Could you ask them to please give us her last ten days of blood sugars? documented in this encounter Plan of Treatment Upcoming Encounters Date Type Department Care Team (Late st Contact Info) Description 09/08/2023 8:00 AM EST Laboratory Lab [facility] [address] [place] [address] Village, [facility] [address] [place] [address] 09/08/2023 4:45 PM EST Anticoagulation Pharmacy Call Center [address] [place] [address] Ccps, [facility] [address] [place] [address] 09/09/2023 3:30 PM EST Immunization/Injection Hematology/Oncology Treatment, [place] [address] [facility] [place] [address] Nurse, Med [address] [place] [address] 09/30/2023 12:30 PM EST Office Visit [address] [address] Wu Varma DO [address] [place] [address] 11/04/2023 1:15 PM EST [facility] [place] [facility] [place] [address] [address] Juventino Sarah MD [address] [place] [address] 01/05/2024 3:40 PM EDT Office Visit Family Practice [facility] [place] [address] [place] [address] Luis Whalen, DO [address] [place], [place] [address] Health Maintenance Due Date Last Done Comments [...] 10/21/2022, Additional history exists Hgb 09/06/2024 09/06/2023, 120 03/2023, 08/25/2023, Additional history exists TSH 09/06/2024 [...] Documents on File Type Date Recorded Patient Chute Puller Expl anation Power of Cupola Repairer 11/28/2003 Care Teams Project Lead Relationship Specialty Start Date End Date Luis Whalen DO [address] [facility] [place] [address] PCP - General Family Medicine 11/09/18 documented as of this encounter
--- OUTSIDE RECORDS SUMMARY | 2023-11-12 10:42 | External Medical Summary | Summary of Care ---
Author Name Unknown Organization [facility] Address [address] [place] [address] Phone [phone] Care Team Providers Care Commercial Installer Name Role Phone Luis Whalen DO Primary Care Provider [phone] Encounter Details Date Type Department Care Team (Late st Contact Info) Description 09/06/2023 Orders Only Hematology/Oncology, [facility] [address] [place], [place] [phone] Simona Velez MD [address] [place], [place] [phone] Allergies Active Allergy Reactions Criticality Noted Date [...] as of this encounter (statuses as of 09/06/2023) Medications Medication Sig Dispensed Refills Start Date [...] CLARIFIED 100 g 4 12/18/19 22 Active PreserVision AREDS 2 Oral Capsule Take by mouth 1 Capsule in the morning AND 1 Capsule before bedtime. 60 Capsule 3 12/26/19 22 Active Docusate Sodium 100 MG Oral [...] other days 60 Tablet 1 02/06/20 Active Additional Information Patient not taking.Reported on [...] WED, SAT) 16 Tablet 4 08/24/20 Active documented as of this encounter (statuses as of 09/06/2023) Active Problems Problem Noted Date Diagnosed Date [...] as of this encounter (statuses as of 09/06/2023) Resolved Problems Problem Noted Date Diagnosed Date [...] as of this encounter (statuses as of 09/06/2023) Immunizations Name Administration Dates Next Due COVID-19 [...] EST Office Visit Family Practice [place] [place] [address] [facility] [place] [address] Luis Whalen, [address] [place] [address] 09/08/2023 8:00 AM EST Laboratory Lab [facility] [address] [place] [address] [facility] [address] [place] [address] 09/08/2023 4:45 PM EST Anticoagulation Pharmacy Call Center [place] [address] [place] [address] Ccps, [facility] [address] [facility] [place] [address] 09/09/2023 3:30 PM EST Immunization/Injection Hematology/Oncology Treatment, [place] [address] [place] [address] Nurse, Med 4 [address] [facility] [place] [address] 09/21/2023 4:00 PM EST Office Visit Family Practice [facility] [place] [address] [facility] [place] [address] Luis Whalen, DO [address] [facility] [place] [address] 09/30/2023 12:30 PM EST Office Visit [facility] [address] [place] [address] Wu Varma, [address] [place] [address] 11/04/2023 1:15 PM EST Office Visit Hematology/Oncology [facility] [place] [address] [facility] [place] [address] Juventino Sarah MD [address] [facility] [place] [address] Health Maintenance Due Date Last Done Comments [...] 08/11/2019, Additional history exists TSH 02/04/2024 02/03/2023, 2 02/2022, 12/11/2020, Additional history exists Diabetic Eye Exam 02/23/2024 02/22/2023, , 02/11/2021, Additional history exists Hgb 08/26/2024 08/26/2023, 120 02/2023, 08/11/2023, Additional history exists Pneumococcal Vaccine: [...] Documents on File Type Date Recorded 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
--- OUTSIDE RECORDS SUMMARY | 2023-11-12 10:42 | External Medical Summary | Continuity of Care Document ---
Author Name Unknown Organization [facility] [address] 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 Active sulfamethoxazole ? Active trimethoprim ? Active tetanus toxoid swollen and hives Active Medications amiodarone 200 mg oral tablet [...] Hold steroid for those 10 days., Pharmacy: [facility] Start Date: 06/05/22 Status: Ordered Calcium 500+D Start: 04/21/16 9:30:00, See Instructions, 1 tab po daily Start Date: 04/21/16 Status: Ordered cephalexin 500 mg oral capsule Start: 03/18/23 8:34:00 EDT, 1 cap, PO, tid, Disp# 40 cap, Refills: 0, with food., Pharmacy: [facility] Start Date: 03/18/23 Status: Ordered cholecalciferol 25 [...] Refills: 3, please shampoo Mon Wed, Pharmacy: [facility] Start Date: 01/07/22 Status: Ordered Levoxyl 100 [...] 45 g, Refills: 2, to face., Pharmacy: [facility] Start Date: 03/18/23 Status: Ordered MiraLax Start: 10/02/21 14:22:00 EST, PO, Daily Start Date: 10/02/21 Status: Ordered mupirocin 2% topical ointment Start: 08/30/23 11:57:00 EST, 1 appl, topical, bid, Disp# 22 g, Refills: 1, To central scalp BID, Pharmacy: [facility] Start Date: 08/30/23 Status: Ordered One [...] Refills: 3, apply to scalp, Pharmacy: [facility] Start Date: 06/27/21 Status: Ordered Tylenol [...] Start Date: 03/18/23 Status: Ordered Mental Status 08/30/23 Barriers to Learning one year None evide nt Mandatory Health Literacy Documentation Yes Health Literacy Communication Barriers N ever Primary Language [place] Problem List Condition Confirmation Course Effective Dates [...] SWAB drawn 06/03/2022 13:12 16/08/16 Wound Culture [place] Swab 4+MRSA Diagnosis Diagnosis Type Effective Dates Health Status Clinical Service Informant Erosive pustular dermatosis of scalp Discharge Diagnosis 08/30/23 Non-Specified 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 Dr. Whitlock's plan wasto evaluate scalp at this visit. Clinically, patient had significant thick adherent scale present on the crown of the scalp. This was soaked off revealing eroded patches and macules consistent with erosive pustular dermatosis of the scalp. No focal lesions concerning for SCC. Patient and daughter instructed to apply mupirocin 2% ointment to all eroded areas on scalp BID. Plan for follow-up as scheduled with Dr. Whitlock 09/2022. Electronic Signature on File Electronically Reviewed/Signed by: Judy Armstrong MD Author Signature Dt/Tm:08/30/2023 05:15 PM Department of Dermatology CS * MD Whitlock Sara B: REVIEW MD Whitlock Sara B: REVIEW, SIGN, VERIFY Event Display: Dermatology Outpt Proc Authored Date: [id number] Patient: MARCO ANTONIO BRUNNER Age: 88 years Sex: Female : 1935 Associated Diagnoses: None Author: MD Armstrong Cassandra Visit Information Nurse/MA: Visit Information [facility] number: [id number] [facility] location of surgery: [facility] Pathology accession number: [id number] [facility] Supervisor Riveting: MYRTLE Cason Lauren A [facility] Surgeon: MD Armstrong Cassandra [facility] Referring Physician: MD Whitlock Sara B [facility] Family Physician: DO Whalen Shane D . Referral information: Referring Physician: MD Whitlock Sara B. Family physician information: Primary Care Physician: DO Whalen Shane D . Location: [place]. Health Status Allergies: Allergic Reactions (Selected) Moderate Amoxicillin- Unknown. Severity Not Documented Bactrim- ?. Sulfamethoxazole- ?. Tetanus toxoid- Swollen and hives. Tetracycline- Swollen , hives. Trimethoprim- ?.. Current medication: (Selected) Prescriptions Prescribed Bactroban 2% topical ointment: 1 appl, topical, tid, BID to open areas of scalp for 10 days. Wash area gently daily. Hold steroid for those 10 days., 22 g, 1 Refill(s) MetroCream 0.75% topical cream: 1 appl, topical, bid, to face., 45 g, 2 Refill(s) cephalexin 500 mg oral capsule: 1 cap, PO, tid, with food., 40 cap, 0 Refill(s) ketoconazole 2% topical shampoo: 1 appl, topical, Daily, please shampoo Wed, 120 mL, 3 Refill(s) mupirocin 2% topical ointment: 1 appl, topical, bid, To central scalp BID, 22 g, 1 Refill(s) triamcinolone 0.1% topical lotion: 1 appl, topical, bid, apply to scalp, 60 mL, 3 Refill(s) Documented Medications Documented Calcium 500+D: See Instructions, 1 tab po daily Colace: Coumadin 1 mg oral tablet: 2 tab, Daily, 1mg Wednesday, Wednesday, Wednesday. 2mg other days- Estrace Vaginal 0.1 mg/g vaginal cream: Flonase 50 mcg/inh nasal spray: 2 spray, each nostril, Daily ICaps AREDS: Levoxyl 100 mcg (0.1 mg) oral tablet: 1 tab, PO, Daily Melatonin: 3 mg, PO, qhs Metoprolol Tartrate 25 mg oral tablet: MiraLax: PO, Daily One Touch Finepoint (25G) Lancets: See Instructions, 1 box One Touch Ultra Blue Test Strips: See Instructions, tid, 1 box Probiotic Formula: Tylenol 500 mg oral tablet: 2 tab, PO, q8h Ultram 50 mg oral tablet: 0.5 tab, PO, q6h, PRN: pain - moderate Vitamin B12: amiodarone 200 mg oral tablet: amoxicillin 500 mg oral capsule: 4 cap, PO, As indicated, one hour before dental and other procedures as directed, 12 cap, 3 Refill(s) aspirin: cholecalciferol 25 mcg (1000 intl units) oral tablet: 1 tab, PO, Daily diclofenac 1% topical gel: ferrous sulfate: 325 mg, PO, Daily glipiZIDE 5 mg oral tablet: hydrOXYzine hydrochloride 10 mg oral tablet: loperamide: loratadine 10 mg oral capsule: menthol-zinc oxide 0.44%-20.6% topical ointment: rosuvastatin 10 mg oral tablet: sertraline 25 mg oral tablet: tamsulosin 0.4 mg oral capsule: 1 cap, PO, Daily unknown medication: guaifenesin er. Problem list: Medical Skin lesion / SNOMED CT 523752107 / Confirmed History of squamous cell carcinoma of skin / SNOMED CT 6368990511 / Confirmed Actinic keratoses / SNOMED CT 3658830326 / Confirmed Erosive Pustular Dermatosis / SNOMED CT 8241796081 / Confirmed Rosacea / SNOMED CT 9824858953 / Confirmed Neoplasm of uncertain behavior of skin / SNOMED CT 270886164 / Confirmed Arthritis / SNOMED CT 5804635 / Confirmed Afib / SNOMED CT 52178151 / Confirmed Inflamed seborrheic keratosis / SNOMED CT 8525417342 / Confirmed Dens fracture / SNOMED CT 0851763798 / Confirmed Changing skin lesion / SNOMED CT 1661240957 / Confirmed Seborrhea / SNOMED CT 9704086881 / Confirmed 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 / Confirmed MRSA (methicillin resistant staph aureus) culture positive / SNOMED CT 8495825494 / Confirmed All Problems Skin lesion / SNOMED CT 177773046 / Confirmed History of squamous cell carcinoma of skin / SNOMED CT 0125263769 / Confirmed Actinic keratoses / SNOMED CT 9125233019 / Confirmed Erosive Pustular Dermatosis / SNOMED CT 0585544779 / Confirmed Rosacea / SNOMED CT 2097618809 / Confirmed Neoplasm of uncertain behavior of skin / SNOMED CT 050367384 / Confirmed Arthritis / SNOMED CT 0028146 / Confirmed Afib / SNOMED CT 77386713 / Confirmed Inflamed seborrheic keratosis / SNOMED CT 7307446095 / Confirmed Dens fracture / SNOMED CT 1715114089 / Confirmed Changing skin lesion / SNOMED CT 5391067501 / Confirmed Seborrhea / SNOMED CT 3532992046 / Confirmed MRSA carrier / SNOMED CT 9768242977 / Confirmed MRSA (methicillin resistant staph aureus) culture positive / SNOMED CT 1679590503 / Confirmed. Mohs Surgical Information Operation: Surgical excision of cutaneous malignancy using continuous microscopic control (Mohs Micrographic Surgery). 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 Nurse/MA: Surgical Information Mohs Surgical Diagnosis: In situ Mohs Surgical Location: Right, Nose Mohs Previous Treatment: None Mohs Anesthetic: 0.5% lidocaine with epinephrine and bicarbonate Mohs Preop Size of Tumor Length: 0.5 cm Mohs Preop Size of Tumor Width: 0.4 cm Mohs Stage 1 Specimen: 1 Mohs Final defect size Length: 0.8 cm Mohs Final defect size Width: 0.8 cm Mohs Size of repair: East West Advancement Flap 1.6cm2 Mohs Type of Suture: Monocryl 5-0, Prolene 6-0 . Indications for Mohs surgery: High risk location, Ill-defined margins. Appropriate Use Criteria (AUC): 7 . Anesthetic: 0.5% lidocaine with epinephrine and bicarbonate. Total volume of anesthetic administered: 6 ml. Clinical description: 0.5 cm pink atrophic papule . Procedure: Informed consent was obtained which included explanation of the Mohs surgery procedure, reasons why Mohs surgery was preferable to alternatives such as standard excision, and wound management, associated risks, scarring, and potential need for further surgery. The patient verbalized understanding and all questions were answered. The biopsy site/lesion was outlined, and the location was re-confirmed by the patient using a hand held mirror. The operative site was then prepped with antiseptic solution, draped, and anesthetized with a infiltration of local anesthetic. Following this, the clinically apparent portion of the tumor was surgically removed. A thin layer of tissue was then surgically excised around the tumor. Hemostasis was obtained with electrocautery, or aluminum chloride, and a pressure dressing was placed on the wound. Bipolar forceps were used in patients with an implanted electrical device. A reference map was drawn and the excised tissue was cut into an appropriate number of sections for examination in the Mohs micrographic laboratory. Edges of each tissue section were dyed with tissue marking ink inorder to achieve precise orientation. These tissue sections were then processed and stained to produce slides for evaluation of the entire peripheral and deep margins of the excised tissue. The prepared microscopic sections were then examined by the Mohs surgeon. Procedural Time Out: Patient identified with name and date of , Procedure verified, Correct site, if applicable. Stages: Stage 1 included multiple microscopic sections of 1 tissue specimens, At this point, no further tumor cells were identified. Tumor eradication was complete after a total of 1 stage(s) of surgery. Wound management: A discussion was held with the patient about reconstruction options and wound healing, addressing functional and cosmetic concerns along with benefits and potential risks of each approach., This wound was reconstructed with an East-West advancement flap. This form of reconstruction was required to restore function, eliminate space, relieve tension, prevent deformity, and approximate the edges of the defect, which extended to the deep subcutaneous tissues. The surgical defect and the donor site were prepped and draped with sterile towels to ensure a sterile field. Supplemental anesthesia was administered. An advancement flap was designed along relaxed skin tension lines and to take advantage of tissue reservoirs. The flap was incised to the subcutaneous fat. The beveled edges of the wound were excised to 90 degrees. Undermining was performed widely in all directions in the subcutaneous plane, and hemostasis was obtained with electrocoagulation. The flap was then advanced into the surgical defect sutured into place with absorbable buried sutures in the subcutaneous layer. Redundant tissue was trimmed as standing cones or Streator triangles the cutaneous portion of the repair was completed with superficial cutaneous sutures. The reconstructed area was then cleansed and sterile pressure dressings were placed. The patient was instructed in postoperative care. . Procedure Tolerated: Well, Without complications, Estimated blood loss 10 ml. Postoperative follow up: 1 week, Suture removal. Photo: . 2023-08-30 09:42:11 2023-08-30 11:08:44 2023-08-30 12:00:56 Mohs Surgical Information Second Site Nurse/MA: Surgical Information 2nd Site . Electronic Signature on File CC: Jennifer Whitlock MD [address] [facility] [address] [place] [address] CC: Luis Whalen DO [address] [place] [address] * Electronically Reviewed/Signed by: Judy Armstrong MD Author Signature Dt/Tm:08/30/2023 05:02 PM Department of Dermatology CS * MYRTLE Cason, Chelle Caicedo: PERFORM Event Display: Dermatology Outpt Proc Authored Date: [id number] DERMATOLOGY MOHS MAPPING IMAGES Name: MARCO ANTONIO BRUNNER Patient Number: [id number] : 1935 Date of Service: 08/30/2023 _ Electronic Signature on File Electronically Reviewed/Signed by: Chelle Cason Author Signature Dt/Tm:08/30/2023 02:12 PM Electronically Reviewed/Signed by: Judy Armstrong MD Cosigner Signature Dt/Tm: 08/30/2023 03:03 PM Department of Dermatology LAC Patient Care team information Care Team Personnel Name: LUIS EDUARDO Quiroz Ashley Position: Physician Supervisor Riveting - Neurosurgery Member Role: Lifetime Relationship Address: Address: [address] [facility] [place] [address] Name: DO Whalen Shane D Position: Referring DIRECT Member Role: Primary Care Provider Address: Address: [address] [facility], [place] [address] Care Team Related Persons Name: JESSE HOFFMANN Name: JOSE JUAN HOFFMANN Address: home No Address Provided Name: JOSE JUAN HOFFMANN
--- OUTSIDE RECORDS SUMMARY | 2023-11-12 10:42 | External Medical Summary ---
Author Name Unknown Address Unknown Organization K09[facility] [place] [address] Laboratory Report Ordering Provider Test Date Status VITA LI 09/06/2023 13:48:09 Final Observation Date Value Abnormality Reference (Units ) Status SYNC LEUKOCYTES IN BLOOD BY AUTOMATED COUNT 09/06/2023 13:48:09 4.73 4.00-10.80 (K/uL) Final Segs 09/06/2023 13:48:09 61.5 40.0-75.0 (%) Final Lymphs % 09/06/2023 13:48:09 28.8 18.0-42.0 (%) Final Monos 09/06/2023 13:48:09 7.2 1.0-11.0 (%) Final Eosinophils 09/06/2023 13:48:09 1.9 0.0-6.0 (%) Final Basos 09/06/2023 13:48:09 0.6 0.0-2.0 (%) Final Absolute Segs 09/06/2023 13:48:09 2.91 1.80-7.70 (K/uL) Final Lymphs, absolute 09/06/2023 13:48:09 1.36 1.00-4.80 (K/ul) Final Monos, Abs 09/06/2023 13:48:09 0.34 0.00-1.10 (K/uL) Final Eos, Abs 09/06/2023 13:48:09 0.09 0.00-0.70 (K/uL) Final Basos, Abs 09/06/2023 13:48:09 0.03 0.00-0.20 (K/uL) Final Performing Location [facility] [place] [address]
--- OUTSIDE RECORDS SUMMARY | 2023-11-12 10:42 | External Medical Summary | Summary of Care ---
Author Name Unknown Organization [facility] Address [address] [place] [address] Phone [phone] Care Team Providers Care Change Coordinator Name Role Phone Moy Hassan DO Primary Care Provider [phone] Reason for Visit * Reason Onset Date Comments Medication Refill 09/06/2023 Encounter Details Date Type Department Care Team (Late st Contact Info) Description 09/06/2023 Refill Family Practice [facility] [place] [address] [place] [address] Moy Hassan DO [address] [facility] [place] [address] Allergies Active Allergy Reactions Criticality Noted Date [...] bedtime. 60 Capsule 3 09/06/20 23 Active PreserVision AREDS 2 Oral Capsule Take by mouth 1 Capsule in the morning AND 1 Capsule before bedtime. 60 Capsule 3 12/26/19 22 023 Discontin ued(Refil l) documented as of this [...] Telephone Encounter - Moy Hassan DO - 09/06/2023 12:50 PM ESTSigned Prescriptions: Disp Refills PreserVision AREDS 2 Oral Capsule 60 Cap*3 Sig: Take 1 Capsule by mouth in the morning and 1 Capsule before bedtime. Authorizing Provider: MOY HASSAN * Telephone Encounter - Alec JazmineBarrington - 09/06/2023 11:56 AM EST Did you pend patient's preferred pharmacy and medication before forwarding?yes Pharmacy: [facility] Pending Prescriptions: Disp Refills PreserVision AREDS 2 Oral Capsule 60 Cap*3 Sig: Take 1 Capsule by mouth in the morning and 1 Capsule before bedtime. Last Visit: 05/17/2023 (in office), 10/29/2020 (telemedicine) Next Visit: 09/06/2023 If no future appointments scheduled, and last appointment is greater than a year ago, please schedule patient for a follow-up appointment Last date the medication was ordered: 12/25/2021 Is this request for a controlled substance?No Urine Drug Screen:No results found. However, due to the size of the patient record, not all encounters were searched. Please check Results Review for a complete set of results. Patient Phone Numbers Labs: Lab Results Component Value Date/Time CREAT 1.1 (H) 07/29/2023 07:30 AM CREAT 1.56 (A) 04/03/2022 12:00 AM CREAT 1.3 (H) 07/26/2020 11:54 AM POTASSIUM 4.6 07/29/2023 07:30 AM POTASSIUM 4.4 04/03/2022 12:00 AM POTASSIUM 4.5 07/26/2020 11:54 AM POTASSIUM 4.1 11/09/1996 09:20 AM TSH 8.22 (H) 02/03/2023 12:47 PM TSH 0.86 07/26/2020 11:54 AM TSH 3.16 12/25/1996 09:53 AM LDLCALC 20 05/15/2022 02:26 PM LDLCALC 54 03/28/2020 11:41 AM LDLDIRECT 91 09/08/2018 04:31 PM LDLDIRECT 97 04/07/2010 08:49 AM ALT 30 07/29/2023 07:30 AM ALT 14 07/26/2020 11:54 AM HGBA1C 7.6 (H) 02/03/2023 12:47 PM HGBA1C 7.4 (A) 06/26/2020 12:00 AM HGBA1C 7.7 (H) 03/28/2020 11:41 AM HGBA1C 5.7 11/09/1996 09:20 AM documented in this encounter Plan of Treatment Upcoming Encounters Date Type Department Care Team (Late st Contact Info) Description 09/08/2023 8:00 AM EST Laboratory Lab [facility] [address] [place] [address] [place], [facility] [place] [address] [place] [address] 09/08/2023 4:45 PM EST Anticoagulation Pharmacy Call Center [address] [place] [address] [facility], [facility] [address] [place] [address] 09/09/2023 3:30 PM EST Immunization/Injection Hematology/Oncology Treatment, [place] [address] [facility] [place] [address] Nurse, Med 4 [address] [facility] [place] [address] 09/21/2023 4:00 PM EST Office Visit Family Practice [facility] [address] [facility] [place] [address] Moy Hassan DO [address] [facility] [place] [address] 09/30/2023 12:30 PM EST Office Visit [facility] [address] [place], [place] [id number] Wu Varma, [address] [place] [address] 11/04/2023 1:15 PM EST Office Visit Hematology/Oncology [facility] [address] [place] [address] Juventino Sarah MD [address] [place] [address] Health Maintenance Due Date Last Done Comments [...] Documents on File Type Date Recorded Patient [employer] Expl anation Power of Inside Wireman 11/28/2003 Care Teams Change Coordinator Relationship Specialty Start Date End Date Moy Hassan DO [address] [place] [address] PCP - General Family Medicine 11/09/18 documented as of this encounter
--- OUTSIDE RECORDS SUMMARY | 2023-11-12 10:43 | External Medical Summary | Summary of Care ---
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 30 Tab 0 020 Active Probiotic 250 MG Oral CapsuleIndications:Rec urrent UTI Take 250 mg by mouth daily. 30 Cap 11 021 Active Diclofenac Sodium 1 % External Gel (Voltaren) APPLY TO JOINT TOPICALLY EVERY 12 HOURS NEEDED FOR PAIN -- DOSE IN GRAMS MAY NEED CLARIFIED 100 g 4 Active PreserVision AREDS 2 Oral Capsule Take by mouth 1 Capsule in the morning AND 1 Capsule before bedtime. 60 Capsule 3 022 Active Docusate Sodium 100 MG Oral Capsule (Colace) Take by mouth 1 Capsule before bedtime. 30 Capsule 5 022 Active Acetaminophen 500 MG Oral Tablet (Tylenol) Take by mouth 2 Tablets every 8 hours as needed for Fever >38C(100.5F) or Pain, Moderate. 100 Tablet 5 Active Fluticasone Propionate 50 MCG/ACT Nasal Suspension (Flonase)Indications:C hronic rhinitis 2 SPRAYS IN EACH NOSTRIL AT [...] MOUTH AT BEDTIME FOR HYPERLIPIDEMIA 90 Tablet 023 Active Calmoseptine 0.44-20.6 % External Ointment (Menthol-Zinc Oxide) Apply topically to affected area every evening. Apply to scab 20 g 023 Active Vitamin D 50 MCG (2000 UT) Oral Capsule Take 2,000 Units by mouth in the morning. 90 Capsule 023 Active Sertraline HCl 25 MG Oral Tablet (Zoloft)Indications:GA D (generalized anxiety disorder) Take 1 Tablet by mouth in the morning. 30 Tablet 023 Active Warfarin Sodium 3 MG Oral Tablet (Coumadin) TAKE 1/2 TAB (1.5MG) BY MOUTH Daily 5 days per week. Current regimen; 2mg MF, 1.5mg all other days 60 Tablet 023 Active Additional Information Patient not taking.Reported on 08/05/2023 Levothyroxine Sodium 112 MCG Oral Tablet (Levoxyl) Take 1 Tablet by mouth in the morning. (at least 30 min prior to breakfast or other meds). 90 Tablet 023 Active Mupirocin 2 % External Ointment (Bactroban) Apply topically to affected area daily. Apply to scalp everyday for wound care protocol 22 g 023 Active Aspirin 81 MG Oral Tablet Chewable (Aspirin Low Dose) 1 TAB BY MOUTH EVERY MORNING THREE TIMES WEEKLY ON MON,WED,FRI *HEART HEALTH* 12 Tablet 5 023 Active glipiZIDE ER 5 MG Oral Tablet Extended Release 24 Hour TAKE 2 TABLETS BY MOUTH IN THE MORNING. - PER PREVIOUS ORDER: TAKE 30-MINUTES BEFORE MEAL 180 Tablet 1 023 Active Amiodarone HCl 200 MG Oral Tablet (Cordarone) Take 1 Tablet by mouth in the morning. 30 Tablet 4 023 Active Loratadine 10 MG Oral Tablet (Claritin)Indications: Non-seasonal allergic rhinitis, unspecified trigger Take 1 Tablet by mouth in the morning. 30 Tablet 5 023 Active Metamucil Smooth Texture 58.6 % Oral Powder (Psyllium)Indications: Loose stools Take 1 Scoop by mouth in [...] dental appointments. 3 Tablet 0 023 Active Melatonin 3 MG Oral CapsuleIndications:Ins omnia, unspecified type Take 1 Capsule by mouth at bedtime. 30 Capsule 11 021 2022 Discontinued(R efill) hydrOXYzine HCl 10 MG Oral Tablet (Atarax)Indications:GA D (generalized anxiety disorder) Take by mouth 1 Tablet every 6 hours as needed for Anxiety. 40 Tablet 5 022 2022 Discontinued(P atient preference/dis continuation) guaiFENesin ER 600 MG Oral Tablet Extended Release 12 Hour (Mucinex) Take by mouth 1 Tablet 2 times a day as needed for Congestion. Take with plenty of water. Do not cut, crush or chew 60 Tablet 5 022 2022 Discontinued(P atient preference/dis continuation) Polyethylene Glycol 3350 17 GM/SCOOP Oral Powder (MiraLax) Take by mouth 17 g as needed for Constipation. Dissolve one heaping tablespoon in 8 ounces of water or juice as needed. 17 g 1 022 2022 Discontinued(P atient preference/dis continuation) Warfarin Sodium 2 MG Oral Tablet (Coumadin)Indications: Paroxysmal atrial fibrillation (HCC) 1 TAB BY MOUTH FOUR TIMES A WEEK ON MON, WED, FRI, SAT 12 Tablet 4 022 2022 Discontinued(R efill) Betamethasone Valerate 0.12 % External Foam 0 022 2022 Discontinued(P atient preference/dis continuation) Optifoam Gentle AG Dressing 4"X4" External Pad Apply to back side daily for 10 days 10 Each 0 023 2022 Discontinued(E nd of Procedure) Fosfomycin Tromethamine 3 GM Oral Packet (Monurol) 0 023 2022 Discontinued(P atient preference/dis continuation) Menthol-Zinc Oxide 0.4-20.5 % External Paste DAILY IN THE EVENING 0 023 2022 Discontinued(P atient preference/dis continuation) Metoprolol Tartrate 25 MG Oral Tablet (Lopressor) TAKE 1/2 TAB (12.5MG) BY MOUTH TWICE DAILY 30 Tablet 5 023 2022 Discontinued Estradiol 0.1 MG/GM Vaginal Cream (Estrace)Indications:R ecurrent UTI ADMINISTER 1GM INTO THE VAGINA EVERY DAY 42.5 g 4 023 2022 Discontinued(P atient preference/dis continuation) Warfarin Sodium 1 MG Oral Tablet (Coumadin)Indications: Paroxysmal atrial fibrillation (HCC) Take up to one and one-half tablets by mouth daily as directed by anticoagulation clinic 45 Tablet 1 023 2022 Discontinued(R efill) documented as of this encounter (statuses as [...] mRNA, LNP-s, No Pre serve, 2-Dose Series ([employer]) 10/19/2020,09/28/2020 Pneumococcal Conjugate Vacc, 13 Valent (Prevnar) [...] Date Smoking Tobacco: Never Smokeless Tobacco: Never Tobacco Cessation:Counseling Given: Not Answered Alcohol Use Standard Drinks/Week Comments Yes 0 [...] Sign Reading Time Taken Comments Blood Pressure 100/61 07/01/2023 2:00 PM EDT Pulse 68 07/01/2023 2:00 PM EDT Temperature - - Respiratory Rate 16 07/01/2023 2:00 PM EDT Oxygen Saturation 93% 07/01/2023 2:00 PM EDT Inhaled Oxygen Concentration - - Weight 57.8 kg (127 lb 6.4 oz) 07/01/2023 2:00 P M EDT Height - - Body Mass Index 24.88 03/04/2022 4:56 PM EDT documented in this encounter Progress Notes * Juventino Sarah MD - 07/01/2023 2:15 PM EDT Hematology/Oncology Outpatient Clinic note [facility] M[facility] [address] [place] [address] Name: Radha Cardenas Date: 11/04/2022 CHIEF COMPLAINT: [...] antibody in the blood. CURRENT TREATMENT: Erythropoietin 35032 units every other week on 10/21/2021[place] [address] units every other week on 11/19/2022. Ferrous sulfate 1 tablet daily DIAGNOSTIC WORKUP: -Hemoglobin level was around 11.4 g/dL earlier in July 2011. -in March 2020 --> normal WBC normal Platelet count, Hemoglobin was around 9.1, MCV 81. About 1 and half year back she was admitted at [facility] for brain bleed, treated conservatively, on Coumadin [...] (10/2018, 06/2020, 10/2020. She was admitted at [facility] in 10/2020 for sepsis, I reviewed those [...] History: Patient was hospitalized in September at [facility] with UTI and gross hematuria. Experienced an acute blood loss anemia requiring one unit of PRBC. Coumadin was held. Received IV antibiotics and was discharged on Cefdinir. Follows with Dr. Peter at [facility]. Was hospitalized this last week for the same reasons. Received another unit of PRBC. HISTORY OF PRESENT ILLNESS: She has come the clinic for the follow-up, accompanied by her son in the office. Currently she is at [facility], no recent hospitalization, no recent blood transfusion, currently checking blood workup every 2 weekly [place] [address] units if the hemoglobin level is less than 11, lately she has missed some treatment because of hemoglobin level was over 11 g/dL, overall response noted with Retacrit therapy. No bleeding from the sites. Came to clinic in the wheelchair. Past Medical History: Diagnosis Date Anemia Anemia [...] BREAST, OPEN 11/19/2003 benign BREAST BIOPSY-STEREOTACTIC 11/14/2003 [facility] COLONOSCOPY, GI REFERRAL OP 08/03/2005 [facility] DENTAL SURGERY PROCEDURE NEC Dental Surgery Procedure DESTRUCTION PREMALIGNANT LESION 2-14 EA DEXA SCAN/BONE MINERAL AXIAL 04/14/2006 nl repeat in 2008 DIABETIC EYE EXAM 04/25/2004 Jaron Estrada MD LOWERATOR OPERATOR PAP SCREEN 05/22/2010 neg/stevenson INFORMATION 11/30/2001 PAP test WNL INJECT DX/THER SUBSTANCE INTERLAMINAR LUMBAR/SACRAL W IMAGE GUIDE 12/20/2017 INJECTION SPINE LUMBAR OR SACRAL performed by Jamar Sahu, DO at [facility] INJECT DX/THER SUBSTANCE INTERLAMINAR LUMBAR/SACRAL W IMAGE GUIDE 01/06/2018 INJECTION SPINE LUMBAR OR SACRAL performed by Jamar Sahu, DO at OR [facility];W/HYSTERECTOMY MAMMOGRAM - [...] OUTSIDE PROCEDURE 11/10/2010 normal repeat one year [facility] MAMMOGRAM OUTSIDE PROCEDURE 11/11/2011 normal repeat one year [facility] MAMMOGRAM OUTSIDE PROCEDURE 11/15/2013 normal repeat one year [facility] OTHER ct of abd and pelvis on 11/09/2020 PAP SCREEN 10/14/1999 PAP SCREEN 03/28/2003 WNL PAP SCREEN 05/19/2004 WNL PAP SCREEN 07/16/2005 WNL PAP SCREEN 05/04/[address] Stevenson PAP SMEAR, OUTSIDE PROCEDURE 05/14/2009 neg/elva AL LAPAROSCOPY, SURGICAL: CHOLECYSTECTOMY Social History Tobacco Use [...] TOUCH ULTRA VANCE tests tid 1 0 ONETOUCH ULTRA SYSTEM W/DEVICE KIT tid 1 0 ONETOUCH LANCETS MIS Use one lancet 3 times daily. DX:E11.9 300 Each 3 Glucose Blood (ONETOUCH ULTRA BLUE) STRP Use one strip 3 times daily. 300 Strip 3 Ferrous Sulfate 325 (65 Fe) MG Oral Tablet (FEOSOL) Take 1 Tab by mouth daily with breakfast. 30 Tab 0 Probiotic 250 MG Oral Capsule Take 250 mg by mouth daily. 30 Cap 11 Melatonin 3 MG Oral Capsule Take 1 Capsule by mouth at bedtime. 30 Capsule 11 hydrOXYzine HCl 10 MG Oral Tablet (Atarax) Take by mouth 1 Tablet every 6 hours as needed for Anxiety. 40 Tablet 5 Diclofenac Sodium 1 % External Gel (Voltaren) APPLY TO JOINT TOPICALLY EVERY 12 HOURS NEEDED FORPAIN -- DOSE IN GRAMS MAY NEED CLARIFIED 100 g 4 guaiFENesin ER 600 MG Oral Tablet Extended Release 12 Hour (Mucinex) Take by mouth 1 Tablet 2 timesa day as needed for Congestion. Take with plenty of water. Do not cut, crush or chew 60 Tablet 5 Polyethylene Glycol 3350 17 GM/SCOOP Oral Powder (MiraLax) Take by mouth 17 g as needed for Constipation. Dissolve one heaping tablespoon in 8 ounces of water or juice as needed. 17 g 1 PreserVision AREDS 2 Oral Capsule Take by mouth 1 Capsule in the morning AND 1 Capsule before bedtime. 60 Capsule 3 Docusate Sodium 100 MG Oral Capsule (Colace) Take by mouth 1 Capsule before bedtime. (Patient taking differently: Take 1 Capsule by mouth at bedtime as needed for Constipation.) 30 Capsule 5 Acetaminophen 500 MG Oral Tablet (Tylenol) Take by mouth 2 Tablets every 8 hours as needed for Fever >38C(100.5F) or Pain, Moderate. 100 Tablet 5 Warfarin Sodium 2 MG Oral Tablet (Coumadin) 1 TAB BY MOUTH FOUR TIMES A WEEK ON MON, WED, FRI, SAT 12 Tablet 4 Fluticasone Propionate 50 MCG/ACT Nasal Suspension (Flonase) 2 SPRAYS IN EACH NOSTRIL AT BEDTIME ASNEEDED FOR CONGESTION 48 g 1 Anti-Diarrheal 2 MG Oral Tablet (Loperamide) ONE TAB BY MOUTH DAILY BUT HOLD IF CONSTIPATION. 30 Tablet 4 Betamethasone Valerate 0.12 % External Foam Rosuvastatin Calcium 10 MG Oral Tablet 1 TAB BY MOUTH AT BEDTIME FOR HYPERLIPIDEMIA 90 Tablet 3 Calmoseptine 0.44-20.6 % External Ointment (Menthol-Zinc Oxide) Apply topically to affected area every evening. Apply to scab 20 g 3 Optifoam Gentle AG Dressing 4"X4" External Pad Apply to back side daily for 10 days 10 Each 0 Fosfomycin Tromethamine 3 GM Oral Packet (Monurol) Menthol-Zinc Oxide 0.4-20.5 % External Paste DAILY IN THE EVENING Metoprolol Tartrate 25 MG Oral Tablet (Lopressor) TAKE 1/2 TAB (12.5MG) BY MOUTH TWICE DAILY 30 Tablet 5 Vitamin D 50 MCG (2000 UT) Oral [...] breakfast or other meds). 90 Tablet 3 Estradiol 0.1 MG/GM Vaginal Cream (Estrace) ADMINISTER 1GM INTO THE VAGINA EVERY DAY 42.5 g 4 Mupirocin 2 % External Ointment (Bactroban) Apply topically to affected area daily. Apply to scalp everyday for wound care protocol 22 g 3 Aspirin 81 MG Oral Tablet Chewable (Aspirin Low Dose) 1 TAB BY MOUTH EVERY MORNING THREE TIMES WEEKLY ON MON,WED,FRI *HEART HEALTH* 12 Tablet 5 glipiZIDE ER [...] three times a day.. 660 g 3 B-12-SL 1000 MCG Sublingual Tablet Sublingual (Cyanocobalamin) Place 1,000 mcg under the tongue in the morning. 90 Tablet 3 Azithromycin 500 MG Oral Tablet (Zithromax) Take 1 pill before dental appointments. 3 Tablet 0 Warfarin Sodium 1 MG Oral Tablet (Coumadin) Take up to one and one-half tablets by mouth daily as directed by anticoagulation clinic 45 Tablet 1 No current facility-administered medications for this visit. OBJECTIVE: BP 100/61 (BP Site: Left Arm, BP Position: Sitting, BP Cuff Size: Regular) | Pulse 68 | Resp 16 | Wt 57.8 kg (127 lb 6.4 oz) | SpO2 93% | BMI 24.88 kg/m | BSA 1.56 m PHYSICAL EXAM: ECOG: Performance Status 2-3 General Appearance: No acute distress Lymph Nodes: Normal - No palpable lymph nodes in the neck or supraclavicular areas Lungs/Thorax: Normal - Clear to auscultation Heart: Normal - Regular rate and rhythm, normal S1, S2, no appreciable murmurs Pulses/Extremities: Normal - 2+ throughout and symmetrical, no edema Neurologic: alert and oriented x 4, [place], in wheelchair today LABS: Blood workup done on 07/01/2023: -WBC 6800, H&H of 10.8/34.8, Platelet count 979616, MCV 84. Anemia workup done on 04/28/2023: -Ferritin level --> 240, Serum iron: 34, TIBC 235, iron saturation 14% -folic acid --> 11.4, Vitamin B12 --> 1860. IMPRESSION/PLAN: Anemia of chronic kidney disease ( Stage IV disease) Acute blood loss anemia d/t hematuria Since November 2022, she is on higher dose of erythropoietin 91163 units every [place]. [place] [address] units every other week . Lately hemoglobin level has remained 10 -11 g/dL, sometimes It has gone above 11 and she has not received erythropoietin therapy during that time. I reviewed her blood workup done today, now hemoglobin around 10.8 g/dL, she will receive erythropoietin 50976 units today. Will continue to check CBCD every 2 weekly and she will receive erythropoietin 42305 units if the hemoglobin level is less than 11 g/dL she will continue oral iron replacement therapy I am planning to see her back in the clinic in about [address] Juventino Sarah Hem/Onc [...] documented in this encounter Nursing Notes * Erica Negron CMA - 07/01/2023 2:03 PM EDT Patient identifed by name and birthdate Do you have any concerns about pain management for today's visit? No Living Will or Advance Directive for Health Care as noted on the problem list. [facility] is a way you can talk to your provider on line through e-mail. Would you like to sign up? I can activate it for you? NO Filed Vitals: 07/01/23 1400 BP: 100/61 Pulse: 68 Resp: 16 SpO2: 93% Weight: 57.8 kg (127 lb 6.4 oz) Patient was instructed to not get up [...] 12:40 PM EST [facility] [employer] [address] [facility] [place] [address] Luis Whalen, [address] [facility] [place] [address] 09/08/2023 8:00 AM EST Laboratory Lab [facility] Ph[facility] [address] [place] [address] [facility] [address] [place] [address] 09/08/2023 4:45 PM EST Anticoagulation Pharmacy Call Center [facility] [address] [facility] [place] [address] [facility], [facility] [address] [facility] [place] [address] 09/09/2023 3:30 PM EST Immunization/Injection Hematology/Oncology Treatment, [place] [address] [facility] [place] [address] Nurse, Med 4 [address] [facility] [place] [address] 09/21/2023 4:00 PM EST Office Visit Family Practice [facility] [address] [facility] [place] [address] Luis Whalen DO [address] [facility] [place] [address] 09/30/2023 12:30 PM EST Office Visit [address] [address] Wu Varma, [address] [place] [address] 11/04/2023 1:15 PM EST Office Visit Hematology/Oncology [facility] [address] [facility] [place] [address] Juventino Sarah MD [address] [facility] [place] [address] Health Maintenance Due Date Last Done Comments [...] 02/03/2023, 070 05/2020, 08/11/2019, Additional history exists TSH 02/04/2024 02/03/2023, 04/21, 12/11/2020, Additional history exists Diabetic Eye Exam 02/23/2024 02/22/2023, , 02/11/2021, Additional history exists Hgb 08/26/2024 08/26/2023, 1202/2023, 08/11/2023, Additional history exists Pneumococcal Vaccine: 65+ [...] with erythropoietin- Primary documented in this encounter Advance Directives Documents on File Type Date Recorded Patient Health Care Recruiter Expl anation Power of Community Artist 11/28/2003 Care Teams Material Checker Relationship Specialty Start Date End Date Luis Whalen DO [address] [place] [address] PCP - General Family Medicine 11/09/18 documented as of this encounter
--- OUTSIDE RECORDS SUMMARY | 2023-11-12 10:43 | External Medical Summary | Summary of Care ---
Author Name Unknown Organization [facility] Address [address] [place] [address] Phone [phone] Care Team Providers Care Web Services Architect Name Role Phone Luis Whalen DO Primary Care Provider [phone] Reason for Visit * Reason Onset Date Comments Medication Problem 08/26/2023 Encounter Details Date Type Department Care Team (Late st Contact Info) Description 08/26/2023 Telephone Family Practice [facility] [place] 200 [facility] [place] [address] Luis Whalen DO 200 [facility] [place] [address] Medication Problem Allergies Active Allergy Reactions Criticality [...] as of this encounter (statuses as of 08/27/2023) Medications Medication Sig Dispensed Refills Start Date [...] other meds). 90 Tablet 3 02/06/20 Active Mupirocin 2 % External Ointment (Bactroban) Apply topically to affected area daily. Apply to scalp everyday for wound care protocol 22 g 03/03/20 Active Aspirin 81 MG Oral Tablet Chewable [...] the morning. 30 Tablet 4 05/04/20 23 Active Loratadine 10 MG Oral Tablet (Claritin)Indications:No n-seasonal allergic rhinitis, unspecified trigger Take 1 Tablet by mouth in the morning. 30 Tablet 5 05/17/20 23 Active Metamucil Smooth Texture 58.6 [...] as of this encounter (statuses as of 08/27/2023) Active Problems Problem Noted Date Diagnosed Date [...] as of this encounter (statuses as of 08/27/2023) Resolved Problems Problem Noted Date Diagnosed Date [...] as of this encounter (statuses as of 08/27/2023) Immunizations Name Administration Dates Next Due COVID-19 mRNA, LNP-s, No Pre serve, 2-Dose Series (Pfizer) 10/19/2020,09/28/2020 Pneumococcal Conjugate Vacc, 13 Valent (Prevnar) 07/26/2015 Pneumococcal Polysaccharide PPV23 (Pneumovax) 03/26/2017 SEASONAL INFLUENZA, PF, 6 M & Above, [...] encounter Miscellaneous Notes * Telephone Encounter - Sonja Felton LPN - 08/26/2023 1:28 PM EST Okay to d/c? * Telephone Encounter - Francoise Felder CPhT - 08/26/2023 12:13 PM EST Shania calling stating she will like med for Mupirocin 2 % External Ointment (Bactroban) D/C for Pt. Shania stated if any question please give her a call back at [phone]. Denise also stated she needs D/C order to be fax at [phone]. Thank you, Francoise Felder CPhT Pyrometer Mechanic II [facility] ([facility]PS) (Formerly Telepharmacy) 08/26/2023,12:15 PM documented in this encounter Plan of Treatment Upcoming Encounters Date Type Department Care Team (Late st Contact Info) Description 09/06/2023 12:40 PM EST Office Visit [facility] [address] [place] [address] [address] Luis Whalen, DO [address] [place] [address] 09/08/2023 8:00 AM EST Laboratory Lab Mobile Phlebotomy [facility] [address] [place] [address] [facility] [address] [place] [address] 09/08/2023 4:45 PM EST Anticoagulation Pharmacy Call Center [address] [place] [address] [facility] 58 [address] [place] [address] 09/09/2023 3:30 PM EST Immunization/Injection Hematology/Oncology Treatment, [place] [address] [place] [address] Nurse, Med [address] [place] [address] [address] 09/21/2023 4:00 PM EST Office Visit [facility] [place] [address] [place] [address] [address] Luis Whalen, DO [address] [place] [address] 09/30/2023 12:30 PM EST Office Visit [facility] [address] [place] [address] Wu Varma, [address] [place] [address] 11/04/2023 1:15 PM EST Office Visit Hematology/Oncology [facility] [place] 200 [facility] [place] [address] Juventino Sarah MD 200 [facility] [place] [address] Health Maintenance Due Date Last Done Comments [...] 08/11/2019, Additional history exists TSH 02/04/2024 02/03/2023, 08/02/2022, 12/11/2020, Additional history exists Diabetic Eye Exam [...] Documents on File Type Date Recorded Patient Roller Helper Expl anation Power of Webfed Offset Press Operator 11/28/2003 Care Teams Web Services Architect Relationship Specialty Start Date End Date Luis Whalen DO [address] [place] [address] PCP - General Family Medicine 11/09/18 documented as of this encounter
--- OUTSIDE RECORDS SUMMARY | 2023-11-12 10:43 | External Medical Summary | Summary of Care ---
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 Procedures NC INJ RETACRIT NON-ESRD USE NC EPOETIN JJ, NON-ESRD Juventino Sarah MD [address] [place] [address] [address] Anc Hem/Onc [facility] DEPT CLOSED - 08/03/[address] [place] [address] [address] Referral ID Status Reason Start Date Expiration Date V isits Requested Visits Authorized [id number] Authorized 09/30/2021 09/19/2099 99 99 Encounter Details Date Type Department Care Team (Latest Contact Info) Description 08/26/2023 3:30 PM EST Immunization/ Injection Hematology/Oncology Treatment, [place] [address] [place] [address] Nurse, Med [address] [place] [address] Anemia due to stage 4 chronic kidney [...] as of this encounter (statuses as of 08/26/2023) Medications Medication Sig Dispensed Refills Start Date [...] days 60 Tablet 1 02/06/20 23 Active Additional Information Patient not taking.Reported on 08/05/2023 Levothyroxine Sodium 112 MCG Oral Tablet (Levoxyl) Take 1 Tablet by mouth in the morning. (at least 30 min prior to breakfast or other meds). 90 Tablet 3 02/06/20 23 Active Mupirocin 2 % External Ointment (Bactroban) Apply topically to affected area daily. Apply to scalp everyday for wound care protocol 22 g 3 03/03/20 23 Active Aspirin 81 MG Oral Tablet Chewable (Aspirin Low Dose) 1 TAB BY MOUTH EVERY MORNING THREE TIMES WEEKLY ON WED,WED,FRI *HEART HEALTH* 12 Tablet 5 03/23/20 Active [...] clinic (THREE TIMES A WEEK ON SUN, TUES, THUR) 20 Tablet 1 08/24/20 23 Active Warfarin Sodium 2 MG Oral Tablet (Coumadin)Indications:Pa roxysmal atrial fibrillation (HCC) Take as directed by anticoagulation clinic (1 TAB BY MOUTH FOUR TIMES A WEEK ON MON, WED, FRI, SAT) 16 Tablet 4 08/24/20 23 Active documented as of this encounter (statuses as of 08/26/2023) Active Problems Problem Noted Date Diagnosed Date [...] as of this encounter (statuses as of 08/26/2023) Resolved Problems Problem Noted Date Diagnosed Date [...] as of this encounter (statuses as of 08/26/2023) Immunizations Name Administration Dates Next Due COVID-19 mRNA, LNP-s, No Pre serve, 2-Dose Series ([employer]) 10/19/2020,09/28/2020 Pneumococcal Conjugate Vacc, 13 Valent (Prevnar) [...] Sign Reading Time Taken Comments Blood Pressure 120/66 08/26/2023 3:34 PM EST Pulse 84 08/26/2023 3:34 PM EST Temperature - - Respiratory Rate - - Oxygen Saturation - - Inhaled Oxygen Concentration - - Weight - - Height - - Body Mass Index - - documented in this encounter Nursing Notes * Ariana Long LPN - 08/26/2023 3:49 PM EST Pt arrived for Procrit injection. Hgb 9.9. Administered in RAFAEL. Pt tolerated well. BP WNL. Pt to return in 2 weeks. Discharged in stable condition. documented in this encounter Plan of Treatment Upcoming Encounters Date Type Department Care Team (Late st Contact Info) Description 09/06/2023 12:40 PM EST Office Visit Family Practice [facility] 200 [facility] [place] [address] Luis Whalen, DO 200 [facility] [place] [address] 09/08/2023 8:00 AM EST Laboratory Lab Mobile Phlebotomy [facility] [address] [place] [address] Village, [facility] Mobile [place] [address] [place] [address] 09/08/2023 4:45 PM EST Anticoagulation Pharmacy Call Center WB [address] [place] [address] [facility] 58 60 [facility] [place] [address] 09/09/2023 3:30 PM EST Immunization/Injection Hematology/Oncology Treatment, [place] [facility] [address] Nurse, Med 4 200 [facility] [place], [place] [address] 09/21/2023 4:00 PM EST Office Visit Family Practice [facility] [address] [place] [address] Luis Whalen, 200 [facility] [place] [address] 09/30/2023 12:30 PM EST Office Visit [facility] 16 [place] [address] Wu Varma, 16 [place] [address] 11/04/2023 1:15 PM EST Office Visit Hematology/Oncology [facility] [address] [place], [place] [address] Juventino Sarah MD 200 [facility] [place], [place] [address] Health Maintenance Due Date Last Done Comments [...] Depression Screening 10/21/2023 10/21/2022 PTH 02/04/2024 02/03/2023, 070 05/2020, 06/03/2018, Additional history exists Phosphate 02/04/2024 02/03/2023, 070 05/2020, 08/11/2019, Additional history exists TSH 02/04/2024 02/03/2023, 08/2 02/2022, 12/11/2020, Additional history exists Diabetic Eye Exam 02/23/2024 02/22/2023, , 02/11/2021, Additional history exists Hgb 08/26/2024 08/26/2023, 02/2023, 08/11/2023, Additional history exists Pneumococcal Vaccine: [...] Action [place] [address] UNIT/ML inj 40,000 Units 40,000 Units, Subcutaneous, ONCE, On Sarah 08/26/23 at 1615, For 1 dose Given 08/26/2023 3:39 PM EST 40,000 Units Arm Left Upper documented in this encounter Advance Directives Documents on File Type Date Recorded Patient Cancer Program Coordinator Expl anation Power of Utilities Manager 11/28/2003 Care Teams Biblical Languages Professor Relationship Specialty Start Date End Date Luis Whalen DO [address] [facility] [address] PCP - General Family Medicine 11/09/18 documented as of this encounter
--- OUTSIDE RECORDS SUMMARY | 2023-11-12 10:43 | External Medical Summary | Summary of Care ---
Author Name Unknown Organization [facility] Address [address] [place] [address] Phone [phone] Care Team Providers Care Thermal Technician Name Role Phone FernandoLuis bai Primary Care Provider [phone] Reason for Visit * Reason Onset Date Comments Other 08/27/2023 Encounter Details Date Type Department Care Team (Late st Contact Info) Description 08/27/2023 Telephone Pharmacy Call Center [address] [place] [address] [facility] 58 [address] [place] [address] Other Allergies Active Allergy Reactions Criticality Noted Date [...] wound care protocol 22 g 3 03/03/20 Active Aspirin 81 MG Oral Tablet [...] encounter Miscellaneous Notes * Telephone Encounter - Alaina Rodriguez RPh - 08/27/2023 3:10 PM EST Refaxed 08/25 orders to [phone] as requested Alaina Rodriguez Rph, Pharm.D. Clinical Pharmacist [facility] ([facility]) (formerly Telepharmacy) [phone] 08/27/2023,3:11 PM * Telephone Encounter - Rupinder Saeed collar fuser - 08/27/2023 2:52 PM EST Caller's name: gulshan Preferred call back number(OFFICE NUMBER FOR ): [phone] Reason for call: gulshan from calling please fax inr for 12.6 to [phone] ofelia Thank you, Rupinder Saeed Gear Setter [facility] ([facility]PS) (Formerly Telepharmacy) 08/27/2023,2:52 PM * Telephone Encounter - Maren Warren OSA - 08/27/2023 1:36 PM EST Caller's name: Gulshan Preferred call back number(OFFICE NUMBER FOR ): [phone] Reason for call: Gulshan calling to ask [facility] to please fax orders for INR to [phone] as she saidthey havent received them from 08/25/23. Thank you, Maren Warren Gear Setter [facility] 08/27/2023,1:36 PM documented in this encounter Plan of Treatment Upcoming Encounters Date Type Department Care Team (Late st Contact Info) Description 09/06/2023 12:40 PM EST Office Visit Family [facility] 200 [facility] [place] [address] Luis Whalen, DO [address] [place] [address] 09/08/2023 8:00 AM EST Laboratory Lab Mobile Phlebotomy [facility] [address] [place] [address] Village, [facility] [place] [address] [place] [address] 09/08/2023 4:45 PM EST Anticoagulation Pharmacy Call Center WB [address] [facility] [place] [address] Ccps, [facility] 58 60 [facility] [place] [address] 09/09/2023 3:30 PM EST Immunization/Injection Hematology/Oncology Treatment, [place] [address] [place] [address] Nurse, Med 4 200 [facility] [place] [address] 09/21/2023 4:00 PM EST Office Visit Family Practice [facility] [place] 200 [facility] [place] [address] Luis Whalen, 200 [facility] [place] [address] 09/30/2023 12:30 PM EST Office Visit [facility] 16 [place] [address] Wu Varma, 16 [place] [address] 11/04/2023 1:15 PM EST Office Visit Hematology/Oncology [facility] [address] [place] [address] Juventino Sarah MD 200 [facility] [place] [address] Health Maintenance Due Date Last Done Comments [...] on File Type Date Recorded Patient Roller Skate Assembler Expl anation Power of Select Banker 11/28/2003 Care Teams Thermal Technician Relationship Specialty Start Date End Date Luis Whalen DO [address] [place] [address] PCP - General Family Medicine 11/09/18 documented as of this encounter
--- OUTSIDE RECORDS SUMMARY | 2023-11-12 10:44 | External Medical Summary | Summary of Care ---
Author Name Unknown Organization [facility] Address [address] [place] [address] Phone [phone] Care Team Providers Care Middle School Math Teacher Name Role Phone Luis Whalen DO Primary Care Provider [phone] Encounter Details Date Type Department Care Team (Late st Contact Info) Description 08/26/2023 Orders Only Lab Mobile Phlebotomy [facility] [address] [place], [place] [address] Luis Whalen DO [address] [place] [address] Kidney disease, chronic, stage IV (GFR 15-29 ml/min) ([facility])* Allergies Active Allergy Reactions Criticality Noted Date Comments Amoxicillin 10/21/2022 Sulfamethoxazole-Trimethop rim Rash 10/24/2016 Sulfamethoxazole 11/28/2020 Tetanus Toxoid Other (Please comment) Medium 02/17/2001 Large local reaction SHANIQUE MCMAHNO 02/17/2001 11:46 am pt has large reddened [...] Team (Late st Contact Info) Description 08/26/2023 3:30 PM EST Immunization/Injection Hematology/Oncology Treatment, [place] [address] [place] [address] Nurse, Med [address] [place] [address] 09/06/2023 12:40 PM EST Office Visit Family Practice [facility] [address] [place] [address] [address] Luis Whalen, DO [address] [place] [address] 09/08/2023 8:00 AM EST Laboratory Lab Mobile Phlebotomy [facility] [address] [place] [address] Village, [facility] [address] [place], [place] [address] 09/08/2023 4:45 PM EST Anticoagulation Pharmacy Call Center WB [address] [facility] [facility] [address] [facility], [facility] 58 60 [facility] [address] 09/09/2023 3:30 PM EST Immunization/Injection Hematology/Oncology Treatment, [place] [address] [place] [address] Nurse, Med [address] [place] [address] 09/21/2023 4:00 PM EST Office Visit Family Practice [facility] [place] [address] [place] [address] [address] Luis Whalen, DO 200 [facility] [place] [address] 09/30/2023 12:30 PM EST Office Visit [facility] 16 [place] [address] Wu Varma, DO 16 [place] [address] 11/04/2023 1:15 PM EST Office Visit Hematology/Oncology [facility] [place] [address] [place] [address] [address] Juventino Sarah MD [address] [place] [address] Pending Results Name Type Priority Associated Diagnoses Date /Time CBC WITH WBC DIFFERENTIAL Lab Routine Kidney disease, chronic, stage IV (GFR 15-29 ml/min) ([facility]) 08/26/2023 8:19 AM EST Scheduled Orders Name Type Priority Associated Diagnoses Orde r Schedule CBC WITH WBC DIFFERENTIAL Lab Routine Kidney disease, chronic, stage IV (GFR 15-29 ml/min) ([facility]) Expected: 08/26/2023, Expires: 08/26/2024 Health Maintenance Due Date Last Done Comments [...] 02/22/2023, , 02/11/2021, Additional history exists Hgb 08/25/2024 08/25/2023, 07/22, 07/29/2023, Additional history exists Pneumococcal Vaccine: 65+ Years [...] Documents on File Type Date Recorded Patient Heavy Duty Mechanic Expl anation Power of Shoe Repairer Helper 11/28/2003 Care Teams Middle School Math Teacher Relationship Specialty Start Date End Date Luis Whalen DO [address] [place] [address] PCP - General Family Medicine 11/09/18 documented as of this encounter
--- OUTSIDE RECORDS SUMMARY | 2023-11-12 10:44 | External Medical Summary ---
Author Name Unknown Address Unknown Organization [id number]:LABORATORY [facility] [address] [place] [address] Laboratory Report Ordering Provider Test Date Status MO WINTER 08/26/2023 08:19:41 Final Observation Date Value Abnormality Reference (Units ) Status WBC, Total 08/26/2023 08:19:41 5.65 4.00-10.8 0 (K/uL) Final RBC 08/26/2023 08:19:41 3.80 3.85-5.15 (M/uL) Final Hemoglobin 08/26/2023 08:19:41 9.9 Below low normal 12 .0-15.3 (g/dL) Final HCT 08/26/2023 08:19:41 32.8 Below low normal 36. 0-45.2 (%) Final MCV 08/26/2023 08:19:41 86.3 81.5-97.5 (fL) Final MCH 08/26/2023 08:19:41 26.1 27.0-34.0 (pg) Final MCHC 08/26/2023 08:19:41 30.2 32.0-36.0 (g/dL) Final RDW 08/26/2023 08:19:41 17.2 11.5-15.5 (%) Final Platelets 08/26/2023 08:19:41 137 Below low normal 140 -400 (K/uL) Final MPV 08/26/2023 08:19:41 11.1 6.6-11.1 ( fL) Final Performing Location [facility] [address] [place] [address]
--- OUTSIDE RECORDS SUMMARY | 2023-11-12 10:44 | External Medical Summary ---
Author Name Unknown Address Unknown Organization [facility] [address] [place] [address] Laboratory Report Ordering Provider Test Date Status MO WINTER 08/26/2023 08:19:41 Final Observation Date Value Abnormality Reference (Units ) Status SYNC LEUKOCYTES IN BLOOD BY AUTOMATED COUNT 08/26/2023 08:19:41 5.65 4.00-10.80 (K/uL) Final Segs 08/26/2023 08:19:41 56.3 40.0-75.0 (%) Final Lymphs % 08/26/2023 08:19:41 33.5 18.0-42.0 (%) Final Monos 08/26/2023 08:19:41 7.3 1.0-11.0 (%) Final Eosinophils 08/26/2023 08:19:41 2.5 0.0-6.0 (%) Final Basos 08/26/2023 08:19:41 0.4 0.0-2.0 (%) Final Absolute Segs 08/26/2023 08:19:41 3.19 1.80-7.70 (K/uL) Final Lymphs, absolute 08/26/2023 08:19:41 1.89 1.00-4.80 (K/ul) Final Monos, Abs 08/26/2023 08:19:41 0.41 0.00-1.10 (K/uL) Final Eos, Abs 08/26/2023 08:19:41 0.14 0.00-0.70 (K/uL) Final Basos, Abs 08/26/2023 08:19:41 0.02 0.00-0.20 (K/uL) Final Performing Location LABORATORY [facility] [address] [place] [address]
--- OUTSIDE RECORDS SUMMARY | 2023-11-12 10:44 | External Medical Summary | Summary of Care ---
Author Name Unknown Organization [facility] Address [address] [place] [address] Phone [phone] Care Team Providers Care Propeller Inspector Name Role Phone Koby Luis Dionne PEDRO Primary Care Provider [phone] Reason for Visit * Reason Comments Dosage Adjustment Via Phone (anticoag Cl inic) Encounter Details Date Type Department Care Team (Latest Contact Info) Description 08/25/2023 4:45 PM EST Anticoagulation Pharmacy Call Center [address] [place] [address] Ccps, [facility] 58 60 [place] [id number] Paroxysmal atrial fibrillation (HCC)*; H/O traumatic subdural [...] as of this encounter (statuses as of 08/25/2023) Medications Medication Sig Dispensed Refills Start Date [...] NEED CLARIFIED 100 g 12/18/19 22 Active PreserVision AREDS 2 Oral [...] or other meds). 90 Tablet 02/06/20 Active Mupirocin 2 % External Ointment [...] ON WED, , TH) 20 Tablet 1 08/24/20 Active Warfarin Sodium 2 MG Oral Tablet (Coumadin)Indications:Pa roxysmal atrial fibrillation (HCC) Take as directed by anticoagulation clinic (1 TAB BY MOUTH FOUR TIMES A WEEK ON WED, WED, WED, SAT) 16 Tablet 4 08/24/20 Active documented as of this encounter (statuses as of 08/25/2023) Active Problems Problem Noted Date Diagnosed Date [...] as of this encounter (statuses as of 08/25/2023) Resolved Problems Problem Noted Date Diagnosed Date [...] as of this encounter (statuses as of 08/25/2023) Immunizations Name Administration Dates Next Due COVID-19 [...] Alaina Rodriguez, [facility] - 08/25/2023 10:34 AM EST Medication Therapy Disease Management - Anticoagulation Patient: Radha Cardenas | : 1935 Intermediate/SNF Patient Anticoagulation Encounter Patient is a resident at: [facility] -- Fax sent to number listed above detailing plan of care below. Please notify clinic with any unusual brusing or bleeding, N/V/D, medication or diet changes or anymissed or extra doses of Coumadin. Subjective Patient-Reported Symptoms: Objective Current Warfarin Dose As of 08/25/2023 Warfarin maintenance plan: 1.5 mg (1 mg x 1.5) every Sun, Tue, Sarah; 2 mg (1 mg x 2) all other days INR Result As of 08/25/2023 INR goal: 2.0-3.0 INR used for dosin.6 (08/25/2023) Assessment & Plan Warfarin Plan As of 08/25/2023 Full warfarin instructions: 1.5 mg every Sun, Tue, Sarah; 2 mg all other days No change documented: Alaina Rodriguez RPh Next INR check: 09/08/2023 Repeat PT/INR in 2 week(s) Weekly dose: not changed Additional Dosing Information: Description Amiodarone decreased 12/10/2020 Alaina Rodriguez RPh Clinical Pharmacist 08/25/2023, 10:35 AM documented in this encounter Plan of Treatment Upcoming Encounters Date Type Department Care Team (Late st Contact Info) Description 08/26/2023 3:30 PM EST Immunization/Injecti on Hematology/Oncology Treatment, [place] [address] [facility] [place] [address] Nurse, Med 4 [address] [facility] [place] [address] 09/06/2023 12:40 PM EST Office Visit Family Practice [facility] [address] [facility] [place] [address] Luis Whalen, DO [address] [facility] [place] [address] 09/08/2023 8:00 AM EST Laboratory Lab Mobile Phlebotomy [facility] [address] [place] [address] [facility] Mobile [place] [address] [place] [address] 09/09/2023 3:30 PM EST Immunization/Injecti on Hematology/Oncology Treatment, [place] 200 [facility], [place] [address] Nurse, Med 4 200 [facility] [place], [place] [address] 09/21/2023 4:00 PM EST Office Visit Family Practice [facility] [address] [facility] [place] [address] Luis Whalen, DO [address] [facility] [place], [place] [address] 09/30/2023 12:30 PM EST Office Visit [facility] [address] [address] Wu Varma, DO 16 [place] [address] 11/04/2023 1:15 PM EST Office Visit Hematology/Oncology [facility] [address] [facility] [place], [place] [address] Juventino Sarah MD [address] [facility] [place], [place] [address] Health Maintenance Due Date Last Done Comments [...] 05/22/2020, Additional history exists HbA1c 08/06/2023 02/03/2023, 020 09/2022, 05/15/2022, Additional history exists Depression Screening [...] Documents on File Type Date Recorded Patient Pediatric Allergist Expl anation Power of Food And Beverage Coordinator 11/28/2003 Care Teams Propeller Inspector Relationship Specialty Start Date End Date Luis Whalen DO [address] [place] [address] PCP - General Family Medicine 11/09/18 documented as of this encounter"
--- OUTSIDE RECORDS SUMMARY | 2023-11-12 10:44 | External Medical Summary ---
Author Name Unknown Address Unknown Organization K0G:LABORATORY [facility] [address] [place] [address] Laboratory Report Ordering Provider Test Date Status FLACO ROMAN 08/25/2023 06:45:00 Final Observation Date Value Abnormality Reference (Units ) Status WBC, Total 08/25/2023 06:45:00 5.70 4.00-10.8 0 (K/uL) Final RBC 08/25/2023 06:45:00 3.57 3.85-5.15 (M/uL) Final Hemoglobin 08/25/2023 06:45:00 9.3 Below low normal 12 .0-15.3 (g/dL) Final HCT 08/25/2023 06:45:00 31.2 Below low normal 36. 0-45.2 (%) Final MCV 08/25/2023 06:45:00 87.4 81.5-97.5 (fL) Final MCH 08/25/2023 06:45:00 26.1 27.0-34.0 (pg) Final MCHC 08/25/2023 06:45:00 29.8 32.0-36.0 (g/dL) Final RDW 08/25/2023 06:45:00 17.2 11.5-15.5 (%) Final Platelets 08/25/2023 06:45:00 138 Below low normal 140 -400 (K/uL) Final MPV 08/25/2023 06:45:00 10.9 6.6-11.1 ( fL) Final Performing Location LABORATORY [facility] [address] [place] [address]
--- OUTSIDE RECORDS SUMMARY | 2023-11-12 10:44 | External Medical Summary ---
Author Name Unknown Address Unknown Organization K0G:[facility]ORY [place] [facility] [address] [place] [address] Laboratory Report Ordering Provider Test Date Status JENVITA 08/25/2023 06:45:00 Final Standing order for pt/inr. < br/>Please draw pt/inr every 1 to 4 weeks as requested
Results to [facility]

Warfarin Therapy
INR: 2.0-3.0 conventional anticoagulation
INR: 2.5-3.5 high intensity anticoagulation Observation Date Value Abnormality Reference (Units ) Status PT 08/25/2023 06:45:00 28.3 Above high normal 11 .6-15.2 (seconds) Final INR 08/25/2023 06:45:00 2.6 Above high normal 0. 8-1.2 Final Performing Location LAB[facility]ATORY [place] [facility] [address] [place] [address]
--- OUTSIDE RECORDS SUMMARY | 2023-11-12 10:44 | External Medical Summary | Summary of Care ---
Author Name Unknown Organization [facility] Address [address] [place] [address] Phone [phone] Care Team Providers Care Carousel Attendant Name Role Phone FernandoMoy bai Primary Care Provider [phone] Reason for Visit * Reason Onset Date Comments Medication Refill 08/23/2023 Encounter Details Date Type Department Care Team (Late st Contact Info) Description 08/23/2023 Refill Pharmacy Call Center [phone] [facility] [place] [address] [facility] [address] [place] [address] Paroxysmal atrial fibrillation (HCC) Allergies Active Allergy Reactions Criticality Noted Date Comments Amoxicillin 10/21/2022 Sulfamethoxazole-Trimethop rim Rash 10/24/2016 Sulfamethoxazole 11/28/2020 Tetanus Toxoid Other (Please comment) Medium 02/17/2001 Large local reaction TOMMY MCMAHONA Anne 02/17/2001 11:46 am pt has large reddened area , warm to touch on right Deltoid where she was given tetanus injection 1 week ago. Seen by Dr. Otero , felt it was areaction to tetanus, but gave a couple days of Tequin Tetracycline Rash Medium 06/28/2000 Trimethoprim 11/28/2020 documented as of this encounter (statuses as of 08/24/2023) Medications Medication Sig Dispensed Refills Start Date [...] 23 Active Loratadine 10 MG Oral Tablet (Claritin)Indications:N [...] SAT) 16 Tablet 4 08/24/20 23 Active Warfarin Sodium 2 MG Oral Tablet (Coumadin)Indications:P aroxysmal atrial fibrillation (HCC) 1 TAB BY MOUTH FOUR TIMES A WEEK ON MON, WED, FRI, SAT 12 Tablet 4 06/10/20 22 023 Discontin ued(Refil l) Warfarin Sodium 1 MG Oral Tablet (Coumadin)Indications:P aroxysmal atrial fibrillation (HCC) Take up to one and one-half tablets by mouth daily as directed by anticoagulation clinic 45 Tablet 1 06/30/20 23 023 Discontin ued(Refil l) documented as of this encounter (statuses as of 08/24/2023) Active Problems Problem Noted Date Diagnosed Date [...] as of this encounter (statuses as of 08/24/2023) Resolved Problems Problem Noted Date Diagnosed Date [...] as of this encounter (statuses as of 08/24/2023) Immunizations Name Administration Dates Next Due COVID-19 [...] encounter Miscellaneous Notes * Telephone Encounter - Gayle Denton [facility] - 08/24/2023 12:20 PM ESTSigned Prescriptions: Disp Refills Warfarin Sodium 1 MG Oral Tablet (Coumadin)20 Tab*1 Sig: Take upto one and one-half tablets by mouth daily as directed by anticoagulation clinic (THREE TIMES A WEEK ON SUN, TUES, THUR)Authorizing Provider: MOY HASSAN User: GAYLE DENTON Warfarin Sodium 2 MG Oral Tablet (Coumadin)16 Tab*4 Sig: Take as directed by anticoagulation clinic (1 TAB BY MOUTH FOUR TIMES A WEEK ON MON, WED, FRI, SAT)Authorizing Provider: MOY HASSAN User: GAYLE DENTON * Telephone Encounter - Gayle Denton RP - 08/24/2023 12:11 PM EST Current directions: 1.5 mg every Sun, Tue, Sarah; 2 mg all other days. Refills sent. Thanks, Gayle Denton, JourdanPh. Clinical Pharmacist [facility] [phone] ext [phone] 08/24/2023,12:20 PM * Telephone Encounter - Felicia Amezcua PHARM Tech - 08/23/2023 3:41 PM EST Did you pend patient's preferred pharmacy and medication before forwarding?yes Pharmacy: Pending Prescriptions: Disp Refills Warfarin Sodium 1 MG Oral Tablet (Coumadi*45 Tab*1 Sig: Take up to one and one-half tablets by mouth daily as directed by anticoagulation clinic Warfarin Sodium 2 MG Oral Tablet (Coumadi*12 Tab*4 Si TAB BY MOUTH FOUR TIMES A WEEK ON MON, WED, WED, SAT Last Visit: 05/17/2023 (in office), 10/29/2020 (telemedicine) Next Visit: 09/06/2023 If no future appointments scheduled, and last appointment is greater than a year ago, please schedule patient for a follow-up appointment Last date the medication was ordered: 08/15/2023 Is this request for a controlled substance?No [...] Team (Late st Contact Info) Description 08/25/2023 8:00 AM EST Laboratory Lab Mobile Phlebotomy [facility] [address] [place] [address] [facility] [address] [place] [address] 08/25/2023 4:45 PM EST Anticoagulation Pharmacy Call Center [phone] [facility] [place] [address] [facility], [facility] [address] [facility] [place] [address] 08/26/2023 3:30 PM EST Immunization/Injection Hematology/Oncology Treatment, [place] [address] [facility] [address] Nurse, Med [address] [place] [address] 09/06/2023 12:40 PM EST Office Visit [facility] [address] [place] [address] Moy Hassan, DO [address] [place] [address] 09/08/2023 8:00 AM EST Laboratory Lab Mobile Phlebotomy [facility] [address] [facility] [place] [address] [facility] [address] [place] [address] 09/09/2023 3:30 PM EST Immunization/Injection Hematology[facility]Oncology Treatment, [place] [address] [facility] [address] Nurse, Med [address] [place] [address] 09/21/2023 4:00 PM EST Office Visit [facility] [address] [place] [address] Moy Hassan, DO [address] [place] [address] 09/30/2023 12:30 PM EST Office Visit [facility] [address] [place] [address] Wu Varma DO [address] [place] [address] 11/04/2023 1:15 PM EST Office Visit Hematology/Oncology Lia Mabry [place] 200 [facility] [place] [address] Juventino Sarah MD 200 [facility] [place] [address] Health Maintenance Due Date Last Done Comments [...] 02/22/2023, , 02/11/2021, Additional history exists Hgb 08/11/2024 08/11/2023, 1105/2023, 07/15/2023, Additional history exists Pneumococcal Vaccine: 65+ Years [...] encounter Visit Diagnoses Diagnosis Paroxysmal atrial fibrillation (HCC) Atrial fibrillation documented in this encounter Advance Directives Documents on File Type Date Recorded Patient Well Service Floorperson Expl anation Power of Remote Computer Terminal Operator 11/28/2003 Care Teams Carousel Attendant Relationship Specialty Start Date End Date Moy Hassan DO [address] [place] [address] PCP - General Family Medicine 11/09/18 documented as of this encounter
--- OUTSIDE RECORDS SUMMARY | 2023-11-12 10:44 | External Medical Summary ---
Author Name Unknown Address Unknown Organization [facility] [address] [place] [address] Laboratory Report Ordering Provider Test Date Status FLACO ROMAN 08/25/2023 06:45:00 Final Observation Date Value Abnormality Reference (Units ) Status SYNC LEUKOCYTES IN BLOOD BY AUTOMATED COUNT 08/25/2023 06:45:00 5.70 4.00-10.80 (K/uL) Final Segs 08/25/2023 06:45:00 49.1 40.0-75.0 (%) Final Lymphs % 08/25/2023 06:45:00 39.1 18.0-42.0 (%) Final Monos 08/25/2023 06:45:00 8.6 1.0-11.0 (%) Final Eosinophils 08/25/2023 06:45:00 2.8 0.0-6.0 (%) Final Basos 08/25/2023 06:45:00 0.4 0.0-2.0 (%) Final Absolute Segs 08/25/2023 06:45:00 2.80 1.80-7.70 (K/uL) Final Lymphs, absolute 08/25/2023 06:45:00 2.23 1.00-4.80 (K/ul) Final Monos, Abs 08/25/2023 06:45:00 0.49 0.00-1.10 (K/uL) Final Eos, Abs 08/25/2023 06:45:00 0.16 0.00-0.70 (K/uL) Final Basos, Abs 08/25/2023 06:45:00 0.02 0.00-0.20 (K/uL) Final Performing Location LABORATORY [facility] [address] [place] [address]
--- NOTE | 2023-11-12 11:54 | Hospitalist Progress Note ---
Date of Service November 12, 2023 Assessment & Plan (1) Acute on chronic heart failure with preserved ejection fraction (HFpEF): (2) Supratherapeutic INR: (3) Atrial fibrillation, controlled: (4) HTN (hypertension): (5) HLD (hyperlipidemia): (6) CKD (chronic kidney disease): (7) T2DM (type 2 diabetes mellitus): (8) Hypothyroidism: Plan: 87-year-old female with PMH of T2DM, hypothyroidism, HLD, paroxysmal A-fib, HTN, chronic kidney disease stage IV, anemia due to chronic kidney disease, MRSA infection, depression, traumatic subdural hematoma, COVID, ambulatory dysfunction presented from the [facility] 11/11 with acute onset of shortness of breath where she was reportedly having O2 sats in the 70s. She is being managed for the following: Acute on chronic HFpEF h/o paroxysmal Atrial Fibrillation Supratherapeutic INR HTN HLD Came in with acute shortness of breath. Admitting troponin negative, admitting EKG with no acute ST or T changes. Last echo reviewed in outpatient showing EF of 60-65% from 2 years ago, repeat here Admitting CXR with pulmonary edema and vascular congestion. Admitting BNP 670, received IV Lasix in the ED, repeat echo pending. At presentation, patient afebrile, respiratory viral panel negative, MRSA negative, WBC WNL. Continue with diuresis as able, monitor I's and O's, monitor replete electrolytes. Cardiology on board, appreciate recommendation. Plan to hold further diuresis for now. Continue home cardiac medications including amiodarone, aspirin, metoprolol, rosuvastatin Admitting INR of 5.8, up trended, received vitamin K p.o. on 11/09 3 AM, repeat PT/INR in the evening today. Follow-up PT/INR in AM. Concern for UTI/history of recurrent UTI: Patient started on Rocephin 11/11, continue, await urine culture. Patient noted to be confused whenever she had UTI in the past. Acute metabolic encephalopathy: Daughter at presentation reports the patient has increased issues with word finding, mentation whenever she has infection such as UTI Worse within the past 1 to 2 days prior to arrival Obtain blood cultures x 2 Placed on IV ceftriaxone prophylactically, can DC if UA is negative or titrate for PO antibiotics DM type II: Last A1c 6.6 on 09/06/2023. ISS with Accu-Cheks ACHS. HH/DM diet allowed CKD: Stable, stg 3, creatinine is down 1.2, appears to be baseline 1.5-1.6 Hypothyroidism: Chronic, stable, cont levothyroxine DVT ppx: teds, scds Lines: 2 PIV CODE: DNR/DNI FEN/GI: HH/DM diet Dispo: PT/OT, CM to assist with DC plan. Admission and Anticipated Discharge Date Admission Date: November 11, 2023 Subjective Patient was seen and examined at bedside. Patient was lying in bed, on 2 L oxygen via nasal cannula, not in any acute distress, resting comfortably. Though oriented x 2, patient seems confused, denies cough or chest pain or abdominal pain. Patient states She is at [facility] now and would like to be discharged today. Physical Exam Physical Exam: General: awake, alert, no apparent distress, thin elderly white female Head: Normocephalic, atraumatic ENT: PERRL, EOMI, no pharyngeal exudate, mucous membranes moist Chest: + bb Crackles , on 2L, no wheeze or Rales Cardiac: Regular rate and rhythm, + systolic murmur, normal peripheral pulses, good capillary refill, no edema in peripheral extremities Abdominal: NABS x 4 quadrants, soft, nondistended, nontender to palpation, no rebound or guarding : Velásquez catheter inserted, not yet any urine in Velásquez bag Extremities: Normal inspection, no peripheral edema or erythema, calfs nontender to palpation Psych: Normal mood and affect Neuro: AAO x 3, strength intact bilaterally and rated 4/5, no motor deficits, speech is slow but clear, no peripheral sensory deficits Results & Data Results & Data Vital Signs (Past 12 Hours) Vital Signs Temp Pulse Pulse Resp BP Pulse Ox O2 Del Method 11/12/23 08:28 36.6 C 77 20 130/63 95 Nasal Cannula 11/12/23 07:00 74 11/12/23 02:39 36.6 C 78 18 116/55 L 93 Nasal Cannula 11/12/23 02:07 83 O2 Flow Rate 11/12/23 08:28 2 11/12/23 07:00 11/12/23 02:39 11/12/23 02:07 (4) HTN (hypertension) Hypertension type: essential hypertension Qualified Code(s): I10 - Essential (primary) hypertension (5) HLD (hyperlipidemia) Hyperlipidemia type: unspecified Qualified Code(s): E78.5 - Hyperlipidemia, unspecified (7) T2DM (type 2 diabetes mellitus) Diabetes mellitus skilled nursing insulin use: without adjunct faculty for medical terminology use Diabetes mellitus complication status: with kidney complications Diabetes mellitus compl ication detail: with chronic kidney disease Chronic kidney disease stage: stage 3 (moderate) Qualified Code(s): E11.22 - Type 2 diabetes mellitus with diabetic chronic kidney disease; N18.3 - Chronic kidney disease, stage 3 (moderate) (8) Hypothyroidism Hypothyroidism type: unspecified Qualified Code(s): E03.9 - Hypothyroidism, unspecified
[2023-11-12 15:11] LABS: Prothrombin Time 57.9 Seconds (9.0-12.0)
[2023-11-12 15:21] LABS: INR 5.9 (0.9-1.1)
[2023-11-12] MEDS: cefTRIAXone SODIUM 1,000 MG in DEXTROSE 5 % MINI-B 50 ML IV SCH (16:53)
[2023-11-12] MEDS: metroNIDAZOLE 0.75% TOPICAL GEL 45 GM TUBE TOP SCH (20:35)
[2023-11-13 06:33] LABS: BUN Creatinine Ratio 24.4 (10-20); Calcium 8.4 mg/dl (8.6-10.3); Creatinine Clr Calc Pharmacy 25.9 ml/min; Est GFR (African American) 43.3 ml/min; Est GFR (Non-African American) 37.4 ml/min; Magnesium 1.9 mg/dl (1.7-2.4); Phosphorus 3.5 mg/dl (2.5-4.9)
[2023-11-13 06:57] LABS: INR 4.2 (0.9-1.1); Prothrombin Time 41.8 Seconds (9.0-12.0)
[2023-11-13 07:05] LABS: Hematocrit (blood only) 27.6 % (37.0-47.0); Mean Corpuscular Hemoglobin 25.2 pg (25.0-34.0); Mean Corpuscular Volume 87.1 fL (80.0-100.0); Mean Platelet Volume 11.4 fL (9.4-12.4); Platelet Count 87 K/uL (130-400); RDW Coefficient of Variation 18.7 % (11.5-14.5); RDW Standard Deviation 58.6 fL (36.4-46.3); Red Blood Count 3.17 M/uL (4.20-5.40); White Blood Count 6.45 K/ul (4.8-10.8)
--- NOTE | 2023-11-13 12:22 | Cardiology Progress Note ---
Date of Service November 13, 2023 Assessment & Plan (1) Acute on chronic heart failure with preserved ejection fraction (HFpEF): (2) History of recurrent UTIs: (3) Paroxysmal A-fib: (4) Altered mental status: Plan Patient admitted for hypoxia with pulm edema on chest xray, and altered mental status which she has experienced frequently in the past with recurrent UTI's. Urine and blood cultures negative, however, mental status improved with administration of antibiotics. Pulm congestion/hypoxia on arrival consistent with acute on chronic HFpEF. Treated with one dose IV lasix in ER with clinical improvement. Appears euvolemic to mildly hypovolemic today. Renal function improved. Echocardiogram this admission demonstrating preserved LV systolic function with mild aortic valve sclerosis. Small left pleural effusion. Will hold additional diuretic therapy for now with repeat basic metabolic panel in a.m. Consider addition of gentle diuresis 11/14/2023 pending review of a.m. labs. Patient is not chronically treated with diuretics in the outpatient setting. Monitor fluid balance, daily weight, GFR, and electrolytes. Supplement potassium to maintain 4.0-5.0 and magnesium > 2.0. Remains in sinus rhythm on telemetry with history of paroxysmal atrial fibrillation. Continue amiodarone and metoprolol. Warfarin remains on hold due to supratherapeutic INR. Received 2.5 mg of vitamin K 11/12/2023. Repeat PT/INR in AM. DVT proph - INR elevated. Coumadin on hold. I spent a total of 45 minutes on the date of service in preparation, delivery, and documentation of the care provided to this patient, excluding any time spent in the performance of separately billed services. Admission and Anticipated Discharge Date Admission Date: November 11, 2023 Subjective Patient seen and examined at the bedside. Feeling well from a cardiovascular perspective. INR trending down to 4.2 today. Creatinine trending down from 1.35-1.27. Patient states "I do not have a heart problem". Lasix on hold due to evidence of hypovolemia per examination 11/12/2023. Telemetry reveals sinus rhythm in the 70s and 80s. Isolated, short salvos of PSVT at 124 bpm recorded overnight. Patient denies palpitations, lightheadedness, or dizziness. No orthopnea, PND, or lower extremity edema. Review of Systems Review of Systems: All systems reviewed & are unremarkable except as noted in Subjective Physical Exam Constitutional: + ill appearing; no acute distress Respiratory: no respiratory distress, no labored breathing and no retractions Auscultation: + diminished lung sounds (Left base); no crackles, no rales, no rhonchi and no wheezes Cardiovascular: Rate/Rhythm: regular rate and regular rhythm Heart Sounds: normal S1, normal S2 and + murmur (1/6 systolic ejection murmur heard best at the right second intercostal spa) Vessels: radial pulses present; no JVD and no carotid bruit Extremities: no edema Gastrointestinal (Abdomen): Inspection/Auscultation: normal bowel sounds; abdomen not distended Percussion/Palpation: abdomen soft; abdomen nontender, no guarding and abdomen not rigid Neurologic: CN's II-XI intact bilaterally and moves all extremities; no focal motor deficits Psychiatric: A+Ox3, euthymic affect Results & Data Vital Signs (Past 12 Hours) Vital Signs Temp Pulse Pulse Resp BP Pulse Ox O2 Del Method 11/13/23 11:19 36.7 C 79 19 117/54 L 95 Nasal Cannula 11/13/23 07:25 36.9 C 84 20 135/57 L 94 Nasal Cannula 11/13/23 07:00 79 11/13/23 03:04 37.1 C 84 18 127/71 92 Nasal Cannula 11/13/23 01:00 79 O2 Flow Rate 11/13/23 11:19 2 11/13/23 07:25 2 11/13/23 07:00 11/13/23 03:04 2 11/13/23 01:00 Laboratory Results Coagulation 11/12/23 11/13/23 Range/Units 13:48 05:32 PT 57.9 H 41.8 H (9.0-12.0) Seconds CBC 11/13/23 Range/Units 05:32 WBC 6.45 (4.8-10.8) K/ul RBC 3.17 L (4.20-5.40) M/uL Hgb 8.0 L (12.0-16.0) g/dl Hct 27.6 L (37.0-47.0) % Plt Count 87 L (130-400) K/uL Comprehensive Metabolic Panel 11/13/23 Range/Units 05:32 Sodium 143 (136-145) mmol/L Potassium 4.0 (3.5-5.1) mmol/L Chloride 108 H (98-107) mmol/L Carbon Dioxide 28 (21-32) mmol/L BUN 31 H (6-23) mg/dl Creatinine 1.27 H (0.6-1.2) mg/dl Glucose 71 (70-99(Fasting)) mg/dl Calcium 8.4 L (8.6-10.3) mg/dl Intake and Output 11/12/23 11/13/23 11/13/23 22:59 06:59 14:59 Intake Total 150 / 475 75 / 475 Output Total 75 / 550 75 / 550 Balance 75 / -75 0 / -75 Intake: IV 50 / 50 cefTRIAXone SODIUM 1,000 mg In 50 / 50 Dextrose 5 % Mini-B 50 ml @ 100 mls/hr IV Q24H [facility] Rx#: [id number] Oral 100 / 425 75 / 425 Output: Urine 75 / 475 Other 75 / 75 Other: # Unmeasured Voids 1 (4) Altered mental status Altered mental status type: unspecified Qualified Code(s): R41.82 - Altered mental status, unspecified
--- NOTE | 2023-11-13 16:12 | Hospitalist Progress Note ---
Date of Service November 13, 2023 Assessment & Plan (1) Acute on chronic heart failure with preserved ejection fraction (HFpEF): (2) Supratherapeutic INR: (3) Atrial fibrillation, controlled: (4) HTN (hypertension): (5) HLD (hyperlipidemia): (6) CKD (chronic kidney disease): (7) T2DM (type 2 diabetes mellitus): (8) Hypothyroidism: Plan: 87-year-old female with PMH of T2DM, hypothyroidism, HLD, paroxysmal A-fib, HTN, chronic kidney disease stage IV, anemia due to chronic kidney disease, MRSA infection, depression, traumatic subdural hematoma, COVID, ambulatory dysfunction presented from the [facility] 11/11 with acute onset of shortness of breath where she was reportedly having O2 sats in the 70s. She is being managed for the following: Acute on chronic HFpEF h/o paroxysmal Atrial Fibrillation Supratherapeutic INR HTN HLD Came in with acute shortness of breath. Admitting troponin negative, admitting EKG with no acute ST or T changes. Last echo reviewed in outpatient showing EF of 60-65% from 2 years ago, repeat here Admitting CXR with pulmonary edema and vascular congestion. Admitting BNP 670, received IV Lasix in the ED, repeat echo pending. At presentation, patient afebrile, respiratory viral panel negative, MRSA negative, WBC WNL. Continue with diuresis as able, monitor I's and O's, monitor replete electrolytes. Cardiology on board, appreciate recommendation. Plan to hold further diuresis for now. Continue home cardiac medications including amiodarone, aspirin, metoprolol, rosuvastatin Admitting INR of 5.8, up trended, received vitamin K p.o. on 11/09 3 AM, repeat PT/INR in the evening today. Follow-up PT/INR in AM. Concern for UTI/history of recurrent UTI: Patient started on Rocephin 11/11, continue, await urine culture. Patient noted to be confused whenever she had UTI in the past. Acute metabolic encephalopathy: Daughter at presentation reports the patient has increased issues with word finding, mentation whenever she has infection such as UTI Worse within the past 1 to 2 days prior to arrival Obtain blood cultures x 2 Placed on IV ceftriaxone prophylactically, can DC if UA is negative or titrate for PO antibiotics DM type II: Last A1c 6.6 on 09/06/2023. ISS with Accu-Cheks ACHS. HH/DM diet allowed CKD: Stable, stg 3, creatinine is down 1.2, appears to be baseline 1.5-1.6 Hypothyroidism: Chronic, stable, cont levothyroxine DVT ppx: teds, scds Lines: 2 PIV CODE: DNR/DNI FEN/GI: HH/DM diet Dispo: PT/OT, CM to assist with DC plan. Admission and Anticipated Discharge Date Admission Date: November 11, 2023 Subjective Patient was seen and examined at bedside. Patient was lying in bed, on 2 L oxygen via nasal cannula, not in any acute distress, resting comfortably. Patient denies cough or chest pain or abdominal pain. Per RN, pt eating ok, moving bowels ok,no issues overnight. Physical Exam Physical Exam: General: awake, alert, no apparent distress, thin elderly white female Head: Normocephalic, atraumatic ENT: PERRL, EOMI, no pharyngeal exudate, mucous membranes moist Chest: + bb Crackles , on 2L, no wheeze or Rales Cardiac: Regular rate and rhythm, + systolic murmur, normal peripheral pulses, good capillary refill, no edema in peripheral extremities Abdominal: NABS x 4 quadrants, soft, nondistended, nontender to palpation, no rebound or guarding : Velásquez catheter inserted, not yet any urine in Velásquez bag Extremities: Normal inspection, no peripheral edema or erythema, calfs nontender to palpation Psych: Normal mood and affect Neuro: AAO x 3, strength intact bilaterally and rated 4/5, no motor deficits, speech is slow but clear, no peripheral sensory deficits Results & Data Results & Data Vital Signs (Past 12 Hours) Vital Signs Temp Pulse Pulse Resp BP Pulse Ox O2 Del Method 11/13/23 15:00 36.7 C 86 17 119/59 L 93 Nasal Cannula 11/13/23 11:19 36.7 C 79 19 117/54 L 95 Nasal Cannula 11/13/23 07:25 36.9 C 84 20 135/57 L 94 Nasal Cannula 11/13/23 07:00 79 O2 Flow Rate 11/13/23 15:00 2 11/13/23 11:19 2 11/13/23 07:25 2 11/13/23 07:00 (4) HTN (hypertension) Hypertension type: essential hypertension Qualified Code(s): I10 - Essential (primary) hypertension (5) HLD (hyperlipidemia) Hyperlipidemia type: unspecified Qualified Code(s): E78.5 - Hyperlipidemia, unspecified (7) T2DM (type 2 diabetes mellitus) Diabetes mellitus rn long term care insulin use: without skilled nursing use Diabetes mellitus complication status: with kidney complications Diabetes mellitus complication detail: with chronic kidney disease Chronic kidney disease stage: stage 3 (moderate) Qualified Code(s): E11.22 - Type 2 diabetes mellitus with diabetic chronic kidney disease; N18.3 - Chronic kidney disease, stage 3 (moderate) (8) Hypothyroidism Hypothyroidism type: unspecified Qualified Code(s): E03.9 - Hypothyroidism, unspecified
[2023-11-14 06:00] LABS: Hematocrit (blood only) 26.5 % (37.0-47.0); Hemoglobin 7.6 g/dl (12.0-16.0); Mean Corpuscular Hemoglobin 24.9 pg (25.0-34.0); Mean Corpuscular Hgb Conc 28.7 g/dL (32.0-36.0); Mean Corpuscular Volume 86.9 fL (80.0-100.0); Mean Platelet Volume 11.2 fL (9.4-12.4); Platelet Count 89 K/uL (130-400); RDW Coefficient of Variation 18.6 % (11.5-14.5); RDW Standard Deviation 58.4 fL (36.4-46.3); Red Blood Count 3.05 M/uL (4.20-5.40); White Blood Count 6.97 K/ul (4.8-10.8)
[2023-11-14 06:17] LABS: BUN Creatinine Ratio 31.3 (10-20); Calcium 8.5 mg/dl (8.6-10.3); Creatinine Clr Calc Pharmacy 29.4 ml/min; Est GFR (African American) 50.4 ml/min; Est GFR (Non-African American) 43.5 ml/min
[2023-11-14 06:22] LABS: Prothrombin Time 21.2 Seconds (9.0-12.0)
--- NOTE | 2023-11-14 09:24 | XRay Report ---
XR chest 1V portable HISTORY: Shortness of breath. Follow up pulmonary edema. COMPARISON: Chest 11/11/2023. FINDINGS: There are low lung volumes. No pneumothorax. Bilateral pleural effusions and bibasilar dens ities persist. The heart remains enlarged. Mild interstitial pulmonary edema again noted patchy right lung airspace opacities are also similar to the prior study. There is also a 1.8 cm nodular opacity within the right upper lobe. IMPRESSION: 1. Cardiomegaly with mild pulmonary edema and small bilateral pleural effusions. This is similar to t he prior study. 2. Patchy bibasilar densities persist. 3. A 1.8 cm nodular density within the right upper lobe likely representing the pulmonary edema or pn eumonia. ACT 112: Negative or not required by law. Electronically signed by: Donato Duval M.D. 11/14/2023 9:23 AM
--- NOTE | 2023-11-14 11:58 | CT Scan Report ---
CT chest diagnostic wo con CT DOSE: 334.5 mGy.cm HISTORY: Abnormal chest x-ray. rul nodule characterization/?insterstitial dz TECHNIQUE: Multiaxial CT images of the chest were performed without contrast. A dose lowering techni que was utilized adhering to the principles of ALARA. COMPARISON: Chest 12/13/2023. FINDINGS: The central airways are patent. No pneumothorax. There are small bilateral pleural effusion s most pronounced on the left. Multifocal irregular and patchy groundglass airspace opacities with in terstitial thickening. This favors an atypical pneumonia. Pulmonary edema could also have a similar a ppearance. Consolidation within the base of the bilateral lower lobes favors compressive atelectasis from the pleural effusions. No acute fractures. The heart is borderline enlarged. There are dense gwendolyn ral annulus calcifications and moderate coronary artery calcifications. Moderate calcified plaque wit hin the normal caliber thoracic aorta. Normal esophagus. Mild mediastinal lymphadenopathy. This may b e reactive. There are low lung volumes. Small amount of ascites within the upper abdomen. Splenomegal y has progressed. IMPRESSION: 1. Multifocal irregular and patchy groundglass airspace opacities with interstitial thickening. This favors an atypical pneumonia. Pulmonary edema could also have a similar appearance. 2. Small bilateral pleural effusions, left greater than right. 3. Mild mediastinal lymphadenopathy. This may be reactive. 4. Small amount of ascites within the upper abdomen with splenomegaly again noted. ACT 112: Negative or not required by law. Electronically signed by: Donato Duval M.D. 11/14/2023 11:56 AM
--- NOTE | 2023-11-14 13:08 | Cardiology Progress Note ---
Date of Service November 14, 2023 Assessment & Plan (1) Atypical pneumonia: (2) Acute on chronic heart failure with preserved ejection fraction (HFpEF): (3) History of recurrent UTIs: (4) Paroxysmal A-fib: (5) Altered mental status: Plan Patient admitted for hypoxia with pulm edema on chest xray, and altered mental status which she has experienced frequently in the past with recurrent UTI's. Urine and blood cultures negative, however, mental status improved with adminis tration of antibiotics. Physical exam suggest intravascular volume depletion. CT with evidence of atypical pneumonia. Continue antibiotics per direction of internal medicine. Hold diuretic therapy. Echocardiogram this admission demonstrating preserved LV systolic function with mild aortic valve sclerosis. Monitor fluid balance, daily weight, GFR, and electrolytes. Supplement potassium to maintain 4.0-5.0 and magnesium > 2.0. Remains in sinus rhythm on telemetry with history of paroxysmal atrial fibrillation. Continue amiodarone and metoprolol. Restart warfarin today. Repeat PT/INR in AM. DVT proph -chronic anticoagulation with warfarin. I spent a total of 45 minutes on the date of service in preparation, delivery, and documentation of the care provided to this patient, excluding any time spent in the performance of separately billed services. Admission and Anticipated Discharge Date Admission Date: November 11, 2023 Subjective Patient seen examined the bedside. Remains hypoxic. Requiring 3 L supplemental oxygen. Mucous membranes dry. CT chest demonstrating multifocal irregular and patchy groundglass airspace opacities with interstitial thickening. Findings favor atypical pneumonia. INR trending down to 2.0 today. Review of Systems Review of Systems: All systems reviewed & are unremarkable except as noted in Subjective Physical Exam Constitutional: + ill appearing; no acute distress Respiratory: no respiratory distress, no labored breathing and no retractions Auscultation: + diminished lung sounds (Left base); no crackles, no rales, no rhonchi and no wheezes Cardiovascular: Rate/Rhythm: regular rate and regular rhythm Heart Sounds: normal S1, normal S2 and + murmur (1/6 systolic ejection murmur heard best at the right second intercostal spa) Vessels: radial pulses present; no JVD and no carotid bruit Extremities: no edema Gastrointestinal (Abdomen): Inspection/Auscultation: normal bowel sounds; abdomen not distended Percussion/Palpation: abdomen soft; abdomen nontender, no guarding and abdomen not rigid Neurologic: CN's II-XI intact bilaterally and moves all extremities; no focal motor deficits Psychiatric: A+Ox3, euthymic affect Results & Data Vital Signs (Past 12 Hours) Vital Signs Temp Pulse Pulse Resp BP Pulse Ox O2 Del Method 11/14/23 12:12 36.6 C 78 17 128/88 92 Nasal Cannula 11/14/23 08:13 36.6 C 81 22 130/52 L 92 Nasal Cannula 11/14/23 07:00 75 11/14/23 03:37 36.6 C 77 22 124/57 L 95 Nasal Cannula 11/14/23 02:54 82 O2 Flow Rate 11/14/23 12:12 3.0 11/14/23 08:13 3 11/14/23 07:00 11/14/23 03:37 3 11/14/23 02:54 Laboratory Results Coagulation 11/14/23 Range/Units 05:16 PT 21.2 H (9.0-12.0) Seconds CBC 11/14/23 Range/Units 05:16 WBC 6.97 (4.8-10.8) K/ul RBC 3.05 L (4.20-5.40) M/uL Hgb 7.6 L (12.0-16.0) g/dl Hct 26.5 L (37.0-47.0) % Plt Count 89 L (130-400) K/uL Comprehensive Metabolic Panel 11/14/23 Range/Units 05:16 Sodium 142 (136-145) mmol/L Potassium 4.0 (3.5-5.1) mmol/L Chloride 108 H (98-107) mmol/L Carbon Dioxide 28 (21-32) mmol/L BUN 35 H (6-23) mg/dl Creatinine 1.12 (0.6-1.2) mg/dl Glucose 119 H (70-99(Fasting)) mg/dl Calcium 8.5 L (8.6-10.3) mg/dl Intake and Output 11/13/23 11/14/23 11/14/23 22:59 06:59 14:59 Intake Total 525 / 525 Output Total 450 / 751 301 / 751 Balance 75 / -226 -301 / -226 Intake: IV 50 / 50 cefTRIAXone SODIUM 1,000 mg In 50 / 50 Dextrose 5 % Mini-B 50 ml @ 100 mls/hr IV Q24H NO Rx#: [id number] Oral 475 / 475 Output: Urine 300 / 300 Urine Amount (Catheter) 150 / 450 300 / 450 Velásquez/Indwelling 150 / 450 300 / 450 # Bowel Movements Other: Other Intake Source sips Weight 56.6 kg Weight Measurement Method Built in [facility] (5) Altered mental status Altered mental status type: unspecified Qualified Code(s): R41.82 - Altered mental status, unspecified
[2023-11-14] MEDS: AZITHROMYCIN 250 MG TAB PO ONE (14:14)
--- NOTE | 2023-11-14 14:34 | Hospitalist Progress Note ---
Date of Service November 14, 2023 Assessment & Plan (1) Acute on chronic heart failure with preserved ejection fraction (HFpEF): (2) Supratherapeutic INR: (3) Atrial fibrillation, controlled: (4) HTN (hypertension): (5) HLD (hyperlipidemia): (6) CKD (chronic kidney disease): (7) T2DM (type 2 diabetes mellitus): (8) Hypothyroidism: Plan: 87-year-old female with PMH of T2DM, hypothyroidism, HLD, paroxysmal A-fib, HTN, chronic kidney disease stage IV, anemia due to chronic kidney disease, MRSA infection, depression, traumatic subdural hematoma, COVID, ambulatory dysfunction presented from the [facility] 11/11 with acute onset of shortness of breath where she was reportedly having O2 sats in the 70s. She is being managed for the following: Acute on chronic HFpEF h/o paroxysmal Atrial Fibrillation Supratherapeutic INR HTN HLD Came in with acute shortness of breath. Admitting troponin negative, admitting EKG with no acute ST or T changes. Last echo reviewed in outpatient showing EF of 60-65% from 2 years ago ECHO this admission w/ EF of 60-65%, No regional wall motion abnormality. Admitting CXR with pulmonary edema and vascular congestion. Admitting BNP 670, received IV Lasix in the ED. At presentation, patient afebrile, respiratory viral panel negative, MRSA negative, WBC WNL. Continue with diuresis as able, monitor I's and O's, monitor replete electrolytes. Cardiology on board, appreciate recommendation. Holding diuresis now. Continue home cardiac medications including amiodarone, aspirin, metoprolol, rosuvastatin Admitting INR of 5.8, up trended, received vitamin K p.o. on 11/09 3 AM, now INR therapeutic -- resume coumadin 11/14. Follow-up PT/INR in AM. Concern for UTI/history of recurrent UTI: Patient started on Rocephin 11/11, continue, Urince Cx contaminated. Patient noted to be confused whenever she had UTI in the past. Atypical Pneumonia: pt w/ continued slow increase in O2 requirement despite being clinically euvolemic and hence Chest imaging repeated 11/14 which showed multifocal pneumonia/atypical pneumonia. Will continue rocephin 11/11 and will add azithromycin 11/14. If w/ no improvement consider Pulm. Repeat imaging in 6 weeks to document resolution of pneumonia. Acute metabolic encephalopathy: Daughter at presentation reports the patient has increased issues with word finding, mentation whenever she has infection such as UTI Worse within the past 1 to 2 days prior to arrival Expect to improve w/ resolution of acute issues. Delirium precaution. DM type II: Last A1c 6.6 on 09/06/2023. ISS with Accu-Cheks ACHS. HH/DM diet allowed CKD: Stable, stg 3, creatinine is down 1.2, appears to be baseline 1.5-1.6 Hypothyroidism: Chronic, stable, cont levothyroxine DVT ppx: teds, scds Lines: 2 PIV CODE: DNR/DNI FEN/GI: HH/DM diet Dispo: PT/OT, CM to assist with DC plan. Called Janeth (pt's dtr) for update, left voicemail to call us back and ask for dr reynolds. Admission and Anticipated Discharge Date Admission Date: November 11, 2023 Subjective Patient was seen and examined at bedside. Patient was lying in bed, on 3 L oxygen via nasal cannula, not in any acute distress, resting comfortably. Patient denies cough or chest pain or abdominal pain. Per RN, pt eating ok, moving bowels ok, no issues overnight. Pt is weak and one person assist. Patient with increased oxygen need today, CXR done which noted nodular density in the right upper lobe. Then CT scan done which noted multifocal opacities suggestive of atypical pneumonia. Physical Exam Physical Exam: General: awake, alert, no apparent distress, thin elderly white female Head: Normocephalic, atraumatic ENT: PERRL, EOMI, no pharyngeal exudate, mucous membranes moist Chest: + bb Crackles , on 2L, no wheeze or Rales Cardiac: Regular rate and rhythm, + systolic murmur, normal peripheral pulses, good capillary refill, no edema in peripheral extremities Abdominal: NABS x 4 quadrants, soft, nondistended, nontender to palpation, no rebound or guarding : Velásquez catheter inserted, not yet any urine in Velásquez bag Extremities: Normal inspection, no peripheral edema or erythema, calfs nontender to palpation Psych: Normal mood and affect Neuro: AAO x 3, strength intact bilaterally and rated 4/5, no motor deficits, speech is slow but clear, no peripheral sensory deficits Results & Data Results & Data Vital Signs (Past 12 Hours) Vital Signs Temp Pulse Pulse Resp BP Pulse Ox O2 Del Method 11/14/23 12:12 36.6 C 78 17 128/88 92 Nasal Cannula 11/14/23 08:13 36.6 C 81 22 130/52 L 92 Nasal Cannula 11/14/23 07:00 75 11/14/23 03:37 36.6 C 77 22 124/57 L 95 Nasal Cannula 11/14/23 02:54 82 O2 Flow Rate 11/14/23 12:12 3.0 11/14/23 08:13 3 11/14/23 07:00 11/14/23 03:37 3 11/14/23 02:54 (4) HTN (hypertension) Hypertension type: essential hypertension Qualified Code(s): I10 - Essential (primary) hypertension (5) HLD (hyperlipidemia) Hyperlipidemia type: unspecified Qualified Code(s): E78.5 - Hyperlipidemia, unspecified (7) T2DM (type 2 diabetes mellitus) Diabetes mellitus skilled nursing insulin use: without buttermaker use Diabetes mellitus complication status: with kidney complications Diabetes mellitus complication detail: with chronic kidney disease Chronic kidney disease stage: stage 3 (moderate) Qualified Code(s): E11.22 - Type 2 diabetes mellitus with diabetic chronic kidney disease; N18.3 - Chronic kidney disease, stage 3 (moderate) (8) Hypothyroidism Hypothyroidism type: unspecified Qualified Code(s): E03.9 - Hypothyroidism, unspecified
[2023-11-14] MEDS: WARFARIN SOD 0.5 MG TAB PO SCH (16:59)
[2023-11-15 07:09] LABS: Hematocrit (blood only) 27.4 % (37.0-47.0); Hemoglobin 7.9 g/dl (12.0-16.0); Mean Corpuscular Hemoglobin 25.2 pg (25.0-34.0); Mean Corpuscular Hgb Conc 28.8 g/dL (32.0-36.0); Mean Corpuscular Volume 87.5 fL (80.0-100.0); Mean Platelet Volume 11.6 fL (9.4-12.4); Platelet Count 91 K/uL (130-400); RDW Coefficient of Variation 18.3 % (11.5-14.5); RDW Standard Deviation 57.2 fL (36.4-46.3); Red Blood Count 3.13 M/uL (4.20-5.40); White Blood Count 5.94 K/ul (4.8-10.8)
[2023-11-15 07:28] LABS: BUN Creatinine Ratio 32.1 (10-20); Calcium 8.6 mg/dl (8.6-10.3); Creatinine Clr Calc Pharmacy 25.1 ml/min; Est GFR (African American) 41.7 ml/min; Phosphorus 3.6 mg/dl (2.5-4.9); Potassium 4.4 mmol/L (3.5-5.1)
[2023-11-15 07:34] LABS: INR 1.9 (0.9-1.1); Prothrombin Time 19.6 Seconds (9.0-12.0)
[2023-11-15] MEDS: AZITHROMYCIN 250 MG TAB PO SCH (08:54)
[2023-11-15] MEDS ORDERED: MICONAZOLE NITRATE POWDER 85 GM EXT PRN (08:56)
--- NOTE | 2023-11-15 13:42 | Electrocardiogram Report ---
Test Reason : Blood Pressure : / mmHG Vent. Rate : 074 BPM Atrial Rate : 074 BPM P-R Int : 160 ms QRS Dur : 102 ms QT Int : 408 ms P-R-T Axes : 051 -53 066 degrees QTc Int : 452 ms Normal sinus rhythm Left anterior fascicular block Abnormal ECG When compared with ECG of 11-NOV-2023 11:28, No significant change was found Confirmed by Mich iRco ([id number]) on 11/15/2023 1:42:19 PM Referred By: REFERRED SELF Confirmed By:Mich Rico
--- NOTE | 2023-11-15 14:38 | Cardiology Progress Note ---
Date of Service November 15, 2023 Assessment & Plan (1) Atypical pneumonia: (2) Acute on chronic heart failure with preserved ejection fraction (HFpEF): (3) History of recurrent UTIs: (4) Paroxysmal A-fib: (5) Altered mental status: Plan Patient admitted for hypoxia with pulm edema on chest xray, and altered mental status which she has experienced frequently in the past with recurrent UTI's. Urine and blood cultures negative, however, mental status improved with adminis tration of antibiotics. Physical exam suggest intravascular volume depletion. CT with evidence of atypical pneumonia. Continue antibiotics per direction of internal medicine. Additional Diuretics on hold due to intravascular volume. Echocardiogram this admission demonstrating preserved LV systolic function with mild aortic valve sclerosis. Monitor fluid balance, daily weight, GFR, and electrolytes. Supplement potassium to maintain 4.0-5.0 and magnesium > 2.0. Remains in sinus rhythm on telemetry with history of paroxysmal atrial fibrillation. Continue amiodarone and metoprolol. PT/INR 1.9. Warfarin resumed DVT proph -chronic anticoagulation with warfarin. Stable cardiac status. Will sign off. 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 Case discussed with Dr. Kelley I spent a total of 30 minutes on the date of service in preparation, delivery, and documentation of the care provided to this patient, excluding any time spent in the performance of separately billed services. Nighat Love PA-C Department of Cardiology, [facility] This chart was completed in part utilizing Speech Voice Recognition Software. Grammatical errors, random word insertions, pronoun errors, and incomplete sentences are an occasional consequence of this system due to software limitations, ambient noise, and hardware issues. Any formal questions or concerns about the content, text, or information contained within the body of this dictation should be directly addressed to the provider for clarification. Admission and Anticipated Discharge Date Admission Date: November 11, 2023 Supervising Physician Co-Signing Physician Notes I have reviewed the advance practitioner's documentation, and I agree with, and take responsibility for the plan of care. Patient seen and examined at the bedside. Respiratory status improved, however, continues to require 3 L supplemental oxygen. Denies chest pain, orthopnea, or PND. Telemetry reveals sinus rhythm in the 70s. Requesting discharge when possible. PE: VSS. Gen: NAD, AAO x3. Heart: Regular rhythm: Normal S1-S2. No murmur. Lungs: Scant crackles at the bases, no rhonchi or wheeze. Extremities: No edema. A/P: 88-year-old female appears compensated to hypovolemic from a heart failure perspective. No need for additional diuretic therapy at this time. Antibiotics per internal medicine. Continue metoprolol, warfarin, and rosuvastatin as ordered. No further inpatient cardiac testing or intervention recommended at this time. Cardiology will sign off. Please call with additional concerns/questions. I spent a total of 20 minutes on the date of service in preparation, delivery, and documentation of the care provided to this patient, excluding any time spent in the performance of separately billed services. Subjective Patient resting in bed comfortably. Reports she is feeling better. SOB improving. Still on supplemental O2. No chest pain. cough improving. Denies acute complaints today. Review of Systems Review of Systems: All systems reviewed & are unremarkable except as noted in HPI & below Physical Exam Constitutional: WD/WN, vitals as above + cachectic; no acute distress Respiratory: no labored breathing Auscultation: + diminished lung sounds Cardiovascular: Rate/Rhythm: regular rate and regular rhythm Heart Sounds: normal S1, normal S2 and + murmur (II/) Vessels: + JVD Extremities: no edema Gastrointestinal (Abdomen): normal bowel sounds, soft, nontender, no hepatosplenomegaly Skin: no rashes, warm and dry Results & Data Vital Signs (Past 12 Hours) Vital Signs Temp Pulse Pulse Resp BP Pulse Ox O2 Del Method 11/15/23 11:04 36.7 C 78 19 124/69 95 Nasal Cannula 11/15/23 08:45 78 123/58 L 11/15/23 08:00 72 11/15/23 08:00 Nasal Cannula 11/15/23 07:07 36.7 C 74 17 121/63 97 Nasal Cannula 11/15/23 04:35 75 11/15/23 03:00 36.6 C 74 31 H 103/67 96 Nasal Cannula O2 Flow Rate 11/15/23 11:04 3 11/15/23 08:45 11/15/23 08:00 11/15/23 08:00 3 11/15/23 07:07 2 11/15/23 04:35 11/15/23 03:00 Laboratory Results Coagulation 11/15/23 Range/Units 06:15 PT 19.6 H (9.0-12.0) Seconds CBC 11/15/23 Range/Units 06:15 WBC 5.94 (4.8-10.8) K/ul RBC 3.13 L (4.20-5.40) M/uL Hgb 7.9 L (12.0-16.0) g/dl Hct 27.4 L (37.0-47.0) % Plt Count 91 L (130-400) K/uL Comprehensive Metabolic Panel 11/15/23 Range/Units 06:15 Sodium 142 (136-145) mmol/L Potassium 4.4 (3.5-5.1) mmol/L Chloride 107 (98-107) mmol/L Carbon Dioxide 30 (21-32) mmol/L BUN 42 H (6-23) mg/dl Creatinine 1.31 H (0.6-1.2) mg/dl Glucose 142 H (70-99(Fasting)) mg/dl Calcium 8.6 (8.6-10.3) mg/dl Intake and Output 11/14/23 11/15/23 11/15/23 22:59 06:59 14:59 Intake Total 50 / 50 Output Total 50 / 51 1 / 51 100 / 100 Balance 0 / -1 -1 / -1 -100 / -100 Intake: IV 50 / 50 cefTRIAXone SODIUM 1,000 mg In 50 / 50 Dextrose 5 % Mini-B 50 ml @ 100 mls/hr IV Q24H [facility] Rx#: [id number] Output: Urine Amount (Catheter) 50 / 50 100 / 100 External 100 / 100 Velásquez/Indwelling 50 / 50 # Bowel Movements Other: # Unmeasured Voids 1 Weight 57.21 kg Weight Measurement Method Built in [facility] Diagnostic Findings telemetry reviewed: NSR in the 70-80's. No arrhythmias. Chest CT report reviewed dated Nov 14, 2023: IMPRESSION: 1. Multifocal irregular and patchy groundglass airspace opacities with interstitial thickening. This favors an atypical pneumonia. Pulmonary edema could also have a similar appearance. 2. Small bilateral pleural effusions, left greater than right. 3. Mild mediastinal lymphadenopathy. This may be reactive. 4. Small amount of ascites within the upper abdomen with splenomegaly again noted. Medications Administered Current Inpatient Medications Acetaminophen (Acetaminophen 325 Mg Tab) 650 mg PO Q4H PRN PRN Reason: Moderate Pain (Scale 4, 5, 6) Stop: 12/11/23 17:02 Amiodarone HCl (Amiodarone 200 Mg Tab) 200 mg PO QAM [facility] Stop: 12/12/23 08:59 Last Admin: 11/15/23 08:55 Dose: 200 mg Artificial Tears (Artificial Tears) 1 drops OP Q2HWA PRN PRN Reason: Dryness Stop: 12/11/23 17:56 Aspirin (Aspirin 81 Mg Ectab) 81 mg PO [id number]@0900 [facility] Stop: 12/12/23 08:59 Last Admin: 11/15/23 08:54 Dose: 81 mg Azithromycin (Azithromycin 250 Mg Tab) [facility] [place] Stop: 11/22/23 08:59 Last Admin: 11/15/23 08:54 Dose: 500 mg Cyanocobalamin (Cyanocobalamin (B-12) 500 Mcg Tablet) 1,000 mcg PO DAILY [facility] Stop: 12/12/23 08:59 Last Admin: 11/15/23 08:53 Dose: 1,000 mcg Dextrose (Dextrose 50% 50 Ml Syringe) 25 - 50 ml IV UD PRN; Protocol PRN Reason: Hypoglycemia Protocol Stop: 12/11/23 17:02 Diclofenac Sodium (Diclofenac Sod 1% Gel 100 Gm Tube) 4 gm EXT Q12H PRN; Protocol PRN Reason: joint pain Stop: 12/11/23 17:20 Docusate Sodium (Docusate Sodium 100 Mg Cap) 100 mg PO HS [facility] Stop: 12/11/23 20:59 Last Admin: 11/14/23 20:20 Dose: 100 mg Ferrous Sulfate (Ferrous Sulfate 325 Mg Tab) 325 mg PO QAM [facility] Stop: 12/12/23 08:59 Last Admin: 11/15/23 08:54 Dose: 325 mg Furosemide (Furosemide 40 Mg/4 Ml Vial) 40 mg IV QAM [facility] Stop: 12/12/23 08:59 Last Admin: 11/12/23 09:19 Dose: Not Given Glucagon (Glucagon For Inj 1 Mg Vial) 1 mg SQ UD PRN; Protocol PRN Reason: Hypoglycemia Protocol Stop: 12/11/23 17:02 Glucose (Glucose 10 Tab/Tube) 4 - 8 tab PO UD PRN; Protocol PRN Reason: Hypoglycemia Treatment Stop: 12/11/23 17:02 Glucose (Glucose 40% Gel 15 Gm Tube) 15 - 30 gm PO UD PRN; Protocol PRN Reason: Hypoglycemia Protocol Stop: 12/11/23 17:02 Ceftriaxone Sodium 1,000 mg/ (Dextrose) 50 mls @ 100 mls/hr IV Q24H [facility]; Protocol Stop: 11/17/23 15:59 Last Infusion: 11/14/23 17:31 Dose: Infused Insulin Aspart (Insulin Aspart Per Unit Charge) 0 units SC ACHS [facility] Stop: 12/11/23 17:02 Last Admin: 11/15/23 12:21 Dose: 3 units Levothyroxine Sodium (Levothyroxine Sodium 112 Mcg Tablet) 112 mcg PO DAILYBB [facility] Stop: 12/12/23 06:29 Last Admin: 11/15/23 06:22 Dose: 112 mcg Melatonin (Melatonin 3 Mg Tab) 3 mg PO HS [facility] Stop: 12/11/23 20:59 Last Admin: 11/14/23 20:20 Dose: 3 mg Metoprolol Tartrate (Metoprolol Tartrate 25 Mg Tab) 12.5 mg PO BID [facility] Stop: 12/11/23 20:59 Last Admin: 11/15/23 08:53 Dose: 12.5 mg Metronidazole (Metronidazole 0.75% Topical Gel 45 Gm Tube) 1 appln TOP BID [facility] Stop: 11/22/23 20:59 Last Admin: 11/15/23 08:55 Dose: 1 appln Miconazole Nitrate (Miconazole Nitrate Powder 85 Gm) 1 appln EXT PRN PRN PRN Reason: Affected Skin Folds Stop: 12/15/23 08:55 Miscellaneous (Carbohydrates For Hypoglycemia ) 15 - 30 gm PO UD PRN PRN Reason: Hypoglycemia Protocol Stop: 12/11/23 17:02 Last Admin: 11/13/23 16:55 Dose: 15 gm Multivitamins/Minerals (Cerovite Adv Formula Tab) 1 tab PO BID [facility] Stop: 12/11/23 20:59 Last Admin: 11/15/23 08:55 Dose: 1 tab Mupirocin (Mupirocin 2% Oint 22 Gm Tube) 1 appln TOP HS [facility] Stop: 12/11/23 20:59 Last Admin: 11/14/23 20:21 Dose: 1 appln Ondansetron HCl (Ondansetron Inj 2 Mg/Ml 2 Ml Vial) 4 mg IV Q4H PRN PRN Reason: Nausea And Vomiting Stop: 12/11/23 17:02 Pantoprazole Sodium (Pantoprazole 40 Mg Tab) 40 mg PO [facility] Stop: 12/12/23 08:59 Last Admin: 11/15/23 08:55 Dose: 40 mg Psyllium Hydrophilic Mucilloid (Psyllium Or Guar Gum Fiber Powder Packet) 1 pkt PO DAILY [facility] Stop: 12/12/23 08:59 Last Admin: 11/15/23 08:53 Dose: 1 pkt Rosuvastatin Calcium (Rosuvastatin Calcium 10 Mg Tab) 10 mg PO [facility] Stop: 12/11/23 20:59 Last Admin: 11/14/23 20:20 Dose: 10 mg Saccharomyces Boulardii (Saccharomyces Boulardii 250 Mg Cap) 250 mg PO DAILY [facility] Stop: 12/12/23 08:59 Last Admin: 11/15/23 08:55 Dose: 250 mg Sertraline HCl (Sertraline Hcl 50 Mg Tablet) 25 mg PO [facility] Stop: 12/12/23 08:59 Last Admin: 11/15/23 08:54 Dose: 25 mg Tobramycin/Dexamethasone (Tobramycin/Dexamethasone Oph Oint 3.5 Gm Tube) 1 appln OPB [facility] Stop: 12/11/23 20:59 Last Admin: 11/14/23 20:20 Dose: 1 appln Vibegron (Vibegron 75 Mg Tab) 75 mg PO DAILY [facility] Stop: 12/12/23 08:59 Last Admin: 11/15/23 08:55 Dose: 75 mg Vitamin D (Cholecalciferol 25 Mcg (1000 Units) Tab) 50 mcg PO [facility] Stop: 12/12/23 08:59 Last Admin: 11/15/23 08:59 Dose: 50 mcg Warfarin Sodium (Warfarin Sod 0.5 Mg Tab) 1.5 mg PO [email or web address]@1600 [facility] Stop: 12/14/23 15:59 Last Admin: 11/14/23 16:59 Dose: 1.5 mg Warfarin Sodium (Warfarin Sod 2 Mg Tab) 2 mg PO WeFr@1600 [facility] Stop: 12/17/23 15:59 (5) Altered mental status Altered mental status type: unspecified Qualified Code(s): R41.82 - Altered mental status, unspecified
--- NOTE | 2023-11-15 14:55 | Hospitalist Progress Note ---
Date of Service November 15, 2023 Assessment & Plan (1) Acute on chronic heart failure with preserved ejection fraction (HFpEF): (2) Supratherapeutic INR: (3) Atrial fibrillation, controlled: (4) HTN (hypertension): (5) HLD (hyperlipidemia): (6) CKD (chronic kidney disease): (7) T2DM (type 2 diabetes mellitus): (8) Hypothyroidism: Plan: 87-year-old female with PMH of T2DM, hypothyroidism, HLD, paroxysmal A-fib, HTN, chronic kidney disease stage IV, anemia due to chronic kidney disease, MRSA infection, depression, traumatic subdural hematoma, COVID, ambulatory dysfunction presented from the [facility] 11/11 with acute onset of shortness of breath where she was reportedly having O2 sats in the 70s. She is being managed for the following: Acute on chronic HFpEF - ruled out. h/o paroxysmal Atrial Fibrillation Supratherapeutic INR HTN HLD Came in with acute shortness of breath. Admitting troponin negative, admitting EKG with no acute ST or T changes. Last echo reviewed in outpatient showing EF of 60-65% from 2 years ago ECHO this admission w/ EF of 60-65%, No regional wall motion abnormality. Admitting CXR with pulmonary edema and vascular congestion. Admitting BNP 670, received IV Lasix in the ED. At presentation, patient afebrile, respiratory viral panel negative, MRSA negative, WBC WNL. Cards evaled, no concern for HF at this time, no diuresis. Continue home cardiac medications including amiodarone, aspirin, metoprolol, rosuvastatin Admitting INR of 5.8, up trended, received vitamin K p.o. on 11/09 3 AM, now INR therapeutic -- resumed coumadin 11/14. Follow-up PT/INR in AM. Concern for UTI/history of recurrent UTI: Patient started on Rocephin 11/11, continue, Urince Cx contaminated. Patient noted to be confused whenever she had UTI in the past. Atypical Pneumonia: Chest imaging repeated 11/14 which showed multifocal pneumonia/atypical pneumonia. Will continue rocephin 11/11 and added azithromycin 11/14. If w/ no improvement consider Pulm. Repeat imaging in 6 weeks to document resolution of pneumonia. Acute metabolic encephalopathy: Daughter at presentation reports the patient has increased issues with word finding, mentation whenever she has infection such as UTI Worse within the past 1 to 2 days prior to arrival Expect to improve w/ resolution of acute issues. Delirium precaution. DM type II: Last A1c 6.6 on 09/06/2023. ISS with Accu-Cheks ACHS. HH/DM diet allowed CKD: Stable, stg 3, stable, appears to be baseline 1.5-1.6 Hypothyroidism: Chronic, stable, cont levothyroxine DVT ppx: teds, scds Lines: 2 PIV CODE: DNR/DNI FEN/GI: HH/DM diet Dispo: PT/OT, CM to assist with DC plan. can dc to snf. Updated Janeth (pt's dtr) 11/14, answered all her questions. updated regarding pneumonia diagnosis. She voiced understanding and was agreeable to plan of care. Admission and Anticipated Discharge Date Admission Date: November 11, 2023 Subjective Patient was seen and examined at bedside. Patient was lying in bed, on 3 L oxygen via nasal cannula, not in any acute distress, resting comfortably. Patient denies cough or chest pain or abdominal pain. Per RN, pt eating ok, moving bowels ok, no issues overnight. Pt is weak and one person assist. Physical Exam Physical Exam: General: awake, alert, no apparent distress, thin elderly white female Head: Normocephalic, atraumatic ENT: PERRL, EOMI, no pharyngeal exudate, mucous membranes moist Chest: + bb Crackles , on 3L, no wheeze or Rales Cardiac: Regular rate and rhythm, + systolic murmur, normal peripheral pulses, good capillary refill, no edema in peripheral extremities Abdominal: NABS x 4 quadrants, soft, nondistended, nontender to palpation, no rebound or guarding : Velásquez catheter inserted, not yet any urine in Velásquez bag Extremities: Normal inspection, no peripheral edema or erythema, calfs nontender to palpation Psych: Normal mood and affect Neuro: AAO x 3, strength intact bilaterally and rated 4/5, no motor deficits, speech is slow but clear, no peripheral sensory deficits Results & Data Results & Data Vital Signs (Past 12 Hours) Vital Signs Temp Pulse Pulse Resp BP Pulse Ox O2 Del Method 11/15/23 11:04 36.7 C 78 19 124/69 95 Nasal Cannula 11/15/23 08:45 78 123/58 L 11/15/23 08:00 72 11/15/23 08:00 Nasal Cannula 11/15/23 07:07 36.7 C 74 17 121/63 97 Nasal Cannula 11/15/23 04:35 75 11/15/23 03:00 36.6 C 74 31 H 103/67 96 Nasal Cannula O2 Flow Rate 11/15/23 11:04 3 11/15/23 08:45 11/15/23 08:00 11/15/23 08:00 3 11/15/23 07:07 2 11/15/23 04:35 11/15/23 03:00 (4) HTN (hypertension) Hypertension type: essential hypertension Qualified Code(s): I10 - Essential (primary) hypertension (5) HLD (hyperlipidemia) Hyperlipidemia type: unspecified Qualified Code(s): E78.5 - Hyperlipidemia, unspecified (7) T2DM (type 2 diabetes mellitus) 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
[2023-11-16] MEDS: ACETAMINOPHEN 325 MG TAB PO PRN (03:53)
[2023-11-16 06:37] LABS: BUN Creatinine Ratio 38.2 (10-20); Calcium 8.6 mg/dl (8.6-10.3); Creatinine Clr Calc Pharmacy 29.9 ml/min; Est GFR (African American) 51.5 ml/min; Est GFR (Non-African American) 44.5 ml/min; Potassium 4.2 mmol/L (3.5-5.1)
[2023-11-16 06:54] LABS: INR 1.9 (0.9-1.1); Prothrombin Time 20.2 Seconds (9.0-12.0)
--- NOTE | 2023-11-16 10:40 | Electrocardiogram Report ---
Test Reason : Blood Pressure : / mmHG Vent. Rate : 074 BPM Atrial Rate : 074 BPM P-R Int : 144 ms QRS Dur : 104 ms QT Int : 410 ms P-R-T Axes : 011 -57 055 degrees QTc Int : 455 ms Normal sinus rhythm Left axis deviation Incomplete right bundle branch block Abnormal ECG When compared with ECG of 15-NOV-2023 05:22, No significant change was found Confirmed by Mich Rico ([id number]) on 11/16/2023 10:40:40 AM Referred By: REFERRED SELF Confirmed By:Mich Rico
--- NOTE | 2023-11-16 13:48 | Hospitalist Progress Note ---
Date of Service November 16, 2023 Assessment & Plan (1) Acute on chronic heart failure with preserved ejection fraction (HFpEF): (2) Supratherapeutic INR: (3) Atrial fibrillation, controlled: (4) HTN (hypertension): (5) HLD (hyperlipidemia): (6) CKD (chronic kidney disease): (7) T2DM (type 2 diabetes mellitus): (8) Hypothyroidism: Plan: 87-year-old female with PMH of T2DM, hypothyroidism, HLD, paroxysmal A-fib, HTN, chronic kidney disease stage IV, anemia due to chronic kidney disease, MRSA infection, depression, traumatic subdural hematoma, COVID, ambulatory dysfunction presented from the [facility] 11/11 with acute onset of shortness of breath where she was reportedly having O2 sats in the 70s. She is being managed for the following: Acute on chronic HFpEF - ruled out. h/o paroxysmal Atrial Fibrillation Supratherapeutic INR HTN HLD Came in with acute shortness of breath. Admitting troponin negative, admitting EKG with no acute ST or T changes. Last echo reviewed in outpatient showing EF of 60-65% from 2 years ago ECHO this admission w/ EF of 60-65%, No regional wall motion abnormality. Admitting CXR with pulmonary edema and vascular congestion. Admitting BNP 670, received IV Lasix in the ED. At presentation, patient afebrile, respiratory viral panel negative, MRSA negative, WBC WNL. Cards evaled, no concern for HF at this time, no diuresis. Continue home cardiac medications including amiodarone, aspirin, metoprolol, rosuvastatin Admitting INR of 5.8, up trended, received vitamin K p.o. on 11/09 3 AM, now INR therapeutic -- resumed coumadin 11/14. Follow-up PT/INR in AM. Concern for UTI/history of recurrent UTI: Patient started on Rocephin 11/11, continue, Urince Cx contaminated. Patient noted to be confused whenever she had UTI in the past. Atypical Pneumonia: Chest imaging repeated 11/14 which showed multifocal pneumonia/atypical pneumonia. Will continue rocephin 11/11 and added azithromycin 11/14. If w/ no improvement consider Pulm. Repeat imaging in 6 weeks to document resolution of pneumonia. Acute metabolic encephalopathy: Daughter at presentation reports the patient has increased issues with word finding, mentation whenever she has infection such as UTI Worse within the past 1 to 2 days prior to arrival Expect to improve w/ resolution of acute issues. Delirium precaution. Improving. DM type II: Last A1c 6.6 on 09/06/2023. ISS with Accu-Cheks ACHS. HH/DM diet allowed CKD: Stable, stg 3, stable, appears to be baseline 1.5-1.6 Hypothyroidism: Chronic, stable, cont levothyroxine DVT ppx: teds, scds Lines: 2 PIV CODE: DNR/DNI FEN/GI: HH/DM diet Dispo: PT/OT, CM to assist with DC plan. can dc to snf. Updated Janeth (pt's dtr) 11/14, answered all her questions. updated regarding pneumonia diagnosis. She voiced understanding and was agreeable to plan of care. Admission and Anticipated Discharge Date Admission Date: November 11, 2023 Subjective Patient was seen and examined at bedside. Patient was lying in bed, on 2 L oxygen via nasal cannula, not in any acute distress, resting comfortably. Patient denies cough or chest pain or abdominal pain. Per RN, pt eating ok, moving bowels ok, no issues overnight. Physical Exam Physical Exam: General: awake, alert, no apparent distress, thin elderly white female Head: Normocephalic, atraumatic ENT: PERRL, EOMI, no pharyngeal exudate, mucous membranes moist Chest: + bb Crackles , on 2L, no wheeze or Rales Cardiac: Regular rate and rhythm, + systolic murmur, normal peripheral pulses, good capillary refill, no edema in peripheral extremities Abdominal: NABS x 4 quadrants, soft, nondistended, nontender to palpation, no rebound or guarding : Velásquez catheter inserted, not yet any urine in Velásquez bag Extremities: Normal inspection, no peripheral edema or erythema, calfs nontender to palpation Psych: Normal mood and affect Neuro: AAO x 3, strength intact bilaterally and rated 4/5, no motor deficits, speech is slow but clear, no peripheral sensory deficits Results & Data Results & Data Vital Signs (Past 12 Hours) Vital Signs Temp Pulse Pulse Resp BP Pulse Ox O2 Del Method 11/16/23 10:50 36.7 C 70 20 99/45 L 91 Nasal Cannula 11/16/23 08:00 Nasal Cannula 11/16/23 07:28 36.7 C 75 17 130/60 94 Oxymask 11/16/23 02:26 78 11/16/23 02:22 36.6 C 79 22 123/63 90 Nasal Cannula O2 Flow Rate 11/16/23 10:50 2 11/16/23 08:00 2 11/16/23 07:28 2 11/16/23 02:26 11/16/23 02:22 2 (4) HTN (hypertension) Hypertension type: essential hypertension Qualified Code(s): I10 - Essential (primary) hypertension (5) HLD (hyperlipidemia) Hyperlipidemia type: unspecified Qualified Code(s): E78.5 - Hyperlipidemia, unspecified (7) T2DM (type 2 diabetes mellitus) 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
[2023-11-17 08:45] LABS: INR 2.3 (0.9-1.1)
[2023-11-17 10:52] LABS: Calcium 8.3 mg/dl (8.6-10.3); Potassium 4.3 mmol/L (3.5-5.1)
[2023-11-17 10:58] LABS: BUN Creatinine Ratio 38.2 (10-20); Creatinine Clr Calc Pharmacy 29.9 ml/min; Est GFR (African American) 51.5 ml/min; Est GFR (Non-African American) 44.5 ml/min
--- NOTE | 2023-11-17 11:43 | Discharge Summary ---
Date of Service November 17, 2023 Admission HPI Per Admitting Provider This is an 87 yo F with PMHx of type 2 diabetes, hypothyroidism, hyperlipidemia, paroxysmal atrial fibrillation, hypertension, chronic kidney disease stage IV, anemia due to chronic kidney disease, history of MRSA i nfection, history of depression, history of traumatic subdural hematoma, history of COVID, history of ambulatory dysfunction from [facility] who presents to the hospital with acute onset of shortness of breath where she was reportedly having O2 sats in the 70s. She has been placed on supplemental O2 here 2 L and sats at 94% now. Patient notes that she has had issues with coughing up sputum, states that she has had intermittent nausea, occurring more than once per day. She denies any previous issues with aspiration. Daughter at bedside supports the history due to her slightly altered mental status, daughter notes that they had speech therapy scheduled to see her at [facility] however has not occurred yet. Whenever she has previous UTIs she has some mental fog with difficulty word finding, slowed speech. She reports that her mouth is significantly dry, and is requesting a drink. She tolerates thin liquids without any difficulty at bedside. There is concern on CXR for pulmonary vascular congestion and elevated BNP suggestive of CHF exacerbation, she was administered Lasix in the ER. Also noted that patient's INR is 5.8 on admission. Velásquez catheter has been requested to be inserted, has history of difficult insertion in the past, nursing has not yet obtained UA or urine culture. Obtain blood culture and start prophylactic ceftriaxone IV. Admission Exam Per Admitting Provider General: awake, alert, no apparent distress, thin elderly white female, BMI of 24.8 Head: Normocephalic, atraumatic ENT: PERRL, EOMI, no pharyngeal exudate, mucous membranes appear very dry Chest: + Crackles heard throughout, on 2L via NC with O2 sats 94%, no wheeze or Rales Cardiac: Regular rate and rhythm, + systolic murmur, no JVD, normal peripheral pulses, good capillary refill, no edema in peripheral extremities Abdominal: NABS x 4 quadrants, soft, nondistended, nontender to palpation, no rebound or guarding : Velásquez catheter inserted, not yet any urine in Velásquez bag Extremities: Normal inspection, no peripheral edema or erythema, calfs nontender to palpation Psych: Normal mood and affect Neuro: AAO x 3, strength intact bilaterally and rated 4/5, no motor deficits, speech is slow but clear, no peripheral sensory deficits Principal Diagnosis Acute on chronic HFpEF, ruled out Supratherapeutic INR Atypical pneumonia Acute metabolic encephalopathy Discharge Exam General: awake, alert, no apparent distress, thin elderly white female Head: Normocephalic, atraumatic ENT: PERRL, EOMI, no pharyngeal exudate, mucous membranes moist Chest: + bb Crackles improving, on 2L, no wheeze or Rales Cardiac: Regular rate and rhythm, + systolic murmur, normal peripheral pulses, good capillary refill, no edema in peripheral extremities Abdominal: NABS x 4 quadrants, soft, nondistended, nontender to palpation, no rebound or guarding Extremities: Normal inspection, no peripheral edema or erythema, calfs nontender to palpation Psych: Normal mood and affect Neuro: AAO x 3, strength intact bilaterally and rated 4/5, no motor deficits, speech is slow but clear, no peripheral sensory deficits Discharge Data Allergies Allergy/AdvReac Type Severity Reaction Status Date / Time amoxicillin Allergy Intermediate Unknown Verified 08/18/23 14:25 sulfamethoxazole Allergy Intermediate Rash Verified 08/18/23 14:25 tetanus toxoid, adsorbed Allergy Intermediate HIVES Verified 08/18/23 14:25 tetracycline Allergy Intermediate hives Verified 08/18/23 14:25 trimethoprim Allergy Intermediate Rash Verified 08/18/23 14:25 rosuvastatin AdvReac Intermediate Muscle Verified 08/18/23 14:25 stiffness Consultations 11/11/23 14:29 ED Decision to Admit Stat 11/12/23 07:45 Consult Cardiology Routine Ordered Studies 11/14/23 10:54 CT chest diagnostic wo con Routine Hospital Course (1) Acute on chronic heart failure with preserved ejection fraction (HFpEF): (2) Supratherapeutic INR: (3) Atrial fibrillation, controlled: (4) HTN (hypertension): (5) HLD (hyperlipidemia): (6) CKD (chronic kidney disease): (7) T2DM (type 2 diabetes mellitus): (8) Hypothyroidism: 87-year-old female with PMH of T2DM, hypothyroidism, HLD, paroxysmal A-fib, HTN, chronic kidney disease stage IV, anemia due to chronic kidney disease, MRSA infection, depression, traumatic subdural hematoma, COVID, ambulatory dysfunction presented from the [facility] 11/11 with acute onset of shortness of breath where she was reportedly having O2 sats in the 70s. She was managed for the following: Acute on chronic HFpEF - ruled out. h/o paroxysmal Atrial Fibrillation Supratherapeutic INR HTN HLD Came in with acute shortness of breath. Admitting troponin negative, admitting EKG with no acute ST or T changes. Last echo reviewed in outpatient showing EF of 60-65% from 2 years ago ECHO this admission w/ EF of 60-65%, No regional wall motion abnormality. Admitting CXR with pulmonary edema and vascular congestion. Admitting BNP 670, received IV Lasix in the ED. At presentation, patient afebrile, respiratory viral panel negative, MRSA negative, WBC WNL. Cards evaled, no concern for HF at this time, no diuresis. Continue home cardiac medications including amiodarone, aspirin, metoprolol, rosuvastatin Admitting INR of 5.8, up trended, received vitamin K p.o. on 11/09 3 AM, now INR therapeutic -- resumed coumadin 11/14. c/w 1.5 mg coumadin daily, f/u w/ comading clinic in 2-3 days upon discharge. Concern for UTI/history of recurrent UTI: Patient started on Rocephin 11/11, continue, Urince Cx contaminated. Patient noted to be confused whenever she had UTI in the past. Atypical Pneumonia: Chest imaging repeated 11/14 which showed multifocal pneumonia/atypical pneumonia. Will continue rocephin 11/11 and added azithromycin 11/14. To po antibiotic on dc. Repeat imaging in 6 weeks to document resolution of pneumonia. Acute metabolic encephalopathy: Daughter at presentation reports the patient has increased issues with word finding, mentation whenever she has infection such as UTI Worse within the past 1 to 2 days prior to arrival Expect to improve w/ resolution of acute issues. Delirium precaution. resolved. DM type II: Last A1c 6.6 on 09/06/2023. ISS with Accu-Cheks ACHS. HH/DM diet allowed CKD: Stable, stg 3, stable, appears to be baseline 1.5-1.6 Hypothyroidism: Chronic, stable, cont levothyroxine DVT ppx: teds, scds Lines: 2 PIV CODE: DNR/DNI FEN/GI: HH/DM diet Dispo: PT/OT, CM to assist with DC plan. can dc to snf. Updated Janeth (pt's dtr) 11/14, answered all her questions. updated regarding pneumonia diagnosis. She voiced understanding and was agreeable to plan of care. Patient is being discharged to SNF with following instruction at the point of discharge: Follow-up with your primary care physician within a week time and likely you will need labs CBC/CMP/magnesium/phosphorus. Your Coumadin level was elevated at presentation, you will be discharged on 1.5 mg Coumadin daily. Follow-up with Coumadin clinic in 2 days time upon discharge and further recommendation from your Coumadin clinic. You were noted to have atypical pneumonia, you will be discharged on antibiotic to complete the course. You will need repeat imaging of the chest in 6 weeks to document resolution of pneumonia. Coordinate with your PCP office to set up the test. Take your medications as prescribed. Please make sure that you are able to get your medications today by calling your pharmacy before you leave the hospital so that your treatment continuity is not broken. Home Health Attestation I certify that this patient is under my care and that I, or a physicians library media assistant working with me, had a face to-face encounter that meets the home health [id number] encounter requirements with this patient. The encounter with the patient was in whole, or in part, for the following medical condition, which is the primary reason for home health care (list medical condition): I certify that, based on my findings, the following services are medically necessary home health services: My clinical findings support the need for the above services because: Further, I certify that my clinical findings support that this patient is homebound (i.e. absences from home require considerable and taxing effort and are for medical reasons or caodaism services or infrequently or of short duration when for other reasons) because: Certification for Home Health Services: Based on the above findings, I certify that this patient is confined to the home and needs intermittent fci care, physical therapy and/or speech therapy or continues to need occupational therapy. The patient is under my care, and I have initiated the establishment of the plan of care. This patient will be followed by a physician who will periodically review the plan of care. Total Time Total Time Spent Total Time Spent (In Minutes): 45 Discharge Plan Discharge Items Patient Disposition: Transfer [facility] Reason For Visit: CHF EXACERBATION Discharge Diagnosis: Acute on chronic HFpEF, ruled out Supratherapeutic INR Atypical pneumonia Acute metabolic encephalopathy Activity: Resume your previous activity Non-emergency contact: Primary Care Provider Call non-emergency contact if: you have any medication questions, your symptoms worsen and your temperature is above 101.5 Follow-up/Referrals: Kendall Smith at [facility] [Primary Care Provider] - Diet: Carb Consistent or DM2 and Heart Healthy Addtl Attending Provider Instructions: Follow-up with your primary care physician within a week time and likely you will need labs CBC/CMP/magnesium/phosphorus. Your Coumadin level was elevated at presentation, you will be discharged on 1.5 mg Coumadin daily. Follow-up with Coumadin clinic in 2 days time upon discharge and further recommendation from your Coumadin clinic. You were noted to have atypical pneumonia, you will be discharged on antibiotic to complete the course. You will need repeat imaging of the chest in 6 weeks to document resolution of pneumonia. Coordinate with your PCP office to set up the test. Take your medications as prescribed. Please make sure that you are able to get your medications today by calling your pharmacy before you leave the hospital so that your treatment continuity is not broken. Pending Studies at Discharge: No Stand-Alone Forms: My [facility] Skilled Items Patient informed of condition?: Yes DNR: Yes Discharge Level of Care: Skilled Communicable Disease: No Discharge Prognosis: Stable Lines: None Urinary Catheter: No Medications and DC Order Prescriptions: New azithromycin 250 mg Tablet 500 mg PO QAM 2 Days Qty: 4 0RF cefdinir 300 mg capsule 300 mg PO DAILY 2 Days Qty: 2 0RF Probiotic 3 billion cell capsule 3,000 mmu cells PO DAILY 7 Days Qty: 7 0RF Rx Instructions: administer with a meal Continued Gemtesa 75 mg tablet 75 mg PO DAILY Qty: 90 3RF diclofenac sodium 1 % gel 1 ea topical Q12 PRN (Reason: joint pain) docusate sodium [Col-Rite] 100 mg capsule 100 mg PO HS glipizide 5 mg tablet 10 mg PO QAM cholecalciferol (vitamin D3) [Vitamin D3] 25 mcg (1,000 unit) Tablet 50 mcg PO QAM PreserVision AREDS-2 250-90-40-1 mg Capsule 1 tab PO BID ketoconazole 2 % Shampoo 1 ea TOPICAL 3XWK Rx Instructions: use in mornings MON, WED, & FRI. apply to scalp lesions acetaminophen [Tylenol Extra Strength] 500 mg Tablet 1,000 mg PO Q8H MDD 3-4 GRAMS/24 HOURS PRN (Reason: FEVER >100.5/MODERATE PAIN) ferrous sulfate 325 mg (65 mg iron) Tablet 325 mg PO QAM Saccharomyces boulardii 250 mg Capsule 250 mg PO DAILY amiodarone 200 mg tablet 200 mg PO QAM cyanocobalamin (vitamin B-12) 1,000 mcg Tablet, Sublingual 1,000 mcg SUBLINGUAL DAILY mupirocin 2 % Ointment 1 applic TOPICAL HS Rx Instructions: apply to scalp aspirin [Aspirin Childrens] 81 mg Tablet,Chewable 81 mg PO 3XWK Rx Instructions: give 1 tablet in the morning of WED/WED/WED menthol-zinc oxide [Calmoseptine] 0.44-20.6 % Ointment 1 applic TOPICAL QS Rx Instructions: APPLY TO COCCYX for scab sertraline 25 mg tablet 25 mg PO QAM rosuvastatin 10 mg tablet 10 mg PO HS TobraDex 0.3-0.1 % Ointment 1 applic OPB HS Systane (PF) 0.4-0.3 % Dropperette 1 drp OPB .Q 2HRS WHILE AWAKE omeprazole 20 mg capsule,delayed release(DR/EC) 20 mg PO QAM loratadine 10 mg Tablet 10 mg PO Q OTHER DAY levothyroxine 112 mcg tablet 112 mcg PO DAILYBB metoprolol tartrate 25 mg tablet 12.5 mg PO BID melatonin 3 mg Capsule 3 mg PO HS loperamide 2 mg Tablet 2 mg PO Q8 PRN (Reason: Diarrhea) Rx Instructions: hold if constipation occurs metronidazole 0.75 % cream 1 applic TOPICAL BID Rx Instructions: apply to face every day and evening shift psyllium Powder 1 ea PO DAILY Rx Instructions: 1 scoop daily..mix into at least 4 oz water or juice before administering Changed warfarin 1 mg tablet 1.5 mg PO DAILY Qty: 45 0RF Patient Comments: Wednesday, Wednesday, , Wednesday, Wednesday Rx Instructions: //// Discontinued warfarin 1 mg tablet 2 mg PO .ON HOLD Rx Instructions: w/f Discharge Orders: Discharge Order (Routine); Ordered 11/17/23 Ordered By: Shameka Gilbert Admission Data Admit Date/Time: 11/11/23 14:47 Attending Provider: Shameka Gilbert Admit Provider: Argelia Loera Primary Care Provider: Kendall Smith [facility] Other Providers: Kendall Smith [facility]; Argelia Loera; Denise Corcoran; Emre Clark; Amol Watters; James Kelley; Faheem Velasco; Herman Ellington; Nighat Love; Haven Murdock; Denise Harvey; Raul Kenny; Naman Ramon; Jazmine Swanson; Mallika Benjamin; Siomara Lyn; Haroldo Castle
[2023-11-17] MEDS ORDERED: WARFARIN SOD 2 MG TAB PO SCH (16:00)
--- NOTE | 2023-11-18 09:03 | Coding Query ---
To promote full compliance with coding requirements relating to patient care, provider participation is requested in all cases of label coder uncertainty. Please assist us with the question(s) below: Coding Question(s): The diagnosis below was documented in the H&P, then subsequently fell off all further documentation. Please indicate if it is still a possible diagnosis or ruled out. Physician's Response(s): ACUTE HYPOXIC RESPIRATORY FAILURE (regarding the Acute Respiratory Failure documented on the H&P by the Supervising Physician) ( ) Diagnosed and POA ( ) Diagnosed and not POA ( ) Ruled out (x ) Other (please specify) - was hypoxia to begin with; didn't qualify for resp failure. MTDD
--- NOTE | 2023-11-18 09:06 | Coding Query ---
CODING QUERY To promote full compliance with coding requirements relating to patient care, provider participation is requested in all cases of motor equipment lieutenant uncertainty. Please assist us with the question(s) below: Coding Question(s): Please specify below, the most likely cause(s) of Acute Metabolic Encephalopathy: ( x ) Atypical Pneumonia ( ) Possible UTI ( ) Other: Please Specify ( ) Unknown likely cause(s) Physician's Response(s): Thank you Dina Hernández Principal Diagnosis: "that condition established after study, to be chiefly responsible for occasioning the admission of the patient to the hospital for care." Co-Existing Principal Diagnosis: "when two or more diagnoses equally meet the criteria for principal diagnosis as determined by the circumstances of admission, diagnostic work up, and/or therapy provided, and the Alphabetic Index, Tabular List, or another coding guideline does not provide sequencing direction, any one of the diagnoses may be sequenced first." "When the physician has documented what appears to be a current diagnosis in the body of the record, but has not included the diagnosis in the final diagnostic statement, the physician should be asked whether the diagnosis should be added." ([facility] 2 QTR90. p3-4) LOUANN
--- NOTE | 2023-11-18 09:11 | Coding Query ---
PRESENT ON ADMISSION QUERY To promote full compliance with coding requirements relating to pateint care, physician participation is requested in all cases of fisheries director uncertainty. Please assist us with the question(s) below: Please place an X within the parenthesis (x). The following diagnosis listed in this patient's medical record require physician assistance to determine if they were present on admission (POA) or not. Please advise for each diagnosis whether it was present on admission, not present on admission, or if it was clinically undetermined. 1. ATYPICAL PNEUMONIA (documentation of Atypical Pneumonia begins on 11/14. The ER documents,pneumonia in the list of Differential Diagnosis) ( ) Present On Admission ( ) Not Present On Admission ( x) Clinically Undetermined Thank you Dina Hernández *Definition of the present on admission (POA)-Present on admission is defined as present at the time the order for inpatient admission occurs. Conditions that develop during an outpatient encounter prior to a written order for inpatient admission (including emergency department, observation, or outpatient surgery) are considered present on admission. MARCUSD
== END 2023-11-17 15:55 | DRG 189 ==
LOC: ED 11:23 → 2E 14:47 → SUATTDRO 14:47 → 2E 16:01 → 3W 11-16 17:53

== ENCOUNTER 2023-11-19 08:08 | Inpatient (IN) ==
[2023-11-19 09:25] LABS: Hematocrit (blood only) 29.8 % (37.0-47.0); Hemoglobin 8.6 g/dl (12.0-16.0); Mean Corpuscular Hemoglobin 25.5 pg (25.0-34.0); Mean Corpuscular Hgb Conc 28.9 g/dL (32.0-36.0); Mean Corpuscular Volume 88.4 fL (80.0-100.0); Mean Platelet Volume 11.3 fL (9.4-12.4); Nucleated RBC # (auto) 0.02 K/uL (0.00-0.12); Nucleated RBC % (auto) 0.3 %; Platelet Count 157 K/uL (130-400); RDW Coefficient of Variation 18.4 % (11.5-14.5); RDW Standard Deviation 57.2 fL (36.4-46.3); Red Blood Count 3.37 M/uL (4.20-5.40); White Blood Count 7.15 K/ul (4.8-10.8)
[2023-11-19 09:39] LABS: Albumin Globulin Ratio 1.2 (0.9-2); BUN Creatinine Ratio 34.4 (10-20); Bilirubin,Total 0.9 mg/dl (0.2-1.0); Calcium 8.7 mg/dl (8.6-10.3); Creatinine Clr Calc Pharmacy 26.3 ml/min; Est GFR (African American) 44.2 ml/min; Est GFR (Non-African American) 38.1 ml/min; Globulin 2.5 gm/dl (2.5-4.0); Magnesium 2.1 mg/dl (1.7-2.4); Potassium 4.6 mmol/L (3.5-5.1); Total Protein 5.5 gm/dl (6.0-8.3)
[2023-11-19 09:43] LABS: Basophils # (auto) 0.02 K/uL (0.00-0.20); Basophils % (auto) 0.3 %; Eosinophils # (auto) 0.04 K/uL (0.00-0.50); Eosinophils % (auto) 0.6 %; Immature Granulocytes # (auto) 0.05 K/uL (0.01-0.20); Immature Granulocytes % (auto) 0.7 %; Lymphocytes # (auto) 1.65 K/uL (1.20-3.40); Lymphocytes % (auto) 23.1 %; Neutrophils # (auto) 4.89 K/uL (1.40-6.50); Neutrophils % (auto) 68.3 %; Polychromasia 1+; Tear Drop Cells 1+
[2023-11-19 09:48] LABS: INR 2.5 (0.9-1.1); Partial Thromboplastin Time 28 Seconds (21-31); Prothrombin Time 26.2 Seconds (9.0-12.0)
[2023-11-19] MEDS: ALBUT/IPRATROP 3MG/0.5MG NEB 3 ML VIAL INH STA (09:51)
--- NOTE | 2023-11-19 10:23 | XRay Report ---
XR chest 1V portable HISTORY: Dyspnea COMPARISON: Chest 11/14/2023. FINDINGS: There are low lung volumes. No pneumothorax. Small bilateral pleural effusions again noted. The heart remains enlarged. Mitral annulus calcifications are present. No acute fractures. Multifoca l patchy bilateral airspace opacities have slightly progressed. IMPRESSION: 1. Multifocal patchy bilateral airspace opacities have slightly progressed. 2. Small bilateral pleural effusions again noted. ACT 112: Negative or not required by law. Electronically signed by: Donato uDval M.D. 11/19/2023 10:22 AM
[2023-11-19 10:33] LABS: Allen Test Pos (Pos); Base Excess ABG 2.5 mEq/L (-9-1.8); HCO3 ABG 28 mmol/L (19-24); Oxygen Saturation ABG 93.3 % (90-95); PCO2 ABG 46 mmHg (35-46); PO2 ABG 69 mmHg (80-95); pH ABG 7.39 (7.35-7.45)
[2023-11-19] MEDS: FUROSEMIDE 40 MG/4 ML VIAL IV ONE (10:39)
[2023-11-19 10:41] LABS: Influenza A virus by PCR Negative (Neg); Influenza B virus by PCR Negative (Neg); RSV by PCR Negative (Neg); SARS CoV2 RNA(COVID-19) Ceph NEGATIVE (Negative)
[2023-11-19] MEDS: CEFEPIME 2,000 MG/20 ML VIAL IV STA (11:17)
[2023-11-19] MEDS: VANCOMYCIN HCL 1,250 MG in SODIUM CHLORIDE 0.9% 250 ML IV STA (11:23)
--- NOTE | 2023-11-19 11:23 | History & Physical Report ---
Date of Service November 19, 2023 Assessment & Plan (1) Acute respiratory failure with hypoxia and hypercapnia: (2) Atypical pneumonia: (3) Altered mental status: (4) HTN (hypertension): (5) HLD (hyperlipidemia): (6) (HFpEF) heart failure with preserved ejection fraction: (7) CKD (chronic kidney disease) stage 4, GFR 15-29 ml/min: (8) T2DM (type 2 diabetes mellitus): (9) Hypothyroidism: Plan: Acute on Chronic Respiratory Failure Pneumonia - Admit to PCU - Blood cultures, x 2,Check procal, lactate, BNP for r/o cause of worsening resp status - Pt was on bipap in the ER, RR of 22, appears to be in No acute distress - CXR reviewed and appears to have progressed pna compared to previously - ABG showing pH of 7.39, CO2 46, pO2 69, bicarb of 28. - No WBC, 7.15, Chest x-ray appears significantly progressed with infiltrate compared to previous imaging study last week. She has been placed on Vanco and cefepime IV. - Consult pulm with progressive pna on imaging and worsening symptoms Chronic HFpEF Atrial Fibrillation Supratherapeutic INR HTN HLD - Trop 42-->44, trend 1 more set - INR is therapeutic at 2.5 - BNP was not obtained, will check to r/o. Pt does not appear overloaded at this point at all. - CXR as above - Afebrile, no WBC - Continue antihypertensive medications - INR 2.5, continue Coumadin, trend daily - no obvious sources of bleeding currently, plt ok. - RVP is negative - Rate controlled on amiodarone, cont baby aspirin, metoprolol tartrate 12.5 mg BID, statin therapy Acute Encephalopathy -Daughter at bedside reports the patient has increased issues with word finding, mentation whenever she has infection such as UTI or other infection, today was very difficult to understand due to the above - Infectious workup as above Hx of UTI - Check UA and UCx - was recently treated for such and completed abx during last stay DM type II -Last A1c 6.6 on 09/06/2023 -ISS with Accu-Cheks ACHS -HH/DM diet allowed CKD -Stable, stg 3, creatinine is down 1.25, appears to have baseline 1.5-1.6 Hypothyroidism -Chronic, stable, cont levothyroxine DVT ppx: teds, scds Lines: 2 PIV CODE: DNR/DNI FEN/GI: HH/DM diet Dispo: From home, likely to remain in the hospital x 1-2 days A total of 85 minutes were spent with greater than 50% of that time face to face with the patient, personally reviewing all current laboratories, imaging studies, past medication reconciliation, outpatient chart review, and discussion with specialists to collaborate care for the patient with attending. Please see attending documentation for corrections and/or additions. History of Present Illness Chief Complaint: Shortness of breath Primary Care Provider: Sarah Argueta at [place] This is a 88-year-old female with PMHx of type 2 diabetes, hypothyroidism, hyperlipidemia, paroxysmal atrial fibrillation, hypertension, chronic kidney disease stage IV, anemia due to chronic kidney disease, history of MRSA infectio n, history of depression, history of traumatic subdural hematoma, history of COVID, history of ambulatory dysfunction from [facility] who presents to the hospital with acute onset of shortness of breath where she was reportedly having O2 sats in the 70s. She was just recently admitted on 11/11 to 11/17 for very similar presentation however throughout that hospital stay she was treated for UTI and then atypical pneumonia starting azithromycin on 11/14 where had improved and then was discharged back to [facility]. She represents today as nursing staff at facility reported that she was found to have O2 sats again down in the 70s, and her oxygen had come off some time while she was sleeping. Once NC was placed on, her sats came back up into the mid 80s, EMS was called and pt was brought to the hospital. Here, pt was placed on 15L nonrebreather which she improved with, however due to RR of 25, was placed on BiPAP while here. ABG showing pH of 7.39, CO2 46, pO2 69, bicarb of 28. No WBC, 7.15, INR is therapeutic at 2.5, troponin is noted to be slightly elevated at 42. Chest x- ray appears significantly progressed with infiltrate compared to previous imaging study last week. She has been placed on Vanco and cefepime IV. Patient's daughter and her are present at bedside and supports the history. Patient is unable to speak very clearly with the BiPAP mask in place, she answers yes to having pain but cannot pinpoint any location. Daughter notes that she saw patient yesterday at [facility], she was eating very minimally, seemed weak, lethargic, and not herself. She feels that she worsened throughout her past hospital stay compared to improving. She denies noticing any cough, issues with oxygen yesterday, fever, chills. At this time daughter is wanting to treat any infection, she is agreeable that mother would not want intubation or CPR. We discussed giving breaks with wearing BiPAP and she is agreeable to such. She denies any issues with speech/swallowing in the past but cannot this did not happen in the last few days as her weakness has progressed. Allergies Allergy/AdvReac Type Severity Reaction Status Date / Time amoxicillin Allergy Intermediate Unknown Verified 08/18/23 14:25 sulfamethoxazole Allergy Intermediate Rash Verified 08/18/23 14:25 tetanus toxoid, adsorbed Allergy Intermediate HIVES Verified 08/18/23 14:25 tetracycline Allergy Intermediate hives Verified 08/18/23 14:25 trimethoprim Allergy Intermediate Rash Verified 08/18/23 14:25 rosuvastatin AdvReac Intermediate Muscle Verified 08/18/23 14:25 stiffness Home Medications Medication Instructions Recorded Confirmed Type docusate sodium 100 mg capsule 100 mg PO HS 06/25/20 11/19/23 History (Col-Rite) glipizide 5 mg tablet 10 mg PO QAM 06/25/20 11/19/23 History cholecalciferol (vitamin D3) 25 50 mcg PO QAM 11/09/20 11/19/23 History mcg (1,000 unit) tablet (Vitamin D3) vit C 250 mg-vit E 90 mg-zinc 40 1 tab PO BID 11/09/20 11/19/23 History mg-copper 1 qs-vactpx-vrigwc capsule (PreserVision AREDS-2) Saccharomyces boulardii 250 mg 250 mg PO DAILY 03/15/22 11/19/23 History capsule acetaminophen 500 mg tablet 1,000 mg PO Q8H PRN FEVER 03/15/22 11/19/23 History (Tylenol Extra Strength) >100.5/MODERATE PAIN amiodarone 200 mg tablet 200 mg PO QAM 03/15/22 11/19/23 History ferrous sulfate 325 mg (65 mg 325 mg PO QAM 03/15/22 11/19/23 History iron) tablet ketoconazole 2 % shampoo 1 ea topical 3XWK 03/15/22 11/19/23 History cyanocobalamin (vitamin B-12) 1,000 mcg sublingual DAILY 10/27/22 11/19/23 History 1,000 mcg sublingual tablet mupirocin 2 % topical ointment 1 applic topical HS 10/27/22 11/19/23 History diclofenac sodium 1 % topical gel 1 ea topical Q12 PRN joint pain 02/08/23 11/19/23 History vibegron 75 mg tablet (Gemtesa) 75 mg PO DAILY #90 tabs 09/28/23 11/19/23 Rx aspirin 81 mg chewable tablet 81 mg PO 3XWK 11/11/23 11/19/23 History (Aspirin Childrens) levothyroxine 112 mcg tablet 112 mcg PO DAILYBB 11/11/23 11/19/23 History loperamide 2 mg tablet 2 mg PO Q8 PRN Diarrhea 11/11/23 11/19/23 History loratadine 10 mg tablet 10 mg PO Q OTHER DAY 11/11/23 11/19/23 History melatonin 3 mg capsule 3 mg PO HS 11/11/23 11/19/23 History menthol 0.44 %-zinc oxide 20.6 % 1 applic topical QS 11/11/23 11/19/23 History topical ointment (Calmoseptine) metoprolol tartrate 25 mg tablet 12.5 mg PO BID 11/11/23 11/19/23 History metronidazole 0.75 % topical cream 1 applic topical BID 11/11/23 11/19/23 History omeprazole 20 mg capsule,delayed 20 mg PO QAM 11/11/23 11/19/23 History release peg 400-propylene glycol (PF) 0.4 1 drp OPB .Q 2HRS WHILE AWAKE 11/11/23 11/19/23 History %-0.3 % eye drops in a dropperette (Systane (PF)) psyllium 1 ea PO DAILY 11/11/23 11/19/23 History rosuvastatin 10 mg tablet 10 mg PO HS 11/11/23 11/19/23 History sertraline 25 mg tablet 25 mg PO QAM 11/11/23 11/19/23 History tobramycin-dexamethasone 0.3 %-0.1 1 applic OPB HS 11/11/23 11/19/23 History % eye ointment (TobraDex) lactobacillus combination no.4 3 3,000 mmu cells PO DAILY 1 week #7 11/17/23 11/19/23 Rx billion cell capsule (Probiotic) caps warfarin 1 mg tablet 1.5 mg (1.5 x 1 mg) PO DAILY #45 11/17/23 11/19/23 Rx tabs Past Med/Surg History Medical History Gross hematuria CKD (chronic kidney disease) stage 4, GFR 15-29 ml/min History of MRSA infection History of COVID-19 History of traumatic subdural hematoma Symptomatic anemia Recurrent UTI Acute on chronic anemia Candiduria Cystitis Admitted to intensive care unit Sepsis Left knee DJD Closed left hip fracture s/p repair UTI (urinary tract infection) Atrial fibrillation with RVR Volume depletion CRISPIN (acute kidney injury) Sepsis Gram-negative bacteremia Paroxysmal A-fib DVT prophylaxis T2DM (type 2 diabetes mellitus) HTN (hypertension) HLD (hyperlipidemia) Hypothyroidism Surgical History History of hysterectomy History of cholecystectomy History of breast biopsy Family History Mother Breast cancer Hypertension Father , at 92 No problems noted. Social History Smoking Status: Never smoker Second Hand Exposure: No; Do You Dip or Chew Tobacco: No; Hx Alcohol Use: Yes Alcohol type: wine Hx Substance Use: No Preferred Language: Marshallese Communication Ability: Effective Bilingual Sales Assistant Required: No Beliefs That Will Affect Care: Baptism Baptism Beliefs: Mandaeism marital status: / Current Living Situation: Senior Care Current Living Situation Comment: [facility] How many Children do You have: 1 other: ambulates with cane Feels Safe at Home: Yes Assistive Devices: Wheelchair Review of Systems Review of Systems: Unobtainable due to cognitive status Physical Exam Physical Exam: General: awake, alert, no apparent distress, elderly white female, wearing BiPAP, opens eyes to verbal stimuli but has difficulty responding/answering my questions clearly Head: Normocephalic, atraumatic ENT: PERRL, EOMI, mucous membranes dry Chest: Coarse breath sounds throughout with wearing BiPAP, no wheeze or rales, + crackles, diminished at bases bilaterally. Cardiac: Regular rate and rhythm, heart rate in 80s, + systolic murmur, no JVD, normal peripheral pulses, good capillary refill Abdominal: NABS x 4 quadrants, soft, nondistended, nontender to palpation, no rebound or guarding Extremities: Normal inspection, no peripheral edema or erythema, Wearing pressure offloading boots, calfs nontender to palpation Psych: Normal mood and affect Neuro: AAO x 3, strength intact bilaterally and rated 4/5, no motor deficits, speech is slow, difficult to understand today, no peripheral sensory deficits Results & Data Results & Data Vital Signs (Past 12 Hours) Vital Signs Temp Pulse Pulse Resp BP BP Pulse Ox 11/19/23 10:04 80 26 H 124/73 93 11/19/23 10:01 82 25 H 94 11/19/23 09:57 81 24 92 11/19/23 08:46 11/19/23 08:30 11/19/23 08:30 36.7 C 82 23 109/44 L 96 11/19/23 08:27 81 O2 Del Method O2 Flow Rate FiO2 11/19/23 10:04 BiPAP 11/19/23 10:01 60 11/19/23 09:57 Non-rebreather 15 11/19/23 08:46 Non-rebreather 15 11/19/23 08:30 Non-rebreather 15 11/19/23 08:30 Non-rebreather 15 11/19/23 08:27 Laboratory Results 11/19/23 10:11 Aerobic Blood Culture - Pending Blood Anaerobic Blood Culture - Pending 11/19/23 08:44 Aerobic Blood Culture - Pending Blood Anaerobic Blood Culture - Pending 11/19/23 11/19/23 11/19/23 10:27 10:19 09:53 WBC RBC Hgb Hct MCV MCH MCHC RDW Std Deviation RDW Coeff of Hope Plt Count MPV Immature Gran % (Auto) Neut % (Auto) Lymph % (Auto) [place] % (Auto) Eos % (Auto) Baso % (Auto) Neut # (Auto) Lymph # (Auto) [place] # (Auto) Eos # (Auto) Baso # (Auto) Immature Gran # (Auto) Absolute Nucleated RBC Nucleated RBC % (auto) Polychromasia Tear Drop Cells PT INR APTT PTT Ratio ABG pH 7.39 ABG pCO2 46 ABG pO2 69 L ABG HCO3 28 H ABG O2 Saturation 93.3 ABG Base Excess 2.5 H Adrian Test Pos Oxygen Given 15L Sodium Potassium Chloride Carbon Dioxide Anion Gap BUN Creatinine Est Cr Clr Drug Dosing Est GFR ( Amer) Est GFR (Non-Af Amer) BUN/Creatinine Ratio Glucose Lactate 1.7 Calcium Magnesium Total Bilirubin AST ALT Alkaline Phosphatase Troponin I High Sens Total Protein Albumin Globulin Albumin/Globulin Ratio SARS-CoV-2 (PCR) NEGATIVE Influenza Type A (PCR) Negative Influenza Type B (PCR) Negative RSV (RT-PCR) Negative 11/19/23 08:44 WBC 7.15 RBC 3.37 L Hgb 8.6 L Hct 29.8 L MCV 88.4 MCH 25.5 MCHC 28.9 L RDW Std Deviation 57.2 H RDW Coeff of Hope 18.4 H Plt Count 157 MPV 11.3 Immature Gran % (Auto) 0.7 Neut % (Auto) 68.3 Lymph % (Auto) 23.1 [place] % (Auto) 7.0 Eos % (Auto) 0.6 Baso % (Auto) 0.3 Neut # (Auto) 4.89 Lymph # (Auto) 1.65 [place] # (Auto) 0.50 Eos # (Auto) 0.04 Baso # (Auto) 0.02 Immature Gran # (Auto) 0.05 Absolute Nucleated RBC 0.02 Nucleated RBC % (auto) 0.3 Polychromasia 1+ Tear Drop Cells 1+ PT 26.2 H INR 2.5 H APTT 28 PTT Ratio 1.0 ABG pH ABG pCO2 ABG pO2 ABG HCO3 ABG O2 Saturation ABG Base Excess Adrian Test Oxygen Given Sodium 144 Potassium 4.6 Chloride 107 Carbon Dioxide 29 Anion Gap 8 BUN 43 H Creatinine 1.25 H Est Cr Clr Drug Dosing 26.3 Est GFR ( Amer) 44.2 Est GFR (Non-Af Amer) 38.1 BUN/Creatinine Ratio 34.4 H Glucose 183 H Lactate Calcium 8.7 Magnesium 2.1 Total Bilirubin 0.9 AST 43 H ALT 29 Alkaline Phosphatase 98 Troponin I High Sens 42.0 H Total Protein 5.5 L Albumin 3.0 L Globulin 2.5 Albumin/Globulin Ratio 1.2 SARS-CoV-2 (PCR) Influenza Type A (PCR) Influenza Type B (PCR) RSV (RT-PCR) Diagnostic Findings Chest X-Ray 11/19/23 09:06 XR chest 1V portable HISTORY: Dyspnea COMPARISON: Chest 11/14/2023. FINDINGS: There are low lung volumes. No pneumothorax. Small bilateral pleural effusions again noted. The heart remains enlarged. Mitral annulus calcifications are present. No acute fractures. Multifocal patchy bilateral airspace opacities have slightly progressed. IMPRESSION: 1. Multifocal patchy bilateral airspace opacities have slightly progressed. 2. Small bilateral pleural effusions again noted. ACT 112: Negative or not required by law. Electronically signed by: Donato Duval M.D. 11/19/2023 10:22 AM Code Status & VTE Plan Code Status DNR/DNI- discussed with pt family at bedside Supervising Physician Co-Signing Physician Notes Agreed with Opal HOFF exam, assessment and plan. 88-year-old female with PMHx of type 2 diabetes, hypothyroidism, hyperlipidemia, paroxysmal atrial fibrillation, hypertension, chronic kidney disease stage IV, anemia due to chronic kidney disease, history of MRSA infection, history of depression, history of traumatic subdural hematoma, history of COVID, history of ambulatory dysfunction from [facility] who presents to the hospital acute respiratory distress. Pt recently discharged on 11/17/23 for similar presentation where she was having SOB with Oxygen sat in the 70's. She was treated for PNA and UTI. She was discharged on oxygen supplement. Today she was found to be hypoxia with sat in the 70% due to her oxygen came off when she was sleeping. she was placed on nonrebreather, then Bipap due to tachypnea. Lab on admission with ABG with pH of 7.39, CO2 46, pO2 69, bicarb of 28. No leukocytosis, INR is therapeutic at 2.5, troponin is noted to be slightly elevated at 42. CXR revealed multifocal patchy bilateral airspace opacities have slightly progressed. Small bilateral pleural effusions again noted. received IV Vanco, Cefepime IV and Lasix 40mg IV. Will continue IV abx for now. Currently on Bipap, will continue bipap prn. Will add incentive spirometry. Mild elevated troponin is mostly related to hypoxia. Will check procalcitonin, BNP and follow up culture. Will consult pulm due to recurrent admission for respiratory failure. Continue monitor closely. MD William (3) Altered mental status Altered mental status type: unspecified Qualified Code(s): R41.82 - Altered mental status, unspecified (4) HTN (hypertension) Hypertension type: essential hypertension Qualified Code(s): I10 - Essential (primary) hypertension (5) HLD (hyperlipidemia) Hyperlipidemia type: unspecified Qualified Code(s): E78.5 - Hyperlipidemia, unspecified (8) T2DM (type 2 diabetes mellitus) Chronic kidney disease stage: stage 3 (moderate) Diabetes mellitus complication detail: with chronic kidney disease Diabetes mellitus complication status: with kidney complications Diabetes mellitus [facility] insulin use: without [facility] use Qualified Code(s): E11.22 - Type 2 diabetes mellitus with diabetic chronic kidney disease; N18.3 - Chronic kidney disease, stage 3 (moderate) (9) Hypothyroidism Hypothyroidism type: unspecified Qualified Code(s): E03.9 - Hypothyroidism, unspecified
[2023-11-19 12:51] LABS: Appearance Urine Clear (Clear); Bacteria Urine Automated Negative (Negative); Bilirubin Urine Negative (Negative); Blood Urine Negative (Negative); Color Urine Dark Yellow; Epithelial Cell Urine Auto >30 /lpf (0-5); Glucose Urine UA Negative (Negative); Ketones Urine Negative (Negative); Leukocyte Esterase Urine Trace (Negative); Nitrite Urine Negative (Negative); Protein Urine Trace (Negative); RBC Urine Automated 0-4 /hpf (0-4); Specific Gravity Urine 1.014 (1.000-1.030); Urobilinogen Urine Negative (Negative); pH Urine 5.5 (4.5-7.5)
[2023-11-19] MEDS ORDERED: VANCOMYCIN CONSULT ACTIVE PRN (13:38)
[2023-11-19] MEDS ORDERED: CEFEPIME 2,000 MG in SYRINGE 0 ML IV SCH (13:38)
[2023-11-19] MEDS ORDERED: ONDANSETRON INJ 2 MG/ML 2 ML VIAL IV PRN (13:38)
[2023-11-19] MEDS ORDERED: ACETAMINOPHEN 325 MG TAB PO PRN (13:38)
[2023-11-19] MEDS ORDERED: NON-FORMULARY MEDICATION (Peg 400-Propylene Glycol (Pf) [Systane (Pf)] 0.4-0.3 % Dropperet OPB SCH (14:30)
[2023-11-19] MEDS ORDERED: DICLOFENAC SOD 1% GEL 100 GM TUBE EXT PRN (14:30)
--- NOTE | 2023-11-19 14:30 | Pharmacy Report ---
Pharmacy PK ABX Note - Date of Service November 19, 2023 - Assessment and Plan Assessment 88 year old F receiving Vancomycin and Cefepime for treatment of pneumonia. * Day #1 of antimicrobial therapy. * PMHx significant for T2DM and CKD. * Afebrile and without leukocytosis. SCr 1.25 mg/dL (CrCl 26 mL/min). * Blood cultures pending. Plan Vancomycin * Loading dose: 1250 mg IV x 1 * Maintenance dose: 750 mg IV every 24 hours * Regimen is predicted to achieve target AUC/DALE of 400-600 mg/L.hr * Random level ordered for: 11/22/23 Cefepime * 2000 mg IV x 1 followed by 1000 mg IV every 12 hours - appropriate per renal function Pharmacy will continue to follow and will adjust dose/frequency as necessary. Thank you. Pharmacy has transitioned to AUC monitoring for vancomycin. AUC/DALE is the preferred PK/PD target and is associated with decreased risk of nephrotoxicity compared to traditional trough targets.
--- NOTE | 2023-11-19 14:37 | Pulmonary Consultation ---
Date of Consultation November 19, 2023 Assessment & Plan (1) Acute hypoxemic respiratory failure: (2) Acute on chronic heart failure with preserved ejection fraction (HFpEF): (3) Idiopathic interstitial pneumonia: Plan 88-year-old female with history of moderate aortic stenosis, diastolic heart failure, CKD stage IV and paroxysmal atrial fibrillation who presents with hypoxic respiratory failure. BNP elevated to 592. Procalcitonin minimally elevated. Chest x-ray demonstrates bilateral infiltrates. She was on BiPAP therapy in the ER and received 40 mg of IV Lasix. Her oxygenation has improved somewhat. I think she has a mixed picture of acute lung injury due to inflammatory state potentially from amiodarone/aspiration pneumonitis and likely volume overload given her moderate aortic stenosis. Agree with diuretics to maintain euvolemia. Diffuse alveolar hemorrhage also on the differential, but less likely given the lack of hemoptysis and fairly stable hemoglobin. Patient is not stable to undergo bronchoscopy. Recommend initiating IV methylprednisone 40 mg, 3 times daily. Respiratory viral panel was negative. Will obtain Legionella urine antigen. Agree with empiric antibiotics. Recommend cardiology consultation. Discussed with bedside nursing, hospitalist service and family at bedside. Pulmonary will continue to follow. Thank you for the consult History of Present Illness Reason for Consultation: Hypoxic respiratory failure Attending Physician: Edi Thomas MD History of Present Illness 88-year-old female with a history of paroxysmal atrial fibrillation, hypertension, CKD stage IV, anemia and type 2 diabetes mellitus who presented to the ER from a group home due to shortness of breath and altered mental status. During her last hospital stay she was treated for UTI and "atypical pneumonia". She was discharged 11/17/2023. Currently she is denying any shortness of breath or chest pain. We were able to take her off BiPAP and put her on an oxime mask at a flow rate of 11 L/min. She is saturating in the low 90s. Allergies Allergy/AdvReac Type Severity Reaction Status Date / Time amoxicillin Allergy Intermediate Unknown Verified 08/18/23 14:25 sulfamethoxazole Allergy Intermediate Rash Verified 08/18/23 14:25 tetanus toxoid, adsorbed Allergy Intermediate HIVES Verified 08/18/23 14:25 tetracycline Allergy Intermediate hives Verified 08/18/23 14:25 trimethoprim Allergy Intermediate Rash Verified 08/18/23 14:25 rosuvastatin AdvReac Intermediate Muscle Verified 08/18/23 14:25 stiffness Home Medications Medication Instructions Recorded Confirmed Type docusate sodium 100 mg capsule 100 mg PO HS 06/25/20 11/19/23 History (Col-Rite) glipizide 5 mg tablet 10 mg PO QAM 06/25/20 11/19/23 History cholecalciferol (vitamin D3) 25 50 mcg PO QAM 11/09/20 11/19/23 History mcg (1,000 unit) tablet (Vitamin D3) vit C 250 mg-vit E 90 mg-zinc 40 1 tab PO BID 11/09/20 11/19/23 History mg-copper 1 [id number] capsule (PreserVision AREDS-2) Saccharomyces boulardii 250 mg 250 mg PO DAILY 03/15/22 11/19/23 History capsule acetaminophen 500 mg tablet 1,000 mg PO Q8H PRN FEVER 03/15/22 11/19/23 History (Tylenol Extra Strength) >100.5/MODERATE PAIN amiodarone 200 mg tablet 200 mg PO QAM 03/15/22 11/19/23 History ferrous sulfate 325 mg (65 mg 325 mg PO QAM 03/15/22 11/19/23 History iron) tablet ketoconazole 2 % shampoo 1 ea topical 3XWK 03/15/22 11/19/23 History cyanocobalamin (vitamin B-12) 1,000 mcg sublingual DAILY 10/27/22 11/19/23 History 1,000 mcg sublingual tablet mupirocin 2 % topical ointment 1 applic topical HS 10/27/22 11/19/23 History diclofenac sodium 1 % topical gel 1 ea topical Q12 PRN joint pain 02/08/23 11/19/23 History vibegron 75 mg tablet (Gemtesa) 75 mg PO DAILY #90 tabs 09/28/23 11/19/23 Rx aspirin 81 mg chewable tablet 81 mg PO 3XWK 11/11/23 11/19/23 History (Aspirin Childrens) levothyroxine 112 mcg tablet 112 mcg PO DAILYBB 11/11/23 11/19/23 History loperamide 2 mg tablet 2 mg PO Q8 PRN Diarrhea 11/11/23 11/19/23 History loratadine 10 mg tablet 10 mg PO Q OTHER DAY 11/11/23 11/19/23 History melatonin 3 mg capsule 3 mg PO HS 11/11/23 11/19/23 History menthol 0.44 %-zinc oxide 20.6 % 1 applic topical QS 11/11/23 11/19/23 History topical ointment (Calmoseptine) metoprolol tartrate 25 mg tablet 12.5 mg PO BID 11/11/23 11/19/23 History metronidazole 0.75 % topical cream 1 applic topical BID 11/11/23 11/19/23 History omeprazole 20 mg capsule,delayed 20 mg PO QAM 11/11/23 11/19/23 History release peg 400-propylene glycol (PF) 0.4 1 drp OPB .Q 2HRS WHILE AWAKE 11/11/23 11/19/23 History %-0.3 % eye drops in a dropperette (Systane (PF)) psyllium 1 ea PO DAILY 11/11/23 11/19/23 History rosuvastatin 10 mg tablet 10 mg PO HS 11/11/23 11/19/23 History sertraline 25 mg tablet 25 mg PO QAM 11/11/23 11/19/23 History tobramycin-dexamethasone 0.3 %-0.1 1 applic OPB HS 11/11/23 11/19/23 History % eye ointment (TobraDex) lactobacillus combination no.4 3 3,000 mmu cells PO DAILY 1 week #7 11/17/23 11/19/23 Rx billion cell capsule (Probiotic) caps warfarin 1 mg tablet 1.5 mg (1.5 x 1 mg) PO DAILY #45 11/17/23 11/19/23 Rx tabs Patient History Medical History (Updated 11/19/23 @ 15:39 by Trent Hoffman MD) Idiopathic interstitial pneumonia Acute hypoxemic respiratory failure Gross hematuria CKD (chronic kidney disease) stage 4, GFR 15-29 ml/min History of MRSA infection History of COVID-19 History of traumatic subdural hematoma Symptomatic anemia Recurrent UTI Acute on chronic anemia Candiduria Cystitis Admitted to intensive care unit Sepsis Left knee DJD Closed left hip fracture s/p repair UTI (urinary tract infection) Atrial fibrillation with RVR Volume depletion CRISPIN (acute kidney injury) Sepsis Gram-negative bacteremia Paroxysmal A-fib DVT prophylaxis T2DM (type 2 diabetes mellitus) HTN (hypertension) HLD (hyperlipidemia) Hypothyroidism Surgical History History of hysterectomy History of cholecystectomy History of breast biopsy Family History Mother Breast cancer Hypertension Father , at 92 No problems noted. Social History Smoking Status: Never smoker Second Hand Exposure: No; Do You Dip or Chew Tobacco: No; Tobacco Cessation Education Requested by Patient: No Hx Alcohol Use: No Hx Substance Use: No Preferred Language: French Communication Ability: Effective Control Center Operator Required: No Beliefs That Will Affect Care: None marital status: / Current Living Situation: [facility] Current Living Situation Comment: [facility] How many Children do You have: 1 Other Information That Helps Us Care for You: Yes other: ambulates with cane Feels Safe at Home: Yes Assistive Devices: Oxygen - Continuous Assistive Devices Comment: 02 for 1 week, after patient was discharged from the hospital Review of Systems Review of Systems: All systems reviewed & are unremarkable except as noted in HPI & below Physical Exam Physical Exam: Constitutional: Patient appears to be of their stated age. Patient is in no apparent distress. Patient is well-developed. Eyes: Pupils are equal round and reactive to light. Conjunctivae are normal. Anicteric sclera. Ears nose, mouth and throat: Mallampati class 2. Normal posterior oropharynx. Uvula is midline. Neck: Trachea is midline. Visual inspection is normal. Respiratory: Bilateral crackles with mildly increased work of breathing. Cardiovascular: Regular rate and rhythm. No murmurs. No edema. Gastrointestinal: Normal bowel sounds, soft, nontender and nondistended. No hepatosplenomegaly noted. Musculoskeletal: No cyanosis. Patient is able to move all extremities. Strength is 5 out of 5 in the upper and lower extremities. Skin: No rashes, warm dry and intact. Neurologic: No obvious focal neurological deficits seen. Psychiatric: Alert and oriented x3 with a euthymic affect. Results & Data Results & Data Vital Signs (Past 12 Hours) Vital Signs Temp Pulse Pulse Resp BP BP Pulse Ox 11/19/23 13:30 36.6 C 80 17 112/66 91 11/19/23 11:30 86 22 136/65 94 11/19/23 11:15 84 25 H 128/60 96 11/19/23 11:00 81 22 114/51 L 96 11/19/23 10:45 79 21 111/51 L 95 11/19/23 10:30 81 24 128/69 92 11/19/23 10:04 80 26 H 124/73 93 11/19/23 10:01 82 25 H 94 11/19/23 09:57 81 24 92 11/19/23 08:46 11/19/23 08:30 11/19/23 08:30 36.7 C 82 23 109/44 L 96 11/19/23 08:27 81 O2 Del Method O2 Flow Rate FiO2 11/19/23 13:30 BiPAP 45 11/19/23 11:30 BiPAP 11/19/23 11:15 BiPAP 11/19/23 11:00 BiPAP 11/19/23 10:45 BiPAP 11/19/23 10:30 BiPAP 11/19/23 10:04 BiPAP 11/19/23 10:01 60 11/19/23 09:57 Non-rebreather 15 11/19/23 08:46 Non-rebreather 15 11/19/23 08:30 Non-rebreather 15 11/19/23 08:30 Non-rebreather 15 11/19/23 08:27 PG Care Time/CCT Total # of Minutes Spent Total Time Spent with Patient: Total time spent is greater than 50% in coordination of care (as documented) at patient's floor/unit and/or counseling patient: Coding Level of Care Code 70273 INT INP/OBS CARE 3/75MIN Diagnoses Acute hypoxemic respiratory failure J96.01 Acute on chronic heart failure with preserved ejection fraction (HFpEF) I50.33 Idiopathic interstitial pneumonia J84.111
[2023-11-19] MEDS: ACETAMINOPHEN 1,000 MG/100 ML VIAL IV STA ×2 (15:04→15:40)
[2023-11-19] MEDS: ALBUT/IPRATROP 3MG/0.5MG NEB 3 ML VIAL NEB SCH (15:19)
[2023-11-19] MEDS: BENZONATATE 100 MG CAPSULE PO SCH (15:38)
[2023-11-19] MEDS: ASPIRIN 81 MG CHEW PO SCH (15:38)
[2023-11-19] MEDS: methylPREDNISolone 40 MG in SYRINGE 0 ML IV SCH (15:38)
[2023-11-19] MEDS: ACETAMINOPHEN 500 MG TAB PO SCH (15:39)
--- NOTE | 2023-11-19 16:16 | Emergency Department Note ---
Impression & Plan Acute hypoxic respiratory failure, Atypical pneumonia, Pulmonary vascular congestion ED Provider Note CHIEF COMPLAINT: Respiratory difficulty HISTORY OF PRESENT ILLNESS: This 88-year-old female patient past medical history of interstitial pneumonia, respiratory failure, congestive heart failure, altered mental status, pulmonary edema, UTI, chronic kidney disease, hypertension, hyperlipidemia presents to the emergency department presents emergency department with complaints of respiratory difficulty. The patient lives at [facility]. She was noted to be hypoxic to 70s on room air. Patient did have a recent hospitalization due to congestive heart failure and pneumonia. She was since discharged on 3 L nasal cannula oxygen all the time. She did not have her oxygen on at the time that she was found by staff this morning. They were not able to get her oxygen saturations back up with nasal cannula oxygen and put her on nonrebreather. The ambulance was called. The patient has had some decreased mentation intermittently since her hospitalization. She was on antibiotics in the hospital and discharged on azithromycin. She has not had any fevers. REVIEW OF SYSTEMS: A review of systems was performed with positives and pertinent negatives listed in the history of present illness. 10 systems were reviewed and are otherwise negative. ALLERGIES: see below MEDICATIONS: see below PMH: see below SOCIAL HISTORY: see below DDx: Electrolyte abnormality, congestive heart failure, ACS, multifocal pneumonia, PE, medication effect, among others PHYSICAL EXAM: Vital signs reviewed. General: Chronically ill-appearing 88-year-old female, in no significant distress. Thin and frail HEENT: No scleral icterus, PERRLA, neck supple. Moist mucous membranes Cardiovascular: Regular rate and rhythm, no extra sounds. Pulmonary: Coarse breath sounds bilaterally with increased work of breathing. Abdomen: Soft, nontender, nondistended, positive bowel sounds. Musculoskeletal: Atraumatic, no peripheral edema. Neurologic: Patient awake but speech is unintelligible. Patient does seem to respond to questioning and some simple commands Skin: Warm, dry, no rash EMERGENCY DEPARTMENT COURSE/MDM: This patient was evaluated and appeared to be in some respiratory distress. Patient was placed on the playground monitor and noted to be in a sinus rhythm. Chest x-ray was performed and reveals evidence of congestive change and diffuse pulmonary infiltrates. Patient did receive 40 mg of IV Lasix. Blood cultures and lactate were performed. The patient was medicated with IV vancomycin and IV cefepime after review of previous records and consultation with the clinical pharmacist. Patient was given a DuoNeb treatment. Laboratory work reveals a normal WBC, slightly elevated troponin. Lactate is normal. Blood cultures are pending. The patient is maintaining her saturations on BiPAP. Patient is negative for COVID, RSV and influenza. I did discuss her case with the hospitalist service who will evaluate the patient for admission and further management. MONITORING: An order for cardiac monitoring was placed and the patient is noted to be in a normal sinus rhythm at 84 beats per minute. RADIOLOGY: Chest x-ray to my interpretation reveals patchy pulmonary infiltrates concerning for pneumonia and/or congestive heart failure. EKG: To my interpretation reveals a sinus rhythm with premature supraventricular complexes at 79 bpm. Left anterior fascicular block. Nonspecific T wave abnormality. QTc of 405. When compared to previous dated November 16, 2023, premature supraventricular complexes are new. DISPOSITION: Admission I have personally spent greater than 35 minutes of critical care time in the direct management of this patient. This includes bedside care, interpretation of diagnostic studies, and testing, discussion with consultants, patient, and family members, and other required patient management activities. This 35 minutes is in excess of all separately billable procedures. Past Med/Surg History Medical History (Updated 11/19/23 @ 16:30 by Maia Natarajan MD) Idiopathic interstitial pneumonia Acute hypoxemic respiratory failure Gross hematuria CKD (chronic kidney disease) stage 4, GFR 15-29 ml/min History of MRSA infection History of COVID-19 History of traumatic subdural hematoma Symptomatic anemia Recurrent UTI Acute on chronic anemia Candiduria Cystitis Admitted to intensive care unit Sepsis Left knee DJD Closed left hip fracture s/p repair UTI (urinary tract infection) Atrial fibrillation with RVR Volume depletion CRISPIN (acute kidney injury) Sepsis Gram-negative bacteremia Paroxysmal A-fib DVT prophylaxis T2DM (type 2 diabetes mellitus) HTN (hypertension) HLD (hyperlipidemia) Hypothyroidism Surgical History History of hysterectomy History of cholecystectomy History of breast biopsy Family History Mother Breast cancer Hypertension Father , at 92 No problems noted. Social History Smoking Status: Never smoker Second Hand Exposure: No; Do You Dip or Chew Tobacco: No; Tobacco Cessation Education Requested by Patient: No Hx Alcohol Use: No Hx Substance Use: No Preferred Language: Wolof Communication Ability: Effective Ammonia Nitrate Operator Required: No Beliefs That Will Affect Care: None marital status: / Current Living Situation: Long-Term [facility] How many Children do You have: 1 Other Information That Helps Us Care for You: Yes other: ambulates with cane Feels Safe at Home: Yes Assistive Devices: Oxygen - Continuous Assistive Devices Comment: 02 for 1 week, after patient was discharged from the hospital Allergies Allergies Allergy/AdvReac Type Severity Reaction Status Date / Time amoxicillin Allergy Intermediate Unknown Verified 08/18/23 14:25 sulfamethoxazole Allergy Intermediate Rash Verified 08/18/23 14:25 tetanus toxoid, adsorbed Allergy Intermediate HIVES Verified 08/18/23 14:25 tetracycline Allergy Intermediate hives Verified 08/18/23 14:25 trimethoprim Allergy Intermediate Rash Verified 08/18/23 14:25 rosuvastatin AdvReac Intermediate Muscle Verified 08/18/23 14:25 stiffness Home Meds Home Medications Medication Instructions Recorded Confirmed docusate sodium 100 mg capsule 100 mg PO HS 06/25/20 11/19/23 (Col-Rite) glipizide 5 mg tablet 10 mg PO QAM 06/25/20 11/19/23 cholecalciferol (vitamin D3) 25 50 mcg PO QAM 11/09/20 11/19/23 mcg (1,000 unit) tablet (Vitamin D3) vit C 250 mg-vit E 90 mg-zinc 40 1 tab PO BID 11/09/20 11/19/23 mg-copper 1 [id number] capsule (PreserVision AREDS-2) Saccharomyces boulardii 250 mg 250 mg PO DAILY 03/15/22 11/19/23 capsule acetaminophen 500 mg tablet 1,000 mg PO Q8H PRN FEVER 03/15/22 11/19/23 (Tylenol Extra Strength) >100.5/MODERATE PAIN amiodarone 200 mg tablet 200 mg PO QAM 03/15/22 11/19/23 ferrous sulfate 325 mg (65 mg 325 mg PO QAM 03/15/22 11/19/23 iron) tablet ketoconazole 2 % shampoo 1 ea topical 3XWK 03/15/22 11/19/23 cyanocobalamin (vitamin B-12) 1,000 mcg sublingual DAILY 10/27/22 11/19/23 1,000 mcg sublingual tablet mupirocin 2 % topical ointment 1 applic topical HS 10/27/22 11/19/23 diclofenac sodium 1 % topical gel 1 ea topical Q12 PRN joint pain 02/08/23 11/19/23 aspirin 81 mg chewable tablet 81 mg PO 3XWK 11/11/23 11/19/23 (Aspirin Childrens) levothyroxine 112 mcg tablet 112 mcg PO DAILYBB 11/11/23 11/19/23 loperamide 2 mg tablet 2 mg PO Q8 PRN Diarrhea 11/11/23 11/19/23 loratadine 10 mg tablet 10 mg PO Q OTHER DAY 11/11/23 11/19/23 melatonin 3 mg capsule 3 mg PO HS 11/11/23 11/19/23 menthol 0.44 %-zinc oxide 20.6 % 1 applic topical QS 11/11/23 11/19/23 topical ointment (Calmoseptine) metoprolol tartrate 25 mg tablet 12.5 mg PO BID 11/11/23 11/19/23 metronidazole 0.75 % topical cream 1 applic topical BID 11/11/23 11/19/23 omeprazole 20 mg capsule,delayed 20 mg PO QAM 11/11/23 11/19/23 release peg 400-propylene glycol (PF) 0.4 1 drp OPB .Q 2HRS WHILE AWAKE 11/11/23 11/19/23 %-0.3 % eye drops in a dropperette (Systane (PF)) psyllium 1 ea PO DAILY 11/11/23 11/19/23 rosuvastatin 10 mg tablet 10 mg PO HS 11/11/23 11/19/23 sertraline 25 mg tablet 25 mg PO QAM 11/11/23 11/19/23 tobramycin-dexamethasone 0.3 %-0.1 1 applic OPB HS 11/11/23 11/19/23 % eye ointment (TobraDex) Previous Rx's Medication Instructions Recorded vibegron 75 mg tablet (Gemtesa) 75 mg PO DAILY #90 tabs 09/28/23 lactobacillus combination no.4 3 3,000 mmu cells PO DAILY 1 week #7 11/17/23 billion cell capsule (Probiotic) caps warfarin 1 mg tablet 1.5 mg (1.5 x 1 mg) PO DAILY #45 11/17/23 tabs Results & Data (ED) Vital Signs Vital Signs - 24 hr 11/19/23 08:27 11/19/23 08:30 11/19/23 08:30 Temperature 36.7 C Temperature Source Oral Pulse Rate 81 82 Pulse Rate [Apical] Respiratory Rate 23 Respiratory Effort / Characteristics Non-Labored Spontaneous Non-Labored Spontaneous Respiratory Depth Normal Normal Respiratory Pattern Regular Blood Pressure 109/44 L Blood Pressure [Left Arm] Blood Pressure Mean 65 Blood Pressure Mean [Left Arm] Blood Pressure Position Lying Blood Pressure Position [Left Arm] Pulse Oximetry 96 Oxygen Delivery Method Non-rebreather Non-rebreather Oxygen Flow Rate 15 15 Fraction of Inspired Oxygen Sepsis Recent Fever Within 48 Hours No Sepsis New/Unexplained Change in Mental Status No Sepsis Action Taken by Nursing No Action Required 11/19/23 08:46 11/19/23 09:57 11/19/23 10:01 Temperature Temperature Source Pulse Rate 81 82 Pulse Rate [Apical] Respiratory Rate 24 25 H Respiratory Effort / Characteristics Non-Labored Spontaneous Respiratory Depth Normal Respiratory Pattern Regular Blood Pressure Blood Pressure [Left Arm] Blood Pressure Mean Blood Pressure Mean [Left Arm] Blood Pressure Position Blood Pressure Position [Left Arm] Pulse Oximetry 92 94 Oxygen Delivery Method Non-rebreather Non-rebreather Oxygen Flow Rate 15 15 Fraction of Inspired Oxygen 60 Sepsis Recent Fever Within 48 Hours Sepsis New/Unexplained Change in Mental Status Sepsis Action Taken by Nursing 11/19/23 10:04 11/19/23 10:30 11/19/23 10:45 Temperature Temperature Source Pulse Rate Pulse Rate [Apical] 80 81 79 Respiratory Rate 26 H 24 21 Respiratory Effort / Characteristics Non-Labored Spontaneous Non-Labored Spontaneous Non-Labored Spontaneous Respiratory Depth Normal Normal Normal Respiratory Pattern Blood Pressure Blood Pressure [Left Arm] 124/73 128/69 111/51 L Blood Pressure Mean Blood Pressure Mean [Left Arm] 90 88 71 Blood Pressure Position Blood Pressure Position [Left Arm] Sitting Sitting Sitting Pulse Oximetry 93 92 95 Oxygen Delivery Method BiPAP BiPAP BiPAP Oxygen Flow Rate Fraction of Inspired Oxygen Sepsis Recent Fever Within 48 Hours Sepsis New/Unexplained Change in Mental Status Sepsis Action Taken by Nursing 11/19/23 11:00 11/19/23 11:15 Temperature Temperature Source Pulse Rate Pulse Rate [Apical] 81 84 Respiratory Rate 22 25 H Respiratory Effort / Characteristics Non-Labored Spontaneous Non-Labored Spontaneous Respiratory Depth Normal Normal Respiratory Pattern Blood Pressure Blood Pressure [Left Arm] 114/51 L 128/60 Blood Pressure Mean Blood Pressure Mean [Left Arm] 72 82 Blood Pressure Position Blood Pressure Position [Left Arm] Sitting Sitting Pulse Oximetry 96 96 Oxygen Delivery Method BiPAP BiPAP Oxygen Flow Rate Fraction of Inspired Oxygen Sepsis Recent Fever Within 48 Hours Sepsis New/Unexplained Change in Mental Status Sepsis Action Taken by Long-Term Medications Current Medication List: was personally reviewed by me Laboratory Data Attestation: I reviewed the patient's lab results. 11/19/23 08:44 11/19/23 08:44 Lab Results 11/19/23 11/19/23 11/19/23 Range/Units 08:44 09:53 10:19 WBC 7.15 (4.8-10.8) K/ul RBC 3.37 L (4.20-5.40) M/uL Hgb 8.6 L (12.0-16.0) g/dl Hct 29.8 L (37.0-47.0) % MCV 88.4 (80.0-100.0) fL MCH 25.5 (25.0-34.0) pg MCHC 28.9 L (32.0-36.0) g/dL RDW Std Deviation 57.2 H (36.4-46.3) fL RDW Coeff of Hope 18.4 H (11.5-14.5) % Plt Count 157 (130-400) K/uL MPV 11.3 (9.4-12.4) fL Immature Gran % (Auto) 0.7 % Neut % (Auto) 68.3 % Lymph % (Auto) 23.1 % [place] % (Auto) 7.0 % Eos % (Auto) 0.6 % Baso % (Auto) 0.3 % Neut # (Auto) 4.89 (1.40-6.50) K/uL Lymph # (Auto) 1.65 (1.20-3.40) K/uL [place] # (Auto) 0.50 (0.11-0.59) K/uL Eos # (Auto) 0.04 (0.00-0.50) K/uL Baso # (Auto) 0.02 (0.00-0.20) K/uL Immature Gran # (Auto) 0.05 (0.01-0.20) K/uL Absolute Nucleated RBC 0.02 (0.00-0.12) K/uL Nucleated RBC % (auto) 0.3 % Polychromasia 1+ Tear Drop Cells 1+ PT 26.2 H (9.0-12.0) Seconds INR 2.5 H (0.9-1.1) APTT 28 (21-31) Seconds PTT Ratio 1.0 ABG pH (7.35-7.45) ABG pCO2 (35-46) mmHg ABG pO2 (80-95) mmHg ABG HCO3 (19-24) mmol/L ABG O2 Saturation (90-95) % ABG Base Excess (-9-1.8) mEq/L Adrian Test (Pos) Oxygen Given Sodium 144 (136-145) mmol/L Potassium 4.6 (3.5-5.1) mmol/L Chloride 107 (98-107) mmol/L Carbon Dioxide 29 (21-32) mmol/L Anion Gap 8 (3-11) BUN 43 H (6-23) mg/dl Creatinine 1.25 H (0.6-1.2) mg/dl Est Cr Clr Drug Dosing 26.3 ml/min Est GFR ( Amer) 44.2 ml/min Est GFR (Non-Af Amer) 38.1 ml/min BUN/Creatinine Ratio 34.4 H (10-20) Glucose 183 H (70-99(Fasting)) mg/dl Lactate 1.7 (0.4-2.0) mmol/L Calcium 8.7 (8.6-10.3) mg/dl Magnesium 2.1 (1.7-2.4) mg/dl Total Bilirubin 0.9 (0.2-1.0) mg/dl AST 43 H (13-39) U/L ALT 29 (7-52) U/L Alkaline Phosphatase 98 (34-104) U/L Troponin I High Sens 42.0 H (0-14) pg/ml B-Natriuretic Peptide 592 H (0-100) pg/ml Total Protein 5.5 L (6.0-8.3) gm/dl Albumin 3.0 L (3.4-5.0) gm/dl Globulin 2.5 (2.5-4.0) gm/dl Albumin/Globulin Ratio 1.2 (0.9-2) Procalcitonin 0.58 H (0-0.5) ng/ml SARS-CoV-2 (PCR) NEGATIVE (Negative) Influenza Type A (PCR) Negative (Neg) Influenza Type B (PCR) Negative (Neg) RSV (RT-PCR) Negative (Neg) 11/19/23 11/19/23 Range/Units 10:27 11:12 WBC (4.8-10.8) K/ul RBC (4.20-5.40) M/uL Hgb (12.0-16.0) g/dl Hct (37.0-47.0) % MCV (80.0-100.0) fL MCH (25.0-34.0) pg MCHC (32.0-36.0) g/dL RDW Std Deviation (36.4-46.3) fL RDW Coeff of Hope (11.5-14.5) % Plt Count (130-400) K/uL MPV (9.4-12.4) fL Immature Gran % (Auto) % Neut % (Auto) % Lymph % (Auto) % [place] % (Auto) % Eos % (Auto) % Baso % (Auto) % Neut # (Auto) (1.40-6.50) K/uL Lymph # (Auto) (1.20-3.40) K/uL [place] # (Auto) (0.11-0.59) K/uL Eos # (Auto) (0.00-0.50) K/uL Baso # (Auto) (0.00-0.20) K/uL Immature Gran # (Auto) (0.01-0.20) K/uL Absolute Nucleated RBC (0.00-0.12) K/uL Nucleated RBC % (auto) % Polychromasia Tear Drop Cells PT (9.0-12.0) Seconds INR (0.9-1.1) APTT (21-31) Seconds PTT Ratio ABG pH 7.39 (7.35-7.45) ABG pCO2 46 (35-46) mmHg ABG pO2 69 L (80-95) mmHg ABG HCO3 28 H (19-24) mmol/L ABG O2 Saturation 93.3 (90-95) % ABG Base Excess 2.5 H (-9-1.8) mEq/L Adrian Test Pos (Pos) Oxygen Given 15L Sodium (136-145) mmol/L Potassium (3.5-5.1) mmol/L Chloride (98-107) mmol/L Carbon Dioxide (21-32) mmol/L Anion Gap (3-11) BUN (6-23) mg/dl Creatinine (0.6-1.2) mg/dl Est Cr Clr Drug Dosing ml/min Est GFR ( Amer) ml/min Est GFR (Non-Af Amer) ml/min BUN/Creatinine Ratio (10-20) Glucose (70-99(Fasting)) mg/dl Lactate (0.4-2.0) mmol/L Calcium (8.6-10.3) mg/dl Magnesium (1.7-2.4) mg/dl Total Bilirubin (0.2-1.0) mg/dl AST (13-39) U/L ALT (7-52) U/L Alkaline Phosphatase (34-104) U/L Troponin I High Sens 44.3 H (0-14) pg/ml B-Natriuretic Peptide (0-100) pg/ml Total Protein (6.0-8.3) gm/dl Albumin (3.4-5.0) gm/dl Globulin (2.5-4.0) gm/dl Albumin/Globulin Ratio (0.9-2) Procalcitonin (0-0.5) ng/ml SARS-CoV-2 (PCR) (Negative) Influenza Type A (PCR) (Neg) Influenza Type B (PCR) (Neg) RSV (RT-PCR) (Neg) Administered Medications Albuterol (Albut/Ipratrop 3mg/0.5mg Neb 3 Ml Vial) 3 ml NEB Q4R [facility]; Protocol Stop: 12/19/23 14:59 Last Admin: 11/19/23 15:19 Dose: 3 ml Documented By: REGIS Aspirin (Aspirin 81 Mg Chew) 81 mg PO [id number] [facility] Stop: 12/19/23 14:29 Last Admin: 11/19/23 15:38 Dose: 81 mg Documented By: PAUL Benzonatate (Benzonatate 100 Mg Capsule) 100 mg PO TID [facility] Stop: 12/19/23 13:59 Last Admin: 11/19/23 15:38 Dose: 100 mg Documented By: MTP Methylprednisolone 40 mg/ (Syringe) 0.64 mls @ 1.5 mls/min IV Q8H NO Stop: 12/19/23 13:59 Last Admin: 11/19/23 15:38 Dose: 1.5 mls/min Documented By: MTP Discontinued Medications Acetaminophen (Acetaminophen 500 Mg Tab) 1,000 mg PO Q8H NO Stop: 12/19/23 14:54 Last Admin: 11/19/23 15:39 Dose: 1,000 mg Documented By: MTP Albuterol (Albut/Ipratrop 3mg/0.5mg Neb 3 Ml Vial) 3 ml INH NOW STA Stop: 11/19/23 09:07 Last Admin: 11/19/23 09:51 Dose: 3 ml Documented By: CC Furosemide (Furosemide 40 Mg/4 Ml Vial) 40 mg IV ONE ONE Stop: 11/19/23 09:43 Last Admin: 11/19/23 10:39 Dose: 40 mg Documented By: CC Cefepime HCl (Maxipime) 2,000 mg in 20 mls @ 5 mls/min IV NOW STA; Protocol Stop: 11/19/23 11:03 Last Admin: 11/19/23 11:17 Dose: 5 mls/min Documented By: CC Vancomycin HCl 1,250 mg/ (Sodium Chloride) 275 mls @ 200 mls/hr IV NOW STA Stop: 11/19/23 12:26 Last Admin: 11/19/23 11:23 Dose: 200 mls/hr Documented By: CC Acetaminophen (Ofirmev) 1,000 mg in 100 mls @ 400 mls/hr IV NOW STA Stop: 11/19/23 12:19 Last Admin: 11/19/23 15:04 Dose: Not Given Documented By: MTP Acetaminophen (Ofirmev) 1,000 mg in 100 mls @ 400 mls/hr IV NOW STA Stop: 11/19/23 15:36 Last Admin: 11/19/23 15:40 Dose: Not Given Documented By: MTP Imaging Data Radiologist's Impression: Chest X-Ray 11/19/23 09:06 XR chest 1V portable HISTORY: Dyspnea COMPARISON: Chest 11/14/2023. FINDINGS: There are low lung volumes. No pneumothorax. Small bilateral pleural effusions again noted. The heart remains enlarged. Mitral annulus calcifications are present. No acute fractures. Multifocal patchy bilateral airspace opacities have slightly progressed. IMPRESSION: 1. Multifocal patchy bilateral airspace opacities have slightly progressed. 2. Small bilateral pleural effusions again noted. ACT 112: Negative or not required by law. Electronically signed by: Donato Duval M.D. 11/19/2023 10:22 AM Discharge Plan Visit Data Chief Complaint: Shortness of Breath/Dyspnea Stated Complaint: DECRESSED MENTAL STATUS ED Provider: Maia Natarajan Discharge Problem: Acute hypoxic respiratory failure, Atypical pneumonia, Pulmonary vascular congestion Patient Disposition: Admitted As Inpatient Discharge Instructions Interventions: ED Discharge Assessment Last Done: 11/19/23 12:44
[2023-11-19] MEDS ORDERED: GLUCOSE 10 TAB/TUBE PO PRN (20:13)
[2023-11-19] MEDS ORDERED: CARBOHYDRATES FOR HYPOGLYCEMIA PO PRN (20:13)
[2023-11-19] MEDS ORDERED: GLUCAGON FOR INJ 1 MG VIAL SQ PRN (20:13)
[2023-11-19] MEDS ORDERED: ACETAMINOPHEN 500 MG TAB PO SCH (21:00)
[2023-11-19] MEDS: metroNIDAZOLE 0.75% TOPICAL GEL 45 GM TUBE TOP SCH (22:00)
[2023-11-19] MEDS: MUPIROCIN 2% OINT 22 GM TUBE TOP SCH (22:00)
[2023-11-19] MEDS: METOPROLOL TARTRATE 25 MG TAB PO SCH (23:28)
[2023-11-20] MEDS: CEFEPIME 1,000 MG in SYRINGE 0 ML IV SCH (00:06)
[2023-11-20] MEDS: guaiFENesin 600 MG TABCR PO SCH (00:18)
[2023-11-20] MEDS: DOCUSATE SODIUM 100 MG CAP PO SCH (00:18)
[2023-11-20] MEDS: ROSUVASTATIN CALCIUM 10 MG TAB PO SCH (00:20)
[2023-11-20] MEDS: ACETAMINOPHEN 500 MG TAB PO SCH (00:20)
[2023-11-20] MEDS: TOBRAMYCIN/DEXAMETHASONE OPH OINT PER APPLN CHARGE OPB SCH (00:20)
[2023-11-20] MEDS: CEROVITE ADV FORMULA TAB PO SCH (00:20)
[2023-11-20] MEDS: INSULIN ASPART PER UNIT CHARGE SC SCH (06:46)
--- OUTSIDE RECORDS SUMMARY | 2023-11-20 07:08 | External Medical Summary | Summary of Care ---
Author Name Unknown Organization [facility] Address [address] [place] [place] [address] Phone [phone] Care Team Providers Care Intelligence Agent Name Role Phone Luis Whalen DO Primary Care Provider [phone] Reason for Visit * Reason Onset Date Comments Appointment Canceled 11/17/2023 Encounter Details Date Type Department Care Team (Late st Contact Info) Description 11/17/2023 Telephone Hematology/Oncology [facility] [place] [address] [place] [phone] Juventino Sarah MD [address] [place] [address] Appointment Canceled Allergies Active Allergy Reactions Criticality Noted Date Comments Amoxicillin 10/21/2022 Sulfamethoxazole-Trimethop rim Rash 10/24/2016 Sulfamethoxazole 11/28/2020 Tetanus Toxoid Other (Please comment) Medium 02/17/2001 Large local reaction ISTOMMY VELASCOA Anne 02/17/2001 11:46 am pt has large reddened area , warm to touch on right Deltoid where she was given tetanus injection 1 week ago. Seen by Dr. Otero , felt it was areaction to tetanus, but gave a couple days of Tequin Tetracycline Rash Medium 06/28/2000 Trimethoprim 11/28/2020 documented as of this encounter (statuses as of 11/18/2023) Medications Medication Sig Dispensed Refills Start Date [...] 10/29/19 24 Active Probiotic 250 MG Oral CapsuleIndications:Recur rent UTI Take 250 mg by mouth in the morning. 30 Capsule 11 11/10/19 24 Active documented as of this encounter (statuses as of 11/18/2023) Active Problems Problem Noted Date Diagnosed Date [...] as of this encounter (statuses as of 11/18/2023) Resolved Problems Problem Noted Date Diagnosed Date [...] as of this encounter (statuses as of 11/18/2023) Immunizations Name Administration Dates Next Due COVID-19 [...] encounter Miscellaneous Notes * Telephone Encounter - Robert Dyer RN - 11/18/2023 10:46 AM EST Hgb 8.0 today. Would recommend patients appt be moved up from 12/02/23 if possible, otherwise hgb may continue to decrease. Left message for Janeth to return call to discuss. * Addendum Note - Robert Dyer RN - 11/18/2023 8:41 AM ESTAddended by: ROBERT DYER on: 11/18/2023 08:41 AM Modules accepted: Orders * Telephone Encounter - Alaina Russell OSA - 11/17/2023 2:43 PM EST Patients daughter in law Janeth called in stating that she needs to cancel patients appt for her injection due to patient recently got discharged from the hospital with CHF and she is getting over pneumonia and going to a skilled facility to get stronger. Janeth knows right now that patient is too weak and transportation is going to be an issue for them. Janeth is asking if its ok to wait till 12/02/23 to get next injection or should something be done sooner for patient? Please advise? Thank you. GARCIAI-/Nursing documented in this encounter Plan of Treatment Upcoming Encounters Date Type Department Care Team (Late st Contact Info) Description 11/18/2023 11:00 AM EST Retirement Visit [facility], [address] [place] [address] Angélica Hackett MD [address] [place] [address] [place] [address] 11/24/2023 4:45 PM EST Anticoagulation Pharmacy Call Center WB [address] [facility] [place] [address] [facility] 58 60 [facility] [place] [address] 12/01/2023 8:00 AM EDT Laboratory Lab [facility] [address] [place] [address] [facility] Mobile [facility] [address] [place] [address] 12/02/2023 1:45 PM EDT Immunization/Injection Hematology/Oncology Treatment, [place] [address] [place] [phone] Nurse, Med 4 [address] [place] [address] 12/06/2023 1:00 PM EDT Office Visit Ophthalmology, [facility] [address] [facility] [place] [address] Wu Varma, DO [address] [place] [address] 12/15/2023 8:00 AM EDT Laboratory Lab [facility] [address] [place] [address] [facility], [facility] Mobile [facility] [address] [place] [address] 12/16/2023 1:45 PM EDT Immunization/Injection Hematology/Oncology Treatment, [address] [phone] Nurse, Med 4 [address] [place], [place] [address] 12/29/2023 8:00 AM EDT Laboratory Lab [facility] [address] [place] [address] [facility] Mobile [facility] [address] [place] [address] 12/30/2023 1:45 PM EDT Immunization/Injection Hematology/Oncology Treatment, [place] [address] [place] [phone] Nurse, Med 4 [address] [place] [address] 01/05/2024 3:40 PM EDT Office Visit Family Practice [facility] [place] [address] [facility] [place] [address] Luis Whalen DO [address] [facility] [place] [address] 03/16/2024 10:45 AM EDT Office Visit Hematology/Oncology [facility] [place] [address] [facility] [place] [phone] Juventino Sarah MD 200 [facility] [place] [address] Scheduled Orders Name Type Priority Associated Diagnoses Orde r Schedule CBC WITH WBC DIFFERENTIAL Lab STAT 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) Every 2 Weeks for 26 Occurrences starting 11/18/2023 until 11/17/2024, 1 completed Health Maintenance Due Date Last Done Comments Zoster Vaccines (2 of 3) 09/24/2008 07/30/2008 Nephrology Referral 10/05/2014 10/05/2013 Albumin/Creatinine Ratio 04/06/2020 019, 06/08/2018, 07/01/2017, Additional history exists Diabetic Foot Exam 03/20/2021 03/20/2020, 0 03/20/2019, 02/28/2018, Additional history exists COVID-19 Vaccine ( season) 2023 03/17/2023, 08/04/2022, 10/19/2020, Additional history exists Influenza Vaccine (FLU shot) (#1) 2023 07/04/2021, 06/18/2021, 05/22/2020, Additional history exists Depression Screening 10/21/2023 10/21/2022 PTH 02/04/2024 02/03/2023, 07/0 05/2020, 06/03/2018, Additional history exists Phosphate 02/04/2024 02/03/2023, 07/0 05/2020, 08/11/2019, Additional history exists Diabetic Eye Exam 02/23/2024 02/22/2023, , 02/11/2021, Additional history exists HbA1c 03/07/2024 09/06/2023, 01/18, 10/21/2022, Additional history exists TSH 09/06/2024 09/06/2023, 01/18, 05/15/2022, Additional history exists Hgb 11/17/2024 11/18/2023, 10/21, 10/20/2023, Additional history exists Pneumococcal Vaccine: 65+ Years [...] Documents on File Type Date Recorded Patient Tenter Frame Back Tender Expl anation Power of Fermentologist 11/28/2003 Care Teams Intelligence Agent Relationship Specialty Start Date End Date Luis Whalen DO [address] [place] [address] PCP - General Family Medicine 11/09/18 documented as of this encounter
--- OUTSIDE RECORDS SUMMARY | 2023-11-20 07:08 | External Medical Summary | Summary of Care ---
Author Name Unknown Organization [facility] Address [address] [facility] [address] Phone [phone] Care Team Providers Care Photographic Editor Name Role Phone FernandoLuis bai Primary Care Provider [phone] Reason for Visit * Reason Onset Date Comments Custodial Visit - Admission 11/18/2023 Encounter Details Date Type Department Care Team (Latest Contact Info) Description 11/18/2023 11:00 AM EST Custodial Visit [facility] [place] [address] [place] [address] Angélica Hackett MD [address] [place] [address] [place] [phone] Atypical pneumonia*; Type 2 diabetes mellitus with stage 4 chronic kidney disease, without long-term current use of insulin (HCC); 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 ([facility]); Paroxysmal atrial fibrillation ([facility]); Mild episode of recurrent major depressive disorder ([facility]); Hypertensive kidney disease with chronic kidney disease stage IV ([facility]); Warfarin anticoagulation; Acquired hypothyroidism; H/O traumatic subdural hematoma Allergies Active Allergy Reactions Criticality Noted Date Comments Amoxicillin 10/21/2022 Sulfamethoxazole-Trimethop rim Rash 10/24/2016 Sulfamethoxazole 11/28/2020 Tetanus Toxoid Other (Please comment) Medium 02/17/2001 Large local reaction ISSHANIQUE VELASCO 02/17/2001 11:46 am pt has large reddened [...] morning. 30 Capsule 11 11/10/19 24 Active Gemtesa 75 MG Oral Tablet (Vibegron) Take 1 Tablet by mouth in the morning. 0 11/18/19 24 Active documented as of this encounter [...] Problem Noted Date Diagnosed Date Resolved Date Chronic diastolic congestive heart failure 11/18/2023 11/18/2023 Type 2 diabetes mellitus wit h stage [...] as of this encounter Progress Notes * Angélica Hackett MD - 11/18/2023 12:28 PM EST ADMISSION HISTORY and PHYSICAL TRANSITION EVENT: Type: SNF admission Date: November 17 Code Status: No Code Name: Radha Cardenas Date of : 1935 This note pertains to care provided at [facility]. Please see facility medical record for original note. This note is not to be edited or addended in [employer]. Editing or addending needs to occur in the facilities medical record. S: Radha Cardenas had been admitted to [facility] from [facility] on for PT and OT. Recently admitted to [facility] on 11/11/23 because of atypical pneumonia and acute exacerbation of diastolic CHF and wastransferred here and admitted on 11/17/2023. Patient of Dr. Luis Whalen with PMH of type 2 diabetes mellitus with stage IV CKD, hypertension, PAF on Coumadin, hypothyroidism, dyslipidemia, anemia of CKD on Aranesp, h/o SDH who presented to the ED with increased shortness of breath. Patient livesat [facility] and her oxygen saturation was noted to be in the 70s. She was placed on oxygen in the ED and it improved to 94%. In the ED, CXR was suggestive of pulmonary vascular congestion. BNP was 670 and her INR was 5.8. There was concern for acute exacerbation of diastolic CHF and she was given IV Lasix as well as ceftriaxone for concern of UTI. She was given oral vitamin K in the ED. Her A1C was noted to be 6.6. Patient was seen by cardiology. Echocardiogram showed EF of 60-65% without wall motion abnormalities. Cardiology did not feel she had CHF and did not recommend further diuresis. Chest CT was done 11/14/23, which showed multifocal irregular and patchy ground- glass airspace opacities with interstitial thickening favoring atypical pneumonia. It also showed small bilateral pleural effusions, left greater than right, mild mediastinal lymphadenopathy which may be reactive, and small amount of ascites within the upper abdomen with splenomegaly. She was treated for atypical pneumonia with ceftriaxone and azithromycin was added on 11/14/23. She was charged to complete 2 more daysof azithromycin and cefdinir orally. Blood and urine cultures were negative. Patient did improve. She was noted to be confused during hospital stay, which has happened in the past with infections. She was restarted on Coumadin and INR was therapeutic on discharge. Patient seen in her room this morning. She states she is feeling nauseated, which appears she also reported while admitted. Started after she took her morning medications. She states she did eat breakfast. She has not had any vomiting. She denies any chest pain, shortness of breath, or abdominal pain. She denies fever or chills. Past Medical History: Patient Active Problem List Diagnosis Code ADVANCE DIRECTIVE INFORMATION Actinic keratosis L57.0 History of MRSA infection Z86.14 Type 2 diabetes mellitus with hemoglobin A1c goal of less than 8.0% ([facility]) E11.9 Acquired hypothyroidism E03.9 Essential hypertension with goal blood pressure less than 140/90 I10 Pure hypercholesterolemia E78.00 Statin intolerance Z78.9 Paroxysmal atrial fibrillation (HCC) I48.0 Mild episode of recurrent major depressive disorder ([facility]) F33.0 Type 2 diabetes mellitus with stage [...] chronic kidney disease treated with erythropoietin (HCC) N18.4, D63.1 History of 2019 novel coronavirus disease (COVID-19) Z86.16 Protein-calorie malnutrition (HCC) E46 Recurrent UTI N39.0 Current Outpatient Medications Medication Sig Dispense Refill Gemtesa 75 MG Oral Tablet (Vibegron) Take 1 Tablet by mouth in the morning. GLUCOMETER DIABETES CARE KIT as directed 1 [...] mouth daily with breakfast. 30 Tab 0 Diclofenac Sodium 1 % External Gel (Voltaren) [...] ON MON,WED,FRI *HEART HEALTH* 12 Tablet 5 Metamucil Smooth [...] ON WED, , ) 20 Tablet 1 Warfarin Sodium 2 MG Oral Tablet (Coumadin) Take as directed by anticoagulation clinic (1 TAB BY MOUTH FOUR TIMES A WEEK ON WED, WED, WED, WED) 16 Tablet 4 PreserVision AREDS 2 Oral [...] mouth every other day. 15 Tablet 3 Probiotic 250 MG Oral Capsule Take 250 mg by mouth in the morning. 30 Capsule 11 No current facility-administered medications for this visit. [...] Rash Amoxicillin Bactrim [Sulfamethoxazole-Trimethoprim] Rash Sulfamethoxazole Trimethoprim Social History Tobacco Use Smoking status: Never Smokeless tobacco: Never Substance Use Topics Alcohol use: Yes Comment: very rare Vaping/E-Cigarette Use Vaping/E-Cigarette Use Never User Passive Exposure No Counseling Given? No Vaping/E-Cigarette Substances Nicotine No Other No Flavoring No THC No Cannabidiol (CBD) No Vaping/E-Cigarette Devices Disposable No Pre-filled or Refillable Cartridge No Refillable Tank No Pre-filled Pod No Past Surgical History: Procedure Laterality Date BIOPSY OF BREAST, OPEN 11/19/2003 benign BREAST BIOPSY-STEREOTACTIC 11/14/2003 [facility] COLONOSCOPY, GI REFERRAL OP 08/03/2005 [facility] DENTAL SURGERY PROCEDURE NEC Dental Surgery Procedure DESTRUCTION PREMALIGNANT LESION 2-14 EA DEXA SCAN/BONE MINERAL AXIAL 04/14/2006 nl repeat in 2008 DIABETIC EYE EXAM 04/25/2004 Jaron Estrada MD HAND WOVEN [employer]PET AND RUG MENDER PAP SCREEN 05/22/2010 neg/stevenson INFORMATION 11/30/2001 PAP test WNL INJECT DX/THER SUBSTANCE INTERLAMINAR LUMBAR/SACRAL W IMAGE GUIDE 12/20/2017 INJECTION SPINE LUMBAR OR SACRAL performed by Jamar Sahu, DO at OR [facility] INJECT DX/THER SUBSTANCE INTERLAMINAR LUMBAR/SACRAL W IMAGE [...] OUTSIDE PROCEDURE 11/10/2010 normal repeat one year [facility] MAMMOGRAM OUTSIDE PROCEDURE 11/11/2011 normal repeat one year [facility] MAMMOGRAM OUTSIDE PROCEDURE 11/15/2013 normal repeat one year [facility] OTHER ct of abd and pelvis on 11/09/2020 PAP SCREEN 10/14/1999 PAP SCREEN 03/28/2003 WNL PAP SCREEN 05/19/2004 WNL PAP SCREEN 07/16/2005 WNL PAP SCREEN 05/04/[address] Stevenson PAP SMEAR, OUTSIDE PROCEDURE 05/14/2009 neg/elva MA LAPAROSCOPY, SURGICAL: CHOLECYSTECTOMY Family History Problem Relation Age of Onset Hypertension Mother age 88 Cancer Mother breast No Past Hx Father age 92 No Past Hx Sister Hypertension Brother Family Status Relation Status Mo at age 88 Fa at age 90 Sis Alive Bro Alive obese, diabetes Kwan Alive Sis (Not Specified) Bro (Not Specified) Review of Systems: Constitutional ROS: No change in weight, No fevers, sweats, or chills, and +generalized weakness Eye ROS: No recent significant change in vision and No eye pain, redness, discharge Ear ROS: No ear pain, No drainage, No tinnitus or vertigo, and No recent change in hearing Nose ROS: No history of frequent colds or sinusitis, No nasal stuffiness, No history of Hay Fever, and No significant epistaxis Mouth/Throat ROS: No bleeding gums, No thrush, or No sore throat Pulmonary ROS: No cough, sputum, or hemoptysis, No wheezing, and +recent admission with SOB/hypoxia/pneumonia Cardiovascular ROS: No chest pain, No orthopnea, No paroxysmal nocturnal dyspnea, No edema, No palpitations, No syncope, and +PAF Gastrointestinal ROS: No abdominal pain, No change in bowel habits, No significant heartburn, No hematemesis, No blood in stools or black tarry stools, No abdominal bloating or early satiety, No dysphagia, and +nausea Genito-Urinary Female ROS: No dysuria and No frequency Musculoskeletal/Extremities ROS: +OA Hematologic/Lymphatic ROS: No coagulation disorder, No abnormal bleeding, No chills, and +anemia ofCKD on Aranesp Skin/Integumentary ROS: No rash Neurologic ROS: No headaches, No seizures, and +delirium Endocrine ROS: +type 2 diabetes and hypothyroidism Psychiatric ROS: +depression/anxiety ADL skills: dependent Ambulates with walker OBJECTIVE: PHYSICAL EXAM: I reviewed the most recent facilities vitals. Refer to vital signs flowsheet in halfway chart.General: alert, no distress, and elderly female resting in bed Head: Normocephalic, No masses, lesions, tenderness or abnormalities Eye Exam: PERRLA, extraocular movements intact, conjunctiva are pink and non- injected, sclera clear Ears: External ears normal Nose: no mucosal erythema, no mucosal edema, no purulent discharge Oropharynx: no exudate, no erythema, lips, buccal mucosa, and tongue normal, and mucous membranes are moist Neck: supple, no adenopathy, no bruits Heart: no gallops and irregularly irregular Lungs: chest symmetric with normal AP diameter, no chest deformities noted, no chest wall tenderness, lungs clear to auscultation, decreased breath sounds Abdomen: abdomen soft, non-tender, normal bowel sounds, and no masses or organomegaly Extremities: no edema, no clubbing, no cyanosis Neuro Exam: alert and somewhat confused, no focal motor/sensory deficits ASSESSMENT: Atypical pneumonia (Primary)--improved. Complete azithromycin and cefdinir as directed. Type 2 diabetes mellitus with stage 4 chronic kidney disease, without long-term current use of insulin ([facility])--continue glipizide 10 mg daily. 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 Continue ferrous sulfate. Paroxysmal atrial fibrillation (HCC)--continue Coumadin. Rate controlled with metoprolol tartrate 12.5 mg twice daily and amiodarone 200 mg daily. Mild episode of recurrent major depressive disorder (HCC)--continue sertraline 25 mg daily Hypertensive kidney disease with chronic kidney disease stage IV ([facility])--blood pressure controlled with metoprolol tartrate 12.5 mg twice daily Warfarin anticoagulation Acquired hypothyroidism--continue levothyroxine 112 mcg daily. H/O traumatic subdural hematoma PLAN: 1. Continue present medication(s): Begin medication(s): Zofran 4 mg PO Q6H PRN nausea/vomiting for 7 days Schedule labs: CBC w/diff, CMP 2. Admission orders, medications, labs, hospital records and care plan reviewed. 3. Pot Sander consult, Physical Therapy, Occupational Therapy, and Speech Therapy ordered. 4. Care plan reviewed. 5. Advance Directives were discussed: The patient is a DNR 6. [facility] Home Treatment Given: Antibiotic Oral Azithromycin and cefdinir Electronically signed by: Angélica Hackett MD I spent a total of 52 minutes coordinating, documenting, and providing care for this patient excluding time spent in the performance of separately billed services or time spent by another provider/QHP. documented in this encounter Plan of Treatment Upcoming Encounters Date Type Department Care Team (Latest Contact Info) Description 11/18/2023 4:45 PM EST Anticoagulation Pharmacy Call Center 58[address] [place] [address] [facility] 58 [address] [place] [address] Paroxysmal atrial fibrillation (HCC)*; H/O traumatic subdural hematoma 12/01/2023 8:00 AM EDT Laboratory Lab Mobile Phlebotomy [facility] [address] [place], [place] [phone] [facility] Mobile [place] [address] [place], [place] [address] 12/02/2023 1:45 PM EDT Immunization/Injection Hematology/[facility] Treatment, [place] [address] [place] [phone] Nurse, Med [address] [facility] [place] [address] 12/02/2023 4:45 PM EDT Anticoagulation Pharmacy Call Center [address] [facility] [address] [place] [address] [address] [place] [address] 12/06/2023 1:00 PM EDT Office Visit Ophthalmology, [facility] [address] [facility] [place] [address] Wu Varma T, DO [address] [place] [address] 12/15/2023 8:00 AM EDT Laboratory Lab Mobile Phlebotomy [place] [address] [place] [address] [place] [address] [place] [address] 12/16/2023 1:45 PM EDT Immunization/Injection Hematology/[facility] Treatment, [place] [address] [place] [phone] Nurse, Med [address] [place] [address] 12/29/2023 8:00 AM EDT Laboratory Lab Mobile Phlebotomy [facility] [address] [place] [address] [address] 12/30/2023 1:45 PM EDT Immunization/Injection Hematology/[facility] Treatment, [place] 200 [facility] [place] [phone] Nurse, Med [address] [place] [address] 01/05/2024 3:40 PM EDT Office Visit Family Practice [facility] [place] [address] [place] [address] Luis Whalen, DO [address] [facility] [place] [address] 03/16/2024 10:45 AM EDT Office Visit Hematology/Oncolo gy [facility] [place] [address] [place] [phone] Juventino Sarah MD [address] [place] [address] Health Maintenance Due Date Last Done Comments [...] as of this encounter Visit Diagnoses Diagnosis Atypical pneumonia- Primary Pneumonia, organism unspecified Type 2 diabetes mellitus with stage 4 chronic kidney disease, without long-term current use of insulin (HCC) 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) Paroxysmal atrial fibrillation (HCC) Atrial fibrillation Mild episode of recurrent major depressive disorder (HCC) Hypertensive kidney disease with chronic kidney disease stage IV (HCC) Unspecified hypertensive kidney disease with chronic kidney disease stage I through stage IV, or unspecified Warfarin anticoagulation Long-term (current) use of anticoagulants Acquired hypothyroidism Unspecified hypothyroidism H/O traumatic subdural hematoma Personal history of other diseases of circulatory system Paroxysmal atrial fibrillation (HCC)- Primary Atrial fibrillation H/O traumatic subdural hematoma Personal history of other diseases of circulatory system documented in this encounter Advance Directives Documents on File Type Date Recorded Patient Csm Consultant Expl anation Power of Finished Goods Planner 11/28/2003 Care Teams Photographic Editor Relationship Specialty Start Date End Date Luis Whalen DO [address] [place] [address] [place] [address] PCP - General Family Medicine 11/09/18 documented as of this encounter
--- OUTSIDE RECORDS SUMMARY | 2023-11-20 07:08 | External Medical Summary | Summary of Care ---
Author Name Unknown Organization [facility] Address [address] [place] [address] Phone [phone] Care Team Providers Care Floor Broker Name Role Phone Koby Luis Dionne PEDRO Primary Care Provider [phone] Reason for Visit * Reason Comments Dosage Adjustment Via Phone (anticoag Cl inic) Encounter Details Date Type Department Care Team (Latest Contact Info) Description 11/18/2023 4:45 PM EST Anticoagulation Pharmacy Call Center [address] [place] [address] Ccp, [facility] 58 [address] [place] [address] Paroxysmal atrial fibrillation (HCC)*; H/O traumatic subdural [...] this encounter Progress Notes * Alaina Rodriguez, [facility] - 11/18/2023 12:19 PM EST Medication Therapy Disease Management - Anticoagulation Patient: Radha Iraheta [place] | : 1935 Shelter/SNF Patient Anticoagulation Encounter [facility] Fax sent to number listed above detailing plan of care below. Please notify clinic with any unusual brusing or bleeding, N/V/D, medication or diet changes or anymissed or extra doses of Coumadin. Subjective Patient-Reported Symptoms: Objective Current Warfarin Dose As of 11/18/2023 Warfarin maintenance plan: 2 mg (1 mg x 2) every Wed, Fri; 1.5 mg (1 mg x 1.5) all other days INR Result As of 11/18/2023 INR goal: 2.0-3.0 INR used for dosin.0 (11/18/2023) Assessment & Plan Warfarin Plan As of 11/18/2023 Full warfarin instructions: 2 mg every Wed, Fri; 1.5 mg all other days No change documented: Alaina Rodriguez RPh Next INR check: 12/02/2023 Repeat PT/INR in 2 week(s) Weekly dose: not changed Additional Dosing Information: Description Amiodarone decreased 12/10/2020 Alaina Rodriguez RPh Clinical Pharmacist 11/18/2023, 12:19 PM documented in this encounter Plan of Treatment Upcoming Encounters Date Type Department Care Team (Late st Contact Info) Description 12/01/2023 8:00 AM EDT Laboratory Lab Mobile Phlebotomy [facility] [address] [place] [address] [facility] [address] [place] [address] 12/02/2023 1:45 PM EDT Immunization/Injecti on Hematology/Oncology Treatment, [place] [address] [facility] [place] [address] Nurse, Med 200 [facility] [address] 12/06/2023 1:00 PM EDT Office Visit Ophthalmology, [facility] [place] 132 [facility] [place] [address] Wu Varma, DO 16 [place] [address] 12/15/2023 8:00 AM EDT Laboratory Lab Mobile Phlebotomy [facility] [address] [place] [address] [facility] [address] [place] [address] 12/16/2023 1:45 PM EDT Immunization/Injecti on Hematology/Oncology Treatment, [address] [place] [phone] Nurse, Med 4 [address] [place] [address] 12/29/2023 8:00 AM EDT Laboratory Lab Mobile Phlebotomy [facility] [address] [place] [address] [address] 12/30/2023 1:45 PM EDT Immunization/Injecti on Hematology/Oncology Treatment, [place] 200 [facility], [place] [phone] Nurse, Med 4 [address] [place] [address] 01/05/2024 3:40 PM EDT Office Visit Family Practice [facility] [place] [address] [place], [place] [address] Luis Whalen, DO [address] [place] [address] 03/16/2024 10:45 AM EDT Office Visit Hematology/Oncology [facility] [place] [address] [place] [phone] Juventino Sarah MD [address] [place] [address] Health Maintenance Due Date Last Done Comments [...] on File Type Date Recorded Patient Inspector Of Weights And Measures Expl anation Power of Accounting Bookkeeper 11/28/2003 Care Teams Floor Broker Relationship Specialty Start Date End Date Luis Whalen DO 200 [facility] [place] [address] PCP - General Family Medicine 11/09/18 documented as of this encounter"
--- OUTSIDE RECORDS SUMMARY | 2023-11-20 07:09 | External Medical Summary | Summary of Care ---
Author Name Unknown Organization [facility] Address [address] [facility] [place] [address] Phone [phone] Care Team Providers Care Flag Signalman Name Role Phone Luis Whalen DO Primary Care Provider [phone] Reason for Visit * Reason Onset Date Comments Appointment Canceled 11/17/2023 Encounter Details Date Type Department Care Team (Late st Contact Info) Description 11/17/2023 Telephone Hematology/Oncology [facility] [place] [address] [place] [phone] Juventino Sarah MD [address] [place] [address] Appointment Canceled Allergies Active Allergy Reactions Criticality [...] Addendum Note - Robert Dyer, RN - 11/18/2023 8:41 AM ESTAddended by: [...] sooner for patient? Please advise? Thank you. FYI-/Nursing documented in this encounter Plan of Treatment Upcoming Encounters Date Type Department Care Team (Late st Contact Info) Description 11/24/2023 4:45 PM EST Anticoagulation Pharmacy Call Center [address] [place] [address] Ccps, [facility] 58 [address] [place] [address] 12/01/2023 8:00 AM EDT Laboratory Lab Mobile [place] [facility] [address] [place] [address] [facility] Mobile [place] [address] [place] [address] 12/02/2023 1:45 PM EDT Immunization/Injection Hematology/Oncology Treatment, [place] [address] [place] [phone] Nurse, Med [address] [place] [address] 12/06/2023 1:00 PM EDT Office Visit Ophthalmology, [facility] [place] 132 [facility] [place] [address] Wu Varma, DO 16 [place] [address] 12/15/2023 8:00 AM EDT Laboratory Lab Mobile [place] [facility] [address] [place] [address] [facility] Mobile [facility] [address] [place] [address] 12/16/2023 1:45 PM EDT Immunization/Injection Hematology/Oncology Treatment, [place] 200 [place] [phone] Nurse, Med 4 [address] [place] [address] 12/29/2023 8:00 AM EDT Laboratory Lab Mobile Phlebotomy [place] [address] [place] [address] [facility] Mobile [facility] [address] [place] [address] 12/30/2023 1:45 PM EDT Immunization/Injection Hematology/Oncology Treatment, [place] 200 [facility], [place] [phone] Nurse, Med 4 [address] [place] [address] 01/05/2024 3:40 PM EDT Office Visit Family Practice [facility] [place] [address] [place], [place] [address] Luis Whalen, DO [address] [facility] [place], [place] [address] 03/16/2024 10:45 AM EDT Office Visit Hematology/Oncology [facility] [place] [address] [place] [phone] Juventino Sarah MD [address] [place] [address] Scheduled Orders Name Type Priority Associated Diagnoses Orde r Schedule CBC WITH WBC DIFFERENTIAL Lab STAT 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
--- OUTSIDE RECORDS SUMMARY | 2023-11-20 07:09 | External Medical Summary | Summary of Care ---
Author Name Unknown Organization [facility] Address [address] [place] [address] Phone [phone] Care Team Providers Care Firesetter Name Role Phone Luis Whalen DO Primary Care Provider [phone] Reason for Visit * Reason Onset Date Comments Advice 11/10/2023 Encounter Details Date Type Department Care Team (Late st Contact Info) Description 11/10/2023 Telephone Family Practice [facility] [place] 200 [facility] [place] [address] Luis Whalen DO 200 [facility] [place] [address] Advice Allergies Active Allergy Reactions Criticality Noted Date Comments Amoxicillin 10/21/2022 Sulfamethoxazole-Trimethop rim Rash 10/24/2016 Sulfamethoxazole 11/28/2020 Tetanus Toxoid Other (Please comment) Medium 02/17/2001 Large local reaction SHANIQUE MCMAHON H 02/17/2001 11:46 am pt has large reddened area , warm to touch on right Deltoid where she was given tetanus injection 1 week ago. Seen by Dr. Otero , felt it was areaction to tetanus, but gave a couple days of Tequin Tetracycline Rash Medium 06/28/2000 Trimethoprim 11/28/2020 documented as of this encounter (statuses as of 11/12/2023) Medications Medication Sig Dispensed Refills Start Date [...] as of this encounter (statuses as of 11/12/2023) Active Problems Problem Noted Date Diagnosed Date [...] as of this encounter (statuses as of 11/12/2023) Resolved Problems Problem Noted Date Diagnosed Date [...] as of this encounter (statuses as of 11/12/2023) Immunizations Name Administration Dates Next Due COVID-19 [...] encounter Miscellaneous Notes * Telephone Encounter - Kimmie Foy OSA - 11/12/2023 2:00 PM EST Sent to Wrong Pool. - Forwarding to Nurse / PCP * Telephone Encounter - Nury Wooten OSA - 11/10/2023 2:46 PM EST Rupinder called to say that starting from last night Radha was able to unable to transfer from bed tobathroom by herself. She needed assistance and she's having issues with her legs. She has a hard time standing. Also she has recently started dry heaving and having nausea, but she doesn't vomit food. It's mostly mucus and saliva. She'd also like to request a referral for speech evaluation. Please follow up and call Rupinder back if needed. Thank you. documented in this encounter Plan of Treatment Upcoming Encounters Date Type Department Care Team (Late st Contact Info) Description 11/17/2023 8:00 AM EST Laboratory Lab Mobile Phlebotomy [facility] [address] [place] [address] [facility] Mobile [facility] [address] [place] [address] 11/18/2023 2:00 PM EST Immunization/Injection Hematology/Oncology Treatment, [address] [place] [phone] Nurse, Med 4 [address] [place] [address] 11/24/2023 4:45 PM EST Anticoagulation Pharmacy Call Center [address] [place] [address] [facility] 58 [address] [place] [address] 12/01/2023 8:00 AM EDT Laboratory Lab Mobile Phlebotomy [facility] [address] [place] [address] [facility] Mobile [facility] [address] [place] [address] 12/02/2023 1:45 PM EDT Immunization/Injection Hematology/Oncology Treatment, [address] [place] [phone] Nurse, Med 4 [address] [place] [address] 12/06/2023 1:00 PM EDT Office Visit Ophthalmology, [facility] [address] [facility] [place] [address] Wu Varma, DO 16 [place] [address] 12/15/2023 8:00 AM EDT Laboratory Lab Mobile Phlebotomy [facility] [address] [place] [address] [facility] [address] [place] [address] 12/16/2023 1:45 PM EDT Immunization/Injection Hematology/Oncology Treatment, [place] 200 [facility] [place] [phone] Nurse, Med 4 [address] [place] [address] 12/29/2023 8:00 AM EDT Laboratory Lab Mobile Phlebotomy [facility] [address] [place] [address] [facility] Mobile [place] [address] [place] [address] 12/30/2023 1:45 PM EDT Immunization/Injection Hematology/Oncology Treatment, [place] 200 [facility] [place] [phone] Nurse, Med 4 [address] [place] [address] 01/05/2024 3:40 PM EDT Office Visit Family Practice [facility] [place] [address] [place] [address] Luis Whalen, DO [address] [facility] [place] [address] 03/16/2024 10:45 AM EDT Office Visit Hematology/Oncology [facility] [place] [address] [place] [phone] Juventino Sarah MD 200 [facility] [place] [address] Health Maintenance Due Date Last Done Comments [...] Documents on File Type Date Recorded Patient Welt Beater Expl anation Power of Parachute Harness Rigger 11/28/2003 Care Teams Firesetter Relationship Specialty Start Date End Date Luis Whalen DO [address] [place] [address] PCP - General Family Medicine 11/09/18 documented as of this encounter
--- OUTSIDE RECORDS SUMMARY | 2023-11-20 07:09 | External Medical Summary ---
Author Name Unknown Address Unknown Organization K0G:LABORATORY [facility] [address] [place] [address] Laboratory Report Ordering Provider Test Date Status SRINATH ADRIAN 11/18/2023 06:00:00 Final Warfarin Therapy
INR: 2 .0-3.0 conventional anticoagulation
INR: 2.5- 3.5 high intensity anticoagulation Observation Date Value Abnormality Reference (Units ) Status PT 11/18/2023 06:00:00 22.4 Above high normal 11 .6-15.2 (seconds) Final INR 11/18/2023 06:00:00 2.0 Above high normal 0. 8-1.2 Final Performing Location LABORATORY [facility] [address] [place] [address]
--- OUTSIDE RECORDS SUMMARY | 2023-11-20 07:09 | External Medical Summary | Summary of Care ---
Author Name Unknown Organization [facility] Address [address] [place] [address] Phone [phone] Care Team Providers Care Community Music Therapist Name Role Phone Luis Whalen DO Primary Care Provider [phone] Reason for Visit * Reason Onset Date Comments Appointment Canceled 11/17/2023 Encounter Details Date Type Department Care Team (Late st Contact Info) Description 11/17/2023 Telephone Hematology/Oncology [facility] [place] [address] [place] [phone] Juventino Sarah MD [address] [place] [address] Appointment Canceled Allergies Active Allergy Reactions Criticality [...] as of this encounter (statuses as of 11/17/2023) Medications Medication Sig Dispensed Refills Start Date [...] as of this encounter (statuses as of 11/17/2023) Active Problems Problem Noted Date Diagnosed Date [...] as of this encounter (statuses as of 11/17/2023) Resolved Problems Problem Noted Date Diagnosed Date [...] as of this encounter (statuses as of 11/17/2023) Immunizations Name Administration Dates Next Due COVID-19 [...] Miscellaneous Notes * Telephone Encounter - Alaina Russell OSA [...] sooner for patient? Please advise? Thank you. Anthony/Nursing documented in this encounter Plan of Treatment Upcoming Encounters Date Type Department Care Team (Late st Contact Info) Description 11/24/2023 4:45 PM EST Anticoagulation Pharmacy Call Center [address] [place] [address] Ccps, [facility] 58 60 [place] [address] 12/01/2023 8:00 AM EDT Laboratory Lab Mobile Phlebotomy [facility] [address] [place] [address] [facility] [place] [address] [place] [address] 12/02/2023 1:45 PM EDT Immunization/Injection Hematology/Oncology Treatment, [place] [address] [place] [phone] Nurse, Med [address] [place] [address] 12/06/2023 1:00 PM EDT Office Visit Ophthalmology, [facility] 132 [facility] [place] [address] Wu Varma, DO 16 [place], [place] [phone] 12/15/2023 8:00 AM EDT Laboratory Lab Mobile Phlebotomy [facility] [address] [place] [address] [facility] [place] [address] [place] [address] 12/16/2023 1:45 PM EDT Immunization/Injection Hematology/Oncology Treatment, [place] 200 [facility] [phone] Nurse, Med [address] [place] [address] 12/29/2023 8:00 AM EDT Laboratory Lab Mobile Phlebotomy [facility] [address] [place] [address] [facility] Mobile [place] [address] [place] [address] 12/30/2023 1:45 PM EDT Immunization/Injection Hematology/Oncology Treatment, [place] [facility] [phone] Nurse, Med 4 [address] [place] [address] 01/05/2024 3:40 PM EDT Office Visit Family Practice [facility] [address] [place] [address] Luis Whalen, DO 200 [facility] [place] [address] 03/16/2024 10:45 AM EDT Office Visit Hematology/Oncology [facility] 200 [facility] [place] [phone] Juventino Sarah MD 200 [facility] [place] [address] Health Maintenance Due Date Last Done Comments Zoster Vaccines (2 of 3) 09/24/2008 07/30/2008 Nephrology Referral 10/05/2014 10/05/2013 Albumin/Creatinine Ratio 04/06/2020 019, 06/08/2018, 07/01/2017, Additional history exists Diabetic Foot Exam 03/20/2021 03/20/2020, 0 03/20/2019, 02/28/2018, Additional history exists COVID-19 Vaccine (2022- season) 2023 03/17/2023, 08/04/2022, 10/19/2020, Additional history [...] Documents on File Type Date Recorded Patient Automobile Service Station Manager Expl anation Power of Mannequin Molder 11/28/2003 Care Teams Community Music Therapist Relationship Specialty Start Date End Date Luis Whalen DO [address] [place] [address] PCP - General Family Medicine 11/09/18 documented as of this encounter
--- OUTSIDE RECORDS SUMMARY | 2023-11-20 07:09 | External Medical Summary ---
Author Name Unknown Address Unknown Organization [facility] [address] [place] [address] Laboratory Report Ordering Provider Test Date Status FLACO ROMAN 11/18/2023 06:00:00 Final Observation Date Value Abnormality Reference (Units ) Status SYNC LEUKOCYTES IN BLOOD BY AUTOMATED COUNT 11/18/2023 06:00:00 6.50 4.00-10.80 (K/uL) Final Segs 11/18/2023 06:00:00 60.1 40.0-75.0 (%) Final Lymphs % 11/18/2023 06:00:00 29.4 18.0-42.0 (%) Final Monos 11/18/2023 06:00:00 9.4 1.0-11.0 (%) Final Eosinophils 11/18/2023 06:00:00 0.6 0.0-6.0 (%) Final Basos 11/18/2023 06:00:00 0.5 0.0-2.0 (%) Final Absolute Segs 11/18/2023 06:00:00 3.91 1.80-7.70 (K/uL) Final Lymphs, absolute 11/18/2023 06:00:00 1.91 1.00-4.80 (K/ul) Final Monos, Abs 11/18/2023 06:00:00 0.61 0.00-1.10 (K/uL) Final Eos, Abs 11/18/2023 06:00:00 0.04 0.00-0.70 (K/uL) Final Basos, Abs 11/18/2023 06:00:00 0.03 0.00-0.20 (K/uL) Final Performing Location LABORATORY [facility] [address] [place] [address]
--- OUTSIDE RECORDS SUMMARY | 2023-11-20 07:09 | External Medical Summary | Summary of Care ---
Author Name Unknown Organization [facility] Address [address] [place] [address] Phone [phone] Care Team Providers Care Hand Shoes Sewer Name Role Phone FernandoLuis bai Primary Care Provider [phone] Encounter Details Date Type Department Care Team (Late st Contact Info) Description 11/18/2023 Orders Only Lab Mobile Phlebotomy [facility] [address] [place], [place] [phone] Regina Gabriel PA-C [address] [place] [address] Atrial fibrillation, unspecified type (HCC)* Allergies Active [...] WED, , TH) 20 Tablet 1 08/24/20 23 Active Warfarin [...] Call Center WB [address] [place] [address] [facility] 58 60 [facility] [place] [address] 12/01/2023 8:00 AM EDT Laboratory Lab Mobile Phlebotomy [facility] [address] [place] [address] [facility], [facility] Mobile [place] [address] [place] [address] 12/02/2023 1:45 PM EDT Immunization/Injection Hematology/Oncology Treatment, [address] [phone] Nurse, Med 4 [address] [place] [address] 12/06/2023 1:00 PM EDT Office Visit Ophthalmology, [facility] 132 [place] [address] Wu Varma, DO 16 [place] [address] 12/15/2023 8:00 AM EDT Laboratory Lab Mobile Phlebotomy [facility] [address] [place] [address] [facility], [facility] Mobile [facility] [address] [place] [address] 12/16/2023 1:45 PM EDT Immunization/Injection Hematology/Oncology Treatment, [address] [place] [phone] Nurse, Med 4 [address] [place] [address] 12/29/2023 8:00 AM EDT Laboratory Lab Mobile Phlebotomy [facility] [address] [place] [address] [facility], [facility] Mobile [facility] [address] [place] [address] 12/30/2023 1:45 PM EDT Immunization/Injection Hematology/Oncology Treatment, [place] 200 [place] [phone] Nurse, Med 4 [address] [place] [address] 01/05/2024 3:40 PM EDT Office Visit Family Practice [facility] 200 [facility] [place], [place] [address] Luis Whalen DO 200 [facility] [place], [place] [address] 03/16/2024 10:45 AM EDT Office Visit Hematology/Oncology [facility] [place] 200 [facility] [place], [place] [phone] Juventino Sarah MD 200 [facility] [place], [place] [address] Scheduled Orders Name Type Priority Associated Diagnoses Orde r Schedule PT INR Lab Routine Atrial fibrillation, unspecified type (HCC) Expected: 11/18/2023, Expires: 11/17/2024 Health Maintenance Due Date Last Done [...] Documents on File Type Date Recorded Patient Procedure Rn Expl anation Power of Automation/Controls Manager 11/28/2003 Care Teams Hand Shoes Sewer Relationship Specialty Start Date End Date Luis Whalen DO [address] [place] [address] PCP - General Family Medicine 11/09/18 documented as of this encounter
--- OUTSIDE RECORDS SUMMARY | 2023-11-20 07:09 | External Medical Summary | Summary of Care ---
Author Name Unknown Organization [facility] Address [address] [place] [address] Phone [phone] Care Team Providers Care Director Of Land Name Role Phone Luis Whalen DO Primary Care Provider [phone] Reason for Visit * Reason Onset Date Comments FYI 11/11/2023 Encounter Details Date Type Department Care Team (Late st Contact Info) Description 11/11/2023 Telephone Family Practice [facility] [place] [address] [facility] [place] [address] Luis Whalen DO [address] [facility] [place] [address] FYI Allergies Active Allergy Reactions Criticality Noted Date [...] as of this encounter (statuses as of 11/15/2023) Medications Medication Sig Dispensed Refills Start Date [...] as of this encounter (statuses as of 11/15/2023) Active Problems Problem Noted Date Diagnosed Date [...] as of this encounter (statuses as of 11/15/2023) Resolved Problems Problem Noted Date Diagnosed Date [...] as of this encounter (statuses as of 11/15/2023) Immunizations Name Administration Dates Next Due COVID-19 [...] encounter Miscellaneous Notes * Telephone Encounter - Yuliana Parry PA-C - 11/15/2023 7:35 PM EST noted * Telephone Encounter - Ariana Godwin OSA - 11/11/2023 1:22 PM EST Patient was taken to 1045 am to hospital via ambulance decline in mobility , oxygen level 77 ,any questions [phone] documented in this encounter Plan of Treatment Upcoming Encounters Date Type Department Care Team (Late st Contact Info) Description 11/17/2023 8:00 AM EST Laboratory Lab Mobile Phlebotomy [facility] [address] [place] [address] [facility] [address] [place] [address] 11/18/2023 2:00 PM EST Immunization/Injection Hematology/Oncology Treatment, [place] [address] [place] [phone] Nurse, Med 4 200 [facility] [place] [address] 11/24/2023 4:45 PM EST Anticoagulation Pharmacy Call Center [address] [place] [address] Cc[facility], [facility] 58 [address] [place] [address] 12/01/2023 8:00 AM EDT Laboratory Lab Mobile Phlebotomy [place] [address] [place] [address] [address] 12/02/2023 1:45 PM EDT Immunization/Injection Hematology/Oncology Treatment, [place] 200 [place] [phone] Nurse, Med 4 [address] [place] [address] 12/06/2023 1:00 PM EDT Office Visit Ophthalmology, [facility] [address] [facility] [place] [address] Wu Varma, DO [address] [place] [address] 12/15/2023 8:00 AM EDT Laboratory Lab Mobile Phlebotomy [facility] [address] [place] [address] [facility], [facility] [address] [place] [address] 12/16/2023 1:45 PM EDT Immunization/Injection Hematology/Oncology Treatment, [place] 200 [facility] [place] [phone] Nurse, Med 4 [address] [place] [address] 12/29/2023 8:00 AM EDT Laboratory Lab Mobile Phlebotomy [facility] [address] [place] [address] [place] [address] [place] [address] 12/30/2023 1:45 PM EDT Immunization/Injection Hematology/Oncology Treatment, [place] 200 [facility] [place] [phone] Nurse, Med 4 [address] [place] [address] 01/05/2024 3:40 PM EDT Office [facility] [place] [address] [place] [address] Luis Whalen DO [address] [facility] [place] [address] 03/16/2024 10:45 AM EDT Office Visit Hematology/Oncology [facility] [place] [address] [place] [phone] Juventino Sarah MD [address] [place] [address] Health Maintenance Due Date Last Done Comments [...] Documents on File Type Date Recorded Patient Slotter Operator Helper Expl anation Power of Care Program Resident 11/28/2003 Care Teams Director Of Land Relationship Specialty Start Date End Date Luis Whalen DO [address] [place] [address] PCP - General Family Medicine 11/09/18 documented as of this encounter
--- OUTSIDE RECORDS SUMMARY | 2023-11-20 07:09 | External Medical Summary | Summary of Care ---
Author Name Unknown Organization [facility] Address [address] [place] [address] Phone [phone] Care Team Providers Care Substation Operator Transforming Name Role Phone Luis Whalen DO Primary Care Provider [phone] Reason for Visit * Reason Onset Date Comments Advice 11/10/2023 Encounter Details Date Type Department Care Team (Late st Contact Info) Description 11/10/2023 Telephone Family Practice [facility] [place] 200 [facility] [place] [address] Luis Whalen DO 200 [facility] [place] [address] Advice Allergies Active Allergy Reactions Criticality Noted [...] mRNA, LNP-s, No Pre serve, 2-Dose Series (Grid Net) 10/19/2020,09/28/2020 Pneumococcal Conjugate Vacc, 13 Valent (Prevnar) [...] money to buy more. Never true 10/21/19 Within the past 12 months, t he [...] Telephone Encounter - Luis Whalen DO - 11/12/2023 3:04 PM EST Please call to schedule acute weekend clinic visit. * Telephone Encounter - Kimmie Foy OSA [...] 8:00 AM EST Laboratory Lab Mobile Phlebotomy [facility] [address] [place] [address] [facility] [address] [place] [address] 11/18/2023 2:00 PM EST Immunization/Injection Hematology/Oncology Treatment, [place] [address] [place] [phone] Nurse, Med 4 200 [place] [address] 11/24/2023 4:45 PM EST Anticoagulation Pharmacy Call Center [address] [place] [address] [facility] 58 [address] [place] [address] 12/01/2023 8:00 AM EDT Laboratory Lab Mobile Phlebotomy [facility] [address] [place] [address] [facility] [place] [address] [place] [address] 12/02/2023 1:45 PM EDT Immunization/Injection Hematology/Oncology Treatment, [address] [phone] Nurse, Med 4 [address] [place] [address] 12/06/2023 1:00 PM EDT Office Visit Ophthalmology, [facility] 132 [facility] [address] Wu Varma, DO 16 [place] [address] 12/15/2023 8:00 AM EDT Laboratory Lab Mobile Phlebotomy [facility] [address] [place] [address] [facility] Mobile [facility] [address] [place] [address] 12/16/2023 1:45 PM EDT Immunization/Injection Hematology/Oncology Treatment, [address] [phone] Nurse, Med 4 [address] [place] [address] 12/29/2023 8:00 AM EDT Laboratory Lab Mobile Phlebotomy [facility] [address] [place] [address] [facility] [address] [place] [address] 12/30/2023 1:45 PM EDT Immunization/Injection Hematology/Oncology Treatment, [address] [phone] Nurse, Med 4 200 [place] [address] 01/05/2024 3:40 PM EDT Office Visit Family Practice [facility] [place] 200 [facility] [place], [place] [address] Luis Whalen DO 200 [facility] [place] [address] 03/16/2024 10:45 AM EDT Office Visit Hematology/Oncology [facility] [place] 200 [facility] [place], [place] [phone] Juventino Sarah MD 200 [facility] [place], [place] [address] Health Maintenance Due Date Last Done Comments [...] Documents on File Type Date Recorded Patient Parts Room Associate Expl anation Power of Lieutenant Firefighter 11/28/2003 Care Teams Substation Operator Transforming Relationship Specialty Start Date End Date Luis Whalen DO [address] [place] [address] PCP - General Family Medicine 11/09/18 documented as of this encounter
--- OUTSIDE RECORDS SUMMARY | 2023-11-20 07:09 | External Medical Summary | Summary of Care ---
Author Name Unknown Organization [facility] Address [address] [place] [address] Phone [phone] Care Team Providers Care Pouncing Lathe Operator Name Role Phone Luis Whalen DO Primary Care Provider [phone] Reason for Visit * Reason Onset Date Comments Appointment Canceled 11/17/2023 Encounter Details Date Type Department Care Team (Late st Contact Info) Description 11/17/2023 Telephone Hematology/Oncology [facility] [place] [address] [place] [phone] Juventino Sarah MD [address] [place] [address] Appointment Canceled Allergies Active Allergy Reactions Criticality [...] EST Anticoagulation Pharmacy Call Center [address] [place] [address] Ccps, [facility] 58 60 [place] [address] 12/01/2023 8:00 AM EDT Laboratory Lab Mobile Phlebotomy [facility] [address] [place] [address] [facility] Mobile [place] [address] [place] [address] 12/02/2023 1:45 PM EDT Immunization/Injection Hematology/Oncology Treatment, [place] [address] [place] [phone] Nurse, Med [address] [place] [address] 12/06/2023 1:00 PM EDT Office Visit Ophthalmology, [facility] 132 [facility] [place] [address] Wu Varma, DO 16 [place], [place] [address] 12/15/2023 8:00 AM EDT Laboratory Lab Mobile Ph[facility]botomy [facility] [address] [place] [address] [facility] [place] [address] [place] [address] 12/16/2023 1:45 PM EDT Immunization/Injection Hematology/Oncology Treatment, [place] [facility] [phone] Nurse, Med [address] [place] [address] 12/29/2023 8:00 AM EDT Laboratory Lab Mobile Phlebotomy [facility] [address] [place] [address] [facility], [facility] [place] [address] [place] [address] 12/30/2023 1:45 PM EDT Immunization/Injection Hematology/Oncology Treatment, [place] [facility] [phone] Nurse, Med 4 [address] [place] [address] 01/05/2024 3:40 PM EDT Office Visit Family Practice [facility] [address] [place] [address] Luis Whalen, DO 200 [facility] [place] [address] 03/16/2024 10:45 AM EDT Office Visit Hematology/Oncology [facility] 200 [facility] [place] [phone] Juventino Sarah MD 200 [facility] [place] [address] Health Maintenance Due Date Last Done Comments [...] Documents on File Type Date Recorded Patient Title Coordinator Expl anation Power of Relations Liaison 11/28/2003 Care Teams Pouncing Lathe Operator Relationship Specialty Start Date End Date Luis Whalen DO [address] [place] [address] PCP - General Family Medicine 11/09/18 documented as of this encounter
[2023-11-20 07:30] LABS: BUN Creatinine Ratio 32.3 (10-20); Calcium 7.9 mg/dl (8.6-10.3); Creatinine Clr Calc Pharmacy 20.5 ml/min; Est GFR (African American) 32.5 ml/min; Est GFR (Non-African American) 28.1 ml/min; Potassium 4.8 mmol/L (3.5-5.1)
[2023-11-20 07:34] LABS: Hematocrit (blood only) 23.9 % (37.0-47.0); Hemoglobin 6.7 g/dl (12.0-16.0); Mean Corpuscular Hemoglobin 25.3 pg (25.0-34.0); Mean Corpuscular Volume 90.2 fL (80.0-100.0); Mean Platelet Volume 11.4 fL (9.4-12.4); Platelet Count 117 K/uL (130-400); RDW Coefficient of Variation 18.2 % (11.5-14.5); RDW Standard Deviation 58.3 fL (36.4-46.3); Red Blood Count 2.65 M/uL (4.20-5.40); White Blood Count 4.77 K/ul (4.8-10.8)
[2023-11-20] MEDS ORDERED: SODIUM CHLORIDE 0.9% 250 ML IV PRN (07:47)
[2023-11-20] MEDS: VANCOMYCIN HCL 750 MG in SODIUM CHLORIDE 0.9% 250 ML IV SCH (07:48)
[2023-11-20] MEDS: SERTRALINE HCL 50 MG TABLET PO SCH (07:48)
[2023-11-20] MEDS: CHOLECALCIFEROL 25 MCG (1000 UNITS) TAB PO SCH (07:49)
[2023-11-20] MEDS: FERROUS SULFATE 325 MG TAB PO SCH (07:50)
[2023-11-20] MEDS: VIBEGRON 75 MG TAB PO SCH (07:50)
[2023-11-20] MEDS: LEVOTHYROXINE SODIUM 112 MCG TABLET PO SCH (07:51)
[2023-11-20 07:53] LABS: INR 3.3 (0.9-1.1); Prothrombin Time 33.7 Seconds (9.0-12.0)
[2023-11-20] MEDS: PANTOprazole 40 MG TAB PO SCH (07:53)
[2023-11-20] MEDS: SACCHAROMYCES BOULARDII 250 MG CAP PO SCH (07:54)
[2023-11-20] MEDS: PHYTONADIONE 2.5 MG in DEXTROSE 5% 50 ML IV ONE (08:32)
[2023-11-20] MEDS: DEXTROSE 5% 1,000 ML IV SCH (08:33)
[2023-11-20] MEDS: PANTOprazole 40 MG in SYRINGE 0 ML IV SCH (09:52)
--- NOTE | 2023-11-20 10:12 | Electrocardiogram Report ---
Test Reason : Blood Pressure : / mmHG Vent. Rate : 079 BPM Atrial Rate : 079 BPM P-R Int : 160 ms QRS Dur : 100 ms QT Int : 354 ms P-R-T Axes : 000 -52 061 degrees QTc Int : 405 ms Sinus rhythm with Premature supraventricular complexes Left anterior fascicular block Nonspecific T wave abnormality Anterior leads Abnormal ECG When compared with ECG of 16-NOV-2023 07:07, Premature supraventricular complexes are now Present Nonspecific T wave abnormality now present Confirmed by Keith Owens ([id number]) on 11/20/2023 10:12:22 AM Referred By: Kendall Smith Confirmed By:Keith Owens
--- NOTE | 2023-11-20 10:51 | Pharmacy Report ---
Pharmacy PK ABX Note - Date of Service November 20, 2023 - Assessment and Plan Assessment 11/19 * Patient had increase in SCr 1.25-->1.61 this morning * Received AM 750 mg dose this morning, will obtain random level in AM and hold further dosing to reasess 11/18 88 year old F receiving Vancomycin and Cefepime for treatment of pneumonia. * Day #1 of antimicrobial therapy. * PMHx significant for T2DM and CKD. * Afebrile and without leukocytosis. SCr 1.25 mg/dL (CrCl 26 mL/min). * Blood cultures pending. Plan Vancomycin * Loading dose: 1250 mg IV x 1 * Maintenance dose: 750 mg IV every 24 hours- HOLD * Random level ordered for: 11/21/23 Cefepime * 2000 mg IV x 1 followed by 1000 mg IV every 12 hours - appropriate per renal function Pharmacy will continue to follow and will adjust dose/frequency as necessary. Thank you. Pharmacy has transitioned to AUC monitoring for vancomycin. AUC/DALE is the preferred PK/PD target and is associated with decreased risk of nephrotoxicity compared to traditional trough targets.
--- NOTE | 2023-11-20 11:48 | Pulmonology Progress Note ---
Date of Service November 20, 2023 Assessment & Plan (1) Acute hypoxemic respiratory failure: (2) Acute on chronic heart failure with preserved ejection fraction (HFpEF): (3) Idiopathic interstitial pneumonia: Plan 88-year-old female with history of moderate aortic stenosis, diastolic heart failure, CKD stage IV and paroxysmal atrial fibrillation who presents with hypoxic respiratory failure. BNP elevated to 592. Procalcitonin minimally elevated. Overall oxygenation appears improved. The patient appears to have more energy today. She is off BiPAP and currently on low-flow oxygen. Continue to wean oxygen to maintain sats of 88 to 92%. I suspect her hypoxemia is due to multifactorial causes including interstitial pneumonia from possible amiodarone versus aspiration pneumonitis or perhaps both and diastolic heart failure related to aortic stenosis and LVH. Continue with as needed diuresis. MRSA screen was negative and thus vancomycin can be discontinued. Continue coverage with cefepime and Flagyl for possible aspiration. Continue IV methylprednisone 40 mg for pneumonitis. Can decrease methylprednisone to 40 twice daily today. Recommend goals of care discussion given the patient's advanced age and comorbidities. Palliative care consultation may be prudent. Patient's daughter, grandson and son-in-law updated at bedside. Discussed with bedside RN. Pulmonary will continue to follow. Thank you for the consult. Admission and Anticipated Discharge Date Admission Date: November 19, 2023 Subjective Patient feeling much better today much more alert. Down to 6 L of oxygen but still saturating about 87 to 88%. Denies any chest pain or shortness of breath at rest. He has not been out of bed due to fall risk and hypoxia. Appetite remains poor. Family at bedside. Review of Systems Review of Systems: All systems reviewed & are unremarkable except as noted in HPI & below Physical Exam Physical Exam: Constitutional: Patient appears to be of their stated age. Patient is in no apparent distress. Patient is well-developed. Eyes: Pupils are equal round and reactive to light. Conjunctivae are normal. Anicteric sclera. Ears nose, mouth and throat: Mallampati class 2. Normal posterior oropharynx. Uvula is midline. Neck: Trachea is midline. Visual inspection is normal. Respiratory: Bilateral crackles. Otherwise, no increased work of breathing at this time. Cardiovascular: Regular rate and rhythm. No murmurs. No edema. Gastrointestinal: Normal bowel sounds, soft, nontender and nondistended. No hepatosplenomegaly noted. Musculoskeletal: No cyanosis. Patient is able to move all extremities. Strength is 5 out of 5 in the upper and lower extremities. Skin: No rashes, warm dry and intact. Neurologic: No obvious focal neurological deficits seen. Psychiatric: Alert and oriented x3 with a euthymic affect. Results & Data Results & Data Vital Signs (Past 12 Hours) Vital Signs Temp Pulse Pulse Resp BP BP Pulse Ox 11/20/23 10:45 36.5 C 78 24 103/48 L 87 L 11/20/23 10:38 81 18 89 L 11/20/23 10:13 36.4 C L 83 16 95/52 L 11/20/23 10:00 36.4 C L 85 16 101/45 L 94 11/20/23 07:38 36.3 C L 72 16 95/57 L 93 11/20/23 07:35 76 18 90 11/20/23 03:47 78 18 94 11/20/23 02:41 36.5 C 78 18 96/41 L 94 O2 Del Method O2 Flow Rate FiO2 11/20/23 10:45 Nasal Cannula 6 11/20/23 10:38 Nasal Cannula 6 11/20/23 10:13 11/20/23 10:00 4 11/20/23 07:38 Oxymask 5 11/20/23 07:35 Oxymask 5 11/20/23 03:47 40 11/20/23 02:41 BiPAP PG Care Time/CCT Total # of Minutes Spent Total Time Spent with Patient: Total time spent is greater than 50% in coordination of care (as documented) at patient's floor/unit and/or counseling patient: Coding Level of Care Code 63209 SUB INP/OBS CARE 3/50MIN Diagnoses Acute hypoxemic respiratory failure J96.01 Acute on chronic heart failure with preserved ejection fraction (HFpEF) I50.33 Idiopathic interstitial pneumonia J84.111
--- NOTE | 2023-11-20 14:38 | Hospitalist Progress Note ---
Date of Service November 20, 2023 Assessment & Plan (1) Acute respiratory failure with hypoxia and hypercapnia: (2) Atypical pneumonia: (3) Altered mental status: (4) HTN (hypertension): (5) HLD (hyperlipidemia): (6) (HFpEF) heart failure with preserved ejection fraction: (7) CKD (chronic kidney disease) stage 4, GFR 15-29 ml/min: (8) T2DM (type 2 diabetes mellitus): (9) Hypothyroidism: Plan: is a 88-year-old female with PMHx of type 2 diabetes, hypothyroidism, hyperlipidemia, paroxysmal atrial fibrillation, hypertension, chronic kidney disease stage IV, anemia due to chronic kidney disease, history of MRSA infection, history of depression, history of traumatic subdural hematoma, history of COVID, history of ambulatory dysfunction from [facility] presents to the hospital with acute onset of shortness of breath. She was recently hospitalized from November 11 to November 17 and was treated for atypical pneumonia. Acute on Chronic Respiratory Failure Pneumonia Possible amiodarone toxicity Acute on chronic HFpEF -Patient presents with acute onset of shortness of breath. Recent hospitalization for similar complaints. -No leukocytosis -Chest x-ray on admission personally reviewed multifocal patchy bilateral opacities. Small bilateral pleural effusions Blood cultureno growth in 24 hours. ABG reviewed; mild respiratory acidosis Patient is started on cefepime and vancomycin. Vancomycin discontinued as MRSA is negative [id number]-[id number] DuoNeb, IV methylprednisolone As needed Lasix Atrial Fibrillation Supratherapeutic INR Demand ischemia Acute blood loss anemia EKG on admission personally reviewed; sinus rhythm with PACs INR reviewed; supratherapeutic Her hemoglobin dropped down to 6.7 today Unclear about source of bleeding. Given vitamin K 2.5 mg Protonix twice daily Obtain a stool occult Hold Coumadin. Amiodarone on hold; discussed with cardiology. Continue on metoprolol 12.5 twice daily, statin Acute kidney injury on CKD Likely due to sepsis Creatinine elevated to 1.61; elevated from 1.1 Monitor urine output Avoid nephrotoxic agent DM type II -Last A1c 6.6 on 09/06/2023 -ISS with Accu-Cheks ACHS -HH/DM diet allowed Glycemic pharmacy on consult. Hypothyroidism -Chronic, stable, cont levothyroxine DVT ppx: Coumadin on hold due to possible bleeding. Lines: 2 PIV CODE: DNR/DNI FEN/GI: HH/DM diet Discussed with patient's daughter over the phone regarding patient's overall condition. Her prognosis is overall guarded due to multiple medical issues, [id number] hospitalization and advance age. Plan to continue medical intervention for the time being; CODE STATUS is DNR/DNI. If patient decompensates; plan to transition over to comfort care. Time spent evaluating patient, direct bedside care, chart review, placing orders, interpretation of diagnostic studies, discussion with consultants, patient, and family members, as well as other required patient management activities is 60-minute Please note the above document was generated using voice recognition software. It may contain grammatical, syntax or spelling errors. Any formal questions or concerns about the content, text or information contained within the body of this dictation should be directly addressed to the provider for clarification Admission and Anticipated Discharge Date Admission Date: November 19, 2023 Subjective Patient seen and examined at bedside. She is sleepy but awake able by voice. She denies any pain or discomfort. Oxygen requirement has been down trended. Review of Systems Review of Systems: All systems reviewed & are unremarkable except as noted in Subjective Physical Exam Physical Exam: Constitutional: Sleepy but awakens with voice. Not in pain or discomfort. Respiratory: Bilateral crackles present. Decreased breath sound entry. Cardiovascular: RRR, no murmur, no edema Vessels: no JVD or carotid bruit Chest: normal inspection of chest Abdomen: Soft, nontender Musculoskeletal: no cyanosis or clubbing, extremities motor strength 5/5 Skin: no rashes, warm and dry normal turgor Neurologic: Grossly intact Results & Data Results & Data Vital Signs (Past 12 Hours) Vital Signs Temp Pulse Pulse Resp BP BP Pulse Ox 11/20/23 13:25 11/20/23 10:45 36.5 C 78 24 103/48 L 87 L 11/20/23 10:38 81 18 89 L 11/20/23 10:13 36.4 C L 83 16 95/52 L 11/20/23 10:00 36.4 C L 85 16 101/45 L 94 11/20/23 07:38 36.3 C L 72 16 95/57 L 93 11/20/23 07:35 76 18 90 11/20/23 03:47 78 18 94 11/20/23 02:41 36.5 C 78 18 96/41 L 94 O2 Del Method O2 Flow Rate FiO2 11/20/23 13:25 Room Air 11/20/23 10:45 Nasal Cannula 6 11/20/23 10:38 Nasal Cannula 6 11/20/23 10:13 11/20/23 10:00 4 11/20/23 07:38 Oxymask 5 11/20/23 07:35 Oxymask 5 11/20/23 03:47 40 11/20/23 02:41 BiPAP (3) Altered mental status Altered mental status type: unspecified Qualified Code(s): R41.82 - Altered mental status, unspecified (4) HTN (hypertension) Hypertension type: essential hypertension Qualified Code(s): I10 - Essential (primary) hypertension (5) HLD (hyperlipidemia) Hyperlipidemia type: unspecified Qualified Code(s): E78.5 - Hyperlipidemia, unspecified (8) T2DM (type 2 diabetes mellitus) Chronic kidney disease stage: stage 3 (moderate) Diabetes mellitus complication detail: with chronic kidney disease Diabetes mellitus complication status: with kidney complications Diabetes mellitus die cutting machine operator insulin use: without die cutting machine operator use Qualified Code(s): E11.22 - Type 2 diabetes mellitus with diabetic chronic kidney disease; N18.3 - Chronic kidney disease, stage 3 (moderate) (9) Hypothyroidism Hypothyroidism type: unspecified Qualified Code(s): E03.9 - Hypothyroidism, unspecified
[2023-11-20] MEDS ORDERED: PHARMACY GLYCEMIC MGMT CONSULT PRN (14:54)
[2023-11-20] MEDS ORDERED: LANTUS PER UNIT CHARGE SC ONE (15:15)
--- OUTSIDE RECORDS SUMMARY | 2023-11-20 15:18 | External Medical Summary ---
Author Name Unknown Address Unknown Organization [facility] [address] [place] [address] Laboratory Report Ordering Provider Test Date Status SRINATH ADRIAN 11/19/2023 05:30:00 Final Observation Date Value Abnormality Reference (Units ) Status Nucleated erythrocytes/100 leukocytes [Ratio] in Blood by Automated count 11/19/2023 05:30:00 Final Performing Location LAB[facility]ORY [place] [address] [place] [address]
--- OUTSIDE RECORDS SUMMARY | 2023-11-20 15:18 | External Medical Summary ---
Author Name Unknown Address Unknown Organization [facility] [address] [place] [address] Laboratory Report Ordering Provider Test Date Status SRINATH ADRIAN 11/19/2023 05:30:00 Final Observation Date Value Abnormality Reference (Units ) Status SYNC LEUKOCYTES IN BLOOD BY AUTOMATED COUNT 11/19/2023 05:30:00 6.62 4.00-10.80 (K/uL) Final Segs 11/19/2023 05:30:00 69.8 40.0-75.0 (%) Final Lymphs % 11/19/2023 05:30:00 21.5 18.0-42.0 (%) Final Monos 11/19/2023 05:30:00 7.4 1.0-11.0 (%) Final Eosinophils 11/19/2023 05:30:00 0.8 0.0-6.0 (%) Final Basos 11/19/2023 05:30:00 0.5 0.0-2.0 (%) Final Absolute Segs 11/19/2023 05:30:00 4.63 1.80-7.70 (K/uL) Final Lymphs, absolute 11/19/2023 05:30:00 1.42 1.00-4.80 (K/ul) Final Monos, Abs 11/19/2023 05:30:00 0.49 0.00-1.10 (K/uL) Final Eos, Abs 11/19/2023 05:30:00 0.05 0.00-0.70 (K/uL) Final Basos, Abs 11/19/2023 05:30:00 0.03 0.00-0.20 (K/uL) Final Performing Location [facility] [address] [place] [address]
--- OUTSIDE RECORDS SUMMARY | 2023-11-20 15:18 | External Medical Summary ---
Author Name Unknown Address Unknown Organization [id number]:LAB[facility]ATORY [facility] [address] [place] [id number] Laboratory Report Ordering Provider Test Date Status SRINATH ADRIAN 11/19/2023 05:30:00 Final Observation Date Value Abnormality Reference (Units ) Status BUN 11/19/2023 05:30:00 41 Above high normal 6-20 (mg/dL) Final Creatinine 11/19/2023 05:30:00 1.3 Above high normal 0.5-1.0 (mg/dL) Final Glomerular filtration rate/1.73 sq M.predicted [Volume Rate/Area] in Serum, Plasma or Blood by Creatinine-based formula (CKD-EPI) 11/19/2023 05:30:00 39 Below low normal >=60 (mL/min) Final eGFR is calculated based on the CKD-EPI 2020 equation SODIUM 11/19/2023 05:30:00 145 135-146 (m mol/L) Final Potassium 11/19/2023 05:30:00 4.8 3.5-5.1 (m mol/L) Final Cl 11/19/2023 05:30:00 106 98-107 (mm ol/L) Final CO2 11/19/2023 05:30:00 27 22-32 (mmo l/L) Final Anion gap 11/19/2023 05:30:00 12 7-15 (mmol /L) Final Glucose 11/19/2023 05:30:00 179 Above high normal 70 -120 (mg/dL) Final Albumin 11/19/2023 05:30:00 2.9 Below low normal 3.8 -5.0 (g/dL) Final AST (Aspartate aminotransferase) 11/19/2023 05:30:00 51 Above high normal 10-35 (U/L) Final Alk Phos 11/19/2023 05:30:00 118 35-130 (U/ L) Final Bilirubin, Total 11/19/2023 05:30:00 0.8 <=1 .2 (mg/dL) Final Calcium 11/19/2023 05:30:00 8.5 8.4-10.2 ( mg/dL) Final Protein 11/19/2023 05:30:00 5.1 Below low normal 6.0 -8.3 (g/dL) Final ALT (Alanine aminotransferase) 11/19/2023 05:30:00 37 Above high normal 10-35 (U/L) Final Performing Location LAB[facility]ATORY [place] [address] [facility] [address]
--- OUTSIDE RECORDS SUMMARY | 2023-11-20 15:18 | External Medical Summary ---
Author Name Unknown Address Unknown Organization K0G:LABORATORY [facility] [address] [place] [id number] Laboratory Report Ordering Provider Test Date Status SRINATH ADRIAN 11/19/2023 05:30:00 Final Observation Date Value Abnormality Reference (Units ) Status WBC, Total 11/19/2023 05:30:00 6.62 4.00-10.8 0 (K/uL) Final RBC 11/19/2023 05:30:00 3.08 3.85-5.15 (M/uL) Final Hemoglobin 11/19/2023 05:30:00 8.1 Below low normal 12 .0-15.3 (g/dL) Final HCT 11/19/2023 05:30:00 27.7 Below low normal 36. 0-45.2 (%) Final MCV 11/19/2023 05:30:00 89.9 81.5-97.5 (fL) Final MCH 11/19/2023 05:30:00 26.3 27.0-34.0 (pg) Final MCHC 11/19/2023 05:30:00 29.2 32.0-36.0 (g/dL) Final RDW 11/19/2023 05:30:00 18.4 11.5-15.5 (%) Final Platelets 11/19/2023 05:30:00 177 140-400 (K /uL) Final MPV 11/19/2023 05:30:00 11.5 6.6-11.1 ( fL) Final Performing Location LAB[facility]ATORY [facility] [address] [place] [id number]
[2023-11-20] MEDS ORDERED: WARFARIN SOD 0.5 MG TAB PO SCH (16:00)
[2023-11-20] MEDS: LANTUS PER UNIT CHARGE SC ONE (17:36)
--- NOTE | 2023-11-20 17:42 | Cardiology Consultation ---
Date of Consultation November 20, 2023 Assessment & Plan (1) Pulmonary vascular congestion: got a dose of IV lasix will continue to give PRN; try to keep pt euvolemic (2) Atypical pneumonia: abx and steroids per pulmonary and primary team (3) Idiopathic interstitial pneumonia: ?etiology? recurrent aspiration PNA/PNA with possibly amiodarone contributing (4) Acute hypoxemic respiratory failure: doing better since getting BiPap and medications (5) Acute on chronic heart failure with preserved ejection fraction (HFpEF): got IV lasix on 11/18 will assess daily (6) Paroxysmal A-fib: stop amiodarone continue coumadin and metoprolol Plan 88y/o female re-admitted for recurrent acute respiratory failure with hypoxia suspected to be secondary to worsening multi-focal pneumonitis (?aspiration PNA? ?amio related?), as well as some acute on chronic heart failure with persevered EF. Of note patient does not have she has calcification of the MV and AV but based on most recent echo there is no stenosis effecting flow. Continue abx and steroids per primary team and pulmonary I think given the worsening Chest imaging it is reasonable to stop amiodarone but it will remain in her system for weeks; hopefully she will not have recurrent AF As far as IV diuretics she got a dose yesterday and seems to be doing better; i recommend reassessing on a daily basis and give as needed Pt has a lot of co-morbidities and this acute pulmonary recurrent issues are not helping on top of her pancytopenia-i would consider palliative care-her primary production operations manager is covering on wednesday so will discuss further with him I discussed the case and my assessment with the hospitalist and he agrees with my plan History of Present Illness Reason for Consultation: CHF Requesting Physician: hospitalist Attending Physician: Houston Isabel MD History of Present Illness Pt is not the best historian but family was at the bedside. Pt was brought in from long term due to hypoxia as per family she was more lethargic and generalized weakness leading up to admission She was admitted for acute respiratory status and was placed on bipap as well as given IV diuresis and steroids for possible acute CHF on top of pneumonitis possibly from aspiration PNA but can also not exclude amio contribution Pt continues to tell me she got a good sleep last night Family tells me she is more alert today and her volume status is much better she has been off bipap and on nasal canula for today Allergies Allergy/AdvReac Type Severity Reaction Status Date / Time amoxicillin Allergy Intermediate Unknown Verified 08/18/23 14:25 sulfamethoxazole Allergy Intermediate Rash Verified 08/18/23 14:25 tetanus toxoid, adsorbed Allergy Intermediate HIVES Verified 08/18/23 14:25 tetracycline Allergy Intermediate hives Verified 08/18/23 14:25 trimethoprim Allergy Intermediate Rash Verified 08/18/23 14:25 rosuvastatin AdvReac Intermediate Muscle Verified 08/18/23 14:25 stiffness Home Medications Medication Instructions Recorded Confirmed Type docusate sodium 100 mg capsule 100 mg PO HS 06/25/20 11/19/23 History (Col-Rite) glipizide 5 mg tablet 10 mg PO QAM 06/25/20 11/19/23 History cholecalciferol (vitamin D3) 25 50 mcg PO QAM 11/09/20 11/19/23 History mcg (1,000 unit) tablet (Vitamin D3) vit C 250 mg-vit E 90 mg-zinc 40 1 tab PO BID 11/09/20 11/19/23 History mg-copper 1 [id number] capsule (PreserVision AREDS-2) Saccharomyces boulardii 250 mg 250 mg PO DAILY 03/15/22 11/19/23 History capsule acetaminophen 500 mg tablet 1,000 mg PO Q8H PRN FEVER 03/15/22 11/19/23 History (Tylenol Extra Strength) >100.5/MODERATE PAIN amiodarone 200 mg tablet 200 mg PO QAM 03/15/22 11/19/23 History ferrous sulfate 325 mg (65 mg 325 mg PO QAM 03/15/22 11/19/23 History iron) tablet ketoconazole 2 % shampoo 1 ea topical 3XWK 03/15/22 11/19/23 History cyanocobalamin (vitamin B-12) 1,000 mcg sublingual DAILY 10/27/22 11/19/23 History 1,000 mcg sublingual tablet mupirocin 2 % topical ointment 1 applic topical HS 10/27/22 11/19/23 History diclofenac sodium 1 % topical gel 1 ea topical Q12 PRN joint pain 02/08/23 11/19/23 History vibegron 75 mg tablet (Gemtesa) 75 mg PO DAILY #90 tabs 09/28/23 11/19/23 Rx aspirin 81 mg chewable tablet 81 mg PO 3XWK 11/11/23 11/19/23 History (Aspirin Childrens) levothyroxine 112 mcg tablet 112 mcg PO DAILYBB 11/11/23 11/19/23 History loperamide 2 mg tablet 2 mg PO Q8 PRN Diarrhea 11/11/23 11/19/23 History loratadine 10 mg tablet 10 mg PO Q OTHER DAY 11/11/23 11/19/23 History melatonin 3 mg capsule 3 mg PO HS 11/11/23 11/19/23 History menthol 0.44 %-zinc oxide 20.6 % 1 applic topical QS 11/11/23 11/19/23 History topical ointment (Calmoseptine) metoprolol tartrate 25 mg tablet 12.5 mg PO BID 11/11/23 11/19/23 History metronidazole 0.75 % topical cream 1 applic topical BID 11/11/23 11/19/23 History omeprazole 20 mg capsule,delayed 20 mg PO QAM 11/11/23 11/19/23 History release peg 400-propylene glycol (PF) 0.4 1 drp OPB .Q 2HRS WHILE AWAKE 11/11/23 11/19/23 History %-0.3 % eye drops in a dropperette (Systane (PF)) psyllium 1 ea PO DAILY 11/11/23 11/19/23 History rosuvastatin 10 mg tablet 10 mg PO HS 11/11/23 11/19/23 History sertraline 25 mg tablet 25 mg PO QAM 11/11/23 11/19/23 History tobramycin-dexamethasone 0.3 %-0.1 1 applic OPB HS 11/11/23 11/19/23 History % eye ointment (TobraDex) lactobacillus combination no.4 3 3,000 mmu cells PO DAILY 1 week #7 11/17/23 11/19/23 Rx billion cell capsule (Probiotic) caps warfarin 1 mg tablet 1.5 mg (1.5 x 1 mg) PO DAILY #45 11/17/23 11/19/23 Rx tabs Patient History Medical History Idiopathic interstitial pneumonia Acute hypoxemic respiratory failure Gross hematuria CKD (chronic kidney disease) stage 4, GFR 15-29 ml/min History of MRSA infection History of COVID-19 History of traumatic subdural hematoma Symptomatic anemia Recurrent UTI Acute on chronic anemia Candiduria Cystitis Admitted to intensive care unit Sepsis Left knee DJD Closed left hip fracture s/p repair UTI (urinary tract infection) Atrial fibrillation with RVR Volume depletion CRISPIN (acute kidney injury) Sepsis Gram-negative bacteremia Paroxysmal A-fib DVT prophylaxis T2DM (type 2 diabetes mellitus) HTN (hypertension) HLD (hyperlipidemia) Hypothyroidism Surgical History History of hysterectomy History of cholecystectomy History of breast biopsy Family History Mother Breast cancer Hypertension Father , at 92 No problems noted. Social History Smoking Status: Never smoker Second Hand Exposure: No; Do You Dip or Chew Tobacco: No; Tobacco Cessation Education Requested by Patient: No Hx Alcohol Use: No Hx Substance Use: No Preferred Language: Sudanese Communication Ability: Effective Computer Support Technician Required: No Beliefs That Will Affect Care: None marital status: / Current Living Situation: Group Home Current Living Situation Comment: [facility] How many Children do You have: 1 Other Information That Helps Us Care for You: Yes other: ambulates with cane Feels Safe at Home: Yes Assistive Devices: Walker and Wheelchair Assistive Devices Comment: 02 for 1 week, after patient was discharged from the hospital Review of Systems Review of Systems: All systems reviewed & are unremarkable except as noted in HPI & below Physical Exam Physical Exam: awake and alert, NAD, thin NC/AT, EOMI Supple No JVD Nrl S1/S2, + murmur decrease BS b/l bases soft nt/nd no LE edema b/l skin intact no focal deficits Results & Data Vital Signs (Past 12 Hours) Vital Signs Temp Pulse Pulse Resp BP BP Pulse Ox 11/20/23 16:26 36.0 C L 74 19 92/52 L 95 11/20/23 15:33 76 23 90 11/20/23 15:00 78 11/20/23 14:40 78 20 91 11/20/23 14:29 11/20/23 13:25 11/20/23 10:45 36.5 C 78 24 103/48 L 87 L 11/20/23 10:38 81 18 89 L 11/20/23 10:13 36.4 C L 83 16 95/52 L 11/20/23 10:00 36.4 C L 85 16 101/45 L 94 11/20/23 08:00 74 11/20/23 07:38 36.3 C L 72 16 95/57 L 93 11/20/23 07:35 76 18 90 Pulse Ox O2 Del Method O2 Flow Rate O2 Flow Rate FiO2 11/20/23 16:26 Nasal Cannula 6 11/20/23 15:33 BiPAP 40 11/20/23 15:00 11/20/23 14:40 40 11/20/23 14:29 82 L 6 11/20/23 13:25 Room Air 11/20/23 10:45 Nasal Cannula 6 11/20/23 10:38 Nasal Cannula 6 11/20/23 10:13 11/20/23 10:00 4 11/20/23 08:00 11/20/23 07:38 Oxymask 5 11/20/23 07:35 Oxymask 5 Laboratory Results Laboratory Results - last 24 hr 11/19/23 11/19/23 11/20/23 19:31 20:00 06:32 WBC 4.77 L RBC 2.65 L Hgb 6.7 L* Hct 23.9 L MCV 90.2 MCH 25.3 MCHC 28.0 L RDW Std Deviation 58.3 H RDW Coeff of Hope 18.2 H Plt Count 117 L MPV 11.4 PT 33.7 H INR 3.3 H Sodium 146 H Potassium 4.8 Chloride 110 H Carbon Dioxide 28 Anion Gap 8 BUN 52 H Creatinine 1.61 H D Est Cr Clr Drug Dosing 20.5 Est GFR ( Amer) 32.5 Est GFR (Non-Af Amer) 28.1 BUN/Creatinine Ratio 32.3 H Glucose 230 H POC Glucose 192 H Calcium 7.9 L Troponin I High Sens 33.5 H D Nasal Screen MRSA (PCR) Blood Type Antibody Screen Crossmatch 11/20/23 11/20/23 11/20/23 07:24 07:55 08:25 WBC RBC Hgb Hct MCV MCH MCHC RDW Std Deviation RDW Coeff of Hope Plt Count MPV PT INR Sodium Potassium Chloride Carbon Dioxide Anion Gap BUN Creatinine Est Cr Clr Drug Dosing Est GFR ( Amer) Est GFR (Non-Af Amer) BUN/Creatinine Ratio Glucose POC Glucose 286 H Calcium Troponin I High Sens Nasal Screen MRSA (PCR) Negative Blood Type A Positive Antibody Screen NEGATIVE Crossmatch See Detail 11/20/23 11/20/23 10:51 16:24 WBC RBC Hgb Hct MCV MCH MCHC RDW Std Deviation RDW Coeff of Hope Plt Count MPV PT INR Sodium Potassium Chloride Carbon Dioxide Anion Gap BUN Creatinine Est Cr Clr Drug Dosing Est GFR ( Amer) Est GFR (Non-Af Amer) BUN/Creatinine Ratio Glucose POC Glucose 354 H* 337 H* Calcium Troponin I High Sens Nasal Screen MRSA (PCR) Blood Type Antibody Screen Crossmatch Diagnostic Findings CXR: progression of the patchy b/l opacities Medications Administered Current Inpatient Medications Acetaminophen (Acetaminophen 500 Mg Tab) 1,000 mg PO Q8H [facility] Stop: 12/19/23 21:59 Last Admin: 11/20/23 12:59 Dose: Not Given Albuterol (Albut/Ipratrop 3mg/0.5mg Neb 3 Ml Vial) 3 ml NEB Q4R [facility]; Protocol Stop: 12/19/23 14:59 Last Admin: 11/20/23 15:32 Dose: 3 ml Aspirin (Aspirin 81 Mg Chew) 81 mg PO MoWeFr@0900 [facility] Stop: 12/19/23 14:29 Last Admin: 11/19/23 15:38 Dose: 81 mg Benzonatate (Benzonatate 100 Mg Capsule) 100 mg PO TID [facility] Stop: 12/19/23 13:59 Last Admin: 11/20/23 12:48 Dose: Not Given Dextrose (Dextrose 50% 50 Ml Syringe) 25 - 50 ml IV UD PRN; Protocol PRN Reason: Hypoglycemia Protocol Stop: 12/19/23 20:12 Diclofenac Sodium (Diclofenac Sod 1% Gel 100 Gm Tube) 2 gm EXT Q12 PRN; Protocol PRN Reason: joint pain Stop: 12/19/23 14:29 Docusate Sodium (Docusate Sodium 100 Mg Cap) 100 mg PO HS [facility] Stop: 12/19/23 20:59 Last Admin: 11/20/23 00:18 Dose: Not Given Ferrous Sulfate (Ferrous Sulfate 325 Mg Tab) 325 mg PO QAM [facility] Stop: 12/20/23 08:59 Last Admin: 11/20/23 07:50 Dose: 325 mg Glucagon (Glucagon For Inj 1 Mg Vial) 1 mg SQ UD PRN; Protocol PRN Reason: Hypoglycemia Protocol Stop: 12/19/23 20:12 Glucose (Glucose 10 Tab/Tube) 4 - 8 tab PO UD PRN; Protocol PRN Reason: Hypoglycemia Treatment Stop: 12/19/23 20:12 Glucose (Glucose 40% Gel 15 Gm Tube) 15 - 30 gm PO UD PRN; Protocol PRN Reason: Hypoglycemia Protocol Stop: 12/19/23 20:12 Guaifenesin (Guaifenesin 600 Mg Tabcr) 1,200 mg PO Q12 NO Stop: 12/19/23 20:59 Last Admin: 11/20/23 07:52 Dose: 1,200 mg Cefepime HCl 1,000 mg/ Syringe 10 mls @ 5 mls/min IV Q12H NO Stop: 11/26/23 22:59 Last Admin: 11/20/23 11:02 Dose: 5 mls/min Pantoprazole Sodium 40 mg/ (Syringe) 10 mls @ 5 mls/min IV BID NO Stop: 12/20/23 08:59 Last Admin: 11/20/23 09:52 Dose: 5 mls/min Methylprednisolone 40 mg/ (Syringe) 0.64 mls @ 1.5 mls/min IV BID NO Stop: 12/20/23 20:59 Insulin Aspart (Insulin Aspart Per Unit Charge) 0 units SC ACHS NO Stop: 12/19/23 20:59 Last Admin: 11/20/23 17:35 Dose: 10 units Levothyroxine Sodium (Levothyroxine Sodium 112 Mcg Tablet) 112 mcg PO DAILYBB NO Stop: 12/20/23 06:29 Last Admin: 11/20/23 07:51 Dose: 112 mcg Metoprolol Tartrate (Metoprolol Tartrate 25 Mg Tab) 12.5 mg PO BID NO Stop: 12/19/23 20:59 Last Admin: 11/20/23 07:53 Dose: Not Given Metronidazole (Metronidazole 0.75% Topical Gel 45 Gm Tube) 1 appln TOP BID NO Stop: 11/29/23 20:59 Last Admin: 11/20/23 07:55 Dose: 1 appln Miscellaneous (Carbohydrates For Hypoglycemia ) 15 - 30 gm PO UD PRN PRN Reason: Hypoglycemia Protocol Stop: 12/19/23 20:12 Miscellaneous Information (Pharmacy Glycemic Mgmt Consult) 1 each N/A UD PRN; Protocol PRN Reason: Consult Stop: 12/20/23 14:53 Multivitamins/Minerals (Cerovite Adv Formula Tab) 1 tab PO BID [facility] Stop: 12/19/23 20:59 Last Admin: 11/20/23 07:53 Dose: 1 tab Mupirocin (Mupirocin 2% Oint 22 Gm Tube) 1 appln TOP HS [facility] Stop: 12/19/23 20:59 Last Admin: 11/19/23 22:00 Dose: 1 appln Ondansetron HCl (Ondansetron Inj 2 Mg/Ml 2 Ml Vial) 4 mg IV Q4H PRN PRN Reason: Nausea And Vomiting Stop: 12/19/23 13:37 Pantoprazole Sodium (Pantoprazole 40 Mg Tab) 40 mg PO QAM [facility]; Protocol Stop: 12/20/23 08:59 Last Admin: 11/20/23 07:53 Dose: 40 mg Rosuvastatin Calcium (Rosuvastatin Calcium 10 Mg Tab) 10 mg [address] [facility] Stop: 12/19/23 20:59 Last Admin: 11/20/23 00:20 Dose: Not Given Saccharomyces Boulardii (Saccharomyces Boulardii 250 Mg Cap) 250 mg PO DAILY [facility] Stop: 12/20/23 08:59 Last Admin: 11/20/23 07:54 Dose: 250 mg Sertraline HCl (Sertraline Hcl 50 Mg Tablet) 25 mg PO QAM [facility] Stop: 12/20/23 08:59 Last Admin: 11/20/23 07:48 Dose: 25 mg Tobramycin/Dexamethasone (Tobramycin/Dexamethasone Oph Oint Per Appln Charge) 1 appln OPB [facility] Stop: 12/19/23 20:59 Last Admin: 11/20/23 00:20 Dose: Not Given Vibegron (Vibegron 75 Mg Tab) 75 mg PO DAILY [facility] Stop: 12/20/23 08:59 Last Admin: 11/20/23 07:50 Dose: 75 mg Vitamin D (Cholecalciferol 25 Mcg (1000 Units) Tab) 50 mcg PO QAM [facility] Stop: 12/20/23 08:59 Last Admin: 11/20/23 07:49 Dose: 50 mcg Warfarin Sodium (Warfarin Sod 0.5 Mg Tab) 1.5 mg PO [email or web address] [facility] Stop: 12/20/23 15:59 ECG Additional Comments: SR DEAL
--- NOTE | 2023-11-20 18:25 | Pharmacy Report ---
Pharmacy Glycemic Short Note 2 - Date of Service November 20, 2023 - Glycemic Short BSG Results (Last 24 hours): 11/19/23 11/20/23 11/20/23 20:00 06:32 07:24 Glucose 230 H POC Glucose 192 H 286 H 11/20/23 11/20/23 10:51 16:24 Glucose POC Glucose 354 H* 337 H* OUTPATIENT ANTIDIABETIC REGIMEN: * glipizide 10mg QAM * HbA1c 6.1% (11/12/23) ASSESSMENT: * Radha is an 88 YOF admitted for hypoxia and has a history of T2DM. Pharmacy has been consulted to assist with glycemic management while inpatient. * She is receiving IV methylprednisolone 40mg BID for pneumonitits as well as cefepime and vancomycin to cover possible aspiration pneumonia. * She was started on loose Novolog coverage and BSGs trended up with IV steroids, carbohydrate coverage tightened * Lantus 0.4units/kg given with dinner to cover steroids, will reassess basal in AM PLAN FOR INPATIENT GLYCEMIC CONTROL: * Hold outpatient oral diabetes medications * Basal insulin * Lantus 20 units SQ x1, reassess basal in AM * Bolus insulin * NovoLog per scale ACHS or Q6hrs while NPO * Goal Range: Low 110 mg/dL - High 140 mg/dL * Correction Factor: 30 mg/dL/unit * Nutritional / Prandial insulin per carb ratio of 1 unit per 8 grams CHO consumed
[2023-11-20] MEDS: methylPREDNISolone 40 MG in SYRINGE 0 ML IV SCH (21:24)
[2023-11-20] MEDS: INSULIN HUMAN REGULAR PER UNIT 5 UNITS in SYRINGE 4.95 ML IV ONE (21:51)
[2023-11-21] MEDS: INSULIN ASPART PER UNIT CHARGE SC SCH (00:20)
[2023-11-21] MEDS: TOBRAMYCIN/DEXAMETHASONE OPH OINT 3.5 GM TUBE OPB SCH (05:44)
[2023-11-21] MEDS: VANCOMYCIN LEVEL ONE (05:45)
[2023-11-21 06:02] LABS: Creatinine Clr Calc Pharmacy 16.9 ml/min; Est GFR (African American) 25.8 ml/min; Est GFR (Non-African American) 22.3 ml/min
[2023-11-21 06:20] LABS: Prothrombin Time 20.5 Seconds (9.0-12.0)
[2023-11-21 08:36] LABS: Basophils # (auto) 0.01 K/uL (0.00-0.20); Basophils % (auto) 0.1 %; Hematocrit (blood only) 25.9 % (37.0-47.0); Hemoglobin 7.9 g/dl (12.0-16.0); Immature Granulocytes # (auto) 0.03 K/uL (0.01-0.20); Immature Granulocytes % (auto) 0.4 %; Lymphocytes # (auto) 1.24 K/uL (1.20-3.40); Lymphocytes % (auto) 17.3 %; Mean Corpuscular Hemoglobin 26.3 pg (25.0-34.0); Mean Corpuscular Hgb Conc 30.5 g/dL (32.0-36.0); Mean Corpuscular Volume 86.3 fL (80.0-100.0); Mean Platelet Volume 11.7 fL (9.4-12.4); Monocytes # (auto) 0.23 K/uL (0.11-0.59); Monocytes % (auto) 3.2 %; Neutrophils # (auto) 5.65 K/uL (1.40-6.50); Platelet Count 128 K/uL (130-400); RDW Standard Deviation 55.2 fL (36.4-46.3); White Blood Count 7.16 K/ul (4.8-10.8)
[2023-11-21 09:01] LABS: Ovalocytes 1+; Polychromasia 1+; Tear Drop Cells 1+
[2023-11-21] MEDS: LANTUS PER UNIT CHARGE SC SCH ×2 (09:35→21:17)
--- NOTE | 2023-11-21 10:39 | Pharmacy Report ---
Pharmacy Glycemic Short Note 2 - Date of Service November 21, 2023 - Glycemic Short BSG Results (Last 24 hours): 11/20/23 11/20/23 11/20/23 10:51 16:24 20:24 POC Glucose 354 H* 337 H* 339 H* 11/20/23 11/20/23 11/20/23 20:24 22:28 23:58 POC Glucose 350 H* 256 H 194 H 11/21/23 11/21/23 04:18 07:21 POC Glucose 258 H 238 H OUTPATIENT ANTIDIABETIC REGIMEN: * glipizide 10mg QAM * HbA1c 6.1% (11/12/23) ASSESSMENT: 11/20 * Patient received 52 nits of insulin yesterday, 20 basal, blood sugar still elevated d/t IV steroids. Remains on Solu-Medrol 40mg IV Q12H. * Tighten CF/CR and increase basal at this time. 11/19 * Radha is an 88 YOF admitted for hypoxia and has a history of T2DM. Pharmacy has been consulted to assist with glycemic management while inpatient. * She is receiving IV methylprednisolone 40mg BID for pneumonitis as well as cefepime and vancomycin to cover possible aspiration pneumonia. * She was started on loose NovoLog coverage and BSGs trended up with IV steroids, carbohydrate coverage tightened * Lantus 0.4units/kg given with dinner to cover steroids, will reassess basal in AM PLAN FOR INPATIENT GLYCEMIC CONTROL: * Hold outpatient oral diabetes medications * Basal insulin * Lantus 30 units SQ Daily * Lantus 15 units SQ HS for BSG > 180mg/dl * Bolus insulin * NovoLog per scale ACHS or Q6hrs while NPO * Goal Range: Low 110 mg/dL - High 140 mg/dL * Correction Factor: 15 mg/dL/unit * Nutritional / Prandial insulin per carb ratio of 1 unit per 5 grams CHO consumed
--- NOTE | 2023-11-21 11:39 | Pulmonology Progress Note ---
Date of Service November 21, 2023 Assessment & Plan (1) Acute hypoxemic respiratory failure: (2) Acute on chronic heart failure with preserved ejection fraction (HFpEF): (3) Idiopathic interstitial pneumonia: Plan 88-year-old female with history of moderate aortic stenosis, diastolic heart failure, CKD stage IV and paroxysmal atrial fibrillation who presents with hypoxic respiratory failure. This is a frail elderly female who has been had declining health over several months. She has evidence of diastolic heart failure secondary to aortic stenosis and possible idiopathic interstitial pneumonia related to amiodarone induced lung injury. Aspiration pneumonitis is certainly a possibility as well. We are continuing broad-spectrum antibiotics, methylprednisolone and diuresis as tolerated. Would strongly recommend goals of care discussion with palliative care medicine given her advanced comorbidities and malnutrition. Family seems on board with discussion with palliative care medicine Otherwise, I have no further recommendations at this time other than weaning oxy gen as able to maintain saturations of 88 to 92%. She is not a candidate for bronchoscopy given her severe frailty. Additionally, I do not think bronchoscopy would be a very high yield study at this time nor would it change her outcome. Pulmonary will sign off. Please call with questions for any questions or concerns. Thank you for the consult. Admission and Anticipated Discharge Date Admission Date: November 19, 2023 Subjective Patient seen and examined. She remains on 6 to 7 L of oxygen to maintain saturations of 89%. She is not dyspneic at rest. She has not been out of bed. She is profoundly weak. Appetite has been somewhat poor. Family at bedside. No fevers or chills. Review of Systems Review of Systems: All systems reviewed & are unremarkable except as noted in HPI & below Physical Exam Physical Exam: Constitutional: Patient appears to be of their stated age. Patient is in no ap parent distress. Patient is well-developed. Eyes: Pupils are equal round and reactive to light. Conjunctivae are normal. Anicteric sclera. Ears nose, mouth and throat: Mallampati class 2. Normal posterior oropharynx. Uvula is midline. Neck: Trachea is midline. Visual inspection is normal. Respiratory: Bilateral crackles. Otherwise, no increased work of breathing at this time. Cardiovascular: Regular rate and rhythm. No murmurs. No edema. Gastrointestinal: Normal bowel sounds, soft, nontender and nondistended. No hepatosplenomegaly noted. Musculoskeletal: No cyanosis. Patient is able to move all extremities. Strength is 5 out of 5 in the upper and lower extremities. Skin: No rashes, warm dry and intact. Neurologic: No obvious focal neurological deficits seen. Psychiatric: Alert and oriented x3 with a euthymic affect. Results & Data Results & Data Vital Signs (Past 12 Hours) Vital Signs Temp Pulse Pulse Resp BP Pulse Ox O2 Del Method 11/21/23 11:31 86 20 89 L Nasal Cannula 11/21/23 11:26 36.1 C L 66 18 100/42 L 90 Nasal Cannula 11/21/23 08:00 74 11/21/23 07:56 Nasal Cannula 11/21/23 07:27 76 20 92 Oxymask 11/21/23 07:22 36.2 C L 75 20 103/51 L 91 Oxymask 11/21/23 04:00 73 18 92 Oxymask 11/20/23 23:59 74 18 91 11/20/23 23:59 74 18 91 BiPAP O2 Flow Rate FiO2 11/21/23 11:31 6 11/21/23 11:26 6 11/21/23 08:00 11/21/23 07:56 6 11/21/23 07:27 12 11/21/23 07:22 11/21/23 04:00 14 11/20/23 23:59 60 11/20/23 23:59 60 PG Care Time/CCT Total # of Minutes Spent Total Time Spent with Patient: Total time spent is greater than 50% in coordination of care (as documented) at patient's floor/unit and/or counseling patient: Coding Level of Care Code 45471 SUB INP/OBS CARE 2/35MIN Diagnoses Acute hypoxemic respiratory failure J96.01 Acute on chronic heart failure with preserved ejection fraction (HFpEF) I50.33 Idiopathic interstitial pneumonia J84.111
--- NOTE | 2023-11-21 12:31 | Hospitalist Progress Note ---
Date of Service November 21, 2023 Assessment & Plan (1) Acute respiratory failure with hypoxia and hypercapnia: (2) Atypical pneumonia: (3) Altered mental status: (4) HTN (hypertension): (5) HLD (hyperlipidemia): (6) (HFpEF) heart failure with preserved ejection fraction: (7) CKD (chronic kidney disease) stage 4, GFR 15-29 ml/min: (8) T2DM (type 2 diabetes mellitus): (9) Hypothyroidism: Plan: Patient is a 88-year-old female with PMHx of type 2 diabetes, hypothyroidism, hyperlipidemia, paroxysmal atrial fibrillation, hypertension, chronic kidney disease stage IV, anemia due to chronic kidney disease, history of MRSA infection, history of depression, history of traumatic subdural hematoma, history of COVID, history of ambulatory dysfunction from [facility] presents to the hospital with acute onset of shortness of breath. She was recently hospitalized from November 11 to November 17 and was treated for atypical pneumonia. Acute on Chronic Respiratory Failure Pneumonia Possible amiodarone toxicity Acute on chronic HFpEF -Patient presents with acute onset of shortness of breath. Recent hospitalization for similar complaints. -No leukocytosis -Chest x-ray on admission personally reviewed multifocal patchy bilateral opacities. Small bilateral pleural effusions Blood cultureno growth till date ABG reviewed; mild respiratory acidosis Patient is started on cefepime and vancomycin. Vancomycin discontinued as MRSA is negative. Plan to treat for 7 days of antibiotics IV methylprednisolone as per pulmonology; plan to treat for 5-day As needed Lasix Amiodarone is stopped as it was thought that it might have contributed to toxicity. Palliative care consulted for goals of care discussion; patient had multiple hospitalization recently; her prognosis is poor due to her advanced age, multiple comorbidities and her respiratory status. Pulmonology and cardiology both recommend palliative care consultation. Atrial Fibrillation Supratherapeutic INR Demand ischemia Acute blood loss anemia status post 1 unit of transfusion in November 19 EKG on admission personally reviewed; sinus rhythm with PACs INR reviewed; supratherapeutic status post vitamin K 2.5 mg on November 19 Hemoglobin down trended to 6.5; improved with transfusion Unclear about source of bleeding. Continue Protonix twice daily Awaiting stool occult. Monitor for GI bleed Hold Coumadin. Amiodarone on hold; discussed with cardiology. Continue on metoprolol 12.5 twice daily, statin Acute kidney injury on CKD Likely due to sepsis Creatinine continues to uptrend Monitor urine output Avoid nephrotoxic agent Obtain urinalysis, renal ultrasound DM type II -Last A1c 6.6 on 09/06/2023 -ISS with Accu-Cheks ACHS -HH/DM diet allowed Glycemic pharmacy on consult. Hypothyroidism -Chronic, stable, cont levothyroxine DVT ppx: Coumadin on hold due to possible bleeding. Lines: 2 PIV CODE: DNR/DNI FEN/GI: HH/DM diet Discussed with patient's daughter over the phone regarding patient's overall condition on NovemberNovember 20,. Her prognosis is overall guarded due to multiple medical issues, [id number] hospitalization and advance age. Plan to continue medical intervention for the time being; CODE STATUS is DNR/DNI. If patient decompensates; plan to transition over to comfort care. Palliative care consulted as well. Time spent evaluating patient, direct bedside care, chart review, placing orders, interpretation of diagnostic studies, discussion with consultants, patient, and family members, as well as other required patient management activities is 60-minute Please note the above document was generated using voice recognition software. It may contain grammatical, syntax or spelling errors. Any formal questions or concerns about the content, text or information contained within the body of this dictation should be directly addressed to the provider for clarification Admission and Anticipated Discharge Date Admission Date: November 19, 2023 Subjective Patient seen and examined at bedside. She is requiring 6 to 7 L of oxygen by nasal cannula. She reports that she wants to have a normal diet; Denies any pain or discomfort. Review of Systems Review of Systems: All systems reviewed & are unremarkable except as noted in Subjective Physical Exam Physical Exam: Constitutional: Awake, oriented to self and person. Respiratory: Bilateral crackles present. Decreased breath sound entry. Cardiovascular: RRR, no murmur, no edema Vessels: no JVD or carotid bruit Chest: normal inspection of chest Abdomen: Soft, nontender Musculoskeletal: no cyanosis or clubbing, extremities motor strength 5/5 Skin: no rashes, warm and dry normal turgor Neurologic: Grossly intact Results & Data Results & Data Vital Signs (Past 12 Hours) Vital Signs Temp Pulse Pulse Resp BP Pulse Ox O2 Del Method 11/21/23 11:31 86 20 89 L Nasal Cannula 11/21/23 11:26 36.1 C L 66 18 100/42 L 90 Nasal Cannula 11/21/23 08:00 74 11/21/23 07:56 Nasal Cannula 11/21/23 07:27 76 20 92 Oxymask 11/21/23 07:22 36.2 C L 75 20 103/51 L 91 Oxymask 11/21/23 04:00 73 18 92 Oxymask O2 Flow Rate 11/21/23 11:31 6 11/21/23 11:26 6 11/21/23 08:00 11/21/23 07:56 6 11/21/23 07:27 12 11/21/23 07:22 11/21/23 04:00 14 (3) Altered mental status Altered mental status type: unspecified Qualified Code(s): R41.82 - Altered mental status, unspecified (4) HTN (hypertension) Hypertension type: essential hypertension Qualified Code(s): I10 - Essential (primary) hypertension (5) HLD (hyperlipidemia) Hyperlipidemia type: unspecified Qualified Code(s): E78.5 - Hyperlipidemia, unspecified (8) T2DM (type 2 diabetes mellitus) Diabetes mellitus meterman insulin use: without custodial use Diabetes mellitus complication status: with kidney complications Diabetes mellitus complication detail: with chronic kidney disease Chronic kidney disease stage: stage 3 (moderate) Qualified Code(s): E11.22 - Type 2 diabetes mellitus with diabetic chronic kidney disease; N18.3 - Chronic kidney disease, stage 3 (moderate) (9) Hypothyroidism Hypothyroidism type: unspecified Qualified Code(s): E03.9 - Hypothyroidism, unspecified
--- NOTE | 2023-11-21 14:37 | Ultrasound Report ---
RENAL ULTRASOUND HISTORY: Acute bilateral flank pain Rule out hydronephrosis COMPARISON: 10/28/2022 FINDINGS: Right kidney: 9.1 x 5.7 x 5.7 cm. No hydronephrosis. Mild diffuse cortical thinning redemonstrated. C ysts within the right kidney measure up to 1.1 cm. 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 Left kidney: 7.7 x 4.2 x 4.8 cm. No hydronephrosis. Mild diffuse cortical thinning redemonstrated. Cy sts measure up to 1.7 cm. Bladder: Decompressed with Velásquez catheter. Trace free pelvic fluid. IMPRESSION: 1. No hydronephrosis identified. 2. Evidence of chronic medical renal disease. 3. Decompressed urinary bladder with Velásquez catheter. ACT 112: Negative or not required by law. Electronically signed by: Tod Hou M.D. 11/21/2023 2:34 PM
[2023-11-22 05:30] LABS: Appearance Urine Slightly Cloudy (Clear); Bilirubin Urine Negative (Negative); Blood Urine Negative (Negative); Color Urine Yellow; Glucose Urine UA Negative (Negative); Ketones Urine Trace (Negative); Leukocyte Esterase Urine Trace (Negative); Nitrite Urine Negative (Negative); Protein Urine 1+ (Negative); Urobilinogen Urine Negative (Negative)
[2023-11-22] MEDS ORDERED: VANCOMYCIN LEVEL ONE (05:30)
[2023-11-22 05:37] LABS: Bacteria Urine Negative (Negative); Epithelial Cell Urine >30 /lpf (0-5); RBC Urine 0-4 /hpf (0-4); WBC Urine 0-5 /hpf (0-5)
[2023-11-22 05:39] LABS: Uric Acid Crystals Urine Present (None Prsent)
[2023-11-22 07:48] LABS: Basophils # (auto) 0.01 K/uL (0.00-0.20); Basophils % (auto) 0.1 %; Hematocrit (blood only) 27.8 % (37.0-47.0); Hemoglobin 8.2 g/dl (12.0-16.0); Immature Granulocytes # (auto) 0.06 K/uL (0.01-0.20); Immature Granulocytes % (auto) 0.7 %; Lymphocytes # (auto) 1.48 K/uL (1.20-3.40); Lymphocytes % (auto) 17.3 %; Mean Corpuscular Hemoglobin 25.7 pg (25.0-34.0); Mean Corpuscular Hgb Conc 29.5 g/dL (32.0-36.0); Mean Corpuscular Volume 87.1 fL (80.0-100.0); Mean Platelet Volume 11.7 fL (9.4-12.4); Monocytes # (auto) 0.34 K/uL (0.11-0.59); Neutrophils # (auto) 6.68 K/uL (1.40-6.50); Neutrophils % (auto) 77.9 %; Platelet Count 132 K/uL (130-400); RDW Coefficient of Variation 18.4 % (11.5-14.5); Red Blood Count 3.19 M/uL (4.20-5.40); White Blood Count 8.57 K/ul (4.8-10.8)
[2023-11-22 08:02] LABS: BUN Creatinine Ratio 41.5 (10-20); Calcium 7.7 mg/dl (8.6-10.3); Est GFR (African American) 27.9 ml/min; Potassium 4.8 mmol/L (3.5-5.1)
[2023-11-22 08:10] LABS: INR 2.3 (0.9-1.1); Prothrombin Time 23.7 Seconds (9.0-12.0)
--- NOTE | 2023-11-22 10:06 | Palliative Care Consultation ---
Date of Consultation November 22, 2023 Assessment & Plan (1) Dyspnea and respiratory abnormalities: (2) Weakness generalized: (3) Failure to thrive in adult: (4) Advanced care planning/counseling discussion: See separate ACP note (5) Palliative care by specialist: Met with pt/family. Provided overview of Palliative Medicine, a subspecialty that provides specialized medical care for people living with a serious illness by offering a focus on quality of life. Palliative Medicine is often conflated with hospice: I advised patient/family that Palliative and hospice can be partners but we are not the same. It is important to understand the difference so that we may be informed, and not afraid. Palliative Medicine works to improve QOL through reduction of symptom burden/more control over their illness, for both the patient and family. Palliative medicine clinicians are board certified, specially-trained and another member of the patient's medical care team. We often provide an extra layer of support because our care is based on the needs of the patient, not the prognosis; as such, it's appropriate at any age/advancing stage of a serious illness and can be provided along with curative treatment. Palliative Medicine clinicians are also trained in advanced communication methodologies, to facilitate complex discussions about advanced illness planning, which are needed to help assure that the treatment choices match the patient's goals, aka delivering Goal Concordant care. Finally, we discussed that hospice is a visiting nurse service that focuses on care delivered at the very end of life for patients with terminal illness, with life expectancy less than 6 month. (6) Acute hypoxic respiratory failure: (7) (HFpEF) heart failure with preserved ejection fraction: (8) CKD (chronic kidney disease) stage 4, GFR 15-29 ml/min: (9) Paroxysmal A-fib: Plan * Patient and family hopeful that her overall condition will improve. Several questions were asked about the nature of her lung issues and their etiology. Reviewed the potential respiratory related complications that can arise with progressive heart failure, COVID-related lung changes, arrhythmias, anemia, and worsening kidney disease. Family then inquired about how she came to have kidney disease and we reviewed that this can be a side effect of long-term heart failure related therapies, as they do have an effect on kidney function over time. Discussed with them in many ways, the endorgan effects with life- saving therapies can be mariano to the side effect of survival. * Discussed that her respiratory changes may be more chronic than reversible. Reviewed the overall nature of her chronic, progressive, advanced illnesses. Reviewed that heart failure as an entity is not reversible or curable but will continue to progress and worsen over time. This in turn will create issues with her respiratory function, lung function, as well as other organ function including kidneys and liver. * Family would like to see how patient does over the next few days before making any other decisions with regards to serious illness planning. Thank you for allowing us to participate in the ongoing care of this patient. Please don't hesitate to call or page with any additional concerns. Dr. Natalie Connor DNP Director, Palliative Care History of Present Illness Reason for Consultation: goals of care discussion. ?Comfort care Attending Physician: Houston Isabel MD History of Present Illness Radha is an 88-year-old female with PMHx of type 2 diabetes, hypothyroidism, hyperlipidemia, paroxysmal atrial fibrillation, hypertension, chronic kidney disease stage IV, anemia due to chronic kidney disease, history of MRSA infection, history of depression, history of traumatic subdural hematoma, history of COVID, history of ambulatory dysfunction from [facility] to the hospital with acute onset of shortness of breath. She was recently hospitalized from November 11 to November 17 and was treated for atypical pneumonia. She is now being managed for Acute on Chronic Respiratory Failure, Pneumonia, ?Possible amiodarone toxicity and Acute on chronic HFpEF Per primary team, "Palliative care consulted for goals of care discussion; patient had multiple hospitalization recently; her prognosis is poor due to her advanced age, multiple comorbidities and her respiratory status. Pulmonology and cardiology both recommend palliative care consultation." And, "Discussed with patient's daughter over the phone regarding patient's overall condition on Novembernd November 20,. Her prognosis is overall guarded due to multiple medical issues, [id number] hospitalization and advance age. Plan to continue medical intervention for the time being; CODE STATUS is DNR/DNI. If patient decompensates; plan to transition over to comfort care. Palliative care consulted as well." Radha is seen bedside together with her daughter, son-in-law and another [id number]. Her family report "she looks better in person than she does on paper." And daughter adds a perception that providers have been coming in here emphasizing "how bad she is." Son-in-law states they do not have a clear understanding of what is the cause of her respiratory issues. They also feel that these are issues that she may be able to recover from she did not require oxygen prior to this admission. Patient is sitting in recliner chair at the side of her bed. She is awake and alert and oriented to person and place but easily confused with any difficult or prolonged discussion. She is not able to follow a lot of details. Allergies Allergy/AdvReac Type Severity Reaction Status Date / Time amoxicillin Allergy Intermediate Unknown Verified 08/18/23 14:25 sulfamethoxazole Allergy Intermediate Rash Verified 08/18/23 14:25 tetanus toxoid, adsorbed Allergy Intermediate HIVES Verified 08/18/23 14:25 tetracycline Allergy Intermediate hives Verified 08/18/23 14:25 trimethoprim Allergy Intermediate Rash Verified 08/18/23 14:25 rosuvastatin AdvReac Intermediate Muscle Verified 08/18/23 14:25 stiffness Home Medications Medication Instructions Recorded Confirmed Type docusate sodium 100 mg capsule 100 mg PO HS 06/25/20 11/19/23 History (Col-Rite) glipizide 5 mg tablet 10 mg PO QAM 06/25/20 11/19/23 History cholecalciferol (vitamin D3) 25 50 mcg PO QAM 11/09/20 11/19/23 History mcg (1,000 unit) tablet (Vitamin D3) vit C 250 mg-vit E 90 mg-zinc 40 1 tab PO BID 11/09/20 11/19/23 History mg-copper 1 [id number] capsule (PreserVision AREDS-2) Saccharomyces boulardii 250 mg 250 mg PO DAILY 03/15/22 11/19/23 History capsule acetaminophen 500 mg tablet 1,000 mg PO Q8H PRN FEVER 03/15/22 11/19/23 History (Tylenol Extra Strength) >100.5/MODERATE PAIN amiodarone 200 mg tablet 200 mg PO QAM 03/15/22 11/19/23 History ferrous sulfate 325 mg (65 mg 325 mg PO QAM 03/15/22 11/19/23 History iron) tablet ketoconazole 2 % shampoo 1 ea topical 3XWK 03/15/22 11/19/23 History cyanocobalamin (vitamin B-12) 1,000 mcg sublingual DAILY 10/27/22 11/19/23 History 1,000 mcg sublingual tablet mupirocin 2 % topical ointment 1 applic topical HS 10/27/22 11/19/23 History diclofenac sodium 1 % topical gel 1 ea topical Q12 PRN joint pain 02/08/23 11/19/23 History vibegron 75 mg tablet (Gemtesa) 75 mg PO DAILY #90 tabs 09/28/23 11/19/23 Rx aspirin 81 mg chewable tablet 81 mg PO 3XWK 11/11/23 11/19/23 History (Aspirin Childrens) levothyroxine 112 mcg tablet 112 mcg PO DAILYBB 11/11/23 11/19/23 History loperamide 2 mg tablet 2 mg PO Q8 PRN Diarrhea 11/11/23 11/19/23 History loratadine 10 mg tablet 10 mg PO Q OTHER DAY 11/11/23 11/19/23 History melatonin 3 mg capsule 3 mg PO HS 11/11/23 11/19/23 History menthol 0.44 %-zinc oxide 20.6 % 1 applic topical QS 11/11/23 11/19/23 History topical ointment (Calmoseptine) metoprolol tartrate 25 mg tablet 12.5 mg PO BID 11/11/23 11/19/23 History metronidazole 0.75 % topical cream 1 applic topical BID 11/11/23 11/19/23 History omeprazole 20 mg capsule,delayed 20 mg PO QAM 11/11/23 11/19/23 History release peg 400-propylene glycol (PF) 0.4 1 drp OPB .Q 2HRS WHILE AWAKE 11/11/23 11/19/23 History %-0.3 % eye drops in a dropperette (Systane (PF)) psyllium 1 ea PO DAILY 11/11/23 11/19/23 History rosuvastatin 10 mg tablet 10 mg PO HS 11/11/23 11/19/23 History sertraline 25 mg tablet 25 mg PO QAM 11/11/23 11/19/23 History tobramycin-dexamethasone 0.3 %-0.1 1 applic OPB HS 11/11/23 11/19/23 History % eye ointment (TobraDex) lactobacillus combination no.4 3 3,000 mmu cells PO DAILY 1 week #7 11/17/23 11/19/23 Rx billion cell capsule (Probiotic) caps warfarin 1 mg tablet 1.5 mg (1.5 x 1 mg) PO DAILY #45 11/17/23 11/19/23 Rx tabs Patient History Medical History (Updated 11/22/23 @ 10:10 by Natalie Connor DNP) Palliative care by specialist Advanced care planning/counseling discussion Failure to thrive in adult Weakness generalized Dyspnea and respiratory abnormalities Idiopathic interstitial pneumonia Acute hypoxemic respiratory failure Gross hematuria CKD (chronic kidney disease) stage 4, GFR 15-29 ml/min History of MRSA infection History of COVID-19 History of traumatic subdural hematoma Symptomatic anemia Recurrent UTI Acute on chronic anemia Candiduria Cystitis Admitted to intensive care unit Sepsis Left knee DJD Closed left hip fracture s/p repair UTI (urinary tract infection) Atrial fibrillation with RVR Volume depletion CRISPIN (acute kidney injury) Sepsis Gram-negative bacteremia Paroxysmal A-fib DVT prophylaxis T2DM (type 2 diabetes mellitus) HTN (hypertension) HLD (hyperlipidemia) Hypothyroidism Surgical History History of hysterectomy History of cholecystectomy History of breast biopsy Family History Mother Breast cancer Hypertension Father , at 92 No problems noted. Social History Smoking Status: Never smoker Second Hand Exposure: No; Do You Dip or Chew Tobacco: No; Tobacco Cessation Education Requested by Patient: No Hx Alcohol Use: No Hx Substance Use: No Preferred Language: Georgian Communication Ability: Effective Butcher All Round Required: No Beliefs That Will Affect Care: None marital status: / Current Living Situation: Detention Current Living Situation Comment: [facility] How many Children do You have: 1 Other Information That Helps Us Care for You: Yes other: ambulates with cane Feels Safe at Home: Yes Assistive Devices: Walker and Wheelchair Assistive Devices Comment: 02 for 1 week, after patient was discharged from the hospital Review of Systems Review of Systems: All systems reviewed & are unremarkable except as noted in Subjective Physical Exam Physical Exam: Chronically chronically ill female, cachectic, sitting out of bed in recliner chair, semi-reclined. Alopecia and skin changes at the top of her skull, some of the skin changes include second brown plaque-like lesions. There is no erythema or discharge noted. There is bitemporal wasting. Pupils are equal, round and reactive to light. Extraocular movements are intact. Neck is supple. She is wearing a facemask for oxygen support. She is very hard of hearing. Respiratory distress noted. There is use of accessory muscles. There is conversational dyspnea. She speaks in 4 word sentences. She will often stop and wander off topic or not recall what she was answering. Lungs with bilateral coarse rhonchi, some crackles, no overt wheezing. Tachycardic S1-S2. Abdomen soft but mildly distended. Generalized weakness. There is mild edema to the lower extremities. Skin is otherwise pale and cool to touch. + Scattered ecchymoses on skin. Nailbeds are pale, slightly dusky. Results & Data Vital Signs (Past 12 Hours) Vital Signs Temp Pulse Pulse Resp BP Pulse Ox O2 Del Method 11/22/23 08:01 36.4 C L 63 18 103/51 L 90 Nasal Cannula 11/22/23 07:20 63 22 94 Nasal Cannula 11/22/23 05:20 65 24 95 11/22/23 03:00 36.5 C 65 18 96/62 L 90 Oxymask 11/22/23 03:00 36.4 C L 68 23 108/44 L 92 Nasal Cannula 11/21/23 23:01 78 23 91 BiPAP 11/21/23 23:00 Nasal Cannula 11/21/23 22:58 78 23 91 O2 Flow Rate FiO2 11/22/23 08:01 6 11/22/23 07:20 8 11/22/23 05:20 60 11/22/23 03:00 15 11/22/23 03:00 11/21/23 23:01 60 11/21/23 23:00 6 11/21/23 22:58 60 Laboratory Results data reviewed Diagnostic Findings data reviewed PG Care Time/CCT Total # of Minutes Spent Total Time Spent with Patient: Total time spent is greater than 50% in coordination of care (as documented) at patient's floor/unit and/or counseling patient: I spent 70 minutes overall addressing this case: 20min in medical data review/discussion with referring provider(s) and/or preparation for the visit 20 min in direct interaction with the patient/exam 00 min in Advance Care Planning/Goals of Care discussions as detailed above in note (must be >16min) 15 min in subsequent review and synthesis of assessment and plan 15 min communicating with other providers regarding the patient's case: [place] [address] IN/OBS CONSULT LVL 4,60M Patient Type New History Comprehensive Exam Comprehensive Medical Decision Making High Complexity Diagnoses Dyspnea and respiratory abnormalities R06.00; R06.89 Weakness generalized R53.1 Failure to thrive in adult R62.7 Advanced care planning/counseling discussion Z71.89 Palliative care by specialist Z51.5 Acute hypoxic respiratory failure J96.01 (HFpEF) heart failure with preserved ejection fraction I50.30 CKD (chronic kidney disease) stage 4, GFR 15-29 ml/min N18.4 Paroxysmal A-fib I48.0
--- NOTE | 2023-11-22 12:05 | Pharmacy Report ---
Pharmacy Glycemic Short Note 2 - Date of Service November 22, 2023 - Glycemic Short BSG Results (Last 24 hours): 11/21/23 11/21/23 11/22/23 16:13 20:39 06:59 Glucose 132 H POC Glucose 113 H 75 11/22/23 11/22/23 07:09 11:15 Glucose POC Glucose 143 H 231 H OUTPATIENT ANTIDIABETIC REGIMEN: * glipizide 10mg QAM * HbA1c 6.1% (11/12/23) ASSESSMENT: 11/21 * Radha received 72 units of insulin yesterday (30 were basal) * Fasting BSG acceptable this AM, will continue current basal regimen * BSGs trended down significantly yesterday, loosened Novolog parameters some * Lunchtime BSG elevated today likely due to late administration of morning insulin 11/20 * Patient received 52 nits of insulin yesterday, 20 basal, blood sugar still elevated d/t IV steroids. Remains on Solu-Medrol 40mg IV Q12H. * Tighten CF/CR and increase basal at this time. 11/19 * Radha is an 88 YOF admitted for hypoxia and has a history of T2DM. Pharmacy has been consulted to assist with glycemic management while inpatient. * She is receiving IV methylprednisolone 40mg BID for pneumonitis as well as cefepime and vancomycin to cover possible aspiration pneumonia. * She was started on loose NovoLog coverage and BSGs trended up with IV steroids, carbohydrate coverage tightened * Lantus 0.4units/kg given with dinner to cover steroids, will reassess basal in AM PLAN FOR INPATIENT GLYCEMIC CONTROL: * Hold outpatient oral diabetes medications * Basal insulin * Lantus 30 units SQ Daily * Bolus insulin * NovoLog per scale ACHS or Q6hrs while NPO * Goal Range: Low 110 mg/dL - High 140 mg/dL * Correction Factor: 20 mg/dL/unit * Nutritional / Prandial insulin per carb ratio of 1 unit per 6 grams CHO consumed
--- NOTE | 2023-11-22 12:23 | Hospitalist Progress Note ---
Date of Service November 22, 2023 Assessment & Plan (1) Acute respiratory failure with hypoxia and hypercapnia: (2) Atypical pneumonia: (3) Altered mental status: (4) HTN (hypertension): (5) HLD (hyperlipidemia): (6) (HFpEF) heart failure with preserved ejection fraction: (7) CKD (chronic kidney disease) stage 4, GFR 15-29 ml/min: (8) T2DM (type 2 diabetes mellitus): (9) Hypothyroidism: Plan: Patient is a 88-year-old female with PMHx of type 2 diabetes, hypothyroidism, hyperlipidemia, paroxysmal atrial fibrillation, hypertension, chronic kidney disease stage IV, anemia due to chronic kidney disease, history of MRSA infection, history of depression, history of traumatic subdural hematoma, history of COVID, history of ambulatory dysfunction from [facility] presents to the hospital with acute onset of shortness of breath. She was recently hospitalized from November 11 to November 17 and was treated for atypical pneumonia. Acute on Chronic Respiratory Failure Pneumonia Possible amiodarone toxicity Acute on chronic HFpEF -Patient presents with acute onset of shortness of breath. Recent hospitalization for similar complaints. -No leukocytosis -Chest x-ray on admission personally reviewed multifocal patchy bilateral opacities. Small bilateral pleural effusions Blood cultureno growth till date ABG reviewed; mild respiratory acidosis Patient is started on cefepime and vancomycin. Vancomycin discontinued as MRSA is negative. Plan to treat for 7 days of antibiotics IV methylprednisolone as per pulmonology; plan to treat for 5-day As needed Lasix Amiodarone is stopped as it was thought that it might have contributed to pulmonary toxicity. Palliative care consulted for goals of care discussion; patient had multiple hospitalization recently; her prognosis is poor due to her advanced age, multiple comorbidities and her respiratory status. Pulmonology and cardiology both recommend palliative care consultation. Atrial Fibrillation Supratherapeutic INR Demand ischemia Acute blood loss anemia status post 1 unit of transfusion in November 19 EKG on admission personally reviewed; sinus rhythm with PACs INR reviewed; supratherapeutic status post vitamin K 2.5 mg on November 19 Hemoglobin down trended to 6.5; improved with transfusion Unclear about source of bleeding. Continue Protonix twice daily Awaiting stool occult. Monitor for GI bleed Hold Coumadin. Amiodarone on hold; discussed with cardiology. Continue on metoprolol 12.5 twice daily, statin Acute kidney injury on CKD Likely due to sepsis Creatinine continues to uptrend Monitor urine output Avoid nephrotoxic agent Renal ultrasound nurse for any acute finding Creatinine is around 1.8. DM type II -Last A1c 6.6 on 09/06/2023 -ISS with Accu-Cheks ACHS -HH/DM diet allowed Glycemic pharmacy on consult. Hypothyroidism -Chronic, stable, cont levothyroxine DVT ppx: Coumadin on hold due to possible bleeding. Lines: 2 PIV CODE: DNR/DNI FEN/GI: HH/DM diet Discussed with patient's daughter over the phone regarding patient's overall condition on NovemberNovember 20,. Her prognosis is overall guarded due to multiple medical issues, [id number] hospitalization and advance age. Plan to continue medical intervention for the time being; CODE STATUS is DNR/DNI. If patient decompensates; plan to transition over to comfort care. Palliative care consulted as well. Time spent evaluating patient, direct bedside care, chart review, placing orders, interpretation of diagnostic studies, discussion with consultants, patient, and family members, as well as other required patient management activities is 50-minute Please note the above document was generated using voice recognition software. It may contain grammatical, syntax or spelling errors. Any formal questions or concerns about the content, text or information contained within the body of this dictation should be directly addressed to the provider for clarification Admission and Anticipated Discharge Date Admission Date: November 19, 2023 Subjective Patient reports she feels uncomfortable. She denies any pain. No significant overnight events. Review of Systems Review of Systems: All systems reviewed & are unremarkable except as noted in Subjective Physical Exam Physical Exam: Constitutional: Awake, oriented to self and person. Respiratory: Bilateral crackles present. Decreased breath sound entry bilaterally. Cardiovascular: RRR, no murmur, no edema Vessels: no JVD or carotid bruit Chest: normal inspection of chest Abdomen: Soft, nontender Musculoskeletal: no cyanosis or clubbing, extremities motor strength 5/5 Skin: no rashes, warm and dry normal turgor Neurologic: Grossly intact Results & Data Results & Data Vital Signs (Past 12 Hours) Vital Signs Temp Pulse Pulse Resp BP Pulse Ox O2 Del Method 11/22/23 11:28 36.4 C L 84 19 115/69 82 L Nasal Cannula 11/22/23 10:55 90 22 88 L Nasal Cannula 11/22/23 08:01 36.4 C L 63 18 103/51 L 90 Nasal Cannula 11/22/23 07:20 63 22 94 Nasal Cannula 11/22/23 05:20 65 24 95 11/22/23 03:00 36.5 C 65 18 96/62 L 90 Oxymask 11/22/23 03:00 36.4 C L 68 23 108/44 L 92 Nasal Cannula O2 Flow Rate FiO2 11/22/23 11:28 8 11/22/23 10:55 15 11/22/23 08:01 6 11/22/23 07:20 8 11/22/23 05:20 60 11/22/23 03:00 15 11/22/23 03:00 (3) Altered mental status Altered mental status type: unspecified Qualified Code(s): R41.82 - Altered mental status, unspecified (4) HTN (hypertension) Hypertension type: essential hypertension Qualified Code(s): I10 - Essential (primary) hypertension (5) HLD (hyperlipidemia) Hyperlipidemia type: unspecified Qualified Code(s): E78.5 - Hyperlipidemia, unspecified (8) T2DM (type 2 diabetes mellitus) Diabetes mellitus manager intermediate insulin use: without halfway use Diabetes mellitus complication status: with kidney complications Diabetes mellitus complication detail: with chronic kidney disease Chronic kidney disease stage: stage 3 (moderate) Qualified Code(s): E11.22 - Type 2 diabetes mellitus with diabetic chronic kidney disease; N18.3 - Chronic kidney disease, stage 3 (moderate) (9) Hypothyroidism Hypothyroidism type: unspecified Qualified Code(s): E03.9 - Hypothyroidism, unspecified
--- NOTE | 2023-11-22 16:01 | Cardiology Progress Note ---
Date of Service November 22, 2023 Assessment & Plan (1) Pulmonary vascular congestion: (2) Atypical pneumonia: Plan: abx and steroids per pulmonary and primary team (3) Idiopathic interstitial pneumonia: Plan: ?etiology? recurrent aspiration PNA/PNA with possibly amiodarone contributing (4) Acute hypoxemic respiratory failure: Plan: doing better since getting BiPap and medications (5) Acute on chronic heart failure with preserved ejection fraction (HFpEF): Plan: got IV lasix on 11/18 will assess daily (6) Paroxysmal A-fib: Plan: stop amiodarone continue coumadin and metoprolol Plan 88y/o female re-admitted for recurrent acute respiratory failure with hypoxia suspected to be secondary to worsening multi-focal pneumonitis (?aspiration PNA? ?amio related?), as well as some acute on chronic heart failure with persevered EF. Of note patient does not have she has calcification of the MV and AV but based on most recent echo there is no stenosis effecting flow. Continue abx and steroids per primary team and pulmonary I think given the worsening Chest imaging it is reasonable to stop amiodarone but it will remain in her system for weeks; hopefully she will not have recurrent AF As far as IV diuretics she got a dose yesterday and seems to be doing better; i recommend reassessing on a daily basis and give as needed Pt has a lot of co-morbidities and this acute pulmonary recurrent issues are not helping on top of her pancytopenia-i would consider palliative care-her primary asphalt dauber is covering on wednesday so will discuss further with him I discussed the case and my assessment with the hospitalist and he agrees with my plan 11/22/2023 Assessment plan as previously has been recommending IV diuretics as needed. Reportedly has received this admission though none document Despite declining renal function would consider additional dose Limited opportunities for improvement Continue to hold amiodarone Admission and Anticipated Discharge Date Admission Date: November 19, 2023 Subjective Patient seen and examined, chart, medications, telemetry reviewed. Persistently dyspneic no acute complaints of chest pain or discomfort I's and O's negative but no diuretics administered this admission No further atrial rhythm currently off amiodarone Physical Exam Constitutional: + ill appearing and + cachectic Eyes: PERRL, conjunctivae normal, anicteric sclerae Respiratory: Auscultation: + diminished lung sounds and + crackles Cardiovascular: Rate/Rhythm: regular rate and regular rhythm Vessels: no JVD Extremities: no edema Results & Data Vital Signs (Past 12 Hours) Vital Signs Temp Pulse Pulse Resp BP Pulse Ox O2 Del Method 11/22/23 15:49 90 20 90 Oxymask 11/22/23 11:28 36.4 C L 84 19 115/69 82 L Nasal Cannula 11/22/23 10:55 90 22 88 L Nasal Cannula 11/22/23 08:01 36.4 C L 63 18 103/51 L 90 Nasal Cannula 11/22/23 07:20 63 22 94 Nasal Cannula 11/22/23 05:20 65 24 95 O2 Flow Rate FiO2 11/22/23 15:49 15 11/22/23 11:28 8 11/22/23 10:55 15 11/22/23 08:01 6 11/22/23 07:20 8 11/22/23 05:20 60 Laboratory Results Laboratory Results - last 24 hr 11/21/23 11/21/23 11/22/23 16:13 20:39 03:20 WBC RBC Hgb Hct MCV MCH MCHC RDW Std Deviation RDW Coeff of Hope Plt Count MPV Immature Gran % (Auto) Neut % (Auto) Lymph % (Auto) [place] % (Auto) Eos % (Auto) Baso % (Auto) Neut # (Auto) Lymph # (Auto) [place] # (Auto) Eos # (Auto) Baso # (Auto) Immature Gran # (Auto) PT INR Sodium Potassium Chloride Carbon Dioxide Anion Gap BUN Creatinine Est Cr Clr Drug Dosing Est GFR ( Amer) Est GFR (Non-Af Amer) BUN/Creatinine Ratio Glucose POC Glucose 113 H 75 Calcium Urine Color Yellow Urine Appearance Slightly Cloudy Urine pH 5.0 Ur Specific [place] 1.020 Urine Protein 1+ H Urine Glucose (UA) Negative Urine Ketones Trace H Urine Blood Negative Urine Nitrite Negative Urine Bilirubin Negative Urine Urobilinogen Negative Ur Leukocyte Esterase Trace H Urine RBC 0-4 Urine WBC 0-5 Ur Epithelial Cells >30 H Uric Acid Crystals Present A Urine Bacteria Negative 11/22/23 11/22/23 11/22/23 06:59 07:09 11:15 WBC 8.57 RBC 3.19 L Hgb 8.2 L Hct 27.8 L MCV 87.1 MCH 25.7 MCHC 29.5 L RDW Std Deviation 55.0 H RDW Coeff of Hope 18.4 H Plt Count 132 MPV 11.7 Immature Gran % (Auto) 0.7 Neut % (Auto) 77.9 Lymph % (Auto) 17.3 [place] % (Auto) 4.0 Eos % (Auto) 0.0 Baso % (Auto) 0.1 Neut # (Auto) 6.68 H Lymph # (Auto) 1.48 [place] # (Auto) 0.34 Eos # (Auto) 0.00 Baso # (Auto) 0.01 Immature Gran # (Auto) 0.06 PT 23.7 H INR 2.3 H Sodium 144 Potassium 4.8 Chloride 109 H Carbon Dioxide 27 Anion Gap 8 BUN 76 H Creatinine 1.83 H Est Cr Clr Drug Dosing 18.0 Est GFR ( Amer) 27.9 Est GFR (Non-Af Amer) 24.0 BUN/Creatinine Ratio 41.5 H Glucose 132 H POC Glucose 143 H 231 H Calcium 7.7 L Urine Color Urine Appearance Urine pH Ur Specific [place] Urine Protein Urine Glucose (UA) Urine Ketones Urine Blood Urine Nitrite Urine Bilirubin Urine Urobilinogen Ur Leukocyte Esterase Urine RBC Urine WBC Ur Epithelial Cells Uric Acid Crystals Urine Bacteria
--- NOTE | 2023-11-22 19:44 | Palliative Family Discussion ---
Date of Service November 22, 2023 Patient Directed Conference Time of Meetinam Participants: Natalie Connor DNP Patient participation:yes Patient Support System: Daughter, son-in-law, [id number] Other Healthcare Provider Participation: None Meeting Location: Patient bedside Advanced Directive available: No advance directives available to me, however patient reaffirms no CODE STATUS, DNR/DNI A family meeting was held for MARCO ANTONIO BRUNNER. This meeting was necessary for determining the appropriate course of treatment. Topics of Discussion Topics of Discussion: 1. Progressive nature of heart failure, CKD, and respiratory complications which can result this discussed in great detail. Also reviewed potential respiratory related sequela from COVID infection and the frailty that comes with advanced age. Patient CKD is now stage IV. She is more than likely not a safe candidate for hemodialysis. Respiratory failure now requiring oxygen by facemask and she has not tolerated weaning to nasal cannula. Her mentation has changed somewhat and she is more forgetful. 2. Family is slowly coming to terms with the advanced nature of her illness but have not been able to openly discuss the potential "what if" scenarios if she does not get "better." We spoke about the importance of advanced illness planning especially planning for the "what if" scenarios so that we had a plan of action to pursue no matter what situation arose. Also discussed that it is important to know from patient what her wishes are under different circumstances so that the care she gets is delivered in a manner that is aligned with her p ersonal preferences, desires and choices. Other Content of Meetin. Opportunity given for participants to speak and ask questions. 2. Participants were assured of attention to patient comfort. 3. Reassurance provided. 4. Support was provided for informed, good-brennen decisions. 5. Emotions expressed by family were acknowledged and addressed. 6. Follow-up Outpatient: Patient and family advised of my outpatient palliative medicine clinic and contact information was provided 7. Plan of Care: At this time, family would like to see how she does over the next few days. They continue to hold that she will "get better" and oxygen needs will diminish to where she returns to room air and does not require supplemental oxygen support. They also hope that she can return to her prior level of functionality. TS 20 min face to face family meeting in addition to consult completed earlier.
[2023-11-23 10:24] LABS: Basophils # (auto) 0.01 K/uL (0.00-0.20); Basophils % (auto) 0.1 %; Hematocrit (blood only) 30.5 % (37.0-47.0); Hemoglobin 8.9 g/dl (12.0-16.0); Immature Granulocytes # (auto) 0.04 K/uL (0.01-0.20); Immature Granulocytes % (auto) 0.5 %; Lymphocytes # (auto) 1.29 K/uL (1.20-3.40); Lymphocytes % (auto) 16.9 %; Mean Corpuscular Hemoglobin 25.9 pg (25.0-34.0); Mean Corpuscular Hgb Conc 29.2 g/dL (32.0-36.0); Mean Corpuscular Volume 88.7 fL (80.0-100.0); Mean Platelet Volume 11.5 fL (9.4-12.4); Monocytes # (auto) 0.19 K/uL (0.11-0.59); Monocytes % (auto) 2.5 %; Neutrophils # (auto) 6.09 K/uL (1.40-6.50); Platelet Count 127 K/uL (130-400); RDW Coefficient of Variation 18.6 % (11.5-14.5); RDW Standard Deviation 55.5 fL (36.4-46.3); Red Blood Count 3.44 M/uL (4.20-5.40); White Blood Count 7.62 K/ul (4.8-10.8)
[2023-11-23 10:41] LABS: Albumin Globulin Ratio 1.2 (0.9-2); Albumin Level 2.8 gm/dl (3.4-5.0); BUN Creatinine Ratio 49.1 (10-20); Bilirubin,Total 0.8 mg/dl (0.2-1.0); Calcium 7.8 mg/dl (8.6-10.3); Creatinine Clr Calc Pharmacy 20.2 ml/min; Est GFR (Non-African American) 27.6 ml/min; Globulin 2.3 gm/dl (2.5-4.0); Potassium 5.1 mmol/L (3.5-5.1); Total Protein 5.1 gm/dl (6.0-8.3)
[2023-11-23 10:47] LABS: INR 2.3 (0.9-1.1); Prothrombin Time 23.5 Seconds (9.0-12.0)
--- NOTE | 2023-11-23 13:09 | Nephrology Consultation ---
Date of Consultation November 23, 2023 Assessment & Plan (1) CRISPIN (acute kidney injury): She has CRISPIN on top of background CKD 3 in the setting Of hypoxia and Pneumonia/CHF. Some rise in creat in the setting of Hypoxia was expected. Now creat is trending down towards baseline. She is still hypoxic and on high o2 need. better to keep her on dry side. I have no problem with some lasix as determined by primary team and cardiology. lasix 40 iv x 1 is fine for today Did explain the patient and her Daughter that the kidney issue is just a minor side issue. jose problem is her recurrent Admissions , failure to thrive and cardio-pulmonary issues. reviewed cardiology and palliative med note. Overall Seems like she is going downhill with Failure to thrive and recurrent pneumonia issues. (2) Acute respiratory failure with hypoxia and hypercapnia: Can give some lasix 40 mg iv x 1. Daughter also feels that when she gets lasix, patients Breathing is better !. Plan Plan discussed with primary team. History of Present Illness Reason for Consultation: CRISPIN and CHF Attending Physician: Houston Isabel MD History of Present Illness 88/F who is a resident of [facility] sent over because of Hypoxia. Admitted 11/19/2023. She has type 2 diabetes, hypothyroidism, hyperlipidemia, paroxysmal atrial fibrillation, hypertension, chronic kidney disease stage 3, anemia due to chronic kidney disease, history of MRSA infection, history of depression, history of traumatic subdural hematoma, history of COVID, history of ambulatory dysfunction from [facility] who presents to the hospital with acute onset of shortness of breath where she was reportedly having O2 sats in the 70s. She was just recently admitted on 11/11 to 11/17 for very similar presentation - she was treated for UTI and then atypical pneumonia starting azithromycin on 11/14 where had improved and then was discharged back to [facility]. her baseline creat is all over the place but on Admission was near normal at 1.25 ( recent baseline 1.1---1.3). Since admission got Intermittent lasix. Creat peaked at 1.95 and now trending down to 1.6. She still has severe Hypoxia needing 15liter/min o2. cards has been seeing the patient. Currently no lasix and no lasix at home also. Daughter very involved and is at bedside. ROS--hard to obtain accurately from patient. updated by Daughter. Gradual declining and failure to thrive and SOB. 12 Systems reviewed and negative o therwise Physical Exam Physical Exam: Constitutional: Awake but not fully oriented. very frail. on high flow o2. Some resp distress. Respiratory: Bilateral crackles present. Decreased breath sound entry bilaterally. Cardiovascular: RRR, no murmur, no edema +ve JVD Abdomen: Soft, nontender Musculoskeletal: no cyanosis or clubbing, extremities motor strength 5/5 Skin: no rashes, warm and dry normal turgor Neurologic: Grossly intact Allergies Allergy/AdvReac Type Severity Reaction Status Date / Time amoxicillin Allergy Intermediate Unknown Verified 08/18/23 14:25 sulfamethoxazole Allergy Intermediate Rash Verified 08/18/23 14:25 tetanus toxoid, adsorbed Allergy Intermediate HIVES Verified 08/18/23 14:25 tetracycline Allergy Intermediate hives Verified 08/18/23 14:25 trimethoprim Allergy Intermediate Rash Verified 08/18/23 14:25 rosuvastatin AdvReac Intermediate Muscle Verified 08/18/23 14:25 stiffness Home Medications Medication Instructions Recorded Confirmed Type docusate sodium 100 mg capsule 100 mg PO HS 06/25/20 11/19/23 History (Col-Rite) glipizide 5 mg tablet 10 mg PO QAM 06/25/20 11/19/23 History cholecalciferol (vitamin D3) 25 50 mcg PO QAM 11/09/20 11/19/23 History mcg (1,000 unit) tablet (Vitamin D3) vit C 250 mg-vit E 90 mg-zinc 40 1 tab PO BID 11/09/20 11/19/23 History mg-copper 1 [id number] capsule (PreserVision AREDS-2) Saccharomyces boulardii 250 mg 250 mg PO DAILY 03/15/22 11/19/23 History capsule acetaminophen 500 mg tablet 1,000 mg PO Q8H PRN FEVER 03/15/22 11/19/23 History (Tylenol Extra Strength) >100.5/MODERATE PAIN amiodarone 200 mg tablet 200 mg PO QAM 03/15/22 11/19/23 History ferrous sulfate 325 mg (65 mg 325 mg PO QAM 03/15/22 11/19/23 History iron) tablet ketoconazole 2 % shampoo 1 ea topical 3XWK 03/15/22 11/19/23 History cyanocobalamin (vitamin B-12) 1,000 mcg sublingual DAILY 10/27/22 11/19/23 History 1,000 mcg sublingual tablet mupirocin 2 % topical ointment 1 applic topical HS 10/27/22 11/19/23 History diclofenac sodium 1 % topical gel 1 ea topical Q12 PRN joint pain 02/08/23 11/19/23 History vibegron 75 mg tablet (Gemtesa) 75 mg PO DAILY #90 tabs 09/28/23 11/19/23 Rx aspirin 81 mg chewable tablet 81 mg PO 3XWK 11/11/23 11/19/23 History (Aspirin Childrens) levothyroxine 112 mcg tablet 112 mcg PO DAILYBB 11/11/23 11/19/23 History loperamide 2 mg tablet 2 mg PO Q8 PRN Diarrhea 11/11/23 11/19/23 History loratadine 10 mg tablet 10 mg PO Q OTHER DAY 11/11/23 11/19/23 History melatonin 3 mg capsule 3 mg PO HS 11/11/23 11/19/23 History menthol 0.44 %-zinc oxide 20.6 % 1 applic topical QS 11/11/23 11/19/23 History topical ointment (Calmoseptine) metoprolol tartrate 25 mg tablet 12.5 mg PO BID 11/11/23 11/19/23 History metronidazole 0.75 % topical cream 1 applic topical BID 11/11/23 11/19/23 History omeprazole 20 mg capsule,delayed 20 mg PO QAM 11/11/23 11/19/23 History release peg 400-propylene glycol (PF) 0.4 1 drp OPB .Q 2HRS WHILE AWAKE 11/11/23 11/19/23 History %-0.3 % eye drops in a dropperette (Systane (PF)) psyllium 1 ea PO DAILY 11/11/23 11/19/23 History rosuvastatin 10 mg tablet 10 mg PO HS 11/11/23 11/19/23 History sertraline 25 mg tablet 25 mg PO QAM 11/11/23 11/19/23 History tobramycin-dexamethasone 0.3 %-0.1 1 applic OPB HS 11/11/23 11/19/23 History % eye ointment (TobraDex) lactobacillus combination no.4 3 3,000 mmu cells PO DAILY 1 week #7 11/17/23 11/19/23 Rx billion cell capsule (Probiotic) caps warfarin 1 mg tablet 1.5 mg (1.5 x 1 mg) PO DAILY #45 11/17/23 11/19/23 Rx tabs Patient History Medical History (Updated 11/23/23 @ 13:18 by Gold Davidson MD) Palliative care by specialist Advanced care planning/counseling discussion Failure to thrive in adult Weakness generalized Dyspnea and respiratory abnormalities Idiopathic interstitial pneumonia Acute hypoxemic respiratory failure Gross hematuria CKD (chronic kidney disease) stage 4, GFR 15-29 ml/min History of MRSA infection History of COVID-19 History of traumatic subdural hematoma Symptomatic anemia Recurrent UTI Acute on chronic anemia Candiduria Cystitis Admitted to intensive care unit Sepsis Left knee DJD Closed left hip fracture s/p repair UTI (urinary tract infection) Atrial fibrillation with RVR Volume depletion CRISPIN (acute kidney injury) Sepsis Gram-negative bacteremia Paroxysmal A-fib DVT prophylaxis T2DM (type 2 diabetes mellitus) HTN (hypertension) HLD (hyperlipidemia) Hypothyroidism Surgical History History of hysterectomy History of cholecystectomy History of breast biopsy Family History Mother Breast cancer Hypertension Father , at 92 No problems noted. Social History Smoking Status: Never smoker Second Hand Exposure: No; Do You Dip or Chew Tobacco: No; Tobacco Cessation Education Requested by Patient: No Hx Alcohol Use: No Hx Substance Use: No Preferred Language: Austrian Communication Ability: Effective Public Health Informatician Required: No Beliefs That Will Affect Care: None marital status: / Current Living Situation: Correction Current Living Situation Comment: [facility] How many Children do You have: 1 Other Information That Helps Us Care for You: Yes other: ambulates with cane Feels Safe at Home: Yes Assistive Devices: Walker and Wheelchair Assistive Devices Comment: 02 for 1 week, after patient was discharged from the hospital Results & Data Vital Signs (Past 12 Hours) Vital Signs Temp Pulse Resp BP Pulse Ox O2 Del Method O2 Flow Rate 11/23/23 11:39 36.5 C 67 20 141/54 H 92 Oxymask 15 11/23/23 11:07 70 22 94 Oxymask 12 11/23/23 08:11 64 20 86 L Nasal Cannula 14 11/23/23 07:47 36.5 C 62 20 138/68 94 Oxymask 14 11/23/23 03:19 60 18 91 Oxymask 15 11/23/23 03:08 37.0 C 69 22 122/67 94 Oxymask 15 Laboratory Results reviewed Diagnostic Findings reviewed CXr and CT chest----IMPRESSION: 1. Multifocal patchy bilateral airspace opacities have slightly progressed. 2. Small bilateral pleural effusions again noted. Renal US --unremarkable.
[2023-11-23] MEDS: INSULIN ASPART PER UNIT CHARGE SC SCH (13:12)
[2023-11-23] MEDS: FUROSEMIDE 40 MG/4 ML VIAL IV ONE (14:54)
--- NOTE | 2023-11-23 16:05 | Hospitalist Progress Note ---
Date of Service November 23, 2023 Assessment & Plan (1) Acute respiratory failure with hypoxia and hypercapnia: (2) Atypical pneumonia: (3) Altered mental status: (4) HTN (hypertension): (5) HLD (hyperlipidemia): (6) (HFpEF) heart failure with preserved ejection fraction: (7) CKD (chronic kidney disease) stage 4, GFR 15-29 ml/min: (8) T2DM (type 2 diabetes mellitus): (9) Hypothyroidism: Plan: Patient is a 88-year-old female with PMHx of type 2 diabetes, hypothyroidism, hyperlipidemia, paroxysmal atrial fibrillation, hypertension, chronic kidney disease stage IV, anemia due to chronic kidney disease, history of MRSA infection, history of depression, history of traumatic subdural hematoma, history of COVID, history of ambulatory dysfunction from [facility] presents to the hospital with acute onset of shortness of breath. She was recently hospitalized from November 11 to November 17 and was treated for atypical pneumonia. Acute on Chronic Respiratory Failure Pneumonia Possible amiodarone toxicity Acute on chronic HFpEF -Patient presents with acute onset of shortness of breath. Recent hospitalization for similar complaints. -No leukocytosis -Chest x-ray on admission personally reviewed multifocal patchy bilateral opacities. Small bilateral pleural effusions Blood cultureno growth till date ABG reviewed; mild respiratory acidosis Patient is started on cefepime and vancomycin. Vancomycin discontinued as MRSA is negative. Plan to treat for 7 days of antibiotics IV methylprednisolone as per pulmonology; plan to treat for 5-day As needed Lasix; patient received 1 dose of Lasix today. Amiodarone is stopped as it was thought that it might have contributed to pulmonary toxicity. Palliative care consulted for goals of care discussion; patient had multiple hospitalization recently; her prognosis is poor due to her advanced age, multiple comorbidities and her respiratory status. Pulmonology and cardiology both recommend palliative care consultation. Plan is to continue medical interv ention for the time being; if patient decompensatetransition to comfort care Atrial Fibrillation Supratherapeutic INR Demand ischemia Acute blood loss anemia status post 1 unit of transfusion in November 19 EKG on admission personally reviewed; sinus rhythm with PACs INR reviewed; supratherapeutic status post vitamin K 2.5 mg on November 19 Hemoglobin down trended to 6.5; improved with transfusion Hemoglobin has stabilized around 8.9. Continue Protonix twice daily; plan to treat for 12-week Monitor for any signs or symptoms of GI bleed. Hold Coumadin. Amiodarone on hold; discussed with cardiology. Continue on metoprolol 12.5 twice daily, statin Acute kidney injury on CKD Likely due to sepsis Creatinine continues to uptrend; stabilized around 1.6-1.8 Monitor urine output Avoid nephrotoxic agent Renal ultrasoundnegative for any acute finding Nephrology on board; Lasix as needed DM type II -Last A1c 6.6 on 09/06/2023 -ISS with Accu-Cheks ACHS -HH/DM diet allowed Glycemic pharmacy on consult. Hypothyroidism -Chronic, stable, cont levothyroxine DVT ppx: Coumadin on hold due to possible bleeding. Lines: 2 PIV CODE: DNR/DNI FEN/GI: HH/DM diet Discussed with patient's daughter over the phone regarding patient's overall condition multiple times. Her prognosis is overall guarded due to multiple medical issues, [id number] hospitalization and advance age. Plan to continue medical intervention for the time being; CODE STATUS is DNR/DNI. If patient decompensates; plan to transition over to comfort care. Palliative care on board as well Time spent evaluating patient, direct bedside care, chart review, placing orders, interpretation of diagnostic studies, discussion with consultants, patient, and family members, as well as other required patient management activities is 50-minute Please note the above document was generated using voice recognition software. It may contain grammatical, syntax or spelling errors. Any formal questions or concerns about the content, text or information contained within the body of this dictation should be directly addressed to the provider for clarification Admission and Anticipated Discharge Date Admission Date: November 19, 2023 Subjective Patient seen and examined at bedside. She is sitting up on the chair at the side of the bed; denies any pain or discomfort No significant events overnight. Review of Systems Review of Systems: All systems reviewed & are unremarkable except as noted in Subjective Physical Exam Physical Exam: Constitutional: Awake, oriented to self and person. Respiratory: Bilateral crackles present. Decreased breath sound entry bilaterally. Cardiovascular: RRR, no murmur, no edema Vessels: no JVD or carotid bruit Chest: normal inspection of chest Abdomen: Soft, nontender Musculoskeletal: no cyanosis or clubbing, extremities motor strength 5/5 Skin: no rashes, warm and dry normal turgor Neurologic: Grossly intact Results & Data Results & Data Vital Signs (Past 12 Hours) Vital Signs Temp Pulse Resp BP Pulse Ox O2 Del Method O2 Flow Rate 11/23/23 14:30 65 22 95 Oxymask 12 11/23/23 11:39 36.5 C 67 20 141/54 H 92 Oxymask 15 11/23/23 11:07 70 22 94 Oxymask 12 11/23/23 08:11 64 20 86 L Nasal Cannula 14 11/23/23 07:47 36.5 C 62 20 138/68 94 Oxymask 14 (3) Altered mental status Altered mental status type: unspecified Qualified Code(s): R41.82 - Altered mental status, unspecified (4) HTN (hypertension) Hypertension type: essential hypertension Qualified Code(s): I10 - Essential (primary) hypertension (5) HLD (hyperlipidemia) Hyperlipidemia type: unspecified Qualified Code(s): E78.5 - Hyperlipidemia, unspecified (8) T2DM (type 2 diabetes mellitus) 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
--- NOTE | 2023-11-23 16:22 | Cardiology Progress Note ---
Date of Service November 23, 2023 Assessment & Plan (1) Pulmonary vascular congestion: (2) Atypical pneumonia: Plan: abx and steroids per pulmonary and primary team (3) Idiopathic interstitial pneumonia: (4) Acute hypoxemic respiratory failure: (5) Acute on chronic heart failure with preserved ejection fraction (HFpEF): (6) Paroxysmal A-fib: Plan: stop amiodarone continue coumadin and metoprolol Plan 88y/o female re-admitted for recurrent acute respiratory failure with hypoxia suspected to be secondary to worsening multi-focal pneumonitis (?aspiration PNA? ?amio related?), as well as some acute on chronic heart failure with persevered EF. Of note patient does not have she has calcification of the MV and AV but based on most recent echo there is no stenosis effecting flow. Continue abx and steroids per primary team and pulmonary I think given the worsening Chest imaging it is reasonable to stop amiodarone but it will remain in her system for weeks; hopefully she will not have recurrent AF As far as IV diuretics she got a dose yesterday and seems to be doing better; i recommend reassessing on a daily basis and give as needed Pt has a lot of co-morbidities and this acute pulmonary recurrent issues are not helping on top of her pancytopenia-i would consider palliative care-her primary [employer] clerk is covering on wednesday so will discuss further with him I discussed the case and my assessment with the hospitalist and he agrees with my plan 11/22/2023 Assessment plan as previously has been recommending IV diuretics as needed. Reportedly has received this admission though none document Despite declining renal function would consider additional dose Limited opportunities for improvement Continue to hold amiodarone 11/23/2023 Appreciate nephrology assistance. Agree with additional dose of IV furosemide at this time Consider transition from metoprolol to tartrate to metoprolol succinate 12.5 mg twice per day tomorrow No further amiodarone No arrhythmias on telemetry Admission and Anticipated Discharge Date Admission Date: November 19, 2023 Subjective Patient seen and examined. Care discussed with family Appreciate nephrology input Review of Systems Review of Systems: All systems reviewed & are unremarkable except as noted in Subjective Physical Exam Constitutional: + ill appearing and + cachectic Eyes: PERRL, conjunctivae normal, anicteric sclerae Respiratory: Auscultation: + diminished lung sounds and + crackles Cardiovascular: Rate/Rhythm: regular rate and regular rhythm Vessels: no JVD Extremities: no edema Results & Data Vital Signs (Past 12 Hours) Vital Signs Temp Pulse Resp BP Pulse Ox O2 Del Method O2 Flow Rate 11/23/23 14:30 65 22 95 Oxymask 12 11/23/23 11:39 36.5 C 67 20 141/54 H 92 Oxymask 15 11/23/23 11:07 70 22 94 Oxymask 12 11/23/23 08:11 64 20 86 L Nasal Cannula 14 11/23/23 07:47 36.5 C 62 20 138/68 94 Oxymask 14 Laboratory Results Laboratory Results - last 24 hr 11/22/23 11/22/23 11/23/23 16:27 20:11 07:40 WBC RBC Hgb Hct MCV MCH MCHC RDW Std Deviation RDW Coeff of Hope Plt Count MPV Immature Gran % (Auto) Neut % (Auto) Lymph % (Auto) Floyd % (Auto) Eos % (Auto) Baso % (Auto) Neut # (Auto) Lymph # (Auto) Floyd # (Auto) Eos # (Auto) Baso # (Auto) Immature Gran # (Auto) PT INR Sodium Potassium Chloride Carbon Dioxide Anion Gap BUN Creatinine Est Cr Clr Drug Dosing Est GFR ( Amer) Est GFR (Non-Af Amer) BUN/Creatinine Ratio Glucose POC Glucose 126 H 143 H 140 H Calcium Total Bilirubin AST ALT Alkaline Phosphatase Total Protein Albumin Globulin Albumin/Globulin Ratio Stool Occult Bld Scrn 11/23/23 11/23/23 11/23/23 10:07 11:24 Unknown WBC 7.62 RBC 3.44 L Hgb 8.9 L Hct 30.5 L MCV 88.7 MCH 25.9 MCHC 29.2 L RDW Std Deviation 55.5 H RDW Coeff of Hope 18.6 H Plt Count 127 L MPV 11.5 Immature Gran % (Auto) 0.5 Neut % (Auto) 80.0 Lymph % (Auto) 16.9 Floyd % (Auto) 2.5 Eos % (Auto) 0.0 Baso % (Auto) 0.1 Neut # (Auto) 6.09 Lymph # (Auto) 1.29 Floyd # (Auto) 0.19 Eos # (Auto) 0.00 Baso # (Auto) 0.01 Immature Gran # (Auto) 0.04 PT 23.5 H INR 2.3 H Sodium 143 Potassium 5.1 Chloride 109 H Carbon Dioxide 25 Anion Gap 9 BUN 80 H Creatinine 1.63 H Est Cr Clr Drug Dosing 20.2 Est GFR ( Amer) 32.0 Est GFR (Non-Af Amer) 27.6 BUN/Creatinine Ratio 49.1 H Glucose 271 H POC Glucose 267 H Calcium 7.8 L Total Bilirubin 0.8 AST 72 H ALT 45 Alkaline Phosphatase 91 Total Protein 5.1 L Albumin 2.8 L Globulin 2.3 L Albumin/Globulin Ratio 1.2 Stool Occult Bld Scrn Negative
[2023-11-24 06:46] LABS: Hematocrit (blood only) 29.4 % (37.0-47.0); Hemoglobin 8.9 g/dl (12.0-16.0); Mean Corpuscular Hemoglobin 26.2 pg (25.0-34.0); Mean Corpuscular Hgb Conc 30.3 g/dL (32.0-36.0); Mean Corpuscular Volume 86.5 fL (80.0-100.0); Platelet Count 105 K/uL (130-400); RDW Coefficient of Variation 18.6 % (11.5-14.5); RDW Standard Deviation 55.7 fL (36.4-46.3); White Blood Count 7.41 K/ul (4.8-10.8)
[2023-11-24 07:09] LABS: Basophils # (auto) 0.01 K/uL (0.00-0.20); Basophils % (auto) 0.1 %; Eosinophils # (auto) 0.01 K/uL (0.00-0.50); Eosinophils % (auto) 0.1 %; Immature Granulocytes # (auto) 0.05 K/uL (0.01-0.20); Immature Granulocytes % (auto) 0.7 %; Lymphocytes # (auto) 2.05 K/uL (1.20-3.40); Lymphocytes % (auto) 27.7 %; Monocytes # (auto) 0.29 K/uL (0.11-0.59); Monocytes % (auto) 3.9 %; Neutrophils % (auto) 67.5 %; Ovalocytes 1+; Polychromasia 1+; Tear Drop Cells 2+
[2023-11-24 07:12] LABS: BUN Creatinine Ratio 50.9 (10-20); Calcium 7.8 mg/dl (8.6-10.3); Creatinine Clr Calc Pharmacy 20.5 ml/min; Est GFR (African American) 32.5 ml/min; Est GFR (Non-African American) 28.1 ml/min; Potassium 4.9 mmol/L (3.5-5.1)
[2023-11-24] MEDS: INSULIN ASPART PER UNIT CHARGE SC SCH (08:28)
--- NOTE | 2023-11-24 14:18 | Pharmacy Report ---
Pharmacy Glycemic Short Note 2 - Date of Service November 24, 2023 - Glycemic Short BSG Results (Last 24 hours): 11/23/23 11/23/23 11/24/23 16:16 20:13 06:10 Glucose 91 POC Glucose 126 H 61 L* 11/24/23 11/24/23 07:37 10:54 Glucose POC Glucose 133 H 111 H OUTPATIENT ANTIDIABETIC REGIMEN: * glipizide 10mg QAM * HbA1c 6.1% (11/12/23) ASSESSMENT: 11/21 * Radha received 54 units of insulin yesterday (30 were basal) * Fastomg BSG within goal range, continue current basal regimen * She continues on cefepime and IV methylprednisolone 40mg BID * Lunchtime BSGs tend to be high and had hypoglycemia at bedtime yesterday evening, will tighten breakfast Novolog to prevent lunchtime highs and evening lows 11/21 * Radha received 72 units of insulin yesterday (30 were basal) * Fasting BSG acceptable this AM, will continue current basal regimen * BSGs trended down significantly yesterday, loosened Novolog parameters some * Lunchtime BSG elevated today likely due to late administration of morning insulin 11/20 * Patient received 52 nits of insulin yesterday, 20 basal, blood sugar still elevated d/t IV steroids. Remains on Solu-Medrol 40mg IV Q12H. * Tighten CF/CR and increase basal at this time. 11/19 * Radha is an 88 YOF admitted for hypoxia and has a history of T2DM. Pharmacy has been consulted to assist with glycemic management while inpatient. * She is receiving IV methylprednisolone 40mg BID for pneumonitis as well as cefepime and vancomycin to cover possible aspiration pneumonia. * She was started on loose NovoLog coverage and BSGs trended up with IV steroids, carbohydrate coverage tightened * Lantus 0.4units/kg given with dinner to cover steroids, will reassess basal in AM PLAN FOR INPATIENT GLYCEMIC CONTROL: * Hold outpatient oral diabetes medications * Basal insulin * Lantus 30 units SQ Daily * Bolus insulin- with breakfast * NovoLog per scale QDB * Goal Range: Low 110 mg/dL - High 140 mg/dL * Correction Factor: 12 mg/dL/unit * Nutritional / Prandial insulin per carb ratio of 1 unit per 4 grams CHO consumed * Bolus insulin- with lunch,dinner and bedtime * NovoLog per scale QDL, QDD, and HS * Goal Range: Low 110 mg/dL - High 140 mg/dL * Correction Factor: 20 mg/dL/unit * Nutritional / Prandial insulin per carb ratio of 1 unit per 6 grams CHO consumed
--- NOTE | 2023-11-24 17:09 | Hospitalist Progress Note ---
Date of Service November 24, 2023 Assessment & Plan (1) Acute respiratory failure with hypoxia and hypercapnia: (2) Atypical pneumonia: (3) Altered mental status: (4) HTN (hypertension): (5) HLD (hyperlipidemia): (6) (HFpEF) heart failure with preserved ejection fraction: (7) CKD (chronic kidney disease) stage 4, GFR 15-29 ml/min: (8) T2DM (type 2 diabetes mellitus): (9) Hypothyroidism: Plan: Patient is a 88-year-old female with PMHx of type 2 diabetes, hypothyroidism, hyperlipidemia, paroxysmal atrial fibrillation, hypertension, chronic kidney disease stage IV, anemia due to chronic kidney disease, history of MRSA infection, history of depression, history of traumatic subdural hematoma, history of COVID, history of ambulatory dysfunction from [facility] presents to the hospital with acute onset of shortness of breath. She was recently hospitalized from November 11 to November 17 and was treated for atypical pneumonia. Acute on Chronic Respiratory Failure Pneumonia Possible amiodarone toxicity Acute on chronic HFpEF -Patient presents with acute onset of shortness of breath. Recent hospitalization for similar complaints. -No leukocytosis -Chest x-ray on admission reviewed multifocal patchy bilateral opacities. Small bilateral pleural effusions Blood cultureno growth till date ABG reviewed; mild respiratory acidosis Patient is started on cefepime and vancomycin. Vancomycin discontinued as MRSA is negative. Plan to treat for 7 days of antibiotics IV methylprednisolone as per pulmonology; plan to treat for 5-day As needed Lasix Amiodarone is stopped as it was thought that it might have contributed to pulmonary toxicity. Palliative care consulted for goals of care discussion; patient had multiple hospitalization recently; her prognosis is poor due to her advanced age, multiple comorbidities and her respiratory status. Pulmonology and cardiology both recommend palliative care consultation. Plan is to continue medical intervention for the time being; if patient decompensatetransition to comfort care Atrial Fibrillation Supratherapeutic INR Demand ischemia Acute blood loss anemia status post 1 unit of transfusion in November 19 EKG on admission personally reviewed; sinus rhythm with PACs INR reviewed; supratherapeutic status post vitamin K 2.5 mg on November 19 Hemoglobin down trended to 6.5; improved with transfusion Hemoglobin has stabilized around 8.9. Continue Protonix twice daily; plan to treat for 12-week Monitor for any signs or symptoms of GI bleed. Hold Coumadin. Amiodarone on hold; discussed with cardiology. Continue on metoprolol 12.5 twice daily, statin Acute kidney injury on CKD Likely due to sepsis Creatinine continues to uptrend; stabilized around 1.6-1.8 Monitor urine output Avoid nephrotoxic agent Renal ultrasoundnegative for any acute finding Nephrology on board; Lasix as needed DM type II -Last A1c 6.6 on 09/06/2023 -ISS with Accu-Cheks ACHS -HH/DM diet allowed Glycemic pharmacy on consult. Hypothyroidism -Chronic, stable, cont levothyroxine DVT ppx: Coumadin on hold due to possible bleeding. Lines: 2 PIV CODE: DNR/DNI FEN/GI: HH/DM diet Per prior attending: Discussed with patient's daughter over the phone regarding patient's overall condition multiple times. Her prognosis is overall guarded due to multiple medical issues, [id number] hospitalization and advance age. Plan to continue medical intervention for the time being; CODE STATUS is DNR/DNI. If patient decompensates; plan to transition over to comfort care. Palliative care on board as well Please note the above document was generated using voice recognition software. It may contain grammatical, syntax or spelling errors. Any formal questions or concerns about the content, text or information contained within the body of this dictation should be directly addressed to the provider for clarification Admission and Anticipated Discharge Date Admission Date: November 19, 2023 Subjective Patient seen and examined at bedside. She was lying in bed; denies any pain or discomfort. Denies difficulty breathing. No significant events overnight. Physical Exam Physical Exam: Constitutional: Awake, oriented to self and person. Respiratory: Bilateral crackles present. Decreased breath sound entry bilaterally. Cardiovascular: RRR, no murmur, no edema Vessels: no JVD or carotid bruit Chest: normal inspection of chest Abdomen: Soft, nontender Musculoskeletal: no cyanosis or clubbing, extremities motor strength 5/5 Skin: no rashes, warm and dry normal turgor Neurologic: Grossly intact Results & Data Results & Data Vital Signs (Past 12 Hours) Vital Signs Temp Pulse Resp BP Pulse Ox O2 Del Method O2 Flow Rate 11/24/23 15:45 36.5 C 71 18 134/48 L 95 Nasal Cannula 5 11/24/23 15:12 76 18 97 Nasal Cannula 6 11/24/23 14:08 97 6 11/24/23 11:35 36.3 C L 78 18 118/50 L 93 Nasal Cannula 6 11/24/23 10:34 72 20 95 Nasal Cannula 6 11/24/23 07:32 36.3 C L 73 16 118/51 L 90 Nasal Cannula 10 11/24/23 07:11 77 19 93 Nasal Cannula 10 (3) Altered mental status Altered mental status type: unspecified Qualified Code(s): R41.82 - Altered mental status, unspecified (4) HTN (hypertension) Hypertension type: essential hypertension Qualified Code(s): I10 - Essential (primary) hypertension (5) HLD (hyperlipidemia) Hyperlipidemia type: unspecified Qualified Code(s): E78.5 - Hyperlipidemia, unspecified (8) T2DM (type 2 diabetes mellitus) Diabetes mellitus fdc insulin use: without fdc use Diabetes mellitus complication status: with kidney complications Diabetes mellitus complication detail: with chronic kidney disease Chronic kidney disease stage: stage 3 (moderate) Qualified Code(s): E11.22 - Type 2 diabetes mellitus with diabetic chronic kidney disease; N18.3 - Chronic kidney disease, stage 3 (moderate) (9) Hypothyroidism Hypothyroidism type: unspecified Qualified Code(s): E03.9 - Hypothyroidism, unspecified
[2023-11-24] MEDS: GLUCOSE 40% GEL 15 GM TUBE PO PRN (17:29)
[2023-11-25 06:43] LABS: Hematocrit (blood only) 32.6 % (37.0-47.0); Hemoglobin 9.8 g/dl (12.0-16.0); Mean Corpuscular Hgb Conc 30.1 g/dL (32.0-36.0); Mean Corpuscular Volume 86.5 fL (80.0-100.0); Mean Platelet Volume 10.8 fL (9.4-12.4); Platelet Count 122 K/uL (130-400); RDW Coefficient of Variation 18.7 % (11.5-14.5); Red Blood Count 3.77 M/uL (4.20-5.40); White Blood Count 10.38 K/ul (4.8-10.8)
[2023-11-25 07:17] LABS: BUN Creatinine Ratio 53.7 (10-20); Creatinine Clr Calc Pharmacy 24.2 ml/min; Est GFR (African American) 39.9 ml/min; Est GFR (Non-African American) 34.4 ml/min; Magnesium 2.4 mg/dl (1.7-2.4); Phosphorus 3.5 mg/dl (2.5-4.9); Potassium 5.1 mmol/L (3.5-5.1)
[2023-11-25] MEDS: DEXTROSE 50% 50 ML SYRINGE IV PRN (07:46)
[2023-11-25] MEDS: PANTOprazole 40 MG TAB PO SCH (11:29)
[2023-11-25] MEDS: INSULIN ASPART PER UNIT CHARGE SC SCH (11:59)
--- NOTE | 2023-11-25 15:09 | Hospitalist Progress Note ---
Date of Service November 25, 2023 Assessment & Plan (1) Acute respiratory failure with hypoxia and hypercapnia: (2) Atypical pneumonia: (3) Altered mental status: (4) HTN (hypertension): (5) HLD (hyperlipidemia): (6) (HFpEF) heart failure with preserved ejection fraction: (7) CKD (chronic kidney disease) stage 4, GFR 15-29 ml/min: (8) T2DM (type 2 diabetes mellitus): (9) Hypothyroidism: Plan: Patient is a 88-year-old female with PMHx of type 2 diabetes, hypothyroidism, hyperlipidemia, paroxysmal atrial fibrillation, hypertension, chronic kidney disease stage IV, anemia due to chronic kidney disease, history of MRSA infection, history of depression, history of traumatic subdural hematoma, history of COVID, history of ambulatory dysfunction from [facility] presents to the hospital with acute onset of shortness of breath. She was recently hospitalized from November 11 to November 17 and was treated for atypical pneumonia. Acute on Chronic Respiratory Failure Pneumonia Possible amiodarone toxicity Acute on chronic HFpEF -Patient presents with acute onset of shortness of breath. Recent hospitalization for similar complaints. -No leukocytosis -Chest x-ray on admission reviewed multifocal patchy bilateral opacities. Small bilateral pleural effusions Blood cultureno growth till date ABG reviewed; mild respiratory acidosis Patient was started on cefepime and vancomycin. Vancomycin discontinued as MRSA is negative. Plan to treat for 7 days of antibiotics IV methylprednisolone as per pulmonology; plan to treat for 5-day As needed Lasix, small dose iv lasix today due to O2 req going up. Amiodarone is stopped as it was thought that it might have contributed to pulmonary toxicity. Palliative care consulted for goals of care discussion; patient had multiple hospitalization recently; her prognosis is poor due to her advanced age, multiple comorbidities and her respiratory status. Pulmonology and cardiology both recommend palliative care consultation. Plan is to continue medical inter vention for the time being; if patient decompensatetransition to comfort care Atrial Fibrillation Supratherapeutic INR Demand ischemia Acute blood loss anemia status post 1 unit of transfusion in November 19 EKG on admission personally reviewed; sinus rhythm with PACs INR reviewed; supratherapeutic status post vitamin K 2.5 mg on November 19 Hemoglobin down trended to 6.5; improved with transfusion Hemoglobin has stabilized around 8.9. Continue Protonix twice daily; plan to treat for 12-week Monitor for any signs or symptoms of GI bleed. Hold Coumadin. Amiodarone on hold; Continue on metoprolol 12.5 twice daily, statin Acute kidney injury on CKD Likely due to sepsis Creatinine continues to uptrend; stabilized around 1.6-1.8 Monitor urine output Avoid nephrotoxic agent Renal ultrasoundnegative for any acute finding Nephrology on board; Lasix as needed Severe malnutrition: Patient with blood loss of 1% since admission. Patient appears cachectic with bitemporal wasting at the examination. Nutrition on board. Appreciate recs. Patient has various risk factor including advanced age, acute on chronic respiratory failure, pneumonia, acute on chronic heart failure with preserved ejection fraction, CRISPIN/CKD, diabetes mellitus. DM type II -Last A1c 6.6 on 09/06/2023 -ISS with Accu-Cheks ACHS -HH/DM diet allowed Glycemic pharmacy on consult. - consider decreasing dose of diabetic meds on dc [adv age, tighter glucose control overall] Hypothyroidism -Chronic, stable, cont levothyroxine DVT ppx: Coumadin on hold due to possible bleeding. Lines: 2 PIV CODE: DNR/DNI FEN/GI: HH/DM diet Per prior attending: Discussed with patient's daughter over the phone regarding patient's overall condition multiple times. Her prognosis is overall guarded due to multiple medical issues, [id number] hospitalization and advance age. Plan to continue medical intervention for the time being; CODE STATUS is DNR/DNI. If patient decompensates; plan to transition over to comfort care. Palliative care on board as well Please note the above document was generated using voice recognition software. It may contain grammatical, syntax or spelling errors. Any formal questions or concerns about the content, text or information contained within the body of this dictation should be directly addressed to the provider for clarification Admission and Anticipated Discharge Date Admission Date: November 19, 2023 Subjective Patient seen and examined at bedside. She was lying in bed; denies any pain or discomfort. Denies difficulty breathing. Was hypoglycemic, glycemic pharmacy managing SSI. Per RN, pt ate her breakfast well. Per RN, moving bowels, no blood /black visualized. Physical Exam Physical Exam: Constitutional: Awake, oriented to self and person. Respiratory: Bilateral crackles present. Decreased breath sound entry bilaterally. Cardiovascular: RRR, no murmur, no edema Vessels: no JVD or carotid bruit Chest: normal inspection of chest Abdomen: Soft, nontender Musculoskeletal: no cyanosis or clubbing, extremities motor strength 5/5 Skin: no rashes, warm and dry normal turgor Neurologic: Grossly intact Results & Data Results & Data Vital Signs (Past 12 Hours) Vital Signs Temp Pulse Resp BP Pulse Ox O2 Del Method O2 Flow Rate 11/25/23 11:17 67 24 91 Oxymask 10 11/25/23 11:12 36.4 C L 81 16 110/68 11/25/23 07:42 36.6 C 77 18 123/55 L 91 High Flow Nasal Cannula 5 11/25/23 07:00 Room Air, Nasal Cannula 6 11/25/23 06:52 66 18 91 Nasal Cannula 5 11/25/23 03:22 36.4 C L 93 H 16 139/63 93 High Flow Nasal Cannula 5 11/25/23 03:17 68 18 95 Nasal Cannula 5 (3) Altered mental status Altered mental status type: unspecified Qualified Code(s): R41.82 - Altered mental status, unspecified (4) HTN (hypertension) Hypertension type: essential hypertension Qualified Code(s): I10 - Essential (primary) hypertension (5) HLD (hyperlipidemia) Hyperlipidemia type: unspecified Qualified Code(s): E78.5 - Hyperlipidemia, unspecified (8) T2DM (type 2 diabetes mellitus) Diabetes mellitus medical terminologist insulin use: without medical terminologist use Diabetes mellitus complication status: with kidney complications Diabetes mellitus complication detail: with chronic kidney disease Chronic kidney disease stage: stage 3 (moderate) Qualified Code(s): E11.22 - Type 2 diabetes mellitus with diabetic chronic kidney disease; N18.3 - Chronic kidney disease, stage 3 (moderate) (9) Hypothyroidism Hypothyroidism type: unspecified Qualified Code(s): E03.9 - Hypothyroidism, unspecified
[2023-11-25] MEDS: FUROSEMIDE INJ 20 MG/2 ML VIAL IV ONE (15:57)
[2023-11-25] MEDS: ALBUT/IPRATROP 3MG/0.5MG NEB 3 ML VIAL NEB SCH (18:06)
[2023-11-25] MEDS: LANTUS PER UNIT CHARGE SC SCH (21:33)
[2023-11-26 06:40] LABS: Hematocrit (blood only) 30.5 % (37.0-47.0); Hemoglobin 9.2 g/dl (12.0-16.0); Mean Corpuscular Hemoglobin 26.1 pg (25.0-34.0); Mean Corpuscular Hgb Conc 30.2 g/dL (32.0-36.0); Mean Corpuscular Volume 86.6 fL (80.0-100.0); Mean Platelet Volume 11.7 fL (9.4-12.4); Platelet Count 106 K/uL (130-400); RDW Coefficient of Variation 18.6 % (11.5-14.5); RDW Standard Deviation 57.6 fL (36.4-46.3); Red Blood Count 3.52 M/uL (4.20-5.40); White Blood Count 9.78 K/ul (4.8-10.8)
[2023-11-26 06:54] LABS: BUN Creatinine Ratio 51.8 (10-20); Creatinine Clr Calc Pharmacy 23.7 ml/min; Est GFR (African American) 38.8 ml/min; Est GFR (Non-African American) 33.5 ml/min
--- NOTE | 2023-11-26 10:07 | XRay Report ---
XR chest 1V portable HISTORY: 88 years-old Female f/u opacities/pl eff/congestion acute shortness of breath COMPARISON: 11/19/2023 TECHNIQUE: AP view of the chest FINDINGS: Cardiac silhouette is enlarged. Atherosclerosis of the aorta. Diffuse mixed interstitial and alveolar opacities have mildly improved. Small pleural effusions again noted. No pneumothorax. Degenerative c hanges of the shoulders and spine with sigmoidal thoracolumbar scoliosis. IMPRESSION: 1. Cardiomegaly with extensive mixed interstitial and alveolar opacities redemonstrated, mildly impro angelo from 11/19/2023. 2. Small pleural effusions. ACT 112: Negative or not required by law. The above report was generated using voice recognition software. It may contain grammatical, syntax o r spelling errors. Electronically signed by: Tod Hou M.D. 11/26/2023 10:06 AM
--- NOTE | 2023-11-26 14:24 | Pharmacy Report ---
Pharmacy Glycemic Short Note 2 - Date of Service November 26, 2023 - Glycemic Short BSG Results (Last 24 hours): 11/25/23 11/25/23 11/25/23 16:15 21:00 21:01 Glucose POC Glucose 176 H 315 H* 348 H* 11/26/23 11/26/23 11/26/23 05:54 06:46 07:25 Glucose 86 POC Glucose 121 H 105 H 11/26/23 11:14 Glucose POC Glucose 234 H OUTPATIENT ANTIDIABETIC REGIMEN: * glipizide 10mg QAM * HbA1c 6.1% (11/12/23) ASSESSMENT: 11/25 * Radha received 24 units of insulin yesterday (10 were basal) * Fasting BSG this AM within goal range, basal insulin decreased significantly yesterday to due AM hypoglycemia potentially due to decreased PO intake per nursing documentation. Goal range increased to prevent hypoglycemia. * Day 5 of IV methylprednisolone completed yesterday, basal dosed decreased further and only if BSGs are elevated * Novolog parameters loosened due to discontinuation of steroids. 11/23 * Radha received 54 units of insulin yesterday (30 were basal) * Fastomg BSG within goal range, continue current basal regimen * She continues on cefepime and IV methylprednisolone 40mg BID * Lunchtime BSGs tend to be high and had hypoglycemia at bedtime yesterday evening, will tighten breakfast Novolog to prevent lunchtime highs and evening lows 11/21 * Radha received 72 units of insulin yesterday (30 were basal) * Fasting BSG acceptable this AM, will continue current basal regimen * BSGs trended down significantly yesterday, loosened Novolog parameters some * Lunchtime BSG elevated today likely due to late administration of morning insulin 11/20 * Patient received 52 nits of insulin yesterday, 20 basal, blood sugar still elevated d/t IV steroids. Remains on Solu-Medrol 40mg IV Q12H. * Tighten CF/CR and increase basal at this time. 11/19 * Radha is an 88 YOF admitted for hypoxia and has a history of T2DM. Pharmacy has been consulted to assist with glycemic management while inpatient. * She is receiving IV methylprednisolone 40mg BID for pneumonitis as well as cefepime and vancomycin to cover possible aspiration pneumonia. * She was started on loose NovoLog coverage and BSGs trended up with IV steroids, carbohydrate coverage tightened * Lantus 0.4units/kg given with dinner to cover steroids, will reassess basal in AM PLAN FOR INPATIENT GLYCEMIC CONTROL: * Hold outpatient oral diabetes medications * Basal insulin * Lantus 0-5 units SQ Daily * Bolus insulin * NovoLog per scale ACHS or Q6 when NPO * Goal Range: Low 120 mg/dL - High 150 mg/dL * Correction Factor: 30 mg/dL/unit * Nutritional / Prandial insulin per carb ratio of 1 unit per 9 grams CHO consumed
--- NOTE | 2023-11-26 16:25 | Hospitalist Progress Note ---
Date of Service November 26, 2023 Assessment & Plan (1) Acute respiratory failure with hypoxia and hypercapnia: (2) Atypical pneumonia: (3) Altered mental status: (4) HTN (hypertension): (5) HLD (hyperlipidemia): (6) (HFpEF) heart failure with preserved ejection fraction: (7) CKD (chronic kidney disease) stage 4, GFR 15-29 ml/min: (8) T2DM (type 2 diabetes mellitus): (9) Hypothyroidism: Plan: Patient is a 88-year-old female with PMHx of type 2 diabetes, hypothyroidism, hyperlipidemia, paroxysmal atrial fibrillation, hypertension, chronic kidney disease stage IV, anemia due to chronic kidney disease, history of MRSA infection, history of depression, history of traumatic subdural hematoma, history of COVID, history of ambulatory dysfunction from [facility] presents to the hospital with acute onset of shortness of breath. She was recently hospitalized from November 11 to November 17 and was treated for atypical pneumonia. Acute on Chronic Respiratory Failure Pneumonia Possible amiodarone toxicity Acute on chronic HFpEF -Patient presents with acute onset of shortness of breath. Recent hospitalization for similar complaints. -No leukocytosis -Chest x-ray on admission reviewed multifocal patchy bilateral opacities. Small bilateral pleural effusions Blood cultureno growth till date ABG reviewed; mild respiratory acidosis Patient was started on cefepime and vancomycin. Vancomycin discontinued as MRSA is negative. Plan to treat for 7 days of antibiotics IV methylprednisolone as per pulmonology; s/p 5 day course. As needed Lasix. Amiodarone is stopped as it was thought that it might have contributed to pulmonary toxicity. Palliative care consulted for goals of care discussion; patient had multiple hospitalization recently; her prognosis is poor due to her advanced age, multiple comorbidities and her respiratory status. Pulmonology and cardiology both recommend palliative care consultation. Plan is to continue medical intervention for the time being; if patient decompensatetransition to comfort care. Repeat CXR w/ minimal improvement, pt easily drops on sats with movement, needing 5L at rest. Atrial Fibrillation Supratherapeutic INR Demand ischemia Acute blood loss anemia status post 1 unit of transfusion in November 19 EKG on admission personally reviewed; sinus rhythm with PACs INR reviewed; supratherapeutic status post vitamin K 2.5 mg on November 19 Hemoglobin down trended to 6.5; improved with transfusion Hemoglobin has stabilized around 8.9. Continue Protonix twice daily; plan to treat for 12-week Monitor for any signs or symptoms of GI bleed. Hold Coumadin. Amiodarone on hold; Continue on metoprolol 12.5 twice daily, statin Acute kidney injury on CKD Likely due to sepsis Creatinine continues to uptrend; stabilized around 1.6-1.8 Monitor urine output Avoid nephrotoxic agent Renal ultrasoundnegative for any acute finding Nephrology on board; Lasix as needed Severe malnutrition: Patient with blood loss of 1% since admission. Patient appears cachectic with bitemporal wasting at the examination. Nutrition on board. Appreciate recs. Patient has various risk factor including advanced age, acute on chronic respiratory failure, pneumonia, acute on chronic heart failure with preserved ejection fraction, CRISPIN/CKD, diabetes mellitus. DM type II -Last A1c 6.6 on 09/06/2023 -ISS with Accu-Cheks ACHS -HH/DM diet allowed Glycemic pharmacy on consult. - consider decreasing dose of diabetic meds on dc [adv age, tighter glucose control overall] Hypothyroidism -Chronic, stable, cont levothyroxine DVT ppx: Coumadin on hold due to possible bleeding. Lines: 2 PIV CODE: DNR/DNI FEN/GI: HH/DM diet Per prior attending: Discussed with patient's daughter over the phone regarding patient's overall condition multiple times. Her prognosis is overall guarded due to multiple medical issues, [id number] hospitalization and advance age. Plan to continue medical intervention for the time being; CODE STATUS is DNR/DNI. If patient decompensates; plan to transition over to comfort care. Palliative care on board as well Please note the above document was generated using voice recognition software. It may contain grammatical, syntax or spelling errors. Any formal questions or concerns about the content, text or information contained within the body of this dictation should be directly addressed to the provider for clarification Admission and Anticipated Discharge Date Admission Date: November 19, 2023 Subjective Patient seen and examined at bedside. She was lying in bed; denies any pain or discomfort. Denies difficulty breathing. Per RN, pt ate her breakfast well. Physical Exam Physical Exam: Constitutional: Awake, oriented to self and person. Respiratory: Bilateral crackles present. Decreased breath sound entry bilaterally. Cardiovascular: RRR, no murmur, no edema Vessels: no JVD or carotid bruit Chest: normal inspection of chest Abdomen: Soft, nontender Musculoskeletal: no cyanosis or clubbing, extremities motor strength 5/5 Skin: no rashes, warm and dry normal turgor Neurologic: Grossly intact Results & Data Results & Data Vital Signs (Past 12 Hours) Vital Signs Temp Pulse Resp BP Pulse Ox O2 Del Method O2 Flow Rate 11/26/23 14:36 Nasal Cannula 5 11/26/23 11:15 36.5 C 76 19 98/44 L 91 High Flow Nasal Cannula 5 11/26/23 07:27 36.6 C 83 19 112/54 L 91 High Flow Nasal Cannula 5 11/26/23 07:18 Nasal Cannula 5 11/26/23 06:59 69 20 96 Nasal Cannula 4 11/26/23 06:47 94 Nasal Cannula 4 (3) Altered mental status Altered mental status type: unspecified Qualified Code(s): R41.82 - Altered mental status, unspecified (4) HTN (hypertension) Hypertension type: essential hypertension Qualified Code(s): I10 - Essential (primary) hypertension (5) HLD (hyperlipidemia) Hyperlipidemia type: unspecified Qualified Code(s): E78.5 - Hyperlipidemia, unspecified (8) T2DM (type 2 diabetes mellitus) Diabetes mellitus intermediate insulin use: without technician terminal and repeater use Diabetes mellitus complication status: with kidney complications Diabetes mellitus com plication detail: with chronic kidney disease Chronic kidney disease stage: stage 3 (moderate) Qualified Code(s): E11.22 - Type 2 diabetes mellitus with diabetic chronic kidney disease; N18.3 - Chronic kidney disease, stage 3 (moderate) (9) Hypothyroidism Hypothyroidism type: unspecified Qualified Code(s): E03.9 - Hypothyroidism, unspecified
[2023-11-27 06:36] LABS: Hematocrit (blood only) 30.4 % (37.0-47.0); Mean Corpuscular Hemoglobin 26.1 pg (25.0-34.0); Mean Corpuscular Hgb Conc 29.6 g/dL (32.0-36.0); Mean Corpuscular Volume 88.1 fL (80.0-100.0); Mean Platelet Volume 11.6 fL (9.4-12.4); Platelet Count 95 K/uL (130-400); RDW Coefficient of Variation 18.7 % (11.5-14.5); RDW Standard Deviation 57.7 fL (36.4-46.3); Red Blood Count 3.45 M/uL (4.20-5.40); White Blood Count 8.15 K/ul (4.8-10.8)
[2023-11-27 06:47] LABS: BUN Creatinine Ratio 49.3 (10-20); Calcium 8.1 mg/dl (8.6-10.3); Creatinine Clr Calc Pharmacy 23.9 ml/min; Est GFR (African American) 39.2 ml/min; Est GFR (Non-African American) 33.8 ml/min; Magnesium 2.1 mg/dl (1.7-2.4); Phosphorus 3.3 mg/dl (2.5-4.9); Potassium 4.8 mmol/L (3.5-5.1)
--- NOTE | 2023-11-27 13:25 | Pharmacy Report ---
Pharmacy Glycemic Short Note 2 - Date of Service November 27, 2023 - Glycemic Short BSG Results (Last 24 hours): 11/26/23 11/26/23 11/27/23 16:07 20:24 05:57 Glucose 133 H POC Glucose 110 H 204 H 11/27/23 11/27/23 11/27/23 06:04 07:29 11:14 Glucose POC Glucose 150 H 155 H 215 H OUTPATIENT ANTIDIABETIC REGIMEN: * Glipizide 10mg QAM * HbA1c 6.1% (11/12/23) ASSESSMENT: 11/26: * Despite reducing Lantus scale last evening, RN still administered old dose of 10 units basal by mistake. However, fasting BSG actually trended up this AM, 155 mg/dL. Will continue with basal scale at bedtime to give 0-10 units depending on BSG. * Trend of postprandial hyperglycemia at lunchtime. Will tighten bolus regimen at breakfast only tomorrow. 11/25: * Radha received 24 units of insulin yesterday (10 were basal) * Fasting BSG this AM within goal range, basal insulin decreased significantly yesterday to due AM hypoglycemia potentially due to decreased PO intake per nursing documentation. Goal range increased to prevent hypoglycemia. * Day 5 of IV methylprednisolone completed yesterday, basal dosed decreased further and only if BSGs are elevated * Novolog parameters loosened due to discontinuation of steroids. 11/23: * Radha received 54 units of insulin yesterday (30 were basal) * Fastomg BSG within goal range, continue current basal regimen * She continues on cefepime and IV methylprednisolone 40mg BID * Lunchtime BSGs tend to be high and had hypoglycemia at bedtime yesterday evening, will tighten breakfast Novolog to prevent lunchtime highs and evening lows 11/21: * Radha received 72 units of insulin yesterday (30 were basal) * Fasting BSG acceptable this AM, will continue current basal regimen * BSGs trended down significantly yesterday, loosened Novolog parameters some * Lunchtime BSG elevated today likely due to late administration of morning insulin 11/20: * Patient received 52 nits of insulin yesterday, 20 basal, blood sugar still elevated d/t IV steroids. Remains on Solu-Medrol 40mg IV Q12H. * Tighten CF/CR and increase basal at this time. 11/19: * Radha is an 88 YOF admitted for hypoxia and has a history of T2DM. Pharmacy has been consulted to assist with glycemic management while inpatient. * She is receiving IV methylprednisolone 40mg BID for pneumonitis as well as cefepime and vancomycin to cover possible aspiration pneumonia. * She was started on loose NovoLog coverage and BSGs trended up with IV steroids, carbohydrate coverage tightened * Lantus 0.4units/kg given with dinner to cover steroids, will reassess basal in AM PLAN FOR INPATIENT GLYCEMIC CONTROL: * Hold outpatient oral diabetes medications * Basal insulin * Lantus 0-10 units SC HS (see eMAR for more details) * Bolus insulin * NovoLog per scale ACHS or Q6 when NPO * Goal Range: Low 120 mg/dL - High 150 mg/dL * Breakfast: Correction Factor of 20 mg/dL/unit; Carb ratio of 1 unit per 7 grams CHO consumed * Lunch, Dinner, HS: Correction Factor of 30 mg/dL/unit; Carb ratio of 1 unit per 9 grams CHO consumed
--- NOTE | 2023-11-27 16:19 | Hospitalist Progress Note ---
Date of Service November 27, 2023 Assessment & Plan (1) Acute respiratory failure with hypoxia and hypercapnia: (2) Atypical pneumonia: (3) Altered mental status: (4) HTN (hypertension): (5) HLD (hyperlipidemia): (6) (HFpEF) heart failure with preserved ejection fraction: (7) CKD (chronic kidney disease) stage 4, GFR 15-29 ml/min: (8) T2DM (type 2 diabetes mellitus): (9) Hypothyroidism: Plan: Patient is a 88-year-old female with PMHx of type 2 diabetes, hypothyroidism, hyperlipidemia, paroxysmal atrial fibrillation, hypertension, chronic kidney disease stage IV, anemia due to chronic kidney disease, history of MRSA infection, history of depression, history of traumatic subdural hematoma, history of COVID, history of ambulatory dysfunction from [facility] presents to the hospital with acute onset of shortness of breath. She was recently hospitalized from November 11 to November 17 and was treated for atypical pneumonia. Acute on Chronic Respiratory Failure Pneumonia Possible amiodarone toxicity Acute on chronic HFpEF -Patient presents with acute onset of shortness of breath. Recent hospitalization for similar complaints. -No leukocytosis -Chest x-ray on admission reviewed multifocal patchy bilateral opacities. Small bilateral pleural effusions Blood cultureno growth till date ABG reviewed; mild respiratory acidosis Patient was started on cefepime and vancomycin. Vancomycin discontinued as MRSA is negative. Status post 7-day course with cefepime. IV methylprednisolone as per pulmonology; s/p 5 day course. As needed Lasix. Amiodarone is stopped as it was thought that it might have contributed to pulmonary toxicity. Palliative care consulted for goals of care discussion; patient had multiple hospitalization recently; her prognosis is poor due to her advanced age, multiple comorbidities and her respiratory status. Pulmonology and cardiology both recommend palliative care consultation. Plan is to continue medical intervention for the time being; if patient decompensatetransition to comfort care. Repeat CXR w/ minimal improvement, pt easily drops on sats with movement, needing 5L at rest. Discussed with patient's family at bedside [daughter Janeth, granddaughter Chelle , MIKE Salmeron] 11/26. Updated about pt's current status. We reviewed chest imaging and compared it against admitting imaging, discussed about minimal improvement in the imaging. Oxygen need has been relatively high and has not improved as expected. Patient's daughter Janeth expressed that she would like to speak to palliative, assured her that I will relay the message to palliative care. She understands the fact patient has poor prognosis, wants to continue current level of care, will decide further after discussion with palliative on Wednesday. Atrial Fibrillation Supratherapeutic INR Demand ischemia Acute blood loss anemia status post 1 unit of transfusion in November 19 EKG on admission personally reviewed; sinus rhythm with PACs INR reviewed; supratherapeutic status post vitamin K 2.5 mg on November 19 Hemoglobin down trended to 6.5; improved with transfusion Hemoglobin has stabilized around 8.9. Continue Protonix twice daily; plan to treat for 12-week Monitor for any signs or symptoms of GI bleed. Hold Coumadin. Amiodarone on hold; Continue on metoprolol 12.5 twice daily, statin Acute kidney injury on CKD Likely due to sepsis Creatinine continues to uptrend; stabilized around 1.6-1.8 Monitor urine output Avoid nephrotoxic agent Renal ultrasoundnegative for any acute finding Nephrology on board; Lasix as needed Severe malnutrition: Patient with blood loss of 1% since admission. Patient appears cachectic with bitemporal wasting at the examination. Nutrition on board. Appreciate recs. Patient has various risk factor including advanced age, acute on chronic respiratory failure, pneumonia, acute on chronic heart failure with preserved ejection fraction, CRISPIN/CKD, diabetes mellitus. DM type II -Last A1c 6.6 on 09/06/2023 -ISS with Accu-Cheks ACHS -HH/DM diet allowed Glycemic pharmacy on consult. - consider decreasing dose of diabetic meds on dc [adv age, tighter glucose control overall as evident by A1c] Hypothyroidism -Chronic, stable, cont levothyroxine DVT ppx: Coumadin on hold due to possible bleeding. Lines: 2 PIV CODE: DNR/DNI FEN/GI: HH/DM diet Per prior attending: Discussed with patient's daughter over the phone regarding patient's overall condition multiple times. Her prognosis is overall guarded due to multiple medical issues, [id number] hospitalization and advance age. Plan to continue medical intervention for the time being; CODE STATUS is DNR/DNI. If patient decompensates; plan to transition over to comfort care. Palliative care on board as well Time spent evaluating patient, direct bedside care, chart review, placing orders, interpretation of diagnostic studies, discussion with consultants, patient, and family members, as well as other required patient management ac tivities is __55__ minutes. Please note the above document was generated using voice recognition software. It may contain grammatical, syntax or spelling errors. Any formal questions or concerns about the content, text or information contained within the body of this dictation should be directly addressed to the undersigned for clarification. Admission and Anticipated Discharge Date Admission Date: November 19, 2023 Subjective Patient seen and examined at bedside. She was lying in bed; denies any pain or discomfort. Denies difficulty breathing. Per RN, pt eating ok. Pt desaturating with activity. Physical Exam Physical Exam: Constitutional: Awake, oriented to self and person. Lean/cachectic/frail/weak appearing. Respiratory: Bilateral crackles present. Decreased breath sound entry bilaterally. Cardiovascular: RRR, no murmur, no edema Vessels: no JVD or carotid bruit Chest: normal inspection of chest Abdomen: Soft, nontender Musculoskeletal: no cyanosis or clubbing, extremities motor strength 5/5 Skin: no rashes, warm and dry normal turgor Neurologic: Grossly intact Results & Data Results & Data Vital Signs (Past 12 Hours) Vital Signs Temp Pulse Pulse Resp BP Pulse Ox O2 Del Method 11/27/23 15:58 36.4 C L 68 24 128/63 90 High Flow Nasal Cannula 11/27/23 11:30 36.6 C 71 23 113/58 L 99 High Flow Nasal Cannula 11/27/23 09:00 68 11/27/23 09:00 High Flow Nasal Cannula 11/27/23 07:30 36.5 C 74 24 118/54 L 92 High Flow Nasal Cannula 11/27/23 06:52 72 18 94 Nasal Cannula O2 Flow Rate 11/27/23 15:58 5 11/27/23 11:30 5 11/27/23 09:00 11/27/23 09:00 5 11/27/23 07:30 5 11/27/23 06:52 5 (3) Altered mental status Altered mental status type: unspecified Qualified Code(s): R41.82 - Altered mental status, unspecified (4) HTN (hypertension) Hypertension type: essential hypertension Qualified Code(s): I10 - Essential (primary) hypertension (5) HLD (hyperlipidemia) Hyperlipidemia type: unspecified Qualified Code(s): E78.5 - Hyperlipidemia, unspecified (8) T2DM (type 2 diabetes mellitus) Diabetes mellitus director nicu insulin use: without director nicu use Diabetes mellitus complication status: with kidney complications Diabetes mellitus complication detail: with chronic kidney disease Chronic kidney disease stage: stage 3 (moderate) Qualified Code(s): E11.22 - Type 2 diabetes mellitus with diabetic chronic kidney disease; N18.3 - Chronic kidney disease, stage 3 (moderate) (9) Hypothyroidism Hypothyroidism type: unspecified Qualified Code(s): E03.9 - Hypothyroidism, unspecified
[2023-11-27] MEDS: INSULIN ASPART PER UNIT CHARGE SC SCH (17:27)
[2023-11-28 06:55] LABS: Hematocrit (blood only) 29.2 % (37.0-47.0); Hemoglobin 8.5 g/dl (12.0-16.0); Mean Corpuscular Hgb Conc 29.1 g/dL (32.0-36.0); Mean Corpuscular Volume 89.3 fL (80.0-100.0); Mean Platelet Volume 11.8 fL (9.4-12.4); Platelet Count 92 K/uL (130-400); RDW Coefficient of Variation 18.4 % (11.5-14.5); RDW Standard Deviation 58.3 fL (36.4-46.3); Red Blood Count 3.27 M/uL (4.20-5.40); White Blood Count 7.72 K/ul (4.8-10.8)
[2023-11-28 07:06] LABS: BUN Creatinine Ratio 53.8 (10-20); Calcium 7.9 mg/dl (8.6-10.3); Creatinine Clr Calc Pharmacy 27.6 ml/min; Est GFR (African American) 46.9 ml/min; Est GFR (Non-African American) 40.4 ml/min; Potassium 4.6 mmol/L (3.5-5.1)
[2023-11-28] MEDS: INSULIN ASPART PER UNIT CHARGE SC SCH (09:04)
--- NOTE | 2023-11-28 11:23 | CT Scan Report ---
CT abd pelvis wo con CLINICAL HISTORY: r/o retro bleed TECHNIQUE: Helical axial images of the abdomen and pelvis were obtained. Automated dose lowering tech niques and/or adjustment according to patient size were utilized for this exam. This exam was perfor med without intravenous contrast. CT DOSE: 643.55 mGy.cm COMPARISON: Comparison is made to CT abdomen pelvis 08/08/2023 FINDINGS: Lower chest: Small bilateral pleural effusions. Interstitial thickening is seen. Liver: Unremarkable. No focal lesions are seen. Gallbladder and biliary tree: Patient is status post cholecystectomy. Pancreas: Unremarkable, no focal lesions. Spleen: Splenomegaly is noted, the spleen measures 15.7 cm. Adrenals: Unremarkable. Kidneys and ureters: Exophytic renal cysts are seen bilaterally. Nonobstructive stones are seen. Bladder: Velásquez catheter is seen. Reproductive organs: Patient is status post hysterectomy. Bowel: Diverticulosis is seen without diverticulitis. The appendix is normal. Lymph nodes Retroperitoneal: Unremarkable. Pelvic: Unremarkable. Mesenteric: Unremarkable. Peritoneum: Moderate ascites is seen. Vessels: Atherosclerotic calcifications are seen. Abdominal wall: Unremarkable. Bones: Degenerative changes in the visualized spine. Left medullary nail is seen. IMPRESSION: 1. Splenomegaly and ascites is seen compatible with portal hypertension. Otherwise no acute abnormal ities. In particular, no evidence of retroperitoneal hemorrhage. 2. Diverticulosis without diverticulitis. 3. Nonobstructive nephrolithiasis. ACT 112: Negative or not required by law. Electronically signed by: Obinna Cowan M.D. 11/28/2023 11:21 AM
--- NOTE | 2023-11-28 15:19 | Hospitalist Progress Note ---
Date of Service November 28, 2023 Assessment & Plan (1) Acute respiratory failure with hypoxia and hypercapnia: (2) Atypical pneumonia: (3) Altered mental status: (4) HTN (hypertension): (5) HLD (hyperlipidemia): (6) (HFpEF) heart failure with preserved ejection fraction: (7) CKD (chronic kidney disease) stage 4, GFR 15-29 ml/min: (8) T2DM (type 2 diabetes mellitus): (9) Hypothyroidism: Plan: Patient is a 88-year-old female with PMHx of type 2 diabetes, hypothyroidism, hyperlipidemia, paroxysmal atrial fibrillation, hypertension, chronic kidney disease stage IV, anemia due to chronic kidney disease, history of MRSA infection, history of depression, history of traumatic subdural hematoma, history of COVID, history of ambulatory dysfunction from [facility] presents to the hospital with acute onset of shortness of breath. She was recently hospitalized from November 11 to November 17 and was treated for atypical pneumonia. Acute on Chronic Respiratory Failure Pneumonia Possible amiodarone toxicity Acute on chronic HFpEF -Patient presents with acute onset of shortness of breath. Recent hospitalization for similar complaints. -No leukocytosis -Chest x-ray on admission reviewed multifocal patchy bilateral opacities. Small bilateral pleural effusions Blood cultureno growth till date ABG reviewed; mild respiratory acidosis Patient was started on cefepime and vancomycin. Vancomycin discontinued as MRSA is negative. Status post 7-day course with cefepime. IV methylprednisolone as per pulmonology; s/p 5 day course. As needed Lasix. Amiodarone is stopped as it was thought that it might have contributed to pulmonary toxicity. Palliative care consulted for goals of care discussion; patient had multiple hospitalization recently; her prognosis is poor due to her advanced age, multiple comorbidities and her respiratory status. Pulmonology and cardiology both recommend palliative care consultation. Plan is to continue medical intervention for the time being; if patient decompensatetransition to comfort care. Repeat CXR 11/25 w/ minimal improvement, pt easily drops on sats with movement, needing 4L at rest. Discussed with patient's family at bedside [daughter Janeth, granddaughter Chelle, MIKE Jaron] 11/26. Updated about pt's current status. We reviewed chest imaging and compared it against admitting imaging, discussed about minimal improvement in the imaging. Oxygen need has been relatively high and has not improved as expected. Patient's daughter Janeth expressed that she would like to speak to palliative, assured her that I will relay the message to palliative care. She understands the fact patient has poor prognosis, wants to continue current level of care, will decide further after discussion with palliative on Wednesday. Atrial Fibrillation Supratherapeutic INR Demand ischemia Acute blood loss anemia status post 1 unit of transfusion in November 19 EKG on admission personally reviewed; sinus rhythm with PACs INR reviewed; supratherapeutic status post vitamin K 2.5 mg on November 19 Hemoglobin down trended to 6.5; improved with transfusion Hemoglobin has stabilized around 8.5. Continue Protonix twice daily; plan to treat for 12-week Monitor for any signs or symptoms of GI bleed. 11/22 fobt neg. 11/27 CTAP w/ no retroperitoneal bleed. d/w Janeth regarding pros and cons of initiating anticoagulation, started pt on low dose hep drip Monitor HnH --- if not drop in 1-2 days, transition to warfarin w/ hep bridge. Amiodarone on hold; Continue on metoprolol 12.5 twice daily, statin Acute kidney injury on CKD Likely due to sepsis Creatinine continues to uptrend; stabilized around 1.6-1.8 Monitor urine output Avoid nephrotoxic agent Renal ultrasoundnegative for any acute finding Nephrology on board; Lasix as needed Severe malnutrition: Patient with blood loss of 1% since admission. Patient appears cachectic with bitemporal wasting at the examination. Nutrition on board. Appreciate recs. Patient has various risk factor including advanced age, acute on chronic respiratory failure, pneumonia, acute on chronic heart failure with preserved ejection fraction, CRISPIN/CKD, diabetes mellitus. DM type II -Last A1c 6.6 on 09/06/2023 -ISS with Accu-Cheks ACHS -HH/DM diet allowed Glycemic pharmacy on consult. - consider decreasing dose of diabetic meds on dc [adv age, tighter glucose control overall as evident by A1c] Hypothyroidism -Chronic, stable, cont levothyroxine DVT ppx: Coumadin on hold due to possible bleeding. Lines: 2 PIV CODE: DNR/DNI FEN/GI: HH/DM diet Per prior attending: Discussed with patient's daughter over the phone regarding patient's overall condition multiple times. Her prognosis is overall guarded due to multiple medical issues, [id number] hospitalization and advance age. Plan to continue medical intervention for the time being; CODE STATUS is DNR/DNI. If patient decompensates; plan to transition over to comfort care. Palliative care on board as well Time spent evaluating patient, direct bedside care, chart review, placing orders, interpretation of diagnostic studies, discussion with consultants, patient, and family members, as well as other required patient management activities is __52__ minutes. Please note the above document was generated using voice recognition software. It may contain grammatical, syntax or spelling errors. Any formal questions or concerns about the content, text or information contained within the body of this dictation should be directly addressed to the undersigned for clarification. Admission and Anticipated Discharge Date Admission Date: November 19, 2023 Subjective Patient seen and examined at bedside. She was lying in bed; denies any pain or discomfort. Denies difficulty breathing. Per RN, had 1 episode of vomiting today, likely she does not tolerate milk production per RN. Diet updated for no daily products. No new acute event overnight. Patient moved bowels in the morning, no blood or black stool. Patient's daughter Janeth was given a phone call again today morning, updated on her current status, discussed about initiating anticoagulation in her. Made her aware that given patient's frailty and weakness, she is prone to fall and putting her through anticoagulation might risks fall/hitting her head/bleeding internally. Janeth voiced understanding and would like to continue with heparin drip for now with close monitoring of her hemoglobin, and if no drop in hemoglo bin, she would like the patient be transitioned to her home warfarin. CTAP w/ no retroperitoneal bleed. Physical Exam Physical Exam: Constitutional: Awake, oriented to self and person. Lean/cachectic/frail/weak appearing. Respiratory: Bilateral crackles present. Decreased breath sound entry bila terally. Cardiovascular: RRR, no murmur, no edema Vessels: no JVD or carotid bruit Chest: normal inspection of chest Abdomen: Soft, nontender Musculoskeletal: no cyanosis or clubbing, extremities motor strength 5/5 Skin: no rashes, warm and dry normal turgor Neurologic: Grossly intact Results & Data Results & Data Vital Signs (Past 12 Hours) Vital Signs Temp Pulse Resp BP Pulse Ox O2 Del Method O2 Flow Rate 11/28/23 11:51 36.7 C 72 20 132/53 L 90 Nasal Cannula 4 11/28/23 07:08 36.4 C L 65 17 126/54 L 96 Nasal Cannula 3 11/28/23 07:04 62 16 96 Nasal Cannula 3 (3) Altered mental status Altered mental status type: unspecified Qualified Code(s): R41.82 - Altered mental status, unspecified (4) HTN (hypertension) Hypertension type: essential hypertension Qualified Code(s): I10 - Essential (primary) hypertension (5) HLD (hyperlipidemia) Hyperlipidemia type: unspecified Qualified Code(s): E78.5 - Hyperlipidemia, unspecified (8) T2DM (type 2 diabetes mellitus) Diabetes mellitus snf insulin use: without intermediate project manager use Diabetes mellitus complication status: with kidney complications Diabetes mellitus complication detail: with chronic kidney disease Chronic kidney disease stage: stage 3 (moderate) Qualified Code(s): E11.22 - Type 2 diabetes mellitus with diabetic chronic kidney disease; N18.3 - Chronic kidney disease, stage 3 (moderate) (9) Hypothyroidism Hypothyroidism type: unspecified Qualified Code(s): E03.9 - Hypothyroidism, unspecified
[2023-11-28] MEDS: HEPARIN SODIUM/DEXTROSE 25,000 UNITS/500 ML BAG IV SCH (17:41)
[2023-11-28] MEDS: Heparin IV Adult Wt-Based Low-Dose *NO* INITIAL Bolus Protocol IV STA (17:42)
[2023-11-28] MEDS: CHLORASEPTIC (PHENOL) 1.4% SOLN 180 ML BTL MT PRN (18:43)
[2023-11-29 00:27] LABS: ANTI-Xa, UFH(UnfractionatedHep 0.24 IU/ml (0.3-0.7)
--- NOTE | 2023-11-29 07:21 | XRay Report ---
XR chest 1V portable HISTORY: 88 years-old Female fu pul edema acute shortness of breath COMPARISON: 11/26/2023 TECHNIQUE: AP view of the chest FINDINGS: Cardiac silhouette is enlarged. Mitral annular calcifications. Mixed interstitial and alveolar opacit ies have mildly improved. No pneumothorax. Small pleural effusions with persistent bibasilar densitie s. Degenerative changes of the shoulders and spine. IMPRESSION: 1. Cardiomegaly with mildly improved mixed interstitial and alveolar opacities. 2. Small persistent pleural effusions. ACT 112: Negative or not required by law. The above report was generated using voice recognition software. It may contain grammatical, syntax o r spelling errors. Electronically signed by: Tod Hou M.D. 11/29/2023 7:20 AM
[2023-11-29 08:08] LABS: Hematocrit (blood only) 29.1 % (37.0-47.0); Hemoglobin 8.7 g/dl (12.0-16.0); Mean Corpuscular Hemoglobin 26.4 pg (25.0-34.0); Mean Corpuscular Hgb Conc 29.9 g/dL (32.0-36.0); Mean Corpuscular Volume 88.2 fL (80.0-100.0); Platelet Count 90 K/uL (130-400); RDW Coefficient of Variation 18.7 % (11.5-14.5); White Blood Count 6.82 K/ul (4.8-10.8)
[2023-11-29 08:24] LABS: BUN Creatinine Ratio 52.3 (10-20); Creatinine Clr Calc Pharmacy 30.2 ml/min; Est GFR (African American) 52.1 ml/min; Potassium 4.2 mmol/L (3.5-5.1)
[2023-11-29 08:33] LABS: ANTI-Xa, UFH(UnfractionatedHep 0.29 IU/ml (0.3-0.7)
--- NOTE | 2023-11-29 16:34 | Hospitalist Progress Note ---
Date of Service November 29, 2023 Assessment & Plan (1) Acute respiratory failure with hypoxia and hypercapnia: (2) Atypical pneumonia: (3) Altered mental status: (4) HTN (hypertension): (5) HLD (hyperlipidemia): (6) (HFpEF) heart failure with preserved ejection fraction: (7) CKD (chronic kidney disease) stage 4, GFR 15-29 ml/min: (8) T2DM (type 2 diabetes mellitus): (9) Hypothyroidism: Plan: Patient is a 88-year-old female with PMHx of type 2 diabetes, hypothyroidism, hyperlipidemia, paroxysmal atrial fibrillation, hypertension, chronic kidney disease stage IV, anemia due to chronic kidney disease, history of MRSA infection, history of depression, history of traumatic subdural hematoma, history of COVID, history of ambulatory dysfunction from [facility] presents to the hospital with acute onset of shortness of breath. She was recently hospitalized from November 11 to November 17 and was treated for atypical pneumonia. Acute on Chronic Respiratory Failure Pneumonia Possible amiodarone toxicity Acute on chronic HFpEF -Patient presents with acute onset of shortness of breath. Recent hospitalization for similar complaints. -No leukocytosis -Chest x-ray on admission reviewed multifocal patchy bilateral opacities. Small bilateral pleural effusions Blood cultureno growth till date ABG reviewed; mild respiratory acidosis Patient was started on cefepime and vancomycin. Vancomycin discontinued as MRSA is negative. Status post 7-day course with cefepime. IV methylprednisolone as per pulmonology; s/p 5 day course. As needed Lasix. Amiodarone is stopped as it was thought that it might have contributed to pulmonary toxicity. Palliative care consulted for goals of care discussion; patient had multiple hospitalization recently; her prognosis is poor due to her advanced age, multiple comorbidities and her respiratory status. Pulmonology and cardiology both recommend palliative care consultation. Plan is to continue medical intervention for the time being; if patient decompensatetransition to comfort care. Repeat CXR 11/25 and 11/28 w/ minimal improvement. Pt's dtr would like to continue current level of care for now and is contemplating further actions based on how she does in next few days. Atrial Fibrillation Supratherapeutic INR Demand ischemia Acute blood loss anemia status post 1 unit of transfusion in November 19 EKG on admission personally reviewed; sinus rhythm with PACs INR reviewed; supratherapeutic status post vitamin K 2.5 mg on November 19 Hemoglobin down trended to 6.5; improved with transfusion Hemoglobin has stabilized around 8.5. Continue Protonix twice daily; plan to treat for 12-week Monitor for any signs or symptoms of GI bleed. 11/22 fobt neg. 11/27 CTAP w/ no retroperitoneal bleed. d/w Janeth regarding pros and cons of initiating anticoagulation, started pt on low dose hep drip 11/27 -- HnH stable -- resume coumadin at reduced dose of 1 mg daily. Monitor HnH --- if not drop in 1-2 days, transition to warfarin w/ hep bridge. Amiodarone on hold; Continue on metoprolol 12.5 twice daily, statin Acute kidney injury on CKD Likely due to sepsis Creatinine continues to uptrend; stabilized around 1.6-1.8 Monitor urine output Avoid nephrotoxic agent Renal ultrasoundnegative for any acute finding Nephrology on board; Lasix as needed Severe malnutrition: Patient with blood loss of 1% since admission. Patient appears cachectic with bitemporal wasting at the examination. Nutrition on board. Appreciate recs. Patient has various risk factor including advanced age, acute on chronic respiratory failure, pneumonia, acute on chronic heart failure with preserved ejection fraction, CRISPIN/CKD, diabetes mellitus. DM type II -Last A1c 6.6 on 09/06/2023 -ISS with Accu-Cheks ACHS -HH/DM diet allowed Glycemic pharmacy on consult. - consider decreasing dose of diabetic meds on dc [adv age, tighter glucose control overall as evident by A1c] Hypothyroidism -Chronic, stable, cont levothyroxine DVT ppx: Coumadin on hold due to possible bleeding. Lines: 2 PIV CODE: DNR/DNI FEN/GI: HH/DM diet Per prior attending: Discussed with patient's daughter over the phone regarding patient's overall condition multiple times. Her prognosis is overall guarded due to multiple medical issues, [id number] hospitalization and advance age. Plan to continue medical intervention for the time being; CODE STATUS is DNR/DNI. If patient decompensates; plan to transition over to comfort care. Palliative care on board as well Time spent evaluating patient, direct bedside care, chart review, placing orders, interpretation of diagnostic studies, discussion with consultants, patient, and family members, as well as other required patient management activities is __55__ minutes. Please note the above document was generated using voice recognition software. It may contain grammatical, syntax or spelling errors. Any formal questions or concerns about the content, text or information contained within the body of this dictation should be directly addressed to the undersigned for clarification. Admission and Anticipated Discharge Date Admission Date: November 19, 2023 Subjective Patient seen and examined at bedside. She was lying in bed; denies any pain or discomfort. Denies difficulty breathing. Patient lying in bed, appears very tired, reports not feeling as good as yesterday, oxygen at 2.5 L. Patient seem to be eating okay and moving bowels okay. Patient's daughter Janeth was given a phone call, made aware of palliative care is not available in the hospital. Discussed again goals of care, she would like to continue current level of care for next few days before determining any consideration for hospice. But she is aware, if patient were to decompensate, she is to be notified and possible changes to comfort care measures at that point in time. Physical Exam Physical Exam: Constitutional: Awake, oriented to self and person. Lean/cachectic/frail/weak appearing. Respiratory: Bilateral crackles present. Decreased breath sound entry bilaterally. Cardiovascular: RRR, no murmur, no edema Vessels: no JVD or carotid bruit Chest: normal inspection of chest Abdomen: Soft, nontender Musculoskeletal: no cyanosis or clubbing, extremities motor strength 5/5 Skin: no rashes, warm and dry normal turgor Neurologic: Grossly intact Results & Data Results & Data Vital Signs (Past 12 Hours) Vital Signs Temp Pulse Pulse Resp BP Pulse Ox O2 Del Method 11/29/23 14:56 36.7 C 77 19 135/48 L 95 Room Air 11/29/23 10:51 36.5 C 73 17 123/41 L 94 Nasal Cannula 11/29/23 07:53 36.3 C L 76 17 147/72 H 95 Nasal Cannula 11/29/23 07:30 Room Air 11/29/23 07:20 67 11/29/23 07:05 70 18 96 Nasal Cannula O2 Flow Rate 11/29/23 14:56 11/29/23 10:51 2.5 11/29/23 07:53 2.0 11/29/23 07:30 11/29/23 07:20 11/29/23 07:05 2 (3) Altered mental status Altered mental status type: unspecified Qualified Code(s): R41.82 - Altered mental status, unspecified (4) HTN (hypertension) Hypertension type: essential hypertension Qualified Code(s): I10 - Essential (primary) hypertension (5) HLD (hyperlipidemia) Hyperlipidemia type: unspecified Qualified Code(s): E78.5 - Hyperlipidemia, unspecified (8) T2DM (type 2 diabetes mellitus) Diabetes mellitus fci insulin use: without long term acute care registered nurse use Diabetes mellitus complication status: with kidney complications Diabetes mellitus complication detail: with chronic kidney disease Chronic kidney disease stage: stage 3 (moderate) Qualified Code(s): E11.22 - Type 2 diabetes mellitus with diabetic chronic kidney disease; N18.3 - Chronic kidney disease, stage 3 (moderate) (9) Hypothyroidism Hypothyroidism type: unspecified Qualified Code(s): E03.9 - Hypothyroidism, unspecified
[2023-11-29] MEDS: WARFARIN SOD 1 MG TAB PO SCH (16:52)
[2023-11-29 19:13] LABS: ANTI-Xa, UFH(UnfractionatedHep 0.35 IU/ml (0.3-0.7)
[2023-11-30 01:38] LABS: ANTI-Xa, UFH(UnfractionatedHep 0.43 IU/ml (0.3-0.7)
[2023-11-30 06:46] LABS: Hematocrit (blood only) 27.7 % (37.0-47.0); Hemoglobin 8.2 g/dl (12.0-16.0)
[2023-11-30 07:08] LABS: Creatinine Clr Calc Pharmacy 31.7 ml/min; Est GFR (African American) 55.2 ml/min; Est GFR (Non-African American) 47.6 ml/min; Magnesium 1.9 mg/dl (1.7-2.4); Potassium 4.3 mmol/L (3.5-5.1)
[2023-11-30 07:18] LABS: ANTI-Xa, UFH(UnfractionatedHep 0.45 IU/ml (0.3-0.7); INR 1.6 (0.9-1.1); Prothrombin Time 17.5 Seconds (9.0-12.0)
--- NOTE | 2023-11-30 07:29 | Pharmacy Report ---
Pharmacy Glycemic Short Note 2 - Date of Service November 30, 2023 - Glycemic Short BSG Results (Last 24 hours): 11/29/23 11/29/23 11/29/23 07:27 11:27 16:04 Glucose 91 POC Glucose 184 H 156 H 11/29/23 11/30/23 11/30/23 19:51 06:16 07:13 Glucose 115 H POC Glucose 160 H 136 H OUTPATIENT ANTIDIABETIC REGIMEN: * Glipizide 10mg QAM * HbA1c 6.1% (11/12/23) ASSESSMENT: 11/29: * Radha received 19 units of insulin yesterday, 8 basal + 11 bolus. BSGs were [phone] mg/dL. * Fasting BSG controlled at 136 mg/dL today. No change to basal scale at HS. * Better control of lunchtime postprandials. Continue with tighter bolus coverage at breakfast only. 11/26: * Despite reducing Lantus scale last evening, RN still administered old dose of 10 units basal by mistake. However, fasting BSG actually trended up this AM, 155 mg/dL. Will continue with basal scale at bedtime to give 0-10 units depending on BSG. * Trend of postprandial hyperglycemia at lunchtime. Will tighten bolus regimen at breakfast only tomorrow. 11/25: * Radha received 24 units of insulin yesterday (10 were basal) * Fasting BSG this AM within goal range, basal insulin decreased significantly yesterday to due AM hypoglycemia potentially due to decreased PO intake per nursing documentation. Goal range increased to prevent hypoglycemia. * Day 5 of IV methylprednisolone completed yesterday, basal dosed decreased further and only if BSGs are elevated * Novolog parameters loosened due to discontinuation of steroids. 11/23: * Radha received 54 units of insulin yesterday (30 were basal) * Fastomg BSG within goal range, continue current basal regimen * She continues on cefepime and IV methylprednisolone 40mg BID * Lunchtime BSGs tend to be high and had hypoglycemia at bedtime yesterday evening, will tighten breakfast Novolog to prevent lunchtime highs and evening lows 11/21: * Radha received 72 units of insulin yesterday (30 were basal) * Fasting BSG acceptable this AM, will continue current basal regimen * BSGs trended down significantly yesterday, loosened Novolog parameters some * Lunchtime BSG elevated today likely due to late administration of morning insulin 11/20: * Patient received 52 nits of insulin yesterday, 20 basal, blood sugar still elevated d/t IV steroids. Remains on Solu-Medrol 40mg IV Q12H. * Tighten CF/CR and increase basal at this time. 11/19: * Radha is an 88 YOF admitted for hypoxia and has a history of T2DM. Pharmacy has been consulted to assist with glycemic management while inpatient. * She is receiving IV methylprednisolone 40mg BID for pneumonitis as well as cefepime and vancomycin to cover possible aspiration pneumonia. * She was started on loose NovoLog coverage and BSGs trended up with IV steroids, carbohydrate coverage tightened * Lantus 0.4units/kg given with dinner to cover steroids, will reassess basal in AM PLAN FOR INPATIENT GLYCEMIC CONTROL: * Hold outpatient oral diabetes medications * Basal insulin * Lantus 5-10 units SC HS (see eMAR for more details) * Bolus insulin * NovoLog per scale ACHS or Q6 when NPO * Goal Range: Low 120 mg/dL - High 150 mg/dL * Breakfast: Correction Factor of 20 mg/dL/unit; Carb ratio of 1 unit per 7 grams CHO consumed * Lunch, Dinner, HS: Correction Factor of 30 mg/dL/unit; Carb ratio of 1 unit per 9 grams CHO consumed
--- NOTE | 2023-11-30 14:53 | Hospitalist Progress Note ---
Date of Service November 30, 2023 Assessment & Plan (1) Acute respiratory failure with hypoxia and hypercapnia: (2) Atypical pneumonia: (3) Altered mental status: (4) HTN (hypertension): (5) HLD (hyperlipidemia): (6) (HFpEF) heart failure with preserved ejection fraction: (7) CKD (chronic kidney disease) stage 4, GFR 15-29 ml/min: (8) T2DM (type 2 diabetes mellitus): (9) Hypothyroidism: Plan: Patient is a 88-year-old female with PMHx of type 2 diabetes, hypothyroidism, hyperlipidemia, paroxysmal atrial fibrillation, hypertension, chronic kidney disease stage IV, anemia due to chronic kidney disease, history of MRSA infection, history of depression, history of traumatic subdural hematoma, history of COVID, history of ambulatory dysfunction from [facility] presents to the hospital with acute onset of shortness of breath. She was recently hospitalized from November 11 to November 17 and was treated for atypical pneumonia. Acute on Chronic Respiratory Failure Pneumonia Possible amiodarone toxicity Acute on chronic HFpEF -Patient presents with acute onset of shortness of breath. Recent hospitalization for similar complaints. -No leukocytosis -Chest x-ray on admission reviewed multifocal patchy bilateral opacities. Small bilateral pleural effusions Blood cultureno growth till date ABG reviewed; mild respiratory acidosis Patient was started on cefepime and vancomycin. Vancomycin discontinued as MRSA is negative. Status post 7-day course with cefepime. IV methylprednisolone as per pulmonology; s/p 5 day course. As needed Lasix. Amiodarone is stopped as it was thought that it might have contributed to pulmonary toxicity. Palliative care consulted for goals of care discussion; patient had multiple hospitalization recently; her prognosis is poor due to her advanced age, multiple comorbidities and her respiratory status. Pulmonology and cardiology both recommend palliative care consultation. Plan is to continue medical intervention for the time being; if patient decompensatetransition to comfort care. Repeat CXR 11/25 and 11/28 w/ minimal improvement. As of 11/28, Pt's dtr would like to continue current level of care for now and is contemplating further actions based on how she does in next few days. Atrial Fibrillation Supratherapeutic INR Demand ischemia Acute blood loss anemia status post 1 unit of transfusion in November 19 EKG on admission personally reviewed; sinus rhythm with PACs INR reviewed; supratherapeutic status post vitamin K 2.5 mg on November 19 Hemoglobin down trended to 6.5; improved with transfusion Hemoglobin has stabilized around 8.5. Continue Protonix twice daily; plan to treat for 12-week Monitor for any signs or symptoms of GI bleed. 11/22 fobt neg. 11/27 CTAP w/ no retroperitoneal bleed. d/w Janeth regarding pros and cons of initiating anticoagulation, started pt on low dose hep drip 11/27 -- HnH stable -- resumed coumadin at reduced dose of 1 mg daily on 11/28 f/u pt/inr in AM, likely dc hep drip tomorrow pending AM inr. Amiodarone on hold; Continue on metoprolol 12.5 twice daily, statin Acute kidney injury on CKD Likely due to sepsis Creatinine continues to uptrend; stabilized around 1.6-1.8 Monitor urine output Avoid nephrotoxic agent Renal ultrasoundnegative for any acute finding Nephrology on board; Lasix as needed Severe malnutrition: Patient with blood loss of 1% since admission. Patient appears cachectic with bitemporal wasting at the examination. Nutrition on board. Appreciate recs. Patient has various risk factor including advanced age, acute on chronic respiratory failure, pneumonia, acute on chronic heart failure with preserved ejection fraction, CRISPIN/CKD, diabetes mellitus. DM type II -Last A1c 6.6 on 09/06/2023 -ISS with Accu-Cheks ACHS -HH/DM diet allowed Glycemic pharmacy on consult. - consider decreasing dose of diabetic meds on dc [adv age, tighter glucose control overall as evident by A1c] Hypothyroidism -Chronic, stable, cont levothyroxine DVT ppx: Coumadin on hold due to possible bleeding. Lines: 2 PIV CODE: DNR/DNI FEN/GI: HH/DM diet Per prior attending: Discussed with patient's daughter over the phone regarding patient's overall condition multiple times. Her prognosis is overall guarded due to multiple medical issues, [id number] hospitalization and advance age. Plan to continue medical intervention for the time being; CODE STATUS is DNR/DNI. If patient decompensates; plan to transition over to comfort care. Palliative care on board as well Time spent evaluating patient, direct bedside care, chart review, placing orders, interpretation of diagnostic studies, discussion with consultants, patient, and family members, as well as other required patient management activities is __51__ minutes. Please note the above document was generated using voice recognition software. It may contain grammatical, syntax or spelling errors. Any formal questions or concerns about the content, text or information contained within the body of this dictation should be directly addressed to the undersigned for clarification. Admission and Anticipated Discharge Date Admission Date: November 19, 2023 Subjective Patient seen and examined at bedside. She was lying in bed; denies any pain or discomfort. Denies difficulty breathing. Patient lying in bed, appears very tired, reports not feeling as good. Patient seem to be eating okay and moving bowels okay per RN Patient's daughter Janeth was given a phone call 11/28, made aware of palliative care is not available in the hospital. Discussed again goals of care, she would like to continue current level of care for next few days before determining any consideration for hospice. But she is aware, if patient were to decompensate, she is to be notified and possible changes to comfort care measures at that point in time. Physical Exam Physical Exam: Constitutional: Awake, oriented to self and person. Lean/cachectic/frail/weak appearing. Respiratory: Bilateral crackles present. Decreased breath sound entry bilaterally. Cardiovascular: RRR, no murmur, no edema Vessels: no JVD or carotid bruit Chest: normal inspection of chest Abdomen: Soft, nontender Musculoskeletal: no cyanosis or clubbing, extremities motor strength 5/5 Skin: no rashes, warm and dry normal turgor Neurologic: Grossly intact Results & Data Results & Data Vital Signs (Past 12 Hours) Vital Signs Temp Pulse Pulse Resp BP Pulse Ox O2 Del Method 11/30/23 10:47 36.3 C L 66 17 119/56 L 96 Nasal Cannula 11/30/23 08:00 61 11/30/23 07:26 Nasal Cannula 11/30/23 07:20 36.3 C L 66 16 114/74 100 Nasal Cannula, Nebulizer 11/30/23 07:08 60 18 99 Nasal Cannula O2 Flow Rate 11/30/23 10:47 3 11/30/23 08:00 11/30/23 07:26 2 11/30/23 07:20 2 11/30/23 07:08 3 (3) Altered mental status Altered mental status type: unspecified Qualified Code(s): R41.82 - Altered mental status, unspecified (4) HTN (hypertension) Hypertension type: essential hypertension Qualified Code(s): I10 - Essential (primary) hypertension (5) HLD (hyperlipidemia) Hyperlipidemia type: unspecified Qualified Code(s): E78.5 - Hyperlipidemia, unspecified (8) T2DM (type 2 diabetes mellitus) Diabetes mellitus long term care administrator insulin use: without shelter use Diabetes mellitus complication status: with kidney complications Diabetes mellitus complication detail: with chronic kidney disease Chronic kidney disease stage: stage 3 (moderate) Qualified Code(s): E11.22 - Type 2 diabetes mellitus with diabetic chronic kidney disease; N18.3 - Chronic kidney disease, stage 3 (moderate) (9) Hypothyroidism Hypothyroidism type: unspecified Qualified Code(s): E03.9 - Hypothyroidism, unspecified
[2023-12-01 08:01] LABS: Hematocrit (blood only) 24.7 % (37.0-47.0); Hemoglobin 7.8 g/dl (12.0-16.0)
[2023-12-01 08:21] LABS: BUN Creatinine Ratio 45.4 (10-20); Calcium 7.6 mg/dl (8.6-10.3); Est GFR (Non-African American) 51.8 ml/min; Magnesium 1.8 mg/dl (1.7-2.4); Potassium 3.9 mmol/L (3.5-5.1)
[2023-12-01 08:32] LABS: ANTI-Xa, UFH(UnfractionatedHep 0.42 IU/ml (0.3-0.7); INR 1.6 (0.9-1.1); Prothrombin Time 17.5 Seconds (9.0-12.0)
--- NOTE | 2023-12-01 10:09 | Hospitalist Progress Note ---
Date of Service December 01, 2023 Assessment & Plan (1) Acute respiratory failure with hypoxia and hypercapnia: (2) Atypical pneumonia: (3) Altered mental status: (4) HTN (hypertension): (5) HLD (hyperlipidemia): (6) (HFpEF) heart failure with preserved ejection fraction: (7) CKD (chronic kidney disease) stage 4, GFR 15-29 ml/min: (8) T2DM (type 2 diabetes mellitus): (9) Hypothyroidism: Plan: 88-year-old female with PMHx of type 2 diabetes, hypothyroidism, hyperlipidemia, paroxysmal atrial fibrillation, hypertension, chronic kidney disease stage IV, anemia due to chronic kidney disease, history of MRSA infection, history of depression, history of traumatic subdural hematoma, history of COVID, history of ambulatory dysfunction from [facility] presents to the hospital with acute onset of shortness of breath. She was recently hospitalized from November 11 to November 17 and was treated for atypical pneumonia. Acute on Chronic Respiratory Failure Pneumonia Possible amiodarone toxicity Acute on chronic HFpEF -Patient presented with acute onset of shortness of breath. Recent hospitalization for similar complaints. -No leukocytosis -Chest x-ray on admission reviewed multifocal patchy bilateral opacities. Small bilateral pleural effusions Blood cultureno growth till date Patient was started on cefepime and vancomycin. Vancomycin discontinued as MRSA is negative. Completed 7-day course with cefepime. Got IV methylprednisolone as per pulmonology. Completed 5 day course. Has been getting as needed Lasix intermittently. Amiodarone is stopped as it was thought that it might have contributed to pulmonary toxicity. Pulmonology and cardiology had recommend palliative care consultation. Palliative care consulted for goals of care discussion; patient had multiple hospitalization recently; her prognosis is poor due to her advanced age, multiple comorbidities and her respiratory status. Plan is to continue medical intervention for the time being; if patient decompensatetransition to comfort care. Repeat CXR 11/25 and 11/28 w/ minimal improvement. Per Provider on 11/28, Pt's daughter would like to continue current level of care for now and is contemplating further actions based on how she does in next few days. Atrial Fibrillation Supratherapeutic INR Demand ischemia Possible Acute blood loss anemia status post 1 unit of transfusion in November 19 EKG on admission personally reviewed; sinus rhythm with PACs INR reviewed; supratherapeutic status post vitamin K 2.5 mg on November 19 Hemoglobin down trended to 6.5; improved with transfusion Continue Protonix twice daily Monitor for any signs or symptoms of GI bleed. 11/23/23 fobt was neg. 11/28/23 CTAP w/ no retroperitoneal bleed. Dr Gilbert had discussed with Janeth (daughter) regarding pros and cons of initiating anticoagulation, started pt on low dose hep drip 11/28/23 and resumed coumadin at reduced dose of 1 mg daily on 11/29/23 INR is 1.6 today Will revisit anticoagulation with daughter considering Hb is slowly trending down again, 7.8 today. No obvious bleed Amiodarone on hold Continue on metoprolol 12.5mg bid, statin Acute kidney injury on CKD Likely due to sepsis Creatinine peaked at 1.95 CRISPIN is resolved Cr is 0.97 Monitor urine output Avoid nephrotoxic agent Renal ultrasoundnegative for any acute finding Nephrology eval noted Severe malnutrition: Patient appears cachectic with bitemporal wasting at the examination. Nutrition recs noted. Patient has various risk factor including advanced age, acute on chronic respir atory failure, pneumonia, acute on chronic heart failure with preserved ejection fraction, CRISPIN/CKD, diabetes mellitus. Encourage oral intake. Boost DM type II -Last A1c 6.6 on 09/06/2023 -ISS with Accu-Cheks ACHS -HH/DM diet allowed Glycemic pharmacy on board Hypothyroidism Chronic, stable, Cont levothyroxine DVT ppx: Coumadin on hold due to possible bleeding. Lines: 2 PIV CODE: DNR/DNI FEN/GI: HH/DM diet CODE STATUS is DNR/DNI. Per Previous Provider, If patient decompensates; plan to transition over to comfort care. Palliative care on board as well I spent a total of 50 minutes coordinating, documenting and providing care for this patient excluding time spent in performance of separately billed services Admission and Anticipated Discharge Date Admission Date: November 19, 2023 Subjective Patient seen and examined. Patient reports some cough, some shortness of breath with exertion, sore throat congestion. Denies any chest pain, headache, dizziness Denies any nausea, vomiting stent, abdominal pain. Reports poor appetite Denied fever, chills Physical Exam Constitutional: + cachectic; no acute distress Eyes: PERRL, conjunctivae normal, anicteric sclerae ENMT: external ear and nose normal, oropharynx normal Respiratory: normal respiratory effort; no respiratory distress Diminished breath sounds bilaterally, on nasal cannula 2 L/min Cardiovascular: Rate/Rhythm: regular rate and regular rhythm S1-S2 Gastrointestinal (Abdomen): normal bowel sounds, soft, nontender, no hepatosplenomegaly Musculoskeletal: No pedal edema Neurologic: PERRL, EOMI, accommodation nl, no face palsy, no dysarthria Psychiatric: Orientation: alert, oriented to person, oriented to place and cooperative; + not oriented to time Results & Data Results & Data Vital Signs (Past 12 Hours) Vital Signs Temp Pulse Pulse Resp BP Pulse Ox O2 Del Method 12/01/23 07:46 36.3 C L 60 22 123/51 L 92 Nasal Cannula 12/01/23 07:30 83 18 96 Nasal Cannula 12/01/23 03:00 36.3 C L 66 18 110/45 L 92 Room Air 12/01/23 00:00 73 11/30/23 23:07 36.5 C 75 22 121/44 L 91 Nasal Cannula O2 Flow Rate 12/01/23 07:46 3 12/01/23 07:30 2 12/01/23 03:00 12/01/23 00:00 11/30/23 23:07 2 Laboratory Results Abnormal lab results 11/30/23 11/30/23 11/30/23 Range/Units 12:38 16:05 20:10 Hgb (12.0-16.0) g/dl Hct (37.0-47.0) % PT (9.0-12.0) Seconds INR (0.9-1.1) Chloride (98-107) mmol/L BUN (6-23) mg/dl BUN/Creatinine Ratio (10-20) Glucose (70-99(Fasting)) mg/dl POC Glucose 137 H 186 H 214 H (70-99) mg/dl Calcium (8.6-10.3) mg/dl 12/01/23 12/01/23 Range/Units 07:17 07:21 Hgb 7.8 L (12.0-16.0) g/dl Hct 24.7 L (37.0-47.0) % PT 17.5 H (9.0-12.0) Seconds INR 1.6 H (0.9-1.1) Chloride 112 H (98-107) mmol/L BUN 44 H (6-23) mg/dl BUN/Creatinine Ratio 45.4 H (10-20) Glucose 132 H (70-99(Fasting)) mg/dl POC Glucose 153 H (70-99) mg/dl Calcium 7.6 L (8.6-10.3) mg/dl (3) Altered mental status Altered mental status type: unspecified Qualified Code(s): R41.82 - Altered mental status, unspecified (4) HTN (hypertension) Hypertension type: essential hypertension Qualified Code(s): I10 - Essential (primary) hypertension (5) HLD (hyperlipidemia) Hyperlipidemia type: unspecified Qualified Code(s): E78.5 - Hyperlipidemia, unspecified (8) T2DM (type 2 diabetes mellitus) Chronic kidney disease stage: stage 3 (moderate) Diabetes mellitus complication detail: with chronic kidney disease Diabetes mellitus complication status: with kidney complications 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
--- NOTE | 2023-12-01 11:51 | Pharmacy Report ---
Pharmacy Glycemic Short Note 2 - Date of Service December 01, 2023 - Glycemic Short BSG Results (Last 24 hours): 11/30/23 11/30/23 11/30/23 12:38 16:05 20:10 Glucose POC Glucose 137 H 186 H 214 H 12/01/23 12/01/23 12/01/23 07:17 07:21 11:04 Glucose 132 H POC Glucose 153 H 242 H OUTPATIENT ANTIDIABETIC REGIMEN: * Glipizide 10mg QAM * HbA1c 6.1% (11/12/23) ASSESSMENT: 11/30: * Patient received 24 units of insulin yesterday; 8 basal + 16 bolus. BSGs were 145-189-014-214 mg/dl. * Fasting BSG = 132 mg/dl today. Basal insulin continued on scale at HS. * Post prandial BSGs at dinner and HS elevated yesterday. Pre-lunch BSG today = 241 mg/dl- this elevated BSG is due to breakfast insulin given later at 10 am today and BSG check was at 11 am, so the full effects of Novolog given is not being seen at 11 am. * Post prandial BSGs could be better; therefore tightened lunch, dinner and HS parameters slightly. 11/29: * Radha received 19 units of insulin yesterday, 8 basal + 11 bolus. BSGs were [phone] mg/dL. * Fasting BSG controlled at 136 mg/dL today. No change to basal scale at HS. * Better control of lunchtime postprandials. Continue with tighter bolus coverage at breakfast only. 11/26: * Despite reducing Lantus scale last evening, RN still administered old dose of 10 units basal by mistake. However, fasting BSG actually trended up this AM, 155 mg/dL. Will continue with basal scale at bedtime to give 0-10 units depending on BSG. * Trend of postprandial hyperglycemia at lunchtime. Will tighten bolus regimen at breakfast only tomorrow. 11/25: * Radha received 24 units of insulin yesterday (10 were basal) * Fasting BSG this AM within goal range, basal insulin decreased significantly yesterday to due AM hypoglycemia potentially due to decreased PO intake per nursing documentation. Goal range increased to prevent hypoglycemia. * Day 5 of IV methylprednisolone completed yesterday, basal dosed decreased further and only if BSGs are elevated * Novolog parameters loosened due to discontinuation of steroids. 11/23: * Radha received 54 units of insulin yesterday (30 were basal) * Fastomg BSG within goal range, continue current basal regimen * She continues on cefepime and IV methylprednisolone 40mg BID * Lunchtime BSGs tend to be high and had hypoglycemia at bedtime yesterday evening, will tighten breakfast Novolog to prevent lunchtime highs and evening lows 11/21: * Radha received 72 units of insulin yesterday (30 were basal) * Fasting BSG acceptable this AM, will continue current basal regimen * BSGs trended down significantly yesterday, loosened Novolog parameters some * Lunchtime BSG elevated today likely due to late administration of morning insulin 11/20: * Patient received 52 nits of insulin yesterday, 20 basal, blood sugar still elevated d/t IV steroids. Remains on Solu-Medrol 40mg IV Q12H. * Tighten CF/CR and increase basal at this time. 11/19: * Radha is an 88 YOF admitted for hypoxia and has a history of T2DM. Pharmacy has been consulted to assist with glycemic management while inpatient. * She is receiving IV methylprednisolone 40mg BID for pneumonitis as well as cefepime and vancomycin to cover possible aspiration pneumonia. * She was started on loose NovoLog coverage and BSGs trended up with IV steroids, carbohydrate coverage tightened * Lantus 0.4units/kg given with dinner to cover steroids, will reassess basal in AM PLAN FOR INPATIENT GLYCEMIC CONTROL: * Hold outpatient oral diabetes medications * Basal insulin * Lantus 5-10 units SC HS (see eMAR for more details) * Bolus insulin * NovoLog per scale ACHS or Q6 when NPO * Goal Range: Low 120 mg/dL - High 150 mg/dL * Breakfast: Correction Factor of 20 mg/dL/unit; Carb ratio of 1 unit per 7 grams CHO consumed * Lunch, Dinner, HS: Correction Factor of 25 mg/dL/unit; Carb ratio of 1 unit per 8 grams CHO consumed
--- NOTE | 2023-12-02 13:37 | Discharge Summary ---
Date of Service December 02, 2023 Admission HPI Per Admitting Provider This is a 88-year-old female with PMHx of type 2 diabetes, hypothyroidism, hyperlipidemia, paroxysmal atrial fibrillation, hypertension, chronic kidney disease stage IV, anemia due to chronic kidney disease, history of MRSA infection, history of depression, history of traumatic subdural hematoma, history of COVID, history of ambulatory dysfunction from [facility] who presents to the hospital with acute onset of shortness of breath where she was reportedly having O2 sats in the 70s. She was just recently admitted on 11/11 to 11/17 for very similar presentation however throughout that hospital stay she was treated for UTI and then atypical pneumonia starting azithromycin on 11/14 where had improved and then was discharged back to [facility]. She represents today as nursing staff at facility reported that she was found to have O2 sats again down in the 70s, and her oxygen had come off some time while she was sleeping. Once NC was placed on, her sats came back up into the mid 80s, EMS was called and pt was brought to the hospital. Here, pt was placed on 15L nonrebreather which she improved with, however due to RR of 25, was placed on BiPAP while here. ABG showing pH of 7.39, CO2 46, pO2 69, bicarb of 28. No WBC, 7.15, INR is therapeutic at 2.5, troponin is noted to be slightly elevated at 42. Chest x- ray appears significantly progressed with infiltrate compared to previous imaging study last week. She has been placed on Vanco and cefepime IV. Patient's daughter and her are present at bedside and supports the history. Patient is unable to speak very clearly with the BiPAP mask in place, she answers yes to having pain but cannot pinpoint any location. Daughter notes that she saw patient yesterday at [facility], she was eating very minimally, seemed weak, lethargic, and not herself. She feels that she worsened throughout her past hospital stay compared to improving. She denies noticing any cough, issues with oxygen yesterday, fever, chills. At this time daughter is wanting to treat any infection, she is agreeable that mother would not want intubation or CPR. We discussed giving breaks with wearing BiPAP and she is agreeable to such. She denies any issues with speech/swallowing in the past but cannot this did not happen in the last few days as her weakness has progressed. Admission Exam Per Admitting Provider General: awake, alert, no apparent distress, elderly white female, wearing BiPAP, opens eyes to verbal stimuli but has difficulty responding/answering my questions clearly Head: Normocephalic, atraumatic ENT: PERRL, EOMI, mucous membranes dry Chest: Coarse breath sounds throughout with wearing BiPAP, no wheeze or rales, + crackles, diminished at bases bilaterally. Cardiac: Regular rate and rhythm, heart rate in 80s, + systolic murmur, no JVD, normal peripheral pulses, good capillary refill Abdominal: NABS x 4 quadrants, soft, nondistended, nontender to palpation, no rebound or guarding Extremities: Normal inspection, no peripheral edema or erythema, Wearing pressure offloading boots, calfs nontender to palpation Psych: Normal mood and affect Neuro: AAO x 3, strength intact bilaterally and rated 4/5, no motor deficits, speech is slow, difficult to understand today, no peripheral sensory deficits Principal Diagnosis Acute respiratory failure with hypoxia Acute on chronic heart failure Idiopathic interstitial pneumonia Discharge Exam Constitutional + cachectic; no acute distress Eyes PERRL, conjunctivae normal, anicteric sclerae ENMT external ear and nose normal, oropharynx normal Respiratory normal respiratory effort; no respiratory distress Diminished breath sounds Cardiovascular Rate/Rhythm: regular rate and regular rhythm S1 S2 Gastrointestinal (Abdomen) normal bowel sounds, soft, nontender, no hepatosplenomegaly Musculoskeletal No pedal edema Neurologic PERRL, EOMI, accommodation nl, no face palsy, no dysarthria Psychiatric Orientation: alert, oriented to person, oriented to place and cooperative; + not oriented to time Discharge Data Allergies Allergy/AdvReac Type Severity Reaction Status Date / Time amoxicillin Allergy Intermediate Unknown Verified 08/18/23 14:25 sulfamethoxazole Allergy Intermediate Rash Verified 08/18/23 14:25 tetanus toxoid, adsorbed Allergy Intermediate HIVES Verified 08/18/23 14:25 tetracycline Allergy Intermediate hives Verified 08/18/23 14:25 trimethoprim Allergy Intermediate Rash Verified 08/18/23 14:25 rosuvastatin AdvReac Intermediate Muscle Verified 08/18/23 14:25 stiffness Consultations 11/19/23 12:30 ED Decision to Admit Stat 11/19/23 12:32 Consult Pulmonology Routine 11/20/23 07:59 Consult Cardiology Routine 11/21/23 09:04 Consult Palliative Care Routine 11/23/23 09:49 Consult Nephrology Routine Ordered Studies 11/21/23 12:29 US Renal Bladder [US renal/blad retro comp] Routine 11/28/23 08:46 CT Abd and Pelvis [CT abd pelvis wo con] Routine Hospital Course (1) Acute respiratory failure with hypoxia and hypercapnia: (2) Atypical pneumonia: (3) Altered mental status: (4) HTN (hypertension): (5) HLD (hyperlipidemia): (6) (HFpEF) heart failure with preserved ejection fraction: (7) T2DM (type 2 diabetes mellitus): (8) Hypothyroidism: 88-year-old female with PMHx of type 2 diabetes, hypothyroidism, hyperlipidemia, paroxysmal atrial fibrillation, hypertension, chronic kidney disease stage IV, anemia due to chronic kidney disease, history of MRSA infection, history of d epression, history of traumatic subdural hematoma, history of COVID, history of ambulatory dysfunction from [facility] presents to the hospital with acute onset of shortness of breath. She was recently hospitalized from November 11 to November 17 and was treated for atypical pneumonia. Acute on Chronic Respiratory Failure Pneumonia, atypical Possible Idiopathic interstitial pneumonia Possible amiodarone toxicity Acute on chronic HFpEF -Patient presented with acute onset of shortness of breath. Recent hospitalization for similar complaints. -No leukocytosis -Chest x-ray on admission reviewed multifocal patchy bilateral opacities. Small bilateral pleural effusions Blood cultureno growth till date Patient was started on cefepime and vancomycin. Vancomycin discontinued as MRSA is negative. Completed 7-day course with cefepime. Got IV methylprednisolone as per pulmonology. Completed 5 day course. Has been getting as needed Lasix intermittently. Amiodarone was stopped as it was thought that it might have contributed to pulmonary toxicity. Pulmonology and cardiology had recommend palliative care consultation. Palliative care consulted for goals of care discussion; patient had multiple hospitalization recently; her prognosis is poor due to her advanced age, multiple comorbidities and her respiratory status. Atrial Fibrillation Supratherapeutic INR Demand ischemia Possible Acute blood loss anemia status post 1 unit of transfusion in November 19 EKG on admission personally reviewed; sinus rhythm with PACs INR reviewed; supratherapeutic status post vitamin K 2.5 mg on November 19 Hemoglobin down trended to 6.5; improved with transfusion. Last Hb was 7.8 Acute kidney injury on CKD3 Likely due to sepsis Creatinine peaked at 1.95 CRISPIN is resolved Last Cr was 0.97 [facility] malnutrition: Patient appears cachectic with bitemporal wasting at the examination. DM type II HbA1c 6.1 Hypothyroidism On levothyroxine Patient had deferred decision making regarding her healthcare to her daughter Had goals of care discussion with multiple providers inpatient as well Palliative team Daughter decided to transition to comfort care with goal of hospice at facility where patient lives Warfarin, aspirin, statin were discontinued Med adjustments were made per patient and daughter's wishes. Hospice can make further adjustments as needed Total Time Total Time Spent Total Time Spent (In Minutes): 45 Total Time Includes: Examination of the Patient, Discharge Planning and Medication Reconciliation Discharge Plan Discharge Items Patient Disposition: Hospice - Medical Facility Reason For Visit: PNEUMONIA, ACUTE RESP FAILURE WITH HYPOXIA Discharge Diagnosis: Acute respiratory failure with hypoxia Acute on chronic heart failure Idiopathic interstitial pneumonia Activity: Resume your previous activity Non-emergency contact: Primary Care Provider Call non-emergency contact if: you have any medication questions Follow-up/Referrals: Kendall Smith [place] [Primary Care Provider] - Diet: Carb Consistent or DM2 Addtl Attending Provider Instructions: Mrs Cardenas You came to the hospital with shortness of breath. You were extensively evaluated and managed in the hospital You were also evaluated by Distance Education Faculty Liaison and Photo Technician. Based on your multiple medical issues and clinical state, goals of care discussions were had with your family who ultimately agreed to proceed with comfort care only. Aspirin, warfarin, amiodarone, rosuvastatin were stopped Medication adjustments on your medication list were made in line with you and your daughter's wishes. Further adjustments can be made by the Hospice care agency at your nursing facility as appropriate. It was a pleasure taking care of you. Pending Studies at Discharge: No Stand-Alone Forms: My [employer]. Skilled Items Patient informed of condition?: Yes DNR: Yes Discharge Level of Care: Other Communicable Disease: No Discharge Prognosis: Other Lines: None Urinary Catheter: No Medications and DC Order Prescriptions: Continued Gemtesa 75 mg tablet 75 mg PO DAILY Qty: 90 3RF docusate sodium [Col-Rite] 100 mg capsule 100 mg PO HS glipizide 5 mg tablet 10 mg PO QAM cholecalciferol (vitamin D3) [Vitamin D3] 25 mcg (1,000 unit) Tablet 50 mcg PO QAM PreserVision AREDS-2 250-90-40-1 mg Capsule 1 tab PO BID ketoconazole 2 % Shampoo 1 ea TOPICAL 3XWK Rx Instructions: use in mornings MON, WED, & FRI. apply to scalp lesions acetaminophen [Tylenol Extra Strength] 500 mg Tablet 1,000 mg PO Q8H MDD 3-4 GRAMS/24 HOURS PRN (Reason: FEVER >100.5/MODERATE PAIN) ferrous sulfate 325 mg (65 mg iron) Tablet 325 mg PO QAM Saccharomyces boulardii 250 mg Capsule 250 mg PO DAILY cyanocobalamin (vitamin B-12) 1,000 mcg Tablet, Sublingual 1,000 mcg SUBLINGUAL DAILY menthol-zinc oxide [Calmoseptine] 0.44-20.6 % Ointment 1 applic TOPICAL QS Rx Instructions: APPLY TO COCCYX for scab sertraline 25 mg tablet 25 mg PO QAM TobraDex 0.3-0.1 % Ointment 1 applic OPB HS Systane (PF) 0.4-0.3 % Dropperette 1 drp OPB .Q 2HRS WHILE AWAKE omeprazole 20 mg capsule,delayed release(DR/EC) 20 mg PO QAM levothyroxine 112 mcg tablet 112 mcg PO DAILYBB metoprolol tartrate 25 mg tablet 12.5 mg PO BID melatonin 3 mg Capsule 3 mg PO HS loperamide 2 mg Tablet 2 mg PO Q8 PRN (Reason: Diarrhea) Rx Instructions: hold if constipation occurs psyllium Powder 1 ea PO DAILY Rx Instructions: 1 scoop daily..mix into at least 4 oz water or juice before administering Discontinued diclofenac sodium 1 % gel 1 ea topical Q12 PRN (Reason: joint pain) amiodarone 200 mg tablet 200 mg PO QAM mupirocin 2 % Ointment 1 applic TOPICAL HS Rx Instructions: apply to scalp aspirin [Aspirin Childrens] 81 mg Tablet,Chewable 81 mg PO 3XWK Rx Instructions: give 1 tablet in the morning of MON/WED/FRI rosuvastatin 10 mg tablet 10 mg PO HS loratadine 10 mg Tablet 10 mg PO Q OTHER DAY metronidazole 0.75 % cream 1 applic TOPICAL BID Rx Instructions: apply to face every day and evening shift Probiotic 3 billion cell capsule 3,000 mmu cells PO DAILY 7 Days Qty: 7 0RF Rx Instructions: administer with a meal warfarin 1 mg tablet 1.5 mg PO DAILY Qty: 45 0RF Patient Comments: Wednesday, Wednesday, , Wednesday, Wednesday Rx Instructions: [id number] Discharge Orders: Discharge Order (Routine); Ordered 12/02/23 Ordered By: Maryann Swan Admission Data Admit Date/Time: 11/19/23 11:21 Attending Provider: Maryann Swan I. Admit Provider: Edi Thomas Primary Care Provider: Kendall Smith [place] Other Providers: Kendall Smith [place]; Shameka Gilbert; Edi Thomas; Trent Hoffman; Natalie Connor; Nayana Singh; Gold Davidson; Alicia Turner Japheth E.; Ruddy Vila; Vanessa Jackson Other Interventions: Discharge Summary Assessment (RN) Last Done: 12/02/23 14:27
== END 2023-12-02 15:58 | disposition hospice, inpatient (51) | DRG 871 ==
LOC: ED 08:08 → 2S 11:21 → SUATTDRO 11:21 → 2S 12:44 → 3W 12-01 18:20